=== PATIENT | female | born 1965 | race Hispanic/Latino ===

== ENCOUNTER 2018-06-30 11:10 | Emergency (ER) | payer MEDICAID ==
[2018-06-30] MEDS ORDERED: AZITHROMYCIN 0 MG/0 ML BAG ONE (12:10)
[2018-06-30] MEDS ORDERED: CEFTRIAXONE/SWI 1gm 0 GM/0 ML SYR ONE (12:10)
--- NOTE | 2018-06-30 12:44 | RAD REPORT ---
EXAM DESCRIPTION: RAD - Chest Pa And Lat (2 Views) - 06/30/2018 12:38 pm CLINICAL HISTORY: Cough;Congestion Chest pain. COMPARISON: Chest Pa And Lat (2 Views) dated 12/24/2017; Chest Single View dated 09/18/2016; Chest Singl e View dated 07/24/2016; Chest Single View dated 05/25/2016 FINDINGS: Poorly defined infiltrate is suspected in the lingula, likely representing developing pneu monia. Elsewhere, the lungs are clear. The heart is normal in size. No displaced fractures. IMPRESSION: Developing lingular infiltrate/ pneumonia.
--- NOTE | 2018-06-30 12:50 | EDPHYS ---
Physician Documentation [facility] Name: Kathy Whyte Age: 52 yrs Sex: Female : 1965 Arrival Date: 06/30/2018 Time: 11:14 Bed 17 Private MD: James Burton ED Physician Valeriano Vickers HPI: 06/30 12:47 This 52 yrs old Female presents to ER via Ambulatory with complaints of Cough, kb Congestion. 12:47 The patient or guardian reports cough, that is intermittent, described as mild, with no kb sputum. Onset: The symptoms/episode began/occurred Onset: The symptoms/episode began/occurred 5 day(s) ago. 12:48 Severity of symptoms: At their worst the symptoms were mild, moderate, in the emergency kb department the symptoms are unchanged. Modifying factors: The symptoms are alleviated by nothing, the symptoms are aggravated by nothing. Associated signs and symptoms: Pertinent positives: chest pain, with cough, rhinorrhea, Pertinent negatives: diarrhea, ear ache, fever, nausea, sore throat, vomiting. The patient has not experienced similar symptoms in the past. The patient has not recently seen a physician. Pt reports cough and congestion that started 5 days ago. Now having pain in her ribs when she coughs. 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 - Social history:: Smoking status: unknown. - Ebola Screening: : Patient denies exposure to infectious person Patient denies travel to an Ebola-affected area in the 21 days before illness onset. ROS: 12:47 Constitutional: Negative for fever, chills, and weight loss, ENT: Negative for injury, kb pain, and discharge, Neck: Negative for injury, pain, and swelling, Abdomen/GI: Negative for abdominal pain, nausea, vomiting, diarrhea, and constipation, Back: Negative for injury and pain, MS/Extremity: Negative for injury and deformity, Skin: Negative for injury, rash, and discoloration, Neuro: Negative for headache, weakness, numbness, tingling, and seizure. 12:47 Cardiovascular: Positive for chest pain, with cough, Negative for edema, orthopnea, palpitations, paroxysmal nocturnal dyspnea. 12:47 Respiratory: Positive for cough, with no reported sputum, Negative for dyspnea on exertion, hemoptysis, orthopnea, pleurisy, shortness of breath, sputum production, wheezing. Exam: 12:47 Constitutional: This is a well developed, well nourished patient who is awake, alert, kb and in no acute distress. Head/Face: Normocephalic, atraumatic. Chest/axilla: Normal chest wall appearance and motion. Nontender with no deformity. No lesions are appreciated. Cardiovascular: Regular rate and rhythm with a normal S1 and S2. No gallops, murmurs, or rubs. Normal PMI, no JVD. No pulse deficits. Respiratory: Lungs have equal breath sounds bilaterally, clear to auscultation and percussion. No rales, rhonchi or wheezes noted. No increased work of breathing, no retractions or nasal flaring. Abdomen/GI: Soft, non-tender, with normal bowel sounds. No distension or tympany. No guarding or rebound. No evidence of tenderness throughout. Back: No spinal tenderness. No costovertebral tenderness. Full range of motion. Skin: Warm, dry with normal turgor. Normal color with no rashes, no lesions, and no evidence of cellulitis. MS/ Extremity: Pulses equal, no cyanosis. Neurovascular intact. Full, normal range of motion. Neuro: Awake and alert, GCS 15, oriented to person, place, time, and situation. Cranial nerves II-XII grossly intact. Motor strength 5/5 in all extremities. Sensory grossly intact. Cerebellar exam normal. Normal gait. Vital Signs: 11:37 BP 110 / 55; Pulse 73; Resp 20; Temp 97.3; Pulse Ox 99% on R/A; Weight 104.33 kg; ph Height 5 ft. 2 in. (157.48 cm); Pain 7/10; 11:37 Body Mass Index 42.07 (104.33 kg, 157.48 cm) ph MDM: 11:39 Patient medically screened. kb 12:47 Data reviewed: vital signs, nurses notes. Data interpreted: Pulse oximetry: on room air kb is 99 %. Interpretation: normal. Counseling: I had a detailed discussion with the patient and/or guardian regarding: the historical points, exam findings, and any diagnostic results supporting the discharge/admit diagnosis, lab results, radiology results, the need for outpatient follow up, a family practitioner, to return to the emergency department if symptoms worsen or persist or if there are any questions or concerns that arise at home. 06/30 11:55 Order name: Flu; Complete Time: 12:41 kb 06/30 11:55 Order name: Chest Pa And Lat (2 Views) XRAY; Complete Time: 12:45 kb Administered Medications: 12:08 Drug: DuoNeb (3:1) (2.5 mg - 0.5 mg) 3 ml Route: Nebulizer; ss 12:56 Follow up: Response: No adverse reaction; Marked relief of symptoms; Wheezing diminishedss 12:52 Drug: Zithromax 500 mg Route: PO; ss 12:57 Follow up: Response: Medication administered at discharge. Disposition: 17:02 Co-signature as Attending Physician, Valeriano Vickers MD available for consultation at ps1 all times . Disposition: 06/30/18 12:49 Discharged to Home. Impression: Pneumonia, unspecified organism. - Condition is Stable. - Discharge Instructions: Community-Acquired Pneumonia, Adult, [id number]. - Prescriptions for Zithromax 500 mg Oral Tablet - take 1 tablet by ORAL route once daily for 5 days; 5 tablet. - Medication Reconciliation Form, Thank You Letter, Antibiotic Education, Prescription Opioid Use form. - Follow up: Emergency Department; When: As needed; Reason: Worsening of condition. Follow up: James Burton, DO; When: 2 - 3 days; Reason: Recheck today's complaints, Continuance of care, Re-evaluation by your physician. Signatures: Dispatcher [employer] Anna Marie Mcduffie, Faustina Milton RN RN ss Hall, Patricia, RN RN ph Singer, Phillip, MD MD ps1 Corrections: (The following items were deleted from the chart) 12:49 12:47 Onset: The symptoms/episode began/occurred kb kb 13:09 12:49 06/30/2018 12:49 Discharged to Home. Impression: Pneumonia, unspecified organism. ss Condition is Stable. Forms are Medication Reconciliation Form, Thank You Letter, Antibiotic Education, Prescription Opioid Use. Follow up: Emergency Department; When: As needed; Reason: Worsening of condition. Follow up: James Burton; When: 2 - 3 days; Reason: Recheck today's complaints, Continuance of care, Re-evaluation by your physician. kb
--- NOTE | 2018-06-30 12:50 | ER ---
Nurse's Notes [facility] Name: Kathy Whyte Age: 52 yrs Sex: Female : 1965 Arrival Date: 06/30/2018 Time: 11:14 Bed 17 Private MD: James Burton Diagnosis: Pneumonia, unspecified organism Presentation: 06/30 11:36 Presenting complaint: Patient states: Cough and congestion since Thurs, also c/ rib ph pain and SOB, denies fever, N/V/D. Transition of care: patient was not received from another setting of care. Onset of symptoms was June 30, 2018. Risk Assessment: Do you want to hurt yourself or someone else? Patient reports no desire to harm self or others. Initial Sepsis Screen: Does the patient meet any 2 criteria? No. Patient's initial sepsis screen is negative. Does the patient have a suspected source of infection? No. Patient's initial sepsis screen is negative. Care prior to arrival: None. 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 - Social history:: Smoking status: unknown. - Ebola Screening: : Patient denies exposure to infectious person Patient denies travel to an Ebola-affected area in the 21 days before illness onset. Screenin:25 Abuse screen: Denies threats or abuse. Denies injuries from another. Nutritional ss screening: No deficits noted. Tuberculosis screening: Never had TB. Fall Risk None identified. Assessment: 12:00 General: Appears comfortable, Behavior is calm, cooperative, quiet. General: Reports ss feeling ill for > 3 days, Denies fever. Pain: Complains of pain in chest wall Pain currently is 7 out of 10 on a pain scale. Quality of pain is described as tender, Is episodic. Neuro: Level of Consciousness is awake, alert, obeys commands, Oriented to person, place, time, situation. Cardiovascular: Heart tones S1 S2 present Capillary refill < 3 seconds is brisk in bilateral fingers Patient's skin is warm and dry. Respiratory: Airway is patent Respiratory effort is even, unlabored, Respiratory pattern is regular, symmetrical, Breath sounds with wheezes bilaterally. Respiratory: Reports shortness of breath on exertion cough that is hacking, persistent since x 5 days. GI: Patient currently denies abdominal pain, diarrhea, nausea, vomiting. : No signs and/or symptoms were reported regarding the genitourinary system. EENT: Oral mucosa is moist. Throat is clear Reports nasal congestion. Derm: Skin is pink, warm \T\ dry. normal. 12:25 Reassessment: Patient appears in no apparent distress at this time. Patient is alert, ss oriented x 3, equal unlabored respirations, skin warm/dry/pink. Vital Signs: 11:37 BP 110 / 55; Pulse 73; Resp 20; Temp 97.3; Pulse Ox 99% on R/A; Weight 104.33 kg; ph Height 5 ft. 2 in. (157.48 cm); Pain 7/10; 11:37 Body Mass Index 42.07 (104.33 kg, 157.48 cm) ph ED Course: 11:14 Patient arrived in ED. sb2 11:14 James Burton DO is Private Physician. sb2 11:37 Triage completed. ph 11:37 Arm band placed on. ph 11:39 Anna Marie Raya [facility]-C [facility]. kb 11:39 Valeriano Vickers MD is Attending Physician. kb 11:58 Faustina White, PRASHANT is Primary Nurse. ss 12:25 Patient has correct armband on for positive identification. Bed in low position. Call ss light in reach. Side rails up X 1. teletypesetter monitor on. Pulse ox on. NIBP on. 12:25 Flu Sent. ss 12:35 Chest Pa And Lat (2 Views) XRAY In Process Unspecified. EDMS 12:49 James Burton DO is Referral Physician. kb 12:57 No provider procedures requiring assistance completed. Patient did not have IV access ss during this emergency room visit. Administered Medications: 12:08 Drug: DuoNeb (3:1) (2.5 mg - 0.5 mg) 3 ml Route: Nebulizer; ss 12:56 Follow up: Response: No adverse reaction; Marked relief of symptoms; Wheezing diminishedss 12:52 Drug: Zithromax 500 mg Route: PO; 12:57 Follow up: Response: Medication administered at discharge. Outcome: 12:49 Discharge ordered by . kb 12:57 Condition: improved ss 12:57 Discharge instructions given to patient, Instructed on discharge instructions, follow up and referral plans. medication usage, Demonstrated understanding of instructions, follow-up care, medications, Prescriptions given X 1. 13:09 Patient left the ED. Signatures: Dispatcher [employer] EDMS Anna Marie Raya, PRINTED CIRCUIT BOARD ASSEMBLY REPAIRER-C GREGORIA-Faustina Suazo, PRASHANT RN Emily Allen RN RN [facility] [place] sb2
[2018-06-30] MEDS ORDERED: AZITHROMYCIN 250 MG TAB ONE (12:58)
[2018-06-30 13:21] VITALS: BP 110/55; TEMP 97.3; O2SAT 99
== END 2018-06-30 13:09 | disposition home or self-care (01) ==
LOC: ER 11:10
DX: J18.9 Pneumonia, unspecified organism (principal)
CPT/HCPCS: 71046; 87804; 94640; 99285; J0456; J0696

== ENCOUNTER 2018-11-30 15:30 | Emergency (ER) | payer MEDICAID ==
[2018-11-30] MEDS ORDERED: ONDANSETRON 4 MG/2 ML VIAL ONE (17:17)
[2018-11-30] MEDS ORDERED: FENTANYL CITR 100 MCG/2 ML ONE (17:17)
[2018-11-30] MEDS ORDERED: NA CHLORIDE 0.9% 1,000 ML ONE (17:17)
[2018-11-30 18:05] LABS: Absolute Lymphocytes (CBC) 1.3 K/uL (0.7-4.9); Absolute Monocytes 0.6 K/uL (0.1-1.3); Absolute Neutrophil 4.8 K/uL (1.8-8.0); Basophils % 0.3 % (0-1.3); Eosinophils % 0.8 % (0-4.4); Hematocrit 48.9 % (36.0-45.0); Lymphocytes % 18.8 % (15.3-44.8); MPV 8.1 fL (7.6-11.3); Monocytes % 8.9 % (3.3-12.3); RBC Red Blood Cell Count 5.71 M/uL (3.86-4.86)
[2018-11-30 18:56] LABS: ALT/SGPT 166 U/L (12-78); AST/SGOT 84 U/L (15-37); Albumin 3.3 g/dL (3.4-5.0); Alkaline Phosphatase 156 U/L (45-117); BUN Blood Urea Nitrogen 4 mg/dL (7-18); Bicarbonate 25 mmol/L (21-32); Bilirubin Direct < 0.1 mg/dL (0-0.2); Bilirubin Total 0.5 mg/dL (0.2-1.0); Glucose Level 108 mg/dL (74-106); Lipase 72 U/L (73-393); Potassium 3.4 mmol/L (3.5-5.1); Protein, Total 7.4 g/dL (6.4-8.2); Sodium Level 144 mmol/L (136-145)
[2018-11-30 19:32] LABS: Barbiturates NEGATIVE (NEGATIVE); Benzodiazepines NEGATIVE (NEGATIVE); Cocaine NEGATIVE (NEGATIVE); METHAMPHETAM NEGATIVE (NEGATIVE); Methadone NEGATIVE (NEGATIVE); Opiates NEGATIVE (NEGATIVE); Phencyclidine NEGATIVE (NEGATIVE); THC Cannibis NEGATIVE (NEGATIVE)
[2018-11-30 20:13] LABS: Urine Blood TRACE (NEG); Urine Glucose NEGATIVE (NEG); Urine Protein 2+ (NEG)
--- NOTE | 2018-11-30 20:19 | RAD REPORT ---
EXAM DESCRIPTION: [facility] Single View11/30/2018 8:12 pm CLINICAL HISTORY: cough COMPARISON: June 2018 FINDINGS: The lungs appear clear of acute infiltrate. The heart is normal size IMPRESSION: No acute abnormalities displayed
[2018-11-30 20:24] LABS: Urine Bacteria >50 /HPF (<20); Urine Culture Reflex Order REFLEXED; Urine RBC <5 /HPF (NONE SEEN)
--- NOTE | 2018-11-30 21:07 | EDPHYS ---
Physician Documentation [facility] Name: Kathy Whyte Age: 53 yrs Sex: Female : 1965 Arrival Date: 11/30/2018 Time: 15:31 Bed 5 Private MD: James Burton ED Physician Ike Liao HPI: 12/01 10:50 This 53 yrs old Female presents to ER via Ambulatory with complaints of gs Vomiting/Diarrhea. 10:50 Onset: The symptoms/episode began/occurred 3 day(s) ago, and became persistent. gs Possible causes: unknown. The symptoms are aggravated by nothing. The symptoms are alleviated by nothing. Associated signs and symptoms: Pertinent positives: fever. Severity of symptoms: At their worst the symptoms were severe in the emergency department the symptoms have improved markedly. The patient has experienced similar episodes in the past, a few times. The patient has not recently seen a physician. 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 - Social history:: Smoking status: Patient/guardian denies using tobacco. - Ebola Screening: : Patient denies exposure to infectious person Patient denies travel to an Ebola-affected area in the 21 days before illness onset. ROS: 12/01 10:50 All other systems are negative. gs Exam: 11/30 21:47 ECG was reviewed by the Attending Physician. gs 12/01 10:50 Head/Face: Normocephalic, atraumatic. Eyes: Pupils equal round and reactive to light, gs extra-ocular motions intact. Lids and lashes normal. Conjunctiva and sclera are non-icteric and not injected. Cornea within normal limits. Periorbital areas with no swelling, redness, or edema. ENT: Nares patent. No nasal discharge, no septal abnormalities noted. Tympanic membranes are normal and external auditory canals are clear. Oropharynx with no redness, swelling, or masses, exudates, or evidence of obstruction, uvula midline. Mucous membranes moist. Neck: Trachea midline, no thyromegaly or masses palpated, and no cervical lymphadenopathy. Supple, full range of motion without nuchal rigidity, or vertebral point tenderness. No Meningismus. Chest/axilla: Normal chest wall appearance and motion. Nontender with no deformity. No lesions are appreciated. Respiratory: Lungs have equal breath sounds bilaterally, clear to auscultation and percussion. No rales, rhonchi or wheezes noted. No increased work of breathing, no retractions or nasal flaring. Back: No spinal tenderness. No costovertebral tenderness. Full range of motion. Skin: Warm, dry with normal turgor. Normal color with no rashes, no lesions, and no evidence of cellulitis. MS/ Extremity: Pulses equal, no cyanosis. Neurovascular intact. Full, normal range of motion. Neuro: Awake and alert, GCS 15, oriented to person, place, time, and situation. Cranial nerves II-XII grossly intact. Motor strength 5/5 in all extremities. Sensory grossly intact. Cerebellar exam normal. Normal gait. Constitutional: The patient appears alert, awake, uncomfortable. Cardiovascular: Rate: tachycardic, Rhythm: regular, Pulses: no pulse deficits are appreciated, Heart sounds: normal. Abdomen/GI: Inspection: distension, is not seen, Palpation: abdomen is soft and non-tender, in all quadrants. Vital Signs: 11/30 16:00 BP 142 / 96; Pulse 129; Resp 21; Temp 99.1(TE); Pulse Ox 97% on R/A; Weight 104.33 kg; ss Height 5 ft. 3 in. (160.02 cm); Pain 8/10; 16:46 BP 121 / 65; Pulse 118; Resp 12; Pulse Ox 100% on R/A; tw2 17:47 BP 145 / 99; Pulse 112; Resp 21; Pulse Ox 98% on R/A; sv 18:24 BP 141 / 71; Pulse 106 MON; Resp 21; Pulse Ox 98% ; sv 19:26 BP 144 / 81; Pulse 104; Resp 19; Pulse Ox 99% on R/A; ea 20:00 BP 147 / 86; Pulse 101; Resp 19; Pulse Ox 99% on R/A; ea 21:23 BP 142 / 87; Pulse 100; Resp 18; Pulse Ox 99% ; ea 16:00 Body Mass Index 40.74 (104.33 kg, 160.02 cm) ss 18:24 Sinus tachycardia sv MDM: 16:59 Patient medically screened. 12/01 10:50 Differential diagnosis: Nonspecific abd pain, viral gastroenteritis, gastroenteritis, gs dehydration. Data reviewed: vital signs, nurses notes, lab test result(s), EKG, radiologic studies. Counseling: I had a detailed discussion with the patient and/or guardian regarding: the historical points, exam findings, and any diagnostic results supporting the discharge/admit diagnosis, lab results, the need for outpatient follow up. Response to treatment: the patient's symptoms have markedly improved after treatment, the patient's condition has returned to base line, patient is well hydrated. hr down. 11/30 17:01 Order name: Urine Drug Screen; Complete Time: 19:40 11/30 17:01 Order name: Urine Microscopic Only; Complete Time: 20:27 11/30 17:01 Order name: Basic Metabolic Panel; Complete Time: 19:40 11/30 17:01 Order name: CBC with Diff; Complete Time: 19:40 11/30 17:01 Order name: Hepatic Function; Complete Time: 19:40 11/30 17:01 Order name: Lipase; Complete Time: 19:40 11/30 17:01 Order name: Urine Test (obtain specimen); Complete Time: 21:14 11/30 18:07 Order name: EKG Electrocardiogram; Complete Time: 18:08 [facility] 11/30 19:11 Order name: Urine Dipstick--Ancillary (enter results); Complete Time: 20:27 ak 11/30 19:41 Order name: XRAY CXR (1 view); Complete Time: 20:27 11/30 20:25 Order name: Urine Culture [facility] 11/30 17:01 Order name: Urine Dipstick-Ancillary (obtain specimen); Complete Time: 21:14 11/30 17:01 Order name: IV Saline Lock; Complete Time: 17:48 11/30 17:01 Order name: Labs collected and sent; Complete Time: 17:48 EC/15 21:47 Rate is 119 beats/min. Rhythm is regular. [place] interval is normal. QRS interval is gs prolonged. T waves are Normal. No ST changes noted. Clinical impression: Abnormal EKG without significant change. Interpreted by me. Administered Medications: 17:44 Drug: NS 0.9% 1000 ml Route: IV; Rate: 1 bolus; Site: left forearm; sv 20:00 Follow up: Response: No adverse reaction; IV Status: Completed infusion; IV Intake: ea 1000ml 17:45 Drug: Zofran 4 mg Route: IVP; Site: left forearm; sv 18:00 Follow up: Response: No adverse reaction sv 17:45 Drug: fentaNYL (PF) 50 mcg Route: IVP; Site: left forearm; sv 18:00 Follow up: Response: No adverse reaction sv Disposition: 11/30/18 21:06 Discharged to Home. Impression: Vomiting, Dehydration. - Condition is Stable. - Discharge Instructions: Dehydration, Adult, Nausea and Vomiting, Adult. - Prescriptions for Zofran 4 mg Oral Tablet - take 1 tablet by ORAL route every 12 hours As needed; 6 tablet. - Medication Reconciliation Form, Thank You Letter, Antibiotic Education, Prescription Opioid Use form. - Follow up: Private Physician; When: 1 - 2 days; Reason: Re-evaluation by your physician. Signatures: Dispatcher [employer] EDMS Francisca Ruvalcaba RN RN sv Smirch, Shelby, RN RN ss Antunez, Elena, RN RN ea Starr, Gregory, MD MD gs Corrections: (The following items were deleted from the chart) 21:38 21:06 11/30/2018 21:06 Discharged to Home. Impression: Vomiting; Dehydration. Condition ea is Stable. Forms are Medication Reconciliation Form, Thank You Letter, Antibiotic Education, Prescription Opioid Use. Follow up: Private Physician; When: 1 - 2 days; Reason: Re-evaluation by your physician. gs
--- NOTE | 2018-11-30 21:07 | ER ---
Nurse's Notes [facility] Name: Kathy Whyte Age: 53 yrs Sex: Female : 1965 Arrival Date: 11/30/2018 Time: 15:31 Bed 5 Private MD: James Burton Diagnosis: Vomiting;Dehydration Presentation: 11/30 16:01 Presenting complaint: Patient states: abd pain, N/V/D x 4 days. Pt also reports racing ss pulse. Transition of care: patient was not received from another setting of care. Onset of symptoms was November 26, 2018. Risk Assessment: Do you want to hurt yourself or someone else? Patient reports no desire to harm self or others. Initial Sepsis Screen:. Care prior to arrival: None. 16:01 Acuity: ARI 2 ss 16:01 Method Of Arrival: Ambulatory ss 16:38 Initial Sepsis Screen: Does the patient meet any 2 criteria? RR > 20 per min. HR > 90 tw2 bpm. Yes Does the patient have a suspected source of infection? No. Patient's initial sepsis screen is negative. If YES to both, name of provider notified: Ike Liao MD. Triage Assessment: 16:44 General: Appears in no apparent distress. Respiratory: Onset: The symptoms/episode tw2 began/occurred 4 days ago, the patient has moderate shortness of breath. Respiratory: Reports shortness of breath. 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 - Social history:: Smoking status: Patient/guardian denies using tobacco. - Ebola Screening: : Patient denies exposure to infectious person Patient denies travel to an Ebola-affected area in the 21 days before illness onset. Screenin:37 Abuse screen: Denies threats or abuse. Nutritional screening: No deficits noted. tw2 Tuberculosis screening: No symptoms or risk factors identified. Fall Risk None identified. Assessment: 16:05 General: Appears in no apparent distress. obese, Behavior is calm, cooperative, tw2 appropriate for age. Pain: Complains of pain in abdomen. Neuro: Level of Consciousness is awake, alert, obeys commands, Oriented to person, place, time, situation. Cardiovascular: Heart tones S1 S2 Patient's skin is warm and dry. Rhythm is sinus tachycardia. Respiratory: Reports shortness of breath Airway is patent Respiratory effort is even, unlabored, Respiratory pattern is regular, symmetrical, Breath sounds are clear bilaterally. GI: Abdomen is round non-distended, obese, Bowel sounds present X 4 quads. Reports diarrhea, vomiting. : No signs and/or symptoms were reported regarding the genitourinary system. EENT: No signs and/or symptoms were reported regarding the EENT system. Derm: No signs and/or symptoms reported regarding the dermatologic system. Musculoskeletal: Range of motion: intact in all extremities. 16:46 Reassessment: Patient appears in no apparent distress at this time. No changes from tw2 previously documented assessment. Patient and/or family updated on plan of care and expected duration. Pain level reassessed. Patient is alert, oriented x 3, equal unlabored respirations, skin warm/dry/pink. 16:46 Reassessment: no orders at this time. tw2 17:35 Reassessment: Patient appears in no apparent distress at this time. No changes from sv previously documented assessment. Patient and/or family updated on plan of care and expected duration. Pain level reassessed. Patient is alert, oriented x 3, equal unlabored respirations, skin warm/dry/pink. 19:17 General: Appears in no apparent distress. Behavior is calm, cooperative, appropriate ea for age. Pain: Denies pain. Neuro: Level of Consciousness is awake, alert, obeys commands, Oriented to person, place, time, situation. Cardiovascular: Heart tones S1 S2 present Patient's skin is warm and dry. Respiratory: Airway is patent Respiratory effort is even, unlabored, Respiratory pattern is regular, symmetrical, Breath sounds are clear bilaterally. GI: Abdomen is round non-distended. : No signs and/or symptoms were reported regarding the genitourinary system. Derm: No signs and/or symptoms reported regarding the dermatologic system. 20:55 Reassessment: Patient and/or family updated on plan of care and expected duration. Pain ea level reassessed. Patient is alert, oriented x 3, equal unlabored respirations, skin warm/dry/pink. 21:29 Reassessment: Patient and/or family updated on plan of care and expected duration. Pain ea level reassessed. Patient is alert, oriented x 3, equal unlabored respirations, skin warm/dry/pink. Discharge instructions given to patient, verbalized the understanding of instruction. 21:36 Reassessment: Patient and/or family updated on plan of care and expected duration. Pain ea level reassessed. Patient is alert, oriented x 3, equal unlabored respirations, skin warm/dry/pink. Pt left ED ambulatory tolerating well, pt reports significant other awaiting for her in the lobby. Vital Signs: 16:00 BP 142 / 96; Pulse 129; Resp 21; Temp 99.1(TE); Pulse Ox 97% on R/A; Weight 104.33 kg; ss Height 5 ft. 3 in. (160.02 cm); Pain 8/10; 16:46 BP 121 / 65; Pulse 118; Resp 12; Pulse Ox 100% on R/A; tw2 17:47 BP 145 / 99; Pulse 112; Resp 21; Pulse Ox 98% on R/A; sv 18:24 BP 141 / 71; Pulse 106 MON; Resp 21; Pulse Ox 98% ; sv 19:26 BP 144 / 81; Pulse 104; Resp 19; Pulse Ox 99% on R/A; ea 20:00 BP 147 / 86; Pulse 101; Resp 19; Pulse Ox 99% on R/A; ea 21:23 BP 142 / 87; Pulse 100; Resp 18; Pulse Ox 99% ; ea 16:00 Body Mass Index 40.74 (104.33 kg, 160.02 cm) ss 18:24 Sinus tachycardia sv ED Course: 15:31 Patient arrived in ED. as 15:32 James Burton DO is Private Physician. as 16:02 Triage completed. ss 16:03 Arm band placed on right wrist. ss 16:05 Bed in low position. Adult w/ patient. front desk monitor on. Pulse ox on. NIBP on. tw2 16:21 Francisca Ruvalcaba, PRASHANT is Primary Nurse. sv 16:32 Ike Liao MD is Attending Physician. gs 16:37 Cristina Mixon, PRASHANT is Primary Nurse. tw2 16:39 EKG done, by power tool repair technician. reviewed by Lionel Rodrigez MD. sm3 17:35 Missed attempt(s): 22 gauge in right forearm. Bleeding controlled, band aid applied, sv catheter tip intact. 17:40 Initial lab(s) drawn, by me, sent to lab. Inserted saline lock: 24 gauge in left sv forearm, using aseptic technique. Blood collected. Flushed left forearm with 5 ml normal saline. 19:02 Report given to PRASHANT Mcclain and PRASHANT Rodriguez. tw2 19:09 Primary Nurse role handed off by Cristina Mixon RN tw2 19:17 Jennifer Johnson RN is Primary Nurse. ea 20:12 XRAY CXR (1 view) In Process Unspecified. EDMS 21:21 No provider procedures requiring assistance completed. ea 21:28 IV discontinued, intact, bleeding controlled, No redness/swelling at site. Pressure ea dressing applied. Administered Medications: 17:44 Drug: NS 0.9% 1000 ml Route: IV; Rate: 1 bolus; Site: left forearm; sv 20:00 Follow up: Response: No adverse reaction; IV Status: Completed infusion; IV Intake: ea 1000ml 17:45 Drug: Zofran 4 mg Route: IVP; Site: left forearm; sv 18:00 Follow up: Response: No adverse reaction sv 17:45 Drug: fentaNYL (PF) 50 mcg Route: IVP; Site: left forearm; sv 18:00 Follow up: Response: No adverse reaction sv Intake: 20:00 IV: 1000ml; Total: 1000ml. ea Outcome: 21:06 Discharge ordered by . 21:28 Discharge instructions given to patient, Instructed on discharge instructions, follow ea up and referral plans. medication usage, Demonstrated understanding of instructions, follow-up care, medications, Prescriptions given X 1. 21:36 Discharged to home ambulatory, with significant other. ea 21:36 Condition: improved 21:38 Patient left the ED. ea Signatures: Dispatcher [employer] EDMS Francisca Ruvalcaba RN RN sv Martinez, Amelia as Smirch, Shelby, RN RN Cristina Mixon RN RN tw2 Jennifer Johnson RN RN ea Starr, Gregory, MD MD Adela Felix 3
[2018-11-30 21:54] VITALS: TEMP 99.1
[2018-11-30 21:58] VITALS: O2SAT 99
[2018-11-30 22:01] VITALS: BP 142/87
--- NOTE | 2018-12-01 05:50 | EKG ---
Test Date: 2018-11-30 Test Time: 16:15:05 Industrial Safety Engineer: DIPTI MEASUREMENT RESULTS: Intervals: Rate: 119 FL: 158 QRSD: 110 QT: 320 QTc: 450 [place]: P: 59 FL: 158 QRS: 54 T: 19 INTERPRETIVE STATEMENTS: Sinus tachycardia Right bundle branch block Abnormal ECG Compared to ECG 09/18/2016 19:13:01 Sinus rhythm no longer present Electronically Signed On 12-01-18 05:50:30 CDT by Obi Bae
== END 2018-11-30 21:38 | disposition home or self-care (01) ==
LOC: ER 15:30
DX: E86.0 Dehydration (principal); R11.10 Vomiting, unspecified; R00.0 Tachycardia, unspecified; I45.10 Unspecified right bundle-branch block; R94.31 Abnormal electrocardiogram [ECG] [EKG]
CPT/HCPCS: 36415; 71045; 80048; 80076; 80307; 81003; 81015; 83690; 85025; 87086; 87088; 93005; 96361; 96374; 96375; 99285; J2405; J3010; J7030

== ENCOUNTER 2018-12-01 11:50 | Inpatient (IN) | payer MEDICAID ==
--- NOTE | 2018-12-01 12:53 | EDPHYS ---
Physician Documentation [facility] Name: Kathy Whyte Age: 53 yrs Sex: Female : 1965 Arrival Date: 12/01/2018 Time: 11:52 Bed 17 Private MD: Micheal [facility] ED Physician Lionel Rodrigez HPI: 12/01 12:47 This 53 yrs old Female presents to ER via Ambulatory with complaints of Blood myra Pressure Problem. 12:47 The patient presents with abdominal pain in the upper abdomen, in the lower abdomen. myra Onset: The symptoms/episode began/occurred 2 day(s) ago. The patient presents to the emergency department with nausea, vomiting, diarrhea, that is continuous. Onset: The symptoms/episode began/occurred 2 day(s) ago. Possible causes: unknown. The symptoms are aggravated by movement, The symptoms are alleviated by nothing. remaining still. Associated signs and symptoms: Pertinent positives: nausea, vomiting. Modifying factors: The symptoms are alleviated by nothing. 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 - Social history:: Smoking status: . - Family history:: not pertinent. - Ebola Screening: : Patient denies travel to an Ebola-affected area in the 21 days before illness onset. ROS: 12:47 Constitutional: Negative for fever, chills, and weight loss, Eyes: Negative for injury, myra pain, redness, and discharge, ENT: Negative for injury, pain, and discharge, Neck: Negative for injury, pain, and swelling, Cardiovascular: Negative for chest pain, palpitations, and edema, Respiratory: Negative for shortness of breath, cough, wheezing, and pleuritic chest pain, Back: Negative for injury and pain, : Negative for injury, bleeding, discharge, and swelling, MS/Extremity: Negative for injury and deformity, Skin: Negative for injury, rash, and discoloration, Neuro: Negative for headache, weakness, numbness, tingling, and seizure, Psych: Negative for depression, anxiety, suicide ideation, homicidal ideation, and hallucinations, Allergy/Immunology: Negative for hives, rash, and allergies, Endocrine: Negative for neck swelling, polydipsia, polyuria, polyphagia, and marked weight changes, Hematologic/Lymphatic: Negative for swollen nodes, abnormal bleeding, and unusual bruising. 12:47 Abdomen/GI: Positive for nausea and vomiting, diarrhea. Exam: 12:47 Constitutional: This is a well developed, well nourished patient who is awake, alert, myra and in no acute distress. Head/Face: Normocephalic, atraumatic. Eyes: Pupils equal round and reactive to light, extra-ocular motions intact. Lids and lashes normal. Conjunctiva and sclera are non-icteric and not injected. Cornea within normal limits. Periorbital areas with no swelling, redness, or edema. ENT: Nares patent. No nasal discharge, no septal abnormalities noted. Tympanic membranes are normal and external auditory canals are clear. Oropharynx with no redness, swelling, or masses, exudates, or evidence of obstruction, uvula midline. Mucous membranes moist. Neck: Trachea midline, no thyromegaly or masses palpated, and no cervical lymphadenopathy. Supple, full range of motion without nuchal rigidity, or vertebral point tenderness. No Meningismus. Chest/axilla: Normal chest wall appearance and motion. Nontender with no deformity. No lesions are appreciated. Cardiovascular: Regular rate and rhythm with a normal S1 and S2. No gallops, murmurs, or rubs. Normal PMI, no JVD. No pulse deficits. Respiratory: Lungs have equal breath sounds bilaterally, clear to auscultation and percussion. No rales, rhonchi or wheezes noted. No increased work of breathing, no retractions or nasal flaring. Abdomen/GI: Soft, non-tender, with normal bowel sounds. No distension or tympany. No guarding or rebound. No evidence of tenderness throughout. Back: No spinal tenderness. No costovertebral tenderness. Full range of motion. Skin: Warm, dry with normal turgor. Normal color with no rashes, no lesions, and no evidence of cellulitis. MS/ Extremity: Pulses equal, no cyanosis. Neurovascular intact. Full, normal range of motion. Neuro: Awake and alert, GCS 15, oriented to person, place, time, and situation. Cranial nerves II-XII grossly intact. Motor strength 5/5 in all extremities. Sensory grossly intact. Cerebellar exam normal. Normal gait. Psych: Awake, alert, with orientation to person, place and time. Behavior, mood, and affect are within normal limits. Vital Signs: 11:58 BP 79 / 41; Pulse 87; Resp 18; Temp 99.6(O); Pulse Ox 98% on R/A; Weight 104.33 kg; tw2 Height 5 ft. 3 in. (160.02 cm); Pain 0/10; 12:52 BP 89 / 71 Supine; Pulse 82; Resp 17; Pulse Ox 99% on R/A; tw2 14:00 BP 80 / 47 Supine; Pulse 76; Resp 17; Pulse Ox 100% on R/A; tw2 15:14 BP 86 / 60 Supine; Pulse 79; Resp 17; Pulse Ox 100% on R/A; tw2 16:28 BP 84 / 64 Supine (man/); Pulse 83; Resp 17; Pulse Ox 100% ; tw2 11:58 Body Mass Index 40.74 (104.33 kg, 160.02 cm) tw2 11:58 provider aware, pt is asymptomatic at this time,nad tw2 12:52 provider aware of bp, pt is asymptomatic at this time, nad tw2 14:00 provider aware, pt is asymptomatic at this time, nad tw2 15:14 provider aware, pt is asymptomatic at this time, nad tw2 Procedures: 15:40 Peripheral line: by aseptic technique a peripheral line was placed in the right myra external jugular vein, left external jugular vein, failed. MDM: 12:07 Patient medically screened. [facility] 12:50 Data reviewed: vital signs, nurses notes, lab test result(s), EKG, radiologic studies, [facility] plain films. 12/01 12:35 Order name: Basic Metabolic Panel; Complete Time: 15:04 [facility] 12/01 12:35 Order name: CBC with Diff [facility] 12/01 12:35 Order name: LFT's; Complete Time: 15:04 [facility] 12/01 12:35 Order name: Magnesium; Complete Time: 15:04 [facility] 12/01 12:35 Order name: NT PRO-BNP; Complete Time: 15:04 [facility] 12/01 12:35 Order name: PT-INR; Complete Time: 14:15 [facility] 12/01 12:35 Order name: Troponin (emerg Dept Use Only); Complete Time: 15:04 [facility] 12/01 12:35 Order name: XRAY Chest (1 view) [facility] 12/01 12:35 Order name: Lipase; Complete Time: 15:04 [facility] 12/01 12:35 Order name: UDS [facility] 12/01 12:35 Order name: Urine Culture [facility] 12/01 12:50 Order name: Stool Culture [facility] 12/01 12:50 Order name: Fecal Leukocyte Stain [facility] 12/01 14:27 Order name: RAD; Complete Time: 14:47 EDIL 12/01 12:35 Order name: EKG; Complete Time: 12:36 [facility] 12/01 12:35 Order name: Cardiac monitoring; Complete Time: 12:51 [facility] 12/01 12:35 Order name: EKG - Nurse/Tech; Complete Time: 12:51 [facility] 12/01 12:35 Order name: O2 Per Protocol; Complete Time: 12:52 [facility] 12/01 12:35 Order name: O2 Sat Monitoring; Complete Time: 13:03 [facility] 12/01 14:48 Order name: CT; Complete Time: 15:04 EDIL 12/01 14:29 Order name: Labs - recollect needed; Complete Time: 15:55 em1 Administered Medications: 14:00 Drug: Phenergan 12.5 mg Route: IVP; Site: left upper arm; tw2 15:07 Follow up: Response: No adverse reaction tw2 14:02 Drug: Pepcid 20 mg Route: IVP; Site: left upper arm; tw2 15:07 Follow up: Response: No adverse reaction tw2 14:04 Drug: NS 0.9% 1000 ml Route: IV; Rate: 1 bolus; Site: left upper arm; tw2 15:30 Follow up: Response: No adverse reaction; IV Status: Completed infusion; IV Intake: tw2 1000ml 16:20 Follow up: Response: No adverse reaction; IV Intake: 1000ml tw2 15:35 Drug: Potassium Chloride 20 mEq Route: IV; Rate: per protocol; Site: right upper arm; tw2 16:31 Follow up: IV Status: Infusion continued upon admission tw2 15:35 Drug: NS 0.9% with KCl 20 mEq/L 1000 ml Route: IV; Rate: 125 ml/hr; Site: right jugular;tw2 16:30 Follow up: IV Status: Infusion continued upon admission tw2 15:35 Drug: Magnesium Sulfate 2 grams Route: IVPB; Infused Over: 2 hrs; Site: right jugular; tw2 16:30 Follow up: IV Status: Infusion continued upon admission tw2 15:55 Drug: Potassium Chloride 20 mEq Route: IV; Rate: per protocol; Site: right jugular; tw2 16:29 Follow up: IV Status: Infusion continued upon admission tw2 15:56 Drug: NS 0.9% 1000 ml Route: IV; Rate: 1 bolus; Site: right upper arm; tw2 16:30 Follow up: IV Status: Infusion continued upon admission tw2 Disposition: 12/01/18 12:52 Hospitalization ordered by Jonny Garduno for Inpatient Admission. Preliminary diagnosis are Vomiting, Diarrhea, unspecified, Hypotension, Weakness, Hypomagnesemia, Hypokalemia. - Bed requested for Telemetry/MedSurg (Inpatient). - Status is Inpatient Admission. tw2 - Condition is Fair. - Problem is new. - Symptoms have improved. UTI on Admission? No Signatures: Dispatcher [employer] EDMS Lionel Rodrigez MD MD cha Martinez, Eric em1 Marlon Ennis RN RN Cristina Mixon RN RN tw2 Corrections: (The following items were deleted from the chart) 12:52 12:52 Hospitalization Ordered by Jonny Garduno MD for Observation. Preliminary diagnosis myra is Vomiting; Diarrhea, unspecified; Hypotension; Weakness. Bed requested for Telemetry/MedSurg (observation). Status is Observation. Condition is Fair. Problem is new. Symptoms have improved. UTI on Admission? No. myra 14:41 12:52 12/01/2018 12:52 Hospitalization Ordered by Jonny Garduno MD for Inpatient em1 Admission. Preliminary diagnosis is Vomiting; Diarrhea, unspecified; Hypotension; Weakness. Bed requested for Telemetry/MedSurg (Inpatient). Status is Inpatient Admission. Condition is Fair. Problem is new. Symptoms have improved. UTI on Admission? No. myra 15:06 14:41 12/01/2018 12:52 Hospitalization Ordered by Jonny Garduno MD for Inpatient myra Admission. Preliminary diagnosis is Vomiting; Diarrhea, unspecified; Hypotension; Weakness. Bed requested for Telemetry/MedSurg (Inpatient). Status is Inpatient Admission. Condition is Fair. Problem is new. Symptoms have improved. UTI on Admission? No. em1 16:33 15:06 12/01/2018 12:52 Hospitalization Ordered by Jonny Garduno MD for Inpatient tw2 Admission. Preliminary diagnosis is Vomiting; Diarrhea, unspecified; Hypotension; Weakness; Hypomagnesemia; Hypokalemia. Bed requested for Telemetry/MedSurg (Inpatient). Status is Inpatient Admission. Condition is Fair. Problem is new. Symptoms have improved. UTI on Admission? No. myra
--- NOTE | 2018-12-01 12:53 | ER ---
Nurse's Notes [facility] Name: Kathy Whyte Age: 53 yrs Sex: Female : 1965 Arrival Date: 12/01/2018 Time: 11:52 Bed 17 Private MD: James Burton Diagnosis: Vomiting;Diarrhea, unspecified;Hypotension;Weakness;Hypomagnesemia;Hypokalemia Presentation: 12/01 11:55 Presenting complaint: Patient states: i was here yesterday for dehydration, my BP was hj low, took my meds this AM and then took my BP- 88/54; now i feel dizzy and numbness on my R leg; denies chest pain;. Transition of care: patient was not received from another setting of care. Onset of symptoms was December 01, 2018. Risk Assessment: Do you want to hurt yourself or someone else? Patient reports no desire to harm self or others. Initial Sepsis Screen: Does the patient meet any 2 criteria? No. Patient's initial sepsis screen is negative. Does the patient have a suspected source of infection? No. Patient's initial sepsis screen is negative. Care prior to arrival: None. 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 - Social history:: Smoking status: . - Family history:: not pertinent. - Ebola Screening: : Patient denies travel to an Ebola-affected area in the 21 days before illness onset. Screenin:06 Abuse screen: Denies threats or abuse. Nutritional screening: No deficits noted. tw2 Tuberculosis screening: No symptoms or risk factors identified. Fall Risk Secondary diagnosis (15 points) dizziness today. Assessment: 12:10 General: Appears in no apparent distress. obese, Behavior is calm, cooperative, tw2 appropriate for age. Pain: Complains of pain in headache. Neuro: Level of Consciousness is awake, alert, obeys commands, Oriented to person, place, time, situation, Reports dizziness. Cardiovascular: Heart tones S1 S2 Patient's skin is warm and dry. Respiratory: Airway is patent Respiratory effort is even, unlabored, Respiratory pattern is regular, symmetrical, Breath sounds are clear bilaterally. GI: Abdomen is round non-distended, obese, Bowel sounds present X 4 quads. : No signs and/or symptoms were reported regarding the genitourinary system. EENT: No signs and/or symptoms were reported regarding the EENT system. Derm: No signs and/or symptoms reported regarding the dermatologic system. Musculoskeletal: Range of motion: intact in all extremities. 12:55 Reassessment: Patient appears in no apparent distress at this time. No changes from tw2 previously documented assessment. Patient and/or family updated on plan of care and expected duration. Pain level reassessed. 14:00 Reassessment: Patient appears in no apparent distress at this time. No changes from tw2 previously documented assessment. Patient and/or family updated on plan of care and expected duration. Pain level reassessed. 15:15 Reassessment: Patient appears in no apparent distress at this time. No changes from tw2 previously documented assessment. Patient and/or family updated on plan of care and expected duration. Pain level reassessed. pt alert and oriented x 3. Vital Signs: 11:58 BP 79 / 41; Pulse 87; Resp 18; Temp 99.6(O); Pulse Ox 98% on R/A; Weight 104.33 kg; tw2 Height 5 ft. 3 in. (160.02 cm); Pain 0/10; 12:52 BP 89 / 71 Supine; Pulse 82; Resp 17; Pulse Ox 99% on R/A; tw2 14:00 BP 80 / 47 Supine; Pulse 76; Resp 17; Pulse Ox 100% on R/A; tw2 15:14 BP 86 / 60 Supine; Pulse 79; Resp 17; Pulse Ox 100% on R/A; tw2 16:28 BP 84 / 64 Supine (man/); Pulse 83; Resp 17; Pulse Ox 100% ; tw2 11:58 Body Mass Index 40.74 (104.33 kg, 160.02 cm) tw2 11:58 provider aware, pt is asymptomatic at this time,nad tw2 12:52 provider aware of bp, pt is asymptomatic at this time, nad tw2 14:00 provider aware, pt is asymptomatic at this time, nad tw2 15:14 provider aware, pt is asymptomatic at this time, nad tw2 ED Course: 11:52 Patient arrived in ED. as 11:52 James Burton DO is Private Physician. as 11:57 Triage completed. hj 11:59 Arm band placed on left wrist. hj 12:02 Placed in gown. Bed in low position. Side rails up X2. monitoring coordinator on. Pulse ox on. tw2 NIBP on. 12:07 Lionel Rodrigez MD is Attending Physician. myra 12:50 Cristina Mixon RN is Primary Nurse. tw2 12:51 Jonny Garduno MD is Hospitalizing Provider. myra 13:03 Missed attempt(s): 24 gauge in right upper arm. jb1 13:05 EKG done, by automation technician. reviewed by Lionel Rodrigez MD. sm3 13:42 Missed attempt(s): 24 gauge in left forearm. blue top collected and sent, PRASHANT Glover at tw2 bedside attempted iv line at this time.. Bleeding controlled, band aid applied, catheter tip intact. 13:50 Inserted saline lock: 24 gauge in left upper arm, using aseptic technique. iw 14:07 Radiology exam delayed due to patient in with nurse and getting xray at this time. jg6 15:30 Inserted saline lock: 22 gauge in right upper arm, using aseptic technique. iw 15:30 Inserted saline lock: 18 gauge in right EJ, using aseptic technique. ,using aseptic tw2 technique. per Dr. Rodrigez Blood collected. Patient admitted, IV remains in place. 16:32 No provider procedures requiring assistance completed. tw2 Administered Medications: 14:00 Drug: Phenergan 12.5 mg Route: IVP; Site: left upper arm; tw2 15:07 Follow up: Response: No adverse reaction tw2 14:02 Drug: Pepcid 20 mg Route: IVP; Site: left upper arm; tw2 15:07 Follow up: Response: No adverse reaction tw2 14:04 Drug: NS 0.9% 1000 ml Route: IV; Rate: 1 bolus; Site: left upper arm; tw2 15:30 Follow up: Response: No adverse reaction; IV Status: Completed infusion; IV Intake: tw2 1000ml 16:20 Follow up: Response: No adverse reaction; IV Intake: 1000ml tw2 15:35 Drug: Potassium Chloride 20 mEq Route: IV; Rate: per protocol; Site: right upper arm; tw2 16:31 Follow up: IV Status: Infusion continued upon admission tw2 15:35 Drug: NS 0.9% with KCl 20 mEq/L 1000 ml Route: IV; Rate: 125 ml/hr; Site: right jugular;tw2 16:30 Follow up: IV Status: Infusion continued upon admission tw2 15:35 Drug: Magnesium Sulfate 2 grams Route: IVPB; Infused Over: 2 hrs; Site: right jugular; tw2 16:30 Follow up: IV Status: Infusion continued upon admission tw2 15:55 Drug: Potassium Chloride 20 mEq Route: IV; Rate: per protocol; Site: right jugular; tw2 16:29 Follow up: IV Status: Infusion continued upon admission tw2 15:56 Drug: NS 0.9% 1000 ml Route: IV; Rate: 1 bolus; Site: right upper arm; tw2 16:30 Follow up: IV Status: Infusion continued upon admission tw2 Intake: 15:30 IV: 1000ml; Total: 1000ml. tw2 16:20 IV: 1000ml; Total: 2000ml. tw2 Outcome: 12:52 Decision to Hospitalize by Provider. myra 16:31 Admitted to Med/surg accompanied by tech, via stretcher, room 208, with chart, Report tw2 called to PRASHANT ADKINS 16:31 Condition: stable 16:31 Instructed on the need for admit. 16:33 Patient left the ED. tw2 Signatures: Tim Villa jb1 Lionel Rodrigez MD MD cha Martinez, Amelia as Williams, Irene, Marlon Tineo RN, RN RN hj Wise, Tara, RN RN tw2 Adela Felix 3 Brittany Islas jg6 Corrections: (The following items were deleted from the chart) 12:00 11:58 Pulse 87bpm; Resp 18bpm; Pulse Ox 98% RA; Temp 99.6F Oral; 104.33 kg; Height 5 hj ft. 3 in.; BMI: 40.7; Pain 0/10; hj 15:15 15:14 BP 86 / 60; Pulse 79bpm; Resp 17bpm; Pulse Ox 100% RA; tw2 tw2 15:21 11:58 BP 79 / 41; Pulse 87bpm; Resp 18bpm; Pulse Ox 98% RA; Temp 99.6F Oral; 104.33 kg; tw2 Height 5 ft. 3 in.; BMI: 40.7; Pain 0/10; hj 15:21 12:52 BP 89 / 71; Pulse 82bpm; Resp 17bpm; Pulse Ox 99% RA; tw2 tw2 15:21 15:14 BP 86 / 60 Supine; Pulse 79bpm; Resp 17bpm; Pulse Ox 100% RA; tw2 tw2
[2018-12-01] MEDS ORDERED: PROMETHAZINE 25 MG/ML VIAL ONE (13:08)
[2018-12-01] MEDS ORDERED: NA CHLORIDE 0.9% 1,000 ML ONE ×2 (13:08→16:06)
[2018-12-01] MEDS ORDERED: FAMOTIDINE 20 MG/2 ML VIAL IV ONE (13:08)
[2018-12-01 13:58] LABS: Protime INR 1.07
--- NOTE | 2018-12-01 14:26 | RAD REPORT ---
EXAM DESCRIPTION: Avni Single View12/01/2018 2:08 pm CLINICAL HISTORY: Cough COMPARISON: November 30, 2018 FINDINGS: The lungs appear clear of acute infiltrate. The heart is normal size IMPRESSION: No acute abnormalities displayed
--- NOTE | 2018-12-01 14:47 | RAD REPORT ---
EXAM DESCRIPTION: CT - Head Brain Wo Cont - 12/01/2018 2:28 pm CLINICAL HISTORY: Numbness COMPARISON: 2015 TECHNIQUE: Computed axial tomography of the head was obtained. IV contrast was not requested. All CT scans are performed using dose optimization technique as appropriate and may include automated exposure control or mA/KV adjustment according to patient size. FINDINGS: An intracranial bleed is not seen . The ventricles are normal in caliber. No extra-axial fluid collection is noted. Low-density within the right cerebrum is unchanged compatible with an old infarction. Fluid within the sinuses/ mastoids is not seen. IMPRESSION: No acute intracranial abnormality is seen. If patient's symptoms persist MRI of the bra in would be recommended.
[2018-12-01 14:57] LABS: Albumin 3.1 g/dL (3.4-5.0); Bilirubin Direct 0.1 mg/dL (0-0.2); Bilirubin Total 0.3 mg/dL (0.2-1.0); Magnesium 1.3 mg/dL (1.8-2.4); Protein, Total 6.6 g/dL (6.4-8.2); Troponin (Emerg Dept Use Only) 0.02 ng/mL (0.0-0.045)
[2018-12-01 14:59] LABS: Potassium 2.8 mmol/L (3.5-5.1)
[2018-12-01] MEDS ORDERED: KCL 20 MEQ/100 mL IVPB 20 MEQ/100 ML BAG IV ONE ×2 (15:41→16:06)
[2018-12-01] MEDS ORDERED: NS KCL 20MEQ 1,000 ML IV ONE (15:41)
[2018-12-01] MEDS ORDERED: Magnesium Sulfate 2gm IVPB 2 G/50 ML BAG IV ONE (15:41)
[2018-12-01 16:06] LABS: Absolute Lymphocytes (CBC) 2.6 K/uL (0.7-4.9); Absolute Monocytes 1.3 K/uL (0.1-1.3); Absolute Neutrophil 4.4 K/uL (1.8-8.0); Basophils % 0.3 % (0-1.3); Eosinophils % 1.6 % (0-4.4); Hematocrit 32.5 % (36.0-45.0); Lymphocytes % 31.3 % (15.3-44.8); Monocytes % 14.9 % (3.3-12.3); RBC Red Blood Cell Count 3.76 M/uL (3.86-4.86)
--- NOTE | 2018-12-01 17:11 | EKG ---
Test Date: 2018-12-01 Test Time: 12:52:07 Outbound Sales Agent: MONICA MEASUREMENT RESULTS: Intervals: Rate: 80 NH: 166 QRSD: 114 QT: 412 QTc: 475 [place]: P: 53 NH: 166 QRS: 28 T: 23 INTERPRETIVE STATEMENTS: Normal sinus rhythm Right bundle branch block Abnormal ECG Compared to ECG 11/30/2018 16:15:05 Sinus tachycardia no longer present Electronically Signed On 12-01-18 17:10:24 CDT by Obi Bae
[2018-12-01] MEDS ORDERED: ALBUTEROL 2.5 MG/3 ML NEB SOL NEB PRN (17:19)
[2018-12-01 18:06] VITALS: BMI 40.7
[2018-12-01] MEDS: ONDANSETRON 4 MG/2 ML VIAL IV PRN (18:32)
[2018-12-01] MEDS: NA CHLORIDE 0.9% 1,000 ML IV SCH (18:32)
[2018-12-01] MEDS: ENOXAPARIN 40 MG/0.4 ML SQ SCH (18:32)
[2018-12-01 21:13] LABS: Magnesium 1.8 mg/dL (1.8-2.4)
[2018-12-01 21:18] LABS: Potassium 2.8 mmol/L (3.5-5.1)
[2018-12-01 21:26] LABS: Urine Appearance CLOUDY; Urine Bilirubin NEGATIVE (NEG); Urine Blood 2+ (NEG); Urine Color YELLOW; Urine Glucose NEGATIVE (NEG); Urine Protein NEGATIVE (NEG); Urine Specific Gravity <=1.005 (1.005-1.030); Urine Urobilinogen 0.2 mg/dL (0.2-1.0); Urine pH 6.5 (5.0-7.0)
[2018-12-01 21:32] LABS: Urine Microscopic Reflex ORDER UMIC
[2018-12-01] MEDS: ACETAMINOPHEN 500 MG TAB PO PRN (21:33)
[2018-12-01 21:38] LABS: Urine Bacteria 20-50 /HPF (<20); Urine Culture Reflex Order REFLEXED; Urine Mucus 1+ /HPF (NONE SEEN)
[2018-12-01 21:43] LABS: Barbiturates NEGATIVE (NEGATIVE); Benzodiazepines NEGATIVE (NEGATIVE); Cocaine NEGATIVE (NEGATIVE); METHAMPHETAM NEGATIVE (NEGATIVE); Methadone NEGATIVE (NEGATIVE); Opiates NEGATIVE (NEGATIVE); Phencyclidine NEGATIVE (NEGATIVE); THC Cannibis NEGATIVE (NEGATIVE)
[2018-12-01] MEDS ORDERED: MAGNESIUM SULFATE 1 gm IVPB 1 GM/100 ML BAG IV ONE (22:00)
[2018-12-01] MEDS: KCL 20 MEQ/100 mL IVPB 20 MEQ/100 ML BAG IV SCH (22:11)
[2018-12-02] MEDS: KCL 20 MEQ/100 mL IVPB 20 MEQ/100 ML BAG IV SCH ×2 (00:01→01:59)
--- NOTE | 2018-12-02 01:02 | HP ---
Date of Admission: 12/01/2018 Chief Complaint: Abdominal pain, nausea, vomiting, and diarrhea. Primary Care Physician: Dr. James Burton. Hpi: The patient is a 53-year-old female with past medical history of hypertension, hyperlipidemia, history of CVA, antiphospholipid syndrome, was previously on chronic anticoagulation. The patient co mes in with complaints of nausea, vomiting, diarrhea, generalized weakness. The patient states that this has been ongoing for the past 4 days. The patient does report some palpitations, dizziness and dehydration, unable to tolerate p.o. intake. The patient states her blood pressure was on the low si de and she was seen in the ER yesterday, was given IV fluids. Her blood pressure was in the 130s whi ch is low for her and her heart rate was elevated. She was told to continue her blood pressure medic ations and this morning took her medications, and had a blood pressure in the 80s systolic. The tunde ent called her PCP's office and was told to come into the ER for further evaluation. The patient's s ymptoms are constant, moderate, progressively worsening. She denies any outside travel. No unusual foods, well water. The patient does report and grandson as well as daughter have been sick w ith similar symptoms of GI upset. The patient was then referred for admission. In the ER, her vital signs showed a blood pressure of 70s systolic over 41. She was given IV fluids, improved to 89/71. The patient's workup still pending. Yesterday's labs were unremarkable. Did have some mild hypokal emia. Past Medical History: Hypertension, hyperlipidemia, history of CVA in 2011 with residual left-sided weakness, encephalitis in 2014, antiphospholipid syndrome, was on chronic anticoagulation, depression , nicotine dependence, chronic pain, obstructive sleep apnea, GERD, migraines, acute headache. Past Surgical History: Cholecystectomy; appendectomy; hysterectomy; right ankle, foot surgery; bilat eral foot surgery with plates and screws; tonsillectomy and in November 2013 had a Port-A-Cath placement . Allergies: STADOL, GABAPENTIN, PROCHLORPERAZINE, MORPHINE, TORADOL, COMPAZINE AND NSAIDS. Medications: List reviewed. Social History: The patient is . Has a daughter and grandchildren. Quit tobacco and alcohol use several years ago. Independent in her activities of daily living. Does not use any assistive a mbulatory devices despite her left-sided weakness. Family History: Father had hypertension and stroke. Diabetes also runs in the family. Review of Systems: An 11-point system reviewed, negative except as per HPI. Physical Examination: Vital Signs: Blood pressure 79/41, improved to 89/71 with bolus; pulse 87; respirations 18; temperat ure 99.6; O2 of 98% on room air; BMI of 40. General: Awake, alert, oriented x3, ill-appearing female in some mild distress. HEENT: Normocephalic, atraumatic. PERRLA. EOMI. Dry mucous membranes. Oropharynx is clear. Tete l dentition. Conjunctivae are anicteric. Neck: Supple. No JVD. Trachea midline. CV: S1, S2. Regular rate and rhythm. Peripheral pulses present. No murmurs. RESPIRATORY: Moving air well bilaterally. No wheezing or stridor. No use of accessory muscles. Gastrointestinal: Abdomen is soft. Mild tenderness to palpation. No rebound or guarding. Bowel so unds positive. Extremities: No clubbing, cyanosis, or edema. No calf tenderness. Neuro: Cranial nerves 2 through 12 intact grossly. The patient does have left-sided weakness 4/5 up per and lower extremities, 5/5 strength in right upper and lower extremity. The patient does have so me decreased sensation to light touch on the left side. Speech is dysarthric, however, comprehensibl e. Skin: No rashes. Normal skin turgor. Psych: Mood is okay. Affect is full. Insight and judgment are good. Labs: Currently pending. Labs from 11/30/2018 reviewed, unremarkable. UA was also negative. UDS w as also negative. Chest x-ray on 11/30/2018 showed no acute abnormalities. Assessment: A 53-year-old female with: 1.Intractable nausea, vomiting. Unclear etiology, may be gastrointestinal, bacterial enteritis or v iral enteritis. Continue with supportive care. Start on clear liquids and IV fluids for now. 2.Acute hypotension. Likely from volume depletion, dehydration. The patient has responded well to fluids. We will continue IV fluid hydration and monitor blood pressure. 3.Diarrhea. We will check stool studies to rule out Clostridium difficile. 4.Morbid obesity, BMI of 44. 5.History of cerebrovascular accident with left-sided weakness secondary to antiphospholipid syndrom e. The patient no longer on blood thinners due to adverse reaction. 6.Hyperlipidemia. Continue statin. 7.Major depressive disorder, in remission. Single episode. 8.Obstructive sleep apnea. 9.Gastroesophageal reflux disease without esophagitis. Continue PPI. 10.Numbness and tingling, unclear etiology. The patient has antiphospholipid syndrome. No longer o n blood thinners. We will obtain head CT scan to rule out acute cerebrovascular accident. Plan: Admit the patient to Med/Surg, place as inpatient. Length of stay greater than 2 midnights. /VENANCIO Voice ID: [id number]
[2018-12-02] MEDS: NA CHLORIDE 0.9% 1,000 ML IV SCH ×4 (02:01→21:05)
[2018-12-02] MEDS: ONDANSETRON 4 MG/2 ML VIAL IV PRN ×2 (06:16→21:04)
[2018-12-02 07:28] LABS: Absolute Lymphocytes (CBC) 3.1 K/uL (0.7-4.9); Absolute Monocytes 1.4 K/uL (0.1-1.3); Absolute Neutrophil 4.1 K/uL (1.8-8.0); Basophils % 0.9 % (0-1.3); Eosinophils % 2.6 % (0-4.4); Hematocrit 31.9 % (36.0-45.0); Lymphocytes % 34.4 % (15.3-44.8); MPV 8.3 fL (7.6-11.3); Monocytes % 16.2 % (3.3-12.3)
[2018-12-02 08:03] LABS: Albumin 2.7 g/dL (3.4-5.0); Bilirubin Total 0.3 mg/dL (0.2-1.0); Protein, Total 5.5 g/dL (6.4-8.2)
[2018-12-02] MEDS ORDERED: POTASSIUM CL SA 10 MEQ TAB PO ONE ×2 (08:10→17:00)
--- NOTE | 2018-12-02 08:29 | EKG ---
Test Date: 2018-12-01 Test Time: 18:05:32 Receiving Worker: DIPTI MEASUREMENT RESULTS: Intervals: Rate: 83 AL: 166 QRSD: 116 QT: 414 QTc: 486 [place]: P: 62 AL: 166 QRS: 50 T: 47 INTERPRETIVE STATEMENTS: Normal sinus rhythm Low voltage QRS Right bundle branch block Abnormal ECG Compared to ECG 12/01/2018 12:52:07 Low QRS voltage now present Electronically Signed On 12-02-18 08:29:07 CDT by bOi Bae
[2018-12-02] MEDS ORDERED: KCL 20 MEQ/100 mL IVPB 20 MEQ/100 ML BAG IV SCH (09:00)
[2018-12-02 09:03] LABS: Urine White Blood Cell Casts OK
[2018-12-02 09:04] LABS: Blood Morphology Comment NOT SEEN (NOT SEEN); Platelet Estimate ADEQ
[2018-12-02] MEDS: ENOXAPARIN 40 MG/0.4 ML SQ SCH (09:22)
--- NOTE | 2018-12-02 12:34 | RAD REPORT ---
EXAM DESCRIPTION: CT - Abdomen Pelvis Wo Contrast - 12/02/2018 12:11 pm CLINICAL HISTORY: Abdominal pain with diarrhea COMPARISON: 2013 TECHNIQUE: Computed axial tomography of the abdomen and pelvis was obtained. IV was not requested. O ral contrast was given. Coronal reconstructions performed. All CT scans are performed using dose optimization technique as appropriate and may include automated exposure control or mA/KV adjustment according to patient size. FINDINGS: The evaluation of solid organs and vessels is limited secondary to the lack of contrast a dministration. The liver, spleen, pancreas, adrenals and kidneys appear grossly normal. The gallbladder has been removed. There is no evidence of diverticulitis. No evidence of colitis. A hysterectomy has been performed. An adnexal mass is not seen. 2 centimeter right ovarian cyst may present. No significant free fluid IMPRESSION: 2 centimeter right ovarian cyst may be present. No significant free fluid.
[2018-12-02] MEDS: LOPERAMIDE HCL 2 MG CAPSULE PO PRN ×2 (14:15→21:05)
--- NOTE | 2018-12-02 19:48 | PN ---
Date of Progress Note: 12/02/2018 History: The patient is seen and examined. Chart reviewed and case discussed with RN. The patient was unable to tolerate a clear liquid diet, having multiple episodes of diarrhea. Medications: List reviewed. Physical Examination: Vital Signs: Temperature 97.6, heart rate 83, blood pressure 116/60, respirations 17, and O2 of 98% on room air. General: Awake, alert, oriented x3. Some mild distress due to pain. Morbidly obese female. BMI 40 .7. CV: S1, S2. Regular rate and rhythm. Peripheral pulses present. Respiratory: Moving air well bilaterally. No wheezing or stridor. Gastrointestinal: Abdomen is soft, nontender, nondistended. Positive bowel sounds. No guarding or rigidity. Extremities: No clubbing, cyanosis, or edema. Neuro: Abnormal speech, which is chronic. Left-sided weakness. Skin: No rashes. Normal skin turgor. Laboratory Data: Sodium 147, potassium 3, chloride 114, CO2 19, BUN 5, creatinine 0.97, glucose 99, calcium 7.1, AST 74, ALT 131, alkaline phosphatase 123, albumin 2.7. WBC 8.9, H and H 10.7 and 31.9, platelets 174. CT scan of the abdomen and pelvis shows a 2 cm right ovarian cyst. No significant f ree fluid. No evidence of diverticulitis or colitis. Stool culture is pending. [facility] Assessment And Plan: A 53-year-old female with: 1.Intractable nausea and vomiting, likely due to bacterial versus viral gastroenteritis. The patien t is still not able to tolerate clear liquids. We will continue with IV fluids. 2.Acute hypotension, likely from volume depletion and dehydration, improved. The patient's blood pr essure is now in the low to one-teens. We will continue to monitor. 3.Diarrhea. Clostridium difficile has been ruled out. Likely secondary to viral or bacterial gastr oenteritis. CT scan does not show any evidence of colitis or diverticulitis. We will provide Imodiu m. 4.Morbid obesity, BMI of 40.7. 5.History of cerebrovascular accident with left-sided weakness secondary to antiphospholipid syndrom e. No longer on blood thinners due to adverse reaction, stable. 6.Mixed hyperlipidemia. We will continue statin. 7.Major depressive disorder, currently in remission, single episode. 8.Obstructive sleep apnea. 9.Gastroesophageal reflux disease without esophagitis. We will continue PPI. 10.Numbness and tingling of the lower extremity. Head CT scan ruled out an acute cerebrovascular ac cident, may be related to neuropathy. 11.Hypokalemia. We will replace and monitor. 12.Hypomagnesemia. We will replace and monitor. 13.Elevated liver enzymes, unclear etiology. The liver appeared normal on CT scan. Plan: Continue symptomatic treatment for now. Likely discharge in the next 24-48 hours depending on clinical response. /VENANCIO Voice ID: [id number] Report ID: [id number]
[2018-12-02] MEDS ORDERED: BUPROPION HCL 200 MG PO SCH (21:00)
[2018-12-02] MEDS ORDERED: HOME MED 1 EA UNK (Budesonide/Formoterol Fumarate [Symbicort 160-4.5 Mcg Inhaler] 2 PUFF) IH SCH (21:00)
[2018-12-02] MEDS ORDERED: ATORVASTATIN 80 MG TAB PO SCH (21:00)
[2018-12-02] MEDS: SERTRALINE HCL 100 MG TAB PO SCH (21:05)
[2018-12-02] MEDS: TOPIRAMATE 25 MG TAB PO SCH (21:05)
[2018-12-02] MEDS: RISPERIDONE 1 MG TABLET PO SCH (21:05)
[2018-12-03] MEDS ORDERED: POTASSIUM CL SA 10 MEQ TAB PO ONE (01:30)
[2018-12-03] MEDS: ACETAMINOPHEN 500 MG TAB PO PRN (04:37)
[2018-12-03] MEDS: NA CHLORIDE 0.9% 1,000 ML IV SCH (06:01)
[2018-12-03 06:22] LABS: Absolute Lymphocytes (CBC) 2.9 K/uL (0.7-4.9); Absolute Monocytes 1.3 K/uL (0.1-1.3); Absolute Neutrophil 3.8 K/uL (1.8-8.0); Basophils % 1.2 % (0-1.3); Eosinophils % 3.1 % (0-4.4); Hematocrit 36.6 % (36.0-45.0); Lymphocytes % 34.2 % (15.3-44.8); MPV 8.6 fL (7.6-11.3); Monocytes % 15.8 % (3.3-12.3); RBC Red Blood Cell Count 4.22 M/uL (3.86-4.86)
[2018-12-03 06:40] LABS: Albumin 2.7 g/dL (3.4-5.0); Bilirubin Total 0.7 mg/dL (0.2-1.0); Potassium 3.4 mmol/L (3.5-5.1)
[2018-12-03 07:29] VITALS: O2SAT 98
[2018-12-03] MEDS: SERTRALINE HCL 100 MG TAB PO SCH (08:22)
[2018-12-03] MEDS: TOPIRAMATE 25 MG TAB PO SCH (08:23)
[2018-12-03] MEDS: RISPERIDONE 1 MG TABLET PO SCH (08:23)
[2018-12-03] MEDS: ENOXAPARIN 40 MG/0.4 ML SQ SCH (08:24)
[2018-12-03] MEDS: LOPERAMIDE HCL 2 MG CAPSULE PO PRN (08:41)
[2018-12-03] MEDS ORDERED: POTASSIUM 25 MEQ EFFERV TAB PO ONE (09:00)
[2018-12-03 12:20] VITALS: TEMP 97.1
[2018-12-03 16:28] VITALS: BP 114/60
--- NOTE | 2018-12-04 14:11 | DS ---
Date of Discharge: 12/03/2018 Admitting Diagnoses: 1.Intractable nausea and vomiting. 2.Acute hypotension. 3.Diarrhea. 4.Morbid obesity. 5.History of cerebrovascular accident with left-sided weakness secondary to antiphospholipid syndrom e. 6.Hyperlipidemia. 7.Major depressive disorder. 8.Obstructive sleep apnea. 9.Numbness and tingling. Discharge Diagnoses: 1.Intractable nausea and vomiting, likely due to viral versus bacterial gastroenteritis, resolved. 2.Acute hypotension, improved. 3.Diarrhea. Clostridium difficile ruled out. 4.Morbid obesity. Body mass index 40.7. 5.History of cerebrovascular accident with left-sided weakness and dysarthria secondary to antiphosp holipid syndrome. No longer on blood thinners due to adverse reaction. 6.Mixed hyperlipidemia, on statin. 7.Major depressive disorder, currently in remission, single episode. 8.Obstructive sleep apnea. 9.Gastroesophageal reflux disease without esophagitis. 10.Hypokalemia, corrected. 11.Hypomagnesemia, corrected. 12.Elevated liver enzymes, appears to be chronic, may be due to fatty liver disease. 13.Numbness and tingling of lower extremity, improved. Hospital Course: The patient is a 53-year-old female, morbidly obese with history of hypertension, h yperlipidemia, history of CVA and antiphospholipid syndrome who used to be on blood thinners, however , no longer on chronic anticoagulation due to adverse reaction. The patient comes in with abdominal pain, nausea, vomiting, and diarrhea. The patient was admitted to the hospital. Abdomen CT scan did not show any acute abnormalities, shows cyst on her right ovary. No colitis or diverticulitis was s een. The patient was started on IV fluids, antiemetics. She was initially placed on a clear liquid diet. She was able to advance her diet and tolerate bland diet. Her symptoms improved. Her nausea and vomiting resolved with symptomatic treatment. The patient's C diff was ruled out. She did have multiple electrolyte abnormalities, which were corrected including her potassium and her magnesium. White count remained stable. UA was equivocal. Urine culture grew out mixed monique. Stool culture i s currently pending at this time. She was noticed to have elevated liver enzymes. She denies any al cohol use. She does report exposure to hepatitis through her and she may be a chronic hira r. Hepatitis panel has been sent out. The patient will need to follow up with hepatitis panel with her PCP. Overall, the patient did well. Her symptoms improved. She was back to her baseline, able to tolerate her diet. She was then cleared for discharge. Medications: As per medication reconciliation list. Diet: Heart healthy diet. Activity: As tolerated, fall precautions. Followup: Follow up with PCP in 2-3 days. Establish care with GI in 2-4 weeks and have liver enzyme s repeated. Return to ER for worsening condition. Physical Examination: General: Awake, alert, oriented x3. Morbidly obese female, in no acute distress. CV: S1, S2. Regular rate and rhythm. Peripheral pulses present. No murmurs. Respiratory: Moving air well bilaterally. No wheezing or stridor. No use of accessory muscles. Gastrointestinal: Abdomen is soft, nontender, nondistended. Positive bowel sounds. No guarding or rigidity. Extremities: No clubbing, cyanosis, or edema. Total time spent discharging the patient was 32 minutes. The patient was counseled to check her bloo d pressure prior to taking blood pressure medications. Hold BP meds if the systolic blood pressure is less than or equal to 120. SA/MODL Voice ID: [id number] Report ID: [id number]
[2018-12-08 06:11] LABS: HBsAG Nonreactive (Nonreactive); Hepatitis A IgM Antibody Nonreactive
== END 2018-12-03 17:41 | disposition home or self-care (01) | DRG 392 ==
LOC: ER 11:50 → ERHOLD 13:38 → 2ND 16:23
PROVIDERS: ADMIT Family Medicine; ATTEND Family Medicine
DX: A08.4 Viral intestinal infection, unspecified (principal); Z68.41 Body mass index [BMI] 40.0-44.9, adult; D68.61 Antiphospholipid syndrome; I69.354 Hemiplegia and hemiparesis following cerebral infarction affecting left non-dominant side; A09 Infectious gastroenteritis and colitis, unspecified; I95.9 Hypotension, unspecified; E86.0 Dehydration; E86.9 Volume depletion, unspecified; E66.01 Morbid (severe) obesity due to excess calories; E78.2 Mixed hyperlipidemia; F32.5 Major depressive disorder, single episode, in full remission; G47.33 Obstructive sleep apnea (adult) (pediatric); K21.9 Gastro-esophageal reflux disease without esophagitis; E87.6 Hypokalemia; E83.42 Hypomagnesemia; R74.8 Abnormal levels of other serum enzymes; R20.0 Anesthesia of skin; R20.2 Paresthesia of skin; N83.201 Unspecified ovarian cyst, right side; Z87.891 Personal history of nicotine dependence
CPT/HCPCS: 36415; 70450; 71045; 74176; 80048; 80053; 80074; 80076; 80307; 81003; 81015; 83690; 83735; 83880; 84132; 84484; 85025; 85610; 87086; 87088; 87493; 93005; 94760; 96361; 96374; 96375; 99285; J1650; J2405; J2550; J3010; J3475; J7030

== ENCOUNTER 2018-12-04 10:35 | Observation (INO) | payer MEDICAID ==
[2018-12-04 12:50] LABS: Potassium 3.8 mmol/L (3.5-5.1)
[2018-12-04 13:14] LABS: Absolute Lymphocytes (CBC) 2.4 K/uL (0.7-4.9); Absolute Monocytes 1.1 K/uL (0.1-1.3); Absolute Neutrophil 5.9 K/uL (1.8-8.0); Basophils % 0.9 % (0-1.3); Eosinophils % 2.4 % (0-4.4); Hematocrit 31.9 % (36.0-45.0); Lymphocytes % 24.8 % (15.3-44.8); MPV 8.1 fL (7.6-11.3); Monocytes % 11.6 % (3.3-12.3); RBC Red Blood Cell Count 3.71 M/uL (3.86-4.86)
--- NOTE | 2018-12-04 13:18 | ER ---
Nurse's Notes [facility] Name: Kathy Whyte Age: 53 yrs Sex: Female : 1965 Arrival Date: 12/04/2018 Time: 10:39 Bed 5 Private MD: Diagnosis: Peripheral edema, mild heart failure Presentation: 12/04 10:39 Presenting complaint: Patient states: was just D/C'd yesterday from here for low BP, hj today when i woke up, my knees, ankle, hands and eyes are swollen; denies SOB;. Transition of care: patient was not received from another setting of care. Onset of symptoms was December 04, 2018. Risk Assessment: Do you want to hurt yourself or someone else? Patient reports no desire to harm self or others. Initial Sepsis Screen: Does the patient meet any 2 criteria? No. Patient's initial sepsis screen is negative. Does the patient have a suspected source of infection? No. Patient's initial sepsis screen is negative. Care prior to arrival: None. 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 LMP N/A - Hysterectomy hj Historical: - Allergies: 10:41 Compazine; hj 10:41 Morphine; hj 10:41 Neurontin; hj 10:41 NSAIDS; hj 10:41 Stadol; hj 10:41 Toradol; hj - Home Meds: 14:16 carvedilol 12.5 mg Oral tab 1 tab 2 times per day [Active]; lisinopril 20 mg Oral tab tw2 [Active]; triazolam 0.25 mg Oral tab 2 tabs once daily [Active]; sertraline 100 mg Oral tab 1 tab once daily [Active]; bupropion HCl 200 mg Oral TbER 1 tab 2 times per day [Active]; topiramate 25 mg oral CSpX 1 cap once daily [Active]; Risperdal 1 mg Oral tab 1 tab 2 times per day [Active]; methocarbamol 750 mg Oral tab 1 tab every 4 hours [Active]; - PMHx: 10:41 Anxiety; CVA; Depression; High Cholesterol; Hypertension; Seizures; hj - PSHx: 10:41 Hysterectomy; Appendectomy; Cholecystectomy; ankle; hj - Immunization history:: Adult Immunizations. - Social history:: Smoking status: . - Ebola Screening: : Patient denies travel to an Ebola-affected area in the 21 days before illness onset. Screenin:58 Abuse screen: Denies threats or abuse. Denies injuries from another. Nutritional sv screening: No deficits noted. Tuberculosis screening: No symptoms or risk factors identified. Fall Risk None identified. Assessment: 11:30 General: Appears in no apparent distress. uncomfortable, obese, well developed, sv Behavior is calm, cooperative, appropriate for age. Pain: Denies pain. Neuro: Level of Consciousness is awake, alert, obeys commands, Oriented to person, place, time, situation, Moves all extremities. Cardiovascular: Reports she feels her legs and hands swollen. Patient's skin is warm and dry. Edema is 1+ to left ankle, left foot, right ankle and right foot. Respiratory: Airway is patent Respiratory effort is even, unlabored, Respiratory pattern is regular, symmetrical, Breath sounds are clear bilaterally. Denies shortness of breath. Derm: Skin is pink, warm \T\ dry. 13:27 Reassessment: Patient appears in no apparent distress at this time. No changes from tw2 previously documented assessment. Patient and/or family updated on plan of care and expected duration. Pain level reassessed. Patient is alert, oriented x 3, equal unlabored respirations, skin warm/dry/pink. Dr. Smyth notified of need for IV via EJ at this time, unsuccessful iv access. 14:56 Reassessment: Patient appears in no apparent distress at this time. No changes from tw2 previously documented assessment. Patient and/or family updated on plan of care and expected duration. Pain level reassessed. Patient is alert, oriented x 3, equal unlabored respirations, skin warm/dry/pink. Vital Signs: 10:42 BP 95 / 44; Pulse 105; Resp 18; Temp 98.4(TE); Pulse Ox 97% on R/A; Weight 104.33 kg; hj Height 5 ft. 3 in. (160.02 cm); Pain 0/10; 11:40 BP 98 / 78; Pulse 91; Resp 17; Pulse Ox 100% on R/A; tw2 12:53 BP 93 / 50; Pulse 102; Resp 18; Pulse Ox 100% on R/A; tw2 13:28 BP 98 / 53; Pulse 99; Resp 17; Pulse Ox 100% on R/A; tw2 14:55 BP 103 / 75; Pulse 95; Resp 17; Pulse Ox 100% on R/A; tw2 10:42 Body Mass Index 40.74 (104.33 kg, 160.02 cm) ED Course: 10:39 Patient arrived in ED. hj 10:41 Triage completed. hj 10:41 Arm band placed on right wrist. hj 10:58 Francisca Ruvalcaba RN is Primary Nurse. sv 10:58 Patient has correct armband on for positive identification. Placed in gown. Bed in low sv position. Call light in reach. registered nurse obstetrics on. Pulse ox on. NIBP on. Door closed. Head of bed elevated. 11:25 David Smyth MD is Attending Physician. kdr 13:15 EKG done, by biodiesel processing technician. reviewed by David Smyth MD. sm3 13:17 Jonny Garduno MD is Hospitalizing Provider. kdr 13:54 Inserted saline lock: 20 gauge in left EJ, using aseptic technique. ,using aseptic tw2 technique. by GREGORIA Mauro Blood collected. 14:58 No provider procedures requiring assistance completed. Patient admitted, IV remains in tw2 place. Administered Medications: 14:00 Drug: Lasix 20 mg Route: IVP; Site: left jugular; tw2 15:00 Follow up: Response: No adverse reaction tw2 Outcome: 13:17 Decision to Hospitalize by Provider. kdr 14:57 Admitted to Med/surg accompanied by tech, via wheelchair, room 225, with chart, Report tw2 called to PRASHANT Barber 14:57 Condition: stable 14:57 Instructed on the need for admit. 15:10 Patient left the ED. tw2 Signatures: Francisca Ruvalcaba RN RN David Smyth MD MD kdr Marlon Ennis RN RN hj Wise, Tara, RN RN tw2 Adela Felix sm3 Corrections: (The following items were deleted from the chart) 10:44 10:42 Pulse 105bpm; Resp 18bpm; Pulse Ox 97% RA; Temp 98.4F Temporal; 104.33 kg; Height hj 5 ft. 3 in.; BMI: 40.7; Pain 0/10; hj 10:55 10:39 Presenting complaint: Patient states: was just D/C'd yesterday from here fo low hj BP, today when i woke up, my knees, ankle, hands and eyes are swollen; denies SOB; hj
--- NOTE | 2018-12-04 13:18 | EDPHYS ---
Physician Documentation [facility] Name: Kathy Whyte Age: 53 yrs Sex: Female : 1965 Arrival Date: 12/04/2018 Time: 10:39 Bed 5 Private MD: ED Physician David Smyth HPI: 12/04 14:07 This 53 yrs old Female presents to ER via Ambulatory with complaints of kdr swelling all over. 14:07 The patient was discharged from this hospital yesterday after a short stay. She noted kdr just prior to d/c that she began to have swelling in her lower extremities. She states that she discussed it with the nursing staff prior to discharge but not the doctor. She has no other associated s/s. Onset: The symptoms/episode began/occurred yesterday. Severity of symptoms: At their worst the symptoms were mild in the emergency department the symptoms are unchanged. The patient has not experienced similar symptoms in the past. The patient has not recently seen a physician. 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/A - Hysterectomy hj Historical: - Allergies: 10:41 Compazine; hj 10:41 Morphine; hj 10:41 Neurontin; hj 10:41 NSAIDS; hj 10:41 Stadol; hj 10:41 Toradol; hj - Home Meds: 14:16 carvedilol 12.5 mg Oral tab 1 tab 2 times per day [Active]; lisinopril 20 mg Oral tab tw2 [Active]; triazolam 0.25 mg Oral tab 2 tabs once daily [Active]; sertraline 100 mg Oral tab 1 tab once daily [Active]; bupropion HCl 200 mg Oral TbER 1 tab 2 times per day [Active]; topiramate 25 mg oral CSpX 1 cap once daily [Active]; Risperdal 1 mg Oral tab 1 tab 2 times per day [Active]; methocarbamol 750 mg Oral tab 1 tab every 4 hours [Active]; - PMHx: 10:41 Anxiety; CVA; Depression; High Cholesterol; Hypertension; Seizures; hj - PSHx: 10:41 Hysterectomy; Appendectomy; Cholecystectomy; ankle; hj - Immunization history:: Adult Immunizations. - Social history:: Smoking status: . - Ebola Screening: : Patient denies travel to an Ebola-affected area in the 21 days before illness onset. ROS: 14:07 Constitutional: Negative for fever, chills, and weight loss, Eyes: Negative for injury, kdr pain, redness, and discharge, ENT: Negative for injury, pain, and discharge, Neck: Negative for injury, pain, and swelling, Cardiovascular: Negative for chest pain, palpitations, and edema, Respiratory: Negative for shortness of breath, cough, wheezing, and pleuritic chest pain, Abdomen/GI: Negative for abdominal pain, nausea, vomiting, diarrhea, and constipation, Back: Negative for injury and pain, : Negative for injury, bleeding, discharge, and swelling, MS/Extremity: Negative for injury and deformity, Skin: Negative for injury, rash, and discoloration, Neuro: Negative for headache, weakness, numbness, tingling, and seizure activity. Psych: Negative for depression, anxiety, suicide ideation, homicidal ideation, and hallucinations, Allergy/Immunology: Negative for hives, rash, and allergies, Endocrine: Negative for neck swelling, polydipsia, polyuria, polyphagia, and marked weight changes, Hematologic/Lymphatic: Negative for swollen nodes, abnormal bleeding, and unusual bruising. Exam: 14:42 Constitutional: This is a well developed, well nourished patient who is awake, alert, kdr and in no acute distress. Head/Face: Normocephalic, atraumatic. Eyes: Pupils equal round and reactive to light, extra-ocular motions intact. Lids and lashes normal. Conjunctiva and sclera are non-icteric and not injected. Cornea within normal limits. Periorbital areas with no swelling, redness, or edema. Neck: Trachea midline, no thyromegaly or masses palpated, and no cervical lymphadenopathy. Supple, full range of motion without nuchal rigidity, or vertebral point tenderness. No Meningismus. Chest/axilla: Normal chest wall appearance and motion. Nontender with no deformity. No lesions are appreciated. Cardiovascular: Regular rate and rhythm with a normal S1 and S2. No gallops, murmurs, or rubs. Normal PMI, no JVD. No pulse deficits. Respiratory: Lungs have equal breath sounds bilaterally, clear to auscultation and percussion. No rales, rhonchi or wheezes noted. No increased work of breathing, no retractions or nasal flaring. Abdomen/GI: Soft, non-tender, with normal bowel sounds. No distension or tympany. No guarding or rebound. No evidence of tenderness throughout. Back: No spinal tenderness. No costovertebral tenderness. Full range of motion. Skin: Warm, dry with normal turgor. Normal color with no rashes, no lesions, and no evidence of cellulitis. MS/ Extremity: Pulses equal, no cyanosis. Neurovascular intact. Full, normal range of motion. There isw mild 2+ lower extremity edema Neuro: Awake and alert, GCS 15, oriented to person, place, time, and situation. Cranial nerves II-XII grossly intact. Motor strength 5/5 in all extremities. Sensory grossly intact. Cerebellar exam normal. Normal gait. Psych: Awake, alert, with orientation to person, place and time. Behavior, mood, and affect are within normal limits. Vital Signs: 10:42 BP 95 / 44; Pulse 105; Resp 18; Temp 98.4(TE); Pulse Ox 97% on R/A; Weight 104.33 kg; Height 5 ft. 3 in. (160.02 cm); Pain 0/10; 11:40 BP 98 / 78; Pulse 91; Resp 17; Pulse Ox 100% on R/A; tw2 12:53 BP 93 / 50; Pulse 102; Resp 18; Pulse Ox 100% on R/A; tw2 13:28 BP 98 / 53; Pulse 99; Resp 17; Pulse Ox 100% on R/A; tw2 14:55 BP 103 / 75; Pulse 95; Resp 17; Pulse Ox 100% on R/A; tw2 10:42 Body Mass Index 40.74 (104.33 kg, 160.02 cm) Procedures: 13:55 Peripheral line: by aseptic technique a peripheral line was placed in the left external snw jugular vein, twinsite per automobile glass technician. Pt tolerated well. . MDM: 13:17 Patient medically screened. kdr 14:42 Data reviewed: vital signs, nurses notes, lab test result(s), radiologic studies. kdr Counseling: I had a detailed discussion with the patient and/or guardian regarding: the historical points, exam findings, and any diagnostic results supporting the discharge/admit diagnosis, lab results, radiology results, the need for further work-up and treatment in the hospital. 12/04 11:35 Order name: BNP sv 12/04 11:35 Order name: Basic Metabolic Panel; Complete Time: 12:54 sv 12/04 11:35 Order name: CBC with Diff; Complete Time: 13:19 sv 12/04 11:35 Order name: NT PRO-BNP; Complete Time: 12:54 EDAZ 12/04 13:19 Order name: Troponin (emerg Dept Use Only) [facility] 12/04 13:19 Order name: CXR XRAY kdr 12/04 13:05 Order name: EKG Electrocardiogram; Complete Time: 14:13 EDAZ 12/04 13:52 Order name: RAD EDAZ Administered Medications: 14:00 Drug: Lasix 20 mg Route: IVP; Site: left jugular; tw2 15:00 Follow up: Response: No adverse reaction tw2 Disposition: 15:32 I supervised the procedure noted by the RONN. kdr Disposition: 12/04/18 13:17 Hospitalization ordered by Jonny Garduno for Observation. Preliminary diagnosis is Peripheral edema, mild heart failure. - Bed requested for Telemetry/MedSurg (observation). - Status is Observation. tw2 - Condition is Fair. - Problem is new. - Symptoms are unchanged. UTI on Admission? No Signatures: Dispatcher [employer] EDAZ David Smyth MD MD kdr Maday Puga, PETROLEUM SAMPLER-C PETROLEUM SAMPLER-Csnw Marlon Ennis, RN RN hj Cristina Mixon RN RN tw2 Cortney Tran, PRASHANT RN df Corrections: (The following items were deleted from the chart) 14:50 13:17 Hospitalization Ordered by Jonny Garduno MD for Observation. Preliminary diagnosis df is Peripheral edema, mild heart failure. Bed requested for Telemetry/MedSurg (observation). Status is Observation. Condition is Fair. Problem is new. Symptoms are unchanged. UTI on Admission? No. kdr 15:10 14:50 12/04/2018 13:17 Hospitalization Ordered by Jonny Garduno MD for Observation. tw2 Preliminary diagnosis is Peripheral edema, mild heart failure. Bed requested for Telemetry/MedSurg (observation). Status is Observation. Condition is Fair. Problem is new. Symptoms are unchanged. UTI on Admission? No. df
--- NOTE | 2018-12-04 13:51 | RAD REPORT ---
EXAM DESCRIPTION: Avni Single View12/04/2018 1:41 pm CLINICAL HISTORY: Hypertension COMPARISON: December 01, 2018 FINDINGS: The lungs appear clear of acute infiltrate. The heart is normal size IMPRESSION: No acute abnormalities displayed
[2018-12-04] MEDS ORDERED: FUROSEMIDE 20 MG/ 2ML VIAL ONE (14:07)
[2018-12-04] MEDS ORDERED: ONDANSETRON 4 MG/2 ML VIAL IV PRN (15:20)
[2018-12-04] MEDS ORDERED: ACETAMINOPHEN 500 MG TAB PO PRN (15:20)
[2018-12-04] MEDS: FUROSEMIDE 40 MG/4 ML VIAL IV SCH (17:32)
[2018-12-04] MEDS: ENOXAPARIN 40 MG/0.4 ML SQ SCH (17:32)
[2018-12-04] MEDS ORDERED: POTASSIUM 25 MEQ EFFERV TAB PO ONE (17:33)
[2018-12-04] MEDS ORDERED: ALBUTEROL (PROAIR) INHALER IH PRN (18:15)
[2018-12-04] MEDS: CARVEDILOL 12.5 MG TAB PO SCH (21:00)
[2018-12-04] MEDS ORDERED: ZOLPIDEM TARTRATE 10 MG TABLET PO SCH (21:00)
[2018-12-04] MEDS: BUPROPION HCL 200 MG PO SCH (21:00)
[2018-12-04] MEDS ORDERED: Magnesium Sulfate 2gm IVPB 2 G/50 ML BAG IV ONE (21:00)
[2018-12-04] MEDS ORDERED: PNEUMOCOCCAL VACCINE 0.5 ML IMVAC ONE (21:00)
[2018-12-04] MEDS ORDERED: ATORVASTATIN 80 MG TAB PO SCH (21:00)
[2018-12-04] MEDS ORDERED: HOME MED 1 EA UNK (Risperidone [Risperdal] 2 MG) PO SCH (21:00)
[2018-12-04] MEDS ORDERED: TRIAZOLAM PO SCH (21:00)
[2018-12-04] MEDS: METHOCARBAMOL 750 MG TAB PO SCH (23:07)
[2018-12-04] MEDS: RISPERIDONE 1 MG TABLET PO SCH (23:07)
[2018-12-04] MEDS: TOPIRAMATE 25 MG TAB PO SCH (23:08)
[2018-12-04] MEDS: FORMOTEROL IH SCH (23:09)
[2018-12-04] MEDS: SERTRALINE HCL 100 MG TAB PO SCH (23:09)
[2018-12-04] MEDS: BUDESONIDE IH SCH (23:09)
--- NOTE | 2018-12-05 01:51 | HP ---
Date of Admission: 12/04/2018 Chief Complaint: Lower extremity edema. History Of Present Illness: The patient is a 53-year-old female, who was recently discharged from the hospital on 12/03/2018, for intractable nausea, vomiting, and diarrhea. The patient was in her usual state of health after discharge. She ate some barbecue and other [id number] foods and comes in with lower extremity edema, swelling, and pain. The patient also reports minimal shortness of breath. The patient does not have any history of congestive heart failure. Does have history of hypertension, hyperlipidemia, CVA, antiphospholipid syndrome. No longer on anticoagulation due to adverse reaction. The patient symptoms were constant, moderate, progressively worsening. She denied any trauma. Her workup revealed BNP of 863. She is saturating, did not have any hypoxia. The patient was then referred for admission. When seen in the ER, she was awake, alert, oriented x3, not in any acute distress. Past Medical History: Hypertension, hyperlipidemia, history of CVA secondary to antiphospholipid syndrome, depression, chronic pain, obstructive sleep apnea , GERD, migraines. Past Surgical History: Cholecystectomy, appendectomy, hysterectomy, right ankle and foot surgery, bilateral foot surgery with plates and screws, tonsillectomy, and Port-A-Cath placement in 2013. Allergies: TO STADOL, GABAPENTIN, PROCHLORPERAZINE, MORPHINE, TORADOL, COMPAZINE, NSAIDS. Medications: List reviewed. Social History: The patient denies any tobacco use, alcohol use, or illicit drug use. Family History: Father has hypertension and stroke. Review of Systems: An 11-point system reviewed, negative except as per HPI. Physical Examination: Vital Signs: Blood pressure 95/44, pulse 105, respirations 18, temperature 98.4 , O2 97% on room air. General: Awake, alert, oriented x3. Some mild distress. Obese female. BMI of 40. HEENT: Normocephalic, atraumatic. PERRLA. EOMI. Moist mucous membranes. Oropharynx is clear. Conjunctivae are anicteric. Neck: Supple. No JVD. Trachea midline. CV: S1, S2. Regular rate and rhythm. Peripheral pulses present. Respiratory: Moving air well bilaterally except at the bases. No wheezing or stridor. Gastrointestinal: Abdomen is soft, nontender, nondistended. Positive bowel sounds. Extremities: No clubbing or cyanosis. The patient has 2+ edema, bilateral lower extremities. No calf tenderness. Neuro: Cranial nerves 2-12 intact grossly. The patient has left-sided weakness , upper and lower extremity. Speech is dysarthric, but comprehensible. Laboratory Data: Sodium 143, potassium 3.8, chloride 110, CO2 24, BUN 4, creatinine 1.11, glucose 116, calcium 7.3. Troponin less than 0.02, BNP 863. WBC 9.8, H and H 10.9 and 31.9, platelets 232. Chest x-ray shows no acute abnormalities. Assessment And Plan: A 53-year-old female with: 1. Acute on chronic CHF diastolic. Echo from 2014 shows EF 60-69% 2. Peripheral edema. We will start on Lasix. Chest x-ray is clear. We will start on CHF guidelines, monitor I's and O's, daily weights. 3. Essential hypertension. Resume home medications as appropriate. 4. Mixed hyperlipidemia. Continue statin. 5. History of CVA with left-sided weakness, stable. 6. Morbid obesity, BMI 40. 7. Antiphospholipid syndrome. 8. DVT prophylaxis with Lovenox. Admit the patient to med-surg, place as observation. /VENANCIO Voice ID: [id number] MTDD
[2018-12-05 02:48] VITALS: O2SAT 96
[2018-12-05 06:08] LABS: Albumin 2.4 g/dL (3.4-5.0); Bilirubin Total 0.4 mg/dL (0.2-1.0); Magnesium 1.9 mg/dL (1.8-2.4); Potassium 3.5 mmol/L (3.5-5.1); Protein, Total 5.4 g/dL (6.4-8.2)
[2018-12-05 06:12] LABS: Absolute Lymphocytes (CBC) 2.9 K/uL (0.7-4.9); Absolute Monocytes 0.9 K/uL (0.1-1.3); Absolute Neutrophil 5.1 K/uL (1.8-8.0); Basophils % 0.5 % (0-1.3); Eosinophils % 2.9 % (0-4.4); Hematocrit 31.9 % (36.0-45.0); Lymphocytes % 31.5 % (15.3-44.8); Monocytes % 9.9 % (3.3-12.3); RBC Red Blood Cell Count 3.66 M/uL (3.86-4.86)
[2018-12-05] MEDS: FUROSEMIDE 40 MG/4 ML VIAL IV SCH ×2 (09:00→09:22)
[2018-12-05] MEDS: FORMOTEROL IH SCH (09:00)
[2018-12-05] MEDS ORDERED: LISINOPRIL 20 MG TAB PO SCH (09:00)
[2018-12-05] MEDS: CARVEDILOL 12.5 MG TAB PO SCH (09:00)
[2018-12-05] MEDS: BUPROPION HCL 200 MG PO SCH (09:00)
[2018-12-05] MEDS: BUDESONIDE IH SCH (09:00)
[2018-12-05] MEDS ORDERED: POTASSIUM 25 MEQ EFFERV TAB PO ONE (09:00)
[2018-12-05] MEDS: ENOXAPARIN 40 MG/0.4 ML SQ SCH (09:11)
[2018-12-05] MEDS: METHOCARBAMOL 750 MG TAB PO SCH (09:13)
[2018-12-05] MEDS: RISPERIDONE 1 MG TABLET PO SCH (09:13)
[2018-12-05] MEDS: TOPIRAMATE 25 MG TAB PO SCH (09:15)
[2018-12-05] MEDS: SERTRALINE HCL 100 MG TAB PO SCH (09:15)
[2018-12-05 10:14] VITALS: BMI 45.5
--- NOTE | 2018-12-05 10:18 | EKG ---
Test Date: 2018-12-04 Test Time: 10:55:37 Marshmallow Machine Worker: DAYDAY MEASUREMENT RESULTS: Intervals: Rate: 93 RI: 142 QRSD: 102 QT: 376 QTc: 467 [place]: P: 58 RI: 142 QRS: 59 T: 43 INTERPRETIVE STATEMENTS: Normal sinus rhythm Low voltage QRS Incomplete right bundle branch block Prolonged QT Abnormal ECG Compared to ECG 12/01/2018 18:05:32 Incomplete right bundle-branch block now present Prolonged QT interval now present Right bundle-branch block no longer present Electronically Signed On 12-05-18 10:16:29 CDT by Bora Soto
[2018-12-05 13:59] VITALS: BP 109/53; TEMP 98.2
--- NOTE | 2018-12-05 23:06 | DS ---
Date of Discharge: 12/05/2018 Discharge Diagnoses: 1. Acute congestive heart failure. 2. Peripheral edema, improved. 3. Essential hypertension. 4. Mixed hyperlipidemia. 5. History of cerebrovascular accident with left-sided weakness and speech abnormality. 6. Morbid obesity. BMI of 40. 7. Antiphospholipid syndrome. 8. Hypomagnesemia. Hospital Course: Patient is a 53-year-old female who was recently discharged from the hospital for gastroenteritis, comes in with lower extremity edema. The patient does admit to eating high salt intake foods. Patient was admitted and was treated with IV Lasix for diuresis. She did diurese well. Her symptoms and clinical picture improved. She did not have any hypoxia. Chest x- ray was clear. The patient did develop hypotension and her blood pressure medications will be adjusted. Lisinopril dose will be reduced. She was instructed to hold her blood pressure medications for systolic blood pressure less than 110. Patient's magnesium level was also low and was corrected. Overall, patient did well. She was able to ambulate, did not have any difficulty of breathing. Echocardiogram was unable to be done due to the weekend. She will need to establish care with fire apparatus sprinkler inspector as an outpatient. Medications: As per medication reconciliation list. Followup: Follow up with primary care physician in 2-3 days. Return to ER for worsening condition. Diet: Low-sodium, fluid-restricted diet, 1500 mL. Activity: Fall precautions. Physical Examination: General: Awake, alert, oriented, no acute distress. Morbidly obese female. CV: S1, S2. No murmurs. Respiratory: Moving air well bilaterally. No wheezing. Gastrointestinal: Abdomen is soft, nontender, nondistended. Positive bowel sounds. Extremities: No clubbing, cyanosis, or edema. Neurologic: Nonfocal. Patient has speech disturbance. SA/MODL Voice ID: [id number] Report ID: [id number] [facility]
== END 2018-12-05 13:10 | disposition home or self-care (01) ==
LOC: ER 10:35 → ERHOLD 13:33 → 2ND 14:58
PROVIDERS: ADMIT Family Medicine; ATTEND Family Medicine
PROC: 05HQ33Z Insertion of Infusion Device into Left External Jugular Vein, Percutaneous Approach (ICD-10-PCS; principal; 2018-12-04)
DX: I50.33 Acute on chronic diastolic (congestive) heart failure (principal); R60.0 Localized edema; I10 Essential (primary) hypertension; E78.2 Mixed hyperlipidemia; I69.322 Dysarthria following cerebral infarction; I69.352 Hemiplegia and hemiparesis following cerebral infarction affecting left dominant side; E66.01 Morbid (severe) obesity due to excess calories; Z68.41 Body mass index [BMI] 40.0-44.9, adult; D68.61 Antiphospholipid syndrome; E83.42 Hypomagnesemia; I95.9 Hypotension, unspecified; R35.8 Other polyuria; Z29.8 Encounter for other specified prophylactic measures; F32.9 Major depressive disorder, single episode, unspecified; G89.29 Other chronic pain; K21.9 Gastro-esophageal reflux disease without esophagitis; G47.33 Obstructive sleep apnea (adult) (pediatric); F41.9 Anxiety disorder, unspecified; G40.909 Epilepsy, unspecified, not intractable, without status epilepticus; Z82.3 Family history of stroke; Z82.49 Family history of ischemic heart disease and other diseases of the circulatory system; Z88.5 Allergy status to narcotic agent; Z88.6 Allergy status to analgesic agent; Z88.8 Allergy status to other drugs, medicaments and biological substances; Z90.49 Acquired absence of other specified parts of digestive tract; Z90.710 Acquired absence of both cervix and uterus
CPT/HCPCS: 36415; 71045; 80048; 80053; 83735; 83880; 84484; 85025; 93005; 94760; 96374; 99285; G0378; J1650; J1940; J3475

== ENCOUNTER 2020-01-20 13:28 | Inpatient (IN) | payer MEDICAID ==
--- OUTSIDE RECORDS SUMMARY | 2020-01-20 13:46 | XMS REPORT | Continuity of Care Document ---
:1965 Author Organization [employer] Care Team Providers Name Role Phone [employer] Unavailable Un available Problems Problem Status Onset Classification Date Comments Sourc e Date Reported STROKE Active 03/09/[address] Center DYSPNEA Active 03/09/[address] ENCEPHALITIS/SEIZUR Active 03/16/20 [facility] NON-HEMORRAGHIC Active 10/26/19 [facility] [place] STROKE 15 Medical Center ISCHEMIC CVA Active 11/13/19 [facility] s 14 [facility] Center WEAKNESS Active 11/13/[address] Center AMS Active 05/08/[address] CEREBRAL VASCULAR Active 07/19/20 [facility] ACCIDENT Medical Center Anxiety (finding) Resolved Problem 03/14/2019 [facility] Chronic obstructive Active Problem 03/14/2019 [facility] lung disease Medical (disorder) Center Cerebrovascular Active Problem 03/14/2019 [facility] accident (disorder) [facility] Center Depression - motion Active Problem 03/25/2015 [facility] Asthenia (finding[facility] Active Problem 03/14/2019 [facility] Hypertensive Active Problem 03/14/2019 [place] disorder, systemic M edical arterial (disorder) Center Migraine (disorder) Active Problem 03/14/2019 [facility] Anxiety Active Problem 05/14/2013 [facility] COPD Active Problem 05/14/2013 [facility] Depression Active Problem 05/14/2013 [facility] General weakness Active Problem 05/14/2013 [facility] Hypertension Active Problem 05/14/2013 [place] [facility] Migraine Active Problem 05/14/2013 [facility] Stroke Active Problem 05/14/2013 [facility] Antiphospholipid Resolved Problem 03/14/2019 [facility] syndrome (disorder) Medical Center Transient ischemic Resolved Problem 03/14/2019 [facility] attack (disorder) [facility] Gastroesophageal Resolved Problem 03/14/2019 [facility] reflux disease Medic al (disorder) Center Hyperlipidemia Resolved Problem 03/14/2019 [facility] [place] (disorder) Medical Center Nausea (finding) Resolved Problem 03/14/2019 [facility] Morbid obesity Active Problem 03/14/2019 [place] (disorder[place] [facility] CVA Active [facility] ALTERED MENTAL [place] STATUS [facility] MALAISE AND FATIGUE Active [facility] NEC [facility] FEBRILE CONVULSIONS Active [facility] NOS [facility] DYSPNEA, Active [facility] UNSPECIFIED [facility] Medications Medication Details Route Status Patient Ordering Order Source Instructions Provider Date lisinopril 10 mg 10 mg = 1 tab, Active 03/12[facility] oral tablet PO, Daily, # 2019 Medical 30 tab, 2 Center Refill(s) aripiprazole 5 5 mg = 1 tab, Active 03/12[facility] MG Oral Tablet PO, Bedtime, # 2019 Me dical [Abilify] 30 tab, 0 Center Refill(s) buPROPion 200 200 mg = 1 Active [facility] [place] mg/12 hours (SR) tab, PO, BID, 2019 M edical oral tablet, # 60 tab, 0 Center extended release Refill(s) carvedilol 3.125 3.125 mg = 1 Active [facility] mg oral tablet tab, PO, BID, 2019 Med ical # 60 tab, 0 Center Refill(s) atorvastatin 80 80 mg = 1 tab, Active 03/12/ H [place] mg oral tablet PO, Bedtime, # 2019 Me dical 30 tab, 0 Center Refill(s) LORazepam 2 mg 2 mg = 1 tab, Inactive 03/12[facility] oral tablet PO, BID, # 60 2019 Medica l tab, 0 Center Refill(s) cyclobenzaprine 10 mg = 1 tab, Active [facility] [place] 10 mg oral PO, BID, # 30 2019 Medical tablet tab, 0 Center Refill(s) triazolam 0.25 0.5 mg = 2 Active [facility] [place] mg oral tablet tab, PO, 2019 Medical Bedtime, PRN Center Sleep, # 60 tab, 0 Refill(s) Potassium Notes: (Same Inactive [facility] Chloride as: K-Dur 20) 2019 Medical "Do Not Crush" Center Give with food and full glass of water For patients unable to swallow tablet, dissolve in one half glass of water. Allow about 2 minutes for the tablets to disintegrate. Stir before giving to prepare slurry and administer. Please exclude Patient’ s with feeding tube less than 14 Romanian (Dobhoff, J-tube etc) and pediatric and patients. Potassium Notes: (Same Inactive [facility] Chloride as: K-Dur 20) 2019 Medical "Do Not Crush" Center Give with food and full glass of water For patients unable to swallow tablet, dissolve in one half glass of water. Allow about 2 minutes for the tablets to disintegrate. Stir before giving to prepare slurry and administer. Please exclude Patient’ s with feeding tube less than 14 Romanian (Dobhoff, J-tube etc) and pediatric and patients. potassium Notes: (Same Inactive [facility] chloride as: Potassium 2019 [facility] Chloride) Center Sertraline Notes: (Same No Longer [place] as: Zoloft) Active 2019 Medical [place] Topamax Notes: (Same No Longer [facility] As: Topamax) Active 2019 Medical "Do Not Crush" Center Potassium 20 mEq, Route: Inactive [place] Chloride PO, ONCE, 2019 Medical Dosing Weight Center 99.318, kg, Start date: 03/11/19 8:46:00 CDT, Stop date: 03/11/19 8:46:00 CDT Calcium Notes: WASTE: Inactive [facility] Gluconate F/P - Sink; E [facility] Tr[facility] Potassium Notes: (Same Inactive [facility] Chloride 1.33 as: Potassium 2019 Medi see MEQ/ML Oral Chloride) Center Solution Melatonin 3 MG Notes: (Same No Longer [facility] Extended Release as: Melatonin) Active 2019 Medical Tablet Center atorvastatin Notes: Same as No Longer [facility] Lipitor Active 2019 [facility] [place] Lisinopril Notes: (Same No Longer [place] as: Prinivil, Active 2019 [facility] Zestril) Center heparin Notes: porcine [place] heparin Active 2019 [facility] [place] potassium Notes: (Same Inactive [facility] phosphate + as: K 2019 Medical Sodium Chloride Phosphate.) Cent er 0.9% IV 250 mL Do not infuse phosphorous concurrently in the same line as TPN or IVF that contains calcium. For double lumen central lines, phosphorous may be infused in a separate lumen from TPN. 1 mMol phoshate has 1.47 mEq potassium Infuse over 4 hours Potassium 10 mEq, Route: Inactive [place] Chloride IVPB, Q1H, 2019 Medical Dosing Weight Center 99.318, kg, Total Dose = 40 meq, Start date: 03/10/19 15:00:00 CDT, Duration: 4 doses or times, Stop date: 03/10/19 18:00:00 CDT, Peripheral Line Aspirin Notes: Do not No Longer [place] crush or chew. Active 2019 Medical (Same As: Center Ecotrin) Adenosine 83.4271 mg, Inactive [place] Route: IVP, 2019 Medical ONCE, Dosing Center Weight 99.318, kg, Priority: Routine, Start date: 03/10/19 14:09:00 CDT, Stop date: 03/10/19 14:09:00 CDT potassium Notes: (Same Inactive [place] chloride as: KCL) 2019 Medical Infuse no Center faster than 10 mEq/hr if given peripherally. Folic Acid Notes: (Same No Longer [place] as: Folvite) Active 2019 Medical Center Thiamine Notes: (Same No Longer [place] As: Vitamin Active 2019 [facility] B1) Center multivitamin Notes: (Same No Longer [place] as:Thera) Active 2019 Medical WASTE: F/P - Center Black; E - Municipal Trash Bin Take with food. POLYETHYLENE Notes: No Longer [place] GLYCOL 3350 Dissolve in 8 Active 2019 Medica l oz of water or Center juice. (Same as: Miralax) Spiriva Notes: (Same No Longer [place] As: Spiriva) Active 2019 Medical Center Triazolam 0.25 mg, PO, [place] Bedtime, 0 Active 2019 Medical Refill(s) Center aripiprazole 5 5 mg = 1 tab, No Longer 03/10/ H [place] MG Oral Tablet PO, Daily, # Active 2019 Medi see [Abilify] 30 tab, 0 Center Refill(s) Lorazepam Notes: (Same [place] as: Ativan) Active 2019 Medical Center Albuterol 0.833 Notes: (Same Inactive [facility] MG/ML / as: Duoneb) 2019 Medical Ipratropium Center [place] 0.167 MG/ML Inhalant Solution Potassium Notes: (Same Inactive [facility] Chloride as: KCL) 2019 Medical Infuse no Center faster than 10 mEq/hr if given peripherally. Acetaminophen 100.4 F, No Longer [place] Start date: Active 2019 Medical 03/09/19 [place] 22:02:00 CDT, Duration: 30 day, Stop date: 04/08/19 22:01:00 CDT, 0 Ondansetron Notes: [place] MEDICATION Active 2019 Medical WASTE Center Product Size: 4 mg Product Wasted: ___ mg Dextrose 50% 12.5 gm, 25 [place]er [place] Syringe mL, Route: Active 2019 [facility] IVP, Drug Center Form: INJ, Dosing Weight 97.5, kg, PRN, PRN Blood Glucose Results, Start date: 03/09/19 22:02:00 CDT, Duration: 30 day, Stop date: 04/08/19 22:01:00 CDT, 0 Glucagon 1 mg, Route: No Longer Oxana IM, Drug form: Active 2019 Medical PDR/INJ, PRN, Center Dosing Weight 97.5, kg, PRN Blood Glucose Results, Start date: 03/09/19 22:02:00 CDT, Duration: 30 day, Stop date: 04/08/19 22:01:00 CDT, 0 Iohexol 100 mL, Route: Inactive [facility] IVP, Drug 2019 Medical Form: [facility] Dosing Weight 97.5, kg, ONCALL, STAT, Start date: 03/09/19 19:24:00 CDT, Duration: 1 doses or times, Dose = 2.2ml/kg, Max dose = 100ml -- "To be infused by Radiology Staff ONLY" Iohexol 82 mL, Route: Inactive [facility] IVP, Drug 2019 Medical Form: [facility] [place] Dosing Weight 97.5, kg, ONCALL, STAT, Start date: 03/09/19 19:06:00 CDT, Duration: 1 doses or times, Dose = 2.2ml/kg, Max dose = 100ml -- "To be infused by Radiology Staff ONLY" heparin additive Notes: Total No Longer [facility] 25,000 unit [12 Concentration Active 2019 [place] unit/kg/hr] + = 50 unit/mL; Cent er Premix Diluent Total volume = Sodium Chloride 500 mL Send 0.45% 500 mL Med Request 2 hours prior to next bag Heparin 30 Route: IVP, [place] unit/kg Bol[place] PRN, 2,300 Active 2019 Medical (Heparin Dosing unit, 2.3 mL, Ce nter Weight) Drug form: INJ, PRN, Heparin Protocol, Start date: 03/09/19 18:37:00 CDT Stop date: 04/08/19 18:36:00 CDT, 30 day, 0 Heparin - one 4,000 unit, 4 Inactive [facility] time bolus for mL, Route: 2019 Medica l [facility] IVP, Drug Center form: INJ, ONCE, Dosing Weight 97.5, kg, Priority: STAT, Start date: 03/09/19 18:37:00 CDT, Stop date: 03/09/19 18:37:00 CDT, 0 Heparin 60 Route: IVP, No Longer [place] unit/kg Bolus PRN, 4,600 Active 2019 Medical (Heparin Dosing unit, 4.6 mL, Ce nter Weight) Drug form: INJ, PRN, Heparin Protocol, Start date: 03/09/19 18:37:00 CDT Stop date: 04/08/19 18:36:00 CDT, 30 day, 0 Plavix Notes: (Same Inactive [facility] as: Plavix) 2019 [facility] Magnesium Notes: WASTE: [facility] Sulf[facility] F/P - Sink; E 2019 [facility] Trash Bin potassium 40 mEq, 2 tab, Inactive [facility] as chloride 20 mEq Route: PO, 2019 Medic al oral tablet, Drug form: Center extended release ERTAB, ONCE, Dosing Weight 97.5, kg, Priority: STAT, Start date: 03/09/19 17:41:00 CDT, Stop date: 03/09/19 17:41:00 CDT, 0 [place] S PH-7.4 Notes: (Same Inactive [facility] (Bolus) IV as: Isolyte S 2019 Medical PH 7.4) Center Acetaminophen Notes: Do not Inactive [facility] exceed 4 2015 Medical gm/day. (Same Center as: Tylenol) rivaroxaban 20 20 mg = 1 tab, Active [place] MG Oral Tablet PO, QPM, # 30 2015 Med ical [Xarelto] tab, 0 Center Refill(s) lisinopril 20 mg 20 mg = 1 tab, Active [facility] oral tablet PO, BID, # 60 2015 Medica l tab, 1 Center Refill(s) valACYclovir 1 g 1 gm = 1 tab, Active [facility] oral tablet PO, Q8H, X 14 2015 Medica l day, # 42 tab, Center 0 Refill(s) atorvastatin 80 80 mg = 1 tab, Active [place] mg oral tablet PO, Bedtime, # 2015 Me dical 30 tab, 1 Center Refill(s) Levetiracetam 1,000 mg = 1 Active [place] 1000 MG Oral tab, PO, BID, 2015 Medic al Tablet # 60 tab, 2 Center Refill(s) Rocephin 1 gm, Route: Inactive [place] IVPB, Drug 2014 Medical form: PDR/INJ, Center [id number], Dosing Weight 110.3, kg, Start date: 03/22/15 8:00:00, Duration: 30 day, Stop date: 04/20/15 8:00:00 Valtrex Notes: (Same No Longer [facility] As: Valtrex) Active 2014 [facility] acyclovir + Notes: (Same [place] Sodium Chloride as: Zovirax) Active 2014 Med ical 0.9% IV 100 mL MEDICATION Ce nter WASTE Product Size: 500 mg Product Wasted: _0__ mg Magnesium Oxide Notes: (Same Inactive [facility] as: Mag-Ox 2014 Medical 400) Magnesium Center oxide [id number] elemental magnesium Dose=____mg magnesium oxide (___mg elemental magnesium) Potassium Notes: (Same Inactive [facility] Chloride 1.33 as: Potassium 2014 Medi see MEQ/ML Oral Chloride) Center Solution Lipitor Notes: Same as [place]er [place] Lipitor Active [facility] Medical Center Haloperidol Notes: (Same [place] as: Haldol) Active 2014 Medical [place] Sertraline Notes: (Same No Longer [place] as: Zoloft) Active 2014 [facility] pregabalin Notes: Same as [place] Longer [place] Lyrica Active 2014 [facility] Wellbutrin Notes: (Same No Longer [place] As: Active 2014 [facility] Wellbutrin) Center pantoprazole Notes: Tablet No Longer [place] should not be Active 2014 [facility] chewed or Center crushed. (Same as: Protonix) Keppra Notes: (Same No Longer [place] as:Keppra) Active 2014 [facility] Topamax Notes: (Same No Longer [place] As: Topamax) Active [address] [place] [address] potassium Notes: (Same Inactive [place] chloride as: Potassium 2014 [facility] Chloride) [place] heparin Notes: porcine No Longer a s heparin Active [address] [place] [address] Keppra + Sodium Notes: Same as No Longer [place] Chloride 0.9% IV Keppra Mix Active 2014 Med ical 100 mL with 100 mL Center NS, LR or D5W MEDICATION WASTE Product Size: 500 mg Product Wasted: ___ mg Lisinopril Notes: (Same No Longer [place] as: Prinivil, Active 2014 [facility] Zestril) [place] Hydralazine Notes: (Same [place] as: Active 2014 Medical Apresoline) [place] Push over 5 minutes Labetalol 10 mg, 2 mL, [place] Longer [place] Route: IVP, Active 2014 Medical Drug form: [place] INJ, Q15Min, Dosing Weight 110.3, kg, PRN Hypertension, Start date: 03/16/15 22:36:00, Duration: 30 day, Stop date: 04/15/15 22:35:00 Levetiracetam 1,000 mg, In[place] 100 MG/ML Oral Route: [place], 2015 Medica l Solution Drug form: [place] [Keppra] SOLN, Q12H, Dosing Weight 110.3, kg, Priority: NOW, Start date: 03/16/15 22:11:00, Duration: 30 day, Stop date: 04/15/15 21:00:00 Acyclovir Notes: (Same [place] Long[place] as: Zovirax) Active 2014 Medical MEDICATION Center WASTE Product Size: 500 mg Product Wasted: _0__ mg normal saline 1,000 mL, No Longer [place] 0.9% IV 1,000 mL Rate: 100 Active 2014 Medic al ml/hr, Infuse Center over: 10 hr, Route: IV, Dosing Weight 110.3 kg, Total Volume: 1,000, Start date: 03/16/15 21:31:00, Duration: 30 day, Stop date: 04/15/15 21:30:00 Valproate Sodium 500 mg, IV, No Longer [place] 100 mg/mL Q8H, 0 Active 2014 [facility] intravenous Refill(s) [place] solution haloperidol 2 mg 2 mg = 1 tab, No Longer [place] oral tablet PO, BID, 0 Active 2014 Medical Refill(s) [place] Folic Acid 1 MG 1 mg = 1 tab, No Longer [place] Oral Tablet PO, Daily, # Active 2015 Medical 30 tab, 0 Center Refill(s) pantoprazole 40 40 mg = 1 tab, Active H [place] mg oral enteric PO, Daily, # 2015 Med ical coated tablet 30 tab, 0 Center Refill(s) triazolam 0.25 0.25 mg = 1 No Longer [place] mg oral tablet tab, PO, Active 2015 Medical Daily, PRN Center Sleep, 0 Refill(s) NS w/K20 Special No Longer [place] Instructions: Active 2014 Medical 70 mls/hr Center atorvastatin 80 80 mg = 1 tab, No Longer [place] mg oral tablet PO, Bedtime, # Active 2015 Me dical 30 tab, 0 Center Refill(s) topiramate 50 MG 50 mg = 1 tab, Active [place] Oral Tablet PO, BID, # 60 2015 Medica l [Topamax] tab, 0 Center Refill(s) ondansetron 2 4 mg, IV, PRN, No Longer [place] mg/mL injectable # 1 ea, 0 Active 2014 Medic al solution Refill(s) Center sertraline 100 100 mg = 1 Active [place] mg oral tablet tab, PO, BID, 2015 Med ical 0 Refill(s) Center thiothixene 2 mg 2 mg = 1 cap, No Longer [place] oral capsule PO, BID, 0 Active 2014 Medical Refill(s) Center acyclovir 500 mg IV, Q8H, 0 No Longer [place] intravenous Refill(s) Active 2014 Medical injection Center Methocarbamol 250 mg, PO, No Longer [place] BID, 0 Active 2014 Medical Refill(s) Center Acetaminophen 650 mg, PO, No Longer [place] PRN, 0 Active 2014 Medical Refill(s) Center lisinopril 20 mg 20 mg = 1 tab, No Longer [place] oral tablet PO, BID, 0 Active 2014 Medical Refill(s) Center pregabalin 50 mg 50 mg = 1 cap, Active [facility] oral capsule PO, BID, # 60 2015 Medic al cap, 1 Center Refill(s) cefTRIAXone 1 g 1 gm, IV, No Longer [place] injection Q12H, # 10 ea, Active 2014 Medical 0 Refill(s) Center Levofloxacin 500 mg, Route: No Longer [place] PO, Drug form: Active 2014 Medical TAB, Daily, Center Dosing Weight 110.3, kg, Start date: 11/01/14 9:00:00, Duration: 30 day, Stop date: 11/30/14 9:00:00 Metronidazole 500 mg, 1 tab, No Longer H [place] 500 MG Oral Route: PO, Active 2014 Medical Tablet Drug form: Center TAB, Q8H, Dosing Weight 110.3, kg, Start date: 11/01/14 0:00:00, Duration: 30 day, Stop date: 11/30/14 16:00:00 Metronidazole 500 mg = 1 Active [place] 500 MG Oral tab, PO, Q8H, 2014 Medica l Tablet # 21 tab, 0 Center Refill(s) levofloxacin 500 500 mg = 1 Active [place] mg oral tablet tab, PO, 2015 Medical Daily, # 7 Center tab, 0 Refill(s) rivaroxaban 20 20 mg = 1 tab, Active [place] MG Oral Tablet PO, QPM, # 30 2015 Med ical [Xarelto] tab, 6 Center Refill(s) lisinopril 40 mg 40 mg = 1 tab, Active [place] oral tablet PO, Daily, # 2015 Medical 30 tab, 0 Center Refill(s) Bupropion 200 mg, PO, Active [place] Hydrochloride BID, # 60 tab, 2015 Med ical 100 MG Oral 0 Refill(s) Center Tablet [Wellbutrin] topiramate 50 MG 50 mg = 1 tab, Active [place] Oral Tablet PO, BID, # 120 2015 Medic al [Topamax] tab, 0 Center Refill(s) atorvastatin 80 80 mg = 1 tab, Active H [place] mg oral tablet PO, QPM, # 30 2015 Med ical tab, 0 Center Refill(s) Haldol 2 mg, Route: Inactive [place] PO, BID, 2015 Medical Dosing Weight Center 110.3, kg, Start date: 10/31/14 17:00:00, Duration: 30 day, Stop date: 11/30/14 9:00:00 Wellbutrin 200 mg, Route: [place] PO, Drug form: 2014 Medical TAB, BID, Center Dosing Weight 110.3, kg, Start date: 10/31/14 17:00:00, Duration: 30 day, Stop date: 11/30/14 9:00:00 Navane 2 mg, Route: Inactive [place] PO, BID, 2014 Medical Dosing Weight Center 110.3, kg, Start date: 10/31/14 17:00:00, Duration: 30 day, Stop date: 11/30/14 9:00:00 Zoloft 100 mg, Route: Inactive [place] PO, Drug form: 2014 Medical TAB, BID, Center Dosing Weight 110.3, kg, Start date: 10/31/14 17:00:00, Duration: 30 day, Stop date: 11/30/14 9:00:00 Xarelto 20 mg, Route: Inactive [place] PO, Drug form: 2014 Medical TAB, QPM, Center Dosing Weight 110.3, kg, Start date: 10/31/14 17:00:00, Duration: 30 day, Stop date: 11/29/14 17:00:00 tramadol 50 mg, 1 tab, Inactive [place] hydrochloride 50 Route: PO, 2014 Medi see MG Oral Tablet Drug form: [place] [Ultram] TAB, Q8H, Dosing Weight 110.3, kg, PRN Pain Score 4-6, Start date: 10/31/14 16:37:00, Duration: 30 day, Stop date: 11/30/14 16:36:00 Phenergan 25 mg, Route: [place] PO, Drug form: 2014 Medical TAB, Q6H, Center Dosing Weight 110.3, kg, PRN as needed for nausea/vomitin g, Start date: 10/31/14 16:36:00, Duration: 30 day, Stop date: 11/30/14 16:35:00 rivaroxaban 20 20 mg = 1 tab, Inactive H [place] MG Oral Tablet PO, QPM, # 30 2015 Med ical [Xarelto] tab, 6 Center Refill(s) Metronidazole 500 mg = 1 Inactive [place] 500 MG Oral tab, PO, Q8H, 2014 Medica l Tablet # 21 tab, 0 Center Refill(s) levofloxacin 500 500 mg = 1 Inactive [place] mg oral tablet tab, PO, 2014 Medical Daily, # 7 Center tab, 0 Refill(s) Wellbutrin Notes: (Same No Longer [place] As: Active 2014 Medical Wellbutrin) [place] Topamax Notes: (Same No Longer [place] As: Topamax) Active 2014 Medical "Do Not Crush" Center sennosides, HALF-WAY Notes: (Same No Longer H [place] as: Senokot) Active 2014 Medical Center metoprolol Notes: (Same No Longer [place] tartrate as: Lopressor) Active 2014 Medical 12.5mg=1/4 X Center 50 mg tab. Ondansetron Notes: (Same Inactive [place] as: Zofran) 2014 Medical Center Dexamethasone Notes: Inactive [place] Concentration: 2015 Medical 4mg/ml Center Naloxone Notes: Same as [place] Narcan 2014 [facility] Center Flumazenil Notes: ([facility] as: Romazicon) 2015 Medical Center Hydromorphone Notes: Same [place] as: Dilaudid 2014 [facility] Center Metoprolol Notes: (Same [place] as: Lopressor) 2014 Medical Push over 2 Center minutes Labetalol 10 mg, 2 mL, Inactive [place] Route: IVP, 2014 Medical Drug form: Center INJ, Q5Min, Dosing Weight 110.3, kg, PRN Elevated BP, Start date: 10/30/14 10:33:00, Duration: 5 doses or times, Stop date: Limited # of times Vancomycin 2001 mg: No Longer [place] infuse over Active 2014 Medical 2.5 hours Center Vancomycin FOR IV SET ONLY potassium Notes: (Same Inactive [facility] chloride as: Potassium 2014 Medical Chloride) Center magnesium 2 gm, 50 mL, Inactive [place] sulfate Route: IVPB2014 Medical Drug form: Center INJ, ONCE, Start date: 10/30/14 5:00:00, Stop date: 10/30/14 5:00:00 Lisinopril Notes: Shake No Longer [place] well before Active 2014 Medical use. Center Refrigerate For Oral Use Only. Compounded Product - formulation not commercially available Hydralazine Notes: (Same [place] Long[place] as: Active 2014 Medical Apresoline) Center Push over 5 minutes Bisacodyl Notes: (Same Inactive [place] As: Dulcolax, 2014 Medical Bisco-Lax) Center magnesium 2 gm, 50 mL, Inactive [place] sulfate Route: IVPB2014 Medical Drug form: Center INJ, ONCE, Start date: 10/29/14 4:00:00, Stop date: 10/29/14 4:00:00 Calcium Chloride 1,000 mg, Inactive [place] Route: IVPB, 2014 Medical ONCE, Dosing Center Weight 110.3, kg, Start date: 10/28/14 18:32:00, Stop date: 10/28/14 18:32:00 Vancomycin 2001 mg: Inactive [facility] infuse over 2015 Medical 2.5 hours Center Vancomycin FOR IV SET ONLY Vancomycin 2001 mg: No Longer Oxana infuse over Active 2014 Medical 2.5 hours Center Vancomycin FOR IV SET ONLY Ativan 2 mg, Route: Inactive Oxana IV, ONCE, 2015 Medical Dosing Weight Center 110.3, kg, Start date: 10/28/14 13:49:00, Stop date: 10/28/14 13:49:00 sodium phosphate Notes: (Same Inactive [facility] + Sodium as: Na 2014 Medical Chloride 0.9% IV Phosphate, Na C enter 250 mL PO4) potassium Notes: (Same Inactive [facility] chloride as: Potassium 2014 Medical Chloride) Center magnesium 2 gm, 50 mL, Inactive Oxana sulfate Route: IVPB2014 Medical Drug form: Center INJ, ONCE, Start date: 10/28/14 4:30:00, Stop date: 10/28/14 4:30:00 docusate sodium Notes: (Same No Longer [facility] 150 mg/15 mL as: Colace) Active 2014 Medical oral liquid Center chlorhexidine Notes: (Same No Longer [facility] gluconate 1.2 As: Peridex) Active 2014 Medic al MG/ML Mouthwash Center NS 1,000 mL 1,000 mL, No Longer Oxana Rate: 100 Active 2014 Medical ml/hr, Infuse Center over: 10 hr, Route: IV, Dosing Weight 110.3 kg, Total Volume: 1,000, Start date: 10/27/14 11:29:00, Duration: 30 day, Stop date: 11/26/14 11:28:00 pantoprazole Notes: Same [place] Long[place] as: Protonix Active 2014 Medical Center Protonix Notes: Tablet [place] Longer [place] should not be Active 2014 Medical chewed or Center crushed. (Same as: Protonix) Propofol 10 Notes: If No Longer [place] MG/ML Injectable Diprivan - Active 2014 [facility] see Suspension change bottle Center & tubing every 12 hr Per state nursing law propofol can only be given by a nurse if patient is intubated or being intubated (unless the nurse is a TRANSPORTATION DISPATCHER). Same as: Diprivan sodium Notes: (sodium Inactive [place] bicarbonate 75 bicarb 8.4% (1 2014 Me dical mEq + Sodium mEq/ml) 50 ml Cente r Chloride 0.45% VL) IV 925 mL ketAMINE 500 mg Notes: Per Inactive [place] + Sodium state nursing 2014 Medical Chloride 0.9% IV law ketamine Ce nter 245 mL can only be given by a nurse if patient is intubated or being intubated (unless the nurse is a TRANSPORTATION DISPATCHER). Michelle Notes: Same No Longer Oxana as: Keppra Active [address] [place] [address] Vancomycin 2001 mg: No Longer [place] infuse over Active 2014 [facility] 2.5 hours [place] Vancomycin FOR IV SET ONLY heparin additive 500 mL, Rate: No Longer Oxana 25,000 unit [14 21.16 ml/hr, Active 2014 Med ical unit/kg/hr] + Infuse over: Cente r Premix Diluent 23.6 hr, Dextrose 5% 500 Route: IV, mL Dosing Weight 75.56 kg, Total Volume: 500 mL, Start date: 10/26/14 20:00:00, Duration: 30 day, Stop date: 11/25/14 19:59:00 hydrocortisone Notes: (Same No Longer [place] 100 mg injection as: Active 2014 [facility] [place] [facility] Center physiological Notes: Total No Longer [place] irrigating ingredients in Active 2014 Medica l solution bag Na Center 140meq/L; K 4meq/L; HCO 35meq/L; Ca 3meq/L; Magnesium 1meq/L; CL 113meq/L; Glucose 100mg/dL; "Break seal Between compartments and mix before hanging" sennosides, HALF-WAY Notes: (Same No Longer [facility] as: Senokot) Active 2014 Medical [place] Lipitor Notes: Same as No Longer [place] Lipitor Active 2014 [facility] Center Xarelto Notes: (Same Inactive [place] as: Xarelto) 2015 Medical Administer Center with food chlorhexidine Notes: (Same No Longer [place] gluconate 1.2 As: Peridex) Active 2014 Medic al MG/ML [place] Center nxstage pureflow 1,000 mL, Inactive [place] [id number] 5000ml Route: 2014 Medical SOLN 1000 mL DIALYSIS, Center Irrigation Site: Vein, femoral, Rt, 3,000 ml/hr, 0.3 hr, Total Volume: 1,000, "For Irrigation Only", Start date: 10/26/14 16:50:00, Duration: 1 day, Stop date: 10/27/14 16:49:00 Ketamine Notes: Per No Longer [facility] Active 2014 [facility] ketamine Center can only be given by a nurse if patient is intubated or being intubated (unless the nurse is a TRANSPORTATION DISPATCHER). lidocaine 1% Notes: (Same No Longer [place] as: Xylocaine) Active 2014 [facility] Ketamine Notes: Per Inactive [address] law ketamine Center can only be given by a nurse if patient is intubated or being intubated (unless the nurse is a TRANSPORTATION DISPATCHER). Calcium Chloride 1,000 mg, 10 Inactive [place] mL, Route: 2014 Medical IVPB, ONCE, Center Dosing Weight 110.3, kg, Start date: 10/26/14 15:40:00, Stop date: 10/26/14 15:40:00 Iohexol Special Inactive [place] Instructions: 2015 Medical Dose = Center 2.2ml/kg, Max dose = 100ml -- "To be infused by Radiology Staff ONLY" Ketamine Notes: Total Inactive [place] Concentration 2015 Medical = 1mg/ml Total Center Volume = 100ml Infusion Rate= Begin Infusion at an initial rate of 0.1mg/kg/hr to a Maximum Rate of 0.25mg/kg/hr Please place a Med Request 2 hours before the next dose is needed. EPINEPHrine 4 mg 250 mL, Rate: No Longer [place] + Sodium Titrate, Active 2014 Medical Chloride 0.9% Dosing Weight Cent er (titrate) 250 mL 110.3, kg, Route: IV, Total Volume: 254, Start Date: 10/26/14 13:54:00, Duration: 30 day, Stop date: 11/25/14 13:53:00, Replace Every: 24 hr Etomidate Notes: (Same Inactive [facility] as: Amidate). 2015 Medical Per state Center nursing law etomidate can only be given by a nurse if patient is intubated or being intubated (unless the nurse is a TRANSPORTATION DISPATCHER). sodium Notes: (sodium Inactive [place] bicarbonate 8.4% bicarb 8.4% (1 2014 Medical mEq/ml) 50 ml Center syringe) Succinylcholine Notes: Same Inactive [facility] as: Anectine 2014 [facility] Fentanyl 1,000 No Longer [facility] microgram, 20 Active 2014 Medical mL, Rate: Center Titrate as directed, Dosing Weight 110.3, kg, Route: IV, Total Volume: 20 mL, Start Date: 10/26/14 13:52:00, Duration: 30 day, Stop date: 11/25/14 13:51:00, Replace Every: 24 hr Midazolam 1 Notes: (Same [place] Longer [place] MG/ML Injectable as: Versed) Active 2014 [facility] ical Solution Center Insulin regular Notes: (Same No Longer [facility] 100 unit + as: Humulin R Active 2014 [facility] Sodium Chloride and NovoLIN R) C enter 0.9% (titrate) (Do not 99 mL shake) Dextrose 50% 6.25 gm, 12.5 No Longer [place] Syringe mL, Route: Active 2014 [facility] IVP, Drug Center Form: INJ, Dosing Weight 110.3, kg, PRN, PRN Abnormal Lab Result, Start date: 10/26/14 13:38:00, Duration: 30 day, Stop date: 11/25/14 13:37:00 nxstage pureflow Notes: Total Inactive [facility] [id number] 5000ml ingredients in 2014 Me dical 4,600 mL + bag Na Center albumin human 140meq/L; K 25% intravenous 4meq/L; HCO solution 100 gm 35meq/L; Ca 3meq/L; Magnesium 1meq/L; CL 113meq/L; Glucose 100mg/dL; "Break seal Between compartments and mix before hanging" Calcium Chloride 2 gm, 20 mL, No Longer [place] Route: IVPB, Active 2014 Medical PRN, Dosing Center Weight 110.3, kg, PRN Abnormal Lab Result, Via central line, Start date: 10/26/14 13:20:00, Duration: 30 day, Stop date: 11/25/14 13:19:00 Magnesium 2 gm, 50 mL, [place] Longer [place] Sulfate Route: IVPB, Active 2014 Medical Drug form: Center INJ, PRN, Dosing Weight 110.3, kg, PRN Abnormal Lab Result, Via central line, Start date: 10/26/14 13:20:00, Duration: 30 day, Stop date: 11/25/14 13:19:00 sodium phosphate 15 mmol, 5 mL, No Longer [place] + Sodium Route: IVPB, Active 2014 Medical Chloride 0.9% IV PRN, Dosing Antionette ter 250 mL Weight 110.3, kg, PRN Abnormal Lab Result, Via central line, Start date: 10/26/14 13:20:00, Duration: 30 day, Stop date: 11/25/14 13:19:00 sodium Notes: (sodium No Longer [facility] s bicarbonate 75 bicarb 8.4% (1 Active 2014 Me dical mEq + Sodium mEq/ml) 50 ml Cente r Chloride 0.45% VL) IV 925 mL vasopressin 80 Notes: (Same No Longer [place] unit + Sodium As: Pitressin) Active 2014 [facility] ical Chloride 0.9% Center (titrate) 246 mL Flagyl Notes: (Same No Longer [facility] as: Flagyl) Active 2014 [facility] Avoid alcohol. Center cefepime Notes: (Same No Longer [facility] As: Maxipime) Active 2014 Medical Center Vancomycin 2001 mg: Inactive [place] infuse over 2015 [facility] 2.5 hours [place] Vancomycin FOR IV SET ONLY PlasmaLyte A 2,000 mL, [place] Longer [place] PH-7.4 2,000 mL Rate: 2,000 Active 2014 [facility] see ml/hr, Infuse Center over: 1 hr, Route: IV, Dosing Weight 110.3 kg, Total Volume: 2,000, Start date: 10/26/14 9:06:00, Duration: 30 day, Stop date: 11/25/14 9:05:00 Wellbutrin Notes: (Same No Longer [place] as As: Active 2014 Medical Wellbutrin) Center Haldol Notes: (Same Inactive [facility] as: Haldol) 2014 Medical Center Topamax Notes: (Same Inactive [facility] As: Topamax) 2015 Medical "Do Not Crush" Center Saline Flush Notes: (Same No Longer [place] 0.9% as: BD Active 2014 Medical Posiflush) Center docusate sodium Notes: (Same No Longer [place] 100 mg oral as: Colace) Active 2014 Medical capsule Center pneumococcal Notes: (Same [place] capsular as: Pneumovax 2014 Medical polysaccharide 23) Center type 1 vaccine / Refrigerate pneumococcal capsular polysaccharide type 10A vaccine / pneumococcal capsular polysaccharide type 11A vaccine / pneumococcal capsular polysaccharide type 12F vaccine / pneumococcal capsular polysacchar influenza virus Notes: (Same Inactive [facility] vaccine, as: Fluzone 2014 Medical inactivated Quadrivalent) Center Levophed Notes: Not for No Longer [place] as Bitartrate 32 mg direct Active 2014 Medical + Sodium administration Center Chloride 0.9% - DILUTE. (titrate) 218 mL Protect from light. (Same as:Levophed). Administer by either central venous catheter or peripherally-i nserted central catheter (PICC) line. Albumin Human, Notes: Lot #: Inactive [facility] HALF-WAY 250 MG/ML 2014 Medi see Injectable Mfg: Center Solution (Same as: Plasbumin-25) "blood product derivative" Protonix Notes: (Same Inactive [facility] as: Protonix) 2014 [facility] Albumin Human, Notes: LOT#: Inactive [facility] HALF-WAY 50 MG/ML 2014 Medic al Injectable Mfg: Center Solution (Same as: Albuminar) "blood product derivative&quo t; Versed Notes: (Same No Longer [facility] as: Versed) Active 2014 [facility] magnesium 2 gm, 50 mL, Inactive [place] sulfate Route: IVPB, 2014 Medical Drug form: Center INJ, Q2H, Start date: 10/26/14 2:00:00, Duration: 2 doses or times, Stop date: 10/26/14 4:00:00 Iohexol Special Inactive [place]ana Instructions: 2015 Medical Dose = Center 2.2ml/kg, Max dose = 100ml -- "To be infused by Radiology Staff ONLY" magnesium 4 gm, 100 mL, [place] sulfate Route: IVPB2014 Medical Drug form: Center INJ, ONCE, Start date: 10/26/14 0:44:00, Stop date: 10/26/14 0:44:00 Reglan Notes: (Same No Longer [facility] as: Reglan) Active 2014 [facility] Valproic Acid 1,000 mg, [place]active [place] 100 MG/ML Route: IV, 2014 Medical Injectable ONCE, Dosing Center Solution Weight 110.3, kg, Priority: NOW, Start date: 10/26/14 0:16:00, Stop date: 10/26/14 0:16:00 Dexamethasone 10 mg, 1 mL, Inactive [place] Route: IVP, 2014 Medical Drug form: Center INJ, ONCE, Dosing Weight 110.3, kg, Start date: 10/26/14 0:15:00, Stop date: 10/26/14 0:15:00 Reglan 10 mg, Route: Inactive [facility] IVP, Drug 2014 Medical form: INJ, Center Q6H, Dosing Weight 110.3, kg, Priority: NOW, Start date: 10/26/14 0:14:00, Duration: 30 day, Stop date: 11/25/14 0:00:00 NS 1,000 mL 1,000 mL, Inactive Oxana Rate: 150 2014 Medical ml/hr, Infuse Center over: 6.7 hr, Route: IV, Dosing Weight 110.3 kg, Total Volume: 1,000, Start date: 10/26/14 0:01:00, Duration: 30 day, Stop date: 11/25/14 0:00:00 Sodium Chloride 1,000 mL, No Longer [place] 0.154 MEQ/ML 1,000 ml/hr, Active 2014 Medica l Injectable Infuse Over: 1 Center Solution hr, Route: IV, 1,000, Drug form: INJ, ONCE, Priority: STAT, Dosing Weight 110.3 kg, Start date: 10/25/14 23:54:00, Duration: 1 doses or times, Stop date: 10/25/14 23:54:00 Navane 2 mg, PO, BID, On Hold [place] 0 Refill(s) 2014 [facility] Bupropion 200 mg = 2 On Hold [place] Hydrochloride tab, PO, BID, 2014 Medi see 100 MG Oral 0 Refill(s) [place] Tablet [Wellbutrin] tramadol 50 mg = 1 tab, On Hold [place] hydrochloride 50 PO, Q8H, Pain 2014 edical MG Oral Tablet Score 4-6, 0 Cent er [Ultram] Refill(s) topiramate 50 MG 50 mg = 1 tab, No Longer [place] Oral Tablet PO, BID, # 60 Active 2014 Medica l [Topamax] tab, 0 Center Refill(s) Promethazine 25 mg = 1 tab, On Hold [place] Hydrochloride 25 PO, Q6H, 2014 Medica l MG Oral Tablet Nausea, # 15 Cent er [Phenergan] tab, 0 Refill(s) rivaroxaban 20 20 mg = 1 tab, No Longer [place] MG Oral Tablet PO, QPM, 0 Active 2014 Medica l [Xarelto] Refill(s) [place] Esomeprazole 40 = 1 tab, PO, Inactive [place] MG Enteric Daily, 0 2014 Medical Coated Capsule Refill(s) [place] [Nexium] 120 ACTUAT 1 spray, Inactive [place] Triamcinolone NASAL, Daily, 2014 [facility] Acetonide 0.055 # 17 gm, 0 Cente r MG/ACTUAT Nasal Refill(s) Inhaler [Nasacort] atorvastatin 80 80 mg = 1 tab, Active H [place] MG Oral Tablet PO, Daily, 0 2014 [facility] see [Lipitor] Refill(s) [place] Haldol 2 mg, PO, BID, On Hold [place] 0 Refill(s) 2014 [facility] Acetaminophen Notes: Max No Longer [place] acetaminophen Active 2014 Medical = 4000mg/day [place] (4 gm/day). (Same as: Tylenol) Sodium Chloride 1,000 mL, Inactive [place] 0.154 MEQ/ML 1,000 ml/hr, 2014 Medica l Injectable Infuse Over: 1 Center Solution hr, Route: IV, 1,000, Drug form: INJ, ONCE, Priority: STAT, Dosing Weight 96.364 kg, Start date: 10/25/14 21:35:00, Duration: 1 doses or times, Stop date: 10/25/14 21:35:00 Saline Flush Notes: (Same No Longer [place] 0.9% as: BD Active 2014 [facility] Posiflush) [place] Ondansetron Notes: (Same [place] Longer [place] as: Zofran) Active [address] [place] [address] NS 1,000 mL 1,000 mL, No Longer [place] Rate: 100 Active 2014 Medical ml/hr, Infuse Center over: 10 hr, Route: IV, Dosing Weight 96.364 kg, Total Volume: 1,000, Start date: 10/25/14 21:30:00, Duration: 30 day, Stop date: 11/24/14 21:29:00 norepinephrine Notes: Not for No Longer [place] 16 mg + Sodium direct Active 2014 Medical Chloride 0.9% administration Antionette ter (titrate) 234 mL - DILUTE. Protect from light. (Same as:Levophed). Administer by either central venous catheter or peripherally-i nserted central catheter (PICC) line. Regular Insulin, 60 units) No Longer H [place] Human 100 UNT/ML Stable for 28 Active 2014 edical Injectable days at room Center Solution temperature Expires in days from Date Dextrose 50% 25 gm, 50 mL, No Longer [place] Syringe Route: IVP, Active 2014 Medical Drug Form: Center INJ, Dosing Weight 96.364, kg, PRN, PRN Abnormal Lab Result, Start date: 10/25/14 21:28:00, Duration: 30 day, Stop date: 11/24/14 21:27:00 Coumadin 2 mg, 1 tab, Inactive [facility] Route: PO, 2013 Medical Drug form: Center TAB, Q5PM, Start date: 11/14/13 17:00:00, Duration: 1 doses or times, Stop date: 11/14/13 17:00:00Nurse to ensure documentation of patient education per anticoagulatio n policy. Avoid large intake of vitamin-K containing foods diet. (Same As: Coumadin) Warfarin 5 mg, 1 tab, Inactive [facility] Route: PO, 2013 Medical Drug form: Center TAB, Q5PM, Dosing Weight 96.364, kg, Start date: 11/14/13 17:00:00, Duration: 1 doses or times, Stop date: 11/14/13 17:00:00Nurse to ensure documentation of patient education per anticoagulatio n policy. Avoid large intake of vitamin-K containing foods diet. (Same As: Coumadin) Levetiracetam 500 mg = 1 Active [place] 500 MG Oral tab, PO, Q12H, 2013 Medic al Tablet [Keppra] # 60 tab, 0 Cent er Refill(s) Levetiracetam 500 mg, 1 tab, No Longer 11/14[facility] [place] 500 MG Oral Route: PO, Active 2013 Medical Tablet [Keppra] Drug form: Cente r TAB, Q12H, Dosing Weight 96.364, kg, Start date: 11/14/13 13:00:00, Duration: 30 day, Stop date: 12/14/13 9:00:00(Same as:Keppra) pneumococcal 0.5 ml, Route: Inactive 11/14[facility] Oxana capsular IM, Drug Form: 2013 Medical polysaccharide INJ, Daily, Cente r type 1 vaccine / Start date: pneumococcal 11/14/13 capsular 9:00:00, polysaccharide Duration: 1 type 10A vaccine doses or / pneumococcal times, Stop capsular date: 11/14/13 polysaccharide 9:00:00(Same type 11A vaccine as: Pneumovax / pneumococcal 23) capsular Refrigerate polysaccharide type 12F vaccine / pneumococcal capsular polysacchar Benadryl 25 mg, 1 cap, [place] Longer [place] Route: PO, Active 2013 Medical Drug form: [place] CAP, Bedtime, Dosing Weight 96.364, kg, PRN Insomnia, Start date: 11/13/13 22:09:00, Duration: 1 day, Stop date: 11/14/13 22:08:00(Same as: Benadryl) atorvastatin 80 mg, 2 tab, No Longer [place] Route: PO, Active 2013 Medical Drug form: [place] TAB, Bedtime, Dosing Weight 96.364, kg, Start date: 11/13/13 21:00:00, Duration: 30 day, Stop date: 12/12/13 21:00:00(Same as: Lipitor) Coumadin 5 mg, 1 tab, Inactive [place] Route: PO2013 Medical Drug form: [place] TAB, Q5PM, Dosing Weight 96.364, kg, Start date: 11/13/13 17:00:00, Duration: 1 doses or times, Stop date: 11/13/13 17:00:00Nurse to ensure documentation of patient education per anticoagulatio n policy. Avoid large intake of vitamin-K containing foods diet. (Same As: Coumadin) Ativan 0.5 mg, 1 tab, Inactive [place] Route: PO2013 Medical Drug form: [place] TAB, ONCE, Dosing Weight 96.364, kg, Start date: 11/13/13 16:00:00, Stop date: 11/13/13 16:00:00(Same as: Ativan) Ativan 0.5 mg, 1 tab, Inactive [facility] Route: PO2013 Medical Drug form: [place] TAB, ONCE, Dosing Weight 96.364, kg, Start date: 11/13/13 15:08:00, Stop date: 11/13/13 15:08:00(Same as: Ativan) atorvastatin 80 80 mg = 1 tab, No Longer [place] MG Oral Tablet PO, Bedtime Active 2013 Medic al [Lipitor] [place] Thiothixene 5 MG 5 mg = 1 cap, Active H [place] Oral Capsule PO, BID, # 60 2013 Medic al [Navane] cap [place] haloperidol 5 mg 5 mg = 1 tab, Active H [place] oral tablet PO, BID, # 60 2013 Medica l tab Center Sertraline 100 100 mg = 1 Active [place] as MG Oral Tablet tab, PO, BID, 2013 Med ical [Zoloft] # 60 tab [place] 12 HR Bupropion 200 mg = 1 Active [place] Hydrochloride tab, PO, BID, 2013 Medi see 200 MG Extended # 60 tab Center Release Tablet [Wellbutrin] lisinopril 40 mg 40 mg = 1 tab, Active [facility] oral tablet PO, Daily 2013 [facility] verapamil 300 300 mg = 1 Active [place] mg/24 hours oral cap, PO, Daily 2013 [facility] extended release Saline Flush 5 ml, Route: No Longer [place] 0.9% IVP, Drug Active 2013 Medical Form: INJ, [place] Dosing Weight 96.364, kg, Q12H, Start date: 11/13/13 9:00:00, Duration: 30 day, Stop date: 12/12/13 21:00:00(Same as: BD Posiflush) Aspirin 325 MG 325 mg, 1 tab, Inactive [facility] Enteric Coated Route: PO, 2013 Medica l Tablet Drug form: [place] ECTAB, Daily, Dosing Weight 96.364, kg, Start date: 11/13/13 9:00:00, Duration: 30 day, Stop date: 12/12/13 9:00:00(Do Not Crush) Do not crush or chew. Versed 1 mg, 1 mL, No Longer [facility] Route: IV, Active 2013 Medical Drug form: [place] INJ, PRN, Dosing Weight 96.364, kg, PRN Other -See Comment, Start date: 11/13/13 7:06:00, Duration: 30 day, Stop date: 12/13/13 7:05:00(Same as: Versed) Iohexol 85 mL, Route: Inactive [facility] IVP, Drug 2013 Medical Form: [facility] Dosing Weight 96.364, kg, ONCALL, STAT, Start date: 11/13/13 6:04:00, Duration: 1 doses or times, Stop date: 11/14/13 0:00:00, Dose = 2.2ml/kg, Max dose = 100ml -- "To be infused by Radiology Staff ONLY"(Same as:Omnipaque 350). Enoxaparin 40 mg, 0.4 mL, Inactive [place] Route: SUB-Q, 2013 Medical Drug form: Center INJ, [id number], Dosing Weight 96.364, kg, Start date: 11/13/13 6:00:00, Duration: 30 day, Stop date: 12/12/13 6:00:00(Same as: Lovenox) Saline Flush 5 ml, Route: No Longer [place] 0.9% IVP, Drug Active 2013 Medical Form: INJ, Center Dosing Weight 96.364, kg, PRN, PRN Line Flush, Start date: 11/13/13 5:15:00, Duration: 30 day, Stop date: 12/13/13 5:14:00(Same as: BD Posiflush) Acetaminophen 650 mg, 2 tab, No Longer [facility] Route: PO, Active 2013 Medical Drug form: Center TAB, Q4H, Dosing Weight 96.364, kg, PRN Pain 1-3/Temp > 99.5 F, Start date: 11/13/13 5:15:00, Duration: 30 day, Stop date: 12/13/13 5:14:00Do not exceed 4 gm/day. (Same as: Tylenol) Sodium Chloride 1,000 mL, No Longer [place] 0.154 MEQ/ML Rate: 100 Active 2013 Medical Injectable ml/hr, Infuse Center Solution over: 10 hr, Route: IV, Dosing Weight 96.364 kg, Total Volume: 1,000, Start date: 11/13/13 5:15:00, Duration: 30 day, Stop date: 12/13/13 5:14:00 Coumadin 7 mg, PO, Active [place] Daily, 0 2013 Medical Refill(s) Center Saline Flush 5 mL, Route: No Longer [place] 0.9% IVP, Drug Active 2013 Medical Form: INJ, Center Dosing Weight 96.364, kg, PRN, PRN Line Flush, Start date: 11/13/13 3:58:00, Duration: 30 day, Stop date: 12/13/13 3:57:00preserv ative free. Navane 2 mg oral 2 mg, PO, BID, PO Active [facility] 05/12[facility] [place] capsule 60 tab, 2012 Medical Substitution Center Allowed, CAP Zoloft 100 mg 100 mg, 1 tab, PO Active [facility] 05/12[facility] [place] oral tablet PO, BID, 60 2012 Medical tab, Center Substitution Allowed, TAB haloperidol 2 mg 2 mg, 1 tab, PO Active [facility] 05/12[facility] [place] oral tablet PO, BID, 60 2012 Medical tab, Center Substitution Allowed Wellbutrin 100 100 mg, 1 tab, PO Active [facility] 05/12[facility] [place] mg oral tablet PO, BID, 60 2012 Medic al tab, Center Substitution Allowed, TAB Levaquin 750 mg 750 mg, 1 tab, PO Active [facility] 05/12[facility] H [place] oral tablet PO, Q24H, 7 2012 Medical tab, Center Substitution Allowed, TAB Flagyl ER 750 mg 750 mg, 1 tab, PO No Longer [facility] 05/12[facility] oral tablet, PO, Daily, 7 Active 2012 Medica l extended release tab, [place] Substitution Allowed, ERTAB metoprolol 50 mg, 1 tab, PO No Longer [facility] 05/12[facility] [place] tartrate Route: PO, Active 2012 Medical Drug form: [place] TAB, Q12H, Dosing Weight 98.182, kg, Start date: 05/11/13 21:00:00, Duration: 30 day, Stop date: 06/10/13 9:00:00 Multiple 1 cap, PO, PO Active [facility] 05/11[facility] [place] Vitamins oral Daily, 30 cap, 2012 Med ical capsule Substitution Center Allowed, Maintenance, CAP atorvastatin 80 80 mg, 1 tab, PO Active [facility] 05/11[facility] [place] mg oral tablet PO, Bedtime, 2012 Medi see 30 tab, Center Substitution Allowed, TAB aspirin 81 mg 81 mg, 1 tab, PO Active [facility] 05/11[facility] [place] tablet, enteric PO, Daily, 30 2012 Me dical coated tab, Center Substitution Allowed, ECTAB metoprolol 25 mg, 1 tab, PO No Longer [facility] [place] tartrate Route: PO, Active 2012 Medical Drug form: [place] TAB, ONCE, Dosing Weight 98.182, kg, Priority: STAT, Start date: 05/11/13 8:38:00, Stop date: 05/11/13 8:38:00 Flagyl 500 mg, 100 IVPB No Longer [facility] mL, Route: Active 2012 Medical IVPB, Drug Center form: INJ, [id number], Dosing Weight 98.182, kg, Start date: 05/10/13 18:00:00, Duration: 30 day, Stop date: 06/09/13 10:00:00 azithromycin + 500 mg, Route: IVPB No Longer [facility] [place] Sodium Chloride IVPB, [id number], Active 2012 M edical 0.9% IV 250 mL Dosing Weight Antionette ter 98.182, kg, Start date: 05/10/13 18:00:00, Duration: 30 day, Stop date: 06/08/13 18:00:00 Neutra-Phos 1 pkt, Route: PO No Longer [facility] [place] PO, Drug Form: Active 2012 Medical PDR/REC, Center Dosing Weight 98.182, kg, ONCE, Start date: 05/10/13 17:45:00, Stop date: 05/10/13 17:45:00 magnesium 1 gm, Route: IVPB No Longer [facility] [place] sulfate IVPB, Drug Active 2012 Medical form: INJ, Center ONCE, Dosing Weight 98.182, kg, Start date: 05/10/13 17:45:00, Stop date: 05/10/13 17:45:00 heparin 5,000 unit, 1 SUB-Q No Longer [facility] mL, Route: Active 2012 Medical SUB-Q, Drug Center form: INJ, Q8H, Dosing Weight 98.182, kg, Start date: 05/10/13 16:00:00, Duration: 30 day, Stop date: 06/09/13 8:00:00 aspirin 81 mg, 1 tab, PO No Longer [facility] Route: PO, Active 2012 Medical Drug form: Center ECTAB, Daily, Dosing Weight 98.182, kg, Start date: 05/10/13 13:00:00, Duration: 30 day, Stop date: 06/09/13 9:00:00 azithromycin 250 250 mg, 1 tab, PO No Longer [facility] mg oral tablet Route: PO, Active 2012 Medica l Drug form: Center TAB, [id number], Dosing Weight 98.182, kg, Start date: 05/10/13 8:00:00, Duration: 4 doses or times, Stop date: 05/13/13 8:00:00 Versed 1 mg, 1 mL, IV No Longer [place] Route: IV, Active 2012 Medical Drug form: [place] INJ, ONCE, Dosing Weight 98.182, kg, Start date: 05/10/13 7:41:00, Stop date: 05/10/13 7:41:00 magnesium 2 gm, 50 mL, IVPB No Longer [place] sulfate Route: IVPB, Active 2012 Medical Drug form: [place] INJ, Q2H, Dosing Weight 98.182, kg, Total Dose = 4 gm, Start date: 05/10/13 6:00:00, Duration: 2 doses or times, Stop date: 05/10/13 8:00:00, For Mg = 1.5 - 1.7 mg/dLFor Mg = 1.5 - 1.7 mg/dL Lipitor 80 mg, 1 tab, PO No Longer [place] Route: PO, Active 2012 Medical Drug form: [place] TAB, Bedtime, Dosing Weight 113.636, kg, Start date: 05/09/13 21:00:00, Duration: 30 day, Stop date: 06/07/13 21:00:00 Mag-Ox 400 400 mg, 1 tab, PO No Longer [place] Route: PO, Active 2012 Medical Drug form: [place] TAB, On Adm, Start date: 05/09/13 19:00:00, Duration: 1 doses or times, Stop date: 05/09/13 21:00:00 magnesium oxide 500 mg, Route: PO No Longer [place] [facility] 500 mg oral PO, Drug form: Active 2012 Medical tablet TAB, ONCE, [place] Dosing Weight 98.182, kg, Start date: 05/09/13 18:08:00, Stop date: 05/09/13 18:08:00 thiamine 100 mg, 1 tab, PO No Longer Zwiener Tommy as Route: PO, Active 2012 Medical Drug form: [place] TAB, Daily, Dosing Weight 98.182, kg, Start date: 05/09/13 9:00:00, Duration: 30 day, Stop date: 06/07/13 9:00:00 folic acid 1 mg, 1 tab, PO No Longer Gill 05/09[facility] Tommy as Route: PO, Active 2012 Medical Drug form: Center TAB, Daily, Dosing Weight 98.182, kg, Start date: 05/09/13 9:00:00, Duration: 30 day, Stop date: 06/07/13 9:00:00 multivitamin 1 tab, Route: PO No Longer Gill 05/09[facility] PO, Drug Form: Active 2012 Medical TAB, Dosing Center Weight 98.182, kg, Daily, Start date: 05/09/13 8:10:00, Duration: 30 day, Stop date: 06/07/13 9:00:00 heparin 5,000 unit, 1 SUB-Q No Longer [facility] mL, Route: Active 2012 Medical SUB-Q, Drug [place] form: INJ, Q8H, Dosing Weight 98.182, kg, Start date: 05/09/13 8:00:00, Duration: 30 day, Stop date: 06/08/13 0:00:00 Plavix 75 mg, 1 tab, PO No Longer [facility] Route: PO, Active 2012 Medical Drug form: Center TAB, Daily, Dosing Weight 98.182, kg, Start date: 05/09/13 8:00:00, Duration: 30 day, Stop date: 06/07/13 9:00:00 Rocephin 1 gm, Route: IVPB No Longer Tom 05/09[facility] IVPB, Drug Active 2012 Medical form: PDR/INJ, Center [id number], Dosing Weight 98.182, kg, Start date: 05/09/13 8:00:00, Duration: 4 doses or times, Stop date: 05/13/13 8:00:00 insulin regular 3 unit, 0.03 SUB-Q No Longer [facility] 05/09[facility] 100 units/mL mL, Route: Active 2012 Medical human SUB-Q, Drug Center recombinant form: SOLN, PRN, Dosing Weight 98.182, kg, PRN Abnormal Lab Result, Start date: 05/09/13 7:40:00, Duration: 30 day, Stop date: 06/08/13 7:39:00 Dextrose 50% 6.25 gm, 12.5 IVP No Longer Tom Oxana Syringe mL, Route: Active 2012 Medical IVP, Drug Center Form: INJ, Dosing Weight 98.182, kg, PRN, PRN Abnormal Lab Result, Start date: 05/09/13 7:40:00, Duration: 30 day, Stop date: 06/08/13 7:39:00 NS (Bolus) IV 1,000 mL, IV No Longer Gill Tommy as 1,000 mL Rate: 1,000 Active 2012 Medical ml/hr, Infuse Center over: 1 hr, Route: IV, Dosing Weight 98.182 kg, Total Volume: 1,000, Priority: STAT, Start date: 05/09/13 7:37:00, Duration: 1 doses or times, Stop date: 05/09/13 8:36:00, Bolus DoseBolus Dose azithromycin 500 mg, 2 tab, PO No Longer Gill Oxana Route: PO, Active 2012 Medical Drug form: Center TAB, ONCE, Dosing Weight 98.182, kg, Start date: 05/09/13 7:35:00, Stop date: 05/09/13 7:35:00 Omnipaque 85 mL, Route: IVP No Longer Tom [place] 350mg/ml IVP, Drug Active 2012 Medical Form: SOLN, Center Dosing Weight 98.182, kg, ONCALL, STAT, Start date: 05/09/13 6:49:00, Duration: 1 doses or times, Dose = 2.2ml/kg, Max dose = 100ml -- "To be infused by Radiology Staff ONLY"Dose = 2.2ml/kg, Max dose = 100ml -- "To be infused by Radiology Staff ONLY" NS 1000 mL 1,000 mL, IV No Longer Sona Oxana Rate: 150 Active 2012 Medical ml/hr, Infuse Center over: 6.7 hr, Route: IV, Dosing Weight 113.636 kg, Total Volume: 1,000, Start date: 05/08/13 22:31:00, Duration: 30 day, Stop date: 06/07/13 22:30:00 levalbuterol 0.63 mg, 3 mL, NEB No Longer Read [place] Route: NEB, Active Brice 2012 Medical Drug form: [place] SOLN, PRN, Dosing Weight 113.636, kg, PRN Respiratory Protocol, Start date: 05/08/13 21:59:00, Duration: 30 day, Stop date: 06/07/13 21:58:00 Tylenol 325 mg, 1 tab, PO No Longer [place] Route: PO, Active Br[place] 2012 Medical Drug form: [place] TAB, Q4H, Dosing Weight 113.636, kg, PRN Pain, Start date: 05/08/13 21:58:00, Duration: 30 day, Stop date: 06/07/13 21:57:00 Saline Flush 5 ml, Route: IVP No Longer [place] 0.9% IVP, Drug Active Brice 2012 Medical Form: INJ, [place] Dosing Weight 113.636, kg, Q12H, Start date: 05/08/13 21:00:00, Duration: 30 day, Stop date: 06/07/13 9:00:00 docusate 100 mg, 1 cap, PO No Longer Read [place] Route: PO, Active Brice 2012 Medical Drug form: [place] CAP, Q12H, Dosing Weight 113.636, kg, Start date: 05/08/13 21:00:00, Duration: 30 day, Stop date: 06/07/13 9:00:00 Saline Flush 5 ml, Route: IVP No Longer [place] 0.9% IVP, Drug Active Brice 2012 Medical Form: INJ, Center Dosing Weight 113.636, kg, PRN, PRN Line Flush, Start date: 05/08/13 17:58:00, Duration: 30 day, Stop date: 06/07/13 17:57:00 caffeine 100 mg 100 mg, 1 tab, PO Active Ava H [place] oral tablet PO, Q6H, 2011 Medical tab, Center Substitution Allowed, TAB aspirin 325 mg 325 mg, 1 tab, PO Active [place] tablet PO, Daily, 30 2011 Medical tab, Center Substitution Allowed, TAB verapamil 40 mg 40 mg, 1 tab, PO No Longer [place] oral tablet PO, TID, 90 Active 2011 Medical tab, Center Substitution Allowed, TAB caffeine 100 mg 100 mg, 1 tab, PO No Longer [place] oral tablet PO, Q3H, 12 Active 2011 Medical tab, Center Substitution Allowed, TAB caffeine 250 mg, Route: IVPB No Longer Quang [place] IVPB, ONCE, Active 2011 Medical Dosing Weight Center 113.636, kg, Start date: 07/21/12 12:15:00, Stop date: 07/21/12 12:15:00 influenza virus 0.5 ml, Route: IM No Longer [facility] vaccine, IM, Drug Form: Active 2011 Medical inactivated INJ, Start Center date: 07/21/12 12:08:00, Stop date: 07/21/12 12:08:00 verapamil 80 mg 80 mg, 1 tab, PO Active Quang [facility] oral tablet PO, TID, 90 2011 Medical tab, 3, 3, Center Substitution Allowed, TAB Haldol 2 mg, 2 tab, PO No Longer [facility] Route: PO, Active 2011 Medical Drug form: Center TAB, Daily, Dosing Weight 113.636, kg, Start date: 07/21/12 9:00:00, Duration: 30 day, Stop date: 08/19/12 9:00:00 aspirin 325 mg, 1 tab, PO No Longer [place] Route: PO, Active 2011 Medical Drug form: [place] TAB, Daily, Dosing Weight 113.636, kg, Start date: 07/21/12 9:00:00, Duration: 30 day, Stop date: 08/19/12 9:00:00 Zofran 2 mg/mL 4 mg, 2 mL, IV Active [place] injectable IV, Q6H, PRN, 2011 Medical solution 15 mL, 1, 1, Center Nausea, Substitution Allowed, INJ Cipro 250 mg 250 mg, 1 tab, PO Active [place] oral tablet PO, Q12H, 6 2011 Medical tab, Center Substitution Allowed, TAB Lipitor 40 mg 40 mg, 1 tab, PO Active [place] oral tablet PO, QPM, 2011 Medical tab, 3, 3, Center Substitution Allowed, TAB Cipro 250 mg, 1 tab, PO No Longer [place] Route: PO, Active 2011 Medical Drug form: [place] TAB, Q12H, Dosing Weight 113.636, kg, Start date: 07/20/12 23:00:00, Duration: 30 day, Stop date: 08/19/12 11:00:00 clonidine 0.1 mg, 1 tab, PO [place] Long[place] Route: PO, Active 2011 Medical Drug form: [place] TAB, Q8H-05, Dosing Weight 113.636, kg, Start date: 07/20/12 21:00:00, Duration: 30 day, Stop date: 08/19/12 13:00:00 Lipitor 40 mg, 1 tab, PO No Longer Chahil [place] Route: PO, Active 2011 Medical Drug form: [place] TAB, QPM, Dosing Weight 113.636, kg, Start date: 07/20/12 17:00:00, Duration: 30 day, Stop date: 08/18/12 17:00:00 NS (Bolus) IV 500 mL, Rate: IV No Longer [facility] 500 mL 500 ml/hr, Active 2011 Medical Infuse over: 1 Center hr, Route: IV, kg, Total Volume: 500, Priority: STAT, Start date: 07/20/12 16:31:00, Duration: 1 doses or times, Stop date: 07/20/12 17:30:00, Bolus DoseBolus Dose caffeine 300 mg, 1.5 PO No Longer e Oxana tab, Route: Active 2011 Medical PO, Drug form: [place] TAB, ONCE, Start date: 07/20/12 15:30:00, Stop date: 07/20/12 15:30:00 aspirin 81 mg, 1 tab, PO No Longer [place] Route: PO, Active 2011 Medical Drug form: [place] ECTAB, Daily, Dosing Weight 113.636, kg, Start date: 07/20/12 15:00:00, Duration: 30 day, Stop date: 08/19/12 9:00:00 Zofran 4 mg, 2 mL, IV No Longer [facility] Route: IV, Active 2011 Medical Drug form: [place] INJ, Q6H, Dosing Weight 113.636, kg, PRN Nausea, Start date: 07/20/12 13:23:00, Duration: 30 day, Stop date: 08/19/12 13:22:00 caffeine-sodium 250 mg, 1 mL, IVPB No Longer [facility] benzoate + Route: IVPB, Active 2011 Medical Sodium Chloride Drug form: Cente r 0.9% IV 1,000 mL INJ, ONCE, Dosing Weight 113.636, kg, Start date: 07/20/12 13:20:00, Stop date: 07/20/12 13:20:00 Navane 20 mg, 4 cap, PO No Longer [facility] Route: PO, Active 2011 Medical Drug form: [place] CAP, Daily, Dosing Weight 113.636, kg, Start date: 07/20/12 9:00:00, Duration: 30 day, Stop date: 08/18/12 9:00:00 clonidine 0.1 mg, Route: PO No Longer [facility] [place] PO, Drug form: Active 2011 Medical TAB, TID, [place] Dosing Weight 113.636, kg, Start date: 07/20/12 9:00:00, Duration: 30 day, Stop date: 08/18/12 17:00:00 Haldol 2 mg, 1 tab, PO No Longer [facility] Route: PO, Active 2011 Medical Drug form: [place] TAB, Daily, Dosing Weight 113.636, kg, Start date: 07/20/12 9:00:00, Duration: 30 day, Stop date: 08/18/12 9:00:00 Zoloft 100 mg, 1 tab, PO No Longer [facility] [place] [facility] Route: PO, Active 2011 Medical Drug form: [place] TAB, Daily, Dosing Weight 113.636, kg, Start date: 07/20/12 9:00:00, Duration: 30 day, Stop date: 08/18/12 9:00:00 Wellbutrin 300 mg, 2 tab, PO No Longer [facility] [place] Route: PO, Active 2011 Medical Drug form: [place] ERTAB, Daily, Dosing Weight 113.636, kg, Start date: 07/20/12 9:00:00, Duration: 30 day, Stop date: 08/18/12 9:00:00 influenza virus 0.5 ml, Route: IM No Longer SYSTEM Oxana vaccine, IM, Drug Form: Active 2011 Medical inactivated INJ, Start Center date: 07/20/12 9:00:00, Stop date: 07/20/12 9:00:00 Saline Flush 5 ml, Route: IVP No Longer [place] 0.9% IVP, Drug Active 2011 Medical Form: INJ, [place] Dosing Weight 113.636, kg, Q12H, Start date: 07/19/12 21:00:00, Duration: 30 day, Stop date: 08/18/12 9:00:00 famotidine 20 mg, 1 tab, PO No Longer [place] Route: PO, Active 2011 Medical Drug form: [place] TAB, Q12H, Dosing Weight 113.636, kg, Start date: 07/19/12 21:00:00, Duration: 30 day, Stop date: 08/18/12 9:00:00 Visipaque 100 mL, Route: IVP No Longer [place] 320mg/ml IVP, Drug Active 2011 [facility] 113.636, kg, ONCALL, STAT, Start date: 07/19/12 14:56:00, Duration: 1 doses or times, Dose = 2.2ml/kg, Max dose = 150mlDose = 2.2ml/kg, Max dose = 150ml enoxaparin 40 mg, 0.4 mL, [facility] [place] [facility]: [facility], Active 2011 Medical Drug form: [place] INJ, Q24H, Dosing Weight 113.636, kg, Start date: 07/19/12 11:00:00, Duration: 30 day, Stop date: 08/17/12 11:00:00 hydromorphone 1 mg, 0.5 mL, IVP No Longer [facility] Route: IVP, Active 2011 Medical Drug form: [place] INJ, ONCE, Dosing Weight 113.636, kg, Priority: STAT, Start date: 07/19/12 10:49:00, Stop date: 07/19/12 10:49:00 Plavix 75 mg, 1 tab, PO No Longer [place] Route: PO, Active 2011 Medical Drug form: [place] TAB, Daily, Dosing Weight 113.636, kg, Priority: STAT, Start date: 07/19/12 10:17:00, Duration: 30 day, Stop date: 08/18/12 9:00:00 Saline Flush 5 ml, Route: IVP No Longer [facility] [place] 0.9% IVP, Drug Active 2011 Medical Form: INJ, [place] Dosing Weight 113.636, kg, PRN, PRN Line Flush, Start date: 07/19/12 10:05:00, Duration: 30 day, Stop date: 08/18/12 10:04:00 acetaminophen 650 mg, 2 tab, PO No Longer Ch[facility]il [facility] Route: PO, Active 2011 Medical Drug form: [place] TAB, Q4H, Dosing Weight 113.636, kg, PRN Pain/Fever, Start date: 07/19/12 10:05:00, Duration: 30 day, Stop date: 08/18/12 10:04:00 Sodium Chloride 1,000 mL, IV [facility] [place] 0.[facility] 1,000 mL Rate: 75 Active 2011 Medica l ml/hr, Infuse Center over: 13.3 hr, Route: IV, kg, Total Volume: 1,000, Start date: 07/19/12 10:05:00, Duration: 30 day, Stop date: 08/18/12 10:04:00 Navane 20 mg, PO, PO Active [facility] , 2011 Medical Substitution Center Allowed Haldol 2 mg, PO, PO Active [facility] Daily, 2011 Medical Substitution Center Allowed Wellbutrin 300 mg, PO, PO Active [facility] Daily, 2011 Medical Substitution Center Allowed Zoloft 100 mg, PO, PO Active [facility] Daily, 2011 Medical Substitution Center Allowed clonidine 0.3 mg, PO, PO Active [facility] TID2011 Medical Substitution Center Allowed promethazine 25 mg, 1 mL, IVPB No Longer [place] 07/19[facility] Route: IVPB, Active 2011 Medical Drug form: Center INJ, ONCE, Dosing Weight 113.636, kg, Priority: STAT, Start date: 07/19/12 6:57:00, Stop date: 07/19/12 6:57:00 hydromorphone 1 mg, 0.5 mL, IVP No Longer [place] 07/19/ [facility] Route: IVP, Active 2011 Medical Drug form: Center INJ, ONCE, Dosing Weight 113.636, kg, Priority: STAT, Start date: 07/19/12 6:56:00, Stop date: 07/19/12 6:56:00 Allergies, Adverse Reactions, Alerts Substance Category Reaction Severity Reaction Status Date Comments S ource type Reported Compazine Assertion Drug Active [facility] Depakote Assertion Drug Active [place] [facility] labetalol Assertion Drug Active [facility] NSAIDs Assertion Drug Active Tommy as [facility] Stadol Assertion Drug Active Tommy as [facility] Toradol Assertion Drug Active Tommy as [facility] Vicoprofen Assertion Drug Active [facility] Immunizations Immunization Date Given Site Status Last Comments Source Updated influenza virus 10/28/2014 Left completed [facility] pneumococcal 11/14/2013 Right completed Keegan Tommy as 23-valent vaccine [facility] influenza virus 07/21/2012 Right completed [facility] vaccine, Del[facility] Medical inactivated Center influenza virus 07/21/2012 completed [facility] vaccine, Medical inactivated Center influenza virus 07/21/2012 Not Given [facility] vaccine, Medical inactivated [place] influenza virus 07/21/2012 Not Given [facility] vaccine, Medical inactivated [place] Results Order Name Results Value Reference Date Interpretation Comments Manda rce Range CHEM PANEL Phosphorus 2.6 2.5 - 4.5 03/12 [facility] CHEM PANEL eGFR 101 03/12 Result Comment: The Medical eGFR is Center calculated using the CKD-EPI formula. In most young, healthy individuals the eGFR will be >90 mL/min/1.73m2 . The eGFR declines with age. An eGFR of 60-89 may be normal in some populations, particularly the elderly, for whom the CKD-EPI formula has not been extensively validated. Use of the eGFR is not recommended in the following populations:< br/>
Madelin viduals with unstable creatinine concentration s, including patients and those with serious co-morbid conditions.<b r/>
Patie nts with extremes in muscle mass or diet.

The data above are obtained from the National Kidney Disease Education Program (NKDEP) which additionally recommends that when the eGFR is used in patients with extremes of body mass index for purposes of drug dosing, the eGFR should be multiplied by the estimated BMI. CHEM PANEL Calcium Lvl 8.2 8.5 - 10.5 03/12 [facility] CHEM PANEL Glucose Lvl 97 70 - 99 03/[address] CHEM PANEL Potassium Lvl 3.3 3.5 - 5.1 03/12 [facility]2018 [facility] CHEM PANEL Chloride Lvl 110 95 - 109 03/12 [facility] [place]2018 [facility] CHEM PANEL AGAP 15.3 10.0 - 03/12 [facility] 20.0 [facility] CHEM PANEL CO2 21 24 - 32 03/[address] CHEM PANEL BUN 5 7 - 22 03/[address] CHEM PANEL Creatinine 0.64 0.50 - 03/12 [place] Lvl 1.40 [facility] CHEM PANEL Sodium Lvl 143 135 - 145 03/[address] CHEM PANEL Magnesium Lvl 1.9 1.8 - 2.4 03/[address] HEMATOLOGY Basophils # 0.1 0.0 - 0.2 03/[address] HEMATOLOGY Eosinophils 3.0 0.0 - 4.0 03/[address] HEMATOLOGY Basophils 1.2 0.0 - 1.0 03/[address] HEMATOLOGY Segs 62.0 45.0 - 03/12 [facility] 75.0 [facility] HEMATOLOGY Lymphocytes # 2.6 1.0 - 5.5 03/[address] HEMATOLOGY Monocytes # 0.4 0.0 - 0.8 03/12 [place] [facility] HEMATOLOGY Lymphocytes 29.6 20.0 - 03/12 40.0 [facility] HEMATOLOGY Monocytes 4.2 2.0 - 12.0 03/12 [facility] HEMATOLOGY Eosinophils # 0.3 0.0 - 0.5 03/12 [facility] HEMATOLOGY Neutrophils # 5.5 1.5 - 8.1 03/12 [facility] HEMATOLOGY RBC 3.64 4.20 - 03/12 [place] 5.40 [facility] HEMATOLOGY Hgb 10.5 12.0 - 03/12 16.0 [facility] HEMATOLOGY Platelet 194 133 - 450 03/12 [facility] HEMATOLOGY MPV 8.0 7.4 - 10.4 03/12 [facility] HEMATOLOGY RDW 16.7 11.5 - 03/12 14.5 [facility] HEMATOLOGY WBC 8.9 3.7 - 10.4 03/12 [facility] HEMATOLOGY MCH 29.0 27.0 - 03/12 31.0 [facility] HEMATOLOGY MCHC 32.7 32.0 - 03/12 36.0 [facility] HEMATOLOGY MCV 88.4 80.0 - 03/12 98.0 [facility] HEMATOLOGY Hct 32.2 36.0 - 03/12 48.0 [facility] PARATHYROID Ca Ion WB 1.05 1. - 03/12 [facility] PROFILE 09.11 [facility] PARATHYROID Ca Norm WB 1.05 1.05 - 03/12 [facility] PROFILE 09.11 [facility] CHEM PANEL eGFR 83 03/11 Result Comment: The Medical eGFR is Center calculated using the CKD-EPI formula. In most young, healthy individuals the eGFR will be >90 mL/min/1.73m2 . The eGFR declines with age. An eGFR of 60-89 may be normal in some populations, particularly the elderly, for whom the CKD-EPI formula has not been extensively validated. Use of the eGFR is not recommended in the following populations:< br/>
Madelin viduals with unstable creatinine concentration s, including patients and those with serious co-morbid conditions.<b r/>
Patie nts with extremes in muscle mass or diet.

The data above are obtained from the National Kidney Disease Education Program (NKDEP) which additionally recommends that when the eGFR is used in patients with extremes of body mass index for purposes of drug dosing, the eGFR should be multiplied by the estimated BMI. CHEM PANEL AGAP 11.4 10.0 - 03/11 [facility] 20.0 [facility] CHEM PANEL Calcium Lvl 8.2 8.5 - 10.5 03/11 [place] as [facility] CHEM PANEL CO2 25 24 - 32 03/11 [facility]2018 [facility] CHEM PANEL Chloride Lvl 110 95 - 109 03/11 [facility] CHEM PANEL Potassium Lvl 3.4 3.5 - 5.1 03/11 [place] [facility] CHEM PANEL Creatinine 0.80 0.50 - 03/11 [facility] Lvl 1.40 [facility] CHEM PANEL Sodium Lvl 143 135 - 145 03/11 [facility]2018 [facility] CHEM PANEL Glucose Lvl 142 70 - 99 03/11 [facility] CHEM PANEL BUN 4 7 - 22 03/11 [facility] PARATHYROID Ca Norm WB 1.07 1.05 - 03/11 [facility] PROFILE 1. [facility] PARATHYROID Ca Ion WB 1.07 1.05 - 03/11 [facility] . [facility] URINE AND UA WBC 4 0 - 5 03/11 [facility] STOOL [facility] URINE AND UA Leuk Est Negative Negative 03/11 [facility] (03/11/19 4:57 PM) [facility] URINE AND UA Sq Epi Few /LPF Few /LPF 03/11 [facility] URINE AND UA <1.0 0.1 - 1.0 03/11 [facility] Urobilinogen /2018 [facility] URINE AND UA Nitrite Negative Negative 03/11 [facility] (03/11/19 4:57 PM) [facility] URINE AND UA Bili Negative Negative 03/11 [facility] STOOL *NA* /2018 [facility] (03/11/19 4:57 PM) [place] URINE AND UA Blood Negative Negative 03/11 [facility] (03/11/19 4:57 PM) [facility] URINE AND UA Ketones Trace Negative 03/11 [facility] mg/dL mg/dL [facility] URINE AND UA Mucus Few /LPF None Seen 03/11 [facility] STOOL /LPF [facility] URINE AND UA RBC 1 0 - 2 03/11 [facility] URINE AND UA Bacteria Few /HPF None Seen 03/11 [facility] /HPF [facility] URINE AND UA Color Yellow Yellow 03/11 [facility] *NA* [facility] (03/11/19 4:57 PM) [place] URINE AND UA Turbidity Slight Clear 03/11 [facility] *ABN* [facility] (03/11/19 4:57 PM) [place] URINE AND UA Spec Grav 1.016 <=1.030 03/11 [facility] URINE AND UA Protein 30 mg/dL Negative 03/11 [facility] mg/dL [facility] URINE AND UA pH 8.0 5.0 - 8.0 03/11 [facility] URINE AND UA Glucose Negative Negative 03/11 [facility] mg/dL mg/dL [facility] URINE CHEM U Potassium 7.4 03/11 [facility] URINE CHEM U Chloride 125 03/11 [facility] URINE CHEM U Sodium 192 03/11 [facility] URINE CHEM U Osmolality 528 300 - 800 03/11 [place] [facility] URINE CHEM U Preg Negative Negative 03/11 [facility] (03/11/19 4:57 PM) [facility] CHEM PANEL eGFR 109 03/11 Result Comment: The Medical eGFR is Center calculated using the CKD-EPI formula. In most young, healthy individuals the eGFR will be >90 mL/min/1.73m2 . The eGFR declines with age. An eGFR of 60-89 may be normal in some populations, particularly the elderly, for whom the CKD-EPI formula has not been extensively validated. Use of the eGFR is not recommended in the following populations:< br/>
Madelin viduals with unstable creatinine concentration s, including patients and those with serious co-morbid conditions.<b r/>
Patie nts with extremes in muscle mass or diet.

The data above are obtained from the National Kidney Disease Education Program (NKDEP) which additionally recommends that when the eGFR is used in patients with extremes of body mass index for purposes of drug dosing, the eGFR should be multiplied by the estimated BMI. CHEM PANEL Potassium Lvl 2.9 3.5 - 5.1 03/11 Result [facility] Comment: [facility] Result(s) called to Alaina Rosa at 03/11/2019 06:03 by . Read back OK. CHEM PANEL Sodium Lvl 140 135 - 145 03/11 [facility] CHEM PANEL Creatinine 0.51 0.50 - 03/11 [place] Lvl 1.40 [facility] CHEM PANEL BUN 4 7 - 22 03/11 [facility] CHEM PANEL Glucose Lvl 79 70 - 99 03/11 [facility] CHEM PANEL Calcium Lvl 7.6 8.5 - 10.5 03/11 [facility] CHEM PANEL AGAP 9.9 10.0 - 03/11 20. [facility] CHEM PANEL CO2 27 24 - 32 03/11 [facility] CHEM PANEL Chloride Lvl 106 95 - 109 03/11 [facility] CHEM PANEL Phosphorus 3.7 2.5 - 4.5 03/11 [facility] CHEM PANEL Magnesium Lvl 2.0 1.8 - 2.4 03/11 [facility] HEMATOLOGY MPV 8.1 7.4 - 10.4 03/11 [facility] HEMATOLOGY Platelet 163 133 - 450 03/11 [facility] HEMATOLOGY RDW 16.6 11.5 - 03/11 14.5 [facility] HEMATOLOGY MCH 29.0 27.0 - 03/11 31.0 [facility] HEMATOLOGY MCHC 33.0 32.0 - 03/11 36.0 [facility] [facility] RBC 3.64 4.20 - 03/11 5.40 [facility] HEMATOLOGY Hgb 10.6 12.0 - 03/11 16.0 [facility] HEMATOLOGY WBC 9.3 3.7 - 10.4 03/11 [facility] HEMATOLOGY MCV 87.8 80.0 - 03/11 [place] 98.0 2019 [facility] HEMATOLOGY Hct 32.0 36.0 - 03/11 [place] 48.0 [facility] HEMATOLOGY Eosinophils 4.0 0.0 - 4.0 03/11 [facility] s /2019 [facility] HEMATOLOGY Segs 62.5 45.0 - 03/11 [place] 75.0 2019 [facility] HEMATOLOGY Lymphocytes 27.8 20.0 - 03/11 [place] 40.0 [facility] HEMATOLOGY Monocytes 4.5 2.0 - 12.0 03/[address] HEMATOLOGY Neutrophils # 5.8 1.5 - 8.1 03/11 [facility]2018 [facility] HEMATOLOGY Lymphocytes # 2.6 1.0 - 5.5 03/[address] HEMATOLOGY Monocytes # 0.4 0.0 - 0.8 03/11 [facility] [place]2018 [facility] HEMATOLOGY Eosinophils # 0.4 0.0 - 0.5 03/11 [facility]2018 [facility] HEMATOLOGY Basophils 1.2 0.0 - 1.0 03/[address] HEMATOLOGY Basophils # 0.1 0.0 - 0.2 03/11 [facility] [place]2018 [facility] PARATHYROID Ca Ion WB 0.91 1.05 - 03/11 [facility] PROFILE 1. [facility] PARATHYROID Ca Norm WB 0.96 1.05 - 03/11 [facility] PROFILE 1. [facility] HEMATOLOGY Eosinophils # 0.3 0.0 - 0.5 03/[address] HEMATOLOGY Monocytes # 0.4 0.0 - 0.8 03/10 [facility] [place]2018 [facility] HEMATOLOGY Lymphocytes # 2.8 1.0 - 5.5 03/[address] HEMATOLOGY Basophils # 0.1 0.0 - 0.2 03/10 [facility] [place]2018 [facility] HEMATOLOGY Segs 61.6 45.0 - 03/10 [place] 75.0 2019 [facility] HEMATOLOGY Lymphocytes 29.1 20.0 - 03/10 [facility] 40.0 2019 [facility] HEMATOLOGY Basophils 1.2 0.0 - 1.0 03/[address] HEMATOLOGY Monocytes 4.5 2.0 - 12.0 03/[address] HEMATOLOGY Neutrophils # 5.8 1.5 - 8.1 03/[address] HEMATOLOGY Eosinophils 3.6 0.0 - 4.0 03/10 [facility] [place]2018 [facility] HEMATOLOGY MPV 7.9 7.4 - 10.4 03/10 [facility] HEMATOLOGY Hct 34.6 36.0 - 03/10 [place] 48.0 /2018 [facility] HEMATOLOGY MCH 28.6 27.0 - 03/10 [place] 31.0 [facility] HEMATOLOGY MCV 88.5 80.0 - 03/10 [place] 98.0 [facility] HEMATOLOGY Platelet 162 133 - 450 03/10 [facility] HEMATOLOGY RDW 16.7 11.5 - 03/10 [place] 14.5 [facility] HEMATOLOGY MCHC 32.3 32.0 - 03/10 [place] 36.0 [facility] HEMATOLOGY Hgb 11.2 12.0 - 03/10 [place] 16.0 [facility] HEMATOLOGY RBC 3.91 4.20 - 03/10 [facility] 5.40 [facility] HEMATOLOGY WBC 9.5 3.7 - 10.4 03/10 [facility] HEMATOLOGY INR 1.06 0.85 - 03/10 [place] 1.17 [facility] HEMATOLOGY PT 13.6 12.0 - 03/10 [place] 14.7 [facility] HEMATOLOGY PTT 36.3 22.9 - 03/10 [place] 35.8 [facility] CARDIAC Troponin-I 0.30 0.00 - 03/10 [facility] ENZYMES 0.40 [facility] CHEM PANEL Phosphorus 1.6 2.5 - 4.5 03/10 [facility] CHEM PANEL Magnesium Lvl 2.1 1.8 - 2.4 03/10 [place] [facility] LIPIDS VLDL 39 03/10 [facility] LIPIDS LDL 36 <=99 mg/dL 03/10 [facility] (Calculated) [facility] LIPIDS HDL 28 >=61 mg/dL 03/10 [facility] LIPIDS Trig 195 <=149 03/10 [facility] mg/dL [facility] LIPIDS Chol 103 <=199 03/10 [facility] mg/dL [facility] LIPIDS CHD Risk 3.68 3.90 - 03/10 [place] 5.80 [facility] SPECIAL Hgb A1C 4.8 <=5.6 % 03/10 [facility] CHEMISTRY [facility] ANEMIA Vitamin B12 267 254 - 1320 03/10 [facility] STUDY Lvl /2018 [facility] ANEMIA Folate Lvl 4.4 >=3.0 07/24 [place] STUDY ng/mL /2018 [facility] CARDIAC BNP 10 <=100 03/10 [facility] ENZYMES pg/mL [facility] CHEM PANEL Osmolality 294 280 - 300 03/10 [facility] HEMATOLOGY PTT 42.4 22.9 - 03/10 [place] 35.8 [facility] HEMATOLOGY PT 13.5 12.0 - 03/10 [place] 14.7 [facility] HEMATOLOGY INR 1.05 0.85 - 03/10 [place] . [facility] CARDIAC Troponin-I 0.48 0.00 - 03/10 [facility] ENZYMES 0.40 [facility] CARDIAC Troponin-I 0.50 0.00 - 03/09 Result [facility] ENZYMES 0.40 Comment: Medical Critical Center Result(s) called to Dr. Ezekiel Tran at 03/09/2019 18:01 by AC. Read back OK. CARDIAC Total CK 63 12 - 191 03/09 [facility] ENZYMES [facility] CHEM PANEL Lactic Acid 1.2 0.5 - 2.2 03/09 [place] [facility] HEMATOLOGY PTT 31.7 22.9 - 03/09 [place] 35.8 [facility] HEMATOLOGY INR 1.07 0.85 - 03/09 [place] 09.03 [facility] HEMATOLOGY PT 13.7 12.0 - 03/09 [facility] 14 [facility] CHEM PANEL Phosphorus 3.5 2.5 - 4.5 03/22 [facility] CHEM PANEL Magnesium Lvl 1.8 1.8 - 2.4 03/22 [place] [facility] ELECTROLYTE CO2 22 24 - 32 03/22 [place] [facility] ELECTROLYTE Calcium Lvl 8.9 8.5 - 10.5 03/22 [facility] [place] [facility] ELECTROLYTE AGAP 14.6 10.0 - 08 [facility] S 20.0 [facility] ELECTROLYTE Chloride Lvl 110 95 - 109 03/22 [place] [facility] ELECTROLYTE Potassium Lvl 3.6 3.5 - 5.1 03/22 [place] [facility] ELECTROLYTE Creatinine 0.9 0.5 - 1.4 03/22 [place] /2014 [facility] ELECTROLYTE Sodium Lvl 143 135 - 145 03/22 [facility] [place] [facility] ELECTROLYTE Glucose Lvl 81 70 - 99 03/22 [facility] ELECTROLYTE BUN 10 7 - 22 03/22 [facility] ELECTROLYTE eGFR 75 03/22 [facility] Comment: The Medical eGFR is Center calculated using the CKD-EPI formula. In most young, healthy individuals the eGFR will be >90 mL/min/1.73m2 . The eGFR declines with age. An eGFR of 60-89 may be normal in some populations, particularly the elderly, for whom the CKD-EPI formula has not been extensively validated. Use of the eGFR is not recommended in the following populations:< br/>
Madelin viduals with unstable creatinine concentration s, including patients and those with serious co-morbid conditions.<b r/>
Patie nts with extremes in muscle mass or diet.

The data above are obtained from the National Kidney Disease Education Program (NKDEP) which additionally recommends that when the eGFR is used in patients with extremes of body mass index for purposes of drug dosing, the eGFR should be multiplied by the estimated BMI. HEMATOLOGY MPV 7.5 7.4 - 10.4 08 [facility] HEMATOLOGY Platelet 224 133 - 450 03/22 [facility] HEMATOLOGY WBC 11.7 3.7 - 10.4 03/22 [facility] HEMATOLOGY Hct 32.6 36.0 - 03/22 [place] 48.0 [facility] HEMATOLOGY MCV 84.1 80.0 - 03/22 [place] 98.0 /2014 [facility] HEMATOLOGY RBC 3.87 4.20 - 03/22 [place] 5.40 /2014 [facility] HEMATOLOGY Hgb 10.4 12.0 - 08 [place] 16.0 /2014 [facility] HEMATOLOGY MCHC 31.9 32.0 - 08 [place] 36.0 [facility] HEMATOLOGY MCH 26.8 27.0 - 08 [place] 31.0 [facility] HEMATOLOGY RDW 17.6 11.5 - 08 14.5 [facility] HEMATOLOGY Eosinophils 1.0 0.0 - 4.0 08 a [facility] HEMATOLOGY Monocytes 7.4 2.0 - 12.0 03/22 [facility] HEMATOLOGY Lymphocytes 38.6 20.0 - 08 [place] 40.0 /2014 [facility] HEMATOLOGY Segs 52.0 45.0 - 08 [place] 75.0 /2014 [facility] HEMATOLOGY Basophils 1.0 0.0 - 1.0 03/22 [facility] HEMATOLOGY Segs-Bands # 6.1 1.5 - 8.1 08 [facility] HEMATOLOGY Basophils # 0.1 0.0 - 0.2 03/22 [facility] HEMATOLOGY Monocytes # 0.9 0.0 - 0.8 03/22 [facility] HEMATOLOGY Eosinophils # 0.1 0.0 - 0.5 03/22 [facility] HEMATOLOGY Lymphocytes # 4.5 1.0 - 5.5 03/22 [facility] IMMUNOLOGY Alpha 1 % 5.0 2.8 - 4.9 03/21 [facility] IMMUNOLOGY Gamma % 14.5 11.1 - 03/21 18.7 /2014 [facility] IMMUNOLOGY Alpha 2 % 16.2 7.0 - 11.9 03/21 [facility] IMMUNOLOGY Beta % 15.1 7.8 - 13.7 03/21 [facility] IMMUNOLOGY Albumin % 49.2 55.8 - 08 [place] 66.1 /2014 [facility] IMMUNOLOGY Alpha 1 Glob 0.34 0.18 - 03/21 [place] 0.41 /2014 [facility] IMMUNOLOGY Tot Prot 6.8 6.4 - 8.4 03/21 (SPE) [facility] IMMUNOLOGY SPE Interp Total 03/21 [facility] protein Medical within the Center reference range. Serum protein electropho resis shows mild reduction in the albumin level, relative increases in the alpha- and beta globulin fractions, and an absolute increase in the alpha-2 globulin fraction. The gamma globulin fraction is within reference range. Findings are consistent with an acute inflammati on. The electronic medical record has been reviewed for relevant medical informatio n. I have personally reviewed the test results and concur with the resident&a pos;s interpreta tion. CPT 83519-LI IMMUNOLOGY Albumin (SPE) 3.35 3.57 - 08 [place] 5.55 /2014 [facility] IMMUNOLOGY Gamma Glob 0.99 0.71 - 08 [facility] 1.57 [facility] IMMUNOLOGY Alpha 2 Glob 1.10 0.45 - 08 1.00 [facility] IMMUNOLOGY Beta Glob 1.03 0.50 - 03/21 1.15 [facility] CHEM PANEL eGFR 101 03/21 Result Comment: The Medical eGFR is Center calculated using the CKD-EPI formula. In most young, healthy individuals the eGFR will be >90 mL/min/1.73m2 . The eGFR declines with age. An eGFR of 60-89 may be normal in some populations, particularly the elderly, for whom the CKD-EPI formula has not been extensively validated. Use of the eGFR is not recommended in the following populations:< br/>
Madelin viduals with unstable creatinine concentration s, including patients and those with serious co-morbid conditions.<b r/>
Patie nts with extremes in muscle mass or diet.

The data above are obtained from the National Kidney Disease Education Program (NKDEP) which additionally recommends that when the eGFR is used in patients with extremes of body mass index for purposes of drug dosing, the eGFR should be multiplied by the estimated BMI. CHEM PANEL Calcium Lvl 9.1 8.5 - 10.5 03/21 [facility] CHEM PANEL Potassium Lvl 3.8 3.5 - 5.1 03/21 [facility] CHEM PANEL CO2 21 24 - 32 03/21 [facility] CHEM PANEL Chloride Lvl 110 95 - 109 03/21 [facility] CHEM PANEL BUN 11 7 - 22 03/21 [facility] CHEM PANEL Sodium Lvl 142 135 - 145 03/21 [facility] CHEM PANEL Glucose Lvl 83 70 - 99 03/21 [facility] CHEM PANEL Creatinine 0.7 0.5 - 1.4 03/[address] [facility] CHEM PANEL AGAP 14.8 10.0 - 08 20.0 [facility] CHEM PANEL Magnesium Lvl 1.8 1.8 - 2.4 03/21 [facility] CHEM PANEL Phosphorus 4.1 2.5 - 4.5 03/21 [facility] HEMATOLOGY Eosinophils # 0.1 0.0 - 0.5 08/ [facility] HEMATOLOGY Monocytes # 0.7 0.0 - 0.8 08/ [facility] HEMATOLOGY Basophils 1.0 0.0 - 1.0 08/ [facility] HEMATOLOGY Eosinophils 1.2 0.0 - 4.0 08/ [facility] HEMATOLOGY Lymphocytes # 3.7 1.0 - 5.5 08 [facility] HEMATOLOGY Segs-Bands # 5.4 1.5 - 8.1 08 [facility] HEMATOLOGY Monocytes 6.9 2.0 - 12.0 08/ [facility] HEMATOLOGY Basophils # 0.1 0.0 - 0.2 03/21 [facility] HEMATOLOGY Segs 54.0 45.0 - 08 75.0 [facility] HEMATOLOGY Lymphocytes 36.9 20.0 - 08 40.0 [facility] HEMATOLOGY Hct 32.9 36.0 - 08 48.0 [facility] HEMATOLOGY Hgb 10.8 12.0 - 08 16.0 [facility] HEMATOLOGY RBC 3.91 4.20 - 08 [place] 5.40 /2014 [facility] HEMATOLOGY WBC 10.0 3.7 - 10.4 08 [facility] HEMATOLOGY MCHC 32.9 32.0 - 08/ 36.0 [facility] HEMATOLOGY RDW 17.2 11.5 - 08 14.5 [facility] HEMATOLOGY MCH 27.7 27.0 - 08 31.0 [facility] HEMATOLOGY MCV 84.2 80.0 - 08 98.0 [facility] HEMATOLOGY MPV 7.5 7.4 - 10.4 03/21 [facility] HEMATOLOGY Platelet 251 133 - 450 03/21 [facility] IMMUNOLOGY IgG Lvl CSF 6.4 2.0 - 4.0 03/21 [facility] CHEM PANEL eGFR 101 08/ Result Comment: The Medical eGFR is Center calculated using the CKD-EPI formula. In most young, healthy individuals the eGFR will be >90 mL/min/1.73m2 . The eGFR declines with age. An eGFR of 60-89 may be normal in some populations, particularly the elderly, for whom the CKD-EPI formula has not been extensively validated. Use of the eGFR is not recommended in the following populations:< br/>
Madelin viduals with unstable creatinine concentration s, including patients and those with serious co-morbid conditions.<b r/>
Patie nts with extremes in muscle mass or diet.

The data above are obtained from the National Kidney Disease Education Program (NKDEP) which additionally recommends that when the eGFR is used in patients with extremes of body mass index for purposes of drug dosing, the eGFR should be multiplied by the estimated BMI. CHEM PANEL Sodium Lvl 141 135 - 145 03/20 [facility] CHEM PANEL Glucose Lvl 71 70 - 99 03/20 [facility] CHEM PANEL BUN 7 7 - 22 03/20 [facility] CHEM PANEL Creatinine 0.7 0.5 - 1.4 03/[address] [facility] CHEM PANEL Potassium Lvl 3.9 3.5 - 5.1 03/20 [facility] CHEM PANEL Calcium Lvl 9.2 8.5 - 10.5 03/20 [facility] CHEM PANEL Chloride Lvl 108 95 - 109 03/20 [facility] CHEM PANEL CO2 23 24 - 32 03/20 [facility] CHEM PANEL AGAP 13.9 10.0 - 03/20 [place] 20.0 [facility] CHEM PANEL Magnesium Lvl 1.9 1.8 - 2.4 03/20 [facility] CHEM PANEL Phosphorus 3.6 2.5 - 4.5 03/20 [facility] HEMATOLOGY MCHC 33.2 32.0 - 08 [place] 36.0 [facility] HEMATOLOGY Platelet 285 133 - 450 03/20 [facility] HEMATOLOGY RDW 17.2 11.5 - 03/20 14.5 [facility] HEMATOLOGY RBC 4.07 4.20 - 08 [place] 5.40 /2014 [facility] HEMATOLOGY WBC 9.6 3.7 - 10.4 03/20 [facility] HEMATOLOGY Hgb 11.2 12.0 - 03/20 [place] 16.0 /2014 [facility] HEMATOLOGY Hct 33.6 36.0 - 03/20 48.0 /2014 [facility] HEMATOLOGY MCV 82.6 80.0 - 03/20 98.0 /2014 [facility] HEMATOLOGY MCH 27.4 27.0 - 03/20 31.0 /2014 [facility] HEMATOLOGY MPV 7.7 7.4 - 10.4 03/20 [facility] HEMATOLOGY Segs 55.3 45.0 - 03/20 [place] 75.0 /2014 [facility] HEMATOLOGY Basophils 1.9 0.0 - 1.0 03/20 [facility] HEMATOLOGY Lymphocytes 35.6 20.0 - 03/20 40.0 /2014 [facility] HEMATOLOGY Monocytes 6.2 2.0 - 12.0 03/20 [facility] HEMATOLOGY Eosinophils 1.0 0.0 - 4.0 03/20 [facility] HEMATOLOGY Segs-Bands # 5.3 1.5 - 8.1 03/20 [facility] HEMATOLOGY Lymphocytes # 3.4 1.0 - 5.5 03/20 [place] [facility] HEMATOLOGY Monocytes # 0.6 0.0 - 0.8 03/20 [facility] HEMATOLOGY Eosinophils # 0.1 0.0 - 0.5 03/20 [facility] HEMATOLOGY Basophils # 0.2 0.0 - 0.2 03/20 s [facility] IMMUNOLOGY IgG Lvl 971 864 - 1618 03/20 [facility] HEMATOLOGY dRVV Ratio 0.91 <=1.20 03/19 [facility] HEMATOLOGY Hex Phos N Negative Negative 03/19 [facility] (03/19/15 11:56 AM) /[facility] [place] HEMATOLOGY Lup Interp Negative 03/19 [facility] for lupus [facility] Center ant with all tests performed (dRVVT, and hexagonal phospholip id neutraliza tion). CPT: 38562 IMMUNOLOGY Treponemal Non Reactive Non 03/19 [facility] xa Scr *NA* Reactive /2014 [facility] (03/19/15 11:56 AM) Center IMMUNOLOGY HIV 1/2 Ab Negative Negative 03/18 [facility] *NA* /2014 Medical (03/18/15 4:44 PM) Center VIRAL - W Nile Ab IgM <0.90 03/18 Result [facility] SEROLOGY Comment: Medical REFERENCE Center RANGE: <0.90

INTERPRE TIVE CRITERIA:<br/ > <0.90 Antibody not detected
0.90 - 1.10 Equivocal<br/ > >1.10 Antibody detected

West Nile virus (WNV) IgM is usually detectable&lt ;br/>in serum specimens from WNV-infected patients at
the time of clinical presentation. Because serum
IgM antibody may persist for more than a year in
some patients, its presence may indicate WNV
infec tion in the previous year and be unrelated<br/ >to the current clinical presentation.

Antibodi es induced by other flavivirus infections
(e.g. Dengue virus, [place] encephalitis virus)
ma y show cross-reactiv ity with WNV.
Test Performed at:
[employer]
[address]
[facility] [place] [address] Paige Gant MD CARDIAC Troponin-I <0.02 0.00 - 03/18 [facility] ENZYMES 0.40 /2014 [facility] HEMATOLOGY PT 14.5 12.0 - 03/17 [facility] 14.7 /2015 [facility] HEMATOLOGY INR 1.12 0.85 - 03/17 [place] 1.17 /2014 [facility] HEMATOLOGY PTT 31.2 22.9 - 03/17 [facility] 35.8 /2015 [facility] CARDIAC Troponin-I <0.02 0.00 - 03/17 [facility] ENZYMES 0.40 /2014 [facility] CHEM PANEL Ammonia 71.0 <=45.0 03/17 [facility] uMol/L /2014 [facility] BODY FLUIDS Glucose CSF 42 45 - 80 03/17 [facility] BODY FLUIDS Monocyte CSF 9 15 - 45 03/17 [place] /2014 [facility] BODY FLUIDS Eos CSF 1 03/17 [facility] BODY FLUIDS Lymph CSF 90 40 - 80 03/17 Result Comment: This Medical differential Center demonstrates an increase in lymphocytes with a low RBC counts. Called savannah [id number]_sam. Read back OK. BODY FLUIDS Clarity CSF Clear Clear 03/17 [place] (03/17/15 11:15 AM) /[facility] BODY FLUIDS Color CSF Colorless Colorless 03/17 [place] (03/17/15 11:15 AM) /[facility] BODY FLUIDS Tube Num CSF 3 03/17 [place] /2014 [facility] BODY FLUIDS Supernat CSF Colorless Colorless 03/17 (03/17/15 11:15 AM) [facility] BODY FLUIDS RBC CSF 3 0 - 03 03/17 [facility] Center BODY FLUIDS WBC CSF 140 0 - 53 03/17 [facility] Center BODY FLUIDS Protein CSF 71 15 - 45 03/17 Result Comment: Medical "Significant Center Findings called lj _Sonny Waters_at _03/17/2015 16:03_by _AAC_.Read Back OK." IMMUNOLOGY M-orybyq-U-As < 1:1 < 1:1 03/17 [place] partate Rcptr Comment: Medical Ab CSF INTERPRETIVE Center INFORMATION: M-adgcni-X-As partate
Receptor Ab, CSF
Anti- NMDA receptor IgG antibody is found in a subset of patients
with autoimmune limbic encephalitis and may occur with or without
associat ed tumor. Decreasing antibody levels may be associated
with therapeutic response; therefore, clinical correlation must be
strongly considered. A negative test result does not rule out a
diagn osis of autoimmune limbic encephalitis.
Test developed and characteristi cs determined by [facility]. See Compliance Statement B: [email or web address]
Perform ed by [employer],
[address], [facility] [place] [address]
[email or web address], Horacio Stinson MD - Lab. sas administrator VZV PCR NOT 03/17 Result [facility] Comment: Medical REFERENCE Center RANGE: NOT DETECTED

This test was developed and its performance<b r/>characteri stics have been determined by [facility]. Performance characteristi cs refer to
the analytical performance of the test.

This test is performed pursuant to a license
a greement with [employer]
Test Performed at:
[employer]
[address]
[place] [address] Paige Gant MD IMMUNOLOGY Source CSF 03/17 [place] /2014 [facility] IMMUNOLOGY VDRL Scr CSF Non Reactive Non 03/17 [place] (03/17/15 11:15 AM) Reactive /2014 [facility] MOLECULAR HSV 2 by PCR Negative 9 Negative 03/17 [place] [facility] (03/17/15 11:15 AM) /2014 Comment: T his Medical sample was Center NON DETECTED or BELOW THE LOWER LIMITS OF DETECTION<br/ >for HSV 1/2 DNA by real-time PCR using hybridization probe and
melti ng curve analysis. MOLECULAR HSV 1 by PCR Negative 8 Negative 03/17 [place] [facility] (03/17/15 11:15 AM) /2014 Comment: T his Medical sample was Center NON DETECTED or BELOW THE LOWER LIMITS OF DETECTION<br/ >for HSV 1/2 DNA by real-time PCR using hybridization probe and
melti ng curve analysis. MOLECULAR Source HSV Cerebral 03/17 [place] DIAGNOSTIC Spinal /2014 [facility] VIRAL - Enterovirus Negative Negative 03/17 [facility] SEROLOGY PCR CSF (03/17/15 11:15 AM) /2014 [facility] BACTERIAL - MRSA by PCR Negative 03/17 [place] SER[place] (03/17/15 7:34 AM) /2014 [facility] CHEM PANEL Procalcitonin <0.05 0.00 - 03/17 [place] L[place] ng/mL 0.10 /2014 [facility] TOXICOLOGY Valproic Acid 115 50 - 100 03/17 [place] Lvl /2014 [facility] BLOOD BANK Antibody Scrn Negative 03/17 [place] RESULTS (03/16/15 9:18 PM) /2014 [facility] BLOOD BANK ABO/Rh O POS 03/17 [place] RESULTS /2014 [facility] CHEM PANEL A/G Ratio 0.7 0.7 - 1.6 03/17 [facility] CHEM PANEL B/C Ratio 12 6 - 25 03/17 2014 [facility] CHEM PANEL Globulin 3.9 2.0 - 4.0 03/17 [facility] CHEM PANEL AST 5 0 - 37 03/17 2014 [facility] CHEM PANEL Alk Phos 110 39 - 136 03/17 2014 [facility] CHEM PANEL Bili Total 0.2 0.2 - 1.3 03/17 [facility] CHEM PANEL ALT 19 0 - 65 03/17 [facility] CHEM PANEL Total Protein 6.8 6.4 - 8.4 03/17 [facility] CHEM PANEL Albumin Lvl 2.9 3.5 - 5.0 03/17 [place] /2014 [facility] DRUG SCREEN UDS Note See Note 03/17 [place] *NA* Medical (03/16/15 9:18 PM) Center DRUG SCREEN U Propoxyph Negative Negative 03/17 [place] *NA* Medical (03/16/15 9:18 PM) Center DRUG SCREEN U Cannab [place] Negative Negative 03/17 [place] *NA* Medical (03/16/15 9:18 PM) Center DRUG SCREEN U Phencyc Scr Negative Negative 03/17 [place] *NA* Medical (03/16/15 9:18 PM) Center DRUG SCREEN U Methadone Negative Negative 03/17 [place] *NA* Medical (03/16/15 9:18 PM) Center DRUG SCREEN U Opiate Scr Negative Negative 03/17 [place] *NA* Medical (03/16/15 9:18 PM) Center DRUG SCREEN U Cocaine Scr Negative Negative 03/17 [place] *NA* Medical (03/16/15 9:18 PM) Center DRUG SCREEN U Benzodia Negative Negative 03/17 [place] *NA* Medical (03/16/15 9:18 PM) Center DRUG SCREEN U Starla Scr Negative Negative 03/17 [place] *NA* Medical (03/16/15 9:18 PM) Center DRUG SCREEN U Amph Scr Negative Negative 03/17 [place] *NA* Medical (03/16/15 9:18 PM) Center HEMATOLOGY PTT 29.7 22.9 - 07/31 [place] 35.8 /2014 [facility] PARATHYROID Ca Ion WB 1.15 1.05 - 03/17 [facility] PROFILE 1.25 [facility] PARATHYROID Ca Norm WB 1.12 1.05 - 03/17 [facility] PROFILE 1. [facility] URINE AND UA Bili Negative Negative 03/17 [facility] STOOL *NA* /2014 [facility] (03/16/15 9:18 PM) [place] URINE AND UA Ketones Negative Negative 03/17 [facility] mg/dL mg/dL /2014 [facility] URINE AND UA Nitrite Negative Negative 03/17 [facility] (03/16/15 9:18 PM) /2014 [facility] URINE AND UA Leuk Est Negative Negative 03/17 [facility] (03/16/15 9:18 PM) /[facility] URINE AND UA Blood Negative Negative 03/17 [facility] (03/16/15 9:18 PM) /2014 [facility] URINE AND UA Mucus Few /LPF None Seen 03/17 [facility] /LPF /2014 [facility] URINE AND UA Sq Epi Occasional Few /LPF 03/17 [facility] /LPF /2014 [facility] URINE AND UA RBC <1 0 - 2 03/17 [facility] /2014 [facility] URINE AND UA <=1.0 0.1 - 1.0 03/17 [facility] Urobilinogen mg/dL /2014 [facility] URINE AND UA Glucose Negative Negative 03/17 [facility] mg/dL mg/dL /2014 [facility] URINE AND UA pH 7.0 5.0 - 8.0 03/17 [facility] /2014 [facility] URINE AND UA Protein Negative Negative 03/17 [facility] mg/dL mg/dL /2014 [facility] URINE AND UA Turbidity Clear Clear 03/17 [facility] (03/16/15 9:18 PM) /2014 [facility] URINE AND UA Spec Grav 1.009 <=1.030 03/17 [facility] /2014 [facility] URINE AND UA Color Light Yellow Yellow 03/17 [facility] STOOL *NA* /2014 Medical (03/16/15 9:18 PM) [place] HEMATOLOGY PTT 36.1 22.9 - 03/16 <sup>20</sup> [facility] s 35.8 /2014 Interpretive Medical Data: [facility] Therapeutic Range: 57 - 92 Seconds HEMATOLOGY PT 14.6 12.0 - 10/31 [facility] 14.7 /2014 [facility] HEMATOLOGY INR 1.13 0.85 - 10/31 <sup>16</sup> [place] 1.17 Interpretive Medical Data: Center RECOMMENDED RANGES FOR PROTIME INR:
2.0-3.0 for most medical and surgical thromboemboli c states.
2.5-3.5 for artificial heart valves and recurrent embolism.<br/ >
INR SHOULD BE USED ONLY FOR PATIENTS ON STABLE ANTICOAGULANT THERAPY. TOXICOLOGY Vanco Tr TND 0830 10/31 [facility] TOXICOLOGY Vanco Tr 25.2 10/31 <sup>9</sup>I [facility] nterpretive Medical Data: [place] Therapeutic Range:
Trough: 10 - 20 ug/mL
Peak: 20 - 40 ug/mL
Potential Toxicity: >80 ug/mL CHEM PANEL Phosphorus 3.1 2.5 - 4.5 10/31 [facility]2014 [facility] CHEM PANEL Magnesium Lvl 1.8 1.8 - 2.4 10/31 [place] [facility] ELECTROLYTE AGAP 14.1 10.0 - 10/31 [facility] S 20.0 [facility] ELECTROLYTE eGFR 107 10/31 <sup>1</sup>R [facility] Medical Comment: The [facility] eGFR is calculated using the CKD-EPI formula. In most young, healthy individuals the eGFR will be >90 mL/min/1.73m2 . The eGFR declines with age. An eGFR of 60-89 may be normal in some populations, particularly the elderly, for whom the CKD-EPI formula has not been extensively validated. Use of the eGFR is not recommended in the following populations:& lt;br/>
I ndividuals with unstable creatinine concentration s, including patients and those with serious co-morbid conditions.<b r/>
Patie nts with extremes in muscle mass or diet.

The data above are obtained from the National Kidney Disease Education Program (NKDEP) which additionally recommends that when the eGFR is used in patients with extremes of body mass index for purposes of drug dosing, the eGFR should be multiplied by the estimated BMI. ELECTROLYTE Sodium Lvl 142 135 - 145 10/31 [place] [facility] ELECTROLYTE Chloride Lvl 107 95 - 109 10/31 [place] [facility] ELECTROLYTE Potassium Lvl 4.1 3.5 - 5.1 10/31 [place] [facility] ELECTROLYTE Calcium Lvl 8.5 8.5 - 10.5 10/31 [facility] [place] [facility] ELECTROLYTE CO2 25 24 - 32 10/31 [facility] ELECTROLYTE Creatinine 0.6 0.5 - 1.4 10/31 [place] [facility] ELECTROLYTE Glucose Lvl 62 70 - 99 10/31 <sup>4</sup>I nterpretive Medical Data: Adult Center reference range values reflect the clinical guidelines
of the [place] [employer]. ELECTROLYTE BUN 6 7 - 22 10/31 [facility] HEMATOLOGY Basophils # 0.1 0.0 - 0.2 10/31 [facility] HEMATOLOGY Segs-Bands # 5.7 1.5 - 8.1 10/31 [facility] HEMATOLOGY Eosinophils 5.0 0.0 - 4.0 10/31 [facility] HEMATOLOGY Lymphocytes 31.1 20.0 - 10/31 [place] 40.0 [facility] HEMATOLOGY Monocytes 5.7 2.0 - 12.0 10/31 [facility] HEMATOLOGY Segs 57.7 45.0 - 10/31 [place] 75.0 [facility] HEMATOLOGY Basophils 0.5 0.0 - 1.0 10/31 [facility] HEMATOLOGY Monocytes # 0.6 0.0 - 0.8 10/31 [facility] HEMATOLOGY Eosinophils # 0.5 0.0 - 0.5 10/31 [facility] HEMATOLOGY Lymphocytes # 3.1 1.0 - 5.5 10/31 [facility] HEMATOLOGY INR 1.08 0.85 - 10/31 <sup>17</sup> [facility] 1. Interpretive Medical Data: Center RECOMMENDED RANGES FOR PROTIME INR:
2.0-3.0 for most medical and surgical thromboemboli c states.
2.5-3.5 for artificial heart valves and recurrent embolism.<br/ >
INR SHOULD BE USED ONLY FOR PATIENTS ON STABLE ANTICOAGULANT THERAPY. HEMATOLOGY PTT 33.9 22.9 - 03 <sup>21</sup> [place] 35.8 /2014 Interpretive Medical Data: [facility] Therapeutic Range: 57 - 92 Seconds HEMATOLOGY PT 14.1 12.0 - 10/31 [place] 14.7 /2014 [facility] HEMATOLOGY WBC 10.0 3.7 - 10.4 10/31 /2014 [facility] HEMATOLOGY RBC 3.22 4.20 - 03 [place] 5.40 /2014 [facility] HEMATOLOGY Hct 28.9 36.0 - 10/31 [place] 48.0 /2014 [facility] HEMATOLOGY Hgb 9.7 12.0 - 03 [place] 16.0 /2014 [facility] HEMATOLOGY MCHC 33.4 32.0 - 10/31 [place] 36.0 /2014 [facility] HEMATOLOGY MCH 30.0 27.0 - 10/31 [place] 31.0 /2014 [facility] HEMATOLOGY MCV 89.8 80.0 - 10/31 [place] 98.0 /2014 [facility] HEMATOLOGY MPV 8.2 7.4 - 10.4 10/31 /2014 [facility] HEMATOLOGY Platelet 174 133 - 450 10/31 /2014 [facility] HEMATOLOGY RDW 16.4 11.5 - 03 [place] 14.5 [facility] PARATHYROID Ca Ion WB 1.08 1.05 - 10/31 [place] PROFILE 1.25 /2014 [facility] PARATHYROID Ca Norm WB 1.05 1.05 - 10/31 [place] PROFILE 1.25 [facility] CARDIAC Total CK 70 12 - 191 10/30 [place] ENZYMES [facility] CHEM PANEL Phosphorus 3.2 2.5 - 4.5 10/30 [place] /2014 [facility] CHEM PANEL Magnesium Lvl 1.8 1.8 - 2.4 10/30 [place] /2014 [facility] ELECTROLYTE AGAP 10.6 10.0 - 10/30 [place] S 20.0 [facility] ELECTROLYTE Glucose Lvl 79 70 - 99 10/30 <sup>5</sup>I [facility] S /2014 nterpretive Medical Data: Adult Center reference range values reflect the clinical guidelines
of the [place] [employer]. ELECTROLYTE BUN 8 7 - 22 10/30 [facility] ELECTROLYTE Creatinine 0.6 0.5 - 1.4 10/30 [place] [facility] ELECTROLYTE CO2 27 24 - 32 10/30 [facility] ELECTROLYTE Calcium Lvl 8.1 8.5 - 10.5 10/30 [place] [facility] ELECTROLYTE Potassium Lvl 3.6 3.5 - 5.1 10/30 [place] [facility] ELECTROLYTE Chloride Lvl 109 95 - 109 10/30 [place] [facility] ELECTROLYTE Sodium Lvl 143 135 - 145 10/30 [place] [facility] ELECTROLYTE eGFR 107 10/30 <sup>2</sup>R [facility] Comment: The Center eGFR is calculated using the CKD-EPI formula. In most young, healthy individuals the eGFR will be >90 mL/min/1.73m2 . The eGFR declines with age. An eGFR of 60-89 may be normal in some populations, particularly the elderly, for whom the CKD-EPI formula has not been extensively validated. Use of the eGFR is not recommended in the following populations:& lt;br/>
I ndividuals with unstable creatinine concentration s, including patients and those with serious co-morbid conditions.<b r/>
Patie nts with extremes in muscle mass or diet.

The data above are obtained from the National Kidney Disease Education Program (NKDEP) which additionally recommends that when the eGFR is used in patients with extremes of body mass index for purposes of drug dosing, the eGFR should be multiplied by the estimated BMI. HEMATOLOGY Eosinophils # 0.4 0.0 - 0.5 10/30 [place] [facility] HEMATOLOGY Lymphocytes # 4.9 1.0 - 5.5 10/30 [facility] HEMATOLOGY Monocytes # 0.6 0.0 - 0.8 10/30 [facility] HEMATOLOGY Segs 49.4 45.0 - 10/30 [place] 75.0 [facility] HEMATOLOGY Segs-Bands # 5.8 1.5 - 8.1 10/30 [facility] HEMATOLOGY Eosinophils 3.7 0.0 - 4.0 10/30 [facility] HEMATOLOGY Lymphocytes 41.4 20.0 - 10/30 [place] 40.0 /2014 [facility] HEMATOLOGY Basophils 0.4 0.0 - 1.0 10/30 [facility] HEMATOLOGY Monocytes 5.1 2.0 - 12.0 10/30 /2014 [facility] HEMATOLOGY MCH 29.4 27.0 - 10/30 [place] 31.0 /2014 [facility] HEMATOLOGY Hct 27.5 36.0 - 10/30 [place] 48.0 /2014 [facility] HEMATOLOGY RDW 16.3 11.5 - 10/30 [place] 14.5 /2014 [facility] HEMATOLOGY Platelet 137 133 - 450 10/30 [facility] HEMATOLOGY MPV 8.4 7.4 - 10.4 10/30 [facility] HEMATOLOGY Hgb 9.1 12.0 - 10/30 [place] 16.0 /2014 [facility] HEMATOLOGY MCHC 33.0 32.0 - 10/30 [place] 36.0 /2014 [facility] HEMATOLOGY RBC 3.09 4.20 - 10/30 [place] 5.40 /2014 [facility] HEMATOLOGY WBC 11.8 3.7 - 10.4 10/30 [facility] HEMATOLOGY MCV 89.0 80.0 - 10/30 [place] 98.0 /2014 [facility] HEMATOLOGY PT 13.5 12.0 - 10/30 [place] 14.7 /2014 [facility] HEMATOLOGY INR 1.03 0.85 - 10/30 <sup>18</sup> [place] 1.17 Interpretive Medical Data: Center RECOMMENDED RANGES FOR PROTIME INR:
2.0-3.0 for most medical and surgical thromboemboli c states.
2.5-3.5 for artificial heart valves and recurrent embolism.<br/ >
INR SHOULD BE USED ONLY FOR PATIENTS ON STABLE ANTICOAGULANT THERAPY. HEMATOLOGY PTT 31.6 22.9 - 10/30 <sup>22</sup> [place] 35.8 Interpretive Medical Data: [facility] Therapeutic Range: 57 - 92 Seconds PARATHYROID Ca Norm WB 1.10 1.05 - 10/30 [facility] PROFILE 1. [facility] PARATHYROID Ca Ion WB 1.11 1.05 - 10/30 [facility] PROFILE . [facility] CARDIAC Total CK 49 12 - 191 10/30 [facility] ENZYMES [facility] CARDIAC Troponin-T <0.010 0.000 - 10/30 [place] ENZYMES 0.100 /2014 [facility] CARDIAC Troponin-I 0.02 0.00 - 10/30 [place] ENZYMES 0.40 /2014 [facility] HEMATOLOGY Eosinophils # 0.2 0.0 - 0.5 10/30 [place] [facility] HEMATOLOGY Monocytes # 0.3 0.0 - 0.8 10/30 [place] [facility] HEMATOLOGY Basophils 0.4 0.0 - 1.0 10/30 [facility] HEMATOLOGY Segs-Bands # 3.2 1.5 - 8.1 10/30 [facility] HEMATOLOGY Lymphocytes # 2.3 1.0 - 5.5 10/30 [place] [facility] HEMATOLOGY Monocytes 4.8 2.0 - 12.0 10/30 [facility] HEMATOLOGY Eosinophils 3.1 0.0 - 4.0 10/30 [place] [facility] HEMATOLOGY Segs 53.2 45.0 - 10/30 [place] 75.0 [facility] HEMATOLOGY Lymphocytes 38.5 20.0 - 10/30 [place] 40.0 [facility] HEMATOLOGY Hct 14.9 36.0 - 10/30 <sup>15</sup> [place] 48.0 /2014 Result Medical Comment: Center Critical Result(s) called to Cadence Solano at 10/30/2014 01:18 byJw. Read back OK. HEMATOLOGY MCHC 32.8 32.0 - 10/30 [place] 36.0 /2014 [facility] HEMATOLOGY MCH 30.3 27.0 - 10/30 [place] 31.0 /2014 [facility] HEMATOLOGY MCV 92.2 80.0 - 10/30 [place] 98.0 /2015 [facility] HEMATOLOGY RDW 16.3 11.5 - 10/30 [place] 14.5 /2014 [facility] HEMATOLOGY Hgb 4.9 12.0 - 10/30 <sup>14</sup> [place] 16.0 /2014 Result Medical Comment: Center Critical Result(s) called to Cadence Solano at 10/30/2014 01:18 byJw. Read back OK. HEMATOLOGY RBC 1.61 4.20 - 10/30 [place] 5.40 /2014 [facility] HEMATOLOGY WBC 6.0 3.7 - 10.4 10/30 [facility] HEMATOLOGY MPV 8.1 7.4 - 10.4 10/30 [facility] HEMATOLOGY Platelet 73 133 - 450 10/30 [facility] PARATHYROID Ca Norm WB 0.63 1.05 - 10/30 [place] PROFILE 09.11 [facility] PARATHYROID Ca Ion WB 0.62 1.05 - 10/30 <sup>7</sup>R [place] PROFILE 09.11 esult Medical Comment: Center Critical Result(s) called to della pal at 10/30/2014 01:05 frida. Read back OK. CARDIAC Troponin-I <0.02 0.00 - 10/29 [facility] ENZYMES 0.40 /2014 [facility] CARDIAC Troponin-T <0.010 0.000 - 10/29 [facility] ENZYMES 0.100 /2014 [facility] CARDIAC Total CK 83 12 - 191 10/29 [facility] ENZYMES /2014 [facility] CARDIAC CK MB Index 0.7 0.0 - 2.5 10/29 [facility] ENZYMES /2014 [facility] CARDIAC CK MB 0.6 0.5 - 3.6 10/29 [facility] ENZYMES /2014 [facility] TOXICOLOGY Vanco Tr TND 0000 10/29 [facility] TOXICOLOGY Vanco Tr 23.9 10/29 <sup>10</sup> [facility] Interpretive Medical Data: Center Therapeutic Range:
Trough: 10 - 20 ug/mL
Peak: 20 - 40 ug/mL
Potential Toxicity: >80 ug/mL CHEM PANEL Lactic Acid 0.7 0.5 - 2.2 10/29 [place] L[place] [facility] CHEM PANEL Magnesium Lvl 1.8 1.8 - 2.4 10/29 [place] [facility] CHEM PANEL Phosphorus 2.8 2.5 - 4.5 10/29 [facility] ELECTROLYTE AGAP 11.0 10.0 - 10/29 [facility] S 20.0 [facility] ELECTROLYTE BUN 10 7 - 22 10/29 [facility] S [facility] ELECTROLYTE Glucose Lvl 83 70 - 99 10/29 <sup>6</sup>I nterpretive Medical Data: Adult Center reference range values reflect the clinical guidelines
of the [place] [employer]. ELECTROLYTE Sodium Lvl 145 135 - 145 10/29 [facility] ELECTROLYTE Creatinine 0.7 0.5 - 1.4 10/29 [facility] S l [facility] ELECTROLYTE eGFR 101 10/29 <sup>3</sup>R [facility] Medical Comment: The Center eGFR is calculated using the CKD-EPI formula. In most young, healthy individuals the eGFR will be >90 mL/min/1.73m2 . The eGFR declines with age. An eGFR of 60-89 may be normal in some populations, particularly the elderly, for whom the CKD-EPI formula has not been extensively validated. Use of the eGFR is not recommended in the following populations:& lt;br/>
I ndividuals with unstable creatinine concentration s, including patients and those with serious co-morbid conditions.<b r/>
Patie nts with extremes in muscle mass or diet.

The data above are obtained from the National Kidney Disease Education Program (NKDEP) which additionally recommends that when the eGFR is used in patients with extremes of body mass index for purposes of drug dosing, the eGFR should be multiplied by the estimated BMI. ELECTROLYTE CO2 24 24 - 32 10/29 [facility] ELECTROLYTE Calcium Lvl 7.9 8.5 - 10.5 10/29 [place] [facility] ELECTROLYTE Chloride Lvl 114 95 - 109 10/29 [facility] ELECTROLYTE Potassium Lvl 4.0 3.5 - 5.1 10/29 [place] [facility] HEMATOLOGY Basophils # 0.1 0.0 - 0.2 10/29 [facility] 2014 [facility] TOXICOLOGY Vanco Tr TND 10/30 830 10/28 [facility] TOXICOLOGY Vanco Tr 9.7 10/28 <sup>11</sup> [facility] Interpretive Medical Data: Center Therapeutic Range:
Trough: 10 - 20 ug/mL
Peak: 20 - 40 ug/mL
Potential Toxicity: >80 ug/mL HEMATOLOGY Pat Od Value 0.046 10/28 [facility]2014 [facility] HEMATOLOGY Pos CO Value 0.392 10/[address] HEMATOLOGY Heparin Negative Negative 10/28 [facility] Ab(REGI) (10/28/14 6:00 AM) /2014 [facility] CHEM PANEL Lactic Acid 1.0 0.5 - 2.2 10/27 [place] /2014 [facility] IMMUNOLOGY C-REACTIVE 24.4 <=2.9 mg/L 10/27 [place] PROTEIN /2014 [facility] THYROID TSH 0.120 0.360 - 10/27 [facility] PANEL 3.740 /2014 [facility] THYROID T4 Free 0.96 0.76 - 10/27 [facility] PANEL 1.46 /2014 [facility] CHEM PANEL Lactic Acid 1.6 0.5 - 2.2 10/27 [place] /2014 [facility] HEMATOLOGY RBC Morph Normal 10/27 [facility] (10/27/14 2:00 AM) /2014 [facility] HEMATOLOGY Plt Morph Normal 10/27 [facility] (10/27/14 2:00 AM) /2014 [facility] HEMATOLOGY Sed Rate 28 0 - 20 10/27 [facility] TOXICOLOGY Cyanide Lvl <0.1 <0.1 mg/L 10/26 <sup>12</sup> M H Result Medical Comment: Test Center Performed at:
[facility] [place]<br/ >Beatty [place], [facility] Scarlett Howe
[place], [place] [facility] TOXICOLOGY Cyanide Lvl <0.1 <0.1 mg/L 10/26 <sup>13</sup> M H Result Medical Comment: Test Center Performed at:
[facility] [place]<br/ >Rogerio Rojas [id number]
[place], [place] [facility] BLOOD BANK Antibody Scrn Negative 10/26 [facility] as RESULTS (10/26/14 4:24 PM) /2014 [facility] BLOOD BANK ABO/Rh O POS 10/26 [facility] RESULTS /2014 [facility] CHEM PANEL Lipase Lvl 70 73 - 393 10/26 [facility] CHEM PANEL Procalcitonin 0.15 0.00 - 10/26 [place] 0.10 /2014 [facility] HEMATOLOGY Fibrinogen 348 230 - 510 10/26 [facility] Lvl /2014 [facility] HEMATOLOGY D-Dimer 0.21 10/26 <sup>19</sup> Interpretive Medical Data: In DIC, Center quantitative D-Dimer is generally greater than
0 .66 ug/mL FEU. Values of quantitative D-Dimer less than
0.40 ug/mL FEU have been reported to be associated with a low
proba bility of deep vein thrombosis/pu lmonary embolism.<br/ >This test alone should not be used to rule out DVT/PE. IMMUNOLOGY C-REACTIVE 29.2 <=2.9 mg/L 10/26 [facility] PROTEIN [facility] CARDIAC Troponin-T <0.010 0.000 - 10/26 [facility] ENZYMES 0.100 /2014 [facility] CARDIAC Troponin-I 0.02 0.00 - 10/26 [facility] ENZYMES 0.40 [facility] CHEM PANEL Procalcitonin 0.14 0.00 - 10/26 [facility] Lvl 0.10 [facility] HEMATOLOGY RBC Morph Normal 10/26 [facility] (10/26/14 1:30 PM) [facility] HEMATOLOGY Plt Morph Normal 10/26 [facility] (10/26/14 1:30 PM) /2014 [facility] HEMATOLOGY Atypical 0.0 <=0.0 % 10/26 [facility] Lymph [facility] HEMATOLOGY Bands 1.0 0.0 - 11.0 10/[address] CHEM PANEL Bili Indirect 0.1 0.0 - 1.0 10/26 [facility] CHEM PANEL Bili Total 0.2 0.2 - 1.3 10/26 [facility] CHEM PANEL Bili Direct 0.1 0.0 - 0.3 10/26 [facility] CHEM PANEL AST 11 0 - 37 10/26 [facility]2014 [facility] CHEM PANEL Alk Phos 115 39 - 136 10/26 [facility]2014 [facility] CHEM PANEL Albumin Lvl 2.9 3.5 - 5.0 10/26 [facility] 2014 [facility] CHEM PANEL Globulin 3.2 2.0 - 4.0 10/[address] CHEM PANEL Total Protein 6.1 6.4 - 8.4 10/26 [facility] CHEM PANEL ALT 23 0 - 65 10/26 [facility] CHEM PANEL A/G Ratio 0.9 0.7 - 1.6 10/26 [facility] HEMATOLOGY Basophils # 0.1 0.0 - 0.2 10/26 a [place] [facility] CHEM PANEL Procalcitonin 0.05 0.00 - 10/26 [place] 0.10 [facility] DRUG SCREEN U O[place]ate [place]r Negative Negative 10[place] (10/26/14 1:40 AM) [facility] U Cannab [place]r Negative Negative [place] (10/26/14 1:40 AM) /[facility] DRUG SCREEN U Cocaine Scr Negative Negative 10/26 [place] (10/26/14 1:40 AM) /[facility] Center DRUG SCREEN U Benzodia Positive Negative 10/26 [facility] Scr *ABN* /2014 [facility] (10/26/14 1:40 AM) Center DRUG SCREEN U Phencyc Scr Negative Negative 10/26 [place] (10/26/14 1:40 AM) /2014 [facility] DRUG SCREEN UDS Note See Note 8 10/26 <sup>8</sup>I [facility] (10/26/14 1:40 AM) nterpretive Ga dical Data: Drugs Center reported as positive have not been confirmed by a second
fl thod and should be used for medical purposes only. To order
con firmation, contact laboratory.<b r/>
not e: Below are cut-off concentration s for all urine drugs of
abuse performed in the laboratory. Some drugs listed in the table
may not be included in this panel.
<b r/>Descriptio n Cut-off concentration
----- ------
Am phetamine 1000 ng/mL
Bar biturates 200 ng/mL
Aung zodiazepines 300 ng/mL
Noreen crystal metabolites 300 ng/mL
Opi ates 300 ng/mL
Phencyclidine 25 ng/mL
Pro poxyphene 300 ng/mL
Marijuana metabolites 50 ng/mL
Met hadone 300 ng/mL
Urine alcohol 20 mg/dL DRUG SCREEN U Amph Scr Negative Negative 10/26 [facility] (10/26/14 1:40 AM) /[facility] DRUG SCREEN U Starla Scr Negative Negative 10/26 [facility] (10/26/14 1:40 AM) /2014 [facility] URINE AND UA Glucose Negative Negative 10/26 [facility] STOOL (10/26/14 1:40 AM) /2014 [facility] URINE AND UA Protein Negative Negative 10/26 [facility] (10/26/14 1:40 AM) /2014 [facility] URINE AND UA Ketones Negative Negative 10/26 [facility] (10/26/14 1:40 AM) /2014 [facility] URINE AND UA Renal Epi 5 <=0 /LPF 10/26 [facility] /2014 [facility] URINE AND UA Mucus Few /LPF None Seen 10/26 [facility] STOOL /LPF /2014 [facility] URINE AND UA Sq Epi Moderate Few /LPF 10/26 [facility] /LPF /2014 [facility] URINE AND UA Hyal Cast 28 0 - 2 10/26 [facility] /2014 [facility] URINE AND UA Blood Negative Negative 10/26 [facility] (10/26/14 1:40 AM) [facility] URINE AND UA Bili Negative Negative 10/26 [facility] (10/26/14 1:40 AM) /[facility] URINE AND UA Nitrite Negative Negative 10/26 [facility] (10/26/14 1:40 AM) [facility] URINE AND UA <=1.0 0.1 - 1.0 10/26 [facility] Urobilinogen /2014 [facility] URINE AND UA Leuk Est Negative Negative 10/26 [facility] (10/26/14 1:40 AM) [facility] URINE AND UA Spec Grav 1.009 <=1.030 10/26 [facility] /[address] [place] [address] URINE AND UA Turbidity Slight Clear 10/26 [facility] *ABN* /2014 [facility] (10/26/14 1:40 AM) [place] URINE AND UA Color Yellow Yellow 10/26 [facility] (10/26/14 1:40 AM) Medica l [place] URINE AND UA pH 5.0 5.0 - 8.0 10/26 [facility] STOOL /2014 [facility] HEMATOLOGY Angle 76.5 53.0 - 10/26 [facility] 72.0 [facility] HEMATOLOGY Max Amp 74.1 50.0 - 10/26 [facility] 70.0 [facility] HEMATOLOGY G-value 14.3 4.5 - 11.0 10/26 [facility] /2014 [facility] HEMATOLOGY TEG Data See Note 23 10/26 <sup>23</sup> [facility] (10/25/14 9:45 PM) Interpretive M edical Data: Normal Center ranges are for citrated whole blood with kaolin activator.

R TIME: Reflects the degree of anti-coagulat ion due to LMWH, unfractionate d heparin, and coumadin as well as non-specific< br/>factor deficiencies.

K TIME, ALPHA ANGLE, AND MA(MAX AMPLITUDE): Have been
asso ciated with the platelet release reaction and fibrin
po lymer formation. These parameters assess the speed of clot
form ation and the tensil strength of the clot. Higher levels
ar e associated with hypercoagulab le states.
< br/>G VALUE: Another measure of clot strength.<br/ >
LY30: Percent lysis in 30 Minutes is associated with the degree
of fibrinolysis.

CI or COAG INDEX: A calculation from the above measured data
madelin cating an overall hyper or hypo coagulability with values
ab ove (plus) +3.0 being relatively hypercoagulab le and those
bel ow (minus) -3.0 being relatively hypocoagulabl e.
<br/&g t;These measurements are functional in nature with many variables<br/ >and require close clinical correlation.< br/>
Thro mboelasograph y (TEG) is mostly used to monitor significant coagulopathy in trauma patients or surgical patients. It assesses gloabal (primary and secondary) hemostasis using whole blood and therefore, not expected to correlate well with conventional coagulation tests. TEG results need to be correlated with clinical evaluation for patient management. HEMATOLOGY Coag Index 3.4 -3.0-3.0 - 10/26 [facility] s 3.0 [facility] HEMATOLOGY K-time 1.0 1.0 - 3.0 10/26 [facility] HEMATOLOGY R-time 5.1 5.0 - 10.0 10/26 [facility]2014 [facility] HEMATOLOGY Ly30 0.9 0.0 - 7.5 10/26 [facility]2014 [facility] HEMATOLOGY TEG Interp Thrombelas 10/26 [facility] tograph [facility] show increased values of both Angle Alpha and MA. These findings are suggestive of platelet hypercoagu lation. CPT:89255 LIPIDS VLDL 35 10/26 [facility] LIPIDS LDL 60 <=99 mg/dL 10/26 [facility] (Calculated) [facility] LIPIDS CHD Risk 2.76 3.90 - 10/26 [facility] 5.80 [facility] LIPIDS HDL 54 >=61 mg/dL 10/26 [facility] LIPIDS Trig 173 <=149 10/26 [facility] mg/dL [facility] LIPIDS Chol 149 <=199 10/26 [facility] mg/dL [facility] SPECIAL Hgb A1C 5.7 <=5.6 % 10/26 [facility] CHEMISTRY [facility] CHEM PANEL Phosphorus 3.7 2.5 - 4.5 11/14 [facility] CHEM PANEL Magnesium Lvl 1.7 1.8 - 2.4 11/14 [place] [facility] ELECTROLYTE AGAP 13.6 10.0 - 11/14 [facility] S 20.0 [facility] ELECTROLYTE eGFR 87 11/14 <sup>1</sup>R [facility] as S [facility] Medical Comment: The Center eGFR is calculated using the CKD-EPI formula. In most young, healthy individuals the eGFR will be >90 mL/min/1.73m2 . The eGFR declines with age. An eGFR of 60-89 may be normal in some populations, particularly the elderly, for whom the CKD-EPI formula has not been extensively validated. Use of the eGFR is not recommended in the following populations:& lt;br/>
I ndividuals with unstable creatinine concentration s, including patients and those with serious co-morbid conditions.<b r/>
Patie nts with extremes in muscle mass or diet.

The data above are obtained from the National Kidney Disease Education Program (NKDEP) which additionally recommends that when the eGFR is used in patients with extremes of body mass index for purposes of drug dosing, the eGFR should be multiplied by the estimated BMI. ELECTROLYTE BUN 23 7 - 22 11/14 [facility] ELECTROLYTE Glucose Lvl 70 70 - 99 11/14 <sup>3</sup>I [facility] nterpretive Medical Data: [facility] reference range values reflect the clinical guidelines
of the [place] [employer]. ELECTROLYTE Creatinine 0.8 0.5 - 1.4 11/14 [facility] s S Lvl [facility] ELECTROLYTE Sodium Lvl 140 135 - 145 11/14 [facility] S [facility] ELECTROLYTE Potassium Lvl 4.6 3.5 - 5.1 11/14 [place] [facility] ELECTROLYTE Chloride Lvl 107 95 - 109 11/14 [facility] as [facility] ELECTROLYTE CO2 24 24 - 32 11/14 [facility] ELECTROLYTE Calcium Lvl 8.8 8.5 - 10.5 11/14 [place] [facility] HEMATOLOGY INR 1.97 0.85 - 11/14 <sup>6</sup>I [facility] s 1.17 nterpretive Medical Data: Center RECOMMENDED RANGES FOR PROTIME INR:
2.0-3.0 for most medical and surgical thromboemboli c states.
2.5-3.5 for artificial heart valves and recurrent embolism.<br/ >
INR SHOULD BE USED ONLY FOR PATIENTS ON STABLE ANTICOAGULANT THERAPY. HEMATOLOGY PT 22.1 12.0 - 11/14 [facility] 14.7 [facility] LIPIDS LDL 93 <=99 mg/dL 11/14 [facility] (Calculated) [facility] LIPIDS VLDL 66 11/14 [facility] LIPIDS Trig 330 <=149 11/14 [facility] mg/dL [facility] LIPIDS Chol 197 <=199 11/14 [facility] mg/dL [facility] LIPIDS HDL 38 >=61 mg/dL 11/14 [facility] LIPIDS CHD Risk 5.18 3.90 - 11/14 [facility] 5.80 /2013 [facility] DRUG SCREEN U Phencyc Scr Positive Negative 11/14 [place] *ABN* [facility] (11/13/2013 20:09:21 [facility]) Center DRUG SCREEN UDS Note See Note 5 11/14 <sup>5</sup>I [facility] (11/13/2013 20:09:21 [facility]) nterpretive Medical Data: Drugs Center reported as positive have not been confirmed by a second
method and should be used for medical purposes only. To order
con firmation, contact laboratory.

n ote: Below are cut-off concentration s for all urine drugs of
abuse performed in the laboratory. Some drugs listed in the table
may not be included in this panel.
<b r/>Descriptio n Cut-off concentration
-------- ---
Amphe tamine 1000 ng/mL
Bar biturates 200 ng/mL
Aung zodiazepines 300 ng/mL
Noreen crystal metabolites 300 ng/mL
Opi ates 300 ng/mL
Phe ncyclidine 25 ng/mL
Pro poxyphene 300 ng/mL
Mar ijuana metabolites 50 ng/mL
Met hadone 300 ng/mL
Uri ne alcohol 20 mg/dL DRUG SCREEN U [place]r Negative Negative 11[place]14 [place] *NA* /2013 Medical (11/13/2013 20:09:21 [facility]) Center DRUG SCREEN U Benzodia Positive Negative [place] *ABN* Medical (11/13/2013 20:09:21 [facility]) Center DRUG SCREEN U O[place]ate [place]r Positive Negative 11[place]14 [place] *ABN* /2013 Medical (11/13/2013 20:09:21 [facility]) Center DRUG SCREEN U Cocaine Scr Negative Negative 11/14 [place] *NA* Medical (11/13/2013 20:09:21 [facility]) Center DRUG SCREEN U Cannab Scr Negative Negative 11/14 [place] *NA* Medical (11/13/2013 20:09:21 [facility]) Center DRUG SCREEN U Amph Scr Negative Negative 11/14 [place] *NA* Medical (11/13/2013 20:09:21 [facility] Center DRUG SCREEN U Methadone Negative Negative 11/14 [place] *NA* Medical (11/13/2013 20:09:21 [facility]) Center DRUG SCREEN U Propoxyph Negative Negative 11/14 [place] *NA* Medical (11/13/2013 20:09:21 [facility]) Center URINE AND UA Hyal Cast 2 0 - 2 11/14 [facility] /2013 [facility] URINE AND UA <=1.0 0.1 - 1.0 11/14 [facility] Urobilinogen mg/dL /2013 [facility] [place] URINE AND UA Turbidity Slight Clear 11/14 [facility] STOOL *ABN* Medical (11/13/2013 20:09:00 [facility] [place] URINE AND UA Color Yellow Yellow 11/14 [facility] *NA* Medical (11/13/2013 20:09:00 [facility] [place] URINE AND UA pH 6.5 5.0 - 8.0 11/14 [facility] STOOL /2013 [facility] URINE AND UA Spec Grav 1.024 <=1.030 11/14 [facility] STOOL [facility] [place] URINE AND UA Protein 20 mg/dL Negative 11/14 [facility] STOOL mg/dL Medical Center URINE AND UA Ketones Negative Negative 11/14 [facility] STOOL mg/dL mg/dL [facility] [place] URINE AND UA Glucose Negative Negative 11/14 [facility] STOOL mg/dL mg/dL [facility] [place] URINE AND UA Blood Negative Negative 11/14 [facility] (11/13/2013 20:09:00 [facility]) /2013 [facility] Center URINE AND UA Bili Negative Negative 11/14 [facility] STOOL *NA* /2013 Medical (11/13/2013 20:09:00 [facility]) Center URINE AND UA Leuk Est Small Negative 11/14 [facility] STOOL *ABN* Medical (11/13/2013 20:09:00 [facility]) Center URINE AND UA Nitrite Negative Negative 11/14 [facility] (11/13/2013 20:09:00 [facility] Medical Center URINE AND UA WBC 3 0 - 5 11/14 [facility] STOOL [facility] URINE AND UA Sq Epi Many /LPF Few /LPF 11/14 [facility] STOOL Medical Center URINE AND UA Bacteria Occasional None Seen 11/14 [place] /HPF /HPF /2013 [facility] [place] URINE AND UA RBC 1 0 - 2 11/14 [facility] STOOL [facility] URINE AND UA Amorph Occasional None Seen 11/[place] /HPF /HPF /2013 Medical Center URINE AND UA Mucus Few /LPF None Seen 11/14 [facility] STOOL /LPF /2013 [facility] Center URINE CHEM U Preg Negative Negative 11/14 [facility] (11/13/2013 20:09:00 [facility]) /2013 Medical Center CARDIAC Troponin-T <0.010 0.000 - 11/13 [facility] ENZYMES 0.100 [facility] CARDIAC Troponin-I <0.02 0.00 - 11/13 [place] ENZYMES 0.40 [facility] CARDIAC Total CK 107 12 - 191 11/13 [facility] CARDIAC CK MB Index 0.5 0.0 - 2.5 11/13 [place] [facility] CARDIAC CK MB 0.5 0.5 - 3.6 11/13 [place] [facility] CHEM PANEL Bili Indirect 0.1 0.0 - 1.0 11/13 [place] [facility] CHEM PANEL Bili Total 0.2 0.2 - 1.3 11/13 [facility] CHEM PANEL Bili Direct 0.1 0.0 - 0.3 11/13 [place] [facility] CHEM PANEL AST 24 0 - 37 11/13 [facility] CHEM PANEL A/G Ratio 0.9 0.7 - 1.6 11/13 [facility] CHEM PANEL ALT 40 0 - 65 11/13 [facility] CHEM PANEL Total Protein 6.4 6.4 - 8.4 11/13 [place] [facility] CHEM PANEL Albumin Lvl 3.0 3.5 - 5.0 11/13 [facility] CHEM PANEL Globulin 3.4 2.0 - 4.0 11/13 [facility] CHEM PANEL Alk Phos 118 39 - 136 11/13 [facility] SPECIAL Hgb A1C 5.0 <=5.6 % 11/13 [facility] CARDIAC CK MB Index 0.6 0.0 - 2.5 11/13 [facility] CARDIAC Troponin-I <0.02 0.00 - 11/13 [facility] ENZYMES 0.40 [facility] CARDIAC CK MB 0.6 0.5 - 3.6 11/13 [facility] CARDIAC Total CK 108 12 - 191 11/13 [facility] CHEM PANEL eGFR 75 11/13 <sup>2</sup>R esult Medical Comment: The Center eGFR is calculated using the CKD-EPI formula. In most young, healthy individuals the eGFR will be >90 mL/min/1.73m2 . The eGFR declines with age. An eGFR of 60-89 may be normal in some populations, particularly the elderly, for whom the CKD-EPI formula has not been extensively validated. Use of the eGFR is not recommended in the following populations:& lt;br/>
I ndividuals with unstable creatinine concentration s, including patients and those with serious co-morbid conditions.<b r/>
Patie nts with extremes in muscle mass or diet.

The data above are obtained from the National Kidney Disease Education Program (NKDEP) which additionally recommends that when the eGFR is used in patients with extremes of body mass index for purposes of drug dosing, the eGFR should be multiplied by the estimated BMI. CHEM PANEL AGAP 13.1 10.0 - 11/13 20. [facility] CHEM PANEL CO2 26 24 - 32 11/13 [facility] CHEM PANEL Chloride Lvl 106 95 - 109 11/13 [facility] CHEM PANEL Calcium Lvl 8.6 8.5 - 10.5 11/13 [facility] CHEM PANEL Creatinine 0.9 0.5 - 1.4 11/13 [facility] Lvl [facility] CHEM PANEL BUN 12 7 - 22 11/13 [facility] CHEM PANEL Potassium Lvl 4.1 3.5 - 5.1 11/13 [facility] CHEM PANEL Sodium Lvl 141 135 - 145 11/13 [facility] CHEM PANEL Glucose Lvl 81 70 - 99 11/13 <sup>4</sup>I nterpretive Medical Data: Adult Center reference range values reflect the clinical guidelines
of the [place] [employer]. HEMATOLOGY Monocytes 4.1 2.0 - 12.0 11/13 [facility] HEMATOLOGY Eosinophils 1.4 0.0 - 4.0 11/13 [facility] HEMATOLOGY Basophils 0.0 0.0 - 1.0 11/13 [facility] HEMATOLOGY Segs-Bands # 4.7 1.5 - 8.1 11/13 [facility] HEMATOLOGY Lymphocytes # 6.0 1.0 - 5.5 11/13 [facility] HEMATOLOGY Monocytes # 0.5 0.0 - 0.8 11/13 [facility] HEMATOLOGY Segs 41.0 45.0 - 11/13 75.0 [facility] HEMATOLOGY Lymphocytes 53.5 20.0 - 11/13 40.0 [facility] HEMATOLOGY Eosinophils # 0.2 0.0 - 0.5 11/13 [facility] HEMATOLOGY Basophils # 0.0 0.0 - 0.2 11/13 [facility] HEMATOLOGY PT 24.2 12.0 - 11/13 14.7 [facility] HEMATOLOGY INR 2.22 0.85 - 11/13 <sup>7</sup>I [facility] s 1.17 nterpretive Medical Data: Center RECOMMENDED RANGES FOR PROTIME INR:
2.0-3.0 for most medical and surgical thromboemboli c states.
2.5-3.5 for artificial heart valves and recurrent embolism.<br/ >
INR SHOULD BE USED ONLY FOR PATIENTS ON STABLE ANTICOAGULANT THERAPY. HEMATOLOGY PTT 39.1 22.9 - 11/13 <sup>8</sup>I [place] 35.8 nterpretive Medical Data: Heparin Center Therapeutic Range: 57 - 92 Seconds HEMATOLOGY Platelet 486 133 - 450 11/13 [facility] HEMATOLOGY RDW 17.1 11.5 - 11/13 [place] 14.5 /2013 [facility] HEMATOLOGY MPV 7.0 7.4 - 10.4 11/13 [facility] HEMATOLOGY MCHC 33.7 32.0 - 11/13 [place] 36.0 [facility] HEMATOLOGY MCH 28.2 27.0 - 11/13 [place] 31.0 [facility] HEMATOLOGY RBC 4.35 4.20 - 11/13 [facility] 5.40 /2013 [facility] HEMATOLOGY WBC 11.4 3.7 - 10.4 11/13 [facility] HEMATOLOGY MCV 83.7 81.0 - 11/13 [facility] 99.0 /2013 [facility] HEMATOLOGY Hgb 12.3 12.0 - 11/13 16.0 [facility] HEMATOLOGY Hct 36.4 36.0 - 11/13 [facility] 48.0 [facility] CHEMISTRY AGAP 15.8 10.0 - 05/12 Normal [facility] 20. [facility] CHEMISTRY eGFR 136 05/12 NA <sup>5</sup>R esult Medical Comment: The Center eGFR is calculated using the CKD-EPI formula. In most young, healthy individuals the eGFR will be >90 mL/min/1.73m2 . The eGFR declines with age. An eGFR of 60-89 may be normal in some populations, particularly the elderly, for whom the CKD-EPI formula has not been extensively validated. Use of the eGFR is not recommended in the following populations:& lt;br/>
I ndividuals with unstable creatinine concentration s, including patients and those with serious co-morbid conditions.<b r/>
Patie nts with extremes in muscle mass or diet.

The data above are obtained from the National Kidney Disease Education Program (NKDEP) which additionally recommends that when the eGFR is used in patients with extremes of body mass index for purposes of drug dosing, the eGFR should be multiplied by the estimated BMI. CHEMISTRY CO2 23 24 - 32 05/12 [facility]OW [facility] CHEMISTRY Sodium Lvl 142 135 - 145 05/12 Normal [facility] CHEMISTRY Creatinine 0.3 0.5 - 1.4 05/12 LOW [place] [facility] CHEMISTRY Calcium Lvl 7.7 8.5 - 10.5 05/12 LOW a [facility] CHEMISTRY BUN 5 7 - 22 05/12 LOW [facility] CHEMISTRY Glucose Lvl 72 70 - 99 05/12 Normal <sup>8</sup>I MH T ex nterpretive Medical Data: Adult Center reference range values reflect the clinical guidelines
of the [place] [employer]. CHEMISTRY Chloride Lvl 107 95 - 109 05/12 Normal [facility] CHEMISTRY Potassium Lvl 3.8 3.5 - 5.1 05/12 Normal [facility] HEMATOLOGY Segs-Bands # 7.8 1.5 - 8.1 05/12 Normal [facility] HEMATOLOGY Lymphocytes # 3.5 1.0 - 5.5 05/12 Normal Te [facility] HEMATOLOGY Monocytes # 0.9 0.0 - 0.8 05/12 [place] a [facility] HEMATOLOGY Eosinophils # 0.3 0.0 - 0.5 05/12 Normal Te [facility] HEMATOLOGY Basophils # 0.1 0.0 - 0.2 05/12 Normal [facility] HEMATOLOGY Monocytes 7.4 2.0 - 12.0 05/12 Normal [facility] HEMATOLOGY Basophils 0.7 0.0 - 1.0 05/12 Normal [facility] HEMATOLOGY Lymphocytes 27.8 20.0 - 05/12 Normal [place] 40.0 [facility] Center HEMATOLOGY Eosinophils 2.7 0.0 - 4.0 05/12 [facility] [place] [facility] HEMATOLOGY Segs 61.4 45.0 - 05/12 Normal [place] 75.0 Medical Center HEMATOLOGY MCV 88.5 81.0 - 05/12 Normal [place] 99.0 Medical Center HEMATOLOGY RDW 15.2 11.5 - 05/12 HI [place] 14.5 Medical Center HEMATOLOGY MCHC 32.5 32.0 - 05/12 Normal [place] 36.0 Medical Center HEMATOLOGY Platelet 252 133 - 450 09/25 Normal [facility] HEMATOLOGY MPV 7.7 7.4 - 10.4 05/12 Normal [facility] HEMATOLOGY WBC 12.8 3.7 - 10.4 05/12 [place] [facility] HEMATOLOGY RBC 3.82 4.20 - 05/12 LOW [facility] 5.40 /2012 [facility] HEMATOLOGY Hgb 11.0 12.0 - 05/12 LOW [facility] 16.0 /2012 [facility] HEMATOLOGY Hct 33.8 36.0 - 05/12 LOW [facility] 48.0 /2012 [facility] HEMATOLOGY MCH 28.8 27.0 - 05/12 Normal [facility] 31.0 /2012 [facility] BEDSIDE Gluc POC 89 70 - 99 05/11 Normal <sup>2</sup>I [facility] GLUCOSE nterpretive Medical TESTING Data: Center Upper Reportable Limit: 200 mg/dL. CHEMISTRY Opiate Scr Negative Negative 05/11 Normal [facility] (05/11/2013 02:00:00) Ga dical Center CHEMISTRY PCP Scr Negative Negative 05/11 Normal [facility] (05/11/2013 02:00:00) Ga dical Center CHEMISTRY Propoxyphn Negative Negative 05/11 Normal [facility] Scr (05/11/2013 02:00:00) Ga dical Center CHEMISTRY Cocaine Scr Negative Negative 05/11 Normal [facility] (05/11/2013 02:00:00) Ga dical Center CHEMISTRY Methadone Scr Positive Negative 05/11 ABN [place] *ABN* /2012 Medical (05/11/2013 02:00:00) Ce nter CHEMISTRY Cutoff Values See Note 12 05/11 Normal <sup>12</sup > [facility] (05/11/2013 02:00:00) Interpreti ve Medical Data: Cutoff Center (lowest detectable by EIA) values for Serum Drugscreen:<b r/> THC and PCP: 1 ng/mL
All others: 20 ng/mL

Cutoff (lowest detectable by GC/MS) value for confirmation:
THC and PCP: 1 ng/mL
Benzodiazepi rebecca: 5 ng/ml
All others: 10 ng/ml

Test performed by [facility]
[address] [facility]
[place] [address] CHEMISTRY Starla Scr Negative Negative 05/11 Normal [facility] (05/11/2013 02:00:00) Ga dicla Center CHEMISTRY Benzodiaz Scr Negative Negative 05/11 Normal [place] [facility]2013 [facility]00[facility]00[facility] Negative Negative 05/11 Normal [facility] (05/11/2013 02:00:00) Ga dicla Center CHEMISTRY Amph Scr Negative Negative 05/11 Normal [facility] (05/11/2013 02:00:00) [facility] CHEMISTRY Ca Ion WB 1.09 1.05 - 05/11 Normal [place] 1. [facility] CHEMISTRY Ca Norm WB 1.07 1.05 - 05/11 Normal [facility] . [facility] CHEMISTRY Magnesium Lvl 2.0 1.8 - 2.4 05/11 Normal [place] [facility] CHEMISTRY Phosphorus 2.6 2.5 - 4.5 05/11 Normal [facility] CHEMISTRY eGFR 108 05/11 NA <sup>6</sup>R esult Medical Comment: The Center eGFR is calculated using the CKD-EPI formula. In most young, healthy individuals the eGFR will be >90 mL/min/1.73m2 . The eGFR declines with age. An eGFR of 60-89 may be normal in some populations, particularly the elderly, for whom the CKD-EPI formula has not been extensively validated. Use of the eGFR is not recommended in the following populations:& lt;br/>
I ndividuals with unstable creatinine concentration s, including patients and those with serious co-morbid conditions.<b r/>
Patie nts with extremes in muscle mass or diet.

The data above are obtained from the National Kidney Disease Education Program (NKDEP) which additionally recommends that when the eGFR is used in patients with extremes of body mass index for purposes of drug dosing, the eGFR should be multiplied by the estimated BMI. CHEMISTRY Calcium Lvl 8.0 8.5 - 10.5 05/11 [place] /2012 [facility] CHEMISTRY AGAP 17.7 10.0 - 05/11 Normal [place] 20.0 [facility] CHEMISTRY BUN 7 7 - 22 05/11 Normal [facility] CHEMISTRY Glucose Lvl 59 70 - 99 05/11 LOW <sup>9</sup>I [place] nterpretive Medical Data: Adult Center reference range values reflect the clinical guidelines
of the [place] [employer]. CHEMISTRY Creatinine 0.6 0.5 - 1.4 05/11 Normal [facility] CHEMISTRY Sodium Lvl 141 135 - 145 05/11 Normal [facility] CHEMISTRY Potassium Lvl 3.7 3.5 - 5.1 05/11 Normal [facility] CHEMISTRY Chloride Lvl 106 95 - 109 05/11 Normal [facility] CHEMISTRY CO2 21 24 - 32 05/11 LOW [facility] CHEMISTRY Methadone Qnt See Note 13 05/11 Normal <sup>13</sup > [facility] (05/11/2013 02:00:00) Result Me dical Comment: Center Methadone: 158 ng/mL
LOS P: 41 ng/mL HEMATOLOGY WBC 17.2 3.7 - 10.4 05/11 [facility] HEMATOLOGY Platelet 203 133 - 450 05/11 Normal [facility] HEMATOLOGY MPV 8.7 7.4 - 10.4 05/11 Normal [facility] HEMATOLOGY MCV 88.4 81.0 - 05/11 Normal [facility] 99.0 [facility] HEMATOLOGY MCH 29.4 27.0 - 05/11 Normal [place] 31.0 [facility] Center HEMATOLOGY RDW 15.3 11.5 - 05/11 [facility] [place] 14.5 Medical Center HEMATOLOGY MCHC 33.2 32.0 - 05/11 Normal [place] 36.0 [facility] Center HEMATOLOGY RBC 3.75 4.20 - 05/11 LOW [place] 5.40 /2012 [facility] HEMATOLOGY Hgb 11.0 12.0 - 05/11 LOW [place] 16.0 /2012 [facility] HEMATOLOGY Hct 33.1 36.0 - 05/11 [facility] [place] 48.0 Medical Center HEMATOLOGY Monocytes 4.4 2.0 - 12.0 05/11 Normal [facility] HEMATOLOGY Segs 77.7 45.0 - 05/11 [facility] [place] 75.0 /2012 [facility] Center HEMATOLOGY Monocytes # 0.8 0.0 - 0.8 05/11 [place] [facility] HEMATOLOGY Segs-Bands # 13.4 1.5 - 8.1 05/11 [place] [facility] HEMATOLOGY Lymphocytes # 2.7 1.0 - 5.5 05/11 [place] [facility] HEMATOLOGY Basophils 0.8 0.0 - 1.0 05/11 Normal [facility] HEMATOLOGY Eosinophils 1.5 0.0 - 4.0 05/11 [place] [facility] HEMATOLOGY Lymphocytes 15.6 20.0 - 05/11 LOW [place] 40.0 Medical Center HEMATOLOGY Basophils # 0.1 0.0 - 0.2 05/11 [place] [facility] HEMATOLOGY Eosinophils # 0.3 0.0 - 0.5 05/11 Normal [place] [facility] BEDSIDE Gluc POC Notify 05/11 NA [facility] GLUCOSE Comment 1 RN/MD /2012 Medical TESTING Center BEDSIDE Gluc POC 79 70 - 99 05/11 Normal <sup>3</sup>I [facility] GLUCOSE nterpretive Medical TESTING Data: Center Upper Reportable Limit: 200 mg/dL. HEMATOLOGY Fibrinogen 814 230 - 510 05/10 [facility] Lvl Medical Center HEMATOLOGY Plt Neut Test negative 05/10 [facility] as Platelet /2012 Medical Neutraliza Center tion procedure HEMATOLOGY Lup Interp Negative 05/10 [facility] for lupus Medical anticoagul Center ant (normal dRVVT, positive hexagonal phospholip id neutraliza tion, and negative Platelet Neutraliza tion procedure) . Thrombin Time is normal (16.7 sec) which rules out heparin as interferen ce substance. CPT: 44920 HEMATOLOGY Hex Phos N Positive Negative 05/10 Normal [facility] (05/10/2013 18:12:00) /2012 Ga dical Center HEMATOLOGY dRVV 1.06 <=1.20 05/10 Normal [facility] HEMATOLOGY AT III Func 70 77 - 140 05/10 LOW [facility] HEMATOLOGY Sed Rate >100 mm/hr 0 - 20 05/10 ABN [facility] *ABN* /2012 Medical (05/10/2013 18:12:00) Ce nter HEMATOLOGY Protein S 35 54 - 137 05/10 LOW [facility] Func [facility] HEMATOLOGY Protein C 68 72 - 147 05/10 LOW [facility] Func [facility] IMMUNOLOGY Cardiolipin 1 05/10 NA <sup>16</sup> [facility] IgA Interpretive Medical Data: Center Reference Ranges for IgA:
0-11 APL Negative
12-20 APL Inconclusive< br/>21-80 APL Low-Med Positive
> 80 APL Strong Positive IMMUNOLOGY Cardiolipin 1 05/10 NA <sup>17</sup> [facility] IgG Interpretive Medical Data: Center Reference Ranges for IgG:
0-14 GPL Negative
15-20 GPL Inconclusive< br/>21-80 GPL Low-Med Positive
> 80 GPL Strong Positive IMMUNOLOGY Cardiolipin 5.2 05/10 NA <sup>18</sup> [facility] IgM Interpretive Medical Data: Center Reference Ranges for IgM:
0-12 .4 MPL Negative
12.5-20 MPL Inconclusive< br/>21-80 MPL Low-Med Positive
> 80 MPL Strong Positive IMMUNOLOGY C4 Complement 40 16 - 47 05/10 [place] [facility] IMMUNOLOGY C3 Complement 152 88 - 201 05/10 Normal [facility] IMMUNOLOGY HIV 1/2 Ab Negative Negative 05/10 NA *NA* Medical (05/10/2013 18:12:00) Ce nter IMMUNOLOGY CRP, High >190.0 05/10 [place] <sup>14</sup> [place] Interpretive Medical Data: Low Center Risk: <1.0 mg/L
Aver age Risk: 1.0 - 3.0 mg/L
High Risk: >3.0 mg/L
Infl ammation: >10.0 mg/L BACTERIAL - U S pneumo Ag Negative Negative 05/10 [place] SEROLOGY (05/10/2013 16:41:00) /2012 edical Center MICRO MISC U Legion Ag Negative 1 Negative 05/10 Normal <sup>1</sup>I [facility] - SEROLOGY (05/10/2013 16:41:00) /2012 nterpre tive Medical Data: This Center kit tests for Legionella pneumophila Serogroup 1 Antigen. BEDSIDE Gluc POC 96 70 - 99 05/10 Normal <sup>4</sup>I [facility] GLUCOSE nterpretive Medical TESTING Data: Center Upper Reportable Limit: 200 mg/dL. BEDSIDE Gluc POC Notify 05/10 [facility] GLUCOSE Comment 1 RN/MD /2012 Medical TESTING Center URINALYSIS UA Renal Epi 8 <=0 05/10 [facility] URINALYSIS UA Mucus Few /LPF None Seen 05/10 [facility] *NA* Medical (05/10/2013 09:50:39) Ce nter URINALYSIS UA RBC <1 0 - 2 05/10 Normal [facility] URINALYSIS UA Sq Epi Few /LPF Few 05/10 NA *NA* Medical (05/10/2013 09:50:39) Ce nter URINALYSIS UA WBC <1 0 - 5 05/10 Normal [facility] URINALYSIS UA Leuk Est Negative Negative 05/10 [place] (05/10/2013 09:50:39) /2012 [facility] URINALYSIS UA Nitrite Negative Negative 05/10 [facility] (05/10/2013 09:50:39) [facility] URINALYSIS UA Blood Negative Negative 05/10 [facility]10[facility] 09[facility]50:39[facility] Glucose Negative mg/dL Negative 05/10 NA [facility] *NA* [facility] (05/10/2013 09:50:39) Ce nter URINALYSIS UA Bili Negative Negative 05/10 NA [facility] *NA* Medical (05/10/2013 09:50:39) Ce nter URINALYSIS UA 0.1 - 1.0 05/10 NA [facility] Urobilinogen [facility] URINALYSIS UA Ketones TR 05/10 NA [facility] URINALYSIS UA Spec Grav 1.006 <=1.030 05/10 Normal [facility] URINALYSIS UA Turbidity Clear Clear 05/10 Normal [facility] (05/10/2013 09:50:39) [facility] URINALYSIS UA Color Light Yellow Yellow 05/10 [place] *NA* Medical (05/10/2013 09:50:39) Ce nter URINALYSIS UA Protein Negative mg/dL Negative 05/10 [facility]10[facility]2013 09:50:39[facility] UA pH 7.5 5.0 - 8.0 05/10 Normal [facility] CHEMISTRY eGFR 87 05/10 NA <sup>7</sup>R esult Medical Comment: The Center eGFR is calculated using the CKD-EPI formula. In most young, healthy individuals the eGFR will be >90 mL/min/1.73m2 . The eGFR declines with age. An eGFR of 60-89 may be normal in some populations, particularly the elderly, for whom the CKD-EPI formula has not been extensively validated. Use of the eGFR is not recommended in the following populations:& lt;br/>
I ndividuals with unstable creatinine concentration s, including patients and those with serious co-morbid conditions.<b r/>
Patie nts with extremes in muscle mass or diet.

The data above are obtained from the National Kidney Disease Education Program (NKDEP) which additionally recommends that when the eGFR is used in patients with extremes of body mass index for purposes of drug dosing, the eGFR should be multiplied by the estimated BMI. CHEMISTRY Sodium Lvl 140 135 - 145 05/10 Normal [facility] CHEMISTRY AGAP 14.6 10.0 - 05/10 Normal [place] 20.0 [facility] CHEMISTRY Calcium Lvl 7.8 8.5 - 10.5 05/10 [place] [facility] CHEMISTRY Chloride Lvl 105 95 - 109 05/10 Normal [facility] CHEMISTRY Potassium Lvl 3.6 3.5 - 5.1 05/10 Normal [place] [facility] CHEMISTRY CO2 24 24 - 32 05/10 Normal [facility] CHEMISTRY Creatinine 0.8 0.5 - 1.4 05/10 Normal [place] L[facility] CHEMISTRY BUN 7 7 - 22 05/10 Normal [facility] CHEMISTRY Glucose Lvl 51 70 - 99 05/10 LOW <sup>10</sup> [place] Interpretive Medical Data: Adult Center reference range values reflect the clinical guidelines
of the [place] [employer]. CHEMISTRY Magnesium Lvl 1.6 1.8 - 2.4 05/10 LOW [place] [facility] CHEMISTRY Phosphorus 2.2 2.5 - 4.5 05/10 LOW [facility] HEMATOLOGY MCH 29.1 27.0 - 05/10 Normal [place] 31.0 Medical Center HEMATOLOGY Hct 33.8 36.0 - 05/10 LOW [place] 48.0 [facility] HEMATOLOGY MCV 89.2 81.0 - 05/10 Normal [place] 99.0 Medical Center HEMATOLOGY Hgb 11.0 12.0 - 05/10 LOW [place] 16.0 [facility] HEMATOLOGY MPV 8.5 7.4 - 10.4 05/10 Normal [facility] HEMATOLOGY Platelet 202 133 - 450 05/10 Normal [facility] HEMATOLOGY RDW 15.1 11.5 - 05/10 HI [place] 14.5 Medical Center HEMATOLOGY MCHC 32.6 32.0 - 05/10 Normal [place] 36.0 [facility] Center HEMATOLOGY RBC 3.79 4.20 - 05/10 LOW [place] 5.40 /2012 Medical Center HEMATOLOGY WBC 22.1 3.7 - 10.4 05/10 HI [place] /2012 Medical Center HEMATOLOGY Basophils # 0.1 0.0 - 0.2 05/10 [place] /2012 [facility] HEMATOLOGY Monocytes # 0.6 0.0 - 0.8 05/10 [place] [facility] HEMATOLOGY Eosinophils # 0.2 0.0 - 0.5 05/10 Normal [place] /2012 [facility] HEMATOLOGY Segs 83.0 45.0 - 05/10 HI [place] 75.0 /2012 Medical Center HEMATOLOGY Lymphocytes # 2.9 1.0 - 5.5 05/10 [place] [facility] HEMATOLOGY Segs-Bands # 18.3 1.5 - 8.1 05/10 HI [place] /2012 [facility] HEMATOLOGY Basophils 0.4 0.0 - 1.0 05/10 Normal [facility] HEMATOLOGY Eosinophils 1.0 0.0 - 4.0 05/10 [place] [facility] HEMATOLOGY Lymphocytes 12.9 20.0 - 05/10 LOW [place] 40.0 /2012 Medical Center HEMATOLOGY Monocytes 2.7 2.0 - 12.0 05/10 Normal [facility] HEMATOLOGY Sed Rate 55 0 - 20 05/09 HI [place] [facility] [place] HEMATOLOGY Fibrinogen 634 230 - 510 05/09 HI [place] Lvl /2012 [facility] IMMUNOLOGY C3 Complement 124 88 - 201 05/09 Normal [place] /2012 [facility] IMMUNOLOGY DNA Ab (DS) Negative Negative 05/09 [place] (05/09/2013 14:56:00) /2012 [facility] IMMUNOLOGY SS-B (La) Ab Negative Negative 05/09 Normal [place] (05/09/2013 14:56:00) [facility] Center IMMUNOLOGY SS-A (Ro) Ab Negative Negative 05/09 Normal [place] (05/09/2013 14:56:00) Ga [facility] Center IMMUNOLOGY CRP, High >190.0 mg/L 15 05/09 Normal <sup>15</sup > [place] Sensitivity (05/09/2013 14:56:00) /2012 Interp retive Medical Data: Low Center Risk: <1.0 mg/L
Aver age Risk: 1.0 - 3.0 mg/L
High Risk: >3.0 mg/L
Infl ammation: >10.0 mg/L IMMUNOLOGY KYLE Negative Negative 05/09 Normal [facility] (05/09/2013 14:56:00) [place] [facility] IMMUNOLOGY C4 Complement 34 16 - 47 05/09 Normal [facility] [place] CHEMISTRY Phosphorus 2.3 2.5 - 4.5 05/09 LOW [facility] CHEMISTRY Magnesium Lvl 1.4 1.8 - 2.4 05/09 LOW [facility] as /2012 [facility] CHEMISTRY Lactic Acid 1.8 0.5 - 2.2 05/[address] [facility] /[facility] Microbiolog Culture: 05/09 [facility] Blood [facility] Microbiolog Culture: 05/09 [facility] Blood [facility] CHEMISTRY LDL 71 <=99 05/09 Normal [facility] CHEMISTRY HDL 36 >=61 05/09 LOW [facility] CHEMISTRY Trig 126 <=149 05/09 Normal [facility] CHEMISTRY Chol 132 <=199 05/09 Normal [facility] CHEMISTRY CHD Risk 3.67 3.90 - 05/09 LOW [facility] 5.80 [facility] CHEMISTRY Hgb A1C 4.9 <=5.6 05/09 Normal [facility] BEDSIDE Gluc POC Notify 05/09 [facility] GLUCOSE Comment 1 RN/ /2012 [facility] TESTING Center CHEMISTRY U Phencyc Scr Negative Negative 05/09 NA [facility] as *NA* /2012 Medical (05/08/2013 19:11:00) Ce nter CHEMISTRY UDS Note See Note 11 05/09 Normal <sup>11</sup> [facility] (05/08/2013 19:11:00) Interpreti ve Medical Data: Drugs Center reported as positive have not been confirmed by a second
method and should be used for medical purposes only. To order
con firmation, contact laboratory.

n ote: Below are cut-off concentration s for all urine drugs of
abuse performed in the laboratory. Some drugs listed in the table
may not be included in this panel.
<b r/>Descriptio n Cut-off concentration
-------- ---
Amphe tamine 1000 ng/mL
Bar biturates 200 ng/mL
Aung zodiazepines 300 ng/mL
Noreen crystal metabolites 300 ng/mL
Opi ates 300 ng/mL
Phe ncyclidine 25 ng/mL
Pro poxyphene 300 ng/mL
Mar ijuana metabolites 50 ng/mL
Met hadone 300 ng/mL
Uri ne alcohol 20 mg/dL CHEMISTRY U Benzodia Positive Negative 05/09 ABN [facility] Scr *ABN* Medical (05/08/2013 19:11:00) Ce nter CHEMISTRY U Cannab Scr Negative Negative 05/09 [facility] [place] *[place] Medical (05/08/2013 19:11:00) Ce nter CHEMISTRY U Cocaine Scr Negative Negative 05/09 [facility] [place] *NA* Medical (05/08/2013 19:11:00) Ce nter CHEMISTRY U Opiate Scr Negative Negative 05/09 [facility] [place] *NA* Medical (05/08/2013 19:11:00) Ce nter CHEMISTRY U Starla Scr Negative Negative 05/09 [facility] *NA* Medical (05/08/2013 19:11:00) Ce nter CHEMISTRY U Amph Scr Negative Negative 05/09 [facility] [place] *NA* Medical (05/08/2013 19:11:00) Ce nter CHEMISTRY AST 54 0 - 37 05/09 [facility] CHEMISTRY Total Protein 5.8 6.4 - 8.4 05/09 LOW [facility] Center CHEMISTRY Bili Total 0.2 0.2 - 1.3 05/09 Normal [facility] CHEMISTRY Albumin Lvl 2.8 3.5 - 5.0 05/09 LOW [facility] CHEMISTRY Alk Phos 95 39 - 136 05/09 Normal [facility] CHEMISTRY ALT 29 0 - 65 05/09 Normal [facility] CHEMISTRY A/G Ratio 0.9 0.7 - 1.6 05/09 Normal [facility] CHEMISTRY B/C Ratio 15 6 - 25 05/09 Normal [facility] CHEMISTRY Globulin 3.0 2.0 - 4.0 05/09 Normal [facility] URINALYSIS UA 0.1 - 1.0 05/09 NA [facility] Urobilinogen /2012 [facility] URINALYSIS UA Turbidity Slight Clear 05/09 ABN ABN* Medical (05/08/2013 19:11:00) Ce nter URINALYSIS UA Spec Grav 1.013 <=1.030 05/09 Normal [facility] URINALYSIS UA Blood Small Negative 05/09 [facility] Medical (05/08/2013 19:11:00) Ce nter URINALYSIS UA Leuk Est Negative Negative 05/09 Normal [facility] [place] [facility] (05/08/2013 19:11:00) Ga dical Center URINALYSIS UA Nitrite Negative Negative 05/09 Normal [facility] (05/08/2013 19:11:00) [place] URINALYSIS UA pH 5.0 5.0 - 8.0 05/09 Normal [facility] URINALYSIS UA Protein 30 mg/dL Negative 05/09 [facility] Medical (05/08/2013 19:11:00) Ce nter URINALYSIS UA Glucose Negative mg/dL [facility] Ce nter URINALYSIS UA Color Yellow Yellow 05/09 NA Medical (05/08/2013 19:11:00) Ce nter URINALYSIS UA Sq Epi Few /LPF Few 05/09 [facility] Medical (05/08/2013 19:11:00) Ce nter URINALYSIS UA RBC 1 0 - 2 05/09 Normal [facility] URINALYSIS UA Ketones Negative mg/dL Negative [facility]09 [facility] (05/08/2013 19:11:00) Ce nter URINALYSIS UA Bili Negative Negative 05/09 NA [facility] *NA Medical (05/08/2013 19:11:00) Ce nter URINALYSIS UA Mucus Few /LPF None [facility] 19:11:00[facility] Ce nter URINALYSIS UA Amorph Occasional /HPF None Seen 05/09 NA [facility] Jaimee *NA Medical (05/08/2013 19:11:00) Ce nter BEDSIDE Comment1 Notify 07/21 NA [facility] GLUCOSE RN/MD /2011 [facility] TESTING Center BEDSIDE Gluc POC 87 70 - 99 07/21 Normal <sup>1</sup>I [facility] GLUCOSE Lifscn nterpretive Medical TESTING Data: Center Upper Reportable Limit: 200 mg/dL. CHEMISTRY LDL 122 0 - 129 07/21 Normal [facility] CHEMISTRY HDL 24 >=35 07/21 LOW 2011 [facility] CHEMISTRY Trig 238 0 - 200 07/21 [facility] CHEMISTRY Chol 194 120 - 200 07/21 Normal 2011 [facility] CHEMISTRY CHD Risk 8.08 3.90 - 12 [facility] 5.80 [facility] CHEMISTRY Phosphorus 3.2 2.5 - 4.5 07/21 Normal [facility] CHEMISTRY Magnesium Lvl 1.9 1.8 - 2.4 07/21 Normal [facility] CHEMISTRY AGAP 14.1 10.0 - 07/21 Normal [facility] 20.0 [facility] CHEMISTRY BUN 9 7 - 22 07/21 Normal [facility] CHEMISTRY Glucose Lvl 77 70 - 99 07/21 Normal <sup>7</sup>I [place] nterpretive Medical Data: Adult Center reference range values reflect the clinical guidelines
of the [place] [employer]. CHEMISTRY eGFR 104 07/21 NA <sup>4</sup>R esult Medical Comment: The Center eGFR is calculated using the CKD-EPI formula. In most young, healthy individuals the eGFR will be >90 mL/min/1.73m2 . The eGFR declines with age. An eGFR of 60-89 may be normal in some populations, particularly the elderly, for whom the CKD-EPI formula has not been extensively validated. Use of the eGFR is not recommended in the following populations:& lt;br/>
I ndividuals with unstable creatinine concentration s, including patients and those with serious co-morbid conditions.<b r/>
Patie nts with extremes in muscle mass or diet.

The data above are obtained from the National Kidney Disease Education Program (NKDEP) which additionally recommends that when the eGFR is used in patients with extremes of body mass index for purposes of drug dosing, the eGFR should be multiplied by the estimated BMI. CHEMISTRY Chloride Lvl 101 95 - 109 07/21 Normal [facility] CHEMISTRY Sodium Lvl 138 135 - 145 07/21 [facility] CHEMISTRY Potassium Lvl 4.1 3.5 - 5.1 07/21 [facility] [place] [facility] CHEMISTRY Creatinine 0.7 0.5 - 1.4 07/[address] [facility] CHEMISTRY CO2 27 24 - 32 07/21 [facility] CHEMISTRY Calcium Lvl 8.0 8.5 - 10.5 07/21 LOW [facility] s [facility] CHEMISTRY Hgb A1C 5.8 07/21 NA <sup>10</sup> Interpretive Medical Data: HbA1C% Center eAG(mg/dL) Interpretatio n
6.0 126 Very good control
6.5 140 Very good control
7.0 154 Good Control
7.5 169 Good Control
8.0 183 Marginal Control, take action to lower
8.5 197 Marginal Control, take action to lower
9.0 212 Poor Control, take action to lower
9.5 226 Poor Control, take action to lower
10. 0 240 Poor Control, take action to lower HEMATOLOGY MPV 6.8 7.4 - 10.4 07/21 LOW [facility] HEMATOLOGY Platelet 539 133 - 450 07/21 HI [facility] HEMATOLOGY MCV 88.7 81.0 - 07/21 Normal [place] 99.0 [facility] HEMATOLOGY MCH 29.4 27.0 - 07/21 [facility] [place] 31.0 [facility] HEMATOLOGY MCHC 33.1 32.0 - 07/21 [facility] [place] 36.0 /2011 Medical Center HEMATOLOGY RDW 15.0 11.5 - 12/04 HI [place] 14.5 /2011 Medical Center HEMATOLOGY Hct 38.4 36.0 - 12 Normal [place] 48.0 /2011 Medical Center HEMATOLOGY RBC 4.34 4.20 - 12/ Normal [place] 5.40 /2011 Medical Center HEMATOLOGY Hgb 12.7 12.0 - 12 Normal [place] 16.0 /2011 Medical Center HEMATOLOGY WBC 11.7 3.7 - 10.4 12/ [facility] HEMATOLOGY Basophils 0.5 0.0 - 1.0 12/ Normal [facility] [place] HEMATOLOGY Segs-Bands # 5.9 1.5 - 8.1 12 Normal [place] [facility] HEMATOLOGY Monocytes 6.0 2.0 - 12.0 12 Normal [facility] HEMATOLOGY Lymphocytes 41.5 20.0 - 12 HI [place] 40.0 Medical Center HEMATOLOGY Eosinophils 1.9 0.0 - 4.0 12 [place] [facility] HEMATOLOGY Segs 50.1 45.0 - 12 Normal [place] 75.0 /2011 Medical Center HEMATOLOGY Monocytes # 0.7 0.0 - 0.8 12/ [place] [facility] HEMATOLOGY Lymphocytes # 4.8 1.0 - 5.5 12 [place] [facility] HEMATOLOGY Eosinophils # 0.2 0.0 - 0.5 07/21 [place] [facility] HEMATOLOGY Basophils # 0.1 0.0 - 0.2 07/21 [place] [facility] Center Microbiolog Culture: 07/21 [facility] y Urine [facility] BEDSIDE Gluc POC 112 70 - 99 07/21 [place] <sup>2</sup>I [facility] GLUCOSE Lifscn nterpretive Medical TESTING Data: Center Upper Reportable Limit: 200 mg/dL. BEDSIDE Comment1 Notify 07/21 [facility] GLUCOSE RN/MD /2011 Medical TESTING Center URINALYSIS UA Ketones TR 07/21 [facility] URINALYSIS UA 0.1 - 1.0 07/21 [facility] Urobilinogen /2011 [facility] URINALYSIS UA Color Yellow Yellow 12/04 NA [facility] Medical (07/20/2012 19:10:00) Ce nter URINALYSIS UA Protein 20 mg/dL Negative 07/21 ABN Medical (07/20/2012 19:10:00) Ce nter URINALYSIS UA pH 6.5 5.0 - 8.0 07/21 Normal [facility] URINALYSIS UA Glucose Negative mg/dL Negative 07/21 NA [facility] Medical (07/20/2012 19:10:00) Ce nter URINALYSIS UA Spec Grav 1.020 <=1.030 07/21 Normal [facility] URINALYSIS UA Turbidity Slight Clear 07/21 ABN Medical (07/20/2012 19:10:00) Ce nter URINALYSIS UA Nitrite Negative Negative 07/21 Normal [facility] (07/20/2012 19:10:00) [facility] URINALYSIS UA Leuk Est Trace Negative 07/21 ABN Medical (07/20/2012 19:10:00) Ce nter URINALYSIS UA Sq Epi Many /LPF Few 07/21 ABN Medical (07/20/2012 19:10:00) Ce nter URINALYSIS UA Blood Small Negative 07/21 [facility] Medical (07/20/2012 19:10:00) Ce nter URINALYSIS UA Bili Negative Negative 07/21 NA Medical (07/20/2012 19:10:00) Ce nter URINALYSIS UA Amorph Occasional /HPF None Seen 07/21 NA [facility] Jaimee * Medical (07/20/2012 19:10:00) Ce nter URINALYSIS UA Mucus Few /LPF None Seen 07/21 [facility] Medical (07/20/2012 19:10:00) Ce nter URINALYSIS UA Bacteria Few /HPF None Seen 07/21 NA [place] [facility] * Medical (07/20/2012 19:10:00) Ce nter URINALYSIS UA RBC 1 0 - 2 07/21 Normal [facility] URINALYSIS UA WBC 6 0 - 5 07/21 HI [facility] URINALYSIS UA Hyal Cast 1 0 - 2 07/21 Normal [facility] BEDSIDE Comment1 Notify 07/20 NA [facility] GLUCOSE RN/MD Medical TESTING Center BEDSIDE Gluc POC 86 70 - 99 07/20 Normal <sup>3</sup>I [facility] GLUCOSE Lifscn nterpretive Medical TESTING Data: Center Upper Reportable Limit: 200 mg/dL. CHEMISTRY AGAP 14.7 10.0 - 07/20 Normal [facility] 20.0 [facility] CHEMISTRY eGFR 88 07/20 NA <sup>5</sup>R esult Medical Comment: The Center eGFR is calculated using the CKD-EPI formula. In most young, healthy individuals the eGFR will be >90 mL/min/1.73m2 . The eGFR declines with age. An eGFR of 60-89 may be normal in some populations, particularly the elderly, for whom the CKD-EPI formula has not been extensively validated. Use of the eGFR is not recommended in the following populations:& lt;br/>
I ndividuals with unstable creatinine concentration s, including patients and those with serious co-morbid conditions.<b r/>
Patie nts with extremes in muscle mass or diet.

The data above are obtained from the National Kidney Disease Education Program (NKDEP) which additionally recommends that when the eGFR is used in patients with extremes of body mass index for purposes of drug dosing, the eGFR should be multiplied by the estimated BMI. CHEMISTRY Glucose Lvl 77 70 - 99 07/20 Normal <sup>8</sup>I [place] nterpretive Medical Data: Adult Center reference range values reflect the clinical guidelines
of the [place] [employer]. CHEMISTRY BUN 13 7 - 22 07/20 Normal [facility] CHEMISTRY Creatinine 0.8 0.5 - 1.4 07/20 Normal [facility] Lvl [facility] CHEMISTRY Sodium Lvl 137 135 - 145 07/20 Normal [facility] CHEMISTRY Potassium Lvl 3.7 3.5 - 5.1 07/20 Normal [place] [facility] CHEMISTRY Chloride Lvl 97 95 - 109 07/20 Normal [facility] CHEMISTRY CO2 29 24 - 32 07/20 Normal [facility] CHEMISTRY Calcium Lvl 8.3 8.5 - 10.5 12 [place] [facility] HEMATOLOGY Monocytes # 0.7 0.0 - 0.8 12 [place] [facility] HEMATOLOGY Lymphocytes # 4.3 1.0 - 5.5 12 [place] [facility] [place] HEMATOLOGY Segs-Bands # 6.9 1.5 - 8.1 12 Normal [place] [facility] HEMATOLOGY Basophils 0.8 0.0 - 1.0 12 Normal [facility] HEMATOLOGY Eosinophils 1.2 0.0 - 4.0 12 [place] [facility] HEMATOLOGY Basophils # 0.1 0.0 - 0.2 07/20 [place] [facility] HEMATOLOGY Eosinophils # 0.1 0.0 - 0.5 07/20 [place] [facility] HEMATOLOGY Monocytes 5.6 2.0 - 12.0 07/20 Normal [facility] HEMATOLOGY Lymphocytes 35.7 20.0 - 12 Normal [place] 40.0 /2011 Medical Center HEMATOLOGY Segs 56.7 45.0 - 12 Normal [place] 75.0 /2011 [facility] Center HEMATOLOGY MCV 88.3 81.0 - 12 Normal [place] 99.0 /2011 [facility] Center HEMATOLOGY Hct 41.1 36.0 - 12 Normal [place] 48.0 /2011 [facility] Center HEMATOLOGY Hgb 13.7 12.0 - 12 Normal [place] 16.0 /2011 Medical Center HEMATOLOGY RBC 4.66 4.20 - 12 Normal [place] 5.40 /2011 Medical Center HEMATOLOGY WBC 12.2 3.7 - 10.4 12 [facility] HEMATOLOGY MPV 6.8 7.4 - 10.4 12 LOW [facility] HEMATOLOGY Platelet 571 133 - 450 12 [facility] HEMATOLOGY RDW 15.6 11.5 - 12 HI [place] 14.5 [facility] [place] HEMATOLOGY MCHC 33.3 32.0 - 12 Normal [place] 36.0 [facility] [place] HEMATOLOGY MCH 29.4 27.0 - 12 Normal [place] 31.0 [facility] BLOOD BANK Antibody Scrn Negative 07/19 Normal [facility] [place] [facility] RESULTS (07/19/2012 07:30:00) [facility] BLOOD BANK ABO/Rh O POS 07/19 Unknown [facility] RESULTS [facility] CHEMISTRY Total CK 62 12 - 191 07/19 Normal [facility] CHEMISTRY eGFR 67 07/19 NA <sup>6</sup>R esult Medical Comment: The Center eGFR is calculated using the CKD-EPI formula. In most young, healthy individuals the eGFR will be >90 mL/min/1.73m2 . The eGFR declines with age. An eGFR of 60-89 may be normal in some populations, particularly the elderly, for whom the CKD-EPI formula has not been extensively validated. Use of the eGFR is not recommended in the following populations:& lt;br/>
I ndividuals with unstable creatinine concentration s, including patients and those with serious co-morbid conditions.<b r/>
Patie nts with extremes in muscle mass or diet.

The data above are obtained from the National Kidney Disease Education Program (NKDEP) which additionally recommends that when the eGFR is used in patients with extremes of body mass index for purposes of drug dosing, the eGFR should be multiplied by the estimated BMI. CHEMISTRY CO2 30 24 - 32 07/19 Normal [facility] CHEMISTRY Calcium Lvl 8.8 8.5 - 10.5 07/19 Normal [facility] CHEMISTRY BUN 12 7 - 22 07/19 Normal [facility] CHEMISTRY Creatinine 1.0 0.5 - 1.4 07/[address] [facility] [facility] CHEMISTRY Glucose Lvl 106 70 - 99 07/19 HI <sup>9</sup>I T ex nterpretive Medical Data: Adult Center reference range values reflect the clinical guidelines
of the [place] [employer]. CHEMISTRY Potassium Lvl 4.1 3.5 - 5.1 07/19 Normal [facility] CHEMISTRY Chloride Lvl 99 95 - 109 07/19 Normal [facility] CHEMISTRY Sodium Lvl 138 135 - 145 07/19 Normal [facility] CHEMISTRY AGAP 13.1 10.0 - 07/19 Normal [facility] 20.0 [facility] CHEMISTRY Troponin-I <0.02 0.00 - 07/19 Normal [facility] 0.40 /2011 [facility] HEMATOLOGY Anisocyte 1+ None Seen 07/19 ABN [facility] *ABN* Medical (07/19/2012 07:30:00) Ce nter HEMATOLOGY Atypical 0.0 <=0.0 07/19 Normal [facility] Lymphs [facility] HEMATOLOGY Large Plt Slight None Seen 07/19 ABN [facility] *ABN* Medical (07/19/2012 07:30:00) Ce nter HEMATOLOGY Polychrom Slight None Seen 07/19 Normal [facility] (07/19/2012 07:30:00) /[facility] HEMAT[facility]Y Bands 0.0 0.0 - 11.0 12 Normal [facility] HEMATOLOGY Monocytes 4.0 2.0 - 12.0 07/19 Normal [facility] HEMATOLOGY Lymphocytes 30.0 20.0 - 07/19 Normal [place] 40.0 [facility] HEMATOLOGY Eosinophils 1.0 0.0 - 4.0 07/19 [place] [facility] HEMATOLOGY Lymphocytes # 5.4 1.0 - 5.5 07/19 Normal [place] [facility] HEMATOLOGY Segs-Bands # 11.8 1.5 - 8.1 07/19 HI [place] as [facility] HEMATOLOGY Eosinophils # 0.2 0.0 - 0.5 07/19 [place] [facility] HEMATOLOGY Monocytes # 0.7 0.0 - 0.8 07/19 [place] [facility] HEMATOLOGY Segs 65.0 45.0 - 07/19 Normal [facility] 75.0 [facility] HEMATOLOGY INR 0.97 0.85 - 07/19 [place]sup[place] 1.17 Interpretive Medical Data: Center RECOMMENDED RANGES FOR PROTIME INR:
2.0-3.0 for most medical and surgical thromboemboli c states.
2.5-3.5 for artificial heart valves and recurrent embolism.<br/ >
INR SHOULD BE USED ONLY FOR PATIENTS ON STABLE ANTICOAGULANT THERAPY. HEMATOLOGY PT 13.1 12.0 - 12 Normal [place] 14.7 [facility] HEMATOLOGY Estimated % 4.1 0.0 - 7.5 07/19 [place] [facility] HEMATOLOGY Rapid TEG Citrated 07/19 NA [facility] Sample Type [facility] [place] HEMATOLOGY ACT (TEG) 113 86 - 118 07/19 Normal [facility] HEMATOLOGY [place] 0.6 07/19 NA [facility] HEMATOLOGY Angle 82 64 - 80 07/19 [facility] HEMATOLOGY Max Amp 81 52 - 71 12 [facility] HEMATOLOGY K-time 0.8 0.6 - 2.3 07/19 Normal [facility] HEMATOLOGY G-value 20.9 5.0 - 11.6 12 [facility] HEMATOLOGY R-time 0.7 0.4 - 0.7 07/19 Normal [facility] HEMATOLOGY PTT 32.1 22.9 - 12 [place]sup[place] 35.8 /2011 Interpretive Medical Data: [facility] Therapeutic Range: 57 - 92 [place] HEMATOLOGY Hgb 15.0 12.0 - 12 Normal [facility] 16.0 /2011 [facility] HEMATOLOGY RBC 5.06 4.20 - 12 Normal [facility] 5.40 /2011 [facility] HEMATOLOGY RDW 14.8 11.5 - 12 [facility] 14.5 /2011 [facility] HEMATOLOGY MCHC 33.3 32.0 - 12/ Normal [facility] 36.0 /2011 [facility] HEMATOLOGY WBC 18.1 3.7 - 10.4 12 [facility] HEMATOLOGY Hct 44.9 36.0 - 12/ Normal [facility] 48.0 /2011 [facility] HEMATOLOGY MPV 7.1 7.4 - 10.4 12 LOW [facility] HEMATOLOGY MCH 29.5 27.0 - 12/ Normal [facility] 31.0 /2011 [facility] HEMATOLOGY MCV 88.8 81.0 - 12/ Normal [facility] 99.0 /2011 [facility] HEMATOLOGY Platelet 634 133 - 450 12 [facility] Pathology Reports No Data Provided for This Section Diagnostic Reports Report Value Date Source Brain wo contrast MRI EXAM: MRI BRAIN WITHOUT CONTRAST 9 [facility] DATE: 03/10/2019 14:02 CDT Center INDICATION: - dysarthria and imbalance COMPARISON: MRI brain without contrast 9. TECHNIQUE: Brain stroke prot ocol including axial DWI, axial FLAIR, and axial gradient echo images. High-resolution images through the brainstem were also obtained. IV contrast: None. FINDINGS: There is no restricted diffu matthew to indicate acute infarct. No recent intracranial hemorrhage. Again noted chronic infarct in the right MCA distribution involving the lateral middle frontal gyrus and lateral perirolandic region extending inferiorly to the level of the insular cortex. Associated e ncephalomalacia, gliosis as well as susceptibility likely representing sequela of remote laminar necrosis or petechial hemorrhage. Mild expected dilatation of the right lateral ventricle. Generalized ce rebral volume loss with comp ensatory enlargement of ventricles and sulci. No hydrocephalus. A chronic lacunar infarct is seen in the right globus pallidus. Wallerian degeneration is seen in the right c erebral peduncle. The basal cisterns are patent. The major intracranial flow voids are preserved IMPRESSION: No acute infarction. No significant interval myra nge. Chronic right MCA territory infarct. Chronic right lentiform nucleus lacunar infarct Chest Pulmonary EXAM: CTA CHEST WITH CONTRAST 03/09/2019 [facility] DATE: 03/09/2019 18:09 CDT Center INDICATION: - SOB, chest pain COMPARISON: CT chest 10/26/2014 TECHNIQUE: Volumetric CT of the chest is acquired during pulmonary arterial phase following intravenous administration of contrast. Axial, sagittal, coronal, and oblique MIP reconstructions are created at the acquisition workstation. IV Contrast: 99.5 mL Omnipaque 350 DLP: 1615 mGy-cm FINDINGS: Lines and tubes: None. Lower neck: Unremarkable. Axilla: Clear. Airway: Clear. Lungs and pleura: No pleura l effusion or pneumothorax. Subsegmental atelectasis in the right middle lobe. Mild bilateral dependent atelectatic changes are noted. Two 5 mm nodules are seen in the right lung (ser ies 4, images 36 and 108). Mediastinum, james and intrathoracic lymph nodes: Normal. Heart, pericardium and great vessels: Pulmonary emboli: No central or saddle pulmonary embolus. Limited evaluation for peripheral pulmonary emboli. Pulmonary trunk: 2.7 cm Ascending aorta: 3.1 cm Heart: Normal. No right hear t strain. RV:LV ratio is less than 1 (Normal <1). No coronary calcifications identified. Pericardium: No pericardial fluid. Upper abdomen: Heterogenous texture of the liver is noted which may represent underlying hepatic steatosis. Status post cholecystectomy with postsurgical changes. Bones: No acute abnormality. Soft tissues: Normal. IMPRESSION: 1. No pulmonary embolism. No CT evidence of rig ht heart strain. 2. Two solid 5 mm nodules a re seen in the right lung, indeterminate by CT criteria. It is difficult to compare to a previous chest CT done in 2015 due to motion degradation in the previous study. Follow-up recommendation as below. 3. No interstitial or alveolar consolidation. 4. Subsegmental atelectasis in the right middle lobe. RECOMMENDATION: If there is history of primary neoplastic process, chest CT follow-up in 3 months is recommended. If there is no history of primary neoplastic process, follow-up per Fleischner criteria: The [employer] Society guide lines for nodules measuring up to 6 mm in size is as follows: If this patient is a low risk patient (nonsmoker and no known tumor or risk factors thereof), then no further fo llow-up is needed. However, in a high risk patient (history of smoking or other known risk factors), then a repeat chest CT is optional in 12 months and, if unchanged, then no further follow-up is needed Brain wo contrast MRI EXAM: MRI BRAIN WITHOUT CONTRAST 9 [facility] DATE: 03/09/2019 9:46 PM CDT [facility] INDICATION: - new slurred speech, L facial droo p COMPARISON: Head CT 03/09/2019 TECHNIQUE: Multiplanar, mult isequence MR images of the brain are performed prior to contrast administration. CONTRAST: None FINDINGS: Diffusion-weighted images de monstrate increased signal in the subcortical white matter corresponding with the region of the patient's prior right MCA infarct. This does not, however, demonstrat e a lower ADC value and, the refore, is indicative of T2 shine through effect. The infarct, involving the lateral middle frontal gyrus and lateral perirolandic region and extending inferiorly down to the level of the posterior insu lar cortex demonstrates significant T2 signal elevation resulting from gliosis within the subadjacent white matter and cystic encephalomalacia of the overlying cortex. A mode rate degree of T2*dephasing of the cortex is noted in the upper portion of the infarct indicative of prior petechial hemorrhage. Generalized volume loss of the brain is present, advanced for age. A remote lacunar infarct is identified in the ri ght globus pallidus. Incidental imaging of the or bits, paranasal sinuses, skull, and skull base demonstrates no interval change. Appropriate flow-voids are present in the vessels at the base of the brain. IMPRESSION: MRI examination of the brain is unch anged. 1. No acute infarction, intracranial hemorrhage or mass. 2. Encephalomalacia in the right MCA territory demonstrating evidence of remote petechial hemorrhage.. 3. Remote lacunar infarct in the right lentifor m nucleus. Spine lumbar puncture EXAM: LUMBAR PUNCTURE UNDER FLUOROSCOP IC GUIDANCE 03/17/2015 [facility] DX [place] DATE: Mar 17, 2015 03:30:39 PM INDICATION: Altered level of consciousness TECHNIQUE: The procedure was discussed in detail with the patient's for telephonic consent including the indication for a lumbar puncture, the benefits, risks, alternatives, and potential complica tions. The patient was made aware of the risks including but not limited to pain, bleeding, infection, a small risk of injury to the lower cord or nerve roots in the lumbar spine and adjacent/surroundin g structures, and specifical ly CSF leak and post dural puncture headaches. The patient wished to proceed and informed consent was obtained. Witnessed, written consent was provided by the the patient. Up on arrival at the fluoroscop y suite, a brief 'time-out' was performed under the universal protocol with 2 patient identifiers establishing the correct patient, verifying the correct procedure. The chart was reviewed and the appropriateness of the req uested procedure verified. The patient was placed in th e prone oblique position on the fluoroscopy table. The lower back was prepped and draped in the usual sterile fashion after fluoroscopic localization of an appropriate punctu re site. 1% local lidocaine with sodium bicarbonate subcutaneous anesthesia was then administered. With fluoroscopic guidance (employing low-dose radiation), under sterile conditions, lumbar puncture wa s undertaken at the level of L3-L4 using a 22 G Quincke spinal needle via an interlaminar approach. Satisfactory needle position within the subarachnoid space was confirmed by free-flowing CSF. Opening pressure measured was measur ed. Total of 9 cc clear, colorless CSF samples were obtained and subsequently sent for the examinations to be specified by the referring team. The patient tolerated the proce dure very well and left the radiology department without apparent complication. Postprocedure instructions, specifically on how to avoid post lumbar puncture headaches were provided. FINDINGS: ACCESS: L3, 22G, 5' long Quincke spinal needle OPENING PRESSURE: 14 cm H2O in prone position with corrected pressure of 9 cm H20 in . CSF OBTAINED: Approximately 9 ml clear CSF. BLOOD LOSS: None. COMPLICATIONS: None. FLUOROSCOPY TIME: 6 seconds with a DAP of 0.1904 Gycm2 IMPRESSION: 1. Successful fluoroscopic guided lumbar punctur e. 2. Normal opening pressure. 3. Total of 9 cc clear CSF was obtained. Procedure performed by Adiel Burton MD, Faculty Neuroradiologist, assisted by Carlin Garcia D.O. Chest 1view DX CHEST ONE VIEW, OCTOBER 30, 2014 AT 1:40 A.M. 10/16 [facility] HISTORY: 49-year-old female with tube placement/ removal/reposition. FINDINGS: Comparison is made to yesterday liset lofton. The cardiomediastinal silhou ette is stable. The lungs are clear. The costophrenic sulci are sharp, without effusions. The patient has been extubat ed. The nasogastric tube has been removed. Other life support lines and tubes remain in place. IMPRESSION: The lungs are clear. Chest 1view DX CHEST ONE VIEW, OCTOBER 29, 2014 AT 2:00 A.M. 10/16 [facility] HISTORY: 49-year-old female with abnormal chest sounds. FINDINGS: Comparison is made to October 28. The cardiomediastinal silhou ette is stable. Life support lines and tubes remain in place. Subsegmental atelectasis is seen in the left lower lobe. The costophrenic sulci are sharp, without effusions. IMPRESSION: Left lower lobe subsegmental atelect asis. Brain wo contrast MRI EXAM: MRI BRAIN WITHOUT CONTRAST 5 [facility] DATE: 10/28/2014 at 2153 hours INDICATION: Altered level of consciousness TECHNIQUE: Multiplanar, multisequence MRI of the brain without contrast. COMPARISON: CT brain 10/26/2014, MRI brain 014 FINDINGS: Evaluation limited by motion. No restricted diffusion to s uggest acute or subacute infarction. Chronic lacunar infarct in the right basal ganglia. Encephalomalacia and gliosis in the right MCA territory is redemonstrated. Associate d passive dilatation of the right lateral ventricle. There is no hydrocephalus. Mild diffuse parenchymal volume loss. Wallerian degeneration of the right cerebral peduncle. No intra-axial mass or mass effect or abnormal extra-axial collection. The larger intracranial vascular flow-voids are preserved. Incidental note of partially empty sella without herniation of the optic chiasm. Partial opacification of the mastoid air cells bilaterally. There is normal bone marrow signal intensity within the calvarium and skullbase. IMPRESSION: 1. No acute or subacute infarct. 2. Encephalomalacia and glio sis of right MCA territory with chronic right basal ganglia lacunar infarct. Chest 1view DX Chest one view, October 28, 2014 AT 1:19 a.m. 10/16 [facility] HISTORY: 49-year-old female with tube placement/ removal/reposition. FINDINGS: Comparison is made to yesterday. The cardiomediastinal silhou ette is stable. The left pleural effusion layers posteriorly. There is a left retrocardiac opacity which may be due to a layering left pleural effusion and/or a left lower lo be air space opacity such as pneumonia or atelectasis. Left upper lobe and right lung are clear. A Dobbhoff feeding tube has been inserted. Other life support lines and tubes remain in place. IMPRESSION: 1. A left pleural effusion layers posteriorly. 2. There is a left retrocard iac opacity which may be due to a layering left pleural effusion and/or a left lower lobe air space opacity such as pneumonia or atelectasis. Abdomen AP DX INDICATION: Dobhoff tube placement. 10/27/2014 [facility] EXAM: ABDOMEN XR, 1 view. TECHNIQUE: Limited single frontal view of the a bdomen. DISCUSSION: Tip of the Dobbhoff tube is in the pylorus region. The nasogastric tube is present with the side-port in the gastric fundus. The underlying bowel gas pattern is unremarkable. Visualized osseous structures are unremarkable. IMPRESSION: Tip of the Dobhoff tube is in the py lorus region. Chest 1view DX Chest one view, October 27, 2014 a 1:15 a.m. 10/27 [facility] HISTORY: 49-year-old female with abnormal chest sounds. FINDINGS: Comparison is made to October 26. The cardiomediastinal silhou ette is stable. Life support lines and tubes remain in place. Mixed interstitial and alveolar edema has improved. There is a left retrocardiac opacity which may be due to a l ayering left pleural effusio n and/or a left lower lobe air space opacity such as pneumonia or atelectasis. Platelike atelectasis is seen in the right lower lobe. No definite pleural effusions are identified. IMPRESSION: 1. Mixed interstitial and alveolar edema has imp roved since yesterday. 2. There is a left retrocard iac opacity which may be due to a layering left pleural effusion and/or a left lower lobe air space opacity such as pneumonia or atelectasis. 3. Right lower lobe platelike atelectasis. Chest w contrast CT EXAM: CT CHEST WITH IV CONTRAST 10/26/2014 [facility] DATE: Oct 26, 2014 03:26:53 PM INDICATION: Tachycardia. COMPARISON: Chest 1 view 10/26/2014. TECHNIQUE: Volumetric postco ntrast CT images of the chest with axial, coronal, and sagittal reconstructions. DISCUSSION: MEDIASTINUM: Thoracic aorta and great vessels are unremarkable. Main pulmonary arteries are within normal limits. Heart is unremarkable. No pericardial effusion. Bilateral IJ catheters the tips in the u pper SVC. No lymphadenopathy. NG tube courses be low the diaphragm. LUNGS/PLEURA: Heterogeneous and irregular dependent bilateral lower lobe consolidation. Small bilateral pleural effusions. Mild thickening of the interlobular septa in the upper lobes. No pneumothorax. Endotracheal tube 2.1 cm the radha. BONES/SOFT TISSUES: No acute bony abnormality. Visualized thyroid is normal. Subcutaneous soft tissues are unremarkable. UPPER ABDOMEN: Please see concurrently performed CT abdomen. IMPRESSION: 1. Bilateral lower lobe cons olidation, with heterogeneous areas consistent with infection or aspiration. 2. Small bilateral pleural effusions. 3. Thickening of the upper l obe interlobular septa could be from subsegmental atelectasis or interstitial edema component. Brain wo contrast CT EXAMINATION: CT head without contrast. 10/16 [facility] DATE: 10/26/2014. INDICATION: Altered level of consciousness. DISCUSSION: Noncontrast images of the head are compared to a study dated 10/25/2014. Over the interval, there has been no important change area no edema, hemorrhage, or other acute finding is noted. Chronic ischemic encephaloma lacia changes are again noted in the right frontoparietal junction volume loss in the entire right hemisphere. The paranasal sinuses and skull base are unremar kable IMPRESSION: No acute abnormality. Chronic right MCA encephalomalacia Abdomen/Pelvis CTA EXAM: CTA ABDOMEN/PELVIS WITH INTRAVENO US CONTRAST 10/26/2014 [facility] DATE: October 26, 2014 INDICATION: Abdominal pain, acute Additional information: 49-y ear-old female with history of antiphospholipid syndrome and sepsis. Concern for mesenteric ischemia. COMPARISON: No prior abdominal CT for comparison ; CT chest on October 26, 2014 TECHNIQUE: Helical acquisiti on of the abdomen and pelvis was obtained from the lung bases to the symphysis pubis without the administration of oral contrast, and after uneventful intravenous administrat ion of contrast in the arter ial phase of contrast enhancement. Axial, sagittal and coronal images were interpreted. FINDINGS: Please refer to dedicated CT of the chest from the same day for findings in the chest. The liver, bile ducts, pancr eas, and adrenals show no significant abnormalities. The gallbladder is surgically absent. The spleen is small and atrophic. The stomach is unremarkable. Visualized small bowel and colon have normal caliber. There is no thickening of the bowel wall to suggest ischemia. There is no occlusion of the celiac axis or superior and inferior mesenteric arteries . There is narrowing of the celiac artery near its origin with dilation immediately distal to the origin best appreciated on sagittal views. The appendix is not definite ly visualized and there are no secondary signs of inflammation in the right lower quadrant. No free fluid or free air is demonstrated. Mild atherosclerotic calcifi cations of the aorta are noted. There is no aortic dissection or aneurysm. The kidneys demonstrate norm al concentration of contrast without demonstration of a focal lesion. The urinary bladder is decompressed by a Castillo catheter. The uterus is not definitely visualized which can be correlated with history of hysterectomy. The aorta and IVC are normal in caliber. Abdominal and pelvic lymph nodes are unremarkable. No acute osseous or soft tissue abnormalities ar e demonstrated. IMPRESSION: 1. No evidence of aortic dis section/aneurysm or occlusion of the celiac axis or superior and inferior mesenteric arteries. 2. No evidence of bowel ischemia. 3. Small, atrophic spleen. 4. Mild narrowing of the shannan iac artery near its origin with dilation immediately distal to the origin. Recommend clinical correlation for median arcuate ligament syndrome. 5. Please refer to dedicated CT of the chest fro m the same day. Chest 1view DX PORTABLE CHEST 2014-10-26 11:56:00 10/26/2014 [facility] COMPARISON: Same day at 10:00 a.m. CLINICAL INDICATION: Tube placement/removal/repo sition IMPRESSION: Endotracheal tube is seen 4 cm above the radha. Other stable life support lines and tubes. Stable enlarged cardiac silhouette. Diffuse prominence of the in terstitial markings could be from interstitial edema. Right infra/perihilar opacit y could be from infection, aspiration or other airspace process. Retrocardiac subsegmental atelectasis. Chest 1view DX Portable ap semierect chest 10/26/2014 10/26/2014 [facility] HISTORY: Central line placement. Comparison is m vitaliy with November 13, 2013. FINDINGS: The patient has a new left jugular central line with its tip in the superior vena cava. She has a new right jugular central line with its tip also in the superior vena cava. Cardiomediastinal silhouette is prominent. Cos tophrenic sulci are sharp. There is platelike atelectasis at both lung bases. Otherwise, the lungs are clear. Conclusion: Bilateral jugular central lines as d escribed above. Brain wo contrast MRI EXAM: MRI OF THE BRAIN WITHOUT CONTRAST [facility] DATE:Nov 13, 2013 08:22:00 AM CLINICAL HISTORY: Weakness COMPARISON: Brain CT dated 11/13/2013 TECHNIQUE : Multiplanar imaging of the brain was obtained without contrast. FINDINGS: A few punctate foci of high T2 signal in in the DWI and T2 weighted images, not clearly identified in the FLAIR, are demonstrated in the superior margin of the pre-existing right MCA infarct, without si gnal dropout in the ADC map. These correspond to areas of T2 shine through at the edge of the infarct, without signs of acute ischemia. There is wallerian degeneration in the right cerebral peduncle. No hemosiderin deposits are id entified in the gradient echo images. The ventricles and sulci are minimally prominent. The vascular flow-voids are normal. IMPRESSION: Encephalomalacia in the righ t MCA territory in the area of known infarct in the prior MRI on May 09, 2013. No signs of acute infarct or hemorrhage. Chest 1view EXAM: CHEST 1 VIEW 11/13/2013 [facility] DATE: Nov 13, 2013 04:17:00 AM INDICATION: CVA/TIA COMPARISON: Prior study dated 05/08/2013 TECHNIQUE: Single portable radiograph of the [facility] st FINDINGS: The cardiac silho uette is unremarkable. The lungs are clear bilaterally. The costophrenic sulci are clear and well demarcated. The osseous structures and soft tissues are unremarkable. IMPRESSION: No radiographic evidence of an acut e cardiopulmonary process. Extremity lower VENOUS DOPPLER ULTRASOUND BILATERAL LOWER EXTREM ITY: 05/10/2013 [facility] venous doppler bilat Center US CLINICAL INDICATION: Pain and swelling. TECHNIQUE: The veins of the bilateral lower extremities were evaluated with grayscale, color-flow and spectral Doppler ultrasound. FINDINGS: The common femoral , superficial femoral, and popliteal veins demonstrate normal compressibility and color Doppler signal. IMPRESSION: Negative for DVT bilaterally. Pelvis w/wo contrast EXAM: MRV PELVIS WITHOUT AND WITH CONTRAST 05/10/2013 [facility] DATE: 05/10/2013. INDICATION: 47-year-old fema le with recent right MCA territory infarct. Echocardiogram demonstrated a patent foramen ovale. Evaluate for occult pelvic deep venous thrombosis. ADDITIONAL INFORMATION: None. COMPARISON: None. TECHNIQUE: Pelvic Venogram P rotocol: Multiplanar images of the pelvis were obtained in multiple sequences, with intravenous administration administration of 11 ml Ablavar intravenous contrast. Axial,sag ittal, coronal delayed imagi ng and maximum intensity projection (MIP) images were interpreted. FINDINGS: A central venous catheter is present in the right femoral vein extending into the right external iliac vein. Otherwise there is no intraluminal filling defect seen in the common femoral veins, external, internal and common iliac v eins and the visualized inferior vena cava. There are no venous occlusions or collaterals identified. On arterial phase imaging, t he bilateral renal arteries, infrarenal abdominal aorta, and iliac arteries are visualized and are patent without significant stenosis. There are postsurgical ordonez es of hysterectomy. Trace free intraperitoneal fluid is present. The visualized bowel is normal. The visualized m arrow signal is normal. IMPRESSION: 1. No evidence of pelvic deep venous thrombosis. 2. Right femoral central venous catheter in plac e. 3. Postoperative changes of hysterectomy. 4. Trace free intraperitoneal fluid is nonspecif ic. Brain wo contrast CT CT SCAN OF THE BRAIN 05/10/2013 [facility] DATE: 05/10/2013 at 1:56 a.m. Comparison studies: MRI 05/09/2013, CT brain 05/08. CLINICAL INFORMATION: Hemiparesis TECHNIQUE: Routine axial im ages of the brain were obtained in the unenhanced mode. FINDINGS: The brain is morphologically normal. There has been further evolutionary change of the infarct within the anterior division of the right middle cerebral artery territory. Hyperdensity is noted within th e right insula corresponding to the foci of magnetic susceptibility noted on MRI scanning consistent with mild hemorrhagic conversion. There no new infarcts or hemorrhages. There are no mass lesions or extra-axial collect ions. There are no acute bony abnormalities. The calv arium is intact. IMPRESSION: 1. Evolving right middle cer ebral artery anterior division territory infarct with petechial hemorrhage within the right insula, unchanged from MRI study of the prior day. Head/Neck CTA EXAM: HEAD AND NECK CTA 05/09/2013 [facility] DATE: May 09, 2013 12:30:00 PM CLINICAL HISTORY: Weakness TECHNIQUE: Thin collimation axial dynamic postcontrast images were obtained from the thoracic inlet to the cranial vertex for the purposes of evaluating the vascular structures. Reformatted three dimens ional maximum intensity pixe l (MIP) images in the coronal, sagittal and axial plane were included for interpretation. 85 C of Omnipaque were administered. FINDINGS: Evolving ischemic changes in the right MCA hosea tory are demonstrated. The origin of the brachiocep halic, left carotid and left subclavian arteries are normal. Noncalcified atherosclerotic plaques at the right carotid bifurcation are identified There is no flow limiting st enosis by NASCETcriteria. Th e branches of the anterior and middle cerebral arteries are normal bilaterally. Both vertebral arteries have normal origin and trajectory. The basilar artery, cerebellar branches and posterior cerebral arteries are normal. There is no aneurysm or high flow vascular malfo rmation. The deep cerebral veins and major venous sinuses are patent. IMPRESSION: 1. Atherosclerosis without f low limiting stenosis at the right carotid bifurcation. 2. The intracranial branches are patent. 3. Evolving areas of infarction in the right MCA territory. All quantitative and qualita tive assessments of carotid bifurcation and proximal internal carotid artery stenosis are made at referencing the distal internal carotid artery. Brain wo contrast MRI EXAM: MRI brain without contrast. 05/09/20 13 [facility] INDICATION: Facial numbness. COMPARISON: MRI July 19, 2012. CT April 192012 TECHNIQUE: Multiecho multipl ramesh MR sequences of the brain were obtained without gadolinium. DISCUSSION: Restricted diffu matthew throughout the right MCA territory involving the right temporal, occipital lobes, insula, frontal and parietal lobes extending to the pre- and postcentral gyri. Areas of hemorrhagic transformation in the right insula and within the right temporal lobe are present. Local mass effect without midline shift or transtentorial herniation. No hydrocephalus. IMPRESSION: Recent right MCA territory i nfarction with hemorrhagic changes without subfalcine or transtentorial herniation. Chest 2 views CHEST 2 VIEWS dated 2013-05-09 00:05:00 05/08/20 13 [facility] COMPARISON: Same day at 9:08 a.m. CLINICAL INDICATION: Shortness of Breath FINDINGS: Frontal and later al chest radiographs are submitted for interpretation. Lung volumes are low. New ill-defined opacities within left lung and right upper lobe could represent infection. Edema would be unlikely. No pleural effusions or pneum othorax. CONCLUSION: New ill-defined opacities w ithin lungs could represent infection. Consultation Notes No Data Provided for This Section Discharge Summaries No Data Provided for This Section History and Physicals No Data Provided for This Section Vital Signs Vital Sign Value Date Comments Source Systolic (mm Hg) 133 03/13/2019 [facility] Diastolic (mm Hg) 83 03/13/2019 [facility] Temperature Oral (F) 97.0 F 03/13/2019 [facility] Respitory Rate 14 03/13/2019 [facility] Heart Rate 98 03/12/2019 [facility] Respitory Rate 18 03/12/2019 [facility] Systolic (mm Hg) 134 03/12/2019 [facility] Diastolic (mm Hg) 83 03/12/2019 [facility] Heart Rate 95 03/12/2019 [facility] Systolic (mm Hg) 147 03/12/2019 [facility] Diastolic (mm Hg) 92 03/12/2019 [facility] Temperature Oral (F) 97.3 F 03/12/2019 [facility] Respitory Rate 18 03/12/2019 [facility] Heart Rate 98 03/12/2019 [facility] Temperature Oral (F) 97.3 F 03/12/2019 [facility] Weight 99.318 03/10/2019 [facility] Weight 97.727 03/10/2019 [facility] Height 160.02 cm 03/10/2019 [facility] BMI Calculated 38.17 03/10/2019 [facility] Weight 97.5 03/09/2019 [facility] BMI Calculated 32.68 03/09/2019 [facility] Height 172.72 cm 03/09/2019 [facility] Temperature Oral (F) 97.5 F 03/22/2015 [facility] Heart Rate 70 03/22/2015 [facility] Respitory Rate 17 03/22/2015 [facility] Systolic (mm Hg) 102 03/22/2015 [facility] Diastolic (mm Hg) 64 03/22/2015 [facility] Heart Rate 69 03/22/2015 [facility] Respitory Rate 17 03/22/2015 [facility] Temperature Oral (F) 97.4 F 03/22/2015 [facility] Systolic (mm Hg) 134 03/22/2015 [facility] Diastolic (mm Hg) 79 03/22/2015 [facility] Systolic (mm Hg) 133 03/22/2015 [facility] Diastolic (mm Hg) 84 03/22/2015 [facility] Heart Rate 69 03/22/2015 [facility] Temperature Oral (F) 97.8 F 03/22/2015 [facility] Respitory Rate 17 03/22/2015 [facility] Weight 110.3 03/17/2015 [facility] Height 160.02 cm 03/17/2015 [facility] BMI Calculated 43.08 03/17/2015 [facility] Temperature Oral (F) 98.1 F 11/01/2014 [facility] Heart Rate 86 11/01/2014 [facility] Respitory Rate 18 11/01/2014 [facility] Systolic (mm Hg) 126 11/01/2014 [facility] Diastolic (mm Hg) 77 11/01/[address] [facility] Temperature Oral (F) 98.6 F 10/31/2014 [facility] Heart Rate 83 10/31/2014 [facility] Respitory Rate 18 10/31/2014 [facility] Systolic (mm Hg) 121 10/31/2014 [facility] Diastolic (mm Hg) 85 10/31/2014 [facility] Temperature Oral (F) 98.2 F 10/31/2014 [facility] Respitory Rate 18 10/31/2014 [facility] Systolic (mm Hg) 140 10/31/2014 [facility] Diastolic (mm Hg) 86 10/31/2014 [facility] Heart Rate 68 10/31/2014 [facility] Weight 110.3 10/26/2014 [facility] BMI Calculated 43.08 10/26/2014 [facility] Height 160.02 cm 10/26/2014 [facility] Diastolic (mm Hg) 77 11/14/2013 [facility] Heart Rate 96 11/14/2013 [facility] Systolic (mm Hg) 129 11/14/2013 [facility] Respitory Rate 20 11/14/2013 [facility] Temperature Oral (F) 98.3 F 11/14/2013 [facility] Heart Rate 90 11/14/2013 [facility] Respitory Rate 20 11/14/2013 [facility] Temperature Oral (F) 98.0 F 11/14/2013 [facility] Systolic (mm Hg) 132 11/14/2013 [facility] Diastolic (mm Hg) 84 11/14/2013 [facility] Diastolic (mm Hg) 75 11/14/2013 [facility] Systolic (mm Hg) 155 11/14/2013 [facility] Temperature Oral (F) 97.4 F 11/14/2013 [facility] Respitory Rate 17 11/14/2013 [facility] Height 162.56 cm 11/13/2013 [facility] Weight 96.364 11/13/2013 [facility] BMI Calculated 36.47 11/13/2013 [facility] BMI Calculated 37.63 11/13/2013 [facility] Height 160.02 cm 11/13/2013 [facility] Weight 96.364 11/13/2013 [facility] Heart Rate 99 11/13/2013 [facility] Heart Rate 62 05/12/2013 [facility] Diastolic (mm Hg) 90 05/12/2013 [facility] Systolic (mm Hg) 158 05/12/2013 [facility] Respitory Rate 16 05/12/2013 [facility] Diastolic (mm Hg) 90 05/12/2013 [facility] Systolic (mm Hg) 168 05/12/2013 [facility] Respitory Rate 19 05/12/2013 [facility] Heart Rate 77 05/12/2013 [facility] Temperature Oral (F) 99.1 F 05/12/2013 [facility] Diastolic (mm Hg) 97 05/12/2013 [facility] Systolic (mm Hg) 156 05/12/2013 [facility] Respitory Rate 20 05/12/2013 [facility] Heart Rate 69 05/12/2013 [facility] Temperature Oral (F) 99.8 F 05/12/2013 [facility] Temperature Oral (F) 99.8 F 05/12/2013 [facility] Height 160.02 cm 05/09/2013 [facility] Weight 98.182 05/09/2013 [facility] Respitory Rate 18 07/22/2012 [facility] Systolic (mm Hg) 115 07/22/2012 [facility] Diastolic (mm Hg) 62 07/22/2012 [facility] Temperature Oral (F) 98.6 F 07/22/2012 [facility] Heart Rate 65 07/22/2012 [facility] Diastolic (mm Hg) 61 07/21/2012 [facility] Systolic (mm Hg) 96 07/21/2012 [facility] Temperature Oral (F) 97.2 F 07/21/2012 [facility] Heart Rate 64 07/21/2012 [facility] Respitory Rate 16 07/21/2012 [facility] Temperature Oral (F) 98.5 F 07/21/2012 [facility] Heart Rate 64 07/21/2012 [facility] Respitory Rate 18 07/21/2012 [facility] Diastolic (mm Hg) 85 07/21/2012 [facility] [place] Systolic (mm Hg) 134 07/21/2012 [facility] [place] Weight 113.636 07/19/2012 [facility] Height 160.02 cm 07/19/2012 [facility] Encounters Location Location Encounter Encounter Reason Attending ADM DC Stat us Source Details Type Number For Visit Provider Date Date [facility] [id number] CEREBRAL LISA 07/19 07/[address] [facility] VASCULAR ANAND /2011 [facility] ACCIDENT Center [facility] [id number] AMS JILLIAN 05/08 05/[address] [facility] CHERNYSHEV /2012 [facility] Inpatient [id number] _MAPID:[id number] Amrou 11/13 11/14 [facility] [id number] Yessenia /[address] Inpatient [id number] Amrou 10/26 11/01 [facility] /2014 [facility] Inpatient [id number] Atif Krell 03/16 03/23 [facility] /2014 [facility] Inpatient [id number] Cerena 03/09 03/13 [facility] Kaur /2018 [facility] Procedures Procedure Code Date Perfomer Comments Source Spinal puncture, [address]052 03/17/2015 [facility] therapeutic, for Medical drainage of [place] cerebrospinal fluid (by needle or catheter) Appendectomy [id number] [facility] Cholecystectomy [id number] [facility] Ankle [id number] WITH SCREWS [facility] fusion<sup>1</sup> [facility] Appendectomy [id number] [facility] Cholecystectomy [id number] [facility] Fixation of fracture [id number] [place] using plate [facility] Hysterectomy [id number] [facility] Assessment and Plan Assessment and Plan Date Source Extracted from:Title: Stroke Progress Note 03/13/2019 [facility] Author: Bibiana Cortes MD Date: 03/12/19 Patient: Isabell Delilah Overnight: No issues overnight. Patient feels her speech has returned to her baseline. History of Present Illness: 53 yr old female with PMH of CHF, recent CVA, APLS, on ASA and Statin transferred form [place] after presenting 36 hrs post worsening neurological deficits. Pt with worsening dysarthria, left sided hem isensory loss. CTH - no evidence of evol ving ischemia - however old encephalomalacia in R-MCA territory, CTA no LVO. She was given ASA 300mg SC prior to transfer. On evaluation her BP is 100 systolic. T rops in OSH mildly elevated w/o EKG mendez ges. Concern for NSTEMI. PT denies NV, visual changes. On chart review, she has had multiple pr ior admissions for focal neurologic symptoms. She was admitted in 2007 two weeks after her first stroke with new symptoms attributed to complex migraine. She pres ented again in 2011 with headache, nause a, R hemiparesis with negative MRI Brain which was also thought to be complex migraine. In 2011 she had a R MCA stroke and was found to have +ve lupus anticoag la bs. 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 Per patient, she followed with outpatient [employer] [facility] who switched her from Xarelto to aspirin. Review of Systems: GEN: no fever, chills, weight loss, + fatigue EYES: no blurred vision, double vision CARDIO: no chest pain, palpitations PULM: no shortness of breath, cough GI: no nausea, vomiting, diarrhea, + recent abd pain : no frequency, dysuria, hematuria NEURO: see HPI SKIN: no rash or lesion MSK: no pain, swelling, redness, heat in muscles, no limited ROM, weakness, or atrophy, no cramps LYMPH/IMMUNO: No lymph node enlargement/tenderness, no heat/ cold intolerance Medications: Resume aspirin 81mg Allergies: NSAIDs; Depakote; Compazine; Stadol; Toradol; Vicoprofen Physical Exam: Vitals Vitals Tmp(F) Pulse BP RR SpO2 FIO2 03/12 03:35 97 91 119/71 18 97 --- 03/12 03:10 ---- 92 113/48 -- 96 --- 03/12 02:30 ---- 90 115/64 16 96 --- 03/11 23:40 97.7 93 147/96 18 96 --- 03/11 20:10 97.1 96 112/72 18 98 --- 24 Hr Tmax: 97.7F (36.50c) at 03/11 23:4 0 Vital Signs are the last 5 in the past 48 hours. GENERAL: Awake, alert in NAD HEENT: - Normocephalic and atraumatic, LUNGS - Clear to auscultation bilaterally, mild wheezes CV - S1S2 RRR, no m/r/g, equal pulses bilaterally. ABDOMEN - Soft, nontender, nondistended NEURO: Mental Status: AA&Ox3 Language: speech is slurred. Naming, re petition, fluency, and comprehension intact. Cranial Nerves: PERRL 4_mm/brisk. EOMI, visual mullen full, left facial droop, decreased sensation in left face, hearing intact, tongue/uvula/soft palate midline, normal sternocleidomastoid and trapeziu s muscle strength. No evidence of tongue atrophy or fibrilla tions Motor: No drift in extremities, +satelliting around left arm Tone: is normal and bulk is normal Sensation- decreased in left arm and leg Coordination: FTN intact bilaterally, no ataxia in BLE. Gait- slow but normal Labs: Creatinine Lvl: 0.64 mg/dL (03/12/19 03:51:00) INR: 1.06 (03/10/19 14:00:00) Platelet: 194 K/CMM (03/12/19 03:51:00) Glucose Lvl: 97 mg/dL (03/12/19 03:51:00) LDL 36 HA1c 4.8 Imaging: MRI Brain w/o contrast: IMPRESSION: MRI examination of the brain is unchanged. 1. No acute infarction, intracranial hemorrhage or mass. 2. Encephalomalacia in the right MCA te rritory demonstrating evidence of remote petechial hemorrhage.. 3. Remote lacunar infarct in the right lentiform nucleus. TTE: Conclusions 1) Left ventricular size and systolic function is normal. Mi ld concentric left ventricular hypertrophy is observed. LV ejec tion fraction is estimated at 60%-65%. 2) The right ventricular global systolic function is normal. 3) Both atria are normal in size 4) No significant valvular abnormalities are present 5) The right ventricular systolic pressure was calculated at 16 mmHg assuming right atrial pressure is 3 mmHg. 6) There is no pericardial effusion. 7) Compared with previous study dated 10/26/2014, there is no signficant change Assessment: 53 yr old female with prior stroke with mild residual left hemiparesis, encephalitis, complex migraine and depression who was transferred for worsening dysarthria, facial droop and left hemisensory loss . Symptoms coincide with significant str essor of hearing news of son having aortic aneurysm and also in the setting of headache. She reports previous episodes of slurred speech that she was told were TIAs the last being over a year ago. MRI negative for acute stroke but sympto ms are persistent on exam today. Previously determined not to have APLS and taken off of anticoagulation in the past. MRI Brain with thin slices through the brain stem does not demonstrate any new acute stroke lesions to explain episode of worsened dysarthria. TIA is less likely since she has recurring episodes of the same symptoms over years without new stroke. Urinalysis negative and no sign of infe ction that would possibly cause recrudescence of prior stroke symptoms. Based on the history, I suspect functional disorder since the dysarthria worsened soon af ter hearing troubling news and has not r esolved since her headache improved days ago as I would expect with complex migraine. Recommendations: - Continue Aspirin 81mg/ Statin for secondary stroke prevent ion - Please refer for outpatient follow-up with General Neurology for migraine management - Continue Topiramate 50mg po BID - Outpatient follow-up with her Psychiat rist for discussion of social stressors and treatment of anxiety - No further stroke workup We will sign off. Please call Stroke Consult Team with [employer]. Rosey Doyle MD Vascular Neurology Fellow PGY-6 Pager# [phone] Extracted from:Title: Cardiology Consult Note Author: Barb Garaz MD Date: 03/10/19 53 yo F with PMHx of CVA, HTN, COPD pres ented to ED with dysarthria and facial droop. Of note, patient is a poor historian.She also complains of chest pain and SOB for which cardiology was consulted. #Elevated troponin #Chest pain - Peaked at .5, trended down to .3, normal CK - Patient with components of typical jacob st pain as it is substernal, worse with any exertion, better with stress. However, atypical features aspatient feels similar pain on palpation - Unlikely due to ACS, EKG reviewed with no acute abnormalit y besides new RBBB - Please discontinue heparin drip - Keep K>4, Mg>2 - TTE results as above, no acute abnormality - Will f/u results of stress test - Continue ASA and statin. Cautious with betablocker since patient has COPD. No wheezing on exam, if patient can tolerate low dose betablocker, please consider starting it--per primary team - Begin lisinopril 1-mg if bp tolerates - A1C 4.8, BNP WNL, Lipid panel only with elevated triglycer ides #Abnomal ECG -New RBBB when compared to previous ECG in 2015 - Pleaserepeat serialEKG -no evidence of significant ST-T changes to suggest ischemia # CVA -asa, statin -as per neurology team #HTN -Optimize BP control -acei as documented above -monitor BP and manage accordingly #COPD -no active wheezing on exam -per primary team #Hypokalemia -please give KCl 60mEq po x1 -monitor level and replete accordingly #Hypophosphatemia -please replete and monitor closely Thank you for allowing us to participate in the care of this patient. Addendum by Barb Garza MD on 03/10/2019 22:41 CDT Attending attestation: I have seen and evaluated patient on 02/16 12/04. I have independently reviewed the history, imaging/diagnostic testings, lab results and examined the patient. I also seen the patient in collaboration and d iscussed the management with the housest aff (Dr. Atkinson). I agree with findings and plan outlined in the note by the resident/fellow with any exceptions noted in my note. #Elevated troponin #Abnormal ECG #Chest pain #CVA #COPD #HTN #Hypokalemia #Hypophosphatemia I personally reviewed patient's ECG--new RBBB when compared to previous ECG in 2015. Patient's chest pain is reproducible on exam. Trop peaked at 0.5 while normal CK. TTE shows normal LVEF 60- 64%. Unlikely ACS at this time. Optimize medical management.Consider stress test Monitor hemodynamics,monitor strict I&O, electrolytes (keep K>4 and mag>2), telemetry. Barb Garza MD [employer] Department of Internal Medicine Division of Cardiovascular Medicine Extracted from:Title: Team A History and Physical Author: Sandrita Starks MD Date: 03/10/19 53 yo F, PMHx of CVA (R MCA w/ residual dysarthria, L sided weakness), HTN, and COPD, presents to ED as transfer from OSH ([place], [place]) with worsening slurred speech and L facial droop x2 days. Associa brissa CP, SOB, N/V/D, UPTON, and R sided weak ness. Describes CP as fluctuating,nonradiating "achy" that has been present for several months, though has recently worsened in past 2 weeks. Pt seen by o/p physician for CP, was given albuter ol with minimal relief.Pt reports brief episode ofnumbness/tingling and muscle cramps 2 days ago after learning news her son will need open heart surgery after wh ich pt took her potassium supplement med icine with minimal relief and upon waking the next morning had nausea and new R sided weakness. At OSH, trop elevated at 0.[address] head negative for acute strok e, pt given 300mg ASA prior to transfer to [facility]. In ED here, pt given 1L bolus for hypotension, stroke team evaluated pt, previous imaging negative, MRI brain done and repeat trop 0.5 and 0.48.EKG sh owed RBBB butotherwise neg.Pt given Plav ix loading dose andstarted on heparin gtt for concerns of NSTEMI. # Dysarthria # L facial droop #Acute R sided weakness - hx of R MCA w/ residual L sided weakness and dysarthria - CTPE (03/09) showed subsegmental atelectasis in the RML, no PE - MRI brain (03/09)showed no acute infarct, hemorrhage, or ma ss - troponins 0.48 -> 0.5 -> 0.48 - pending BNP, TTE, lipid panel, HbA1c, lupus anticoagulant panel - stroke evaluated pt, appreciate recs - start heparin drip # Elevated troponin # Nausea # CP - NSTEMI vs chronic elevation 2/2 CHF - trending troponins, 0.48 (at OSH)-> 0.5 -> 0.48 - EKG showed RBBB, stable from previous EKGs - pending repeat EKG, BNP, TTE, troponin - started heparin drip - will consult cardiology in AM # Hypokalemia - per pt, hx of hypokalemia, at home takes supplementation d aily - possibly due to chronic diarrhea - K 2.8 on admission - serum osm 294 - serum osm, urine osm, urine Na, K, and Cl - monitor # Depression # Anxiety # Benzodiazepine use - home meds include benzodiazepines for sleep - on CIWA for withdrawal - HOLD current home psychiatric medicati ons at this timeto prevent further sedative effects # COPD # Dyspnea - hx of COPD, at home takes Proair and Spiriva - CTPE (03/09) showed subsegmental atelectasis in the RML, no PE - MRI brain (03/09)showed no acute infarct, hemorrhage, or ma ss - started albuterol/ipratropium PRN Q6H - started Spiriva QD Diet NPO, failed dysphagia screen per [employer] Heparin Pending clinical improvement Teaching Physician Attestation: I saw an d evaluated the patient with the resident team. I reviewed the clinical data and confirmed the findings. We formulated the assessment and plans. I agree withthis note. Dario Downs MD Extracted from:Title: General Neurology Discharge Summary [facility] Author: Yue Anderson MD Date: 03/22/15 General Neurology Transfer Summary Date of Admission: 03/16/2015 Date of Discharge: 03/22/2015 Admit Diagnosis: Encephalopathy Discharge Diagnosis: HSV encephalitis, chronic R MCA ischemi c stroke Consults Obtained: Infectious Disease, Dr. Joshi; Stroke, Dr. Cortes Brief HPI: 49yo CF with history of R MCA CVA with n o residual deficits (per last stroke discharge note) on anticoagulation with xarelto for possible APLA, chronic migraines, anxiety and depression, and PTSD, who p resented as a transfer from [facility] for HLOC for encephalitis with background history of APLA and CVA. Patient presented initially to OSH 03/11/2015 with 5-day history of increased cognitive changes/decline, fatigue, malaise, and h eadache. Initial CT and MRI for CVA rule-out were negative, showed prior R MCA CVA. Multiple paroxysmal spells noted by family and physician 03/13/2015, consisting of R version R gaze preference, R facia l twitching, RLE twitching, and RUE movements. Paroxysmal spells lasted 5-7 minutes, followed by lethargy and somnolence. High clinical suspicion for complex part ial seizure, loaded with VPA x1, followe d by maintenance doses. Patient transferred to OSH ICU, repeat MRI brain, DWI and T2 flair hyperintensities along medial temportal lobe with no ADC correlate. Emp irically started on IV acyclovir. Xarelt o held, LP performed 03/16/2015. CSF: WBC 80 RBC 0 L 90 E 1 N 4 Glu 42 Protein 47. WBC 12.8 on admission, K 2.7, Hgb 12.5, Cr 0.8. Depakote toxicity, level 132 () -> 94.9 (03/16/2015). [facility] given CSF analysis, interim changes in MRI, and history of APLA and CVA. Hypercoaguable lab abnormalities: ESR 55 CRP 100m protein C activity low at 68% ATIII 79% IgM anticoagulant elevated 5.2 lupus anticoagulant detected. Repeat labs done by Dr Gardiner in 07/2013 showed normal anti-carrdiolipin panel, CRP wnl and ESR 40 Hospital Course: Admitted to ICU, transferred down to [facility] or soon after transfer to [facility], after patient remained stable with stable exam. LP with IR, opening pressure 14. CSF showed signs of continued infection versus inf lammation: WBC 40 RBC 3 L 90 E N Glu 42 Protein 71. ID consulted, recs to continue IV acyclovir. HSV negative x2, at OSH and [facility]. Patient symptomatically improving with acyclovir, increased suspicion fo r infectious process (HSV) although not detected. Cannot rule out inflammatory/autoimmune process at this time. Attempted to obtain CSF IgG index, but insufficient fluid in lab. Patient's insuranc e does not cover IV acyclovir, patient t ransitioned to valacyclovir 1g po q8 hours for planned discharge, confirmed with ID. Obtained paraneoplastic panel with strict instructions to follow up for resul ts. Consulted stroke regarding xarelto a nd APLA diagnosis, will discharge with xarelto. Physical Exam: hypophonic speech, mildly dysarthric, comprehension and naming intact Discharge Medications: Please see EMR for full record of discharge medications. Discharge Instructions: Follow up: Patient needs to follow up with PCP Dr. Elkins in 2-4 weeks. If patient changes insurance, would like to see in [facility] after repeat antiphospholipid antibody panel, . Pending labs on discharge: Paraneoplasti c panel, cerebrospinal fluid studies including VZV PCR, anti-NMDA receptor Ab, VDRL, West Nile Virus. Plans for future care: In 3 months, tunde ent should have repeat antiphospholipid antibody panel. Panel was sent on this admission. Patient should hold Xarelto for 24 hours prior to getting labs drawn for APLA panel. Ideally would stop Xarelto if patient has two negative APLA panels that are negative. Medications: Complete total of 21 days o f acyclovir with Valtrex 1000 mg every 8 hours, last day of medication will be 04/05/15. Continue Keppra 1000 mg twice daily until primary care follow up. Patient is at risk for seizure given prior stroke. Extracted from:Title: Stroke Team Consultation Author: Bibiana Cortes MD Date: 03/22/15 Stroke History and Physical Patient: Delilah Whyte Attending of Record: Sebastina Chief Complaint: Consulted for stroke Prophylaxis History of Present Illness: 49 y/o female hx of Rt MCA stroke in 04/18 3 with mild residual deficits (left face and dysarthria) on xarelto for question of APS, migraines, PTSD who presented initially as a transfer from outside facility for questionable seizures. Patient does not remember much of her pr esentation as she has no much recollection of recent events. Most hospitalization and presentation history collected from records and from speaking to others health staff. Patient presented on 03/11 with few days history of consititutional symptoms including headache and fever. After admission she started having PCS like events with rt gaze deviation and right sided twitc leonor. Patient was transferred to our [facility] for higher level of care. Repeat MRI revealed Temporal t2/flair hyperintensity. She was LPd and started on HSV tx. She tells me that she remebers having an oral ulcer prior to event. Currently she is almost back to baseline with mild headache. As for her stroke history, patient had m ultiple presentations with transient weakness in the past with no MRI findings, diagnosed as conversion vs complicated migraine. However in apr 2013 she presented with rt MCA (inf M2) ischemic infarct. A complete work up was unrevealing except for +ve lupus anticoagulant Abx. Patient was started on Xarelto and discharged, 3 mth later she followed up outpatient and a repeat Lupus anticoagulant was negative. Patient does give me a history of two pr evious misscarriage, one in first trimester and one in 2nd trimester. Review of Systems: GEN: no fever, chills, weight loss, fatigue, +ve headache EYES: no blurred vision, double vision CARDIO: no chest pain, palpatations PULM: no shortness of breath, cough GI: no nausea, vomiting, diarrhea, no abd pain : no frequency, dysuria, burning, hematuria, no urinary in continence NEURO: see HPI SKIN: no rash or lesion ENDOCRINE: No constipation, palpitation or diarrhoea or fati leonel MUSCULOSKELETAL: No joint pain Past Medical History: Migraine Depression Rt MCA stroke in 2012 Past Surgical History: Hysterectomy Family Medical History: Father with stroke in his 70s Social History: Smokes 1/2 PPD, social alcohol, denies any drugs Lives with daughter On disability Medications: Scheduled Meds (11): 03/18/15 atorvastatin (Lipitor) 80 mg PO Daily 03/17/15 buPROPion (Wellbutrin) 200 mg PO BID 03/17/15 haloperidol 2 mg PO BID 03/17/15 heparin 5,000 unit SUB-Q Q8H 03/17/15 levETIRAcetam (Keppra) 1,000 mg PO Q12H 03/16/15 lisinopril 20 mg PO BID 03/17/15 pantoprazole 40 mg PO Daily 03/17/15 pregabalin 50 mg PO BID 03/17/15 sertraline 100 mg PO BID 03/17/15 topiramate (Topamax) 50 mg PO Q12H 03/21/15 valACYclovir (Valtrex) 1,000 mg PO ABXQ8H One Time Meds: None Unscheduled Meds: None Continuous Infusions: None Allergies: Refer to EMR Physical Exam: Vitals Tmp(F) Pulse BP RR SpO2 FIO2 03/22 04:01 97.7 69 139/89 18 98 --- 03/22 00:58 97.4 76 139/87 16 97 --- 03/21 20:55 97.8 --- ----- 16 96 --- 03/21 19:56 ---- 89 118/73 -- --- --- 03/21 15:50 98.0 77 121/84 19 98 --- 24 Hr Tmax: 98.0F (36.67c) at 03/21 15:5 0 Vital Signs are the last 5 in the past 48 hours. GENERAL: Awake, alert in NAD HEENT: - Normocephalic and atraumatic, no thyromegally, no J VD LUNGS - Clear to auscultation bilaterally with no wheezes CV - S1S2 RRR, no m/r/g, equal pulses bilaterally. ABDOMEN - Soft, nontender, nondistended with normoactive BS NEURO: 1. Mental Status: Patient is awake alert , oriented to person, place and time. Attention and concentration intact as tested by counting backwards, memory intact 3/3 2. Speech/language: Naming, Repetition, comprehension and fl uency are intact. 3. Cranial Nerves: EOMI, fundi normal, v isual mullen full, PERRL 3mm/brisk bilaterally, facial sensation intact, left facial droop, hearing intact, tongue/uvula/soft palate midline, normal sternocleidom astoid and trapezius muscle strength. No evidence of tongue atrophy or fibrillations 4. Motor: Tone is normal and bulk is normal 5/5 all ms groups Deep Tendon Reflexes- R Triceps2+, Biceps 2+, Brachioradialis 2+, Patellar 2+, Ank le 2+ L Triceps2+, Biceps 2+, Brachioradialis 2+, Patellar 2+, Ank le 2+ Toes down going bilaterally 6. Sensation- Intact to pain bilaterally 7. Coordination: FTN wnl, heel to tse W NL with no signs of dysmetria , no ataxia noted 8. Gait- deferred Labs Labs (Last four charted values) WBC H 11.7 (Mar) 10.0 (MAR 21) 9.6 (MAR 20) 9.6 (MAR 19) Hgb L 10.4 (Mar) L 10.8 (MAR 21) L 11.2 (MAR 20) L 10.3 (MAR 19) Hct L 32.6 (Mar) L 32.9 (MAR 21) L 33.6 (MAR 20) L 32.2 (MAR 19) Plt 224 (MAR 22) 251 (MAR 21) 285 (MAR 20) 292 (MAR 19) Na 143 (MAR 22) 142 (MAR 21) 141 (MAR 20) 142 (MAR 19) K 3.6 (MAR 22) 3.8 (MAR 21) 3.9 (MAR 20) L 3.4 (MAR 19) CO2 L 22 (MAR 22) L 21 (MAR 21) L 23 (MAR 20) L 21 (MAR 19) Cl H 110 (MAR 22 ) H 110 (MAR 21) 108 (MAR 20) H 111 (MAR 19) Cr 0.9 (MAR 22) 0.7 (MAR 21) 0.7 (MAR 20) 0.6 (MAR 19) BUN 10 (MAR 22) 11 (MAR 21) 7 (MAR 20) 10 (MAR 19) Glucose Random 81 (MAR 22) 83 (MAR 21) 71 (MAR 20) L 69 (MAR 19) Mg 1.8 (MAR 22) 1.8 (MAR 21) 1.9 (MAR 20) L 1.7 (MAR 19) Phos 3.5 (MAR 22) 4.1 (MAR 21) 3.6 (MAR 20) 3.4 (MAR 19) Ca 8.9 (MAR 22) 9.1 (MAR 21) 9.2 (MAR 20) 8.5 (MAR 19) PT 14.5 (MAR 17) INR 1.12 (MAR 17) PTT 31.2 (MAR 17) 29.7 (MAR 16) Troponin <0.02 (MAR 17) <0.02 (FEB 17) Stroke Work-Up MRI:my read b/l mesial temporal t2/flair hyperintensity with DWI shine through but no ADC correlate ASSESSMENT: 49 y/o Female hx of Rt MCA i schemic stroke in 04/30 on xarelto presents with acute encephalopathy with temporal findings on MRI suggestive of HSV encephalitis. Stroke team asked to see patient regardi ng stroke prophylaxis and need for xarelto. I did review previous records, and her 2013 hospitalization. Apparently her TTE revealed a PFO and stroke was thought to be paradoxical, but CESAR was negative for PFO. Lupus anticoagulant returned +ve and patient was started on xarelto. However a repeat lab work 3 mth later was negative for APS. Patient does fit clinical criteria for A nti-phospholipid Syndrome given her MCA stroke with no other etiology and 2 miscarriages. Lab criteria not fulfilled with only one positive test, however, her 2nd testing of lupus anticoagulant was done on Xarelto (according to patient) which might give false results (though usually false +ve rather than -ve). RECOMMENDATION: - Obtain another set of anitphospholipid panel in house, since patient has been off xarelto for few days - Schedule her for another labwork in 3 mths, and instruct to be off xarelto for >24 horus prior to blood sample - For now, I would recommend to continue anticoagulation in this young lady with no other possible etiology for her strokes, other than APS for now. - If the two set of tests came back nega tive, then we might consider switching to Aspirin at that time - Patient will need to follow up in stroke clinic - Might consider involving hematology as outpatient - If not done in the past, then I would recommend a counselor marriage and family - Repeat MRI to follow up on temporal lesion - Further work up for HSV encephalitis v s other limbic encephalitis (paraneoplastic/NMDA) as per general neurology I had a prolonged discussion with jackson arvizu, she is more comfortable to continue on xarelto for now, and understands the risks. I find her decision reasonable. Please call with questions, Extracted from:Title: General Neurology Progress Note Author: Yue Anderson MD Date: 03/22/15 General Neurology Progress Note Subjective: Patient without acute overnight events. Continues to note some difficulty with memory, but improving. HPI: Ms Whyte is a 49 y/o woman wi th PMH of R MCA CVA with no residual deficits (per last discharge note from stroke) on anticoagulation with Xarelto for possible APLA (please see PMH below for de tails), chronic migraines, anxiety/depre ssion, PTSD presents as an transfer from [facility] for HLOC. The patient initially presented to OSH on 03/11 with a 5 day history of increased cognitive decline, fatigue and malaise and [place]. An initial CT-scan and MRI to rule out acute CVA was negative and showed prior R MCA CVA. On 03/13, she was noted to have multiple paroxysmal spells (7 to 8 by family and 3 by physician at OSH) characterize d by R version R gaze preference, along with R facial twitching and RLE twitching and RUE movements. The events lasted 5-7 mins each, and after each event she was noted to be lethargic and somnolent. Du e to high clinical suspicion of these events to be cmomplex partial seizures, she was loaded with VPA 1000 mg * 1 and started on maintainance doses. She was subse quently transferred to the ICU. 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 She was empirically start ed on acylovir, her Xarelto was held and she underwent a lumbar puncture on 03/16. Diagnostic review of labs from OSH (physical copy in patien t's chart): CSF results: WBC 80 RBC 0 L90 E 1 N 4 Glu 42 protein 47 WBC on admission was 12.8 K 2.7 Hb 12.5 Cr 0.8 UDS and bl. alcohol level negative Depakote level 132 (03/15) and 94.9 (03/16) KYLE screen pending RPR NR Based on the results of the CSF analysis , interim changes in MRI and background history of APLA and CVA, she was transferred to [facility] for HLOC. Hypercoaguable lab abnormalities: ESR 55 CRP 100m protein C activity low at 68% ATIII 79% IgM anticoagulant elevated 5.2 lupus anticoagulant detected. Repeat labs done by Dr Gardiner in 07/2013 showed normal anti-carrdiolipin panel, CRP wnl and ESR 40. Hospital Course: 03/17/2015: Admitted to ICU. Transferred down to floor after patient remained stable, exam stable. LP with IR, opening pressure 14. 03/18/2015: Patient stable, exam stable, c onfused but oriented x3. CSF showed signs of worsening infection: WBC 40 RBC 3 L 90 E N Glu 42 Protein 71. OSH HSV PCR confirmed negative. 03/19/2015: Patient symptomatically improv ed, more alert, oriented x4. Increased acyclovir to 750mg IV q8 hours per ID recs. 03/20/2015: Patient continues to improve s ymptomatically, speech still dysarthric but improving, more verbal, more alert, continues to be oriented x4. Spoke with ID, lowered acyclovir to 500mg IV q8 hours . HSV PCR here confirmed negative, but w ill continue acyclovir as patient symptomatically improving. 03/21/2015: Patient endorsed continued dif ficulty remembering phone numbers and birthdays, stable cognitive exam. Dysarthria continuing to improve. Insurance will not cover home health IV acyclovir. Per I D, okay to switch to valacyclovir 1g po q8 hours. Medications: Medications (14) Active Scheduled Meds (11): 03/18/15 atorvastatin (Lipitor) 80 mg PO Daily 03/17/15 buPROPion (Wellbutrin) 200 mg PO BID 03/17/15 haloperidol 2 mg PO BID 03/17/15 heparin 5,000 unit SUB-Q Q8H 03/17/15 levETIRAcetam (Keppra) 1,000 mg PO Q12H 03/16/15 lisinopril 20 mg PO BID 03/17/15 pantoprazole 40 mg PO Daily 03/17/15 pregabalin 50 mg PO BID 03/17/15 sertraline 100 mg PO BID 03/17/15 topiramate (Topamax) 50 mg PO Q12H 03/21/15 valACYclovir (Valtrex) 1,000 mg PO ABXQ8H Unscheduled Meds: None PRN Meds (2): 03/16/15 hydrALAZINE 10 mg IVP Q6H 03/16/15 labetalol 10 mg IVP Q15Min One Time Meds: None Continuous Infusions (1): 03/16/15 Sodium Chloride 0.9% IV 1,000 m L (normal saline 0.9% IV 1,000 mL) 1,000 mL 100 ml/hr Objective: Vitals: Vitals Tmp(F) Pulse BP RR SpO2 FIO2 03/22 04:01 97.7 69 139/89 18 98 --- 03/22 00:58 97.4 76 139/87 16 97 --- 03/21 20:55 97.8 --- ----- 16 96 --- 03/21 19:56 ---- 89 118/73 -- --- --- 03/21 15:50 98.0 77 121/84 19 98 --- 24 Hr Tmax: 98.7F (37.06c) at 03/21 08:4 5 Vital Signs are the last 5 in the past 48 hours. Physical Exam: GEN - Alert and in no apparent distress HEENT - Normocephalic and atraumatic, OP clear and moist, no nasal discharge CV - Rate rhythm regular, no murmur, equal pulses bilaterall y RESP - Clear to auscultation, no wheezes, rales or rhonchi ABD - Soft, non tender, with normal bowel sounds; No hepatos plenomegaly NEURO: AAOx3 Speech: hypophone, mild dysarthria, comprehension and naming intact system support developer: 2-12 intact. Right and left horizon ana gaze nystagmus, 1-2 beats each. Assymetry of face with deviation to right. Motor: Tone: Normal Power: 5/5 in all groups of muscles in all four limbs Reflexes: 2+ symmetrical bilaterally Plantar: Flexor Drift: absent Sensory: Intact grossly. Cerebellar signs: Intact FTN Gait: not assessed Labs: 36hr Labs 08/ 0412 Magnesium Lvl 1.8 Phosphorus 3.5 Glucose Lvl 81 BUN 10 Creatinine Lvl 0.9 Sodium Lvl 143 Potassium Lvl 3.6 Chloride Lvl 110 H CO2 22 L AGAP 14.6 Calcium Lvl 8.9 eGFR 75 WBC 11.7 H RBC 3.87 L Hgb 10.4 L Hct 32.6 L MCV 84.1 MCH 26.8 L MCHC 31.9 L RDW 17.6 H Platelet 224 MPV 7.5 Segs 52.0 Monocytes 7.4 Lymphocytes 38.6 Eosinophils 1.0 Basophils 1.0 Segs-Bands # 6.1 Lymphocytes # 4.5 Monocytes # 0.9 H Eosinophils # 0.1 Basophils # 0.1 08/ 1733 Glucose POC 90 08/ 1325 Glucose POC 93 08/ 0435 Glucose Lvl 83 BUN 11 Creatinine Lvl 0.7 Sodium Lvl 142 Potassium Lvl 3.8 Chloride Lvl 110 H CO2 21 L AGAP 14.8 Calcium Lvl 9.1 eGFR 101 Magnesium Lvl 1.8 Phosphorus 4.1 WBC 10.0 RBC 3.91 L Hgb 10.8 L Hct 32.9 L MCV 84.2 MCH 27.7 MCHC 32.9 RDW 17.2 H Platelet 251 MPV 7.5 Segs 54.0 Monocytes 6.9 Lymphocytes 36.9 Eosinophils 1.2 Basophils 1.0 Segs-Bands # 5.4 Lymphocytes # 3.7 Monocytes # 0.7 Eosinophils # 0.1 Basophils # 0.1 03/20 2339 IgG Lvl CSF 6.4 H 03/18 1644 W Nile Ab IgM <0.90 03/17 1115 VDRL Scr CSF Non Reactive Assessment: 49 y/o R handed female with pr ior history of R MCA CVA (with HT) and questionable APLA, on anticoagulation with Xarelto, chronic migraines and psychiatric co-morbidities presents from OSH with subacute cognitive decline along with m alaise and low grade temperatures. MRI imaging was stable from the stroke point of view, however repeat MRI done 3 days after admission in the setting of new onse t ccomplex partial seizures showed inter im DWI and T2 Flair changes along the medial aspect of the temporal lobes. EEG done at OSH showed moderate encepalopathy. CSF analysis showed lymphocytic predomin ant neutrophilia with midlly elecated pr otein (47). Repeat CSF shows elevated protein, low glucose. Her encephalopathy appears to be multifa ctorial with underlying infection (encephalitis), possible autoimmune component, secondary seizures and medication side effects playing a role. Insufficient CSF v olume from LP to complete IgG index at t his time. Cannot rule out inflammatory process, but patient responding well, symptomatically improving with acyclovir. Plan: # Encephalopathy - Repeat LP shows elevated protein, low glucose, concerning for infection. - Continue to monitor for seizure activity - Insufficient CSF volume from LP to complete IgG index - Will order serum paraneoplastic panel, follow up in clinic [address] John # Meningitis, possible herpes - CSF culture, NGTD - Valacyclovir, dosed for meningitis, 1g po q8 hours, today is day 1 of valacyclovir, day 06/07 of treatment. Recieved 500mg IV q8 hours, x9 days (started 03/13). Last dose 04/01/2015. - HSV negative x2 (at OSH and here). - Will not plan discharge with home heal for IV acyclovir, patient's insurance will not cover outpatient IV acyclovir. - ID following. Contacted ID regarding p o valacyclovir as option for discharge. ID recs, continue to treat her as HSV encephalitis, okay to discharge with Valtrex 1 mg PO every 8 hrs to complete total 2 1 days of treatment (last day will be ), follow results of CSF for VZV PCR, VDRL, West Nile IgM, and anti-NMDA receptor Ab. - Switched to po valtrex 1g po q8 hours. # Possible Seizures - Keppra 1000 mg q12h - VPA level elevated 115. Holding depakote for now - Routine EEG shows no seizure, only encephalopathy - May be provoked in setting of infection # Mood disorder - Resume meds: wellbutrin, sertraline, and haldol # Anemia - Appears to be chronic - Trend CBC # HTN - Goal: normal SBP 110-140 - Continue Lisinopril 20 mg BID - PRN labetalol, hydralazine # Prior R MCA CVA - Xarelto held for LP, continue to hold for possible repeat LP - Order repeat lupus anticoagulant panel - Will plan to resume xarelto after lupus anticoagulant pane l # HLD - Continue atorvastatin # Chronic migraine - Continue Topamax 50 mg BID # DVT PPx - Heparin subQ, will stop when resume Xarelto - Consult stroke re: xarelto # PT/OT: - Per PT okay to discharge home with family - Follow up OT Neurology staff Teaching physician statement I reviewed the residents note, personall y reviewed all the patients labs and imaging studies and personally performed a complete neurological exam. I discussed the assessment and plan of care an d agree with the plan as outlined in the resident's note. Impression: 49 y/o with h/o right MCA s troke and new limbic encephalitis with secondary seizures now significantly improved. Will change acyclovir to valacyclovir PO to complete course. Greatly appreciate ID input. Diagnosis: 1. 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 seizures (345.41) 3. ischemic stroke (434.91) 4. anemia (285.9) 5. coagulopathy (286.9) 6. hyperlipidemia (272.4) Level of service: 37545 Tim John MD, PhD #[id number] Lean Consultant of Neurology Extracted from:Title: Clinical Document Author: Ashley Rosas MD Date: 03/16/15 General Neurology Consult Note Requesting Physician/Service: Transfer from [facility] Reason for admission: New onset seizures, possible HSV menin gitis HISTORY OF PRESENT ILLNESS: Ms Whyte is a 49 y/o woman wi th PMH of R MCA CVA with no residual deficits (per last discharge note from stroke) on anticoagulation with Xarelto for possible APLA (please see PMH below for de tails), chronic migraines, anxiety/depre ssion, PTSD presents as an transfer from [facility] for HLOC. The patient initially presented to OSH on 03/11 with a 5 day history of increased cognitive decline, fatigue and malaise and UPTON. An initial CT-scan and MRI to rule out acute CVA was negative and showed prior R MCA CVA. On 03/13, she was noted to have multiple paroxysmal spells (7 to 8 by family and 3 by physician at OSH) characterize d by R version R gaze preference, along with R facial twitching and RLE twitching and RUE movements. The events lasted 5-7 mins each, and after each event she was noted to be lethargic and somnolent. Du e to high clinical suspicion of these events to be cmomplex partial seizures, she was loaded with VPA 1000 mg * 1 and started on maintainance doses. She was subse quently transferred to the ICU. 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 She was empirically start ed on acylovir, her Xarelto was held and she underwent a lumbar puncture on 03/16. Diagnostic review of labs from OSH (physical copy in [facility] luh's chart): CSF results: WBC 80 RBC 0 L90 E 1 N 4 Glu 42 protein 47 WBC on admission was 12.8 K 2.7 Hb 12.5 Cr 0.8 UDS and bl. alcohol level negative Depakote level 132 (03/15) and 94.9 (03/16) KYLE screen pending RPR NR Based on the results of the CSF analysis , interim changes in MRI and background history of APLA and CVA, she was transferred to [facility] for HLOC. Review of Systems: GEN: low grade fever (Tmax of 100.1 at OSH), fatigue+ EYES: No blurred vision, double vision, eye pain ENT: No decreased hearing, nose bleeding, nasal congestion, sore throat CARDIO: No chest pain, palpitation, orthopnea, dyspnea on ex ertion PULM: No shortness of breath, cough, wheezing, asthma, sputu m, hemoptysis GI: No nausea, vomiting, diarrhea, constipation, Abdominal P ain : No frequency, burning, hematuria, nocturia, hesitancy NEURO: As per HPI ENDO: No weight loss, weight gain, heat intolerance, cold in tolerance SKIN: No rash, lesion, itching MUSC: No joint pain, muscle pain, arthritis, back pain Past Medical History: HTN, recurrent TIA s with aphasia, R MCA CVA, 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 Repeat labs done by Dr Gardiner in 07/2013 showed normal anti-carrdiolipin panel, CRP wnl and ESR 40 Past Surgical History: hysterectomy, cho lecystectomy, appendectomy, R ankle fusion Family History: CVA in father, cardiomyo catie and CHF in sister, HTN in both parents Social History: Lives with daughter Brittni borrero. Per EMR review, her Swapnil ([id number]) is listed as her next of kin. Medications: Per list from OSH, Ultram, Halcion, Lyrica, Robaxin, folic acid, Topamax, thiothixene lipitor, Xarelto 20, Prinivil, Haldol, Nexium, Wellbutryin, Zoloft Allergies: depakote, stadol, toradol, vicoprofen, compazine, gabapentin Physical Exam: APPEARANCE - Obese, sleeping but awakens to voice HEAD - Normocephalic and atraumatic EYES - Pupil equal and reactive to light LUNGS - Clear to auscultation, no rales or rhonchi CV - Rate rhythm regular, no murmur, equal pulses bilaterall y. ABDOMEN - Soft, non tender, with normal bowel sounds. No hep atosplenomegaly NEUROLOGY: AA, oriented to name, place and year. Names year as August Speech: hypophonic, decreased speech out put, flat affect, comprehension intact, repetition and naming intact. Psychogenic stutter system support developer: EOMI, PERRLA, R gaze horizontal nys tagmus, face asymmetric (deviated towards R, no facial sensation abnormality, tongue protusion midline, symmetric shoulder shrug Motor: Tone: Normal Power: 5/5 in all groups of muscles in all four limbs Reflexes: 2+ symmetrical bilaterally in UE, 3+ in patellar with crossed adductor bilaterally, ankle refelexes 2+ Plantar: Flexor on L, withdrawal on R Drift: absent Sensory: Intact light touch and pin prick sensation Cerebellar signs: Intact FNT and knee heel test Gait: deferred Labs: 24hr Labs 03/16 2358 Glucose POC 89 03/16 2118 ABO/Rh O POS Antibody Scrn Negative U Amph Scr Negative U Starla Scr Negative U Benzodia Scr Negative U Cannab Scr Negative U Cocaine Scr Negative U Methadone Scr Negative U Opiate Scr Negative U Phencyc Scr Negative U Propoxyph Scr Negative UDS Note See Note Sodium Lvl 145 Potassium Lvl 3.9 Chloride Lvl 112 H CO2 21 L AGAP 15.9 Glucose Lvl 86 Creatinine Lvl 0.6 BUN 7 B/C Ratio 12 Total Protein 6.8 Albumin Lvl 2.9 L Globulin 3.9 A/G Ratio 0.7 Calcium Lvl 8.4 L ALT 19 AST 5 Alk Phos 110 Bili Total 0.2 eGFR 107 Magnesium Lvl 2.2 Phosphorus 3.0 Ca Ion WB 1.15 Ca Norm WB 1.12 WBC 10.0 RBC 4.23 Hgb 11.3 L Hct 35.4 L MCV 83.6 MCH 26.7 L MCHC 31.9 L RDW 17.3 H Platelet 330 MPV 7.8 Segs 74.9 Monocytes 4.1 Lymphocytes 19.4 L Eosinophils 1.1 Basophils 0.5 Segs-Bands # 7.5 Lymphocytes # 1.9 Monocytes # 0.4 Eosinophils # 0.1 Basophils # 0.1 PTT 29.7 UA Color Light Yellow UA Turbidity Clear UA Spec Grav 1.009 UA pH 7.0 UA Protein Negative UA Glucose Negative UA Ketones Negative UA Bili Negative UA Blood Negative UA Urobilinogen <=1.0 UA Nitrite Negative UA Leuk Est Negative UA RBC <1 UA Mucus Few UA Sq Epi Occasional 03/16 1949 Glucose POC 97 Diagnostic Tests: MRI brain from OSH uploaded for review Prior MRI brain from October 2014 reviwed Assessment: 49 y/o R handed female with pr ior history of R MCA CVA (with HT) and questionable APLA, on anticoagulation with Xarelto, chronic migraines and psychiatric co-morbidities presents from OSH with subacute cognitive decline along with m alaise and low grade temperatures. MRI imaging was stable from the stroke point of view, however repeat MRI done 3 days after admission in the setting of new onse t ccomplex partial seizures showed inter im DWI and T2 Flair changes along the medial aspect of the temporal lobes. EEG done at OSH showed moderate encepalopathy. CSF analysis showed lymphocytic predomin ant neutrophilia with midlly elecated protein (47) Her encephalopathy appears to be multifa ctorial with underlying infection (encephalitis), possible autoimmune component, secondary seizures and medication side effects playing a role Plan: # encephalopathy, multifactorial - repeat LP jacquelin am to reassess CSF - Monitor for possible seizures, has been seizure free sice 03/13 - Cognitive reorientation #posssible seizures - Keppra 1000 mg q12h - VPA level 94. Since depakote is listed as an allergy in our EMR, will hold for now - routine EEG - Likely provoked in the setting of underlying infection - R version, R facial twitching and RUE and RLE movements suggest a L sided focus. EEG and review of imaging will help identify a focus #possible meningitis - Continue meningeally dose Acyclovir, D1 on 03/13 - Would required atleast a 10 d course - Repeat LP and review CSF analysis #mood issues - Could contribute for flat affect - hold Wellbutryin as it could lower seizure threshold - Hold sertraline and seroquel for now - Repeat EEG, restart slowly # Anemia - Hb 11.3, likely acute on chronic - continue to trend #HTN - goal is normalization - Lisinopril 20 mg BID - prn labetelol and hydralazine #R MCA CVA, stable - Hold Xarelto for LP jacquelin am - heparin sq for DVT prophylaxis - Continue statin #HLD - Continue Atorvastatin # chronic migraines - Continue Topamax 50 mg BID Level of care: ICU Necessity: frequent neurologic checks. M ay be transferred to tele/floor if stable overnight DVT prophylaxis: Heparin sq Diet: AHA diet Disposition: Pending PT/OT evaluation Next of kin: Swapnil ([id number]) The case was discussed with the real estate transaction manager General Neurology attending Dr Dey. General Neurology is primary, please call [phone] with questions. Ashley Rosas PGY-3 [facility] Neurology NEUROLOGY ATTENDING I personally discussed this patients H& P with my Residents at the patients bedside. I personally performed the méndez portions of the examination independently. I agree with each comp onent written in the resident documentation related to the e xamination. ASSESSMENT AND PLAN (1) 49 yo RH HF admitted for confusion and seizures. 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 HSV PCR pending. On day 6 of acyclovir. Will get recommendations about duration. Agree w/repeat LP to verify improvement. A gree that she may not need MRI since the y did two at OSH and the second was better. Agree w/getting OSH HSV PCR. Has minimal verbal output on exam, but can answer [facility] (unsure which one), and her name. (3) HYPERCOAGULABLE STATE/ s/p STROKE: h ypercoagulable state: apparently (+) here and (-) at OSH. Need clarification before restarting Xarelto. (4) SEIZURES: agree w/Keppra 1000 bid. N ewly on AEDs? Agree w/dose and watching pt. DIAGNOSES ENCEPHALITIS SEIZURES APHASIA HYPERCOAGULABLE STATE CPT 94084 Extracted from:Title: Stroke Transfer Summary 11/01/2014 [facility] Author: Gael Peña MD Date: 10/31/14 Stroke Neurology Discharge/Transfer Summary Date of Admission: 10/25/14 Date of Discharge Transfer: 10/31/14 Admit Diagnosis: Left hemiparesis, dysarthria, septic shock Discharge Diagnosis: Consults Obtained: Cardiology for RBBB, surgery for portacat h removal Brief HPI: 49 yo W, h/o chronic right mca stroke (w ith baseline LUE weakness per prior records), HTN, HLD, complex migraines, depression, lupus anticoagulant, currently on xarelto, developed sudden onset of UPTON/lef t hemiparesis and dysarthria on 10/25/14 at 1300, evaluated at an osh within 3 hours of symptom onset, nihss 6, with ct brain showing prior chronic right mca stroke. No tPA given with plan for patient aleksandra garcia. Found to have septic shock at time of admission. Hospital Course: On imaging no new lesions were found con erning for new/acute stroke. Pt was admitted to the ICU for septic shock requiring pressors. Pt responded to antiobiotics. The etiology of infection was thought t o be a Right internal jugular Port-A-Cat h. This was removed by surgery without complications. Pt was treated with IV broad spectrum antibiotics. Pt improved throughout her course here. She will be discharged on PO antibiotics for another week. Discharge Physical Examination: Neurology Examination: Higher Function: AAO*3 Speech: fluent, comprehension intact, repetition and naming intact Cranial Nerves: 2-12 intact Motor: - Tone: Normal - Power: 5/5 in all groups of muscles in UE and LE bilate rally - Reflexes: 2+ symmetrical bilaterally - Plantar: Flexor - Drift: absent Sensory: - Intact light touch and pin prick sensation - Intact vibration and position sense Cerebellar signs: Intact Finger Nose Jeanna t, No dysmetria on heel knee tse test, Rombergs negative Gait: Not examined Final Diagnosis: Septic shock from portacath infection Discharge Medications: Please see medication reconciliation Record Disposition: Home Follow up: PCP follow up Discharge Instructions: - PO Levaquin / Flagyl x7d - PCP for hospital f/u and stitch removal The patient received stroke education re garding signs and symptoms of stroke. They were instructed to call [phone] if similar symptoms occurred again. The list of their medications on discharged was revie wed with the patient and all questions were answered. Pablo Peña MD [facility] Family Medicine PGY-2 Extracted from:Title: Cardiology Consult Note Author: Nacho Valencia MD Date: 10/30/14 Cardiology Consult Note Attending Physician: Dr. Hector Ladd Date of Examination: 10/30/14 Reason for Consultation: New RBB on EKG Chief Complaint: dysarthria, L sided numbness/weakness History of Present Illness: Mrs. Delilah Whyte is a 49 year old R troy ded female with past medical history of complex migraine UPTON, HTN, HLD, Depression, anxiety, PTSD, and prior CVA in 2012 (some residual L sided facial droop and GELA E weakness) who presents as a transfer f kaushik Cotto for further evaluation of Left FD, dysarthria, left upper and lower extremity weakness in addition to left sided numbness. In the ER, stroke work u p initiated and CT head negative for acu te process. Patient with SBPs in 80s- 90s. She was given NS bolus and transferred to NTICU for higher level of care. Patient dropped pressures as low as SBPs in t he 50s and was started on pressors. Whil e on pressors patient was found to have rising lactate and acidosis and was started on CRRT. Patient's WBC worsening and patient believed to be in Septic martina ck and she was started on abx. EGS was c onsulted for possible line infection as patient had R katharine-cath (placed November 2013) due to difficult access. Patient now off pressors, with improved lactate, and on abx with plan for removal of portoca th. Cardiology was consulted for new RBB on EKG. Past Medical History: HTN CVA (04/2013) Lupus Anticoagulant (previously on coumadin-> Xarelto) Migraine Depression Anxiety/PTSD ?Seizure Past Surgical History: Hysterectomy Chlecystectomy Appendectomy R Ankle Fusion Allergies: NSAIDs, Depakote, Stadol, Toradol,Vicoprofen, Compazine Medications: See Care4 for complete list of medications Family History: Father: CVA Sister: Cardiomyopathy Sister: CHF Social History: The patient is and lives with her daughter in a single story dwelling. She does not work. She reports smoking 1/2 pack/day since 1999. Denies alcohol or drugs. Review of Systems: Constitutional symptoms: Denies fever, w eight loss, night sweats, fatigue , weakness HEENT: difficulty speaking. Denies ear p ain, nasal drainage, sore throat, hoarseness, visual changes Cardiovascular: Denies murmurs, chest pain, palpitations Respiratory: Denies cough, wheezing, difficulty breathing Gastrointestinal: Denies diarrhea, blood in the stools , [place] sea/vomiting Genitourinary: Denies dysuria, hematuria, change in urine ou tput Musculoskeletal: Denies joint swelling, myalgias, arthalgias Skin: denies rashes Neurological: numbness, weakness Endocrine: Denies changes in body habitus, weight gain Hematologic / lymphatic: Denies bleeding, jaundice, swollen glands Physical Exam: Vitals Tmp(F) Tmp(C) Ttype B P MAP Pulse RR SpO2 FIO2 ETCO2 10/30 11:15 ---- ---- ---- 105 72 9 94 --- --- 10/30 11:00 ---- ---- ---- 105 72 10 95 --- --- 10/30 10:45 ---- ---- ---- 100 78 7 98 --- --- 10/30 10:30 ---- ---- ---- 95 86 12 100 --- --- 10/30 10:29 ---- ---- ---- 120 86 12 100 6.0L/m --- General appearance: Well-developed, well-nourished, no acute distress Skin: no rashes HEENT: normocephalic, neck without esteban s or lymphadenopathy, L facial droop, no JVD Heart: regular rate and rhythm, no M/R/G Vascular exam: 2+ pulses throughout Lungs: non-labored respiration Abdomen: soft, NT/ND Musculoskeletal: no limitation of passive/active motion Neurological: follows commands Labs: Glucose Lvl 79 BUN 8 Creatinine Lvl 0.6 Sodium Lvl 143 Potassium Lvl 3.6 Chloride Lvl 109 CO2 27 AGAP 10.6 Calcium Lvl 8.1 L eGFR 107 Total CK 70 Magnesium Lvl 1.8 Phosphorus 3.2 Ca Ion WB 1.11 Ca Norm WB 1.10 WBC 11.8 H RBC 3.09 L Hgb 9.1 L Hct 27.5 L MCV 89.0 MCH 29.4 MCHC 33.0 RDW 16.3 H Platelet 137 Diagnostic Imaging: TTE 10/26/14 Conclusions 1) The left ventricular chamber size and systolic function a re normal. Global left ventricular wall motion and contractility are wi thin normal limits. The LV ejection fraction is estimated at 65%-70%. Mi ld concentric left ventricular hypertrophy and an intracavitary resting gradient of 43 mmHg is observed. 2) Right ventricular cavity size and global systolic functio n are normal with a TAPSE of 2.2 cm. 3) Both atria are normal in size. 4) There is mild mitral and tricuspid regurgitation seen. 5) The right ventricular systolic pressure is elevated and c alculated at 50 mmHg, assuming a right atrial pressure of 10 mmHg. 6) Aortic root dimensions are normal. 7) There is no pericardial effusion seen. 8) When compared to a previous study dated , there is interval worsening of pulmonary hypertension and a left ventricular i ntracavitary gradient. 10/26 CT PE Protocol 1. Bilateral lower lobe consolidation, w ith heterogeneous areas consistent with infection or aspiration. 2. Small bilateral pleural effusions. 3. Thickening of the upper lobe interlob ular septa could be from subsegmental atelectasis or interstitial edema component. Assessment: Mrs. Delilah Whyte is a 49 year old R troy ded female with past medical history of complex migraine UPTON, HTN, HLD, Depression, anxiety, PTSD, and prior CVA in 2012 (some residual L sided facial droop and GELA E weakness) who presents for further ev aluation of facial droop, dysarthria, left upper and lower extremity weakness/numbness found to have negative CT and MRI for an acute abnormality. Subsquently bec pinky hypotensive with rising lactate and WBC and thought to be in septic shock 2/2 line infection. Cardiology was consulted for new RBB seen on EKG. Plan: Patient with new complete RBB on EKG not seen on admission EKG. Based on ECHO findings, this can be explained by the patient likely having some form of hypertensive heart disease. Patient has some LV hy pertrophy and an intercavitary gradient. This causes some interplay between the heart chambers increasing the right ventricular pressure which can lead to RBB. In the acute setting this could also be po tentially explained by a new possible pu lmonary embolus. Previous CT showed no PE on scan and patient has been on heparin drip. 1. Recommend low dose beta mamie (meto prolol 12.5) to aid in relaxing strain on the heart, releaving some pressure and effect of the gradient. 2. Consider monitoring for PE/DVT with a nother CT chest or doppler of extremities due to patient's history of hypercoaguability. Plan discussed with attending. Please call with any question s or concerns. Nacho Valencia MD Resident, PGY-1 Pager: [phone] CARDIOLOGY STAFF I saw and examined the patient with card iology resident Dr. Valencia, and I agree with findings, assessment and recommended plan of care. Patient has evidence of hypertensive heart diesease with a lft ventri cular intracavitary gradient. Acute isch emia of the left ventricle is less likely. Pulmonary hypertension/embolism are possible contributing factors in new onset right bundle branch block. Hector Ladd M.D. Extracted from:Title: Clinical Document 11/14/2013 [facility] Author: Tanmay Pedroza Date: 11/14/2013 Stroke Progress Note - Daily [facility] Co mpleted: Oct, 08:32 by Tanmay Pedroza MD RM: SHERIEK - 07, DELILAH KAUFMAN 48y (: 1965) F Attending: Wilberto Garcia MD Phone: Service: Neurology Service Reason for Admission: WEAKNESS Working DRG: None Documented Code status: None Specified=FULL CODE Current diet: Isolation: None Documented Allergies: Depakote, labetalol, NSAIDs, Vicoprofen, Stadol, Toradol, Compazine SUBJECTIVE patient awake alert, states UPTON improved from previous OBJECTIVE 24hr Labs 11/14 0444 Glucose Lvl 70 BUN 23 H Creatinine Lvl 0.8 Sodium Lvl 140 Potassium Lvl 4.6 Chloride Lvl 107 CO2 24 AGAP 13.6 Calcium Lvl 8.8 eGFR 87 Chol 197 Trig 330 H HDL 38 L LDL (Calculated) 93 VLDL 66 CHD Risk 5.18 Magnesium Lvl 1.7 L Phosphorus 3.7 PT 22.1 H INR 1.97 H 11/13 2008 U Amph Scr Negative U Starla Scr Negative U Benzodia Scr Positive U Cannab Scr Negative U Cocaine Scr Negative U Methadone Scr Negative U Opiate Scr Positive U Phencyc Scr Positive U Propoxyph Scr Negative UDS Note See Note 11/13 2008 U Preg Negative UA Color Yellow UA Turbidity Slight UA Spec Grav 1.024 UA pH 6.5 UA Protein 20 UA Glucose Negative UA Ketones Negative UA Bili Negative UA Blood Negative UA Urobilinogen <=1.0 UA Nitrite Negative UA Leuk Est Small UA RBC 1 UA WBC 3 UA Bacteria Occasional UA Mucus Few UA Sq Epi Many UA Amorph Jaimee Occasional UA Hyal Cast 2 11/13 1443 Troponin-T <0.010 Total Protein 6.4 Albumin Lvl 3.0 L Bili Total 0.2 Bili Direct 0.1 Bili Indirect 0.1 Alk Phos 118 AST 24 ALT 40 Globulin 3.4 A/G Ratio 0.9 Total CK 107 Troponin-I <0.02 CK MB 0.5 CK MB Index 0.5 Hgb A1C 5.0 Castillo still necessary (Yes/No): Line still necessary (Sj s/No): Vitals Tmp(F) Pulse BP RR SpO2 FIO2 11/14 07:19 ---- 82 ----- -- 99 --- 11/14 06:24 ---- 84 ----- -- --- --- 11/14 06:00 ---- 88 127/65 -- --- --- 11/14 05:06 ---- --- ----- -- 100 --- 11/14 05:00 ---- 86 118/75 -- 100 --- 24 Hr Tmax: 98.4F (36.89c) at 11/13 16:2 1 Vital Signs are the last 5 in the past 48 hours. Date Wt(kg) Wt(lb) Ht(cm) Ht(in) Method 11/13 (initial) 96.36 212.00 160.02 63.00 Stated I&O Record In Out Bal 11/13 24hr Tot 12 0 12 11/12 24hr Tot 0 0 0 Medications (11) Active Scheduled Meds (3): 11/13/13 atorvastatin 80 mg PO Bedtime 11/14/13 pneumococcal 23-valent vaccine 0.5 ml IM Daily 11/13/13 sodium chloride (Saline Flush 0.9%) 5 ml IVP Q12H Unscheduled Meds: None PRN Meds (5): 11/13/13 acetaminophen 650 mg PO Q4H 11/13/13 diphenhydrAMINE (Benadryl) 25 mg PO Bedtime 11/13/13 midazolam (Versed) 1 mg IV PRN 11/13/13 sodium chloride (Saline Flush 0.9%) 5 mL IVP PRN 11/13/13 sodium chloride (Saline Flush 0.9%) 5 ml IVP PRN One Time Meds (2): 11/13/13 (Deleted) LORazepam (Ativan) 0.5 mg PO ONCE 11/13/13 (Completed) LORazepam (Ativan) 0.5 mg PO ONCE Continuous Infusions (1): 11/13/13 Sodium Chloride 0.9% IV 1,000 mL 1,000 mL 100 ml/hr PHYSICAL EXAM GENERAL: Awake, alert, NAD. HEENT: - Normocephalic and atraumatic; MMM, PERRLA LUNGS - Clear to auscultation bilaterally with no wheezes CV - S1S2 RRR, no m/r/g, equal pulses bilaterally. ABDOMEN - Soft, nontender, nondistended with normoactive BS NEURO- A and O x 3, strength 5/5 diffusely, mild LUE numbnes s, Mrs. Whyte is a 48 y/o womanF with PmHx of HTN, HLD, complex migraine, depression, ischemic stroke (04/2013, residual left FD, LUE weakness) and questionable lupus anticoagulant (on Coumadin, per pt [facility] INR 2.7 on 11/02/13) who presents wit h worsened left FD and LUE weakness. w/o evidence of new CVA on images. now suspect partial seizure vs complex migraine Plan - EEG pending - tylenol benadryl prn - versed for anxiety prn - atorvastatin 20 mg for secondary propylaxis Dispo - plan to transfer to [facility] for further workup, no acute stroke STROKE NEUROLOGY STAFF I have seen and examined the patient. Fu rthermore, I have discussed the case with and reviewed 's note and agree with the history, exam, assessment and plan. See note below for additions and/or exceptions and my findings. I hav e personally viewed the patient's radiographic studies and laboratory tests. Assessment / Plan: 14722 Weakness-728.87 Hypercoagulable state-289.82 Numbness-782.0 48 years old with a previous right MCA ( superior division) ischemic infarct (04/2013) due to antiphospholipid antibody syndrome on coumadin with theraoeutic INR (2.22) with UPTON/N/V, worsening left hand weakness and numbness. MRI brain: encephalomalacia in the right frontal lobe from the previous ischemia, no acute DWI/ADC changes, Flair hyperintensities in the area of the previous stroke (? s/p seizures changes). INR today: 1.97. Current suspected etiology: most probably simple partial SZ. Continue evaluation: EEG as an outpatient, inpatient work up is completed. Treatment: continue coumadin and statin. Given the description of her presentation and the right MCA lesion thus we will start her on Keppra 500 mg po bid even with this being her first episode. *UDS showed: + PCP, we counseled the pat ient on the potential harms to her health specially with her stroke, the current presentation maybe in part due to that speically the HAs. Continue PT/OT/speech therapy evaluation and treatment: no i npatient needs. Hypertension - 401.9 - Continue BP meds. Goal BP:normal parameters. Diabetes / Hyperglycemia - - Continue glucose control with SSI. F/E/N - - Patient tolerating current diet. DVT prophylaxis - - SCDs and BRISSA hose - On coumadin with therapeutic INR. Wilberto Garcia M.D. [facility] Consult[employer] Dept of Neurology [phone] (pager) Extracted from:Title: Clinical Document Author: Damian Baileyrick Date: 11/13/2013 Neurology Stroke H&P Patient Name: Delilah Whyte Date of Admission: 11/13/13 CC: Transfer for possible ischemic stroke HISTORY OF PRESENT ILLNESS: The pt is a 48 yo F with reported PMH HT N, HLD, complex migraine, depression, ischemic stroke (04/2013, residual left FD, LUE weakness) and lupus anticoagulant (on Coumadin, per pt last INR 2.7 on 11/02) who was transferred to [facility] from [facility] for possible ischemic stroke. Per the pt, she was normal on 11/11/13 when she went to bed. She awoke on 11/12/13 around 0800 with a pounding right-sided headache associated with nausea and vom ited several times. She also noticed that her left hand was weak. As the day progressed, her weakness progressed to involving the entire left arm. Around 1999, her called her and noted that s he had slurred speech, so he told her to go to [facility] ER. There, the pt was noted to have left FD and LUE weakness. SBP . CT head showed an old right front al infarct, but no acute abnormalities. On labs, INR 2.19, K+ 2.9. CMP otherwise WNL, CBC WNL, trop I negative, BNP 9. The pt was not a candidate for IV tPA as she presented outside the time window. She was subsequently transferred to [facility] for stroke workup. On my assessment, the pt states that she continues to experience right-sided headache (but it is resolving) and left arm weakness which has n ot significantly changed since she arriv ed to [facility]. Initial NIHSS 7 (see details below). Of note, she was admitted to the [facility] service in 04/2013 for left FD and LUE weakness. She was found to have a right MCA territory infarct. Hypercoag panel was interpreted by the stroke team to b e positive for lupus anticoagulant and t he pt was subsequently aterted on Coumadin for anticoagulation. However, the official read states that lupus anticoagulant is negative. At discharge, the pt was noted to have left FD and 3/5 strength in the LUE. She has also had prior admissions for medication overdoses, notably of methadone, and is known to abuse substances. REVIEW OF SYSTEMS: GEN: no fever, chills, weight loss, fatigue EYES: no blurred vision, double vision CARDIO: no chest pain, palpitations PULM: no shortness of breath, cough GI: no nausea, vomiting, diarrhea, no abd pain : no frequency, dysuria, burning, hematuria NEURO: see HPI SKIN: no rash or lesion ENDOCRINE: No constipation, palpitation or diarrhea or fatig ue MUSCULOSKELETAL: No joint pain PAST MEDICAL HISTORY: HTN, HLD, complex migraine, depression, ischemic stroke (04/2013, residual left FD, LUE weakness), questionable lupus anticoagulant (on Coumadin, per pt last INR 2.7 on 11/02/13) PAST SURGICAL HISTORY: Cholecytectomy, appendectomy, hysterecto my, right ankle surgery, bilateral foot surgeries FAMILY MEDICAL HISTORY: DM (Mom), Stroke (Dad, unknown age) SOCIAL HISTORY: The pt lives with her daughter in [place], [place]. She is from her . She is on disability due to her prior stroke, but is independent at baseline. She smokes 0.5 ppd x17 yrs. She denies alcohol or drug use. MEDICATIONS: Coumadin 7 mg daily Verapamil 300 mg daily Lisinopril 40 mg daily Wellbutrin 200 mg bid Zoloft 100 mg bid Haldol 2 mg bid Nabane 2 mg bid ALLERGIES: Compazine, Depakote, labetalol, NSAIDs, Stadol, v icoprofen, Toradol PHYSICAL EXAM: Vitals Tmp(F) Tmp(C) Ttype B P MAP Pulse RR SpO2 FIO2 ETCO2 11/13 04:06 97.7 36.50 oral 119/85 --- 93 22 100 --- --- 11/13 03:43 97.7 36.50 oral 136/98 --- 99 18 99 --- --- 24 Hr Tmax: 97.7F (36.50c) at 11/13 04:0 6 24 Hr Tmin: 97.7F (36.50c) at 11/13 04:06 36 Hr Tmax: 97.7F (36.50c) at 11/13 04:0 6 36 Hr Tmin: 97.7F (36.50c) at 11/13 04:06 Vital Signs are the last 5 in the past 4 8 hours. Weights are the last 5 in 60 days, plus initial. Date Wt(kg) Wt(lb) Ht(cm) Ht(in) Method BM I BSA 11/13 (initial) 96.36 212.00 160.02 63.00 Stated 37.6 2.07 GENERAL: Awake, alert, NAD. HEENT: - Normocephalic and atraumatic; MMM LUNGS - Clear to auscultation bilaterally with no wheezes CV - S1S2 RRR, no m/r/g, equal pulses bilaterally. ABDOMEN - Soft, nontender, nondistended with normoactive BS NEURO: AAO x _3_, speech dysarthric, but naming /repetition/comprehension intact, PERRL _4_mm brisk EOMI, visual mullen full, mild left FD, left tongue deviation Motor - RUE 5/5 RLE 5/5 LUE 2/5 proximally and distally, LLE 5/5 Tone is decreased in LUE Sensation- decreased to light touch in l eft face and throughout LUE compared to right Coordination: no ataxia noted on right FTN or HTS bilaterall y Gait- defer to PT Reflexes- R Biceps 2+, Brachioradialis 2+, Patellar 2+ L Biceps 2+, Brachioradialis 2+, Patellar 2 + Toes downgoing bilaterally NIHSS TOTAL: ____7____ 1a. Level of Consciousness ____ 0-alert 1-drowsy 2-stupor 1b. LOC Questions month and age ____ 0-both 1-one 2-neither 1c. LOC Commands open/ close the eyes and then to recreation coordinator and release the non- paretic hand ____ 0-both 1-one 2-neither 2. Best Gaze ____ 0-nl 1-partial 2-forced gaze 3. Visual Mullen ____ 0 = No visual loss. 1 = Part ial hemianopia. 2 = Complete hemianopia. 3 = Bilateral hemianopia 4. Facial Palsy __1__ 0-none 1-minor 2-partial 3-complete 0 = No drift; leg holds 30-degree positi on for full 5 seconds. 1 = Drift; leg falls by the end of the 5-second period but does not hit bed. 2 = Some effort vs gravity; leg falls by 5 seconds, some eff ort vs gravity. 3 = No effort vs gravit y; leg falls to bed immediately. 4 = No movement. 5-8. Motor ____R. arm __3__L. arm ____R. leg __1__L. leg 9. Limb Ataxia ____ 0 absent 1 - 1limb 2 - 2 limbs 10. Sensory __1__ 0-nl 1-partial loss 2-dense loss 11. Best Language ____ 0-nl 1-mild/mod 2-severe 3-mute 12. Dysarthria __1__ 0-nl 1-mild/mod 2-severe x-untestabl e 13. Extinction and Inattention (formerly Neglect): ____ 0-none 1-partial 2-complete EKG (OSH): Sinus tachycardia Imaging: CT Head (11/13/13): Old right frontal infarct, no acute abno rmalities Labs: OSH labs reviewed, notable findings per HPI 11/13 0429 Glucose Lvl 81 BUN 12 Creatinine Lvl 0.9 Sodium Lvl 141 Potassium Lvl 4.1 Chloride Lvl 106 CO2 26 AGAP 13.1 Calcium Lvl 8.6 eGFR 75 Total CK 108 Troponin-I <0.02 CK MB 0.6 CK MB Index 0.6 WBC 11.4 H RBC 4.35 Hgb 12.3 Hct 36.4 MCV 83.7 MCH 28.2 MCHC 33.7 RDW 17.1 H Platelet 486 H MPV 7.0 L Segs 41.0 L Monocytes 4.1 Lymphocytes 53.5 H Eosinophils 1.4 Basophils 0.0 Segs-Bands # 4.7 Lymphocytes # 6.0 H Monocytes # 0.5 Eosinophils # 0.2 Basophils # 0.0 PT 24.2 H INR 2.22 H PTT 39.1 H 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 Exam is consistent with left hemiparesis. CT head shows an old right frontal infarct, but no acute abnormalities. Ddx includes new isc hemic stroke, complex migraine, less lik arthur venous sinus thrombosis or seizure. Other stroke mimics should be considered, including nonorganic etiologies. The pt was not a candidate for IV tPA as she presented to OSH outside the time window. PLAN: - Admit to stroke unit under Dr. Garcia - SBP goal <220/110, hold home BP meds for now - Start ASA 325 mg daily for secondary s troke prevention, will restart anticoagulation if MRI shows no infarct or small infarct - Start Lipitor 80 mg PO daily, adjust for goal LDL <70 and LFTs - Check HbA1C, start SSI - MRI brain without contrast - CTA head/neck - Transthoracic echo - Start SQ heparin for DVT ppx - Restart psych meds - PT/OT/ST evaluations Damian Bailey MD Neuro PGY-3 STROKE NEUROLOGY STAFF I have seen and examined the patient. Fu rthermore, I have discussed the case with and reviewed 's note and agree with the history, exam, assessment and plan. See note below for additions a nd/or exceptions and my findings. I have personally viewed the patient's radiographic studies and laboratory tests. Assessment / Plan: 64818 Weakness-728.87 Hypercoagulable state-289.82 Numbness-782.0 48 years old with a previous right MCA ( superior division) ischemic infarct (04/2013) due to antiphospholipid antibody syndrome on coumadin with theraoeutic INR (2.22) with [place]PTON/N/V, worsening left hand weakness and numbness. MRI brain: encephalomalacia in the right frontal lobe from the previous ischemia, no acute DWI/ADC changes, Flair hyperintensities in the area of the previous stroke (? s/p seizures changes). Current suspected etiology: simple partial SZ vs complicated migraine. Continue evaluation: EEG, cardiac teleme try, laboratory tests, follow-up reports from neuroimaging. Treatment: continue coumadin and statin. Continue PT/OT/speech therapy evaluation and treatment. Hypertension - 401.9 - Continue BP meds. Goal BP:normal parameters. Diabetes / Hyperglycemia - - Continue glucose control with SSI. F/E/N - - Patient tolerating current diet. DVT prophylaxis - - SCDs and BRISSA hose - On coumadin with therapeutic INR. I have talked the patient and available family in detail about the warning signs of stroke; the importance of their early recognition and activation of EMS. The stroke risk factors have also been clearl y identified and communicated to the pat ient. The importance of taking prescribed medication for secondary stroke prevention and being regular in follow up appointments has also been emphasized. Wilberto Garcia M.D. Lean Consultant Dept of Neurology [phone] (pager) Plan of Care No Data Provided for This Section Social History Social History Date Source Social History TypeResponse 03/17/2015 [facility] Substance Abuse Use: None. Alcohol Past, Type Beer. Alcohol use interferes with work or home: No. Drinks more than intended: No. Others hurt by drinking: No. Ready to change: No. Household alcohol concerns: No. Smoking Status Former smoker; Type: Cigarettes; Previou s treatment: None; Ready to change: Yes; Concerns about tobacco use in household: Yes; Exposure to Tobacco Smoke self; Cigarette Smoking Last 365 Days No; Reg Smo arvin Cessation Counseling Yes; Tobacco u se per day: 12; Started [age] age: 39.0; 1, 2 entered on: 03/10/19 1Stopped smoking in [id number] 6-12 cigarettes per day Family History No Data Provided for This Section Advance Directives No Data Provided for This Section Functional Status No Data Provided for This Section
--- OUTSIDE RECORDS SUMMARY | 2020-01-20 13:58 | XMS REPORT | Summary of Care ---
:1965 Author Organization [facility] Address [address] [place] [address] Care Team Providers Name Role Phone James Burton Pato Primary Care Provider Reason for Visit Reason Comments Follow-up (Routine) Status Reason Specialty Diagnoses / Referred By Referred To Procedures Contact Contact Closed IM-CARDIOVASCULAR Diagnoses NSTEMI (non-ST elevated myocardial infarction) Bacteremia due to Enterobacter species Lexi Ovalle MD DISEASE / Procedures Discharge Follow-Up: Specialty Service IM-CARDIOVASCULAR DISEASE; 4-[address] Weeks [address] [place] [address] Encounter Details Date Type Department Care Team Description 11/04/2019 Telemedicine Visit [facility] Ludwig Escobar Coronar y artery disease involving southern ute coronary artery of southern ute heart with angina pectoris (Primary Dx); Cardiology- [facility] [place] NSTEMI (non-ST elevated myocardial infar ction); [place] [address] [facility] Bacteremia due to Enterobacter species; [address], [address] [place] [id number] Allergies Active Allergy Reactions Severity Noted Date Comments Prochlorperazine Edisylate Nausea and/or 08/21/2005 Vomiting Divalproex Sodium Anxiety 08/21/2005 Gabapentin Unknown - See 01/02/2008 Blurred vision comments Nsaids (Non-Steroidal Nausea and/or 06/15/2015 Anti-Inflammatory Drug) Vomiting Butorphanol Tartrate Rash 08/21/2005 Ketorolac Tromethamine Rash 08/21/2005 documented as of this encounter (statuses as of 11/08/2019) Medications Medication Sig Dispensed Refills Start End Date Status Date atorvastatin 80 mg Take 1 tablet 30 tablet 3 Active tabletIndications: by mouth at 0 S/P CABG (coronary bedtime. 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 SERTraline 100 mg Take 1 tablet 0 Active tablet by mouth daily. 0 buPROPion SR 100 Take 1 tablet 60 tablet 0 Active mg SR by mouth 2 0 tabletIndications: (two) times NSTEMI (non-ST daily. elevated myocardial infarction), Bacteremia due to Enterobacter species apixaban 5 mg Take 1 tablet 60 tablet 1 Ac tive tabletIndications: by mouth 2 0 deep vein (two) times thrombosis daily. prevention Indications: deep vein thrombosis prevention nitroglycerin 0.[address] Place 1 tablet 1 Bottle 0 0 Active mg sublingual under the 0 20 tabletIndications: tongue every 5 NSTEMI (non-ST (five) minutes elevated as needed for myocardial Chest pain for infarction) up to 30 days. zolpidem (AMBIEN) Take 10 mg by 0 Active 10 mg tablet mouth at bedtime as needed for Insomnia. promethazine HCl Take 25 mg by 0 Active (PHENERGAN ORAL) mouth as needed for Nausea and Vomiting (N/V). topiramate 50 mg Take 50 mg by 0 Active tablet mouth 2 (two) 0 times daily. metoprolol Take 1 tablet 60 tablet 0 Activ e tartrate 50 mg by mouth 2 0 tabletIndications: (two) times NSTEMI (non-ST daily. elevated myocardial infarction), Bacteremia due to Enterobacter species colchicine 0.6 mg Take 1 capsule 60 capsule 0 Active CapIndications: by mouth 2 0 Pericardial (two) times effusion daily. furosemide 40 mg Take 1 tablet 30 tablet 2 Active tabletIndications: by mouth as 0 Coronary artery needed (Daily disease involving PRN based on southern ute coronary leg swelling artery of southern ute and body heart with angina weight) for up pectoris, NSTEMI to 30 doses. (non-ST elevated myocardial infarction) KCL 20 mEq Take 1 tablet 30 tablet 2 Activ e tabletIndications: by mouth as 0 Coronary artery needed disease involving (Recommend to southern ute coronary take KCL if artery of southern ute taking lasix.) heart with angina for up to 30 pectoris, NSTEMI doses. (non-ST elevated myocardial infarction) metoprolol Take 1 tablet 60 tablet 0 11/07/19 Disco ntinued tartrate 50 mg by mouth 2 0 20 (Reo rder) tabletIndications: (two) times NSTEMI (non-ST daily. elevated myocardial infarction), Bacteremia due to Enterobacter species colchicine 0.6 mg Take 1 capsule 60 capsule 2 Discontinued CapIndications: by mouth 2 0 20 (Re order) Pericardial (two) times effusion daily for 30 days. furosemide 40 mg Take 40 mg by 0 11/05/19 Discontinued tablet mouth as 0 20 (Reorder) needed. documented as of this encounter (statuses as of 11/08/2019) Active Problems Problem Noted Date Pericardial effusion 10/25/2019 Arm DVT (deep venous thromboembolism), acute, left 04/2020 Chest pain 10/24/2019 NSTEMI (non-ST elevated myocardial infarction) 020 Left sided numbness 09/03/2019 S/P CABG (coronary artery bypass graft) 06/30/2019 Leukocytosis 06/16/2019 Tachycardia 06/15/2019 Coronary artery disease involving southern ute coronary herson ry of southern ute heart 06/08/2019 with angina pectoris Overview: Added automatically from request for ilan dorothy [id number] Sepsis 05/03/2019 Obesity (BMI 30-39.9) 05/03/2019 Other chest pain 05/03/2019 Septic shock 05/03/2019 Troponin I above reference range 05/03/2019 ISADORA (acute kidney injury) 12/23/2018 Antiphospholipid syndrome 12/22/2018 History of CVA (cerebrovascular accident) 12/22/2018 Overview: 2011 Right ovarian cyst 12/22/2018 Overview: 12/02/18 - CT scan revealed a 2 cm right ovarian cyst Hypotension 12/22/2018 Essential hypertension 12/08/2018 History of arterial ischemic stroke 12/08/2018 Hypokalemia 12/08/2018 Abnormal albumin 12/08/2018 Abnormal liver function 12/08/2018 Other hyperlipidemia 12/08/2018 Anasarca 12/07/2018 Morbid obesity with body mass index of 40.0-49.9 12/07 Chronic diastolic HF (heart failure) 12/07/2018 documented as of this encounter (statuses as of 11/08/2019) Immunizations Name Administration Dates Next Due Influenza Virus Vaccine Quad .5 mL IM 6+ MO 10/18/2019, 11/17 Pneumococcal Polysaccharide, PPSV23 (PNEUMOVAX) 12/10/2018 documented as of this encounter Social History Tobacco Use Types Packs/Day Years Used Date Former Smoker Cigarettes 1 10 Quit: 2014 Smokeless Tobacco: Never Used Alcohol Use Drinks/Week oz/Week Comments No 0 Standard drinks or equivalent 0.0 Education Answer Date Recorded What is the highest level of school you have GED or equivale nt 10/10/2019 completed or the highest degree you have received? Financial Resource Strain Answer Date Recorded How hard is it for you to pay for the very basics like food, Hard 10/24/2019 housing, medical care, and heating? Food Insecurity Answer Date Recorded Within the past 12 months, you worried that your food Someti mes true 10/10/2019 would run out before you got money to buy more. Within the past 12 months, the food you bought just Sometime s true 10/10/2019 didn't last and you didn't have money to get more. Transportation Needs Answer Date Recorded In the past 12 months, has lack of transportation kept you f rom No 10/10/2019 medical appointments or from getting medications? In the past 12 months, has lack of transportation kept you f rom No 10/10/2019 meetings, work, or getting things needed for daily living? Sex Assigned at Date Recorded Not on file Job Start Date Occupation Industry Not on file Not on file Not on file Travel History Travel Start Travel End No recent travel history available. documented as of this encounter Last Filed Vital Signs Not on filedocumented in this encounter Progress Notes Ludwig Escobar MD - 11/04/2019 2:30 PM CDT [facility] Cardiology Consult Note Patient: Delilah Whyte Date of : 1965 Primary Care Physician: James Burton CHIEF COMPLAINT: Chief Complaint Patient presents with Follow-up History of Present Illness: Delilah Whyte is a 54 year old female presents to tele visit clinic for follow up for CAD/CABG. History from patient herself. Verbal consent obtained from Delilah Whyte for telehealth services provided below. Communication with patient was conducted via Telephone. Location of Patient: Home Location of Provider: Clinic Since the last OV, she was admitted 09/2019 for chest pain. Noted to have NSTEMI. But had low platelets, unsure the reason. Follows Dr Gardiner hematology. Noted to have fever which was Rx medically. Noted to have DVT LUE: which was started on Heparin and changed to Eliquis with plan for 3 months and may need longer based on hematology assessment. 10/2019: admitted for pleuritic chest pain, CTA showed small pericardial effusion, Echo also shows small pericardial effusion. Eliquis was reduced to 5 BiD, ASA stopped in view of ? hemorraghic and started on colchicine. Reports she haven't started colchicine yet. BRO NYHA Class II still. No history of exertional chest pain. No chest pain at rest. No PND or orthopnea. No pedal edema. No exertional palpitations or palpitations at rest. No syncopal attacks. 06/2019: had CABG On 2019: noted to have CVA/slurred speech and left facial drop. Was sent to [facility] morbid obesity, HTN, HLD, stroke, CAD and KRISTOPHER not on C-PAP. On 11/2018: Admitted for new onset leg edema, dyspnea on exertion and orthopnea. She was in [facility] a few times for various issues but mainly GI virus and dehydration. Stated that she received a lot of fluids in the hospital. Before hospital discharge she developed some signs of overload. This has progressed since discharge. BNP is elevated. Rx for acute on chronic diastolic HF. On 12/2018: was admitted for hypotension/ISADORA and hyperkalemia: Resolved with med adjustments Previous Cardiac Studies: IMAGING - I personally reviewed, pertinent results as below: Cath 05/2019 DIAGNOSTIC IMPRESSION: 1. Severe LMdisease 2. Mild to moderate PLB 3. Normal CO/CI 4. Normal right sided filling pressures 06/30/2020 GRAFTS: MENENDEZ to LAD, off-pump FINDINGS: Good conduit and target ECG Normal sinus rhythm Right bundle branch block Abnormal ECG When compared with ECG of 22-DEC-2018 17:08, No significant change has occurred Echo 05/2019 Interpretation Summary The study was diagnostic quality. A complete two-dimensional transthoracic echocardiogram was performed (2D, M-mode, Doppler and color flow Doppler). Compared to prior study, there is no significant change. There is mild concentric left ventricular hypertrophy. Ejection Fraction = >65%. Diastolic function is normal . The left ventricle is hyperdynamic. The right ventricle is normal in size and function. Right ventricular systolic pressure is 20-25 mmHg. CTA Neck CONCLUSIONS: 1. Minimal atherosclerosis in the proximal right internal carotid and a small calcified plaque in the tortuous proximal left internal carotid arteries. No hemodynamically significant disease. 2. Mild atherosclerosis in left subclavian artery. Echo 08/2019 Interpretation Summary The study was diagnostic quality. A two-dimensional transthoracic echocardiogram with M-mode and Doppler was performed. Contrast injection was performed. Compared to prior study, changes are noted. Left ventricular systolic function is normal. Ejection Fraction = 60-65%. Diastolic function is normal. Injection of agitated saline contrast documented a significant right to left interatrial shunt. There is mild to moderate tricuspid regurgitation. Right ventricular systolic pressure is elevated at 50-55 mmHg. Would consider a transesophageal echocardiogram if clinically indicated to better aassess intracardiac shunting. CT Chest 10/2019 IMPRESSION Impression: 1. No evidence of pulmonary embolus. 2. No pulmonary mass or consolidation. No pleural effusion. 3. Small, likely hemorrhagic pericardial effusion. 4. Changes of prior median sternotomy and CABG Echo 10/2019 Interpretation Summary A two-dimensional transthoracic echocardiogram with M-mode and Doppler was performed. The study was technically adequate. Compared to prior study, changes are noted. Left ventricular systolic function is normal. Ejection Fraction = 60-65%. The left ventricular wall motion is normal. Right ventricular systolic pressure is elevated at 30-35 mmHg. Small pericardial effusion. There are no echocardiographic indications of cardiac tamponade. 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 06/08/2019 Depression Encephalitis 2015 Essential hypertension, benign Former smoker History of CVA (cerebrovascular accident) left side numbness, L sided facial droop Hyperlipidemia Morbid obesity Posttraumatic stress disorder Right ovarian cyst Seizures 2015 encephalitis Unspecified migraine Past Surgical History: Procedure Laterality Date ANKLE ARTHRODESIS Right 1997 APPENDECTOMY CHOLECYSTECTOMY CORONARY ARTERY BYPASS GRAFT N/A 06/30/2019 Surgeon: Noah Bolton Jr., MD; Location: [facility] FOOT ORIF (SHX) Bilateral HYSTERECTOMY Family History Problem Relation Age of Onset Diabetes Mother Hypertension Mother Diabetes Father Hypertension Father Stroke Father Hypertension Brother SOCIAL HISTORY Social History Socioeconomic History Marital status: Spouse name: Not on file Number of children: Not on file Years of education: Not on file Highest education level: GED or equivalent Occupational History Not on file Social Needs Financial resource strain: Hard Food insecurity: Worry: Sometimes true Inability: Sometimes true Transportation needs: Medical: No Non-medical: No Tobacco Use Smoking status: Former Smoker Packs/day: 1.00 Years: 10.00 Pack years: 10.00 Types: Cigarettes Last attempt to quit: 2014 Years since quittin.2 Smokeless tobacco: Never Used Substance and Sexual Activity Alcohol use: No Alcohol/week: 0.0 standard drinks Drug use: No Sexual activity: Never Lifestyle Physical activity: Days per week: Not on file Minutes per session: Not on file Stress: Not on file Relationships Social connections: Talks on phone: Not on file Gets together: Not on file Attends adventist service: Not on file Active member of club or organization: Not on file Attends meetings of clubs or organizations: Not on file Relationship status: Not on file Intimate partner violence: Fear of current or ex partner: Not on file Emotionally abused: Not on file Physically abused: Not on file Forced sexual activity: Not on file Other Topics Concern Not on file Social History Narrative Lives in [place] with and Kids ALLERGIES Allergies Allergen Reactions Compazine [Prochlorperazine Edisylate] Nausea and/or Vomiting Depakote [Divalproex Sodium] Anxiety Neurontin [Gabapentin] Unknown - See comments Blurred vision Nsaids (Non-Steroidal Anti-Inflammatory Drug) Nausea and/or Vomiting Stadol [Butorphanol Tartrate] Rash Toradol [Ketorolac Tromethamine] Rash MEDICATIONS Patient's Medications START taking these medications CEPHALEXIN (KEFLEX) 500 MG CAPSULE Take 1 capsule by mouth 3 (three) times daily for 7 days. CONTINUE taking these medications which have NOT CHANGED ASPIRIN 81 MG CHEWABLE TABLET Take 81 mg by mouth daily. ATORVASTATIN 80 MG TABLET Take 1 tablet by mouth at bedtime. BUPROPION (WELLBUTRIN SR) 200 MG 12 HR TABLET Take 200 mg by mouth 2 (two) times daily. DOCUSATE 100 MG CAPSULE Take 1 capsule by mouth daily. FERROUS SULFATE 325 MG (65 MG IRON) TABLET Take 1 tablet by mouth 2 (two) times daily. FUROSEMIDE 40 MG TABLET TAKE ONE TABLET BY MOUTH DAILY NEEDED TAKE IF SBP>125 AND DBP>80) LORAZEPAM 2 MG TABLET Take 1 tablet by mouth 2 (two) times daily. PROMETHAZINE 25 MG TABLET Take 25 mg by mouth 2 (two) times daily as needed for Nausea and Vomiting (N/V). SERTRALINE (ZOLOFT) 100 MG TABLET SPIRONOLACTONE 25 MG TABLET Take 1 tablet by mouth daily. TOPIRAMATE (TOPAMAX) 50 MG TABLET ZOLPIDEM (AMBIEN) 10 MG TABLET Take 10 mg by mouth at bedtime as needed for Insomnia. START taking Modified Medications as Prescribed Modified Medication Previous Medication METOPROLOL TARTRATE 25 MG TABLET metoprolol tartrate 25 mg tablet Take 1 tablet by mouth 2 (two) times daily. Take 0.5 tablets by mouth every 12 (twelve) hours. STOP taking these medications ACETAMINOPHEN-CODEINE (TYLENOL-CODEINE #3) 300-30 MG TABLET Take 1 tablet by mouth 2 (two) timesdaily as needed (pain). BUSPIRONE 10 MG TABLET FUROSEMIDE 20 MG TABLET Take 1 tablet by mouth every morning and evening. REVIEW OF SYSTEMS: Comprehensive 10-system review was conducted and were negative except for what's noted in the HPI. The following systems were reviewed: Constitutional, cardiovascular, respiratory, gastrointestinal, genitourinary, musculoskeletal, neurologic, psychiatric, endocrinological, and hematological. PHYSICAL EXAMINATION: There were no vitals filed for this visit. TELEHEALTH EXAM Full exam couldn't be done since it TELE VISIT. Constitutional: Alert and in no distress Resp: Breathing comfortably Neuro: answers questions appropriately LABS - Reviewed pertinent labs as below: CBC BMP PT/INR WBC x10^3 (/CMM) Date Value 01/02/2008 10.5 (H) WBC (10*3/L) Date Value 10/25/2019 13.14 (H) NA Date Value 10/25/2019 134 mmol/L (L) 01/05/2008 138 MMOL/L No results found for: PT PLT x10^3 (/CMM) Date Value 01/02/2008 413 (H) PLT (10*3/L) Date Value 10/25/2019 665 (H) K Date Value 10/25/2019 3.3 mmol/L (L) 01/05/2008 3.6 MMOL/L INR (no units) Date Value 10/11/2019 1.2 HGB Date Value 10/25/2019 10.1 g/dL (L) 01/02/2008 14.2 G/DL BUN Date Value 10/25/2019 13 mg/dL 01/05/2008 9 MG/DL HCT (%) Date Value 10/25/2019 32.5 (L) 01/02/2008 42.0 CREATININE Date Value 10/25/2019 0.70 mg/dL 01/05/2008 0.58 MG/DL (L) LIPID PROFILE GLUCOSE Date Value 10/25/2019 123 mg/dL (H) 01/05/2008 90 MG/DL CHOL Date Value 09/03/2019 179 mg/dL 01/05/2008 266 MG/DL (H) TSH LDL CHOL Date Value 09/03/2019 119 mg/dL 01/05/2008 190 MG/DL (H) TSH (mIU/L) Date Value 10/09/2019 3.69 CARDIAC ENZYMES HDL CHOL (MG/DL) Date Value 01/05/2008 49 HDL (mg/dL) Date Value 09/03/2019 24 (L) CK (U/L) Date Value 06/15/2019 29 (L) 08/21/2005 40 TRIG Date Value 09/03/2019 182 mg/dL (H) 01/05/2008 133 MG/DL LFTs CK-MB (ng/mL) Date Value 08/21/2005 .8 AST(SGOT) (U/L) Date Value 10/24/2019 33 TROPONIN I (ng/mL) Date Value 10/25/2019 0.005 08/21/2005 0.03 ALT(SGPT) (U/L) Date Value 05/04/2019 29 ALTv (U/L) Date Value 10/24/2019 30 No results found for: BNP LDL CHOL Date Value 09/03/2019 119 mg/dL 01/05/2008 190 MG/DL (H) Recent Labs 10/25/19 0452 TROPNI 0.005 NT-proBNP (pg/mL) Date Value 10/25/2019 177 (H) LDL CHOL Date Value 09/03/2019 119 mg/dL 01/05/2008 190 MG/DL (H) ASSESSMENT/PLAN 1. 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 NSTEMI (non-ST elevated myocardial infarction) metoprolol tartrate 50 mg tablet furosemide 40 mg tablet KCL 20 mEq tablet 3. Bacteremia due to Enterobacter species metoprolol tartrate 50 mg tablet 4. Pericardial effusion colchicine 0.6 mg Cap Two prior admission/DC since last OV was reviewed in detail. CAD s/p CABG 06/2019: On Lopresor 50 mg BiD/lipitor 80 mg daily/SL nitro PRN Off ASA 81 mg temp for now. Pericardial effusion: Small Possible hemorraghic by CT Off ASA 81 mg. Only on Eliquis 5 mg BiD. Rpt echo after next OV. Recommend to restart Colchicine 0.6 mg BiD. DVT LUE 10/15/2019: On Eliquis 5 BiD Continue for at least 3 months. Plan for rpt venous USG after next OV. Recommend to follow up with Dr Gardiner (kidney puller). Chronic HFpEF--Likely due to morbid obesity, underlying KRISTOPHER and maybe hypoventilation syndrome. Lasix 40/KCL 20 PRN based on weight. Fluid restriction/salt restriction recommended. Daily weights. HTN: Stable on lopressor 50 mg BiD. Home BP log recommended. Cross check his BP machine. Appropriate ways to check home BP discussed. Goals BP < 130/80 stressed. Explained if BP > 130/80, adviced to send us the log. Lifestyle modifications stressed. Dyslipidemia: on lipitor 80 mg daily. H/o stroke: Recommend to follow up with neurology. Continue ASA/lipitor. Follow up in 6-8 weeks. Refills done. I spent at least 10 mintues total time with the patient over the phone for history taking, counseling and reviewing the results of the testing and risks and benefits of the treatment, treatment optionsand prevention with the patient. Remaining 15 minutes was spent on chart review, order entries. Patient's diease process and its evaluation and treatment were discussed. We discussed each of for cardio vascular-related problems and discussed long-term goals and expectations for the each problem.I reviewed each of the cardiac medications in detail. Reviewed the medication with patient in detail recommended to continue taking the current medications without further changes Recommended goal BP < 130/80 consistently, LDL << 70, HbA1c < 6.5. Recommended, explained and stressed the importance of healthy eating habits and exercises and lifestyle modifications Follow up as planned is predicated on symptoms stability and/or acceptable test results. Patient is urged to call in sooner should problems arise or if there is no improvement in cardiac symptoms. ER warning signs and symptoms explained and patient verbalized understanding. My diagnostic impression and treatment plans were discussed at length with the patient and family member present. All side effects as well as drug-drug interactions and risks discussed at length. Ample opportunity was offered and encouraged to ask questions during this visit and patient appreciated the answers given by me and verbzalised statisfcation in the answers given. We reviewed the [place] [employer] recommendations for reduction of overall cardio vascular risk. The importance of monitoring the blood pressure carefully both at home on regular basis along with other physicians appointment was stressed in detail. In addition we discussed target LDL levels for optimal risk reduction. It was advised that to daily physical activity be performed with 30 minutes of sustained exercise for both cardio vascular fitness and improvement for generalized medical health and well-being. Thank you for allowing us to participate in the care of Delilah Whyte. If you have any questions or concerns please feel free to call our office at [phone]. I would be happy to be of further assistance for Delilah Whyte wellbeing. Rafy Escobar MD [facility], Division of Cardiology [facility] documented in this encounter Plan of Treatment Health Maintenance Due Date Last Done Comments DTaP,Tdap,and Td Vaccines (1 - Tdap) 1975 PAP SMEAR 1985 Breast Cancer Screening (MAMMOGRAM) 2004 COLONOSCOPY 2014 Zoster Recombinant Vaccine (SHINGRIX) (1 2014 of 2) LUNG CANCER SCREEN: Recommended for age 1208/01/2019 55-80 with 30 + pack year history PNEUMOCOCCAL 0-64 YEARS COMBINED SERIES Completed 12/11/19 19 HEPATITIS C (HCV) SCREEN Completed 10/11/2019 INFLUENZA VACCINE Completed 10/18/2019, 12/10/2018 documented as of this encounter Implants Implanted Type Area Enterprise Analyst Device Shelf Expiration Model / Identifier Date Serial / Lot Screw SCREW Right: Ankle Screw SCREW Left: Foot documented as of this encounter Results Not on filedocumented in this encounter Visit Diagnoses Diagnosis 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 [place] [id number] MANAGED MEDICAID [place], [place] documented as of this encounter
--- OUTSIDE RECORDS SUMMARY | 2020-01-20 13:58 | XMS REPORT | Summary of Care ---
:1965 Author Organization [facility] Address [address] [place] [address] Care Team Providers Name Role Phone James Burton Primary Care Provider Reason for Visit Reason Comments Refill Request Encounter Details Date Type Department Care Team Description 11/05/2019 Refill [facility] [place] [facility]- Ludwig Escobar MD Refill Request [address] [facility], [address] [facility] [address] [place] [address] [place] [address] [phone] Allergies Active Allergy Reactions Severity Noted Date Comments Prochlorperazine Edisylate Nausea and/or 08/21/2005 Vomiting Divalproex Sodium Anxiety 08/21/2005 Gabapentin Unknown - See 01/02/2008 Blurred vision comments Nsaids (Non-Steroidal Nausea and/or 06/15/2015 Anti-Inflammatory Drug) Vomiting Butorphanol Tartrate Rash 08/21/2005 Ketorolac Tromethamine Rash 08/21/2005 documented as of this encounter (statuses as of 11/10/2019) Medications Medication Sig Dispensed Refills Start End Date Status Date atorvastatin 80 mg Take 1 tablet 30 tablet 3 Active tabletIndications: by mouth at 0 S/P CABG (coronary bedtime. artery bypass graft), Coronary artery disease involving [place] coronary artery of [place] heart with angina pectoris LORazepam 2 mg [...] myocardial infarction), Bacteremia due to Enterobacter species nitroglycerin 0.4 Place 1 tablet 1 Bottle [...] tablet mouth 2 (two) 0 times daily. apixaban 5 mg Take 1 tablet 60 tablet 0 Ac tive tabletIndications: by mouth 2 0 deep vein (two) times thrombosis daily. prevention Indications: deep vein thrombosis prevention metoprolol Take 1 tablet 60 tablet 0 Activ e tartrate 50 mg by mouth 2 0 tabletIndications: (two) times NSTEMI (non-ST daily. elevated myocardial infarction), Bacteremia due to Enterobacter species metoprolol Take 1 tablet 60 tablet 0 11/07/19 Disco ntinued tartrate 50 mg by mouth 2 0 20 (Reo rder) tabletIndications: (two) times NSTEMI (non-ST daily. elevated myocardial infarction), Bacteremia due to Enterobacter species apixaban 5 mg Take 1 tablet 60 tablet 1 11/10/19 Di scontinued tabletIndications: by mouth 2 0 20 (Reorder) deep vein (two) times thrombosis daily. prevention Indications: deep vein thrombosis prevention colchicine 0.6 mg Take 1 capsule 60 capsule 2 Discontinued CapIndications: by mouth 2 0 20 (Re order) Pericardial (two) times effusion daily for 30 days. furosemide 40 mg Take 40 mg by 0 11/05/19 Discontinued tablet mouth as 0 20 (Reorder) needed. furosemide 40 mg Take 1 tablet 30 tablet 1 11/07/19 Discontinued tablet by mouth as 0 20 needed (based on weight). documented as of this encounter (statuses as of 11/10/2019) Active Problems Problem Noted Date Pericardial effusion 10/25/2019 Arm DVT (deep venous thromboembolism), acute, left 04/2020 Chest pain 10/24/2019 NSTEMI (non-ST elevated myocardial infarction) 020 Left sided numbness 09/03/2019 S/P CABG (coronary artery bypass graft) 06/30/2019 Leukocytosis 06/16/2019 Tachycardia 06/15/2019 Coronary artery disease involving [place] coronary herson ry of [place] heart 06/08/2019 with angina pectoris Overview: Added automatically from request for ilan de la cruz [id number] Sepsis 05/03/2019 Obesity (BMI 30-39.9) 05/03/2019 Other [...] as of this encounter (statuses as of 11/10/2019) Immunizations Name Administration Dates Next Due Influenza [...] Signs Not on filedocumented in this encounter Plan of Treatment Health [...] of this encounter Implants Implanted Type Area Information Clerk Cashier Device Shelf Expiration Model / Identifier Date Serial / Lot Screw SCREW Right: Ankle Screw SCREW Left: Foot documented as of this encounter Results Not on filedocumented in this encounter Visit Diagnoses Diagnosis NSTEMI (non-ST elevated myocardial infar ction) Acute myocardial infarction, subendocard ial infarction, episode of care unspecified Bacteremia due to Enterobacter species documented in this encounter Insurance Payer Benefit Plan / Subscriber ID Effective Phone Address T ype Group Dates KARMA PARADA xxxxxxxxx 2015-Benjy [address]ke[address] [facility] [place] [id number] MANAGED MEDICAID [place], [place]ICA[place] documented as of this encounter
--- OUTSIDE RECORDS SUMMARY | 2020-01-20 13:58 | XMS REPORT | Continuity of Care Document ---
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 Dosing Weight 110.3, kg, Start date: 10/31/14 17:00:00, Duration: 30 day, Stop date: 11/30/14 9:00:00 Xarelto 2014-0 No 20 mg, MH 3-16 Route: PO, [place] 22:00: Drug form: Medical 00 TAB, QPM, Center Dosing Weight 110.3, kg, Start date: 10/31/14 17:00:00, Duration: 30 day, Stop date: 11/29/14 17:00:00 tramadol 2014- No 50 mg, 1 hydrochlori 3-16 tab, [place] de 50 MG 21:37: Route: PO, Med ical Oral Tablet 00 Drug form: Ce nter [Ultram] TAB, Q8H, Dosing Weight 110.3, kg, PRN Pain Score 4-6, Start date: 10/31/14 16:37:00, Duration: 30 day, Stop date: 11/30/14 16:36:00 Phenergan No 25 mg, 3-16 Route: PO, [place] 21:36: Drug form: Medical 00 TAB, Q6H, Center Dosing Weight 110.3, kg, PRN as needed for nausea/vom iting, Start date: 10/31/14 16:36:00, Duration: 30 day, Stop date: 11/30/14 16:35:00 rivaroxaban No 20 mg = 1 M H 20 MG Oral 3-16 tab, PO, [place] Tablet 21:32: QPM, # 30 Medica l [Xarelto] 00 tab, 6 Center Refill(s) Metronidazo No 500 mg = 1 le 500 MG 3-16 tab, PO, [place] Oral Tablet 21:32: Q8H, # 21 M edical 00 tab, 0 Center Refill(s) levofloxaci No 500 mg = 1 n 500 mg 3-16 tab, PO, [place] oral tablet 21:32: Daily, # 7 Medical 00 tab, 0 Center Refill(s) Wellbutrin No Notes: 3-16 (Same As: [place] 02:00: Wellbutrin Medical 00 ) Center Topamax No Notes: 3-16 (Same As: [place] 02:00: Topamax) Medical 00 "Do Not Center Crush" sennosides, No Notes: LONG-TERM 3-16 (Same as: [place] 02:00: Senokot) Medical 00 Center metoprolol No Notes: tartrate 3-15 (Same as: [place] 16:00: Lopressor) Medical 00 12.5mg=1/ Center 4 X 50 mg tab. Ondansetron No Notes: 3-15 (Same as: [place] 15:33: Zofran) Medical 00 Center Dexamethaso No Notes: ne 3-15 Concentrat [place] 15:33: ion: Medical 00 4mg/ml Center Naloxone No Notes: 3-15 Same as [place] 15:33: Narcan Medical 00 Center Flumazenil No Notes: 3-15 (Same as: [place] 15:33: Romazicon) Medical 00 Center Hydromorpho No Notes: ne 3-15 Same as: [place] 15:33: Dilaudid Medical 00 Center Metoprolol No Notes: 3-15 (Same as: [place] 15:33: Lopressor) Medical Push over Center 2 minutes Labetalol No 10 mg, 2 MH 3-15 mL, Route: [place] 15:33: IVP, Drug Medical form: INJ, Center Q5Min, Dosing Weight 110.3, kg, PRN Elevated BP, Start date: 10/30/14 10:33:00, Duration: 5 doses or times, Stop date: Limited # of times Vancomycin No 2000 mg: 3-15 infuse [place] 14:00: over 2.5 Medical 00 hours Center Vancomycin FOR IV SET ONLY potassium No Notes: chloride 3-15 (Same as: [place] 10:00: Potassium Medical 00 Chloride) [place] magnesium No 2 gm, 50 sulfate 3-15 mL, Route: [place] 10:00: IVPB, Drug Medical form: INJ, Center ONCE, Start date: 10/30/14 5:00:00, Stop date: 10/30/14 5:00:00 Lisinopril No Notes: 3-14 Shake well [place] 23:00: before Medical 00 use. Center Refrigerat e For Oral Use Only. Compound ed Product - formulatio n not commercial ly available* * Hydralazine No Notes: 3-14 (Same as: [place] 22:19: Apresoline Medical 00 ) Push Center over 5 minutes Bisacodyl No Notes: MH 3-14 (Same As: [place] 14:37: Dulcolax, Medical 00 Bisco-Lax) Center magnesium No 2 gm, 50 MH sulfate 3-14 mL, Route: [place] 09:00: IVPB, Drug Medical 00 form: INJ, Center ONCE, Start date: 10/29/14 4:00:00, Stop date: 10/29/14 4:00:00 Calcium 2014-0 No 1,000 mg, Chloride 3-13 Route: [place] 23:32: IVPB, Medical 00 ONCE, Center Dosing Weight 110.3, kg, Start date: 10/28/14 18:32:00, Stop date: 10/28/14 18:32:00 Vancomycin No 2000 mg: 3-13 infuse [place] 23:00: over 2.5 Medical 00 hours Center Vancomycin FOR IV SET ONLY Vancomycin 2014- No 2000 mg: 3-13 infuse [place] 22:00: over 2.5 Medical 00 hours Center Vancomycin FOR IV SET ONLY Ativan No 2 mg, 3-13 Route: IV, [place] 18:49: ONCE, Medical 00 Dosing Center Weight 110.3, kg, Start date: 10/28/14 13:49:00, Stop date: 10/28/14 13:49:00 sodium No Notes: phosphate + 3-13 (Same as: [place] as Sodium 10:00: Na Medical Chloride 00 Phosphate, Cente r 0.9% IV 250 Na PO4) mL potassium No Notes: chloride 3-13 (Same as: [place] 09:30: Potassium Medical 00 Chloride) [place] magnesium 2014- No 2 gm, 50 MH sulfate 3-13 mL, Route: [place] 09:30: IVPB, Drug Medical 00 form: INJ, Center ONCE, Start date: 10/28/14 4:30:00, Stop date: 10/28/14 4:30:00 docusate 0 No Notes: sodium 150 3-13 (Same as: [place] mg/15 mL 02:00: Colace) Medica l oral liquid 00 Center chlorhexidi 0 No Notes: ne 3-12 (Same As: [place] gluconate 17:00: Peridex) Medi see 1.2 MG/ML 00 Center Mouthwash NS 1,000 mL No 1,000 mL, M H 12 Rate: 100 [place] 16:29: ml/hr, Medical 00 Infuse [place] over: 10 hr, Route: IV, Dosing Weight 110.3 kg, Total Volume: 1,000, Start date: 10/27/14 11:29:00, Duration: 30 day, Stop date: 11/26/14 11:28:00 pantoprazol No Notes: e 10-27 Same as: [place] 14:00: Protonix Medical 00 Center Protonix No Notes: 10-27 Tablet [place] 14:00: should not Medical 00 be chewed Center or crushed. (Same as: Protonix) Propofol 10 No Notes: If M H MG/ML 10-27 Diprivan - [place] Injectable 12:02: change Medic al Suspension 00 bottle & Cente r tubing every 12 hr Per state nursing law propofol can only be given by a nurse if patient is intubated or being intubated (unless the nurse is a LANDFILL ATTENDANT). Same as: Diprivan sodium No Notes: bicarbonate 10-27 (sodium [place] 75 mEq + 07:02: bicarb Medical Sodium 00 8.4% (1 Center Chloride mEq/ml) 50 0.45% IV ml ) 925 mL ketAMINE No Notes: Per 500 mg + 10-27 [facility] Center Sodium 06:53: nursing Medical Chloride 00 law Center 0.9% IV 245 ketamine mL can only be given by a nurse if patient is intubated or being intubated (unless the nurse is a LANDFILL ATTENDANT). Keppra No Notes: 10-27 Same as: [place] 02:00: Keppra Medical 00 Center Vancomycin No 2000 mg: 10-27 infuse [place] 02:00: over 2.5 Medical 00 hours Center Vancomycin FOR IV SET ONLY heparin No 500 mL, additive 10-27 Rate: [place] 25,000 unit 01:00: 21.16 Medic al [14 00 ml/hr, [place] unit/kg/hr] Infuse + Premix over: 23.6 Diluent hr, Route: Dextrose 5% IV, Dosing 500 mL Weight 75.56 kg, Total Volume: 500 mL, Start date: 10/26/14 20:00:00, Duration: 30 day, Stop date: 11/25/14 19:59:00 hydrocortis No Notes: one 100 mg 10-26 (Same as: [place] injection 23:00: Solu-DAWNA Me dical 00 F) Center physiologic No Notes: al 10-26 [facility] irrigating 22:25: ingredient M edical solution 00 s in bag Center Na 140meq/L; K 4meq/L; HCO 35meq/L; Ca 3meq/L; Magnesium 1meq/L; CL 113meq/L; Glucose 100mg/dL; "Break seal Between compartmen ts and mix before hanging" sennosides, No Notes: LONG-TERM 10-26 (Same as: [place] 22:00: Senokot) [address] Lipitor No Notes: -11 Same as [place] 22:00: Lipitor [place] [address] Center Xarelto No Notes: - (Same as: [place] 22:00: Xarelto) Medical Administer Center with food chlorhexidi No Notes: ne 10-26 (Same As: [place] gluconate 22:00: Peridex) Medi see 1.2 MG/ML 00 Center Mouthwash nxstage No 1,000 mL, pureflow 10-26 Route: [facility]401 21:50: DIALYSIS, Medic al 5000ml SOLN 00 Irrigation Ce nter 1000 mL Site: Vein, femoral, Rt, 3,000 ml/hr, 0.3 hr, Total Volume: 1,000, "For Irrigation Only", Start date: 10/26/14 16:50:00, Duration: 1 day, Stop date: 10/27/14 16:49:00 Ketamine No Notes: Per - [facility] 21:49: nursing Medical law Center ketamine can only be given by a nurse if patient is intubated or being intubated (unless the nurse is a LANDFILL ATTENDANT). lidocaine No Notes: 1% 10-26 (Same as: [place] 21:26: Xylocaine) [place] [address] Center Ketamine No Notes: Per 3-11 [facility] 21:00: nursing Medical law Center ketamine can only be given by a nurse if patient is intubated or being intubated (unless the nurse is a LANDFILL ATTENDANT). Calcium No 1,000 mg, Chloride 3-11 10 mL, [place] 20:40: Route: Medical 00 IVPB, Center ONCE, Dosing Weight 110.3, kg, Start date: 10/26/14 15:40:00, Stop date: 10/26/14 15:40:00 Iohexol No Special 3-11 Instructio [place] 20:24: ns: Dose = Medical 00 2.2ml/kg, Center Max dose = 100ml -- "To be infused by Radiology Staff ONLY" Ketamine No Notes: 3-11 Total [place] 19:23: Concentrat Medical 00 ion = Center 1mg/ml Total Volume = 100ml Infusion Rate= Begin Infusion at an initial rate of 0.1mg/kg/h r to a Maximum Rate of 0.25mg/kg/ hr Please place a Med Request 2 hours before the next dose is needed. EPINEPHrine No 250 mL, 4 mg + 311 Rate: [place] Sodium 18:54: Titrate, Medical Chloride 00 Dosing Center 0.9% Weight (titrate) 110.3, kg, 250 mL Route: IV, Total Volume: 254, Start Date: 10/26/14 13:54:00, Duration: 30 day, Stop date: 11/25/14 13:53:00, Replace Every: 24 hr Etomidate No Notes: 3-11 (Same as: [place] 18:54: Amidate). Medical 00 Per state Center nursing law etomidate can only be given by a nurse if patient is intubated or being intubated (unless the nurse is a LANDFILL ATTENDANT). sodium No Notes: bicarbonate 3-11 (sodium [place] 8.4% 18:53: bicarb Medical 00 8.4% (1 Center mEq/ml) 50 ml syringe) Succinylcho No Notes: line 3-11 Same as: [place] 18:53: Anectine Medical 00 Center Fentanyl No 1,000 3-11 microgram, [place] 18:52: 20 mL, Medical 00 Rate: Center Titrate as directed, Dosing Weight 110.3, kg, Route: IV, Total Volume: 20 mL, Start Date: 10/26/14 13:52:00, Duration: 30 day, Stop date: 11/25/14 13:51:00, Replace Every: 24 hr Midazolam 1 No Notes: MH MG/ML -11 (Same as: [place] Injectable 18:52: Versed) Medi see Solution 00 Center Insulin No Notes: regular 100 3-11 (Same as: [place] as unit + 18:38: Humulin R Medica l Sodium 00 and Center Chloride NovoLIN R) 0.9% (Do not (titrate) shake) 99 mL Dextrose No 6.25 gm, MH 50% Syringe -11 12.5 mL, [place] 18:38: Route: Medical 00 IVP, Drug Center Form: INJ, Dosing Weight 110.3, kg, PRN, PRN Abnormal Lab Result, Start date: 10/26/14 13:38:00, Duration: 30 day, Stop date: 11/25/14 13:37:00 nxstage No Notes: pureflow 3-11 Total [place] [id number] 18:21: ingredient Medi see 5000ml 00 s in bag Center 4,600 mL + Na albumin 140meq/L; human 25% K 4meq/L; intravenous HCO solution 35meq/L; 100 gm Ca 3meq/L; Magnesium 1meq/L; CL 113meq/L; Glucose 100mg/dL; "Break seal Between compartmen ts and mix before hanging" Calcium No 2 gm, 20 MH Chloride 3-11 mL, Route: [place] 18:20: IVPB, PRN, Medical 00 Dosing Center Weight 110.3, kg, PRN Abnormal Lab Result, Via central line, Start date: 10/26/14 13:20:00, Duration: 30 day, Stop date: 11/25/14 13:19:00 Magnesium No 2 gm, 50 MH Sulfate 3-11 mL, Route: [place] 18:20: IVPB, Drug Medical 00 form: INJ, Center PRN, Dosing Weight 110.3, kg, PRN Abnormal Lab Result, Via central line, Start date: 10/26/14 13:20:00, Duration: 30 day, Stop date: 11/25/14 13:19:00 sodium 2014- No 15 mmol, 5 MH phosphate + 3-11 mL, Route: [place] Sodium 18:20: IVPB, PRN, Medic al Chloride 00 Dosing Center 0.9% IV 250 Weight mL 110.3, kg, PRN Abnormal Lab Result, Via central line, Start date: 10/26/14 13:20:00, Duration: 30 day, Stop date: 11/25/14 13:19:00 sodium No Notes: bicarbonate -11 (sodium [place] 75 mEq + 17:06: bicarb Medical Sodium 00 8.4% (1 Center Chloride mEq/ml) 50 0.45% IV ml VL) 925 mL vasopressin No Notes: 80 unit + 311 (Same As: [place] Sodium 15:34: Pitressin) Medic al Chloride 00 Center 0.9% (titrate) 246 mL Flagyl No Notes: 3-11 (Same as: [place] 15:00: Flagyl) Medical 00 Avoid Center alcohol. cefepime No Notes: 3-11 (Same As: [place] 15:00: Maxipime) Medical 00 Center Vancomycin No 2000 mg: 3-11 infuse [place] 14:08: over 2.5 Medical 00 hours Center Vancomycin FOR IV SET ONLY PlasmaLyte No 2,000 mL, A PH-7.4 10-26 Rate: [place] 2,000 mL 14:06: 2,000 Medical 00 ml/hr, Center Infuse over: 1 hr, Route: IV, Dosing Weight 110.3 kg, Total Volume: 2,000, Start date: 10/26/14 9:06:00, Duration: 30 day, Stop date: 11/25/14 9:05:00 Wellbutrin No Notes: 3-11 (Same As: [place] 14:00: Wellbutrin Medical 00 ) Center Haldol No Notes: 3-11 (Same as: [place] 14:00: Haldol) Medical 00 Center Topamax No Notes: 3-11 (Same As: [place] 14:00: Topamax) Medical 00 "Do Not Center Crush" Saline No Notes: Flush 0.9% -11 (Same as: Huma bocanegra 14:00: BD Medical 00 Posiflush) Center docusate No Notes: sodium 100 3-11 (Same as: [place] mg oral 14:00: Colace) Medical capsule 00 Center pneumococca No Notes: l capsular 3-11 (Same as: [place] polysacchar 14:00: Pneumovax M edical jarad type 1 00 23) Center vaccine / Refrigerat pneumococca e l capsular polysacchar jarad type 10A vaccine / pneumococca l capsular polysacchar jarad type 11A vaccine / pneumococca l capsular polysacchar jarad type 12F vaccine / pneumococca l capsular polysacchar influenza No Notes: virus 3-11 (Same as: [place] vaccine, 14:00: Fluzone Medica l inactivated 00 Quadrivale Ce nter nt) Levophed No Notes: Not Bitartrate 10-26 for direct [place] as 32 mg + 13:42: administra Medi see Sodium 00 tion - Center Chloride DILUTE. 0.9% Protect (titrate) from 218 mL light. (Same as:Levophe d). Administer by either central venous catheter or peripheral ly-inserte d central catheter (PICC) line. Albumin No Notes: Lot Human, LONG-TERM 311 #: [place] 250 MG/ML 12:52: Me dical Injectable 00 ___ Center Solution Mfg: (Same as: Plasbumin- 25) "blood product derivative " Protonix No Notes: 3-11 (Same as: [place] 12:19: Protonix) Medical 00 Center Albumin No Notes: Human, LONG-TERM 3-11 LOT#: [place] 50 MG/ML 10:34: Med ical Injectable 00 ___ Center Solution Mfg: (Same as: Albuminar) "blood product derivative " Versed No Notes: 3-11 (Same as: [place] 09:00: Versed) Medical 00 Center magnesium No 2 gm, 50 MH sulfate 3-11 mL, Route: [place] 07:00: IVPB, Drug Medical 00 form: INJ, Center Q2H, Start date: 10/26/14 2:00:00, Duration: 2 doses or times, Stop date: 10/26/14 4:00:00 Iohexol 2014-0 No Special MH 3-11 Instructio [place] 05:56: ns: Dose = Medical 00 2.2ml/kg, Center Max dose = 100ml -- "To be infused by Radiology Staff ONLY" magnesium 2014-0 No 4 gm, 100 MH sulfate 3-11 mL, Route: [place] 05:44: IVPB, Drug Medical form: INJ, Center ONCE, Start date: 10/26/14 0:44:00, Stop date: 10/26/14 0:44:00 Reglan 2014-0 No Notes: MH 3-11 (Same as: [place] 05:21: Reglan) Medical 00 Center Valproic 2014-0 No 1,000 mg, MH Acid 100 11 Route: IV, [place] MG/ML 05:16: ONCE, Medical Injectable 00 Dosing Center Solution Weight 110.3, kg, Priority: NOW, Start date: 10/26/14 0:16:00, Stop date: 10/26/14 0:16:00 Dexamethaso 2014-0 No 10 mg, 1 MH ne 3-11 mL, Route: [place] 05:15: IVP, Drug Medical form: INJ, Center ONCE, Dosing Weight 110.3, kg, Start date: 10/26/14 0:15:00, Stop date: 10/26/14 0:15:00 Reglan 2014-0 No 10 mg, MH 3-11 Route: [place] 05:14: IVP, Drug Medical form: INJ, Center Q6H, Dosing Weight 110.3, kg, Priority: NOW, Start date: 10/26/14 0:14:00, Duration: 30 day, Stop date: 11/25/14 0:00:00 NS 1,000 mL 2014-0 No 1,000 mL, M H 3 Rate: 150 [place] 05:01: ml/hr, Medical 00 Infuse Center over: 6.7 hr, Route: IV, Dosing Weight 110.3 kg, Total Volume: 1,000, Start date: 10/26/14 0:01:00, Duration: 30 day, Stop date: 11/25/14 0:00:00 Sodium 2014-0 No 1,000 mL, MH Chloride 3-11 1,000 [place] 0.154 04:54: ml/hr, Medical MEQ/ML 00 Infuse Center Injectable Over: 1 Solution hr, Route: IV, 1,000, Drug form: INJ, ONCE, Priority: STAT, Dosing Weight 110.3 kg, Start date: 10/25/14 23:54:00, Duration: 1 doses or times, Stop date: 10/25/14 23:54:00 Navane Yes 2 mg, PO, MH 3-11 BID, 0 [place] 03:29: Refill(s) Medical 00 Center Bupropion Yes 200 mg = 2 MH Hydrochlori 3-11 tab, PO, [place] de 100 MG 03:29: BID, 0 Medica l Oral Tablet 00 Refill(s) Antionette ter [Wellbutrin ] tramadol Yes 50 mg = 1 MH hydrochlori 3-11 tab, PO, [place] de 50 MG 03:29: Q8H, Pain Medi see Oral Tablet 00 Score 4-6, Ce nter [Ultram] 0 Refill(s) topiramate No 50 mg = 1 MH 50 MG Oral 3-11 tab, PO, [place] Tablet 03:29: BID, # 60 Medica l [Topamax] 00 tab, 0 Center Refill(s) Promethazin Yes 25 mg = 1 M H e 3-11 tab, PO, [place] Hydrochlori 03:29: Q6H, Medica l de 25 MG 00 Nausea, # [place] Oral Tablet 15 tab, 0 [Phenergan] Refill(s) rivaroxaban No 20 mg = 1 M H 20 MG Oral 3-11 tab, PO, [place] Tablet 03:29: QPM, 0 Medical [Xarelto] 00 Refill(s) Cente r Esomeprazol No = 1 tab, e 40 MG 3-11 PO, Daily, [place] Enteric 03:29: 0 Medical Coated 00 Refill(s) [place] Capsule [Nexium] 120 ACTUAT No 1 spray, Triamcinolo 3-11 NASAL, [place] ne 03:29: Daily, # Medical Acetonide 00 17 gm, 0 [place] 0.055 Refill(s) MG/ACTUAT Nasal Inhaler [Nasacort] atorvastati Yes 80 mg = 1 M H n 80 MG -11 tab, PO, [place] Oral Tablet 03:29: Daily, 0 Me dical [Lipitor] 00 Refill(s) [place] r Haldol Yes 2 mg, PO, 3-11 BID, 0 [place] 03:28: Refill(s) Medical [address] [place] [address] Acetaminoph No Notes: Max en 3-11 acetaminop [place] 03:01: hen = Medical 00 4000mg/day [place] (4 gm/day). (Same as: Tylenol) Sodium No 1,000 mL, Chloride 11 1,000 [place] 0.154 02:35: ml/hr, Medical MEQ/ML 00 Infuse Center Injectable Over: 1 Solution hr, Route: IV, 1,000, Drug form: INJ, ONCE, Priority: STAT, Dosing Weight 96.364 kg, Start date: 10/25/14 21:35:00, Duration: 1 doses or times, Stop date: 10/25/14 21:35:00 Saline No Notes: Flush 0.9% -11 (Same as: [place] b[place] 02:33: BD Medical 00 Posiflush) [place] Ondansetron No Notes: 3-11 (Same as: [place] 02:33: Zofran) Medical [address] [place] [address] NS 1,000 mL No 1,000 mL, M H 10-26 Rate: 100 [place] 02:30: ml/hr, [facility] 00 Infuse Center over: 10 hr, Route: IV, Dosing Weight 96.364 kg, Total Volume: 1,000, Start date: 10/25/14 21:30:00, Duration: 30 day, Stop date: 11/24/14 21:29:00 norepinephr No Notes: Not ine 16 mg + 3-11 for direct [place] Sodium 02:29: administra Medic al Chloride 00 tion - Center 0.9% DILUTE. (titrate) Protect 234 mL from light. (Same as:Levophe d). Administer by either central venous catheter or peripheral ly-inserte d central catheter (PICC) line. Regular No 60 Insulin, 3-11 units) [place] Human 100 02:28: Stable for Me dical UNT/ML 00 28 days at [place] Injectable room Solution temperatur e Expires in days from ____Date Dextrose 2014-0 No 25 gm, 50 MH 50% Syringe 3-11 mL, Route: [place] 02:28: IVP, Drug Medical 00 Form: INJ, Center Dosing Weight 96.364, kg, PRN, PRN Abnormal Lab Result, Start date: 10/25/14 21:28:00, Duration: 30 day, Stop date: 11/24/14 21:27:00 Coumadin 2013-0 No 2 mg, 1 MH 3-30 tab, [place] 22:00: Route: PO, Medical 00 Drug form: Center TAB, Q5PM, Start date: 11/14/13 17:00:00, Duration: 1 doses or times, Stop date: 11/14/13 17:00:00Nu rse to ensure documentat ion of patient education per anticoagul ation policy. Avoid large intake of vitamin-K containing foods diet. (Same As: Coumadin) Warfarin 2013- No 5 mg, 1 MH 3-30 tab, [place] 22:00: Route: PO, Medical 00 Drug form: Center TAB, Q5PM, Dosing Weight 96.364, kg, Start date: 11/14/13 17:00:00, Duration: 1 doses or times, Stop date: 11/14/13 17:00:00Nu rse to ensure documentat ion of patient education per anticoagul ation policy. Avoid large intake of vitamin-K containing foods diet. (Same As: Coumadin) Levetiracet Yes 500 mg = 1 MH am 500 MG 3-30 tab, PO, [place] Oral Tablet 19:41: Q12H, # 60 Medical [Keppra] 00 tab, 0 Center Refill(s) Levetiracet 2013-0 No 500 mg, 1 M H am 500 MG 3-30 tab, [place] Oral Tablet 18:00: Route: PO, Medical [Keppra] 00 Drug form: Cente r TAB, Q12H, Dosing Weight 96.364, kg, Start date: 11/14/13 13:00:00, Duration: 30 day, Stop date: 12/14/13 9:00:00(Sa me as:Keppra) pneumococca No 0.5 ml, MH l capsular 3-30 Route: IM, Tommy as polysacchar 14:00: Drug Form: Medical jarad type 1 00 INJ, Center vaccine / Daily, pneumococca Start l capsular date: polysacchar 11/14/13 jarad type 9:00:00, 10A vaccine Duration: / 1 doses or pneumococca times, l capsular Stop date: polysacchar 11/14/13 jarad type 9:00:00(Sa 11A vaccine me as: / Pneumovax pneumococca 23) l capsular Refrigerat polysacchar e jarad type 12F vaccine / pneumococca l capsular polysacchar Benadryl No 25 mg, 1 MH 3-30 cap, [place] 03:09: Route: PO, Medical 00 Drug form: Center CAP, Bedtime, Dosing Weight 96.364, kg, PRN Insomnia, Start date: 11/13/13 22:09:00, Duration: 1 day, Stop date: 11/14/13 22:08:00(S pinky as: Benadryl) atorvastati No 80 mg, 2 MH n 3-30 tab, [place] 02:00: Route: PO, Medical 00 Drug form: Center TAB, Bedtime, Dosing Weight 96.364, kg, Start date: 11/13/13 21:00:00, Duration: 30 day, Stop date: 12/12/13 21:00:00(S pinky as: Lipitor) Coumadin No 5 mg, 1 MH 3-29 tab, [place] 22:00: Route: PO, Medical 00 Drug form: Center TAB, Q5PM, Dosing Weight 96.364, kg, Start date: 11/13/13 17:00:00, Duration: 1 doses or times, Stop date: 11/13/13 17:00:00Nu rse to ensure documentat ion of patient education per [facility] policy. Avoid large intake of vitamin-K containing foods diet. (Same As: Coumadin) Ativan No 0.5 mg, 1 MH 3-29 tab, [place] 21:00: Route: PO, Medical 00 Drug form: Center TAB, ONCE, Dosing Weight 96.364, kg, Start date: 11/13/13 16:00:00, Stop date: 11/13/13 16:00:00(S pinky as: Ativan) Ativan No 0.5 mg, 1 MH 3-29 tab, [place] 20:08: Route: PO, Medical 00 Drug form: Center TAB, ONCE, Dosing Weight 96.364, kg, Start date: 11/13/13 15:08:00, Stop date: 11/13/13 15:08:00(S pinky as: Ativan) atorvastati No 80 mg = 1 M H n 80 MG 3-29 tab, PO, [place] Oral Tablet 17:12: Bedtime Med ical [Lipitor] 00 [place] Thiothixene Yes 5 mg = 1 MH 5 MG Oral 3-29 cap, PO, [place] Capsule 17:12: BID, # 60 Medic al [Navane] 00 cap [place] haloperidol Yes 5 mg = 1 MH 5 mg oral 3-29 tab, PO, [place] tablet 17:12: BID, # 60 Medica l 00 tab [place] Sertraline Yes 100 mg = 1 M H 100 MG Oral 3-29 tab, PO, [place] Tablet 17:12: BID, # 60 Medica l [Zoloft] 00 tab [place] 12 HR Yes 200 mg = 1 MH Bupropion 3-29 tab, PO, [place] Hydrochlori 17:12: BID, # 60 M edical de 200 MG 00 tab [place] Extended Release Tablet [Wellbutrin ] lisinopril Yes 40 mg = 1 MH 40 mg oral 3-29 tab, PO, [place] tablet 17:03: Daily Medical 00 [place] verapamil Yes 300 mg = 1 MH 300 mg/24 3-29 cap, PO, [place] hours oral 17:03: Daily Medica l capsule, 00 [place] extended release Saline No 5 ml, MH Flush 0.9% 11-13 Route: [place] 14:00: IVP, Drug Medical 00 Form: INJ, [place] Dosing Weight 96.364, kg, Q12H, Start date: 11/13/13 9:00:00, Duration: 30 day, Stop date: 12/12/13 21:00:00(S pinky as: BD Posiflush) Aspirin 325 No 325 mg, 1 M H MG Enteric 3-29 tab, [place] Coated 14:00: Route: PO, Medic al Tablet 00 Drug form: [place] ECTAB, Daily, Dosing Weight 96.364, kg, Start date: 11/13/13 9:00:00, Duration: 30 day, Stop date: 12/12/13 9:00:00(Do Not Crush) Do not crush or chew. Versed No 1 mg, 1 MH 3-29 mL, Route: [place] 12:06: IV, Drug Medical form: INJ, [place] PRN, Dosing Weight 96.364, kg, PRN Other -See Comment, Start date: 11/13/13 7:06:00, Duration: 30 day, Stop date: 12/13/13 7:05:00(Sa me as: Versed) Iohexol 2013- No 85 mL, MH 11-13 Route: [place] 11:04: IVP, Drug Medical Form: [place] SOLN, Dosing Weight 96.364, kg, ONCALL, STAT, Start date: 11/13/13 6:04:00, Duration: 1 doses or times, Stop date: 11/14/13 0:00:00, Dose = 2.2ml/kg, Max dose = 100ml -- "To be infused by Radiology Staff ONLY"(Same as:Omnipaq ue 350). Enoxaparin No 40 mg, 0.4 M H 3-29 mL, Route: [place] 11:00: SUB-Q, Medical Drug form: [place] INJ, [id number], Dosing Weight 96.364, kg, Start date: 11/13/13 6:00:00, Duration: 30 day, Stop date: 12/12/13 6:00:00(Sa me as: Lovenox) Saline 2013- No 5 ml, Flush 0.9% 11-13 Route: [place] 10:15: IVP, Drug Medical 00 Form: INJ, [place] Dosing Weight 96.364, kg, PRN, PRN Line Flush, Start date: 11/13/13 5:15:00, Duration: 30 day, Stop date: 12/13/13 5:14:00(Sa me as: BD Posiflush) Acetaminoph No 650 mg, 2 M H en 11-13 tab, [place] 10:15: Route: PO, Medical 00 Drug form: Center TAB, Q4H, Dosing Weight 96.364, kg, PRN Pain 1-3/Temp > 99.5 F, Start date: 11/13/13 5:15:00, Duration: 30 day, Stop date: 12/13/13 5:14:00Do not exceed 4 gm/day. (Same as: Tylenol) Sodium 2013-0 No 1,000 mL, MH Chloride 11-13 Rate: 100 [place] 0.154 10:15: ml/hr, Medical MEQ/ML 00 Infuse Center Injectable over: 10 Solution hr, Route: IV, Dosing Weight 96.364 kg, Total Volume: 1,000, Start date: 11/13/13 5:15:00, Duration: 30 day, Stop date: 12/13/13 5:14:00 Coumadin 2013- Yes 7 mg, PO, MH 11-13 Daily, 0 [place] 09:06: Refill(s) Medical 00 [place] Saline 2013-0 No 5 mL, Flush 0.9% 11-13 Route: [place] 08:58: IVP, Drug Medical 00 Form: INJ, [place] Dosing Weight 96.364, kg, PRN, PRN Line Flush, Start date: 11/13/13 3:58:00, Duration: 30 day, Stop date: 12/13/13 3:57:00pre servative free. Navane 2 mg 2012- Yes Anna Marie 2 mg, PO, MH oral 9-25 Janey BID, 60 [place] capsule 18:40: Brown tab, Medical 33 Substituti Center on Allowed, CAP Zoloft 100 2012-0 Yes Anna Marie 100 mg, 1 MH mg oral 9-25 [place] tab, PO, [place] tablet 18:40: [place] BID, 60 Medical 28 tab, Center Substituti on Allowed, TAB haloperidol 2012- Yes Anna Marie 2 mg, 1 MH 2 mg oral 9-25 [place] tab, PO, [place] tablet 18:40: [place] BID, 60 Medical 12 tab, Center Substituti on Allowed Wellbutrin 2012- Yes Anna Marie 100 mg, 1 MH 100 mg oral 9-25 Janey tab, PO, [place] tablet 18:39: [place] BID, 60 Medical 54 tab, Center Substituti on Allowed, TAB Levaquin 2012- Yes Anna Marie 750 mg, 1 M H 750 mg oral 9-25 Janey tab, PO, [place] tablet 12:12: [place] Q24H, 7 Medical 09 tab, Center Substituti on Allowed, TAB Flagyl ER No Anna Marie 750 mg, 1 MH 750 mg oral 9-25 Janey tab, PO, [place] tablet, 11:29: [place] Daily, 7 Medic al extended 24 tab, Center release Substituti on Allowed, ERTAB metoprolol No Hannah 50 mg, 1 MH tartrate 9-25 Dom tab, [place] 02:00: Tom Route: PO, Medica l 00 Drug form: Center TAB, Q12H, Dosing Weight 98.182, kg, Start date: 05/11/13 21:00:00, Duration: 30 day, Stop date: 06/10/13 9:00:00 Multiple Yes Anna Marie 1 cap, PO, MH Vitamins 9-24 [place] Daily, 30 [place] oral 22:16: [place] cap, Medical capsule 28 Substituti Center on Allowed, Maintenanc e, CAP atorvastati Yes Anna Marie 80 mg, 1 MH n 80 mg 9-24 [place] tab, PO, [place] tablet 22:14: [place] Bedtime, M edical 33 30 tab, Center Substituti on Allowed, TAB aspirin 81 Yes Anna Marie 81 mg, 1 MH mg tablet, 9-24 Janey tab, PO, [place] enteric 22:14: [place] Daily, 30 Medi see coated 18 tab, Center Substituti on Allowed, ECTAB metoprolol No Hannah 25 mg, 1 MH tartrate 9-24 Dom tab, [place] 13:38: Tom Route: PO, Medica l 00 Drug form: Center TAB, ONCE, Dosing Weight 98.182, kg, Priority: STAT, Start date: 05/11/13 8:38:00, Stop date: 05/11/13 8:38:00 Flagyl No Lyndon 500 mg, MH 9- Amado 100 mL, [place] 23:00: Scaris Route: Medical 00 IVPB, Drug Center form: INJ, [id number], Dosing Weight 98.182, kg, Start date: 05/10/13 18:00:00, Duration: 30 day, Stop date: 06/09/13 10:00:00 azithromyci No Lyndon 500 mg, MH n + Sodium 05-10 Amado Route: [place] Chloride 23:00: Bubis IVPB, Medical 0.9% IV 250 00 [id number], Cent er mL Dosing Weight 98.182, kg, Start date: 05/10/13 18:00:00, Duration: 30 day, Stop date: 06/08/13 18:00:00 Neutra-Phos No Anna Marie 1 pkt, M H 05-10 Janey Route: PO, [place] 22:45: [facility] Drug Form: Medica l 00 PDR/REC, Center Dosing Weight 98.182, kg, ONCE, Start date: 05/10/13 17:45:00, Stop date: 05/10/13 17:45:00 magnesium No Anna Marie 1 gm, MH sulfate 05-10 Janey Route: [place] 22:45: [facility] IVPB, Drug Medica l 00 form: INJ, Center ONCE, Dosing Weight 98.182, kg, Start date: 05/10/13 17:45:00, Stop date: 05/10/13 17:45:00 heparin No Anna Marie 5,000 MH 05-10 Janey unit, 1 [place] 21:00: Brown mL, Route: Medica l 00 SUB-Q, [place] Drug form: INJ, Q8H, Dosing Weight 98.182, kg, Start date: 05/10/13 16:00:00, Duration: 30 day, Stop date: 06/09/13 8:00:00 aspirin No Anna Marie 81 mg, 1 MH 05-10 Janey tab, [place] 18:00: Rodrigo Route: PO, Medica l 00 Drug form: [place] ECTAB, Daily, Dosing Weight 98.182, kg, Start date: 05/10/13 13:00:00, Duration: 30 day, Stop date: 06/09/13 9:00:00 azithromyci No Lyndon 250 mg, 1 MH n 250 mg 05-10 Amado tab, [place] oral tablet 13:00: Bubis Route: PO, Medical 00 Drug form: [place] TAB, [id number], Dosing Weight 98.182, kg, Start date: 05/10/13 8:00:00, Duration: 4 doses or times, Stop date: 05/13/13 8:00:00 Versed 2012- No Hannah 1 mg, 1 MH 05-10 Dom mL, Route: [place] 12:41: Tom IV, Drug Medical 00 form: INJ, Center ONCE, Dosing Weight 98.182, kg, Start date: 05/10/13 7:41:00, Stop date: 05/10/13 7:41:00 magnesium 2012- No Hannah 2 gm, 50 MH sulfate 05-10 Dom mL, Route: [facility] [place] [facility]: Tom IVPB, Drug Medica l 00 form: INJ, Center Q2H, Dosing Weight 98.182, kg, Total Dose = 4 gm, Start date: 05/10/13 6:00:00, Duration: 2 doses or times, Stop date: 05/10/13 8:00:00, For Mg = 1.5 - 1.7 mg/dLFor Mg = 1.5 - 1.7 mg/dL Lipitor No Yoli Rakel 80 mg, 1 MH 05-10 [place] tab, [place] 02:00: ve Route: PO, Medical 00 Drug form: Center TAB, Bedtime, Dosing Weight 113.636, kg, Start date: 05/09/13 21:00:00, Duration: 30 day, Stop date: 06/07/13 21:00:00 Mag-Ox 400 No Kamal 400 mg, 1 M H 05-10 Zi tab, [place] 00:00: Angeline Route: PO, Medical 00 Drug form: Center TAB, On Adm, Start date: 05/09/13 19:00:00, Duration: 1 doses or times, Stop date: 05/09/13 21:00:00 magnesium 2012-0 No Kamal 500 mg, MH oxide base 05-09 Zi Route: PO, [place] 500 mg oral 23:08: Angeline Drug form: Medical tablet 00 TAB, ONCE, Center Dosing Weight 98.182, kg, Start date: 05/09/13 18:08:00, Stop date: 05/09/13 18:08:00 thiamine 2012-0 No Brittany 100 mg, 1 M H 05-09 Carmen tab, [place] 14:00: Gill Route: PO, Medi see 00 Drug form: Center TAB, Daily, Dosing Weight 98.182, kg, Start date: 05/09/13 9:00:00, Duration: 30 day, Stop date: 06/07/13 9:00:00 folic acid 2012-0 No Brittany 1 mg, 1 M H 05-09 Carmen tab, [place] 14:00: Zwiener Route: PO, Medi see 00 Drug form: Center TAB, Daily, Dosing Weight 98.182, kg, Start date: 05/09/13 9:00:00, Duration: 30 day, Stop date: 06/07/13 9:00:00 multivitami 2012-0 No Brittany 1 tab, M H n 05-09 Carmen Route: PO, [place] 13:10: Kayla Drug Form: [facility] see 00 TAB, Center Dosing Weight 98.182, kg, Daily, Start date: 05/09/13 8:10:00, Duration: 30 day, Stop date: 06/07/13 9:00:00 heparin 2012-0 No Hannah 5,000 MH 05-09 Dom unit, 1 [place] 13:00: Tom mL, Route: Medica l 00 SUB-Q, [place] Drug form: INJ, Q8H, Dosing Weight 98.182, kg, Start date: 05/09/13 8:00:00, Duration: 30 day, Stop date: 06/08/13 0:00:00 Plavix 2012-0 No Hannah 75 mg, 1 05-09 Dom tab, [place] 13:00: Tom Route: PO, Medica l 00 Drug form: [place] TAB, Daily, Dosing Weight 98.182, kg, Start date: 05/09/13 8:00:00, Duration: 30 day, Stop date: 06/07/13 9:00:00 Rocephin 2012-0 No Hannah 1 gm, 05-09 Dom Route: [place] 13:00: Tom IVPB, Drug Medica l 00 form: [place] PDR/INJ, [id number], Dosing Weight 98.182, kg, Start date: 05/09/13 8:00:00, Duration: 4 doses or times, Stop date: 05/13/13 8:00:00 insulin 2012-0 No Hannah 3 unit, MH regular 100 05-09 [place] 0.03 mL, [place] units/mL 12:40: Tom Route: Medica l human 00 SUB-Q, Center recombinant Drug form: SOLN, PRN, Dosing Weight 98.182, kg, PRN Abnormal Lab Result, Start date: 05/09/13 7:40:00, Duration: 30 day, Stop date: 06/08/13 7:39:00 Dextrose No Hannah 6.25 gm, MH 50% Syringe 05-09 [place] 12.5 mL, [place] 12:40: Tom Route: Medical 00 IVP, Drug Center Form: INJ, Dosing Weight 98.182, kg, PRN, PRN Abnormal Lab Result, Start date: 05/09/13 7:40:00, Duration: 30 day, Stop date: 06/08/13 7:39:00 NS (Bolus) No Brittany 1,000 mL, MH IV 1,000 mL 05-09 Carmen Rate: [place] 12:37: Gill 1,000 Medical 00 ml/hr, [place] Infuse over: 1 hr, Route: IV, Dosing Weight 98.182 kg, Total Volume: 1,000, Priority: STAT, Start date: 05/09/13 7:37:00, Duration: 1 doses or times, Stop date: 05/09/13 8:36:00, Bolus DoseBolus Dose azithromyci No Brittany 500 mg, 2 MH n 05-09 Carmen tab, [place] 12:35: Zwiener Route: PO, Medi see 00 Drug form: [place] TAB, ONCE, Dosing Weight 98.182, kg, Start date: 05/09/13 7:35:00, Stop date: 05/09/13 7:35:00 Omnipaque No Hannah 85 mL, MH 350mg/ml 05-09 Dom Route: [place] 11:49: Tom IVP, Drug Medical 00 Form: [place] SOLN, Dosing Weight 98.182, kg, ONCALL, STAT, Start date: 05/09/13 6:49:00, Duration: 1 doses or times, Dose = 2.2ml/kg, Max dose = 100ml -- "To be infused by Radiology Staff ONLY"Dose = 2.2ml/kg, Max dose = 100ml -- "To be infused by Radiology Staff ONLY" NS 1000 mL 2013-0 No Lyndon 1,000 mL, MH 05-09 Amado Rate: 150 [place] 03:31: Bubis ml/hr, [place] [id number] Infuse Center over: 6.7 hr, Route: IV, Dosing Weight 113.636 kg, Total Volume: 1,000, Start date: 05/08/13 22:31:00, Duration: 30 day, Stop date: 06/07/13 22:30:00 levalbutero No Linsey 0.63 mg, 3 MH l 05-09 Vanessa mL, Route: [place] 02:59: Read NEB, Drug Medic al Brice form: Center SOLN, PRN, Dosing Weight 113.636, kg, PRN Respirator y Protocol, Start date: 05/08/13 21:59:00, Duration: 30 day, Stop date: 06/07/13 21:58:00 Tylenol No Linsey 325 mg, 1 M H 05-09 Vanessa tab, [place] 02:58: Read Route: PO, Medi see Brice Drug form: Cente r TAB, Q4H, Dosing Weight 113.636, kg, PRN Pain, Start date: 05/08/13 21:58:00, Duration: 30 day, Stop date: 06/07/13 21:57:00 Saline No Linsey 5 ml, MH Flush 0.9% 05-09 Vanessa Route: [place] 02:00: Read IVP, Drug Medic al Brice Form: INJ, Cente r Dosing Weight 113.636, kg, Q12H, Start date: 05/08/13 21:00:00, Duration: 30 day, Stop date: 06/07/13 9:00:00 docusate 0 No Linsey 100 mg, 1 MH 05-09 Vanessa cap, [place] 02:00: Read Route: PO, Medi see Brice Drug form: Cente r CAP, Q12H, Dosing Weight 113.636, kg, Start date: 05/08/13 21:00:00, Duration: 30 day, Stop date: 06/07/13 9:00:00 Saline 0 No Linsey 5 ml, MH Flush 0.9% 05-08 Vanessa Route: [place] 22:58: Read IVP, Drug Medic al 00 Brice Form: INJ, Cente r Dosing Weight 113.636, kg, PRN, PRN Line Flush, Start date: 05/08/13 17:58:00, Duration: 30 day, Stop date: 06/07/13 17:57:00 caffeine 2011-08 Yes Anita Marcelino 100 mg, 1 MH 100 mg oral 2-04 [place] tab, PO, [place] tablet 19:05: Q6H, 24 Medical 27 tab, Center Substituti on Allowed, TAB aspirin 325 2011-08 Yes Anita Marcelino 325 mg, 1 MH mg tablet 2-04 [place] tab, PO, [place] 19:05: Daily, 30 Medical 08 tab, Center Substituti on Allowed, TAB verapamil 2011-08 No Anita Marcelino 40 mg, 1 MH 40 mg oral 2-04 [place] tab, PO, Tommy as tablet 19:03: TID, 90 Medical 44 tab, Center Substituti on Allowed, TAB caffeine 2011-08 No Anita Marcelino 100 mg, 1 MH 100 mg oral 2-04 [place] tab, PO, [place] tablet 19:03: Q3H, 12 Medical 29 tab, Center Substituti on Allowed, TAB caffeine 2011-08 No Naomi Viki 250 mg, MH 2-04 Quang Route: [place] 18:15: IVPB, Medical 00 ONCE, Center Dosing Weight 113.636, kg, Start date: 07/21/12 12:15:00, Stop date: 07/21/12 12:15:00 influenza 2011-08 No SYSTEM 0.5 ml, virus 2-04 SYSTEM Route: IM, [place] vaccine, 18:08: Drug Form: Med ical inactivated 00 INJ, Start Ce nter date: 07/21/12 12:08:00, Stop date: 07/21/12 12:08:00 verapamil 2011-08 Yes Naomi Viki 80 mg, 1 MH 80 mg oral 2-04 Quang tab, PO, [place] tablet 17:59: TID, 90 Medical 46 tab, 3, 3, Center Substituti on Allowed, TAB Haldol 2011-08 No Baudilio 2 mg, 2 MH 2-04 Castellanos tab, [place] 15:00: Chahil Route: PO, Medic al 00 Drug form: Center TAB, Daily, Dosing Weight 113.636, kg, Start date: 07/21/12 9:00:00, Duration: 30 day, Stop date: 08/19/12 9:00:00 aspirin 2011- No Anita Marcelino 325 mg, 1 M H 2-04 [place] tab, [place] 15:00: Route: PO, Medical 00 Drug form: [place] TAB, Daily, Dosing Weight 113.636, kg, Start date: 07/21/12 9:00:00, Duration: 30 day, Stop date: 08/19/12 9:00:00 Zofran 2 2011-08 Yes Naomi Viki 4 mg, 2 MH mg/mL 2-04 Quang mL, IV, [place] injectable 14:30: Q6H, PRN, Nm dical solution 16 15 mL, 1, Center 1, Nausea, Substituti on Allowed, INJ Cipro 250 2011-08 Yes Anita Marcelino 250 mg, 1 MH mg oral 2-04 [place] tab, PO, [place] tablet 14:30: Q12H, 6 Medical 09 tab, Center Substituti on Allowed, TAB Lipitor 40 2011-08 Yes Naomi Viki 40 mg, 1 MH mg oral 2-04 Quang tab, PO, [place] tablet 14:30: QPM, 30 Medical 06 tab, 3, 3, Center Substituti on Allowed, TAB Cipro 2011-08 No Anita Marcelino 250 mg, 1 MH 2-04 [place] tab, [place] 05:00: Route: PO, Medical 00 Drug form: [place] TAB, Q12H, Dosing Weight 113.636, kg, Start date: 07/20/12 23:00:00, Duration: 30 day, Stop date: 08/19/12 11:00:00 clonidine 2011-08 No Reynaldo 0.1 mg, 1 MH 2-04 Govind tab, [place] 03:00: Koranne Route: PO, Medi see 00 Drug form: [place] TAB, Q8H-05, Dosing Weight 113.636, kg, Start date: 07/20/12 21:00:00, Duration: 30 day, Stop date: 08/19/12 13:00:00 Lipitor 2011-08 No Baudilio 40 mg, 1 MH 2-03 Castellanos tab, [place] 23:00: Chahil Route: PO, Medic al 00 Drug form: [place] TAB, QPM, Dosing Weight 113.636, kg, Start date: 07/20/12 17:00:00, Duration: 30 day, Stop date: 08/18/12 17:00:00 NS (Bolus) 2011-08 No Reynaldo 500 mL, IV 500 mL 2-03 Govind Rate: 500 [place] 22:31: Koranne ml/hr, Medical 00 Infuse Center over: 1 hr, Route: IV, kg, Total Volume: 500, Priority: STAT, Start date: 07/20/12 16:31:00, Duration: 1 doses or times, Stop date: 07/20/12 17:30:00, Bolus DoseBolus Dose caffeine 2011-08 No Reynaldo 300 mg, 2-03 Govind 1.5 tab, [place] 21:30: Koranne Route: PO, Medi see 00 Drug form: [place] TAB, ONCE, Start date: 07/20/12 15:30:00, Stop date: 07/20/12 15:30:00 aspirin 2011-08 No Reynaldo 81 mg, 1 2-03 Govind tab, [place] 21:00: Koranne Route: PO, Medi see 00 Drug form: [place] ECTAB, Daily, Dosing Weight 113.636, kg, Start date: 07/20/12 15:00:00, Duration: 30 day, Stop date: 08/19/12 9:00:00 Zofran 2011-08 No Reynaldo 4 mg, 2 2-03 Govind mL, Route: [place] 19:23: Koranne IV, Drug Medica l 00 form: INJ, [place] Q6H, Dosing Weight 113.636, kg, PRN Nausea, Start date: 07/20/12 13:23:00, Duration: 30 day, Stop date: 08/19/12 13:22:00 caffeine-so 2011-08 No Reynaldo 250 mg, 1 dium 2-03 Govind mL, Route: [place] benzoate + 19:20: Koranne IVPB, Drug Medical Sodium 00 form: INJ, [place] Chloride ONCE, 0.9% IV Dosing 1,000 mL Weight 113.636, kg, Start date: 07/20/12 13:20:00, Stop date: 07/20/12 13:20:00 Navane 2011-08 No Baudilio 20 mg, 4 2-03 Castellanos cap, [place] 15:00: Chahil Route: PO, Medic al 00 Drug form: [place] CAP, Daily, Dosing Weight 113.636, kg, Start date: 07/20/12 9:00:00, Duration: 30 day, Stop date: 08/18/12 9:00:00 clonidine 2011-08 No Reynaldo 0.1 mg, 2-03 Govind Route: PO, [place] 15:00: Koranne Drug form: Medi see 00 TAB, TID, [place] Dosing Weight 113.636, kg, Start date: 07/20/12 9:00:00, Duration: 30 day, Stop date: 08/18/12 17:00:00 Haldol 2011-08 No Baudilio 2 mg, 1 2-03 Castellanos tab, [place] 15:00: Chahil Route: PO, Medic al 00 Drug form: [place] TAB, Daily, Dosing Weight 113.636, kg, Start date: 07/20/12 9:00:00, Duration: 30 day, Stop date: 08/18/12 9:00:00 Zoloft 2011-08 No Baudilio 100 mg, 1 2-03 Castellanos tab, [place] 15:00: Chahil Route: PO, Medic al 00 Drug form: [place] TAB, Daily, Dosing Weight 113.636, kg, Start date: 07/20/12 9:00:00, Duration: 30 day, Stop date: 08/18/12 9:00:00 Wellbutrin 2011-08 No Baudilio 300 mg, 2 2-03 Castellanos tab, [place] 15:00: Chahil Route: PO, Medic al 00 Drug form: [place] ERTAB, Daily, Dosing Weight 113.636, kg, Start date: 07/20/12 9:00:00, Duration: 30 day, Stop date: 08/18/12 9:00:00 influenza 2011-08 No SYSTEM 0.5 ml, virus 2-03 SYSTEM Route: IM, [place] vaccine, 15:00: Drug Form: Med ical inactivated 00 INJ, Start Ce nter date: 07/20/12 9:00:00, Stop date: 07/20/12 9:00:00 Saline 2011-08 No Baudilio 5 ml, MH Flush 0.9% 09-20 Emanuel Route: [place] 03:00: Chahil IVP, Drug Medica l 00 Form: INJ, Center Dosing Weight 113.636, kg, Q12H, Start date: 07/19/12 21:00:00, Duration: 30 day, Stop date: 08/18/12 9:00:00 famotidine 2011-08 No Baudilio 20 mg, 1 MH 09-20 Castellanos tab, [place] 03:00: Chahil Route: PO, Medic al 00 Drug form: Center TAB, Q12H, Dosing Weight 113.636, kg, Start date: 07/19/12 21:00:00, Duration: 30 day, Stop date: 08/18/12 9:00:00 Visipaque 2011-08 No Prashanth 100 mL, MH 320mg/ml 09-19 Pelon Route: [place] 20:56: Dent IVP, Drug Medica l 00 Form: Center SOLN, Dosing Weight 113.636, kg, ONCALL, STAT, Start date: 07/19/12 14:56:00, Duration: 1 doses or times, Dose = 2.2ml/kg, Max dose = 150mlDose = 2.2ml/kg, Max dose = 150ml enoxaparin 2011-08 No Baudilio 40 mg, 0.4 MH 09-19 Emanuel mL, Route: [place] 17:00: Chahil SUB-Q, Medical 00 Drug form: [place] INJ, Q24H, Dosing Weight 113.636, kg, Start date: 07/19/12 11:00:00, Duration: 30 day, Stop date: 08/17/12 11:00:00 hydromorpho 2011-08 No David Agustin 1 mg, 0.5 MH ne 09-19 Spicer mL, Route: [place] 16:49: IVP, Drug Medical 00 form: INJ, [place] ONCE, Dosing Weight 113.636, kg, Priority: STAT, Start date: 07/19/12 10:49:00, Stop date: 07/19/12 10:49:00 Plavix 2011-08 No Anita Marcelino 75 mg, 1 MH 09-19 [place] tab, [place] 16:17: Route: PO, Medical 00 Drug form: Center TAB, Daily, Dosing Weight 113.636, kg, Priority: STAT, Start date: 07/19/12 10:17:00, Duration: 30 day, Stop date: 08/18/12 9:00:00 Saline 2011-08 No Baudilio 5 ml, MH Flush 0.9% 09-19 Emanuel Route: [place] 16:05: Chahil IVP, Drug Medica l 00 Form: INJ, Center Dosing Weight 113.636, kg, PRN, PRN Line Flush, Start date: 07/19/12 10:05:00, Duration: 30 day, Stop date: 08/18/12 10:04:00 acetaminoph 2011-08 No Baudilio 650 mg, 2 MH en 09-19 Castellanos tab, [place] 16:05: Chahil Route: PO, Medic al 00 Drug form: Center TAB, Q4H, Dosing Weight 113.636, kg, PRN Pain/Fever , Start date: 07/19/12 10:05:00, Duration: 30 day, Stop date: 08/18/12 10:04:00 Sodium 2011-08 No Baudilio 1,000 mL, MH Chloride 09-19 Emanuel Rate: 75 [place] 0.9% IV 16:05: Chahil ml/hr, Medica l 1,000 mL 00 Infuse Center over: 13.3 hr, Route: IV, kg, Total Volume: 1,000, Start date: 07/19/12 10:05:00, Duration: 30 day, Stop date: 08/18/12 10:04:00 Navane 2011-08 Yes 20 mg, PO, 2-02 Daily, [place] 13:02: Substituti Medical 47 on Allowed Center Haldol 2011-08 Yes Baudilio 2 mg, PO, 2- Castellanos Daily, [place] 13:02: Chahil Substituti Medic al 42 on Allowed Center Wellbutrin 2011-08 Yes Baudilio 300 mg, M H 2- Castellanos PO, Daily, [place] 13:02: Chahil Substituti Medic al 38 on Allowed Center Zoloft 2011-08 Yes Baudilio 100 mg, 2-02 Castellanos PO, Daily, [place] 13:02: Chahil Substituti Medic al 34 on Allowed Center clonidine 2011-08 Yes Baudilio 0.3 mg, 2-02 Castellanos PO, TID, [place] 13:01: Chahil Substituti Medic al 59 on Allowed Center promethazin 2011-08 No David Velez 25 mg, 1 MH e 2- Spicer mL, Route: [place] 12:57: IVPB, Drug Medical 00 form: INJ, Center ONCE, Dosing Weight 113.636, kg, Priority: STAT, Start date: 07/19/12 6:57:00, Stop date: 07/19/12 6:57:00 hydromorpho 2011-08 No David Velez 1 mg, 0.5 MH ne 2- Spicer mL, Route: [place] 12:56: IVP, Drug Medical 00 form: INJ, Center ONCE, Dosing Weight 113.636, kg, Priority: STAT, Start date: 07/19/12 6:56:00, Stop date: 07/19/12 6:56:00 Lisinopril Lisinopril Yes James [address] [facility] Wellbutrin Wellbutrin Yes James [address] [facility] Aspir-81 Aspir-81 Yes James [address] [facility] Potassium Potassium Yes James [address] [facility] Chloride Ch[facility]ide [facility] Lipitor Lipitor Yes James [address] [facility] Ambien [facility]ien Yes James [facility] Symbicort Symbicort Yes James [address] [facility] Lasix Lasix Yes James 0.5 tablet [facility] Promethazin Promethazin Yes James TAKE ONE [facility] HCl e HCl [facility] TABLET BY [facility] EVERY 12 l HOURS Outpati NEEDED FOR ent NAUSEA AND Clinics VOMITING Zoloft Zoloft Yes James [facility] Abilify Abilify Yes James [address] [facility] Metoprolol Metoprolol Yes James [address] Tartrate Tartrate [facility] with food [facility] Eliquis Eliquis Yes James as [facility] Vital Signs Vital Name Observation Time Observation Value Comments Source Systolic (mm Hg) 2019-03-13 01:15:00 [facility] Diastolic (mm Hg) 2019-03-13 01:15:00 [facility] Temperature Oral (F) 2019-03-13 01:15:00 97.0 F [facility] Respitory Rate 2019-03-13 01:15:00 [facility] Heart Rate 2019-03-12 22:53:00 [facility] Respitory Rate 2019-03-12 22:07:00 [facility] Center Systolic (mm Hg) 2019-03-12 22:07:00 [facility] Diastolic (mm Hg) 2019-03-12 22:07:00 [facility] Heart Rate 2019-03-12 22:07:00 [facility] Systolic (mm Hg) 2019-03-12 20:52:00 [facility] Diastolic (mm Hg) 2019-03-12 20:52:00 [facility] Temperature Oral (F) 2019-03-12 20:52:00 97.3 F [facility] Respitory Rate 2019-03-12 20:52:00 [facility] Heart Rate 2019-03-12 20:52:00 [facility] Temperature Oral (F) 2019-03-12 16:26:00 97.3 F [facility] Weight 2019-03-10 08:42:00 [facility] Weight 2019-03-10 08:31:00 [facility] Height 2019-03-10 08:31:00 160.02 cm [facility] BMI Calculated 2019-03-10 08:31:00 [facility] Weight 2019-03-09 20:31:00 [facility] BMI Calculated 2019-03-09 20:31:00 [facility] Height 2019-03-09 20:31:00 172.72 cm [facility] Temperature Oral (F) 2015-03-22 21:22:00 97.5 F [facility] Heart Rate 2015-03-22 21:22:00 [facility] Respitory Rate 2015-03-22 21:22:00 [facility] Systolic (mm Hg) 2015-03-22 21:22:00 [facility] Diastolic (mm Hg) 2015-03-22 21:22:00 [facility] Heart Rate 2015-03-22 17:00:00 [facility] Respitory Rate 2015-03-22 17:00:00 [facility] Temperature Oral (F) 2015-03-22 17:00:00 97.4 F [facility] Systolic (mm Hg) 2015-03-22 17:00:00 [facility] Diastolic (mm Hg) 2015-03-22 17:00:00 [facility] Systolic (mm Hg) 2015-03-22 14:14:00 [facility] Diastolic (mm Hg) 2015-03-22 14:14:00 [facility] Heart Rate 2015-03-22 14:14:00 [facility] Temperature Oral (F) 2015-03-22 14:14:00 97.8 F [facility] Respitory Rate 2015-03-22 14:14:00 [facility] Weight 2015-03-17 00:52:00 [facility] Height 2015-03-17 00:52:00 160.02 cm [facility] BMI Calculated 2015-03-17 00:52:00 [facility] Temperature Oral (F) 2014-11-01 00:46:00 98.1 F [facility] Heart Rate 2014-11-01 00:46:00 [facility] Respitory Rate 2014-11-01 00:46:00 [facility] Systolic (mm Hg) 2014-11-01 00:46:00 [facility] Diastolic (mm Hg) 2014-11-01 00:46:00 [facility] Temperature Oral (F) 2014-10-31 21:18:00 98.6 F [facility] Heart Rate 2014-10-31 21:18:00 [facility] Respitory Rate 2014-10-31 21:18:00 [facility] Systolic (mm Hg) 2014-10-31 21:18:00 [facility] Diastolic (mm Hg) 2014-10-31 21:18:00 [facility] Temperature Oral (F) 2014-10-31 15:55:00 98.2 F [facility] Respitory Rate 2014-10-31 15:55:00 [facility] Systolic (mm Hg) 2014-10-31 15:55:00 [facility] Diastolic (mm Hg) 2014-10-31 15:55:00 [facility] Heart Rate 2014-10-31 15:55:00 [facility] Weight 2014-10-26 02:54:00 [facility] BMI Calculated 2014-10-26 02:54:00 [facility] Height 2014-10-26 02:54:00 160.02 cm [facility] Diastolic (mm Hg) 2013-11-14 19:30:00 [facility] Heart Rate 2013-11-14 19:30:00 [facility] Systolic (mm Hg) 2013-11-14 19:30:00 [facility] Respitory Rate 2013-11-14 19:30:00 [facility] Temperature Oral (F) 2013-11-14 19:30:00 98.3 F [facility] Heart Rate 2013-11-14 17:18:00 [facility] Respitory Rate 2013-11-14 17:18:00 [facility] Temperature Oral (F) 2013-11-14 17:18:00 98.0 F [facility] Systolic (mm Hg) 2013-11-14 17:18:00 [facility] Diastolic (mm Hg) 2013-11-14 17:18:00 [facility] Diastolic (mm Hg) 2013-11-14 16:00:00 [facility] Systolic (mm Hg) 2013-11-14 16:00:00 [facility] Temperature Oral (F) 2013-11-14 15:04:00 97.4 F [facility] Respitory Rate 2013-11-14 07:00:00 [facility] Height 2013-11-13 11:04:00 162.56 cm [facility] Weight 2013-11-13 11:04:00 [facility] BMI Calculated 2013-11-13 11:04:00 [facility] BMI Calculated 2013-11-13 08:43:00 [facility] Height 2013-11-13 08:43:00 160.02 cm [facility] Weight 2013-11-13 08:43:00 [facility] Heart Rate 2013-11-13 08:43:00 [facility] Heart Rate 2013-05-12 16:17:00 [facility] Diastolic (mm Hg) 2013-05-12 16:17:00 [facility] Systolic (mm Hg) 2013-05-12 16:17:00 [facility] Respitory Rate 2013-05-12 15:30:00 [facility] Diastolic (mm Hg) 2013-05-12 12:53:00 [facility] Systolic (mm Hg) 2013-05-12 12:53:00 [facility] Respitory Rate 2013-05-12 12:53:00 [facility] Heart Rate 2013-05-12 12:53:00 [facility] Temperature Oral (F) 2013-05-12 12:53:00 99.1 F [facility] Diastolic (mm Hg) 2013-05-12 08:31:00 [facility] Systolic (mm Hg) 2013-05-12 08:31:00 [facility] Respitory Rate 2013-05-12 08:31:00 [facility] Heart Rate 2013-05-12 08:31:00 [facility] Temperature Oral (F) 2013-05-12 08:31:00 99.8 F [facility] Temperature Oral (F) 2013-05-12 04:50:00 99.8 F [facility] Height 2013-05-09 03:31:00 160.02 cm [facility] Weight 2013-05-09 03:31:00 [facility] Respitory Rate 2012-07-22 01:09:00 [facility] Systolic (mm Hg) 2012-07-22 01:09:00 [facility] Diastolic (mm Hg) 2012-07-22 01:09:00 [facility] Temperature Oral (F) 2012-07-22 01:09:00 98.6 F [facility] Heart Rate 2012-07-22 01:09:00 [facility] Diastolic (mm Hg) 2012-07-21 21:10:00 [facility] Systolic (mm Hg) 2012-07-21 21:10:00 [facility] Temperature Oral (F) 2012-07-21 21:10:00 97.2 F [facility] Heart Rate 2012-07-21 21:10:00 [facility] Respitory Rate 2012-07-21 21:10:00 [facility] Temperature Oral (F) 2012-07-21 18:26:00 98.5 F [facility] Heart Rate 2012-07-21 18:26:00 [facility] Respitory Rate 2012-07-21 18:26:00 [facility] Diastolic (mm Hg) 2012-07-21 18:26:00 [facility] Systolic (mm Hg) 2012-07-21 18:26:00 [facility] Weight 2012-07-19 12:37:00 [facility] Height 2012-07-19 12:37:00 160.02 cm [facility] Procedures Procedure Date / Time Performing Clinician Source Performed Spinal puncture, 2015-03-17 20:30:[address] [facility] dical therapeutic, for drainage Center of cerebrospinal fluid (by needle or catheter) Appendectomy [facility] Cholecystectomy [facility] Ankle fusion<sup>1</sup> [facility] Appendectomy [facility] Cholecystectomy [facility] Fixation of fracture using [facility] Hysterectomy [facility] Encounters Start End Encounter Admission Attending Care Care Encounter Source Date/Time Date/Time Type Type Clinicians Facility Department ID 2020-01-12 2020-01-12 [facility] [id number] 16:30:00 16:30:00 [facility] s - [facility] Medicine Medicine Outpati ent Clinics 2020-01-06 2020-01-06 [facility] [id number] 08:06:15 14:20:51 ne Visit Ludwig Gill [id number] Luke 4.2.7.2.686 Rad[id number] [facility] 2019-12-28 2019-12-28 Transition Elenita Douglas [id number] 00:00:00 00:00:00 of Care Jay Gomez [id number] Breanna 4.2.7.2.686 [id number] [facility] 2019-12-27 2019-12-27 [facility] [id number] 14:45:00 14:45:00 [facility] ent [facility] 2019-12-24 2019-12-25 [facility] Cameron Barahona 1.2.840. [id number] 21:02:10 19:40:00 Encounter Oscar Burton 350.1.13.10 [facility] 4.2.7.2.686 [id number] 2019-11-04 2019-11-16 [facility] [id number] 11:37:36 14:07:57 ne Visit Ludwig Gill 350.1.13.10 [place] 4.2.7.2.686 Radha [id number] [address] 2019-09-27 2019-09-27 [facility] [id number] 15:00:00 15:00:00 [place] ent [facility] 2019-03-09 2019-03-13 Inpatient MHIEALT [facility] [id number] MH 20:30:52 02:00:00 [place] 00 [facility] 2019-03-09 2019-03-12 Outpatient Natasha [facility] [id number] 15:30:52 21:00:00 Vonda Meade 00 2019-03-09 2019-03-09 Inpatient E [facility] MED [id number] [facility] 18:36:00 15:30:00 2015-03-16 2015-03-23 Inpatient MHIEALT [facility] [id number] MH 23:33:00 01:09:00 [place] 11 [facility] 2015-03-16 2015-03-22 Outpatient Yissel [facility] [id number] 18:33:00 20:09:00 Gael Stephenson 11 2014-10-26 2014-11-01 Inpatient MHIEALT [facility] [id number] MH 01:37:00 01:05:00 [place] 69 [facility] 2014-10-25 2014-10-31 Outpatient Radha MHIEALT [facility] [id number] 20:37:00 20:05:00 Wilberto Olivier 2013-11-13 2013-11-14 Inpatient MHIEALT [facility] [id number] MH 08:43:00 23:45:00 [place] [id number] 2013-11-13 2013-11-14 Outpatient DEREJE GarciaALT MHRADHAALT [id number] 03:43:00 18:45:00 Wilberto 2013-05-08 2013-05-12 Inpatient MHIEALT [facility] [id number] MH 16:15:00 14:00:00 Medical 64 [facility] 2012-07-19 2012-07-21 Inpatient MHIEALT [facility] [place] [id number] MH 10:05:00 21:30:00 Medical 37 [facility] Results Test Description Test Time Test Comments Results Result Comments Source CHEM PANEL 2019-03-12 2.6 [facility] 08:51:00 Center CHEM PANEL 2019-03-12 101 [facility] 08:51:00 Center CHEM PANEL 2019-03-12 8.2 [facility] 08:51:00 Center CHEM PANEL 2019-03-12 97 [facility] 08:51:00 Center CHEM PANEL 2019-03-12 3.3 [facility] 08:51:00 Center CHEM PANEL 2019-03-12 110 [facility] 08:51:00 Center CHEM PANEL 2019-03-12 15.3 [facility] 08:51:00 Center CHEM PANEL 2019-03-12 21 [facility] 08:51:00 Center CHEM PANEL 2019-03-12 5 [facility] 08:51:00 Center CHEM PANEL 2019-03-12 0.64 [facility] 08:51:00 Center CHEM PANEL 2019-03-12 143 [facility] 08:51:00 Center CHEM PANEL 2019-03-12 1.9 [facility] 08:51:00 Center HEMATOLOGY 2019-03-12 0.1 [facility] 08:51:00 Center HEMATOLOGY 2019-03-12 3.0 [facility] 08:51:00 Center HEMATOLOGY 2019-03-12 1.2 [facility] 08:51:00 Center HEMATOLOGY 2019-03-12 62.0 [facility] 08:51:00 [place] HEMATOLOGY 2019-03-12 2.6 [facility] 08:51:00 [place] HEMATOLOGY 2019-03-12 0.4 [facility] 08:51:00 [place] HEMATOLOGY 2019-03-12 29.6 [facility] 08:51:00 [place] HEMATOLOGY 2019-03-12 4.2 [facility] 08:51:00 [place] HEMATOLOGY 2019-03-12 0.3 [facility] 08:51:00 [place] HEMATOLOGY 2019-03-12 5.5 [facility] 08:51:00 [place] HEMATOLOGY 2019-03-12 3.64 [facility] 08:51:00 [place] HEMATOLOGY 2019-03-12 10.5 [facility] 08:51:00 [place] HEMATOLOGY 2019-03-12 194 [facility] 08:51:00 [place] HEMATOLOGY 2019-03-12 8.0 [facility] 08:51:00 [place] HEMATOLOGY 2019-03-12 16.7 [facility] 08:51:00 [place] HEMATOLOGY 2019-03-12 8.9 [facility] 08:51:00 [facility] 2019-03-12 08:51:00 Test Item Value Reference Range Interpretation Comme nts MCH (test code = MCH) 29.0 pg 27.0-31.0 [facility]villeMkihjpDPNWFKIRCS8389-43-28 08:51:[address] [place] [address] YLCCAWPGHM1199-85-02 08:51:[address] [place], [place] [address]HtmxuqRWMYYVJCFC2111-10-21 08:51:[address] [place], [place] [address]PARATHYROID EPEGYVB5008-81-90 08:51:001.05[facility]villePARATHYROID OORLNIF0190-43-93 08:51:001.05[facility]villeCHEM GPMKE3214-56-84 21:57:0083[facility]villeCHEM OIOAX8193-23-29 21:57:[address] [place], [place] [address]CHEM SEYKX9518-53-65 21:57:[address] [place], [place] [address]CHEM GPWMB9256-03-11 21:57:0025[facility] PANEL 2019-03-11 21:57:59720JHValley [facility] Center – BrownsvilleCHEM MGTZU8546-84-49 21:57:003.[address] [place], [place] [address]CHEM KZAGA9744-82-57 21:57:000.80[facility]villeCHEM PSCKV9832-33-03 21:57:11725WUVal[facility] – BrownsvilleCHEM AVXFO8392-63-69 21:57:00 142[facility]villeCHEM PFVQE4554-92-14 21:57:004[facility] PARATHYROID EMQFVZB3113-87-18 21:57:001.07[facility]villePARATHYROID VSJMKCV7420-28-74 21:57:001.[address] [place], [place] [address]URINE AND CPZQQ7166-88-12 21:57:004[facility] APHAT7380-73-27 21:57:00Negative (03/11/19 4:57 PM)[facility] MDNED0750-86-25 21:57:00 <1.0[facility] FMENM4679-24-20 21:57:00Negative (03/11/19 4:57 PM)[facility] QVCTI9618-58-02 21:57:00 Negative *NA*(03/11/19 4:57 PM)[facility] PHSKF1726-22-14 21:57:00Negative (03/11/19 4:57 PM)[facility] STOOL 2019-03-11 21:57:001[facility] LSYNS8116-69-37 21:57:00 Yellow *NA*(03/11/19 4:57 PM)[facility] KIZWQ9420-97-23 21:57:00Slight *ABN*(03/11/19 4:57 PM)[facility] ST[facility]OL 2019-03-11 21:57:00 Test Item Value Reference Range Interpretation Comments UA Spec Grav (test code = UA Spec 1.016 1 Grav) [facility] TLDWP2333-57-13 21:57:00 Test Item Value Reference Range Interpretation Comments UA pH (test code = UA pH) 8.0 1 5.0-8.0 [facility] MKEG1318-10-16 21:57:007.4[facility] URINE MWLY1826-64-41 21:57:40919KIVal[facility]villeURINE DBCA2792-87-17 21:57:66276SVVal[facility]villeURINE VQVG3405-93-40 21:57:97611EGVal[facility]villeURINE RHOE3229-29-48 21:57:00Negative (03/11/19 4:57 PM)[facility]villeCHEM RPBGA3857-83-69 09:03:63175PXVal[facility]villeCHEM PANEL 2019-03-11 09:03:002.9[facility]villeCHEM MNZAL4170-14-55 09:03:59202NQVal[facility]villeCHEM KSUHB8431-42-37 09:03:000.51[facility]villeCHEM HZENJ6722-71-32 09:03:004[facility]villeCHEM SRSSO0025-17-68 09:03:0079 [facility]villeCHEM TLYLY5528-47-05 09:03:007.6[facility] CHEM RNFVZ0726-04-40 09:03:009.9[facility]villeCHEM ALERP7853-54-25 09:03:0027[facility]villeCHEM YAONI1786-23-69 09:03:84297BHVal[facility] – BrownsvilleCHEM TUQBN1141-84-97 09:03:003.7[facility]villeCHEM PANEL 2019-03-11 09:03:002.0[facility] BrownsvilleRaxdbqIKPMFQRMNM9712-87-10 09:03:[address] [place], [place] [address]DlxpekGQSNGGBGVA8245-82-02 09:03:91703ANVal[facility] NAQPWAIGJO2175-09-01 09:03:[address] [place], [place] [address]PpznutYWVXOUTNST6267-96-60 09:03:00 Test Item Value Reference Range Interpretation Comments MCH (test code = MCH) 29.0 pg 27.0-31.0 [facility]villeJexansQAIPZHVYAI6812-88-05 09:03:0033.0[facility] PMVKBOQLWR7306-04-65 09:03:003.64[facility] BrownsvilleJtktlzQDPQDUPZMZ1097-43-34 09:03:0010.[address] [place], [place] [address]AzkvboLIZOHOMCNS2276-30-43 09:03:009.3MAdventhealthXtcqbgULSZJWMVIK7866-92-22 09:03:0087.8[facility]villeHEMATOLOGY 2019-03-11 09:03:0032.0[facility]villeCkwgpaLYZXAMXQNT8071-04-36 09:03:004.0[facility] BrownsvillePlhnehSOWMTHKNUA2075-87-85 09:03:0062.5[facility] VCZCHMYVTN8961-22-67 09:03:0027.8[facility] BrownsvilleKpagbaBUGCBYVCHE2699-72-54 09:03:004.5[facility] BrownsvilleHkgstdRDFKCYJBDO3314-72-55 09:03:005.8[facility]villeNodndcUNEEJUTEPX7192-22-69 09:03:002.6MAdventhealthHEMATOLOGY 2019-03-11 09:03:000.4[facility] BrownsvilleLtdeqhELTZWGDNUF3024-30-74 09:03:000.4[facility]villeKuqmwvKQVCJHDVSO1542-65-64 09:03:001.2[facility] WJFCOOFOBJ7076-70-04 09:03:000.[address] [place], [place] [address]PARATHYROID PROFILE 2019-03-11 09:03:000.91[facility] BrownsvillePARATHYROID NINYOSV8050-73-37 09:03:[address] [place], [place] [address]TgzqxhZDUAPVKYTP1672-79-60 19:00:000.3MAdventhealthLukngwOIVJCWJTSW1092-09-60 19:00:000.4[facility]villeHEMATOLOGY 2019-03-10 19:00:002.8[facility] BrownsvilleFcpzmqGKIQBEHGKD2918-43-83 19:00:[address] [place], [place] [address]MljbfyBZSPLVSBWA5641-84-93 19:00:[address] [place] [address] RNVHWGNRMY6780-98-66 19:00:[address] [place], [place] [address]JklrlqMMILBVOYET8938-04-40 19:00:[address] [place], [place] [address]OwkpyvSITJVXPKNT6436-30-70 19:00:004.5[facility] BrownsvilleBjjjglJPBEADKISU9225-23-27 19:00:005.8[facility]villeHEMATOLOGY 2019-03-10 19:00:003.[address] [place], [place] [address]ItoprkOQKZYBUZAY0864-91-08 19:00:007.9[facility] BrownsvilleByzwsyIPOVDBKZGF9346-94-32 19:00:0034.[address] [place] [address] COJEUDLJXR0337-27-79 19:00:00 Test Item Value Reference Range Interpretation Comments MCH (test code = MCH) 28.6 pg 27.0-31.0 [facility] BrownsvilleDnolscGDFREOIZIC0391-83-91 19:00:0088.5[facility] ISGQLBYBXY2985-76-81 19:00:88634HCVal[facility] – BrownsvilleQknvdcKZWQFGUKUQ6415-44-62 19:00:0016.7[facility] BrownsvilleClfnbfMBGKVUGIJG7545-75-74 19:00:0032.3MAdventhealthAbpzajSIMJMQODEX1948-80-23 19:00:0011.2MAdventhealthHEMATOLOGY 2019-03-10 19:00:003.91[facility] BrownsvilleHojbruEGWDRRJNQM5918-08-14 19:00:009.5[facility] BrownsvilleZxpddtGJLJAWFFBC2260-84-82 19:00:00 Test Item Value Reference Range Interpretation Comments INR (test code = INR) 1.06 1 0.85-1.17 [facility] BrownsvilleGfywxwNLHKDUFRWV9692-33-48 19:00:00 Test Item Value Reference Range Interpretation Comments PT (test code = PT) 13.6 s 12.0-14.7 [facility]villeSyoregUWLIQCRKYT4750-49-55 19:00:00 Test Item Value Reference Range Interpretation Comments PTT (test code = PTT) 36.3 s 22.9-35.8 [facility]villeCARDIAC MWHHTUD9762-12-41 11:47:000.30[facility]villeCHEM ZLQZV0843-81-67 11:47:001.[address] [place], [place] [address]CHEM PANEL 2019-03-10 11:47:002.[address] [place], [place] [address]LIPIDS2019-07-24 11:47:00 Test Item Value Reference Range Interpretation Comments VLDL (test code = VLDL) 39 1 [facility]villeLIPIDS2019-07-24 11:47:0036[facility]villeLIPIDS 2019-03-10 11:47:0028[facility]villeLIPIDS2019-07-24 11:47:24152KIVal[facility] Center – BrownsvilleLIPIDS2019-07-24 11:47:94100WGValley [facility] Medical Center – BrownsvilleLIPIDS 2019-03-10 11:47:00 Test Item Value Reference Range Interpretation Comments CHD Risk (test code = CHD Risk) 3.68 1 3.90-5.80 [facility] ZJAJUUDSI7590-24-15 11:47:004.8[facility] BrownsvilleANEMIA LMGBV5964-14-17 09:18:20905XTVal[facility] – BrownsvilleANEMIA STUDY 2019-03-10 09:18:004.4[facility] BrownsvilleCARDIAC HMEMNAI8223-70-99 09:18:00 10[facility]villeCHEM NHEUX3566-78-30 09:18:57143IQVal[facility] QUMCIRNIQD0834-92-27 07:49:00 Test Item Value Reference Range Interpretation Comments PTT (test code = PTT) 42.4 s 22.9-35.8 [facility] BrownsvillePetokfOQTDBXNMTN3335-36-71 07:49:00 Test Item Value Reference Range Interpretation Comments PT (test code = PT) 13.5 s 12.0-14.7 [facility]villePeljxgHZGCYALRQR7322-92-87 07:49:00 Test Item Value Reference Range Interpretation Comments INR (test code = INR) 1.05 1 0.85-1.17 [facility]villeCARDIAC CJZIBHS4900-00-44 07:00:000.48[facility]villeCARDIAC KAYZJNS7474-24-98 22:16:000.50[facility] BrownsvilleCARAC PZXOEGI7630-97-73 22:16:0063[facility] BrownsvilleCHEM HWXWE5592-80-78 22:16:00 1.2MAdventhealthZuhdxpUFZLLQRUAY9916-56-41 22:16:00 Test Item Value Reference Range Interpretation Comments PTT (test code = PTT) 31.7 s 22.9-35.8 [facility] BrownsvilleIshmloGBBTCIKRIJ1430-05-59 22:16:00 Test Item Value Reference Range Interpretation Comments INR (test code = INR) 1.07 1 0.85-1.17 [facility] BrownsvilleWjxkflSSGZTJHUTV8977-55-53 22:16:00 Test Item Value Reference Range Interpretation Comments PT (test code = PT) 13.7 s 12.0-14.7 [facility]villeCHEM WBZAM4395-88-22 09:12:003.5[facility] CHEM JNRUE7699-47-15 09:12:001.8[facility] BrownsvilleJjbazdYUWPLBMQBGPH2389-08-77 09:12:0022[facility] BrownsvilleNossbfIHPDGXLEBAPM3134-55-48 09:12:008.9[facility] BrownsvilleOyhnhyWFOXIEQSGUVW7892-07-32 09:12:[address] [place] [address] DFWCONGTQUSY4786-45-86 09:12:68489IQVal[facility] – BrownsvilleBurluvXEUSXOMHKPUQ3025-60-31 09:12:003.[address] [place], [place] [address]VucntbTQJVNGLSQBSN4994-83-06 09:12:000.9[facility] TnfirkFPAOMBPNIMLA2722-66-38 09:12:23501EWVal[facility] FGHWBRTMNHEH2000-29-31 09:12:0081[facility] BrownsvillePghzisIZWLYUHYIOMI4907-39-02 09:12:0010[facility] BrownsvilleNvtxamGFXFFRVOFCAD3183-48-06 09:12:0075[facility] BrownsvilleVuihmtCVEJQHCIXM8972-62-54 09:12:007.5[facility]villeHEMATOLOGY 2015-03-22 09:12:35410AVVal[facility] BrownsvilleJljrrdZZBBQAYVUW9061-05-28 09:12:0011.7[facility] BrownsvilleNgqnaxDARPXWNENH7469-93-12 09:12:[address] [place] [address] OULNJRPFUB3032-33-76 09:12:[address] [place], [place] [address]HxlasmQGRFUICGHW5396-03-40 09:12:003.87[facility] AaosrxQMLZEEXRMY0977-81-60 09:12:0010.4[facility] BrownsvilleLxacwuTGYFQAANJG7786-37-63 09:12:0031.9[facility]villeHEMATOLOGY 2015-03-22 09:12:00 Test Item Value Reference Range Interpretation Comments MCH (test code = MCH) 26.8 pg 27.0-31.0 [facility] BrownsvilleNlpwcyQZUENUQBZL2207-74-85 09:12:0017.[address] [place] [address] MNTWTOYPQM7145-47-33 09:12:001.0[facility] PjxonfZKECGCSMGY6731-00-41 09:12:007.4[facility] AzxtcgSHXJIERLEJ9072-19-08 09:12:0038.6[facility] RdwffcWBDNUOMAKS6116-25-23 09:12:0052.0[facility]villeHEMATOLOGY 2015-03-22 09:12:001.0[facility] BrownsvilleHfvrgpRBKCXYFQYZ6023-23-15 09:12:006.[address] [place] [address] XdseezQMFIICYUTK3085-60-22 09:12:000.[address] [place] [address] WQVGZYJLHB1970-48-00 09:12:000.9[facility] BrownsvilleSozhcxRXEBQJWFRV3142-41-45 09:12:000.[address] [place], [place] [address]DbupgdQVOVYTDFSH2391-78-44 09:12:004.5[facility] BrownsvilleZeymlzUVDFZLSOTG2509-51-06 16:38:005.0[facility]villeIMMUNOLOGY 2015-03-21 16:38:0014.5[facility] BrownsvilleZhvdogSWCYBXAFGR8470-42-92 16:38:0016.2 [facility]villeAftomwMYMJFBTRMI1461-54-22 16:38:0015.1[facility] MMERNLJJWO8111-48-47 16:38:0049.2MAdventhealthBfrpquOWQYBRQWMO8011-40-38 16:38:000.34[facility] BrownsvilleCudjtkDWNCMXZSIA6573-32-77 16:38:006.8[facility]villeDrjlvlLKVNDQQXLH9867-63-49 16:38:003.35[facility] BrownsvilleIMMUNOLOGY 2015-03-21 16:38:000.99MAdventhealthUruldtEPWZHZYAOB6407-09-10 16:38:001.10 [facility]villeYteysoPHYNHODHUP2902-56-25 16:38:001.03[facility] CHEM LACMM4513-30-30 09:35:63615EAVal[facility] BrownsvilleCHEM MLNGW0511-40-86 09:35:[address] [place], [place] [address]CHEM MWEUN1927-51-58 09:35:003.8[facility]villeCHEM VLZMA7395-57-33 09:35:0021[facility]villeCHEM PANEL 2015-03-21 09:35:68369SOVal[facility] BrownsvilleCHEM OTYHD5676-20-57 09:35:0011[facility] BrownsvilleCHEM NCMJG9417-82-68 09:35:37292BVVal[facility] BrownsvilleCHEM BDRVE1091-48-43 09:35:0083[facility] BrownsvilleCHEM AKUSB8848-10-87 09:35:00 0.7[facility]villeCHEM YXZYP1755-74-18 09:35:0014.8[facility]villeCHEM GSBVH0042-61-69 09:35:001.8[facility]villeCHEM PANEL 2015-03-21 09:35:004.[address] [place], [place] [address]YnpkjnKQHWXNKAUV8309-36-06 09:35:000.1MAdventhealthCsgmpjJNZEIMNBHJ7020-92-26 09:35:000.7[facility] ARTEMOKUKX9693-13-51 09:35:001.0[facility] BrownsvilleVvrzukLBHQXYRMON9275-29-26 09:35:001.2MAdventhealthLayaqsSTDWSALPGV7798-57-10 09:35:003.7[facility]villeSyvzsqLDZMJZAXIW5230-48-68 09:35:005.4[facility]villeHEMATOLOGY 2015-03-21 09:35:006.9[facility] BrownsvillePjrlavNIWFBUKZND2349-89-60 09:35:000.1MAdventhealthKshfnfBELLKNPUPJ0811-61-35 09:35:0054.0[facility] JOIPNISFDP9403-69-02 09:35:0036.9[facility] BrownsvilleWdwajoDMJQYIPNPN7599-28-44 09:35:0032.9[facility]villeMhixpwKZOPZAEWLW4370-91-13 09:35:0010.8[facility] BrownsvilleEglgftFALURBYXZB9130-56-83 09:35:003.91[facility]villeHEMATOLOGY 2015-03-21 09:35:0010.0[facility]villeThtvguDDXVQBZRVK3849-78-84 09:35:0032.9 [facility]villeNxyvdkITPIRBDFDL7528-18-63 09:35:0017.2[facility] PNVFXPKUCY4281-68-39 09:35:00 Test Item Value Reference Range Interpretation Comments MCH (test code = MCH) 27.7 pg 27.0-31.0 [facility]villeSafltaFGDEUNOYVU9340-08-74 09:35:[address]84.[address] [place] [address] FXCOIEQUGF6316-82-10 09:35:007.5[facility] BrownsvilleMopjecPVDKLNOFGB8479-43-59 09:35:03231ZMVal[facility] BrownsvilleEaagugXVILEOOMDA1720-24-88 04:39:036.4[facility] BrownsvilleCHEM SQCHQ6909-61-86 08:41:38624UIVal[facility] BrownsvilleCHEM PANEL 2015-03-20 08:41:42811OZVal[facility] BrownsvilleCHEM PDQEN5966-45-47 08:41:0071[facility]villeCHEM UCZWX0003-70-38 08:41:007[facility]villeCHEM LVVSF8314-34-93 08:41:000.7[facility]villeCHEM SJBBL0277-30-83 08:41:00 3.9[facility]villeCHEM BVJTX7038-64-66 08:41:009.2MAdventhealthCHEM NOYQP4427-58-37 08:41:78420SWVal[facility] BrownsvilleCHEM PANEL 2015-03-20 08:41:0023[facility]villeCHEM WHRYY2816-99-94 08:41:0013.9[facility] BrownsvilleCHEM ALNUJ1932-71-16 08:41:[address] [place], [place] [address]CHEM TIYMG8432-83-46 08:41:003.[address] [place], [place] [address]HootexTEUNNDGJGO4271-93-13 08:41:[address] [place], [place] [address]KhoddsARHRFNXPTC5994-44-43 08:41:55995SXVal[facility] – BrownsvilleYratsyVJTAPSFAJG4801-96-75 08:41:[address] [place], [place] [address]HEMATOLOGY 2015-03-20 08:41:004.[address] [place], [place] [address]ItxkesMGXVUIHCJM5305-19-11 08:41:009.[address] [place], [place] [address]XqatbrTYHSHGLXWU8164-63-56 08:41:0011.[address] [place] [address] WTBXHBFCQJ0300-54-79 08:41:0033.[address] [place], [place] [address]XwqkesBQCTQBPHYD9356-57-04 08:41:0082.[address] [place], [place] [address]BgakrtBCUZCKIKDA7243-51-63 08:41:00 Test Item Value Reference Range Interpretation Comments MCH (test code = MCH) 27.4 pg 27.0-31.0 [facility]villeBscgzcDOBFYSRXUY1184-27-38 08:41:007.7[facility] HUVPYXHAOB8965-03-70 08:41:0055.[address] [place], [place] [address]WcpofxEQCQOUMWMN2215-83-05 08:41:001.9[facility] BrownsvilleTfigjvDQTTLTTLOF6554-29-97 08:41:0035.[address] [place], [place] [address]ExyyyrEPMHQXFJIL8473-25-94 08:41:[address] [place], [place] [address]HEMATOLOGY 2015-03-20 08:41:001.0[facility] BrownsvilleNzlhfcIOTHOWUZPT9433-01-53 08:41:[address] [place], [place] [address]WbuglnDKCRNUECKN4573-28-18 08:41:003.4[facility] SJHGIPKEEM9976-70-55 08:41:000.[address] [place], [place] [address]SakvrtEFGRORNTNC1972-38-83 08:41:[address] [place], [place] [address]HxqdyfBWYVUTQMWL6947-05-99 08:41:[address] [place], [place] [address]FjwltlWHARYRSKLR7670-24-95 08:41:92505HZ[facility]villeHEMATOLOGY 2015-03-19 16:56:000.91[facility] BrownsvilleQtwtysWDFUIIPHVR7168-82-85 16:56:00 Negative (03/19/15 11:56 AM)[facility]villeLowihyRHLLDCYUTW0122-50-53 16:56:00 Non Reactive *NA*(03/19/15 11:56 AM)[facility]villeRcfpijOCRICUKZIP6942-24-61 21:44:00Negative *NA*(03/18/15 4:44 PM)[facility]villeVIRAL - SEROLOGY 2015-03-18 21:44:00<0.90[facility] BrownsvilleCARDIAC ROFZPHI5517-47-24 00:57:00<0.02[facility]villeSugfbkRVPSHJNLTT4332-90-68 18:50:00 Test Item Value Reference Range Interpretation Comments PT (test code = PT) 14.5 s 12.0-14.7 [facility] BrownsvilleFdlxlsSDTKBCRXKQ3676-16-50 18:50:001.12[facility] LDHRJXBKJG3080-54-56 18:50:00 Test Item Value Reference Range Interpretation Comments PTT (test code = PTT) 31.2 s 22.9-35.8 [facility] BrownsvilleCARDIAC VTCPAIU7268-37-78 17:15:00<0.02[facility]villeCHEM YQTSK7874-66-03 17:15:0071.0[facility] BrownsvilleBODY AFBCLU7918-95-75 16:15:0042[facility] BrownsvilleBODY QZDLGI1690-11-02 16:15:00 9[facility] BrownsvilleBODY CKUEQN4117-32-14 16:15:001[facility] BODY RCPDXA5151-83-62 16:15:0090[facility] BrownsvilleBODY PEQVSJ5324-27-85 16:15:00Clear (03/17/15 11:15 AM)[facility] BrownsvilleBODY ETNYJZ4086-81-98 16:15:00Colorless (03/17/15 11:15 AM)[facility] BrownsvilleBODY IKTDQJ8656-83-12 16:15:00 Test Item Value Reference Range Interpretation Comments Tube Num CSF (test code = Tube Num CSF) 3 1 [facility] BrownsvilleBODY XJYMQT2667-76-08 16:15:00Colorless (03/17/15 11:15 AM)[facility] BrownsvilleBODY NJKHLD4055-89-73 16:15:003[facility] BODY QWDPDG0812-57-06 16:15:64747RTVal[facility] – BrownsvilleBODY JMWIOX2285-93-82 16:15:0071[facility] BrownsvilleSyngwtNEUOPGOHMP8431-60-01 16:15:00Non Reactive (03/17/15 11:15 AM)[facility]villeMOLECULAR SZIZCGPCBM0885-42-01 16:15:00 Negative 9(03/17/15 11:15 AM)[facility]villeMOLECULAR DIAGNOSTIC 2015-03-17 16:15:00Negative 8(03/17/15 11:15 AM)[facility]villeVIRAL - AVZBDYKC9060-01-74 16:15:00Negative (03/17/15 11:15 AM)[facility] BACTERIAL - WQVISRPK8011-76-63 12:34:00Negative (03/17/15 7:34 AM)[facility]villeNsanrtHQXZQCBFFZ1962-97-38 04:26:82571YDVal[facility] Medical Center – BrownsvilleBLOOD BANK UXWLJCW5778-99-48 02:18:00Negative (03/16/15 9:18 PM)[facility]villeCHEM CUXJI4307-50-47 02:18:000.7[facility] BrownsvilleCHEM XLACA7946-27-91 02:18:00 12[facility]villeCHEM ZFPDU6156-57-62 02:18:003.9[facility] CHEM VZRZS1342-34-13 02:18:005[facility] BrownsvilleCHEM JDMIQ3406-28-71 02:18:80683KEVal[facility] – BrownsvilleCHEM KOSLW0367-24-07 02:18:000.2MAdventhealthCHEM MUJIO0955-12-38 02:18:0019[facility] BrownsvilleCHEM PANEL 2015-03-17 02:18:006.8[facility]villeCHEM GYJFR1044-33-46 02:18:002.9[facility] BrownsvilleDRUG REWVYS0353-22-07 02:18:00See Note *NA*(03/16/15 9:18 PM) [facility]villeDRUG NGYARZ8210-34-72 02:18:00Negative *NA*(03/16/15 9:18 PM)[facility]villeDRUG GZQTOB8766-97-39 02:18:00Negative *NA*(03/16/15 9:18 PM)[facility]villeDRUG PJBGFZ5310-32-22 02:18:00Negative *NA*(03/16/15 9:18 PM)[facility]villeDRUG GNJUFI5693-77-75 02:18:00 Negative *NA*(03/16/15 9:18 PM)[facility]villeDRUG SHZMHC5243-47-46 02:18:00Negative *NA*(03/16/15 9:18 PM)[facility]villeDRUG SCREEN 2015-03-17 02:18:00Negative *NA*(03/16/15 9:18 PM)[facility]villeDRUG ZBLPMU8939-40-64 02:18:00Negative *NA*(03/16/15 9:18 PM)[facility] DRUG XATYQU2576-29-94 02:18:00Negative *NA*(03/16/15 9:18 PM)[facility]villeDRUG GACEEE3485-11-70 02:18:00Negative *NA*(03/16/15 9:18 PM)[facility] BrownsvilleRvitjuMTMPFCSOKW2513-55-90 02:18:00 Test Item Value Reference Range Interpretation Comments PTT (test code = PTT) 29.7 s 22.9-35.8 [facility] BrownsvillePARATHYROID CFTWOUL4864-52-92 02:18:[address] [place], [place] [address]PARATHYROID JAJIANG9692-14-45 02:18:001.[address] [place] [address] URINE AND KPQRU0675-86-96 02:18:00Negative *NA*(03/16/15 9:18 PM)[facility]villeURINE AND OBZZD9501-66-64 02:18:00Negative (03/16/15 9:18 PM)[facility]villeUR[facility] AND QRCLD7523-03-56 02:18:00Negative (03/16/15 9:18 PM)[facility]villeURINE AND IUIIJ9097-41-11 02:18:00Negative (03/16/15 9:18 PM) [facility]villeUR[facility] AND DTWWA4356-76-15 02:18:00<1[facility] QUVTO1119-61-91 02:18:007.0[facility]villeURINE AND MBRTK9405-27-61 02:18:00Clear (03/16/15 9:18 PM)[facility]villeURINE AND FHVIB4862-39-55 02:18:001.009[facility]villeURINE AND COBWD1456-45-02 02:18:00Light Yellow *NA*(03/16/15 9:18 PM)[facility]villeHEMATOLOGY 2014-10-31 13:30:00 Test Item Value Reference Range Interpretation Comments PTT (test code = PTT) 36.1 s 22.9-35.8 [facility] BrownsvilleRpmophGPFVPDGKCB6488-96-20 13:30:00 Test Item Value Reference Range Interpretation Comments PT (test code = PT) 14.6 s 12.0-14.7 [facility] BrownsvilleSuyroqBOQZNWNQGI0976-15-63 13:30:001.13[facility] UOGOYMLTCT7248-68-50 13:30:777147LHVal[facility] – BrownsvilleAkwutgKOKFTHOXCM5460-41-40 13:30:0025.2MAdventhealthCHEM RYTIC1171-39-56 06:18:003.[address] [place], [place] [address]CHEM JVPSR3076-02-32 06:18:001.8[facility] UIEMKXSWQZHU3880-83-47 06:18:[address] [place], [place] [address]SoojibOBKVMDYLEONW3427-08-67 06:18:34877KLVal[facility] BrownsvilleGfwcdgRDILJOKOPAMU2874-92-88 06:18:39237IFVal[facility] BrownsvilleHdyrkcGCBOIQXBMWFD7670-24-30 06:18:87215LAVal[facility] CDTWMYTTYVNZ5550-19-69 06:18:[address] [place], [place] [address]RkqewqWGXOUQJPDJRB8547-84-18 06:18:008.5[facility] BrownsvilleCldbflWIHSAFAHCZTL0377-64-93 06:18:0025[facility] BrownsvilleInppitZQSUUVRUIBKL3487-05-55 06:18:000.6[facility] OXOZRFVRLPOB6018-55-39 06:18:0062[facility] BrownsvilleUldnjnMEAQHZFWLDZW6641-82-16 06:18:006[facility] BrownsvilleKarfnsRZIAJHCTZQ8977-52-74 06:18:[address] [place], [place] [address]VtdsdbHQYLEXPTPF8603-56-52 06:18:005.7[facility]villeHEMATOLOGY 2014-10-31 06:18:005.0[facility] BrownsvilleShinzgJQHWCQBRIN1937-39-64 06:18:0031.1MAdventhealthWrlljoVCENMEQXSY7424-68-72 06:18:005.7[facility] MGUBHJNJSP2247-63-54 06:18:0057.7[facility] BrownsvilleNhtrkkLRPDWNIDGP7837-46-29 06:18:000.5[facility] BrownsvilleQdcezfZSPGRDSRLU9381-27-89 06:18:000.6MAdventhealthMvurqkUIZGKFAWRK7769-17-62 06:18:000.5[facility]villeHEMATOLOGY 2014-10-31 06:18:003.[address] [place], [place] [address]IhudneEBLRNIOWAS9645-24-53 06:18:001.08[facility] BrownsvilleWdhhsoOOYMZAXGWH1835-92-86 06:18:00 Test Item Value Reference Range Interpretation Comments PTT (test code = PTT) 33.9 s 22.9-35.8 [facility] BrownsvilleBfffcmKEZGYUIBNM6216-36-87 06:18:00 Test Item Value Reference Range Interpretation Comments PT (test code = PT) 14.1 s 12.0-14.7 [facility] BrownsvilleMwxmraMHSZONHFPR5172-65-91 06:18:0010.0[facility] RRPFBNCOZU7250-50-35 06:18:003.22[facility] BrownsvilleDijordDRDTWYZYPR5061-13-81 06:18:0028.9[facility] BrownsvilleGnwphdLOYWNBWEZP1493-00-31 06:18:009.7[facility] BrownsvilleTkkgwxUNBNXUGJHR9955-38-80 06:18:0033.4[facility]villeHEMATOLOGY 2014-10-31 06:18:00 Test Item Value Reference Range Interpretation Comments MCH (test code = MCH) 30.0 pg 27.0-31.0 [facility] BrownsvilleYtwxmoSGEXDFBGKP0374-36-96 06:18:0089.8[facility] YBKIITIXAB7036-07-73 06:18:008[address] [place], [place] [address]DugbznYNDXPZAHKF7594-84-44 06:18:72267CHVal[facility] Center – BrownsvilleNjjhuaIUPVNTZWVN7263-66-41 06:18:0016.4[facility] BrownsvillePARATHYROID XINKDHP9272-76-19 06:18:001.08[facility] PARATHYROID URAKPVK8238-52-21 06:18:001.05[facility] BrownsvilleCARDIAC ENZYMES 2014-10-30 07:00:0070[facility] BrownsvilleCHEM SCLZD0029-55-86 07:00:003.2MAdventhealthCHEM XTMXI2959-08-47 07:00:001.8[facility] EGTVNJUKCFEG6921-79-30 07:00:0010.6MAdventhealthEduqwxTHJINKTDRYMZ2020-61-69 07:00:0079[facility]villeKjgyoqLYIRPZWPCTNP8086-28-08 07:00:008[facility] BrownsvilleHcybymIANXIBLSASSG3117-04-29 07:00:000.6[facility] IICHFYQCZJEG2100-44-33 07:00:0027[facility] BrownsvilleAclmucDXVBAQEQBWCJ9726-06-65 07:00:[address] [place], [place] [address]CrehtdDOFYBCEBIODS0501-93-27 07:00:003.6MAdventhealthUxdlmaFLZNCYJILGFC6279-36-28 07:00:04445JK[facility] SHMMAAWNIPDV0590-88-93 07:00:54497DYVal[facility] BrownsvilleRaldrzILPIBBGMXSRP4944-84-25 07:00:94860HGVal[facility] BrownsvillePtcshdVGKLRMEXFW6092-52-67 07:00:000.4[facility] BrownsvilleAbtakkEMTRDDHZKO0851-71-11 07:00:004.9[facility]villeHEMATOLOGY 2014-10-30 07:00:000.[address] [place], [place] [address]KryuupLXPQXWKUCN4484-43-73 07:00:0049.4[facility] BrownsvilleXtneqbUZTJAATIEN0252-86-00 07:00:005.8[facility] FBWQWBBIUG9358-47-49 07:00:003.7[facility] BrownsvilleFndbeiUWHAXMYROY4164-44-79 07:00:0041.4[facility] BrownsvilleSzqeazZWFHAQKGVV9131-39-32 07:00:000.4[facility] BrownsvilleYeujmfUGEWBJFTTM5121-56-37 07:00:005.[address] [place], [place] [address]HEMATOLOGY 2014-10-30 07:00:00 Test Item Value Reference Range Interpretation Comments MCH (test code = MCH) 29.4 pg 27.0-31.0 [facility] BrownsvilleRhjmqnQQCQCFEEEI6295-73-37 07:00:0027.5[facility] LGJUJBWZQW0638-32-79 07:00:0016.3MAdventhealthOluupoXEDHVYDAWK3166-35-90 07:00:59253EEVal[facility] BrownsvilleEofigbYGCHDYAURC6268-21-49 07:00:008.4[facility] BrownsvilleCmsqxxCTWEQYAMQA1284-21-82 07:00:009.1MAdventhealthHEMATOLOGY 2014-10-30 07:00:0033.0[facility] BrownsvilleClklcgNYVNYVLKFT1280-20-58 07:00:003.09 [facility] BrownsvilleBfywmyUXLIPOQLBT0890-04-21 07:00:0011.8[facility] JVTNKPOLUP7771-65-45 07:00:0089.0[facility] BrownsvilleJvsovdRMEXTBSKAE5631-88-46 07:00:00 Test Item Value Reference Range Interpretation Comments PT (test code = PT) 13.5 s 12.0-14.7 [facility] BrownsvilleOgzrpxFNIHCBVLXN0864-53-46 07:00:001.03[facility] MTFZFVNVER2449-87-30 07:00:00 Test Item Value Reference Range Interpretation Comments PTT (test code = PTT) 31.6 s 22.9-35.8 [facility] BrownsvillePARATHYROID AZGBONM4868-96-56 07:00:001.10[facility] BrownsvillePARATHYROID SHSPTJC2151-93-82 07:00:001.11[facility] CARDIAC RARSVRY9757-03-24 05:00:0049[facility] BrownsvilleCARDIAC ENZYMES 2014-10-30 05:00:00<0.010[facility] BrownsvilleCARDIAC FACVDTK5104-20-14 05:00:000.02[facility] BrownsvilleYrwfnqNJEGCKPKNK2820-61-94 05:00:000.2MAdventhealthAyvjbeCPLBLAPYEL7181-61-59 05:00:000.[address] [place], [place] [address]HEMATOLOGY 2014-10-30 05:00:000.4[facility] BrownsvilleBlacmhSWJNLGPFOV9951-64-49 05:00:[address] [place], [place] [address]AcqoryNAFMUXWTEN9211-67-24 05:00:[address] [place] [address] SIMNQUJDSG4613-71-38 05:00:004.8[facility] BrownsvilleYtmwcqFXCZLWXVLQ6545-42-13 05:00:[address] [place], [place] [address]UraderTBPTCLRLIB4237-88-38 05:00:[address]53.[address] [place], [place] [address]TpqvxbEOIJOXVCGZ2364-77-86 05:00:0038.5[facility]villeHEMATOLOGY 2014-10-30 05:00:0014.9[facility] BrownsvilleLnigqfNORRJHAKZG9725-14-35 05:00:0032.8 [facility] BrownsvilleKejgutENNLQINLYV8638-35-34 05:00:00 Test Item Value Reference Range Interpretation Comments MCH (test code = MCH) 30.3 pg 27.0-31.0 [facility] BrownsvilleAdhifxXDUGTVJSYA8714-81-81 05:00:0092.2[facility] IHOLJYQTKE7589-33-83 05:00:0016.3MAdventhealthGquqyaXBBMSYUOFP4240-42-10 05:00:004.9[facility] BrownsvilleResqrfBSLKHHIBSC6650-20-31 05:00:001.61[facility] BrownsvilleRwuetfTYIXPRKLVG5522-31-07 05:00:006.0[facility]villeHEMATOLOGY 2014-10-30 05:00:008.1MAdventhealthMindnwGXYBYTFWTR0783-86-00 05:00:0073[facility] BrownsvillePARATHYROID BFKGZIB1819-95-68 05:00:000.63[facility] BrownsvillePARATHYROID BFHIBMR0082-71-36 05:00:000.62[facility] BrownsvilleCARDIAC LSMECHX3355-30-91 23:18:00<0.02[facility] BrownsvilleCARDIAC ENZYMES 2014-10-29 23:18:00<0.010[facility] BrownsvilleCARDIAC WHNBUNI1145-73-40 23:18:0083[facility] BrownsvilleCARDIAC ITXLWHF9909-26-40 23:18:000.7[facility] BrownsvilleCARDIAC NHBGLUE3586-19-55 23:18:000.6[facility] XDOXASDTIN1041-76-11 21:45:888951NQVal[facility] – BrownsvilleDvrdhwCCRDQEZOET6191-59-58 21:45:0023.9[facility] BrownsvilleCHEM CKCSO3169-88-56 10:42:000.7[facility] BrownsvilleCHEM VRIFX5888-73-82 07:00:001.8[facility] [place]CHEM PANEL 2014-10-29 07:00:002.8[facility] [place]villeTtrrfwYQMAFXJIFKBD7613-38-80 07:00:0011.0 [facility] [place]villeFdxpvmARBRSURDOYVQ0302-01-42 07:00:0010[facility] [place] WBXCBRNUVFJF0379-64-05 07:00:0083[facility] [place]villeRjudnbQKIZRNYRYVCY2568-48-56 07:00:02143EBVal[facility] – [place]villeEruflgSQPGSSKDLQOV2149-63-69 07:00:000.7[facility] [place]villeCkhjafPDRGNVAOYNDS6825-50-73 07:00:89175QY[facility] [place] HRLEDHCBXDYN8437-79-71 07:00:0024[facility] [place]villeQyzhruRGRDJTAFUXHC0369-26-97 07:00:007.9[facility] [place]villeBtipjqNFLTHOSDTYOR3434-82-40 07:00:67178IGVal[facility] – [place]villeGtwtkbWDFQFVWQFBHW7953-51-44 07:00:004.0[facility] [place] PEJVVEGONA5057-20-28 07:00:000.1MAdventhealthMbyimkANQGXCSNYY4228-54-49 13:36:009.7[facility] [place]villeCnrcfqVZLNTCYBEH0395-44-76 11:00:00 Test Item Value Reference Range Interpretation Comments Pat Od Value (test code = Pat Od 0.046 1 Value) [facility] [place]villeVktnrlCZYMREXGNK6811-72-10 11:00:00 Test Item Value Reference Range Interpretation Comments Pos CO Value (test code = Pos CO 0.392 1 Value) [facility] [place]villeBtuvaqOOTXEGLRAA4680-35-26 11:00:00Negative (10/28/14 6:00 AM)[facility] [place]villeCHEM PKAXB1032-92-17 15:45:001.0[facility] [place] IHTIWFFGJA1139-20-92 11:00:0024.4[facility] [place]villeTHYROID ZCEHP3274-27-04 11:00:000.120[facility] [place]villeTHYROID PISYY9970-74-02 11:00:000.96[facility] [place]villeCHEM XDLET7770-71-76 07:00:001.6MAdventhealthHEMATOLOGY 2014-10-27 07:00:00Normal (10/27/14 2:00 AM)[facility] [place]HE[facility] 2014-10-27 07:00:00Normal (10/27/14 2:00 AM)[facility] [place]HEMATOLOGY 2014-10-27 01:49:0028[facility] [place]villeHddzbbWPOVHUPFBZ4198-10-78 23:06:00<0.1 [facility] UazxalYOJPOVAAHB5001-32-48 23:00:00<0.1MAdventhealthBLOOD BANK AVJQDLV8490-77-70 21:24:00Negative (10/26/14 4:24 PM)[facility]villeCHEM KMTKH6861-72-67 21:14:0070[facility]villeCHEM PANEL 2014-10-26 21:14:000.15[facility] BrownsvilleNxhutdOFVRXZBOFJ9097-12-95 21:14:09204XIVal[facility] BrownsvilleLotxkjBRQTNMJYBD5692-09-75 21:14:000.21[facility] VNBLNUAYGF0648-51-59 21:14:0029.2MAdventhealthCARDIAC ENZYMES 2014-10-26 18:30:00<0.010[facility]villeCARDIAC AGGSWWC4148-88-21 18:30:000.02[facility]villeCHEM ORDVZ3709-08-02 18:30:000.14[facility] BrownsvilleGugsrmDDRXCTBBLS0479-21-91 18:30:00Normal (10/26/14 1:30 PM)[facility] BrownsvilleZjbxtgPQYDXOLCKF1834-81-96 18:30:00Normal (10/26/14 1:30 PM)[facility] EqsafsDMKHDZYWSG2744-53-73 18:30:000.0[facility]villeHEMATOLOGY 2014-10-26 18:30:001.0[facility]villeCHEM VLRWO8320-46-85 11:15:000.1MAdventhealthCHEM WVZZV9999-41-78 11:15:000.2MAdventhealthCHEM JOOZK6556-79-23 11:15:000.[address] [place], [place] [address]CHEM YGRNX6268-74-61 11:15:00 11[facility]villeCHEM NZORI6773-26-57 11:15:03232KC[facility] CHEM LFAYQ5478-40-95 11:15:002.9[facility]villeCHEM KXWJB1741-34-54 11:15:003.2MAdventhealthCHEM EEQJC1350-17-27 11:15:006.[address] [place], [place] [address]CHEM SUZUO5258-57-77 11:15:0023[facility]villeCHEM PANEL 2014-10-26 11:15:000.9[facility] BrownsvilleSyvlsjXLXVFMMGFB9108-04-13 11:15:000.1MAdventhealthCHEM SJNRJ6339-71-41 09:01:000.05[facility]villeDRUG CFSBDS3200-60-78 06:40:00Negative (10/26/14 1:40 AM)[facility]villeDRUG DIEDFJ9194-51-24 06:40:00Negative (10/26/14 1:40 AM)[facility]villeDRUG PMQHWH3732-77-21 06:40:00Negative (10/26/14 1:40 AM)[facility]villeDR[facility] LLRVAA8925-09-91 06:40:00Positive *ABN*(10/26/14 1:40 AM)[facility] DRUG AFASJJ1156-61-16 06:40:00Negative (10/26/14 1:40 AM)[facility] DRUG TGHKCQ1865-37-94 06:40:00See Note 8(10/26/14 1:40 AM)[facility] DRUG QBZRKQ8073-23-54 06:40:00Negative (10/26/14 1:40 AM)[facility] DRUG QSGFFA1602-83-89 06:40:00Negative (10/26/14 1:40 AM)[facility] URINE AND YGGDN6664-69-01 06:40:00Negative (10/26/14 1:40 AM)[facility]villeUR[facility] AND DKDND2904-21-71 06:40:00Negative (10/26/14 1:40 AM)[facility]villeUR[facility] AND WAHJB6173-95-51 06:40:00Negative (10/26/14 1:40 AM)[facility]villeUR[facility] AND UVIJF2750-60-39 06:40:005[facility] URINE AND GNZNS7173-89-70 06:40:0028[facility]villeUR[facility] AND STOOL 2014-10-26 06:40:00Negative (10/26/14 1:40 AM)[facility]UR[facility] AND UUZTM8743-15-65 06:40:00Negative (10/26/14 1:40 AM)[facility]UR[facility] AND JULFJ5148-27-14 06:40:00Negative (10/26/14 1:40 AM)[facility] URINE AND EYYYU0171-65-76 06:40:00<=1.0[facility]villeUR[facility] AND STOOL 2014-10-26 06:40:00Negative (10/26/14 1:40 AM)[facility]UR[facility] AND RTNHO8462-34-20 06:40:001.009[facility]villeURINE AND XADCX8244-36-07 06:40:00Slight *ABN*(10/26/14 1:40 AM)[facility]villeUR[facility] STOOL 2014-10-26 06:40:00Yellow (10/26/14 1:40 AM)[facility]UR[facility] AND ZITAZ4047-58-47 06:40:005.0[facility]2015-[facility]-11 02:45:00 Test Item Value Reference Range Interpretation Comments Angle (test code = Angle) 76.5 degrees 53.0-72.0 [facility] CenterAT[facility]2015-03-11 02:45:00 Test Item Value Reference Range Interpretation Comments Max Amp (test code = Max Amp) 74.1 mm 50.0-70.0 [facility] BrownsvilleNudrioGRJSZEZUTG1486-74-70 02:45:0014.3MAdventhealth YDWZXNLTQB4171-91-73 02:45:00See Note 23(10/25/14 9:45 PM)[facility] CGUBFUXILQ4028-45-74 02:45:003.4[facility] CenterAT[facility]Y2015-03-11 02:45:00 Test Item Value Reference Range Interpretation Comments K-time (test code = K-time) 1.0 min 1.0-3.0 [facility] BrownsvilleLxeccrIDVKASGUDA4672-87-19 02:45:00 Test Item Value Reference Range Interpretation Comments R-time (test code = R-time) 5.1 min 5.0-10.0 [facility] BrownsvilleAuupupQVKCAKXDSW4897-64-82 02:45:000.9[facility] RMUVWA8830-41-60 02:45:0035[facility] BrownsvilleLIPIDS2015-03-11 02:45:0060[facility] BrownsvilleLIPIDS2015-03-11 02:45:002.76[facility] 2014-10-26 02:45:0054[facility]villeLIPIDS2015-03-11 02:45:92035NQVal[facility] – BrownsvilleLIPIDS2015-03-11 02:45:66759APC[facility]cent [facility] LancasterPECIAL RUVRPWVWP1282-41-80 02:45:005.7[facility]villeCHEM CQTZY0024-19-30 09:44:003.7[facility]villeCHEM EHIQG1319-09-12 09:44:001.7[facility] BrownsvilleLqbbbvRFKHEZNRWDQY0300-92-71 09:44:[address] [place] [address] OBZXDWYKSPJS7910-15-51 09:44:0087[facility] BrownsvilleKabzotSDVAUQETPMAY3993-25-82 09:44:0023[facility] BrownsvilleVrihygQGOONYPGUSKU5275-34-36 09:44:0070[facility] BrownsvilleAwjzawNERIHFPJVRWC3362-60-48 09:44:000.8[facility] ABQINEEGQCAR1635-02-05 09:44:12749UFVal[facility] – BrownsvilleFbdgmsVSSNWWOUYIIZ2980-06-13 09:44:004.[address] [place], [place] [address]YyptxcAECZDRKZCBRH2525-18-51 09:44:88376RCVal[facility] BrownsvilleEuboufIGDGWDAONHRS1980-83-45 09:44:0024[facility] YTQQWJHVZDFC7046-99-11 09:44:008.8[facility] BrownsvilleMvwqxfHWFFRQIMCN8689-62-65 09:44:001.97[facility] BrownsvilleOjllhrOZTDJCGEYV5922-12-38 09:44:00 Test Item Value Reference Range Interpretation Comments PT (test code = PT) 22.1 s 12.0-14.7 [facility] BrownsvilleLIPIDS2014-03-30 09:44:0093[facility]villeLIPIDS 2013-11-14 09:44:0066[facility]villeLIPIDS2014-03-30 09:44:85647AY[facility] BrownsvilleLIPIDS2014-03-30 09:44:46725BW[facility] BrownsvilleLIPIDS 2013-11-14 09:44:0038[facility] BrownsvilleLIPIDS2014-03-30 09:44:005.18[facility]villeDRUG MXYPGX2720-68-08 01:09:21Positive *ABN*(11/13/2013 20:09:21 [place])[facility]villeDRUG LGUWYW8144-44-39 01:09:21 See Note 5(11/13/2013 20:09:21 [place])[facility]villeDRUG ZVQROE0225-17-74 01:09:21Negative *NA*(11/13/2013 20:09:21 [place])[facility]villeDRUG UDDIYB2659-66-66 01:09:21Positive *ABN*(11/13/2013 20:09:21 [place])[facility]villeDRUG DVTRDW8223-11-61 01:09:21 Positive *ABN*(11/13/2013 20:09:21 [place])[facility]villeDR[facility] ZTINDW4847-25-95 01:09:21Negative *NA*(11/13/2013 20:09:21 [place])[facility]villeDRUG KITQXZ7255-17-39 01:09:21Negative *NA*(11/13/2013 20:09:21 [place])[facility]villeDR[facility] TTEENJ4922-01-06 01:09:21 Negative *NA*(11/13/2013 20:09:21 [place])[facility]villeDR[facility] QVPZIF4390-89-45 01:09:21Negative *NA*(11/13/2013 20:09:21 [place])[facility]villeDR[facility] UOMVUM6040-25-90 01:09:21Negative *NA*(11/13/2013 20:09:21 [place])[facility]UR[facility] AND TYBHN7350-05-42 01:09:002[facility]villeURINE AND PGHCU0184-44-71 01:09:00Slight *ABN*(11/13/2013 20:09:00 [place])[facility]UR[facility] STOOL 2013-11-14 01:09:00Yellow *NA*(11/13/2013 20:09:00 [place])[facility]UR[facility] AND SJVZO7282-78-00 01:09:006.5[facility]villeUR[facility] AND VWJJU7476-99-57 01:09:001.024[facility]villeUR[facility] AND STOOL 2013-11-14 01:09:00Negative (11/13/2013 20:09:00 [place])[facility]UR[facility] AND TYTEJ0397-98-91 01:09:00Negative *NA*(11/13/2013 20:09:00 [place])[facility]UR[facility] AND PMBSZ7807-91-20 01:09:00Small *ABN*(11/13/2013 20:09:00 [place])[facility] URINE AND TLZVF8966-08-87 01:09:00Negative (11/13/2013 20:09:00 [place]) [facility]UR[facility] MSTZG3967-36-42 01:09:003[facility]villeUR[facility] AND XHCIT2202-14-70 01:09:001[facility]villeUR[facility] CHEM 2013-11-14 01:09:00Negative (11/13/2013 20:09:00 [place])[facility]villeCARDIAC TZLLZNI2629-05-26 19:43:00<0.010[facility] CARDIAC SCMSYWA8901-19-91 19:43:00<0.02[facility]villeCARDIAC ENZYMES 2013-11-13 19:43:45221EOVal[facility] Center – BrownsvilleCARDIAC USUMTVO0650-60-24 19:43:00 0.5[facility]villeCARDIAC NGHDSGX1780-17-13 19:43:000.5[facility]villeCHEM GWAGQ1605-39-06 19:43:000.[address] [place], [place] [address]CHEM PANEL 2013-11-13 19:43:000.2MAdventhealthCHEM MVMTC2466-48-70 19:43:000.1MAdventhealthCHEM VYUOO7699-93-62 19:43:0024[facility]villeCHEM KDNOG7121-34-35 19:43:000.9[facility]villeCHEM YXDIF5941-62-56 19:43:00 40[facility]villeCHEM WFVSY8572-56-60 19:43:006.4[facility] CHEM RIRYR9293-71-25 19:43:003.0[facility]villeCHEM CAOXD1622-44-37 19:43:003.4[facility]villeCHEM YPYPE4634-66-77 19:43:17963GCCrescent Medical Center LancasterPECIAL WFFBUQIEJ6430-11-36 19:43:005.0[facility] CARDIAC QHDUSLB1400-38-77 09:29:000.[address] [place], [place] [address]CARDIAC ENZYMES 2013-11-13 09:29:00<0.02[facility]villeCARDIAC IWPKQYA9326-98-58 09:29:000.[address] [place], [place] [address]CARDIAC LCYZSLL8300-30-76 09:29:21702ZHVal[facility] BrownsvilleCHEM LAQPA5182-25-50 09:29:0075[facility] BrownsvilleCHEM PANEL 2013-11-13 09:29:0013.[address] [place], [place] [address]CHEM WYPJM1916-33-66 09:29:0026[facility]villeCHEM PPJES1678-47-83 09:29:57444ZMVal[facility] Medical Center – BrownsvilleCHEM DZNDZ8627-21-32 09:29:008.[address] [place], [place] [address]CHEM DUPKD8538-24-68 09:29:00 0.9[facility]villeCHEM SMPII3566-83-72 09:29:0012[facility] CHEM MFYVY3213-73-10 09:29:[address] [place], [place] [address]CHEM PTBZB0521-26-22 09:29:42754WLVal[facility] – BrownsvilleCHEM KMEHS9539-45-43 09:29:0081[facility] BrownsvilleLtiorkDTEQZQKDFN5826-23-93 09:29:[address] [place], [place] [address]HEMATOLOGY 2013-11-13 09:29:001.4[facility] BrownsvilleDpwilfNTXBETOSKC9046-96-66 09:29:000.0[facility] BrownsvilleMosmkaFLWVXZLYCZ6835-16-14 09:29:004.7[facility] NDMEDLXDJR5577-99-62 09:29:006.0[facility] BrownsvilleSfguedMIXUMJBDUK6899-86-56 09:29:000.5[facility] BrownsvilleVztueeCRPQGEDAVD6545-10-74 09:29:0041.0[facility] BrownsvilleUtrpdgOCHQASBQJJ5933-16-62 09:29:0053.5[facility]villeHEMATOLOGY 2013-11-13 09:29:000.[address] [place], [place] [address]RwqfjkSXCGZPJXBG4139-80-36 09:29:000.[address] [place], [place] [address]VpgqhyMLQLMDJDNV4851-98-39 09:29:00 Test Item Value Reference Range Interpretation Comments PT (test code = PT) 24.2 s 12.0-14.7 [facility]villeJdffrbXNKBZGKIAW0715-54-10 09:29:002.22[facility] LAEKICGQTX5225-29-99 09:29:00 Test Item Value Reference Range Interpretation Comments PTT (test code = PTT) 39.1 s 22.9-35.8 [facility] BrownsvilleWbezqoKYHWVFVWTM4427-22-99 09:29:77462HKVal[facility]ville QQEHWOUKDK6479-71-24 09:29:[address] [place], [place] [address]NnotnlCCUUYRKKQN1586-67-00 09:29:007.0[facility] BrownsvilleIfvideHIDBYLMHXR6388-04-89 09:29:0033.7[facility] BrownsvilleOcsuhdQHGBQWQBUB3825-96-91 09:29:00 Test Item Value Reference Range Interpretation Comments MCH (test code = MCH) 28.2 pg 27.0-31.0 [facility] BrownsvilleJeqninQKZTCFZINZ4135-68-61 09:29:004.35[facility] MAIAADFTDR0266-60-63 09:29:0011.4[facility] BrownsvilleQrodoyPAHLAYWLNG3169-57-72 09:29:0083.7[facility] BrownsvilleVgaxbmEYNLTIFLLZ8336-99-24 09:29:[address] [place], [place] [address]UpjorvAAWHNHXRDT7148-30-26 09:29:0036.4[facility] BrownsvilleCHEMISTRY 2013-05-12 07:35:0015.8[facility] BrownsvilleLksmrdINJUQZTTK6425-78-02 07:35:91465YNVal[facility] BrownsvilleDvnkyoFRBCEJAVE0199-10-42 07:35:0023[facility] RUTYCWYLT8021-57-55 07:35:09942VLVal[facility] – BrownsvilleWvqabyPEWLRWHCD1724-31-28 07:35:000.[address] [place], [place] [address]KjbntyVNELEYZOU1189-64-82 07:35:007.7[facility] BrownsvilleVgqzepKCYVDCKNL7217-07-47 07:35:005[facility]villeCHEMISTRY 2013-05-12 07:35:0072[facility] BrownsvilleIzedjeDDPMMKXHW9288-82-63 07:35:85578QQ[facility] BrownsvilleQxckftQDSKJSUEJ4312-71-47 07:35:003.8[facility] UGPWRLWQXU9345-92-51 07:35:007.8[facility] BrownsvilleTgomhdIJPAIHXSPP4519-01-22 07:35:003.5[facility] BrownsvilleXwbswsHCZTPRLFRK7387-75-85 07:35:000.9[facility] BrownsvilleNqljurCBOFLFFEPT5493-72-90 07:35:000.3MAdventhealthHEMATOLOGY 2013-05-12 07:35:000.1MAdventhealthDdbmjoIIQLWQOHKF2514-65-16 07:35:007.4[facility] BrownsvilleQdlnbsGZAVNNNGOZ2251-87-53 07:35:000.7[facility] UOZPYPOQII3062-08-50 07:35:0027.8[facility] BrownsvilleYjogfvRDSPXMMPLD4355-02-90 07:35:002.7[facility] BrownsvilleOpxqugYCIXKNFNZJ0313-09-72 07:35:0061.4[facility] BrownsvilleSnkiqkSQVKGWODUP1061-14-53 07:35:0088.5[facility]villeHEMATOLOGY 2013-05-12 07:35:0015.2MAdventhealthSzaugxPUPLWIHISM8476-97-75 07:35:0032.5 [facility] BrownsvilleLfuxyrGXKMJHAMVT4114-31-41 07:35:05421DGVal[facility]ville QWZBUVVHQJ8097-44-20 07:35:007.7[facility] BrownsvilleQwdeljTKRVHQFVYV6845-29-55 07:35:0012.8[facility] BrownsvilleAywkwdIGRXUSAXIE0143-81-48 07:35:003.82[facility] BrownsvilleLgiabjBNHSHRZMMQ1799-59-87 07:35:0011.0[facility]villeHEMATOLOGY 2013-05-12 07:35:0033.8[facility] BrownsvilleBstxjhKHHAKMKXQX6792-01-88 07:35:00 Test Item Value Reference Range Interpretation Comments MCH (test code = MCH) 28.8 pg 27.0-31.0 N [facility] BrownsvilleBEDSIDE GLUCOSE SAEAUYT0133-42-42 11:52:0089[facility] BrownsvilleNtqlpgYOEKJPDEF7190-72-10 07:00:00Negative (05/11/2013 02:00:00)[facility] BrownsvilleRjoqxaFLTGDGRPX7297-98-69 07:00:00Negative (05/11/2013 02:00:00)[facility]villeAnwctlGPKHAUUUS3673-51-43 07:00:00Negative (05/11/2013 02:00:00)[facility] BrownsvillePlawfnXICSEGALC2036-22-51 07:00:00Negative (05/11/2013 02:00:00)[facility]2013-09-24 07:00:00Positive *ABN*(05/11/2013 02:00:00)[facility]2013-09-24 07:00:00See Note 12(05/11/2013 02:00:00) [place] 903163-09-24 07:00:00Negative (05/11/2013 02:00:00)[facility]2013-09-24 07:00:00Negative (05/11/2013 02:00:00)[place] 903163-09-24 07:00:00Negative (05/11/2013 02:00:00)[place] 903163-09-24 07:00:00Negative (05/11/2013 02:00:00)[facility]2013-09-24 07:00:001.09[facility]2013-09-24 07:00:001.07[facility]2013-09-24 07:00:002.0[facility]2013-09-24 07:00:002.6MAdventhealthSahvpqAAAMRDFAN0000-34-92 07:00:01245MTChildren[facility] of [facility] 2013-05-11 07:00:008.0[facility]2013-09-24 07:00:0017.7[facility]2013-09-24 07:00:007[facility] KELESJPZI6559-39-07 07:00:0059[facility] TylerISTRY2013-09-24 07:00:000.6MAdventhealthKrfvifMQJDFAUKI0047-27-55 07:00:16930GAVal[facility] – BrownsvilleEwsrfiEWRLHMMPE6987-60-64 07:00:003.7[facility] 2013-05-11 07:00:53736OHUT Health TylerISTRY2013-09-24 07:00:0021[facility]2013-09-24 07:00:00See Note 13(05/11/2013 02:00:00) [facility] BrownsvillePlkoexKRABYWBBZK4137-30-46 07:00:[address] [place] [address] JNBDQEIJKV7761-21-41 07:00:81995RXVal[facility] – BrownsvilleAkmvmxPTUKPRCGPR8552-70-77 07:00:008.7[facility] BrownsvilleJmwnjgEXGYMYCQXO3494-98-80 07:00:0088.4[facility] BrownsvilleUbdhnfKHNXXBGLKN7399-16-85 07:00:00 Test Item Value Reference Range Interpretation Comments MCH (test code = MCH) 29.4 pg 27.0-31.0 N [facility] BrownsvilleKavwqsPIAGHQOZDL3498-23-08 07:00:[address] [place] [address] LSOPIRQAHS6071-77-05 07:00:[address] [place], [place] [address]UaijvuMWFRJWRQUW7589-46-50 07:00:003.75[facility] BrownsvilleVmyyfdYUQEMWRBFU5624-50-19 07:00:0011.0[facility] BrownsvilleRsagbpSXXKCRMZHV0701-56-02 07:00:[address] [place], [place] [address]HEMATOLOGY 2013-05-11 07:00:004.4[facility] BrownsvilleQownoaRYRXTZYQKD5248-42-84 07:00:0077.7[facility] BrownsvilleKcijoxLFEDFASETN7502-61-97 07:00:000.8[facility] PSWSBHZJVY7258-50-29 07:00:0013.4[facility] BrownsvilleRypfoiEBNKYIFHTD8326-62-91 07:00:002.7[facility] BrownsvilleLmycekNIGFEGCWUU1973-75-71 07:00:000.8[facility] BrownsvilleFjztgbBSFWDOFOVQ9624-10-54 07:00:001.5[facility] BrownsvilleHEMATOLOGY 2013-05-11 07:00:0015.[address] [place], [place] [address]WkckskZPGRLVHBXE4925-07-06 07:00:000[address] [place], [place] [address]YqoyljYWDWPYCLPE9498-41-50 07:00:[address] [place] [address] BEDSIDE GLUCOSE WFLNLLM9320-60-62 04:53:0079[facility]villeHEMATOLOGY 2013-05-10 23:12:94276FXVal[facility] – BrownsvilleWeewylFEWQMTKZDJ3424-32-34 23:12:00 Positive (05/10/2013 18:12:00)[facility] BrownsvillePvhyaeKYQSQMXFNA2310-89-34 23:12:001.06[facility] BrownsvilleLoipctMEVXWTTMJQ3703-97-83 23:12:0070[facility] BrownsvilleVpzpjoVKWSTMHPXW0857-92-47 23:12:00>100 mm/hr *ABN*(05/10/2013 18:12:00)[facility] BrownsvilleDdoyazMCWKJFDPML2183-58-34 23:12:0035[facility] BrownsvilleRoajrcHINPSFGUPN1262-37-07 23:12:0068[facility] BrownsvilleGhwwewPWUEYNIKOF8437-00-73 23:12:001[facility] BrownsvilleFegyfkQXXFNUFJVP0125-37-80 23:12:001[facility] BrownsvilleDbkbipLFDSYQINPQ9536-86-53 23:12:005.2MAdventhealthIMMUNOLOGY 2013-05-10 23:12:0040[facility] BrownsvilleLgnogvCLPANWGIAV7711-64-14 23:12:51814EPVal[facility] – BrownsvilleUtaiaiQVQWXRJFBZ1438-12-11 23:12:00Negative *NA*(05/10/2013 18:12:00)[facility]villeLmsnktCPEMAFDEWX4586-55-41 23:12:00>190.0[facility] BrownsvilleBACTERIAL - YVLRZLDH3785-35-51 21:41:00Negative (05/10/2013 16:41:00)[facility]villeMICRO MISC - LQPAPVYL3837-22-76 21:41:00Negative 1(05/10/2013 16:41:00)[facility] BrownsvilleBEDSIDE GLUCOSE PPBZNKO4372-15-11 16:57:0096[facility] BrownsvilleYcficuXKLTYTBNKZ5874-45-15 14:50:398[facility] BrownsvilleTzzeqnGLBBVBDHNM5808-60-93 14:50:39Few /LPF *NA*(05/10/2013 09:50:39)[facility] BrownsvilleBrlaakKAKFLTEJGZ6293-03-37 14:50:39<1[facility] PWXRNFGTHT7091-60-23 14:50:39Few /LPF *NA*(05/10/2013 09:50:39)[facility]villeTovbnfKMYRYPYKGV3518-27-06 14:50:39<1[facility] HospitalURINALYSIS 2013-05-10 14:50:39Negative (05/10/2013 09:50:39)[facility] IBITFZEXUX1430-65-58 14:50:39Negative (05/10/2013 09:50:39)[facility]villeBueaukXDBFSUHBZR0172-04-59 14:50:39Negative (05/10/2013 09:50:39)[facility]villeEwaictVHPTUNYUCU7433-75-60 14:50:39Negative mg/dL *NA*(05/10/2013 09:50:39)[facility] 14:50:39Negative *NA*(05/10/2013 09:50:39)[facility]villeQzbdgjEARDQJWFXJ1846-58-31 14:50:39 1.006[facility]2013-09-23 14:50:39Clear (05/10/2013 09:50:39)[facility]-09-23 14:50:39Light Yellow *NA*(05/10/2013 09:50:39)[facility]2013-09-23 14:50:39 Negative mg/dL (05/10/2013 09:50:39)[facility]villeCdiokuQPRBCAWSWQ0923-98-19 14:50:[address] [place], [place] [address]BrjwobLULLRSTTL5144-13-16 07:52:0087[facility] BrownsvilleWunnbfMHOUWHEQM1511-69-11 07:52:95416UN[facility] BrownsvilleFreymfAYJZIARZV3703-21-45 07:52:[address] [place], [place] [address]EqyiztEBONLENYF9756-21-33 07:52:007.[address] [place], [place] [address]CmlrevGOYBYPUVF6748-47-69 07:52:32237KS[facility] 2013-05-10 07:52:003.[address] [place], [place] [address]KizomxWVHFTQRJN4978-96-85 07:52:0024[facility] BrownsvilleLjprkfHGXORYPYW0562-02-59 07:52:000.[address] [address] IKNQFBBAP3917-52-67 07:52:007[facility] BrownsvilleNnvnbbRTYHLXBDZ1097-22-23 07:52:00 51[facility] BrownsvilleYxvfkrEJWODDKHW9596-08-43 07:52:001.[address] [place] [address] QGNGKGICV7155-28-51 07:52:[address] [place], [place] [address]KmkvbiNDSSRQEIAR4137-42-89 07:52:00 Test Item Value Reference Range Interpretation Comments MCH (test code = MCH) 29.1 pg 27.0-31.0 N [facility]villeEzlwkdTXOIUQZFII4302-23-55 07:52:0033.8[facility] CBMKWXUJWK4454-30-01 07:52:0089.2MAdventhealthVcfagcTMJUDZCQGC9363-17-02 07:52:0011.0[facility]villeKmywprYSYPOCUDKE7639-21-12 07:52:008.5[facility]villeIxlbrqMILCFHJXTL5147-34-62 07:52:11206BM[facility]villeHEMATOLOGY 2013-05-10 07:52:0015.1MAdventhealthQqckwiJDGOCQHZYP8992-36-80 07:52:0032.6 [facility]villeNohfhzPIXBGWMFGR2289-43-25 07:52:003.79[facility] XSQRKPXRNH2057-76-33 07:52:[address] [place], [place] [address]NoznmuMAHUDXCTWV3275-22-16 07:52:000.1MAdventhealthCbpjfnCCAIUFXUUQ3965-95-95 07:52:000.6MAdventhealthIsiysqGATBGYJOZJ3290-28-53 07:52:000.2MAdventhealthHEMATOLOGY 2013-05-10 07:52:0083.0[facility]villeHqawjyXAMCPDAHZS1386-89-24 07:52:002.9[facility]villeYaqlfzVDKFDQRFSM1669-27-53 07:52:0018.3[facility] GARVRQHTOO5915-41-53 07:52:000.4[facility]villeWoyriuMUEPTBVVUL2245-48-34 07:52:001.0[facility]villeZpbflpXPVGDXXIRR6778-81-70 07:52:0012.9[facility]villeFckkmlNKVNXDCWYZ9514-37-21 07:52:002.7[facility]HE[facility] 2013-05-09 19:56:0055[facility]villeLyfnzoZDPWRAYTQO4245-99-07 19:56:76952CR[facility]villeEoraijEISLNNSMUP7032-13-47 19:56:72587QQ[facility] XXWFKNKFKR0894-44-30 19:56:00Negative (05/09/2013 14:56:00)[facility]villeMzldytWPTXISIHLL8614-17-41 19:56:00Negative (05/09/2013 14:56:00)[facility]villeAbvcyhTKYGJWRDBI6200-98-64 19:56:00Negative (05/09/2013 14:56:00)[facility]villeVugukkWGFJITJGPE5665-05-15 19:56:00>190.0 mg/L 15(05/09/2013 14:56:00)[facility]2013-09-22 19:56:00Negative (05/09/2013 14:56:00)[facility]villeSrqylcMLLFYNKJYM6049-45-06 19:56:0034[facility]villeXgevjiJPQPXZXQU0350-92-20 16:10:242.3[facility] MWIDSKJNZ4322-23-37 16:10:241.4[facility]villeHdarthVHOUQHJIO6496-46-94 16:10:191.8[facility]ISTRY2013-09-22 10:34:0071[facility]2013-09-22 10:34:0036[facility]2013-09-22 10:34:99622LK[facility]2013-09-22 10:34:82533VB[facility]2013-09-22 10:34:003.67[facility] 2013-05-09 10:34:004.9[facility]2013-09-22 00:11:00 Negative *NA*(05/08/2013 19:11:00)[facility]2013-09-22 00:11:00See Note 11(05/08/2013 19:11:00)[facility] 2013-05-09 00:11:00Positive *ABN*(05/08/2013 19:11:00)[facility] ENWHESCZJ2555-66-14 00:11:00Negative *NA*(05/08/2013 19:11:00)[facility]2013-09-22 00:11:00Negative *NA*(05/08/2013 19:11:00)[facility]2013-09-22 00:11:00Negative *NA*(05/08/2013 19:11:00)[facility]2013-09-22 00:11:00Negative *NA*(05/08/2013 19:11:00)[facility]villeDgukbpHPQEUICGZ5855-84-52 00:11:00Negative *NA*(05/08/2013 19:11:00)[facility]villeMyexhaJFUHEUDDJ8250-69-48 00:11:0054[facility]villeGfaapmOADGDUKYZ9677-96-29 00:11:005.8[facility] HKUZQCVWN7837-94-10 00:11:000.2MAdventhealthBksidxYXYUYZDEX6897-61-82 00:11:002.8[facility]villeCfzdezRUZXMUDDA9992-14-53 00:11:0095[facility]villeAjavppKLYBPERTK6446-19-15 00:11:0029[facility]villeTefmrnMVXJOZZKU8795-22-03 00:11:000.9[facility]villeScdhycBXMBIKPYB5053-05-27 00:11:0015[facility]villeLzopseFUBUWYFWZ8148-83-82 00:11:003.0[facility]villeGqaperJAYLSRMHCJ0190-52-52 00:11:00Slight *ABN*(05/08/2013 19:11:00)[facility]villeURINALYS 2013-05-09 00:11:001.013[facility]villeXfdohiJPYZMMXBQH1325-55-00 00:11:00 Small *ABN*(05/08/2013 19:11:00)[facility]villeHdrbjqATJNUYXEHP0334-48-57 00:11:00Negative (05/08/2013 19:11:00)[facility]URINALYSIS 2013-05-09 00:11:00Negative (05/08/2013 19:11:00)[facility] CWRDJCDYEP8094-09-00 00:11:005.0[facility]villeLoaiwjKCYDADCLSO2853-28-75 00:11:0030 mg/dL *ABN*(05/08/2013 19:11:00)[facility]URINAL[facility] 2013-05-09 00:11:00Negative mg/dL *NA*(05/08/2013 19:11:00)[facility]villeDndqaaJSKGKZBHMN9236-70-78 00:11:00Yellow *NA*(05/08/2013 19:11:00)[facility]villeMueqsxHREQYFGGVX5692-97-16 00:11:00Few /LPF *NA*(05/08/2013 19:11:00)[facility]villeXsdyfyMDAJRQCHWK7842-93-07 00:11:001[facility] KXLHQBFSYC2282-27-89 00:11:00Negative mg/dL *NA*(05/08/2013 19:11:00)[facility]villeWgykeyRCYBFUDQFP3178-57-00 00:11:00Negative *NA*(05/08/2013 19:11:00)[facility]villeOdyfqfDYGYMOKVVP3709-99-98 00:11:00Few /LPF *NA*(05/08/2013 19:11:00)[facility]2013-09-22 00:11:00Occasional /HPF *NA*(05/08/2013 19:11:00)[facility]villeBEDSIDE GLUCOSE TESTING 2012-07-21 12:28:0087[facility]villeOzdaalSOKYXKAUW0807-02-64 08:53:43583UV[facility]villeKimefrXQCNYJIMI7078-09-61 08:53:0024[facility] IHOLYDRRS4281-59-73 08:53:75940SKVal[facility]villeGaoaqgSWNQUISDH4560-57-90 08:53:23986XO[facility]villeNrnsxtREMICATKO9671-10-65 08:53:008.08[facility]villeJpivkgSQMWZHDPY7204-75-22 08:53:[address] [place], [place] [address]CHEMISTRY 2012-07-21 08:53:001.9[facility]villeVtebjyKXAIAZDOC5464-36-02 08:53:[address] [place], [place] [address]JtgfauAWHFAPEGS0549-86-08 08:53:009[facility] DQYFGVEMT3902-15-73 08:53:0077[facility]villeApftywOWLPVLWOF7771-89-01 08:53:34133CNVal[facility]villeYaeswhOZNSQALFD2072-90-35 08:53:73658RV[facility]villeLcmofaUCFXALVMU2837-07-18 08:53:75012MQVal[facility] – BrownsvilleCHEMISTRY 2012-07-21 08:53:004.[address] [place], [place] [address]UjcnzuLRYCZTEGB3373-62-87 08:53:000.7[facility]villeDzeyxxPRIVBVNNT9722-73-90 08:53:0027[facility] JLSWWWZYS8328-92-41 08:53:008.0[facility]villeEosmzrUQTFCATEL3683-60-90 08:53:005.8[facility]villeDsoejaXDHDAEYFCU5561-74-73 08:53:006.8[facility]villeQccflbWTNRNUAJKQ3242-24-84 08:53:63494EBVal[facility]villeHEMATOLOGY 2012-07-21 08:53:0088.7[facility]villeCqzavsWJENBMJOKK2448-24-57 08:53:00 Test Item Value Reference Range Interpretation Comments MCH (test code = MCH) 29.4 pg 27.0-31.0 N [facility]villeQwiyluVLXXONWBVM0332-02-05 08:53:[address] [place] [address] ZKAZNDIYVY9812-93-66 08:53:0015.0[facility]villeGygtgmZRCJCKQGDM8522-65-98 08:53:0038.4[facility]villeWhcvymWIRSJVUOVF1384-84-86 08:53:004.34[facility]villeZllsxgNLZYFSUIYL3134-06-90 08:53:0012.7[facility]villeHEMATOLOGY 2012-07-21 08:53:0011.7[facility]villeSohzkgLPTCAPAWNA7933-73-16 08:53:000.5[facility]villeVtvpfiXZMSAILLWG9854-68-07 08:53:005.9[facility] RISGQAHXUK5428-44-60 08:53:006.0[facility]villeZxegjfKBZLZFLWEU3174-96-36 08:53:0041.5[facility]villeWodaukVEFLTGERFQ9561-32-63 08:53:001.9[facility]villeKvrumqFFWYNAZYUD6080-32-05 08:53:[address] [place], [place] [address]HEMATOLOGY 2012-07-21 08:53:000.7[facility]villeOkwpppZFOPWYRPOJ5590-29-20 08:53:004.8[facility]villePgizqgRKSEYJMHVB8259-42-19 08:53:000.2[facility] VTEMUPAZKX3863-26-99 08:53:[address] [place], [place] [address]BEDSIDE GLUCOSE TESTING 2012-07-21 02:50:16834AWVal[facility]villeOikuvjFCCOZQVRSB0951-67-83 01:10:00Yellow *NA*(07/20/2012 19:10:00)[facility]villeLnfeuvZORKONGTRV2132-29-38 01:10:0020 mg/dL *ABN*(07/20/2012 19:10:00)[facility]villeMszoffUFIXFJKVJJ0929-92-57 01:10:006.5[facility]villeSzbrttUNKNMNFZCK9837-68-90 01:10:00Negative mg/dL *NA*(07/20/2012 19:10:00)[facility]villeLhwjumNFFFNODDJQ2884-69-41 01:10:00 [facility].020[facility]AL[facility] 01:10:00Slight *ABN*(07/20/2012 19:10:00)[facility]villeFxxjyjUGMEIJMCCT7041-85-61 01:10:00Negative (07/20/2012 19:10:00)[facility]2012-12-04 01:10:00Trace *ABN*(07/20/2012 19:10:00)[facility]2012-12-04 01:10:00 Many /LPF *ABN*(07/20/2012 19:10:00)[facility]villeKeqthmBDEVMWXRXO2560-78-09 01:10:00Small *ABN*(07/20/2012 19:10:00)[facility]villeURINBANNER 2012-07-21 01:10:00Negative *NA*(07/20/2012 19:10:00)[facility] UFCAZMBZGF1677-25-06 01:10:00Occasional /HPF *NA*(07/20/2012 19:10:00)[facility]villeQtpdohWIPWCTIQIG8169-29-70 01:10:00Few /LPF *NA*(07/20/2012 19:10:00)[facility]villeAyorjtRRYSXURFHS5525-17-76 01:10:00Few /HPF *NA*(07/20/2012 19:10:00)[facility]villeNkxoqgKZESYPXUYX2933-68-56 01:10:001[facility]villeGxtwoxQJSAUWTDXN8998-54-80 01:10:006[facility]villeEvkvpaBXHGCXDEHF7998-36-72 01:10:001[facility]villeBEDSIDE GLUCOSE BJHVCVC6497-41-03 12:05:0086[facility]villePlsqwvWYBMVFQYG8664-07-66 08:50:0014.7[facility] IDLLAWAON9178-27-45 08:50:0088[facility]villeTurapzADBTJLOSS2875-47-00 08:50:0077[facility]villeEnxznmPFUGFEDLJ9984-45-41 08:50:0013[facility]villeQmeydtDWDNSIWCP7934-17-93 08:50:000.8[facility]villeFpetucEBVJQNZQC6889-82-30 08:50:72102QVVal[facility] – BrownsvilleIwuaktTXDAPSHSU4715-87-19 08:50:003.7[facility] AknepqHRTRXVRZM9920-55-02 08:50:0097[facility]villeCHEMISTRY 2012-07-20 08:50:0029[facility]villeWtvqaaTRQGIOTRE4003-44-08 08:50:[address] [place], [place] [address]DbzsvkLBTWEZDQEL1509-91-87 08:50:000.7[facility] GPLSXZRKYZ7055-80-98 08:50:[address] [place], [place] [address]XngxynZVXXKOLPTM3154-22-39 08:50:006.9[facility]villeYdjxucMZFMEWUGJQ5526-19-05 08:50:000.8[facility]villeDpicpvSEZGKLRXHC5743-17-64 08:50:[address] [place], [place] [address]HEMATOLOGY 2012-07-20 08:50:[address] [place], [place] [address]JxkcnjQPDFITEVWT1011-50-79 08:50:[address] [place], [place] [address]MjaunuGWUWDNUAMF0010-63-31 08:50:005.[address] [place] [address] EHQXFVSLCN2702-32-93 08:50:0035.7[facility]villeIwrqmhHTIODDPVQP7366-63-81 08:50:0056.7[facility] CgbfscVXDGXGOBRG1017-40-01 08:50:[address] [place], [place] [address]CrwgqkGPDDSZBVCS3736-20-25 08:50:[address]41.[address] [place], [place] [address]HEMATOLOGY 2012-07-20 08:50:0013.7[facility]villeRhbygiAZWYKLFAEO7832-69-37 08:50:004.66 [facility]villeNroizgTVWERAATIS2247-04-94 08:50:[address] [place] [address] GQGMLIMHEF0839-71-00 08:50:006.8[facility]villePfbplyYWXCFTYPNB5943-93-18 08:50:87532ACVal[facility]villeWtdzeyJZSPKUKQEB4850-28-68 08:50:0015.6MAdventhealthSfqwalXPJBEKKJLG1439-80-38 08:50:[address] [place], [place] [address]HEMATOLOGY 2012-07-20 08:50:00 Test Item Value Reference Range Interpretation Comments MCH (test code = MCH) 29.4 pg 27.0-31.0 N [facility]villeBLOOD BANK MOKAWLK3296-00-05 13:30:00Negative (07/19/2012 07:30:00)[facility]villeQpzjzzYSYSIFXGQ3561-98-41 13:30:0062[facility]villeBhkqibSANSBIGVB3390-60-08 13:30:0067[facility]villeMdspuyPSPWVLAFJ8446-51-37 13:30:0030[facility]villeVphitaQCJFJMMDZ6521-82-00 13:30:008.8[facility]villeEpmnwsHYEQUPURW6842-23-20 13:30:0012[facility]villeSyvdewALBRRPBGA6008-33-21 13:30:001.0[facility]villeOkuoxwNGFEZJQLZ8299-41-50 13:30:44785SE[facility] BrownsvilleDixfanYLVCKXANI9533-17-74 13:30:[address] [place], [place] [address]CHEMISTRY 2012-07-19 13:30:0099[facility]villeHssvnqSZBTTKXUM9420-35-54 13:30:83598YEVal[facility] BrownsvilleEbtrjmPQJFPBHGS7591-39-77 13:30:[address] [place] [address] NZPHOOQPK9665-81-29 13:30:00<0.02[facility]villeTgjdmvBVZCPMHOQM2723-79-69 13:30:001+ *ABN*(07/19/2012 07:30:00)[facility]villeAeieidAEVNEYMYGO8772-04-39 13:30:000.0[facility]villeXqxsssQSVPZGPYFD6345-58-39 13:30:00Slight *ABN*(07/19/2012 07:30:00)[facility]villeHrltrxJILKSGKCKA2458-00-83 13:30:00 Slight (07/19/2012 07:30:00)[facility]villeRmjgqhPMTVKUVITD3526-68-93 13:30:00 0.0[facility]villeIzplqrQJZCWHBYGC9474-67-40 13:30:004.0[facility]AT[facility]2012-12-02 13:30:0030.0[facility] CenterAT[facility] 2012-07-19 13:30:001.0[facility] CenterAT[facility]Y2012-12-02 13:30:005.4[facility] CenterATOLOGY2012-12-02 13:30:0011.8[facility] DMNSIQLZDG1895-56-40 13:30:000.2MN[facility] HospitalFsrgobNHCFRRBRST2057-97-98 13:30:000.7[facility] CenterATOLOGY2012-12-02 13:30:0065.0[facility] CenterAT[facility]Y2012-12-02 13:30:000.97[facility] 2012-07-19 13:30:00 Test Item Value Reference Range Interpretation Comments PT (test code = PT) 13.1 s 12.0-14.7 N [facility]2012-12-02 13:30:004.[address] [place] [address] AOHWNWCGAJ6046-67-44 13:30:00 Test Item Value Reference Range Interpretation Comments ACT (TEG) (test code = ACT (TEG)) 113 s 86-118 N [facility]2012-12-02 13:30:00 Test Item Value Reference Range Interpretation Comments Split Point (test code = Split Point) 0.6 min [facility]2012-12-02 13:30:00 Test Item Value Reference Range Interpretation Comments Angle (test code = Angle) 82 degrees 64-80 H [facility]2012-12-02 13:30:00 Test Item Value Reference Range Interpretation Comments Max Amp (test code = Max Amp) 81 mm 52-71 H [facility]2012-12-02 13:30:00 Test Item Value Reference Range Interpretation Comments K-time (test code = K-time) 0.8 min 0.6-2.3 N [facility]2012-12-02 13:30:0020.9[facility] MTOOKKWZEX0464-26-67 13:30:00 Test Item Value Reference Range Interpretation Comments R-time (test code = R-time) 0.7 min 0.4-0.7 N [facility]2012-12-02 13:30:00 Test Item Value Reference Range Interpretation Comments PTT (test code = PTT) 32.1 s 22.9-35.8 N [facility]villeQpjhvfIKWGHANTVG0349-06-42 13:30:0015.0[facility] JEAQPGEQDU2346-14-66 13:30:005.06[facility] BrownsvilleQmicigGHIXGZTEZA5462-45-73 13:30:0014.8[facility]villeTqxbqhKLTEFBNVKC4196-63-88 13:30:[address] [place], [place] [address]RroynxIBCNVNJZVB3242-42-43 13:30:[address] [place], [place] [address]HEMATOLOGY 2012-07-19 13:30:0044.9[facility]villeOjhjyrJZICGNNSRW6053-66-10 13:30:[address] [place], [place] [address]BsqvrcMTEAQJXAUR1374-79-41 13:30:00 Test Item Value Reference Range Interpretation Comments MCH (test code = MCH) 29.5 pg 27.0-31.0 N [facility]villeWtiljkKUEHSMMMGG0517-89-38 13:30:0088.8[facility] MONDIQNJIU9886-52-94 13:30:75154JDVal[facility] – [facility]ville
--- OUTSIDE RECORDS SUMMARY | 2020-01-20 13:58 | XMS REPORT | Summary of Care ---
:[address] [facility] Address [address] [place] [address] Care Team Providers Name Role Phone Sonja Burton Primary Care Provider Reason for Referral (Routine) Status Reason Specialty Diagnoses / Referred By Referred To Procedures Contact Contact New Request Diagnoses Chest pain, unspecified type Isael Harley MD Patel, Mitesh M Procedures Discharge Follow-up: PCP SONJA BURTON; 2 Weeks [address] [address] [address] Phone: [place], [place] [phone] Fax: Other (Routine) Status Reason Specialty Diagnoses / Referred By Referred To Procedures Contact Contact New Request Diagnoses Chest pain, unspecified type Isael Harley MD Prasad, Sendil Procedures Discharge Follow-up: Specialty Provider CHELSEA BARRIENTOS K.H.; 3-5 Days 301 [facility] MD [place], [place] [address] [place] [address] [address] Phone: [place], [place] [phone] [address] Fax: (SILVIO) Status Reason Specialty Diagnoses / Referred By Referred To Procedures Contact Contact New Request Procedures Isael Harley MD UNILATERAL VENOUS [address] DUP[address] UPPER BY [place], [place] VASCULAR LAB [id number] MRI/CAT Scan (STAT) Status Reason Specialty Diagnoses / Referred By Referred To Procedures Contact Contact New Request Diagnostic Diagnoses Chest pain, unspecified type Tia Doherty Radiology Procedures CT CHEST PULMONARY ANGIOGRAM J, DO [address] [place] [address] Reason for Visit Reason Comments Shortness of Breath Shoulder Pain left Auth/Cert Status Reason Specialty Diagnoses / Referred By Referred To Procedures Contact Contact Emergency Medicine Ad[facility] Em ergency Dept [address] [facility] [place] [address] Fax: Encounter Details Date Type Department Care Team Description 10/24/2019 - Emergency ADC Intensive Care U nit Tia Doherty J, DO [address] [place], [place] [id number] Chest pain 10/25/[address] [place] [address] Aidee Fairbanks MD [address] [place] [address]. [address] [place], [place] [id number] [place] [address] Allergies Active Allergy Reactions Severity Noted Date Comments Prochlorperazine Edisylate Nausea and/or 08/21/2005 Vomiting Divalproex Sodium Anxiety 08/21/2005 Gabapentin Unknown - See 01/02/2008 Blurred vision comments Nsaids (Non-Steroidal Nausea and/or 06/15/2015 Anti-Inflammatory Drug) Vomiting Butorphanol Tartrate Rash 08/21/2005 Ketorolac Tromethamine Rash 08/21/2005 documented as of this encounter (statuses as of 10/25/2019) Medications Medication Sig Dispensed Refills Start Date End Date Status atorvastatin 80 mg Take 1 tablet by 30 tablet 3 09/03/2019 Active tabletIndications: mouth at bedtime. S/P CABG (coronary artery bypass graft), Coronary artery disease involving [place] coronary artery of [place] heart with angina pectoris LORazepam 2 mg Take 1 tablet by 0 10/14/2019 Active tablet mouth 2 (two) times daily. SERTraline 100 mg Take 1 tablet by 0 10/14/2019 Active tablet mouth daily. buPROPion SR 100 Take 1 tablet by 60 tablet 0 10/18/2019 Active mg SR mouth 2 (two) tabletIndications: times daily. NSTEMI (non-ST elevated myocardial infarction), Bacteremia due to Enterobacter species metoprolol Take 1 tablet by 60 tablet 0 10/18/2019 A ctive tartrate 50 mg mouth 2 (two) tabletIndications: times daily. NSTEMI (non-ST elevated myocardial infarction), Bacteremia due to Enterobacter species apixaban 5 mg Take 1 tablet by 60 tablet 1 10/18/2019 Active tabletIndications: mouth 2 (two) deep vein times daily. thrombosis Indications: deep prevention vein thrombosis prevention nitroglycerin 0.[address] Place 1 tablet 1 Bottle 0 10/18/2019 Active mg sublingual under the tongue 20 tabletIndications: every 5 (five) NSTEMI (non-ST minutes as needed elevated for Chest pain myocardial for up to 30 infarction) days. ciprofloxacin HCl Take 1 tablet by 20 tablet 0 10/18/201910/16 Active 500 mg mouth every 12 20 tabletIndications: (twelve) hours NSTEMI (non-ST for 10 days. elevated myocardial infarction), Bacteremia due to Enterobacter species zolpidem (AMBIEN) Take 10 mg by 0 Active 10 mg tablet mouth at bedtime as needed for Insomnia. promethazine HCl Take 25 mg by 0 Active (PHENERGAN ORAL) mouth as needed for Nausea and Vomiting (N/V). colchicine 0.6 mg Take 1 capsule by 60 capsule 2 10/25/2019 Active CapIndications: mouth 2 (two) 20 Pericardial times daily for effusion 30 days. aspirin 81 mg Take 81 mg by 0 10/25/19 Di scontinued chewable tablet mouth daily. 20 apixaban 5 mg (74 Take 1 tablet by 74 tablet 0 10/18/201905/07 Discontinued tabs) 5 mg VTE mouth 20 starter SEE-INSTRUCTIONS. packIndications: Follow dosing deep vein instructions thrombosis included in prevention package. Indications: deep vein thrombosis prevention documented as of this encounter (statuses as of 10/25/2019) Active Problems Problem Noted Date Pericardial effusion 10/25/2019 Arm DVT (deep venous thromboembolism), acute, left 04/2020 Chest pain 10/24/2019 NSTEMI (non-ST elevated myocardial infarction) 020 Left sided numbness 09/03/2019 S/P CABG (coronary artery bypass graft) 06/30/2019 Leukocytosis 06/16/2019 Tachycardia 06/15/2019 Coronary artery disease involving [place] coronary [facility] of [place] heart 06/08/2019 with angina pectoris Overview: Added automatically from request for ilan de la cruz [id number] Sepsis 05/03/2019 Obesity (BMI 30-39.9) 05/03/2019 Other [...] as of this encounter (statuses as of 10/25/2019) Immunizations Name Administration Dates Next Due Influenza [...] of this encounter Last Filed Vital Signs Vital Sign Reading Time Taken Comments Blood Pressure 107/72 10/25/2019 9:21 PM CDT Pulse 87 10/25/2019 8:00 PM CDT Temperature 37 C (98.6 F) 10/25/2019 9:21 PM CDT Respiratory Rate 20 10/25/2019 9:21 PM CDT Oxygen Saturation 100% 10/25/2019 8:00 PM CDT Inhaled Oxygen Concentration - - Weight 79 kg (174 lb 3.2 oz) 10/25/2019 12:45 AM CDT Height 160 cm (5' 3") 10/25/2019 12:45 AM CDT Body Mass Index 30.86 10/25/2019 12:45 AM CDT documented in this encounter Discharge Summaries Isael Harley MD - 10/25/2019 7:16 PM CDT Hospital Medicine Discharge Summary PATIENT NAME: Delilah Whyte : 1965 AGE: [age] year old PRIMARY CARE PHYSICIAN: Sonja Burton ADMITTING PHYSICIAN: Aidee Diego MD DISCHARGE PHYSICIAN: Isael Harley MD ADMISSION DATE: 10/24/2019 DISCHARGE DATE: 10/25/2019 DISCHARGE DIAGNOSES: Principal Problem: Chest pain Active Problems: Chronic diastolic HF (heart failure) Essential hypertension History of arterial ischemic stroke Hypokalemia Abnormal liver function Obesity (BMI 30-39.9) Coronary artery disease involving [place] coronary artery of [place] heart with angina pectoris Pericardial effusion Arm DVT (deep venous thromboembolism), acute, left HPI Chief Complaint:chest pain Onset/Duration:Friday - today is jenna Timing:still present, painlasting Context:no injury or trauma Severity of Pain:mild Quality:dull Location:left chest Associated Symptoms:radiates to left shoulder and worse with breathing. Pt presents for eval for pleuritic chest pain since Friday - today is Friday. No cough or URI sx. Nofevers. No real change in pain with walking. No meds for sx Had CABG in June of 2019 and had infection as a complication. Also with DVT to left arm. Is on eliquis for this. Has htn and lipids but no dm. Does not smoke anymore. Is on asa 81mg daily and took it today. Here for eval. HOSPITAL COURSE: Pt was admitted for atypical chest pain. Trop and EKG were unremarkable. CTA chest showed no PE, small likely hemorrhagic pericardial effusion. Echo confirmed a small amount of pericardial effusion. Patient recently had LUE DVT on eliquis. Repeat venous doppler during this stay showed the DVT was still present. Patient was seen by Dr. Longo/cardiology, who recommended to decrease Eliquis dose to 5mg bid, hold aspirin, and start colchicine for possible pericarditis. Side effects of colchicine were explained to the patient, who verbalized understanding, and agreed with the plan. [facility] She was instructed to follow with Dr. Barrientos/cardiology in 3-5 days. CBC in 1 week, and follow with Dr. Barrientos for results. REVIEW OF SYSTEMS: General: (-) fever, (-) chills, (-) weight loss, (-) weight gain, (-) fatigue, (-) malaise Skin: (-) rash, (-) lesion HEENT: (-) headache, (-) change in hearing, (-) change in vision, (-) nasal discharge, (-) sore throat Neck: (-) pain, (-) difficulty swallowing, (-) mass Heme: (-) bleeding disorder Resp: (-) cough, (-) shortness of breath, (-) dyspnea on exertion Cardio: (+) chest pain, (-) palpitations, (-) syncope GI: (-) abdominal pain, (-) nausea, (-) vomiting, (-) diarrhea, (-) constipation, (-) melena, (-) hematochezia, (-) hematemesis : (-) dysuria, (-) hematuria, (-) increased frequency, (-) difficulty urinating, (-) difficulty initiating Endo: (-) heat intolerance, (-) cold intolerance, (-) polyuria, (-) polydipsia Neuro: (-) numbness, (-) tingling, (-) weakness Back: (-) pain, (-)spasms LEN: (-) muscle pain, (-) joint pain, (-) claudication Psych: (-) anxiety, (-) depression, (-) psychiatric disorder DISCHARGE PHYSICAL EXAM: Most recent vital signs: Temp: 36.9 C (98.4 F) - BP: 131/89 - Pulse: 77 - Resp: 19 - SpO2: 98 % General: alert and oriented x 4 (person, place, date/time and situation); no apparent distress HEENT: pupils equal, round, reactive to light; extraocular movements intact; oropharynx clear; moistmucous membranes Neck: supple, no lymphadenopathy, no bruits, no JVD Lungs: clear to auscultation bilaterally Cardio: S1, S2 normal; no murmurs, rubs or gallops Abdomen: soft; non-tender; non-distended; normoactive bowel sounds Extremities: no clubbing, cyanosis, or edema Skin: echymoses in arms Neuro: cranial nerves II through XII grossly intact; sensation grossly intact; muscle strength 5 outof 5 in all four extremities, no focal deficits, alert and oriented x 3 CONSULTS: Cardiology PROCEDURES: None LABS PENDING: CBC in 1 week. Follow with Cardiology for results. DIET: cardiac ACTIVITY: as tolerated MEDS: Current Discharge Medication List START taking these medications Details colchicine (MITIGARE) 1 capsule Take 1 capsule by mouth 2 (two) times daily. Qty: 60 capsule, Refills: 2 Start date: 10/25/2019, End date: 11/24/2019 Associated Diagnoses: Pericardial effusion CONTINUE these medications which have NOT CHANGED Details promethazine HCl (PHENERGAN ORAL) 25 mg Take 25 mg by mouth as needed for Nausea and Vomiting (N/V). zolpidem (AMBIEN) 10 mg Take 10 mg by mouth at bedtime as needed for Insomnia. apixaban (ELIQUIS) 5 mg Take 5 mg by mouth 2 (two) times daily. Qty: 60 tablet, Refills: 1 Associated Diagnoses: NSTEMI (non-ST elevated myocardial infarction); Bacteremia due to Enterobacter species buPROPion SR (WELLBUTRIN SR) 100 mg Take 100 mg by mouth 2 (two) times daily. Qty: 60 tablet, Refills: 0 Associated Diagnoses: NSTEMI (non-ST elevated myocardial infarction); Bacteremia due to Enterobacter species ciprofloxacin HCl (CIPRO) 500 mg Take 500 mg by mouth every 12 (twelve) hours. Qty: 20 tablet, Refills: 0 Associated Diagnoses: NSTEMI (non-ST elevated myocardial infarction); Bacteremia due to Enterobacter species metoprolol tartrate (LOPRESSOR) 50 mg Take 50 mg by mouth 2 (two) times daily. Qty: 60 tablet, Refills: 0 Associated Diagnoses: NSTEMI (non-ST elevated myocardial infarction); Bacteremia due to Enterobacter species nitroglycerin (NITROSTAT) 0.[address] 0.4 mg under the tongue every 5 (five) minutes as needed forChest pain. Qty: 1 Bottle, Refills: 0 Associated Diagnoses: NSTEMI (non-ST elevated myocardial infarction) LORazepam (ATIVAN) 2 mg Take 2 mg by mouth 2 (two) times daily. Refills: 0 SERTraline (ZOLOFT) 100 mg Take 100 mg by mouth daily. Refills: 0 atorvastatin (LIPITOR) 80 mg Take 80 mg by mouth at bedtime. Qty: 30 tablet, Refills: 3 Associated Diagnoses: S/P CABG (coronary artery bypass graft); Coronary artery disease involving [place] coronary artery of [place] heart with angina pectoris STOP taking these medications apixaban (ELIQUIS DVT-PE TREAT 30D START) 5 mg Comments: Reason for Stopping: aspirin 81 mg Comments: Reason for Stopping: SIGNIFICANT LAB/X-RAYS: Lab results: CBC BMP PT/INR WBC x10^3 (/CMM) Date Value 01/02/2008 10.5 (H) WBC (10*3/L) Date Value 10/25/2019 13.14 (H) NA Date Value 10/25/2019 134 mmol/L (L) 01/05/2008 138 MMOL/L No results found for: PT RBC x10^6 (/CMM) Date Value 01/02/2008 4.41 RBC (10*6/L) Date Value 10/25/2019 4.09 K Date Value 10/25/2019 3.3 mmol/L (L) 01/05/2008 3.6 MMOL/L INR (no units) Date Value 10/11/2019 1.2 PLT x10^3 (/CMM) Date Value 01/02/2008 413 (H) PLT (10*3/L) Date Value 10/25/2019 665 (H) CALCIUM Date Value 10/25/2019 9.6 mg/dL 01/05/2008 9.3 MG/DL HGB Date Value 10/25/2019 10.1 g/dL (L) 01/02/2008 14.2 G/DL CL Date Value 10/25/2019 97 mmol/L (L) 01/05/2008 103 MMOL/L aPTT HCT (%) Date Value 10/25/2019 32.5 (L) 01/02/2008 42.0 BUN Date Value 10/25/2019 13 mg/dL 01/05/2008 9 MG/DL APTT Patient (Seconds) Date Value 10/18/2019 55 (H) CREATININE Date Value 10/25/2019 0.70 mg/dL 01/05/2008 0.58 MG/DL (L) GLUCOSE Date Value 10/25/2019 123 mg/dL (H) 01/05/2008 90 MG/DL CO2 TOTAL Date Value 10/25/2019 25 mmol/L 01/05/2008 25 MMOL/L Imaging results: Xr Chest 1 Vw Result Date: 10/14/2019 No acute cardiopulmonary process. Xr Chest 1 Vw Result Date: 10/09/2019 No acute cardiopulmonary process. Preliminary Report Dictated by Resident: Natividad Chi MD., have reviewed this study and agree with the above report. Ct Head Wo Contrast Result Date: 10/10/2019 No acute intracranial abnormality. Chronic right MCA infarct. Chronic microvascular ischemic disease. Preliminary Report Dictated by Resident: Thong Yoder MD., have reviewed this study and agree with the above report. Us Abdomen Limited Result Date: 10/10/2019 Hepatomegaly with diffuse fatty infiltration. Preliminary Report Dictated by Resident: Celso Agarwal I, Teodora Anderson MD., have reviewed this study and agree with the above report. Ct Chest Pulmonary Angiogram Result Date: 10/24/2019 Impression: 1. No evidence of pulmonary embolus. 2. No pulmonary mass or consolidation. No pleural effusion. 3. Small, likely hemorrhagic pericardial effusion. 4. Changes of prior median sternotomy and CABG RL: [id number] AFC: [id number] End of Report Nm Myocardium Perfusion Stress Only Result Date: 10/15/2019 No significant perfusion defect. Unremarkable left ventricular wall motion Preliminary Report Dictated by Resident: Yfn Lam I, Channing Cunningham MD., have reviewed this study and agree with the above report. DISPOSITION: home CONDITION: Good FOLLOW-UP: Cardiology PCP I spent 60 minutes including a [id number] visit, discussing the plan of care with the patient, patient education regarding medication compliance, exam, and coordination of discharge Electronically Signed by: Isael Harley MD 10/25/2019 7:16 PM documented in this encounter Discharge Instructions AttachmentsThe following attachments cannot be sent through Care Everywhere. Chest Pain, Noncardiac (American)Apixaban oral tablets (American)Colchicine tablets or capsules (American)documented in this encounter Progress Notes Carlin Wallace PTA - 10/25/2019 2:48 PM CD10/25/2019 2:48 PM Physical Therapy Note: Assisted supervising Physical Therapist with initial Evaluation. Supervising Therapist was present for entire Evaluation. Carlin Wallace PTA [facility] Lic [id number] [facility] Rehab Services [facility] [phone] Ashley Alvarado PT supjorge a documented in this encounter Plan of Treatment Date Type Specialty Care Team Description 11/04/2019 Office Visit Cardiology Chelsea Barrientos MD [address] [place] [phone] Name Type Priority Associated Diagnoses Date/Ti me BLOOD CULTURE SCREEN LAB SILVIO 020 3:07 AM CDT BLOOD CULTURE SCREEN LAB SILVIO 020 2:27 AM CDT URINE CULTURE LAB Routine 10/25/2019 7: 05 PM CDT Name Type Priority Associated Diagnoses Order S chedule BASIC METABOLIC PANEL LAB Routine EVERY MORNING AT 0500 for (NA, K, CL, CO2, 3 Days star ting 10/25/2019 GLUCOSE, BUN, until 10/27/19 20, 1 CREATININE, CA) completed TROPONIN I LAB Routine EVERY MORNING A T 0500 for 2 Days starting 10/25/2019 until 0, 1 completed CBC WITH DIFF LAB Routine EVERY MORNING AT 0500 for 3 Days starting 10/25/2019 until 0, 1 completed URINE CULTURE LAB Routine ONCE for 1 Occ urrences starting 2019 until 10/25/2019 TROPONIN I LAB SILVIO SILVIO for 1 Occu rrences starting 2019 until 10/26/2019 Health Maintenance Due Date Last Done Comments [...] of this encounter Implants Implanted Type Area Hand Tacker Device Shelf Expiration Model / Identifier Date Serial / Lot Screw SCREW Right: Ankle Screw SCREW Left: Foot documented as of this encounter Procedures Procedure Name Priority Date/Time Associated Comments Diagnosis URINALYSIS Routine 10/25/2019 7:05 Results for this PM CDT procedure are i n the results section. UNILATERAL VENOUS SILVIO 10/25/2019 4:14 DUPLEX UPPER BY PM CDT VASCULAR LAB ECHO ROUTINE W/DOPPLER Routine 10/25/2019 2:13 Chest pain, COLOR PM CDT unspecified type CBC WITH DIFFERENTIAL Routine 10/25/2019 4:52 Re sults for this AM CDT procedure are i n the results section. N-TERMINAL PRO-BNP Routine 10/25/2019 4:52 Resul ts for this AM CDT procedure are i n the results section. CBC WITH DIFFERENTIAL Routine 10/25/2019 4:52 Re sults for this AM CDT procedure are i n the results section. BASIC METABOLIC PANEL Routine 10/25/2019 4:52 Re sults for this (NA, K, CL, CO2, AM CDT procedure a re in GLUCOSE, BUN, the results CREATININE, CA) section. TROPONIN I Routine 10/25/2019 4:52 Results for this AM CDT procedure are i n the results section. MAGNESIUM Routine 10/25/2019 4:52 Results for this AM CDT procedure are i n the results section. PHOSPHORUS Routine 10/25/2019 4:52 Results for this AM CDT procedure are i n the results section. PROCALCITONIN SILVIO 10/25/2019 2:23 Results fo r this AM CDT procedure are i n the results section. TROPONIN I SILVIO 10/25/2019 2:23 Results for this AM CDT procedure are i n the results section. CT CHEST PULMONARY STAT 10/24/2019 8:59 Chest pain, Resul ts for this ANGIOGRAM PM CDT unspecified type procedure a re in the results section. CBC WITH DIFFERENTIAL STAT 10/24/2019 5:18 Chest pain, Re sults for this PM CDT unspecified type procedure a re in the results section. N-TERMINAL PRO-BNP STAT 10/24/2019 5:18 Chest pain, Resul ts for this PM CDT unspecified type procedure a re in the results section. CBC WITH DIFFERENTIAL Routine 10/24/2019 5:18 Chest pain, Re sults for this PM CDT unspecified type procedure a re in the results section. BASIC METABOLIC PANEL STAT 10/24/2019 5:18 Chest pain, Re sults for this (NA, K, CL, CO2, PM CDT unspecified type procedu re are in GLUCOSE, BUN, the results CREATININE, CA) section. HEPATIC FUNCTION PANEL STAT 10/24/2019 5:18 Chest pain, R esults for this (10470) PM CDT unspecified type procedure a re in (ALB,T.PRO,BILI the results T,BU/BC,ALT,AST,ALK section. PHOS) TROPONIN I STAT 10/24/2019 5:18 Chest pain, Results for this PM CDT unspecified type procedure a re in the results section. EKG-12 LEAD STAT 10/24/2019 4:15 PM CDT EKG-12 LEAD Routine 10/24/2019 4:08 PM CDT documented in this encounter Results URINALYSIS (10/25/2019 7:05 PM CDT) Pathologist Sig nature APPEARANCE Clear Clear [facility] COLOR Yellow Yellow [facility] PH 6.0 4.8 - 8.0 [facility] SP GRAVITY 1.027 1.003 - 1.030 [facility] GLU U QUAL Normal Normal [facility] BLOOD 1+ (A) Negative [facility] KETONES Negative Negative [facility] PROTEIN Negative Negative [facility] UROBILIN Normal Normal [facility] BILIRUBIN Negative Negative [facility] NITRITE Negative Negative [facility] LEUK HAI Negative Negative [facility] RBC/HPF 4 (H) 0 - [address] [facility] WBC/HPF <1 0 - 5 HPF [facility] [place] [place] BACTERIA Negative Negative [facility] Specimen Urine - URINE, CLEAN CATCH Performing Organization Address City/State/Zipcode Phone Number [facility] CLIA: [id number], [address] [place], [place] [address] CBC WITH DIFFERENTIAL (10/25/2019 4:52 AM CDT) Pathologist Sig [facility] WBC 13.14 (H) 4.30 - 11.10 [facility] 10*3/L [facility] RBC 4.09 3.93 - 5.25 [facility] 10*6/L [facility] HGB 10.1 (L) 11.6 - 15.0 [facility] g/dL [facility] HCT 32.5 (L) 35.7 - 45.2 % [facility] MCV 79.5 (L) 80.6 - 95.[address] [facility] MCH 24.7 (L) 25.9 - 32.[address] [facility] MCHC 31.1 (L) 31.6 - 35.1 [facility] g/dL [facility] RDW-SD 65.2 (H) 39.0 - 49.[address] [facility] RDW-CV 22.6 (H) 12.0 - 15.5 % [facility] PLT 665 (H) 166 - 358 [facility] 10*3/L [facility] MPV 9.3 (L) 9.5 - 12.[address] [facility] NRBC/100 WBC 0.0 0.0 - 10.0 /100 [facility] WBCs [facility] NRBC x10^3 <0.01 10*3/L [facility] GRAN MAT (NEUT) % 66.6 % [facility] IMM GRAN % 0.30 % [facility] LYMPH % 27.5 % [facility] MONO % 4.4 % [facility] EOS % 0.8 % [facility] BASO % 0.4 % [facility] GRAN MAT x10^3(ANC) 8.74 (H) 1.88 - 7.09 [facility] 10*3/uL [facility] IMM GRAN x10^3 0.04 0.00 - 0.06 [facility] 10*3/uL [facility] LYMPH x10^3 3.62 (H) 1.32 - 3.29 [facility] 10*3/uL [facility] MONO x10^3 0.58 0.33 - 0.92 [facility] 10*3/uL [facility] EOS x10^3 0.11 0.03 - 0.39 [facility] 10*3/uL [facility] BASO x10^3 0.05 0.01 - 0.07 [facility] 10*3/uL [facility] Specimen Blood - VENOUS Performing Organization Address City/State/Zipcode Phone Number [facility] CLIA: [id number], [address] [place], [place] [address] TROPONIN I (10/25/2019 4:52 AM CDT) Pathologist Sig nature TROPONIN I 0.005 <=0.034 ng/mL [facility] Specimen Blood - VENOUS Narrative Performed At Equal or Less than 0.034 ng/ml---Normal [facility] Note: Cardiac troponin begins to rise 3-4 hours after the onset of ischemia. Repeat in 4-6 hours if the sample was drawn within 3-4 hours of the onset of the symptom and found normal. Between 0.035 and 0.120 ng/mL--- Borderline. Questionable myocardial injury or necros is Note: Serial measurement may be necessary to confirm or exclude the diagnosis of myocardial injury or necrosis; Clinical correlation (symptoms, EKGs, imaging studies, and others) required; Repeat in 4-6 hours if clinically indicated. Equal or Higher than 0.121 ng/mL---Abnormal. Myocardial Injury or Necrosis Likely Biotin has been reported to cause a negative bias, interpret results relative to patient's use of biotin. Performing Organization Address City/State/Zipcode Phone Number [facility] CLIA: [id number], [address] [place], [place] [address] BASIC METABOLIC PANEL (NA, K, CL, CO2, GLUCOSE, BUN, CREATININE, CA) (10/25/2019 4:52 AM CDT) [facility] NA 134 (L) 135 - 145 [facility] mmol/L [facility] K 3.3 (L) 3.5 - 5.0 [facility] mmol/L [facility] CL 97 (L) 98 - 108 mmol/L [facility] CO2 TOTAL 25 23 - 31 mmol/L [facility] AGAP 12 2 - 16 [facility] [facility] BUN 13 7 - 23 mg/dL [facility] GLUCOSE 123 (H) 70 - 110 mg/dL [facility] CREATININE 0.70 0.50 - 1.04 [facility] mg/dL [facility] CALCIUM 9.6 8.6 - 10.6 [facility] mg/dL [facility] eGFR Calculation 86.9 mL/min/1.73m2 [facility] (Non-[facility]ATORY [place]) eGFR Calculation 105.3 mL/min/1.73m2 [facility] () [facility] Specimen Blood - VENOUS Narrative Performed At Association of Glomerular Filtration Rate (GFR) [facility] and Staging of Kidney Disease* + + +- + | GFR (mL/min/1.73 m2) | With Kidney Damage | Without Kidney Damage + + +- + | >90 | Stage one | Normal + + +- + | 60-89 | Stage two | Decreased GFR + + +- + | 30-59 | Stage three | Stage three + + +- + | 15-29 | Stage four | Stage four + + +- + | <15 (or dialysis) | Stage five | Stage five + + +- + *Each stage assumes the associated GFR level has been in effect for at least three months. Stages 1 to 5, with or without kidney disease, indicate chronic kidney disease. Notes: Determination of stages one and two (with eGFR >59mL/min/1.73 m2) requires estimation of kidney damage for at least three months as defined by structural or functional abnormalities of the kidney, manifested by either: Pathological abnormalities or Markers of kidney damage (including abnormalities in the composition of the blood or urine or abnormalities in imaging tests). Performing Organization Address [facility] Phone Number [facility] CLIA: [id number], [address] N-TERMINAL PRO-BNP (10/25/2019 4:52 AM CDT) Pathologist Sig nature NT-proBNP 177 (H) <=125 pg/mL [facility] Specimen Blood - VENOUS Narrative Performed At Biotin has been reported to cause a negative [facility] bias, interpret results relative to patient's use of biotin. Performing Organization Address [facility] Centercode Phone Number [facility] CLIA: [id number], [address] PHOSPHORUS (10/25/2019 4:52 AM CDT) Pathologist Sig nature PHOSPHORUS 4.4 2.5 - 5.0 mg/dL [facility] Specimen Blood - VENOUS Performing Organization Address [facility] Centercoar Phone Number [facility] CLIA: [id number], [address] MAGNESIUM (10/25/2019 4:52 AM CDT) Pathologist Sig nature MAGNESIUM 2.0 1.7 - 2.4 mg/dL [facility] Specimen Blood - VENOUS Performing Organization Address [facility] Center[facility] Phone Number [facility] CLIA: [id number], [address] TROPONIN I (10/25/2019 2:23 AM CDT) Pathologist Sig nature TROPONIN I 0.004 <=0.034 ng/mL [facility] Specimen Blood - VENOUS Narrative Performed At Equal or Less than 0.034 ng/ml---Normal [facility] Note: Cardiac troponin begins to rise 3-4 hours after the onset of ischemia. Repeat in 4-6 hours if the sample was drawn within 3-4 hours of the onset of the symptom and found normal. Between 0.035 and 0.120 ng/mL--- Borderline. Questionable myocardial injury or necros is Note: Serial measurement may be necessary to confirm or exclude the diagnosis of myocardial injury or necrosis; Clinical correlation (symptoms, EKGs, imaging studies, and others) required; Repeat in 4-6 hours if clinically indicated. Equal or Higher than 0.121 ng/mL---Abnormal. Myocardial Injury or Necrosis Likely Biotin has been reported to cause a negative bias, interpret results relative to patient's use of biotin. Performing Organization Address City/State/Zipcode Phone Number [facility] CLIA: [id number], [address] [place], [place] [address] PROCALCITONIN (10/25/2019 2:23 AM CDT) Pathologist Sig nature Procalcitonin 0.05 <0.07 ng/mL [facility] Specimen Blood - VENOUS Narrative Performed At INTERPRETATION OF PROCALCITONIN RESULTS IN ADULTS >= 1 8 [facility] YEARS OF AGE Initiation and discontinuation of antibiotics on patie nts with suspected or confirmed Lower Respiratory Tract Infection in Adults >= 18 years of age. + + + +----- ------ + |Procalcitonin |Interpretation |Antibiotic |Considerations |ng/mL | |recommend ation | + + + +----- ------ + | <0.1 | Bacterial | Strongly | | | infection very | discouraged | Overruling: | | unlikely | | Clinically unstable + + + + H igh risk for adverse | <0.25 | Bacterial | Discouraged | outcome | | infection | | SEE IMPORTANT NOTE | | unlikely | | + + + +----- ------ + | >=0.25 | Bacterial | Encouraged | | | infection | | | | likely | | Consider treatment failure + + + + if l evels does not decrease | >0.5 | Bacterial | Strongly | appropriately | | infection very | encouraged | | | likely | | + + + +----- ------ + Discontinuation of antibiotics in high-acuity patients with suspected or confirmed sepsis in Adults >= 18 years of age. + + + +----- ------ + |Procalcitonin |Interpretation |Antibiotic |Considerations |ng/mL | |recommend ation | + + + +----- ------ + | <0.25 | Bacterial | Strongly | | | infection very | discouraged | Overruling: | | unlikely | | Clinically unstable + + + + H igh risk for adverse | <0.5 or drop | Bacterial | Discouraged | outcome | >80% from | infection | | SEE IMPORTANT NOTE | highest PCT | unlikely | | | level | | | + + + +----- ------ + | >=0.5 | Bacterial | Encouraged | | | infection | | | | likely | | Consider treatment failure + + + + if l evels does not decrease | >1.0 | Bacterial | Strongly | appropriately | | infection very | encouraged | | | likely | | + + + +----- ------ + Percentage of drop of Procalcitonin calculation for Discontinuation of antibiotics in high-acuity patients with suspected or confirmed sepsis in Adults >= 18 years of age. Procalcitonin highest{}-Procalcitonin current{} Delta Procalcitonin = x100% Procalcitonin current {} IMPORTANT NOTE: Procalcitonin may be elevated without bacterial infection by physiologic stress related to t rauma, montoya, chronic dialysis, metastatic cancer, surgery in the past seven days, malaria, some fungal infections, and some forms of vasculitis. The interpretation algorithm may not apply to patients with immunosuppression (equivalent o f >10 mg of prednisone daily), HIV with CD4 cell count < 350 cells/mm3, active malignancy on systemic chemotherapy, solid organ transplant or hematopoietic stem cell transplant ation, or hospital acquired pneumonia. Additionally, some cli nical trials of procalcitonin have excluded patients with sh ock requiring vasopressor use, acute respiratory failure requiring mechanical ventilation, or those with known lung abscess/empyema. For further information please refer to: [email or web address] Performing Organization Address City/State/Zipcode Phone Number [facility] CLIA: [id number], [address] [place], [place] [address] [facility] [address] CHEST PULMONARY ANGIOGRAM (10/24/2019 8:59 PM CDT) Specimen Impressions Performed At Impression: PACS/VR/DOSE 1. No evidence of pulmonary embolus. 2. No pulmonary mass or consolidation. No pleural effusion. 3. Small, likely hemorrhagic pericardial effusion. 4. Changes of prior median sternotomy an d CABG RL: 2824 AFC: [id number] End of Report 9: 36 PM Narrative Performed At Exam: CT Angiography Chest With Contrast , 10/24/2019 4:30 PM. PACS/VR/DOSE Ordering Physician: TIA DOHERTY. History: Short of breath. Technique: CT angiography chest was performed with int ravenous contrast. 3D MIP images were rendered. CT was performed accordin g to ALARA (As Low As Reasonably Achievable). Comparison: None. Findings: There is no evidence of pulmonary embolus. Central pul monary arteries are normal in caliber. There is no pleural effusion. There is n o parenchymal consolidation or pulmonary mass. Central airways are diehl nt. Heart size is normal. Median sternotomy and CABG ordonez es are seen. There is mild, high attenuation pericardial effus ion. Thoracic aorta is normal. Great vessels are within normal limits. There is no me diastinal, hilar, or axillary adenopathy. Small mediastinal l ymph nodes are present, not enlarged by CT criteria. Gallbladder is surgically absent. There are degenerative changes of the sp ine. Procedure Note [facility], Radiant Results Inft User - 2019 9:37 PM CDT Exam: CT Angiography Chest With Contrast, 10/24/2019 4:30 PM. Ordering Physician: TIA DOHERTY. History: Short of breath. Technique: CT angiography chest was perf ormed with intravenous contrast. 3D MIP images were rendered. CT was perf ormed according to ALARA (As Low As Reasonably Achievable). Comparison: None. Findings: There is no evidence of pulmonary embolu s. Central pulmonary arteries are normal in caliber. There is no pleural effusion. There is n o parenchymal consolidation or pulmonary mass. Central airways are diehl nt. Heart size is normal. Median sternotomy and CABG changes are seen. There is mild, high attenuation pericardial effus ion. Thoracic aorta is normal. Great vessels are within normal limits. There is no mediastinal, hilar, or axillary adenopathy. Small mediastinal l ymph nodes are present, not enlarged by CT criteria. Gallbladder is surgically absent. There are degenerative changes of the sp ine. IMPRESSION Impression: 1. No evidence of pulmonary embolus. 2. No pulmonary mass or consolidation. No pleural effusion. 3. Small, likely hemorrhagic pericardial effusion. 4. Changes of prior median sternotomy an d CABG RL: 2824 AFC: [id number] End of Report Performing Organization Address City/State/Zipcode Phone Number PACS/VR/DOSE CBC WITH DIFFERENTIAL (10/24/2019 5:18 PM CDT) Pathologist Sig nature WBC 14.10 (H) 4.30 - 11.10 [facility] 10*3/L [facility] RBC 4.33 3.93 - 5.25 [facility] 10*6/L [facility] HGB 10.5 (L) 11.6 - 15.0 [facility] g/dL [facility] HCT 34.5 (L) 35.7 - 45.2 % [facility] MCV 79.7 (L) 80.6 - 95.[address] [facility] MCH 24.2 (L) 25.9 - 32.[address] [facility] MCHC 30.4 (L) 31.6 - 35.1 [facility] g/dL [facility] RDW-SD 64.9 (H) 39.0 - 49.[address] [facility] RDW-CV 22.5 (H) 12.0 - 15.5 % [facility] PLT 652 (H) 166 - 358 [facility] 10*3/L [facility] MPV 8.8 (L) 9.5 - 12.[address] [facility] NRBC/100 WBC 0.0 0.0 - 10.0 /100 [facility] WBCs [facility] NRBC x10^3 <0.01 10*3/L [facility] GRAN MAT (NEUT) % 73.0 % [facility] IMM GRAN % 0.40 % [facility] LYMPH % 21.4 % [facility] MONO % 3.8 % [facility] EOS % 1.0 % [facility] BASO % 0.4 % [facility] GRAN MAT x10^3(ANC) 10.29 (H) 1.88 - 7.09 [facility] 10*3/uL [facility] IMM GRAN x10^3 0.06 0.00 - 0.06 [facility] 10*3/uL [facility] LYMPH x10^3 3.02 1.32 - 3.29 [facility] 10*3/uL [facility] MONO x10^3 0.54 0.33 - 0.92 [facility] 10*3/uL [facility] EOS x10^3 0.14 0.03 - 0.39 [facility] 10*3/uL [facility] BASO x10^3 0.05 0.01 - 0.07 [facility] 10*3/uL [facility] Specimen Blood - VENOUS Performing Organization Address City/State/Zipcode Phone Number [facility] CLIA: [id number], [address] [place], [place] [address] N-TERMINAL PRO-BNP (10/24/2019 5:18 PM CDT) Pathologist [facility] NT-proBNP 154 (H) <=125 pg/mL [facility] Specimen Blood - VENOUS Narrative Performed At Biotin has been reported to cause a negative [facility] bias, interpret results relative to patient's use of biotin. Performing Organization Address City/[facility] Cent[facility] Phone Number [facility] CLIA: [id number], [address] Troponin I (10/24/2019 5:18 PM CDT) [facility] TROPONIN I 0.004 <=0.034 ng/mL [facility] Specimen Blood - VENOUS Narrative Performed At Equal or Less than 0.034 ng/ml---Normal [facility] Note: Cardiac troponin begins to rise 3-4 hours after the onset of ischemia. Repeat in 4-6 hours if the sample was drawn within 3-4 hours of the onset of the symptom and found normal. Between 0.035 and 0.120 ng/mL--- Borderline. Questionable myocardial injury or necros is Note: Serial measurement may be necessary to confirm or exclude the diagnosis of myocardial injury or necrosis; Clinical correlation (symptoms, EKGs, imaging studies, and others) required; Repeat in 4-6 hours if clinically indicated. Equal or Higher than 0.121 ng/mL---Abnormal. Myocardial Injury or Necrosis Likely Biotin has been reported to cause a negative bias, interpret results relative to patient's use of biotin. Performing Organization Address City/[facility] Cent[facility] Phone Number [facility] CLIA: [id number], [address] Hepatic Function Panel (ALB, T.PRO, BILI T, BU/BC, ALT, AST, ALK PHOS) (10/24/2019 5:18 PM CDT) Pathologist Sig [facility] TOTAL BILI 0.5 0.1 - 1.1 mg/dL [facility] BILI UNCON 0.3 0.1 - 1.1 mg/dL [facility] BILI CONJ 0.0 0.0 - 0.3 mg/dL [facility] T PROTEIN 8.5 (H) 6.3 - 8.2 g/dL [facility] ALBUMIN 4.6 3.5 - 5.0 g/dL [facility] ALK PHOS 194 (H) 34 - 122 U/L [facility] ALTv 30 5 - 35 U/L [facility] AST(SGOT) 33 13 - 40 U/L [facility] Specimen Blood - VENOUS Performing Organization Address City/State/Zipcode Phone Number [facility] CLIA: [id number], [address] [place], [place] [address] Basic Metabolic Panel (NA, K, CL, CO2, GLUCOSE, BUN, CREATININE, CA) (10/24/2019 5:18 PM CDT) [facility] NA 135 135 - 145 [facility] mmol/L [facility] K 3.8 3.5 - 5.0 [facility] mmol/L [facility] CL 97 (L) 98 - 108 mmol/L [facility] CO2 TOTAL 27 23 - 31 mmol/L [facility] AGAP 11 2 - 16 [facility] BUN 12 7 - 23 mg/dL [facility] GLUCOSE 107 70 - 110 mg/dL [facility] CREATININE 0.80 0.50 - 1.04 [facility] mg/dL [facility] CALCIUM 9.6 8.6 - 10.6 [facility] mg/dL [facility] eGFR Calculation 74.5 mL/min/1.73m2 [facility] (Non-) [facility] eGFR Calculation 90.3 mL/min/1.73m2 [facility] () [facility] Specimen Blood - VENOUS Narrative Performed At Association of Glomerular Filtration Rate (GFR) [facility] and Staging of Kidney Disease* + + +- + | GFR (mL/min/1.73 m2) | With Kidney Damage | Without Kidney Damage + + +- + | >90 | Stage one | Normal + + +- + | 60-89 | Stage two | Decreased GFR + + +- + | 30-59 | Stage three | Stage three + + +- + | 15-29 | Stage four | Stage four + + +- + | <15 (or dialysis) | Stage five | Stage five + + +- + *Each stage assumes the associated GFR level has been in effect for at least three months. Stages 1 to 5, with or without kidney disease, indicate chronic kidney disease. Notes: Determination of stages one and two (with eGFR >59mL/min/1.73 m2) requires estimation of kidney damage for at least three months as defined by structural or functional abnormalities of the kidney, manifested by either: Pathological abnormalities or Markers of kidney damage (including abnormalities in the composition of the blood or urine or abnormalities in imaging tests). Performing Organization Address City/State/Zipcode Phone Number [facility] CLIA: [id number], [address] [place], [place] [address] documented in this encounter Visit Diagnoses Diagnosis Chest pain, unspecified type - Primary Deep vein thrombosis (DVT) of ulnar vein of left upper extremity, unspecified chronicity Pericardial effusion Unspecified disease of pericardium Abnormal liver function Unspecified disorder of liver Chronic diastolic HF (heart failure) Chronic diastolic heart failure Coronary artery disease involving [place] coronary artery of [place] heart with angina pectoris Essential hypertension Unspecified essential hypertension History of arterial ischemic stroke Transient ischemic attack (TIA), and cer ebral infarction without residual deficits Hypokalemia Hypopotassemia Obesity (BMI 30-39.9) Obesity, unspecified Arm DVT (deep venous thromboembolism), a cute, left documented in this encounter Administered Medications Medication Order MAR Action Action Date Dose Rate Site apixaban (ELIQUIS) tablet 10 mg Given 10/25/2019 7:52 PM CDT 5 mg 10 mg, Oral, BID, First dose on Fri10/25/19 at 0045, Until Discontinued, Routine Given 10/25/2019 8:49 AM CDT 10 mg Given 10/25/2019 2:17 AM CDT 10 mg aspirin chewable tablet 81 mg Given 10/25/2019 8:49 AM CDT 81 mg 81 mg, Oral, QAM WITH BREAKFAST, First dose on Fri10/25/19 at 0045, Until Discontinued, Routine atorvastatin (LIPITOR) tablet 80 mg Given 10/25/2019 7:51 PM CDT 80 mg 80 mg, Oral, QHS, First dose on Fri10/25/19 at 0045, Until Discontinued, Routine Given 10/25/2019 2:17 AM CDT 80 mg ciprofloxacin HCl (CIPRO) tablet 500 mg Given 10/25/2019 7:51 PM CDT 500 mg 500 mg, Oral, Q12H, First dose on Fri10/25/19 at 0045, Until Discontinued, SILVIO, Reason for Anti-Infective: Documented Infection, Documented Infection Site: Blood, Duration of Therapy: 14 days Given 10/25/2019 8:49 AM CDT 500 mg Given 10/25/2019 2:17 AM CDT 500 mg docusate (COLACE) capsule 100 mg Given 10/25/2019 8:49 AM CDT 100 mg 100 mg, Oral, BID, First dose on Fri10/25/19 at 0800, Until Discontinued, Routine LORazepam (ATIVAN) tablet 2 mg Given 10/25/2019 7:51 PM CDT 2 mg 2 mg, Oral, BID, First dose on Fri10/25/19 at 0045, Until Discontinued, Routine Given 10/25/2019 8:49 AM CDT 2 mg Given 10/25/2019 2:17 AM CDT 2 mg metoprolol tartrate (LOPRESSOR) tablet 5 0 mg Given 10/25/2019 7:51 PM CDT 50 mg 50 mg, Oral, BID, First dose on Fri10/25/19 at 0045, Until Discontinued, Routine Given 10/25/2019 8:49 AM CDT 50 mg Given 10/25/2019 2:17 AM CDT 50 mg ondansetron (ZOFRAN (PF)) injection 4 mg 4 mg, Slow IV Push, Q6HPRN, Starting Fri10/25/19 at 003 0, Until Discontinued, Routine, Nausea and Vomiting (N/V) SERTraline (ZOLOFT) tablet 100 mg Given 10/25/2019 7:50 PM CDT 100 mg 100 mg, Oral, BID, First dose on Fri10/25/19 at 0045, Until Discontinued, Routine Given 10/25/2019 8:49 AM CDT 100 mg Given 10/25/2019 2:17 AM CDT 100 mg Medication Order MAR Action Action Date Dose Rate Site iohexol (OMNIPAQUE 350 BULK-75 mL) Given 10/24/2019 8:51 PM CDT 75 mL injection 75 mL 75 mL, Intravenous, ONCE, 1 dose, 10/24/19 at 2115, Routine KCL (KLOR-CON M20) tablet 40 mEq Given 10/25/2019 10:09 AM CDT 40 mEq 40 mEq, Oral, ONCE, 1 dose, 10/25/19 at 1015, Routine documented in this encounter Insurance Payer Benefit Plan / Subscriber ID Effective Phone Address T ype Group Dates KARMA PARADA xxxxxxxxx [id number]-Benjy GAUTAM Medic aid [facility] [place] [id number] [place]NA[place] MED[place] (Work) [id number] documented as of this encounter
--- OUTSIDE RECORDS SUMMARY | 2020-01-20 13:59 | XMS REPORT | Summary of Care ---
:1965 Author Organization [facility] [place] Address [address] [place] [address] Care Team Providers Name Role Phone James Burton Pato Primary Care Provider Reason for Visit Reason Comments Follow-up CAD/hospital DC (Routine) Status Reason Specialty Diagnoses / Referred By Referred To Procedures Contact Contact Closed IM-CARDIOVASCULAR Diagnoses NSTEMI (non-ST elevated myocardial infarction) Bacteremia due to Enterobacter species Lexi Ovalle MD DISEASE / Procedures Discharge Follow-Up: Specialty Service IM-CARDIOVASCULAR DISEASE; 4-6 Weeks [address] [place] [address] Encounter Details Date Type Department Care Team Description 11/04/2019 Telemedicine Visit [facility] Ludwig Escobar Coronar y artery disease involving [place] coronary artery of [place] heart with angina pectoris (Primary Dx); Cardiology- MD Davis NSTEMI (non-ST elevated myocardial infar ction); [place] [address] Bacteremia due to Enterobacter species; [address] [place] [address], [address] [place] [phone] Allergies Active Allergy Reactions Severity Noted Date Comments Prochlorperazine Edisylate Nausea and/or 08/21/2005 Vomiting Divalproex Sodium Anxiety 08/21/2005 Gabapentin Unknown - See 01/02/2008 Blurred vision comments Nsaids (Non-Steroidal Nausea and/or 06/15/2015 Anti-Inflammatory Drug) Vomiting Butorphanol Tartrate Rash 08/21/2005 Ketorolac Tromethamine Rash 08/21/2005 documented as of this encounter (statuses as of 11/16/2019) Medications Medication Sig Dispensed Refills Start End Date Status Date atorvastatin 80 mg Take 1 tablet 30 tablet 3 Active tabletIndications: by mouth at 0 S/P CABG (coronary bedtime. artery bypass graft), Coronary artery disease involving [place] coronary artery of [place] heart with angina pectoris LORazepam 2 mg [...] needed (Daily disease involving PRN based on [place] coronary leg swelling artery of [place] and body heart with angina weight) for up pectoris, NSTEMI to 30 doses. (non-ST elevated myocardial infarction) KCL 20 mEq Take 1 tablet 30 tablet 2 Activ e tabletIndications: by mouth as 0 Coronary artery needed disease involving (Recommend to [place] coronary take KCL if artery of [place] taking lasix.) heart with angina for up [...] as of this encounter (statuses as of 11/16/2019) Active Problems Problem Noted Date Pericardial effusion 10/25/2019 Arm DVT (deep venous thromboembolism), acute, left 04/2020 Chest pain 10/24/2019 NSTEMI (non-ST elevated myocardial infarction) 020 Left sided numbness 09/03/2019 S/P CABG (coronary artery bypass graft) 06/30/2019 Leukocytosis 06/16/2019 Tachycardia 06/15/2019 Coronary artery disease involving [place] coronary herson ry of [place] heart 06/08/2019 with angina pectoris Overview: Added automatically from request for ilan dorothy [id number] Sepsis 05/03/2019 Obesity (BMI 30-39.9) 05/03/2019 Other [...] as of this encounter (statuses as of 11/16/2019) Immunizations Name Administration Dates Next Due Influenza [...] Escobar MD - 11/04/2019 2:30 PM CDT [facility] Cardiology Consult Note Patient: Delilah Whyte Date of : 1965 Primary Care Physician: James Burton CHIEF COMPLAINT: Chief Complaint Patient presents with Follow-up CAD/hospital DC History of Present Illness: Delilah Whyte is [...] No syncopal attacks. 06/2019: had CABG On 03.09.2019: noted to have CVA/slurred speech and left facial drop. Was sent to [facility]. [facility] morbid obesity, HTN, HLD, stroke, CAD and KRISTOPHER not on C-PAP. On 11/2018: Admitted for new onset leg edema, dyspnea on exertion and orthopnea. She was in [facility] a few times for various issues [...] obstructive pulmonary disease) Coronary artery disease involving [place] coronary artery of [place] heart with angina pectoris 06/08/2019 Depression Encephalitis 2015 Essential hypertension, benign Former smoker History of CVA (cerebrovascular accident) left side numbness, L sided facial droop Hyperlipidemia Morbid obesity Posttraumatic stress disorder Right ovarian cyst Seizures 2014 encephalitis Unspecified migraine Past Surgical History: Procedure Laterality Date ANKLE ARTHRODESIS Right 1997 APPENDECTOMY CHOLECYSTECTOMY CORONARY ARTERY BYPASS GRAFT N/A 06/30/2019 Surgeon: Noah Bolton Jr., MD; Location: [facility] FOOT ORIF (SHX) Bilateral HYSTERECTOMY [...] file Gets together: Not on file Attends gnosticism service: Not on file Active member of [...] on file Social History Narrative Lives in [place] with and Kids ALLERGIES Allergies Allergen Reactions [...] (H) ASSESSMENT/PLAN 1. Coronary artery disease involving [place] coronary artery of [place] heart with angina pectoris furosemide 40 mg [...] Recommend to follow up with Dr Gardiner (ophthalmic pathologist). Chronic HFpEF--Likely due to morbid obesity, underlying [...] in the answers given. We reviewed the [place] [employer] recommendations for reduction of overall [...] feel free to call our office at [phone]. I would be happy to be of further assistance for Delilah Whyte wellbeing. Rafy Escobar MD Steel Pickler, Division of Cardiology [facility] documented in this encounter Plan of Treatment Date Type Specialty Care Team Description 01/06/2020 Office Visit Cardiology Ludwig Escobar MD [address] [place] [phone] Health Maintenance Due Date Last Done Comments DTaP,Tdap,and Td Vaccines (1 - Tdap) 1975 PAP SMEAR 1985 Breast Cancer Screening (MAMMOGRAM) 2004 COLONOSCOPY 2014 Zoster Recombinant Vaccine (SHINGRIX) (1 2014 of 2) LUNG CANCER SCREEN: Recommended for age 1208/01/2019 55-80 with 30 + pack year history PNEUMOCOCCAL 0-64 YEARS COMBINED SERIES Completed 12/11/19 HEPATITIS C (HCV) SCREEN Completed 10/11/2019 INFLUENZA VACCINE Completed 10/18/2019, 12/10/2018 documented as of this encounter Implants Implanted Type Area Sales Porter Device Shelf Expiration Model / Identifier Date Serial / Lot Screw SCREW Right: Ankle Screw SCREW Left: Foot documented as of this encounter Results Not on filedocumented in this encounter Visit Diagnoses Diagnosis Coronary artery disease involving [place] coronary artery of [place] heart with angina pectoris - Primary NSTEMI (non-ST elevated myocardial infar ction) Acute myocardial infarction, subendocard ial infarction, episode of care unspecified Bacteremia due to Enterobacter species Pericardial effusion Unspecified disease of pericardium documented in this encounter Insurance Payer Benefit Plan / Subscriber ID Effective Phone Address T e Group Dates KARMA PARADA xxxxxxxxx 2015-Be[place] [address] Medic [place] [id number] [place]GED [place], [place] (Work) [id number] documented as of this encounter
--- OUTSIDE RECORDS SUMMARY | 2020-01-20 13:59 | XMS REPORT | Summary of Care ---
:1965 Author Organization [facility] Address [address] [place] [address] Care Team Providers Name Role Phone James Burton Primary Care Provider Reason for Visit Reason Comments Refill Request Encounter Details Date Type Department Care Team Description 11/05/2019 Refill [facility] Cardiology- Ludwig Escobar MD Refill Request [place] [address] [facility], [address] [facility] [address] [place] [address] [place] [address] [phone] Allergies Active Allergy Reactions Severity Noted Date Comments Prochlorperazine Edisylate Nausea and/or 08/21/2005 Vomiting Divalproex Sodium Anxiety 08/21/2005 Gabapentin Unknown - See 01/02/2008 Blurred vision comments Nsaids (Non-Steroidal Nausea and/or 06/15/2015 Anti-Inflammatory Drug) Vomiting Butorphanol Tartrate Rash 08/21/2005 Ketorolac Tromethamine Rash 08/21/2005 documented as of this encounter (statuses as of 11/12/2019) Medications Medication Sig Dispensed Refills Start End Date Status Date atorvastatin 80 mg Take 1 tablet 30 tablet 3 Active tabletIndications: by mouth at 0 S/P CABG (coronary bedtime. artery bypass graft), Coronary artery disease involving [place] coronary artery of [place] heart with angina pectoris LORazepam 2 mg [...] tablet mouth as 0 20 (Reorder) needed. apixaban 5 mg Take 1 tablet 60 tablet 0 11/12/19 Di scontinued tabletIndications: by mouth 2 0 20 (Reorder) deep vein (two) times thrombosis daily. prevention Indications: deep vein thrombosis prevention furosemide 40 mg Take 1 tablet 30 tablet 1 11/07/19 Discontinued tablet by mouth as 0 20 needed (based on weight). documented as of this encounter (statuses as of 11/12/2019) Active Problems Problem Noted Date Pericardial effusion 10/25/2019 Arm DVT (deep venous thromboembolism), acute, left 04/2020 Chest pain 10/24/2019 NSTEMI (non-ST elevated myocardial infarction) 020 Left sided numbness 09/03/2019 S/P CABG (coronary artery bypass graft) 06/30/2019 Leukocytosis 06/16/2019 Tachycardia 06/15/2019 Coronary artery disease involving [place] coronary herson ry of [place] heart 06/08/2019 with angina pectoris Overview: Added automatically from request for ilan de la cruz [id number] Sepsis 05/03/2019 Obesity (BMI 30-39.9) 05/03/2019 Other [...] as of this encounter (statuses as of 11/12/2019) Immunizations Name Administration Dates Next Due Influenza [...] filedocumented in this encounter Plan of Treatment Date Type Specialty Care Team Description 01/06/2020 Office Visit Cardiology Ludwig Escobar MD [address] [place] [address] [place] [address] [phone] Health Maintenance Due Date Last Done [...] of this encounter Implants Implanted Type Area Sign Out Clerk Device Shelf Expiration Model / Identifier Date [...] / Subscriber ID Effective Phone Address T legacy health Group Dates KARMA PARADA xxxxxxxxx 2015-Benjy [place] O BOX Medic [facility] [place] [facility] [place] [id number] MANAGED MEDICA[place] documented as of this encounter
--- OUTSIDE RECORDS SUMMARY | 2020-01-20 14:01 | XMS REPORT | Summary of Care ---
:1965 Author Organization [facility] Address [address] [place] [id number] Care Team Providers Name Role Phone Sonja Burton Primary Care Provider Reason for Referral (Routine) Status Reason Specialty Diagnoses / Referred By Referred To Procedures Contact Contact New Request Diagnoses Weakness History of CVA (cerebrovascular accident) Jonathon Burton Patel, Mites h M Procedures Discharge Follow-up: PCP SONJA BURTON; [address] [place] [address] [address] [id number] [place], [place] Phone: [phone] Phone: Fax: MRI/CAT Scan (Routine) Status Reason Specialty Diagnoses / Referred By Referred To Procedures Contact Contact New Request Diagnostic Diagnoses Weakness Jonathon Burton Radiology Procedures MR STROKE BRAIN WO CONTRAST MD Sunny [address] [place] [phone] MRI/CAT Scan (STAT) Status Reason Specialty Diagnoses / Referred By Referred To Procedures Contact Contact New Request Diagnostic Diagnoses Jonathon Frankel Radiology Procedures CT STROKE ANGIOGRAM HEAD MD Sunny [address] [place] [address] MRI/CAT Scan (STAT) Status Reason Specialty Diagnoses / Referred By Referred To Procedures Contact Contact New Request Diagnostic Diagnoses Weakness Jonathon Burton Radiology Procedures CT STROKE ANGIOGRAM NECK MD Sunny [address] [place] [address] MRI/CAT Scan (STAT) Status Reason Specialty Diagnoses / Referred By Referred To Procedures Contact Contact New Request Diagnostic Diagnoses Weakness Cameron Barahona Radiology Procedures CT HEAD WO CONTRAST MD Kalli [address] [address] Reason for Visit Reason Comments Weakness Other memory problems, numbness on left hand. Auth/Cert Status Reason Specialty Diagnoses / Referred By Referred To Procedures Contact Contact Emergency Medicine [facility] [address] [facility] [place] [phone] Fax: Encounter Details Date Type Department Care Team Description 12/24/2019 - Hospital Encounter Neurology/Neurologica Cameron Barahona MD [address] [address] Weakness 12/25/2019 l Surgery (BARBARA 11B) Jonathon Burton MD [address] [place] [address] [address] [place] [address] Allergies Active Allergy Reactions Severity Noted Date Comments Prochlorperazine Edisylate Nausea and/or 08/21/2005 Vomiting Divalproex Sodium Anxiety 08/21/2005 Gabapentin Unknown - See 01/02/2008 Blurred vision comments Nsaids (Non-Steroidal Nausea and/or 06/15/2015 Anti-Inflammatory Drug) Vomiting Butorphanol Tartrate Rash 08/21/2005 Ketorolac Tromethamine Rash 08/21/2005 documented as of this encounter (statuses as of 12/25/2019) Medications Medication Sig Dispensed Refills Start Date End Date Status atorvastatin 80 mg Take 1 tablet by 30 tablet 3 09/03/2019 Active tabletIndications: mouth at bedtime. S/P CABG (coronary artery bypass graft), Coronary artery disease involving [place] coronary artery of [place] heart with angina pectoris LORazepam 2 mg tablet Take 1 tablet by 0 10/14/2019 Active mouth 2 (two) times daily. SERTraline 100 mg Take 1 tablet by 0 10/14/2019 Active tablet mouth daily. buPROPion SR 100 mg Take 1 tablet by 60 tablet 0 10/18/2019 Active SR tabletIndications: mouth 2 (two) NSTEMI (non-ST times daily. elevated myocardial infarction), Bacteremia due to Enterobacter species zolpidem (AMBIEN) 10 Take 10 mg by 0 Active mg tablet mouth at bedtime as needed for Insomnia. promethazine HCl Take 25 mg by 0 Active (PHENERGAN ORAL) mouth as needed for Nausea and Vomiting (N/V). topiramate 50 mg Take 50 mg by 0 09/01/2019 Active tablet mouth 2 (two) times daily. metoprolol tartrate Take 1 tablet by 60 tablet 0 11/07/2019 Active 50 mg mouth 2 (two) tabletIndications: times daily. NSTEMI (non-ST elevated myocardial infarction), Bacteremia due to Enterobacter species colchicine 0.6 mg Take 1 capsule by 60 capsule 0 11/07/2019 Active CapIndications: mouth 2 (two) Pericardial effusion times daily. furosemide 40 mg Take 1 tablet by 30 tablet 2 11/07/2019 Active tabletIndications: mouth as needed Coronary artery (Daily PRN based disease involving on leg swelling [place] coronary and body weight) artery of [place] for up to 30 heart with angina doses. pectoris, NSTEMI (non-ST elevated myocardial infarction) KCL 20 mEq Take 1 tablet by 30 tablet 2 11/07/2019 A ctive tabletIndications: mouth as needed Coronary artery (Recommend to take disease involving KCL if taking [place] coronary lasix.) for up to artery of [place] 30 doses. heart with angina pectoris, NSTEMI (non-ST elevated myocardial infarction) metoprolol tartrate Take 1 tablet by 60 tablet 0 11/10/2019 Active 50 mg mouth 2 (two) tabletIndications: times daily. NSTEMI (non-ST elevated myocardial infarction), Bacteremia due to Enterobacter species apixaban 5 mg Take 1 tablet by 60 tablet 1 11/12/2019 Active tabletIndications: mouth 2 (two) deep vein thrombosis times daily. prevention Indications: deep vein thrombosis prevention documented as of this encounter (statuses as of 12/25/2019) Active Problems Problem Noted Date Weakness 12/25/2019 Pericardial effusion 10/25/2019 Arm DVT (deep venous thromboembolism), acute, left 04/2020 Chest pain 10/24/2019 NSTEMI (non-ST elevated myocardial infarction) 020 Left sided numbness 09/03/2019 S/P CABG (coronary artery bypass graft) 06/30/2019 Leukocytosis 06/16/2019 Tachycardia 06/15/2019 Coronary artery disease involving skull valley coronary herson ry of skull valley heart 06/08/2019 with angina pectoris Overview: Added automatically from request for ilan de la cruz [id number] Sepsis 05/03/2019 Obesity (BMI 30-39.9) 05/03/2019 Other [...] as of this encounter (statuses as of 12/25/2019) Immunizations Name Administration Dates Next Due Influenza [...] Travel End No recent travel history available. COVID-19 Exposure Response Date Recorded In the last month, have you been in contact with No / Unsure 12/24/2019 8:59 PM CDT someone who was confirmed or suspected to have Coronavirus / COVID-19? documented as of this encounter Last Filed Vital Signs Vital Sign Reading Time Taken Comments Blood Pressure 134/80 12/25/2019 11:46 AM CDT Pulse 77 12/25/2019 11:46 AM CDT Temperature 36.4 C (97.5 F) 12/25/2019 11:46 AM CDT Respiratory Rate 18 12/25/2019 11:46 AM CDT Oxygen Saturation 99% 12/25/2019 11:46 AM CDT Inhaled Oxygen Concentration - - Weight 74.8 kg (165 lb) 12/25/2019 2:35 AM CDT Height 160 cm (5' 3") 12/25/2019 2:35 AM CDT Body Mass Index 29.23 12/25/2019 2:35 AM CDT documented in this encounter Discharge Summaries Jovan Landaverde MD - 12/25/2019 1:47 PM CDT NEUROLOGY DISCHARGE SUMMARY STROKE SERVICE Date of Service: 12/25/2019 13:48 ADMIT DATE: 12/24/2019 DISCHARGE DATE: 12/25/2019 13:48 ATTENDING MD: Dr. Malcolm Burton RESIDENT MD: Dr. Landaverde PCP: Sonja Burton CHIEF COMPLAINT: Left sided numbness and weakness, R hand clumsiness FINAL DIAGNOSIS Recrudescence of old R MCA stroke IV Alteplase: Not Given Reason IV Alteplase was not given: >4.5 hr out of window Endovascular Intervention: Not done SECONDARY DIAGNOSIS: Hx of provoked DVT in left upper extremity (currently on Eliquis) HTN HLD Hx of HFrEF Tobacco use Depression HOSPITAL COURSE Delilah Whyte is a 54 year old female right handed female with stroke risk factors such as age, hypertension, history of prior strokes in the right MCA territory, former smoker, and CAD s/p CABG, transferred with a chief complaint of acute on chronic worsening of left sided numbness and weakness, and a new onset right hand clumsiness. She said that a few years ago she had a stroke with residual weakness and numbness on the left side of her body. At baseline she is independent for ADLs and IADLs and can walk without a walker. Over past 4-5 days she started noticing worsening of her left-sided symptoms. NIHSS at presentation was 4 which is comparable to her baseline. She does have some effort dependent embellishment which makes judgin true versus exaggerated weakness difficult. MRI showed no acute infarction. CTA unremarkable. PLAN / ITEMS FOR FOLLOW UP PROVIDER: - c/w home meds as prior - follow up with PCP in 1 week PHYSICAL EXAM ON DISCHARGE: General: Alert and oriented x 4 (time, person, place and situation); no apparent distress. Mental Status: Consciousness, attention, concentration: normal, Stays focused and on task while being questioned. Speech/ Language: intact to comprehension, fluency, repetition and naming. Fund of knowledge: is congruent with level of education. Remote and recent memory: normal, can recall recent and distant memories Cranial Nerves: I. Not tested. II. PERRL. FOV full to confrontation. Discs visualized, no papilledema. III. IV., . Extraocular movements intact without nystagmus. V. Normal sensation in V1-3 distributions. VII. No facial droop noted. VIII. Hearing intact. IX., X. Palatal elevation and gag response present symmetrically. XI. Normal Strength of sternocleidomastoid and trapezius muscles bilaterally. XII. Tongue in midline. Motor: Tone: normal Bulk: normal STRENGTH Right Left Deltoid 5 5 Biceps 5 5 Triceps 5 5 Wrist extensors 5 5 Interossei 5 5 Hip flexors 5 5 Knee flexors (hamstring) 5 5 Knee extensors(quadriceps) 5 5 Ankle dorsiflexors 5 5 Ankle plantarflexors 5 5 DTR's: Right Left Biceps 2+ 2+ Triceps 2+ 2+ Brachioradialis 2+ 2+ Patella 2+ 2+ Achilles 2+ 2+ Pathologic reflexes and signs: Spicer: absent Babinski: absent Jaw Jerk: absent Cerebellar: Nystagmus: neg, FTN: nl, HTS:nl, Tremors: neg, Dysdiadochokinesia: neg Sensory: LT: intact, temperature: intact, PP: intact, proprioception: intact, Vibration: intact Gait: normal HEENT: pupils equal, round, reactive to light; extraocular movements intact; oropharynx clear; moistmucous membranes Lungs: clear to auscultation bilaterally Cardio: S1, S2 normal Extremities:no cyanosis,clubbing or edema Neck:supple,no carotid bruit,no JVD Abdomen: soft; non-tender; non-distended NIH STROKE SCALE: ADMISSION AND DISCHARGE STROKE SCALE INTERVAL: Baseline STROKE SCALE TOTAL SCORE: 4 STROKE SCALE INTERVAL: Baseline STROKE SCALE TOTAL SCORE: 4 MODIFIED ESTEFANI SCORE ON DISCHARGE 0 - No symptoms at all MODIFIABLE RISK FACTORS: ANTIHYPERTENSIVE TREATMENT: maximino inhibitors. Taking any antihypertensive medications prior to admission? No CHOLESTEROL REDUCING TREATMENT: statin. Taking any cholesterol reducers prior to admission? Yes ATRIAL FIBRILLATION TREATMENT: If atrial fibrillation documented, was patient discharged on anticoagulants? Apixaban for DVT If no, give reason for no treatment: no afib. DIABETIC TREATMENT: none prescribed Taking any diabetic medication prior to admission? No ANTI-SMOKING TREATMENT: counseling OTHER LIFESTYLE INTERVENTIONS: Reducing weight and/or increasing activity recommendations? Yes ANTITHROMBOTIC INTERVENTION: no Taking any antithrombotic prior to admission? No Any antithrombotics initiated within Not done? PERTINENT LABORATORY/IMAGING FINDINGS: STROKE LABS HGB A1C (% NGSP) Date Value 09/03/2019 6.3 (H) LDL CHOL Date Value 12/24/2019 73 mg/dL 01/05/2008 190 MG/DL (H) CHOL Date Value 12/24/2019 139 mg/dL 01/05/2008 266 MG/DL (H) TSH (mIU/L) Date Value 12/24/[address] Head Wo Contrast Result Date: 12/24/2019 No acute findings. Chronic changes as discussed in the body the report. Mr Stroke Brain Wo Contrast Result Date: 12/25/2019 No acute intracranial findings such as acute ischemia, intracranial hemorrhage or mass effect. Moderate size chronic infarction in the right frontoparietal lobes and the right MCA distribution. Ct Stroke Angiogram Head Result Date: 12/25/2019 No flow-limiting stenosis or aneurysm of the intracranial or cervical arteries. Specifically no large vessel occlusion is seen. Mild atherosclerotic disease is seen in the carotid bifurcations bilaterally, right greater than left. Preliminary Report Dictated by Resident: Harley Melendez MD., have reviewed this study and agree with the above report. Ct Stroke Angiogram Neck Result Date: 12/25/2019 No flow-limiting stenosis or aneurysm of the intracranial or cervical arteries. Specifically no large vessel occlusion is seen. Mild atherosclerotic disease is seen in the carotid bifurcations bilaterally, right greater than left. Preliminary Report Dictated by Resident: Harley Melendez MD., have reviewed this study and agree with the above report. DISCHARGE MEDICATIONS: Current Discharge Medication List CONTINUE these medications which have NOT CHANGED Details apixaban (ELIQUIS) 5 mg Take 5 mg by mouth 2 (two) times daily. Qty: 60 tablet, Refills: 1 Associated Diagnoses: NSTEMI (non-ST elevated myocardial infarction); Bacteremia due to Enterobacter species !! metoprolol tartrate (LOPRESSOR) 50 mg Take 50 mg by mouth 2 (two) times daily. Qty: 60 tablet, Refills: 0 Associated Diagnoses: NSTEMI (non-ST elevated myocardial infarction); Bacteremia due to Enterobacter species colchicine (MITIGARE) 1 capsule Take 1 capsule by mouth 2 (two) times daily. Qty: 60 capsule, Refills: 0 Associated Diagnoses: Pericardial effusion furosemide (LASIX) 40 mg Take 40 mg by mouth as needed (Daily PRN based on leg swelling and body weight). Qty: 30 tablet, Refills: 2 Associated Diagnoses: Coronary artery disease involving [place] coronary artery of [place] heart withangina pectoris; NSTEMI (non-ST elevated myocardial infarction) KCL (KLOR-CON M20) 20 mEq Take 20 mEq by mouth as needed (Recommend to take KCL if taking lasix.). Qty: 30 tablet, Refills: 2 Comments: Recommend to take KCL if taking lasix. Associated Diagnoses: Coronary artery disease involving [place] coronary artery of [place] heart with angina pectoris; NSTEMI (non-ST elevated myocardial infarction) !! metoprolol tartrate (LOPRESSOR) 50 mg Take 50 mg by mouth 2 (two) times daily. Qty: 60 tablet, Refills: 0 Associated Diagnoses: NSTEMI (non-ST elevated myocardial infarction); Bacteremia due to Enterobacter species topiramate (TOPAMAX) 50 mg Take 50 mg by mouth 2 (two) times daily. promethazine HCl (PHENERGAN ORAL) 25 mg Take 25 mg by mouth as needed for Nausea and Vomiting (N/V). zolpidem (AMBIEN) 10 mg Take 10 mg by mouth at bedtime as needed for Insomnia. buPROPion SR (WELLBUTRIN SR) 100 mg Take 100 mg by mouth 2 (two) times daily. Qty: 60 tablet, Refills: 0 Associated Diagnoses: NSTEMI (non-ST elevated myocardial infarction); Bacteremia due to Enterobacter species LORazepam (ATIVAN) 2 mg Take 2 mg by mouth 2 (two) times daily. Refills: 0 SERTraline (ZOLOFT) 100 mg Take 100 mg by mouth daily. Refills: 0 atorvastatin (LIPITOR) 80 mg Take 80 mg by mouth at bedtime. Qty: 30 tablet, Refills: 3 Associated Diagnoses: S/P CABG (coronary artery bypass graft); Coronary artery disease involving [place] coronary artery of [place] heart with angina pectoris !! - Potential duplicate medications found. Please discuss with provider. DISCHARGE DISPOSITION: Activity: as tolerated Discharged :Discharged: Home Condition at discharge: Good PT/OT Follow-Up: n/a FOLLOW-UP APPOINTMENTS: Future Appointments Date Time Provider Department Center 01/06/2020 10:00 AM Ludwig Escobar MD [facility] [place] Discharge Orders Patient/Family Education on Stroke Risk Factor Modification Patient's Risk Factors: HLD Patient's Risk Factors: HTN Patient/Family Education on Stroke Signs and Symptoms Patient/Family Education on Discharge Medications Patient/Family Education on Follow Up Appointment Information Patient/Family Education on Activation of an Emergency System and/or 911 Other (see Comments) Order Comments: done Antithrombotic already ordered ANTICOAGULATION THERAPY AT DISCHARGE CONTRAINDICATED OR NOT INDICATED Reason: Other (comments) (no afib) Reason Other (comments) no afib Discharge Statin already ordered Discharge Follow-up: PCP SONJA BURTON; 1 Week To PCP: SONJA BURTON [[id number]] Patient's Preferred Location: Unknown Discharge Disposition: HOME, (AHR) When (Patients with risk for unplanned readmission score over 16 or those noted as Hospital Dependent should follow up within 7 days with PCP or primary DX specialist): 1 Week Risk of Unplanned Readmission:( Score greater than 16 indicates high risk) 22 Smoking Cessation / Tobacco Avoidance Education Order Comments: Nursing Assessment Info: Physician Assessment Info: Smoker: No Social History Tobacco Use Smoking status: Former Smoker Packs/day: 1.00 Years: 10.00 Pack years: 10 Types: Cigarettes Quit date: 2014 Years since quittin.3 Smokeless tobacco: Never Used General Info: Cardiac (2 gm Sodium, Low Fat, Low Cholesterol) Diet; Texture: Regular. Texture Regular. Diabetic: No Discharge Condition - Discharge Condition: GOOD Discharge Activity Discharge Activity: As Tolerated Associated attestation - Jonathon Burton MD - 12/25/2019 6:54 PM CDTMRI brain- no acute infarct CTA - no large vessel occlusion I personally examined the patient on 12/25/[address] Landaverde`s note. I actively participated in the decision-making process. Please see the resident's note for additional details. Jonathon Burton MD documented in this encounter Discharge Instructions AttachmentsThe following attachments cannot be sent through Care Everywhere. Stroke, Preventing Another: For Caregivers (Maldivian)Weakness (Uncertain Cause) (Maldivian)documented in this encounter Progress Notes Deneen Saleem RN - 12/25/2019 3:11 PM CDT Care Management Discharge Disposition Note (DCDN) 5-2-1 Interventions: Disease specific education;Intensive medication reconciliation/management;Teachback;Clear discharge plan;Follow-up appointments;Follow-up phone calls 5-2-1 Providers: Physician;Kickboxing Instructor/Erco Machine Operator;Nurse 5-2-1 Patient Capacity Improvements: Avoidance of adverse events/readmission Discharge Plan for ongoing care and services: Is this a new referral: Patient Choice completed for referred services: DME location: Other DME location: Durable Medical Equipment: Home Health location: Discharge location(s): Patient choice completed for referred services: Discussed with patient/patients family involved in decision making: Patient or family caregiver understands, and agrees with discharge plan. Community resources/referrals made or provided to patient: Resources/Referrals: Transportation: Private Vehicle Mental Status: Alert & Oriented to Person,Place & Time Living Arrangement: Home Other living arrangement: Address of living arrangement: [address] [place] [address] Funding Resources: Medicaid HMO([facility] MEDICAID/[facility] MEDICAID) Nursing informed of discharge plan: Yes Name of RN informed: Obi CERDA Estimated discharge date: 12/25/19 Time: 1600 Additional Information: Spouse: Swapnil Whyte P: [phone], Child: Shellie Whyte will pick ptup when medically ready for dc. CM/VERENA Name & Contact number: Deneen Saleem RN . [phone] The following information has been provided to the facility noted above: reason for the patient discharge or transfer; patients physical and psychosocial status; summary of care, treatment, servicesprovided to patient; and the patient progress toward goals. Deneen Peguero RN - 12/25/2019 3:05 PM CDTCARE MANAGEMENT NOTE CC met with patient and she does not want HH services at this time. She stated that she doesn't wantHH or OP services. CC instructed the patient that if she changes her mind she can get it from her PCP. CC to continue to follow and assist in discharge planning. Deneen Saleem "BREN", RN-BSN Leasing Associate [facility] [phone] [email or web address] Deneen Peguero RN - 12/25/2019 10:10 AM CDTCare Management Social Functional Assessment Patient Name: Delilah Whyte Age: [age] year old Sex: female Patient's Previous Admission Date at [facility]: 10/10/2019 Current diagnosis and co-morbidities: Weakness Readmission Questions: Was patient discharged from any acute care hospital within the last 30 days: No Social Functional Assessment: Primary language spoken/preferred: Maldivian Mental Status: Alert & Oriented to Person,Place & Time Information given by: Self Patient's support system: Spouse;Child Name and number of support system: Spouse: Swapnil Whyte P: [phone], Child: Shellie Whyte Primary Cellar Hand: Stanton MPOA: No Living Arrangement: Home Address of living arrangement : [address] [place] [address] Persons living in home: Same as support system Barriers to returning home: Declining function Baseline functional status- ambulation: Requires minimal to moderate assistance Functional status-baseline personal care: Requires minimal to moderate assistance Baseline functional status- driving: Dependent Baseline functional status- grocery shopping: Requires minimal to moderate assistance Functional status-baseline housekeeping: Requires minimal to moderate assistance Functional status-baseline meal prep: Requires minimal to moderate assistance Current functional status same as prior: Yes Do you have a PCP?: Yes Name of PCP: Sonja Burton Home Health Care Agency: No Provider Services: No DME Company: No Equipment: Walker;Wheelchair: Manual Hemodialysis: No Community resources utilized: None Funding Resources: Medicaid HMO([employer] MANAGED MEDICAID/[facility] MEDICAID) Prescription coverage plan: Medicaid unlimited slots Pharmacy where meds are filled: Other Other pharmacy: [facility] Anticipated services prior to disharge: Continue Medical Eval;PT/OT/ST;CSEAR/TTE;MRI/CT/US;Lab Values;Consult Expected mode of discharge transportation: Same as support system Additional Recommendations for DC: pt states either Spouse: Swapnil Whyte P: [phone], Child: Shellie Whyte will pick her up when medically ready for dc. Additional info required for discharge planning: Pending medical evaluation;Pending P/T O/T recommendation Recommended discharge plan: Home;Home with new Home Health Any issues or concerns with obtaining/affording your medications at home: no. Are you or your support system able to pick and shovel worker medications at discharge: yes. SFA Complete: Social Functional Assessment complete: Yes Alcohol Use Screening (AUDIT-C) How often do you have a drink containing alcohol?: Never SCORE: 0 Role of Care Management explained. Deneen HOLLAND", RN-BSN [facility]asing Associate [facility] [phone] [email or web address] Zack Manzo OT - 12/25/2019 8:35 AM CDT12/25/2019 0835 OCCUPATIONAL THERAPY NOTE: Consult received and chart reviewed. Attempted to see patient for initial OT eval, however patient currently with transfer services leaving unit for procedure. Will attempt again later, as timer permits. Jenna Manzo OTR Pager [phone] documented in this encounter Plan of Treatment Date Type Specialty Care Team Description 01/06/2020 Telemedicine Visit Cardiology Yancy Escobar MD [address] [place] [phone] Name Type Priority Associated Diagnoses Order S chedule Troponin I LAB Add-on EVERY 8 HOURS ( START TIME ADJUSTABLE) for 3 Occurrenc es starting 12/25/2019 until 0, 1 completed Health Maintenance Due Date Last Done Comments [...] of this encounter Implants Implanted Type Area Local Area Network Administrator Device Shelf Expiration Model / Identifier Date Serial / Lot Screw SCREW Right: Ankle Screw SCREW Left: Foot documented as of this encounter Procedures Procedure Name Priority Date/Time Associated Comments Diagnosis MR STROKE BRAIN WO Routine 12/25/2019 9:14 Weakness Resul ts for this CONTRAST AM CDT procedure are i n the results section. CT STROKE ANGIOGRAM STAT 12/25/2019 6:12 Weakness Resu lts for this NECK AM CDT procedure are i n the results section. CT STROKE ANGIOGRAM STAT 12/25/2019 6:12 Weakness Resu lts for this HEAD AM CDT procedure are i n the results section. CORONAVIRUS COVID-19 STAT 12/24/2019 10:38 Weakness Res ults for this TESTING PM CDT procedure are i n the results section. CBC WITH DIFFERENTIAL STAT 12/24/2019 10:38 Weakness Re sults for this PM CDT procedure are i n the results section. N-TERMINAL PRO-BNP STAT 12/24/2019 10:38 Weakness Resul ts for this PM CDT procedure are i n the results section. URINALYSIS STAT 12/24/2019 10:38 Weakness Results for this PM CDT procedure are i n the results section. PROTHROMBIN TIME / STAT 12/24/2019 10:38 Weakness Resul ts for this INR PM CDT procedure are i n the results section. GLYCOSYLATED Add-on 12/24/2019 10:38 Results for this HEMOGLOBIN (A1C) PM CDT procedure a re in the results section. CBC WITH DIFFERENTIAL STAT 12/24/2019 10:38 Weakness Re sults for this PM CDT procedure are i n the results section. LIPID PANEL Add-on 12/24/2019 10:38 Results for this (26541)(TOTAL PM CDT procedure are in CHOLESTEROL, the results TRIGLYCERIDES, HDL) section. COMP. METABOLIC PANEL STAT 12/24/2019 10:38 Weakness Re sults for this (48489) PM CDT procedure are i n the results section. THYROID STIMULATING Add-on 12/24/2019 10:38 Resu lts for this HORMONE PM CDT procedure are i n the results section. TROPONIN I Add-on 12/24/2019 10:38 Results for this PM CDT procedure are i n the results section. TROPONIN I STAT 12/24/2019 10:38 Weakness Results for this PM CDT procedure are i n the results section. MAGNESIUM STAT 12/24/2019 10:38 Weakness Results for this PM CDT procedure are i n the results section. CT HEAD WO CONTRAST STAT 12/24/2019 9:46 Weakness Resu lts for this PM CDT procedure are i n the results section. EKG-12 LEAD Routine 12/24/2019 9:34 PM CDT EKG-12 LEAD Routine 12/24/2019 9:33 PM CDT CONSENT/REFUSAL FOR Routine 12/24/2019 9:02 DIAGNOSIS AND PM CDT TREATMENT documented in this encounter Results MR STROKE BRAIN WO CONTRAST (12/25/2019 9:14 AM CDT) Specimen Impressions Performed At PACS/VR/DOSE No acute intracranial findings such as a cute ischemia, intracranial hemorrhage or mass effect. Moderate size chronic infarction in the right frontopa rietal lobes and the right MCA distribution. Narrative Performed At HISTORY:Stroke suspected, focal neuro de ficit, > 6 hrs Hx of stroke with PACS/VR/DOSE new onset symptoms S/SX, new onset sympt oms of bilateral weakness. TECHNIQUE: MRI of the brain was performe d without IV contrast. COMPARISON: CT 12/24/2019 FINDINGS: Moderate-sized chronic infarction is identified involv ing the right frontal and parietal lobes in the MCA distribution. Small amou nt of right insular involvement is also seen. The ventricles and sulci are within norm al limits for patient's age. No significant cardiovascular ischemic c hanges are otherwise identified. There is no midline shift. The basal cis terns are preserved. There is no diffusion restriction to sug gest an acute infarct. No pathological extra-axial fluid collection is seen. No abnormal foci of gradient blooming is identified. Procedure Note [facility], Radiant Results Inft User - 2019 9:25 AM CDT HISTORY:Stroke suspected, focal neuro deficit, > 6 hrs Hx of stroke with new onset symptoms S/SX, new onset sympt oms of bilateral weakness. TECHNIQUE: MRI of the brain was performe d without IV contrast. COMPARISON: CT 12/24/2019 FINDINGS: Moderate-sized chronic infarction is jarad ntified involving the right frontal and parietal lobes in the MCA distributi on. Small amount of right insular involvement is also seen. The ventricles and sulci are within norm al limits for patient's age. No significant cardiovascular ischemic c hanges are otherwise identified. There is no midline shift. The basal cis terns are preserved. There is no diffusion restriction to sug gest an acute infarct. No pathological extra-axial fluid collec tion is seen. No abnormal foci of gradient blooming is identified. IMPRESSION No acute intracranial findings such as a cute ischemia, intracranial hemorrhage or mass effect. Moderate size chronic infarction in the right frontoparietal lobes and the right MCA distribution. Performing Organization Address City/State/Zipcode Phone Number PACS/VR/DOSE CT STROKE ANGIOGRAM HEAD (12/25/2019 6:12 AM CDT) Specimen Impressions Performed At PACS/VR/DOSE No flow-limiting stenosis or aneurysm of the intracranial or cervical arteries. Specifically no large vessel o cclusion is seen. Mild atherosclerotic disease is seen in the carotid bifurcations bilaterally, right greater than left. Preliminary Report Dictated by Resident: Harley Melendez MD., have reviewed this study and agree with the above report. Narrative Performed At EXAM: CT STROKE ANGIOGRAM NECK, PACS/VR/DOSE EXAM: CT STROKE ANGIOGRAM HEAD COMPARISON: CT head 12/24/2019 HISTORY: New onset weakness TECHNIQUE: Axial CT imaging of the [place] an d from the skull base to the superior mediastinum was obtained during arterial phase after the intravenous administration of IV contrast. Coronal, sa gittal, and MIPS were constructed. FINDINGS: HEAD: The bilateral intracranial vertebral art eries are patent. The basilar artery is normal in caliber with short segment fenestr ation just above the junction of the vertebral arteries. The ACAs and waste recycler are unremarkable. Mild calcified and noncalcified atherosc lerotic plaque affects the cavernous and supraclinoid ICAs, bilater ally without resulting in significant stenosis. A small dilated infundibulum pro jects from the right supraclinoid ICA on 3:173. The ACAs and MCAs are unrem arkable. An anterior communicating artery is visualized. Right frontal lobe encephalomalacia is r eidentified. NECK: Conventional 3 vessel branching anatomy of the aortic arch is noted. Mild noncalcified atherosclerotic disease is seen in the aortic arch without significant stenosis. The great vessel ostia are paten t. The innominate and bilateral subclavian arteries are unrema rkable. There is mild stenosis of the right comm on carotid artery origin due to noncalcified atherosclerotic plaque. Add itional mild stenosis is seen at the proximal right ICA also due to noncalcified plaque . A small amount of calcified atherosclerotic plaque is seen at the proxim al left ICA without resulting in significant stenosis. The left common car otid artery, carotid bulb, and cervical ICA are otherwise unr emarkable. The cervical vertebral arteries are unremarkable. Thes e originate from the subclavian arteries bilaterally and are essentially codominant. Procedure Note [facility], [facility]iant Results Inft User - 2019 9:01 AM CDT EXAM: CT STROKE ANGIOGRAM NECK, EXAM: CT STROKE ANGIOGRAM HEAD COMPARISON: CT head 12/24/2019 HISTORY: New onset weakness TECHNIQUE: Axial CT imaging of the [place] and from the skull base to the superior mediastinum was obtained during arterial phase after the intravenous administration of IV contras t. Coronal, sagittal, and MIPS were constructed. FINDINGS: HEAD: The bilateral intracranial vertebral art eries are patent. The basilar artery is normal in caliber with short s egment fenestration just above the junction of the vertebral arteries. The ACAs and waste recycler are unremarkable. Mild calcified and noncalcified atherosc lerotic plaque affects the cavernous and supraclinoid ICAs, bilater ally without resulting in significant stenosis. A small dilated in fundibulum projects from the right supraclinoid ICA on 3:173. The ACAs and MCAs are unremarkable. An anterior communicating artery is visualized. Right frontal lobe encephalomalacia is r eidentified. NECK: Conventional 3 vessel branching anatomy of the aortic arch is noted. Mild noncalcified atherosclerotic disease is seen in the aortic arch without significant stenosis. The great vessel o stia are patent. The innominate and bilateral subclavian arteries are unrema rkable. There is mild stenosis of the right comm on carotid artery origin due to noncalcified atherosclerotic plaque. Add itional mild stenosis is seen at the proximal right ICA also due to nonca lcified plaque. A small amount of calcified atherosclerotic plaque is seen at the proximal left ICA without resulting in significant stenosis. The l eft common carotid artery, carotid bulb, and cervical ICA are otherwise unr emarkable. The cervical vertebral arteries are unre markable. These originate from the subclavian arteries bilaterally and are essentially codominant. IMPRESSION No flow-limiting stenosis or aneurysm of the intracranial or cervical arteries. Specifically no large vessel o cclusion is seen. Mild atherosclerotic disease is seen in the carotid bifurcations bilaterally, right greater than left. Preliminary Report Dictated by Resident: Bob Andrade I, Harley Crandall MD., have reviewed t his study and agree with the above report. Performing Organization Address City/State/Zipcode Phone Number PACS/VR/DOSE CT STROKE ANGIOGRAM NECK (12/25/2019 6:12 AM CDT) Specimen Impressions Performed At PACS/VR/DOSE No flow-limiting stenosis or aneurysm of the intracranial or cervical arteries. Specifically no large vessel o cclusion is seen. Mild atherosclerotic disease is seen in the carotid bifurcations bilaterally, right greater than left. Preliminary Report Dictated by Resident: Bob Andrade I, Harley Crandall MD., have reviewed this study and agree with the above report. Narrative Performed At EXAM: CT STROKE ANGIOGRAM NECK, PACS/VR/DOSE EXAM: CT STROKE ANGIOGRAM HEAD COMPARISON: CT head 12/24/2019 HISTORY: New onset weakness TECHNIQUE: Axial CT imaging of the [place] an d from the skull base to the superior mediastinum was obtained during arterial phase after the intravenous administration of IV contrast. Coronal, sa gittal, and MIPS were constructed. FINDINGS: HEAD: The bilateral intracranial vertebral art eries are patent. The basilar artery is normal in caliber with short segment fenestr ation just above the junction of the vertebral arteries. The ACAs and waste recycler are unremarkable. Mild calcified and noncalcified atherosc lerotic plaque affects the cavernous and supraclinoid ICAs, bilater ally without resulting in significant stenosis. A small dilated infundibulum pro jects from the right supraclinoid ICA on 3:173. The ACAs and MCAs are unrem arkable. An anterior communicating artery is visualized. Right frontal lobe encephalomalacia is r eidentified. NECK: Conventional 3 vessel branching anatomy of the aortic arch is noted. Mild noncalcified atherosclerotic disease is seen in the aortic arch without significant stenosis. The great vessel ostia are paten t. The innominate and bilateral subclavian arteries are unrema rkable. There is mild stenosis of the right comm on carotid artery origin due to noncalcified atherosclerotic plaque. Add itional mild stenosis is seen at the proximal right ICA also due to noncalcified plaque . A small amount of calcified atherosclerotic plaque is seen at the proxim al left ICA without resulting in significant stenosis. The left common car otid artery, carotid bulb, and cervical ICA are otherwise unr emarkable. The cervical vertebral arteries are unremarkable. Thes e originate from the subclavian arteries bilaterally and are essentially codominant. Procedure Note [facility], [facility]iant Results Inft User - 2019 9:01 AM CDT EXAM: CT STROKE ANGIOGRAM NECK, EXAM: CT STROKE ANGIOGRAM HEAD COMPARISON: CT head 12/24/2019 HISTORY: New onset weakness TECHNIQUE: Axial CT imaging of the [place] and from the skull base to the superior mediastinum was obtained during arterial phase after the intravenous administration of IV contras t. Coronal, sagittal, and MIPS were constructed. FINDINGS: HEAD: The bilateral intracranial vertebral art eries are patent. The basilar artery is normal in caliber with short s egment fenestration just above the junction of the vertebral arteries. The ACAs and waste recycler are unremarkable. Mild calcified and noncalcified atherosc lerotic plaque affects the cavernous and supraclinoid ICAs, bilater ally without resulting in significant stenosis. A small dilated in fundibulum projects from the right supraclinoid ICA on 3:173. The ACAs and MCAs are unremarkable. An anterior communicating artery is visualized. Right frontal lobe encephalomalacia is r eidentified. NECK: Conventional 3 vessel branching anatomy of the aortic arch is noted. Mild noncalcified atherosclerotic disease is seen in the aortic arch without significant stenosis. The great vessel o stia are patent. The innominate and bilateral subclavian arteries are unrema rkable. There is mild stenosis of the right comm on carotid artery origin due to noncalcified atherosclerotic plaque. Add itional mild stenosis is seen at the proximal right ICA also due to nonca lcified plaque. A small amount of calcified atherosclerotic plaque is seen at the proximal left ICA without resulting in significant stenosis. The l eft common carotid artery, carotid bulb, and cervical ICA are otherwise unr emarkable. The cervical vertebral arteries are unre markable. These originate from the subclavian arteries bilaterally and are essentially codominant. IMPRESSION No flow-limiting stenosis or aneurysm of the intracranial or cervical arteries. Specifically no large vessel o cclusion is seen. Mild atherosclerotic disease is seen in the carotid bifurcations bilaterally, right greater than left. Preliminary Report Dictated by Resident: Harley Melendez MD., have reviewed t his study and agree with the above report. Performing Organization Address City/State/Zipcode Phone Number PACS/VR/DOSE Troponin I (12/24/2019 10:38 PM CDT) Pathologist Sig nature TROPONIN I <0.012 <=0.034 ng/mL [facility] Specimen Blood - VENOUS Narrative Performed At Equal or Less than 0.034 ng/ml---Normal [facility] Note: Cardiac troponin begins to rise [...] patient's use of biotin. Performing Organization Address [facility] Phone Number [facility] CLIA: [id number], [address] [place] THYROID STIMULATING HORMONE (12/24/2019 10:38 PM CDT) Pathologist Sig [employer] TSH 2.56 0.45 - 4.70 mIU/L [facility] Specimen Blood - VENOUS Performing Organization Address [facility] Phone Number [facility] CLIA: [id number], [address] GLYCOSYLATED HEMOGLOBIN (A1C) (12/24/2019 10:38 PM CDT) Pathologist [facility] HGB A1C 5.4 4.0 - 6.0 % NGSP [facility] Specimen Blood - VENOUS Narrative Performed At %A1C (NGSP) Interpretation (ADA) [facility] 4.8-5.6 Normal or (Non-Diabetic Ra nge) 5.7-6.4 Increased Risk (Pre-Diabet ic) >6.5 Diabetes Indicated Performing Organization Address [facility] Phone Number [facility] CLIA: [id number], [address] FASTING LIPID PANEL ([id number])(TOTAL CHOLESTEROL, TRIGLYCERIDES, HDL) (12/24/2019 10:38 PM CDT) Pathologist Sig [employer] CHOL 139 120 - 200 mg/dL [facility] HDL 33 (L) >50 mg/dL [facility] HDLC RATIO 4.2 <=4.5 [facility] TRIG 167 30 - 170 mg/dL [facility] LDL CHOL 73 <=160 mg/dL [facility] VLDL 33 5 - 60 mg/dL [facility] Specimen Blood - VENOUS Performing Organization Address [facility] Phone Number [facility] CLIA: [id number], [address] N-TERMINAL PRO-BNP (12/24/2019 10:38 PM CDT) Pathologist Sig nature NT-proBNP 198 (H) <=125 pg/mL [facility] Specimen Blood - VENOUS Narrative Performed At [facility] has been reported to cause a negative [facility] bias, interpret results relative to patient's use of biotin. Performing Organization Address [facility] Phone Number [facility] CLIA: [id number], [address] CBC WITH DIFFERENTIAL (12/24/2019 10:38 PM CDT) [facility] Sig nature WBC 11.03 4.30 - 11.10 [facility] 10*3/L HOSPITAL LAB[facility]ORY RBC 4.26 3.93 - 5.25 [facility] 10*6/L [facility] HGB 10.4 (L) 11.6 - 15.0 [facility] g/dL [facility] HCT 32.8 (L) 35.7 - 45.2 % [facility] MCV 77.0 (L) 80.6 - 95.5 fL [facility] MCH 24.4 (L) 25.9 - 32.8 pg [facility] MCHC 31.7 31.6 - 35.1 [facility] g/dL [facility] RDW-SD 52.4 (H) 39.0 - 49.9 fL [facility] RDW-CV 19.5 (H) 12.0 - 15.5 % [facility] PLT 113 (L) 166 - 358 [facility] 10*3/L [facility]ITAL [facility] MPV 9.4 (L) 9.5 - 12.9 fL [facility] NRBC/100 WBC 0.0 0.0 - 10.0 /100 [facility] WBCs [facility] NRBC x10^3 <0.01 10*3/L [facility] GRAN MAT (NEUT) % 58.2 % [facility] IMM GRAN % 0.20 % [facility] LYMPH % 32.6 % [facility] MONO % 6.9 % [facility] EOS % 1.5 % [facility] BASO % 0.6 % [facility] GRAN MAT x10^3(ANC) 6.42 1.88 - 7.09 [facility] 10*3/uL [facility]ITAL [facility] IMM GRAN x10^3 <0.03 0.00 - 0.06 [facility] 10*3/uL [facility] LYMPH x10^3 3.60 (H) 1.32 - 3.29 [facility] 10*3/uL [facility] MONO x10^3 0.76 0.33 - 0.92 [facility] 10*3/uL [facility] EOS x10^3 0.16 0.03 - 0.39 [facility] 10*3/uL [facility] BASO x10^3 0.07 0.01 - 0.07 [facility] 10*3/uL [facility] Specimen Blood - VENOUS Performing Organization Address City/State/Zipcode Phone Number [facility] CLIA: [id number], [address] [place], [place] [address] CORONAVIRUS COVID-19 TESTING (12/24/2019 10:38 PM CDT) Pathologist Sig nature SARS-CoV-2 Not Detected Not Detected [facility] Specimen Swab - NASOPHARYNGEAL SWAB Narrative Performed At [facility] COVID-19 Assay is an isothermal nucleic [facility] acid amplification test intended for the qualitative detection of nucleic acid from SARS-CoV-2 viral RNA in nasopharyngeal (SOURCING ANALYST) specimens. It is used under Emergency Use Authorization (EUA) by FDA. The limit of detection (LOD) of the assay is 125 Genome Equivalents/mL. A positive result is indicative of the presence of SARS-CoV-2 RNA. Clinical correlation with patient history and other diagnostic information is necessary to determine patient infection status. A negative (Not Detected) result does not preclude SARS-CoV-2 infection. Clinical correlation with patient history and other diagnostic information should be used in patient management decisions. Invalid: Please collect a new specimen for repeat patient testing if clinically indicated. Performing Organization Address City/[facility] Phone Number [facility] CLIA: [id number], [address] MAGNESIUM (12/24/2019 10:38 PM CDT) [facility] MAGNESIUM 1.8 1.7 - 2.4 mg/dL [facility] Specimen Blood - VENOUS Performing Organization Address [facility] Phone Number [facility] CLIA: [id number], [address] TROPONIN I (12/24/2019 10:38 PM CDT) [facility] TROPONIN I <0.012 <=0.034 ng/mL [facility] Specimen Blood - VENOUS Narrative Performed At Equal or Less than 0.034 ng/ml---Normal [facility] Note: Cardiac troponin begins to rise [...] patient's use of biotin. Performing Organization Address [facility] Phone Number [facility] CLIA: [id number], [address] COMP. METABOLIC PANEL ([id number]) (12/24/2019 10:38 PM CDT) [facility] NA 138 135 - 145 [facility] mmol/L [facility] K 3.8 3.5 - 5.0 [facility] mmol/L [facility] CL 100 98 - 108 mmol/L [facility] CO2 TOTAL 33 (H) 23 - 31 mmol/L [facility] AGAP 5 2 - 16 [facility] BUN 10 7 - 23 mg/dL [facility] GLUCOSE 101 70 - 110 mg/dL [facility] CREATININE 0.57 0.50 - 1.04 [facility] mg/dL [facility] TOTAL BILI 0.4 0.1 - 1.1 mg/dL [facility] CALCIUM 9.3 8.6 - 10.6 [facility] mg/dL [facility] T PROTEIN 7.3 6.3 - 8.2 g/dL [facility] ALBUMIN 3.9 3.5 - 5.0 g/dL [facility] ALK PHOS 238 (H) 34 - 122 U/L [facility] ALTv 109 (H) 5 - 35 U/L [facility] AST(SGOT) 47 (H) 13 - 40 U/L [facility] eGFR Calculation 110.1 mL/min/1.73m2 [facility] [place]) eGFR Calculation 133.5 mL/min/1.73m2 [facility] () [facility] Specimen Blood - VENOUS Narrative Performed At Association of Glomerular Filtration Rate (GFR) [facility] and Staging of Kidney Disease* [...] abnormalities in imaging tests). Performing Organization Address City/[facility] Phone Number [facility] CLIA: [id number], [address] [place] [address] URINALYSIS (12/24/2019 10:38 PM CDT) Pathologist Sig nature APPEARANCE Hazy (A) Clear [facility] COLOR Sarahi (A) Yellow [facility] PH 6.0 4.8 - 8.0 [facility] SP GRAVITY 1.028 1.003 - 1.030 [facility] GLU U QUAL Normal Normal [facility] BLOOD 2+ (A) Negative [facility] KETONES Negative Negative [facility] PROTEIN Negative Negative [facility] UROBILIN Normal Normal [facility] BILIRUBIN 4 mg/dL (A) Negative [facility] NITRITE Negative Negative [facility] LEUK HAI Negative Negative [facility] RBC/HPF 85 (H) 0 - 3 HPF [facility] WBC/HPF 7 (H) 0 - 5 HPF [facility] BACTERIA Many (A) Negative [facility] MUCOUS Moderate (A) Negative LPF [facility] SQ EPITH 12 HPF [facility] HYAL CAST 3 (H) <=2 LPF [facility] Specimen Urine - URINE, CLEAN CATCH Performing Organization Address [facility] Phone Number [facility] CLIA: [id number], [address] [place] [address] PROTHROMBIN TIME / INR (12/24/2019 10:38 PM CDT) PROTIME PATIENT 13.6 12.0 - 14.7 [facility] LABORATORY INR 1.1Comment: Normal [facility] INR <1.1; [facility] Therapeutic range LABORATORY 2.0 to 3.0 or 2.5 to 3.5, depending upon the indications. Specimen Blood - VENOUS Performing Organization Address City/[facility] Phone Number [facility] CLIA: [id number], [address] [place] [address] [address] [facility] [address] HEAD WO CONTRAST (12/24/2019 9:46 PM CDT) Specimen Impressions Performed At No acute findings. Chronic changes as di scussed in the body the PACS/VR/DOSE report. Narrative Performed At HISTORY:Neuro deficit(s), subacute PACS/VR/DOSE TECHNIQUE: Noncontrast head CT was perfo rmed. COMPARISON:10/09/2019. FINDINGS: Mild parenchymal volume loss is seen, mo re conspicuous in the frontal lobes. There is no hydrocephalus. Unchanged chronic moderate size infarct in the right frontal lobe and adjacent insula. There is no midline shift. The basal cis terns are preserved. No acute intracranial hemorrhage or mass effect i s seen. The extracranial tissues demonstrate no acute findings. Procedure Note [facility], Radiant Results Inft User - 2019 9:51 PM CDT HISTORY:Neuro deficit(s), subacute TECHNIQUE: Noncontrast head CT was perfo rmed. COMPARISON:10/09/2019. FINDINGS: Mild parenchymal volume loss is seen, mo re conspicuous in the frontal lobes. There is no hydrocephalus. Unchanged chronic moderate size infarct in the right frontal lobe and adjacent insula. There is no midline shift. The basal cis terns are preserved. No acute intracranial hemorrhage or mass effect i s seen. The extracranial tissues demonstrate no acute findings. IMPRESSION No acute findings. Chronic changes as di scussed in the body the report. Performing Organization Address City/State/Zipcode Phone Number PACS/VR/DOSE documented in this encounter Visit Diagnoses Diagnosis Weakness - Primary Other malaise and fatigue History of CVA (cerebrovascular accident ) Transient ischemic attack (TIA), and cer ebral infarction without residual deficits documented in this encounter Administered Medications Medication Order MAR Action Action Date Dose Rate Site apixaban (ELIQUIS) tablet 5 mg Given 12/25/2019 8:23 AM CDT 5 mg 5 mg, Oral, BID, First dose on 12/25/19 at 0800, Until Discontinued, Routine buPROPion XL (WELLBUTRIN XL) tablet 150 mg 150 mg, Oral, DAILY, First dose on Sat at 1245, Until Discontinued, Routine SERTraline (ZOLOFT) tablet 100 mg Given 12/25/2019 8:23 AM CDT 100 mg 100 mg, Oral, DAILY, First dose on 12/25/19 at 0900, Until Discontinued, Routine topiramate (TOPAMAX) tablet 50 mg Given 12/25/2019 8:23 AM CDT 50 mg 50 mg, Oral, BID, First dose on 12/25/19 at 0800, Until Discontinued, Routine, membership solicitor approving Restricted medication: JONATHON BURTON V Medication Order MAR Action Action Date Dose Rate Site iohexol (OMNIPAQUE 350 BULK-100 Given 12/25/2019 6:10 AM CDT 10 0 mL mL) injection 100 mL 100 mL, Intravenous, ONCE, 1 dose, 12/25/19 at 0615, Routine NaCl 0.9% (NS) bolus infusion 500 New Bag 12/25/2019 1:22 AM CDT 500 mL 999 mL/hr mL at 999 mL/hr, 500 mL, IV Infusion, ONCE, 1 dose, 12/25/19 at 0115, STAT documented in this encounter Insurance Payer Benefit Plan / Subscriber ID Effective Phone Address T e Group Dates KARMA PARADA xxxxxxxxx 2015-Benjy P [address] DA[address] [facility] [place] [phone] MANAGED MEDICAID [place], [place]ID [place] (Work) documented as of this encounter Advance Directives Name Relationship Healthcare Agent Communication Relationship Swapnil Whyte Spouse Primary healthcare agent
--- OUTSIDE RECORDS SUMMARY | 2020-01-20 14:01 | XMS REPORT ---
:1965 Author Organization eClinicalWorks Care Team Providers Name Role Phone [facility] Provider Role Unavailable Allergies, Adverse Reactions, Alerts Substance Reaction Event Type Toradol Info Not Available Drug Allergy Stadol Info Not Available Drug Allergy Lyrica Info Not Available Drug Allergy Ibuprofen Info Not Available Drug Allergy Divalproex Sodium Info Not Available Drug Allergy Problems Problem Type Condition Code Onset Dates Condition Statu s Assessment Leukocytosis, unspecified type D72.829 Active Assessment Adult BMI 40.0-44.9 kg/sq m Z68.41 Active Assessment Depression with anxiety F41.8 Acti ve Assessment Left hemiparesis G81.90 Active Assessment Obstructive sleep apnea G47.33 Acti ve Assessment Post traumatic stress disorder F43.10 Active Problem Antiphospholipid syndrome D68.61 Ac tive Assessment History of cerebrovascular accident I69.90 Active with current residual effects Problem Left hemiparesis G81.90 Active Assessment Hyperlipemia, mixed E78.2 Active Problem Migraine G43.909 Active Problem Peripheral vascular disease I73.9 Active Problem Gastro-esophageal reflux K21.9 Act jhony Problem S/P CABG x 1 Z95.1 Active Problem Chronic systolic heart failure I50.22 Active Assessment Chronic systolic heart failure I50.22 Active Assessment S/P CABG x 1 Z95.1 Active Problem Leukocytosis, unspecified type D72.829 Active Assessment Benign essential HTN I10 Active Problem Obesity E66.9 Active Problem Benign essential HTN I10 Active Problem Adult BMI 40.0-44.9 kg/sq m Z68.41 Active Problem Cough R05 Active Problem Post traumatic stress disorder F43.10 Active Problem Hyperlipemia, mixed E78.2 Active Problem History of cerebrovascular accident I69.90 Active with current residual effects Problem Depression with anxiety F41.8 Acti ve Problem Anticoagulated Z79.01 Active Problem Chronic back pain M54.9 Active Problem Obstructive sleep apnea G47.33 Acti ve Medications Medication Code Code Instructions Start End Status Dosage System Date Date Lasix NDC 34160970499 40 MG Orally Active 0.5 tab let Once a day Zoloft [facility] 84833650381 100 MG Orally Active 1 tabl et Once a day Promethazine [facility] 77649303920 25 MG Orally Active TA KE ONE HCl every 12 hrs TABLET BY PRN MOUTH EVERY 12 HOURS NEEDED FOR NAUSEA AND VOMITING Symbicort [facility] 77684443363 160-4.5 MCG/ACT Active 2 puffs Inhalation Twice a day Ambien [facility] 63560923380 10 MG Orally Active 1 table t Once a day at bedtime as needed Metoprolol [facility] 58471610636 50 MG Orally Active 1 ta blet Tartrate Twice a day with food Lipitor [facility] 89908886644 80 MG Orally Active 1 table t Once a day Abilify [facility] 56579665387 10 MG Orally Inactive 1 tabl et Once a day Wellbutrin [facility] 0 100 MG Orally Active 1 table t Twice a day Potassium [facility] 93742938627 20 MEQ Orally Active 1 ca psule Chloride Twice a day Aspir-81 [facility] 64654403284 81 MG Orally Active 1 tabl et Once a day Lisinopril [facility] 51977880974 10 MG Orally Inactive 1 t ablet Once a day Eliquis [facility] 84543287536 5 MG Orally Active as directed Results No Known Results Summary Purpose eClinicalWorks Submission
--- OUTSIDE RECORDS SUMMARY | 2020-01-20 14:01 | XMS REPORT | Summary of Care ---
:1965 Author Organization [facility] - [facility] Address [address] [place] [id number] Care Team Providers Name Role Phone James Burton Primary Care Provider Reason for Visit Reason Comments Transition Of Care Encounter Details Date Type Department Care Team Description 12/28/2019 Transition of Care [facility] [address] [address] Allergies Active Allergy Reactions Severity Noted Date Comments Prochlorperazine Edisylate Nausea and/or 08/21/2005 Vomiting Divalproex Sodium Anxiety 08/21/2005 Gabapentin Unknown - See 01/02/2008 Blurred vision comments Nsaids (Non-Steroidal Nausea and/or 06/15/2015 Anti-Inflammatory Drug) Vomiting Butorphanol Tartrate Rash 08/21/2005 Ketorolac Tromethamine Rash 08/21/2005 documented as of this encounter (statuses as of 12/28/2019) Medications Medication Sig Dispensed Refills Start Date End Date Status atorvastatin 80 mg Take 1 tablet by 30 tablet 3 09/03/2019 Active tabletIndications: mouth at bedtime. 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 pectoris, NSTEMI (non-ST elevated myocardial infarction) KCL 20 mEq Take 1 tablet by 30 tablet 2 11/07/2019 A ctive tabletIndications: mouth as needed Coronary artery (Recommend to take disease involving KCL if taking wales coronary lasix.) for up to artery of wales 30 doses. heart with angina pectoris, NSTEMI [...] as of this encounter (statuses as of 12/28/2019) Active Problems Problem Noted Date Weakness 12/25/2019 Pericardial effusion 10/25/2019 Arm DVT (deep venous thromboembolism), acute, left 04/2020 Chest pain 10/24/2019 NSTEMI (non-ST elevated myocardial infarction) 020 Left sided numbness 09/03/2019 S/P CABG (coronary artery bypass graft) 06/30/2019 Leukocytosis 06/16/2019 Tachycardia 06/15/2019 Coronary artery disease involving wales coronary herson ry of wales heart 06/08/2019 with angina pectoris Overview: Added automatically from request for ilan de la cruz [id number] Sepsis 05/03/2019 Obesity (BMI 30-39.9) 05/03/2019 Other [...] as of this encounter (statuses as of 12/28/2019) Immunizations Name Administration Dates Next Due Influenza [...] Cardiology Yancy Escobar MD [address] [place] [phone] Health Maintenance Due Date Last Done [...] of this encounter Implants Implanted Type Area Facility Manager Device Shelf Expiration Model / Identifier Date Serial / Lot Screw SCREW Right: Ankle Screw SCREW Left: Foot documented as of this encounter Results Not on filedocumented in this encounter Insurance Payer Benefit Plan / Subscriber ID Effective Phone Address T e Group Dates KARMA PARADA xxxxxxxxx 2015-Benjy [address] [facility] [place] [id number] [place]GED MEDICA[place] documented as of this encounter Advance Directives Name Relationship Healthcare Agent Communication Relationship Swapnil Whyte Spouse Primary healthcare agent
--- OUTSIDE RECORDS SUMMARY | 2020-01-20 14:02 | XMS REPORT | Summary of Care ---
:1965 Author Organization [facility] Address [address] [place] [id number] Care Team Providers Name Role Phone James Burton Pato Primary Care Provider Reason for Referral (Routine) Status Reason Specialty Diagnoses / Referred By Referred To Procedures Contact Contact New Request Diagnoses Coronary artery disease involving [place] coronary artery of [place] heart with angina pectoris Pericardial effusion Atypical chest pain S/P CABG (coronary artery bypass graft) Essential hypertension Chronic diastolic heart failure Escobar, Sendil Dyslipidemia History of CVA (cerebrovascular accident) BRO (dyspnea on exertion) MD Davis Procedures UNILATERAL VENOUS DUPLEX LOWER EXTREMITY BY VASCULAR LAB [address] [place] [phone] (Routine) Status Reason Specialty Diagnoses / Referred By Referred To Procedures Contact Contact New Request Cardiology Diagnoses Coronary artery disease involving [place] coronary artery of [place] heart with angina pectoris Pericardial effusion Atypical chest pain S/P CABG (coronary artery bypass graft) Essential hypertension Chronic diastolic heart failure Escobar, Sendil Dyslipidemia History of CVA (cerebrovascular accident) BRO (dyspnea on exertion) MD Davis Procedures ECHO ROUTINE W/DOPPLER COLOR Preferred Location: [facility] [address] [facility] [address] [place] [phone] Reason for Visit Reason Comments Follow-up Coronary Disease (Routine) Status Reason Specialty Diagnoses / Referred By Referred To Procedures Contact Contact New Request IM-CARDIOVASCULAR Diagnoses NSTEMI (non-ST elevated [facility] infarction) [facility] / Procedures Discharge Follow-Up: Specialty Service IM-CARDIOVASCULAR DISEASE; 4-6 Weeks [facility] [address] [place] [id number] Encounter Details Date Type Department Care Team Description 01/06/2020 Telemedicine Visit [facility] Ludwig Escobar Coronar y artery disease involving [place] coronary artery of [place] heart with angina pectoris (Primary Dx); Cardiology- MD Davis Pericardial effusion; [facility] Atypical chest pain; [address] [facility] 106 S/P CABG (coronary artery bypass graft); Drive, [address] [place], [place] Essential hypertension; [place] [address] Chronic diastolic heart failure; [id number] Dyslipidemia; [phone] History of CVA (cerebrovascular accident); (Fax) BRO (dyspnea on exertion) Allergies Active Allergy Reactions Severity Noted Date Comments Prochlorperazine Edisylate Nausea and/or 08/21/2005 Vomiting Divalproex Sodium Anxiety 08/21/2005 Gabapentin Unknown - See 01/02/2008 Blurred vision comments Nsaids (Non-Steroidal Nausea and/or 06/15/2015 Anti-Inflammatory Drug) Vomiting Butorphanol Tartrate Rash 08/21/2005 Ketorolac Tromethamine Rash 08/21/2005 documented as of this encounter (statuses as of 01/07/2020) Medications Medication Sig Dispensed Refills Start Date End Date Status atorvastatin 80 mg Take 1 tablet by 30 tablet 3 09/03/2019 Active tabletIndications: mouth at S/P CABG (coronary bedtime. artery bypass graft), Coronary artery disease involving [place] coronary artery of [place] heart with angina pectoris LORazepam 2 mg [...] Active tablet mouth 2 (two) times daily. colchicine 0.6 mg Take 1 capsule 60 capsule 0 11/07/2019 Active CapIndications: by mouth 2 (two) Pericardial times daily. effusion furosemide 40 mg Take 1 tablet by 30 tablet 2 11/07/2019 Active tabletIndications: mouth as needed Coronary artery (Daily PRN based disease involving on leg swelling [place] coronary and body weight) artery of [place] for up to 30 heart with angina doses. pectoris, NSTEMI (non-ST elevated myocardial infarction) KCL 20 mEq Take 1 tablet by 30 tablet 2 11/07/2019 A ctive tabletIndications: mouth as needed Coronary artery (Recommend to disease involving take KCL if [place] coronary taking lasix.) artery of [place] for up to 30 heart with angina doses. pectoris, NSTEMI (non-ST elevated myocardial infarction) metoprolol Take 1 tablet by 60 tablet 0 11/10/2019 A ctive tartrate 50 mg mouth 2 (two) tabletIndications: times daily. NSTEMI (non-ST elevated myocardial infarction), Bacteremia due to Enterobacter species apixaban 5 mg Take 1 tablet by 60 tablet 1 11/12/2019 Active tabletIndications: mouth 2 (two) deep vein times daily. thrombosis Indications: prevention deep vein thrombosis prevention metoprolol Take 1 tablet by 60 tablet 0 11/07/2019 D iscontinued tartrate 50 mg mouth 2 (two) 0 tabletIndications: times daily. NSTEMI (non-ST elevated myocardial infarction), Bacteremia due to Enterobacter species documented as of this encounter (statuses as of 01/07/2020) Active Problems Problem Noted Date Weakness 12/25/2019 Pericardial effusion 10/25/2019 Arm DVT (deep venous thromboembolism), acute, left 04/2020 Chest pain 10/24/2019 NSTEMI (non-ST elevated myocardial infarction) 020 Left sided numbness 09/03/2019 S/P CABG (coronary artery bypass graft) 06/30/2019 Leukocytosis 06/16/2019 Tachycardia 06/15/2019 Coronary artery disease involving [place] coronary herson ry of [place] heart 06/08/2019 with angina pectoris Overview: Added automatically from request for ilan de la cruz [id number] Sepsis 05/03/2019 Obesity (BMI 30-39.9) 05/03/2019 Other [...] as of this encounter (statuses as of 01/07/2020) Immunizations Name Administration Dates Next Due Influenza [...] encounter Progress Notes Ludwig Escobar MD - 01/06/2020 10:00 AM CDT [facility] Cardiology Consult Note Patient: Delilah Whyte Date of : 1965 Primary Care Physician: James Burton CHIEF COMPLAINT: Chief Complaint Patient presents with Follow-up Coronary Disease History of Present Illness: Delilah Whyte is a 54 year old female presents to tele visit clinic for follow up for CAD/CABG. History from patient herself. Verbal consent obtained from Delilah Whyte for telehealth services provided below. Communication with patient was conducted via Telephone. Attempted video call but unable to reach. Location of Patient: Home Location of Provider: Clinic Since the last OV, she reports having atypical chest pain, not exertional. No specific aggravating factors noted. BRO NYHA Class II stable with no worsening. Reports she haven't started colchicine yet. No history of exertional chest pain. No chest pain at rest. No PND or orthopnea. No pedal edema. No exertional palpitations or palpitations at rest. No syncopal attacks. Admitted 09/2019 for chest pain. Noted to have [...] of ? hemorraghic and started on colchicine. 06/2019: had CABG On 03.09.2019: noted to have CVA/slurred speech and left facial drop. Was sent to [facility]. On 11/2018: Admitted for new onset leg edema, dyspnea on exertion and orthopnea. She was in [facility] a few times for various issues but mainly GI virus and dehydration. Stated that she received a lot of fluids in the hospital. Before hospital discharge she developed some signs of overload. This has progressed since discharge. BNP is elevated. Rx for acute on chronic diastolic HF. On 12/2018: was admitted for hypotension/ISADORA and hyperkalemia: Resolved with med adjustments PMH morbid obesity, HTN, HLD, stroke, CAD and KRISTOPHER not on C-PAP. Previous Cardiac Studies: IMAGING - I personally [...] obstructive pulmonary disease) Coronary artery disease involving [place] coronary artery of [place] heart with angina pectoris 06/08/2019 Depression Encephalitis 2015 Essential hypertension, benign Former smoker History of CVA (cerebrovascular accident) left side numbness, L sided facial droop Hyperlipidemia Morbid obesity Posttraumatic stress disorder Right ovarian cyst Seizures 2014 encephalitis Unspecified migraine Past Surgical History: Procedure Laterality Date ANKLE ARTHRODESIS Right 1996 APPENDECTOMY CHOLECYSTECTOMY CORONARY ARTERY BYPASS GRAFT N/A 06/30/2019 Surgeon: Noah Bolton Jr., MD; Location: [facility] FOOT ORIF (SHX) Bilateral HYSTERECTOMY [...] Last attempt to quit: 2014 Years since quittin.3 Smokeless tobacco: Never Used Substance and Sexual Activity Alcohol use: No Alcohol/week: 0.0 standard drinks Drug use: No Sexual activity: Never Lifestyle Physical activity: Days per week: Not on file Minutes per session: Not on file Stress: Not on file Relationships Social connections: Talks on phone: Not on file Gets together: Not on file Attends denominational service: Not on file Active member of [...] on file Social History Narrative Lives in [place] with and Kids ALLERGIES Allergies Allergen Reactions [...] 01/02/2008 10.5 (H) WBC (10*3/L) Date Value 12/24/2019 11.03 NA Date Value 12/24/2019 138 mmol/L 01/05/2008 138 MMOL/L No results found for: PT PLT x10^3 (/CMM) Date Value 01/02/2008 413 (H) PLT (10*3/L) Date Value 12/24/2019 113 (L) K Date Value 12/24/2019 3.8 mmol/L 01/05/2008 3.6 MMOL/L INR (no units) Date Value 12/24/2019 1.1 HGB Date Value 12/24/2019 10.4 g/dL (L) 01/02/2008 14.2 G/DL BUN Date Value 12/24/2019 10 mg/dL 01/05/2008 9 MG/DL HCT (%) Date Value 12/24/2019 32.8 (L) 01/02/2008 42.0 CREATININE Date Value 12/24/2019 0.57 mg/dL 01/05/2008 0.58 MG/DL (L) LIPID PROFILE GLUCOSE Date Value 12/24/2019 101 mg/dL 01/05/2008 90 MG/DL CHOL Date Value 12/24/2019 139 mg/dL 01/05/2008 266 MG/DL (H) TSH LDL CHOL Date Value 12/24/2019 73 mg/dL 01/05/2008 190 MG/DL (H) TSH (mIU/L) Date Value 12/24/2019 2.56 CARDIAC ENZYMES HDL CHOL (MG/DL) Date Value 01/05/2008 49 HDL (mg/dL) Date Value 12/24/2019 33 (L) CK (U/L) Date Value 06/15/2019 29 (L) 08/21/2005 40 TRIG Date Value 12/24/2019 167 mg/dL 01/05/2008 133 MG/DL LFTs CK-MB (ng/mL) Date Value 08/21/2005 .8 AST(SGOT) (U/L) Date Value 12/24/2019 47 (H) TROPONIN I (ng/mL) Date Value 12/24/2019 <0.012 12/24/2019 <0.012 08/21/2005 0.03 ALT(SGPT) (U/L) Date Value 05/04/2019 29 ALTv (U/L) Date Value 12/24/2019 109 (H) No results found for: BNP LDL CHOL Date Value 12/24/2019 73 mg/dL 01/05/2008 190 MG/DL (H) Recent Labs 12/24/19 2238 TROPNI <0.012 | <0.012 NT-proBNP (pg/mL) Date Value 12/24/2019 198 (H) LDL CHOL Date Value 12/24/2019 73 mg/dL 01/05/2008 190 MG/DL (H) ASSESSMENT/PLAN 1. Coronary artery disease involving [place] coronary artery of [place] heart with angina pectoris CBC WITH DIFF COMP. METABOLIC PANEL (53364) CREATINE KINASE LIPID PANEL (74257)(TOTAL CHOLESTEROL, TRIGLYCERIDES, HDL) N-TERMINAL PRO-BNP ECHO ROUTINE W/DOPPLER COLOR Preferred Location: [facility] UNILATERAL VENOUS DUPLEX LOWER EXTREMITY BY VASCULAR LAB 2. Pericardial effusion CBC WITH DIFF COMP. METABOLIC PANEL (61508) CREATINE KINASE LIPID PANEL (33669)(TOTAL CHOLESTEROL, TRIGLYCERIDES, HDL) N-TERMINAL PRO-BNP ECHO ROUTINE W/DOPPLER COLOR Preferred Location: [facility] UNILATERAL VENOUS DUPLEX LOWER EXTREMITY BY VASCULAR LAB 3. Atypical chest pain CBC WITH DIFF COMP. METABOLIC PANEL (92957) CREATINE KINASE LIPID PANEL (95928)(TOTAL CHOLESTEROL, TRIGLYCERIDES, HDL) N-TERMINAL PRO-BNP ECHO ROUTINE W/DOPPLER COLOR Preferred Location: [facility] UNILATERAL VENOUS DUPLEX LOWER EXTREMITY BY VASCULAR LAB 4. S/P CABG (coronary artery bypass graft) CBC WITH DIFF COMP. METABOLIC PANEL (85132) CREATINE KINASE LIPID PANEL (62382)(TOTAL CHOLESTEROL, TRIGLYCERIDES, HDL) N-TERMINAL PRO-BNP ECHO ROUTINE W/DOPPLER COLOR Preferred Location: [facility] UNILATERAL VENOUS DUPLEX LOWER EXTREMITY BY VASCULAR LAB 5. Essential hypertension CBC WITH DIFF COMP. METABOLIC PANEL (87287) CREATINE KINASE LIPID PANEL (31395)(TOTAL CHOLESTEROL, TRIGLYCERIDES, HDL) N-TERMINAL PRO-BNP ECHO ROUTINE W/DOPPLER COLOR Preferred Location: [facility] UNILATERAL VENOUS DUPLEX LOWER EXTREMITY BY VASCULAR LAB 6. Chronic diastolic heart failure CBC WITH DIFF COMP. METABOLIC PANEL (11743) CREATINE KINASE LIPID PANEL (90256)(TOTAL CHOLESTEROL, TRIGLYCERIDES, HDL) N-TERMINAL PRO-BNP ECHO ROUTINE W/DOPPLER COLOR Preferred Location: [facility] UNILATERAL VENOUS DUPLEX LOWER EXTREMITY BY VASCULAR LAB 7. Dyslipidemia CBC WITH DIFF COMP. METABOLIC PANEL (17383) CREATINE KINASE LIPID PANEL (66473)(TOTAL CHOLESTEROL, TRIGLYCERIDES, HDL) N-TERMINAL PRO-BNP ECHO ROUTINE W/DOPPLER COLOR Preferred Location: [facility] UNILATERAL VENOUS DUPLEX LOWER EXTREMITY BY VASCULAR LAB 8. History of CVA (cerebrovascular accident) CBC WITH DIFF COMP. METABOLIC PANEL (88934) CREATINE KINASE LIPID PANEL (56511)(TOTAL CHOLESTEROL, TRIGLYCERIDES, HDL) N-TERMINAL PRO-BNP ECHO ROUTINE W/DOPPLER COLOR Preferred Location: [facility] UNILATERAL VENOUS DUPLEX LOWER EXTREMITY BY VASCULAR LAB 9. BRO (dyspnea on exertion) CBC WITH DIFF COMP. METABOLIC PANEL (24514) CREATINE KINASE LIPID PANEL (80754)(TOTAL CHOLESTEROL, TRIGLYCERIDES, HDL) N-TERMINAL PRO-BNP ECHO ROUTINE W/DOPPLER COLOR Preferred Location: [facility] UNILATERAL VENOUS DUPLEX LOWER EXTREMITY BY VASCULAR LAB Atypical chest pain/BRO NYHA Class II: In the setting of pericardial effusion: Recommend Rpt Echo Pericardial effusion: Small Possible hemorraghic by CT Off ASA 81 mg for now. Only on Eliquis 5 mg BiD. Based on the echo, will need to reassess regarding effusion. CAD s/p CABG 06/2019: On Lopresor 50 mg BiD/lipitor 80 mg daily/SL nitro PRN Off ASA 81 mg temp for now secondary to Small Possible hemorraghic by CT in pericardial effusion SL nitro PRN DVT LUE 10/15/2019: On Eliquis 5 BiD Plan for rpt venous USG. She hasn't followed up with Dr Gardiner (coil former) yet. She has Thrombocytopenia: Rpt CBC. Chronic HFpEF: Likely due to morbid obesity, underlying KRISTOPHER and maybe hypoventilation syndrome. Lasix 40/KCL 20 PRN Q2days PRN based on weight. Fluid restriction/salt restriction [...] Continue ASA/lipitor. Follow up in 6-8 weeks. Labs ordered. Orders Placed This Encounter Procedures CBC WITH DIFF COMP. METABOLIC PANEL (41740) CREATINE KINASE LIPID PANEL (97395)(TOTAL CHOLESTEROL, TRIGLYCERIDES, HDL) N-TERMINAL PRO-BNP ECHO ROUTINE W/DOPPLER COLOR Preferred Location: [facility] Requested Prescriptions No prescriptions requested or ordered in this encounter I spent at least 15 mintues total time with the patient over [...] in the answers given. We reviewed the [place] [employer] recommendations for reduction of overall [...] feel free to call our office at [phone]. I would be happy to be of further assistance for Delilah Whyte wellbeing. Rafy Escobar MD [employer] Paste Mixer Operator, Division of Cardiology [facility] documented in this encounter Plan of Treatment Name Type Priority Associated Diagnoses Order S chedule CBC WITH DIFF LAB Routine Coronary artery disease 1 O ccurrences starting involving [place] 01/07/2020 until coronary artery of 1 [place] heart with angina pectoris Pericardial effu matthew Atypical chest p ain S/P CABG (coronary artery bypass gr aft) Essential hypert ension Chronic diastolic heart failure Dyslipidemia History of CVA (cerebrovascular accident) BRO (dyspnea on exertion) COMP. METABOLIC PANEL LAB Routine Coronary artery dis ease 1 Occurrences starting (85443) involving [place] 01/07/2020 until coronary artery of 1 [place] heart with angina pectoris Pericardial effu matthew Atypical chest p ain S/P CABG (coronary artery bypass gr aft) Essential hypert ension Chronic diastolic heart failure Dyslipidemia History of CVA (cerebrovascular accident) BRO (dyspnea on exertion) CREATINE KINASE LAB Routine Coronary artery disease E xpected: 01/07/2020, involving [place] Expires: coronary artery of [place] heart with angina pectoris Pericardial effu matthew Atypical chest p ain S/P CABG (coronary artery bypass gr aft) Essential hypert ension Chronic diastolic heart failure Dyslipidemia History of CVA (cerebrovascular accident) BRO (dyspnea on exertion) LIPID PANEL LAB Routine Coronary artery disease 1 Oc currences starting (82692)(TOTAL involving [place] 01/07/2020 until CHOLESTEROL, coronary artery of 1 TRIGLYCERIDES, HDL) [place] heart with ang aissatou pectoris Pericardial effu matthew Atypical chest p ain S/P CABG (coronary artery bypass gr aft) Essential hypert ension Chronic diastolic heart failure Dyslipidemia History of CVA (cerebrovascular accident) BRO (dyspnea on exertion) N-TERMINAL PRO-BNP LAB Routine Coronary artery diseas e 1 Occurrences starting involving [place] 01/07/2020 until coronary artery of 1 [place] heart with angina pectoris Pericardial effu matthew Atypical chest p ain S/P CABG (coronary artery bypass gr aft) Essential hypert ension Chronic diastolic heart failure Dyslipidemia History of CVA (cerebrovascular accident) BRO (dyspnea on exertion) Health Maintenance Due Date Last Done Comments [...] of this encounter Implants Implanted Type Area Tank Tender Device Shelf Expiration Model / Identifier Date Serial / Lot Screw SCREW Right: Ankle Screw SCREW Left: Foot documented as of this encounter Results Not on filedocumented in this encounter Visit Diagnoses Diagnosis Coronary artery disease involving [place] coronary artery of [place] heart with angina pectoris - Primary Pericardial effusion Unspecified disease of pericardium Atypical chest pain Other chest pain S/P CABG (coronary artery bypass graft) Postsurgical aortocoronary bypass status Essential hypertension Unspecified essential hypertension Chronic diastolic heart failure Dyslipidemia Other and unspecified hyperlipidemia History of CVA (cerebrovascular accident ) Transient ischemic attack (TIA), and cer ebral infarction without residual deficits BRO (dyspnea on exertion) Other dyspnea and respiratory abnormalit y documented in this encounter Insurance Payer Benefit Plan / Subscriber ID Effective Phone Address T [facility] Group Dates KARMA PARADA xxxxxxxxx 2015-[address]se [address] [place] [id number] [place]NAGED MEDICAID [place], [place] (Work) documented as of this encounter Advance Directives Name Relationship Healthcare Agent Communication Relationship Swapnil Whyte Spouse Primary healthcare agent "
--- OUTSIDE RECORDS SUMMARY | 2020-01-20 14:02 | XMS REPORT ---
:1965 Author Organization [employer] Care Team Providers Name Role Phone James Burton Provider Role Unavailable Allergies No Known Allergies Problems Problem Type Condition Code Onset Dates Condition Statu s Problem Migraine G43.909 Active Problem Peripheral vascular disease I73.9 Active Problem Gastro-esophageal reflux K21.9 Act jhony Problem S/P CABG x 1 Z95.1 Active Assessment Left hemiparesis G81.90 Active Problem Chronic systolic heart failure I50.22 Active Assessment History of cerebrovascular accident I69.90 Active with current residual effects Problem Leukocytosis, unspecified type D72.829 Active Problem Obesity E66.9 Active Problem Benign [...] Problem Chronic back pain M54.9 Active Problem Antiphospholipid syndrome D68.61 Ac tive Problem Obstructive sleep apnea G47.33 Acti ve Problem Left hemiparesis G81.90 Active Medications No Known Medications Results No Known Results Summary Purpose [employer] Submission
[2020-01-20] MEDS ORDERED: NA CHLORIDE 0.9% 500 ML ONE (15:03)
[2020-01-20] MEDS ORDERED: FENTANYL CITR 100 MCG/2 ML ONE (15:03)
[2020-01-20 15:09] LABS: Protime INR 1.13
[2020-01-20 15:26] LABS: Absolute Lymphocytes (CBC) 1.7 K/uL (0.7-4.9); Basophils % 0.7 % (0-1.3); Hematocrit 35.5 % (36.0-45.0); Lymphocytes % 13.8 % (15.3-44.8); MPV 7.1 fL (7.6-11.3); RBC Red Blood Cell Count 4.57 M/uL (3.86-4.86)
[2020-01-20 15:42] LABS: Albumin 3.3 g/dL (3.4-5.0); Bilirubin Direct 0.4 mg/dL (0-0.2); Protein, Total 7.4 g/dL (6.4-8.2); Troponin (Emerg Dept Use Only) 0.11 ng/mL (0.0-0.045)
[2020-01-20 15:44] LABS: Potassium 2.7 mmol/L (3.5-5.1)
--- NOTE | 2020-01-20 15:51 | RAD REPORT ---
EXAM DESCRIPTION: RAD - Chest Single View - 01/20/2020 3:05 pm CLINICAL HISTORY: Chest pain;Dyspnea COMPARISON: Portable November 2018 TECHNIQUE: AP portable chest image was obtained 01/20/2020 3:05 pm . FINDINGS: Lungs are clear. Heart and vasculature are normal. No measurable pleural effusion and no p neumothorax. No acute bony abnormality seen. Sternotomy wires have been placed since the prior study. No acute aortic findings suspected. IMPRESSION: No acute cardiopulmonary process. No suspicious interval change.
[2020-01-20] MEDS ORDERED: POTASSIUM CL SA 10 MEQ TAB PO ONE ×2 (16:29→22:02)
--- NOTE | 2020-01-20 16:37 | ER ---
Nurse's Notes [facility] Name: Kathy Whyte Age: 54 yrs Sex: Female : 1965 Arrival Date: 01/20/2020 Time: 13:36 Bed 2 Private MD: Diagnosis: Chest pain, unspecified;NSTEMI Presentation: 01/19 13:30 Chief complaint: EMS states: 54 yr. old c/o chest pain and SOB that started 0800 this rb1 morning. Had Bypass surgery in the June. History of stroke in 2011, has slurred speech and facial droop due to that CVA and CHF. BGL 120, BP 139/89, P 70, 98% 3 L NC, R 18. Sinus Rhythm with Right BBB on 12-Lead. Administered Aspirin 324 mg x 1. Coronavirus screen: Patient denies a cough. Patient reports shortness of breath or difficulty breathing. Patient denies measured and/or subjective temperature greater than 100.4F prior to today's visit. Patient denies travel on a cruise ship or to a country the [facility] currently lists as an affected area. Patient denies contact with known and/or suspected case of COVID-19. Ebola Screen: Patient denies travel to an Ebola-affected area in the 21 days before illness onset. Initial Sepsis Screen: Does the patient meet any 2 criteria? No. Patient's initial sepsis screen is negative. Does the patient have a suspected source of infection? No. Patient's initial sepsis screen is negative. Risk Assessment: Do you want to hurt yourself or someone else? Patient reports no desire to harm self or others. Onset of symptoms was January 20, 2020 at 08:00. 13:30 Method Of Arrival: EMS: [facility] rb1 13:30 Acuity: ARI 3 rb1 Triage Assessment: 13:30 General: Appears in no apparent distress. comfortable, Behavior is calm, cooperative, rb1 Denies fever. Pain: Complains of pain in chest Pain radiates to left arm Pain currently is 7 out of 10 on a pain scale. Pain began 0800 today. Neuro: Level of Consciousness is awake, alert, obeys commands, Oriented to person, place, time, situation. Neuro: Reports Slurred speech and facial droop are from a previous stroke that occurred in 2011. Cardiovascular: Reports shortness of breath, Capillary refill < 3 seconds. Respiratory: Reports shortness of breath at rest Airway is patent Respiratory effort is even, unlabored, Respiratory pattern is regular, symmetrical, 100 % on 3 L NC Onset: The symptoms/episode began/occurred this morning, the patient has mild shortness of breath. GI: No signs and/or symptoms were reported involving the gastrointestinal system. : No signs and/or symptoms were reported regarding the genitourinary system. Derm: Skin is pink, warm \T\ dry. Musculoskeletal: Reports weakness in left hand Pt. has weakness in the left hand due to previous stroke in 2012. 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 - Social history:: Smoking status: Patient/guardian denies using. Screenin:30 Abuse screen: Denies threats or abuse. Nutritional screening: No deficits noted. rb1 Tuberculosis screening: No symptoms or risk factors identified. Fall Risk None identified. Assessment: 13:30 General: See triage assessment. rb1 14:49 Cardiovascular: Rhythm is sinus bradycardia. Respiratory: Airway is patent Respiratory bp effort is even, unlabored, Breath sounds are coarse bilaterally. 15:48 Reassessment: Patient appears in no apparent distress at this time. Patient and/or rb1 family updated on plan of care and expected duration. Pain level reassessed. Patient is alert, oriented x 3, equal unlabored respirations, skin warm/dry/pink. 16:22 Reassessment: Patient appears in no apparent distress at this time. No changes from rb1 previously documented assessment. 17:20 Reassessment: Patient appears in no apparent distress at this time. Patient and/or rb1 family updated on plan of care and expected duration. Pain level reassessed. Patient is alert, oriented x 3, equal unlabored respirations, skin warm/dry/pink. 18:20 Reassessment: Patient appears in no apparent distress at this time. No changes from rb1 previously documented assessment. Vital Signs: 13:30 BP 122 / 74; Pulse 69; Resp 20; Temp 97.6; Pulse Ox 100% on R/A; Weight 116.57 kg (R); rb1 Height 5 ft. 3 in. (160.02 cm) (R); Pain 7/10; 14:30 BP 118 / 66; Pulse 58; Resp 14; Pulse Ox 100% ; bp 15:27 BP 128 / 84; Pulse 57; Resp 16; Pulse Ox 100% ; rb1 16:26 BP 112 / 59; Pulse 54; Resp 16; Pulse Ox 100% ; rb1 17:26 BP 133 / 66; Pulse 52; Resp 15; Pulse Ox 100% ; rb1 18:25 BP 132 / 73; Pulse 51; Resp 12; Pulse Ox 100% ; rb1 19:37 BP 107 / 75; Pulse 55; Resp 16 S; Pulse Ox 100% on R/A; jd3 13:30 Body Mass Index 45.53 (116.57 kg, 160.02 cm) rb1 ED Course: 13:30 Arm band placed on right wrist. rb1 13:30 Patient has correct armband on for positive identification. Bed in low position. Call rb1 light in reach. Side rails up X2. auto porter on. Pulse ox on. NIBP on. Warm blanket given. 13:36 Patient arrived in ED. rb1 13:41 David Smyth MD is Attending Physician. kdr 13:50 Triage completed. rb1 13:59 Chelle Read, RN is Primary Nurse. rb1 14:45 Inserted LEFT 20 GAUGE 8CM MIDLINE. bp 15:05 XRAY Chest (1 view) In Process Unspecified. EDMS 15:25 Initial lab(s) drawn, by ED staff, sent to lab. EKG done, by ED staff, reviewed by mh5 David Smyth MD. 16:35 Dion Michel DO is Hospitalizing Provider. kdr 19:45 No provider procedures requiring assistance completed. Patient admitted, IV remains in jd3 place. Administered Medications: 15:08 Drug: NS 0.9% 500 ml Route: IV; Rate: bolus; Site: left upper arm; bp 15:48 Follow up: IV Status: Completed infusion rb1 15:09 Drug: fentaNYL (PF) 25 mcg Route: IVP; Site: left upper arm; bp 15:27 Follow up: Response: No adverse reaction; Pain is decreased rb1 16:24 Drug: Potassium Chloride 40 mEq Route: PO; rb1 17:00 Follow up: Response: No adverse reaction rb1 17:08 Drug: Zofran (Ondansetron) 4 mg Route: IVP; Site: left upper arm; rb1 17:23 Follow up: Response: No adverse reaction; Nausea is decreased rb1 18:50 Drug: morphine 4 mg Route: IVP; Site: left upper arm; rb1 19:50 Follow up: Response: No adverse reaction; RASS: Alert and Calm (0) isis Outcome: 16:36 Decision to Hospitalize by Provider. kdr 19:45 Admitted to Med/surg accompanied by tech, via stretcher, room 404, with chart, Report jd3 called to Goldy CERDA 19:45 Condition: stable 19:45 Instructed on the need for admit, Demonstrated understanding of instructions. 20:27 Patient left the ED. rr5 Signatures: Dispatcher [employer] EDMS David Smyth MD MD kdr Barber, Rebecca, RN RN rb1 No Narvaez [facility] Michael Trujillo RN RN jBob Juan RN RN bp Roque, Raymond, RN RN rr5
--- NOTE | 2020-01-20 16:38 | EDPHYS ---
Physician Documentation [facility] Name: Kathy Whyte Age: 54 yrs Sex: Female : 1965 Arrival Date: 01/20/2020 Time: 13:36 Bed 2 Private MD: ED Physician David Smyth HPI: 01/19 19:23 This 54 yrs old Female presents to ER via EMS with complaints of Shortness Of kdr Breath, Chest Pain. 19:24 The patient or guardian reports chest pain that is located primarily in the substernal kdr area, anterior chest wall. Onset: suddenly, this morning. 19:24 Onset: at 08:00. The pain does not radiate. Associated signs and symptoms: Pertinent kdr positives: diaphoresis, nausea, shortness of breath. The chest pain is described as aching, dull, a pressure. Duration: The patient or guardian reports multiple episodes, that are intermittent, that wax and wane, with no pattern. Modifying factors: The symptoms are alleviated by nothing. the symptoms are aggravated by activity. Severity of pain: At its worst the pain was mild in the emergency department the pain is unchanged. The patient has experienced similar episodes in the past, a few times. The patient has not recently seen a physician. 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 - Social history:: Smoking status: Patient/guardian denies using. ROS: 19:24 Constitutional: Negative for fever, chills, and weight loss, Eyes: Negative for injury, kdr pain, redness, and discharge, ENT: Negative for injury, pain, and discharge, Neck: Negative for injury, pain, and swelling, Abdomen/GI: Negative for abdominal pain, nausea, vomiting, diarrhea, and constipation, Back: Negative for injury and pain, : Negative for injury, bleeding, discharge, and swelling, MS/Extremity: Negative for injury and deformity, Skin: Negative for injury, rash, and discoloration, Neuro: Negative for headache, weakness, numbness, tingling, and seizure activity. Psych: Negative for depression, anxiety, suicide ideation, homicidal ideation, and hallucinations, Allergy/Immunology: Negative for hives, rash, and allergies, Endocrine: Negative for neck swelling, polydipsia, polyuria, polyphagia, and marked weight changes, Hematologic/Lymphatic: Negative for swollen nodes, abnormal bleeding, and unusual bruising. 19:24 Cardiovascular: Positive for chest pain, Negative for edema, orthopnea. Exam: 19:24 Constitutional: This is a well developed, well nourished patient who is awake, alert, kdr and in no acute distress. Head/Face: Normocephalic, atraumatic. Neck: Trachea midline, no thyromegaly or masses palpated, and no cervical lymphadenopathy. Supple, full range of motion without nuchal rigidity, or vertebral point tenderness. No Meningismus. Chest/axilla: Normal chest wall appearance and motion. Nontender with no deformity. No lesions are appreciated. Cardiovascular: Regular rate and rhythm with a normal S1 and S2. No gallops, murmurs, or rubs. Normal PMI, no JVD. No pulse deficits. Respiratory: Lungs have equal breath sounds bilaterally, clear to auscultation and percussion. No rales, rhonchi or wheezes noted. No increased work of breathing, no retractions or nasal flaring. Abdomen/GI: Soft, non-tender, with normal bowel sounds. No distension or tympany. No guarding or rebound. No evidence of tenderness throughout. Back: No spinal tenderness. No costovertebral tenderness. Full range of motion. Skin: Warm, dry with normal turgor. Normal color with no rashes, no lesions, and no evidence of cellulitis. MS/ Extremity: Pulses equal, no cyanosis. Neurovascular intact. Full, normal range of motion. Neuro: Awake and alert, GCS 15, oriented to person, place, time, and situation. Cranial nerves II-XII grossly intact. Motor strength 5/5 in all extremities. Sensory grossly intact. Cerebellar exam normal. Normal gait. Psych: Awake, alert, with orientation to person, place and time. Behavior, mood, and affect are within normal limits. Vital Signs: 13:30 BP 122 / 74; Pulse 69; Resp 20; Temp 97.6; Pulse Ox 100% on R/A; Weight 116.57 kg (R); rb1 Height 5 ft. 3 in. (160.02 cm) (R); Pain 7/10; 14:30 BP 118 / 66; Pulse 58; Resp 14; Pulse Ox 100% ; bp 15:27 BP 128 / 84; Pulse 57; Resp 16; Pulse Ox 100% ; rb1 16:26 BP 112 / 59; Pulse 54; Resp 16; Pulse Ox 100% ; rb1 17:26 BP 133 / 66; Pulse 52; Resp 15; Pulse Ox 100% ; rb1 18:25 BP 132 / 73; Pulse 51; Resp 12; Pulse Ox 100% ; rb1 19:37 BP 107 / 75; Pulse 55; Resp 16 S; Pulse Ox 100% on R/A; jd3 13:30 Body Mass Index 45.53 (116.57 kg, 160.02 cm) rb1 MDM: 16:36 Patient medically screened. kdr 19:24 Data reviewed: vital signs, nurses notes, lab test result(s), EKG, radiologic studies. kdr 01/19 13:50 Order name: Basic Metabolic Panel; Complete Time: 16:32 kdr 01/19 13:50 Order name: CBC with Diff kdr 01/19 13:50 Order name: LFT's; Complete Time: 16:32 kdr 01/19 13:50 Order name: Magnesium; Complete Time: 16:32 kdr 01/19 13:50 Order name: NT PRO-BNP; Complete Time: 16:32 kdr 01/19 13:50 Order name: PT-INR; Complete Time: 16:32 kdr 01/19 13:50 Order name: Troponin (emerg Dept Use Only); Complete Time: 16:32 kdr /04 13:50 Order name: XRAY Chest (1 view); Complete Time: 16:32 kdr /04 20:26 Order name: CBC Smear Scan EDMS 01/19 13:50 Order name: EKG; Complete Time: 13:51 kdr 04 13:50 Order name: Cardiac monitoring; Complete Time: 14:26 kdr /04 13:50 Order name: EKG - Nurse/Tech; Complete Time: 14:47 kdr 06/ 13:50 Order name: IV Saline Lock; Complete Time: 14:47 kdr 06/04 13:50 Order name: Labs collected and sent; Complete Time: 14:47 [facility] 01/19 13:50 Order name: O2 Per Protocol; Complete Time: 14:26 [facility] 01/19 13:50 Order name: O2 Sat Monitoring; Complete Time: 14:26 [facility] Administered Medications: 15:08 Drug: NS 0.9% 500 ml Route: IV; Rate: bolus; Site: left upper arm; bp 15:48 Follow up: IV Status: Completed infusion rb1 15:09 Drug: fentaNYL (PF) 25 mcg Route: IVP; Site: left upper arm; bp 15:27 Follow up: Response: No adverse reaction; Pain is decreased rb1 16:24 Drug: Potassium Chloride 40 mEq Route: PO; rb1 17:00 Follow up: Response: No adverse reaction rb1 17:08 Drug: Zofran (Ondansetron) 4 mg Route: IVP; Site: left upper arm; rb1 17:23 Follow up: Response: No adverse reaction; Nausea is decreased rb1 18:50 Drug: morphine 4 mg Route: IVP; Site: left upper arm; rb1 19:50 Follow up: Response: No adverse reaction; RASS: Alert and Calm (0) jd3 Disposition: 01/20/20 16:36 Hospitalization ordered by Dion Michel for Observation. Preliminary diagnosis are Chest pain, unspecified, NSTEMI. - Bed requested for Telemetry/MedSurg (observation). - Status is Observation. rr5 - Condition is Fair. - Problem is new. - Symptoms have improved. Signatures: Dispatcher [employer] EDSD January Vivas RN RN dw David Smyth MD MD [facility] Chelle Read, RN RN rb1 Bob Sow RN RN bp Berhane Carpenter, RN RN rr5 Michael Trujillo RN jd3 Corrections: (The following items were deleted from the chart) 18:35 16:36 Hospitalization Ordered by Dion Michel DO for Observation. Preliminary diagnosis is Chest pain, unspecified; NSTEMI. Bed requested for Telemetry/MedSurg (observation). Status is Observation. Condition is Fair. Problem is new. Symptoms have improved. [facility] 20:27 18:35 01/20/2020 16:36 Hospitalization Ordered by Dion Michel DO for Observation. rr5 Preliminary diagnosis is Chest pain, unspecified; NSTEMI. Bed requested for Telemetry/MedSurg (observation). Status is Observation. Condition is Fair. Problem is new. Symptoms have improved. dw
[2020-01-20] MEDS ORDERED: ONDANSETRON 4 MG/2 ML VIAL ONE ×2 (17:13→18:47)
--- NOTE | 2020-01-20 17:14 | P.HP ---
Certification for Inpatient Patient admitted to: Observation With expected LOS: <2 Midnights Patient will require the following post-hospital care: None Practitioner: I am a practitioner with admitting privileges, knowledge of patient current condition, hospital course, and medical plan of care. Services: Services provided to patient in accordance with Admission requirements found in Title 42 Section 412.3 of the Code of Federal Regulations Patient History Date of Service: 01/20/20 Primary Care Provider: Micheal Reason for admission: Chest pain with elevated troponin History of Present Illness: 54-year-old female with history of hypertension, migraines, hyperlipidemia, CVA/TIA, depression, CAD, anti phospholipid syndrome on chronic anticoagulation therapy, chronic pain presented to the emergency department with the complaint of chest pain and shortness of breath which has been going on for over week but much worse since last night. Patient reports that she took 1 of her nitroglycerin at home but it did not relieve her pain. Patient reports that she had bypass surgery and June of last year and also was admitted and September of this year for chest pain. Patient reports that she received an echocardiogram at another facility and September of this year. During her evaluation in the emergency department patient was found to have elevated troponin at 0.11. At this time. ED provider requested patient admitted to hospital service. When I saw the patient in the emergency department she appeared stable, reports that she is not currently having chest pain. Vital signs within normal limits. Patient will be admitted for further evaluation management in concordance with cardiology. Allergies butorphanol tartrate [From Stadol] Allergy (Intermediate, Verified 12/06/15 00:35) angry gabapentin [From Neurontin] Allergy (Intermediate, Verified 12/06/15 00:35) Blurred vision prochlorperazine [Prochlorperazine] Allergy (Mild, Verified 12/06/15 00:35) Rash morphine Allergy (Verified 12/06/15 00:35) Unknown prochlorperazine edisylate [From Compazine] Allergy (Verified 12/06/15 00:35) Unknown ketorolac tromethamine [From Toradol] Adverse Reaction (Intermediate, Verified 12/06/15 00:35) anxiety prochlorperazine maleate [From Compazine] Adverse Reaction (Intermediate, Verified 12/06/15 00:35) Hives NSAIDS (Non-Steroidal Anti-Inflamma Adverse Reaction (Mild, Verified 12/06/15 00:35) Nausea/Vomiting NSAIDS Allergy (Uncoded 12/06/15 00:35) Unknown Home medications list reviewed: Yes Home Medications: Sertraline [Zoloft*] 100 mg PO BID 05/25/16 Atorvastatin Calcium [Lipitor] 80 mg PO BEDTIME 12/01/18 Risperidone [Risperdal] 2 mg PO BID 12/01/18 Topiramate [Topamax*] 50 mg PO BID 12/01/18 buPROPion HCl [Wellbutrin Sr] 200 mg PO BID 12/01/18 Budesonide/Formoterol Fumarate [Symbicort 160-4.5 Mcg Inhaler] 2 puff IH BID 12/02/18 Loperamide [Imodium*] 2 mg PO Q4H PRN #30 cap 12/03/18 Albuterol Sulfate [Proair Hfa] 2 puff IH PRN PRN 12/04/18 Methocarbamol 750 mg PO BID 12/04/18 Triazolam 2 tab PO BEDTIME 12/04/18 carvediloL [Carvedilol] 12.5 mg PO BID 12/04/18 Furosemide [Lasix] 20 mg PO DAILY #30 tablet 12/05/18 Potassium Chloride 8 meq PO DAILY #30 tablet.er 12/05/18 lisinopriL [Prinivil*] 10 mg PO DAILY #30 tab 12/05/18 - Past Medical/Surgical History Has patient received pneumonia vaccine in the past: No Diabetic: No -: HTN -: Hyperlipidemia -: History of CVA/TIA -: Antiphospholipid syndrome -: Chronic anticoagulation -: Depression -: Tobacco abuse -: Chronic pain seen by Pain management -: Migraines, complex/complicated/mixed, acute headache -: GERD -: Migraines, complex/complicated/mixed -: acute headache -: Choleycystectomy -: Appendectomy -: Hysterectomy -: (R) ankle/foot sx -: bilateral ft surgery-with plates and screws -: tonsilectomy -: November 2013 destinee cath placement, removed Psychosocial/ Personal History: . Lives at home. - Family History Mother -: Hypertension, Diabetes Father -: Hypertension, Stroke - Social History Smoking Status: Former smoker Alcohol use: No CD- Drugs: No Caffeine use: No Review of Systems General: Unremarkable Eyes: Unremarkable ENT: Unremarkable Respiratory: Shortness of Breath, SOB with Excertion Cardiovascular: Chest Pain Gastrointestinal: Unremarkable Genitourinary: Unremarkable Integumentary: Unremarkable Neurological: Unremarkable Lymphatics: Unremarkable Physical Examination - Physical Exam General: Alert, In no apparent distress, Oriented x3 HEENT: Atraumatic Neck: Supple Respiratory: Clear to auscultation bilaterally Cardiovascular: No edema, Normal S1 S2 Capillary refill: <2 Seconds Gastrointestinal: Normal bowel sounds Musculoskeletal: No clubbing, No swelling, No contractures Integumentary: No rashes, No breakdown Neurological: Normal speech, Other (Patient with abnormal sensation on the left side of body from previous CVA. Patient with mild dysphasia) - Studies Laboratory Data (last 24 hrs) 01/20/20 14:45: PT 13.3 H, INR 1.13 01/20/20 14:45: WBC 12.0 H, Hgb 11.4 L, Hct 35.5 L, Plt Count 211 01/20/20 14:45: Sodium 138, Potassium 2.7 L*, BUN 9, Creatinine 0.88, Glucose 116 H, Magnesium 2.0, Total Bilirubin 1.0, AST 63 H, ALT 50, Alkaline Phosphatase 290 H Assessment and Plan - Plan Assessment Chest pain with elevated troponin Hypokalemia 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 Cardiology has been consulted on this case. Patient will continue taking her Eliquis. Patient will remain on telemetry throughout the duration of this hospitalization. Will trend troponins and obtain echocardiogram. Will also have records from previous hospitalizations acquired. Anticipate discharge in the next 24-48 hr. Hypokalemia: Electrolyte protocol in place. Will recheck chemistry. Anti phospholipid syndrome on chronic anticoagulation therapy: Will continue patient's home medications Eliquis 5 mg twice daily. History of CVA on chronic anticoagulation therapy:Will continue patient's home medications Eliquis 5 mg twice daily. Hypertension: Will obtain and continue patient's home medication. Hyperlipidemia: Will obtain and continue patient's home medication, will obtain lipid panel. Chronic pain: Will provide pain medication as needed during this hospitalization. Depression: Will obtain and continue patient's home medications. PTSD:Will obtain and continue patient's home medications. Discharge Plan: Home Plan to discharge in: 24 Hours - Advance Directives Does patient have a Living Will: No Does patient have a Durable POA for Healthcare: No - Code Status/Comfort Care Code Status Assessed: Yes (Patient is full code) Time Spent Managing Pts Care (In Minutes): 55
[2020-01-20] MEDS ORDERED: MORPHINE 4 MG/ML SYR ONE (18:58)
[2020-01-20 20:25] LABS: Anisocytosis 1+; Blood Morphology Comment NOTED (NOT SEEN); Platelet Estimate ADEQ; Urine White Blood Cell Casts OK
[2020-01-20] MEDS ORDERED: NA CHLORIDE 0.9% 1,000 ML IV SCH (20:36)
[2020-01-20] MEDS ORDERED: ACETAMINOPHEN 500 MG TAB PO PRN (20:36)
[2020-01-20] MEDS ORDERED: HYDROCODONE/APAP 5/325 MG TAB PO PRN (20:36)
[2020-01-20 20:44] VITALS: BMI 28.2
[2020-01-20] MEDS ORDERED: APIXABAN 5 MG TABLET PO SCH (21:00)
[2020-01-20 22:01] LABS: CKMB Creatine Kinase MB 7.3 ng/mL (0.3-3.6)
[2020-01-20 22:03] LABS: Troponin I 1.53 ng/mL (0.0-0.045)
[2020-01-20] MEDS: ZOLPIDEM TARTRATE 10 MG TABLET PO PRN (22:42)
[2020-01-21] MEDS ORDERED: NA CHLORIDE 0.9% 250 ML IV ONE ×2 (00:03→03:55)
[2020-01-21] MEDS ORDERED: FENTANYL CITR 100 MCG/2 ML IV ONE ×2 (00:03→03:59)
[2020-01-21] MEDS: ONDANSETRON 4 MG/2 ML VIAL IV PRN (00:17)
[2020-01-21] MEDS: NA CHLORIDE 0.9% 1,000 ML IV SCH ×4 (03:57→20:10)
[2020-01-21] MEDS ORDERED: NITROGLYCERIN 1 GM PKT TD ONE (03:57)
[2020-01-21] MEDS: METOPROLOL TAR 25 MG TAB PO SCH (05:23)
[2020-01-21 06:06] LABS: Basophils % 1.2 % (0-1.3); Hematocrit 28.8 % (36.0-45.0); Lymphocytes % 33.5 % (15.3-44.8); MPV 6.8 fL (7.6-11.3); RBC Red Blood Cell Count 3.77 M/uL (3.86-4.86)
[2020-01-21 07:46] LABS: BUN Blood Urea Nitrogen 7 mg/dL (7-18); Bicarbonate 29 mmol/L (21-32); Creatine Phosphokinase 140 U/L (26-192); Glucose Level 81 mg/dL (74-106); HDL Cholesterol 36 mg/dL (40-60); LDL Cholesterol, Calculated 36 (<130); Magnesium 2.2 mg/dL (1.8-2.4); Potassium 3.3 mmol/L (3.5-5.1); Sodium Level 144 mmol/L (136-145)
[2020-01-21 07:56] LABS: CKMB Creatine Kinase MB 10.7 ng/mL (0.3-3.6); Troponin I 3.89 ng/mL (0.0-0.045)
[2020-01-21] MEDS ORDERED: POTASSIUM 25 MEQ EFFERV TAB PO ONE (08:12)
--- NOTE | 2020-01-21 11:51 | EKG ---
Test Date: 2020-01-21 Test Time: 04:10:58 Panel Laminator: AUREA MEASUREMENT RESULTS: Intervals: Rate: 56 WI: 166 QRSD: 126 QT: 478 QTc: 461 [place]: P: 61 WI: 166 QRS: 42 T: 39 INTERPRETIVE STATEMENTS: Sinus bradycardia Right bundle branch block Abnormal ECG Compared to ECG 12/04/2018 10:55:37 Right bundle-branch block now present Sinus rhythm no longer present Incomplete right bundle-branch block no longer present Prolonged QT interval no longer present Electronically Signed On 01-21-20 11:50:08 CDT by Bora Soto
--- NOTE | 2020-01-21 11:53 | EKG ---
Test Date: 2020-01-20 Test Time: 15:22:01 [employer] Applications Developer: EMANI MEASUREMENT RESULTS: Intervals: Rate: 58 VA: 166 QRSD: 126 QT: 476 QTc: 467 [place]: P: 63 VA: 166 QRS: 52 T: 68 INTERPRETIVE STATEMENTS: Sinus bradycardia with premature atrial complexes Right bundle branch block Abnormal ECG Compared to ECG 12/04/2018 10:55:37 Atrial premature complex(es) now present Right bundle-branch block now present Sinus rhythm no longer present Incomplete right bundle-branch block no longer present Prolonged QT interval no longer present Electronically Signed On 01-21-20 11:50:22 CDT by Bora Soto
[2020-01-21] MEDS: TRAMADOL HCL 50 MG TAB PO PRN (12:14)
--- NOTE | 2020-01-21 12:48 | ECHO ---
HEIGHT: 5 ft 3 in WEIGHT: 159 lb 6.4 oz DATE OF STUDY: 01/21/[address]: Agustin Huynh NP 2-DIMENSIONAL: YES M.MODE: YES DOPPLER: YES COLOR FLOW: YES TDS: NO PORTABLE: NO DEFINITY: NO BUBBLE STUDY: NO DIAGNOSIS: CHEST PAIN WITH ELEVATED TROPONIN CARDIAC HISTORY: CATHERIZATION: NO SURGERY: YES PROSTHETIC VALVE: NO PACEMAKER: NO MEASUREMENTS (cm) DIASTOLIC (NORMALS) SYSTOLIC (NORMALS) IVSd 0.9 (0.6-1.2) LA Diam 2.8 (1.9-4.0) LVEF 68% LVIDd 3.6 (3.5-5.7) LVIDs 2.3 (2.0-3.5) %FS 38% LVPWd 1.0 (0.6-1.2) Ao Diam 2.9 (2.0-3.7) 2 DIMENSIONAL ASSESSMENT: RIGHT ATRIUM: NORMAL LEFT ATRIUM: NORMAL RIGHT VENTRICLE: NORMAL LEFT VENTRICLE: NORMAL TRICUSPID VALVE: NORMAL MITRAL VALVE: NORMAL PULMONIC VALVE: NORMAL AORTIC VALVE: NORMLA PERICARDIAL EFFUSION: NONE AORTIC ROOT: NORMAL LEFT VENTRICULAR WALL MOTION: NORMAL DOPPLER/COLOR FLOW: NORMAL COMMENTS: NORMAL 2D ECHOCARDIOGRAM. NORMAL DOPPLER. NO WALL MOTION ABNORMALITY. NO EFFUSION. TECHNOLOGIST: Milagro DIEHL
[2020-01-21] MEDS ORDERED: HEPARIN/D5W 25,000 UNIT/500 ML BAG IV SCH (13:00)
--- NOTE | 2020-01-21 13:42 | P.PN ---
Subjective Date of Service: 01/21/20 Primary Care Provider: Micheal Chief Complaint: Chest pain with elevated troponin Subjective: Other (Patient continues to have intermittent chest pain, especially during exertion.) Review of Systems General: Unremarkable Eyes: Unremarkable ENT: Unremarkable Respiratory: As per HPI Cardiovascular: As per HPI Gastrointestinal: Unremarkable Genitourinary: Unremarkable Musculoskeletal: Unremarkable Integumentary: Unremarkable Neurological: Unremarkable Lymphatics: Unremarkable Physical Examination - Vital Signs Temperature: 98.4 F Blood Pressure: 96/47 Pulse: 56 Respirations: 20 Pulse Ox (%): 100 - Physical Exam General: Alert, In no apparent distress, Oriented x3 HEENT: Atraumatic, Normocephalic Neck: Supple Respiratory: Clear to auscultation bilaterally, Normal air movement Cardiovascular: No edema, Regular rate/rhythm, Normal S1 S2 Capillary refill: <2 Seconds Gastrointestinal: Normal bowel sounds, Soft and benign Musculoskeletal: No erythema, No warmth Integumentary: No erythema, No warmth Neurological: Normal speech - Studies Laboratory Data (last 24 hrs) 01/21/20 05:20: WBC 9.0 D, Hgb 9.5 L, Hct 28.8 L D, Plt Count 135 L D 01/21/20 05:20: Sodium 144, Potassium 3.3 L, BUN 7, Creatinine 0.66, Glucose 81, Magnesium 2.2, Troponin I 3.89 H* D, Triglycerides 163 H, Cholesterol 105, HDL Cholesterol 36 L, Cholesterol/HDL Ratio 2.92 01/20/20 21:22: Potassium 3.1 L 01/20/20 21:22: Troponin I 1.53 H* 01/20/20 14:45: PT 13.3 H, INR 1.13 01/20/20 14:45: WBC 12.0 H, Hgb 11.4 L, Hct 35.5 L, Plt Count 211 01/20/20 14:45: Sodium 138, Potassium 2.7 L*, BUN 9, Creatinine 0.88, Glucose 116 H, Magnesium 2.0, Total Bilirubin 1.0, AST 63 H, ALT 50, Alkaline Phosphatase 290 H Microbiology Data (last 24 hrs): 01/20/20 21:40 Nasopharnyx Coronavirus COVID-19 PCR - Final Assessment & Plan Discharge Plan: Home Plan to discharge in: Greater than 2 days - Code Status/Comfort Care Code Status Assessed: Yes (Patient is full code) Physician Review Additional Text: Assessment Chest pain with elevated troponin Hypokalemia 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 Cardiology has been consulted on this case. Patient continues to have chest pain at this time. I liquids is male being held and patient is placed on a heparin drip as her troponin has trended up. Cardiology wishes to hold off on the cath due to her use of Eliquis in the last 24 hr. Plan is to have patient catheterized Friday. Patient will be admitted to the ICU for closer monitoring. Hypokalemia: Electrolyte protocol in place. Potassium has improved. Will continue to monitor. 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 Will continue with heparin. History of CVA on chronic anticoagulation therapy:Will continue patient's home medications Eliquis 5 mg twice daily. Hypertension: Will obtain and continue patient's home medication. Hyperlipidemia: Will obtain and continue patient's home medication, will obtain lipid panel. Chronic pain: Will provide pain medication as needed during this hospitalization. Depression: Will obtain and continue patient's home medications. PTSD:Will obtain and continue patient's home medications. Discharge Plan: Home Plan to discharge in: 24 Hours Critical Care: No Time Spent Managing Pts Care (In Minutes): 55
--- NOTE | 2020-01-21 14:33 | EKG ---
Test Date: 2020-01-21 Test Time: 12:10:27 Dough Brake Machine Operator: SEBASTIAN MEASUREMENT RESULTS: Intervals: Rate: 60 DE: 154 QRSD: 112 QT: 442 QTc: 442 Crawford: P: 58 DE: 154 QRS: 41 T: 50 INTERPRETIVE STATEMENTS: Normal sinus rhythm Low voltage QRS Right bundle branch block Abnormal ECG Compared to ECG 01/21/2020 04:10:58 Low QRS voltage now present Sinus bradycardia no longer present Electronically Signed On 01-21-20 14:33:00 CDT by Bora Soto
[2020-01-21] MEDS: ENOXAPARIN 80 MG/0.8 ML SQ SCH (20:09)
[2020-01-21] MEDS: ZOLPIDEM TARTRATE 10 MG TABLET PO PRN (20:11)
--- NOTE | 2020-01-21 22:45 | CON ---
Date of Consultation: 01/21/2020 Reason For Consultation: Non-ST elevation myocardial infarction. History Of Present Illness: Ms. Whyte is a 54-year-old woman who rather has a very complicated past history. She has a history of hypertension, cholesterol, seizure disorders, CVA, anxiety, congestiv e heart failure, had bypass surgery in June of 2019 in [place], however, in 2019 in September on ly 3 months later, apparently underwent a heart catheterization and I think she had a stent, but she is not sure. She comes back with chest pain radiating to both arms, had just taken her Eliquis the e vening before she came to the hospital. She takes Eliquis for history of atrial fibrillation in the past. Her pain has been going on for about a week. No nausea, vomiting, diaphoresis. Denied PND, o rthopnea, pedal edema, palpitations, or syncope. Denied any fevers or chills or cough. Past Medical History: As stated above. Allergies: NEURONTIN. Review of Systems: Negative. Social History: Negative. Family History: Negative. Medications: At home include inhalers, Lipitor, Eliquis, Lasix, metoprolol, potassium, and Atarax. Physical Examination: General: She continued to have chest pain. She was in normal rhythm. Vital Signs: Stable. HEENT: Negative. Neck: Supple with no bruit. Chest: Clear. Cardiac: Revealed a regular rhythm and rate. No murmurs, gallops, or rubs. Abdomen: Benign. Extremities: Revealed no clubbing, cyanosis, or edema. Diagnostic Data: Hemoglobin 9.5. EKG nonspecific. Troponin is 1.53. Potassium was 2.7. Impression And Plan: Non-ST elevation myocardial infarction in a patient with congestive heart failu re, recent bypass surgery, and recent stent. It is rather very unusual for people to have blockages of that graft that soon after the bypass. I am not so sure about the details of her surgery or her r ecent catheterization after the surgery in September. Nevertheless, she just had the Eliquis less theresa n 24 hours ago and she is not safe to do a catheterization on her at this point. I think we need to hold her Eliquis, put her on heparin or Lovenox, stabilize her, continue her present regimen which do include Lipitor, metoprolol, Lasix, and inhaler, supplement her potassium, and plan to do a heart ca theterization on her on Friday01/24/2020. If she becomes unstable over the weekend, I will plan to get her transferred to [place] where she had her surgery in the past. Her blood pressure is well c ontrolled. Her dyslipidemia is well controlled. She has seizure disorder, history of CVA, and anxie ty, all of those are stable. The case was discussed with Dr. Michel. I think keeping her in the ICU for now is recommended. ANDRES/VENANCIO Voice ID: [id number] Report ID: [id number]
[2020-01-22] MEDS: METOPROLOL TAR 25 MG TAB PO SCH (05:37)
[2020-01-22 05:46] LABS: BUN Blood Urea Nitrogen 2 mg/dL (7-18); Bicarbonate 26 mmol/L (21-32); Glucose Level 77 mg/dL (74-106); Potassium 3.4 mmol/L (3.5-5.1); Sodium Level 143 mmol/L (136-145)
[2020-01-22] MEDS: NA CHLORIDE 0.9% 1,000 ML IV SCH (06:02)
[2020-01-22 06:09] LABS: Absolute Lymphocytes (CBC) 3.2 K/uL (0.7-4.9); Hematocrit 27.8 % (36.0-45.0); Lymphocytes % 41.6 % (15.3-44.8); MPV 7.5 fL (7.6-11.3); RBC Red Blood Cell Count 3.59 M/uL (3.86-4.86)
[2020-01-22] MEDS ORDERED: POTASSIUM 25 MEQ EFFERV TAB PO ONE (08:00)
[2020-01-22] MEDS: ENOXAPARIN 80 MG/0.8 ML SQ SCH ×2 (08:11→20:20)
[2020-01-22] MEDS ORDERED: ALBUTEROL INHALER 60 PUFF/8 GM IH PRN ×2 (11:16→11:21)
--- NOTE | 2020-01-22 11:22 | PN ---
Subjective: The patient has been followed for non-ST elevation myocardial infarction. She does take Eliquis that is being on hold for now. She is on Lovenox now. She was moved to the ICU because of continued chest pain. This morning, she is pain-free. Objective: Vital signs: Stable and she is afebrile. She is in sinus rhythm. Lungs: Showed no rales. Extremities: No edema. Heart: No S3 or S4. Laboratory Data: Her potassium is 3.4. Hemoglobin 8.8. Echocardiogram which was done yesterday was perfectly normal without any wall motion abnormalities or effusion. Her last troponin was 3.89. Impression And Plan: [id number] myocardial infarction, status post coronary artery bypass parviz t in June 2019. In September 2019, she had a myocardial infarction, but no catheterization becaus e of anemia. She had at [facility] in [place]. She also has a history of dyslipidemia, seizu re disorder, cerebrovascular accident, anxiety, and chronic pain. I agree with her present regimen i ncluding her Lovenox and metoprolol for now. Continue to hold the Eliquis and she can move to [facility] try today. Continue to watch potassium and hemoglobin. Plan for a heart catheterization on 01/24/2020. We will continue to follow her. ANDRES/VENANCIO Voice ID: [id number] Report ID: [id number]
--- NOTE | 2020-01-22 11:27 | P.PN ---
Subjective Date of Service: 01/22/20 Primary Care Provider: Micheal Chief Complaint: Chest pain with elevated troponin Subjective: Improving, Doing well (No chest pain noted) Physical Examination - Vital Signs Temperature: 97 F Blood Pressure: 108/62 Pulse: 69 Respirations: 19 Pulse Ox (%): 100 - Physical Exam General: Alert, In no apparent distress, Oriented x3, Cooperative HEENT: Atraumatic Neck: Supple Respiratory: Clear to auscultation bilaterally, Normal air movement Cardiovascular: Normal pulses, Regular rate/rhythm Gastrointestinal: Normal bowel sounds Neurological: Normal speech, Normal strength at 5/5 x4 extr, Normal tone, Normal affect - Studies Microbiology Data (last 24 hrs): 01/20/20 21:40 Nasopharnyx Coronavirus COVID-19 PCR - Final Medications List Reviewed: Yes Assessment & Plan Discharge Plan: Home Plan to discharge in: 48 Hours Physician Review Additional Text: Assessment Chest pain with elevated troponin secondary to NSTEMI complicated with history of CABG/CAD Hypokalemia Anemia suspect iron deficiency Hypoglycemia likely poor oral intake 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 Case discussed with cardiology. Continue Lovenox at this time. Patient will be transferred to the floor. Will monitor blood pressure chest pain closely. Patient will be kept NPO after midnight on Friday in preparation for her catheterization Friday. Blood sugar low. Will change IV fluid to D5 half-normal. Encourage oral intake. Will monitor this closely. Hypokalemia: Electrolyte protocol in place. Potassium has improved. Will continue to monitor. Anemia suspect iron deficiency: Will monitor hemoglobin closely. Will recheck CBC iron and B12 studies later today. May need to start IV iron for transfusion. Hypoglycemia likely poor intake: Will adjust IV fluids. Encourage oral intake. 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 Will monitor closely. Hypertension: Continue with metoprolol. Hyperlipidemia: Continue medication. Chronic pain: Continue home medication Depression: Continue home medication PTSD: Continue home medication Time Spent Managing Pts Care (In Minutes): 55
[2020-01-22] MEDS: D5 0.45 NS 1,000 ML IV SCH (11:52)
[2020-01-22 15:03] LABS: Potassium 4.3 mmol/L (3.5-5.1)
[2020-01-22 19:06] LABS: Absolute Lymphocytes (CBC) 3.3 K/uL (0.7-4.9); Basophils % 0.8 % (0-1.3); Hematocrit 31.6 % (36.0-45.0); Lymphocytes % 45.9 % (15.3-44.8); MPV 8.5 fL (7.6-11.3); RBC Red Blood Cell Count 4.06 M/uL (3.86-4.86)
[2020-01-22 19:19] LABS: Ferritin 50.7 ng/mL (8-388)
[2020-01-22] MEDS: TOPIRAMATE 25 MG TAB PO SCH (20:21)
[2020-01-22] MEDS: ATORVASTATIN 80 MG TAB PO SCH (20:21)
[2020-01-22] MEDS: ZOLPIDEM TARTRATE 5 MG TABLET PO SCH (20:21)
[2020-01-22] MEDS: buPROPion HCL 100 MG TAB PO SCH (20:21)
[2020-01-22] MEDS: SERTRALINE HCL 100 MG TAB PO SCH (20:21)
[2020-01-22] MEDS ORDERED: DULERA 100/5 (MOMETASONE/FORMOTEROL) INHALER IH SCH (21:00)
[2020-01-22] MEDS: CODEINE 30MG/APAP 300MG TAB PO PRN (21:29)
[2020-01-22] MEDS: ONDANSETRON 4 MG/2 ML VIAL IV PRN (21:30)
[2020-01-23] MEDS: D5 0.45 NS 1,000 ML IV SCH ×2 (04:53→08:00)
[2020-01-23] MEDS: METOPROLOL TAR 25 MG TAB PO SCH (05:04)
[2020-01-23 06:43] LABS: Basophils % 1.1 % (0-1.3); Hematocrit 28.5 % (36.0-45.0); Lymphocytes % 41.4 % (15.3-44.8); MPV 7.9 fL (7.6-11.3); RBC Red Blood Cell Count 3.68 M/uL (3.86-4.86)
[2020-01-23 06:49] LABS: BUN Blood Urea Nitrogen 2 mg/dL (7-18); Bicarbonate 28 mmol/L (21-32); Glucose Level 101 mg/dL (74-106); Magnesium 1.8 mg/dL (1.8-2.4); Potassium 3.4 mmol/L (3.5-5.1); Sodium Level 143 mmol/L (136-145)
[2020-01-23] MEDS: ENOXAPARIN 80 MG/0.8 ML SQ SCH ×2 (08:28→20:28)
[2020-01-23] MEDS: TOPIRAMATE 25 MG TAB PO SCH ×2 (08:29→20:27)
[2020-01-23] MEDS: SERTRALINE HCL 100 MG TAB PO SCH ×2 (08:29→20:27)
[2020-01-23] MEDS: buPROPion HCL 100 MG TAB PO SCH ×2 (08:29→20:27)
[2020-01-23] MEDS: CODEINE 30MG/APAP 300MG TAB PO PRN (08:34)
[2020-01-23] MEDS: ONDANSETRON 4 MG/2 ML VIAL IV PRN (08:35)
--- NOTE | 2020-01-23 08:48 | PN ---
Date of Progress Note: 01/23/2020 Subjective: The patient was admitted with a non-ST elevation myocardial infarction. Could not take her to the tin can laborer that day because she has taken Eliquis less than 24 hours ago. She has had her E liquis held since she has been here. She continues to have intermittent chest pain. Her troponin pe aked at 3.89. EKG is not showing any significant changes. Her echocardiogram was perfectly normal. No arrhythmias have been noted. Objective: Vital Signs: Stable. Chest: Clear. Cardiac: Normal. Extremities: No peripheral edema. Laboratory Data: Laboratory evaluations are stable. Her creatinine is 0.66. Present Medications: Include Lipitor, Lovenox and metoprolol. Impression And Plan: Non-ST elevation myocardial infarction, coronary artery disease status post cor onary artery bypass graft in June 2019, anemia, history of dyslipidemia, seizure disorder, cerebr ovascular accident, anxiety and chronic pain. Continue to hold Eliquis. Catheterization is planned for 01/24/2020. ANDRES/VENANCIO Voice ID: [id number] Report ID: [id number]
--- NOTE | 2020-01-23 10:50 | P.PN ---
Subjective Date of Service: 01/23/20 Primary Care Provider: Micheal Chief Complaint: Chest pain with elevated troponin Subjective: Improving, Doing well, Other (No chest pain noted. Patient to have heart catheterization tomorrow.) Physical Examination - Vital Signs Temperature: 96.9 F Blood Pressure: 150/72 Pulse: 66 Respirations: 19 Pulse Ox (%): 94 - Physical Exam General: Alert, In no apparent distress, Oriented x3, Cooperative HEENT: Atraumatic Neck: Supple Respiratory: Clear to auscultation bilaterally, Normal air movement Cardiovascular: Normal pulses, Regular rate/rhythm Gastrointestinal: Normal bowel sounds, Soft and benign, Non-distended, No tenderness, No masses, No rebound, No guarding Musculoskeletal: No erythema, No tenderness, No warmth Integumentary: No tenderness/swelling, No erythema, No warmth, No cyanosis Neurological: Normal speech, Normal strength at 5/5 x4 extr, Normal tone, Normal affect - Studies Medications List Reviewed: Yes Assessment & Plan Discharge Plan: Home Plan to discharge in: 48 Hours Physician Review Additional Text: Assessment Chest pain with elevated troponin secondary to NSTEMI complicated with history of CABG/CAD Hypokalemia Anemia suspect iron deficiency Hypoglycemia likely poor oral intake 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 Case discussed with cardiology. Continue Lovenox at this time. Patient stable at this time. Continue Lovenox. Will keep NPO after midnight. Patient to have heart catheterization tomorrow. Await findings. Anticipate home tomorrow if heart catheterization negative. May need one more day if stent required. I will turn over the service to the hospitalist team tomorrow. I will go the plan of care with him. Hypokalemia: Electrolyte protocol in place. Potassium has improved. Will continue to monitor. Anemia with iron deficiency/B12 deficiency: Hemoglobin stable. Will start IV iron with B12. Will monitor closely. Hypoglycemia likely poor intake: Discontinue IV fluids. Encourage oral intake. Will provide supplementation. 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 Will go home with Eliquis. History of CVA on chronic anticoagulation therapy: Patient on Lovenox at this time. Eliquis on hold. Will monitor closely. Hypertension: Continue with blood pressure medication. Hyperlipidemia: Continue cholesterol medication. Chronic pain: Continue home medication Depression: Continue home medication PTSD: Continue home medication COPD: Continue with current medication. Maintain sats above 93%. Time Spent Managing Pts Care (In Minutes): 55
--- NOTE | 2020-01-23 11:36 | RAD REPORT ---
EXAM DESCRIPTION: RAD - Chest Pa And Lat (2 Views) - 01/23/2020 9:10 am CLINICAL HISTORY: sob Chest pain. COMPARISON: Chest Single View dated 01/20/2020; Chest Single View dated 12/04/2018; Chest Single View d ated 12/01/2018; Chest Single View dated 11/30/2018 FINDINGS: The lungs are clear. The heart is normal in size. No displaced fractures. Sternotomy wires are present. IMPRESSION: No acute or concerning finding suspected.
[2020-01-23] MEDS: CYANOCOBALAMIN 1,000 MCG TAB PO SCH (11:43)
[2020-01-23] MEDS: SOD FERRIC GLUC COMPLX/SUCROSE 125 MG in NA CHLORIDE 0.9% 100 ML IV SCH (13:20)
[2020-01-23 18:37] LABS: Magnesium 1.6 mg/dL (1.8-2.4); Potassium 3.8 mmol/L (3.5-5.1)
[2020-01-23] MEDS ORDERED: POTASSIUM 25 MEQ EFFERV TAB PO ONE ×2 (18:43→19:00)
[2020-01-23] MEDS ORDERED: MAGNESIUM SULFATE 1 gm IVPB 1 GM/100 ML BAG IV ONE (19:00)
[2020-01-23] MEDS: ZOLPIDEM TARTRATE 5 MG TABLET PO SCH (20:27)
[2020-01-23] MEDS: ATORVASTATIN 80 MG TAB PO SCH (20:27)
[2020-01-24 04:54] LABS: Absolute Lymphocytes (CBC) 2.9 K/uL (0.7-4.9); Basophils % 0.1 % (0-1.3); Hematocrit 29.6 % (36.0-45.0); Lymphocytes % 37.6 % (15.3-44.8); MPV 7.8 fL (7.6-11.3); RBC Red Blood Cell Count 3.84 M/uL (3.86-4.86)
[2020-01-24 05:03] LABS: Magnesium 1.9 mg/dL (1.8-2.4); Potassium 3.8 mmol/L (3.5-5.1)
[2020-01-24] MEDS: METOPROLOL TAR 25 MG TAB PO SCH (06:01)
[2020-01-24] MEDS ORDERED: KCL 20 MEQ/100 mL IVPB 20 MEQ/100 ML BAG IV SCH (08:00)
[2020-01-24] MEDS: TOPIRAMATE 25 MG TAB PO SCH ×2 (08:28→21:00)
[2020-01-24] MEDS: CYANOCOBALAMIN 1,000 MCG TAB PO SCH (08:28)
[2020-01-24] MEDS: SERTRALINE HCL 100 MG TAB PO SCH ×2 (08:28→21:00)
[2020-01-24] MEDS: buPROPion HCL 100 MG TAB PO SCH ×2 (08:28→20:59)
[2020-01-24] MEDS ORDERED: NA CHLORIDE 0.9% 250 ML ONE (08:42)
[2020-01-24] MEDS ORDERED: HEPA 1000U/500MLS 2,000 UNIT/1,000 ML BAG IV ONE (09:04)
[2020-01-24] MEDS: SOD FERRIC GLUC COMPLX/SUCROSE 125 MG in NA CHLORIDE 0.9% 100 ML IV SCH (10:29)
[2020-01-24] MEDS ORDERED: NA CHLORIDE 0.9% 500 ML ONE (14:09)
[2020-01-24] MEDS ORDERED: HEPARIN 5000 UNIT/ML 1 ML VIAL ONE (14:32)
[2020-01-24] MEDS ORDERED: MIDAZOLAM HCL 2 MG/2 ML INJ ONE ×3 (14:32→15:25)
[2020-01-24] MEDS ORDERED: FENTANYL CITR 100 MCG/2 ML ONE (14:33)
[2020-01-24] MEDS ORDERED: ATROPINE SULF 1 MG/10 ML SYR IV ONE (14:33)
[2020-01-24] MEDS ORDERED: LIDOCAINE 1% MPF 30 ML VIAL ONE (14:40)
[2020-01-24] MEDS ORDERED: HEPA 1000U/500MLS 1,000 UNIT/500 ML BAG IV ONE (15:22)
[2020-01-24] MEDS ORDERED: TICAGRELOR 90 MG TABLET PO ONE (15:35)
[2020-01-24] MEDS ORDERED: NA CHLORIDE 0.9% 1,000 ML IV SCH (17:00)
[2020-01-24] MEDS: CODEINE 30MG/APAP 300MG TAB PO PRN (17:55)
[2020-01-24] MEDS: ONDANSETRON 4 MG/2 ML VIAL IV PRN ×2 (17:55→23:52)
[2020-01-24] MEDS: ZOLPIDEM TARTRATE 5 MG TABLET PO SCH (20:59)
[2020-01-24] MEDS: ATORVASTATIN 80 MG TAB PO SCH (20:59)
[2020-01-24] MEDS: TICAGRELOR 90 MG TABLET PO SCH (21:00)
[2020-01-24] MEDS: TRAMADOL HCL 50 MG TAB PO PRN (23:55)
--- NOTE | 2020-01-25 00:51 | OP ---
Date of Procedure: 01/24/2020 Surgeon: SAMY GABRIEL Haulage Engine Operator: Samy Gabriel. Indication: Non-ST elevation myocardial infarction. Noc Engineer: Bora Soto M.D. Procedure Performed: 1.Selective coronary angiogram. 2.PCI of severe ostial RCA stenosis using a 3.0 x 16 mm Synergy drug-eluting stent overlapped distal ly using 3.0 x 8 mm Synergy drug-eluting stent for edge dissection. 3.RAJINDER-3 flow before and after PCI, 0% residual stenosis and length of the lesion was 10 mm. Access: Right femoral artery 6-Bruneian closed with 6-Bruneian Angio-Seal. Complications: None. Bleeding: Less than 10 mL. Description Of Procedure: The patient was brought into the cardiac catheterization laboratory, prepp ed and draped in usual sterile fashion. Then, we accessed the right femoral artery using an ultrasou nd guidance and fluoroscopy. A 6-Bruneian pinnacle sheath was placed and we took a 6-Bruneian JL4 cathet er, engaged the left main and took standard views and then took a JR4 catheter and try to engage the RCA and . We used the same catheter to engage the MENENDEZ successfully and then we exchanged this for a 3DRC catheter and engaged the right coronary artery. At the moment of engagement, there w as a significant drop and dampening of the pressure suggesting severe ostial disease and multiple vie ws showed that clearly. Then we decided to intervene on the osseous RCA, we took the diagnostic cath eter out and exchanged it for a 6-Bruneian 3DRC guide with side holes in case to engage the ostium of t he RCA and then took a run-through wire across the lesion, then used a 2.5 x 8 mm balloon to pre-dila te the lesion. During the procedure we used IV heparin for ST level to be above 250 and then we took a 3.0 x 60 mm Synergy drug-eluting stent and we stented across the lesion in the ostium with 0% resi dual stenosis and RAJINDER-3 flow, however there was a small area of edge dissection distally, so we plac ed another stent 3.0 x 8 mm to overlap the first one and with excellent results and no complications. I believe this is the culprit of the non-STEMI as the ostium appears to be very tight in certain vi ews. Findings: 1.Severe ostial RCA stenosis, status post PCI as above. 2.[id number]-kb-xlqgmwob PLB disease. 3.Likely occluded ostial LAD with patent MENENDEZ to mid LAD that fills back retrograde fashion all the way to the stenosis and no significant disease involving the left circumflex. Total time of sedation was 75 minutes. Complications were none. We took everything out of the body and closed with Angio-Seal with good results. The patient was given 180 mg of Brilinta in the proced ure. Impression: 1.Coronary artery disease as above. 2.Successful percutaneous coronary intervention of ostial right coronary artery as above. 3.Continue Brilinta, aspirin, and high-dose statin. SR/MODL Voice ID: [id number] Report ID: [id number]
[2020-01-25] MEDS: CODEINE 30MG/APAP 300MG TAB PO PRN ×2 (02:02→08:36)
[2020-01-25] MEDS: METOPROLOL TAR 25 MG TAB PO SCH (05:42)
[2020-01-25 06:54] LABS: Absolute Lymphocytes (CBC) 2.5 K/uL (0.7-4.9); Basophils % 0.7 % (0-1.3); Hematocrit 31.3 % (36.0-45.0); Lymphocytes % 26.2 % (15.3-44.8); MPV 8.1 fL (7.6-11.3); RBC Red Blood Cell Count 4.03 M/uL (3.86-4.86)
[2020-01-25 07:13] LABS: Potassium 3.7 mmol/L (3.5-5.1)
[2020-01-25 07:39] LABS: Blood Morphology Comment NOTED (NOT SEEN); Platelet Estimate ADEQ; Urine White Blood Cell Casts OK
[2020-01-25 07:40] LABS: Anisocytosis 1+
[2020-01-25] MEDS ORDERED: POTASSIUM CL SA 10 MEQ TAB PO ONE (07:56)
[2020-01-25] MEDS: CYANOCOBALAMIN 1,000 MCG TAB PO SCH (07:57)
[2020-01-25] MEDS: SERTRALINE HCL 100 MG TAB PO SCH (07:57)
[2020-01-25] MEDS: buPROPion HCL 100 MG TAB PO SCH (07:57)
[2020-01-25] MEDS: TOPIRAMATE 25 MG TAB PO SCH (07:57)
[2020-01-25 08:02] VITALS: O2SAT 99
[2020-01-25] MEDS: ONDANSETRON 4 MG/2 ML VIAL IV PRN (08:36)
[2020-01-25 08:45] VITALS: BP 131/67; TEMP 97.4
[2020-01-25] MEDS: SOD FERRIC GLUC COMPLX/SUCROSE 125 MG in NA CHLORIDE 0.9% 100 ML IV SCH (08:46)
[2020-01-25] MEDS ORDERED: ASPIRIN 81 MG CHEWABLE TABLET PO SCH (09:00)
[2020-01-25] MEDS: TICAGRELOR 90 MG TABLET PO SCH (10:00)
--- NOTE | 2020-01-26 01:53 | DS ---
Date of Discharge: 01/25/2020 Consultants: Dr. Soto and Dr. Fatima with Cardiology. Admitting Diagnoses: 1.Chest pain. 2.Elevated troponin level. 3.Hypokalemia. 4.Antiphospholipid syndrome on anticoagulation therapy. 5.History of cerebrovascular accident on Eliquis. 6.Essential hypertension. 7.Mixed hyperlipidemia. 8.Chronic pain syndrome. 9.Depression. 10.Post-traumatic stress disorder. Discharge Diagnoses: 1.Chest pain secondary to [id number] myocardial infarction. 2.Coronary artery disease, [place] artery, [place] heart, status post coronary artery bypass graft wit h angina. 3.Hypokalemia, corrected. 4.Anemia with iron deficiency and B12 deficiency. 5.Hypoglycemia. 6.Antiphospholipid syndrome, on Eliquis. 7.History of cerebrovascular accident, on Eliquis. 8.Essential hypertension, stable. 9.Mixed hyperlipidemia, on statin. 10.Chronic pain syndrome. 11.Major depressive disorder, stable. 12.Posttraumatic stress disorder, stable. 13.Chronic obstructive pulmonary disease, chronic bronchitis, stable. Hospital Course: Patient is a 54-year-old female with past medical history of hypertension, migraine headaches, hyperlipidemia, history of CVA, TIA, depression, heart disease, antiphospholipid syndrome , patient has also had coronary artery bypass graft and chronic pain syndrome, comes in with chest pa in elevated troponin at 0.11. Patient was admitted to the hospital for further evaluation and treatm ent. Her cardiac enzymes elevated at 3.89. Patient had cardiac catheterization done and PCI of RCA was done with stent. Patient's pain improved. Her chest x-ray was clear. Patient also had echocard iogram, which showed EF of 68%. No wall motion abnormality. Her pain improved. She was asymptomati c. Patient will be continued on Eliquis for her antiphospholipid syndrome and CVA and the patient wi ll also be on Plavix for her stent on this admission. Patient also had some electrolyte abnormalitie s, which were corrected. She will continue to take potassium supplements. She also has low iron and she will need to continue iron supplements. She will need to follow up with primary care physician in 2-3 days. Follow up with public address systems mechanic, Dr. Soto in 2 weeks. Retur n to ER for worsening condition. Diet: Heart healthy. Activity: As tolerated. Medications: As per medication reconciliation list. Physical Examination: General: Awake, alert, oriented x3. No acute distress. CV: S1, S2. Respiratory: Moving air well bilaterally. Abdomen: Soft, nontender, nondistended. Positive bowel sounds. Extremities: No clubbing, cyanosis, edema. Neuro: Abnormal speech, chronic. Total time spent discharging patient was 35 minutes. /VENANCIO Voice ID: [id number] Report ID: [id number]
--- NOTE | 2020-01-26 02:09 | PN ---
Subjective: Ms. Whyte was admitted with non-ST elevation myocardial infarction. Yesterday, she had a heart catheterization showing a patent MENENDEZ to the LAD and normal circumflex. She had an ostial 8 0%-90% RCA stenosis. Stent was deployed by Dr. Fatima yesterday with 0% residual. Overnight, the pa tient is pain free. Has no complaint. Physical Examination: Vital signs: Stable. She is afebrile. Chest: Clear. GI/: Her right groin site is intact without any hematoma. History Of Present Illness: Ms. Whyte is a patient who has coronary artery disease status post CABG with a MENENDEZ to the LAD that is patent, now she is status post RCA stent. She has been on Eliquis in the past. We will resume her Eliquis, also add Plavix 75 mg daily. No aspirin and she can go home today. We will see her in the office in the next 2 weeks. ANDRES/VENANCIO Voice ID: [id number] Report ID: [id number]
== END 2020-01-25 11:09 | disposition home or self-care (01) | DRG 247 ==
LOC: ER 13:28 → ERHOLD 16:59 → 4TH 20:09 → OBSVTOIN 01-21 09:01 → 3RD-ICU 01-21 13:57 → 2ND 01-22 12:35
PROVIDERS: ADMIT Family Medicine; ATTEND Family Medicine
PROC: 027035Z Dilation of Coronary Artery, One Artery with Two Drug-eluting Intraluminal Devices, Percutaneous Approach (ICD-10-PCS; principal; 2020-01-24)
PROC: 4A023N7 Measurement of Cardiac Sampling and Pressure, Left Heart, Percutaneous Approach (ICD-10-PCS; 2020-01-24)
PROC: B2111ZZ Fluoroscopy of Multiple Coronary Arteries using Low Osmolar Contrast (ICD-10-PCS; 2020-01-24)
PROC: B2181ZZ Fluoroscopy of Left Internal Mammary Bypass Graft using Low Osmolar Contrast (ICD-10-PCS; 2020-01-24)
DX: I21.4 Non-ST elevation (NSTEMI) myocardial infarction (principal); I25.10 Atherosclerotic heart disease of native coronary artery without angina pectoris; K21.9 Gastro-esophageal reflux disease without esophagitis; E87.6 Hypokalemia; F32.9 Major depressive disorder, single episode, unspecified; F43.10 Post-traumatic stress disorder, unspecified; I50.9 Heart failure, unspecified; I11.0 Hypertensive heart disease with heart failure; E16.2 Hypoglycemia, unspecified; J44.9 Chronic obstructive pulmonary disease, unspecified; E78.2 Mixed hyperlipidemia; G89.4 Chronic pain syndrome; D50.9 Iron deficiency anemia, unspecified; D51.3 Other dietary vitamin B12 deficiency anemia; Z20.828 Contact with and (suspected) exposure to other viral communicable diseases; Z87.891 Personal history of nicotine dependence; Z88.5 Allergy status to narcotic agent; Z79.899 Other long term (current) drug therapy; Z90.710 Acquired absence of both cervix and uterus; Z95.1 Presence of aortocoronary bypass graft; Z90.49 Acquired absence of other specified parts of digestive tract; Z86.73 Personal history of transient ischemic attack (TIA), and cerebral infarction without residual deficits
CPT/HCPCS: 36415; 71045; 71046; 80048; 80061; 80076; 82550; 82553; 82607; 82728; 83540; 83735; 83880; 84132; 84466; 84484; 85025; 85347; 85610; 93005; 93306; 93459; 96361; 96374; 96375; 99285; C1725; C1760; C1893; C9600; G0378; J1644; J1650; J2250; J2405; J2916; J3010; J3475; J7030; J7040; J7799; U0002

== ENCOUNTER 2020-04-17 23:28 | Observation (INO) | payer MEDICAID ==
--- OUTSIDE RECORDS SUMMARY | 2020-04-17 23:37 | XMS REPORT | Continuity of Care Document ---
:1965 Author Organization [facility] [employer] [facility] [employer] Care Team Providers Name Role Phone [facility] [employer] Unavailable Un available Problems Problem Status Onset Classification Date Comments Sourc e Date Reported STROKE Active 03/09/[address] Center DYSPNEA Active 03/09/[address] ENCEPHALITIS/SEIZUR Active 03/16/20 [facility] ES 15 Medical Center NON-HEMORRAGHIC Active 10/26/19 [facility] [place] STROKE 15 Medical Center ISCHEMIC CVA Active 11/13/19 [facility] s 14 [facility] WEAKNESS Active 11/13/[address] Center AMS Active 05/08/[address] CEREBRAL VASCULAR Active 07/19/20 [facility] ACCIDENT Medical Center Anxiety (finding) Resolved Problem 03/14/2019 [facility] Chronic obstructive Active Problem 03/14/2019 [facility] lung disease Medical (disorder) Center Cerebrovascular Active Problem 03/14/2019 [facility] accident (disorder) [facility] Depression - motion Active Problem 03/25/2015 [facility]qualifier value[facility] Asthenia (finding) Active Problem 03/14/2019 [facility] Hypertensive Active Problem 03/14/2019 [place] disorder, systemic M edical arterial (disorder) Center Migraine (disorder) Active Problem 03/14/2019 [facility] Anxiety Active Problem 05/14/2013 [facility] COPD Active Problem 05/14/2013 [facility] Depression Active Problem 05/14/2013 [facility] General weakness Active Problem 05/14/2013 [facility] Hypertension Active Problem 05/14/2013 [place] [facility] Center Migraine Active Problem 05/14/2013 [facility] Stroke Active Problem 05/14/2013 [facility] Antiphospholipid Resolved Problem 03/14/2019 [facility] syndrome (disorder) Medical Center Transient ischemic Resolved Problem 03/14/2019 [facility] attack (disorder) Ms dical Center Gastroesophageal Resolved Problem 03/14/2019 [facility] reflux disease Medic al (disorder) Center Hyperlipidemia Resolved Problem 03/14/2019 [facility] [place] (disorder) Medical Center Nausea (finding) Resolved Problem 03/14/2019 [facility] Morbid obesity Active Problem 03/14/[place] (disorder) [facility] CVA Active [facility] ALTERED [place]ENTAL [place]US [facility] MALAISE AND FATIGUE Active [facility] NEC [facility] FEBRILE CONVULSIONS Active [facility] NOS [facility] DYSPNEA, Active [facility] UNSPECIFIED [facility] Medications Medication Details Route Status Patient Ordering Order Source Instructions Provider Date lisinopril 10 mg 10 mg = 1 tab, Active 03/12[facility] oral tablet PO, Daily, # 2019 Medical 30 tab, 2 Center Refill(s) aripiprazole 5 5 mg = 1 tab, Active 03/12[facility] MG Oral Tablet PO, Bedtime, # 2019 Me dical [Abilify] 30 tab, 0 Center Refill(s) buPROPion 200 200 mg = 1 Active [facility] [place] mg/12 hours (SR) tab, PO, BID, 2019 M edical oral tablet, # 60 tab, 0 Center extended release Refill(s) carvedilol 3.125 3.125 mg = 1 Active [facility] mg oral tablet tab, PO, BID, 2019 Med ical # 60 tab, 0 Center Refill(s) atorvastatin 80 80 mg = 1 tab, Active 03/12/ H [place] mg oral tablet PO, Bedtime, # 2019 Me dical 30 tab, 0 Center Refill(s) LORazepam 2 mg 2 mg = 1 tab, Inactive 03/12[facility] oral tablet PO, BID, # 60 2019 Medica l tab, 0 Center Refill(s) cyclobenzaprine 10 mg = 1 tab, Active H [place] 10 mg oral PO, BID, # 30 2019 Medical tablet tab, 0 Center Refill(s) triazolam 0.25 0.5 mg = 2 Active [facility] [place] mg oral tablet tab, PO, 2019 Medical Bedtime, PRN Center Sleep, # 60 tab, 0 Refill(s) Potassium Notes: (Same Inactive [facility] Chloride as: K-Dur 20) 2019 Medical "Do Not Crush" Center Give with food and full glass of water For patients unable to swallow tablet, dissolve in one half glass of water. Allow about 2 minutes for the tablets to disintegrate. Stir before giving to prepare slurry and administer. Please exclude Patient’ s with feeding tube less than 14 [place] (Dobhoff, J-tube etc) and pediatric and patients. Potassium Notes: (Same Inactive [facility] Chloride as: K-Dur 20) 2019 Medical "Do Not Crush" Center Give with food and full glass of water For patients unable to swallow tablet, dissolve in one half glass of water. Allow about 2 minutes for the tablets to disintegrate. Stir before giving to prepare slurry and administer. Please exclude Patient’ s with feeding tube less than 14 [place] (Dobhoff, J-tube etc) and pediatric and patients. potassium Notes: (Same Inactive [facility] chloride as: Potassium 2019 [facility] Chloride) Center Sertraline Notes: (Same No Longer [place] as: Zoloft) Active 2019 Medical [place] Topamax Notes: (Same No Longer [facility] As: Topamax) Active 2019 Medical "Do Not Crush" Center Potassium 20 mEq, Route: Inactive [place] Chloride PO, ONCE, 2019 Medical Dosing Weight Center 99.318, kg, Start date: 03/11/19 8:46:00 CDT, Stop date: 03/11/19 8:46:00 CDT Calcium Notes: WASTE: Inactive [facility] Gluconate F/P - Sink; E [facility] Potassium Notes: (Same Inactive [facility] Chloride 1.33 as: Potassium 2019 Medi see MEQ/ML Oral Chloride) Center Solution Melatonin 3 MG Notes: (Same No Longer [facility] Extended Release as: Melatonin) Active 2019 Medical Tablet Center atorvastatin Notes: Same as No Longer [facility] Lipitor Active 2019 Medical [place] Lisinopril Notes: (Same No Longer [place] as: Prinivil, Active 2019 [facility] Zestril) Center heparin Notes: porcine [place]er [place] heparin Active 2019 Medical [place] potassium Notes: (Same Inactive [facility] phosphate + as: K 2019 Medical Sodium [...] 03/10/19 14:09:00 CDT potassium Notes: (Same Inactive [place] chloride as: KCL) 2019 Medical Infuse no Center faster than 10 mEq/hr if given peripherally. Folic Acid Notes: (Same No Longer [place] as: Folvite) Active 2019 Medical Center Thiamine Notes: (Same No Longer [place] As: Vitamin Active 2019 [facility] B1) Center multivitamin Notes: (Same No [...] Medical Center Albuterol 0.833 Notes: (Same Inactive [facility] MG/ML / as: Duoneb) 2019 Medical Ipratropium Center [place] 0.167 MG/ML Inhalant Solution Potassium Notes: (Same Inactive [facility] Chloride as: KCL) 2019 Medical Infuse no Center faster than 10 mEq/hr if given peripherally. Acetaminophen 100.4 F, No Longer [place] as Start date: Active 2019 Medical 03/09/19 [place] 22:02:00 CDT, Duration: 30 day, Stop date: 04/08/19 22:01:00 CDT, 0 Ondansetron Notes: [place] MEDICATION Active 2019 Medical WASTE Center Product Size: 4 mg Product Wasted: ___ mg Dextrose 50% 12.5 gm, 25 [place]er [place] Syringe mL, Route: Active 2019 [facility] IVP, Drug Center Form: INJ, Dosing [...] CDT, 0 Iohexol 100 mL, Route: Inactive [facility] IVP, Drug 2019 Medical Form: [facility] Dosing Weight 97.5, kg, ONCALL, STAT, Start date: 03/09/19 19:24:00 CDT, Duration: 1 doses or times, Dose = 2.2ml/kg, Max dose = 100ml -- "To be infused by Radiology Staff ONLY" Iohexol 82 mL, Route: Inactive [facility] IVP, Drug 2019 Medical Form: [facility] [place] Dosing Weight 97.5, kg, ONCALL, STAT, Start date: 03/09/19 19:06:00 CDT, Duration: 1 doses or times, Dose = 2.2ml/kg, Max dose = 100ml -- "To be infused by Radiology Staff ONLY" heparin additive Notes: Total No Longer [facility] 25,000 unit [12 Concentration Active 2019 Ms dical unit/kg/hr] + = 50 unit/mL; Cent [...] Heparin - one 4,000 unit, 4 Inactive [facility] time bolus for mL, Route: 2019 Medica [...] 30 day, 0 Plavix Notes: (Same Inactive [facility] as: Plavix) 2019 [facility] Magnesium Notes: WASTE: [facility] Sulfate F/P - Sink; E 2019 [facility] Trash Bin potassium 40 mEq, 2 tab, Inactive [facility] as chloride 20 mEq Route: PO, 2019 Medic al oral tablet, Drug form: Center extended release ERTAB, ONCE, Dosing Weight 97.5, kg, Priority: STAT, Start date: 03/09/19 17:41:00 CDT, Stop date: 03/09/19 17:41:00 CDT, 0 Isolyte S PH-7.4 Notes: (Same Inactive [facility] ([facility] IV as: Isolyte S 2019 Medical PH 7.4) Center Acetaminophen Notes: Do not Inactive [facility] exceed 4 2015 Medical gm/day. (Same Center as: Tylenol) rivaroxaban 20 20 mg = 1 tab, Active [place] MG Oral Tablet PO, QPM, # 30 2015 Med ical [Xarelto] tab, 0 Center Refill(s) lisinopril 20 mg 20 mg = 1 tab, Active [facility] oral tablet PO, BID, # 60 2015 Medica l tab, 1 Center Refill(s) valACYclovir 1 g 1 gm = 1 tab, Active [facility] oral tablet PO, Q8H, X 14 2015 Medica l day, # 42 tab, Center 0 Refill(s) atorvastatin 80 80 mg = 1 tab, Active [place] mg oral tablet PO, Bedtime, # 2015 Me dical 30 tab, 1 Center Refill(s) Levetiracetam 1,000 mg = 1 Active [place] 1000 MG Oral tab, PO, BID, 2015 Medic al Tablet # 60 tab, 2 Center Refill(s) Rocephin 1 gm, Route: Inactive [place] IVPB, Drug 2014 Medical form: PDR/INJ, Center [id number], Dosing Weight 110.3, kg, Start date: 03/22/15 8:00:00, Duration: 30 day, Stop date: 04/20/15 8:00:00 Valtrex Notes: (Same No Longer [facility] As: Valtrex) Active 2014 [facility] acyclovir + Notes: (Same [place] Sodium Chloride as: Zovirax) Active 2014 Med ical 0.9% IV 100 mL MEDICATION Ce nter WASTE Product Size: 500 mg Product Wasted: _0__ mg Magnesium Oxide Notes: (Same Inactive [facility] as: Mag-Ox 2014 Medical 400) Magnesium Center oxide [id number] elemental magnesium Dose=____mg magnesium oxide (___mg elemental magnesium) Potassium Notes: (Same Inactive [facility] Chloride 1.33 as: Potassium 2014 Medi see MEQ/ML Oral Chloride) Center Solution Lipitor Notes: Same as [place] Longer [place] Lipitor Active [facility] Haloperidol Notes: (Same [place] as: Haldol) Active 2014 Medical [place] Sertraline Notes: (Same No Longer [place] as: Zoloft) Active 2014 [facility] pregabalin Notes: Same as [place] Longer [place] Lyrica Active 2014 [facility] Wellbutrin Notes: (Same No Longer [place] As: Active 2014 [facility] Wellbutrin) Center pantoprazole Notes: Tablet No Longer [place] should not be Active 2014 [facility] chewed or Center crushed. (Same as: Protonix) Keppra Notes: (Same No Longer [place] as:Keppra) Active 2014 [facility] Topamax Notes: (Same No Longer [place] As: Topamax) Active [address] [place] [address] potassium Notes: (Same Inactive [place] chloride as: Potassium 2014 [facility] Chloride) [place] heparin Notes: porcine No Longer a s heparin Active [address] [place] [address] Keppra + Sodium Notes: Same as No Longer [place] Chloride 0.9% IV Keppra Mix Active 2014 Med ical 100 mL with 100 mL Center NS, LR or D5W MEDICATION WASTE Product Size: 500 mg Product Wasted: ___ mg Lisinopril Notes: (Same No Longer [place] as: Prinivil, Active 2014 [facility] Zestril) [place] Hydralazine Notes: (Same [place] as: Active 2014 Medical Apresoline) [place] Push over 5 minutes Labetalol 10 mg, 2 mL, [place]er [place] Route: IVP, Active 2014 Medical Drug form: [place] INJ, Q15Min, Dosing Weight 110.3, kg, PRN Hypertension, Start date: 03/16/15 22:36:00, Duration: 30 day, Stop date: 04/15/15 22:35:00 Levetiracetam 1,000 mg, Inactive [place] 100 MG/ML Oral Route: [place], 2015 Medica l Solution Drug form: [place] [Keppra] SOLN, Q12H, Dosing Weight 110.3, kg, [...] Sodium 500 mg, IV, No Longer H [place] 100 mg/mL Q8H, 0 Active 2014 [facility] intravenous Refill(s) [place] solution haloperidol 2 mg 2 mg = 1 tab, No Longer [place] oral tablet PO, BID, 0 Active 2014 Medical Refill(s) [place] Folic Acid 1 MG 1 mg = 1 tab, No Longer [place] Oral Tablet PO, Daily, # Active 2015 [...] 0 Refill(s) NS w/K20 Special No Longer [place] Instructions: Active 2014 Medical 70 mls/hr Center atorvastatin 80 80 mg = 1 tab, No Longer [place] mg oral tablet PO, Bedtime, # Active 2015 Me dical 30 tab, 0 Center Refill(s) topiramate 50 MG 50 mg = 1 tab, Active [place] Oral Tablet PO, BID, # 60 2015 [...] 2 mg = 1 cap, No Longer [place] oral capsule PO, BID, 0 Active 2014 Medical Refill(s) Center acyclovir 500 mg IV, Q8H, 0 No Longer [place] intravenous Refill(s) Active 2014 Medical injection Center Methocarbamol 250 mg, PO, [place] Longer [place] BID, 0 Active 2014 Medical Refill(s) Center Acetaminophen 650 mg, PO, No Longer [place] PRN, 0 Active 2014 Medical Refill(s) Center lisinopril 20 mg 20 mg = 1 tab, No Longer [place] oral tablet PO, BID, 0 Active 2014 Medical Refill(s) Center pregabalin 50 mg 50 mg = 1 cap, Active [facility] oral capsule PO, BID, # 60 2015 Medic al cap, 1 Center Refill(s) cefTRIAXone 1 g 1 gm, IV, No Longer [place] injection Q12H, # 10 ea, Active 2014 Medical 0 Refill(s) Center Levofloxacin 500 mg, Route: No Longer [place] PO, Drug form: Active 2014 Medical TAB, [...] Medi see MG Oral Tablet Drug form: [place] [Ultram] TAB, Q8H, Dosing Weight 110.3, kg, [...] [place] As: Active 2014 Medical Wellbutrin) [place] Topamax Notes: (Same No Longer [place] As: Topamax) Active 2014 Medical "Do Not Crush" Center sennosides, DETENTION Notes: (Same No Longer H [place] as: [...] 2014 Medical Center Flumazenil Notes: (Same Inactive [facility] as: Romazicon) 2015 Medical Center Hydromorphone Notes: Same [place] as: Dilaudid 2014 [facility] Metoprolol Notes: (Same Inactive [place] [...] IV SET ONLY potassium Notes: (Same Inactive [facility] chloride as: Potassium 2014 Medical Chloride) Center [...] date: 10/28/14 18:32:00 Vancomycin 2001 mg: Inactive [facility] infuse over 2015 Medical 2.5 hours Center Vancomycin FOR IV SET ONLY Vancomycin 2001 mg: No Longer [place] infuse over Active 2014 Medical 2.5 hours Center Vancomycin FOR IV SET ONLY Ativan 2 mg, Route: Inactive [place] IV, ONCE, 2015 Medical Dosing Weight Center 110.3, kg, Start date: 10/28/14 13:49:00, Stop date: 10/28/14 13:49:00 sodium phosphate Notes: (Same Inactive [facility] + Sodium as: Na 2014 Medical Chloride 0.9% IV Phosphate, Na C enter 250 mL PO4) potassium Notes: (Same Inactive [facility] chloride as: Potassium 2014 Medical Chloride) Center magnesium 2 gm, 50 mL, Inactive [place] sulfate Route: IVPB2014 Medical Drug form: Center INJ, ONCE, Start date: 10/28/14 4:30:00, Stop date: 10/28/14 4:30:00 docusate sodium Notes: (Same No Longer [facility] 150 mg/15 mL as: Colace) Active 2014 Medical oral liquid Center chlorhexidine Notes: (Same No Longer [facility] gluconate 1.2 As: Peridex) Active 2014 Medic [...] [place] MG/ML Injectable Diprivan - Active 2014 [facility] see Suspension change bottle Center & tubing every 12 hr Per state nursing law propofol can only be given by a nurse if patient is intubated or being intubated (unless the nurse is a POULTRY EVISCERATOR). Same as: Diprivan sodium Notes: (sodium Inactive [place] bicarbonate 75 bicarb 8.4% (1 2014 Me [...] being intubated (unless the nurse is a POULTRY EVISCERATOR). Michelle Notes: Same No Longer [place] as: Keppra Active [address] [place] [address] Vancomycin 2001 mg: No Longer [place] infuse over Active 2014 [facility] 2.5 hours [place] Vancomycin FOR IV SET ONLY heparin additive 500 mL, Rate: No Longer [place] 25,000 unit [14 21.16 ml/hr, Active 2014 Med ical unit/kg/hr] + Infuse over: Cente r Premix Diluent 23.6 hr, Dextrose 5% 500 Route: IV, mL Dosing Weight 75.56 kg, Total Volume: 500 mL, Start date: 10/26/14 20:00:00, Duration: 30 day, Stop date: 11/25/14 19:59:00 hydrocortisone Notes: (Same No Longer [place] 100 mg injection as: Active 2014 [facility]) Center physiological Notes: Total No Longer [place] irrigating ingredients in Active 2014 Medica l solution bag Na Center 140meq/L; K 4meq/L; HCO 35meq/L; Ca 3meq/L; Magnesium 1meq/L; CL 113meq/L; Glucose 100mg/dL; "Break seal Between compartments and mix before hanging" sennosides, DETENTION Notes: (Same No Longer [facility] as: Senokot) Active 2014 Medical [place] Lipitor Notes: Same as No Longer [place] Lipitor Active 2014 Medical Center Xarelto Notes: (Same Inactive [place] as: Xarelto) 2015 Medical Administer Center with food chlorhexidine Notes: (Same No Longer [place] gluconate 1.2 As: Peridex) Active 2014 Medic al MG/ML [place] Center nxstage pureflow 1,000 mL, Inactive [place] [id number] 5000ml Route: 2014 Medical SOLN 1000 mL DIALYSIS, Center Irrigation Site: Vein, femoral, Rt, 3,000 ml/hr, 0.3 hr, Total Volume: 1,000, "For Irrigation Only", Start date: 10/26/14 16:50:00, Duration: 1 day, Stop date: 10/27/14 16:49:00 Ketamine Notes: Per No Longer [facility] Active 2014 [facility] ketamine Center can only be given by a nurse if patient is intubated or being intubated (unless the nurse is a POULTRY EVISCERATOR). lidocaine 1% Notes: (Same No Longer [place] as: Xylocaine) Active 2014 [facility] Ketamine Notes: Per Inactive [address] law ketamine Center can only be given by a nurse if patient is intubated or being intubated (unless the nurse is a POULTRY EVISCERATOR). Calcium Chloride 1,000 mg, 10 Inactive [place] mL, Route: 2014 Medical IVPB, ONCE, Center Dosing Weight 110.3, kg, Start date: 10/26/14 15:40:00, Stop date: 10/26/14 15:40:00 Iohexol Special Inactive [place] Instructions: 2015 Medical Dose = Center 2.2ml/kg, Max dose = 100ml -- "To be infused by Radiology Staff ONLY" Ketamine Notes: Total Inactive [place] Concentration 2015 Medical = 1mg/ml Total Center Volume = 100ml Infusion Rate= Begin Infusion at an initial rate of 0.1mg/kg/hr to a Maximum Rate of 0.25mg/kg/hr Please place a Med Request 2 hours before the next dose is needed. EPINEPHrine 4 mg 250 mL, Rate: No Longer [place] + Sodium Titrate, Active 2014 Medical Chloride 0.9% Dosing Weight Cent er (titrate) 250 mL 110.3, kg, Route: IV, Total Volume: 254, Start Date: 10/26/14 13:54:00, Duration: 30 day, Stop date: 11/25/14 13:53:00, Replace Every: 24 hr Etomidate Notes: (Same Inactive [facility] as: Amidate). 2015 Medical Per state Center nursing law etomidate can only be given by a nurse if patient is intubated or being intubated (unless the nurse is a POULTRY EVISCERATOR). sodium Notes: (sodium Inactive [place] bicarbonate 8.4% bicarb 8.4% (1 2014 Medical mEq/ml) 50 ml Center syringe) Succinylcholine Notes: Same Inactive [facility] as: Anectine 2014 [facility] Fentanyl 1,000 No Longer [facility] microgram, 20 Active 2014 Medical mL, Rate: Center Titrate as directed, Dosing Weight 110.3, kg, Route: IV, Total Volume: 20 mL, Start Date: 10/26/14 13:52:00, Duration: 30 day, Stop date: 11/25/14 13:51:00, Replace Every: 24 hr Midazolam 1 Notes: (Same [place] MG/ML Injectable as: Versed) Active 2014 [facility] ical Solution Center Insulin regular Notes: (Same No Longer [facility] 100 unit + as: Humulin R Active 2014 [facility] Sodium Chloride and NovoLIN R) C enter 0.9% (titrate) (Do not 99 mL shake) Dextrose 50% 6.25 gm, 12.5 No Longer [place] Syringe mL, Route: Active 2014 [facility] IVP, Drug Center Form: INJ, Dosing Weight 110.3, kg, PRN, PRN Abnormal Lab Result, Start date: 10/26/14 13:38:00, Duration: 30 day, Stop date: 11/25/14 13:37:00 nxstage pureflow Notes: Total Inactive [facility] [id number] 5000ml ingredients in 2014 Me dical [...] phosphate 15 mmol, 5 mL, No Longer [place] + Sodium Route: IVPB, Active 2014 Medical Chloride 0.9% IV PRN, Dosing Antionette ter 250 mL Weight 110.3, kg, PRN Abnormal Lab Result, Via central line, Start date: 10/26/14 13:20:00, Duration: 30 day, Stop date: 11/25/14 13:19:00 sodium Notes: (sodium No Longer [facility] s bicarbonate 75 bicarb 8.4% (1 Active 2014 Me dical mEq + Sodium mEq/ml) 50 ml Cente r Chloride 0.45% VL) IV 925 mL vasopressin 80 Notes: (Same No Longer [place] unit + Sodium As: Pitressin) Active 2014 [facility] ical Chloride 0.9% Center (titrate) 246 mL Flagyl Notes: (Same No Longer [facility] as: Flagyl) Active 2014 [facility] Avoid alcohol. Center cefepime Notes: (Same No Longer [facility] As: Maxipime) Active 2014 Medical Center Vancomycin 2001 mg: Inactive [place] infuse over 2015 [facility] 2.5 hours [place] Vancomycin FOR IV SET ONLY PlasmaLyte A 2,000 mL, [place]er [place] PH-7.4 2,000 mL Rate: 2,000 Active 2014 [facility] see ml/hr, Infuse Center over: 1 hr, Route: IV, Dosing Weight 110.3 kg, Total Volume: 2,000, Start date: 10/26/14 9:06:00, Duration: 30 day, Stop date: 11/25/14 9:05:00 Wellbutrin Notes: (Same No Longer [place] as As: Active 2014 Medical Wellbutrin) Center Haldol Notes: (Same Inactive [facility] as: Haldol) 2014 Medical Center Topamax Notes: (Same Inactive [facility] As: Topamax) 2015 Medical "Do Not Crush" [...] capsular polysacchar influenza virus Notes: (Same Inactive [facility] vaccine, as: Fluzone 2014 Medical inactivated Quadrivalent) Center Levophed Notes: Not for No Longer [place] as Bitartrate 32 mg direct Active 2014 Medical + Sodium administration Center Chloride 0.9% - DILUTE. (titrate) 218 mL Protect from light. (Same as:Levophed). Administer by either central venous catheter or peripherally-i nserted central catheter (PICC) line. Albumin Human, Notes: Lot #: Inactive [facility] DETENTION 250 MG/ML 2014 Medi see Injectable Mfg: Center Solution (Same as: Plasbumin-25) "blood product derivative" Protonix Notes: (Same Inactive [facility] as: Protonix) 2014 [facility] Albumin Human, Notes: LOT#: Inactive [facility] DETENTION 50 MG/ML 2014 Medic al Injectable Mfg: Center Solution (Same as: Albuminar) "blood product derivative&quo t; Versed Notes: (Same No Longer [facility] as: Versed) Active 2014 [facility] magnesium 2 gm, 50 mL, Inactive [place] sulfate Route: IVPB, 2014 Medical Drug form: Center INJ, Q2H, Start date: 10/26/14 2:00:00, Duration: 2 doses or times, Stop date: 10/26/14 4:00:00 Iohexol Special Inactive [place] Instructions: 2015 Medical Dose = Center 2.2ml/kg, Max dose = 100ml -- "To be infused by Radiology Staff ONLY" magnesium 4 gm, 100 mL, [place] sulfate Route: IVPB2014 Medical Drug form: Center INJ, ONCE, Start date: 10/26/14 0:44:00, Stop date: 10/26/14 0:44:00 Reglan Notes: (Same No Longer [facility] as: Reglan) Active 2014 [facility] Valproic Acid 1,000 mg, Inactive [place] [...] 10/26/14 0:15:00 Reglan 10 mg, Route: Inactive [facility] IVP, Drug 2014 Medical form: INJ, Center [...] BID, On Hold [place] 0 Refill(s) 2014 [facility] Bupropion 200 mg = 2 On Hold [place] Hydrochloride tab, PO, BID, 2014 Medi see 100 MG Oral 0 Refill(s) [place] Tablet [Wellbutrin] tramadol 50 mg = 1 [...] 0 Active 2014 Medica l [Xarelto] Refill(s) [place] Esomeprazole 40 = 1 tab, PO, Inactive [place] MG Enteric Daily, 0 2014 Medical Coated Capsule Refill(s) [place] [Nexium] 120 ACTUAT 1 spray, Inactive [place] Triamcinolone NASAL, Daily, 2014 [facility] Acetonide 0.055 # 17 gm, 0 Cente r MG/ACTUAT Nasal Refill(s) Inhaler [Nasacort] atorvastatin 80 80 mg = 1 tab, Active H [place] MG Oral Tablet PO, Daily, 0 2014 [facility] see [Lipitor] Refill(s) [place] Haldol 2 mg, PO, BID, On Hold [place] 0 Refill(s) 2014 [facility] Acetaminophen Notes: Max [place]er [place] acetaminophen Active 2014 Medical = 4000mg/day [place] (4 gm/day). (Same as: Tylenol) Sodium Chloride [...] [place] 0.9% as: BD Active 2014 [facility] Posiflush) [place] Ondansetron Notes: (Same [place] Longer [place] as: Zofran) Active [address] [place] [address] NS 1,000 mL 1,000 mL, No Longer [place] Rate: 100 Active 2014 Medical ml/hr, Infuse Center over: 10 hr, Route: IV, Dosing Weight 96.364 kg, Total Volume: 1,000, Start date: 10/25/14 21:30:00, Duration: 30 day, Stop date: 11/24/14 21:29:00 norepinephrine Notes: Not for No Longer [place] 16 mg + Sodium direct Active 2014 Medical Chloride 0.9% administration Antionette ter (titrate) 234 mL - DILUTE. Protect from light. (Same as:Levophed). Administer by either central venous catheter or peripherally-i nserted central catheter (PICC) line. Regular Insulin, 60 units) No Longer H [place] Human 100 UNT/ML Stable for 28 Active 2014 edical Injectable days at room Center Solution temperature Expires in days from Date Dextrose 50% 25 gm, 50 mL, No Longer [place] Syringe Route: IVP, Active 2014 Medical Drug Form: Center INJ, Dosing Weight 96.364, kg, PRN, PRN Abnormal Lab Result, Start date: 10/25/14 21:28:00, Duration: 30 day, Stop date: 11/24/14 21:27:00 Coumadin 2 mg, 1 tab, Inactive [facility] Route: PO, 2013 Medical Drug form: Center TAB, Q5PM, Start date: 11/14/13 17:00:00, Duration: 1 doses or times, Stop date: 11/14/13 17:00:00Nurse to ensure documentation of patient education per anticoagulatio n policy. Avoid large intake of vitamin-K containing foods diet. (Same As: Coumadin) Warfarin 5 mg, 1 tab, Inactive [facility] Route: PO, 2013 Medical Drug form: Center [...] Levetiracetam 500 mg, 1 tab, No Longer 11/14[facility] [place] 500 MG Oral Route: PO, Active 2013 Medical Tablet [Keppra] Drug form: Cente r TAB, Q12H, Dosing Weight 96.364, kg, Start date: 11/14/13 13:00:00, Duration: 30 day, Stop date: 12/14/13 9:00:00(Same as:Keppra) pneumococcal 0.5 ml, Route: Inactive 11/14[facility] Oxana capsular IM, Drug Form: 2013 Medical [...] Route: PO, Active 2013 Medical Drug form: [place] CAP, Bedtime, Dosing Weight 96.364, kg, PRN Insomnia, Start date: 11/13/13 22:09:00, Duration: 1 day, Stop date: 11/14/13 22:08:00(Same as: Benadryl) atorvastatin 80 mg, 2 tab, No Longer [place] Route: PO, Active 2013 Medical Drug form: [place] TAB, Bedtime, Dosing Weight 96.364, kg, Start date: 11/13/13 21:00:00, Duration: 30 day, Stop date: 12/12/13 21:00:00(Same as: Lipitor) Coumadin 5 mg, 1 tab, Inactive [place] Route: PO2013 Medical Drug form: [place] TAB, Q5PM, Dosing Weight 96.364, kg, Start date: 11/13/13 17:00:00, Duration: 1 doses or times, Stop date: 11/13/13 17:00:00Nurse to ensure documentation of patient education per anticoagulatio n policy. Avoid large intake of vitamin-K containing foods diet. (Same As: Coumadin) Ativan 0.5 mg, 1 tab, Inactive [place] Route: PO2013 Medical Drug form: [place] TAB, ONCE, Dosing Weight 96.364, kg, Start date: 11/13/13 16:00:00, Stop date: 11/13/13 16:00:00(Same as: Ativan) Ativan 0.5 mg, 1 tab, Inactive [facility] Route: PO2013 Medical Drug form: [place] TAB, ONCE, Dosing Weight 96.364, kg, Start date: 11/13/13 15:08:00, Stop date: 11/13/13 15:08:00(Same as: Ativan) atorvastatin 80 80 mg = 1 tab, No Longer [place] MG Oral Tablet PO, Bedtime Active 2013 Medic al [Lipitor] [place] Thiothixene 5 MG 5 mg = 1 cap, Active H [place] Oral Capsule PO, BID, # 60 2013 Medic al [Navane] cap [place] haloperidol 5 mg 5 mg = 1 tab, Active H [place] oral tablet PO, BID, # 60 2013 Medica l tab Center Sertraline 100 100 mg = 1 Active [place] MG Oral Tablet tab, PO, BID, 2013 Med ical [Zoloft] # 60 tab [place] 12 HR Bupropion 200 mg = 1 [place] Hydrochlor[place] tab, PO, BID, 2013 Medi see 200 MG Extended # 60 tab Center Release Tablet [Wellbutrin] lisinopril 40 mg 40 mg = 1 tab, Active [facility] oral tablet PO, Daily 2013 [facility] verapamil 300 300 mg = 1 Active [place] mg/24 hours oral cap, PO, Daily 2013 [facility]ly [facility] extended release Saline Flush 5 ml, Route: No Longer [place] 0.9% IVP, Drug Active 2013 Medical Form: INJ, [place] Dosing Weight 96.364, kg, Q12H, Start date: 11/13/13 9:00:00, Duration: 30 day, Stop date: 12/12/13 21:00:00(Same as: BD Posiflush) Aspirin 325 MG 325 mg, 1 tab, Inactive [facility] Enteric Coated Route: PO, 2013 Medica l Tablet Drug form: [place] ECTAB, Daily, Dosing Weight 96.364, kg, Start date: 11/13/13 9:00:00, Duration: 30 day, Stop date: 12/12/13 9:00:00(Do Not Crush) Do not crush or chew. Versed 1 mg, 1 mL, No Longer [facility] Route: IV, Active 2013 Medical Drug form: [place] INJ, PRN, Dosing Weight 96.364, kg, PRN Other -See Comment, Start date: 11/13/13 7:06:00, Duration: 30 day, Stop date: 12/13/13 7:05:00(Same as: Versed) Iohexol 85 mL, Route: Inactive [facility] IVP, Drug 2013 Medical Form: [facility] Dosing Weight 96.364, kg, ONCALL, STAT, Start date: 11/13/13 6:04:00, Duration: 1 doses or times, Stop date: 11/14/13 0:00:00, Dose = 2.2ml/kg, Max dose = 100ml -- "To be infused by Radiology Staff ONLY"(Same as:Omnipaque 350). Enoxaparin 40 mg, 0.4 mL, [place] Route: SUB-Q, 2013 Medical Drug form: Center INJ, [id number], Dosing Weight 96.364, kg, Start date: 11/13/13 [...] Acetaminophen 650 mg, 2 tab, No Longer [facility] Route: PO, Active 2013 Medical Drug form: [...] 12/13/13 5:14:00 Coumadin 7 mg, PO, Active [place] Daily, 0 2013 Medical Refill(s) Center Saline Flush 5 mL, Route: No Longer [place] 0.9% IVP, Drug Active 2013 Medical Form: INJ, Center Dosing Weight 96.364, kg, PRN, PRN Line Flush, Start date: 11/13/13 3:58:00, Duration: 30 day, Stop date: 12/13/13 3:57:00preserv ative free. Navane 2 mg oral 2 mg, PO, BID, PO Active [facility] 05/12[facility] [place] capsule 60 tab, 2012 Medical Substitution Center Allowed, CAP Zoloft 100 mg 100 mg, 1 tab, PO Active [facility] 05/12[facility] [place] oral tablet PO, BID, 60 2012 Medical tab, Center Substitution Allowed, TAB haloperidol 2 mg 2 mg, 1 tab, PO Active [facility] 05/12[facility] [place] oral tablet PO, BID, 60 2012 Medical tab, Center Substitution Allowed Wellbutrin 100 100 mg, 1 tab, PO Active [facility] 05/12[facility] [place] mg oral tablet PO, BID, 60 2012 Medic al tab, Center Substitution Allowed, TAB Levaquin 750 mg 750 mg, 1 tab, PO Active [facility] 05/12[facility] H [place] oral tablet PO, Q24H, 7 2012 Medical tab, Center Substitution Allowed, TAB Flagyl ER 750 mg 750 mg, 1 tab, PO No Longer [facility] 05/12[facility] oral tablet, PO, Daily, 7 Active 2012 Medica l extended release tab, [place] Substitution Allowed, ERTAB metoprolol 50 mg, 1 tab, PO No Longer [facility] 05/12[facility] [place] tartrate Route: PO, Active 2012 Medical Drug form: [place] TAB, Q12H, Dosing Weight 98.182, kg, Start date: 05/11/13 21:00:00, Duration: 30 day, Stop date: 06/10/13 9:00:00 Multiple 1 cap, PO, PO Active [facility] 05/11[facility] [place] Vitamins oral Daily, 30 cap, 2012 Med ical capsule Substitution Center Allowed, Maintenance, CAP atorvastatin 80 80 mg, 1 tab, PO Active [facility] 05/11[facility] [place] mg oral tablet PO, Bedtime, 2012 Medi see 30 tab, Center Substitution Allowed, TAB aspirin 81 mg 81 mg, 1 tab, PO Active [facility] 05/11[facility] [place] tablet, enteric PO, Daily, 30 2012 Me dical coated tab, Center Substitution Allowed, ECTAB metoprolol 25 mg, 1 tab, PO No Longer [facility] [place] tartrate Route: PO, Active 2012 Medical Drug form: [place] TAB, ONCE, Dosing Weight 98.182, kg, Priority: STAT, Start date: 05/11/13 8:38:00, Stop date: 05/11/13 8:38:00 Flagyl 500 mg, 100 IVPB No Longer [facility] mL, Route: Active 2012 Medical IVPB, Drug Center form: INJ, [id number], Dosing Weight 98.182, kg, Start date: 05/10/13 18:00:00, Duration: 30 day, Stop date: 06/09/13 10:00:00 azithromycin + 500 mg, Route: IVPB No Longer [facility] [place] Sodium Chloride IVPB, [id number], Active 2012 M edical 0.9% IV 250 mL Dosing Weight Antionette ter 98.182, kg, Start date: 05/10/13 18:00:00, Duration: 30 day, Stop date: 06/08/13 18:00:00 Neutra-Phos 1 pkt, Route: PO No Longer [facility] [place] PO, Drug Form: Active 2012 Medical PDR/REC, Center Dosing Weight 98.182, kg, ONCE, Start date: 05/10/13 17:45:00, Stop date: 05/10/13 17:45:00 magnesium 1 gm, Route: IVPB No Longer [facility] [place] sulfate IVPB, Drug Active 2012 Medical form: INJ, Center ONCE, Dosing Weight 98.182, kg, Start date: 05/10/13 17:45:00, Stop date: 05/10/13 17:45:00 heparin 5,000 unit, 1 SUB-Q No Longer [facility] mL, Route: Active 2012 Medical SUB-Q, Drug Center form: INJ, Q8H, Dosing Weight 98.182, kg, Start date: 05/10/13 16:00:00, Duration: 30 day, Stop date: 06/09/13 8:00:00 aspirin 81 mg, 1 tab, PO No Longer [facility] Route: PO, Active 2012 Medical Drug form: Center ECTAB, Daily, Dosing Weight 98.182, kg, Start date: 05/10/13 13:00:00, Duration: 30 day, Stop date: 06/09/13 9:00:00 azithromycin 250 250 mg, 1 tab, PO No Longer [facility] mg oral tablet Route: PO, Active 2012 Medica l Drug form: Center TAB, [id number], Dosing Weight 98.182, kg, Start date: 05/10/13 8:00:00, Duration: 4 doses or times, Stop date: 05/13/13 8:00:00 Versed 1 mg, 1 mL, IV No Longer [place] Route: IV, Active 2012 Medical Drug form: [place] INJ, ONCE, Dosing Weight 98.182, kg, Start date: 05/10/13 7:41:00, Stop date: 05/10/13 7:41:00 magnesium 2 gm, 50 mL, IVPB [place] Longer [place] sulfate Route: IVPB, Active 2012 Medical Drug form: [place] INJ, Q2H, Dosing Weight 98.182, kg, Total Dose = 4 gm, Start date: 05/10/13 6:00:00, Duration: 2 doses or times, Stop date: 05/10/13 8:00:00, For Mg = 1.5 - 1.7 mg/dLFor Mg = 1.5 - 1.7 mg/dL Lipitor 80 mg, 1 tab, PO No Longer [place] Route: PO, Active 2012 Medical Drug form: [place] TAB, Bedtime, Dosing Weight 113.636, kg, Start date: 05/09/13 21:00:00, Duration: 30 day, Stop date: 06/07/13 21:00:00 Mag-Ox 400 400 mg, 1 tab, PO No Longer [place] Route: PO, Active 2012 Medical Drug form: [place] TAB, On Adm, Start date: 05/09/13 19:00:00, Duration: 1 doses or times, Stop date: 05/09/13 21:00:00 magnesium oxide 500 mg, Route: PO No Longer [place] base 500 mg oral PO, Drug form: Active 2012 Medical tablet TAB, ONCE, [place] Dosing Weight 98.182, kg, Start date: 05/09/13 18:08:00, Stop date: 05/09/13 18:08:00 thiamine 100 mg, 1 tab, PO No Longer [place] Route: PO, Active 2012 Medical Drug form: [place] TAB, Daily, Dosing Weight 98.182, kg, Start date: 05/09/13 9:00:00, Duration: 30 day, Stop date: 06/07/13 9:00:00 folic acid 1 mg, 1 tab, PO No Longer [place] 05/09[facility] [place] Route: PO, Active 2012 Medical Drug form: Center TAB, Daily, Dosing Weight 98.182, kg, Start date: 05/09/13 9:00:00, Duration: 30 day, Stop date: 06/07/13 9:00:00 multivitamin 1 tab, Route: PO No Longer [place] 05/09[facility] PO, Drug Form: Active 2012 Medical TAB, Dosing Center Weight 98.182, kg, Daily, Start date: 05/09/13 8:10:00, Duration: 30 day, Stop date: 06/07/13 9:00:00 heparin 5,000 unit, 1 SUB-Q No Longer [facility] mL, Route: Active 2012 Medical SUB-Q, Drug [place] form: INJ, Q8H, Dosing Weight 98.182, kg, Start date: 05/09/13 8:00:00, Duration: 30 day, Stop date: 06/08/13 0:00:00 Plavix 75 mg, 1 tab, PO No Longer [place] [facility] Route: PO, Active 2012 Medical Drug form: Center TAB, Daily, Dosing Weight 98.182, kg, Start date: 05/09/13 8:00:00, Duration: 30 day, Stop date: 06/07/13 9:00:00 Rocephin 1 gm, Route: IVPB No Longer [place] 05/09[facility] IVPB, Drug Active 2012 Medical form: PDR/INJ, Center [id number], Dosing Weight 98.182, kg, Start date: 05/09/13 8:00:00, Duration: 4 doses or times, Stop date: 05/13/13 8:00:00 insulin regular 3 unit, 0.03 SUB-Q No Longer [facility] 05/09[facility] 100 units/mL mL, Route: Active 2012 Medical [...] NEB, Active [place] 2012 Medical Drug form: [place] SOLN, PRN, Dosing Weight 113.636, kg, PRN Respiratory Protocol, Start date: 05/08/13 21:59:00, Duration: 30 day, Stop date: 06/07/13 21:58:00 Tylenol 325 mg, 1 tab, PO No Longer [place] Route: PO, Active [place] 2012 Medical Drug form: [place] TAB, Q4H, Dosing Weight 113.636, kg, PRN Pain, Start date: 05/08/13 21:58:00, Duration: 30 day, Stop date: 06/07/13 21:57:00 Saline Flush 5 ml, Route: IVP No Longer [place] 0.9% IVP, Drug Active [place] 2012 Medical Form: INJ, [place] Dosing Weight 113.636, kg, Q12H, Start date: 05/08/13 21:00:00, Duration: 30 day, Stop date: 06/07/13 9:00:00 docusate 100 mg, 1 cap, PO No Longer [place] Route: PO, Active [place] 2012 Medical Drug form: [place] CAP, Q12H, Dosing Weight 113.636, kg, Start [...] 0.5 ml, Route: IM No Longer [facility] vaccine, IM, Drug Form: Active 2011 Medical inactivated INJ, Start Center date: 07/21/12 12:08:00, Stop date: 07/21/12 12:08:00 verapamil 80 mg 80 mg, 1 tab, PO Active [facility] oral tablet PO, TID, 90 2011 Medical tab, 3, 3, Center Substitution Allowed, TAB Haldol 2 mg, 2 tab, PO No Longer [facility] Route: PO, Active 2011 Medical Drug form: Center TAB, Daily, Dosing Weight 113.636, kg, Start date: 07/21/12 9:00:00, Duration: 30 day, Stop date: 08/19/12 9:00:00 aspirin 325 mg, 1 tab, PO No Longer [place] Route: PO, Active 2011 Medical Drug form: [place] TAB, Daily, Dosing Weight 113.636, kg, Start [...] Route: PO, Active 2011 Medical Drug form: [place] TAB, Q12H, Dosing Weight 113.636, kg, Start date: 07/20/12 23:00:00, Duration: 30 day, Stop date: 08/19/12 11:00:00 clonidine 0.1 mg, 1 tab, PO [place] Long[place] Route: PO, Active 2011 Medical Drug form: [place] TAB, Q8H-05, Dosing Weight 113.636, kg, Start date: 07/20/12 21:00:00, Duration: 30 day, Stop date: 08/19/12 13:00:00 Lipitor 40 mg, 1 tab, PO No Longer [place] Route: PO, Active 2011 Medical Drug form: [place] TAB, QPM, Dosing Weight 113.636, kg, Start date: 07/20/12 17:00:00, Duration: 30 day, Stop date: 08/18/12 17:00:00 NS (Bolus) IV 500 mL, Rate: IV No Longer [facility] 500 mL 500 ml/hr, Active 2011 Medical Infuse over: 1 Center hr, Route: IV, kg, Total Volume: 500, Priority: STAT, Start date: 07/20/12 16:31:00, Duration: 1 doses or times, Stop date: 07/20/12 17:30:00, Bolus DoseBolus Dose caffeine 300 mg, 1.5 PO No Longer e [place] tab, Route: Active 2011 Medical PO, Drug form: [place] TAB, ONCE, Start date: 07/20/12 15:30:00, Stop date: 07/20/12 15:30:00 aspirin 81 mg, 1 tab, PO No Longer [place] Route: PO, Active 2011 Medical Drug form: [place] ECTAB, Daily, Dosing Weight 113.636, kg, Start date: 07/20/12 15:00:00, Duration: 30 day, Stop date: 08/19/12 9:00:00 Zofran 4 mg, 2 mL, IV No Longer [facility] Route: IV, Active 2011 Medical Drug form: [place] INJ, Q6H, Dosing Weight 113.636, kg, PRN Nausea, Start date: 07/20/12 13:23:00, Duration: 30 day, Stop date: 08/19/12 13:22:00 caffeine-sodium 250 mg, 1 mL, IVPB No Longer [facility] benzoate + Route: IVPB, Active 2011 Medical Sodium Chloride Drug form: Cente r 0.9% IV 1,000 mL INJ, ONCE, Dosing Weight 113.636, kg, Start date: 07/20/12 13:20:00, Stop date: 07/20/12 13:20:00 Navane 20 mg, 4 cap, PO No Longer [facility] Route: PO, Active 2011 Medical Drug form: [place] CAP, Daily, Dosing Weight 113.636, kg, Start date: 07/20/12 9:00:00, Duration: 30 day, Stop date: 08/18/12 9:00:00 clonidine 0.1 mg, Route: PO No Longer [facility] [place] PO, Drug form: Active 2011 Medical TAB, TID, [place] Dosing Weight 113.636, kg, Start date: 07/20/12 9:00:00, Duration: 30 day, Stop date: 08/18/12 17:00:00 Haldol 2 mg, 1 tab, PO No Longer [facility] Route: PO, Active 2011 Medical Drug form: [place] TAB, Daily, Dosing Weight 113.636, kg, Start date: 07/20/12 9:00:00, Duration: 30 day, Stop date: 08/18/12 9:00:00 Zoloft 100 mg, 1 tab, PO No Longer [facility] [place] Route: PO, Active 2011 Medical Drug form: [place] TAB, Daily, Dosing Weight 113.636, kg, Start date: 07/20/12 9:00:00, Duration: 30 day, Stop date: 08/18/12 9:00:00 Wellbutrin 300 mg, 2 tab, PO No Longer [facility] [place] Route: PO, Active 2011 Medical Drug form: [place] ERTAB, Daily, Dosing Weight 113.636, kg, Start [...] IVP, Drug Active 2011 Medical Form: INJ, [place] Dosing Weight 113.636, kg, Q12H, Start date: 07/19/12 21:00:00, Duration: 30 day, Stop date: 08/18/12 9:00:00 famotidine 20 mg, 1 tab, PO No Longer [place] Route: PO, Active 2011 Medical Drug form: [place] TAB, Q12H, Dosing Weight 113.636, kg, Start date: 07/19/12 21:00:00, Duration: 30 day, Stop date: 08/18/12 9:00:00 Visipaque 100 mL, Route: IVP No Longer [place] 320mg/ml IVP, Drug Active 2011 Medical Form: [facility] Dosing Weight 113.636, kg, ONCALL, STAT, Start date: 07/19/12 14:56:00, Duration: 1 doses or times, Dose = 2.2ml/kg, Max dose = 150mlDose = 2.2ml/kg, Max dose = 150ml enoxaparin 40 mg, 0.4 mL, SUB-Q [facility] [place] [facility]: SUB-Q, Active 2011 Medical Drug form: [place] INJ, Q24H, Dosing Weight 113.636, kg, Start date: 07/19/12 11:00:00, Duration: 30 day, Stop date: 08/17/12 11:00:00 hydromorphone 1 mg, 0.5 mL, IVP No Longer [facility] Route: IVP, Active 2011 Medical Drug form: [place] INJ, ONCE, Dosing Weight 113.636, kg, Priority: STAT, Start date: 07/19/12 10:49:00, Stop date: 07/19/12 10:49:00 Plavix 75 mg, 1 tab, PO No Longer [place] Route: PO, Active 2011 Medical Drug form: [place] TAB, Daily, Dosing Weight 113.636, kg, Priority: STAT, Start date: 07/19/12 10:17:00, Duration: 30 day, Stop date: 08/18/12 9:00:00 Saline Flush 5 ml, Route: IVP [facility] Longer [facility] [place] 0.9% IVP, Drug Active 2011 Medical Form: INJ, [place] Dosing Weight 113.636, kg, PRN, PRN Line Flush, Start date: 07/19/12 10:05:00, Duration: 30 day, Stop date: 08/18/12 10:04:00 acetaminophen 650 mg, 2 tab, PO No Longer [facility] Route: PO, Active 2011 Medical Drug form: [place] TAB, Q4H, Dosing Weight 113.636, kg, PRN Pain/Fever, Start date: 07/19/12 10:05:00, Duration: 30 day, Stop date: 08/18/12 10:04:00 Sodium Chloride 1,000 mL, IV [facility] [place] 0.9% IV 1,000 mL Rate: 75 Active 2011 Medica l ml/hr, Infuse Center over: 13.3 hr, Route: IV, kg, Total Volume: 1,000, Start date: 07/19/12 10:05:00, Duration: 30 day, Stop date: 08/18/12 10:04:00 Navane 20 mg, PO, PO Active [facility] , 2011 Medical Substitution Center Allowed Haldol 2 mg, PO, PO Active [facility] Daily, 2011 Medical Substitution Center Allowed Wellbutrin 300 mg, PO, PO Active [facility] Daily, 2011 Medical Substitution Center Allowed Zoloft 100 mg, PO, PO Active [facility] Daily, 2011 Medical Substitution Center Allowed clonidine 0.3 mg, PO, PO Active [facility] TID2011 Medical Substitution Center Allowed promethazine 25 mg, 1 mL, IVPB No Longer [place] 07/19[facility] Route: IVPB, Active 2011 Medical Drug form: Center INJ, ONCE, Dosing Weight 113.636, kg, Priority: STAT, Start date: 07/19/12 6:57:00, Stop date: 07/19/12 6:57:00 hydromorphone 1 mg, 0.5 mL, IVP No Longer [place] 07/19/ [facility] Route: IVP, Active 2011 Medical Drug form: Center INJ, ONCE, Dosing Weight 113.636, kg, Priority: STAT, Start date: 07/19/12 6:56:00, Stop date: 07/19/12 6:56:00 Allergies, Adverse Reactions, Alerts Substance Category Reaction Severity Reaction Status Date Comments S ource type Reported Compazine Assertion Drug Active [facility] Depakote Assertion Drug Active [place] [facility] labetalol Assertion Drug Active [facility] NSAIDs Assertion Drug Active Tommy as [facility] Stadol Assertion Drug Active [place] as [facility] Toradol Assertion Drug Active [place] as [facility] Vicoprofen Assertion Drug Active [facility] Immunizations Immunization Date Given Site Status Last Comments Source Updated influenza virus 10/28/2014 Left completed [facility] pneumococcal 11/14/2013 Right completed Keegan [place] as 23-valent vaccine [facility] dical Center influenza virus 07/21/2012 Right completed [facility] vaccine, Deltoid Medical inactivated Center influenza virus 07/21/2012 completed [place] vaccine, Medical inactivated Center influenza virus 07/21/2012 Not Given [facility] vaccine, Medical inactivated [place] influenza virus 07/21/2012 Not Given [place] [facility] vaccine, Medical inactivated [place] Results Order Name Results Value Reference Date Interpretation Comments Manda rce Range CHEM PANEL Phosphorus 2.6 2.5 - 4.5 03/12 [facility] CHEM PANEL eGFR 101 03/12 Result Comment: [...] Calcium Lvl 8.2 8.5 - 10.5 03/12 [facility] CHEM PANEL Glucose Lvl 97 70 - 99 03/[address] CHEM PANEL Potassium Lvl 3.3 3.5 - 5.1 03/12 [facility]2018 [facility] CHEM PANEL Chloride Lvl 110 95 - 109 03/12 [facility]2018 [facility] CHEM PANEL AGAP 15.3 10.0 - 03/12 [facility] 20.0 [facility] CHEM PANEL CO2 21 24 - 32 03/[address] CHEM PANEL BUN 5 7 - 22 03/[address] CHEM PANEL Creatinine 0.64 0.50 - 03/12 [place] Lvl 1.40 [facility] CHEM PANEL Sodium Lvl 143 135 - 145 03/[address] CHEM PANEL Magnesium Lvl 1.9 1.8 - 2.4 03/[address] HEMATOLOGY Basophils # 0.1 0.0 - 0.2 03/[address] HEMATOLOGY Eosinophils 3.0 0.0 - 4.0 03/[address] HEMATOLOGY Basophils 1.2 0.0 - 1.0 03/[address] HEMATOLOGY Segs 62.0 45.0 - 03/12 [facility] 75.0 [facility] HEMATOLOGY Lymphocytes # 2.6 1.0 - 5.5 03/[address] HEMATOLOGY Monocytes # 0.4 0.0 - 0.8 03/[place] [facility] HEMATOLOGY Lymphocytes 29.6 20.0 - 03/12 40.0 [facility] HEMATOLOGY Monocytes 4.2 2.0 - 12.0 03/12 [facility] HEMATOLOGY Eosinophils # 0.3 0.0 - 0.5 03/12 [facility] HEMATOLOGY Neutrophils # 5.5 1.5 - 8.1 03/12 [facility] HEMATOLOGY RBC 3.64 4.20 - 03/12 [place] 5.40 [facility] HEMATOLOGY Hgb 10.5 12.0 - 03/12 16.0 [facility] HEMATOLOGY Platelet 194 133 - 450 03/12 [facility] HEMATOLOGY MPV 8.0 7.4 - 10.4 03/12 [facility] HEMATOLOGY RDW 16.7 11.5 - 03/12 14.5 [facility] HEMATOLOGY WBC 8.9 3.7 - 10.4 03/12 [facility] HEMATOLOGY MCH 29.0 27.0 - 03/12 31.0 [facility] HEMATOLOGY MCHC 32.7 32.0 - 03/12 36.0 [facility] HEMATOLOGY MCV 88.4 80.0 - 03/12 98.0 [facility] HEMATOLOGY Hct 32.2 36.0 - 03/12 48.0 [facility] PARATHYROID Ca Ion WB 1.05 1. - 03/12 [facility] PROFILE 09.11 [facility] PARATHYROID Ca Norm WB 1.05 1.05 - 03/12 [facility] PROFILE 09.11 [facility] CHEM PANEL eGFR 83 03/11 Result Comment: [...] CHEM PANEL AGAP 11.4 10.0 - 03/11 [facility] 20.0 [facility] CHEM PANEL Calcium Lvl 8.2 8.5 - 10.5 03/11 [place] [facility] CHEM PANEL CO2 25 24 - 32 03/11 [facility]2018 [facility] CHEM PANEL Chloride Lvl 110 95 - 109 03/11 [facility] CHEM PANEL Potassium Lvl 3.4 3.5 - 5.1 03[place]11 [place] [facility] CHEM PANEL Creatinine 0.80 0.50 - 03/11 [facility] Lvl 1.40 [facility] CHEM PANEL Sodium Lvl 143 135 - 145 03/11 [facility]2018 [facility] CHEM PANEL Glucose Lvl 142 70 - 99 03/11 [facility] CHEM PANEL BUN 4 7 - 22 03/11 [facility] PARATHYROID Ca Norm WB 1.07 1.05 - 03/11 [facility] PROFILE 1. [facility] PARATHYROID Ca Ion WB 1.07 1.05 - 03/11 [facility] . [facility] URINE AND UA WBC 4 0 - 5 03/11 [facility] STOOL [facility] URINE AND UA Leuk Est Negative Negative 03/11 [facility] (03/11/19 4:57 PM) [facility] URINE AND UA Sq Epi Few /LPF Few /LPF 03/11 [facility] URINE AND UA <1.0 0.1 - 1.0 03/11 [facility] Urobilinogen /2018 [facility] URINE AND UA Nitrite Negative Negative 03/11 [facility] (03/11/19 4:57 PM) [facility] URINE AND UA Bili Negative Negative 03/11 [facility] STOOL *NA* /2018 [facility] (03/11/19 4:57 PM) [place] URINE AND UA Blood Negative Negative 03/11 [facility] (03/11/19 4:57 PM) [facility] URINE AND UA Ketones Trace Negative 03/11 [facility] mg/dL mg/dL [facility] URINE AND UA Mucus Few /LPF None Seen 03/11 [facility] STOOL /LPF [facility] URINE AND UA RBC 1 0 - 2 03/11 [facility] URINE AND UA Bacteria Few /HPF None Seen 03/11 [facility] ST[facility] /HPF [facility] URINE AND UA Color Yellow Yellow 03/11 [facility] *NA* [facility] (03/11/19 4:57 PM) [place] URINE AND UA Turbidity Slight Clear 03/11 [facility] *ABN* [facility] (03/11/19 4:57 PM) [place] URINE AND UA Spec Grav 1.016 <=1.030 03/11 [facility] URINE AND UA Protein 30 mg/dL Negative 03/11 [facility] mg/dL [facility] URINE AND UA pH 8.0 5.0 - 8.0 03/11 [facility] URINE AND UA Glucose Negative Negative 03/11 [facility] mg/dL mg/dL [facility] URINE CHEM U Potassium 7.4 03/11 [facility] URINE CHEM U Chloride 125 03/11 [facility] URINE CHEM U Sodium 192 03/11 [facility] URINE CHEM U Osmolality 528 300 - 800 03/11 [place] [facility] URINE CHEM U Preg Negative Negative 03/11 [facility] (03/11/19 4:57 PM) [facility] CHEM PANEL eGFR 109 03/11 Result Comment: [...] Lvl 2.9 3.5 - 5.1 03/11 Result [facility] Comment: [facility] Result(s) called to Alaina Rosa at 03/11/2019 06:03 by . Read back OK. CHEM PANEL Sodium Lvl 140 135 - 145 03/11 [facility] CHEM PANEL Creatinine 0.51 0.50 - 03/11 [place] Lvl 1.40 [facility] CHEM PANEL BUN 4 7 - 22 03/11 [facility] CHEM PANEL Glucose Lvl 79 70 - 99 03/11 [facility] CHEM PANEL Calcium Lvl 7.6 8.5 - 10.5 03/11 [facility] CHEM PANEL AGAP 9.9 10.0 - 03/11 20. [facility] CHEM PANEL CO2 27 24 - 32 03/11 [facility] CHEM PANEL Chloride Lvl 106 95 - 109 03/11 [facility] CHEM PANEL Phosphorus 3.7 2.5 - 4.5 03/11 [facility] CHEM PANEL Magnesium Lvl 2.0 1.8 - 2.4 03/11 [facility] HEMATOLOGY MPV 8.1 7.4 - 10.4 03/11 [facility] HEMATOLOGY Platelet 163 133 - 450 03/11 [facility] HEMATOLOGY RDW 16.6 11.5 - 03/11 14.5 [facility] HEMATOLOGY MCH 29.0 27.0 - 03/11 31.0 [facility] HEMATOLOGY MCHC 33.0 32.0 - 03/11 36.0 [facility] HEMATOLOGY RBC 3.64 4.20 - 03/11 5.40 [facility] HEMATOLOGY Hgb 10.6 12.0 - 03/11 16.0 [facility] HEMATOLOGY WBC 9.3 3.7 - 10.4 03/11 [facility] HEMATOLOGY MCV 87.8 80.0 - 03/11 [place] 98.0 2019 [facility] HEMATOLOGY Hct 32.0 36.0 - 03/11 [place] 48.0 [facility] HEMATOLOGY Eosinophils 4.0 0.0 - 4.0 03/11 [facility] /2019 [facility] HEMATOLOGY Segs 62.5 45.0 - 03/11 [place] 75.0 2019 [facility] HEMATOLOGY Lymphocytes 27.8 20.0 - 03/11 [place] 40.0 [facility] HEMATOLOGY Monocytes 4.5 2.0 - 12.0 03/[address] HEMATOLOGY Neutrophils # 5.8 1.5 - 8.1 03/11 [facility]2018 [facility] HEMATOLOGY Lymphocytes # 2.6 1.0 - 5.5 03/[address] HEMATOLOGY Monocytes # 0.4 0.0 - 0.8 03/11 [facility]2018 [facility] HEMATOLOGY Eosinophils # 0.4 0.0 - 0.5 03/11 [facility]2018 [facility] HEMATOLOGY Basophils 1.2 0.0 - 1.0 03/[address] HEMATOLOGY Basophils # 0.1 0.0 - 0.2 03/11 [facility]2018 [facility] PARATHYROID Ca Ion WB 0.91 1.05 - 03/11 [facility] PROFILE 1. [facility] PARATHYROID Ca Norm WB 0.96 1.05 - 03/11 [facility] PROFILE 1. [facility] HEMATOLOGY Eosinophils # 0.3 0.0 - 0.5 03/[address] HEMATOLOGY Monocytes # 0.4 0.0 - 0.8 03/10 [facility]2018 [facility] HEMATOLOGY Lymphocytes # 2.8 1.0 - 5.5 03/[address] HEMATOLOGY Basophils # 0.1 0.0 - 0.2 03/10 [facility]2018 [facility] HEMATOLOGY Segs 61.6 45.0 - 03/10 [place] 75.0 2019 [facility] HEMATOLOGY Lymphocytes 29.1 20.0 - 03/10 [facility] 40.0 2019 [facility] HEMATOLOGY Basophils 1.2 0.0 - 1.0 03/[address] HEMATOLOGY Monocytes 4.5 2.0 - 12.0 03/[address] HEMATOLOGY Neutrophils # 5.8 1.5 - 8.1 03/[address] HEMATOLOGY Eosinophils 3.6 0.0 - 4.0 03/10 [facility]2018 [facility] HEMATOLOGY MPV 7.9 7.4 - 10.4 03/10 [facility] HEMATOLOGY Hct 34.6 36.0 - 03/10 [place] 48.0 /2018 [facility] HEMATOLOGY MCH 28.6 27.0 - 03/10 [place] 31.0 [facility] HEMATOLOGY MCV 88.5 80.0 - 03/10 [place] 98.0 [facility] HEMATOLOGY Platelet 162 133 - 450 03/10 [facility] HEMATOLOGY RDW 16.7 11.5 - 03/10 [place] 14.5 [facility] HEMATOLOGY MCHC 32.3 32.0 - 03/10 [place] 36.0 [facility] HEMATOLOGY Hgb 11.2 12.0 - 03/10 [place] 16.0 [facility] HEMATOLOGY RBC 3.91 4.20 - 03/10 [facility] 5.40 [facility] HEMATOLOGY WBC 9.5 3.7 - 10.4 03/10 [facility] HEMATOLOGY INR 1.06 0.85 - 03/10 [place] 1.17 [facility] HEMATOLOGY PT 13.6 12.0 - 03/10 [place] 14.7 [facility] HEMATOLOGY PTT 36.3 22.9 - 03/10 [place] 35.8 [facility] CARDIAC Troponin-I 0.30 0.00 - 03/10 [facility] ENZYMES 0.40 [facility] CHEM PANEL Phosphorus 1.6 2.5 - 4.5 03/10 [facility] CHEM PANEL Magnesium Lvl 2.1 1.8 - 2.4 03/10 [place] [facility] LIPIDS VLDL 39 03/10 [facility] LIPIDS LDL 36 <=99 mg/dL 03/10 [facility] (Calculated) [facility] LIPIDS HDL 28 >=61 mg/dL 03/10 [facility] LIPIDS Trig 195 <=149 03/10 [facility] mg/dL [facility] LIPIDS Chol 103 <=199 03/10 [facility] mg/dL [facility] LIPIDS CHD Risk 3.68 3.90 - 03/10 [place] 5.80 [facility] SPECIAL Hgb A1C 4.8 <=5.6 % 03/10 [facility] CHEMISTRY [facility] ANEMIA Vitamin B12 267 254 - 1320 03/10 [facility] STUDY Lvl /2018 [facility] ANEMIA Folate Lvl 4.4 >=3.0 07/24 [place] STUDY ng/mL /2018 [facility] CARDIAC BNP 10 <=100 03/10 [facility] ENZYMES pg/mL [facility] CHEM PANEL Osmolality 294 280 - 300 03/10 [facility] HEMATOLOGY PTT 42.4 22.9 - 03/10 [place] 35.8 [facility] HEMATOLOGY PT 13.5 12.0 - 03/10 [place] 14.7 [facility] HEMATOLOGY INR 1.05 0.85 - 03/10 [place] [facility] CARDIAC Troponin-I 0.48 0.00 - 03/10 [facility] ENZYMES 0.40 [facility] CARDIAC Troponin-I 0.50 0.00 - 03/09 Result [facility] ENZYMES 0.40 Comment: [facility] Result(s) called to Dr. Ezekiel Tran at 03/09/2019 18:01 by AC. Read back OK. CARDIAC Total CK 63 12 - 191 03/09 [facility] ENZYMES [facility] CHEM PANEL Lactic Acid 1.2 0.5 - 2.2 03/09 [place] [facility] HEMATOLOGY PTT 31.7 22.9 - 03/09 [place] 35.8 [facility] HEMATOLOGY INR 1.07 0.85 - 03/09 [place] 09.03 [facility] HEMATOLOGY PT 13.7 12.0 - 03/09 [facility] 14 [facility] CHEM PANEL Phosphorus 3.5 2.5 - 4.5 03/22 [facility] CHEM PANEL Magnesium Lvl 1.8 1.8 - 2.4 03/22 [place] [facility] ELECTROLYTE CO2 22 24 - 32 03/22 [place] [facility] ELECTROLYTE Calcium Lvl 8.9 8.5 - 10.5 03/22 [facility] [place] [facility] ELECTROLYTE AGAP 14.6 10.0 - 08 [facility] S 20.0 [facility] ELECTROLYTE Chloride Lvl 110 95 - 109 03/22 [place] [facility] ELECTROLYTE Potassium Lvl 3.6 3.5 - 5.1 03/22 [place] [facility] ELECTROLYTE Creatinine 0.9 0.5 - 1.4 03/22 [place] L[place] /2014 [facility] ELECTROLYTE Sodium Lvl 143 135 - 145 03/22 [place] [facility] ELECTROLYTE Glucose Lvl 81 70 - 99 03/22 [facility] ELECTROLYTE BUN 10 7 - 22 03/22 [facility] ELECTROLYTE eGFR 75 03/22 [facility] Comment: The Medical eGFR is Center [...] HEMATOLOGY MPV 7.5 7.4 - 10.4 08 [facility] HEMATOLOGY Platelet 224 133 - 450 03/22 [facility] HEMATOLOGY WBC 11.7 3.7 - 10.4 03/22 [facility] HEMATOLOGY Hct 32.6 36.0 - 03/22 [place] 48.0 [facility] HEMATOLOGY MCV 84.1 80.0 - 03/22 [place] 98.0 /2014 [facility] HEMATOLOGY RBC 3.87 4.20 - 03/22 [place] 5.40 /2014 [facility] HEMATOLOGY Hgb 10.4 12.0 - 08 [place] 16.0 /2014 [facility] HEMATOLOGY MCHC 31.9 32.0 - 08 [place] 36.0 [facility] HEMATOLOGY MCH 26.8 27.0 - 08 [place] 31.0 [facility] HEMATOLOGY RDW 17.6 11.5 - 08 14.5 [facility] HEMATOLOGY Eosinophils 1.0 0.0 - 4.0 08 a [facility] HEMATOLOGY Monocytes 7.4 2.0 - 12.0 03/22 [facility] HEMATOLOGY Lymphocytes 38.6 20.0 - 08 [place] 40.0 /2014 [facility] HEMATOLOGY Segs 52.0 45.0 - 08 [place] 75.0 /2014 [facility] HEMATOLOGY Basophils 1.0 0.0 - 1.0 03/22 [facility] HEMATOLOGY Segs-Bands # 6.1 1.5 - 8.1 08 [facility] HEMATOLOGY Basophils # 0.1 0.0 - 0.2 03/22 [facility] HEMATOLOGY Monocytes # 0.9 0.0 - 0.8 03/22 [facility] HEMATOLOGY Eosinophils # 0.1 0.0 - 0.5 03/22 [facility] HEMATOLOGY Lymphocytes # 4.5 1.0 - 5.5 03/22 [facility] IMMUNOLOGY Alpha 1 % 5.0 2.8 - 4.9 03/21 [facility] IMMUNOLOGY Gamma % 14.5 11.1 - 03/21 18.7 /2014 [facility] IMMUNOLOGY Alpha 2 % 16.2 7.0 - 11.9 03/21 [facility] IMMUNOLOGY Beta % 15.1 7.8 - 13.7 03/21 [facility] IMMUNOLOGY Albumin % 49.2 55.8 - 08 [place] 66.1 /2014 [facility] IMMUNOLOGY Alpha 1 Glob 0.34 0.18 - 03/21 [place] 0.41 /2014 [facility] IMMUNOLOGY Tot Prot 6.8 6.4 - 8.4 03/21 (SPE) [facility] IMMUNOLOGY SPE Interp Total 03/21 [facility] protein Medical within the Center reference range. [...] with the resident&a pos;s interpreta tion. CPT 05215-QU IMMUNOLOGY Albumin (SPE) 3.35 3.57 - 08 [place] 5.55 /2014 [facility] IMMUNOLOGY Gamma Glob 0.99 0.71 - 08 [facility] 1.57 [facility] IMMUNOLOGY Alpha 2 Glob 1.10 0.45 - 08 1.00 [facility] IMMUNOLOGY Beta Glob 1.03 0.50 - 03/21 1.15 [facility] CHEM PANEL eGFR 101 03/21 Result Comment: [...] Calcium Lvl 9.1 8.5 - 10.5 03/21 [facility] CHEM PANEL Potassium Lvl 3.8 3.5 - 5.1 03/21 [facility] CHEM PANEL CO2 21 24 - 32 03/21 [facility] CHEM PANEL Chloride Lvl 110 95 - 109 03/21 [facility] CHEM PANEL BUN 11 7 - 22 03/21 [facility] CHEM PANEL Sodium Lvl 142 135 - 145 03/21 [facility] CHEM PANEL Glucose Lvl 83 70 - 99 03/21 [facility] CHEM PANEL Creatinine 0.7 0.5 - 1.4 03/21 [facility] CHEM PANEL AGAP 14.8 10.0 - 08 20.0 [facility] CHEM PANEL Magnesium Lvl 1.8 1.8 - 2.4 03/21 [facility] CHEM PANEL Phosphorus 4.1 2.5 - 4.5 03/21 [facility] HEMATOLOGY Eosinophils # 0.1 0.0 - 0.5 08/ [facility] HEMATOLOGY Monocytes # 0.7 0.0 - 0.8 08/ [facility] HEMATOLOGY Basophils 1.0 0.0 - 1.0 08/ [facility] HEMATOLOGY Eosinophils 1.2 0.0 - 4.0 08/ [facility] HEMATOLOGY Lymphocytes # 3.7 1.0 - 5.5 08 [facility] HEMATOLOGY Segs-Bands # 5.4 1.5 - 8.1 08 [facility] HEMATOLOGY Monocytes 6.9 2.0 - 12.0 08/ [facility] HEMATOLOGY Basophils # 0.1 0.0 - 0.2 03/21 [facility] HEMATOLOGY Segs 54.0 45.0 - 08 75.0 [facility] HEMATOLOGY Lymphocytes 36.9 20.0 - 08 40.0 [facility] HEMATOLOGY Hct 32.9 36.0 - 08 48.0 [facility] HEMATOLOGY Hgb 10.8 12.0 - 08 16.0 [facility] HEMATOLOGY RBC 3.91 4.20 - 08 [place] 5.40 /2014 [facility] HEMATOLOGY WBC 10.0 3.7 - 10.4 08 [facility] HEMATOLOGY MCHC 32.9 32.0 - 08/ 36.0 [facility] HEMATOLOGY RDW 17.2 11.5 - 08 14.5 [facility] HEMATOLOGY MCH 27.7 27.0 - 08 31.0 [facility] HEMATOLOGY MCV 84.2 80.0 - 08 98.0 [facility] HEMATOLOGY MPV 7.5 7.4 - 10.4 03/21 [facility] HEMATOLOGY Platelet 251 133 - 450 03/21 [facility] IMMUNOLOGY IgG Lvl CSF 6.4 2.0 - 4.0 03/21 [facility] CHEM PANEL eGFR 101 08/ Result Comment: [...] Sodium Lvl 141 135 - 145 03/20 [facility] CHEM PANEL Glucose Lvl 71 70 - 99 03/20 [facility] CHEM PANEL BUN 7 7 - 22 03/20 [facility] CHEM PANEL Creatinine 0.7 0.5 - 1.4 03/20 [facility] CHEM PANEL Potassium Lvl 3.9 3.5 - 5.1 03/20 [facility] CHEM PANEL Calcium Lvl 9.2 8.5 - 10.5 03/20 [facility] CHEM PANEL Chloride Lvl 108 95 - 109 03/20 [facility] CHEM PANEL CO2 23 24 - 32 03/20 [facility] CHEM PANEL AGAP 13.9 10.0 - 03/20 [place] 20.0 [facility] CHEM PANEL Magnesium Lvl 1.9 1.8 - 2.4 03/20 [facility] CHEM PANEL Phosphorus 3.6 2.5 - 4.5 03/20 [facility] HEMATOLOGY MCHC 33.2 32.0 - 08 [place] 36.0 [facility] HEMATOLOGY Platelet 285 133 - 450 03/20 [facility] HEMATOLOGY RDW 17.2 11.5 - 03/20 14.5 [facility] HEMATOLOGY RBC 4.07 4.20 - 08 [place] 5.40 /2014 [facility] HEMATOLOGY WBC 9.6 3.7 - 10.4 03/20 [facility] HEMATOLOGY Hgb 11.2 12.0 - 03/20 [place] 16.0 /2014 [facility] HEMATOLOGY Hct 33.6 36.0 - 03/20 48.0 /2014 [facility] HEMATOLOGY MCV 82.6 80.0 - 03/20 98.0 /2014 [facility] HEMATOLOGY MCH 27.4 27.0 - 03/20 31.0 /2014 [facility] HEMATOLOGY MPV 7.7 7.4 - 10.4 03/20 [facility] HEMATOLOGY Segs 55.3 45.0 - 03/20 [place] 75.0 /2014 [facility] HEMATOLOGY Basophils 1.9 0.0 - 1.0 03/20 [facility] HEMATOLOGY Lymphocytes 35.6 20.0 - 03/20 40.0 /2014 [facility] HEMATOLOGY Monocytes 6.2 2.0 - 12.0 03/20 [facility] HEMATOLOGY Eosinophils 1.0 0.0 - 4.0 03/20 [facility] HEMATOLOGY Segs-Bands # 5.3 1.5 - 8.1 03/20 [facility] HEMATOLOGY Lymphocytes # 3.4 1.0 - 5.5 03/20 [place] [facility] HEMATOLOGY Monocytes # 0.6 0.0 - 0.8 03/20 [facility] HEMATOLOGY Eosinophils # 0.1 0.0 - 0.5 03/20 [facility] HEMATOLOGY Basophils # 0.2 0.0 - 0.2 03/20 s [facility] IMMUNOLOGY IgG Lvl 971 774 - 1618 03/20 [facility] HEMATOLOGY dRVV Ratio 0.91 <=1.20 03/19 [facility] HEMATOLOGY Hex Phos N Negative Negative 03/19 [facility] (03/19/15 11:56 AM) /2014 [facility] [place] HEMATOLOGY Lup Interp Negative 03/19 [facility] for lupus [facility] ant with all tests performed (dRVVT, and hexagonal phospholip id neutraliza tion). CPT: 87181 IMMUNOLOGY Treponemal Non Reactive Non 03/19 [facility] xa Scr *NA* Reactive /2014 [facility] (03/19/15 11:56 AM) Center IMMUNOLOGY HIV 1/2 Ab Negative Negative 03/18 [facility] *NA* /2014 Medical (03/18/15 4:44 PM) Center VIRAL - W [place] Ab IgM <0.90 03/18 Result [facility] SEROLOGY Comment: Medical REFERENCE Center RANGE: <0.90

[...] by other flavivirus infections
(e.g. Dengue virus, Lyman encephalitis virus)
ma y show cross-reactiv ity with WNV.
Test Performed at:
[facility]
[id number] [facility] [place] [address] Paige Gant MD CARDIAC Troponin-I <0.02 0.00 - 03/18 [facility] ENZYMES 0.40 /2014 [facility] HEMATOLOGY PT 14.5 12.0 - 03/17 [facility] 14.7 /2015 [facility] HEMATOLOGY INR 1.12 0.85 - 03/17 [place] 1.17 /2014 [facility] HEMATOLOGY PTT 31.2 22.9 - 03/17 [facility] 35.8 /2015 [facility] CARDIAC Troponin-I <0.02 0.00 - 03/17 [facility] ENZYMES 0.40 /2014 [facility] CHEM PANEL Ammonia 71.0 <=45.0 03/17 [facility] uMol/L /2014 [facility] BODY FLUIDS Glucose CSF 42 45 - 80 03/17 [facility] BODY FLUIDS Monocyte CSF 9 15 - 45 03/[place] [facility] BODY FLUIDS Eos CSF 1 03/17 [facility] BODY FLUIDS Lymph CSF 90 40 - 80 03/17 Result Comment: This Medical differential Center demonstrates an increase in lymphocytes with a low RBC counts. Called savannah holcomb_by_sam. Read back OK. BODY FLUIDS Clarity CSF Clear Clear 03/17 [place] (03/17/15 11:15 AM) /2014 [facility] BODY FLUIDS Color CSF Colorless Colorless 03/17 [place] (03/17/15 11:15 AM) /2014 [facility] BODY FLUIDS Tube Num CSF 3 03/[place]2014 [facility] BODY FLUIDS Supernat CSF Colorless Colorless 03/17 (03/17/15 11:15 AM) [facility] BODY FLUIDS RBC CSF 3 0 - 03 03/17 [facility] BODY FLUIDS WBC CSF 140 0 - 53 03/17 [facility] BODY FLUIDS Protein CSF 71 15 - 45 03/17 Result Comment: Medical "Significant Center Findings called lj _Sonny Waters_at _03/17/2015 16:03_by _AAC_.Read Back OK." IMMUNOLOGY L-sgssle-C-As < 1:1 < 1:1 03/17 [place] partate Rcptr Comment: Medical Ab CSF INTERPRETIVE Center INFORMATION: G-stexpy-Q-As partate
Receptor Ab, CSF
Anti- NMDA receptor [...]
Test developed and characteristi cs determined by [facility]
Laborato janene. See Compliance Statement B: [email or web address] S
Perform ed by [facility],
[address], [facility] [address]
[email or web address], Horacio Stinson MD - Lab. anesthetic assistant VZV PCR NOT 03/17 Result [facility] Comment: Medical REFERENCE Center RANGE: NOT DETECTED

This test was developed and its performance<b r/>characteri stics have been determined by [facility]. Performance characteristi cs refer to
the analytical performance of the test.

This test is performed pursuant to a license
a greement with [employer]
Test Performed at:
[facility]
[address] [facility]
[place] [address] Paige Gant MD IMMUNOLOGY Source CSF 03/17 [place] /2014 [facility] IMMUNOLOGY VDRL Scr CSF Non Reactive Non 03/17 [place] (03/17/15 11:15 AM) Reactive /2014 [facility] MOLECULAR HSV 2 by PCR [...] HSV Cerebral 03/17 [place] DIAGNOSTIC Spinal /2014 [facility] VIRAL - Enterovirus Negative Negative 03/17 [facility] SEROLOGY PCR CSF (03/17/15 11:15 AM) /2014 [facility] BACTERIAL - MRSA by PCR Negative 03/17 [place] SEROLOGY (03/17/15 7:34 AM) /2014 [facility] CHEM PANEL Procalcitonin <0.05 0.00 - 03/17 [place] L[place] ng/mL 0.10 /2014 [facility] TOXICOLOGY Valproic Acid 115 50 - 100 03/17 [place] Lvl /2014 [facility] BLOOD BANK Antibody Scrn Negative 03/17 [place] RESULTS (03/16/15 9:18 PM) /2014 [facility] BLOOD BANK ABO/Rh O POS 03/17 [place] RESULTS /2014 [facility] CHEM PANEL A/G Ratio 0.7 0.7 - 1.6 03/17 [facility] CHEM PANEL B/C Ratio 12 6 - 25 03/17 2014 [facility] CHEM PANEL Globulin 3.9 2.0 - 4.0 03/17 [facility] CHEM PANEL AST 5 0 - 37 03/17 2014 [facility] CHEM PANEL Alk Phos 110 39 - 136 03/17 2014 [facility] CHEM PANEL Bili Total 0.2 0.2 - 1.3 03/17 [facility] CHEM PANEL ALT 19 0 - 65 03/17 [facility] CHEM PANEL Total Protein 6.8 6.4 - 8.4 03/17 [facility] CHEM PANEL Albumin Lvl 2.9 3.5 - 5.0 03/17 [place] [facility] DRUG SCREEN UDS Note See Note 03/17 [...] 29.7 22.9 - 07/31 [place] 35.8 /2014 [facility] PARATHYROID Ca Ion WB 1.15 1.05 - 03/17 [facility] PROFILE 1.25 [facility] PARATHYROID Ca Norm WB 1.12 1.05 - 03/17 [facility] PROFILE 1. [facility] URINE AND UA Bili Negative Negative 03/17 [facility] STOOL *NA* /2014 [facility] (03/16/15 9:18 PM) [place] URINE AND UA Ketones Negative Negative 03/17 [facility] mg/dL mg/dL /2014 [facility] URINE AND UA Nitrite Negative Negative 03/17 [facility] (03/16/15 9:18 PM) /2014 [facility] URINE AND UA Leuk Est Negative Negative 03/17 [facility] (03/16/15 9:18 PM) /2014 [facility] URINE AND UA Blood Negative Negative 03/17 [facility] (03/16/15 9:18 PM) /2014 [facility] URINE AND UA Mucus Few /LPF None Seen 03/17 [facility] /LPF /2014 [facility] URINE AND UA Sq Epi Occasional Few /LPF 03/17 [facility] /LPF /2014 [facility] URINE AND UA RBC <1 0 - 2 03/17 [facility] /2014 [facility] URINE AND UA <=1.0 0.1 - 1.0 03/17 [facility] Urobilinogen mg/dL /2014 [facility] URINE AND UA Glucose Negative Negative 03/17 [facility] mg/dL mg/dL /2014 [facility] URINE AND UA pH 7.0 5.0 - 8.0 03/17 [facility] /2014 [facility] URINE AND UA Protein Negative Negative 03/17 [facility] mg/dL mg/dL /2014 [facility] URINE AND UA Turbidity Clear Clear 03/17 [facility] (03/16/15 9:18 PM) /2014 [facility] URINE AND UA Spec Grav 1.009 <=1.030 03/17 [facility] /2014 [facility] URINE AND UA Color Light Yellow Yellow 03/17 [facility] STOOL *NA* /2014 Medical (03/16/15 9:18 PM) [place] HEMATOLOGY PTT 36.1 22.9 - 03/16 <sup>20</sup> [facility] s 35.8 /2014 Interpretive Medical Data: Heparin Center Therapeutic Range: 57 - 92 Seconds HEMATOLOGY PT 14.6 12.0 - 10/31 [facility] 14.7 /2014 [facility] HEMATOLOGY INR 1.13 0.85 - 10/31 <sup>16</sup> [place] 1.17 Interpretive Medical Data: Center RECOMMENDED RANGES FOR PROTIME INR:
2.0-3.0 for most medical and surgical thromboemboli c states.
2.5-3.5 for artificial heart valves and recurrent embolism.<br/ >
INR SHOULD BE USED ONLY FOR PATIENTS ON STABLE ANTICOAGULANT THERAPY. TOXICOLOGY Vanco Tr TND 0830 10/31 [facility] TOXICOLOGY Vanco Tr 25.2 10/31 <sup>9</sup>I [facility] nterpretive Medical Data: [place] Therapeutic Range:
Trough: 10 - 20 ug/mL
Peak: 20 - 40 ug/mL
Potential Toxicity: >80 ug/mL CHEM PANEL Phosphorus 3.1 2.5 - 4.5 10/31 [facility] CHEM PANEL Magnesium Lvl 1.8 1.8 - 2.4 10/31 [place] [facility] ELECTROLYTE AGAP 14.1 10.0 - 10/31 [facility] S 20.0 [facility] ELECTROLYTE eGFR 107 10/31 <sup>1</sup>R [facility] Medical Comment: The [place] eGFR is calculated using the CKD-EPI formula. [...] 142 135 - 145 10/31 [place] [facility] ELECTROLYTE Chloride Lvl 107 95 - 109 10/31 [place] [facility] ELECTROLYTE Potassium Lvl 4.1 3.5 - 5.1 10/31 [place] [facility] ELECTROLYTE Calcium Lvl 8.5 8.5 - 10.5 10/31 [facility] [place] [facility] ELECTROLYTE CO2 25 24 - 32 10/31 [facility] ELECTROLYTE Creatinine 0.6 0.5 - 1.4 10/31 [place] S L[place] [facility] ELECTROLYTE Glucose Lvl 62 70 - 99 10/31 <sup>4</sup>I nterpretive Medical Data: Adult Center reference range values reflect the clinical guidelines
of the [place] [employer]. ELECTROLYTE BUN 6 7 - 22 10/31 [facility] HEMATOLOGY Basophils # 0.1 0.0 - 0.2 10/31 [facility] HEMATOLOGY Segs-Bands # 5.7 1.5 - 8.1 10/31 [facility] HEMATOLOGY Eosinophils 5.0 0.0 - 4.0 10/31 [facility] HEMATOLOGY Lymphocytes 31.1 20.0 - 10/31 [place] 40.0 [facility] HEMATOLOGY Monocytes 5.7 2.0 - 12.0 10/31 [facility] HEMATOLOGY Segs 57.7 45.0 - 10/31 [place] 75.0 [facility] HEMATOLOGY Basophils 0.5 0.0 - 1.0 10/31 [facility] HEMATOLOGY Monocytes # 0.6 0.0 - 0.8 10/31 [facility] HEMATOLOGY Eosinophils # 0.5 0.0 - 0.5 10/31 [facility] HEMATOLOGY Lymphocytes # 3.1 1.0 - 5.5 10/31 [facility] HEMATOLOGY INR 1.08 0.85 - 10/31 <sup>17</sup> [facility] 1. Interpretive Medical Data: Center RECOMMENDED RANGES FOR PROTIME INR:
2.0-3.0 for most medical and surgical thromboemboli c states.
2.5-3.5 for artificial heart valves and recurrent embolism.<br/ >
INR SHOULD BE USED ONLY FOR PATIENTS ON STABLE ANTICOAGULANT THERAPY. HEMATOLOGY PTT 33.9 22.9 - 03 <sup>21</sup> [place] 35.8 /2014 Interpretive Medical Data: [facility] Center Therapeutic Range: 57 - 92 Seconds HEMATOLOGY PT 14.1 12.0 - 10/31 [place] 14.7 /2014 [facility] HEMATOLOGY WBC 10.0 3.7 - 10.4 10/31 /2014 [facility] HEMATOLOGY RBC 3.22 4.20 - 03 [place] 5.40 /2014 [facility] HEMATOLOGY Hct 28.9 36.0 - 10/31 [place] 48.0 /2014 [facility] HEMATOLOGY Hgb 9.7 12.0 - 03 [place] 16.0 /2014 [facility] HEMATOLOGY MCHC 33.4 32.0 - 10/31 [place] 36.0 /2014 [facility] HEMATOLOGY MCH 30.0 27.0 - 10/31 [place] 31.0 /2014 [facility] HEMATOLOGY MCV 89.8 80.0 - 10/31 [place] 98.0 /2014 [facility] HEMATOLOGY MPV 8.2 7.4 - 10.4 10/31 /2014 [facility] HEMATOLOGY Platelet 174 133 - 450 10/31 /2014 [facility] HEMATOLOGY RDW 16.4 11.5 - 03 [place] 14.5 [facility] PARATHYROID Ca Ion WB 1.08 1.05 - 10/31 [place] PROFILE 1.25 /2014 [facility] PARATHYROID Ca Norm WB 1.05 1.05 - 10/31 [place] PROFILE 1.25 [facility] CARDIAC Total CK 70 12 - 191 10/30 [place] ENZYMES [facility] CHEM PANEL Phosphorus 3.2 2.5 - 4.5 10/30 [place] /2014 [facility] CHEM PANEL Magnesium Lvl 1.8 1.8 - 2.4 10/30 [place]2014 [facility] ELECTROLYTE AGAP 10.6 10.0 - 10/30 [place] S 20.0 [facility] ELECTROLYTE Glucose Lvl 79 70 - 99 10/30 <sup>5</sup>I [facility] S /2014 nterpretive Medical Data: Adult Center reference range values reflect the clinical guidelines
of the [place] [employer]. ELECTROLYTE BUN 8 7 - 22 10/30 [facility] ELECTROLYTE Creatinine 0.6 0.5 - 1.4 10/30 [place] S L[place] [facility] ELECTROLYTE CO2 27 24 - 32 10/30 [facility] ELECTROLYTE Calcium Lvl 8.1 8.5 - 10.5 10/30 [place] [facility] ELECTROLYTE Potassium Lvl 3.6 3.5 - 5.1 10/30 [place] [facility] ELECTROLYTE Chloride Lvl 109 95 - 109 10/30 [place] S [facility] ELECTROLYTE Sodium Lvl 143 135 - 145 10/30 [place] [facility] ELECTROLYTE eGFR 107 10/30 <sup>2</sup>R [facility] Comment: The Center eGFR is calculated using [...] # 0.4 0.0 - 0.5 10/30 [place] [facility] HEMATOLOGY Lymphocytes # 4.9 1.0 - 5.5 10/30 [facility] HEMATOLOGY Monocytes # 0.6 0.0 - 0.8 10/30 [facility] HEMATOLOGY Segs 49.4 45.0 - 10/30 [place] 75.0 [facility] HEMATOLOGY Segs-Bands # 5.8 1.5 - 8.1 10/30 [facility] HEMATOLOGY Eosinophils 3.7 0.0 - 4.0 10/30 [facility] HEMATOLOGY Lymphocytes 41.4 20.0 - 10/30 [place] 40.0 /2014 [facility] HEMATOLOGY Basophils 0.4 0.0 - 1.0 10/30 [facility] HEMATOLOGY Monocytes 5.1 2.0 - 12.0 10/30 /2014 [facility] HEMATOLOGY MCH 29.4 27.0 - 10/30 [place] 31.0 /2014 [facility] HEMATOLOGY Hct 27.5 36.0 - 10/30 [place] 48.0 /2014 [facility] HEMATOLOGY RDW 16.3 11.5 - 10/30 [place] 14.5 /2014 [facility] HEMATOLOGY Platelet 137 133 - 450 10/30 [facility] HEMATOLOGY MPV 8.4 7.4 - 10.4 10/30 [facility] HEMATOLOGY Hgb 9.1 12.0 - 10/30 [place] 16.0 /2014 [facility] HEMATOLOGY MCHC 33.0 32.0 - 10/30 [place] 36.0 /2014 [facility] HEMATOLOGY RBC 3.09 4.20 - 10/30 [place] 5.40 /2014 [facility] HEMATOLOGY WBC 11.8 3.7 - 10.4 10/30 [facility] HEMATOLOGY MCV 89.0 80.0 - 10/30 [place] 98.0 /2014 [facility] HEMATOLOGY PT 13.5 12.0 - 10/30 [place] 14.7 /2014 [facility] HEMATOLOGY INR 1.03 0.85 - 10/30 <sup>18</sup> [...] Ca Norm WB 1.10 1.05 - 10/30 [facility] PROFILE 1. [facility] PARATHYROID Ca Ion WB 1.11 1.05 - 10/30 [facility] PROFILE . [facility] CARDIAC Total CK 49 12 - 191 10/30 [facility] ENZYMES [facility] CARDIAC Troponin-T <0.010 0.000 - 10/30 [place] ENZYMES 0.100 /2014 [facility] CARDIAC Troponin-I 0.02 0.00 - 10/30 [place] ENZYMES 0.40 /2014 [facility] HEMATOLOGY Eosinophils # 0.2 0.0 - 0.5 10/30 [place] [facility] HEMATOLOGY Monocytes # 0.3 0.0 - 0.8 10/30 [place] [facility] HEMATOLOGY Basophils 0.4 0.0 - 1.0 10/30 [facility] HEMATOLOGY Segs-Bands # 3.2 1.5 - 8.1 10/30 [facility] HEMATOLOGY Lymphocytes # 2.3 1.0 - 5.5 10/30 [place] [facility] HEMATOLOGY Monocytes 4.8 2.0 - 12.0 10/30 [facility] HEMATOLOGY Eosinophils 3.1 0.0 - 4.0 10/30 [place] [facility] HEMATOLOGY Segs 53.2 45.0 - 10/30 [place] 75.0 [facility] HEMATOLOGY Lymphocytes 38.5 20.0 - 10/30 [place] 40.0 [facility] HEMATOLOGY Hct 14.9 36.0 - 10/30 <sup>15</sup> [place] 48.0 /2014 Result Medical Comment: Center Critical Result(s) called to Cadence Solano at 10/30/2014 01:18 byJw. Read back OK. HEMATOLOGY MCHC 32.8 32.0 - 10/30 [place] 36.0 /2014 [facility] HEMATOLOGY MCH 30.3 27.0 - 10/30 [place] 31.0 /2014 [facility] HEMATOLOGY MCV 92.2 80.0 - 10/30 [place] 98.0 /2015 [facility] HEMATOLOGY RDW 16.3 11.5 - 10/30 [place] 14.5 /2014 [facility] HEMATOLOGY Hgb 4.9 12.0 - 10/30 <sup>14</sup> [place] 16.0 /2014 Result Medical Comment: Center Critical Result(s) called to Cadence Solano at 10/30/2014 01:18 byJw. Read back OK. HEMATOLOGY RBC 1.61 4.20 - 10/30 [place] 5.40 /2014 [facility] HEMATOLOGY WBC 6.0 3.7 - 10.4 10/30 [facility] HEMATOLOGY MPV 8.1 7.4 - 10.4 10/30 [facility] HEMATOLOGY Platelet 73 133 - 450 10/30 [facility] PARATHYROID Ca Norm WB 0.63 1.05 - 10/30 [place] PROFILE 09.11 [facility] PARATHYROID Ca Ion WB 0.62 1.05 - 10/30 <sup>7</sup>R [place] PROFILE 09.11 esult Medical Comment: Center Critical Result(s) called to della pal at 10/30/2014 01:05 frida. Read back OK. CARDIAC Troponin-I <0.02 0.00 - 10/29 [facility] ENZYMES 0.40 /2014 [facility] CARDIAC Troponin-T <0.010 0.000 - 10/29 [facility] ENZYMES 0.100 /2014 [facility] CARDIAC Total CK 83 12 - 191 10/29 [facility] ENZYMES /2014 [facility] CARDIAC CK MB Index 0.7 0.0 - 2.5 10/29 [facility] ENZYMES /2014 [facility] CARDIAC CK MB 0.6 0.5 - 3.6 10/29 [facility] ENZYMES /2014 [facility] TOXICOLOGY Vanco Tr TND 0000 10/29 [facility] TOXICOLOGY Vanco Tr 23.9 10/29 <sup>10</sup> [facility] Interpretive Medical Data: Center Therapeutic Range:
Trough: 10 - 20 ug/mL
Peak: 20 - 40 ug/mL
Potential Toxicity: >80 ug/mL CHEM PANEL Lactic Acid 0.7 0.5 - 2.2 10/29 [place] L[place] [facility] CHEM PANEL Magnesium Lvl 1.8 1.8 - 2.4 10/29 [place] [facility] CHEM PANEL Phosphorus 2.8 2.5 - 4.5 10/29 [facility] ELECTROLYTE AGAP 11.0 10.0 - 10/29 [facility] S 20.0 [facility] ELECTROLYTE BUN 10 7 - 22 10/29 [facility] S [facility] ELECTROLYTE Glucose Lvl 83 70 - 99 10/29 <sup>6</sup>I nterpretive Medical Data: Adult Center reference range values reflect the clinical guidelines
of the [place] [employer]. ELECTROLYTE Sodium Lvl 145 135 - 145 10/29 [facility] ELECTROLYTE Creatinine 0.7 0.5 - 1.4 10/29 [facility] S l [facility] ELECTROLYTE eGFR 101 10/29 <sup>3</sup>R [facility] Medical Comment: The Center eGFR is calculated [...] ELECTROLYTE CO2 24 24 - 32 10/29 [facility] ELECTROLYTE Calcium Lvl 7.9 8.5 - 10.5 10/29 [place] [facility] ELECTROLYTE Chloride Lvl 114 95 - 109 10/29 [facility] ELECTROLYTE Potassium Lvl 4.0 3.5 - 5.1 10/29 [place] [facility] HEMATOLOGY Basophils # 0.1 0.0 - 0.2 10/29 [facility] 2014 [facility] TOXICOLOGY Vanco Tr TND 10/30 830 10/28 [facility] TOXICOLOGY Vanco Tr 9.7 10/28 <sup>11</sup> [facility] Interpretive Medical Data: Center Therapeutic Range:
Trough: 10 - 20 ug/mL
Peak: 20 - 40 ug/mL
Potential Toxicity: >80 ug/mL HEMATOLOGY Pat Od Value 0.046 10/28 [facility] HEMATOLOGY Pos CO Value 0.392 10/[address] HEMATOLOGY Heparin Negative Negative 10/28 [facility] Ab(REGI) (10/28/14 6:00 AM) /2014 [facility] CHEM PANEL Lactic Acid 1.0 0.5 - 2.2 10/27 [place] L[place] /2014 [facility] IMMUNOLOGY C-REACTIVE 24.4 <=2.9 mg/L 10/27 [place] PROTEIN /2014 [facility] THYROID TSH 0.120 0.360 - 10/27 [facility] PANEL 3.740 /2014 [facility] THYROID T4 Free 0.96 0.76 - 10/27 [facility] PANEL 1.46 /2014 [facility] CHEM PANEL Lactic Acid 1.6 0.5 - 2.2 10/27 [place] L[place] /2014 [facility] HEMATOLOGY RBC Morph Normal 10/27 [facility] (10/27/14 2:00 AM) /2014 [facility] HEMATOLOGY Plt Morph Normal 10/27 [facility] (10/27/14 2:00 AM) /2014 [facility] HEMATOLOGY Sed Rate 28 0 - 20 10/27 [facility] TOXICOLOGY Cyanide Lvl <0.1 <0.1 mg/L 10/26 <sup>12</sup> M H Result Medical Comment: Test Center Performed at:
[facility]<br/ >Beatty [place], [facility] Scarlett Howe
[place], [facility] TOXICOLOGY Cyanide Lvl <0.1 <0.1 mg/L 10/26 <sup>13</sup> M H Result Medical Comment: Test Center Performed at:
[facility]<br/ >Rogerio Rojas [id number]
[place], [facility] BLOOD BANK Antibody Scrn Negative 10/26 [facility] as RESULTS (10/26/14 4:24 PM) /2014 [facility] BLOOD BANK ABO/Rh O POS 10/26 [facility] RESULTS /2014 [facility] CHEM PANEL Lipase Lvl 70 73 - 393 10/26 [facility] CHEM PANEL Procalcitonin 0.15 0.00 - 10/26 [place] L[place] 0.10 /2014 [facility] HEMATOLOGY Fibrinogen 348 230 - 510 10/26 [facility] Lvl /2014 [facility] HEMATOLOGY D-Dimer 0.21 10/26 <sup>19</sup> Interpretive Medical [...] DVT/PE. IMMUNOLOGY C-REACTIVE 29.2 <=2.9 mg/L 10/26 [facility] s PROTEIN [facility] CARDIAC Troponin-T <0.010 0.000 - 10/26 [facility] ENZYMES 0.100 /2014 [facility] CARDIAC Troponin-I 0.02 0.00 - 10/26 [facility] ENZYMES 0.40 [facility] CHEM PANEL Procalcitonin 0.14 0.00 - 10/26 [facility] Lvl 0.10 [facility] HEMATOLOGY RBC Morph Normal 10/26 [facility] (10/26/14 1:30 PM) [facility] HEMATOLOGY Plt Morph Normal 10/26 [facility] (10/26/14 1:30 PM) /2014 [facility] HEMATOLOGY Atypical 0.0 <=0.0 % 10/26 [facility] Lymph [facility] HEMATOLOGY Bands 1.0 0.0 - 11.0 10/[address] CHEM PANEL Bili Indirect 0.1 0.0 - 1.0 10/26 [facility] CHEM PANEL Bili Total 0.2 0.2 - 1.3 10/26 [facility] CHEM PANEL Bili Direct 0.1 0.0 - 0.3 10/26 [facility] CHEM PANEL AST 11 0 - 37 10/26 [facility] CHEM PANEL Alk Phos 115 39 - 136 10/26 [facility] CHEM PANEL Albumin Lvl 2.9 3.5 - 5.0 10/26 [facility] 2014 [facility] CHEM PANEL Globulin 3.2 2.0 - 4.0 10/[address] CHEM PANEL Total Protein 6.1 6.4 - 8.4 10/26 [facility] CHEM PANEL ALT 23 0 - 65 10/26 [facility] CHEM PANEL A/G Ratio 0.9 0.7 - 1.6 10/26 [facility] HEMATOLOGY Basophils # 0.1 0.0 - 0.2 10/26 a s [facility] CHEM PANEL Procalcitonin 0.05 0.00 - 10/26 [place] L[place] 0.10 [facility] DRUG SCREEN U Opiate Scr Negative Negative [place]/26 [place] (10/[place]/14 1:40 AM) [facility] Cannab Scr Negative Negative 10[place]26 [place] (10/26/14 1:40 AM) /[facility] Cocaine Scr Negative Negative 10/26 [place] (10/26/14 1:40 AM) /2014 [facility] U Benzodia Positive Negative 10/26 [facility] s Scr *ABN* /2014 [facility] (10/26/14 1:40 AM) Center DRUG SCREEN U Phencyc Scr Negative Negative 10/26 [place] (10/26/14 1:40 AM) /2014 [facility] DRUG SCREEN UDS Note See Note 8 10/26 <sup>8</sup>I [facility] (10/26/14 1:40 AM) nterpretive Ms dical Data: Drugs Center reported as positive have not been confirmed by a second
ny thod and should be used for medical [...] SCREEN U Amph Scr Negative Negative 10/26 [facility]14 1[facility]40 AM[facility] DRUG SCREEN U Starla Scr Negative Negative 10/26 [facility] (10/26/14 1:40 AM) /2014 [facility] URINE AND UA Glucose Negative Negative 10/26 [facility] STOOL (10/26/14 1:40 AM) /2014 [facility] URINE AND UA Protein Negative Negative 10/26 [facility] (10/26/14 1:40 AM) /2014 [facility] URINE AND UA Ketones Negative Negative 10/26 [facility] (10/26/14 1:40 AM) /2014 [facility] URINE AND UA Renal Epi 5 <=0 /LPF 10/26 [facility] /2014 [facility] URINE AND UA Mucus Few /LPF None Seen 10/26 [facility] STOOL /LPF /2014 [facility] URINE AND UA Sq Epi Moderate Few /LPF 10/26 [facility] /LPF /2014 [facility] URINE AND UA Hyal Cast 28 0 - 2 10/26 [facility] /2014 [facility] URINE AND UA Blood Negative Negative 10/26 [facility] (10/26/14 1:40 AM) [facility] URINE AND UA Bili Negative Negative 10/26 [facility] (10/26/14 1:40 AM) /2014 [facility] URINE AND UA Nitrite Negative Negative 10/26 [facility] (10/26/14 1:40 AM) [facility] URINE AND UA <=1.0 0.1 - 1.0 10/26 [facility] Urobilinogen /2014 [facility] URINE AND UA Leuk Est Negative Negative 10/26 [facility] (10/26/14 1:40 AM) [facility] URINE AND UA Spec Grav 1.009 <=1.030 10/26 [facility] /[address] [place] [address] URINE AND UA Turbidity Slight Clear 10/26 [facility] *ABN* /2014 [facility] (10/26/14 1:40 AM) [place] URINE AND UA Color Yellow Yellow 10/26 [facility] (10/26/14 1:40 AM) Medica l [place] URINE AND UA pH 5.0 5.0 - 8.0 10/26 [facility] STOOL /2014 [facility] HEMATOLOGY Angle 76.5 53.0 - 10/26 [facility] 72.0 [facility] HEMATOLOGY Max Amp 74.1 50.0 - 10/26 [facility] 70.0 [facility] HEMATOLOGY G-value 14.3 4.5 - 11.0 10/26 [facility] /2014 [facility] HEMATOLOGY TEG Data See Note 23 10/26 <sup>23</sup> [facility] (10/25/14 9:45 PM) Interpretive M edical Data: [...] HEMATOLOGY Coag Index 3.4 -3.0-3.0 - 10/26 [facility] s 3.0 [facility] HEMATOLOGY K-time 1.0 1.0 - 3.0 10/26 [facility] HEMATOLOGY R-time 5.1 5.0 - 10.0 10/26 [facility]2014 [facility] HEMATOLOGY Ly30 0.9 0.0 - 7.5 10/26 [facility]2014 [facility] HEMATOLOGY TEG Interp Thrombelas 10/26 [facility] tograph [facility] show increased values of both Angle Alpha and MA. These findings are suggestive of platelet hypercoagu lation. CPT:71881 LIPIDS VLDL 35 10/26 [facility] LIPIDS LDL 60 <=99 mg/dL 10/26 [facility] (Calculated) [facility] LIPIDS CHD Risk 2.76 3.90 - 10/26 [facility] 5.80 [facility] LIPIDS HDL 54 >=61 mg/dL 10/26 [facility] LIPIDS Trig 173 <=149 10/26 [facility] mg/dL [facility] LIPIDS Chol 149 <=199 10/26 [facility] mg/dL [facility] SPECIAL Hgb A1C 5.7 <=5.6 % 10/26 [facility] CHEMISTRY [facility] CHEM PANEL Phosphorus 3.7 2.5 - 4.5 11/14 [facility] CHEM PANEL Magnesium Lvl 1.7 1.8 - 2.4 11/14 [place] [facility] ELECTROLYTE AGAP 13.6 10.0 - 11/14 [facility] S 20.0 [facility] ELECTROLYTE eGFR 87 11/14 <sup>1</sup>R [facility] as S [facility] Medical Comment: The Center eGFR is calculated [...] ELECTROLYTE BUN 23 7 - 22 11/14 [facility] ELECTROLYTE Glucose Lvl 70 70 - 99 11/14 <sup>3</sup>I [facility] nterpretive Medical Data: [facility] Center reference range values reflect the clinical guidelines
of the [place] [employer]. ELECTROLYTE Creatinine 0.8 0.5 - 1.4 11/14 [facility] s S Lvl [facility] ELECTROLYTE Sodium Lvl 140 135 - 145 11/14 [facility] S [facility] ELECTROLYTE Potassium Lvl 4.6 3.5 - 5.1 11/14 [place] [facility] ELECTROLYTE Chloride Lvl 107 95 - 109 11/14 [facility] as [facility] ELECTROLYTE CO2 24 24 - 32 11/14 [facility] ELECTROLYTE Calcium Lvl 8.8 8.5 - 10.5 11/14 [place] [facility] HEMATOLOGY INR 1.97 0.85 - 11/14 <sup>6</sup>I [facility] s 1.17 nterpretive Medical Data: Center RECOMMENDED RANGES FOR PROTIME INR:
2.0-3.0 for most medical and surgical thromboemboli c states.
2.5-3.5 for artificial heart valves and recurrent embolism.<br/ >
INR SHOULD BE USED ONLY FOR PATIENTS ON STABLE ANTICOAGULANT THERAPY. HEMATOLOGY PT 22.1 12.0 - 11/14 [facility] 14.7 [facility] LIPIDS LDL 93 <=99 mg/dL 11/14 [facility] (Calculated) [facility] LIPIDS VLDL 66 11/14 [facility] LIPIDS Trig 330 <=149 11/14 [facility] mg/dL [facility] LIPIDS Chol 197 <=199 11/14 [facility] mg/dL [facility] LIPIDS HDL 38 >=61 mg/dL 11/14 [facility] LIPIDS CHD Risk 5.18 3.90 - 11/14 [facility] 5.80 /2013 [facility] DRUG SCREEN U Phencyc Scr Positive Negative 11/14 [place] *ABN* [facility] (11/13/2013 20:09:21 [facility]) Center DRUG SCREEN UDS Note See Note 5 11/14 <sup>5</sup>I [facility] (11/13/2013 20:09:21 [facility]) nterpretive Medical Data: Drugs Center reported as [...] [place] *NA* /2013 [facility] (11/13/2013 20:09:21 [facility]) Center DRUG SCREEN U Benzodia Positive Negative [place]/14 [place] *ABN* Medical (11/13/2013 20:09:21 [place]) Center DRUG SCREEN U Opiate Scr Positive Negative 11/14 [place] *ABN* /2013 Medical (11/13/2013 20:09:21 [place]) Center DRUG SCREEN U Cocaine Scr Negative Negative 11/14 [place] *NA* Medical (11/13/2013 20:09:21 [place]) Center DRUG SCREEN U Cannab Scr Negative Negative 11/14 [place] *NA* Medical (11/13/2013 20:09:21 [facility]) Center DRUG SCREEN U Amph Scr Negative Negative 11/14 [place] *NA* Medical (11/13/2013 20:09:21 [place]) Center DRUG SCREEN U Methadone Negative Negative 11/14 [place] Scr *NA* Medical (11/13/2013 20:09:21 [place]) Center DRUG SCREEN U Propoxyph Negative Negative 11/14 [place] Scr *NA* Medical (11/13/2013 20:09:21 [facility]) Center URINE AND UA Hyal Cast 2 0 - 2 11/14 [facility] /2013 [facility] URINE AND UA <=1.0 0.1 - 1.0 11/14 [facility] Urobilinogen mg/dL /2013 Medical [place] URINE AND UA Turbidity Slight Clear 11/14 [facility] STOOL *ABN* Medical (11/13/2013 20:09:00 [place]) [place] URINE AND UA Color Yellow Yellow 11/14 [facility] *NA* Medical (11/13/2013 20:09:00 [place]) [place] URINE AND UA pH 6.5 5.0 - 8.0 11/14 [facility] STOOL /2013 [facility] URINE AND UA Spec Grav 1.024 <=1.030 11/14 [facility] STOOL Medical [place] URINE AND UA Protein 20 mg/dL Negative 11/14 [facility] STOOL mg/dL Medical Center URINE AND UA Ketones Negative Negative 11/14 [facility] STOOL mg/dL mg/dL Medical [place] URINE AND UA Glucose Negative Negative 11/14 [facility] STOOL mg/dL mg/dL Medical [place] URINE AND UA Blood Negative Negative 11/14 [facility] (11/13/2013 20:09:00 [place]) /2013 Medical Center URINE AND UA Bili Negative Negative 11/14 [facility] STOOL *NA* /2013 Medical (11/13/2013 20:09:00 [place]) Center URINE AND UA Leuk Est Small Negative 11/14 [facility] STOOL *ABN* Medical (11/13/2013 20:09:00 [facility]) Center URINE AND UA Nitrite Negative Negative 11/14 [facility] (11/13/2013 20:09:00 [facility]) Medical Center URINE AND UA WBC 3 0 - 5 11/14 [facility] STOOL [facility] URINE AND UA Sq Epi Many /LPF Few /LPF 11/14 [facility] STOOL Medical Center URINE AND UA Bacteria Occasional None Seen 11/14 [place] STOOL /HPF /HPF /2013 Medical [place] URINE AND UA RBC 1 0 - 2 11/14 [facility] STOOL [facility] URINE AND UA Amorph Occasional None Seen 11/14 [place] /HPF /HPF /2013 Medical Center URINE AND UA Mucus Few /LPF None Seen 11/14 [facility] STOOL /LPF /2013 Medical Center URINE CHEM U Preg Negative Negative 11/14 [facility] (11/13/2013 20:09:00 [place]) /2013 Medical Center CARDIAC Troponin-T <0.010 0.000 - 11/13 [facility] ENZYMES 0.100 [facility] CARDIAC Troponin-I <0.02 0.00 - 11/13 [place] ENZYMES 0.40 [facility] CARDIAC Total CK 107 12 - 191 11/13 [facility] CARDIAC CK MB Index 0.5 0.0 - 2.5 11/13 [place] [facility] CARDIAC CK MB 0.5 0.5 - 3.6 11/13 [place] [facility] CHEM PANEL Bili Indirect 0.1 0.0 - 1.0 11/13 [place] [facility] CHEM PANEL Bili Total 0.2 0.2 - 1.3 11/13 [facility] CHEM PANEL Bili Direct 0.1 0.0 - 0.3 11/13 [place] [facility] CHEM PANEL AST 24 0 - 37 11/13 [facility] CHEM PANEL A/G Ratio 0.9 0.7 - 1.6 11/13 [facility] CHEM PANEL ALT 40 0 - 65 11/13 [facility] CHEM PANEL Total Protein 6.4 6.4 - 8.4 11/13 [place] [facility] CHEM PANEL Albumin Lvl 3.0 3.5 - 5.0 11/13 [facility] CHEM PANEL Globulin 3.4 2.0 - 4.0 11/13 [facility] CHEM PANEL Alk Phos 118 39 - 136 11/13 [facility] SPECIAL Hgb A1C 5.0 <=5.6 % 11/13 [facility] CARDIAC CK MB Index 0.6 0.0 - 2.5 11/13 [facility] CARDIAC Troponin-I <0.02 0.00 - 11/13 [facility] ENZYMES 0.40 [facility] CARDIAC CK MB 0.6 0.5 - 3.6 11/13 [facility] CARDIAC Total CK 108 12 - 191 11/13 [facility] CHEM PANEL eGFR 75 11/13 <sup>2</sup>R esult [...] PANEL AGAP 13.1 10.0 - 11/13 20. [facility] CHEM PANEL CO2 26 24 - 32 11/13 [facility] CHEM PANEL Chloride Lvl 106 95 - 109 11/13 [facility] CHEM PANEL Calcium Lvl 8.6 8.5 - 10.5 11/13 [facility] CHEM PANEL Creatinine 0.9 0.5 - 1.4 11/13 [facility] Lvl [facility] CHEM PANEL BUN 12 7 - 22 11/13 [facility] CHEM PANEL Potassium Lvl 4.1 3.5 - 5.1 11/13 [facility] CHEM PANEL Sodium Lvl 141 135 - 145 11/13 [facility] CHEM PANEL Glucose Lvl 81 70 - 99 11/13 <sup>4</sup>I nterpretive Medical Data: Adult Center reference range values reflect the clinical guidelines
of the [place] [employer]. HEMATOLOGY Monocytes 4.1 2.0 - 12.0 11/13 [facility] HEMATOLOGY Eosinophils 1.4 0.0 - 4.0 11/13 [facility] HEMATOLOGY Basophils 0.0 0.0 - 1.0 11/13 [facility] HEMATOLOGY Segs-Bands # 4.7 1.5 - 8.1 11/13 [facility] HEMATOLOGY Lymphocytes # 6.0 1.0 - 5.5 11/13 [facility] HEMATOLOGY Monocytes # 0.5 0.0 - 0.8 11/13 [facility] HEMATOLOGY Segs 41.0 45.0 - 11/13 75.0 [facility] HEMATOLOGY Lymphocytes 53.5 20.0 - 11/13 40.0 [facility] HEMATOLOGY Eosinophils # 0.2 0.0 - 0.5 11/13 [facility] HEMATOLOGY Basophils # 0.0 0.0 - 0.2 11/13 [facility] HEMATOLOGY PT 24.2 12.0 - 11/13 14.7 [facility] HEMATOLOGY INR 2.22 0.85 - 11/13 <sup>7</sup>I [facility] s 1.17 nterpretive Medical Data: Center RECOMMENDED [...] HEMATOLOGY Platelet 486 133 - 450 11/13 [facility] HEMATOLOGY RDW 17.1 11.5 - 11/13 [place] 14.5 /2013 [facility] HEMATOLOGY MPV 7.0 7.4 - 10.4 11/13 [facility] HEMATOLOGY MCHC 33.7 32.0 - 11/13 [place] 36.0 [facility] HEMATOLOGY MCH 28.2 27.0 - 11/13 [place] 31.0 [facility] HEMATOLOGY RBC 4.35 4.20 - 11/13 [facility] 5.40 /2013 [facility] HEMATOLOGY WBC 11.4 3.7 - 10.4 11/13 [facility] HEMATOLOGY MCV 83.7 81.0 - 11/13 [facility] 99.0 /2013 [facility] HEMATOLOGY Hgb 12.3 12.0 - 11/13 16.0 [facility] HEMATOLOGY Hct 36.4 36.0 - 11/13 [facility] 48.0 [facility] CHEMISTRY AGAP 15.8 10.0 - 05/12 Normal [facility] 20. [facility] CHEMISTRY eGFR 136 05/12 NA <sup>5</sup>R esult [...] 7.7 8.5 - 10.5 05/12 LOW a [facility] CHEMISTRY BUN 5 7 - 22 05/12 LOW [facility] CHEMISTRY Glucose Lvl 72 70 - 99 05/12 Normal <sup>8</sup>I [facility] T ex nterpretive Medical Data: Adult Center reference range values reflect the clinical guidelines
of the [place] [employer]. CHEMISTRY Chloride Lvl 107 95 - 109 05/12 Normal [facility] CHEMISTRY Potassium Lvl 3.8 3.5 - 5.1 05/12 Normal [facility] HEMATOLOGY Segs-Bands # 7.8 1.5 - 8.1 05/12 Normal [facility] HEMATOLOGY Lymphocytes # 3.5 1.0 - 5.5 05/12 Normal [place] [facility] HEMATOLOGY Monocytes # 0.9 0.0 - 0.8 05/12 [place] [facility] HEMATOLOGY Eosinophils # 0.3 0.0 - 0.5 05/12 Normal Te [facility] HEMATOLOGY Basophils # 0.1 0.0 - 0.2 05/12 Normal [facility] HEMATOLOGY Monocytes 7.4 2.0 - 12.0 05/12 Normal [facility] HEMATOLOGY Basophils 0.7 0.0 - 1.0 05/12 Normal [facility] HEMATOLOGY Lymphocytes 27.8 20.0 - 05/12 Normal [...] MPV 7.7 7.4 - 10.4 05/12 Normal [facility] HEMATOLOGY WBC 12.8 3.7 - 10.4 05/12 [place] [facility] HEMATOLOGY RBC 3.82 4.20 - 05/12 LOW [facility] 5.40 /2012 [facility] HEMATOLOGY Hgb 11.0 12.0 - 05/12 LOW [facility] 16.0 /2012 [facility] HEMATOLOGY Hct 33.8 36.0 - 05/12 LOW [facility] 48.0 /2012 [facility] HEMATOLOGY MCH 28.8 27.0 - 05/12 Normal [facility] 31.0 /2012 [facility] BEDSIDE Gluc POC 89 70 - 99 05/11 Normal <sup>2</sup>I [facility] GLUCOSE nterpretive Medical TESTING Data: Center Upper Reportable Limit: 200 mg/dL. CHEMISTRY Opiate Scr Negative Negative 05/11 Normal [facility] (05/11/2013 02:00:00) Ms dical Center CHEMISTRY PCP Scr Negative Negative 05/11 Normal [facility] (05/11/2013 02:00:00) Ms dical Center CHEMISTRY Propoxyphn Negative Negative 05/11 Normal [facility] Scr (05/11/2013 02:00:00) Ms dical Center CHEMISTRY Cocaine Scr Negative Negative 05/11 Normal [facility] (05/11/2013 02:00:00) Ms dical Center CHEMISTRY Methadone Scr Positive Negative 05/11 ABN [place] *ABN* /2012 Medical (05/11/2013 02:00:00) Ce nter CHEMISTRY Cutoff Values See Note 12 05/11 Normal <sup>12</sup > [facility] (05/11/2013 02:00:00) Interpreti ve Medical Data: Cutoff Center (lowest detectable by EIA) values for Serum Drugscreen:<b r/> THC and PCP: 1 ng/mL
All others: 20 ng/mL

Cutoff (lowest detectable by GC/MS) value for confirmation:
THC and PCP: 1 ng/mL
Benzodiazepi rebecca: 5 ng/ml
All others: 10 ng/ml

Test performed by [facility]
[address] [facility]
[place] [address] CHEMISTRY Starla Scr Negative Negative 05/11 Normal [facility] (05/11/2013 02:00:00) Ms dicwi Center CHEMISTRY Benzodiaz Scr Negative Negative 05/11 Normal [place] as (05/11/2013 02:00:00) [facility] Cannab Scr Negative Negative 05/11 Normal [facility] (05/11/2013 02:00:00) Ms dicwi Center CHEMISTRY Amph Scr Negative Negative 05/11 Normal [facility] (05/11/2013 02:00:00) [facility] CHEMISTRY Ca Ion WB 1.09 1.05 - 05/11 Normal [place] 1. [facility] CHEMISTRY Ca Norm WB 1.07 1.05 - 05/11 Normal [facility] . [facility] CHEMISTRY Magnesium Lvl 2.0 1.8 - 2.4 05/11 Normal [place] [facility] CHEMISTRY Phosphorus 2.6 2.5 - 4.5 05/11 Normal [facility] CHEMISTRY eGFR 108 05/11 NA <sup>6</sup>R esult [...] - 10.5 05/11 [place] /2012 [facility] CHEMISTRY AGAP 17.7 10.0 - 05/11 Normal [place] 20.0 [facility] CHEMISTRY BUN 7 7 - 22 05/11 Normal Medical Center CHEMISTRY Glucose Lvl 59 70 - 99 05/11 [place] <sup>9</sup>I [place] nterpretive Medical Data: Adult Center reference range values reflect the clinical guidelines
of the [place] [employer]. CHEMISTRY Creatinine 0.6 0.5 - 1.4 05/11 Normal [facility] Medical Center CHEMISTRY Sodium Lvl 141 135 - 145 05/11 Normal Medical Center CHEMISTRY Potassium Lvl 3.7 3.5 - 5.1 05/11 Normal Medical Center CHEMISTRY Chloride Lvl 106 95 - 109 05/11 Normal Medical Center CHEMISTRY CO2 21 24 - 32 05/11 LOW [facility] CHEMISTRY Methadone Qnt See Note 13 05/11 Normal <sup>13</sup > [facility] (05/11/2013 02:00:00) Result Me dical Comment: Center Methadone: 158 ng/mL
LOS P: 41 ng/mL HEMATOLOGY WBC 17.2 3.7 - 10.4 05/11 [place] [facility] HEMATOLOGY Platelet 203 133 - 450 05/11 Normal Medical Center HEMATOLOGY MPV 8.7 7.4 - 10.4 05/11 Normal Medical Center HEMATOLOGY MCV 88.4 81.0 - 05/11 Normal [facility] 99.0 Medical Center HEMATOLOGY MCH 29.4 27.0 - 05/11 Normal [place] 31.0 Medical Center HEMATOLOGY RDW 15.3 11.5 - 05/11 [facility] [place] 14.5 Medical Center HEMATOLOGY MCHC 33.2 32.0 - 05/11 Normal [place] 36.0 Medical Center HEMATOLOGY RBC 3.75 4.20 - 05/11 LOW [place] 5.40 /2012 Medical Center HEMATOLOGY Hgb 11.0 12.0 - 05/11 LOW [place] 16.0 /2012 Medical Center HEMATOLOGY Hct 33.1 36.0 - 05/11 [facility] [place] 48.0 Medical Center HEMATOLOGY Monocytes 4.4 2.0 - 12.0 05/11 Normal Medical Center HEMATOLOGY Segs 77.7 45.0 - 05/11 [facility] [place] 75.0 /2012 Medical Center HEMATOLOGY Monocytes # 0.8 0.0 - 0.8 05/11 [place] [facility] [place] HEMATOLOGY Segs-Bands # 13.4 1.5 - 8.1 05/11 [place] Medical Center HEMATOLOGY Lymphocytes # 2.7 1.0 - 5.5 05/11 [place] [facility] HEMATOLOGY Basophils 0.8 0.0 - 1.0 05/11 Normal [facility] HEMATOLOGY Eosinophils 1.5 0.0 - 4.0 05/11 [place] [facility] HEMATOLOGY Lymphocytes 15.6 20.0 - 05/11 LOW [place] 40.0 Medical Center HEMATOLOGY Basophils # 0.1 0.0 - 0.2 05/11 [place] [facility] HEMATOLOGY Eosinophils # 0.3 0.0 - 0.5 05/11 [place] [facility] BEDSIDE Gluc POC Notify 05/11 NA [facility] GLUCOSE Comment 1 RN/MD /2012 Medical TESTING Center BEDSIDE Gluc POC 79 70 - 99 05/11 Normal <sup>3</sup>I [facility] GLUCOSE nterpretive Medical TESTING Data: Center Upper Reportable Limit: 200 mg/dL. HEMATOLOGY Fibrinogen 814 230 - 510 05/10 [facility] Lvl Medical Center HEMATOLOGY Plt Neut Test negative 05/10 [facility] as Platelet /2012 Medical Neutraliza Center tion procedure HEMATOLOGY Lup Interp Negative 05/10 [facility] for lupus Medical anticoagul Center ant (normal dRVVT, positive hexagonal phospholip id neutraliza tion, and negative Platelet Neutraliza tion procedure) . Thrombin Time is normal (16.7 sec) which rules out heparin as interferen ce substance. CPT: 92731 HEMATOLOGY Hex Phos N Positive Negative 05/10 Normal [facility] (05/10/2013 18:12:00) /2012 Ms dical Center HEMATOLOGY dRVV 1.06 <=1.20 05/10 Normal [facility] HEMATOLOGY AT III Func 70 77 - 140 05/10 LOW [facility] HEMATOLOGY Sed Rate >100 mm/hr 0 - 20 05/10 ABN [facility] *ABN* /2012 Medical (05/10/2013 18:12:00) Ce nter HEMATOLOGY Protein S 35 54 - 137 05/10 LOW [facility] Func [facility] HEMATOLOGY Protein C 68 72 - 147 05/10 LOW [facility] Func [facility] Center IMMUNOLOGY Cardiolipin 1 05/10 NA <sup>16</sup> [facility] IgA Interpretive Medical Data: Center Reference Ranges for IgA:
0-11 APL Negative
12-20 APL Inconclusive< br/>21-80 APL Low-Med Positive
> 80 APL Strong Positive IMMUNOLOGY Cardiolipin 1 05/10 NA <sup>17</sup> [facility] [facility] Interpretive Medical Data: Center Reference Ranges for IgG:
0-14 GPL Negative
15-20 GPL Inconclusive< br/>21-80 GPL Low-Med Positive
> 80 GPL Strong Positive IMMUNOLOGY Cardiolipin 5.2 05/10 NA <sup>18</sup> [facility] IgM Interpretive Medical Data: Center Reference Ranges [...] Ag Negative 1 Negative 05/10 Normal <sup>1</sup>I [facility] - SEROLOGY (05/10/2013 16:41:00) /2012 nterpre tive Medical Data: This Center kit tests for Legionella pneumophila Serogroup 1 Antigen. BEDSIDE Gluc POC 96 70 - 99 05/10 Normal <sup>4</sup>I [facility] GLUCOSE nterpretive Medical TESTING Data: Center Upper Reportable Limit: 200 mg/dL. BEDSIDE Gluc POC Notify 05/10 [facility] GLUCOSE Comment 1 RN/MD /2012 Medical TESTING Center URINALYSIS UA Renal Epi 8 <=0 05/10 [facility] URINALYSIS UA Mucus Few /LPF None Seen 05/10 [facility] *NA* Medical (05/10/2013 09:50:39) Ce nter URINALYSIS UA RBC <1 0 - 2 05/10 Normal [facility] URINALYSIS UA Sq Epi Few /LPF Few 05/10 NA *NA* Medical (05/10/2013 09:50:39) Ce nter URINALYSIS UA WBC <1 0 - 5 05/10 Normal [facility] URINALYSIS UA Leuk Est Negative Negative [place] (05/10/2013 09:50:39) /2012 [facility] URINALYSIS UA Nitrite Negative Negative 05/10 Normal [facility] (05/10/2013 09:50:39) [facility] URINALYSIS UA Blood Negative Negative 05/10 Normal [facility] (05/10/2013 09:50:39) [facility] UA Glucose Negative mg/dL Negative 05/10 NA [facility] *NA* [facility] (05/10/2013 09:50:39) Ce nter URINALYSIS UA Bili Negative Negative 05/10 NA [facility] *NA* Medical (05/10/2013 09:50:39) Ce nter URINALYSIS UA 0.1 - 1.0 05/10 NA [facility] Urobilinogen [facility] URINALYSIS UA Ketones TR 05/10 NA [facility] URINALYSIS UA Spec Grav 1.006 <=1.030 05/10 Normal [facility] URINALYSIS UA Turbidity Clear Clear 05/10 Normal [facility] (05/10/2013 09:50:39) Ms dical Center URINALYSIS UA Color Light Yellow [place]/10 [place] Medical (05/10/2013 09:50:39) Ce nter URINALYSIS UA Protein Negative mg/dL Negative 05/10 Normal [facility] (05/10/2013 09:50:39) [facility]INALYSIS UA pH 7.5 5.0 - 8.0 05/10 Normal [facility] CHEMISTRY eGFR 87 05/10 NA <sup>7</sup>R esult [...] Lvl 140 135 - 145 05/10 Normal [facility] CHEMISTRY AGAP 14.6 10.0 - 05/10 Normal [place] 20.0 Medical Center CHEMISTRY Calcium Lvl 7.8 8.5 - 10.5 05/10 [place] [facility] CHEMISTRY Chloride Lvl 105 95 - 109 05/10 Normal Medical Center CHEMISTRY Potassium Lvl 3.6 3.5 - 5.1 05/10 Normal [place] as [facility] CHEMISTRY CO2 24 24 - 32 05/10 Normal Medical Center CHEMISTRY Creatinine 0.8 0.5 - 1.4 05/10 Normal [place] L[facility] Medical [facility] CHEMISTRY BUN 7 7 - 22 05/10 Normal Medical Center CHEMISTRY Glucose Lvl 51 70 - 99 05/10 LOW <sup>10</sup> T ex Interpretive Medical Data: Adult Center reference range values reflect the clinical guidelines
of the [place] [employer]. CHEMISTRY Magnesium Lvl 1.6 1.8 - 2.4 05/10 LOW [place] [facility] CHEMISTRY Phosphorus 2.2 2.5 - 4.5 05/10 LOW Medical Center HEMATOLOGY MCH 29.1 27.0 - 05/10 Normal [place] 31.0 Medical Center HEMATOLOGY Hct 33.8 36.0 - 05/10 LOW [place] 48.0 [facility] HEMATOLOGY MCV 89.2 81.0 - 05/10 Normal [place] 99.0 Medical Center HEMATOLOGY Hgb 11.0 12.0 - 05/10 LOW [place] 16.0 [facility] HEMATOLOGY MPV 8.5 7.4 - 10.4 05/10 Normal [facility] HEMATOLOGY Platelet 202 133 - 450 05/10 Normal [facility] HEMATOLOGY RDW 15.1 11.5 - 05/10 HI [place] 14.5 Medical Center HEMATOLOGY MCHC 32.6 32.0 - 05/10 Normal [place] 36.0 Medical Center HEMATOLOGY RBC 3.79 4.20 - 05/10 LOW [place] 5.40 /2012 Medical Center HEMATOLOGY WBC 22.1 3.7 - 10.4 05/10 HI [place] /2012 Medical Center HEMATOLOGY Basophils # 0.1 0.0 - 0.2 05/10 [place] /2012 [facility] HEMATOLOGY Monocytes # 0.6 0.0 - 0.8 05/10 [place] [facility] HEMATOLOGY Eosinophils # 0.2 0.0 - 0.5 05/10 [place]2012 [facility] HEMATOLOGY Segs 83.0 45.0 - 05/10 HI [place] 75.0 /2012 Medical Center HEMATOLOGY Lymphocytes # 2.9 1.0 - 5.5 05/10 [place] [facility] HEMATOLOGY Segs-Bands # 18.3 1.5 - 8.1 05/10 [place] /2012 [facility] HEMATOLOGY Basophils 0.4 0.0 - 1.0 05/10 Normal [facility] HEMATOLOGY Eosinophils 1.0 0.0 - 4.0 05/10 [place] [facility] HEMATOLOGY Lymphocytes 12.9 20.0 - 05/10 LOW [place] 40.0 /2012 Medical Center HEMATOLOGY Monocytes 2.7 2.0 - 12.0 05/10 Normal [facility] HEMATOLOGY Sed Rate 55 0 - 20 05/09 HI [place] [facility] [place] HEMATOLOGY Fibrinogen 634 230 - 510 05/09 HI [place] Lvl /2012 [facility] IMMUNOLOGY C3 Complement 124 88 - 201 05/09 Normal [place] /2012 [facility] IMMUNOLOGY DNA Ab (DS) Negative Negative 05/09 [place] (05/09/2013 14:56:00) /2012 Ms dical Center IMMUNOLOGY SS-B (La) Ab Negative Negative 05/09 Normal [place] (05/09/2013 14:56:00) Ms dical Center IMMUNOLOGY SS-A (Ro) Ab Negative Negative 05/09 Normal [place] (05/09/2013 14:56:00) Ms dical Center IMMUNOLOGY CRP, High >190.0 mg/L 15 05/09 Normal <sup>15</sup > [place] Sensitivity (05/09/2013 14:56:00) /2012 Interp retive Medical Data: Low Center Risk: <1.0 mg/L
Aver age Risk: 1.0 - 3.0 mg/L
High Risk: >3.0 mg/L
Infl ammation: >10.0 mg/L IMMUNOLOGY KYLE Negative Negative 05/09 Normal [facility] (05/09/2013 14:56:00) Ms dicwi Center IMMUNOLOGY C4 Complement 34 16 - 47 05/09 Normal [facility] [place] CHEMISTRY Phosphorus 2.3 2.5 - 4.5 05/09 LOW [facility] CHEMISTRY Magnesium Lvl 1.4 1.8 - 2.4 05/09 LOW [facility] as /2012 [facility] CHEMISTRY Lactic Acid 1.8 0.5 - 2.2 05/09 Normal [facility] /2012 [facility] Microbiolog Culture: 05/09 [facility] Blood [facility] Microbiolog Culture: 05/09 [facility] Blood [facility] CHEMISTRY LDL 71 <=99 05/09 Normal [facility] CHEMISTRY HDL 36 >=61 05/09 LOW [facility] CHEMISTRY Trig 126 <=149 05/09 Normal [facility] CHEMISTRY Chol 132 <=199 05/09 Normal [facility] CHEMISTRY CHD Risk 3.67 3.90 - 05/09 LOW [facility] 5.80 [facility] CHEMISTRY Hgb A1C 4.9 <=5.6 05/09 Normal [facility] BEDSIDE Gluc POC Notify 05/09 [facility] GLUCOSE Comment 1 RN/ /2012 [facility] TESTING Center CHEMISTRY U Phencyc Scr Negative Negative 05/09 NA [facility] as *NA* /2012 Medical (05/08/2013 19:11:00) Ce nter CHEMISTRY UDS Note See Note 11 05/09 Normal <sup>11</sup> [facility] (05/08/2013 19:11:00) Interpreti ve Medical Data: Drugs [...] CHEMISTRY U Benzodia Positive Negative 05/09 ABN [facility] Scr *ABN* Medical (05/08/2013 19:11:00) Ce nter CHEMISTRY U Cannab Scr Negative Negative 05/09 [facility] [place] *[place] Medical (05/08/2013 19:11:00) Ce nter CHEMISTRY U Cocaine Scr Negative Negative 05/09 [facility] [place] as *NA* Medical (05/08/2013 19:11:00) Ce nter CHEMISTRY U Opiate Scr Negative Negative 05/09 [facility] [place] *NA* Medical (05/08/2013 19:11:00) Ce nter CHEMISTRY U Starla Scr Negative Negative 05/09 [facility] *NA* Medical (05/08/2013 19:11:00) Ce nter CHEMISTRY U Amph Scr Negative Negative 05/09 [facility] [place] *NA* Medical (05/08/2013 19:11:00) Ce nter CHEMISTRY AST 54 0 - 37 05/09 [facility] CHEMISTRY Total Protein 5.8 6.4 - 8.4 05/09 LOW [facility] Medical Center CHEMISTRY Bili Total 0.2 0.2 - 1.3 05/09 Normal Medical Center CHEMISTRY Albumin Lvl 2.8 3.5 - 5.0 05/09 LOW [facility] CHEMISTRY Alk Phos 95 39 - 136 05/09 Normal Medical Center CHEMISTRY ALT 29 0 - 65 05/09 Normal [facility] CHEMISTRY A/G Ratio 0.9 0.7 - 1.6 05/09 Normal [facility] CHEMISTRY B/C Ratio 15 6 - 25 05/09 Normal [facility] CHEMISTRY Globulin 3.0 2.0 - 4.0 05/09 Normal [facility] URINALYSIS UA 0.1 - 1.0 05/09 NA [facility] Urobilinogen /2012 [facility] URINALYSIS UA Turbidity Slight Clear 05/09 ABN ABN* Medical (05/08/2013 19:11:00) Ce nter URINALYSIS UA Spec Grav 1.013 <=1.030 05/09 Normal [facility] URINALYSIS UA Blood Small Negative 05/09 [facility] Medical (05/08/2013 19:11:00) Ce nter URINALYSIS UA Leuk Est Negative Negative 05/09 Normal [facility] (05/08/2013 19:11:00) Ms dical Center URINALYSIS UA Nitrite Negative Negative 05/09 Normal [facility] (05/08/2013 19:11:00) Ms dicwi Center URINALYSIS UA pH 5.0 5.0 - 8.0 05/09 Normal [facility] URINALYSIS UA Protein 30 mg/dL Negative 05/09 [facility] Medical (05/08/2013 19:11:00) Ce nter URINALYSIS UA Glucose Negative mg/dL Negative [facility] (05/08/2013 19:11:00) Ce nter URINALYSIS UA Color Yellow Yellow 05/09 NA Medical (05/08/2013 19:11:00) Ce nter URINALYSIS UA Sq Epi Few /LPF Few 05/09 [facility] Medical (05/08/2013 19:11:00) Ce nter URINALYSIS UA RBC 1 0 - 2 05/09 Normal [facility] URINALYSIS UA Ketones Negative mg/dL Negative 05/09 [facility] (05/08/2013 19:11:00) Ce nter URINALYSIS UA Bili Negative Negative 05/09 NA [facility] *NA Medical (05/08/2013 19:11:00) Ce nter URINALYSIS UA Mucus Few /LPF None Seen 05/09 [facility] (05/08/2013 19:11:00) Ce nter URINALYSIS UA Amorph Occasional /HPF None Seen 05/09 NA [facility] Jaimee *NA Medical (05/08/2013 19:11:00) Ce nter BEDSIDE Comment1 Notify 07/21 NA [facility] GLUCOSE RN/MD /2011 [facility] TESTING Center BEDSIDE Gluc POC 87 70 - 99 07/21 Normal <sup>1</sup>I [facility] GLUCOSE Lifscn nterpretive Medical TESTING Data: Center Upper Reportable Limit: 200 mg/dL. CHEMISTRY LDL 122 0 - 129 07/21 Normal [facility] CHEMISTRY HDL 24 >=35 07/21 LOW 2011 [facility] CHEMISTRY Trig 238 0 - 200 07/21 [facility] CHEMISTRY Chol 194 120 - 200 07/21 Normal 2011 [facility] CHEMISTRY CHD Risk 8.08 3.90 - 12 [facility] 5.80 [facility] CHEMISTRY Phosphorus 3.2 2.5 - 4.5 07/21 Normal [facility] CHEMISTRY Magnesium Lvl 1.9 1.8 - 2.4 07/21 Normal [facility] CHEMISTRY AGAP 14.1 10.0 - 07/21 Normal [facility] 20.0 [facility] CHEMISTRY BUN 9 7 - 22 07/21 Normal [facility] CHEMISTRY Glucose Lvl 77 70 - 99 07/21 Normal <sup>7</sup>I T ex nterpretive Medical Data: Adult Center reference range values reflect the clinical guidelines
of the [place] [employer]. CHEMISTRY eGFR 104 07/21 NA [...] Lvl 101 95 - 109 07/21 Normal [facility] CHEMISTRY Sodium Lvl 138 135 - 145 07/21 [facility] CHEMISTRY Potassium Lvl 4.1 3.5 - 5.1 07/21 [facility] Tommy [facility] CHEMISTRY Creatinine 0.7 0.5 - 1.4 07/21 Normal [facility] CHEMISTRY CO2 27 24 - 32 07/21 [facility] CHEMISTRY Calcium Lvl 8.0 8.5 - 10.5 07/21 LOW [facility] CHEMISTRY Hgb A1C 5.8 07/21 NA <sup>10</sup> [...] MPV 6.8 7.4 - 10.4 07/21 LOW [facility] HEMATOLOGY Platelet 539 133 - 450 07/21 HI [facility] HEMATOLOGY MCV 88.7 81.0 - 07/21 Normal [place] 99.0 [facility] HEMATOLOGY MCH 29.4 27.0 - 07/21 [facility] [place] 31.0 [facility] HEMATOLOGY MCHC 33.1 32.0 - 07/21 [facility] [place] 36.0 /2011 Medical Center HEMATOLOGY [...] 0.5 0.0 - 1.0 12/ Normal Medical [place] HEMATOLOGY Segs-Bands # 5.9 1.5 - 8.1 12 Normal [place] as [facility] HEMATOLOGY Monocytes 6.0 2.0 - 12.0 12 Normal Medical Center HEMATOLOGY Lymphocytes 41.5 20.0 - 12 HI [place] 40.0 Medical Center HEMATOLOGY Eosinophils 1.9 0.0 - 4.0 12 [place] [facility] HEMATOLOGY Segs 50.1 45.0 - 12 Normal [place] 75.0 /2011 Medical Center HEMATOLOGY Monocytes # 0.7 0.0 - 0.8 12/ [place] [facility] HEMATOLOGY Lymphocytes # 4.8 1.0 - 5.5 12 [place] [facility] HEMATOLOGY Eosinophils # 0.2 0.0 - 0.5 07/21 [place] [facility] HEMATOLOGY Basophils # 0.1 0.0 - 0.2 07/21 [place] [facility] Microbiolog Culture: 07/21 [facility] y Urine [facility] BEDSIDE Gluc POC 112 70 - 99 07/21 [place] <sup>2</sup>I [facility] GLUCOSE Lifscn nterpretive Medical TESTING Data: Center Upper Reportable Limit: 200 mg/dL. BEDSIDE Comment1 Notify 07/21 [facility] GLUCOSE RN/MD /2011 Medical TESTING Center URINALYSIS UA Ketones TR 07/21 [facility] URINALYSIS UA 0.1 - 1.0 07/21 [facility] Urobilinogen /2011 [facility] URINALYSIS UA Color Yellow Yellow 12/04 NA [facility] Medical (07/20/2012 19:10:00) Ce nter URINALYSIS UA Protein 20 mg/dL Negative 07/21 ABN Medical (07/20/2012 19:10:00) Ce nter URINALYSIS UA pH 6.5 5.0 - 8.0 07/21 Normal [facility] URINALYSIS UA Glucose Negative mg/dL Negative 07/21 NA [facility] Medical (07/20/2012 19:10:00) Ce nter URINALYSIS UA Spec Grav 1.020 <=1.030 07/21 Normal [facility] URINALYSIS UA Turbidity Slight Clear 07/21 ABN Medical (07/20/2012 19:10:00) Ce nter URINALYSIS UA Nitrite Negative Negative 07/21 Normal [facility] (07/20/2012 19:10:00) [facility] URINALYSIS UA Leuk Est Trace Negative 07/21 ABN Medical (07/20/2012 19:10:00) Ce nter URINALYSIS UA Sq Epi Many /LPF Few 07/21 ABN Medical (07/20/2012 19:10:00) Ce nter URINALYSIS UA Blood Small Negative 07/21 [facility] Medical (07/20/2012 19:10:00) Ce nter URINALYSIS UA Bili Negative Negative 07/21 NA Medical (07/20/2012 19:10:00) Ce nter URINALYSIS UA Amorph Occasional /HPF None Seen 07/21 NA [facility] Jaimee * Medical (07/20/2012 19:10:00) Ce nter URINALYSIS UA Mucus Few /LPF None Seen 07/21 [facility] Medical (07/20/2012 19:10:00) Ce nter URINALYSIS UA Bacteria Few /HPF None Seen 07/21 NA Tommy as * Medical (07/20/2012 19:10:00) Ce nter URINALYSIS UA RBC 1 0 - 2 07/21 Normal [facility] URINALYSIS UA WBC 6 0 - 5 07/21 HI [facility] URINALYSIS UA Hyal Cast 1 0 - 2 07/21 Normal [facility] BEDSIDE Comment1 Notify 07/20 NA [facility] GLUCOSE RN/MD Medical TESTING Center BEDSIDE Gluc POC 86 70 - 99 07/20 Normal <sup>3</sup>I [facility] GLUCOSE Lifscn nterpretive Medical TESTING Data: Center Upper Reportable Limit: 200 mg/dL. CHEMISTRY AGAP 14.7 10.0 - 07/20 Normal [facility] 20.0 [facility] CHEMISTRY eGFR 88 07/20 NA <sup>5</sup>R esult [...] values reflect the clinical guidelines
of the [place] [employer]. CHEMISTRY BUN 13 7 - 22 07/20 Normal [facility] CHEMISTRY Creatinine 0.8 0.5 - 1.4 07/20 Normal [facility] Lvl [facility] CHEMISTRY Sodium Lvl 137 135 - 145 07/20 Normal [facility] CHEMISTRY Potassium Lvl 3.7 3.5 - 5.1 07/20 Normal [place] as [facility] CHEMISTRY Chloride Lvl 97 95 - 109 07/20 Normal [facility] CHEMISTRY CO2 29 24 - 32 07/20 Normal Medical Center CHEMISTRY Calcium Lvl 8.3 8.5 - 10.5 12 [place] [facility] HEMATOLOGY Monocytes # 0.7 0.0 - 0.8 12 [place] [facility] HEMATOLOGY Lymphocytes # 4.3 1.0 - 5.5 12 [place] [facility] [place] HEMATOLOGY Segs-Bands # 6.9 1.5 - 8.1 [...] Monocytes 5.6 2.0 - 12.0 07/20 Normal [facility] HEMATOLOGY Lymphocytes 35.7 20.0 - [...] MPV 6.8 7.4 - 10.4 12 LOW [facility] HEMATOLOGY Platelet 571 133 - 450 12 [facility] HEMATOLOGY RDW 15.6 11.5 - 12 HI [place] 14.5 Medical [place] HEMATOLOGY MCHC 33.3 32.0 - 12 Normal [place] 36.0 Medical [place] HEMATOLOGY MCH 29.4 27.0 - 12 Normal [place] 31.0 [facility] BLOOD BANK Antibody Scrn Negative 07/19 Normal [facility] Tommy as RESULTS (07/19/2012 07:30:00) [facility] BLOOD BANK ABO/Rh O POS 07/19 Unknown [facility] RESULTS [facility] CHEMISTRY Total CK 62 12 - 191 07/19 Normal [facility] CHEMISTRY eGFR 67 07/19 NA <sup>6</sup>R esult [...] CO2 30 24 - 32 07/19 Normal [facility] CHEMISTRY Calcium Lvl 8.8 8.5 - 10.5 07/19 Normal [facility] CHEMISTRY BUN 12 7 - 22 07/19 Normal [facility] CHEMISTRY Creatinine 1.0 0.5 - 1.4 07/19 Normal [facility] CHEMISTRY Glucose Lvl 106 70 - 99 07/19 [place] <sup>9</sup>I T ex nterpretive Medical Data: Adult Center reference range values reflect the clinical guidelines
of the [place] [employer]. CHEMISTRY Potassium Lvl 4.1 3.5 - 5.1 07/19 Normal [facility] CHEMISTRY Chloride Lvl 99 95 - 109 07/19 Normal [facility] CHEMISTRY Sodium Lvl 138 135 - 145 07/19 Normal [facility] CHEMISTRY AGAP 13.1 10.0 - 07/19 Normal [facility] 20.0 [facility] CHEMISTRY Troponin-I <0.02 0.00 - 07/19 Normal [facility] 0.40 /2011 [facility] HEMATOLOGY Anisocyte 1+ None Seen 07/19 ABN [facility] *ABN* Medical (07/19/2012 07:30:00) Ce nter HEMATOLOGY Atypical 0.0 <=0.0 07/19 Normal [facility] Lymphs [facility] HEMATOLOGY Large Plt Slight None Seen 07/19 ABN [facility] *ABN* Medical (07/19/2012 07:30:00) Ce nter HEMATOLOGY Polychrom Slight None Seen 07/19 Normal [facility] (07/19/2012 07:30:00) /2011 Ms dical Center HEMATOLOGY Bands 0.0 0.0 - 11.0 12 Normal [facility] HEMATOLOGY Monocytes 4.0 2.0 - 12.0 07/19 Normal [facility] HEMATOLOGY Lymphocytes 30.0 20.0 - 07/19 Normal [place] 40.0 [facility] HEMATOLOGY Eosinophils 1.0 0.0 - 4.0 07/19 [place] [facility] HEMATOLOGY Lymphocytes # 5.4 1.0 - 5.5 07/19 [place] [facility] HEMATOLOGY Segs-Bands # 11.8 1.5 - 8.1 07/19 [place] as [facility] HEMATOLOGY Eosinophils # 0.2 0.0 - 0.5 07/19 [place] [facility] HEMATOLOGY Monocytes # 0.7 0.0 - 0.8 07/19 [place] [facility] HEMATOLOGY Segs 65.0 45.0 - 07/19 Normal [facility] 75.0 [facility] HEMATOLOGY INR 0.97 0.85 - 07/19 Normal <sup>11</sup> [place] 1.17 Interpretive Medical Data: Center RECOMMENDED RANGES FOR PROTIME INR:
2.0-3.0 for most medical and surgical thromboemboli c states.
2.5-3.5 for artificial heart valves and recurrent embolism.<br/ >
INR SHOULD BE USED ONLY FOR PATIENTS ON STABLE ANTICOAGULANT THERAPY. HEMATOLOGY PT 13.1 12.0 - 12 Normal [place] 14.7 [facility] HEMATOLOGY Estimated % 4.1 0.0 - 7.5 07/19 [place] [facility] HEMATOLOGY Rapid TEG Citrated 07/19 NA [facility] Sample Type [facility] Blood [place] HEMATOLOGY ACT (TEG) 113 86 - 118 07/19 Normal [facility] HEMATOLOGY [place] 0.6 07/19 NA [facility] HEMATOLOGY Angle 82 64 - 80 07/19 [facility] HEMATOLOGY Max Amp 81 52 - 71 12 [facility] HEMATOLOGY K-time 0.8 0.6 - 2.3 07/19 Normal [facility] HEMATOLOGY G-value 20.9 5.0 - 11.6 12 [facility] HEMATOLOGY R-time 0.7 0.4 - 0.7 07/19 Normal [facility] HEMATOLOGY PTT 32.1 22.9 - 12 Normal <sup>[place]sup[place] 35.8 /2011 Interpretive Medical Data: Heparin Center Therapeutic Range: 57 - 92 [place] HEMATOLOGY Hgb 15.0 12.0 - 12 Normal [facility] 16.0 /2011 [facility] HEMATOLOGY RBC 5.06 4.20 - 12 Normal [facility] 5.40 /2011 [facility] HEMATOLOGY RDW 14.8 11.5 - 12 [facility] 14.5 /2011 [facility] HEMATOLOGY MCHC 33.3 32.0 - 12/ Normal [facility] 36.0 /2011 [facility] HEMATOLOGY WBC 18.1 3.7 - 10.4 12 [facility] HEMATOLOGY Hct 44.9 36.0 - 12/ Normal [facility] 48.0 /2011 [facility] HEMATOLOGY MPV 7.1 7.4 - 10.4 12 LOW [facility] HEMATOLOGY MCH 29.5 27.0 - 12/ Normal [facility] 31.0 /2011 [facility] HEMATOLOGY MCV 88.8 81.0 - 12/ Normal [facility] 99.0 /2011 [facility] HEMATOLOGY Platelet 634 133 - 450 12 [facility] Pathology Reports No Data Provided for This Section Diagnostic Reports Report Value Date Source Brain wo contrast MRI EXAM: MRI BRAIN WITHOUT CONTRAST 9 [facility] Medical DATE: 03/10/2019 14:02 CDT Center INDICATION: [...] EXAM: CTA CHEST WITH CONTRAST 03/09/2019 [facility] [place] [facility] Embolism CTA DATE: 03/09/2019 18:09 CDT [...] MRI EXAM: MRI BRAIN WITHOUT CONTRAST 9 [facility] DATE: 03/09/2019 9:46 PM CDT [facility] INDICATION: - new slurred speech, L facial [...] LUMBAR PUNCTURE UNDER FLUOROSCOP IC GUIDANCE 03/17/2015 [facility] DX [place] DATE: Mar 17, 2015 03:30:39 PM INDICATION: [...] OCTOBER 30, 2014 AT 1:40 A.M. 10/16 [facility] HISTORY: 49-year-old female with tube placement/ removal/reposition. [...] OCTOBER 29, 2014 AT 2:00 A.M. 10/16 [facility] HISTORY: 49-year-old female with abnormal chest sounds. FINDINGS: Comparison is made to October 28. The cardiomediastinal silhou ette is stable. Life support lines and tubes remain in place. Subsegmental atelectasis is seen in the left lower lobe. The costophrenic sulci are sharp, without effusions. IMPRESSION: Left lower lobe subsegmental atelect asis. Brain wo contrast MRI EXAM: MRI BRAIN WITHOUT CONTRAST 5 [facility] DATE: 10/28/2014 at 2153 hours INDICATION: Altered [...] October 28, 2014 AT 1:19 a.m. 10/16 [facility] HISTORY: 49-year-old female with tube placement/ removal/reposition. [...] AP DX INDICATION: Dobhoff tube placement. 10/27/2014 [facility] EXAM: ABDOMEN XR, 1 view. TECHNIQUE: Limited [...] October 27, 2014 a 1:15 a.m. 10/27 [facility] HISTORY: 49-year-old female with abnormal chest sounds. [...] EXAM: CT CHEST WITH IV CONTRAST 10/26/2014 [facility] DATE: Oct 26, 2014 03:26:53 PM INDICATION: [...] CT EXAMINATION: CT head without contrast. 10/16 [facility] DATE: 10/26/2014. INDICATION: Altered level of consciousness. [...] CTA ABDOMEN/PELVIS WITH INTRAVENO US CONTRAST 10/26/2014 [facility] DATE: October 26, 2014 INDICATION: Abdominal pain, [...] 1view DX PORTABLE CHEST 2014-10-26 11:56:00 10/26/2014 [facility] COMPARISON: Same day at 10:00 a.m. CLINICAL [...] DX Portable ap semierect chest 10/26/2014 10/26/2014 [facility] HISTORY: Central line placement. Comparison is m [...] EXAM: MRI OF THE BRAIN WITHOUT CONTRAST [facility] DATE:Nov 13, 2013 08:22:00 AM CLINICAL HISTORY: [...] Chest 1view EXAM: CHEST 1 VIEW 11/13/2013 [facility] DATE: Nov 13, 2013 04:17:00 AM INDICATION: CVA/TIA COMPARISON: Prior study dated 05/08/2013 TECHNIQUE: Single portable radiograph of the [facility] st FINDINGS: The cardiac silho uette is unremarkable. The lungs are clear bilaterally. The costophrenic sulci are clear and well demarcated. The osseous structures and soft tissues are unremarkable. IMPRESSION: No radiographic evidence of an acut e cardiopulmonary process. Extremity lower VENOUS DOPPLER ULTRASOUND BILATERAL LOWER EXTREM ITY: 05/10/2013 [facility] venous doppler bilat Center US CLINICAL INDICATION: Pain and swelling. TECHNIQUE: The veins of the bilateral lower extremities were evaluated with grayscale, color-flow and spectral Doppler ultrasound. FINDINGS: The common femoral , superficial femoral, and popliteal veins demonstrate normal compressibility and color Doppler signal. IMPRESSION: Negative for DVT bilaterally. Pelvis w/wo contrast EXAM: MRV PELVIS WITHOUT AND WITH CONTRAST 05/10/2013 [facility] DATE: 05/10/2013. INDICATION: 47-year-old fema le with [...] CT CT SCAN OF THE BRAIN 05/10/2013 [facility] DATE: 05/10/2013 at 1:56 a.m. [...] CTA EXAM: HEAD AND NECK CTA 05/09/2013 [facility] DATE: May 09, 2013 12:30:00 PM CLINICAL [...] EXAM: MRI brain without contrast. 05/09/20 13 [facility] INDICATION: Facial numbness. COMPARISON: MRI July 19, [...] 2 VIEWS dated 2013-05-09 00:05:00 05/08/20 13 [facility] COMPARISON: Same day at 9:08 a.m. CLINICAL [...] Comments Source Systolic (mm Hg) 133 03/13/[address] [facility] [place] [place] Diastolic (mm Hg) 83 03/13/2019 [facility] Temperature Oral (F) 97.0 F 03/13/2019 [facility] Respitory Rate 14 03/13/2019 [facility] Heart Rate 98 03/12/2019 [facility] Respitory Rate 18 03/12/2019 [facility] Systolic (mm Hg) 134 03/12/[address] [facility] [place] [place] Diastolic (mm Hg) 83 03/12/2019 [facility] Heart Rate 95 03/12/2019 [facility] Systolic (mm Hg) 147 03/12/2019 [facility] [place] Diastolic (mm Hg) 92 03/12/2019 [facility] Temperature Oral (F) 97.3 F 03/12/2019 [facility] Respitory Rate 18 03/12/2019 [facility] Heart Rate 98 03/12/2019 [facility] Temperature Oral (F) 97.3 F 03/12/2019 [facility] Weight 99.318 03/10/2019 [facility] Weight 97.727 03/10/[facility] Height 160.02 cm 03/10/2019 [facility] BMI Calculated 38.17 03/10/2019 [facility] Center Weight 97.5 03/09/2019 [facility] BMI Calculated 32.68 03/09/2019 [facility] Center Height 172.72 cm 03/09/2019 [facility] Temperature Oral (F) 97.5 F 03/22/2015 [facility] Heart Rate 70 03/22/2015 [facility] Respitory Rate 17 03/22/2015 [facility] Center Systolic (mm Hg) 102 03/22/2015 [facility] Diastolic (mm Hg) 64 03/22/2015 [facility] Heart Rate 69 03/22/2015 [facility] Respitory Rate 17 03/22/2015 [facility] Center Temperature Oral (F) 97.4 F 03/22/2015 [facility] Center Systolic (mm Hg) 134 03/22/2015 [facility] Diastolic (mm Hg) 79 03/22/2015 [facility] Center Systolic (mm Hg) 133 03/22/2015 [facility] Diastolic (mm Hg) 84 03/22/2015 [facility] Heart Rate 69 03/22/2015 [facility] Temperature Oral (F) 97.8 F 03/22/2015 [facility] Respitory Rate 17 03/22/2015 [facility] Center Weight 110.3 03/17/2015 [facility] Height 160.02 cm 03/17/2015 [facility] BMI Calculated 43.08 03/17/2015 [facility] Center Temperature Oral (F) 98.1 F 11/01/2014 [facility] Center Heart Rate 86 11/01/2014 [facility] Respitory Rate 18 11/01/2014 [facility] Center Systolic (mm Hg) 126 11/01/2014 [facility] Diastolic (mm Hg) 77 11/01/2014 [facility] Temperature Oral (F) 98.6 F 10/31/2014 [facility] Heart Rate 83 10/31/2014 [facility] Respitory Rate 18 10/31/2014 [facility] Systolic (mm Hg) 121 10/31/2014 [facility] Diastolic (mm Hg) 85 10/31/2014 [facility] Center Temperature Oral (F) 98.2 F 10/31/2014 [facility] Center Respitory Rate 18 10/31/2014 [facility] Systolic (mm Hg) 140 10/31/2014 [facility] Diastolic (mm Hg) 86 10/31/2014 [facility] Center Heart Rate 68 10/31/2014 [facility] Weight 110.3 10/26/2014 [facility] BMI Calculated 43.08 10/26/2014 [facility] Height 160.02 cm 10/26/2014 [facility] Diastolic (mm Hg) 77 11/14/2013 [facility] Center Heart Rate 96 11/14/2013 [facility] Systolic (mm Hg) 129 11/14/2013 [facility] Respitory Rate 20 11/14/2013 [facility] Center Temperature Oral (F) 98.3 F 11/14/2013 [facility] Center Heart Rate 90 11/14/2013 [facility] Respitory Rate 20 11/14/2013 [facility] Temperature Oral (F) 98.0 F 11/14/2013 [facility] Center Systolic (mm Hg) 132 11/14/2013 [facility] Diastolic (mm Hg) 84 11/14/2013 [facility] Center Diastolic (mm Hg) 75 11/14/2013 [facility] Center Systolic (mm Hg) 155 11/14/2013 [facility] Temperature Oral (F) 97.4 F 11/14/2013 [facility] Center Respitory Rate 17 11/14/2013 [facility] Height 162.56 cm 11/13/2013 [facility] Weight 96.364 11/13/2013 [facility] BMI Calculated 36.47 11/13/2013 [facility] BMI Calculated 37.63 11/13/2013 [facility] Height 160.02 cm 11/13/2013 [facility] Weight 96.364 11/13/2013 [facility] Heart Rate 99 11/13/2013 [facility] Heart Rate 62 05/12/2013 [facility] Diastolic (mm Hg) 90 05/12/2013 [facility] Center Systolic (mm Hg) 158 05/12/2013 [facility] Respitory Rate 16 05/12/2013 [facility] Diastolic (mm Hg) 90 05/12/2013 [facility] Center Systolic (mm Hg) 168 05/12/2013 [facility] Respitory Rate 19 05/12/2013 [facility] Heart Rate 77 05/12/2013 [facility] Temperature Oral (F) 99.1 F 05/12/2013 [facility] Center Diastolic (mm Hg) 97 05/12/2013 [facility] Center Systolic (mm Hg) 156 05/12/2013 [facility] Respitory Rate 20 05/12/2013 [facility] Center Heart Rate 69 05/12/2013 [facility] Temperature Oral (F) 99.8 F 05/12/2013 [facility] Temperature Oral (F) 99.8 F 05/12/2013 [facility] Height 160.02 cm 05/09/2013 [facility] Weight 98.182 05/09/2013 [facility] Respitory Rate 18 07/22/2012 [facility] Systolic (mm Hg) 115 07/22/2012 [facility] Diastolic (mm Hg) 62 07/22/2012 [facility] Center Temperature Oral (F) 98.6 F 07/22/2012 [facility] Center Heart Rate 65 07/22/2012 [facility] Diastolic (mm Hg) 61 07/21/2012 [facility] Center Systolic (mm Hg) 96 07/21/2012 [facility] Temperature Oral (F) 97.2 F 07/21/2012 [facility] Heart Rate 64 07/21/2012 [facility] Respitory Rate 16 07/21/2012 [facility] Center Temperature Oral (F) 98.5 F 07/21/2012 [facility] Heart Rate 64 07/21/2012 [facility] Respitory Rate 18 07/21/2012 [facility] Diastolic (mm Hg) 85 07/21/2012 [facility] [place] Systolic (mm Hg) 134 07/21/2012 [facility] [place] Weight 113.636 07/19/2012 [facility] Height 160.02 cm 07/19/2012 [facility] Encounters Location Location Encounter Encounter Reason Attending ADM DC Stat us Source Details Type Number For Visit Provider Date Date [facility] Inpatient [id number] CEREBRAL LISA 07/19 07/21 Acti [facility] VASCULAR ANAND /2011 [facility] ACCIDENT Center [facility] Inpatient [id number] AMS JILLIAN 05/08 05/12 Active [facility] CHERNYSHEV /2012 [facility] Inpatient [id number] _MAPID:[id number] Amrou 11/13 11/14 [facility] [id number] Yessenia /[address] Inpatient [id number] Amrou 10/26 11/01 [facility] /2014 [facility] Inpatient [id number] Atif Krell 03/16 03/23 [facility] /2014 [facility] Inpatient [id number] Cerena 03/09 03/13 [facility] Kaur /2018 [facility] Procedures Procedure Code Date Perfomer Comments Source Spinal puncture, 19855 03/17/2015 [facility] therapeutic, for Medical drainage of [place] cerebrospinal fluid (by needle or catheter) Appendectomy [id number] [facility] Cholecystectomy [id number] [facility] Ankle [id number] WITH SCREWS [facility] fusion<sup>1</sup> [facility] Appendectomy [id number] [facility] Cholecystectomy [id number] [facility] Fixation of fracture [id number] [place] using plate [facility] Hysterectomy [id number] [facility] Assessment and Plan Assessment and Plan Date Source Extracted from:Title: Stroke Progress Note 03/13/2019 [facility] Author: Bibiana Cortes MD Date: 03/12/19 Patient: Isabell Delilah Overnight: No issues overnight. Patient feels her speech has returned to her baseline. History of Present Illness: 53 yr old female with PMH of CHF, recent CVA, APLS, on ASA and Statin transferred form [place] after presenting 36 hrs post worsening neurological deficits. Pt with worsening dysarthria, left sided hem isensory loss. CTH - no evidence of evol ving ischemia - however old encephalomalacia in R-MCA territory, CTA no LVO. She was given ASA 300mg IN prior to transfer. On evaluation her BP [...] 2014. Per patient, she followed with outpatient Motion Picture Film Examiner who switched her from Xarelto to aspirin. [...] off. Please call Stroke Consult Team with [facility]. Rosey Doyle MD Vascular Neurology Fellow PGY-6 Pager# [phone] Extracted from:Title: Cardiology Consult Note Author: Barb Garza MD Date: 03/10/19 53 yo F with [...] K>4 and mag>2), telemetry. Barb Garza MD Nurse Care Manager Department of Internal Medicine Division of Cardiovascular Medicine Extracted from:Title: Team A History and Physical Author: Sandrita Starks MD Date: 03/10/19 53 yo F, PMHx of CVA (R MCA w/ residual dysarthria, L sided weakness), HTN, and COPD, presents to ED as transfer from OSH ([place], [place]) with worsening slurred speech and L facial [...] given 300mg ASA prior to transfer to [facility]. In ED here, pt given 1L bolus [...] QD Diet NPO, failed dysphagia screen per DEICER FINISHER Heparin Pending clinical improvement Teaching Physician Attestation: I saw an d evaluated the patient with the resident team. I reviewed the clinical data and confirmed the findings. We formulated the assessment and plans. I agree withthis note. Dario Downs MD Extracted from:Title: General Neurology Discharge Summary [facility] Author: Yue Anderson MD Date: 03/22/15 General [...] who p resented as a transfer from [facility] for HLOC for encephalitis with background history [...] -> 94.9 (03/16/2015). [facility] given CSF analysis, interim changes in MRI, and history of APLA and CVA. Hypercoaguable lab abnormalities: ESR 55 CRP 100m protein C activity low at 68% ATIII 79% IgM anticoagulant elevated 5.2 lupus anticoagulant detected. Repeat labs done by Dr Gardiner in 07/2013 showed normal anti-carrdiolipin panel, CRP wnl and ESR 40 Hospital Course: Admitted to ICU, transferred down to [facility] or soon after transfer to [facility], after patient remained stable with stable exam. LP with IR, opening pressure 14. CSF showed signs of continued infection versus inf lammation: WBC 40 RBC 3 L 90 E N Glu 42 Protein 71. ID consulted, recs to continue IV acyclovir. HSV negative x2, at OSH and [facility]. Patient symptomatically improving with acyclovir, increased [...] changes insurance, would like to see in [place] [facility] after repeat antiphospholipid antibody [...] Physical Patient: Delilah Whyte Attending of Record: Sebastian Chief Complaint: Consulted for stroke Prophylaxis History [...] twitc leonor. Patient was transferred to our [facility] for higher level of care. Repeat MRI [...] Cranial Nerves: EOMI, fundi normal, v isual mullne full, PERRL 3mm/brisk bilaterally, facial sensation intact, [...] the past, then I would recommend a cardiac exercise specialist - Repeat MRI to follow up on [...] ssion, PTSD presents as an transfer from [facility] for HLOC. The patient initially presented to [...] APLA and CVA, she was transferred to [facility] for HLOC. 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 Right and left horizon ana [...] (286.9) 6. hyperlipidemia (272.4) Level of service: 40882 Tim John MD, PhD #[id number] Nurse Care Manager of Neurology Extracted from:Title: Clinical Document Author: [...] ssion, PTSD presents as an transfer from [facility] for HLOC. The patient initially presented to [...] APLA and CVA, she was transferred to [facility] for HLOC. Review of Systems: GEN: low [...] Brittni borrero. Per EMR review, her Swapnil ([id number]) is listed as her next of kin. [...] intact, repetition and naming intact. 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 General Neurology is primary, please call [phone] with questions. Ashley Rosas PGY-3 [facility] Neurology NEUROLOGY ATTENDING I personally discussed this [...] verbal output on exam, but can answer [facility] (unsure which one), and her name. (3) HYPERCOAGULABLE STATE/ s/p STROKE: h ypercoagulable state: apparently (+) here and (-) at OSH. Need clarification before restarting Xarelto. (4) SEIZURES: agree w/Keppra 1000 bid. N ewly on AEDs? Agree w/dose and watching pt. DIAGNOSES ENCEPHALITIS SEIZURES APHASIA HYPERCOAGULABLE STATE CPT 14901 Extracted from:Title: Stroke Transfer Summary 11/01/2014 [facility] Author: Gael Peña MD Date: 10/31/14 Stroke [...] all questions were answered. Pablo Peña MD [facility] PGY-2 Extracted from:Title: Cardiology Consult [...] concerns. Nacho Valencia MD Resident, PGY-1 Pager: [phone] CARDIOLOGY STAFF I saw and examined the [...] Ladd M.D. Extracted from:Title: Clinical Document 11/14/2013 [facility] Author: Tanmay Pedroza Date: 11/14/2013 Stroke Progress Note - Daily [facility] mpleted: Oct, 08:32 by [...] propylaxis Dispo - plan to transfer to [facility] for further workup, no acute stroke STROKE NEUROLOGY STAFF I have seen and examined the patient. Fu rthermore, I have discussed the case with and reviewed 's note and agree with the history, exam, assessment and plan. See note below for additions and/or exceptions and my findings. I hav e personally viewed the patient's radiographic studies and laboratory tests. Assessment / Plan: 29206 Weakness-728.87 Hypercoagulable state-289.82 Numbness-782.0 48 years old [...] coumadin with therapeutic INR. Wilberto Garcia M.D. Nurse Care Manager Dept of Neurology [phone] (pager) Extracted from:Title: Clinical Document Author: Damian [...] 2.7 on 11/02) who was transferred to [facility] from [facility] for possible ischemic stroke. Per the [...] time window. She was subsequently transferred to [facility] for stroke workup. On my assessment, the pt states that she continues to experience right-sided headache (but it is resolving) and left arm weakness which has n ot significantly changed since she arriv ed to [facility] [place]. Initial NIHSS 7 (see details below). Of note, she was admitted to the [facility] service in 04/2013 for left FD and [...] The pt lives with her daughter in [place], [place]. She is from her . 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 Assessment / Plan: 52815 Weakness-728.87 Hypercoagulable state-289.82 Numbness-782.0 48 years old [...] has also been emphasized. Wilberto Garcia M.D. Nurse Care Manager Dept of Neurology [phone] (pager) Plan of Care No Data Provided for This Section Social History Social History Date Source Social History TypeResponse 03/17/2015 [facility] Substance Abuse Use: None. Alcohol Past, Type [...] 2 entered on: 03/10/19 1Stopped smoking in [id number] 6-12 cigarettes per day Family History No Data Provided for This Section Advance Directives No Data Provided for This Section Functional Status No Data Provided for This Section
--- OUTSIDE RECORDS SUMMARY | 2020-04-17 23:43 | XMS REPORT | Summary of Care ---
:1965 Author Organization [facility] Address [address] [place] [id number] Care Team Providers Name Role Phone James Burton Primary Care Provider Reason for Visit Reason Comments Refill Request Encounter Details Date Type Department Care Team Description 03/27/2020 Refill [facility] Cardiology- Ludwig Escobar MD Refill Request [place] [address] [place] [address], [address] [facility] [address] [place] [address] [place] [address] [phone] Allergies Active Allergy Reactions Severity Noted Date Comments Prochlorperazine Edisylate Nausea and/or 08/21/2005 Vomiting Divalproex Sodium Anxiety 08/21/2005 Gabapentin Unknown - See 01/02/2008 Blurred vision comments Nsaids (Non-Steroidal Nausea and/or 06/15/2015 Anti-Inflammatory Drug) Vomiting Butorphanol Tartrate Rash 08/21/2005 Ketorolac Tromethamine Rash 08/21/2005 documented as of this encounter (statuses as of 03/28/2020) Medications Medication Sig Dispensed Refills Start Date End Date Status atorvastatin 80 mg Take 1 tablet by 30 tablet 3 09/03/2019 Active tabletIndications: mouth at S/P CABG (coronary bedtime. artery bypass graft), Coronary artery disease involving [place] coronary artery of [place] heart with angina pectoris LORazepam 2 mg [...] PRN based disease involving on leg swelling [place] coronary and body weight) artery of [place] for up to 30 heart with angina doses. pectoris, NSTEMI (non-ST elevated myocardial infarction) KCL 20 mEq Take 1 tablet by 30 tablet 2 11/07/2019 A ctive tabletIndications: mouth as needed Coronary artery (Recommend to disease involving take KCL if [place] coronary taking lasix.) artery of [place] for up to 30 heart with angina doses. pectoris, NSTEMI (non-ST elevated myocardial infarction) apixaban 5 mg Take 1 tablet by 60 tablet 1 11/12/2019 Active tabletIndications: mouth 2 (two) deep vein times daily. thrombosis Indications: prevention deep vein thrombosis prevention METOPROLOL TAKE ONE TABLET 60 tablet 0 03/28/2020 Ac tive TARTRATE 50 mg BY MOUTH TWICE A tabletIndications: DAY NSTEMI (non-ST elevated myocardial infarction), Bacteremia due to Enterobacter species metoprolol Take 1 tablet by 60 tablet 0 11/10/2019 D iscontinued tartrate 50 mg mouth 2 (two) 0 tabletIndications: times daily. NSTEMI (non-ST elevated myocardial infarction), Bacteremia due to Enterobacter species documented as of this encounter (statuses as of 03/28/2020) Active Problems Problem Noted Date Weakness 12/25/2019 Pericardial effusion 10/25/2019 Arm DVT (deep venous thromboembolism), acute, left 04/2020 Chest pain 10/24/2019 NSTEMI (non-ST elevated myocardial infarction) 020 Left sided numbness 09/03/2019 S/P CABG (coronary artery bypass graft) 06/30/2019 Leukocytosis 06/16/2019 Tachycardia 06/15/2019 Coronary artery disease involving [place] coronary [place] of [place] heart 06/08/2019 with angina pectoris Overview: Added automatically from request for ilan de la cruz [id number] Sepsis 05/03/2019 Obesity (BMI 30-39.9) 05/03/2019 Other [...] as of this encounter (statuses as of 03/28/2020) Immunizations Name Administration Dates Next Due Influenza [...] Assigned at Date Recorded Not on file documented as of this encounter Last Filed Vital Signs Not on filedocumented in this encounter Plan of Treatment Health Maintenance Due Date Last Done Comments DTaP,Tdap,and Td Vaccines (1 - Tdap) 1983 PAP SMEAR 1985 Breast Cancer Screening (MAMMOGRAM) 2004 COLON CANCER SCREENING ANNUAL FIT/FOBT 2014 COLON CANCER SCREENING FIT DNA EVERY 3 2014 YEARS COLON CANCER SCREENING SIGMOIDOSCOPY EVERY 2014 5 YEARS COLONOSCOPY 2014 Colorectal Cancer Screening 2014 Zoster Recombinant Vaccine (SHINGRIX) (1 2014 of 2) LUNG CANCER SCREEN: Recommended for age 1208/01/2019 55-80 with 30 + pack year history INFLUENZA VACCINE (#1) 2020 10/18/2019, 12/10/2018 Depression Screening 06/30/2020 06/30/2019 PNEUMOCOCCAL 0-64 YEARS COMBINED SERIES Completed 12/11/19 19 HEPATITIS C (HCV) SCREEN Completed 10/11/2019 documented as of this encounter Implants Implanted Type Area Comber Setter Device Shelf Expiration Model / Identifier Date [...] / Subscriber ID Effective Phone Address [facility] Group Dates KARMA PARADA [id number] 2015-[address] [place] [facility] [place] [id number] MANAGED MEDICAID [place], [place] documented as of this encounter Advance Directives Name Relationship Healthcare Agent Communication Relationship Swapnil Whyte Spouse Health Care Agent
--- OUTSIDE RECORDS SUMMARY | 2020-04-17 23:43 | XMS REPORT ---
[...] Problem Chronic systolic heart failure I50.22 Active Problem Leukocytosis, unspecified type D72.829 Active Problem [...]
--- OUTSIDE RECORDS SUMMARY | 2020-04-17 23:43 | XMS REPORT | Continuity of Care Document ---
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 Dosing Weight 110.3, kg, PRN Pain Score 4-6, Start date: 10/31/14 16:37:00, Duration: 30 day, Stop date: 11/30/14 16:36:00 Phenergan 2015-0 No 25 mg, Memori a 3-16 Route: PO, l 21:36: Drug form: Sharon 00 TAB, Q6H, Dosing Weight 110.3, kg, PRN as needed for nausea/vom iting, Start date: 10/31/14 16:36:00, Duration: 30 day, Stop date: 11/30/14 16:35:00 rivaroxaban No 20 mg = 1 M emoria 20 MG Oral 3-16 tab, PO, l Tablet 21:32: QPM, # 30 Enrique n [Xarelto] 00 tab, 6 Refill(s) Metronidazo No 500 mg = 1 Memoria le 500 MG 3-16 tab, PO, l Oral Tablet 21:32: Q8H, # 21 H ermann 00 tab, 0 Refill(s) levofloxaci No 500 mg = 1 Memoria n 500 mg 3-16 tab, PO, l oral tablet 21:32: Daily, # 7 Sharon 00 tab, 0 Refill(s) Wellbutrin No Notes: Memor ia 3-16 (Same As: l 02:00: Wellbutrin ) Topamax No Notes: Memoria 3-16 (Same As: l 02:00: Topamax) "Do Not Crush" sennosides, No Notes: Mike sujey [facility]URSING HOME 3-16 (Same as: l 02:00: Senokot) metoprolol No Notes: Memor ia tartrate 3-15 (Same as: l 16:00: Lopressor) 12.5mg=1/ 4 X 50 mg tab. Ondansetron No Notes: Mike sujey 3-15 (Same as: l 15:33: Zofran) Dexamethaso No Notes: Mike suejy ne 3-15 Concentrat l 15:33: ion: 4mg/ml Naloxone No Notes: Memoria 3-15 Same as l 15:33: Narcan Flumazenil No Notes: Memor ia 3-15 (Same as: l 15:33: Romazicon) Hydromorpho No Notes: Mike sujey ne 3-15 Same as: l 15:33: Dilaudid Metoprolol No Notes: Memor ia 3-15 (Same as: l 15:33: Lopressor) Push over 2 minutes Labetalol No 10 mg, 2 Mike sujey 3-15 mL, Route: l 15:33: IVP, Drug form: INJ, Q5Min, Dosing Weight 110.3, kg, PRN Elevated BP, Start date: 10/30/14 10:33:00, Duration: 5 doses or times, Stop date: Limited # of times Vancomycin No 2000 mg: Me moria 3-15 infuse l 14:00: over 2.5 Sharon 00 hours Vancomycin FOR IV SET ONLY potassium No Notes: Memori a chloride 3-15 (Same as: l 10:00: Potassium Chloride) magnesium No 2 gm, 50 Mike sujey sulfate 3-15 mL, Route: l 10:00: IVPB, Drug form: INJ, ONCE, Start date: 10/30/14 5:00:00, Stop date: 10/30/14 5:00:00 Lisinopril No Notes: Memor ia 3-14 Shake well l 23:00: before use. Refrigerat e For Oral Use Only. Compound ed Product - formulatio n not commercial ly available* * Hydralazine No Notes: Mike sujey 3-14 (Same as: l 22:19: Apresoline ) Push over 5 minutes Bisacodyl No Notes: Memori a 3-14 (Same As: l 14:37: Dulcolax, Bisco-Lax) magnesium No 2 gm, 50 Mike sujey sulfate 3-14 mL, Route: l 09:00: IVPB, Drug form: INJ, ONCE, Start date: 10/29/14 4:00:00, Stop date: 10/29/14 4:00:00 Calcium No 1,000 mg, Memor ia Chloride 3-13 Route: l 23:32: IVPB, [place] 00 ONCE, Dosing Weight 110.3, kg, Start date: 10/28/14 18:32:00, Stop date: 10/28/14 18:32:00 Vancomycin No 2000 mg: Me moria 3-13 infuse l 23:00: over 2.5 [place] 00 hours Vancomycin FOR IV SET ONLY Vancomycin No 2000 mg: Me moria 3-13 infuse l 22:00: over 2.5 [place] 00 hours Vancomycin FOR IV SET ONLY Ativan No 2 mg, Memoria 3-13 Route: IV, l 18:49: ONCE, Sharon 00 Dosing Weight 110.3, kg, Start date: 10/28/14 13:49:00, Stop date: 10/28/14 13:49:00 sodium No Notes: Memoria phosphate + 3-13 (Same as: l Sodium 10:00: Na [place] Chloride 00 Phosphate, 0.9% IV 250 Na PO4) mL potassium No Notes: Memori a chloride 3-13 (Same as: l 09:30: Potassium [place] Chloride) magnesium No 2 gm, 50 Mike sujey sulfate 3-13 mL, Route: l 09:30: IVPB, Drug form: INJ, ONCE, Start date: 10/28/14 4:30:00, Stop date: 10/28/14 4:30:00 docusate No Notes: Memoria sodium 150 3-13 (Same as: l mg/15 mL 02:00: Colace) Enrique n oral liquid 00 chlorhexidi No Notes: Mike sujey ne 3-12 (Same As: l gluconate 17:00: Peridex) Herm tin 1.2 MG/ML 00 Mouthwash NS 1,000 mL No 1,000 mL, M emoria 3-12 Rate: 100 l 16:29: ml/hr, [place] 00 Infuse over: 10 hr, Route: IV, Dosing Weight 110.3 kg, Total Volume: 1,000, Start date: 10/27/14 11:29:00, Duration: 30 day, Stop date: 11/26/14 11:28:00 pantoprazol No Notes: Mike sujey e 3-12 Same as: l 14:00: Protonix Sharon 00 Protonix No Notes: Memoria 3-12 Tablet l 14:00: should not Sharon 00 be chewed or crushed. (Same as: Protonix) Propofol 10 No Notes: If M emoria MG/ML 3-12 Diprivan - l Injectable 12:02: change Aliza nn Suspension 00 bottle & tubing every 12 hr Per state nursing law propofol can only be given by a nurse if patient is intubated or being intubated (unless the nurse is a DRY [employer]IMER POWDER BLENDER). Same as: Diprivan sodium No Notes: Memoria bicarbonate 12 (sodium l 75 mEq + 07:02: bicarb Sharon Sodium 00 8.4% (1 Chloride mEq/ml) 50 0.45% IV ml VL) 925 mL ketAMINE No Notes: Per Mem oria 500 mg + 10-27 state l Sodium 06:53: nursing [place] Chloride 00 law 0.9% IV 245 ketamine mL can only be given by a nurse if patient is intubated or being intubated (unless the nurse is a DRY PRIMER POWDER BLENDER). Keppra No Notes: Memoria 3-12 Same as: l 02:00: Keppra Sharon 00 Vancomycin No 2000 mg: Me moria 10-27 infuse l 02:00: over 2.5 Sharon 00 hours Vancomycin FOR IV SET ONLY heparin No 500 mL, Memoria additive 10-27 Rate: l 25,000 unit 01:00: 21.16 Aliza nn [14 00 ml/hr, unit/kg/hr] Infuse + Premix over: 23.6 Diluent hr, Route: Dextrose 5% IV, Dosing 500 mL Weight 75.56 kg, Total Volume: 500 mL, Start date: 10/26/14 20:00:00, Duration: 30 day, Stop date: 11/25/14 19:59:00 hydrocortis No Notes: Mike sujey one 100 mg 3-11 (Same as: l injection 23:00: Megan Pierson rmann 00 F) physiologic No Notes: Mike sujey al 3-11 Total l irrigating 22:25: ingredient H ermann solution 00 s in bag Na 140meq/L; K 4meq/L; HCO 35meq/L; Ca 3meq/L; Magnesium 1meq/L; CL 113meq/L; Glucose 100mg/dL; "Break seal Between compartmen ts and mix before hanging" sennosides, No Notes: Mike sujey [facility] HOME 3-11 (Same as: l 22:00: Senokot) [place] 00 Lipitor No Notes: Memoria 311 Same as l 22:00: Lipitor Sharon 00 Xarelto No Notes: Memoria - (Same as: l 22:00: Xarelto) Sharon Administer with food chlorhexidi No Notes: Mike sujey ne 10-26 (Same As: l gluconate 22:00: Peridex) Herm tin 1.2 MG/ML 00 Mouthwash nxstage No 1,000 mL, Memor ia pureflow 10-26 Route: l [id number]-401 21:50: DIALYSIS, Aliza nn 5000ml SOLN 00 Irrigation 1000 mL Site: Vein, femoral, Rt, 3,000 ml/hr, 0.3 hr, Total Volume: 1,000, "For Irrigation Only", Start date: 10/26/14 16:50:00, Duration: 1 day, Stop date: 10/27/14 16:49:00 Ketamine No Notes: Per Mem oria 10-26 state l 21:49: nursing [place] 00 law ketamine can only be given by a nurse if patient is intubated or being intubated (unless the nurse is a DRY PRIMER POWDER BLENDER). lidocaine No Notes: Memori a 1% 10-26 (Same as: l 21:26: Xylocaine) Sharon 00 Ketamine No Notes: Per Mem oria 10-26 state l 21:00: nursing Sharon 00 law ketamine can only be given by a nurse if patient is intubated or being intubated (unless the nurse is a DRY PRIMER POWDER BLENDER). Calcium No 1,000 mg, Memor ia Chloride 11 10 mL, l 20:40: Route: [place] IVPB, ONCE, Dosing Weight 110.3, kg, Start date: 10/26/14 15:40:00, Stop date: 10/26/14 15:40:00 Iohexol No Special Memoria 10-26 Instructio l 20:24: ns: Dose = Sharon 00 2.2ml/kg, Max dose = 100ml -- "To be infused by Radiology Staff ONLY" Ketamine No Notes: Memoria 3 Total l 19:23: Concentrat [place]rera 00 ion = 1mg/ml Total Volume = 100ml Infusion Rate= Begin Infusion at an initial rate of 0.1mg/kg/h r to a Maximum Rate of 0.25mg/kg/ hr Please place a Med Request 2 hours before the next dose is needed. EPINEPHrine No 250 mL, Mem oria 4 mg + 3-11 Rate: l Sodium 18:54: Titrate, [place] Chloride 00 Dosing 0.9% Weight (titrate) 110.3, kg, 250 mL Route: IV, Total Volume: 254, Start Date: 10/26/14 13:54:00, Duration: 30 day, Stop date: 11/25/14 13:53:00, Replace Every: 24 hr Etomidate No Notes: Memori a 3-11 (Same as: l 18:54: Amidate). [place] Per state nursing law etomidate can only be given by a nurse if patient is intubated or being intubated (unless the nurse is a DRY PRIMER POWDER BLENDER). sodium No Notes: Memoria bicarbonate -11 (sodium l 8.4% 18:53: bicarb [place] 00 8.4% (1 mEq/ml) 50 ml syringe) Succinylcho No Notes: Mike sujey line 3-11 Same as: l 18:53: Anectine [place] Fentanyl No 1,000 Memoria 3-11 microgram, l 18:52: 20 mL, [place] 00 Rate: Titrate as directed, Dosing Weight 110.3, kg, Route: IV, Total Volume: 20 mL, Start Date: 10/26/14 13:52:00, Duration: 30 day, Stop date: 11/25/14 13:51:00, Replace Every: 24 hr Midazolam 1 No Notes: Mike sujey MG/ML -11 (Same as: l Injectable 18:52: Versed) Herm tin Solution 00 Insulin No Notes: Memoria regular 100 3-11 (Same as: l unit + 18:38: Humulin R Enrique n Sodium 00 and Chloride NovoLIN R) 0.9% (Do not (titrate) shake) 99 mL Dextrose No 6.25 gm, Memor ia 50% Syringe 11 12.5 mL, l 18:38: Route: Cabrera 00 IVP, Drug Form: INJ, Dosing Weight 110.3, kg, PRN, PRN Abnormal Lab Result, Start date: 10/26/14 13:38:00, Duration: 30 day, Stop date: 11/25/14 13:37:00 nxstage No Notes: Memoria pureflow 3-11 Total l rfp-401 18:21: ingredient Herm tin 5000ml 00 s in bag 4,600 mL + Na albumin 140meq/L; human 25% K 4meq/L; intravenous HCO solution 35meq/L; 100 gm Ca 3meq/L; Magnesium 1meq/L; CL 113meq/L; Glucose 100mg/dL; "Break seal Between compartmen ts and mix before hanging" Calcium 2014- No 2 gm, 20 Memori a Chloride 3-11 mL, Route: l 18:20: IVPB, PRN, Sharon 00 Dosing Weight 110.3, kg, PRN Abnormal Lab Result, Via central line, Start date: 10/26/14 13:20:00, Duration: 30 day, Stop date: 11/25/14 13:19:00 Magnesium 2014- No 2 gm, 50 Mike sujey Sulfate 3-11 mL, Route: l 18:20: IVPB, Drug Cabrera 00 form: INJ, PRN, Dosing Weight 110.3, kg, PRN Abnormal Lab Result, Via central line, Start date: 10/26/14 13:20:00, Duration: 30 day, Stop date: 11/25/14 13:19:00 sodium No 15 mmol, 5 Memor ia phosphate + 3-11 mL, Route: l Sodium 18:20: IVPB, PRN, Aliza nn Chloride 00 Dosing 0.9% IV 250 Weight mL 110.3, kg, PRN Abnormal Lab Result, Via central line, Start date: 10/26/14 13:20:00, Duration: 30 day, Stop date: 11/25/14 13:19:00 sodium No Notes: Memoria bicarbonate 3-11 (sodium l 75 mEq + 17:06: bicarb Sharon Sodium 00 8.4% (1 Chloride mEq/ml) 50 0.45% IV ml VL) 925 mL vasopressin No Notes: Mike sujey 80 unit + 3-11 (Same As: l Sodium 15:34: Pitressin) Aliza nn Chloride 00 0.9% (titrate) 246 mL Flagyl No Notes: Memoria 3-11 (Same as: l 15:00: Flagyl) Sharon 00 Avoid alcohol. cefepime No Notes: Memoria 3-11 (Same As: l 15:00: Maxipime) Sharon 00 Vancomycin No 2001 mg: Me moria 3-11 infuse l 14:08: over 2.5 Sharon 00 hours Vancomycin FOR IV SET ONLY PlasmaLyte No 2,000 mL, Me moria A PH-7.4 311 Rate: l 2,000 mL 14:06: 2,000 Sharon 00 ml/hr, Infuse over: 1 hr, Route: IV, Dosing Weight 110.3 kg, Total Volume: 2,000, Start date: 10/26/14 9:06:00, Duration: 30 day, Stop date: 11/25/14 9:05:00 Wellbutrin No Notes: Memor ia 3-11 (Same As: l 14:00: Wellbutrin [place] 00 ) Haldol No Notes: Memoria 3-11 (Same as: l 14:00: Haldol) Sharon 00 Topamax No Notes: Memoria 3-11 (Same As: l 14:00: Topamax) [place] 00 "Do Not Crush" Saline No Notes: Memoria Flush 0.9% 3-11 (Same as: l 14:00: BD Sharon 00 Posiflush) docusate No Notes: Memoria sodium 100 3-11 (Same as: l mg oral 14:00: Colace) Sharon capsule 00 pneumococca No Notes: Mike sujey l capsular 3-11 (Same as: l polysacchar 14:00: Pneumovax H ermann jarad type 1 00 23) vaccine / Refrigerat pneumococca e l capsular polysacchar jarad type 10A vaccine / pneumococca l capsular polysacchar jarad type 11A vaccine / pneumococca l capsular polysacchar jarad type 12F vaccine / pneumococca l capsular polysacchar influenza No Notes: Memori a virus 3-11 (Same as: l vaccine, 14:00: Fluzone Enrique n inactivated 00 Quadrivale nt) Levophed No Notes: Not Mem oria Bitartrate 10-26 for direct l 32 mg + 13:42: administra Herm tin Sodium 00 tion - Chloride DILUTE. 0.9% Protect (titrate) from 218 mL light. (Same as:Levophe d). Administer by either central venous catheter or peripheral ly-inserte d central catheter (PICC) line. Albumin No Notes: Lot Mike sujey Human, NURSING HOME 10-26 #: l 250 MG/ML 12:52: He rmann Injectable 00 ___ Solution Mfg: (Same as: Plasbumin- 25) "blood product derivative " Protonix No Notes: Memoria 10-26 (Same as: l 12:19: Protonix) Sharon 00 Albumin No Notes: Memoria Human, NURSING HOME 10-26 LOT#: l 50 MG/ML 10:34: Her york Injectable 00 ___ Solution Mfg: (Same as: Albuminar) "blood product derivative " Versed No Notes: Memoria 10-26 (Same as: l 09:00: Versed) [place] magnesium No 2 gm, 50 Mike sujey sulfate 3-11 mL, Route: l 07:00: IVPB, Drug form: INJ, Q2H, Start date: 10/26/14 2:00:00, Duration: 2 doses or times, Stop date: 10/26/14 4:00:00 Iohexol No Special Memoria 10-26 Instructio l 05:56: ns: Dose = Cabrera 00 2.2ml/kg, Max dose = 100ml -- "To be infused by Radiology Staff ONLY" magnesium No 4 gm, 100 Mem oria sulfate 3-11 mL, Route: l 05:44: IVPB, Drug Sharon 00 form: INJ, ONCE, Start date: 10/26/14 0:44:00, Stop date: 10/26/14 0:44:00 Reglan 2014-0 No Notes: Memoria 3-11 (Same as: l 05:21: Reglan) Sharon 00 Valproic 2014-0 No 1,000 mg, Mike sujey Acid 100 10-26 Route: IV, l MG/ML 05:16: ONCE, Sharon Injectable 00 Dosing Solution Weight 110.3, kg, Priority: NOW, Start date: 10/26/14 0:16:00, Stop date: 10/26/14 0:16:00 Dexamethaso No 10 mg, 1 Me moria ne 11 mL, Route: l 05:15: IVP, Drug Sharon 00 form: INJ, ONCE, Dosing Weight 110.3, kg, Start date: 10/26/14 0:15:00, Stop date: 10/26/14 0:15:00 Reglan 2014-0 No 10 mg, Memoria 10-26 Route: l 05:14: IVP, Drug Sharon form: INJ, Q6H, Dosing Weight 110.3, kg, Priority: NOW, Start date: 10/26/14 0:14:00, Duration: 30 day, Stop date: 11/25/14 0:00:00 NS 1,000 mL 2014-0 No 1,000 mL, M emoria 10-26 Rate: 150 l 05:01: ml/hr, Sharon 00 Infuse over: 6.7 hr, Route: IV, Dosing Weight 110.3 kg, Total Volume: 1,000, Start date: 10/26/14 0:01:00, Duration: 30 day, Stop date: 11/25/14 0:00:00 Sodium 2014-0 No 1,000 mL, Memori a Chloride 10-26 1,000 l 0.154 04:54: ml/hr, Sharon MEQ/ML 00 Infuse Injectable Over: 1 Solution hr, Route: IV, 1,000, Drug form: INJ, ONCE, Priority: STAT, Dosing Weight 110.3 kg, Start date: 10/25/14 23:54:00, Duration: 1 doses or times, Stop date: 10/25/14 23:54:00 Navane 2014- Yes 2 mg, PO, Memori a 3-11 BID, 0 l 03:29: Refill(s) [place] 00 Bupropion Yes 200 mg = 2 Me moria Hydrochlori 3-11 tab, PO, l de 100 MG 03:29: BID, 0 Enrique n Oral Tablet 00 Refill(s) [Wellbutrin ] tramadol Yes 50 mg = 1 Mike sujey hydrochlori 3-11 tab, PO, l de 50 MG 03:29: Q8H, Pain Herm tin Oral Tablet 00 Score 4-6, [Ultram] 0 Refill(s) topiramate No 50 mg = 1 Me moria 50 MG Oral 3-11 tab, PO, l Tablet 03:29: BID, # 60 Enrique n [Topamax] 00 tab, 0 Refill(s) Promethazin Yes 25 mg = 1 M emoria e 3-11 tab, PO, l Hydrochlori 03:29: Q6H, Enrique n de 25 MG 00 Nausea, # Oral Tablet 15 tab, 0 [Phenergan] Refill(s) rivaroxaban No 20 mg = 1 M emoria 20 MG Oral 3-11 tab, PO, l Tablet 03:29: QPM, 0 [place] [Xarelto] 00 Refill(s) Esomeprazol No = 1 tab, Me moria e 40 MG 3-11 PO, Daily, l Enteric 03:29: 0 [place] Coated 00 Refill(s) Capsule [Nexium] 120 ACTUAT No 1 spray, Mem oria Triamcinolo -11 NASAL, l ne 03:29: Daily, # Sharon Acetonide 00 17 gm, 0 0.055 Refill(s) MG/ACTUAT Nasal Inhaler [Nasacort] atorvastati Yes 80 mg = 1 M emoria n 80 MG 3-11 tab, PO, l Oral Tablet 03:29: Daily, 0 He rmann [Lipitor] 00 Refill(s) Haldol Yes 2 mg, PO, Memori a 3-11 BID, 0 l 03:28: Refill(s) Sharon 00 Acetaminoph No Notes: Max Memoria en - acetaminop l 03:01: hen = [place] 00 4000mg/day (4 gm/day). (Same as: Tylenol) Sodium No 1,000 mL, Memori a Chloride 3-11 1,000 l 0.154 02:35: ml/hr, Sharon MEQ/ML 00 Infuse Injectable Over: 1 Solution hr, Route: IV, 1,000, Drug form: INJ, ONCE, Priority: STAT, Dosing Weight 96.364 kg, Start date: 10/25/14 21:35:00, Duration: 1 doses or times, Stop date: 10/25/14 21:35:00 Saline No Notes: Memoria Flush 0.9% 3-11 (Same as: l 02:33: BD Sharon 00 Posiflush) Ondansetron No Notes: Mike sujey 3-11 (Same as: l 02:33: Zofran) Sharon 00 NS 1,000 mL No 1,000 mL, M emoria 3-11 Rate: 100 l 02:30: ml/hr, [place] 00 Infuse over: 10 hr, Route: IV, Dosing Weight 96.364 kg, Total Volume: 1,000, Start date: 10/25/14 21:30:00, Duration: 30 day, Stop date: 11/24/14 21:29:00 norepinephr No Notes: Not Memoria ine 16 mg + 3-11 for direct l Sodium 02:29: administra Aliza nn Chloride 00 tion - 0.9% DILUTE. (titrate) Protect 234 mL from light. (Same as:Levophe d). Administer by either central venous catheter or peripheral ly-inserte d central catheter (PICC) line. Regular No 60 Memoria Insulin, 3-11 units) l Human 100 02:28: Stable for He rmann UNT/ML 00 28 days at Injectable room Solution temperatur e Expires in days from ____Date Dextrose No 25 gm, 50 Mike sujey 50% Syringe 3-11 mL, Route: l 02:28: IVP, Drug [place] 00 Form: INJ, Dosing Weight 96.364, kg, PRN, PRN Abnormal Lab Result, Start date: 10/25/14 21:28:00, Duration: 30 day, Stop date: 11/24/14 21:27:00 Coumadin 2013- No 2 mg, 1 Memori a 3-30 tab, l 22:00: Route: PO, Sharon 00 Drug form: TAB, Q5PM, Start date: 11/14/13 17:00:00, Duration: 1 doses or times, Stop date: 11/14/13 17:00:00Nu rse to ensure documentat ion of patient education per anticoagul ation policy. Avoid large intake of vitamin-K containing foods diet. (Same As: Coumadin) Warfarin 2013- No 5 mg, 1 Memori a 3-30 tab, l 22:00: Route: PO, [place] 00 Drug form: TAB, Q5PM, Dosing Weight 96.364, kg, Start date: 11/14/13 17:00:00, Duration: 1 doses or times, Stop date: 11/14/13 17:00:00Nu rse to ensure documentat ion of patient education per anticoagul ation policy. Avoid large intake of vitamin-K containing foods diet. (Same As: Coumadin) Levetiracet Yes 500 mg = 1 Memoria am 500 MG 3-30 tab, PO, l Oral Tablet 19:41: Q12H, # 60 [place] [Keppra] 00 tab, 0 Refill(s) Levetiracet 0 No 500 mg, 1 M emoria am 500 MG 3-30 tab, l Oral Tablet 18:00: Route: PO, Sharon [Keppra] 00 Drug form: TAB, Q12H, Dosing Weight 96.364, kg, Start date: 11/14/13 13:00:00, Duration: 30 day, Stop date: 12/14/13 9:00:00( me as:Keppra) pneumococca No 0.5 ml, Mem oria l capsular 3-30 Route: IM, l polysacchar 14:00: Drug Form: [place] jarad type 1 00 INJ, vaccine / Daily, pneumococca Start l capsular date: polysacchar 11/14/13 jarad type 9:00:00, 10A vaccine Duration: / 1 doses or pneumococca times, l capsular Stop date: polysacchar 11/14/13 jarad type 9:00:00(Sa 11A vaccine me as: / Pneumovax pneumococca 23) l capsular Refrigerat polysacchar e jarad type 12F vaccine / pneumococca l capsular polysacchar Benadryl No 25 mg, 1 Memor ia 3-30 cap, l 03:09: Route: PO, [place] 00 Drug form: CAP, Bedtime, Dosing Weight 96.364, kg, PRN Insomnia, Start date: 11/13/13 22:09:00, Duration: 1 day, Stop date: 11/14/13 22:08:00(S pinky as: Benadryl) atorvastati No 80 mg, 2 Me moria n 3-30 tab, l 02:00: Route: PO, Sharon 00 Drug form: TAB, Bedtime, Dosing Weight 96.364, kg, Start date: 11/13/13 21:00:00, Duration: 30 day, Stop date: 12/12/13 21:00:00(S pinky as: Lipitor) Coumadin No 5 mg, 1 Memori a 3-29 tab, l 22:00: Route: PO, Drug form: TAB, Q5PM, Dosing Weight 96.364, kg, Start date: 11/13/13 17:00:00, Duration: 1 doses or times, Stop date: 11/13/13 17:00:00Nu rse to ensure documentat ion of patient education per [facility] policy. Avoid large intake of vitamin-K containing foods diet. (Same As: Coumadin) Ativan No 0.5 mg, 1 Memori a 3-29 tab, l 21:00: Route: PO, Sharon 00 Drug form: TAB, ONCE, Dosing Weight 96.364, kg, Start date: 11/13/13 16:00:00, Stop date: 11/13/13 16:00:00(S pinky as: Ativan) Ativan 0 No 0.5 mg, 1 Memori a 3-29 tab, l 20:08: Route: PO, Sharon 00 Drug form: TAB, ONCE, Dosing Weight 96.364, kg, Start date: 11/13/13 15:08:00, Stop date: 11/13/13 15:08:00(S pinky as: Ativan) atorvastati No 80 mg = 1 M emoria n 80 MG 3-29 tab, PO, l Oral Tablet 17:12: Bedtime Her york [Lipitor] 00 Thiothixene Yes 5 mg = 1 Me moria 5 MG Oral 3-29 cap, PO, l Capsule 17:12: BID, # 60 Aliza nn [Navane] 00 cap haloperidol Yes 5 mg = 1 Me moria 5 mg oral 3-29 tab, PO, l tablet 17:12: BID, # 60 Enrique n 00 tab Sertraline Yes 100 mg = 1 M emoria 100 MG Oral 3-29 tab, PO, l Tablet 17:12: BID, # 60 Enrique n [Zoloft] 00 tab 12 HR Yes 200 mg = 1 Memori a Bupropion 3-29 tab, PO, l Hydrochlori 17:12: BID, # 60 H ermann de 200 MG 00 tab Extended Release Tablet [Wellbutrin ] lisinopril Yes 40 mg = 1 Me moria 40 mg oral 3-29 tab, PO, l tablet 17:03: Daily [place] 00 verapamil Yes 300 mg = 1 Me moria 300 mg/24 3-29 cap, PO, l hours oral 17:03: Daily Enrique n capsule, 00 extended release Saline No 5 ml, Memoria Flush 0.9% 11-13 Route: l 14:00: IVP, Drug Sharon Form: INJ, Dosing Weight 96.364, kg, Q12H, Start date: 11/13/13 9:00:00, Duration: 30 day, Stop date: 12/12/13 21:00:00(S pinky as: BD Posiflush) Aspirin 325 No 325 mg, 1 M emoria MG Enteric 3-29 tab, l Coated 14:00: Route: PO, Aliza nn Tablet 00 Drug form: ECTAB, Daily, Dosing Weight 96.364, kg, Start date: 11/13/13 9:00:00, Duration: 30 day, Stop date: 12/12/13 9:00:00(Do Not Crush) Do not crush or chew. Versed No 1 mg, 1 Memoria 3-29 mL, Route: l 12:06: IV, Drug form: INJ, PRN, Dosing Weight 96.364, kg, PRN Other -See Comment, Start date: 11/13/13 7:06:00, Duration: 30 day, Stop date: 12/13/13 7:05:00([facility] as: Versed) Iohexol 2013- No 85 mL, Memoria 11-13 Route: l 11:04: IVP, Drug Form: SOLN, Dosing Weight 96.364, kg, ONCALL, STAT, Start date: 11/13/13 6:04:00, Duration: 1 doses or times, Stop date: 11/14/13 0:00:00, Dose = 2.2ml/kg, Max dose = 100ml -- "To be infused by Radiology Staff ONLY"(Same as:Omnipaq ue 350). Enoxaparin No 40 mg, 0.4 M emoria 3-29 mL, Route: l 11:00: SUB-Q, Drug form: INJ, [id number], Dosing Weight 96.364, kg, Start date: 11/13/13 6:00:00, Duration: 30 day, Stop date: 12/12/13 6:00:00(Sa me as: Lovenox) Saline 2013- No 5 ml, Memoria Flush 0.9% 11-13 Route: l 10:15: IVP, Drug Form: INJ, Dosing Weight 96.364, kg, PRN, PRN Line Flush, Start date: 11/13/13 5:15:00, Duration: 30 day, Stop date: 12/13/13 5:14:00(Sa me as: BD Posiflush) Acetaminoph No 650 mg, 2 M emoria en 11-13 tab, l 10:15: Route: PO, Drug form: TAB, Q4H, Dosing Weight 96.364, kg, PRN Pain 1-3/Temp > 99.5 F, Start date: 11/13/13 5:15:00, Duration: 30 day, Stop date: 12/13/13 5:14:00Do not exceed 4 gm/day. (Same as: Tylenol) Sodium No 1,000 mL, Memori a Chloride 11-13 Rate: 100 l 0.154 10:15: ml/hr, Sharon MEQ/ML 00 Infuse Injectable over: 10 Solution hr, Route: IV, Dosing Weight 96.364 kg, Total Volume: 1,000, Start date: 11/13/13 5:15:00, Duration: 30 day, Stop date: 12/13/13 5:14:00 Coumadin Yes 7 mg, PO, Mike sujey 11-13 Daily, 0 l 09:06: Refill(s) Saline No 5 mL, Memoria Flush 0.9% 11-13 Route: l 08:58: IVP, Drug Form: INJ, Dosing Weight 96.364, kg, PRN, PRN Line Flush, Start date: 11/13/13 3:58:00, Duration: 30 day, Stop date: 12/13/13 3:57:00pre servative free. Navane 2 mg Yes Anna Marie 2 mg, PO, Memoria oral 9-25 Janey BID, 60 l capsule 18:40: Brown tab, Sharon 33 Substituti on Allowed, CAP Zoloft 100 Yes Anna Marie 100 mg, 1 Memoria mg oral 9-25 Janey tab, PO, l tablet 18:40: Brown BID, 60 Cabrera 28 tab, Substituti on Allowed, TAB haloperidol Yes Anna Marie 2 mg, 1 Memoria 2 mg oral 9-25 Janey tab, PO, l tablet 18:40: Brown BID, 60 Cabrera 12 tab, Substituti on Allowed Wellbutrin Yes Anna Marie 100 mg, 1 Memoria 100 mg oral 9-25 Janey tab, PO, l tablet 18:39: Brown BID, 60 Cabrera 54 tab, Substituti on Allowed, TAB Levaquin Yes Anna Marie 750 mg, 1 M emoria 750 mg oral 9-25 Janey tab, PO, l tablet 12:12: Brown Q24H, 7 Sharon 09 tab, Substituti on Allowed, TAB Flagyl ER No Anna Marie 750 mg, 1 Memoria 750 mg oral 9-25 Janey tab, PO, l tablet, 11:29: Brown Daily, 7 Aliza nn extended 24 tab, release Substituti on Allowed, ERTAB metoprolol No Hannah 50 mg, 1 Me moria tartrate 9-25 Dom tab, l 02:00: Tom Route: PO, Enrique n 00 Drug form: TAB, Q12H, Dosing Weight 98.182, kg, Start date: 05/11/13 21:00:00, Duration: 30 day, Stop date: 06/10/13 9:00:00 Multiple Yes Anna Marie 1 cap, PO, Memoria Vitamins 9-24 Janey Daily, 30 l oral 22:16: Brown cap, Sharon capsule 28 Substituti on Allowed, Maintenanc e, CAP atorvastati Yes Anna Marie 80 mg, 1 Memoria n 80 mg 9-24 Janey tab, PO, l oral tablet 22:14: Brown Bedtime, H ermann 33 30 tab, Substituti on Allowed, TAB aspirin 81 Yes Anna Marie 81 mg, 1 Memoria mg tablet, 9-24 Janey tab, PO, l enteric 22:14: Brown Daily, 30 Herm tin coated 18 tab, Substituti on Allowed, ECTAB metoprolol No Hannah 25 mg, 1 Me moria tartrate 9-24 Dom tab, l 13:38: Tom Route: PO, Enrique n 00 Drug form: TAB, ONCE, Dosing Weight 98.182, kg, Priority: STAT, Start date: 05/11/13 8:38:00, Stop date: 05/11/13 8:38:00 Flagyl No Lyndon 500 mg, Memor ia 05-10 Amado 100 mL, l 23:00: Bubis Route: Cabrera 00 IVPB, Drug form: INJ, ABXQ8H, Dosing Weight 98.182, kg, Start date: 05/10/13 18:00:00, Duration: 30 day, Stop date: 06/09/13 10:00:00 azithromyci No Lyndon 500 mg, Memoria n + Sodium 05-10 Amado Route: l Chloride 23:00: Bubis IVPB, Sharon 0.9% IV 250 00 [id number], mL Dosing Weight 98.182, kg, Start date: 05/10/13 18:00:00, Duration: 30 day, Stop date: 06/08/13 18:00:00 Neutra-Phos 2012- No Anna Marie 1 pkt, M emoria 05-10 Janey Route: PO, l 22:45: Brown Drug Form: Enrique n 00 PDR/REC, Dosing Weight 98.182, kg, ONCE, Start date: 05/10/13 17:45:00, Stop date: 05/10/13 17:45:00 magnesium 2012- No Anna Marie 1 gm, Mike sujey sulfate 05-10 Janey Route: l 22:45: Brown IVPB, Drug Enrique n form: INJ, ONCE, Dosing Weight 98.182, kg, Start date: 05/10/13 17:45:00, Stop date: 05/10/13 17:45:00 heparin No Anna Marie 5,000 Memori a 05-10 Janey unit, 1 l 21:00: Brown mL, Route: Enrique n 00 SUB-Q, Drug form: INJ, Q8H, Dosing Weight 98.182, kg, Start date: 05/10/13 16:00:00, Duration: 30 day, Stop date: 06/09/13 8:00:00 aspirin No Anna Marie 81 mg, 1 Mem oria 05-10 Janey tab, l 18:00: Brown Route: PO, Enrique n 00 Drug form: ECTAB, Daily, Dosing Weight 98.182, kg, Start date: 05/10/13 13:00:00, Duration: 30 day, Stop date: 06/09/13 9:00:00 azithromyci No Lyndon 250 mg, 1 Memoria n 250 mg 05-10 Amado tab, l oral tablet 13:00: Bubis Route: PO, Cabrera 00 Drug form: TAB, [id number], Dosing Weight 98.182, kg, Start date: 05/10/13 8:00:00, Duration: 4 doses or times, Stop date: 05/13/13 8:00:00 Versed No Hannah 1 mg, 1 Memoria 05-10 Dom mL, Route: l 12:41: Tom IV, Drug form: INJ, ONCE, Dosing Weight 98.182, kg, Start date: 05/10/13 7:41:00, Stop date: 05/10/13 7:41:00 magnesium 2012- No Hannah 2 gm, 50 Mem oria sulfate 05-10 Dom mL, Route: l 11:00: Tom TAYLOR, Drug Enrique n 00 form: INJ, Q2H, Dosing Weight 98.182, kg, Total Dose = 4 gm, Start date: 05/10/13 6:00:00, Duration: 2 doses or times, Stop date: 05/10/13 8:00:00, For Mg = 1.5 - 1.7 mg/dLFor Mg = 1.5 - 1.7 mg/dL Lipitor No Yoli Rakel 80 mg, 1 Memoria 05-10 [place] tab, l 02:00: lyndsey Route: PO, Sharon 00 Drug form: TAB, Bedtime, Dosing Weight 113.636, kg, Start date: 05/09/13 21:00:00, Duration: 30 day, Stop date: 06/07/13 21:00:00 Mag-Ox 400 No Kamal 400 mg, 1 M emoria 05-10 Zi tab, l 00:00: Angeline Route: PO, Sharon 00 Drug form: TAB, On Adm, Start date: 05/09/13 19:00:00, Duration: 1 doses or times, Stop date: 05/09/13 21:00:00 magnesium 2012- No Kamal 500 mg, Mike sujey oxide base 05-09 Zi Route: PO, l 500 mg oral 23:08: Angeline Drug form: Cabrera tablet 00 TAB, ONCE, Dosing Weight 98.182, kg, Start date: 05/09/13 18:08:00, Stop date: 05/09/13 18:08:00 thiamine 2012-0 No Brittany 100 mg, 1 M emoria 05-09 Carmen tab, l 14:00: Gill Route: PO, Herm tin 00 Drug form: TAB, Daily, Dosing Weight 98.182, kg, Start date: 05/09/13 9:00:00, Duration: 30 day, Stop date: 06/07/13 9:00:00 folic acid No Brittany 1 mg, 1 M emoria 05-09 Carmen tab, l 14:00: Zwiener Route: PO, Herm tin 00 Drug form: TAB, Daily, Dosing Weight 98.182, kg, Start date: 05/09/13 9:00:00, Duration: 30 day, Stop date: 06/07/13 9:00:00 multivitami 2012-0 No Brittany 1 tab, M seanria n 05-09 Carmen Route: PO, l 13:10: Zwedwarder Drug Form: Herm tin 00 TAB, Dosing Weight 98.182, kg, Daily, Start date: 05/09/13 8:10:00, Duration: 30 day, Stop date: 06/07/13 9:00:00 heparin 2012-0 No Hannah 5,000 Memoria 05-09 Dom unit, 1 l 13:00: Tom mL, Route: Enrique n 00 SUB-Q, Drug form: INJ, Q8H, Dosing Weight 98.182, kg, Start date: 05/09/13 8:00:00, Duration: 30 day, Stop date: 06/08/13 0:00:00 Plavix 2012-0 No Hannah 75 mg, 1 Memori a 05-09 Dom tab, l 13:00: Tom Route: PO, Enrique n 00 Drug form: TAB, Daily, Dosing Weight 98.182, kg, Start date: 05/09/13 8:00:00, Duration: 30 day, Stop date: 06/07/13 9:00:00 Rocephin 2012-0 No Hannah 1 gm, Memoria 05-09 Dom Route: l 13:00: Tom IVPB, Drug Enrique n 00 form: PDR/INJ, [id number], Dosing Weight 98.182, kg, Start date: 05/09/13 8:00:00, Duration: 4 doses or times, Stop date: 05/13/13 8:00:00 insulin 2012-0 No Hannah 3 unit, Memori a regular 100 05-09 Dom 0.03 mL, l units/mL 12:40: Tom Route: Enrique n human 00 SUB-Q, recombinant Drug form: SOLN, PRN, Dosing Weight 98.182, kg, PRN Abnormal Lab Result, Start date: 05/09/13 7:40:00, Duration: 30 day, Stop date: 06/08/13 7:39:00 Dextrose No Hannah 6.25 gm, Mike sujey 50% Syringe 05-09 Dom 12.5 mL, l 12:40: Tom Route: Cabrera 00 IVP, Drug Form: INJ, Dosing Weight 98.182, kg, PRN, PRN Abnormal Lab Result, Start date: 05/09/13 7:40:00, Duration: 30 day, Stop date: 06/08/13 7:39:00 NS (Bolus) No Brittany 1,000 mL, Memoria IV 1,000 mL 05-09 Carmen Rate: l 12:37: Zwiener 1,000 Sharon 00 ml/hr, Infuse over: 1 hr, Route: IV, Dosing Weight 98.182 kg, Total Volume: 1,000, Priority: STAT, Start date: 05/09/13 7:37:00, Duration: 1 doses or times, Stop date: 05/09/13 8:36:00, Bolus DoseBolus Dose azithromyci No Brittany 500 mg, 2 Memoria n 05-09 Carmen tab, l 12:35: Zwiener Route: PO, Herm Drug form: TAB, ONCE, Dosing Weight 98.182, kg, Start date: 05/09/13 7:35:00, Stop date: 05/09/13 7:35:00 Omnipaque No Hannah 85 mL, Memor ia 350mg/ml 05-09 Dom Route: l 11:49: Tom IVP, Drug Sharon 00 Form: SOLN, Dosing Weight 98.182, kg, ONCALL, STAT, Start date: 05/09/13 6:49:00, Duration: 1 doses or times, Dose = 2.2ml/kg, Max dose = 100ml -- "To be infused by Radiology Staff ONLY"Dose = 2.2ml/kg, Max dose = 100ml -- "To be infused by Radiology Staff ONLY" NS 1000 mL No Lyndon 1,000 mL, Memoria 05-09 Amado Rate: 150 l 03:31: Bubis ml/hr, Sharon 00 Infuse over: 6.7 hr, Route: IV, Dosing Weight 113.636 kg, Total Volume: 1,000, Start date: 05/08/13 22:31:00, Duration: 30 day, Stop date: 06/07/13 22:30:00 levalbutero 2012-0 No Linsey 0.63 mg, 3 Memoria l 05-09 Vanessa mL, Route: l 02:59: Read NEB, Drug Aliza nn 00 Brice form: SOLN, PRN, Dosing Weight 113.636, kg, PRN Respirator y Protocol, Start date: 05/08/13 21:59:00, Duration: 30 day, Stop date: 06/07/13 21:58:00 Tylenol No Linsey 325 mg, 1 M emoria 05-09 Vanessa tab, l 02:58: Read Route: PO, Herm tin Brice Drug form: TAB, Q4H, Dosing Weight 113.636, kg, PRN Pain, Start date: 05/08/13 21:58:00, Duration: 30 day, Stop date: 06/07/13 21:57:00 Saline No Linsey 5 ml, Memori a Flush 0.9% 05-09 Vanessa Route: l 02:00: Read IVP, Drug Aliza nn Brice Form: INJ, Dosing Weight 113.636, kg, Q12H, Start date: 05/08/13 21:00:00, Duration: 30 day, Stop date: 06/07/13 9:00:00 docusate 2012-0 No Linsey 100 mg, 1 Memoria 05-09 Vanessa cap, l 02:00: Read Route: PO, Herm tin Brice Drug form: CAP, Q12H, Dosing Weight 113.636, kg, Start date: 05/08/13 21:00:00, Duration: 30 day, Stop date: 06/07/13 9:00:00 Saline 2012-0 No Linsey 5 ml, Memori a Flush 0.9% 05-08 Vanessa Route: l 22:58: Read IVP, Drug Aliza nn 00 Brice Form: INJ, Dosing Weight 113.636, kg, PRN, PRN Line Flush, Start date: 05/08/13 17:58:00, Duration: 30 day, Stop date: 06/07/13 17:57:00 caffeine 2012-1 Yes Anita Marcelino 100 mg, 1 Memoria 100 mg oral 2-04 Escalante tab, PO, l tablet 19:05: Q6H, 24 Cabrera 27 tab, Substituti on Allowed, TAB aspirin 325 2011-08 Yes Anita Marcelino 325 mg, 1 Memoria mg tablet 2-04 Escalante tab, PO, l 19:05: Daily, 30 Sharon 08 tab, Substituti on Allowed, TAB verapamil 2011-08 No Anita Marcelino 40 mg, 1 Memoria 40 mg oral 2-04 Escalante tab, PO, l tablet 19:03: TID, 90 Sharon 44 tab, Substituti on Allowed, TAB caffeine 2011-08 No Anita Marcelino 100 mg, 1 Memoria 100 mg oral 2-04 Escalante tab, PO, l tablet 19:03: Q3H, 12 Cabrera 29 tab, Substituti on Allowed, TAB caffeine 2011-08 No Naomi Viki 250 mg, Memoria 2-04 Quang Route: l 18:15: IVPB, Sharon 00 ONCE, Dosing Weight 113.636, kg, Start date: 07/21/12 12:15:00, Stop date: 07/21/12 12:15:00 influenza 2011-08 No SYSTEM 0.5 ml, Mem oria virus 2-04 SYSTEM Route: IM, l vaccine, 18:08: Drug Form: Her york inactivated 00 INJ, Start date: 07/21/12 12:08:00, Stop date: 07/21/12 12:08:00 verapamil 2011-08 Yes Naomi Viki 80 mg, 1 Memoria 80 mg oral 2-04 Quang tab, PO, l tablet 17:59: TID, 90 Cabrera 46 tab, 3, 3, Substituti on Allowed, TAB Haldol 2011-08 No Baudilio 2 mg, 2 Memor ia 2-04 Castellanos tab, l 15:00: Chahil Route: PO, Aliza nn 00 Drug form: TAB, Daily, Dosing Weight 113.636, kg, Start date: 07/21/12 9:00:00, Duration: 30 day, Stop date: 08/19/12 9:00:00 aspirin 2011-08 No Anita Marcelino 325 mg, 1 M emoria 2-04 Escalante tab, l 15:00: Route: PO, Cabrera 00 Drug form: TAB, Daily, Dosing Weight 113.636, kg, Start date: 07/21/12 9:00:00, Duration: 30 day, Stop date: 08/19/12 9:00:00 Zofran 2 2011-08 Yes Naomi Viki 4 mg, 2 Memoria mg/mL 2-04 Qunag mL, IV, l injectable 14:30: Q6H, PRN, He rmann solution 16 15 mL, 1, 1, Nausea, Substituti on Allowed, INJ Cipro 250 2011-08 Yes Anita Marcelino 250 mg, 1 Memoria mg oral 2-04 Escalante tab, PO, l tablet 14:30: Q12H, 6 Cabrera 09 tab, Substituti on Allowed, TAB Lipitor 40 2011-08 Yes Naomi Viki 40 mg, 1 Memoria mg oral 2-04 Quang tab, PO, l tablet 14:30: QPM, 30 Sharon 06 tab, 3, 3, Substituti on Allowed, TAB Cipro 2011-08 No Anita Marcelino 250 mg, 1 Mem oria 2-04 Escalante tab, l 05:00: Route: PO, Sharon 00 Drug form: TAB, Q12H, Dosing Weight 113.636, kg, Start date: 07/20/12 23:00:00, Duration: 30 day, Stop date: 08/19/12 11:00:00 clonidine 2011-08 No Reynaldo 0.1 mg, 1 Me moria 2-04 Govind tab, l 03:00: Koranne Route: PO, Herm tin 00 Drug form: TAB, Q8H-05, Dosing Weight 113.636, kg, Start date: 07/20/12 21:00:00, Duration: 30 day, Stop date: 08/19/12 13:00:00 Lipitor 2011-08 No Baudilio 40 mg, 1 Mem oria 2-03 Castellanos tab, l 23:00: Chahil Route: PO, Aliza nn 00 Drug form: TAB, QPM, Dosing Weight 113.636, kg, Start date: 07/20/12 17:00:00, Duration: 30 day, Stop date: 08/18/12 17:00:00 NS (Bolus) 2012-1 No Reynaldo 500 mL, Mem oria IV 500 mL 2-03 Govind Rate: 500 l 22:31: Koranne ml/hr, Sharon 00 Infuse over: 1 hr, Route: IV, kg, Total Volume: 500, Priority: STAT, Start date: 07/20/12 16:31:00, Duration: 1 doses or times, Stop date: 07/20/12 17:30:00, Bolus DoseBolus Dose caffeine 2011-08 No Reynaldo 300 mg, Memor ia 2-03 Govind 1.5 tab, l 21:30: Koranne Route: PO, Herm tin 00 Drug form: TAB, ONCE, Start date: 07/20/12 15:30:00, Stop date: 07/20/12 15:30:00 aspirin 2011-08 No Reynaldo 81 mg, 1 Memor ia 2-03 Govind tab, l 21:00: Koranne Route: PO, Herm tin 00 Drug form: ECTAB, Daily, Dosing Weight 113.636, kg, Start date: 07/20/12 15:00:00, Duration: 30 day, Stop date: 08/19/12 9:00:00 Zofran 2011-08 No Reynaldo 4 mg, 2 Memoria 2-03 Govind mL, Route: l 19:23: Koranne IV, Drug Enrique n 00 form: INJ, Q6H, Dosing Weight 113.636, kg, PRN Nausea, Start date: 07/20/12 13:23:00, Duration: 30 day, Stop date: 08/19/12 13:22:00 caffeine-so 2011-08 No Reynaldo 250 mg, 1 Memoria dium 2-03 Govind mL, Route: l benzoate + 19:20: Koranne IVPB, Drug Cabrera Sodium 00 form: INJ, Chloride ONCE, 0.9% IV Dosing 1,000 mL Weight 113.636, kg, Start date: 07/20/12 13:20:00, Stop date: 07/20/12 13:20:00 Navane 2011-08 No Baudilio 20 mg, 4 Mike sujey 2-03 Castellanos cap, l 15:00: Chahil Route: PO, Aliza nn 00 Drug form: CAP, Daily, Dosing Weight 113.636, kg, Start date: 07/20/12 9:00:00, Duration: 30 day, Stop date: 08/18/12 9:00:00 clonidine 2011-08 No Reynaldo 0.1 mg, Mike sujey 2-03 Govind Route: PO, l 15:00: Koranne Drug form: Herm tin 00 TAB, TID, Dosing Weight 113.636, kg, Start date: 07/20/12 9:00:00, Duration: 30 day, Stop date: 08/18/12 17:00:00 Haldol 2011-08 No Baudilio 2 mg, 1 Memor ia 2-03 Castellanos tab, l 15:00: Chahil Route: PO, Aliza nn 00 Drug form: TAB, Daily, Dosing Weight 113.636, kg, Start date: 07/20/12 9:00:00, Duration: 30 day, Stop date: 08/18/12 9:00:00 Zoloft 2011-08 No Baudilio 100 mg, 1 Mem oria 2-03 Castellanos tab, l 15:00: Chahil Route: PO, Aliza nn 00 Drug form: TAB, Daily, Dosing Weight 113.636, kg, Start date: 07/20/12 9:00:00, Duration: 30 day, Stop date: 08/18/12 9:00:00 Wellbutrin 2011-08 No Baudilio 300 mg, 2 Memoria 2-03 Castellanos tab, l 15:00: Chahil Route: PO, Aliza nn 00 Drug form: ERTAB, Daily, Dosing Weight 113.636, kg, Start date: 07/20/12 9:00:00, Duration: 30 day, Stop date: 08/18/12 9:00:00 influenza 2011-08 No SYSTEM 0.5 ml, Mem oria virus 2-03 SYSTEM Route: IM, l vaccine, 15:00: Drug Form: Her york inactivated 00 INJ, Start date: 07/20/12 9:00:00, Stop date: 07/20/12 9:00:00 Saline 2011-08 No Baudilio 5 ml, Memoria Flush 0.9% 2-03 Castellanos Route: l 03:00: Chahil IVP, Drug Enrique n 00 Form: INJ, Dosing Weight 113.636, kg, Q12H, Start date: 07/19/12 21:00:00, Duration: 30 day, Stop date: 08/18/12 9:00:00 famotidine 2011-08 No Baudilio 20 mg, 1 Memoria 2-03 Castellanos tab, l 03:00: Chahil Route: PO, Aliza nn Drug form: TAB, Q12H, Dosing Weight 113.636, kg, Start date: 07/19/12 21:00:00, Duration: 30 day, Stop date: 08/18/12 9:00:00 Visipaque 2011-08 No Prashanth 100 mL, Mem oria 320mg/ml 09-19 Pelon Route: l 20:56: Dent IVP, Drug Enrique n Form: SOLN, Dosing Weight 113.636, kg, ONCALL, STAT, Start date: 07/19/12 14:56:00, Duration: 1 doses or times, Dose = 2.2ml/kg, Max dose = 150mlDose = 2.2ml/kg, Max dose = 150ml enoxaparin 2011-08 No Baudilio 40 mg, 0.4 Memoria 2-02 Emanuel mL, Route: l 17:00: Chahil SUB-Q, Cabrera 00 Drug form: INJ, Q24H, Dosing Weight 113.636, kg, Start date: 07/19/12 11:00:00, Duration: 30 day, Stop date: 08/17/12 11:00:00 hydromorpho 2011-08 No David Agustin 1 mg, 0.5 Memoria ne -02 Spicer mL, Route: l 16:49: IVP, Drug Cabrera form: INJ, ONCE, Dosing Weight 113.636, kg, Priority: STAT, Start date: 07/19/12 10:49:00, Stop date: 07/19/12 10:49:00 Plavix 2011-08 No Anita Marcelino 75 mg, 1 Mem oria 2-02 Escalante tab, l 16:17: Route: PO, Sharon 00 Drug form: TAB, Daily, Dosing Weight 113.636, kg, Priority: STAT, Start date: 07/19/12 10:17:00, Duration: 30 day, Stop date: 08/18/12 9:00:00 Saline 2011-08 No Baudilio 5 ml, Memoria Flush 0.9% 09-19 Castellanos Route: l 16:05: Chahil IVP, Drug Enrique n 00 Form: INJ, Dosing Weight 113.636, kg, PRN, PRN Line Flush, Start date: 07/19/12 10:05:00, Duration: 30 day, Stop date: 08/18/12 10:04:00 acetaminoph 2011-08 No Baudilio 650 mg, 2 Memoria en 02 Castellanos tab, l 16:05: Chahil Route: PO, Aliza nn 00 Drug form: TAB, Q4H, Dosing Weight 113.636, kg, PRN Pain/Fever , Start date: 07/19/12 10:05:00, Duration: 30 day, Stop date: 08/18/12 10:04:00 Sodium 2011-08 No Baudilio 1,000 mL, Mem oria Chloride 09-19 Castellanos Rate: 75 l 0.9% IV 16:05: Chahil ml/hr, Enrique n 1,000 mL 00 Infuse over: 13.3 hr, Route: IV, kg, Total Volume: 1,000, Start date: 07/19/12 10:05:00, Duration: 30 day, Stop date: 08/18/12 10:04:00 Navane 2011-08 Yes 20 mg, PO, Memor ia 2-02 Daily, l 13:02: Substituti Sharon 47 on Allowed Haldol 2011-08 Yes Baudilio 2 mg, PO, Mem oria 2-02 Castellanos Daily, l 13:02: Chahil Substituti Aliza nn 42 on Allowed Wellbutrin 2011-08 Yes Baudilio 300 mg, M emoria 2-02 Castelalnos PO, Daily, l 13:02: Chahil Substituti Aliza nn 38 on Allowed Zoloft 2011-08 Yes Baudilio 100 mg, Memor ia 2-02 Castellanos PO, Daily, l 13:02: Chahil Substituti Laiza nn 34 on Allowed clonidine 2011-08 Yes Baudilio 0.3 mg, Me moria 2-02 Castellanos PO, TID, l 13:01: Chahil Substituti Aliza nn 59 on Allowed promethazin 2011-08 No David Agustin 25 mg, 1 Memoria e 2- Spicer mL, Route: l 12:57: IVPB, Drug form: INJ, ONCE, Dosing Weight 113.636, kg, Priority: STAT, Start date: 07/19/12 6:57:00, Stop date: 07/19/12 6:57:00 hydromorpho 2012- No David Velez 1 mg, 0.5 Memoria ne 2- Spicer mL, Route: l 12:56: IVP, Drug form: INJ, ONCE, Dosing Weight 113.636, kg, Priority: STAT, Start date: 07/19/12 6:56:00, Stop date: 07/19/12 6:56:00 Wellbutrin Wellbutrin Yes James [address] [facility] Aspir-81 Aspir-81 Yes James [address] [facility] Potassium Potassium Yes James [address] [facility] Chloride Chloride [facility] Lipitor Lipitor Yes James [address] [facility] Ambien Ambien Yes James [facility] Symbicort Symbicort Yes James [address] [facility] Lasix Lasix Yes James 0.5 tablet [facility] Promethazin Promethazin Yes James TAKE ONE [facility] HCl e HCl [facility] TABLET BY [facility] M[facility]TH [facility] EVERY 12 l HOURS Outpati NEEDED FOR ent NAUSEA AND Clinics VOMITING Zoloft Zoloft Yes James [facility] Abilify Abilify Yes James [address] [facility] Metoprolol Metoprolol Yes James [address] [facility] [address] Tartrate Tartrate [facility] with food [facility] Eliquis Eliquis Yes James as [facility] Clopidogrel Clopidogrel Yes James [address] [facility] Bisulfate Bisulfate [facility] Promethazin Promethazin Yes James TAKE ONE [facility] HCl e HCl [facility] TABLET BY [facility] EVERY 12 l HOURS Outpati NEEDED FOR ent NAUSEA AND Clinics VOMITING Vital Signs Vital Name Observation Time Observation Value Comments Source Systolic (mm Hg) 2019-03-13 01:15:00 Mike rial Cabrera Diastolic (mm Hg) 2019-03-13 01:15:00 Mem orial Sharon Temperature Oral (F) 2019-03-13 01:15:00 97.0 F [facility] Sharon Respitory Rate 2019-03-13 01:15:00 Memori al Sharon Heart Rate 2019-03-12 22:53:00 [facility] [place] Respitory Rate 2019-03-12 22:07:00 Memori al [place] Systolic (mm Hg) 2019-03-12 22:07:00 Mike rial Cabrera Diastolic (mm Hg) 2019-03-12 22:07:00 Mem orial Cabrera Heart Rate 2019-03-12 22:07:00 [facility] Sharon Systolic (mm Hg) 2019-03-12 20:52:00 Mike rial Sharon Diastolic (mm Hg) 2019-03-12 20:52:00 Mem orial Sharon Temperature Oral (F) 2019-03-12 20:52:00 97.3 F [facility] Sharon Respitory Rate 2019-03-12 20:52:00 Memori al Sharon Heart Rate 2019-03-12 20:52:00 [facility] [place] Temperature Oral (F) 2019-03-12 16:26:00 97.3 F [facility] Sharon Weight 2019-03-10 08:42:00 [facility] Sharon Weight 2019-03-10 08:31:00 [facility] Sharon Height 2019-03-10 08:31:00 160.02 cm [facility] [place] BMI Calculated 2019-03-10 08:31:00 Memori al Sharon Weight 2019-03-09 20:31:00 [facility] [place] BMI Calculated 2019-03-09 20:31:00 Memori al [place] Height 2019-03-09 20:31:00 172.72 cm [facility] [place] Temperature Oral (F) 2015-03-22 21:22:00 97.5 F [facility] [place] Heart Rate 2015-03-22 21:22:00 [facility] Sharon Respitory Rate 2015-03-22 21:22:00 Memori al Sharon Systolic (mm Hg) 2015-03-22 21:22:00 Mike rial Sharon Diastolic (mm Hg) 2015-03-22 21:22:00 Mem orial Cabrera Heart Rate 2015-03-22 17:00:00 [facility] Sharon Respitory Rate 2015-03-22 17:00:00 Memori al Sharon Temperature Oral (F) 2015-03-22 17:00:00 97.4 F [facility] [place] Systolic (mm Hg) 2015-03-22 17:00:00 Mike rial Cabrera Diastolic (mm Hg) 2015-03-22 17:00:00 Mem orial Cabrera Systolic (mm Hg) 2015-03-22 14:14:00 Mike rial Cabrera Diastolic (mm Hg) 2015-03-22 14:14:00 Mem orial [place] Heart Rate 2015-03-22 14:14:00 [facility] Sharon Temperature Oral (F) 2015-03-22 14:14:00 97.8 F [facility] [place] Respitory Rate 2015-03-22 14:14:00 Memori al Sharon Weight 2015-03-17 00:52:00 [facility] Sharon Height 2015-03-17 00:52:00 160.02 cm [facility] [place] BMI Calculated 2015-03-17 00:52:00 Memori al Sharon Temperature Oral (F) 2014-11-01 00:46:00 98.1 F [facility] [place] Heart Rate 2014-11-01 00:46:00 [facility] [place] Respitory Rate 2014-11-01 00:46:00 Memori al Sharon Systolic (mm Hg) 2014-11-01 00:46:00 Mike rial Sharon Diastolic (mm Hg) 2014-11-01 00:46:00 Mem orial Sharon Temperature Oral (F) 2014-10-31 21:18:00 98.6 F [facility] [place] Heart Rate 2014-10-31 21:18:00 [facility] Sharon Respitory Rate 2014-10-31 21:18:00 Memori al Sharon Systolic (mm Hg) 2014-10-31 21:18:00 Mike rial Cabrera Diastolic (mm Hg) 2014-10-31 21:18:00 Mem orial Sharon Temperature Oral (F) 2014-10-31 15:55:00 98.2 F [facility] Sharon Respitory Rate 2014-10-31 15:55:00 Memori al Sharon Systolic (mm Hg) 2014-10-31 15:55:00 [facility] Diastolic (mm Hg) 2014-10-31 15:55:00 [facility] Heart Rate 2014-10-31 15:55:00 [facility] Weight 2014-10-26 02:54:00 [facility] BMI Calculated 2014-10-26 02:54:00 [facility] Height 2014-10-26 02:54:00 160.02 cm [facility] Diastolic (mm Hg) 2013-11-14 19:30:00 [facility] Heart Rate 2013-11-14 19:30:00 [facility] Systolic (mm Hg) 2013-11-14 19:30:00 [facility] Respitory Rate 2013-11-14 19:30:00 [facility] Temperature Oral (F) 2013-11-14 19:30:00 98.3 F [facility] Heart Rate 2013-11-14 17:18:00 [facility] Respitory Rate 2013-11-14 17:18:00 [facility] Temperature Oral (F) 2013-11-14 17:18:00 98.0 F [facility] Systolic (mm Hg) 2013-11-14 17:18:00 [facility] Diastolic (mm Hg) 2013-11-14 17:18:00 [facility] Diastolic (mm Hg) 2013-11-14 16:00:00 [facility] Systolic (mm Hg) 2013-11-14 16:00:00 [facility] Temperature Oral (F) 2013-11-14 15:04:00 97.4 F [facility] Respitory Rate 2013-11-14 07:00:00 [facility] Height 2013-11-13 11:04:00 162.56 cm [facility] Weight 2013-11-13 11:04:00 [facility] BMI Calculated 2013-11-13 11:04:00 [facility] BMI Calculated 2013-11-13 08:43:00 [facility] Height 2013-11-13 08:43:00 160.02 cm [facility] Weight 2013-11-13 08:43:00 [facility] Heart Rate 2013-11-13 08:43:00 [facility] Heart Rate 2013-05-12 16:17:00 [facility] Diastolic (mm Hg) 2013-05-12 16:17:00 [facility] Systolic (mm Hg) 2013-05-12 16:17:00 [facility] Respitory Rate 2013-05-12 15:30:00 [facility] Diastolic (mm Hg) 2013-05-12 12:53:00 [facility] Systolic (mm Hg) 2013-05-12 12:53:00 [facility] Respitory Rate 2013-05-12 12:53:00 [facility] Heart Rate 2013-05-12 12:53:00 [facility] [facility] Temperature Oral (F) 2013-05-12 12:53:00 99.1 F [facility] Diastolic (mm Hg) 2013-05-12 08:31:00 [facility] Systolic (mm Hg) 2013-05-12 08:31:00 Mike rial [facility] Respitory Rate 2013-05-12 08:31:00 [facility] Heart Rate 2013-05-12 08:31:00 [facility] Temperature Oral (F) 2013-05-12 08:31:00 99.8 F [facility] Temperature Oral (F) 2013-05-12 04:50:00 99.8 F [facility] Height 2013-05-09 03:31:00 160.02 cm [facility] Weight 2013-05-09 03:31:00 [facility] Respitory Rate 2012-07-22 01:09:00 [facility] Systolic (mm Hg) 2012-07-22 01:09:00 Mike rial [facility] Diastolic (mm Hg) 2012-07-22 01:09:00 [facility] Temperature Oral (F) 2012-07-22 01:09:00 98.6 F [facility] Heart Rate 2012-07-22 01:09:00 [facility] Diastolic (mm Hg) 2012-07-21 21:10:00 [facility] Systolic (mm Hg) 2012-07-21 21:10:00 Mike rial [facility] Temperature Oral (F) 2012-07-21 21:10:00 97.2 F [facility] Heart Rate 2012-07-21 21:10:00 [facility] Respitory Rate 2012-07-21 21:10:00 [facility] Temperature Oral (F) 2012-07-21 18:26:00 98.5 F [facility] Heart Rate 2012-07-21 18:26:00 [facility] Respitory Rate 2012-07-21 18:26:00 [facility] Diastolic (mm Hg) 2012-07-21 18:26:00 Mem [facility] Systolic (mm Hg) 2012-07-21 18:26:00 Mike rial [facility] Weight 2012-07-19 12:37:00 [facility] Height 2012-07-19 12:37:[address] [facility] Procedures Procedure Date / Time Performing Clinician Source Performed Spinal puncture, 2015-03-17 20:30:27 [facility] rmann therapeutic, for drainage of cerebrospinal fluid (by needle or catheter) Appendectomy [facility] Cholecystectomy [facility] Ankle fusion<sup>1</sup> Memoria l [facility] Appendectomy [facility] Cholecystectomy [facility] Fixation of fracture using Mem[facility] plate Hysterectomy [facility] Encounters Start End Encounter Admission Attending Care Care Encounter Source Date/Time Date/Time Type Type Clinicians Facility Department ID 2020-03-28 2020-03-28 [facility] [id number] [facility] [address] 16:00:00 16:00:00 [employer] [facility] Medicine [facility] ent [facility] 2020-03-27 2020-03-27 Leonor Escobar [facility] [id number] 00:00:00 00:00:00 Ludwig Gill [id number] [place] [id number] [facility] [id number] [address] 2020-02-21 2020-02-21 Outpatient [facility] [id number] 15:00:00 15:00:00 [employer] [facility] Medicine Outpati ent [facility] 2020-02-16 2020-02-16 [facility] [id number] 07:13:00 07:13:[address] [facility] Medicine Outpati ent Clinics 2020-02-15 2020-02-15 [facility] [id number] 14:22:00 14:22:00 [facility] 2020-01-06 2020-01-21 Telemedici Shawn [facility] [id number] 08:06:15 01:22:36 ne Visit Ludwig Gill [id number] [place] [id number] [facility] [id number] nal 9 [facility] 2020-01-17 2020-01-17 Orders Doctor RILEY [id number] 00:00:00 00:00:00 Only Unassigned, OSITO [id number] [place] [facility] [id number] 2020-01-12 2020-01-12 [facility] [id number] 16:30:00 16:30:[address] [facility] Medicine Outpati ent Clinics 2019-12-27 2019-12-27 [facility] [id number] 14:45:00 14:45:00 [facility] Medicine Outpati ent Clinics 2019-09-27 2019-09-27 [facility] [id number] 15:00:00 15:00:00 [facility] Medicine Outpati ent Clinics 2019-03-09 2019-03-12 Outpatient Natasha [facility] [id number] 15:30:52 21:00:00 Vonda K 00 2019-03-09 2019-03-09 Inpatient [facility] [address] [place] [address] 18:36:00 15:30:00 2015-03-16 2015-03-22 Outpatient Yissel [facility] [id number] 18:33:00 20:09:00 Gael Stephenson 11 2014-10-25 2014-10-31 Outpatient DEREJE Garcia [facility] [id number] 20:37:00 20:05:00 Wilberto 69 2013-11-13 2013-11-14 [facility] DEREJE Garcia [facility] [id number] 03:43:00 18:45:00 Wilberto Results Test Description Test Time Test Comments Results Result Comments Source CHEM PANEL 2019-03-12 2.6 [facility] 08:51:00 CHEM PANEL 2019-03-12 101 [facility] 08:51:00 CHEM PANEL 2019-03-12 8.2 [facility] 08:51:00 CHEM PANEL 2019-03-12 97 [facility] 08:51:00 CHEM PANEL 2019-03-12 3.3 [facility] 08:51:00 CHEM PANEL 2019-03-12 110 [facility] 08:51:00 CHEM PANEL 2019-03-12 15.3 [facility] 08:51:00 CHEM PANEL 2019-03-12 21 [facility] 08:51:00 CHEM PANEL 2019-03-12 5 [facility] 08:51:00 CHEM PANEL 2019-03-12 0.64 [facility] 08:51:00 CHEM PANEL 2019-03-12 143 [facility] 08:51:00 CHEM PANEL 2019-03-12 1.9 [facility] 08:51:00 HEMATOLOGY 2019-03-12 0.1 [facility] 08:51:00 HEMATOLOGY 2019-03-12 3.0 [facility] 08:51:00 HEMATOLOGY 2019-03-12 1.2 [facility] 08:51:00 HEMATOLOGY 2019-03-12 62.0 [facility] 08:51:00 HEMATOLOGY 2019-03-12 2.6 [facility] 08:51:00 HEMATOLOGY 2019-03-12 0.4 [facility] 08:51:00 HEMATOLOGY 2019-03-12 29.6 [facility] 08:51:00 HEMATOLOGY 2019-03-12 4.2 [facility] 08:51:00 HEMATOLOGY 2019-03-12 0.3 [facility] 08:51:00 HEMATOLOGY 2019-03-12 5.5 [facility] 08:51:00 HEMATOLOGY 2019-03-12 3.64 [facility] 08:51:00 HEMATOLOGY 2019-03-12 10.5 [facility] nn 08:51:00 HEMATOLOGY 2019-03-12 194 [facility] 08:51:00 HEMATOLOGY 2019-03-12 8.0 [facility] nn 08:51:00 HEMATOLOGY 2019-03-12 16.7 [facility] nn 08:51:00 HEMATOLOGY 2019-03-12 8.9 [facility] nn 08:51:00 HEMATOLOGY 2019-03-12 08:51:00 Test Item Value Reference Range Interpretation Comme nts MCH (test code = MCH) 29.0 pg 27.0-31.0 [facility] QaskocuXQAXWAEDWP6149-76-12 08:51:0032.7[facility] HermannHEMATOLOGY 2019-03-12 08:51:0088.4[facility] UvetbnkCCYQJGMFYA3960-14-24 08:51:0032.2[facility] HermannPARATHYROID CSZXVLU2295-41-51 08:51:001.05[facility] HermannPARATHYROID GHOOXXQ5376-97-44 08:51:001.05[facility] HermannCHEM TTUGG9888-88-47 21:57:0083 [facility] HermannCHEM PQZZM4478-58-37 21:57:0011.4[facility] HermannCHEM PANEL 2019-03-11 21:57:008.2[facility] HermannCHEM XPMBG1862-66-37 21:57:0025[facility] HermannCHEM OPUYK6355-93-15 21:57:40416Kassvnvp HermannCHEM MFBQR1690-03-35 21:57:003.4[facility] HermannCHEM PSXCI1180-44-56 21:57:000.80[facility] HermannCHEM YYFTJ5668-84-65 21:57:71480Spihghco HermannCHEM GLQOS2339-34-25 21:57:03687 [facility] HermannCHEM BQWUP9515-23-87 21:57:004[facility] HermannPARATHYROID VQZUEAQ2535-91-47 21:57:001.07[facility] HermannPARATHYROID TXCLLBS0380-67-30 21:57:001.07[facility] HermannURINE AND ODOWT8562-01-51 21:57:004[facility] URINE AND XJUZC9621-68-94 21:57:00Negative (03/11/19 4:57 PM)[facility] URINE AND TVKIU9173-71-05 21:57:00<1.0[facility] HermannURINE AND STOOL 2019-03-11 21:57:00Negative (03/11/19 4:57 PM)[facility] STOOL 2019-03-11 21:57:00Negative *NA*(03/11/19 4:57 PM)[facility] STOOL 2019-03-11 21:57:00Negative (03/11/19 4:57 PM)[facility]ann[facility] STOOL 2019-03-11 21:57:001[facility]annURINE AND DOPWD4084-68-39 21:57:00Yellow *NA*(03/11/19 4:57 PM)[facility]ann[facility] AND LWKLD0996-26-99 21:57:00Slight *ABN*(03/11/19 4:57 PM)[facility] AND BECZB7603-46-44 21:57:00 Test Item Value Reference Range Interpretation Comments UA Spec Grav (test code = UA Spec 1.016 1 Grav) [facility]annURINE AND QVRWA8838-01-46 21:57:00 Test Item Value Reference Range Interpretation Comments UA pH (test code = UA pH) 8.0 1 5.0-8.0 [facility]annURINE VYEP6568-76-26 21:57:007.4[facility]annURINE CHEM 2019-03-11 21:57:01084Dwvcmisy HermannURINE FKXO4113-18-11 21:57:49008Mdyozmjj HermannURINE HBKR7052-66-24 21:57:12014Dfmzrvfn HermannURINE VZLD6392-23-93 21:57:00Negative (03/11/19 4:57 PM)[facility] HermannCHEM TDTKZ5690-52-90 09:03:00 109[facility] HermannCHEM PCOBB6121-66-80 09:03:002.9[facility] HermannCHEM PANEL 2019-03-11 09:03:18134Wmvwxgtb HermannCHEM HNKFO6690-01-50 09:03:000.51[facility] HermannCHEM LMGHY1042-53-73 09:03:004[facility] HermannCHEM MITZO6522-88-36 09:03:0079[facility] HermannCHEM MLMZF4861-88-30 09:03:007.6[facility] HermannCHEM UKLUA6625-90-71 09:03:009.9[facility] HermannCHEM DWIAA3917-06-65 09:03:0027 [facility] HermannCHEM ZLBKL9958-52-02 09:03:67735Qdtsqjby HermannCHEM PANEL 2019-03-11 09:03:003.7[facility] HermannCHEM OWNEH4708-62-18 09:03:002.0[facility] GzmwnbnSEJWBSLXCI7460-32-12 09:03:008.1[facility] BaxyyczMRDOVZEROW8830-81-68 09:03:37299Rckuzegq EcshdhiPVYBKFCZMF2431-47-48 09:03:0016.6[facility] VZKVWUZWBB0949-54-79 09:03:00 Test Item Value Reference Range Interpretation Comments MCH (test code = MCH) 29.0 pg 27.0-31.0 [facility] KnvwkgrQGIELQZNNQ2670-07-75 09:03:0033.0[facility] HermannHEMATOLOGY 2019-03-11 09:03:003.64[facility] AtnfnpvPJYWGGKOXO9014-40-78 09:03:0010.6[facility] PuwpzpgKFRDEILAAK6500-48-94 09:03:009.3[facility] KdjkrsgUJINLDPNDI6167-67-97 09:03:0087.8[facility] WfkzpciZLRPQZKNFW2924-02-10 09:03:0032.0[facility] RJQZNITDOM5359-32-54 09:03:004.0[facility] QpzuajrQAYQGWAJRR5313-89-47 09:03:00 62.5[facility] HhdexrpBGVFHSBHAL1801-19-71 09:03:0027.8[facility] HermannHEMATOLOGY 2019-03-11 09:03:004.5[facility] OxpxznxIZUEONNFHN0226-49-01 09:03:005.8[facility] NrjjthmBJKKIJHDBV0286-83-47 09:03:002.6[facility] WbedtffGXPHERTDZJ8107-60-88 09:03:000.4[facility] GkbplptRRSUZXSIGO8491-01-70 09:03:000.4[facility] BIHHQMNBSU9919-73-75 09:03:001.2[facility] WkvtnjbHHEERQRNOW0978-69-71 09:03:000.1 [facility] HermannPARATHYROID RYGAOAT5727-61-65 09:03:000.91[facility] PARATHYROID WGXOLSF5601-99-84 09:03:000.96[facility] DpjoxukKVBONDICOV2699-68-61 19:00:000.3[facility] ObesmirSEFIJHUNJL1560-34-75 19:00:000.4[facility] GSCPQMXFZU7851-31-75 19:00:002.8[facility] XfatbbmBTLIYLJACD8544-65-67 19:00:000.1 [facility] JyveybmHYZDGXVXGU6161-59-13 19:00:0061.6[facility] HermannHEMATOLOGY 2019-03-10 19:00:0029.1[facility] BlzkrymGUMQVOBPPC5963-39-44 19:00:001.2[facility] SrqdbecADXGGWPNQD5983-52-33 19:00:004.5[facility] VimvzldBYSSGDESND1581-51-92 19:00:005.8[facility] TysgrokNUQCBOSIIE6595-94-32 19:00:003.6[facility] AKASFFFNRN2599-52-38 19:00:007.9[facility] MjvnsbtNAXMOCLBSJ7098-35-51 19:00:00 34.6[facility] NhoelfwLYLRZJFEBT4087-53-95 19:00:00 Test Item Value Reference Range Interpretation Comments MCH (test code = MCH) 28.6 pg 27.0-31.0 [facility] SxxiullQFDFCHTUUK5490-47-06 19:00:0088.5[facility] HermannHEMATOLOGY 2019-03-10 19:00:81537Hqnnhidw OzhzgkmCPHWDWRREY5259-69-80 19:00:0016.7[facility] NnbaazqUJDPYOIIAT8518-98-94 19:00:0032.3[facility] CllvpkvAEBENVJPDA4440-92-07 19:00:0011.2[facility] BecbcmtJYLTGRGIGM1997-61-41 19:00:003.91[facility] LGKVRRUCCO8381-45-26 19:00:009.5[facility] XvmvvbjUALIPAUXOY1516-00-86 19:00:00 Test Item Value Reference Range Interpretation Comments INR (test code = INR) 1.06 1 0.85-1.17 [facility] HybvoxpTALNOWQGKQ2344-81-33 19:00:00 Test Item Value Reference Range Interpretation Comments PT (test code = PT) 13.6 s 12.0-14.7 [facility] WoepndbMKAVNTPWCL8906-18-67 19:00:00 Test Item Value Reference Range Interpretation Comments PTT (test code = PTT) 36.3 s 22.9-35.8 [facility] HermannCARDIAC MMFTCSP9162-90-39 11:47:000.30[facility] HermannCHEM PANEL 2019-03-10 11:47:001.6[facility] HermannCHEM KMPJB7783-58-63 11:47:002.1[facility] BjpulyzAQZTLV5177-70-69 11:47:00 Test Item Value Reference Range Interpretation Comments VLDL (test code = VLDL) 39 1 [facility] DqqxjrtCIMZFX2575-26-98 11:47:0036[facility] LvftmwoAZOKLW1579-94-34 11:47:0028[facility] JfhwwayWHSNBE1415-19-66 11:47:38440Ffdudkue HermannLIPIDS 2019-03-10 11:47:46838Zzueazcq HvkifkoFIEJRN6047-56-88 11:47:00 Test Item Value Reference Range Interpretation Comments CHD Risk (test code = CHD Risk) 3.68 1 3.90-5.80 [facility] HermannSPECIAL MQNARZQMT4038-33-84 11:47:004.8[facility] HermannANEMIA TYCCR1158-39-94 09:18:14673Jnxpfbpm HermannANEMIA LWQEB4504-77-95 09:18:004.4 [facility] HermannCARDIAC CTPFCPQ7424-91-00 09:18:0010[facility] HermannCHEM PANEL 2019-03-10 09:18:25480Tbrqqeqx OoxggmwMAKEKIVTNO5683-58-11 07:49:00 Test Item Value Reference Range Interpretation Comments PTT (test code = PTT) 42.4 s 22.9-35.8 [facility] RfwuzwsVWTUUSDYLC4317-56-35 07:49:00 Test Item Value Reference Range Interpretation Comments PT (test code = PT) 13.5 s 12.0-14.7 [facility] MmpovaqEHVCPFVISI9204-98-04 07:49:00 Test Item Value Reference Range Interpretation Comments INR (test code = INR) 1.05 1 0.85-1.17 [facility] HermannCARDIAC TTHNSGF2739-48-97 07:00:000.48[facility] HermannCARDIAC PBGYMUG8804-48-42 22:16:000.50[facility] HermannCARDIAC OEGYKMH6302-49-45 22:16:00 63[facility] HermannCHEM LFPXS7692-67-37 22:16:001.2[facility] HermannHEMATOLOGY 2019-03-09 22:16:00 Test Item Value Reference Range Interpretation Comments PTT (test code = PTT) 31.7 s 22.9-35.8 [facility] WvysbbgWUAYOQNINA4254-83-53 22:16:00 Test Item Value Reference Range Interpretation Comments INR (test code = INR) 1.07 1 0.85-1.17 [facility] LylvtvhWPWVEOQILW7859-39-70 22:16:00 Test Item Value Reference Range Interpretation Comments PT (test code = PT) 13.7 s 12.0-14.7 [facility] HermannCHEM XVCFK7238-28-08 09:12:003.5[facility] HermannCHEM PANEL 2015-03-22 09:12:001.8[facility] DypwgylMJRKYPDSOHYB3997-00-79 09:12:0022[facility] PoggsyrEXGZTGQUFQVO8370-70-73 09:12:008.9[facility] FnuovqwVFBLHKPFGXYY4797-52-93 09:12:0014.6[facility] MpqvdvhHPFAMIOVITIX8589-84-93 09:12:40790Tjslxzqr [facility] XBRPZKNEQJMH7475-98-34 09:12:003.6[facility] MotjkneDBFUJEQTPPXL5386-90-24 09:12:000.9[facility] DlzxpbiEIUXRYSNGQZB9243-56-45 09:12:24035Maprkynq [facility] WUZXYUNKSTON8787-48-15 09:12:0081[facility] BvvlsehXBJERQUCYUNW3560-75-57 09:12:00 10[facility] IokwbloYYBLBRELRZUV9232-60-34 09:12:0075[facility] HermannHEMATOLOGY 2015-03-22 09:12:007.5[facility] WztkqzeWUXDCMZWGG9559-80-40 09:12:78681Yyyficaa NspockfLPPOFXWIAJ1214-00-24 09:12:0011.7[facility] JveoapbQQTALMBMGF6895-43-72 09:12:0032.6[facility] SdamozzUTTCZIRBIO8208-15-03 09:12:0084.1[facility] GTZNFYLTSX3869-27-37 09:12:003.87[facility] ItffaqqXSQDKMSLQG2678-56-01 09:12:00 10.4[facility] RtmyuqzNNVPRBUZBE0886-86-60 09:12:0031.9[facility] HermannHEMATOLOGY 2015-03-22 09:12:00 Test Item Value Reference Range Interpretation Comments MCH (test code = MCH) 26.8 pg 27.0-31.0 [facility] RwfyzprTMNGTTXPEH1154-28-92 09:12:0017.6[facility] HermannHEMATOLOGY 2015-03-22 09:12:001.0[facility] MucabqhTFFKAMSXVF8937-19-56 09:12:007.4[facility] CxefrypPQPLQAXXPA8205-02-20 09:12:0038.6[facility] CoehvgqLWNHYVFNRF4501-69-16 09:12:0052.0[facility] BdvctieFKVUZVUUAH2166-64-24 09:12:001.0[facility] GHVULJEJEC1201-08-62 09:12:006.1[facility] SvalazjSVYWRGEBFT3040-94-23 09:12:000.1 [facility] RnoitpqBHYSNEQIDD4925-56-43 09:12:000.9[facility] HermannHEMATOLOGY 2015-03-22 09:12:000.1[facility] ZwgaasuJPAIPOKYDH4700-95-43 09:12:004.5[facility] NplvszxCIRDEIXHFZ7030-59-24 16:38:005.0[facility] YxyzlxwKTUPMRWUNO8759-43-73 16:38:0014.5[facility] WfxugtcNSGMHCVMPF0423-06-38 16:38:0016.2[facility] SDAWFJWZAR6021-45-90 16:38:0015.1[facility] OfanzpbWACKEFMZND1822-60-48 16:38:00 49.2[facility] MfcvvviBUTLXTLJFE7600-42-34 16:38:000.34[facility] HermannIMMUNOLOGY 2015-03-21 16:38:006.8[facility] GbdevnaGPJRWHLXDQ8522-57-58 16:38:003.35[facility] NudbogsEGHSXFGCAI4485-09-67 16:38:000.99[facility] GgpvptkOALQIBZZKO3658-29-21 16:38:001.10[facility] RmfbhgtRUUZNSAWOV2663-29-94 16:38:001.03[facility] CHEM UNSTR4045-00-77 09:35:23125Lsvrhhec HermannCHEM LOVSN2925-29-65 09:35:009.1 [facility] HermannCHEM QZFBE0438-59-05 09:35:003.8[facility] HermannCHEM PANEL 2015-03-21 09:35:0021[facility] HermannCHEM ETVUF5774-03-78 09:35:84472Gxhngxpl HermannCHEM NPGMK3290-63-50 09:35:0011[facility] HermannCHEM HJPZZ6950-96-80 09:35:22760Pncedscx HermannCHEM XOSQN1875-08-24 09:35:0083[facility] HermannCHEM FKWIH1696-87-97 09:35:000.7[facility] HermannCHEM OBNDB0390-10-37 09:35:0014.8 [facility] HermannCHEM DOBDO7976-57-93 09:35:001.8[facility] HermannCHEM PANEL 2015-03-21 09:35:004.1[facility] LretmjeZROSCCCOKP0311-63-35 09:35:000.1[facility] LnttdlwQFTZFSXLFC0824-62-55 09:35:000.7[facility] VdpqncqMCGAKSKSJU8940-50-89 09:35:001.0[facility] GrhjyucEPWEWNAKMF2616-50-43 09:35:001.2[facility] LVVLRYVHEP8470-75-31 09:35:003.7[facility] StnlamxALJVLREYUC2533-68-85 09:35:005.4 [facility] TquqagjMVQDDFDOZG7609-55-30 09:35:006.9[facility] HermannHEMATOLOGY 2015-03-21 09:35:000.1[facility] QorxvwmZOWCBPCYKV9098-55-50 09:35:0054.0[facility] GjbraxfRQKMPMYOWE8344-31-60 09:35:0036.9[facility] JqswfwpAHWTCPWAXG7643-79-68 09:35:0032.9[facility] HfwqneaGTEDGUWNCF1284-59-38 09:35:0010.8[facility] CCDKNXRSKA7958-89-98 09:35:003.91[facility] LibobwiURQGECSTWN8595-41-50 09:35:00 10.0[facility] CepbxajYWUAOYKHIL0581-83-61 09:35:0032.9[facility] HermannHEMATOLOGY 2015-03-21 09:35:0017.2[facility] ChswhvzQRFJHOSSBH9601-59-07 09:35:00 Test Item Value Reference Range Interpretation Comments MCH (test code = MCH) 27.7 pg 27.0-31.0 [facility] OcjofemQKAGKNCQWI2705-48-07 09:35:0084.2[facility] HermannHEMATOLOGY 2015-03-21 09:35:007.5[facility] LcxirgvCZUWFMAAUY0613-49-62 09:35:87850Sqxqbdxa MdjsopzYNCYIRFSEY0889-44-16 04:39:036.4[facility] HermannCHEM CMXHK2956-62-27 08:41:90340Csoxsggy HermannCHEM SJMYD3009-12-05 08:41:31729Qrseajha HermannCHEM OIYBL8534-77-27 08:41:0071[facility] HermannCHEM RUJTN4713-03-71 08:41:007[facility] HermannCHEM QOCZP6009-70-47 08:41:000.7[facility] HermannCHEM XFOOM7903-79-96 08:41:003.9[facility] HermannCHEM FZCGX2474-82-59 08:41:009.2[facility] HermannCHEM RRJZU3413-94-21 08:41:90334Kmpwwhkt HermannCHEM WONDE2111-37-08 08:41:0023 [facility] HermannCHEM DOBGR0877-90-00 08:41:0013.9[facility] HermannCHEM PANEL 2015-03-20 08:41:001.9[facility] HermannCHEM JAVYW8011-42-04 08:41:003.6[facility] ZifssyaAESNWOUGBH2475-13-42 08:41:0033.2[facility] SaumwiaKPWGJOGNUA5762-31-71 08:41:02255Emdzlftj YouwijiAUDYJUTLYE3852-37-99 08:41:0017.2[facility] XWLXMVCRXE4245-33-87 08:41:004.07[facility] HjguaidIYQIOKUVWE2886-87-04 08:41:00 9.6[facility] MvuefjaEODQLHTHHA9272-96-32 08:41:0011.2[facility] HermannHEMATOLOGY 2015-03-20 08:41:0033.6[facility] YnzazdyHJNPDNPMHM8845-04-89 08:41:0082.6[facility] QnlfvaxLENHLTZFJN9281-22-32 08:41:00 Test Item Value Reference Range Interpretation Comments MCH (test code = MCH) 27.4 pg 27.0-31.0 [facility] QthcmpsNFKWSBKISP3711-17-04 08:41:007.7[facility] HermannHEMATOLOGY 2015-03-20 08:41:0055.3[facility] DicplrjXTCPVHTTQT2600-98-11 08:41:001.9[facility] QqmvsihPOSXZMIQRR3115-62-95 08:41:0035.6[facility] YcsxtoxMKFDDTMUTN6562-60-64 08:41:006.2[facility] HcobqykOQTSGUCFQU6268-72-43 08:41:001.0[facility] YJZOCFIBMJ3492-94-82 08:41:005.3[facility] LfihwieQEGNSQBUVP0324-94-68 08:41:003.4 [facility] OspiwmvAPTARWRTJJ0888-12-04 08:41:000.6[facility] HermannHEMATOLOGY 2015-03-20 08:41:000.1[facility] FaetwluLMQLLSIXWI3481-12-28 08:41:000.2[facility] WqzcdrvOAFLLBRFSH7750-12-87 08:41:00050Jkxzrdja UtzmjqsRTGHZUCJFU1750-71-54 16:56:000.91[facility] NalzfyrGIQKLPILZY2873-40-69 16:56:00Negative (03/19/15 11:56 AM)[facility] DognstiYESFSKYHCF5538-15-08 16:56:00Non Reactive *NA*(03/19/15 11:56 AM)[facility] BdnhneaADQBDFZVBR4700-32-65 21:44:00Negative *NA*(03/18/15 4:44 PM) [facility]VIRAL - UGIPYNPN5605-37-40 21:44:00<0.90[facility] CARDIAC UOLIAYG8178-45-28 00:57:00<0.02[facility] WhoysffHFWWFPNNBD5682-61-99 18:50:00 Test Item Value Reference Range Interpretation Comments PT (test code = PT) 14.5 s 12.0-14.7 [facility] XvvjgaiUAUPAENPNL0842-00-17 18:50:001.12[facility]annHEMATOLOGY 2015-03-17 18:50:00 Test Item Value Reference Range Interpretation Comments PTT (test code = PTT) 31.2 s 22.9-35.8 [facility]annCARDIAC TTJMZZY5270-50-07 17:15:00<0.02[facility]annCHEM QEAFU5801-21-18 17:15:0071.0[facility]annBODY CQKEHE1743-66-17 16:15:0042 [facility]annBODY SJCBJK6757-21-76 16:15:009[facility]annB[facility] FLUIDS 2015-03-17 16:15:001[facility]annBODY ASAFXD5148-45-62 16:15:0090[facility]annBODY TGLIZE6341-77-05 16:15:00Clear (03/17/15 11:15 AM)[facility] BODY FHDNFR2077-31-03 16:15:00Colorless (03/17/15 11:15 AM)[facility]annB[facility] XDBKQI9197-98-93 16:15:00 Test Item Value Reference Range Interpretation Comments Tube Num CSF (test code = Tube Num CSF) 3 1 [facility]annB[facility] JIGFQH1657-81-28 16:15:00Colorless (03/17/15 11:15 AM) [facility]annB[facility] DFHOJC2104-71-24 16:15:003[facility]annBODY FLUIDS 2015-03-17 16:15:25726Nnqplyru HermannBODY YZXUEB2802-84-74 16:15:0071[facility] ZuhehzwPTUUFMXHJA2149-34-22 16:15:00Non Reactive (03/17/15 11:15 AM)[facility]annMOLECULAR EOGRKQTXLR3394-56-68 16:15:00Negative 9(03/17/15 11:15 AM) [facility]annMOLECULAR NSQLXYHWEG8463-72-72 16:15:00Negative 8(03/17/15 11:15 AM)[facility]annVIRAL - TCYVQLCS5022-08-29 16:15:00Negative (03/17/15 11:15 AM)[facility]annBACTERIAL - PVIJHRVG4534-00-56 12:34:00Negative (03/17/15 7:34 AM)[facility] IpwmukaRRHCQNGFQO4563-30-03 04:26:64153Zucwsick HermannBLOOD BANK HYGBRTD0446-00-97 02:18:00Negative (03/16/15 9:18 PM)[facility]annCHEM PANEL 2015-03-17 02:18:000.7[facility]annCHEM UYOMY5544-84-96 02:18:0012[facility]annCHEM IIMTT6896-47-66 02:18:003.9[facility]annCHEM UWIMY5822-81-13 02:18:005[facility] HermannCHEM NHJJC7943-27-59 02:18:03035Qrnvoppc HermannCHEM XNPWW4113-01-23 02:18:000.2[facility]annCHEM YRFIY5779-72-28 02:18:0019 [facility]annCHEM RAGBN8791-19-93 02:18:006.8[facility]annCHEM PANEL 2015-03-17 02:18:002.9[facility]annDRUG IXREVY4215-90-06 02:18:00See Note *NA*(03/16/15 9:18 PM)[facility]annDRUG MCEUHV6524-50-95 02:18:00Negative *NA*(03/16/15 9:18 PM)[facility]annDRUG KCUTVJ0170-68-87 02:18:00Negative *NA*(03/16/15 9:18 PM)[facility]annDRUG VSEBUW2006-13-55 02:18:00Negative *NA*(03/16/15 9:18 PM)[facility]annDRUG PGMJTM1871-32-13 02:18:00Negative *NA*(03/16/15 9:18 PM)[facility]annDRUG YDAYOD8328-96-90 02:18:00Negative *NA*(03/16/15 9:18 PM)[facility]annDRUG GMFESN3370-90-38 02:18:00Negative *NA*(03/16/15 9:18 PM)[facility]annDRUG SVZCAQ5137-43-31 02:18:00Negative *NA*(03/16/15 9:18 PM)[facility]annDRUG ZHPVTW9682-08-67 02:18:00Negative *NA*(03/16/15 9:18 PM)[facility]annDRUG FLGNLJ2789-42-22 02:18:00Negative *NA*(03/16/15 9:18 PM)[facility] CzmlgcyJUMTKCQAEL1931-63-50 02:18:00 Test Item Value Reference Range Interpretation Comments PTT (test code = PTT) 29.7 s 22.9-35.8 [facility]annPARATHYROID JHZHYQP9039-91-51 02:18:001.15[facility] PARATHYROID FMQVLGS2414-73-49 02:18:001.12[facility]annURINE AND STOOL 2015-03-17 02:18:00Negative *NA*(03/16/15 9:18 PM)[facility]annURINE AND STOOL 2015-03-17 02:18:00Negative (03/16/15 9:18 PM)[facility]annURINE AND STOOL 2015-03-17 02:18:00Negative (03/16/15 9:18 PM)[facility]annURINE AND STOOL 2015-03-17 02:18:00Negative (03/16/15 9:18 PM)[facility]annURINE AND STOOL 2015-03-17 02:18:00<1[facility]annURINE AND GRDKZ4350-42-20 02:18:007.0 [facility]annUR[facility] AND HGMAS6821-98-06 02:18:00Clear (03/16/15 9:18 PM) [facility]annUR[facility] AND GUROW8765-57-00 02:18:001.009[facility]annURINE AND JMZGU6072-26-88 02:18:00Light Yellow *NA*(03/16/15 9:18 PM)[facility] QHOOMTCHUU4501-62-87 13:30:00 Test Item Value Reference Range Interpretation Comments PTT (test code = PTT) 36.1 s 22.9-35.8 [facility] XcojypzCKVFYENSOG0078-70-06 13:30:00 Test Item Value Reference Range Interpretation Comments PT (test code = PT) 14.6 s 12.0-14.7 [facility] JbwwuxlTYAGJBDIZI8592-48-13 13:30:001.13[facility] HermannTOXICOLOGY 2014-10-31 13:30:723117Stnwemcx MqjcyzeZJSHXQZNPO4604-82-64 13:30:0025.2[facility] HermannCHEM UXXPS7899-65-51 06:18:003.1[facility] HermannCHEM VAZHT9682-27-73 06:18:001.8[facility] DpovshbPZCCZGHBYOMG3139-74-13 06:18:0014.1[facility] PGETJRGMKTCU6457-73-00 06:18:36366Nqlvlwnk SynfuyxIMPSHLFXFOEG7200-92-14 06:18:77267Dxcflhsp XwjyysoLZJDMVDKHARW6641-33-33 06:18:08502Tynafsqj Cabrera QWAGNTORWLOY4903-96-05 06:18:004.1[facility] CkhlfrvAUMSCMGLMFEW5622-81-25 06:18:008.5[facility] YuorcxcCGNLMSLAISIM1103-69-56 06:18:0025[facility] EIUCXZDEQYVX0547-79-28 06:18:000.6[facility] HtspklbVPMSYZOTYTFM7150-15-29 06:18:0062[facility] TycxjzsXZESRIHPMESN2215-48-86 06:18:006[facility] TPHXOXMTRC7796-51-68 06:18:000.1[facility] MrtzcsbERGNBNZXGT3425-37-17 06:18:005.7 [facility] RhzhdmiXDXYBTGPGI3908-81-59 06:18:005.0[facility]annHEMATOLOGY 2014-10-31 06:18:0031.1[facility] JxexnvlCCHZUUNBCW9846-08-27 06:18:005.7[facility] CdsmlqdONAEDMQZYZ2196-16-03 06:18:0057.7[facility] AtjgzbxOMVVBQVSGJ0363-44-59 06:18:000.5[facility] NafvexaWHJPBPNSLO9248-36-44 06:18:000.6[facility] YFJDBKWLTM4504-43-73 06:18:000.5[facility] SqiexryNVXYRDIIPX0191-22-37 06:18:003.1 [facility] SzconorQCTKOUXPGU6526-71-15 06:18:001.08[facility]annHEMATOLOGY 2014-10-31 06:18:00 Test Item Value Reference Range Interpretation Comments PTT (test code = PTT) 33.9 s 22.9-35.8 [facility] YpgukrgUIGGCHDAAD9773-72-98 06:18:00 Test Item Value Reference Range Interpretation Comments PT (test code = PT) 14.1 s 12.0-14.7 [facility] MenlxasUKBNNJWVMO6996-98-01 06:18:0010.0[facility] HermannHEMATOLOGY 2014-10-31 06:18:003.22[facility] AzsoitwYLYVMGNEWD2764-04-09 06:18:0028.9[facility] AqlxulvTLJXVVDDGQ3506-18-24 06:18:009.7[facility] OacyoceXNKGXWVARP7305-71-36 06:18:0033.4[facility] DuclscpFVVAWFDPPC8475-49-93 06:18:00 Test Item Value Reference Range Interpretation Comments MCH (test code = MCH) 30.0 pg 27.0-31.0 [facility] OorcfetKJGOFJLINP0170-59-08 06:18:0089.8[facility]annHEMATOLOGY 2014-10-31 06:18:008.2[facility] AgxgnoqGSLCKTZEDP4498-67-18 06:18:68032Bbzvcbti AhmtyucLHIPOUATFX8916-08-49 06:18:0016.4[facility] HermannPARATHYROID PROFILE 2014-10-31 06:18:001.08[facility] HermannPARATHYROID AQYEMXQ7006-25-78 06:18:00 1.05[facility] HermannCARDIAC HSCYYNZ8894-80-94 07:00:0070[facility] HermannCHEM ZTPLQ4778-83-74 07:00:003.2[facility] HermannCHEM USXST3812-49-21 07:00:001.8 [facility] NvadqwbRDSHXNSTRTFD0780-62-52 07:00:0010.6[facility] HermannELECTROLYTES 2014-10-30 07:00:0079[facility] CkwenvhSTCBSLOKPJQZ0650-06-95 07:00:008[facility] BehohfcLLJISTMWMPRP0648-42-03 07:00:000.6[facility] BmozqoeEYQRVFPEYJBO5989-47-87 07:00:0027[facility] KjctyqjTWCYEPOHJPSA1591-30-40 07:00:008.1[facility] HCKXCLUJOMFT6975-12-25 07:00:003.6[facility] WyfjkgnTKBAOAKVIOFP7797-92-31 07:00:11926Nzvqlfdl BdewlxaSIGBVZRBJDHS5491-35-55 07:00:27493Voqlewmm [facility] IARAAIIYHBPF1973-12-42 07:00:08502Iohluchu CiyuxydNZJGRPVXZM5551-96-31 07:00:00 0.4[facility] TjdqmqpTLGJUNBVHS8602-62-30 07:00:004.9[facility]annHEMATOLOGY 2014-10-30 07:00:000.6[facility] WcdigpeRBWALLGXTK9720-37-73 07:00:0049.4[facility] EynlbqwCGFGCKNTKH2890-70-23 07:00:005.8[facility] HzqbeomHVFRJDCRYY3541-43-99 07:00:003.7[facility] KmqxqubRMMJSQCRTL0287-64-33 07:00:0041.4[facility] ACSFYZNMKU3571-88-26 07:00:000.4[facility] ImuykqbRGNFOSNJAD8534-46-00 07:00:005.1 [facility] IcmlxjfUAVDYXGXKX7321-72-38 07:00:00 Test Item Value Reference Range Interpretation Comments MCH (test code = MCH) 29.4 pg 27.0-31.0 [facility] TrjcopbJPZVIKZRIU5744-56-41 07:00:0027.5[facility] HermannHEMATOLOGY 2014-10-30 07:00:0016.3[facility] NzsdspeFPMERAPPGT6409-79-13 07:00:66178Wfktcqzn MvgsratDUIWYSMDPK4622-61-08 07:00:008.4[facility] VkqfdgtNCRDRSVRSH3380-91-90 07:00:009.1[facility] NvsrlqyOLCAXBIMAO5516-35-22 07:00:0033.0[facility] YLXFPOQWRL6072-29-08 07:00:003.09[facility] CxzcsqwHTZRKCDWDG9715-46-85 07:00:00 11.8[facility] WdxivqxZBESAQUNFC5147-85-17 07:00:0089.0[facility] HermannHEMATOLOGY 2014-10-30 07:00:00 Test Item Value Reference Range Interpretation Comments PT (test code = PT) 13.5 s 12.0-14.7 [facility] JumwwhvYPUUFJDSGK2676-00-06 07:00:001.03[facility]annHEMATOLOGY 2014-10-30 07:00:00 Test Item Value Reference Range Interpretation Comments PTT (test code = PTT) 31.6 s 22.9-35.8 [facility] HermannPARATHYROID ULAMKUB8906-80-18 07:00:001.10[facility] PARATHYROID FANPDJB2675-77-59 07:00:001.11[facility] HermannCARDIAC ENZYMES 2014-10-30 05:00:0049[facility]annCARDIAC ZMTMXRH6467-02-61 05:00:00<0.010 [facility]annCARDIAC QRMMRPG7718-56-69 05:00:000.02[facility]annHEMATOLOGY 2014-10-30 05:00:000.2[facility] UkdxwvhSQGJMOCAZN5355-79-24 05:00:000.3[facility] UjfuieoWXAPZBJJRS8195-12-62 05:00:000.4[facility] OxoxsssLDVVRRVTUV3826-03-66 05:00:003.2[facility] OafkorcENVASQTPMC9648-47-23 05:00:002.3[facility] DMBDGACDGP2178-44-86 05:00:004.8[facility] AuyxnnnSHZNWVFTKT6727-03-28 05:00:003.1 [facility] GckgbxhGSJUCPWVAE6216-44-47 05:00:0053.2[facility] HermannHEMATOLOGY 2014-10-30 05:00:0038.5[facility] EenqovzJZZLLEIXNL8771-78-52 05:00:0014.9[facility] YyyajhpLKXXAWDKYM1448-09-02 05:00:0032.8[facility] UfdciebMCMEMOLVSL6583-81-07 05:00:00 Test Item Value Reference Range Interpretation Comments MCH (test code = MCH) 30.3 pg 27.0-31.0 [facility] OryualkFEYROUYNTZ0677-89-22 05:00:0092.2[facility] HermannHEMATOLOGY 2014-10-30 05:00:0016.3[facility] BpoouvzYUUTOOHNIJ0726-64-88 05:00:004.9[facility] LzwnsyfLHGNZFIWNK0085-16-09 05:00:001.61[facility] VkmohezAHSSFUNDAC0809-54-61 05:00:006.0[facility] ZtbcldoBWSTOYTDOB7938-74-88 05:00:008.1[facility] BQSZRCYGWX2236-43-38 05:00:0073[facility] HermannPARATHYROID ELBKAYU8597-26-98 05:00:000.63[facility] HermannPARATHYROID QUCYHQA0347-29-07 05:00:000.62[facility] HermannCARDIAC CFGUYAP6430-97-79 23:18:00<0.02[facility] HermannCARDIAC ENZYMES 2014-10-29 23:18:00<0.010[facility]annCARDIAC XJUBJMJ8510-00-60 23:18:0083 [facility]annCARDIAC VUTKMIF9615-64-31 23:18:000.7[facility]annCARDIAC MWUAQDS9558-41-83 23:18:000.6[facility] PnafkycWRFKQUBROD5382-11-07 21:45:504284 [facility] GopxsntWTSNEUSRNG9540-94-91 21:45:0023.9[facility] HermannCHEM PANEL 2014-10-29 10:42:000.7[facility] HermannCHEM XJGVT5620-20-02 07:00:001.8[facility] HermannCHEM MZIXE2497-75-39 07:00:002.8[facility] BfjteykFJSWSMRELLHA2399-58-83 07:00:0011.0[facility] JcaleqnBZGVYVHXIBNS3610-26-67 07:00:0010[facility] BXFMBTYXGQEL4590-64-93 07:00:0083[facility] NnraaxsKAYRRWBRNBVW9519-17-58 07:00:00 145[facility] TafglpaBFGEGVJXGVPF7151-43-95 07:00:000.7[facility] NMXOTWQXCIQR3887-90-21 07:00:76278Dxytyorf KajlipqNYKZDCWCNJKE1590-93-56 07:00:0024[facility] KfgaknjFOZZHQPGKBNJ5814-23-85 07:00:007.9[facility] PQDMOPPPVJNK4080-96-46 07:00:79511Tafloimj CsztexnVMMJQXBYOXRH2236-51-11 07:00:004.0[facility] YxrejtbSVIPEOBYDT8904-78-18 07:00:000.1[facility] EMTGAWNBBS0997-09-25 13:36:009.7[facility] VprgoojYLDUDQBEQT2892-34-20 11:00:00 Test Item Value Reference Range Interpretation Comments Pat Od Value (test code = Pat Od 0.046 1 Value) [facility] SkuwpotPLISHWWDDO6545-39-24 11:00:00 Test Item Value Reference Range Interpretation Comments Pos CO Value (test code = Pos CO 0.392 1 Value) [facility] IgqdpaeTNNSVEBAAL1355-49-04 11:00:00Negative (10/28/14 6:00 AM)[facility] HermannCHEM LYMFM8638-01-96 15:45:001.0[facility] WdliftvLFJQATMZZX1337-02-86 11:00:0024.4[facility] HermannTHYROID TYWAM1732-93-73 11:00:000.120[facility] HermannTHYROID OADJN5160-03-78 11:00:000.96[facility] HermannCHEM WDDEI2175-32-44 07:00:001.6[facility] MmhufwzIODIWWVHFQ1701-29-55 07:00:00Normal (10/27/14 2:00 AM) [facility] BpuifqwRFCGHLJXVX5221-45-91 07:00:00Normal (10/27/14 2:00 AM)[facility] WmcggbkSPEUARMVHC4494-32-63 01:49:0028[facility] RsqwowiBHGZRMXVOX6613-88-17 23:06:00<0.1[facility] IvsewtxRDVDYYUQJP0512-76-13 23:00:00<0.1[facility] HermannBLOOD BANK HGABTOL7072-00-78 21:24:00Negative (10/26/14 4:24 PM)[facility] HermannCHEM MNLGK1100-31-70 21:14:0070[facility] HermannCHEM MOWZU1508-38-98 21:14:000.15[facility] LiniozeUJPXJCMKOH4234-04-65 21:14:34592Cwcdhzso Sharon DKAZMURFPH2233-07-33 21:14:000.21[facility] VjarteeAXIMAGDWSY3537-74-60 21:14:00 29.2[facility] HermannCARDIAC YOPLUFJ7939-75-94 18:30:00<0.010[facility] CARDIAC XYESGDI7605-57-27 18:30:000.02[facility] HermannCHEM MQPCT7784-51-96 18:30:000.14[facility] HmkneinHWVSDAZLBK8967-81-29 18:30:00Normal (10/26/14 1:30 PM)[facility] KaxsiwoENPKUYYNAO5963-43-84 18:30:00Normal (10/26/14 1:30 PM)[facility] DeghwgtRJGAZKRBTE5654-49-31 18:30:000.0[facility] PimflfjOIGJKCTMPA5948-01-17 18:30:001.0[facility] HermannCHEM TPMPI9206-11-82 11:15:000.1[facility] HermannCHEM UKFUY5973-19-91 11:15:000.2[facility] HermannCHEM XJJTC7971-57-77 11:15:000.1 [facility] HermannCHEM QDBMQ7821-88-28 11:15:0011[facility] HermannCHEM PANEL 2014-10-26 11:15:98694Rykcsrma HermannCHEM LVWAO0078-66-58 11:15:002.9[facility] HermannCHEM HGCAN9629-32-94 11:15:003.2[facility] HermannCHEM NYLEK2426-58-34 11:15:006.1[facility] HermannCHEM FAXGG4141-27-19 11:15:0023[facility] HermannCHEM UDMCA6527-08-24 11:15:000.9[facility] QokcnrjZSFPIQSKOE4269-60-97 11:15:000.1 [facility] HermannCHEM HSHMU6667-51-96 09:01:000.05[facility] HermannDRUG SCREEN 2014-10-26 06:40:00Negative (10/26/14 1:40 AM)[facility]annDRUG SCREEN 2014-10-26 06:40:00Negative (10/26/14 1:40 AM)[facility]annDRUG SCREEN 2014-10-26 06:40:00Negative (10/26/14 1:40 AM)[facility]annDRUG SCREEN 2014-10-26 06:40:00Positive *ABN*(10/26/14 1:40 AM)[facility]annDRUG SCREEN 2014-10-26 06:40:00Negative (10/26/14 1:40 AM)[facility]annDRUG SCREEN 2014-10-26 06:40:00See Note 8(10/26/14 1:40 AM)[facility]annDRUG SCREEN 2014-10-26 06:40:00Negative (10/26/14 1:40 AM)[facility] HermannDRUG SCREEN 2014-10-26 06:40:00Negative (10/26/14 1:40 AM)[facility]annURINE AND STOOL 2014-10-26 06:40:00Negative (10/26/14 1:40 AM)[facility]annUR[facility] AND STOOL 2014-10-26 06:40:00Negative (10/26/14 1:40 AM)[facility]UR[facility] AND STOOL 2014-10-26 06:40:00Negative (10/26/14 1:40 AM)[facility]UR[facility] AND STOOL 2014-10-26 06:40:005[facility]annURINE AND KRQXJ7376-99-91 06:40:0028[facility]annUR[facility] AND WXSEN7561-78-73 06:40:00Negative (10/26/14 1:40 AM)[facility]UR[facility] UMSVN3299-54-97 06:40:00Negative (10/26/14 1:40 AM)[facility] ZRAJM5196-51-19 06:40:00Negative (10/26/14 1:40 AM)[facility] ZYMFR8644-15-87 06:40:00<=1.0[facility]annURINE AND STOOL 2014-10-26 06:40:00Negative (10/26/14 1:40 AM)[facility]UR[facility] STOOL 2014-10-26 06:40:001.009[facility]annUR[facility] AND RCDKN2062-02-58 06:40:00Slight *ABN*(10/26/14 1:40 AM)[facility]UR[facility] AND CUSUC5285-66-62 06:40:00Yellow (10/26/14 1:40 AM)[facility]annUR[facility] AND YJDKW3100-24-00 06:40:005.0[facility] YklpfocTYWNIMMADO3685-76-49 02:45:00 Test Item Value Reference Range Interpretation Comments Angle (test code = Angle) 76.5 degrees 53.0-72.0 [facility] JpuuxksKLSXSPRLGZ8478-84-61 02:45:00 Test Item Value Reference Range Interpretation Comments Max Amp (test code = Max Amp) 74.1 mm 50.0-70.0 [facility] UydrgkcBCNVPLMRWY9420-58-75 02:45:0014.3[facility] HermannHEMATOLOGY 2014-10-26 02:45:00See Note 23(10/25/14 9:45 PM)[facility]annHEMATOLOGY 2014-10-26 02:45:003.4[facility] CkyedbtFOTINWKSOX9286-22-75 02:45:00 Test Item Value Reference Range Interpretation Comments K-time (test code = K-time) 1.0 min 1.0-3.0 [facility] NwubvwuDBZLMSVTWP0947-74-46 02:45:00 Test Item Value Reference Range Interpretation Comments R-time (test code = R-time) 5.1 min 5.0-10.0 [facility] ZcmagrtPXADKBSXCM9689-24-04 02:45:000.9[facility] ClcuaeeYPOFPY6191-17-17 02:45:0035[facility] NrkrztdLQOMNK8899-50-72 02:45:0060[facility] HermannLIPIDS 2014-10-26 02:45:002.76[facility] UxdcqjpLPRJCG4382-75-10 02:45:0054[facility] SalgoymIZUTQS1477-69-27 02:45:06854Apfflmen MxqpumzDJPLAX6030-39-69 02:45:36903 [facility]annSPECIAL EIHJAZREN6146-59-61 02:45:005.7[facility] HermannCHEM OKSBH4111-68-68 09:44:003.7[facility] HermannCHEM JPJPO2588-41-69 09:44:001.7 [facility] ObbvazvEBFFEPYNIDKP1724-24-73 09:44:0013.6[facility] HermannELECTROLYTES 2013-11-14 09:44:0087[facility] XvbjvznTGMRAEWPILZU9814-90-77 09:44:0023[facility] MjzlkdoQTXNNAPEMTYL6136-38-12 09:44:0070[facility] KzzqpwoZVVNHITABORB3663-79-85 09:44:000.8[facility] BnamwmrGWSBMQFNKRTD4143-69-28 09:44:01104Kkypvsmp Cabrera HTZCUCWGZPJB0371-26-48 09:44:004.6[facility] PyqrvqvPCIEFTYURBTM6099-62-48 09:44:34752Zsdqojgp TyngstlFUPJEUQRZSGY8806-92-17 09:44:0024[facility] JUDHHFRAFWBT7119-89-99 09:44:008.8[facility] BbibqjfGRMVTTXQDV7140-34-66 09:44:00 1.97[facility] GxwozlvPEQFFYCIZF6016-66-89 09:44:00 Test Item Value Reference Range Interpretation Comments PT (test code = PT) 22.1 s 12.0-14.7 [facility] PokjyiwDBWYMX3653-96-42 09:44:0093[facility] VwsgmltXFAZHR8543-79-13 09:44:0066[facility] CckjgytXDORWS3486-78-08 09:44:12125Dplgixuk HermannLIPIDS 2013-11-14 09:44:28062Dglbgsje QjaqyqxNKAXZT3177-12-18 09:44:0038[facility] UrekeirABWMOG1056-78-23 09:44:005.18[facility] HermannDRUG IOBAHI5779-40-47 01:09:21Positive *ABN*(11/13/2013 20:09:21 Chika/Basile)[facility]annDRUG ONIPXE0180-30-45 01:09:21See Note 5(11/13/2013 20:09:21 Chika/Basile)[facility]annDRUG ZIQACX4633-70-24 01:09:21Negative *NA*(11/13/2013 20:09:21 Chika/Basile)[facility]annDRUG CKFQDK1734-94-22 01:09:21Positive *ABN*(11/13/2013 20:09:21 Chika/Basile)[facility]annDRUG MRRFMO7534-17-94 01:09:21Positive *ABN*(11/13/2013 20:09:21 Chika/Basile)[facility]annDRUG WPPCST9795-22-31 01:09:21Negative *NA*(11/13/2013 20:09:21 Chika/Basile) [facility]annDRUG JHPZYB7865-13-38 01:09:21Negative *NA*(11/13/2013 20:09:21 Chika/Basile)[facility]annDRUG QDDFLP2444-22-98 01:09:21Negative *NA*(11/13/2013 20:09:21 Chika/Basile)[facility]annDRUG XWWONZ3945-28-98 01:09:21Negative *NA*(11/13/2013 20:09:21 Chika/Basile)[facility]annDRUG OEJTFC5714-97-32 01:09:21Negative *NA*(11/13/2013 20:09:21 Chika/Basile) [facility]annUR[facility] AND TXDWU3381-78-00 01:09:002[facility]annURINE AND PWNUZ3612-31-55 01:09:00Slight *ABN*(11/13/2013 20:09:00 Chika/Basile) [facility]UR[facility] AND TZEZU5011-77-09 01:09:00Yellow *NA*(11/13/2013 20:09:00 Chika/Basile)[facility]UR[facility] AND YAYYC6186-12-13 01:09:006.5 [facility]UR[facility] AND SDNDJ7211-85-10 01:09:001.024[facility]annUR[facility] AND ARWDB8009-00-66 01:09:00Negative (11/13/2013 20:09:00 Chika/Basile)[facility]UR[facility] AND IQGZM1534-06-47 01:09:00Negative *NA*(11/13/2013 20:09:00 Chika/Basile)[facility]UR[facility] AND QKGIK7467-92-10 01:09:00Small *ABN*(11/13/2013 20:09:00 Chika/Basile)[facility]UR[facility] STOOL 2013-11-14 01:09:00Negative (11/13/2013 20:09:00 Chika/Basile)[facility]annUR[facility] AND NWXPA2422-05-56 01:09:003[facility]annURINE AND STOOL 2013-11-14 01:09:001[facility]annURINE RCCM5642-06-20 01:09:00Negative (11/13/2013 20:09:00 Chika/Basile)[facility]annCARDIAC CHVFCGU3003-18-74 19:43:00<0.010[facility] HermannCARDIAC SPYZPUF1758-76-91 19:43:00<0.02 [facility] HermannCARDIAC ARSGHAJ4862-98-70 19:43:94351Jexgwtdl HermannCARDIAC XYWMNTJ9993-93-73 19:43:000.5[facility] HermannCARDIAC UXJGMEY5814-19-70 19:43:00 0.5[facility] HermannCHEM WJIDS5509-39-57 19:43:000.1[facility] HermannCHEM PANEL 2013-11-13 19:43:000.2[facility] HermannCHEM MDROE4491-84-15 19:43:000.1[facility] HermannCHEM MVBKZ7883-07-76 19:43:0024[facility] HermannCHEM WYQNT3711-11-50 19:43:000.9[facility] HermannCHEM ZTRPR5094-80-10 19:43:0040[facility] HermannCHEM UEQMA1391-39-07 19:43:006.4[facility] HermannCHEM MSYNW4255-63-42 19:43:003.0 [facility] HermannCHEM KGGWJ3227-51-40 19:43:003.4[facility] HermannCHEM PANEL 2013-11-13 19:43:57223Clmjagkb HermannSPECIAL SGTUTCFGT6332-95-97 19:43:005.0 [facility]annCARDIAC WAYOGUM5213-24-30 09:29:000.6[facility] HermannCARDIAC FBPXYHT3184-45-87 09:29:00<0.02[facility] HermannCARDIAC LYCHPIK6119-00-19 09:29:000.6[facility] HermannCARDIAC XHVANWS4786-31-42 09:29:42268Pdsyhyzu [facility] CHEM ROGQU2924-03-96 09:29:0075[facility] HermannCHEM HLMGJ0524-69-54 09:29:0013.1 [facility] HermannCHEM TTWGY3645-62-06 09:29:0026[facility] HermannCHEM PANEL 2013-11-13 09:29:38580Yezriwrv HermannCHEM NELVA5303-93-77 09:29:008.6[facility] HermannCHEM FAWQF4163-57-84 09:29:000.9[facility] HermannCHEM HJECY8166-29-84 09:29:0012[facility] HermannCHEM KXTOJ7658-40-52 09:29:004.1[facility] HermannCHEM ONGDD8057-64-76 09:29:57482Ygyzuhhu HermannCHEM CAKKR2858-45-57 09:29:0081 [facility] EibnhjmYVLLUKSOIO0401-10-87 09:29:004.1[facility] HermannHEMATOLOGY 2013-11-13 09:29:001.4[facility] UapamfxZTTTORPOQP8108-92-22 09:29:000.0[facility] HtnkvokJRJCJIGJTQ1411-33-40 09:29:004.7[facility] NgfuqseLFGMUIRVFG5772-08-81 09:29:006.0[facility] FjdopuwIUFUNBKRSG1976-91-31 09:29:000.5[facility] EUJJNWVTQX5740-96-83 09:29:0041.0[facility] AsrtgatFPNSODHCPZ5656-39-32 09:29:00 53.5[facility] GxlljcoQUQDPPKPGO1174-75-37 09:29:000.2[facility] HermannHEMATOLOGY 2013-11-13 09:29:000.0[facility] XdwwtjeGBOCGCUIWZ8816-25-64 09:29:00 Test Item Value Reference Range Interpretation Comments PT (test code = PT) 24.2 s 12.0-14.7 [facility] MhidqacDAWKEOVVXJ3910-40-40 09:29:002.22[facility] HermannHEMATOLOGY 2013-11-13 09:29:00 Test Item Value Reference Range Interpretation Comments PTT (test code = PTT) 39.1 s 22.9-35.8 [facility] XxourduREFLUQDOQK4259-05-18 09:29:37615Wmpjsodr HermannHEMATOLOGY 2013-11-13 09:29:0017.1[facility] HfbdscoPARPBFCVKM5235-42-97 09:29:007.0[facility] HdovgptFJUWKCVEEW0528-42-90 09:29:0033.7[facility] RtwzmurVRDONQUMCD6453-38-53 09:29:00 Test Item Value Reference Range Interpretation Comments MCH (test code = MCH) 28.2 pg 27.0-31.0 [facility] LgojpfmTWXWTYMNGB6178-17-58 09:29:004.35[facility] HermannHEMATOLOGY 2013-11-13 09:29:0011.4[facility] ImfztacLWBNTVMYPE5236-86-61 09:29:0083.7[facility] XozissxTMWKNIFKYI3704-51-70 09:29:0012.3[facility] RawxnkaKIUOPOCAMQ4702-51-40 09:29:0036.4[facility] CylmfbrSAVTOWNCA6968-87-41 07:35:0015.8[facility] JNBNRWREM6285-66-85 07:35:94145Nghpnumf CptlxueGEMVPCHLI9573-53-55 07:35:0023 [facility] AuqgxkhZNKOXXOSW8963-66-59 07:35:39527Ztngduuu HermannCHEMISTRY 2013-05-12 07:35:000.3[facility] PaxkbmqTYELIOYDO7850-20-26 07:35:007.7[facility] XlawrhuXGHECLKAN2157-13-98 07:35:005[facility] ZhuyoxjQNMSCPUAM1478-07-52 07:35:00 72[facility] RrwpsqzOCJCITVVF6322-58-35 07:35:63187Fbmrcnyo HermannCHEMISTRY 2013-05-12 07:35:003.8[facility] RqaomlaMRJPYIIPAN4292-88-20 07:35:007.8[facility] SbhmortZFHOJWQEVX5726-51-87 07:35:003.5[facility] CzktuhfYODXFISRZO5956-88-26 07:35:000.9[facility] FpmfpzkDJZTXGLEQE3789-94-13 07:35:000.3[facility] XMMXUBMEKN1491-06-32 07:35:000.1[facility] UpnjzfjDTIAJPVIHS5138-39-56 07:35:007.4 [facility] CvcnltlCCORNRYRIA1281-97-91 07:35:000.7[facility] HermannHEMATOLOGY 2013-05-12 07:35:0027.8[facility] BwxipgqCBXUGFZWHM5733-07-83 07:35:002.7[facility] DplmahbKLXKVZCXTK8145-12-90 07:35:0061.4[facility] FnpztmhOLQWUUVMND1397-80-46 07:35:0088.5[facility] UzoxbzgORRKIRCJAE8515-87-10 07:35:0015.2[facility] KKELTJWIRL0521-92-92 07:35:0032.5[facility] OaspnjoWIUXKDJUDE1959-21-88 07:35:00 252[facility] FmjbkxmTPNVRIYBXB2033-51-23 07:35:007.7[facility] HermannHEMATOLOGY 2013-05-12 07:35:0012.8[facility] YorchxtFYZOQOFISN4422-42-39 07:35:003.82[facility] YhwwbtaKJXAEMADLF3348-29-42 07:35:0011.0[facility] MyssghqXDQUAEKBEZ9854-18-27 07:35:0033.8[facility] FhxswyhZOOIWMKFPE3617-26-75 07:35:00 Test Item Value Reference Range Interpretation Comments MCH (test code = MCH) 28.8 pg 27.0-31.[address] [facility]SE LWGFMWD1492-15-77 11:52:0089[facility] MQHTOLTCX3974-75-31 07:00:00Negative (05/11/2013 02:00:00)[facility] PNBFGJIMK0182-45-52 07:00:00Negative (05/11/2013 02:00:00)[facility] UCEAEMORE8308-39-22 07:00:00Negative (05/11/2013 02:00:00)[facility] AZXTALUUY3190-45-80 07:00:00Negative (05/11/2013 02:00:00)[facility] KNWLEKNTV4736-31-59 07:00:00Positive *ABN*(05/11/2013 02:00:00)[facility] NMVXAZBQO7034-89-27 07:00:00See Note 12(05/11/2013 02:00:00)[facility] EHQSYJUTU5488-66-70 07:00:00Negative (05/11/2013 02:00:00)[facility] QVEKXNDOU5823-14-51 07:00:00Negative (05/11/2013 02:00:00)[facility] KUWUKIDOL3287-45-20 07:00:00Negative (05/11/2013 02:00:00)[facility] UPBKUFLQU9961-13-84 07:00:00Negative (05/11/2013 02:00:00)[facility] LDKOJGQPA6477-21-38 07:00:001.09[facility] VliwocfSDIEFVFDO8282-24-16 07:00:001.07 [facility] NooymvwCOGKREMJM4451-35-72 07:00:002.0[facility] HermannCHEMISTRY 2013-05-11 07:00:002.6[facility] QgqblqcSBHRIHAHA1313-20-06 07:00:91868Vnwdcaop QdpfjuyZZJPPZHQF3776-81-88 07:00:008.0[facility] SyqohixDNJZZRMRZ7433-68-47 07:00:0017.7[facility] KyiqkiiMISZBYBBW0923-98-84 07:00:007[facility] MQHHLYZIE3619-65-60 07:00:0059[facility] RbhgvljGRMMXFGSM4605-05-60 07:00:000.6 [facility] YfrkunvQULZZKHUJ7660-88-74 07:00:21300Ybihvfjk HermannCHEMISTRY 2013-05-11 07:00:003.7[facility] YvibpzyEBCPFZEFW3399-26-60 07:00:32981Gaikzdrs YyesbmcFFOXFGRXQ6208-12-01 07:00:0021[facility] OpbzewtKPNBQPQQM9604-59-57 07:00:00See Note 13(05/11/2013 02:00:00)[facility] KapxlrpGGMAPCNEZY7026-85-17 07:00:0017.2[facility] HqraxajPKGIOCISWL6091-25-50 07:00:23726Aujqmzbl [facility] YVHXBEZUTY8265-86-49 07:00:008.7[facility] XecexmiVJHIVKZODZ7638-57-14 07:00:00 88.4[facility] YujxqdfZMJWCRTAZY3703-13-52 07:00:00 Test Item Value Reference Range Interpretation Comments MCH (test code = MCH) 29.4 pg 27.0-31.0 N [facility] SdoxhdtLAWPODPRNY2216-77-48 07:00:0015.3[facility] HermannHEMATOLOGY 2013-05-11 07:00:0033.2[facility] UkpuevsCXHBZCNVPR5984-97-91 07:00:003.75[facility] GlxrthgZGARIYPVJE0477-90-17 07:00:0011.0[facility] WwayunmWUHGGYUEVX4305-90-46 07:00:0033.1[facility] QwucobyKDJJFUTSHQ0524-30-78 07:00:004.4[facility] QLFMWSAHIF9858-42-10 07:00:0077.7[facility] TzvypuqIJLFGQZAYM7317-56-74 07:00:00 0.8[facility] LlzkfhoIDXYGEMWNZ9891-72-80 07:00:0013.4[facility] HermannHEMATOLOGY 2013-05-11 07:00:002.7[facility] AsnjupxHVBUQPSDOM4462-56-76 07:00:000.8[facility] TkfhneqYOOXKPPYHB4340-28-49 07:00:001.5[facility] WuxmpcoMHOWSULCMO4694-11-43 07:00:0015.6[facility] DrrueynTZMDTUTXXG9223-08-28 07:00:000.1[facility] IZTVJZYPJF3844-85-69 07:00:000.3[facility] HermannBEDSIDE GLUCOSE TESTING 2013-05-11 04:53:0079[facility] FbvtjdbHBJAUJUSVW4182-87-24 23:12:20231Mkyhxcrh YclznwtYNGEGEEZKA1572-96-33 23:12:00Positive (05/10/2013 18:12:00)[facility] DvpewrzHWQHDYNVDZ8584-07-83 23:12:001.06[facility] ExfdwjvYNBKZOKDRY0971-70-62 23:12:0070[facility] HtgfcotZZDWOVHNQX0870-69-69 23:12:00>100 mm/hr *ABN*(05/10/2013 18:12:00)[facility] EovifzhOIZURWLMZD3648-47-31 23:12:0035 [facility] WnjqslaWBPSRECMZI0532-11-93 23:12:0068[facility] HermannIMMUNOLOGY 2013-05-10 23:12:001[facility] MkarwbhYBUTKCSFOD2093-66-36 23:12:001[facility] PhwlcmjRTGCRFOMQK0471-41-62 23:12:005.2[facility] XjtbrirGZODAARTKJ4722-76-14 23:12:0040[facility] SvzzmfaPZOXMOPPQO8152-73-61 23:12:75074Kbwfvrsc [facility] PIPVOPLIJG4017-12-72 23:12:00Negative *NA*(05/10/2013 18:12:00)[facility] CPNWSIRNLU6853-21-30 23:12:00>190.0[facility] HermannBACTERIAL - SEROLOGY 2013-05-10 21:41:00Negative (05/10/2013 16:41:00)[facility] HermannMICRO MISC - AKISRSTL6075-05-25 21:41:00Negative 1(05/10/2013 16:41:00)[facility] BEDSIDE GLUCOSE UWYQBDF5968-66-27 16:57:0096[facility] BltykmhUKNRCXPBPP8771-44-49 14:50:398[facility] VyaxnesJZQBBZDLRU5881-05-08 14:50:39Few /LPF *NA*(05/10/2013 09:50:39)[facility] AcptkqcSRYBQUHJLR3258-11-15 14:50:39<1[facility] IHMVMQNBVD2783-11-65 14:50:39Few /LPF *NA*(05/10/2013 09:50:39)[facility] JQVDJXFKAR4438-23-66 14:50:39<1[facility] IpkbwrvRDXTOELCST9444-33-58 14:50:39 Negative (05/10/2013 09:50:39)[facility] NsiqggkNLDWWEHDAW4345-65-12 14:50:39 Negative (05/10/2013 09:50:39)[facility] KvvvuujJZXVCQVYIC8686-51-19 14:50:39 Negative (05/10/2013 09:50:39)[facility] EgednogJDWJPXHICT4831-58-65 14:50:39 Negative mg/dL *NA*(05/10/2013 09:50:39)[facility] AmlecafHFKBKPVZDM5713-00-13 14:50:39Negative *NA*(05/10/2013 09:50:39)[facility] LzmwfbpPMSLWOUSAS0428-29-93 14:50:391.006[facility] HpauwbvKVJXTELHUM4058-14-28 14:50:39Clear (05/10/2013 09:50:39)[facility] UjlxwsvFHRXKWPMKS0339-31-31 14:50:39Light Yellow *NA*(05/10/2013 09:50:39)[facility] XfrvtqvQJGJXAXXIL4015-45-41 14:50:39Negative mg/dL (05/10/2013 09:50:39)[facility] CktrcbjKYJBVKCBSY4361-60-33 14:50:397.5 [facility] XsxzikuVIKMNWWNE3235-64-54 07:52:0087[facility] HermannCHEMISTRY 2013-05-10 07:52:71322Hdzeynet OqdvmtkQNARJTOYB3372-99-46 07:52:0014.6[facility] XgvdxglNIEBNOJSF5354-49-98 07:52:007.8[facility] JddnrcjXQCUBSYSN7137-50-11 07:52:31996Wplsdjsq OfjjlivLDNZILDSF4648-21-24 07:52:003.6[facility] JLQUVPXIM6901-57-34 07:52:0024[facility] BtucvhtFYRTNODLS9210-84-94 07:52:000.8 [facility] UvnwbiiPXVXHKXND8819-06-01 07:52:007[facility] EpjsojvKRHEBECJV4750-17-94 07:52:0051[facility] WlkmasiCPREHBODS3121-06-59 07:52:001.6[facility] TWUZIAHDW3476-07-72 07:52:002.2[facility] XrggkrdTPAVSBXRCD2993-05-53 07:52:00 Test Item Value Reference Range Interpretation Comments MCH (test code = MCH) 29.1 pg 27.0-31.0 N [facility] ZnxyoolFINKWSOVEK7406-21-36 07:52:0033.8[facility]ann[facility]OLOGY 2013-05-10 07:52:0089.2[facility] YqkcbfpEXCDZCKGSF9046-57-14 07:52:0011.0[facility] PffomntODSWLDOMSN8261-55-64 07:52:008.5[facility] YyjrlcmQLQORSYGGY8422-78-83 07:52:86609Kxepjaqc FfgaxgcDJVGULHOFZ2728-69-36 07:52:0015.1[facility] HDNOJLEGHR9025-96-72 07:52:0032.6[facility] CamfxjhUOERVJFPVJ1023-99-78 07:52:00 3.79[facility] ByfvpueZJLBYCTZPT3434-16-51 07:52:0022.1[facility]ann[facility]MATOLOGY 2013-05-10 07:52:000.1[facility] KhldkvmCELISOUZVN7449-18-86 07:52:000.6[facility] ThmzsiiDMPAOWBFWH3059-49-52 07:52:000.2[facility] KavyupfIHQLEASGIH0316-87-80 07:52:0083.0[facility] PjjpysuBXAVBGBXXJ1951-47-75 07:52:002.9[facility] FKJAKDRJYQ3301-71-66 07:52:0018.3[facility] FrisvasXUNXWZDFQG7309-87-40 07:52:00 0.4[facility] BnuqdlxNITVPTNHBO2853-93-18 07:52:001.0[facility]annHEMATOLOGY 2013-05-10 07:52:0012.9[facility] UlmxndaPYYQQOXCOC8262-49-77 07:52:002.7[facility] QuasuzvUPJFSGGEKR3572-62-38 19:56:0055[facility] ZpngadpLOGEHFHQNQ6867-69-51 19:56:02860Tmicdglz AaqwpoyJAGFENDRYY0336-63-06 19:56:72577Fmgerdtr [facility] MJGDWAOCHF6702-69-16 19:56:00Negative (05/09/2013 14:56:00)[facility] BYMOZHDGST3886-53-50 19:56:00Negative (05/09/2013 14:56:00)[facility] LMAABFZNAO4855-64-34 19:56:00Negative (05/09/2013 14:56:00)[facility] KKBMBVOEYF0776-43-18 19:56:00>190.0 mg/L 15(05/09/2013 14:56:00)[facility] LxtxlvoNBBFFXZHMG6942-32-92 19:56:00Negative (05/09/2013 14:56:00)[facility] KkrctoeTHPZBMAJLA0515-21-50 19:56:0034[facility] IivecykOLXJRSVFI3138-38-98 16:10:242.3[facility] PotxczcIWAABGFYJ2935-18-44 16:10:241.4[facility] FFZRWIOLC0628-18-25 16:10:191.8[facility] BrqbsrgVIPVWPKBD9313-59-79 10:34:0071 [facility] EtmtdtlRVSPIFBDI4008-23-89 10:34:0036[facility]annCHEMISTRY 2013-05-09 10:34:21299Wkrnlauu SjwcjavXQMCYWJKR7538-70-65 10:34:65141Bigesktj JchfoeyUURCOYWQP4769-49-08 10:34:003.67[facility] MfjdqpqSZZKPYZJU0134-13-19 10:34:004.9[facility] XbahczdNHWXOEQPX2577-50-56 00:11:00Negative *NA*(05/08/2013 19:11:00)[facility] GgqeecuPYQUQTQLN0156-13-20 00:11:00See Note 11(05/08/2013 19:11:00)[facility] CmxeupvRYVQFCZUE8081-75-14 00:11:00Positive *ABN*(05/08/2013 19:11:00)[facility] HzxwhbjEUUWROBRK0484-49-24 00:11:00Negative *NA*(05/08/2013 19:11:00)[facility] RpbgtyzNTFYZVOIC8180-39-70 00:11:00Negative *NA*(05/08/2013 19:11:00)[facility] LydbdjyYJACRACRS3434-62-45 00:11:00Negative *NA*(05/08/2013 19:11:00)[facility] CvmexmgYXGIFGCQJ0765-16-13 00:11:00Negative *NA*(05/08/2013 19:11:00)[facility] ZowespzSWMMWPIMU4841-75-75 00:11:00Negative *NA*(05/08/2013 19:11:00)[facility] DtcjhbyIQMPGVJAF5445-42-39 00:11:0054[facility]annCHEMISTRY 2013-05-09 00:11:005.8[facility] GojphrvSNPBSRFNH1471-41-01 00:11:000.2[facility] OgpbjgaBVBEBJMMS6722-80-98 00:11:002.8[facility] DvqdrbxKIASIPHOL6395-12-76 00:11:0095[facility] MykmcbwSPOKWKFRA1138-23-81 00:11:0029[facility] IWUZSOFHR6124-64-99 00:11:000.9[facility] OnormgyPFIDKGHUF1918-22-49 00:11:0015 [facility] TukhbjvNNWREIAOJ5301-23-80 00:11:003.0[facility]annURINALYSIS 2013-05-09 00:11:00Slight *ABN*(05/08/2013 19:11:00)[facility]ann[facility]INALYSIS 2013-05-09 00:11:001.013[facility] PipxmtwVRDWFXKTHF0935-34-13 00:11:00Small *ABN*(05/08/2013 19:11:00)[facility] CitlnchSCORXRJLOT5788-02-48 00:11:00Negative (05/08/2013 19:11:00)[facility] VuvizryMKUGTWLDOU3488-08-52 00:11:00Negative (05/08/2013 19:11:00)[facility] GvqbswkUWKPWKCACM0660-06-28 00:11:005.0[facility] WkunsltGBRAFQOKQC0401-35-90 00:11:0030 mg/dL *ABN*(05/08/2013 19:11:00)[facility] OshnsbqPWJGZRIKIX0735-97-10 00:11:00Negative mg/dL *NA*(05/08/2013 19:11:00) [facility] UyqdvsqFCOFHVNCOX1293-26-04 00:11:00Yellow *NA*(05/08/2013 19:11:00) [facility] XcrwgaiUXNXTXDLZO3908-80-69 00:11:00Few /LPF *NA*(05/08/2013 19:11:00) [facility] MscmdbjILUZDMPKDN7551-29-19 00:11:001[facility]annURINALYSIS 2013-05-09 00:11:00Negative mg/dL *NA*(05/08/2013 19:11:00)[facility] RJLHQQRVID5864-21-63 00:11:00Negative *NA*(05/08/2013 19:11:00)[facility] LLIRDNVTBO9160-33-20 00:11:00Few /LPF *NA*(05/08/2013 19:11:00)[facility] UENDXWTTVI0566-82-07 00:11:00Occasional /HPF *NA*(05/08/2013 19:11:00)[facility]annBEDSIDE GLUCOSE CPAKQPO6411-16-83 12:28:0087[facility]annCHEMISTRY 2012-07-21 08:53:10887Wkujshxk QkcjebtFTQDUGPEJ0382-15-73 08:53:0024[facility] FlgeyqjRHQUPTAXV9011-79-32 08:53:30194Xouxksys CgxgznbAKAHGRVCA8248-68-31 08:53:11665Kfijazzn FmgptxrMPCDUWOAO9175-78-70 08:53:008.08[facility] EXBXUDCOZ0651-83-35 08:53:003.2[facility] GnlwrcxAMQGCHNZO2647-38-51 08:53:001.9 [facility] UiwqsviAEIPXGHUD8180-85-00 08:53:0014.1[facility]annCHEMISTRY 2012-07-21 08:53:009[facility] HlrtxhnJFLUVOGCQ2459-52-93 08:53:0077[facility] LndbkwvVWVJGPDZO7267-12-64 08:53:30115Mwcgiubw GfffiqoEKJPGQUIV2776-77-93 08:53:70920Uxydqwzh EyfxaygCERAOHQTI1675-67-41 08:53:60013Laexwuyh [facility] BKWNLSETG9877-91-28 08:53:004.1[facility] AmbzllbEIZBODVVW8111-48-25 08:53:000.7 [facility] XclsvbkPMZMHIDBU8873-57-32 08:53:0027[facility]annCHEMISTRY 2012-07-21 08:53:008.0[facility] IdnyroxMPQBMYXOS3946-32-01 08:53:005.8[facility] CizxrqpACLQTXKFRP0701-60-14 08:53:006.8[facility] YsynttbUQOHCGMXVI8759-87-47 08:53:29761Nnoaudyn JgnlknhBRFKPLYHUL0370-95-97 08:53:0088.7[facility] OEQWRSXNKX1683-20-16 08:53:00 Test Item Value Reference Range Interpretation Comments MCH (test code = MCH) 29.4 pg 27.0-31.0 N [facility] IcyfjppKMXHWFTHRI4056-79-28 08:53:0033.1[facility] HermannHEMATOLOGY 2012-07-21 08:53:0015.0[facility] CddjrpyPARYBGZVJT9483-23-32 08:53:0038.4[facility] NdkfmzzBSHEJNPQFA2299-12-44 08:53:004.34[facility] YejflgqDVYFDCVJOQ4875-42-04 08:53:0012.7[facility] NhlovnhBRPNJYNFOI8612-40-89 08:53:0011.7[facility] VMXMTFUZWS0528-70-80 08:53:000.5[facility] DnblqrwUMWBXETWJK4980-60-49 08:53:005.9 [facility] JgppiqcUSARZLIQJM6595-82-69 08:53:006.0[facility]annHEMATOLOGY 2012-07-21 08:53:0041.5[facility] IaffxqbLGRECKEZUY1138-31-19 08:53:001.9[facility] FpjnfohHBWIPSLAHL2974-91-23 08:53:0050.1[facility] WpyvvcjJVVRSFWFHT9820-86-75 08:53:000.7[facility] KjvfppaONKXNMHPBR1480-09-02 08:53:004.8[facility] IZCXDWODGT9308-95-69 08:53:000.2[facility] QcfscmgVLSWOAFGOL5200-89-52 08:53:000.1 [facility] HermannBEDSIDE GLUCOSE SAUSJRE2641-21-88 02:50:39351Fmnrwned [facility] MXWJXYKXLE5973-29-09 01:10:00Yellow *NA*(07/20/2012 19:10:00)[facility] DGRBUFMXJG7944-20-34 01:10:0020 mg/dL *ABN*(07/20/2012 19:10:00)[facility] TMPGFUSEXJ7149-00-08 01:10:006.5[facility] PppdldkXSROYSMGQE2469-56-31 01:10:00 Negative mg/dL *NA*(07/20/2012 19:10:00)[facility] EwdvqtzIGVRHEJLSN7221-84-36 01:10:001.020[facility] NskugiwJQKGEJQVPG4622-58-05 01:10:00Slight *ABN*(07/20/2012 19:10:00)[facility] InkhsohXOOKAJLZTY6883-43-95 01:10:00Negative (07/20/2012 19:10:00)[facility] NorzhkhBESBWZASHL0623-81-13 01:10:00Trace *ABN*(07/20/2012 19:10:00)[facility] ApmdcswKQWJXVEEOA2182-05-65 01:10:00Many /LPF *ABN*(07/20/2012 19:10:00)[facility] OepolvwGPNWTWMMQQ6019-53-45 01:10:00Small *ABN*(07/20/2012 19:10:00)[facility] QowoibpZEIGAUSJDN5016-40-85 01:10:00Negative *NA*(07/20/2012 19:10:00)[facility] AwqlhhmLJFPXFMMCR7473-17-18 01:10:00Occasional /HPF *NA*(07/20/2012 19:10:00)[facility] DglvvpeSMOGHUPVNX8148-42-03 01:10:00Few /LPF *NA*(07/20/2012 19:10:00)[facility] VsbbgflBIPMDIEIXG6875-59-26 01:10:00Few /HPF *NA*(07/20/2012 19:10:00)[facility] YafhzrvOXTUPCQRNN5191-87-05 01:10:001 [facility] AnsvzwyHWAMEAETBT3001-38-59 01:10:006[facility]annURINALYSIS 2012-07-21 01:10:001[facility] HermannBEDSIDE GLUCOSE HWCPNAA8417-31-84 12:05:0086 [facility] HncdjgaPVCZMLVCC8232-22-68 08:50:0014.7[facility] HermannCHEMISTRY 2012-07-20 08:50:0088[facility] AicyeirJZDCDZDRL5642-17-36 08:50:0077[facility] AtxzvlpBMZTAHOAQ8571-42-20 08:50:0013[facility] XndkwrzDEUPFULFH0452-90-73 08:50:000.8[facility] BcgofzbWXVIOWPRO3418-38-06 08:50:35125Mvoppqdo [facility] PNKJEEWGD3726-80-88 08:50:003.7[facility] IvsxxfhIPDVLAIBL2238-12-97 08:50:0097 [facility] HlkvqqxYOYUOVVQO6055-42-17 08:50:0029[facility] HermannCHEMISTRY 2012-07-20 08:50:008.3[facility] FfqhshhXXPUZUQRNH9665-18-63 08:50:000.7[facility] SmqhthlIYDJZVNSJR5978-51-56 08:50:004.3[facility] WhgklpmPZEOCGYHHE5552-18-80 08:50:006.9[facility] CbukqktHWHWMKXCHI4351-66-53 08:50:000.8[facility] CQIDIRQXVO6530-40-90 08:50:001.2[facility] VimwqveIPRBZMYSVE2983-27-43 08:50:000.1 [facility] LeoqfnyPBFLAWYISF8493-12-20 08:50:000.1[facility] HermannHEMATOLOGY 2012-07-20 08:50:005.6[facility] TgqmkbuOPVZIISCNN2482-55-76 08:50:0035.7[facility] FjmhumqFZORMQVCWG2164-39-07 08:50:0056.7[facility] DpvvhksJSIDSPUAKG8951-52-81 08:50:0088.3[facility] AtkmivbVQCJLRMFNF2538-86-92 08:50:0041.1[facility] LMPPCCDTNS0178-92-23 08:50:0013.7[facility] KvksguuYPNWAEIDTG1923-85-87 08:50:00 4.66[facility] TyycdswSOXRTXNVDR3469-10-74 08:50:0012.2[facility]annHEMATOLOGY 2012-07-20 08:50:006.8[facility] YgjhnpuMNMVBLGJSF1775-50-26 08:50:52899Fjdgnqws PhefubkDGVXDGWNTW0868-80-50 08:50:0015.6[facility] OfftphaXHIXTVGRSJ8713-18-93 08:50:0033.3[facility] AwbvzvnGDHOYMBELL5003-89-07 08:50:00 Test Item Value Reference Range Interpretation Comments MCH (test code = MCH) 29.4 pg 27.0-31.[address] [facility] HermannBLOOD BANK LBATCRL1397-04-51 13:30:00Negative (07/19/2012 07:30:00)[facility] FguosefUYQVTJMCO1471-81-28 13:30:0062[facility] HermannCHEMISTRY 2012-07-19 13:30:0067[facility] WbleesrZGLCUJRHT0225-25-34 13:30:0030[facility] LsovwkrMHRTWVQLP0100-19-54 13:30:008.8[facility] VkhghmcCOEAXXQOL6172-17-37 13:30:0012[facility] PblzrhaJAJSPHVRG8813-31-65 13:30:001.0[facility] DEFYXIRWJ7963-99-81 13:30:35001Xfycykzl CrgfqfnOHUOKITYT0565-19-99 13:30:004.1 [facility] KxvvgloDSHFRQNWL4454-05-06 13:30:0099[facility] HermannCHEMISTRY 2012-07-19 13:30:23450Yjzuzzxh IeehwleILMZSEEXA2766-43-86 13:30:0013.1[facility] JbfsajlGUOQWPCRP8370-53-36 13:30:00<0.02[facility] IpuvzpjCNJJWFTFHH6498-72-58 13:30:001+ *ABN*(07/19/2012 07:30:00)[facility] BkzcsamZEBHWGODCT3858-68-82 13:30:000.0[facility] NardiqxHOMWMTFEUY3050-62-92 13:30:00Slight *ABN*(07/19/2012 07:30:00)[facility] OmwthoyQEGKUUYGHA6032-96-76 13:30:00Slight (07/19/2012 07:30:00)[facility] XdhlzirZQHOUNCDUC4485-39-00 13:30:000.0[facility] GHVTLWQKBI1886-63-34 13:30:004.0[facility] UqbydcmTXTJUKRESB9777-05-83 13:30:00 30.0[facility] KlpvppiAESORWJCSF9993-72-54 13:30:001.0[facility] HermannHEMATOLOGY 2012-07-19 13:30:005.4[facility] CrwxchlJPKIPRQBVS4383-54-99 13:30:0011.8[facility] AlzkkchUDDDWMSTYT0551-88-35 13:30:000.2[facility] SymxialQALOPQLCKC8906-20-00 13:30:000.7[facility] VrfwxlvMJCXRWSEVC1904-10-64 13:30:0065.0[facility] VZERWBIOER3295-61-33 13:30:000.97[facility] TzmrxguQMIKWYQCUX7693-54-01 13:30:00 Test Item Value Reference Range Interpretation Comments PT (test code = PT) 13.1 s 12.0-14.7 N [facility] CenterNpilhevPSUYCEWHHZ5165-40-91 13:30:004.1[facility]annHEMATOLOGY 2012-07-19 13:30:00 Test Item Value Reference Range Interpretation Comments ACT (TEG) (test code = ACT (TEG)) 113 s 86-118 N [facility] CenterQwcdwcfQEVYFZGJKZ9235-09-09 13:30:00 Test Item Value Reference Range Interpretation Comments Split Point (test code = Split Point) 0.6 min [facility] CenterAlrozbuEGEYJGOUUK9445-47-62 13:30:00 Test Item Value Reference Range Interpretation Comments Angle (test code = Angle) 82 degrees 64-80 H [facility] CenterWqgzrnhJQWHSRKJGU2967-12-38 13:30:00 Test Item Value Reference Range Interpretation Comments Max Amp (test code = Max Amp) 81 mm 52-71 H [facility] CenterNunbpedFZMRSHHSDK6156-50-48 13:30:00 Test Item Value Reference Range Interpretation Comments K-time (test code = K-time) 0.8 min 0.6-2.3 N [facility] UryfsvfLLVFSILTBX6699-52-38 13:30:0020.9[facility]annHEMATOLOGY 2012-07-19 13:30:00 Test Item Value Reference Range Interpretation Comments R-time (test code = R-time) 0.7 min 0.4-0.7 N [facility] CenterWsyatsyFAFBKSQYUL3675-66-70 13:30:00 Test Item Value Reference Range Interpretation Comments PTT (test code = PTT) 32.1 s 22.9-35.8 N [facility] CenterFhuugyuMNIEWLPCIH4904-16-83 13:30:0015.0Memsrial HermannHEMATOLOGY 2012-07-19 13:30:005.06[facility] GjsmwksEAXOIXVJZL9703-81-85 13:30:0014.8[facility] VrecsokFUNRDREDFC9600-25-00 13:30:0033.3[facility] CrzhystEOVAASZTKG4722-45-42 13:30:0018.1[facility] XyvonvrXKPBREEDAI4855-16-73 13:30:0044.9[facility] ZZDJSVNMYZ3678-84-93 13:30:007.1[facility] BdvdeozUCBOJZRYSB2285-74-58 13:30:00 Test Item Value Reference Range Interpretation Comments MCH (test code = MCH) 29.5 pg 27.0-31.0 N [facility] CenterUckbunrFTMMRABGTY3055-11-60 13:30:0088.8Memsrial HermannHEMATOLOGY 2012-07-19 13:30:54022Fhdtjjpl [facility]
--- OUTSIDE RECORDS SUMMARY | 2020-04-17 23:43 | XMS REPORT | Summary of Care ---
:1965 Author Organization [facility] Address [address] [place] [address] Care Team Providers Name Role Phone James Burton Primary Care Provider Encounter Details Date Type Department Care Team Description 01/17/2020 Orders Only [facility] Unass[facility], No [address] [facility] [place] [address] [address] [place] [address] Allergies Active Allergy Reactions Severity Noted Date Comments Prochlorperazine Edisylate Nausea and/or 08/21/2005 Vomiting Divalproex Sodium Anxiety 08/21/2005 Gabapentin Unknown - See 01/02/2008 Blurred vision comments Nsaids (Non-Steroidal Nausea and/or 06/15/2015 Anti-Inflammatory Drug) Vomiting Butorphanol Tartrate Rash 08/21/2005 Ketorolac Tromethamine Rash 08/21/2005 documented as of this encounter (statuses as of 02/07/2020) Medications Medication Sig Dispensed Refills Start Date End Date Status atorvastatin 80 mg Take 1 tablet by 30 tablet 3 09/03/2019 Active tabletIndications: mouth at bedtime. S/P CABG (coronary artery bypass graft), Coronary artery disease involving [place] coronary artery of [place] heart with angina pectoris LORazepam 2 mg [...] daily. colchicine 0.6 mg Take 1 capsule by 60 capsule 0 11/07/2019 Active CapIndications: mouth 2 (two) Pericardial effusion times daily. furosemide 40 mg Take 1 tablet by 30 tablet 2 11/07/2019 Active tabletIndications: mouth as needed Coronary artery (Daily PRN based disease involving on leg swelling [place] coronary and body weight) artery of [place] for up to 30 heart with angina doses. pectoris, NSTEMI (non-ST elevated myocardial infarction) KCL 20 mEq Take 1 tablet by 30 tablet 2 11/07/2019 A ctive tabletIndications: mouth as needed Coronary artery (Recommend to take disease involving KCL if taking [place] coronary lasix.) for up to artery of [place] 30 doses. heart with angina pectoris, NSTEMI [...] as of this encounter (statuses as of 02/07/2020) Active Problems Problem Noted Date Weakness 12/25/2019 Pericardial effusion 10/25/2019 Arm DVT (deep venous thromboembolism), acute, left 04/2020 Chest pain 10/24/2019 NSTEMI (non-ST elevated myocardial infarction) 020 Left sided numbness 09/03/2019 S/P CABG (coronary artery bypass graft) 06/30/2019 Leukocytosis 06/16/2019 Tachycardia 06/15/2019 Coronary artery disease involving [place] coronary herson ry of [place] heart 06/08/2019 with angina pectoris Overview: Added automatically from request for ilan de la cruz [id number] Sepsis 05/03/2019 Obesity (BMI 30-39.9) 05/03/2019 Other [...] as of this encounter (statuses as of 02/07/2020) Immunizations Name Administration Dates Next Due Influenza [...] 55-80 with 30 + pack year history Depression Screening 06/30/2020 06/30/2019 PNEUMOCOCCAL 0-64 YEARS COMBINED SERIES Completed 12/11/19 19 HEPATITIS C (HCV) SCREEN Completed 10/11/2019 INFLUENZA VACCINE Completed 10/18/2019, 12/10/2018 documented as of this encounter Implants Implanted Type Area Ict Managers Device Shelf Expiration Model / Identifier Date Serial / Lot Screw SCREW Right: Ankle Screw SCREW Left: Foot documented as of this encounter Procedures Procedure Name Priority Date/Time Associated Diagnosis Comme nts REFERRAL- Routine 01/17/2020 12:01 AM CDT REQUEST/RESPONSE documented in this encounter Results Not on filedocumented in this encounter Insurance Payer Benefit Plan / Subscriber ID Effective Phone Address T ype Group Dates PARADA PARADA xxxxxxxxx 2015-Benjy [address] [place] [id number] MANAGED MEDICAID [place], [place]ICA[place] documented as of this encounter Advance Directives Name Relationship Healthcare Agent Communication Relationship Swapnil Whyte Spouse Primary healthcare agent
--- OUTSIDE RECORDS SUMMARY | 2020-04-17 23:43 | XMS REPORT ---
:1965 Author Organization [employer] Care Team Providers Name Role Phone Micheal James Provider Role Unavailable Allergies, Adverse Reactions, Alerts Substance Reaction Event Type Toradol Info Not Available Drug Allergy Stadol Info Not Available Drug Allergy Lyrica Info Not Available Drug Allergy Ibuprofen Info Not Available Drug Allergy Divalproex Sodium Info Not Available Drug Allergy Problems Problem Type Condition Code Onset Dates Condition Statu s Assessment Post traumatic stress disorder F43.10 Active Assessment Obstructive sleep apnea G47.33 Acti ve Assessment Hyperlipemia, mixed E78.2 Active Assessment History of cerebrovascular accident I69.90 Active with current residual effects Assessment Benign essential HTN I10 Active Assessment Stented coronary artery Z95.5 Acti ve Assessment S/P CABG x 1 Z95.1 Active Assessment Chronic systolic heart failure I50.22 Active Assessment History of non-ST elevation I25.2 Active myocardial infarction (NSTEMI) Problem Peripheral vascular disease I73.9 Active Assessment 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[place] heart with stable angina pectoris Problem Benign essential HTN I10 Active Problem Obesity E66.9 Active Problem Adult BMI 40.0-44.9 kg/sq m Z68.41 Active Problem Cough R05 Active Problem Coronary artery disease involving I25.119 Active [place] coronary artery of [place] heart with angina pectoris Problem 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[place] heart with stable angina pectoris Problem History of cerebrovascular accident I69.90 Active with current residual effects Problem Chronic back pain M54.9 Active Problem Stented coronary artery Z95.5 Acti ve Problem Hyperlipemia, mixed E78.2 Active Problem S/P CABG x 1 Z95.1 Active Problem Chronic systolic heart failure I50.22 Active Problem History of non-ST elevation I25.2 Active myocardial infarction (NSTEMI) Problem Leukocytosis, unspecified type D72.829 Active Assessment Depression with anxiety F41.8 Acti ve Problem Depression with anxiety F41.8 Acti ve Assessment Left hemiparesis G81.90 Active Problem Anticoagulated Z79.01 Active Assessment Leukocytosis, unspecified type D72.829 Active Problem Post traumatic stress disorder F43.10 Active Assessment Adult BMI 40.0-44.9 kg/sq m Z68.41 Active Problem Obstructive sleep apnea G47.33 Acti ve Problem Migraine G43.909 Active Problem Gastro-esophageal reflux K21.9 Act jhony Problem Antiphospholipid syndrome D68.61 Ac tive Problem Left hemiparesis G81.90 Active Medications Medication Code Code Instructions Start End Status Dosage System Date Date Wellbutrin ND 0 100 MG Orally Active 1 table t Twice a day Abilify [facility] 97603855562 10 MG Orally Inactive 1 tabl et Once a day Aspir-[address] [facility] 32142557605 81 MG Orally Active 1 tabl et Once a day Metoprolol [facility] 11050822708 50 MG Orally Active 1 ta blet Tartrate Twice a day with food Lipitor [facility] 66669478590 80 MG Orally Active 1 table t Once a day Ambien [facility] 09860384453 10 MG Orally Active 1 table t Once a day at bedtime as needed Lasix [facility] 42668495930 40 MG Orally Active 0.5 tab let Once a day Clopidogrel [facility] [id number] 75 MG Orally Active 1 t ablet Bisulfate Once a day Promethazine [facility] 79582341359 25 MG Orally Active TA KE ONE HCl every 12 hrs TABLET BY PRN MOUTH EVERY 12 HOURS NEEDED FOR NAUSEA AND VOMITING Eliquis [facility] [id number] 5 MG Orally Active as directed Zoloft [facility] 55995922364 100 MG Orally Active 1 tabl et Once a day Symbicort [facility] 12852462433 160-4.5 MCG/ACT Active 2 puffs Inhalation Twice a day Potassium [facility] [id number] 20 MEQ Orally Active 1 ca psule Chloride Twice a day Results No Known Results Summary Purpose eClinicalWorks Submission
--- OUTSIDE RECORDS SUMMARY | 2020-04-17 23:43 | XMS REPORT ---
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[place] heart with stable angina pectoris Problem History of cerebrovascular accident I69.90 Active with current residual effects Problem Chronic back pain M54.9 Active Problem Stented coronary artery Z95.5 Acti ve Problem Hyperlipemia, mixed E78.2 Active Problem Leukocytosis, unspecified type D72.829 Active Problem S/P CABG x 1 Z95.1 Active Problem History of non-ST elevation I25.2 Active myocardial infarction (NSTEMI) Problem GERD without esophagitis K21.9 Act jhony Assessment Depression with anxiety F41.8 Acti ve Problem Depression with anxiety F41.8 Acti ve Assessment Left hemiparesis G81.90 Active Problem Anticoagulated Z79.01 Active Assessment Leukocytosis, unspecified type D72.829 Active Problem Post traumatic stress disorder F43.10 Active Assessment Adult BMI 40.0-44.9 kg/sq m Z68.41 Active Problem Obstructive sleep apnea G47.33 Acti ve Problem Migraine G43.909 Active Assessment GERD without esophagitis K21.9 Act jhony Problem Peripheral vascular disease I73.9 Active Problem Antiphospholipid syndrome D68.61 Ac tive Problem Left hemiparesis G81.90 Active Medications Medication Code Code Instructions Start End Status Dosage System Date Date Symbicort [facility] 74890082464 160-4.5 MCG/ACT Active 2 puffs Inhalation Twice a day Potassium [facility] 17254461928 20 MEQ Orally Active 1 ca psule Chloride Twice a day - [facility] 31868218133 81 MG Orally Active 1 tabl et Once a day Lipitor [facility] 40026774340 80 MG Orally Active 1 table t Once a day Promethazine [facility] 25052590754 25 MG Orally Active TA KE ONE HCl every 12 hrs TABLET BY PRN MOUTH EVERY 12 HOURS NEEDED FOR NAUSEA AND VOMITING Zoloft [facility] 39545458897 100 MG Orally Active 1 tabl et Once a day Metoprolol [facility] 56195435095 50 MG Orally Active 1 ta blet Tartrate Twice a day with food Clopidogrel [facility] 20210400516 75 MG Orally Active 1 t ablet Bisulfate Once a day Omeprazole [facility] 16913342804 40 MG Orally Mar 28, Active 1 ca psule Once a day 2020 30 minutes before morning meal Ambien [facility] 87718991869 10 MG Orally Active 1 table t Once a day at bedtime as needed Promethazine [facility] 52394437448 25 MG Active TAKE ON E HCl TABLET BY MOUTH EVERY 12 HOURS NEEDED FOR NAUSEA AND VOMITING Abilify [facility] 97974424461 10 MG Orally Inactive 1 tabl et Once a day Wellbutrin ND 0 100 MG Orally Active 1 table t Twice a day Lasix [facility] 62760913088 40 MG Orally Active 0.5 tab let Once a day Eliquis [facility] 23144027537 5 MG Orally Active as directed Results No Known Results Summary Purpose eClinicalWorks Submission
--- OUTSIDE RECORDS SUMMARY | 2020-04-17 23:43 | XMS REPORT | Summary of Care ---
:1965 Author Organization [facility] Address [address] [place] [address] Care Team Providers Name Role Phone James Burton Primary Care Provider Reason for Visit Reason Comments Assessment Rx Concern/Question Encounter Details Date Type Department Care Team Description 01/17/2020 Telephone [facility] Ludwig Escobar Assessment; R x Cardiology- Jairo Cannon MD Concern/Question [address], [address] [place] [phone] Allergies Active Allergy Reactions Severity Noted Date Comments Prochlorperazine Edisylate Nausea and/or 08/21/2005 Vomiting Divalproex Sodium Anxiety 08/21/2005 Gabapentin Unknown - See 01/02/2008 Blurred vision comments Nsaids (Non-Steroidal Nausea and/or 06/15/2015 Anti-Inflammatory Drug) Vomiting Butorphanol Tartrate Rash 08/21/2005 Ketorolac Tromethamine Rash 08/21/2005 documented as of this encounter (statuses as of 01/20/2020) Medications Medication Sig Dispensed Refills Start Date End Date Status atorvastatin 80 mg Take 1 tablet by 30 tablet 3 09/03/2019 Active tabletIndications: mouth at bedtime. S/P CABG (coronary artery bypass graft), Coronary artery disease involving [place] coronary artery of [place] heart with angina pectoris LORazepam 2 mg [...] PRN based disease involving on leg swelling [place] coronary and body weight) artery of [place] for up to 30 heart with angina doses. pectoris, NSTEMI (non-ST elevated myocardial infarction) KCL 20 mEq Take 1 tablet by 30 tablet 2 11/07/2019 A ctive tabletIndications: mouth as needed Coronary artery (Recommend to take disease involving KCL if taking [place] coronary lasix.) for up to artery of [place] 30 doses. heart with angina pectoris, NSTEMI [...] as of this encounter (statuses as of 01/20/2020) Active Problems Problem Noted Date Weakness 12/25/2019 Pericardial effusion 10/25/2019 Arm DVT (deep venous thromboembolism), acute, left 04/2020 Chest pain 10/24/2019 NSTEMI (non-ST elevated myocardial infarction) 020 Left sided numbness 09/03/2019 S/P CABG (coronary artery bypass graft) 06/30/2019 Leukocytosis 06/16/2019 Tachycardia 06/15/2019 Coronary artery disease involving [place] coronary herson ry of [place] heart 06/08/2019 with angina pectoris Overview: Added automatically from request for ilan de la cruz [id number] Sepsis 05/03/2019 Obesity (BMI 30-39.9) 05/03/2019 Other [...] as of this encounter (statuses as of 01/20/2020) Immunizations Name Administration Dates Next Due Influenza [...] of this encounter Implants Implanted Type Area Hose Cementer Device Shelf Expiration Model / Identifier Date Serial / Lot Screw SCREW Right: Ankle Screw SCREW Left: Foot documented as of this encounter Results Not on filedocumented in this encounter Insurance Payer Benefit Plan / Subscriber ID Effective Phone Address T ype Group Dates KARMA PARADA xxxxxxxxx 2015-Benjy [place] [id number] MA[place]GED MEDICAID [place], [place] documented as of this encounter Advance Directives Name Relationship Healthcare Agent Communication Relationship Swapnil Whyte Spouse Primary healthcare agent
--- OUTSIDE RECORDS SUMMARY | 2020-04-17 23:43 | XMS REPORT | Summary of Care ---
:1965 Author Organization [facility] Address [address] [place] [address] Care Team Providers Name Role Phone James Burton Pato Primary Care Provider Reason for Referral (Routine) Status Reason Specialty Diagnoses / Referred By Referred To Procedures Contact Contact New Request Diagnoses Coronary artery disease involving [place] coronary artery of [place] heart with angina pectoris Pericardial effusion Atypical chest pain S/P CABG (coronary artery bypass graft) Essential hypertension Chronic diastolic heart failure Escobar, Sendil Dyslipidemia History of CVA (cerebrovascular accident) BRO (dyspnea on exertion) MD Davis Procedures UNILATERAL VENOUS DUPLEX LOWER EXTREMITY BY VASCULAR LAB [address] [place] [phone] (Routine) Status Reason Specialty Diagnoses / Procedures Referred By C ontact Referred To Contact Closed Cardiology Diagnoses Coronary artery disease involving [place] coronary artery of [place] heart with angina pectoris Pericardial effusion Atypical chest pain S/P CABG (coronary artery bypass graft) Essential hypertension Chronic diastolic heart failure Escobar, Sendil Dyslipidemia History of CVA (cerebrovascular accident) BRO (dyspnea on exertion) MD Davis Procedures ECHO ROUTINE W/DOPPLER COLOR Preferred Location: [facility] [address] [facility] [address] [place] [phone] Phone: Reason for Visit Reason Comments Follow-up Coronary Disease (Routine) Status Reason Specialty Diagnoses / Referred By Referred To Procedures Contact Contact New Request IM-CARDIOVASCULAR Diagnoses NSTEMI (non-ST elevated myocardial infarction) [facility], DISEASE / Procedures Discharge Follow-Up: Specialty Service IM-CARDIOVASCULAR DISEASE; 4-6 Weeks MD [facility] [address] [place] [address] Encounter Details Date Type Department Care Team Description 01/06/2020 Telemedicine Visit [facility] Ludwig Escobar Coronar y artery disease involving [place] coronary artery of [place] heart with angina pectoris (Primary Dx); Cardiology- MD Davis Pericardial effusion; [facility] [address] [facility] Atypical chest pain; [address] S/P CABG (coronary artery bypass graft); Drive, [address] [place], [place] Essential hypertension; [place] [address] Chronic diastolic heart failure; [phone] Dyslipidemia; [phone] History of CVA (cerebrovascular accident); (Fax) BRO (dyspnea on exertion) Allergies Active Allergy Reactions Severity Noted Date Comments Prochlorperazine Edisylate Nausea and/or 08/21/2005 Vomiting Divalproex Sodium Anxiety 08/21/2005 Gabapentin Unknown - See 01/02/2008 Blurred vision comments Nsaids (Non-Steroidal Nausea and/or 06/15/2015 Anti-Inflammatory Drug) Vomiting Butorphanol Tartrate Rash 08/21/2005 Ketorolac Tromethamine Rash 08/21/2005 documented as of this encounter (statuses as of 01/21/2020) Medications Medication Sig Dispensed Refills Start Date End Date Status atorvastatin 80 mg Take 1 tablet by 30 tablet 3 09/03/2019 Active tabletIndications: mouth at S/P CABG (coronary bedtime. artery bypass graft), Coronary artery disease involving [place] coronary artery of [place] heart with angina pectoris LORazepam 2 mg [...] PRN based disease involving on leg swelling [place] coronary and body weight) artery of [place] for up to 30 heart with angina doses. pectoris, NSTEMI (non-ST elevated myocardial infarction) KCL 20 mEq Take 1 tablet by 30 tablet 2 11/07/2019 A ctive tabletIndications: mouth as needed Coronary artery (Recommend to disease involving take KCL if [place] coronary taking lasix.) artery of [place] for up to 30 heart with angina [...] as of this encounter (statuses as of 01/21/2020) Active Problems Problem Noted Date Weakness 12/25/2019 Pericardial effusion 10/25/2019 Arm DVT (deep venous thromboembolism), acute, left 04/2020 Chest pain 10/24/2019 NSTEMI (non-ST elevated myocardial infarction) 020 Left sided numbness 09/03/2019 S/P CABG (coronary artery bypass graft) 06/30/2019 Leukocytosis 06/16/2019 Tachycardia 06/15/2019 Coronary artery disease involving [place] coronary herson ry of [place] heart 06/08/2019 with angina pectoris Overview: Added automatically from request for ilan de la cruz [id number] Sepsis 05/03/2019 Obesity (BMI 30-39.9) 05/03/2019 Other [...] as of this encounter (statuses as of 01/21/2020) Immunizations Name Administration Dates Next Due Influenza [...] Escobar MD - 01/06/2020 10:00 AM CDT [facility] Cardiology Consult Note Patient: Delilah Whyte [...] and left facial drop. Was sent to [facility]. On 11/2018: Admitted for new onset leg edema, dyspnea on exertion and orthopnea. She was in [facility] a few times for various [...] obstructive pulmonary disease) Coronary artery disease involving [place] coronary artery of [place] heart with angina pectoris 06/08/2019 Depression Encephalitis 2014 Essential hypertension, benign Former smoker History of CVA (cerebrovascular accident) left side numbness, L sided facial droop Hyperlipidemia Morbid obesity Posttraumatic stress disorder Right ovarian cyst Seizures 2014 encephalitis Unspecified migraine Past Surgical History: Procedure Laterality Date ANKLE ARTHRODESIS Right 1996 APPENDECTOMY CHOLECYSTECTOMY CORONARY ARTERY BYPASS GRAFT N/A 06/30/2019 Surgeon: Noah Bolton Jr., MD; Location: [facility] FOOT ORIF (SHX) Bilateral HYSTERECTOMY Family [...] file Gets together: Not on file Attends mandaeism service: Not on file Active member of [...] on file Social History Narrative Lives in [place] with and Kids ALLERGIES Allergies Allergen Reactions [...] (H) ASSESSMENT/PLAN 1. Coronary artery disease involving [place] coronary artery of [place] heart with angina pectoris CBC WITH DIFF COMP. METABOLIC PANEL (67997) CREATINE KINASE LIPID PANEL (25053)(TOTAL CHOLESTEROL, TRIGLYCERIDES, HDL) N-TERMINAL PRO-BNP ECHO ROUTINE W/DOPPLER COLOR Preferred Location: [facility] UNILATERAL VENOUS DUPLEX LOWER EXTREMITY BY VASCULAR LAB 2. Pericardial effusion CBC WITH DIFF COMP. METABOLIC PANEL (79424) CREATINE KINASE LIPID PANEL (90768)(TOTAL CHOLESTEROL, TRIGLYCERIDES, HDL) N-TERMINAL PRO-BNP ECHO ROUTINE W/DOPPLER COLOR Preferred Location: [facility] UNILATERAL VENOUS DUPLEX LOWER EXTREMITY BY VASCULAR LAB 3. Atypical chest pain CBC WITH DIFF COMP. METABOLIC PANEL (88735) CREATINE KINASE LIPID PANEL (82986)(TOTAL CHOLESTEROL, TRIGLYCERIDES, HDL) N-TERMINAL PRO-BNP ECHO ROUTINE W/DOPPLER COLOR Preferred Location: [facility] UNILATERAL VENOUS DUPLEX LOWER EXTREMITY BY VASCULAR LAB 4. S/P CABG (coronary artery bypass graft) CBC WITH DIFF COMP. METABOLIC PANEL (37460) CREATINE KINASE LIPID PANEL (58291)(TOTAL CHOLESTEROL, TRIGLYCERIDES, HDL) N-TERMINAL PRO-BNP ECHO ROUTINE W/DOPPLER COLOR Preferred Location: [facility] UNILATERAL VENOUS DUPLEX LOWER EXTREMITY BY VASCULAR LAB 5. Essential hypertension CBC WITH DIFF COMP. METABOLIC PANEL (68277) CREATINE KINASE LIPID PANEL (62189)(TOTAL CHOLESTEROL, TRIGLYCERIDES, HDL) N-TERMINAL PRO-BNP ECHO ROUTINE W/DOPPLER COLOR Preferred Location: [facility] UNILATERAL VENOUS DUPLEX LOWER EXTREMITY BY VASCULAR LAB 6. Chronic diastolic heart failure CBC WITH DIFF COMP. METABOLIC PANEL (44294) CREATINE KINASE LIPID PANEL (38742)(TOTAL CHOLESTEROL, TRIGLYCERIDES, HDL) N-TERMINAL PRO-BNP ECHO ROUTINE W/DOPPLER COLOR Preferred Location: [facility] UNILATERAL VENOUS DUPLEX LOWER EXTREMITY BY VASCULAR LAB 7. Dyslipidemia CBC WITH DIFF COMP. METABOLIC PANEL (26427) CREATINE KINASE LIPID PANEL (93045)(TOTAL CHOLESTEROL, TRIGLYCERIDES, HDL) N-TERMINAL PRO-BNP ECHO ROUTINE W/DOPPLER COLOR Preferred Location: [facility] UNILATERAL VENOUS DUPLEX LOWER EXTREMITY BY VASCULAR LAB 8. History of CVA (cerebrovascular accident) CBC WITH DIFF COMP. METABOLIC PANEL (41581) CREATINE KINASE LIPID PANEL (02783)(TOTAL CHOLESTEROL, TRIGLYCERIDES, HDL) N-TERMINAL PRO-BNP ECHO ROUTINE W/DOPPLER COLOR Preferred Location: [facility] UNILATERAL VENOUS DUPLEX LOWER EXTREMITY BY VASCULAR LAB 9. BRO (dyspnea on exertion) CBC WITH DIFF COMP. METABOLIC PANEL (40324) CREATINE KINASE LIPID PANEL (00973)(TOTAL CHOLESTEROL, TRIGLYCERIDES, HDL) N-TERMINAL PRO-BNP ECHO ROUTINE W/DOPPLER COLOR Preferred Location: [facility] UNILATERAL VENOUS DUPLEX LOWER EXTREMITY BY [...] She hasn't followed up with Dr Gardiner (optical fabricator) yet. She has Thrombocytopenia: Rpt CBC. Chronic [...] Procedures CBC WITH DIFF COMP. METABOLIC PANEL (99227) CREATINE KINASE LIPID PANEL (66173)(TOTAL CHOLESTEROL, TRIGLYCERIDES, HDL) N-TERMINAL PRO-BNP ECHO ROUTINE W/DOPPLER COLOR Preferred Location: [facility] Requested Prescriptions No prescriptions requested or [...] in the answers given. We reviewed the [employer] recommendations for reduction of overall [...] feel free to call our office at [phone]. I would be happy to be of further assistance for Delilah Whyte wellbeing. Rafy Escobar MD Loop Cutter, Division of Cardiology [facility] Addendum 01/21/[address] Gardiner hematology office was reviewed Seen by her 05/2013 and 07/2013 Referred for hypercoagulable work up. 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 Hence no evidence of hypercoagulable work noted Noted to ASCVD as cause of TA/CVA Rafy Escobar MD Loop Cutter, Division of Cardiology [facility] documented in this encounter Plan of Treatment Name Type Priority Associated Diagnoses Order S chedule CBC WITH DIFF LAB Routine Coronary artery disease 1 O ccurrences starting involving [place] 01/07/2020 until coronary artery of 1 [place] heart with angina pectoris Pericardial effu matthew Atypical chest p ain S/P CABG (coronary artery bypass gr aft) Essential hypert ension Chronic diastolic heart failure Dyslipidemia History of CVA (cerebrovascular accident) BRO (dyspnea on exertion) COMP. METABOLIC PANEL LAB Routine Coronary artery dis ease 1 Occurrences starting (96508) involving [place] 01/07/2020 until coronary artery of 1 [place] heart with angina pectoris Pericardial effu matthew Atypical chest p ain S/P CABG (coronary artery bypass gr aft) Essential hypert ension Chronic diastolic heart failure Dyslipidemia History of CVA (cerebrovascular accident) BRO (dyspnea on exertion) CREATINE KINASE LAB Routine Coronary artery disease E xpected: 01/07/2020, involving [place] Expires: coronary artery of [place] heart with angina pectoris Pericardial effu matthew Atypical chest p ain S/P CABG (coronary artery bypass gr aft) Essential hypert ension Chronic diastolic heart failure Dyslipidemia History of CVA (cerebrovascular accident) BRO (dyspnea on exertion) LIPID PANEL LAB Routine Coronary artery disease 1 Oc currences starting (96433)(TOTAL involving [place] 01/07/2020 until CHOLESTEROL, coronary artery of 1 TRIGLYCERIDES, HDL) [place] heart with ang aissatou pectoris Pericardial effu matthew Atypical chest p ain S/P CABG (coronary artery bypass gr aft) Essential hypert ension Chronic diastolic heart failure Dyslipidemia History of CVA (cerebrovascular accident) BRO (dyspnea on exertion) N-TERMINAL PRO-BNP LAB Routine Coronary artery diseas e 1 Occurrences starting involving [place] 01/07/2020 until coronary artery of 1 [place] heart with angina pectoris Pericardial effu matthew [...] of this encounter Implants Implanted Type Area Chocolate Temperer Device Shelf Expiration Model / Identifier Date Serial / Lot Screw SCREW Right: Ankle Screw SCREW Left: Foot documented as of this encounter Results Not on filedocumented in this encounter Visit Diagnoses Diagnosis Coronary artery disease involving [place] coronary artery of [place] heart with angina pectoris - Primary Pericardial [...] T ype Group Dates KARMA PARADA xxxxxxxxx 2015-[employer] [place] [facility] [address] MANAGED MEDICAID [place] (Work) documented as of this encounter Advance Directives Name Relationship Healthcare Agent Communication Relationship Swapnil Whyte Spouse Primary healthcare agent "
--- OUTSIDE RECORDS SUMMARY | 2020-04-17 23:43 | XMS REPORT ---
:1965 Author Organization eClinicalWorks Care Team Providers Name Role Phone James Burton Provider Role Unavailable Allergies No Known Allergies Problems Problem Type Condition Code Onset Dates Condition Statu s Problem Migraine G43.909 Active Problem Peripheral vascular disease I73.9 Active Problem Gastro-esophageal reflux K21.9 Act jhony Problem S/P CABG x 1 Z95.1 Active Assessment History of cerebrovascular accident I69.90 Active with current residual effects Problem Chronic systolic heart failure I50.22 Active [...]
[2020-04-18] MEDS ORDERED: NA CHLORIDE 0.9% 250 ML ONE
[2020-04-18] MEDS ORDERED: NA CHLORIDE 0.9% 1,000 ML ONE (00:44)
[2020-04-18] MEDS ORDERED: ONDANSETRON 4 MG/2 ML VIAL ONE (00:47)
[2020-04-18 00:48] LABS: Protime INR 1.16
[2020-04-18 00:49] LABS: Absolute Lymphocytes (CBC) 3.6 K/uL (0.7-4.9); Basophils % 0.8 % (0-1.3); Hematocrit 38.4 % (36.0-45.0); Lymphocytes % 20.2 % (15.3-44.8); MPV 6.5 fL (7.6-11.3); RBC Red Blood Cell Count 4.87 M/uL (3.86-4.86)
[2020-04-18 01:00] LABS: ALT/SGPT 82 U/L (12-78); AST/SGOT 49 U/L (15-37); Albumin 3.3 g/dL (3.4-5.0); Alkaline Phosphatase 238 U/L (45-117); BUN Blood Urea Nitrogen 24 mg/dL (7-18); Bicarbonate 31 mmol/L (21-32); Bilirubin Direct 0.1 mg/dL (0-0.2); Bilirubin Total 0.5 mg/dL (0.2-1.0); Glucose Level 106 mg/dL (74-106); NT PRO-BNP 638 pg/mL (<125); Potassium 5.5 mmol/L (3.5-5.1); Protein, Total 7.4 g/dL (6.4-8.2); Sodium Level 136 mmol/L (136-145); Troponin (Emerg Dept Use Only) < 0.02 ng/mL (0.0-0.045)
[2020-04-18 01:43] LABS: Blood Morphology Comment NOT SEEN (NOT SEEN); Platelet Estimate DECR; White Blood Cell Scan OK
--- NOTE | 2020-04-18 02:25 | ER ---
Nurse's Notes [facility] Name: Kathy Whyte Age: 54 yrs Sex: Female : 1965 Arrival Date: 04/17/2020 Time: 23:33 Bed 7 Private MD: Diagnosis: Chest pain. Hypotension. Leukocytosis Presentation: 04/17 23:37 Chief complaint: EMS states: she started to have radiating chest pain since 9 pm. she mg2 took tylenol # 3 and metorpolol 50 mg \T\ 9 pm. her blood pressure was running low 81/51 mmHg. she had previous history of heart attack last January 2020. Coronavirus screen: Client denies travel out of the [place] in the last 14 days. At this time, the client does not indicate any symptoms associated with coronavirus-19. Ebola Screen: No symptoms or risks identified at this time. Initial Sepsis Screen: Does the patient meet any 2 criteria? No. Patient's initial sepsis screen is negative. Does the patient have a suspected source of infection? No. Patient's initial sepsis screen is negative. Risk Assessment: Do you want to hurt yourself or someone else?. Onset of symptoms was April 17, 2020 at 21:00. 23:37 Method Of Arrival: EMS: [facility] mg2 23:37 Acuity: ARI 2 mg2 INTEL RECRUITER: 04/18 00:05 LMP N/A - Hysterectomy rr5 Historical: - Allergies: 04/17 23:41 Compazine; mg2 23:41 Morphine; mg2 23:41 Neurontin; mg2 23:41 NSAIDS; mg2 23:41 Stadol; mg2 23:41 Toradol; mg2 - Home Meds: 23:41 carvedilol 12.5 mg Oral tab 1 tab 2 times per day [Active]; bupropion HCl 200 mg Oral mg2 TbER 1 tab 2 times per day [Active]; lisinopril 20 mg Oral tab [Active]; methocarbamol 750 mg Oral tab 1 tab every 4 hours [Active]; Risperdal 1 mg Oral tab 1 tab 2 times per day [Active]; sertraline 100 mg Oral tab 1 tab once daily [Active]; topiramate 25 mg Oral CSpX 1 cap once daily [Active]; triazolam 0.25 mg Oral tab 2 tabs once daily [Active]; 04/18 01:46 Eliquis oral oral [Active]; mg2 - PMHx: 04/17 23:41 Anxiety; CVA; Depression; High Cholesterol; Hypertension; Seizures; mg2 - PSHx: 23:41 CABG; Heart stents; mg2 23:48 Cholecystectomy; Appendectomy; Hysterectomy; mg2 - Immunization history:: Flu vaccine status is unknown. - Social history:: Smoking status: Patient denies any tobacco usage or history of. Patient/guardian denies using alcohol, street drugs, IV drugs. Screenin/01 00:02 Abuse screen: Denies threats or abuse. Denies injuries from another. Nutritional mg2 screening: No deficits noted. Tuberculosis screening: No symptoms or risk factors identified. Fall Risk IV access (20 points). Assessment: 00:03 General: Appears in no apparent distress. comfortable, Behavior is calm, cooperative. mg2 Pain: Complains of pain in chest Pain radiates to left arm Pain currently is 4 out of 10 on a pain scale. Quality of pain is described as aching, Pain began gradually. Neuro: Level of Consciousness is awake, alert, obeys commands, Oriented to person, place, time, situation. Cardiovascular: Capillary refill Patient's skin is warm and dry. Cardiovascular: Reports chest pain. Respiratory: Airway is patent Respiratory effort is even, unlabored, Respiratory pattern is regular, symmetrical. GI: No signs and/or symptoms were reported involving the gastrointestinal system. : No signs and/or symptoms were reported regarding the genitourinary system. EENT: No signs and/or symptoms were reported regarding the EENT system. Derm: Skin is intact, is healthy with good turgor, Skin is pink, warm \T\ dry. normal. Musculoskeletal: Circulation, motion, and sensation intact. Capillary refill < 3 seconds. 01:39 Reassessment: patient sent to CT via stretcher. mg2 Vital Signs: 04/17 23:37 BP 94 / 30; Pulse 51; Resp 18; Pulse Ox 99% on R/A; Weight 69.4 kg; Height 5 ft. 3 in. mg2 (160.02 cm); Pain 11/25; 04/18 00:03 Temp 98(O); mg2 00:28 BP 106 / 65; Pulse 61; Resp 18; Pulse Ox 100% on R/A; mg2 01:00 BP 95 / 59; Pulse 58; Resp 18; Pulse Ox 100% on R/A; mg2 02:08 BP 93 / 69; Pulse 56; Resp 18; Pulse Ox 99% on R/A; mg2 03:37 BP 114 / 49; Pulse 56; Resp 18; Pulse Ox 100% on R/A; rr5 04/17 23:37 Body Mass Index 27.10 (69.40 kg, 160.02 cm) mg2 ED Course: 04/17 23:33 Patient arrived in ED. mg2 23:34 Nikunj Sam MD is Attending Physician. pkl 23:40 Triage completed. mg2 23:40 Arm band placed on. mg2 23:49 No provider procedures requiring assistance completed. mg2 23:55 Inserted saline lock: 22 gauge in right hand, using aseptic technique. rr5 04/18 00:02 Berhane Carpenter, RN is Primary Nurse. rr5 00:03 Patient has correct armband on for positive identification. director of solutions architecture on. Pulse mg2 ox on. NIBP on. 00:05 Door closed. Warm blanket given. mg2 00:08 XRAY Chest (1 view) In Process Unspecified. EDMS 00:39 Accessed peripheral vein via ultrasound, utilizing dynamic ultrasound technique Blood sg collected. using ,sterile technique, per hospital protocol. Clean \T\ dry. Dressing intact. Good blood return. Flushes easily. a POWERGLIDE PRO MIDLINE CATH, 20 G 10 CM, was inserted to the LUE, labs recollected and sent at this time. 01:04 Patient admitted, IV remains in place. mg2 01:05 covid swab sent to lab. mg2 01:55 CT Chest Wo Con In Process Unspecified. EDMS 02:23 Dion Michel DO is Hospitalizing Provider. pkl 02:26 Berhane Mccormick MD is Hospitalizing Provider. la1 Administered Medications: 04/17 23:48 Drug: NS 0.9% 250 ml Route: IV; Rate: 250 bolus; Site: right hand; mg2 04/18 01:04 Follow up: Response: No adverse reaction; IV Status: Completed infusion; IV Intake: mg2 250ml 00:39 Drug: Zofran (Ondansetron) 4 mg Route: IVP; Site: left upper arm; mg2 01:04 Follow up: Response: No adverse reaction mg2 00:40 Drug: NS 0.9% 1000 ml Route: IV; Rate: 100 ml/hr; Site: left upper arm; rr5 Intake: 01:04 IV: 250ml; Total: 250ml. mg2 Outcome: 02:25 Decision to Hospitalize by Provider. pkl 04:10 Patient left the ED. mg2 Signatures: Dispatcher [employer] EDRadames Saini, RN Nikunj Matthews MD MD pkl Agustin Huynh, HOME THEATRE TECHNICIAN-C HOME THEATRE TECHNICIAN-Cla1 Jay Palacios RN RN mg2 Berhane Carpenter RN RN rr5
--- NOTE | 2020-04-18 02:25 | EDPHYS ---
Physician Documentation [facility] Name: Kathy Whyte Age: 54 yrs Sex: Female : 1965 Arrival Date: 04/17/2020 Time: 23:33 Bed 7 Private MD: ED Physician Nikunj Sam HPI: 04/17 23:51 This 54 yrs old Female presents to ER via EMS with unknown complaint. pkl 23:51 The patient or guardian reports chest pain that is located primarily in the substernal pkl area. Onset: just prior to arrival, 2 hour(s) ago. The pain radiates to the left arm. Associated signs and symptoms: Pertinent positives: low blood pressure. The chest pain is described as a heaviness. H/O CAD. Had CABG in 2018 and LA in February 04. 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 N/A - Hysterectomy rr5 Historical: - Allergies: 04/17 23:41 Compazine; mg2 23:41 Morphine; mg2 23:41 Neurontin; mg2 23:41 NSAIDS; mg2 23:41 Stadol; mg2 23:41 Toradol; mg2 - Home Meds: 23:41 carvedilol 12.5 mg Oral tab 1 tab 2 times per day [Active]; bupropion HCl 200 mg Oral mg2 TbER 1 tab 2 times per day [Active]; lisinopril 20 mg Oral tab [Active]; methocarbamol 750 mg Oral tab 1 tab every 4 hours [Active]; Risperdal 1 mg Oral tab 1 tab 2 times per day [Active]; sertraline 100 mg Oral tab 1 tab once daily [Active]; topiramate 25 mg Oral CSpX 1 cap once daily [Active]; triazolam 0.25 mg Oral tab 2 tabs once daily [Active]; 04/18 01:46 Eliquis oral oral [Active]; mg2 - PMHx: 04/17 23:41 Anxiety; CVA; Depression; High Cholesterol; Hypertension; Seizures; mg2 - PSHx: 23:41 CABG; Heart stents; mg2 23:48 Cholecystectomy; Appendectomy; Hysterectomy; mg2 - Immunization history:: Flu vaccine status is unknown. - Social history:: Smoking status: Patient denies any tobacco usage or history of. Patient/guardian denies using alcohol, street drugs, IV drugs. ROS: 23:51 Eyes: Negative for injury, pain, redness, and discharge, ENT: Negative for injury, pkl pain, and discharge, Neck: Negative for injury, pain, and swelling. 23:51 Cardiovascular: Positive for chest pain. 23:51 Respiratory: Negative for cough, shortness of breath. 23:51 Abdomen/GI: Negative for abdominal pain, nausea, vomiting, and diarrhea. 23:51 Back: Negative for acute changes. 23:51 : Negative for urinary symptoms. 23:51 MS/extremity: Negative for acute changes. 23:51 Skin: Negative for rash. 23:51 Neuro: Negative for altered mental status. Exam: 23:51 Head/Face: Normocephalic, atraumatic. Eyes: Pupils equal round and reactive to light, pkl extra-ocular motions intact. Lids and lashes normal. Conjunctiva and sclera are non-icteric and not injected. Cornea within normal limits. Periorbital areas with no swelling, redness, or edema. ENT: Nares patent. No nasal discharge, no septal abnormalities noted. Tympanic membranes are normal and external auditory canals are clear. Oropharynx with no redness, swelling, or masses, exudates, or evidence of obstruction, uvula midline. Mucous membranes moist. Neck: Trachea midline, no thyromegaly or masses palpated, and no cervical lymphadenopathy. Supple, full range of motion without nuchal rigidity, or vertebral point tenderness. No Meningismus. Chest/axilla: Normal chest wall appearance and motion. Nontender with no deformity. No lesions are appreciated. Cardiovascular: Regular rate and rhythm with a normal S1 and S2. No gallops, murmurs, or rubs. Normal PMI, no JVD. No pulse deficits. Respiratory: Lungs have equal breath sounds bilaterally, clear to auscultation and percussion. No rales, rhonchi or wheezes noted. No increased work of breathing, no retractions or nasal flaring. Abdomen/GI: Soft, non-tender, with normal bowel sounds. No distension or tympany. No guarding or rebound. No evidence of tenderness throughout. Back: No spinal tenderness. No costovertebral tenderness. Full range of motion. Skin: Warm, dry with normal turgor. Normal color with no rashes, no lesions, and no evidence of cellulitis. MS/ Extremity: Pulses equal, no cyanosis. Neurovascular intact. Full, normal range of motion. Neuro: Awake and alert, GCS 15, oriented to person, place, time, and situation. Cranial nerves II-XII grossly intact. Motor strength 5/5 in all extremities. Sensory grossly intact. Cerebellar exam normal. Normal gait. Vital Signs: 23:37 BP 94 / 30; Pulse 51; Resp 18; Pulse Ox 99% on R/A; Weight 69.4 kg; Height 5 ft. 3 in. mg2 (160.02 cm); Pain 10; 04/18 00:03 Temp 98(O); mg2 00:28 BP 106 / 65; Pulse 61; Resp 18; Pulse Ox 100% on R/A; mg2 01:00 BP 95 / 59; Pulse 58; Resp 18; Pulse Ox 100% on R/A; mg2 02:08 BP 93 / 69; Pulse 56; Resp 18; Pulse Ox 99% on R/A; mg2 03:37 BP 114 / 49; Pulse 56; Resp 18; Pulse Ox 100% on R/A; rr5 04/17 23:37 Body Mass Index 27.10 (69.40 kg, 160.02 cm) mg2 MDM: 04/17 23:34 Patient medically screened. pkl 04/18 00:47 Data reviewed: vital signs, nurses notes, lab test result(s), EKG, radiologic studies. pkl 02:21 ED course: Talked to Agustin Huynh for observation ( Dr. Michel ). pkl 04/17 23:37 Order name: Basic Metabolic Panel; Complete Time: 01:46 mg2 04/17 23:37 Order name: CBC with Diff; Complete Time: 01:46 mg2 04/17 23:37 Order name: LFT's; Complete Time: 01:46 mg2 04/17 23:37 Order name: Magnesium; Complete Time: 01:46 mg2 04/17 23:37 Order name: NT PRO-BNP; Complete Time: 01:46 mg2 04/17 23:37 Order name: PT-INR; Complete Time: 00:58 mg2 04/17 23:37 Order name: Troponin (emerg Dept Use Only); Complete Time: 01:46 mg2 04/18 00:51 Order name: CBC Smear Scan; Complete Time: 01:46 EDMS 04/18 01:18 Order name: Lactate pkl 04/18 01:18 Order name: Procalcitonin pkl 04/18 01:19 Order name: Lactate; Complete Time: 04:16 EDMS 04/18 01:19 Order name: Procalcitonin; Complete Time: 02:15 EDMS 04/18 01:20 Order name: Blood Culture Adult (2) pkl 04/17 23:37 Order name: XRAY Chest (1 view) mg2 04/17 23:37 Order name: EKG; Complete Time: 23:37 mg2 04/17 23:37 Order name: Cardiac monitoring; Complete Time: 23:47 mg2 04/17 23:37 Order name: EKG - Nurse/Tech; Complete Time: 23:47 mg2 04/17 23:37 Order name: IV Saline Lock; Complete Time: 23:47 mg2 04/17 23:37 Order name: Labs collected and sent; Complete Time: 23:47 mg2 04/17 23:37 Order name: O2 Per Protocol; Complete Time: 23:47 mg2 04/17 23:37 Order name: O2 Sat Monitoring; Complete Time: 23:47 mg2 04/18 01:15 Order name: CT Chest Wo Con pkl 04/18 02:27 Order name: Urine Culture la1 04/18 02:36 Order name: SARS-COV-2 RT PCR; Complete Time: 04:16 EDMS 04/18 02:47 Order name: Urine Microscopic Only; Complete Time: 04:16 tt3 04/18 02:47 Order name: Urine Dipstick--Ancillary (enter results); Complete Time: 04:16 tt3 04/18 02:27 Order name: Urine Dipstick-Ancillary (obtain specimen); Complete Time: 03:08 la1 Administered Medications: 04/17 23:48 Drug: NS 0.9% 250 ml Route: IV; Rate: 250 bolus; Site: right hand; mg2 04/18 01:04 Follow up: Response: No adverse reaction; IV Status: Completed infusion; IV Intake: mg2 250ml 00:39 Drug: Zofran (Ondansetron) 4 mg Route: IVP; Site: left upper arm; mg2 01:04 Follow up: Response: No adverse reaction mg2 00:40 Drug: NS 0.9% 1000 ml Route: IV; Rate: 100 ml/hr; Site: left upper arm; rr5 Disposition: 04/18/20 02:25 Hospitalization ordered by Berhane Mccormikc for Observation. Preliminary diagnosis is Chest pain. Hypotension. Leukocytosis. - Bed requested for Telemetry/MedSurg (observation). - Status is Observation. mg2 - Condition is Stable. - Problem is new. - Symptoms have improved. Signatures: Dispatcher [employer] EDSC Nikunj Sam MD MD pkl Lino, Agustin, WET ROOM WORKER-C WET ROOM WORKER-Cla1 Jay Palacios RN RN mg2 Berhane Carpenter RN RN rr5 Corrections: (The following items were deleted from the chart) 01:11 01:01 CORONAVIRUS+MR.LAB.BRZ ordered. [facility] EDMS 02:26 02:25 Hospitalization Ordered by Dion Michel DO for Observation. Preliminary la1 diagnosis is Chest pain. Hypotension. Leukocytosis. Bed requested for Telemetry/MedSurg (observation). Status is Observation. Condition is Stable. Problem is new. Symptoms have improved. pkl 03:36 02:26 04/18/2020 02:25 Hospitalization Ordered by Berhane Mccormick MD for Observation. mg2 Preliminary diagnosis is Chest pain. Hypotension. Leukocytosis. Bed requested for Telemetry/MedSurg (observation). Status is Observation. Condition is Stable. Problem is new. Symptoms have improved. la1 04:10 03:36 04/18/2020 02:25 Hospitalization Ordered by Berhane Mccormick MD for Observation. mg2 Preliminary diagnosis is Chest pain. Hypotension. Leukocytosis. Bed requested for Telemetry/MedSurg (observation). Status is Observation. Condition is Stable. Problem is new. Symptoms have improved. mg2
--- NOTE | 2020-04-18 03:02 | P.HP ---
Certification for Inpatient Patient admitted to: Observation With expected LOS: <2 Midnights Patient will require the following post-hospital care: None Practitioner: I am a practitioner with admitting privileges, knowledge of patient current condition, hospital course, and medical plan of care. Services: Services provided to patient in accordance with Admission requirements found in Title 42 Section 412.3 of the Code of Federal Regulations <Agustin Huynh - Last Filed: 04/18/20 02:56> Patient History Date of Service: 04/18/20 Reason for admission: Chest pain History of Present Illness: 54-year-old female with history of anti phospholipid syndrome, CVA, CAD status post CABG, depression, PTSD, hyperlipidemia, presented to the emergency department with chief complaint of chest pain. Patient reported that she was resting in bed with the chest pain began. Patient reports that the pain was pressure-like and substernal radiating to left arm. Patient denies any associated signs or symptoms. Patient reports that pain is similar to last time when she was admitted for NSTEMI. Patient had CABG in June 2019, echocardiogram showing ejection fraction of 68% in January of 2020 and heart catheterization with stenting of the RCA in January 2020. During her evaluation in the emergency department patient was also found to have leukocytosis with a white blood cell count of 17. Patient denies any abdominal pain, no palpitation did tenderness. Patient has had a cholecystectomy and appendectomy. Patient without any shortness of breath or cough. Patient did have CT scan of the chest which did not reveal any other source of infection. Urine obtained in the emergency department shows 1+ leukocytes, has been sent for microscopic evaluation. Blood cultures and urine cultures obtained. Patient appears nontoxic at this time. Patient be admitted for further evaluation and management. - Past Medical/Surgical History Diabetic: No -: HTN -: Hyperlipidemia -: History of CVA/TIA 2011 -: Antiphospholipid syndrome -: BLood clot (left forearm 09/2019) -: Depression -: Former Tobacco abuse -: Chronic pain -: Migraines, complex/complicated/mixed, acute headache -: GERD -: Migraines, complex/complicated/mixed -: acute headache -: Choleycystectomy -: Appendectomy -: Hysterectomy/left ovary removed -: (R) ankle/foot sx -: bilateral feet surgery-with plates and screws -: tonsilectomy -: November 2013 destinee cath placement, removed -: Bypass (06/2019) Psychosocial/ Personal History: . Lives at home. - Family History Mother -: Hypertension, Diabetes Father -: Hypertension, Stroke - Social History Alcohol use: No CD- Drugs: Yes Caffeine use: No Place of Residence: Home <VivianeAgustin rockwell - Last Filed: 04/18/20 02:56> Date of Service: 04/18/20 <Berhane Mccormick - Last Filed: 04/18/20 14:33> Allergies butorphanol tartrate [From Stadol] Allergy (Intermediate, Verified 12/06/15 00:35) angry gabapentin [From Neurontin] Allergy (Intermediate, Verified 12/06/15 00:35) Blurred vision prochlorperazine [Prochlorperazine] Allergy (Mild, Verified 12/06/15 00:35) Rash prochlorperazine edisylate [From Compazine] Allergy (Verified 12/06/15 00:35) Unknown ketorolac tromethamine [From Toradol] Adverse Reaction (Intermediate, Verified 12/06/15 00:35) anxiety prochlorperazine maleate [From Compazine] Adverse Reaction (Intermediate, Verified 12/06/15 00:35) Hives NSAIDS (Non-Steroidal Anti-Inflamma Adverse Reaction (Mild, Verified 12/06/15 00:35) Nausea/Vomiting Home Medications: Albuterol Sulfate [Proair Hfa] 2 puff IH DAILYPRN PRN 01/20/20 Apixaban [Eliquis *] 5 mg PO BID 01/20/20 Budesonide/Formoterol Fumarate [Symbicort 160-4.5 Mcg Inhaler] 2 puff IH BIDP PRN 01/20/20 Codeine/APAP [Tylenol #3*] 1 tab PO TIDP PRN 01/20/20 Furosemide [Lasix*] 1 tab PO DAILYPRN PRN 01/20/20 LORazepam [Lorazepam] 1 tab PO BID 01/20/20 Metoprolol Tartrate [Lopressor*] 1 tab PO BID 01/20/20 Potassium Chloride [K-Dur] 1 tab PO DAILY 01/20/20 Promethazine Tab [Phenergan*] 1 tab PO BIDP PRN 01/20/20 Sertraline [Zoloft*] 1 tab PO BID 01/20/20 Topiramate [Topamax*] 50 mg PO BID 01/20/20 Zolpidem Tartrate [Ambien*] 10 mg PO BEDTIME 01/20/20 buPROPion HCL [Wellbutrin*] 200 mg PO BID 01/20/20 hydrOXYzine HCL [Atarax] 1 tab PO BID 01/20/20 hydrOXYzine HCL [Atarax] 100 mg PO BEDTIME 01/20/20 methocarbamoL [Methocarbamol] 1 tab PO BID 01/20/20 Atorvastatin Calcium [Lipitor] 1 tab PO BEDTIME #30 tab 01/25/20 Clopidogrel Bisulfate [Plavix] 75 mg PO DAILY #30 tablet 01/25/20 Omeprazole 40 mg PO DAILY 04/18/20 Quetiapine [Seroquel] 50 mg PO QID 04/18/20 Review of Systems 10-point ROS is otherwise unremarkable Cardiovascular: Chest Pain <Agustin Huynh - Last Filed: 04/18/20 02:56> Physical Examination - Physical Exam General: Alert, In no apparent distress, Oriented x3 HEENT: Atraumatic, Normocephalic, PERRLA, Mucous membr. moist/pink Neck: Supple Respiratory: Clear to auscultation bilaterally, Normal air movement Cardiovascular: No edema, Normal pulses, Regular rate/rhythm, Normal S1 S2 Capillary refill: <2 Seconds Gastrointestinal: Normal bowel sounds, Soft and benign, No tenderness, No masses, No rebound, No guarding Musculoskeletal: No contractures, No erythema, No tenderness Integumentary: No significant lesion Neurological: Other (slurred speech, left-sided weakness) - Studies Laboratory Data (last 24 hrs) 04/18/20 00:30: PT 13.7 H, INR 1.16 04/18/20 00:30: WBC 17.7 H, Hgb 12.5, Hct 38.4, Plt Count 75 L 04/18/20 00:30: Sodium 136, Potassium 5.5 H, BUN 24 H, Creatinine 1.21, Glucose 106, Magnesium 2.0, Total Bilirubin 0.5, AST 49 H, ALT 82 H, Alkaline Phosphatase 238 H <Agustin Huynh - Last Filed: 04/18/20 02:56> - Studies Laboratory Data (last 24 hrs) 04/18/20 00:30: PT 13.7 H, INR 1.16 04/18/20 00:30: WBC 17.7 H, Hgb 12.5, Hct 38.4, Plt Count 75 L 04/18/20 00:30: Sodium 136, Potassium 5.5 H, BUN 24 H, Creatinine 1.21, Glucose 106, Magnesium 2.0, Total Bilirubin 0.5, AST 49 H, ALT 82 H, Alkaline Phosphatase 238 H <Berhane Mccormick - Last Filed: 04/18/20 14:33> Assessment and Plan - Plan Assessment Chest pain rule out ACS status post CABG Leukocytosis Hyperkalemia Elevated aminotransferase levels 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 Will obtain serial troponins. Cardiology has been consulted. Patient has had a recent echocardiogram. Will continue patient's home medications including Eliquis and statin. Blood pressure low at this time, will hold off on any beta-mamie therapy. Continue with daily aspirin. Appreciate further input from cardiology. Leukocytosis: No source of infection identified in the emergency department. Patient denies any fever, chills, pain, urinary symptoms, GI symptoms, cough. Blood and urine cultures obtained in the emergency department. Chest CT negative for any acute findings. Will hydrate patient and recheck labs. Hyperkalemia: Potassium level 5.5 on chemistry obtained in the emergency department. This could be caused hemolysis obtaining specimen. No EKG changes noted at this time. Will recheck potassium. Elevated aminotransferase levels: Patient's AST/ALT/ALK slightly elevated. Patient has had these lab findings during previous admissions with no acute findings. Will continue to monitor and recommend outpatient follow up. 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 Hypertension: Hold all blood pressure medications at this time as patient is slightly hypotensive. Hyperlipidemia: Obtain and continue patient's home medications. Depression with anxiety: Obtain and continue patient's home medications. PTSD:Obtain and continue patient's home medications. Discharge Plan: Home Plan to discharge in: 24 Hours - Advance Directives Does patient have a Living Will: No Does patient have a Durable POA for Healthcare: No - Code Status/Comfort Care Code Status Assessed: Yes (Patient is full code) Critical Care: No Time Spent Managing Pts Care (In Minutes): 55 <Agustin Huynh - Last Filed: 04/18/20 02:56> Physician Review Additional Text: Patient seen and examined, agree with plan as outlined above. Updates: Patient reporting feeling much better this afternoon, chest pain resolved. She was seen by cardiology, no intervention at this time. She reports completely asymptomatic from bacteruria, but stats she has had "bad UTIs" like this in the past - where she had elevated WBCs and asymptomatic bacteuria "was the only thing they found" Hypotension -pt remains hypotensive, reports it gets "this low" at home, even down to 70s/40s at home. She is asymptomatic here. -received a small 250ml NS bolus this morning with minimal to no response. -IVF @100 increased to 150 this afternoon, will monitor fluid balance carefully troponin increased this afternoon 0.03 -> 0.18, continue to trend -possibly increasing due to ?demand ischemia in setting of low BP -she will need to remain in hospital overnight to further evaluate and treat possible dc home tomorrow if improves <Berhane Mccormick - Last Filed: 04/18/20 14:33>
[2020-04-18 03:38] LABS: Urine Culture Reflex Order NOT NEEDED
[2020-04-18 03:41] LABS: Urine Bacteria 20-50 /HPF (<20); Urine RBC NONE SEEN /HPF (NONE SEEN); Urine Urothelial Cells <5 /HPF (NONE SEEN)
[2020-04-18 03:42] LABS: Urine Blood NEGATIVE (NEG); Urine Glucose NEGATIVE (NEG); Urine Protein NEGATIVE (NEG); Urine pH 5.5 (5.0-7.0)
[2020-04-18] MEDS ORDERED: ONDANSETRON 4 MG/2 ML VIAL IV PRN (03:58)
[2020-04-18] MEDS ORDERED: ACETAMINOPHEN 500 MG TAB PO PRN (03:58)
[2020-04-18] MEDS: NA CHLORIDE 0.9% 1,000 ML IV SCH ×5 (04:30→23:07)
[2020-04-18 05:35] VITALS: BMI 27.1
[2020-04-18] MEDS: CEFTRIAXONE/SWI 1gm 1 GM/10 ML SYR IV SCH (06:01)
--- NOTE | 2020-04-18 06:55 | RAD REPORT ---
EXAM DESCRIPTION: RAD - Chest Single View - 04/18/2020 12:10 am CLINICAL HISTORY: CHEST PAIN COMPARISON: January 23, 2020 TECHNIQUE: AP portable chest image was obtained 04/18/2020 12:10 am . FINDINGS: Lungs are clear. Heart and vasculature are normal. No measurable pleural effusion and no p neumothorax. No acute bony abnormality seen. No acute aortic findings suspected. IMPRESSION: No acute cardiopulmonary process.
--- NOTE | 2020-04-18 07:01 | EKG ---
Test Date: 2020-04-17 Test Time: 23:36:01 Brake Operator Sheet Metal: SNEHA MEASUREMENT RESULTS: Intervals: Rate: 52 DC: 162 QRSD: 110 QT: 418 QTc: 388 [place]: P: 52 DC: 162 QRS: 55 T: 74 INTERPRETIVE STATEMENTS: Sinus bradycardia Low voltage QRS Incomplete right bundle branch block Borderline ECG Compared to ECG 01/21/2020 12:10:27 Incomplete right bundle-branch block now present Sinus rhythm no longer present Right bundle-branch block no longer present Electronically Signed On 04-18-20 07:00:05 CDT by Bora Soto
[2020-04-18] MEDS ORDERED: NA CHLORIDE 0.9% 250 ML IV ONE (07:54)
[2020-04-18 07:59] LABS: CKMB Creatine Kinase MB < 1.0 ng/mL (0.3-3.6); Troponin I 0.03 ng/mL (0.0-0.045)
[2020-04-18 08:19] LABS: Absolute Lymphocytes (CBC) 4.1 K/uL (0.7-4.9); Basophils % 0.6 % (0-1.3); Hematocrit 34.1 % (36.0-45.0); Lymphocytes % 26.4 % (15.3-44.8); MPV 7.2 fL (7.6-11.3); RBC Red Blood Cell Count 4.34 M/uL (3.86-4.86)
[2020-04-18] MEDS: APIXABAN 5 MG TABLET PO SCH ×2 (08:26→20:31)
[2020-04-18] MEDS: CLOPIDOGREL 75 MG TABLET PO SCH (08:26)
[2020-04-18 08:53] LABS: Blood Morphology Comment NOT SEEN (NOT SEEN); Platelet Estimate DECR
[2020-04-18] MEDS ORDERED: ASPIRIN EC 81 MG TAB PO SCH (09:00)
[2020-04-18 11:58] LABS: CKMB Creatine Kinase MB < 1.0 ng/mL (0.3-3.6); Troponin I 0.18 ng/mL (0.0-0.045)
[2020-04-18 13:00] LABS: BUN Blood Urea Nitrogen 16 mg/dL (7-18); Bicarbonate 24 mmol/L (21-32); Glucose Level 81 mg/dL (74-106); Sodium Level 142 mmol/L (136-145)
[2020-04-18 13:01] LABS: Potassium 4.4 mmol/L (3.5-5.1)
--- NOTE | 2020-04-18 14:15 | CON ---
Date of Consultation: 04/18/2020 Reason For Consultation: Chest pain. History Of Present Illness: Ms. Whyte is a 54-year-old woman with history of coronary artery diseas e, status post recent angioplasty and stent of the ostium of the RCA by Dr. Fatima. She has a histor y of hypertension, dyslipidemia, CVA, and seizures. She basically came in with nonspecific left late ral wall chest pain, not feeling well, hypotensive with blood pressure of 90/54. She was slightly br adycardic. Has had some nausea, chills, no fever. Feeling weak all over. She was found to have a w gisele count of 17,000. Her BNP was 638. Her EKG and troponin were unremarkable. Denied PND, orthopn ea, pedal edema, palpitations, or syncope. Allergies: SHE IS ALLERGIC TO NEURONTIN. Review of Systems: Negative. Social History: Negative. Family History: Noncontributory. Medications: At home include inhalers, Eliquis, Lipitor, metoprolol, Plavix, and Lasix. Physical Examination: Vital Signs: Blood pressure was 90/54. She was not having any chest pain when I saw her, she was in sinus rhythm, afebrile. HEENT: Negative. Neck: Supple. No bruit. Chest: Clear. Cardiac: Revealed a regular rhythm and rate. No murmurs, gallops, or rubs. Abdomen: Benign. Extremities: Revealed no clubbing, cyanosis, or edema. Diagnostic Data: As stated earlier. Impression And Plan: 1.Atypical chest pain. 2.Hypotension with an elevated white count, possible sepsis. 3.Coronary artery disease, status post right coronary artery stent in January of 2020 with a normal EKG and troponin. 4.History of hypertension. 5.Dyslipidemia. 6.History of cerebrovascular accident. The patient takes Eliquis. 7.History of seizure disorders. My suggestion is to hold her metoprolol, hold her Lasix, hydrate her aggressively. Continue Plavix a nd Eliquis. No need for aspirin. Continue inhaler. Continue Lipitor. Start antibiotic. Get an ec hocardiogram later. She hopefully will improve with hydration and antibiotics. No need for further cardiac workup at this point from an invasive standpoint. Definitely, no need to do any heart cathet erization today. NB/MODL Voice ID: [id number] Report ID: [id number]
[2020-04-18] MEDS ORDERED: ALBUTEROL INHALER 60 PUFF/8 GM IH PRN (14:26)
[2020-04-18] MEDS ORDERED: PROMETHAZINE 25 MG TABLET PO PRN (14:26)
[2020-04-18 15:40] LABS: CKMB Creatine Kinase MB 1.4 ng/mL (0.3-3.6); Troponin I 0.25 ng/mL (0.0-0.045)
[2020-04-18] MEDS: hydrOXYzine HCL 25 MG TAB PO SCH (17:08)
[2020-04-18] MEDS: QUETIAPINE 25 MG TAB PO SCH ×2 (17:08→20:30)
--- NOTE | 2020-04-18 19:06 | RAD REPORT ---
EXAM DESCRIPTION: CT - Thorax Wo Dennis - 04/18/2020 6:39 am CLINICAL HISTORY: Chest pain COMPARISON: None. TECHNIQUE: CT CHEST WITHOUT IV CONTRAST on 04/18/2020 1:15 AM CDT This exam was performed according to our departmental dose-optimization program, which includes autom ated exposure control, adjustment of the mA and/or kV according to patient size and/or use of iterati ve reconstruction technique. FINDINGS: The heart is normal in size. Sternotomy was performed. There is no pericardial effusion. I ntrathoracic lymph nodes are not enlarged. There is no pleural effusion, pleural thickening or pneumothorax. Central airways are patent. There i s a 3 mm lateral segment right lower lobe pulmonary nodule. There are no acute abnormalities within the limited images of the upper abdomen. There are no acute osseous findings. No suspicious bony lesions. IMPRESSION: No pneumonia. Electronically signed by: Omar Ordonez MD 04/18/2020 2:09 AM CDT Due to temporary technical issues with the PACS/Fluency reporting system, reports are being signed by the in house radiologist without review as a courtesy to ensure prompt reporting. The interpreting r adiologist is fully responsible for the content of the report.
[2020-04-18] MEDS: LORAZEPAM 1 MG TABLET PO SCH (20:30)
[2020-04-18] MEDS: buPROPion HCL 100 MG TAB PO SCH (20:30)
[2020-04-18] MEDS: TOPIRAMATE 25 MG TAB PO SCH (20:30)
[2020-04-18] MEDS: SERTRALINE HCL 100 MG TAB PO SCH (20:31)
[2020-04-18] MEDS: methocarbamoL 500 MG TAB PO SCH (20:31)
[2020-04-18] MEDS: DULERA 200/5 (MOMETASONE/FORMOTEROL) INHALER IH SCH (20:33)
[2020-04-18] MEDS ORDERED: HYDROXYZINE HCL 100 MG PO SCH (21:00)
[2020-04-18] MEDS ORDERED: LORAZEPAM PO SCH (21:00)
[2020-04-18] MEDS ORDERED: hydrOXYzine HCL 25 MG TAB PO SCH (21:00)
[2020-04-18] MEDS ORDERED: HOME MED 1 EA UNK (Hydroxyzine Hcl [Atarax] 1 TAB) PO SCH (21:00)
[2020-04-18] MEDS ORDERED: ZOLPIDEM TARTRATE 10 MG TABLET PO SCH (21:00)
[2020-04-18] MEDS ORDERED: ATORVASTATIN 80 MG TAB PO SCH (21:00)
[2020-04-19 04:05] LABS: Absolute Lymphocytes (CBC) 4.3 K/uL (0.7-4.9); Basophils % 0.9 % (0-1.3); Hematocrit 32.6 % (36.0-45.0); Lymphocytes % 34.3 % (15.3-44.8); MPV 8.5 fL (7.6-11.3); RBC Red Blood Cell Count 4.11 M/uL (3.86-4.86)
[2020-04-19 04:47] LABS: BUN Blood Urea Nitrogen 10 mg/dL (7-18); Bicarbonate 24 mmol/L (21-32); Glucose Level 79 mg/dL (74-106); Potassium 4.6 mmol/L (3.5-5.1); Sodium Level 144 mmol/L (136-145)
[2020-04-19 04:50] LABS: Blood Morphology Comment NOT SEEN (NOT SEEN); Platelet Estimate DECR; White Blood Cell Scan OK
[2020-04-19] MEDS: NA CHLORIDE 0.9% 1,000 ML IV SCH (06:02)
[2020-04-19] MEDS: CEFTRIAXONE/SWI 1gm 1 GM/10 ML SYR IV SCH (06:02)
[2020-04-19] MEDS ORDERED: PANTOPRAZOLE 40MG TABLET PO SCH (07:30)
[2020-04-19] MEDS ORDERED: HOME MED 1 EA UNK (Omeprazole [Omeprazole] 40 MG) PO SCH (09:00)
[2020-04-19] MEDS: CLOPIDOGREL 75 MG TABLET PO SCH (09:29)
[2020-04-19] MEDS: TOPIRAMATE 25 MG TAB PO SCH (09:29)
[2020-04-19] MEDS: hydrOXYzine HCL 25 MG TAB PO SCH (09:29)
[2020-04-19] MEDS: LORAZEPAM 1 MG TABLET PO SCH (09:29)
[2020-04-19] MEDS: SERTRALINE HCL 100 MG TAB PO SCH (09:29)
[2020-04-19] MEDS: APIXABAN 5 MG TABLET PO SCH (09:30)
[2020-04-19] MEDS: QUETIAPINE 25 MG TAB PO SCH ×2 (09:30→14:09)
[2020-04-19] MEDS: methocarbamoL 500 MG TAB PO SCH (09:31)
[2020-04-19] MEDS: buPROPion HCL 100 MG TAB PO SCH (09:32)
[2020-04-19] MEDS: DULERA 200/5 (MOMETASONE/FORMOTEROL) INHALER IH SCH (10:28)
[2020-04-19 11:57] VITALS: BP 117/58; TEMP 97.9
--- NOTE | 2020-04-19 12:27 | EKG ---
Test Date: 2020-04-18 Test Time: 05:12:07 Sales Program Manager: RT MEASUREMENT RESULTS: Intervals: Rate: 56 GA: 164 QRSD: 108 QT: 454 QTc: 438 [place]: P: 80 GA: 164 QRS: 55 T: 59 INTERPRETIVE STATEMENTS: Sinus bradycardia Right bundle branch block Abnormal ECG Compared to ECG 04/17/2020 23:36:01 Right bundle-branch block now present Incomplete right bundle-branch block no longer present Electronically Signed On 04-19-20 12:23:08 CDT by Bora Soto
[2020-04-19 12:41] VITALS: O2SAT 98
--- NOTE | 2020-04-19 17:11 | P.DS ---
Admission Date: 04/18/20 Discharge Date: 04/19/20 Disposition: ROUTINE DISCHARGE Discharge Condition: GOOD Reason for Admission: Chest pain Consultations: Cardiology Procedures: CXR 04/17/2020: No acute cardiopulmonary process CT chest 04/18/2020: No acute pathology/abnormalities UA with positive leukocyte esterase, positive bacteria. Problem list Chest pain, rule out ACS status post CABG Leukocytosis Hyperkalemia Elevated aminotransferase levels Antiphospholipid syndrome with history of CVA on chronic anticoagulation therapy Hypertension HLD. Depression PTSD Brief History of Present Illness: 54-year-old female with history of anti phospholipid syndrome, CVA, CAD status post CABG, depression, PTSD, hyperlipidemia, presented to the emergency department with chief complaint of chest pain. Patient reported that she was resting in bed with the chest pain began. Patient reports that the pain was pressure-like and substernal radiating to left arm. Patient denies any associated signs or symptoms. Patient reports that pain is similar to last time when she was admitted for NSTEMI. Patient had CABG in June 2019, echocardiogram showing ejection fraction of 68% in January of 2020 and heart catheterization with stenting of the RCA in January 2020. During her evaluation in the emergency department patient was also found to have leukocytosis with a white blood cell count of 17. Patient denies any abdominal pain, no palpitation did tenderness. Patient has had a cholecystectomy and appendectomy. Patient without any shortness of breath or cough. Patient did have CT scan of the chest which did not reveal any other source of infection. Urine obtained in the emergency department shows 1+ leukocytes, has been sent for microscopic evaluation. Blood cultures and urine cultures obtained. Hospital Course: Patient was admitted for rule out ACS, and treatment of a UTI. Her chest pain resolved this prior to arrival to the medical floor. Her troponins were trended (0.03-0.18-0.25-0.15) she was noted to be hypotensive and received/responded to IV fluid hydration. On day of discharge, patient's was feeling back to her baseline, cardiology and recommended no further intervention at this time. Vital Signs/Physical Exam: Temp Pulse Resp BP Pulse Ox 97.9 F 79 16 117/58 L 98 04/19/20 11:56 04/19/20 11:56 04/19/20 11:56 04/19/20 11:56 04/19/20 11:56 General: Alert, In no apparent distress HEENT: Atraumatic, PERRLA, EOMI Neck: Supple, JVD not distended Respiratory: Clear to auscultation bilaterally, Normal air movement Cardiovascular: Regular rate/rhythm, Normal S1 S2 Gastrointestinal: Normal bowel sounds, No tenderness Musculoskeletal: No tenderness Integumentary: No rashes Neurological: Normal speech, Normal tone, Normal affect Laboratory Data at Discharge: WBC 12.6 K/uL (4.3-10.9) H D 04/19/20 03:29 Hgb 10.7 g/dL (12.0-15.0) L 04/19/20 03:29 Hct 32.6 % (36.0-45.0) L 04/19/20 03:29 Plt Count 59 K/uL (152-406) L 04/19/20 03:29 PT 13.7 SECONDS (9.5-12.5) H 04/18/20 00:30 INR 1.16 04/18/20 00:30 Sodium 144 mmol/L (136-145) 04/19/20 03:29 Potassium 4.6 mmol/L (3.5-5.1) 04/19/20 03:29 BUN 10 mg/dL (7-18) 04/19/20 03:29 Creatinine 0.58 mg/dL (0.55-1.3) 04/19/20 03:29 Glucose 79 mg/dL (74-106) 04/19/20 03:29 Magnesium 2.0 mg/dL (1.8-2.4) 04/18/20 00:30 Total Bilirubin 0.5 mg/dL (0.2-1.0) 04/18/20 00:30 AST 49 U/L (15-37) H 04/18/20 00:30 ALT 82 U/L (12-78) H 04/18/20 00:30 Alkaline Phosphatase 238 U/L (45-117) H 04/18/20 00:30 Troponin I 0.15 ng/mL (0.0-0.045) H 04/19/20 07:08 Home Medications: Albuterol Sulfate [Proair Hfa] 2 puff IH DAILYPRN PRN 01/20/20 Apixaban [Eliquis *] 5 mg PO BID 01/20/20 Budesonide/Formoterol Fumarate [Symbicort 160-4.5 Mcg Inhaler] 2 puff IH BIDP PRN 01/20/20 Codeine/APAP [Tylenol #3*] 1 tab PO TIDP PRN 01/20/20 Furosemide [Lasix*] 1 tab PO DAILYPRN PRN 01/20/20 LORazepam [Lorazepam] 1 tab PO BID 01/20/20 Metoprolol Tartrate [Lopressor*] 1 tab PO BID 01/20/20 Potassium Chloride [K-Dur] 1 tab PO DAILY 01/20/20 Promethazine Tab [Phenergan*] 1 tab PO BIDP PRN 01/20/20 Sertraline [Zoloft*] 1 tab PO BID 01/20/20 Topiramate [Topamax*] 50 mg PO BID 01/20/20 Zolpidem Tartrate [Ambien*] 10 mg PO BEDTIME 01/20/20 buPROPion HCL [Wellbutrin*] 200 mg PO BID 01/20/20 hydrOXYzine HCL [Atarax] 1 tab PO BID 01/20/20 hydrOXYzine HCL [Atarax] 100 mg PO BEDTIME 01/20/20 methocarbamoL [Methocarbamol] 1 tab PO BID 01/20/20 Atorvastatin Calcium [Lipitor] 1 tab PO BEDTIME #30 tab 01/25/20 Clopidogrel Bisulfate [Plavix*] 75 mg PO DAILY #30 tablet 01/25/20 Omeprazole 40 mg PO DAILY 04/18/20 Quetiapine [Seroquel*] 50 mg PO QID 04/18/20 Cefdinir [Cefdinir*] 300 mg PO BID 5 Days #10 cap 04/19/20 New Medications: Cefdinir [Cefdinir*] 300 mg PO BID 5 Days #10 cap Patient Discharge Instructions: follow up with PCP within 1 week. Follow up with Cardiology. Diet: AHA Activity: Ad tiarra Time spent managing pt's care (in minutes): 35
== END 2020-04-19 15:12 | disposition home or self-care (01) ==
LOC: ER 23:28 → ERHOLD 04-18 02:59 → 4TH 04-18 04:06
PROVIDERS: ADMIT Hospitalist; ATTEND Hospitalist
DX: R07.89 Other chest pain (principal); I95.9 Hypotension, unspecified; D72.829 Elevated white blood cell count, unspecified; E87.5 Hyperkalemia; R74.0 Nonspecific elevation of levels of transaminase and lactic acid dehydrogenase [LDH]; D68.61 Antiphospholipid syndrome; I10 Essential (primary) hypertension; I25.10 Atherosclerotic heart disease of native coronary artery without angina pectoris; E78.5 Hyperlipidemia, unspecified; F41.8 Other specified anxiety disorders; F43.10 Post-traumatic stress disorder, unspecified; Z20.828 Contact with and (suspected) exposure to other viral communicable diseases; I45.10 Unspecified right bundle-branch block; R00.1 Bradycardia, unspecified; R94.31 Abnormal electrocardiogram [ECG] [EKG]; I25.2 Old myocardial infarction; K21.9 Gastro-esophageal reflux disease without esophagitis; Z79.01 Long term (current) use of anticoagulants; Z79.51 Long term (current) use of inhaled steroids; Z79.02 Long term (current) use of antithrombotics/antiplatelets; Z79.899 Other long term (current) drug therapy; Z95.1 Presence of aortocoronary bypass graft; Z95.5 Presence of coronary angioplasty implant and graft; Z86.73 Personal history of transient ischemic attack (TIA), and cerebral infarction without residual deficits; Z87.891 Personal history of nicotine dependence; Z86.69 Personal history of other diseases of the nervous system and sense organs
CPT/HCPCS: 96365; 93005 ×2; 87040 ×2; 87088; 85025 ×3; 87086; 80048 ×3; 36415 ×2; 83735; 85610; 80076; 83605; 84484 ×5; 82553 ×3; 84145; 83880; 71250; 71045; 96375; 99285; U0003; J7606; J0696 ×2; G0378 ×4; J7030 ×5; J2405; 81003; 81015; J7050

== ENCOUNTER 2020-04-29 22:14 | Emergency (ER) | payer MEDICAID ==
--- OUTSIDE RECORDS SUMMARY | 2020-04-29 22:24 | XMS REPORT | Continuity of Care Document ---
:1965 Author Organization [employer] Critical [employer] Care Team Providers Name Role Phone [employer] Unavailable Un available Problems Problem Status Onset Classification Date Comments Sourc e Date Reported STROKE Active 03/09/[address] Center DYSPNEA Active 03/09/[address] ENCEPHALITIS/SEIZUR Active 03/16/20 [facility] ES 15 [facility] NON-HEMORRAGHIC Active 10/26/19 [facility] [place] STROKE 15 Medical Center ISCHEMIC CVA Active 11/13/19 [facility] s 14 [facility] Center WEAKNESS Active 11/13/[address] Center AMS Active 05/08/[address] Center CEREBRAL VASCULAR Active 07/19/20 [facility] ACCIDENT Medical Center Anxiety (finding) Resolved Problem 03/14/[address] [facility] Chronic obstructive Active Problem 03/14/2019 [facility] lung disease Medical (disorder) Center Cerebrovascular Active Problem 03/14/2019 [facility] accident (disorder) [facility] Center Depression - motion Active Problem 03/25/2015 [facility] (qualifier value) [facility] Asthenia (finding) Active Problem 03/14/2019 [facility] Hypertensive Active Problem 03/14/2019 [place] disorder, systemic M edical arterial (disorder) Center Migraine (disorder) Active Problem 03/14/2019 [facility] Anxiety Active Problem 05/14/2013 [facility] COPD Active Problem 05/14/2013 [facility] Depression Active Problem 05/14/2013 [facility] General weakness Active Problem 05/14/2013 [facility] Hypertension Active Problem 05/14/2013 [place] [facility] Center Migraine Active Problem 05/14/2013 [facility] Stroke Active Problem 05/14/2013 [facility] Antiphospholipid Resolved Problem 03/14/2019 [facility] syndrome (disorder) Medical Center Transient ischemic Resolved Problem 03/14/2019 [facility] attack (disorder) Wy dical Center Gastroesophageal Resolved Problem 03/14/2019 [facility] reflux disease Medic al (disorder) Center Hyperlipidemia Resolved Problem 03/14/2019 [facility] [place] (disorder) Medical Center Nausea (finding) Resolved Problem 03/14/2019 [facility] Morbid obesity Active Problem 03/14/2019 [place] ([place]order[place] [facility] CVA Active [facility] ALTERED [place]ENTAL [place] STATUS [facility] MALAISE AND FATIGUE Active [facility] NEC [facility] FEBRILE CONVULSIONS Active [facility] NOS [facility] DYSPNEA, Active [facility] UNSPECIFIED [facility] Medications Medication Details Route Status Patient Ordering Order Source Instructions Provider Date lisinopril 10 mg 10 mg = 1 tab, Active 03/12[facility] oral tablet PO, Daily, # 2019 Medical 30 tab, 2 Center Refill(s) aripiprazole 5 5 mg = 1 tab, Active 03/12[facility] MG Oral Tablet PO, Bedtime, # 2019 Me dical [Abilify] 30 tab, 0 Center Refill(s) buPROPion 200 200 mg = 1 Active [facility] [place] mg/12 hours (SR) tab, PO, BID, 2019 M edical oral tablet, # 60 tab, 0 Center extended release Refill(s) carvedilol 3.125 3.125 mg = 1 Active [facility] mg oral tablet tab, PO, BID, 2019 Med ical # 60 tab, 0 Center Refill(s) atorvastatin 80 80 mg = 1 tab, Active 03/12/ H [place] mg oral tablet PO, Bedtime, # 2019 Me dical 30 tab, 0 Center Refill(s) LORazepam 2 mg 2 mg = 1 tab, Inactive 03/12[facility] oral tablet PO, BID, # 60 2019 Medica l tab, 0 Center Refill(s) cyclobenzaprine 10 mg = 1 tab, Active H [place] 10 mg oral PO, BID, # 30 2019 Medical tablet tab, 0 Center Refill(s) triazolam 0.25 0.5 mg = 2 Active [facility] [place] mg oral tablet tab, PO, 2019 Medical Bedtime, PRN Center Sleep, # 60 tab, 0 Refill(s) Potassium Notes: (Same Inactive [facility] Chloride as: K-Dur 20) 2019 Medical "Do Not Crush" Center Give with food and full glass of water For patients unable to swallow tablet, dissolve in one half glass of water. Allow about 2 minutes for the tablets to disintegrate. Stir before giving to prepare slurry and administer. Please exclude Patient’ s with feeding tube less than 14 Egyptian (Dobhoff, J-tube etc) and pediatric and patients. Potassium Notes: (Same Inactive [facility] Chloride as: K-Dur 20) 2019 Medical "Do Not Crush" Center Give with food and full glass of water For patients unable to swallow tablet, dissolve in one half glass of water. Allow about 2 minutes for the tablets to disintegrate. Stir before giving to prepare slurry and administer. Please exclude Patient’ s with feeding tube less than 14 [place] (Dobhoff, J-tube etc) and pediatric and patients. potassium Notes: (Same Inactive [facility] chloride as: Potassium 2019 [facility] Chloride) Center Sertraline Notes: (Same No Longer [place] as: Zoloft) Active 2019 Medical [place] Topamax Notes: (Same No Longer [facility] As: Topamax) Active 2019 Medical "Do Not Crush" Center Potassium 20 mEq, Route: Inactive [place] Chloride PO, ONCE, 2019 Medical Dosing Weight Center 99.318, kg, Start date: 03/11/19 8:46:00 CDT, Stop date: 03/11/19 8:46:00 CDT Calcium Notes: WASTE: Inactive [facility] Gluconate F/P - Sink; E [facility] Tr[facility] Potassium Notes: (Same Inactive [facility] Chloride 1.33 as: Potassium 2019 Medi see MEQ/ML Oral Chloride) Center Solution Melatonin 3 MG Notes: (Same No Longer [facility] Extended Release as: Melatonin) Active 2019 Medical Tablet Center atorvastatin Notes: Same as No Longer [facility] Lipitor Active 2019 Medical [place] Lisinopril Notes: (Same No Longer [place] as: Prinivil, Active 2019 [facility] Zestril) Center heparin Notes: porcine [place] heparin Active 2019 [facility] [place] potassium Notes: (Same Inactive [facility] phosphate + as: K 2019 Medical [...] 03/10/19 14:09:00 CDT potassium Notes: (Same Inactive [place] chloride as: KCL) 2019 Medical Infuse no Center faster than 10 mEq/hr if given peripherally. Folic Acid Notes: (Same No Longer [place] as: Folvite) Active 2019 Medical Center Thiamine Notes: (Same No Longer [place] As: Vitamin Active 2019 [facility] B1) Center multivitamin Notes: (Same No [...] Medical Center Albuterol 0.833 Notes: (Same Inactive [facility] MG/ML / as: Duoneb) 2019 Medical Ipratropium Center [place] 0.167 MG/ML Inhalant Solution Potassium Notes: (Same Inactive [facility] Chloride as: KCL) 2019 Medical Infuse no Center faster than 10 mEq/hr if given peripherally. Acetaminophen 100.4 F, No Longer [place] as Start date: Active 2019 Medical 03/09/19 [place] 22:02:00 CDT, Duration: 30 day, Stop date: 04/08/19 22:01:00 CDT, 0 Ondansetron Notes: [place] MEDICATION Active 2019 Medical WASTE Center Product Size: 4 mg Product Wasted: ___ mg Dextrose 50% 12.5 gm, 25 [place] Syringe mL, Route: Active 2019 [facility] IVP, Drug Center Form: INJ, Dosing [...] CDT, 0 Iohexol 100 mL, Route: Inactive [facility] IVP, Drug 2019 Medical Form: [facility] [place] Dosing Weight 97.5, kg, ONCALL, STAT, Start date: 03/09/19 19:24:00 CDT, Duration: 1 doses or times, Dose = 2.2ml/kg, Max dose = 100ml -- "To be infused by Radiology Staff ONLY" Iohexol 82 mL, Route: Inactive [facility] IVP, Drug 2019 Medical Form: [facility] [place] Dosing Weight 97.5, kg, ONCALL, STAT, Start date: 03/09/19 19:06:00 CDT, Duration: 1 doses or times, Dose = 2.2ml/kg, Max dose = 100ml -- "To be infused by Radiology Staff ONLY" heparin additive Notes: Total No Longer [facility] 25,000 unit [12 Concentration Active 2019 Wy dical unit/kg/hr] + = 50 unit/mL; Cent [...] Heparin - one 4,000 unit, 4 Inactive [facility] time bolus for mL, Route: 2019 [...] 30 day, 0 Plavix Notes: (Same Inactive [facility] as: Plavix) 2019 [facility] Magnesium Notes: WASTE: [facility] Sulf[facility]/P - Sink; E 2019 [facility] Trash Bin potassium 40 mEq, 2 tab, Inactive [facility] as chloride 20 mEq Route: PO, 2019 Medic al oral tablet, Drug form: Center extended release ERTAB, ONCE, Dosing Weight 97.5, kg, Priority: STAT, Start date: 03/09/19 17:41:00 CDT, Stop date: 03/09/19 17:41:00 CDT, 0 Isolyte S PH-7.4 Notes: (Same Inactive [facility] IV as: Isolyte S 2019 Medical PH 7.4) Center Acetaminophen Notes: Do not Inactive [facility] exceed 4 2015 Medical gm/day. (Same Center as: Tylenol) rivaroxaban 20 20 mg = 1 tab, Active [place] MG Oral Tablet PO, QPM, # 30 2015 Med ical [Xarelto] tab, 0 Center Refill(s) lisinopril 20 mg 20 mg = 1 tab, Active [facility] oral tablet PO, BID, # 60 2015 Medica l tab, 1 Center Refill(s) valACYclovir 1 g 1 gm = 1 tab, Active [facility] oral tablet PO, Q8H, X 14 2015 Medica l day, # 42 tab, Center 0 Refill(s) atorvastatin 80 80 mg = 1 tab, Active [place] mg oral tablet PO, Bedtime, # 2015 Me dical 30 tab, 1 Center Refill(s) Levetiracetam 1,000 mg = 1 Active [place] 1000 MG Oral tab, PO, BID, 2015 Medic al Tablet # 60 tab, 2 Center Refill(s) Rocephin 1 gm, Route: Inactive [place] IVPB, Drug 2014 Medical form: PDR/INJ, Center [id number], Dosing Weight 110.3, kg, Start date: 03/22/15 8:00:00, Duration: 30 day, Stop date: 04/20/15 8:00:00 Valtrex Notes: (Same No Longer [facility] As: Valtrex) Active 2014 [facility] acyclovir + Notes: (Same [place] Longer [place] Sodium Chloride as: Zovirax) Active 2014 Med ical 0.9% IV 100 mL MEDICATION Ce nter WASTE Product Size: 500 mg Product Wasted: _0__ mg Magnesium Oxide Notes: (Same Inactive [facility] as: Mag-Ox 2014 Medical 400) Magnesium Center oxide [id number] elemental magnesium Dose=____mg magnesium oxide (___mg elemental magnesium) Potassium Notes: (Same Inactive [facility] Chloride 1.33 as: Potassium 2014 Medi see MEQ/ML Oral Chloride) Center Solution Lipitor Notes: Same [place]er [place] Lipitor Active [facility] Haloperidol Notes: (Same [place] as: Haldol) Active 2014 Medical [place] Sertraline Notes: (Same No Longer [place] as: Zoloft) Active 2014 [facility] pregabalin Notes: Same as [place] Longer [place] Lyrica Active 2014 [facility] Wellbutrin Notes: (Same No Longer [place] As: Active 2014 [facility] Wellbutrin) Center pantoprazole Notes: Tablet No Longer [place] should not be Active 2014 [facility] chewed or Center crushed. (Same as: Protonix) Keppra Notes: (Same No Longer [place] as:Keppra) Active 2014 [facility] Topamax Notes: (Same No Longer [place] As: Topamax) Active [address] [place] [address] potassium Notes: (Same Inactive [place] chloride as: Potassium 2014 [facility] Chloride) [place] heparin Notes: porcine No Longer a s heparin Active [address] [place] [address] Keppra + Sodium Notes: Same as No Longer [place] Chloride 0.9% IV Keppra Mix Active 2014 Med ical 100 mL with 100 mL Center NS, LR or D5W MEDICATION WASTE Product Size: 500 mg Product Wasted: ___ mg Lisinopril Notes: (Same No Longer [place] as: Prinivil, Active 2014 [facility] Zestril) [place] Hydralazine Notes: (Same [place] as: Active 2014 Medical Apresoline) [place] Push over 5 minutes Labetalol 10 mg, 2 mL, [place]er [place] Route: IVP, Active 2014 Medical Drug form: [place] INJ, Q15Min, Dosing Weight 110.3, kg, PRN Hypertension, Start date: 03/16/15 22:36:00, Duration: 30 day, Stop date: 04/15/15 22:35:00 Levetiracetam 1,000 mg, Inactive [place] 100 MG/ML Oral Route: [place], 2015 Medica l Solution Drug form: [place] [Keppra] SOLN, Q12H, Dosing Weight 110.3, kg, [...] Sodium 500 mg, IV, No Longer H [place] 100 mg/mL Q8H, 0 Active 2014 [facility] intravenous Refill(s) [place] solution haloperidol 2 mg 2 mg = 1 tab, No Longer [place] oral tablet PO, BID, 0 Active 2014 Medical Refill(s) [place] Folic Acid 1 MG 1 mg = 1 tab, No Longer [place] Oral Tablet PO, Daily, # Active 2015 [...] 0 Refill(s) NS w/K20 Special No Longer [place] Instructions: Active 2014 Medical 70 mls/hr Center atorvastatin 80 80 mg = 1 tab, No Longer [place] mg oral tablet PO, Bedtime, # Active 2015 Me dical 30 tab, 0 Center Refill(s) topiramate 50 MG 50 mg = 1 tab, Active [place] Oral Tablet PO, BID, # 60 2015 [...] 2 mg = 1 cap, No Longer [place] oral capsule PO, BID, 0 Active 2014 Medical Refill(s) Center acyclovir 500 mg IV, Q8H, 0 No Longer [place] intravenous Refill(s) Active 2014 Medical injection Center Methocarbamol 250 mg, PO, [place] Longer [place] BID, 0 Active 2014 Medical Refill(s) Center Acetaminophen 650 mg, PO, [place] Longer [place] PRN, 0 Active 2014 Medical Refill(s) Center lisinopril 20 mg 20 mg = 1 tab, No Longer [place] oral tablet PO, BID, 0 Active 2014 Medical Refill(s) Center pregabalin 50 mg 50 mg = 1 cap, Active [facility] oral capsule PO, BID, # 60 2015 Medic al cap, 1 Center Refill(s) cefTRIAXone 1 g 1 gm, IV, No Longer [place] injection Q12H, # 10 ea, Active 2014 Medical 0 Refill(s) Center Levofloxacin 500 mg, Route: No Longer [place] PO, Drug form: Active 2014 Medical TAB, [...] Medi see MG Oral Tablet Drug form: [place] [Ultram] TAB, Q8H, Dosing Weight 110.3, kg, [...] [place] As: Active 2014 Medical Wellbutrin) [place] Topamax Notes: (Same No Longer [place] As: Topamax) Active 2014 Medical "Do Not Crush" Center sennosides, SHELTER Notes: (Same No Longer H [place] as: [...] 2014 Medical Center Flumazenil Notes: (Same [facility] as: Romazicon) 2015 Medical Center Hydromorphone Notes: Same [place] as: Dilaudid 2014 [facility] Center Metoprolol Notes: (Same Inactive [place] [...] IV SET ONLY potassium Notes: (Same Inactive [facility] chloride as: Potassium 2014 Medical Chloride) [...] date: 10/28/14 18:32:00 Vancomycin 2001 mg: Inactive [facility] infuse over 2015 Medical 2.5 hours Center Vancomycin FOR IV SET ONLY Vancomycin 2001 mg: No Longer Oxana infuse over Active 2014 Medical 2.5 hours Center Vancomycin FOR IV SET ONLY Ativan 2 mg, Route: Inactive Oxana IV, ONCE, 2015 Medical Dosing Weight Center 110.3, kg, Start date: 10/28/14 13:49:00, Stop date: 10/28/14 13:49:00 sodium phosphate Notes: (Same Inactive [facility] + Sodium as: Na 2014 Medical Chloride 0.9% IV Phosphate, Na C enter 250 mL PO4) potassium Notes: (Same Inactive [facility] chloride as: Potassium 2014 Medical Chloride) Center magnesium 2 gm, 50 mL, Inactive Oxana sulfate Route: IVPB2014 Medical Drug form: Center INJ, ONCE, Start date: 10/28/14 4:30:00, Stop date: 10/28/14 4:30:00 docusate sodium Notes: (Same No Longer [facility] 150 mg/15 mL as: Colace) Active 2014 Medical oral liquid Center chlorhexidine Notes: (Same No Longer [facility] gluconate 1.2 As: Peridex) Active 2014 Medic al MG/ML Mouthwash Center NS 1,000 mL 1,000 mL, No Longer xOana Rate: 100 Active 2014 Medical ml/hr, Infuse [...] [place] MG/ML Injectable Diprivan - Active 2014 [facility] see Suspension change bottle Center & tubing every 12 hr Per state nursing law propofol can only be given by a nurse if patient is intubated or being intubated (unless the nurse is a MEAT STRINGER). Same as: Diprivan sodium Notes: (sodium Inactive [place] bicarbonate 75 bicarb 8.4% (1 2014 Me [...] being intubated (unless the nurse is a MEAT STRINGER). Michelle Notes: Same No Longer Oxana as: Keppra Active [address] [place] [address] Vancomycin 2001 mg: No Longer [place] infuse over Active 2014 [facility] 2.5 hours [place] Vancomycin FOR IV SET ONLY heparin additive 500 mL, Rate: No Longer Oxana 25,000 unit [14 21.16 ml/hr, Active 2014 Med ical unit/kg/hr] + Infuse over: Cente r Premix Diluent 23.6 hr, Dextrose 5% 500 Route: IV, mL Dosing Weight 75.56 kg, Total Volume: 500 mL, Start date: 10/26/14 20:00:00, Duration: 30 day, Stop date: 11/25/14 19:59:00 hydrocortisone Notes: (Same No Longer [place] 100 mg injection as: Active [facility] Center physiological Notes: Total No Longer [place] irrigating ingredients in Active 2014 Medica l solution bag Na Center 140meq/L; K 4meq/L; HCO 35meq/L; Ca 3meq/L; Magnesium 1meq/L; CL 113meq/L; Glucose 100mg/dL; "Break seal Between compartments and mix before hanging" sennosides, SHELTER Notes: (Same No Longer [facility] as: Senokot) Active 2014 Medical [place] Lipitor Notes: Same as No Longer [place] Lipitor Active 2014 Medical Center Xarelto Notes: (Same Inactive [place] as: Xarelto) 2015 Medical Administer Center with food chlorhexidine Notes: (Same No Longer [place] gluconate 1.2 As: Peridex) Active 2014 Medic al MG/ML Mouthwash Center nxstage pureflow 1,000 mL, Inactive [place] [id number] 5000ml Route: 2014 Medical SOLN 1000 mL DIALYSIS, Center Irrigation Site: Vein, femoral, Rt, 3,000 ml/hr, 0.3 hr, Total Volume: 1,000, "For Irrigation Only", Start date: 10/26/14 16:50:00, Duration: 1 day, Stop date: 10/27/14 16:49:00 Ketamine Notes: Per No Longer [facility] Active 2014 [facility] ketamine Center can only be given by a nurse if patient is intubated or being intubated (unless the nurse is a MEAT STRINGER). lidocaine 1% Notes: (Same No Longer [place] as: Xylocaine) Active 2014 [facility] Ketamine Notes: Per Inactive [address] law ketamine Center can only be given by a nurse if patient is intubated or being intubated (unless the nurse is a MEAT STRINGER). Calcium Chloride 1,000 mg, 10 Inactive [place] mL, Route: 2014 Medical IVPB, ONCE, Center Dosing Weight 110.3, kg, Start date: 10/26/14 15:40:00, Stop date: 10/26/14 15:40:00 Iohexol Special Inactive [place] Instructions: 2015 Medical Dose = Center 2.2ml/kg, Max dose = 100ml -- "To be infused by Radiology Staff ONLY" Ketamine Notes: Total Inactive [place] Concentration 2015 Medical = 1mg/ml Total Center Volume = 100ml Infusion Rate= Begin Infusion at an initial rate of 0.1mg/kg/hr to a Maximum Rate of 0.25mg/kg/hr Please place a Med Request 2 hours before the next dose is needed. EPINEPHrine 4 mg 250 mL, Rate: No Longer [place] + Sodium Titrate, Active 2014 Medical Chloride 0.9% Dosing Weight Cent er (titrate) 250 mL 110.3, kg, Route: IV, Total Volume: 254, Start Date: 10/26/14 13:54:00, Duration: 30 day, Stop date: 11/25/14 13:53:00, Replace Every: 24 hr Etomidate Notes: (Same Inactive [facility] as: Amidate). 2015 Medical Per state Center nursing law etomidate can only be given by a nurse if patient is intubated or being intubated (unless the nurse is a MEAT STRINGER). sodium Notes: (sodium Inactive [place] bicarbonate 8.4% bicarb 8.4% (1 2014 Medical mEq/ml) 50 ml Center syringe) Succinylcholine Notes: Same Inactive [facility] as: Anectine 2014 [facility] Fentanyl 1,000 No Longer [facility] microgram, 20 Active 2014 Medical mL, Rate: Center Titrate as directed, Dosing Weight 110.3, kg, Route: IV, Total Volume: 20 mL, Start Date: 10/26/14 13:52:00, Duration: 30 day, Stop date: 11/25/14 13:51:00, Replace Every: 24 hr Midazolam 1 Notes: (Same [place] MG/ML Injectable as: Versed) Active 2014 [facility] ical Solution Center Insulin regular Notes: (Same No Longer [facility] 100 unit + as: Humulin R Active 2014 [facility] Sodium Chloride and NovoLIN R) C enter 0.9% (titrate) (Do not 99 mL shake) Dextrose 50% 6.25 gm, 12.5 No Longer [place] Syringe mL, Route: Active 2014 [facility] IVP, Drug Center Form: INJ, Dosing Weight 110.3, kg, PRN, PRN Abnormal Lab Result, Start date: 10/26/14 13:38:00, Duration: 30 day, Stop date: 11/25/14 13:37:00 nxstage pureflow Notes: Total Inactive [facility] [id number] 5000ml ingredients in 2014 Me dical [...] phosphate 15 mmol, 5 mL, No Longer [place] + Sodium Route: IVPB, Active 2014 Medical Chloride 0.9% IV PRN, Dosing Antionette ter 250 mL Weight 110.3, kg, PRN Abnormal Lab Result, Via central line, Start date: 10/26/14 13:20:00, Duration: 30 day, Stop date: 11/25/14 13:19:00 sodium Notes: (sodium No Longer [facility] s bicarbonate 75 bicarb 8.4% (1 Active 2014 Me dical mEq + Sodium mEq/ml) 50 ml Cente r Chloride 0.45% VL) IV 925 mL vasopressin 80 Notes: (Same No Longer [place] unit + Sodium As: Pitressin) Active 2014 [facility] ical Chloride 0.9% Center (titrate) 246 mL Flagyl Notes: (Same No Longer [facility] as: Flagyl) Active 2014 [facility] Avoid alcohol. Center cefepime Notes: (Same No Longer [facility] As: Maxipime) Active 2014 Medical Center Vancomycin 2001 mg: Inactive [place] infuse over 2015 [facility] 2.5 hours [place] Vancomycin FOR IV SET ONLY PlasmaLyte A 2,000 mL, [place]er [place] PH-7.4 2,000 mL Rate: 2,000 Active 2014 [facility] see ml/hr, Infuse Center over: 1 hr, Route: IV, Dosing Weight 110.3 kg, Total Volume: 2,000, Start date: 10/26/14 9:06:00, Duration: 30 day, Stop date: 11/25/14 9:05:00 Wellbutrin Notes: (Same No Longer [place] as As: Active 2014 Medical Wellbutrin) Center Haldol Notes: (Same Inactive [facility] as: Haldol) 2014 Medical Center Topamax Notes: (Same Inactive [facility] As: Topamax) 2015 Medical "Do Not [...] capsular polysacchar influenza virus Notes: (Same Inactive [facility] vaccine, as: Fluzone 2014 Medical inactivated Quadrivalent) Center Levophed Notes: Not for No Longer [place] as Bitartrate 32 mg direct Active 2014 Medical + Sodium administration Center Chloride 0.9% - DILUTE. (titrate) 218 mL Protect from light. (Same as:Levophed). Administer by either central venous catheter or peripherally-i nserted central catheter (PICC) line. Albumin Human, Notes: Lot #: Inactive [facility] SHELTER 250 MG/ML 2014 Medi see Injectable Mfg: Center Solution (Same as: Plasbumin-25) "blood product derivative" Protonix Notes: (Same Inactive [facility] as: Protonix) 2014 [facility] Albumin Human, Notes: LOT#: Inactive [facility] SHELTER 50 MG/ML 2014 Medic al Injectable Mfg: Center Solution (Same as: Albuminar) "blood product derivative&quo t; Versed Notes: (Same No Longer [facility] as: Versed) Active 2014 [facility] magnesium 2 gm, 50 mL, Inactive Oxana [...] 10/26/14 0:44:00 Reglan Notes: (Same No Longer [facility] as: Reglan) Active 2014 [facility] Valproic Acid 1,000 mg, In[place] [...] 10/26/14 0:15:00 Reglan 10 mg, Route: Inactive [facility] IVP, Drug 2014 Medical form: INJ, [...] BID, On Hold [place] 0 Refill(s) 2014 [facility] Bupropion 200 mg = 2 On Hold [place] Hydrochloride tab, PO, BID, 2014 Medi see 100 MG Oral 0 Refill(s) [place] Tablet [Wellbutrin] tramadol 50 mg = 1 [...] 0 Active 2014 Medica l [Xarelto] Refill(s) [place] Esomeprazole 40 = 1 tab, PO, Inactive [place] MG Enteric Daily, 0 2014 Medical Coated Capsule Refill(s) [place] [Nexium] 120 ACTUAT 1 spray, Inactive [place] Triamcinolone NASAL, Daily, 2014 [facility] Acetonide 0.055 # 17 gm, 0 Cente r MG/ACTUAT Nasal Refill(s) Inhaler [Nasacort] atorvastatin 80 80 mg = 1 tab, Active H [place] MG Oral Tablet PO, Daily, 0 2014 [facility] see [Lipitor] Refill(s) [place] Haldol 2 mg, PO, BID, On Hold [place] 0 Refill(s) 2014 [facility] Acetaminophen Notes: [place] acetaminophen Active 2014 Medical = 4000mg/day [place] (4 gm/day). (Same as: Tylenol) Sodium Chloride [...] [place] 0.9% as: BD Active 2014 [facility] Posiflush) [place] Ondansetron Notes: (Same No Longer [place] as: Zofran) Active [address] [place] [address] NS 1,000 mL 1,000 mL, No Longer [place] Rate: 100 Active 2014 Medical ml/hr, Infuse Center over: 10 hr, Route: IV, Dosing Weight 96.364 kg, Total Volume: 1,000, Start date: 10/25/14 21:30:00, Duration: 30 day, Stop date: 11/24/14 21:29:00 norepinephrine Notes: Not for No Longer [place] 16 mg + Sodium direct Active 2014 Medical Chloride 0.9% administration Antionette ter (titrate) 234 mL - DILUTE. Protect from light. (Same as:Levophed). Administer by either central venous catheter or peripherally-i nserted central catheter (PICC) line. Regular Insulin, 60 units) No Longer H [place] Human 100 UNT/ML Stable for 28 Active 2014 edical Injectable days at room Center Solution temperature Expires in days from Date Dextrose 50% 25 gm, 50 mL, No Longer [place] Syringe Route: IVP, Active 2014 Medical Drug Form: Center INJ, Dosing Weight 96.364, kg, PRN, PRN Abnormal Lab Result, Start date: 10/25/14 21:28:00, Duration: 30 day, Stop date: 11/24/14 21:27:00 Coumadin 2 mg, 1 tab, Inactive [facility] Route: PO, 2013 Medical Drug form: Center TAB, Q5PM, Start date: 11/14/13 17:00:00, Duration: 1 doses or times, Stop date: 11/14/13 17:00:00Nurse to ensure documentation of patient education per anticoagulatio n policy. Avoid large intake of vitamin-K containing foods diet. (Same As: Coumadin) Warfarin 5 mg, 1 tab, Inactive [facility] Route: PO, 2013 Medical Drug form: [...] Levetiracetam 500 mg, 1 tab, No Longer 11/14[facility] [place] 500 MG Oral Route: PO, Active 2013 Medical Tablet [Keppra] Drug form: Cente r TAB, Q12H, Dosing Weight 96.364, kg, Start date: 11/14/13 13:00:00, Duration: 30 day, Stop date: 12/14/13 9:00:00(Same as:Keppra) pneumococcal 0.5 ml, Route: Inactive 11/14[facility] Oxana capsular IM, Drug Form: 2013 [...] Route: PO, Active 2013 Medical Drug form: [place] CAP, Bedtime, Dosing Weight 96.364, kg, PRN Insomnia, Start date: 11/13/13 22:09:00, Duration: 1 day, Stop date: 11/14/13 22:08:00(Same as: Benadryl) atorvastatin 80 mg, 2 tab, No Longer [place] Route: PO, Active 2013 Medical Drug form: [place] TAB, Bedtime, Dosing Weight 96.364, kg, Start date: 11/13/13 21:00:00, Duration: 30 day, Stop date: 12/12/13 21:00:00(Same as: Lipitor) Coumadin 5 mg, 1 tab, Inactive [place] Route: PO2013 Medical Drug form: [place] TAB, Q5PM, Dosing Weight 96.364, kg, Start date: 11/13/13 17:00:00, Duration: 1 doses or times, Stop date: 11/13/13 17:00:00Nurse to ensure documentation of patient education per anticoagulatio n policy. Avoid large intake of vitamin-K containing foods diet. (Same As: Coumadin) Ativan 0.5 mg, 1 tab, Inactive [place] Route: PO2013 Medical Drug form: [place] TAB, ONCE, Dosing Weight 96.364, kg, Start date: 11/13/13 16:00:00, Stop date: 11/13/13 16:00:00(Same as: Ativan) Ativan 0.5 mg, 1 tab, Inactive [facility] Route: PO2013 Medical Drug form: [place] TAB, ONCE, Dosing Weight 96.364, kg, Start date: 11/13/13 15:08:00, Stop date: 11/13/13 15:08:00(Same as: Ativan) atorvastatin 80 80 mg = 1 tab, No Longer [place] MG Oral Tablet PO, Bedtime Active 2013 Medic al [Lipitor] [place] Thiothixene 5 MG 5 mg = 1 cap, Active H [place] Oral Capsule PO, BID, # 60 2013 Medic al [Navane] cap [place] haloperidol 5 mg 5 mg = 1 tab, Active H [place] oral tablet PO, BID, # 60 2013 Medica l tab Center Sertraline 100 100 mg = 1 Active [place] MG Oral Tablet tab, PO, BID, 2013 Med ical [Zoloft] # 60 tab [place] 12 HR Bupropion 200 mg = 1 Active [place] Hydrochloride tab, PO, BID, 2013 Medi see 200 MG Extended # 60 tab Center Release Tablet [Wellbutrin] lisinopril 40 mg 40 mg = 1 tab, Active [facility] oral tablet PO, Daily 2013 [facility] verapamil 300 300 mg = 1 Active [place] mg/24 hours oral cap, PO, Daily 2013 [facility] Saline Flush 5 ml, Route: No Longer [place] 0.9% IVP, Drug Active 2013 Medical Form: INJ, [place] Dosing Weight 96.364, kg, Q12H, Start date: 11/13/13 9:00:00, Duration: 30 day, Stop date: 12/12/13 21:00:00(Same as: BD Posiflush) Aspirin 325 MG 325 mg, 1 tab, Inactive [facility] Enteric Coated Route: PO, 2013 Medica l Tablet Drug form: [place] ECTAB, Daily, Dosing Weight 96.364, kg, Start date: 11/13/13 9:00:00, Duration: 30 day, Stop date: 12/12/13 9:00:00(Do Not Crush) Do not crush or chew. Versed 1 mg, 1 mL, No Longer [facility] Route: IV, Active 2013 Medical Drug form: [place] INJ, PRN, Dosing Weight 96.364, kg, PRN Other -See Comment, Start date: 11/13/13 7:06:00, Duration: 30 day, Stop date: 12/13/13 7:05:00(Same as: Versed) Iohexol 85 mL, Route: Inactive [facility] IVP, Drug 2013 Medical [facility] Dosing Weight 96.364, kg, ONCALL, STAT, Start date: 11/13/13 6:04:00, Duration: 1 doses or times, Stop date: 11/14/13 0:00:00, Dose = 2.2ml/kg, Max dose = 100ml -- "To be infused by Radiology Staff ONLY"(Same as:Omnipaque 350). Enoxaparin 40 mg, 0.4 mL, Inactive [place] Route: SUB-Q, 2013 Medical Drug form: Center INJ, [id number], Dosing Weight 96.364, kg, Start date: 11/13/13 [...] Acetaminophen 650 mg, 2 tab, No Longer [facility] Route: PO, Active 2013 Medical Drug form: [...] 12/13/13 5:14:00 Coumadin 7 mg, PO, Active [place] Daily, 0 2013 Medical Refill(s) Center Saline Flush 5 mL, Route: No Longer [place] 0.9% IVP, Drug Active 2013 Medical Form: INJ, Center Dosing Weight 96.364, kg, PRN, PRN Line Flush, Start date: 11/13/13 3:58:00, Duration: 30 day, Stop date: 12/13/13 3:57:00preserv ative free. Navane 2 mg oral 2 mg, PO, BID, PO Active [facility] 05/12[facility] [place] capsule 60 tab, 2012 Medical Substitution Center Allowed, CAP Zoloft 100 mg 100 mg, 1 tab, PO Active [facility] 05/12[facility] [place] oral tablet PO, BID, 60 2012 Medical tab, Center Substitution Allowed, TAB haloperidol 2 mg 2 mg, 1 tab, PO Active [facility] 05/12[facility] [place] oral tablet PO, BID, 60 2012 Medical tab, Center Substitution Allowed Wellbutrin 100 100 mg, 1 tab, PO Active [facility] 05/12[facility] [place] mg oral tablet PO, BID, 60 2012 Medic al tab, Center Substitution Allowed, TAB Levaquin 750 mg 750 mg, 1 tab, PO Active [facility] 05/12[facility] [place] oral tablet PO, Q24H, 7 2012 Medical tab, Center Substitution Allowed, TAB Flagyl ER 750 mg 750 mg, 1 tab, PO No Longer [facility] 05/12[facility] oral tablet, PO, Daily, 7 Active 2012 Medica l extended release tab, [place] Substitution Allowed, ERTAB metoprolol 50 mg, 1 tab, PO No Longer [facility] 05/12[facility] [place] tartrate Route: PO, Active 2012 Medical Drug form: [place] TAB, Q12H, Dosing Weight 98.182, kg, Start date: 05/11/13 21:00:00, Duration: 30 day, Stop date: 06/10/13 9:00:00 Multiple 1 cap, PO, PO Active [facility] 05/11[facility] [place] Vitamins oral Daily, 30 cap, 2012 Med ical capsule Substitution Center Allowed, Maintenance, CAP atorvastatin 80 80 mg, 1 tab, PO Active [facility] 05/11[facility] [place] mg oral tablet PO, Bedtime, 2012 Medi see 30 tab, Center Substitution Allowed, TAB aspirin 81 mg 81 mg, 1 tab, PO Active [facility] 05/11[facility] [place] tablet, enteric PO, Daily, 30 2012 Me dical coated tab, Center Substitution Allowed, ECTAB metoprolol 25 mg, 1 tab, PO No Longer [facility] [place] tartrate Route: PO, Active 2012 Medical Drug form: [place] TAB, ONCE, Dosing Weight 98.182, kg, Priority: STAT, Start date: 05/11/13 8:38:00, Stop date: 05/11/13 8:38:00 Flagyl 500 mg, 100 IVPB No Longer [facility] mL, Route: Active 2012 Medical IVPB, Drug Center form: INJ, [id number], Dosing Weight 98.182, kg, Start date: 05/10/13 18:00:00, Duration: 30 day, Stop date: 06/09/13 10:00:00 azithromycin + 500 mg, Route: IVPB No Longer [facility] [place] Sodium Chloride IVPB, [id number], Active 2012 M edical 0.9% IV 250 mL Dosing Weight Antionette ter 98.182, kg, Start date: 05/10/13 18:00:00, Duration: 30 day, Stop date: 06/08/13 18:00:00 Neutra-Phos 1 pkt, Route: PO No Longer [facility] [place] PO, Drug Form: Active 2012 Medical PDR/REC, Center Dosing Weight 98.182, kg, ONCE, Start date: 05/10/13 17:45:00, Stop date: 05/10/13 17:45:00 magnesium 1 gm, Route: IVPB No Longer [facility] [place] sulfate IVPB, Drug Active 2012 Medical form: INJ, Center ONCE, Dosing Weight 98.182, kg, Start date: 05/10/13 17:45:00, Stop date: 05/10/13 17:45:00 heparin 5,000 unit, 1 SUB-Q No Longer [facility] mL, Route: Active 2012 Medical SUB-Q, Drug Center form: INJ, Q8H, Dosing Weight 98.182, kg, Start date: 05/10/13 16:00:00, Duration: 30 day, Stop date: 06/09/13 8:00:00 aspirin 81 mg, 1 tab, PO No Longer [facility] Route: PO, Active 2012 Medical Drug form: Center ECTAB, Daily, Dosing Weight 98.182, kg, Start date: 05/10/13 13:00:00, Duration: 30 day, Stop date: 06/09/13 9:00:00 azithromycin 250 250 mg, 1 tab, PO No Longer [facility] mg oral tablet Route: PO, Active 2012 Medica l Drug form: Center TAB, [id number], Dosing Weight 98.182, kg, Start date: 05/10/13 8:00:00, Duration: 4 doses or times, Stop date: 05/13/13 8:00:00 Versed 1 mg, 1 mL, IV No Longer [place] Route: IV, Active 2012 Medical Drug form: [place] INJ, ONCE, Dosing Weight 98.182, kg, Start date: 05/10/13 7:41:00, Stop date: 05/10/13 7:41:00 magnesium 2 gm, 50 mL, IVPB [place] Longer [place] sulfate Route: IVPB, Active 2012 Medical Drug form: [place] INJ, Q2H, Dosing Weight 98.182, kg, Total Dose = 4 gm, Start date: 05/10/13 6:00:00, Duration: 2 doses or times, Stop date: 05/10/13 8:00:00, For Mg = 1.5 - 1.7 mg/dLFor Mg = 1.5 - 1.7 mg/dL Lipitor 80 mg, 1 tab, PO No Longer [place] Route: PO, Active 2012 Medical Drug form: [place] TAB, Bedtime, Dosing Weight 113.636, kg, Start date: 05/09/13 21:00:00, Duration: 30 day, Stop date: 06/07/13 21:00:00 Mag-Ox 400 400 mg, 1 tab, PO No Longer [place] Route: PO, Active 2012 Medical Drug form: [place] TAB, On Adm, Start date: 05/09/13 19:00:00, Duration: 1 doses or times, Stop date: 05/09/13 21:00:00 magnesium oxide 500 mg, Route: PO No Longer Ang[place] base 500 mg oral PO, Drug form: Active 2012 Medical tablet TAB, ONCE, [place] Dosing Weight 98.182, kg, Start date: 05/09/13 18:08:00, Stop date: 05/09/13 18:08:00 thiamine 100 mg, 1 tab, PO No Longer [place] Route: PO, Active 2012 Medical Drug form: [place] TAB, Daily, Dosing Weight 98.182, kg, Start date: 05/09/13 9:00:00, Duration: 30 day, Stop date: 06/07/13 9:00:00 folic acid 1 mg, 1 tab, PO No Longer [place] 05/09[facility] [place] Route: PO, Active 2012 Medical Drug form: Center TAB, Daily, Dosing Weight 98.182, kg, Start date: 05/09/13 9:00:00, Duration: 30 day, Stop date: 06/07/13 9:00:00 multivitamin 1 tab, Route: PO No Longer [place] 05/09[facility] PO, Drug Form: Active 2012 Medical TAB, Dosing Center Weight 98.182, kg, Daily, Start date: 05/09/13 8:10:00, Duration: 30 day, Stop date: 06/07/13 9:00:00 heparin 5,000 unit, 1 SUB-Q No Longer Tom [facility] mL, Route: Active 2012 Medical SUB-Q, Drug [place] form: INJ, Q8H, Dosing Weight 98.182, kg, Start date: 05/09/13 8:00:00, Duration: 30 day, Stop date: 06/08/13 0:00:00 Plavix 75 mg, 1 tab, PO No Longer [place] [facility] Route: PO, Active 2012 Medical Drug form: Center TAB, Daily, Dosing Weight 98.182, kg, Start date: 05/09/13 8:00:00, Duration: 30 day, Stop date: 06/07/13 9:00:00 Rocephin 1 gm, Route: IVPB No Longer Tom 05/09[facility] IVPB, Drug Active 2012 Medical form: PDR/INJ, Center [id number], Dosing Weight 98.182, kg, Start date: 05/09/13 8:00:00, Duration: 4 doses or times, Stop date: 05/13/13 8:00:00 insulin regular 3 unit, 0.03 SUB-Q No Longer [facility] 05/09[facility] 100 units/mL mL, Route: Active [...] NEB, Active Brice 2012 Medical Drug form: [place] SOLN, PRN, Dosing Weight 113.636, kg, PRN Respiratory Protocol, Start date: 05/08/13 21:59:00, Duration: 30 day, Stop date: 06/07/13 21:58:00 Tylenol 325 mg, 1 tab, PO No Longer [place] Route: PO, Active [place] 2012 Medical Drug form: [place] TAB, Q4H, Dosing Weight 113.636, kg, PRN Pain, Start date: 05/08/13 21:58:00, Duration: 30 day, Stop date: 06/07/13 21:57:00 Saline Flush 5 ml, Route: IVP No Longer [place] 0.9% IVP, Drug Active [place] 2012 Medical Form: INJ, [place] Dosing Weight 113.636, kg, Q12H, Start date: 05/08/13 21:00:00, Duration: 30 day, Stop date: 06/07/13 9:00:00 docusate 100 mg, 1 cap, PO No Longer [place] Route: PO, Active [place] 2012 Medical Drug form: [place] CAP, Q12H, Dosing Weight 113.636, kg, Start [...] 0.5 ml, Route: IM No Longer SYSTEM [facility] vaccine, IM, Drug Form: Active 2011 Medical inactivated INJ, Start Center date: 07/21/12 12:08:00, Stop date: 07/21/12 12:08:00 verapamil 80 mg 80 mg, 1 tab, PO Active Quang [facility] oral tablet PO, TID, 90 2011 Medical tab, 3, 3, Center Substitution Allowed, TAB Haldol 2 mg, 2 tab, PO No Longer [place] [facility] Route: PO, Active 2011 Medical Drug form: Center TAB, Daily, Dosing Weight 113.636, kg, Start date: 07/21/12 9:00:00, Duration: 30 day, Stop date: 08/19/12 9:00:00 aspirin 325 mg, 1 tab, PO No Longer [place] Route: PO, Active 2011 Medical Drug form: [place] TAB, Daily, Dosing Weight 113.636, kg, Start [...] Route: PO, Active 2011 Medical Drug form: [place] TAB, Q12H, Dosing Weight 113.636, kg, Start date: 07/20/12 23:00:00, Duration: 30 day, Stop date: 08/19/12 11:00:00 clonidine 0.1 mg, 1 tab, PO [place] Long[place] Route: PO, Active 2011 Medical Drug form: [place] TAB, Q8H-05, Dosing Weight 113.636, kg, Start date: 07/20/12 21:00:00, Duration: 30 day, Stop date: 08/19/12 13:00:00 Lipitor 40 mg, 1 tab, PO No Longer [place] Route: PO, Active 2011 Medical Drug form: [place] TAB, QPM, Dosing Weight 113.636, kg, Start date: 07/20/12 17:00:00, Duration: 30 day, Stop date: 08/18/12 17:00:00 NS (Bolus) IV 500 mL, Rate: IV No Longer [facility] 500 mL 500 ml/hr, Active 2011 Medical Infuse over: 1 Center hr, Route: IV, kg, Total Volume: 500, Priority: STAT, Start date: 07/20/12 16:31:00, Duration: 1 doses or times, Stop date: 07/20/12 17:30:00, Bolus DoseBolus Dose caffeine 300 mg, 1.5 PO No Longer e Oxana tab, Route: Active 2011 Medical PO, Drug form: [place] TAB, ONCE, Start date: 07/20/12 15:30:00, Stop date: 07/20/12 15:30:00 aspirin 81 mg, 1 tab, PO No Longer [place] Route: PO, Active 2011 Medical Drug form: [place] ECTAB, Daily, Dosing Weight 113.636, kg, Start date: 07/20/12 15:00:00, Duration: 30 day, Stop date: 08/19/12 9:00:00 Zofran 4 mg, 2 mL, IV No Longer [facility] Route: IV, Active 2011 Medical Drug form: [place] INJ, Q6H, Dosing Weight 113.636, kg, PRN Nausea, Start date: 07/20/12 13:23:00, Duration: 30 day, Stop date: 08/19/12 13:22:00 caffeine-sodium 250 mg, 1 mL, IVPB No Longer [facility] benzoate + Route: IVPB, Active 2011 Medical Sodium Chloride Drug form: Cente r 0.9% IV 1,000 mL INJ, ONCE, Dosing Weight 113.636, kg, Start date: 07/20/12 13:20:00, Stop date: 07/20/12 13:20:00 Navane 20 mg, 4 cap, PO [facility] Route: PO, Active 2011 Medical Drug form: [place] CAP, Daily, Dosing Weight 113.636, kg, Start date: 07/20/12 9:00:00, Duration: 30 day, Stop date: 08/18/12 9:00:00 clonidine 0.1 mg, Route: PO No Longer [facility] [place] PO, Drug form: Active 2011 Medical TAB, TID, [place] Dosing Weight 113.636, kg, Start date: 07/20/12 9:00:00, Duration: 30 day, Stop date: 08/18/12 17:00:00 Haldol 2 mg, 1 tab, PO [facility] Route: PO, Active 2011 Medical Drug form: [place] TAB, Daily, Dosing Weight 113.636, kg, Start date: 07/20/12 9:00:00, Duration: 30 day, Stop date: 08/18/12 9:00:00 Zoloft 100 mg, 1 tab, PO [facility] [place] Route: PO, Active 2011 Medical Drug form: [place] TAB, Daily, Dosing Weight 113.636, kg, Start date: 07/20/12 9:00:00, Duration: 30 day, Stop date: 08/18/12 9:00:00 Wellbutrin 300 mg, 2 tab, PO [facility] [place] Route: PO, Active 2011 Medical Drug form: [place] ERTAB, Daily, Dosing Weight 113.636, kg, Start [...] IVP, Drug Active 2011 Medical Form: INJ, [place] Dosing Weight 113.636, kg, Q12H, Start date: 07/19/12 21:00:00, Duration: 30 day, Stop date: 08/18/12 9:00:00 famotidine 20 mg, 1 tab, PO No Longer [place] Route: PO, Active 2011 Medical Drug form: [place] TAB, Q12H, Dosing Weight 113.636, kg, Start date: 07/19/12 21:00:00, Duration: 30 day, Stop date: 08/18/12 9:00:00 Visipaque 100 mL, Route: IVP No Longer [place] 320mg/ml IVP, Drug Active 2011 [facility] Dosing Weight 113.636, kg, ONCALL, STAT, Start date: 07/19/12 14:56:00, Duration: 1 doses or times, Dose = 2.2ml/kg, Max dose = 150mlDose = 2.2ml/kg, Max dose = 150ml enoxaparin 40 mg, 0.4 mL, SUB-Q [facility] [place] [facility]: SUB-Q, Active 2011 Medical Drug form: [place] INJ, Q24H, Dosing Weight 113.636, kg, Start date: 07/19/12 11:00:00, Duration: 30 day, Stop date: 08/17/12 11:00:00 hydromorphone 1 mg, 0.5 mL, IVP No Longer [place] [facility] Route: IVP, Active 2011 Medical Drug form: [place] INJ, ONCE, Dosing Weight 113.636, kg, Priority: STAT, Start date: 07/19/12 10:49:00, Stop date: 07/19/12 10:49:00 Plavix 75 mg, 1 tab, PO No Longer [place] Route: PO, Active 2011 Medical Drug form: [place] TAB, Daily, Dosing Weight 113.636, kg, Priority: STAT, Start date: 07/19/12 10:17:00, Duration: 30 day, Stop date: 08/18/12 9:00:00 Saline Flush 5 ml, Route: IVP [facility] [place] 0.9% IVP, Drug Active 2011 Medical Form: INJ, [place] Dosing Weight 113.636, kg, PRN, PRN Line Flush, Start date: 07/19/12 10:05:00, Duration: 30 day, Stop date: 08/18/12 10:04:00 acetaminophen 650 mg, 2 tab, PO No Longer [place] [facility] Route: PO, Active 2011 Medical Drug form: [place] TAB, Q4H, Dosing Weight 113.636, kg, PRN Pain/Fever, Start date: 07/19/12 10:05:00, Duration: 30 day, Stop date: 08/18/12 10:04:00 Sodium Chloride 1,000 mL, IV [facility] [place] 0.9% IV 1,000 mL Rate: 75 Active 2011 Medica l ml/hr, Infuse Center over: 13.3 hr, Route: IV, kg, Total Volume: 1,000, Start date: 07/19/12 10:05:00, Duration: 30 day, Stop date: 08/18/12 10:04:00 Navane 20 mg, PO, PO Active [facility] , 2011 Medical Substitution Center Allowed Haldol 2 mg, PO, PO Active [facility] Daily, 2011 Medical Substitution Center Allowed Wellbutrin 300 mg, PO, PO Active [facility] Daily, 2011 Medical Substitution Center Allowed Zoloft 100 mg, PO, PO Active [facility] Daily, 2011 Medical Substitution Center Allowed clonidine 0.3 mg, PO, PO Active [place] [facility] TID2011 Medical Substitution Center Allowed promethazine 25 mg, 1 mL, IVPB No Longer [place] 07/19[facility] Route: IVPB, Active 2011 Medical Drug form: Center INJ, ONCE, Dosing Weight 113.636, kg, Priority: STAT, Start date: 07/19/12 6:57:00, Stop date: 07/19/12 6:57:00 hydromorphone 1 mg, 0.5 mL, IVP No Longer [place] 07/19/ [facility] Route: IVP, Active 2011 Medical Drug form: Center INJ, ONCE, Dosing Weight 113.636, kg, Priority: STAT, Start date: 07/19/12 6:56:00, Stop date: 07/19/12 6:56:00 Allergies, Adverse Reactions, Alerts Substance Category Reaction Severity Reaction Status Date Comments S ource type Reported Compazine [facility] [place] Assertion Drug Active [place] [facility] labetalol Assertion Drug Active [facility] NSAIDs Assertion Drug Active [place] [facility] Stadol Assertion Drug Active [place] [facility] Toradol Assertion Drug Active [place] [facility] Vicoprofen Assertion Drug Active [facility] Immunizations Immunization Date Given Site Status Last Comments Source Updated influenza virus 10/28/2014 Left completed Aliza [facility] pneumococcal 11/14/2013 Right completed Keegan [place] 23-valent vaccine [facility] influenza virus 07/21/2012 Right completed Yovany [facility] vaccine, Deltoid Medical inactivated Center influenza virus 07/21/2012 completed Yovany [facility] vaccine, Medical inactivated Center influenza virus 07/21/2012 Not Given Yovany [facility] vaccine, Medical inactivated [place] influenza virus 07/21/2012 Not Given Yovany [facility] vaccine, Medical inactivated [place] Results Order Name Results Value Reference Date Interpretation Comments Manda rce Range CHEM PANEL Phosphorus 2.6 2.5 - 4.5 03/12 [facility] CHEM PANEL eGFR 101 03/12 Result Comment: [...] Calcium Lvl 8.2 8.5 - 10.5 03/12 [facility] CHEM PANEL Glucose Lvl 97 70 - 99 03/[address] CHEM PANEL Potassium Lvl 3.3 3.5 - 5.1 03/12 [facility]2018 [facility] CHEM PANEL Chloride Lvl 110 95 - 109 03/12 [facility]2018 [facility] CHEM PANEL AGAP 15.3 10.0 - 03/12 [facility] 20.0 [facility] CHEM PANEL CO2 21 24 - 32 03/[address] CHEM PANEL BUN 5 7 - 22 03/[address] CHEM PANEL Creatinine 0.64 0.50 - 03/12 [place] Lvl 1.40 [facility] CHEM PANEL Sodium Lvl 143 135 - 145 03/[address] CHEM PANEL Magnesium Lvl 1.9 1.8 - 2.4 03/[address] HEMATOLOGY Basophils # 0.1 0.0 - 0.2 03/[address] HEMATOLOGY Eosinophils 3.0 0.0 - 4.0 03/[address] HEMATOLOGY Basophils 1.2 0.0 - 1.0 03/[address] HEMATOLOGY Segs 62.0 45.0 - 03/12 [facility] 75.0 [facility] HEMATOLOGY Lymphocytes # 2.6 1.0 - 5.5 03/[address] HEMATOLOGY Monocytes # 0.4 0.0 - 0.8 03/12 [place] [facility] HEMATOLOGY Lymphocytes 29.6 20.0 - 03/12 40.0 [facility] HEMATOLOGY Monocytes 4.2 2.0 - 12.0 03/12 [facility] HEMATOLOGY Eosinophils # 0.3 0.0 - 0.5 03/12 [facility] HEMATOLOGY Neutrophils # 5.5 1.5 - 8.1 03/12 [facility] HEMATOLOGY RBC 3.64 4.20 - 03/12 [place] 5.40 [facility] HEMATOLOGY Hgb 10.5 12.0 - 03/12 16.0 [facility] HEMATOLOGY Platelet 194 133 - 450 03/12 [facility] HEMATOLOGY MPV 8.0 7.4 - 10.4 03/12 [facility] HEMATOLOGY RDW 16.7 11.5 - 03/12 14.5 [facility] HEMATOLOGY WBC 8.9 3.7 - 10.4 03/12 [facility] HEMATOLOGY MCH 29.0 27.0 - 03/12 31.0 [facility] HEMATOLOGY MCHC 32.7 32.0 - 03/12 36.0 [facility] HEMATOLOGY MCV 88.4 80.0 - 03/12 98.0 [facility] HEMATOLOGY Hct 32.2 36.0 - 03/12 48.0 [facility] PARATHYROID Ca Ion WB 1.05 1. - 03/12 [facility] PROFILE 09.11 [facility] PARATHYROID Ca Norm WB 1.05 1.05 - 03/12 [facility] PROFILE 09.11 [facility] CHEM PANEL eGFR 83 03/11 Result Comment: [...] CHEM PANEL AGAP 11.4 10.0 - 03/11 [facility] 20.0 [facility] CHEM PANEL Calcium Lvl 8.2 8.5 - 10.5 03/11 [place] as [facility] CHEM PANEL CO2 25 24 - 32 03/11 [facility]2018 [facility] CHEM PANEL Chloride Lvl 110 95 - 109 03/11 [facility] CHEM PANEL Potassium Lvl 3.4 3.5 - 5.1 03/11 [place] [facility] CHEM PANEL Creatinine 0.80 0.50 - 03/11 [facility] Lvl 1.40 [facility] CHEM PANEL Sodium Lvl 143 135 - 145 03/11 [facility]2018 [facility] CHEM PANEL Glucose Lvl 142 70 - 99 03/11 [facility] CHEM PANEL BUN 4 7 - 22 03/11 [facility] PARATHYROID Ca Norm WB 1.07 1.05 - 03/11 [facility] PROFILE 1. [facility] PARATHYROID Ca Ion WB 1.07 1.05 - 03/11 [facility] . [facility] URINE AND UA WBC 4 0 - 5 03/11 [facility] STOOL [facility] URINE AND UA Leuk Est Negative Negative 03/11 [facility] (03/11/19 4:57 PM) [facility] URINE AND UA Sq Epi Few /LPF Few /LPF 03/11 [facility] URINE AND UA <1.0 0.1 - 1.0 03/11 [facility] Urobilinogen /2018 [facility] URINE AND UA Nitrite Negative Negative 03/11 [facility] (03/11/19 4:57 PM) [facility] URINE AND UA Bili Negative Negative 03/11 [facility] STOOL *NA* /2018 [facility] (03/11/19 4:57 PM) [place] URINE AND UA Blood Negative Negative 03/11 [facility] (03/11/19 4:57 PM) [facility] URINE AND UA Ketones Trace Negative 03/11 [facility] mg/dL mg/dL [facility] URINE AND UA Mucus Few /LPF None Seen 03/11 [facility] STOOL /LPF [facility] URINE AND UA RBC 1 0 - 2 03/11 [facility] URINE AND UA Bacteria Few /HPF None Seen 03/11 [facility] ST[facility] /HPF [facility] URINE AND UA Color Yellow Yellow 03/11 [facility] *NA* [facility] (03/11/19 4:57 PM) [place] URINE AND UA Turbidity Slight Clear 03/11 [facility] *ABN* [facility] (03/11/19 4:57 PM) [place] URINE AND UA Spec Grav 1.016 <=1.030 03/11 [facility] URINE AND UA Protein 30 mg/dL Negative 03/11 [facility] mg/dL [facility] URINE AND UA pH 8.0 5.0 - 8.0 03/11 [facility] URINE AND UA Glucose Negative Negative 03/11 [facility] mg/dL mg/dL [facility] URINE CHEM U Potassium 7.4 03/11 [facility] URINE CHEM U Chloride 125 03/11 [facility] URINE CHEM U Sodium 192 03/11 [facility] URINE CHEM U Osmolality 528 300 - 800 03/11 [place] as [facility] URINE CHEM U Preg Negative Negative 03/11 [facility] (03/11/19 4:57 PM) [facility] CHEM PANEL eGFR 109 03/11 [...] Lvl 2.9 3.5 - 5.1 03/11 Result [facility] Comment: [facility] Critical Center Result(s) called to Alaina Rosa at 03/11/2019 06:03 by . Read back [place]. CHEM PANEL Sodium Lvl 140 135 - 145 03/11 [facility] CHEM PANEL Creatinine 0.51 0.50 - 03/11 [place] Lvl 1.40 [facility] CHEM PANEL BUN 4 7 - 22 03/11 [facility] CHEM PANEL Glucose Lvl 79 70 - 99 03/11 [facility] CHEM PANEL Calcium Lvl 7.6 8.5 - 10.5 03/11 [facility] CHEM PANEL AGAP 9.9 10.0 - 03/11 20. [facility] CHEM PANEL CO2 27 24 - 32 03/11 [facility] CHEM PANEL Chloride Lvl 106 95 - 109 03/11 [facility] CHEM PANEL Phosphorus 3.7 2.5 - 4.5 03/11 [facility] CHEM PANEL Magnesium Lvl 2.0 1.8 - 2.4 03/11 [facility] HEMATOLOGY MPV 8.1 7.4 - 10.4 03/11 [facility] HEMATOLOGY Platelet 163 133 - 450 03/11 [facility] HEMATOLOGY RDW 16.6 11.5 - 03/11 14.5 [facility] HEMATOLOGY MCH 29.0 27.0 - 03/11 31.0 [facility] HEMATOLOGY MCHC 33.0 32.0 - 03/11 36.0 [facility] HEMATOLOGY RBC 3.64 4.20 - 03/11 5.40 [facility] HEMATOLOGY Hgb 10.6 12.0 - 03/11 16.0 [facility] HEMATOLOGY WBC 9.3 3.7 - 10.4 03/11 [facility] HEMATOLOGY MCV 87.8 80.0 - 03/11 [place] 98.0 2019 [facility] HEMATOLOGY Hct 32.0 36.0 - 03/11 [place] 48.0 [facility] HEMATOLOGY Eosinophils 4.0 0.0 - 4.0 03/11 [facility] s /2019 [facility] HEMATOLOGY Segs 62.5 45.0 - 03/11 [place] 75.0 2019 [facility] HEMATOLOGY Lymphocytes 27.8 20.0 - 03/11 [place] 40.0 [facility] HEMATOLOGY Monocytes 4.5 2.0 - 12.0 03/[address] HEMATOLOGY Neutrophils # 5.8 1.5 - 8.1 03/11 [facility]2018 [facility] HEMATOLOGY Lymphocytes # 2.6 1.0 - 5.5 03/[address] HEMATOLOGY Monocytes # 0.4 0.0 - 0.8 03/11 [facility]2018 [facility] HEMATOLOGY Eosinophils # 0.4 0.0 - 0.5 03/11 [facility]2018 [facility] HEMATOLOGY Basophils 1.2 0.0 - 1.0 03/[address] HEMATOLOGY Basophils # 0.1 0.0 - 0.2 03/11 [facility]2018 [facility] PARATHYROID Ca Ion WB 0.91 1.05 - 03/11 [facility] PROFILE 1. [facility] PARATHYROID Ca Norm WB 0.96 1.05 - 03/11 [facility] PROFILE 1. [facility] HEMATOLOGY Eosinophils # 0.3 0.0 - 0.5 03/[address] HEMATOLOGY Monocytes # 0.4 0.0 - 0.8 03/10 [facility]2018 [facility] HEMATOLOGY Lymphocytes # 2.8 1.0 - 5.5 03/[address] HEMATOLOGY Basophils # 0.1 0.0 - 0.2 03/10 [facility]2018 [facility] HEMATOLOGY Segs 61.6 45.0 - 03/10 [place] 75.0 2019 [facility] HEMATOLOGY Lymphocytes 29.1 20.0 - 03/10 [facility] 40.0 2019 [facility] HEMATOLOGY Basophils 1.2 0.0 - 1.0 03/[address] HEMATOLOGY Monocytes 4.5 2.0 - 12.0 03/[address] HEMATOLOGY Neutrophils # 5.8 1.5 - 8.1 03/[address] HEMATOLOGY Eosinophils 3.6 0.0 - 4.0 03/10 [facility]2018 [facility] HEMATOLOGY MPV 7.9 7.4 - 10.4 03/10 [facility] HEMATOLOGY Hct 34.6 36.0 - 03/10 [place] 48.0 /2018 [facility] HEMATOLOGY MCH 28.6 27.0 - 03/10 [place] 31.0 [facility] HEMATOLOGY MCV 88.5 80.0 - 03/10 [place] 98.0 [facility] HEMATOLOGY Platelet 162 133 - 450 03/10 [facility] HEMATOLOGY RDW 16.7 11.5 - 03/10 [place] 14.5 [facility] HEMATOLOGY MCHC 32.3 32.0 - 03/10 [place] 36.0 [facility] HEMATOLOGY Hgb 11.2 12.0 - 03/10 [place] 16.0 [facility] HEMATOLOGY RBC 3.91 4.20 - 03/10 [facility] 5.40 [facility] HEMATOLOGY WBC 9.5 3.7 - 10.4 03/10 [facility] HEMATOLOGY INR 1.06 0.85 - 03/10 [place] 1.17 [facility] HEMATOLOGY PT 13.6 12.0 - 03/10 [place] 14.7 [facility] HEMATOLOGY PTT 36.3 22.9 - 03/10 [place] 35.8 [facility] CARDIAC Troponin-I 0.30 0.00 - 03/10 [facility] ENZYMES 0.40 [facility] CHEM PANEL Phosphorus 1.6 2.5 - 4.5 03/10 [facility] CHEM PANEL Magnesium Lvl 2.1 1.8 - 2.4 03/10 [place] [facility] LIPIDS VLDL 39 03/10 [facility] LIPIDS LDL 36 <=99 mg/dL 03/10 [facility] (Calculated) [facility] LIPIDS HDL 28 >=61 mg/dL 03/10 [facility] LIPIDS Trig 195 <=149 03/10 [facility] mg/dL [facility] LIPIDS Chol 103 <=199 03/10 [facility] mg/dL [facility] LIPIDS CHD Risk 3.68 3.90 - 03/10 [place] 5.80 [facility] SPECIAL Hgb A1C 4.8 <=5.6 % 03/10 [facility] CHEMISTRY [facility] ANEMIA Vitamin B12 267 254 - 1320 03/10 [facility] STUDY Lvl /2018 [facility] ANEMIA Folate Lvl 4.4 >=3.0 07/24 [place] STUDY ng/mL /2018 [facility] CARDIAC BNP 10 <=100 03/10 [facility] ENZYMES pg/mL [facility] CHEM PANEL Osmolality 294 280 - 300 03/10 [facility] HEMATOLOGY PTT 42.4 22.9 - 03/10 [place] 35.8 [facility] HEMATOLOGY PT 13.5 12.0 - 03/10 [place] 14.7 [facility] HEMATOLOGY INR 1.05 0.85 - 03/10 [place] . [facility] CARDIAC Troponin-I 0.48 0.00 - 03/10 [facility] ENZYMES 0.40 [facility] CARDIAC Troponin-I 0.50 0.00 - 03/09 Result [facility] ENZYMES 0.40 Comment: [facility] Critical [facility] Result(s) called to Dr. Ezekiel Tran at 03/09/2019 18:01 by AC. Read back [place]. CARDIAC Total CK 63 12 - 191 03/09 [facility] ENZYMES [facility] CHEM PANEL Lactic Acid 1.2 0.5 - 2.2 03/09 [place] [facility] HEMATOLOGY PTT 31.7 22.9 - 03/09 [place] 35.8 [facility] HEMATOLOGY INR 1.07 0.85 - 03/09 [place] 09.03 [facility] HEMATOLOGY PT 13.7 12.0 - 03/09 [facility] 14 [facility] CHEM PANEL Phosphorus 3.5 2.5 - 4.5 03/22 [facility] CHEM PANEL Magnesium Lvl 1.8 1.8 - 2.4 03/22 [place] [facility] ELECTROLYTE CO2 22 24 - 32 03/22 [place] S [facility] ELECTROLYTE Calcium Lvl 8.9 8.5 - 10.5 03/22 [facility] [place] [facility] ELECTROLYTE AGAP 14.6 10.0 - 08 [facility] S 20.0 [facility] ELECTROLYTE Chloride Lvl 110 95 - 109 03/22 [place] S [facility] ELECTROLYTE Potassium Lvl 3.6 3.5 - 5.1 03/22 [place] [facility] ELECTROLYTE Creatinine 0.9 0.5 - 1.4 03/22 [place] L[place] /2014 [facility] ELECTROLYTE Sodium Lvl 143 135 - 145 03/22 [facility] [place] [facility] ELECTROLYTE Glucose Lvl 81 70 - 99 03/22 [facility] ELECTROLYTE BUN 10 7 - 22 03/22 [facility] ELECTROLYTE eGFR 75 03/22 [facility] Comment: The Medical eGFR is Center calculated [...] HEMATOLOGY MPV 7.5 7.4 - 10.4 08 [facility] HEMATOLOGY Platelet 224 133 - 450 03/22 [facility] HEMATOLOGY WBC 11.7 3.7 - 10.4 03/22 [facility] HEMATOLOGY Hct 32.6 36.0 - 03/22 [place] 48.0 [facility] HEMATOLOGY MCV 84.1 80.0 - 03/22 [place] 98.0 /2014 [facility] HEMATOLOGY RBC 3.87 4.20 - 03/22 [place] 5.40 /2014 [facility] HEMATOLOGY Hgb 10.4 12.0 - 08 [place] 16.0 /2014 [facility] HEMATOLOGY MCHC 31.9 32.0 - 08 [place] 36.0 [facility] HEMATOLOGY MCH 26.8 27.0 - 08 [place] 31.0 [facility] HEMATOLOGY RDW 17.6 11.5 - 08 14.5 [facility] HEMATOLOGY Eosinophils 1.0 0.0 - 4.0 08 a [facility] HEMATOLOGY Monocytes 7.4 2.0 - 12.0 03/22 [facility] HEMATOLOGY Lymphocytes 38.6 20.0 - 08 [place] 40.0 /2014 [facility] HEMATOLOGY Segs 52.0 45.0 - 08 [place] 75.0 /2014 [facility] HEMATOLOGY Basophils 1.0 0.0 - 1.0 03/22 [facility] HEMATOLOGY Segs-Bands # 6.1 1.5 - 8.1 08 [facility] HEMATOLOGY Basophils # 0.1 0.0 - 0.2 03/22 [facility] HEMATOLOGY Monocytes # 0.9 0.0 - 0.8 03/22 [facility] HEMATOLOGY Eosinophils # 0.1 0.0 - 0.5 03/22 [facility] HEMATOLOGY Lymphocytes # 4.5 1.0 - 5.5 03/22 [facility] IMMUNOLOGY Alpha 1 % 5.0 2.8 - 4.9 03/21 [facility] IMMUNOLOGY Gamma % 14.5 11.1 - 03/21 18.7 /2014 [facility] IMMUNOLOGY Alpha 2 % 16.2 7.0 - 11.9 03/21 [facility] IMMUNOLOGY Beta % 15.1 7.8 - 13.7 03/21 [facility] IMMUNOLOGY Albumin % 49.2 55.8 - 08 [place] 66.1 /2014 [facility] IMMUNOLOGY Alpha 1 Glob 0.34 0.18 - 03/21 [place] 0.41 /2014 [facility] IMMUNOLOGY Tot Prot 6.8 6.4 - 8.4 03/21 (SPE) [facility] IMMUNOLOGY SPE Interp Total 03/21 [facility] protein Medical within the Center reference [...] with the resident&a pos;s interpreta tion. CPT 38185-VF IMMUNOLOGY Albumin (SPE) 3.35 3.57 - 08 [place] 5.55 /2014 [facility] IMMUNOLOGY Gamma Glob 0.99 0.71 - 08 [facility] 1.57 [facility] IMMUNOLOGY Alpha 2 Glob 1.10 0.45 - 08 1.00 [facility] IMMUNOLOGY Beta Glob 1.03 0.50 - 03/21 1.15 [facility] CHEM PANEL eGFR 101 03/21 Result Comment: [...] Calcium Lvl 9.1 8.5 - 10.5 03/21 [facility] CHEM PANEL Potassium Lvl 3.8 3.5 - 5.1 03/21 [facility] CHEM PANEL CO2 21 24 - 32 03/21 [facility] CHEM PANEL Chloride Lvl 110 95 - 109 03/21 [facility] CHEM PANEL BUN 11 7 - 22 03/21 [facility] CHEM PANEL Sodium Lvl 142 135 - 145 03/21 [facility] CHEM PANEL Glucose Lvl 83 70 - 99 03/21 [facility] CHEM PANEL Creatinine 0.7 0.5 - 1.4 03/21 [facility] CHEM PANEL AGAP 14.8 10.0 - 08 20.0 [facility] CHEM PANEL Magnesium Lvl 1.8 1.8 - 2.4 03/21 [facility] CHEM PANEL Phosphorus 4.1 2.5 - 4.5 03/21 [facility] HEMATOLOGY Eosinophils # 0.1 0.0 - 0.5 08/ [facility] HEMATOLOGY Monocytes # 0.7 0.0 - 0.8 08/ [facility] HEMATOLOGY Basophils 1.0 0.0 - 1.0 08/ [facility] HEMATOLOGY Eosinophils 1.2 0.0 - 4.0 08/ [facility] HEMATOLOGY Lymphocytes # 3.7 1.0 - 5.5 08 [facility] HEMATOLOGY Segs-Bands # 5.4 1.5 - 8.1 08 [facility] HEMATOLOGY Monocytes 6.9 2.0 - 12.0 08/ [facility] HEMATOLOGY Basophils # 0.1 0.0 - 0.2 03/21 [facility] HEMATOLOGY Segs 54.0 45.0 - 08 75.0 [facility] HEMATOLOGY Lymphocytes 36.9 20.0 - 08 40.0 [facility] HEMATOLOGY Hct 32.9 36.0 - 08 48.0 [facility] HEMATOLOGY Hgb 10.8 12.0 - 08 16.0 [facility] HEMATOLOGY RBC 3.91 4.20 - 08 [place] 5.40 /2014 [facility] HEMATOLOGY WBC 10.0 3.7 - 10.4 08 [facility] HEMATOLOGY MCHC 32.9 32.0 - 08/ 36.0 [facility] HEMATOLOGY RDW 17.2 11.5 - 08 14.5 [facility] HEMATOLOGY MCH 27.7 27.0 - 08 31.0 [facility] HEMATOLOGY MCV 84.2 80.0 - 08 98.0 [facility] HEMATOLOGY MPV 7.5 7.4 - 10.4 03/21 [facility] HEMATOLOGY Platelet 251 133 - 450 03/21 [facility] IMMUNOLOGY IgG Lvl CSF 6.4 2.0 - 4.0 03/21 [facility] CHEM PANEL eGFR 101 08/ Result Comment: [...] Sodium Lvl 141 135 - 145 03/20 [facility] CHEM PANEL Glucose Lvl 71 70 - 99 03/20 [facility] CHEM PANEL BUN 7 7 - 22 03/20 [facility] CHEM PANEL Creatinine 0.7 0.5 - 1.4 03/20 [facility] CHEM PANEL Potassium Lvl 3.9 3.5 - 5.1 03/20 [facility] CHEM PANEL Calcium Lvl 9.2 8.5 - 10.5 03/20 [facility] CHEM PANEL Chloride Lvl 108 95 - 109 03/20 [facility] CHEM PANEL CO2 23 24 - 32 03/20 [facility] CHEM PANEL AGAP 13.9 10.0 - 03/20 [place] 20.0 [facility] CHEM PANEL Magnesium Lvl 1.9 1.8 - 2.4 03/20 [facility] CHEM PANEL Phosphorus 3.6 2.5 - 4.5 03/20 [facility] HEMATOLOGY MCHC 33.2 32.0 - 08 [place] 36.0 [facility] HEMATOLOGY Platelet 285 133 - 450 03/20 [facility] HEMATOLOGY RDW 17.2 11.5 - 03/20 14.5 [facility] HEMATOLOGY RBC 4.07 4.20 - 08 [place] 5.40 /2014 [facility] HEMATOLOGY WBC 9.6 3.7 - 10.4 03/20 [facility] HEMATOLOGY Hgb 11.2 12.0 - 03/20 [place] 16.0 /2014 [facility] HEMATOLOGY Hct 33.6 36.0 - 03/20 48.0 /2014 [facility] HEMATOLOGY MCV 82.6 80.0 - 03/20 98.0 /2014 [facility] HEMATOLOGY MCH 27.4 27.0 - 03/20 31.0 /2014 [facility] HEMATOLOGY MPV 7.7 7.4 - 10.4 03/20 [facility] HEMATOLOGY Segs 55.3 45.0 - 03/20 [place] 75.0 /2014 [facility] HEMATOLOGY Basophils 1.9 0.0 - 1.0 03/20 [facility] HEMATOLOGY Lymphocytes 35.6 20.0 - 03/20 40.0 /2014 [facility] HEMATOLOGY Monocytes 6.2 2.0 - 12.0 03/20 [facility] HEMATOLOGY Eosinophils 1.0 0.0 - 4.0 03/20 [facility] HEMATOLOGY Segs-Bands # 5.3 1.5 - 8.1 03/20 [facility] HEMATOLOGY Lymphocytes # 3.4 1.0 - 5.5 03/20 [place] [facility] HEMATOLOGY Monocytes # 0.6 0.0 - 0.8 03/20 [facility] HEMATOLOGY Eosinophils # 0.1 0.0 - 0.5 03/20 [facility] HEMATOLOGY Basophils # 0.2 0.0 - 0.2 03/20 s [facility] IMMUNOLOGY IgG Lvl 971 284 - 1618 03/20 [facility] HEMATOLOGY dRVV Ratio 0.91 <=1.20 03/19 [facility] HEMATOLOGY Hex Phos N Negative Negative 03/19 [facility] (03/19/15 11:56 AM) /[facility] [place] HEM[facility]OLOG[facility] Lup Interp Negative 03/19 [facility] for lupus [facility] ant with all tests performed (dRVVT, and hexagonal phospholip id neutraliza tion). CPT: 22420 IMMUNOLOGY Treponemal Non Reactive Non 03/19 [facility] xa Scr *NA* Reactive /2014 [facility] (03/19/15 11:56 AM) Center IMMUNOLOGY HIV 1/2 Ab Negative Negative 03/18 [facility] *NA* /2014 Medical (03/18/15 4:44 PM) Center VIRAL - W Nile Ab IgM <0.90 03/18 Result [facility] SEROLOGY Comment: Medical REFERENCE Center RANGE: [...] by other flavivirus infections
(e.g. Dengue virus, Latimer encephalitis virus)
ma y show cross-reactiv ity with WNV.
Test Performed at:
[facility]
[address] [facility] [address] Paige Gant MD CARDIAC Troponin-I <0.02 0.00 - 03/18 [facility] ENZYMES 0.40 /2014 [facility] HEMATOLOGY PT 14.5 12.0 - 03/17 [facility] 14.7 /2015 [facility] HEMATOLOGY INR 1.12 0.85 - 03/17 [place] 1.17 /2014 [facility] HEMATOLOGY PTT 31.2 22.9 - 03/17 [facility] 35.8 /2015 [facility] CARDIAC Troponin-I <0.02 0.00 - 03/17 [facility] ENZYMES 0.40 /2014 [facility] CHEM PANEL Ammonia 71.0 <=45.0 03/17 [facility] uMol/L /2014 [facility] BODY FLUIDS Glucose CSF 42 45 - 80 03/17 [facility] BODY FLUIDS Monocyte CSF 9 15 - 45 03/17 [place] /2014 [facility] BODY FLUIDS Eos CSF 1 03/17 [facility] BODY FLUIDS Lymph CSF 90 40 - 80 03/17 Result Comment: This Medical differential Center demonstrates an increase in lymphocytes with a low RBC counts. Called savannah [email or web address]. Read back [place]. BODY FLUIDS Clarity CSF Clear Clear 03/17 [place] (03/17/15 11:15 AM) /2014 [facility] BODY FLUIDS Color CSF Colorless Colorless 03/17 [place] as (03/17/15 11:15 AM) /2014 [facility] BODY FLUIDS Tube Num CSF 3 03/17 [place] /2014 [facility] BODY FLUIDS Supernat CSF Colorless Colorless 03/17 (03/17/15 11:15 AM) [facility] BODY FLUIDS RBC CSF 3 0 - 03 03/17 [facility] BODY FLUIDS WBC CSF 140 0 - 53 03/17 [facility] BODY FLUIDS Protein CSF 71 15 - 45 03/17 Result Comment: Medical "Significant Center Findings called lj _Sonny Waters_at _03/17/2015 16:03_by _AAC_.Read Back [place]." IMMUNOLOGY V-erpkip-I-As < 1:1 < 1:1 03/17 [place] Rc[facility] Comment: Medical Ab CSF INTERPRETIVE Center INFORMATION: Q-sneetu-K-As partate
Receptor Ab, CSF
Anti- NMDA receptor [...]
Test developed and characteristi cs determined by [facility]. See Compliance Statement B: [email or web address] S
Perform ed by [facility],
[address], [facility] [place] [address]
[email or web address], Horacio Stinson MD - Lab. counter cutter VZV PCR NOT 03/17 Result [facility] Comment: Medical REFERENCE Center RANGE: NOT DETECTED

This test was developed and its performance<b r/>characteri stics have been determined by [facility]. Performance characteristi cs refer to
the analytical performance of the test.

This test is performed pursuant to a license
a greement with [employer]
Test Performed at:
[facility]
[address] [facility]
[place] [address] Paige Gant MD IMMUNOLOGY Source CSF 03/17 [place] /2014 [facility] IMMUNOLOGY VDRL Scr CSF Non Reactive Non 03/17 [place] (03/17/15 11:15 AM) Reactive /2014 [facility] MOLECULAR HSV 2 by PCR Negative 9 [...] HSV Cerebral 03/17 [place] DIAGNOSTIC Spinal /2014 [facility] VIRAL - Enterovirus Negative Negative 03/17 [facility] SEROLOGY PCR CSF (03/17/15 11:15 AM) /2014 [facility] BACTERIAL - MRSA by PCR Negative 03/17 [place] SER[place] (03/17/15 7:34 AM) /2014 [facility] CHEM PANEL Procalcitonin <0.05 0.00 - 03/17 [place] L[place] ng/mL 0.10 /2014 [facility] TOXICOLOGY Valproic Acid 115 50 - 100 03/17 [place] Lvl /2014 [facility] BLOOD BANK Antibody Scrn Negative 03/17 [place] RESULTS (03/16/15 9:18 PM) /2014 [facility] BLOOD BANK ABO/Rh O POS 03/17 [place] RESULTS /2014 [facility] CHEM PANEL A/G Ratio 0.7 0.7 - 1.6 03/17 [facility] CHEM PANEL B/C Ratio 12 6 - 25 03/17 2014 [facility] CHEM PANEL Globulin 3.9 2.0 - 4.0 03/17 [facility] CHEM PANEL AST 5 0 - 37 03/17 2014 [facility] CHEM PANEL Alk Phos 110 39 - 136 03/17 2014 [facility] CHEM PANEL Bili Total 0.2 0.2 - 1.3 03/17 [facility] CHEM PANEL ALT 19 0 - 65 03/17 [facility] CHEM PANEL Total Protein 6.8 6.4 - 8.4 03/17 [facility] CHEM PANEL Albumin Lvl 2.9 3.5 - 5.0 03/17 [place] /2014 [facility] DRUG SCREEN UDS Note See Note 03/17 [...] 29.7 22.9 - 07/31 [place] 35.8 /2014 [facility] PARATHYROID Ca Ion WB 1.15 1.05 - 03/17 [facility] PROFILE 1.25 [facility] PARATHYROID Ca Norm WB 1.12 1.05 - 03/17 [facility] PROFILE 1. [facility] URINE AND UA Bili Negative Negative 03/17 [facility] STOOL *NA* /2014 [facility] (03/16/15 9:18 PM) [place] URINE AND UA Ketones Negative Negative 03/17 [facility] mg/dL mg/dL /2014 [facility] URINE AND UA Nitrite Negative Negative 03/17 [facility] (03/16/15 9:18 PM) /2014 [facility] URINE AND UA Leuk Est Negative Negative 03/17 [facility] (03/16/15 9:18 PM) /2014 [facility] URINE AND UA Blood Negative Negative 03/17 [facility] (03/16/15 9:18 PM) /2014 [facility] URINE AND UA Mucus Few /LPF None Seen 03/17 [facility] [facility] /LPF /2014 [facility] URINE AND UA Sq Epi Occasional Few /LPF 03/17 [facility] /LPF /2014 [facility] URINE AND UA RBC <1 0 - 2 03/17 [facility] /2014 [facility] URINE AND UA <=1.0 0.1 - 1.0 03/17 [facility] Urobilinogen mg/dL /2014 [facility] URINE AND UA Glucose Negative Negative 03/17 [facility] mg/dL mg/dL /2014 [facility] URINE AND UA pH 7.0 5.0 - 8.0 03/17 [facility] /2014 [facility] URINE AND UA Protein Negative Negative 03/17 [facility] mg/dL mg/dL /2014 [facility] URINE AND UA Turbidity Clear Clear 03/17 [facility] (03/16/15 9:18 PM) /2014 [facility] URINE AND UA Spec Grav 1.009 <=1.030 03/17 [facility] /2014 [facility] URINE AND UA Color Light Yellow Yellow 03/17 [facility] STOOL *NA* /2014 Medical (03/16/15 9:18 PM) [place] HEMATOLOGY PTT 36.1 22.9 - 03/16 <sup>20</sup> [facility] s 35.8 /2014 Interpretive Medical Data: Heparin Center Therapeutic Range: 57 - 92 [place] HEMATOLOGY PT 14.6 12.0 - 10/31 [facility] 14.7 /2014 [facility] HEMATOLOGY INR 1.13 0.85 - 10/31 <sup>16</sup> [place] 1.17 Interpretive Medical Data: Center RECOMMENDED RANGES FOR PROTIME INR:
2.0-3.0 for most medical and surgical thromboemboli c states.
2.5-3.5 for artificial heart valves and recurrent embolism.<br/ >
INR SHOULD BE USED ONLY FOR PATIENTS ON STABLE ANTICOAGULANT THERAPY. TOXICOLOGY Vanco Tr TND 0830 10/31 [facility] TOXICOLOGY Vanco Tr 25.2 10/31 <sup>9</sup>I [facility] nterpretive Medical Data: [place] Therapeutic Range:
Trough: 10 - 20 ug/mL
Peak: 20 - 40 ug/mL
Potential Toxicity: >80 ug/mL CHEM PANEL Phosphorus 3.1 2.5 - 4.5 10/31 [facility]2014 [facility] CHEM PANEL Magnesium Lvl 1.8 1.8 - 2.4 10/[place] [facility] ELECTROLYTE AGAP 14.1 10.0 - 10/31 [facility] S 20.0 [facility] ELECTROLYTE eGFR 107 10/31 <sup>1</sup>R [facility] Medical Comment: The [place] eGFR is calculated using the CKD-EPI formula. [...] 142 135 - 145 10/31 [place] [facility] ELECTROLYTE Chloride Lvl 107 95 - 109 10/31 [place] as [facility] ELECTROLYTE Potassium Lvl 4.1 3.5 - 5.1 10/31 [place] [facility] ELECTROLYTE Calcium Lvl 8.5 8.5 - 10.5 10/31 [facility] xa [facility] ELECTROLYTE CO2 25 24 - 32 10/31 [facility] ELECTROLYTE Creatinine 0.6 0.5 - 1.4 10/31 [place] [facility] ELECTROLYTE Glucose Lvl 62 70 - 99 10/31 <sup>4</sup>I nterpretive Medical Data: Adult Center reference range values reflect the clinical guidelines
of the [employer]. ELECTROLYTE BUN 6 7 - 22 10/31 [facility] HEMATOLOGY Basophils # 0.1 0.0 - 0.2 10/31 [facility] HEMATOLOGY Segs-Bands # 5.7 1.5 - 8.1 10/31 [facility] HEMATOLOGY Eosinophils 5.0 0.0 - 4.0 10/31 [facility] HEMATOLOGY Lymphocytes 31.1 20.0 - 10/31 [place] 40.0 [facility] HEMATOLOGY Monocytes 5.7 2.0 - 12.0 10/31 [facility] HEMATOLOGY Segs 57.7 45.0 - 10/31 [place] 75.0 [facility] HEMATOLOGY Basophils 0.5 0.0 - 1.0 10/31 [facility] HEMATOLOGY Monocytes # 0.6 0.0 - 0.8 10/31 [facility] HEMATOLOGY Eosinophils # 0.5 0.0 - 0.5 10/31 [facility] HEMATOLOGY Lymphocytes # 3.1 1.0 - 5.5 10/31 [facility] HEMATOLOGY INR 1.08 0.85 - 10/31 <sup>17</sup> [facility] 1. Interpretive Medical Data: Center RECOMMENDED RANGES FOR PROTIME INR:
2.0-3.0 for most medical and surgical thromboemboli c states.
2.5-3.5 for artificial heart valves and recurrent embolism.<br/ >
INR SHOULD BE USED ONLY FOR PATIENTS ON STABLE ANTICOAGULANT THERAPY. HEMATOLOGY PTT 33.9 22.9 - 03 <sup>21</sup> [place] 35.8 /2014 Interpretive Medical Data: [facility] Center Therapeutic Range: 57 - 92 Second[place] HEMATOLOGY PT 14.1 12.0 - 10/31 [place] 14.7 /2014 [facility] HEMATOLOGY WBC 10.0 3.7 - 10.4 10/31 /2014 [facility] HEMATOLOGY RBC 3.22 4.20 - 03 [place] 5.40 /2014 [facility] HEMATOLOGY Hct 28.9 36.0 - 10/31 [place] 48.0 /2014 [facility] HEMATOLOGY Hgb 9.7 12.0 - 03 [place] 16.0 /2014 [facility] HEMATOLOGY MCHC 33.4 32.0 - 10/31 [place] 36.0 /2014 [facility] HEMATOLOGY MCH 30.0 27.0 - 10/31 [place] 31.0 /2014 [facility] HEMATOLOGY MCV 89.8 80.0 - 10/31 [place] 98.0 /2014 [facility] HEMATOLOGY MPV 8.2 7.4 - 10.4 10/31 /2014 [facility] HEMATOLOGY Platelet 174 133 - 450 10/31 /2014 [facility] HEMATOLOGY RDW 16.4 11.5 - 03 [place] 14.5 [facility] PARATHYROID Ca Ion WB 1.08 1.05 - 10/31 [place] PROFILE 1.25 /2014 [facility] PARATHYROID Ca Norm WB 1.05 1.05 - 10/31 [place] PROFILE 1.25 [facility] CARDIAC Total CK 70 12 - 191 10/30 [place] ENZYMES [facility] CHEM PANEL Phosphorus 3.2 2.5 - 4.5 10/30 [place] /2014 [facility] CHEM PANEL Magnesium Lvl 1.8 1.8 - 2.4 10/30 [place] /2014 [facility] ELECTROLYTE AGAP 10.6 10.0 - 10/30 [place] S 20.0 [facility] ELECTROLYTE Glucose Lvl 79 70 - 99 10/30 <sup>5</sup>I [facility] S /2014 nterpretive Medical Data: Adult Center reference range values reflect the clinical guidelines
of the [employer]. ELECTROLYTE BUN 8 7 - 22 10/30 [facility] ELECTROLYTE Creatinine 0.6 0.5 - 1.4 10/30 [place] [facility] ELECTROLYTE CO2 27 24 - 32 10/30 [facility] ELECTROLYTE Calcium Lvl 8.1 8.5 - 10.5 10/30 [place] [facility] ELECTROLYTE Potassium Lvl 3.6 3.5 - 5.1 10/30 [place] [facility] ELECTROLYTE Chloride Lvl 109 95 - 109 10/30 [place] S [facility] ELECTROLYTE Sodium Lvl 143 135 - 145 10/30 [place] [facility] ELECTROLYTE eGFR 107 10/30 <sup>2</sup>R [facility] Comment: The Center eGFR is calculated using [...] # 0.4 0.0 - 0.5 10/30 [place] [facility] HEMATOLOGY Lymphocytes # 4.9 1.0 - 5.5 10/30 [facility] HEMATOLOGY Monocytes # 0.6 0.0 - 0.8 10/30 [facility] HEMATOLOGY Segs 49.4 45.0 - 10/30 [place] 75.0 [facility] HEMATOLOGY Segs-Bands # 5.8 1.5 - 8.1 10/30 [facility] HEMATOLOGY Eosinophils 3.7 0.0 - 4.0 10/30 [facility] HEMATOLOGY Lymphocytes 41.4 20.0 - 10/30 [place] 40.0 /2014 [facility] HEMATOLOGY Basophils 0.4 0.0 - 1.0 10/30 [facility] HEMATOLOGY Monocytes 5.1 2.0 - 12.0 10/30 /2014 [facility] HEMATOLOGY MCH 29.4 27.0 - 10/30 [place] 31.0 /2014 [facility] HEMATOLOGY Hct 27.5 36.0 - 10/30 [place] 48.0 /2014 [facility] HEMATOLOGY RDW 16.3 11.5 - 10/30 [place] 14.5 /2014 [facility] HEMATOLOGY Platelet 137 133 - 450 10/30 [facility] HEMATOLOGY MPV 8.4 7.4 - 10.4 10/30 [facility] HEMATOLOGY Hgb 9.1 12.0 - 10/30 [place] 16.0 /2014 [facility] HEMATOLOGY MCHC 33.0 32.0 - 10/30 [place] 36.0 /2014 [facility] HEMATOLOGY RBC 3.09 4.20 - 10/30 [place] 5.40 /2014 [facility] HEMATOLOGY WBC 11.8 3.7 - 10.4 10/30 [facility] HEMATOLOGY MCV 89.0 80.0 - 10/30 [place] 98.0 /2014 [facility] HEMATOLOGY PT 13.5 12.0 - 10/30 [place] 14.7 /2014 [facility] HEMATOLOGY INR 1.03 0.85 - 10/30 <sup>18</sup> [...] Ca Norm WB 1.10 1.05 - 10/30 [facility] PROFILE 1. [facility] PARATHYROID Ca Ion WB 1.11 1.05 - 10/30 [facility] PROFILE . [facility] CARDIAC Total CK 49 12 - 191 10/30 [facility] ENZYMES [facility] CARDIAC Troponin-T <0.010 0.000 - 10/30 [place] ENZYMES 0.100 /2014 [facility] CARDIAC Troponin-I 0.02 0.00 - 10/30 [place] ENZYMES 0.40 /2014 [facility] HEMATOLOGY Eosinophils # 0.2 0.0 - 0.5 10/30 [place] [facility] HEMATOLOGY Monocytes # 0.3 0.0 - 0.8 10/30 [place] [facility] HEMATOLOGY Basophils 0.4 0.0 - 1.0 10/30 [facility] HEMATOLOGY Segs-Bands # 3.2 1.5 - 8.1 10/30 [facility] HEMATOLOGY Lymphocytes # 2.3 1.0 - 5.5 10/30 [place] [facility] HEMATOLOGY Monocytes 4.8 2.0 - 12.0 10/30 [facility] HEMATOLOGY Eosinophils 3.1 0.0 - 4.0 10/30 a s [facility] HEMATOLOGY Segs 53.2 45.0 - 10/30 [place] 75.0 [facility] HEMATOLOGY Lymphocytes 38.5 20.0 - 10/30 [place] 40.0 [facility] HEMATOLOGY Hct 14.9 36.0 - 10/30 <sup>15</sup> [place] 48.0 /2014 Result Medical Comment: Center Critical Result(s) called to Cadence Solano at 10/30/2014 01:18 byJw. Read back OK. HEMATOLOGY MCHC 32.8 32.0 - 10/30 [place] 36.0 /2014 [facility] HEMATOLOGY MCH 30.3 27.0 - 10/30 [place] 31.0 /2014 [facility] HEMATOLOGY MCV 92.2 80.0 - 10/30 [place] 98.0 /2015 [facility] HEMATOLOGY RDW 16.3 11.5 - 10/30 [place] 14.5 /2014 [facility] HEMATOLOGY Hgb 4.9 12.0 - 10/30 <sup>14</sup> [place] 16.0 /2014 Result Medical Comment: Center Critical Result(s) called to Cadence Solano at 10/30/2014 01:18 byJw. Read back OK. HEMATOLOGY RBC 1.61 4.20 - 10/30 [place] 5.40 /2014 [facility] HEMATOLOGY WBC 6.0 3.7 - 10.4 10/30 [facility] HEMATOLOGY MPV 8.1 7.4 - 10.4 10/30 [facility] HEMATOLOGY Platelet 73 133 - 450 10/30 [facility] PARATHYROID Ca Norm WB 0.63 1.05 - 10/30 [place] PROFILE 09.11 [facility] PARATHYROID Ca Ion WB 0.62 1.05 - 10/30 <sup>7</sup>R [place] PROFILE 09.11 esult Medical Comment: Center Critical Result(s) called to della pal at 10/30/2014 01:05 frida. Read back OK. CARDIAC Troponin-I <0.02 0.00 - 10/29 [facility] ENZYMES 0.40 /2014 [facility] CARDIAC Troponin-T <0.010 0.000 - 10/29 [facility] ENZYMES 0.100 /2014 [facility] CARDIAC Total CK 83 12 - 191 10/29 [facility] ENZYMES /2014 [facility] CARDIAC CK MB Index 0.7 0.0 - 2.5 10/29 [facility] ENZYMES /2014 [facility] CARDIAC CK MB 0.6 0.5 - 3.6 10/29 [facility] ENZYMES /2014 [facility] TOXICOLOGY Vanco Tr TND 0000 10/29 [facility] TOXICOLOGY Vanco Tr 23.9 10/29 <sup>10</sup> [facility] Interpretive Medical Data: Center Therapeutic Range:
Trough: 10 - 20 ug/mL
Peak: 20 - 40 ug/mL
Potential Toxicity: >80 ug/mL CHEM PANEL Lactic Acid 0.7 0.5 - 2.2 10/29 [place] [facility] CHEM PANEL Magnesium Lvl 1.8 1.8 - 2.4 10/29 [place] [facility] CHEM PANEL Phosphorus 2.8 2.5 - 4.5 10/29 [facility] ELECTROLYTE AGAP 11.0 10.0 - 10/29 [facility] S 20.0 [facility] ELECTROLYTE BUN 10 7 - 22 10/29 [facility] S [facility] ELECTROLYTE Glucose Lvl 83 70 - 99 10/29 <sup>6</sup>I nterpretive Medical Data: Adult Center reference range values reflect the clinical guidelines
of the [employer]. ELECTROLYTE Sodium Lvl 145 135 - 145 10/29 [facility] ELECTROLYTE Creatinine 0.7 0.5 - 1.4 10/29 [facility] s S l [facility] ELECTROLYTE eGFR 101 10/29 <sup>3</sup>R [facility] Medical Comment: The Center eGFR is [...] ELECTROLYTE CO2 24 24 - 32 10/29 [facility] ELECTROLYTE Calcium Lvl 7.9 8.5 - 10.5 10/29 [place] [facility] ELECTROLYTE Chloride Lvl 114 95 - 109 10/29 [facility] ELECTROLYTE Potassium Lvl 4.0 3.5 - 5.1 10/29 [place] [facility] HEMATOLOGY Basophils # 0.1 0.0 - 0.2 10/29 [facility] 2014 [facility] TOXICOLOGY Vanco Tr TND 10/30 830 10/28 [facility] TOXICOLOGY Vanco Tr 9.7 10/28 <sup>11</sup> [facility] Interpretive Medical Data: Center Therapeutic Range:
Trough: 10 - 20 ug/mL
Peak: 20 - 40 ug/mL
Potential Toxicity: >80 ug/mL HEMATOLOGY Pat Od Value 0.046 10/28 [facility]2014 [facility] HEMATOLOGY Pos CO Value 0.392 10/[address] HEMATOLOGY Heparin Negative Negative 10/28 [facility] Ab(REGI) (10/28/14 6:00 AM) /2014 [facility] CHEM PANEL Lactic Acid 1.0 0.5 - 2.2 10/27 [place] /2014 [facility] IMMUNOLOGY C-REACTIVE 24.4 <=2.9 mg/L 10/[place] PROTEIN /2014 [facility] THYROID TSH 0.120 0.360 - 10/27 [facility] PANEL 3.740 /2014 [facility] THYROID T4 Free 0.96 0.76 - 10/27 [facility] PANEL 1.46 /2014 [facility] CHEM PANEL Lactic Acid 1.6 0.5 - 2.2 10/27 [place] /2014 [facility] HEMATOLOGY RBC Morph Normal 10/27 [facility] (10/27/14 2:00 AM) /2014 [facility] HEMATOLOGY Plt Morph Normal 10/27 [facility] (10/27/14 2:00 AM) /2014 [facility] HEMATOLOGY Sed Rate 28 0 - 20 10/27 [facility] TOXICOLOGY Cyanide Lvl <0.1 <0.1 mg/L 10/26 <sup>12</sup> M H Result Medical Comment: Test Center Performed at:
[facility] [place]<br/ >Beatty Piercy, [facility] Scarlett Howe
[place], [place] K Vijay [facility]ERSON TOXICOLOGY Cyanide Lvl <0.1 <0.1 mg/L 10/26 <sup>13</sup> M H Result Medical Comment: Test Center Performed at:
[facility] [place]<br/ >Rogerio Rojas [id number]
[place], [place] Vijay [facility] BLOOD BANK Antibody Scrn Negative 10/26 [facility] as RESULTS (10/26/14 4:24 PM) /2014 [facility] BLOOD BANK ABO/Rh O POS 10/26 [facility] RESULTS /2014 [facility] CHEM PANEL Lipase Lvl 70 73 - 393 10/26 [facility] CHEM PANEL Procalcitonin 0.15 0.00 - 10/26 [place] 0.10 /2014 [facility] HEMATOLOGY Fibrinogen 348 230 - 510 10/26 [facility] Lvl /2014 [facility] HEMATOLOGY D-Dimer 0.21 10/26 <sup>19</sup> Interpretive Medical [...] DVT/PE. IMMUNOLOGY C-REACTIVE 29.2 <=2.9 mg/L 10/26 [facility] s PROTEIN [facility] CARDIAC Troponin-T <0.010 0.000 - 10/26 [facility] ENZYMES 0.100 /2014 [facility] CARDIAC Troponin-I 0.02 0.00 - 10/26 [facility] ENZYMES 0.40 [facility] CHEM PANEL Procalcitonin 0.14 0.00 - 10/26 [facility] s Lvl 0.10 [facility] HEMATOLOGY RBC Morph Normal 10/26 [facility] (10/26/14 1:30 PM) [facility] HEMATOLOGY Plt Morph Normal 10/26 [facility] (10/26/14 1:30 PM) /2014 [facility] HEMATOLOGY Atypical 0.0 <=0.0 % 10/26 [facility] Lymph [facility] HEMATOLOGY Bands 1.0 0.0 - 11.0 10/[address] CHEM PANEL Bili Indirect 0.1 0.0 - 1.0 10/26 [facility] CHEM PANEL Bili Total 0.2 0.2 - 1.3 10/26 [facility] CHEM PANEL Bili Direct 0.1 0.0 - 0.3 10/26 [facility] CHEM PANEL AST 11 0 - 37 10/26 [facility]2014 [facility] CHEM PANEL Alk Phos 115 39 - 136 10/26 [facility]2014 [facility] CHEM PANEL Albumin Lvl 2.9 3.5 - 5.0 10/26 [facility] 2014 [facility] CHEM PANEL Globulin 3.2 2.0 - 4.0 10/[address] CHEM PANEL Total Protein 6.1 6.4 - 8.4 10/26 [facility] CHEM PANEL ALT 23 0 - 65 10/26 [facility] CHEM PANEL A/G Ratio 0.9 0.7 - 1.6 10/26 [facility] HEMATOLOGY Basophils # 0.1 0.0 - 0.2 10/26 a s [facility] CHEM PANEL Procalcitonin 0.05 0.00 - 10/26 [place] L[place] 0.10 [facility] DRUG SCREEN U Opiate Scr Negative Negative 10/26 [place] (10/[place]/14 1:40 AM) /[facility] Cannab Scr Negative Negative 10/26 [place] (10/26/14 1:40 AM) /2014 [facility] DRUG [facility]EN U Cocaine Scr Negative Negative 10/26 [place] (10/26/14 1:40 AM) /2014 [facility] DR[facility] S[facility]EN U Benzodia Positive Negative 10/26 [facility] s Scr *ABN* /2014 [facility] (10/26/14 1:40 AM) Center DRUG SCREEN U Phencyc Scr Negative Negative 10/26 [place] (10/26/14 1:40 AM) /2014 [facility] DRUG SCREEN UDS Note See Note 8 10/26 <sup>8</sup>I [facility] (10/26/14 1:40 AM) nterpretive Wy dical Data: Drugs Center reported as positive have not been confirmed by a second
ma thod and should be used for medical [...] SCREEN U Amph Scr Negative Negative 10/26 [facility] (10/26/14 1:40 AM) /[facility] DRUG SCREEN U Starla Scr Negative Negative 10/26 [facility] (10/26/14 1:40 AM) /2014 [facility] URINE AND UA Glucose Negative Negative 10/26 [facility] STOOL (10/26/14 1:40 AM) /2014 [facility] URINE AND UA Protein Negative Negative 10/26 [facility] (10/26/14 1:40 AM) /2014 [facility] URINE AND UA Ketones Negative Negative 10/26 [facility] (10/26/14 1:40 AM) /2014 [facility] URINE AND UA Renal Epi 5 <=0 /LPF 10/26 [facility] /2014 [facility] URINE AND UA Mucus Few /LPF None Seen 10/26 [facility] STOOL /LPF /2014 [facility] URINE AND UA Sq Epi Moderate Few /LPF 10/26 [facility] /LPF /2014 [facility] URINE AND UA Hyal Cast 28 0 - 2 10/26 [facility] /2014 [facility] URINE AND UA Blood Negative Negative 10/26 [facility] (10/26/14 1:40 AM) [facility] URINE AND UA Bili Negative Negative 10/26 [facility] (10/26/14 1:40 AM) /2014 [facility] URINE AND UA Nitrite Negative Negative 10/26 [facility] (10/26/14 1:40 AM) [facility] URINE AND UA <=1.0 0.1 - 1.0 10/26 [facility] Urobilinogen /2014 [facility] URINE AND UA Leuk Est Negative Negative 10/26 [facility] (10/26/14 1:40 AM) [facility] URINE AND UA Spec Grav 1.009 <=1.030 10/26 [facility] /[address] [place] [address] URINE AND UA Turbidity Slight Clear 10/26 [facility] *ABN* /2014 [facility] (10/26/14 1:40 AM) [place] URINE AND UA Color Yellow Yellow 10/26 [facility] (10/26/14 1:40 AM) Medica l [place] URINE AND UA pH 5.0 5.0 - 8.0 10/26 [facility] STOOL /2014 [facility] HEMATOLOGY Angle 76.5 53.0 - 10/26 [facility] 72.0 [facility] HEMATOLOGY Max Amp 74.1 50.0 - 10/26 [facility] 70.0 [facility] HEMATOLOGY G-value 14.3 4.5 - 11.0 10/26 [facility] /2014 [facility] HEMATOLOGY TEG Data See Note 23 10/26 <sup>23</sup> [facility] (10/25/14 9:45 PM) Interpretive M edical [...] HEMATOLOGY Coag Index 3.4 -3.0-3.0 - 10/26 [facility] s 3.0 [facility] HEMATOLOGY K-time 1.0 1.0 - 3.0 10/26 [facility] HEMATOLOGY R-time 5.1 5.0 - 10.0 10/26 [facility]2014 [facility] HEMATOLOGY Ly30 0.9 0.0 - 7.5 10/26 [facility]2014 [facility] HEMATOLOGY TEG Interp Thrombelas 10/26 [facility] tograph [facility] show increased values of both Angle Alpha and MA. These findings are suggestive of platelet hypercoagu lation. CPT:63542 LIPIDS VLDL 35 10/26 [facility] LIPIDS LDL 60 <=99 mg/dL 10/26 [facility] (Calculated) [facility] LIPIDS CHD Risk 2.76 3.90 - 10/26 [facility] 5.80 [facility] LIPIDS HDL 54 >=61 mg/dL 10/26 [facility] LIPIDS Trig 173 <=149 10/26 [facility] mg/dL [facility] LIPIDS Chol 149 <=199 10/26 [facility] mg/dL [facility] SPECIAL Hgb A1C 5.7 <=5.6 % 10/26 [facility] CHEMISTRY [facility] CHEM PANEL Phosphorus 3.7 2.5 - 4.5 11/14 [facility] CHEM PANEL Magnesium Lvl 1.7 1.8 - 2.4 11/14 [place] [facility] ELECTROLYTE AGAP 13.6 10.0 - 11/14 [facility] S 20.0 [facility] ELECTROLYTE eGFR 87 11/14 <sup>1</sup>R [facility] as S [facility] Medical Comment: The Center eGFR is [...] ELECTROLYTE BUN 23 7 - 22 11/14 [facility] ELECTROLYTE Glucose Lvl 70 70 - 99 11/14 <sup>3</sup>I [facility] nterpretive Medical Data: [facility] reference range values reflect the clinical guidelines
of the [employer]. ELECTROLYTE Creatinine 0.8 0.5 - 1.4 11/14 [facility] s S Lvl [facility] ELECTROLYTE Sodium Lvl 140 135 - 145 11/14 [facility] S [facility] ELECTROLYTE Potassium Lvl 4.6 3.5 - 5.1 11/14 [place] [facility] ELECTROLYTE Chloride Lvl 107 95 - 109 11/14 [facility] as [facility] ELECTROLYTE CO2 24 24 - 32 11/14 [facility] ELECTROLYTE Calcium Lvl 8.8 8.5 - 10.5 11/14 [place] [facility] HEMATOLOGY INR 1.97 0.85 - 11/14 <sup>6</sup>I [facility] s 1.17 nterpretive Medical Data: Center RECOMMENDED RANGES FOR PROTIME INR:
2.0-3.0 for most medical and surgical thromboemboli c states.
2.5-3.5 for artificial heart valves and recurrent embolism.<br/ >
INR SHOULD BE USED ONLY FOR PATIENTS ON STABLE ANTICOAGULANT THERAPY. HEMATOLOGY PT 22.1 12.0 - 11/14 [facility] 14.7 [facility] LIPIDS LDL 93 <=99 mg/dL 11/14 [facility] (Calculated) [facility] LIPIDS VLDL 66 11/14 [facility] LIPIDS Trig 330 <=149 11/14 [facility] mg/dL [facility] LIPIDS Chol 197 <=199 11/14 [facility] mg/dL [facility] LIPIDS HDL 38 >=61 mg/dL 11/14 [facility] LIPIDS CHD Risk 5.18 3.90 - 11/14 [facility] 5.80 /2013 [facility] DRUG SCREEN U Phencyc Scr Positive Negative 11/14 [place] *ABN* [facility] (11/13/2013 20:09:21 [facility]) Center DRUG SCREEN UDS Note See Note 5 11/14 <sup>5</sup>I [facility] (11/13/2013 20:09:21 [facility]) nterpretive Medical Data: Drugs Center reported as [...] [place] *NA* /2013 Medical (11/13/2013 20:09:21 [facility] [facility]) Center DRUG SCREEN U [place] Positive Negative 11[place]14 [place] *ABN* Medical (11/13/2013 20:09:21 [place] Center DRUG SCREEN U O[place]ate [place] Positive Negative 11[place]14 [place] *[place]N* /2013 Medical (11/13/2013 20:09:21 [place] Center DRUG SCREEN U Cocaine [place] Negative Negative 11/14 [place] *NA* Medical (11/13/2013 20:09:21 [place] Center DRUG SCREEN U Cannab [place] 11[place]14 [place] *[place]* Medical (11/13/2013 20:09:21 [facility]) Center DRUG SCREEN U Amph [place] Negative Negative 11/14 [place] *NA* Medical (11/13/2013 20:09:21 [place] Center DRUG SCREEN U Methadone Negative Negative 11/14 [place] *NA* Medical (11/13/2013 20:09:21 [place] Center DRUG SCREEN U Propoxyph Negative Negative 11/14 [place] *NA* Medical (11/13/2013 20:09:21 [facility]) Center URINE AND UA Hyal Cast 2 0 - 2 11/14 [facility] /2013 [facility] URINE AND UA <=1.0 0.1 - 1.0 11/14 [facility] Urobilinogen mg/dL /2013 [facility] [place] URINE AND UA Turbidity Slight Clear 11/14 [facility] STOOL *ABN* Medical (11/13/2013 20:09:00 [place] [place] URINE AND UA Color Yellow Yellow 11/14 [facility] *NA* Medical (11/13/2013 20:09:00 [place] [place] URINE AND UA pH 6.5 5.0 - 8.0 11/14 [facility] STOOL /2013 [facility] URINE AND UA Spec Grav 1.024 <=1.030 11/14 [facility] STOOL Medical [place] URINE AND UA Protein 20 mg/dL Negative 11/14 [facility] STOOL mg/dL Medical Center URINE AND UA Ketones Negative Negative 11/14 [facility] STOOL mg/dL mg/dL [facility] [place] URINE AND UA Glucose Negative Negative 11/14 [facility] STOOL mg/dL mg/dL [facility] [place] URINE AND UA Blood Negative Negative 11/14 [facility] (11/13/2013 20:09:00 [place] /2013 Medical Center URINE AND UA Bili Negative Negative 11/14 [facility] STOOL *NA* /2013 Medical (11/13/2013 20:09:00 [place] Center URINE AND UA Leuk Est Small Negative 11/14 [facility] STOOL *ABN* Medical (11/13/2013 20:09:00 [place] Center URINE AND UA Nitrite Negative Negative 11/14 [facility] (11/13/2013 20:09:00 [place] Center URINE AND UA WBC 3 0 - 5 11/14 [facility] STOOL [facility] URINE AND UA Sq Epi Many /LPF Few /LPF 11/14 [facility] STOOL Medical Center URINE AND UA Bacteria Occasional None Seen 11[place]14 [place] /HPF /HPF /2013 [facility] [place] URINE AND UA RBC 1 0 - 2 11/14 [facility] STOOL [facility] URINE AND UA Amorph Occasional None Seen 11/14 [place] /HPF /HPF /2013 Medical Center URINE AND UA Mucus Few /LPF None Seen 11/14 [facility] STOOL /LPF /2013 Medical Center URINE CHEM U Preg Negative Negative 11/14 [facility] (11/13/2013 20:09:00 [place] /2013 Medical Center CARDIAC Troponin-T <0.010 0.000 - 11/13 [facility] ENZYMES 0.100 [facility] CARDIAC Troponin-I <0.02 0.00 - 11/13 [place] ENZYMES 0.40 [facility] CARDIAC Total CK 107 12 - 191 11/13 [facility] CARDIAC CK MB Index 0.5 0.0 - 2.5 11/13 [place] [facility] CARDIAC CK MB 0.5 0.5 - 3.6 11/13 [place] [facility] CHEM PANEL Bili Indirect 0.1 0.0 - 1.0 11/13 [place] [facility] CHEM PANEL Bili Total 0.2 0.2 - 1.3 11/13 [facility] CHEM PANEL Bili Direct 0.1 0.0 - 0.3 11/13 [place] [facility] CHEM PANEL AST 24 0 - 37 11/13 [facility] CHEM PANEL A/G Ratio 0.9 0.7 - 1.6 11/13 [facility] CHEM PANEL ALT 40 0 - 65 11/13 [facility] CHEM PANEL Total Protein 6.4 6.4 - 8.4 11/13 [place] [facility] CHEM PANEL Albumin Lvl 3.0 3.5 - 5.0 11/13 [facility] CHEM PANEL Globulin 3.4 2.0 - 4.0 11/13 [facility] CHEM PANEL Alk Phos 118 39 - 136 11/13 [facility] SPECIAL Hgb A1C 5.0 <=5.6 % 11/13 [facility] CARDIAC CK MB Index 0.6 0.0 - 2.5 11/13 [facility] CARDIAC Troponin-I <0.02 0.00 - 11/13 [facility] ENZYMES 0.40 [facility] CARDIAC CK MB 0.6 0.5 - 3.6 11/13 [facility] CARDIAC Total CK 108 12 - 191 11/13 [facility] CHEM PANEL eGFR 75 11/13 <sup>2</sup>R esult [...] PANEL AGAP 13.1 10.0 - 11/13 20. [facility] CHEM PANEL CO2 26 24 - 32 11/13 [facility] CHEM PANEL Chloride Lvl 106 95 - 109 11/13 [facility] CHEM PANEL Calcium Lvl 8.6 8.5 - 10.5 11/13 [facility] CHEM PANEL Creatinine 0.9 0.5 - 1.4 11/13 [facility] Lvl [facility] CHEM PANEL BUN 12 7 - 22 11/13 [facility] CHEM PANEL Potassium Lvl 4.1 3.5 - 5.1 11/13 [facility] CHEM PANEL Sodium Lvl 141 135 - 145 11/13 [facility] CHEM PANEL Glucose Lvl 81 70 - 99 11/13 <sup>4</sup>I nterpretive Medical Data: Adult Center reference range values reflect the clinical guidelines
of the [employer]. HEMATOLOGY Monocytes 4.1 2.0 - 12.0 11/13 [facility] HEMATOLOGY Eosinophils 1.4 0.0 - 4.0 11/13 [facility] HEMATOLOGY Basophils 0.0 0.0 - 1.0 11/13 [facility] HEMATOLOGY Segs-Bands # 4.7 1.5 - 8.1 11/13 [facility] HEMATOLOGY Lymphocytes # 6.0 1.0 - 5.5 11/13 [facility] HEMATOLOGY Monocytes # 0.5 0.0 - 0.8 11/13 [facility] HEMATOLOGY Segs 41.0 45.0 - 11/13 75.0 [facility] HEMATOLOGY Lymphocytes 53.5 20.0 - 11/13 40.0 [facility] HEMATOLOGY Eosinophils # 0.2 0.0 - 0.5 11/13 [facility] HEMATOLOGY Basophils # 0.0 0.0 - 0.2 11/13 [facility] HEMATOLOGY PT 24.2 12.0 - 11/13 14.7 [facility] HEMATOLOGY INR 2.22 0.85 - 11/13 <sup>7</sup>I [facility] s 1.17 nterpretive Medical Data: Center [...] HEMATOLOGY Platelet 486 133 - 450 11/13 [facility] HEMATOLOGY RDW 17.1 11.5 - 11/13 [place] 14.5 /2013 [facility] HEMATOLOGY MPV 7.0 7.4 - 10.4 11/13 [facility] HEMATOLOGY MCHC 33.7 32.0 - 11/13 [place] 36.0 [facility] HEMATOLOGY MCH 28.2 27.0 - 11/13 [place] 31.0 [facility] HEMATOLOGY RBC 4.35 4.20 - 11/13 [facility] 5.40 /2013 [facility] HEMATOLOGY WBC 11.4 3.7 - 10.4 11/13 [facility] HEMATOLOGY MCV 83.7 81.0 - 11/13 [facility] 99.0 /2013 [facility] HEMATOLOGY Hgb 12.3 12.0 - 11/13 16.0 [facility] HEMATOLOGY Hct 36.4 36.0 - 11/13 [facility] 48.0 [facility] CHEMISTRY AGAP 15.8 10.0 - 05/12 Normal [facility] 20. [facility] CHEMISTRY eGFR 136 05/12 NA <sup>5</sup>R esult [...] 7.7 8.5 - 10.5 05/12 LOW a [facility] CHEMISTRY BUN 5 7 - 22 05/12 LOW [facility] CHEMISTRY Glucose Lvl 72 70 - 99 05/12 Normal <sup>8</sup>I MH T ex nterpretive Medical Data: Adult Center reference range values reflect the clinical guidelines
of the [employer]. CHEMISTRY Chloride Lvl 107 95 - 109 05/12 Normal [facility] CHEMISTRY Potassium Lvl 3.8 3.5 - 5.1 05/12 Normal [facility] HEMATOLOGY Segs-Bands # 7.8 1.5 - 8.1 05/12 Normal [facility] HEMATOLOGY Lymphocytes # 3.5 1.0 - 5.5 05/12 Normal [place] [facility] HEMATOLOGY Monocytes # 0.9 0.0 - 0.8 05/12 [place] [facility] HEMATOLOGY Eosinophils # 0.3 0.0 - 0.5 05/12 Normal [place] [facility] HEMATOLOGY Basophils # 0.1 0.0 - 0.2 05/12 Normal [facility] HEMATOLOGY Monocytes 7.4 2.0 - 12.0 05/12 Normal [facility] HEMATOLOGY Basophils 0.7 0.0 - 1.0 05/12 Normal [facility] HEMATOLOGY Lymphocytes 27.8 20.0 - 05/12 Normal [...] MPV 7.7 7.4 - 10.4 05/12 Normal [facility] HEMATOLOGY WBC 12.8 3.7 - 10.4 05/12 [place] [facility] HEMATOLOGY RBC 3.82 4.20 - 05/12 LOW [facility] 5.40 /2012 [facility] HEMATOLOGY Hgb 11.0 12.0 - 05/12 LOW [facility] 16.0 /2012 [facility] HEMATOLOGY Hct 33.8 36.0 - 05/12 LOW [facility] 48.0 /2012 [facility] HEMATOLOGY MCH 28.8 27.0 - 05/12 Normal [facility] 31.0 /2012 [facility] BEDSIDE Gluc POC 89 70 - 99 05/11 Normal <sup>2</sup>I [facility] GLUCOSE nterpretive Medical TESTING Data: Center Upper Reportable Limit: 200 mg/dL. CHEMISTRY Opiate Scr Negative Negative 05/11 Normal [facility] (05/11/2013 02:00:00) Wy dical Center CHEMISTRY PCP Scr Negative Negative 05/11 Normal [facility] (05/11/2013 02:00:00) Wy dical Center CHEMISTRY Propoxyphn Negative Negative 05/11 Normal [facility] Scr (05/11/2013 02:00:00) Wy dical Center CHEMISTRY Cocaine Scr Negative Negative 05/11 Normal [facility] (05/11/2013 02:00:00) Wy dical Center CHEMISTRY Methadone Scr Positive Negative 05/11 ABN [place] *ABN* /2012 Medical (05/11/2013 02:00:00) Ce nter CHEMISTRY Cutoff Values See Note 12 05/11 Normal <sup>12</sup > [facility] (05/11/2013 02:00:00) Interpreti ve Medical Data: Cutoff Center (lowest detectable by EIA) values for Serum Drugscreen:<b r/> THC and PCP: 1 ng/mL
All others: 20 ng/mL

Cutoff (lowest detectable by GC/MS) value for confirmation:
THC and PCP: 1 ng/mL
Benzodiazepi rebecca: 5 ng/ml
All others: 10 ng/ml

Test performed by [facility]
[address]
[place] [address] CHEMISTRY Starla Scr Negative Negative 05/11 Normal [facility] (05/11/2013 02:00:00) Wy dicnc Center CHEMISTRY Benzodiaz Scr Negative Negative 05/11 Normal [place] as (05/11/2013 02:00:00) [facility] Cannab Scr Negative Negative 05/11 Normal [facility] (05/11/2013 02:00:00) Wy dicnc Center CHEMISTRY Amph Scr Negative Negative 05/11 Normal [facility] (05/11/2013 02:00:00) [facility] CHEMISTRY Ca Ion WB 1.09 1.05 - 05/11 Normal [place] 1. [facility] CHEMISTRY Ca Norm WB 1.07 1.05 - 05/11 Normal [facility] . [facility] CHEMISTRY Magnesium Lvl 2.0 1.8 - 2.4 05/11 Normal [place] [facility] CHEMISTRY Phosphorus 2.6 2.5 - 4.5 05/11 Normal [facility] CHEMISTRY eGFR 108 05/11 NA <sup>6</sup>R esult [...] - 10.5 05/11 [place] /2012 [facility] CHEMISTRY AGAP 17.7 10.0 - 05/11 Normal [place] 20.0 [facility] CHEMISTRY BUN 7 7 - 22 05/11 Normal Medical Center CHEMISTRY Glucose Lvl 59 70 - 99 05/11 LOW <sup>9</sup>I [place] nterpretive Medical Data: Adult Center reference range values reflect the clinical guidelines
of the [employer]. CHEMISTRY Creatinine 0.6 0.5 - 1.4 05/11 Normal [facility] Medical Center CHEMISTRY Sodium Lvl 141 135 - 145 05/11 Normal Medical Center CHEMISTRY Potassium Lvl 3.7 3.5 - 5.1 05/11 Normal Medical [facility] CHEMISTRY Chloride Lvl 106 95 - 109 05/11 Normal Medical Center CHEMISTRY CO2 21 24 - 32 05/11 LOW [facility] CHEMISTRY Methadone Qnt See Note 13 05/11 Normal <sup>13</sup > [facility] (05/11/2013 02:00:00) Result Me dical Comment: Center Methadone: 158 ng/mL
LOS P: 41 ng/mL HEMATOLOGY WBC 17.2 3.7 - 10.4 05/11 [place] [facility] HEMATOLOGY Platelet 203 133 - 450 05/11 Normal Medical Center HEMATOLOGY MPV 8.7 7.4 - 10.4 05/11 Normal Medical Center HEMATOLOGY MCV 88.4 81.0 - 05/11 Normal [facility] 99.0 Medical Center HEMATOLOGY MCH 29.4 27.0 - 05/11 Normal [place] 31.0 Medical Center HEMATOLOGY RDW 15.3 11.5 - 05/11 [facility] [place] 14.5 Medical Center HEMATOLOGY MCHC 33.2 32.0 - 05/11 Normal [place] 36.0 Medical Center HEMATOLOGY RBC 3.75 4.20 - 05/11 LOW [place] 5.40 /2012 Medical Center HEMATOLOGY Hgb 11.0 12.0 - 05/11 LOW [place] 16.0 /2012 Medical Center HEMATOLOGY Hct 33.1 36.0 - 05/11 [facility] [place] 48.0 Medical Center HEMATOLOGY Monocytes 4.4 2.0 - 12.0 05/11 Normal Medical Center HEMATOLOGY Segs 77.7 45.0 - 05/11 [facility] [place] 75.0 /2012 Medical Center HEMATOLOGY Monocytes # 0.8 0.0 - 0.8 05/11 [place] [facility] HEMATOLOGY Segs-Bands # 13.4 1.5 - 8.1 05/11 [place] Medical Center HEMATOLOGY Lymphocytes # 2.7 1.0 - 5.5 05/11 Normal [place] [facility] HEMATOLOGY Basophils 0.8 0.0 - 1.0 05/11 Normal [facility] HEMATOLOGY Eosinophils 1.5 0.0 - 4.0 05/11 [place] [facility] HEMATOLOGY Lymphocytes 15.6 20.0 - 05/11 LOW [place] 40.0 Medical Center HEMATOLOGY Basophils # 0.1 0.0 - 0.2 05/11 Normal [place] [facility] HEMATOLOGY Eosinophils # 0.3 0.0 - 0.5 05/11 Normal [place] [facility] BEDSIDE Gluc POC Notify 05/11 NA [facility] GLUCOSE Comment 1 RN/MD /2012 Medical TESTING Center BEDSIDE Gluc POC 79 70 - 99 05/11 Normal <sup>3</sup>I [facility] GLUCOSE nterpretive Medical TESTING Data: Center Upper Reportable Limit: 200 mg/dL. HEMATOLOGY Fibrinogen 814 230 - 510 05/[address] [facility] Lvl Medical Center HEMATOLOGY Plt Neut Test negative 05/10 [facility] as Platelet /2012 Medical Neutraliza Center tion procedure HEMATOLOGY Lup Interp Negative 05/10 [facility] for lupus Medical anticoagul Center ant (normal dRVVT, positive hexagonal phospholip id neutraliza tion, and negative Platelet Neutraliza tion procedure) . Thrombin Time is normal (16.7 sec) which rules out heparin as interferen ce substance. CPT: 03528 HEMATOLOGY Hex Phos N Positive Negative 05/10 Normal [facility] (05/10/2013 18:12:00) /2012 Wy dical Center HEMATOLOGY dRVV 1.06 <=1.20 05/10 Normal [facility] HEMATOLOGY AT III Func 70 77 - 140 05/10 LOW [facility] HEMATOLOGY Sed Rate >100 mm/hr 0 - 20 05/10 ABN [facility] *ABN* /2012 Medical (05/10/2013 18:12:00) Ce nter HEMATOLOGY Protein S 35 54 - 137 05/10 LOW [facility] Func [facility] HEMATOLOGY Protein C 68 72 - 147 05/10 LOW [facility] Func Medical Center IMMUNOLOGY Cardiolipin 1 05/10 NA <sup>16</sup> [facility] IgA Interpretive Medical Data: Center Reference Ranges for IgA:
0-11 APL Negative
12-20 APL Inconclusive< br/>21-80 APL Low-Med Positive
> 80 APL Strong Positive IMMUNOLOGY Cardiolipin 1 05/10 NA <sup>17</sup> [facility] IgG Interpretive Medical Data: Center Reference Ranges for IgG:
0-14 GPL Negative
15-20 GPL Inconclusive< br/>21-80 GPL Low-Med Positive
> 80 GPL Strong Positive IMMUNOLOGY Cardiolipin 5.2 05/10 NA <sup>18</sup> [facility] IgM Interpretive Medical Data: Center Reference [...] Ag Negative 1 Negative 05/10 Normal <sup>1</sup>I [facility] - SEROLOGY (05/10/2013 16:41:00) /2012 nterpre tive Medical Data: This Center kit tests for Legionella pneumophila Serogroup 1 Antigen. BEDSIDE Gluc POC 96 70 - 99 05/10 Normal <sup>4</sup>I [facility] GLUCOSE nterpretive Medical TESTING Data: Center Upper Reportable Limit: 200 mg/dL. BEDSIDE Gluc POC Notify 05/10 [facility] GLUCOSE Comment 1 RN/MD /2012 Medical TESTING Center URINALYSIS UA Renal Epi 8 <=0 05/10 [facility] URINALYSIS UA Mucus Few /LPF None Seen 05/10 [facility] *NA* Medical (05/10/2013 09:50:39) Ce nter URINALYSIS UA RBC <1 0 - 2 05/10 Normal [facility] URINALYSIS UA Sq Epi Few /LPF Few 05/10 NA *NA* Medical (05/10/2013 09:50:39) Ce nter URINALYSIS UA WBC <1 0 - 5 05/10 Normal [facility] URINALYSIS UA Leuk Est Negative Negative 05/10 [place] (05/10/2013 09:50:39) /2012 Wy dicnc Center URINALYSIS UA Nitrite Negative Negative 05/10 Normal [facility] (05/10/2013 09:50:39) Wy dicnc Center URINALYSIS UA Blood Negative Negative 05/10 Normal [facility] (05/10/2013 09:50:39) [facility]A Glucose Negative mg/dL Negative 05/10 NA [facility] *NA* [facility] (05/10/2013 09:50:39) Ce nter URINALYSIS UA Bili Negative Negative 05/10 NA [facility] *NA* Medical (05/10/2013 09:50:39) Ce nter URINALYSIS UA 0.1 - 1.0 05/10 NA [facility] Urobilinogen [facility] URINALYSIS UA Ketones TR 05/10 NA [facility] URINALYSIS UA Spec Grav 1.006 <=1.030 05/10 Normal [facility] URINALYSIS UA Turbidity Clear Clear 05/10 Normal [facility] (05/10/2013 09:50:39) Wy dical Center URINALYSIS UA Color Light Yellow Yellow 05/10 [place] *NA* Medical (05/10/2013 09:50:39) Ce nter URINALYSIS UA Protein Negative mg/dL Negative 05/10 Normal [facility] (05/10/2013 09:50:39) [facility]INALYS[facility] UA pH 7.5 5.0 - 8.0 05/10 Normal [facility] CHEMISTRY eGFR 87 05/10 NA <sup>7</sup>R esult [...] Lvl 140 135 - 145 05/10 Normal [facility] CHEMISTRY AGAP 14.6 10.0 - 05/10 Normal [place] 20.0 Medical Center CHEMISTRY Calcium Lvl 7.8 8.5 - 10.5 05/10 [place] [facility] CHEMISTRY Chloride Lvl 105 95 - 109 05/10 Normal Medical Center CHEMISTRY Potassium Lvl 3.6 3.5 - 5.1 05/10 Normal [place] [facility] CHEMISTRY CO2 24 24 - 32 05/10 Normal Medical Center CHEMISTRY Creatinine 0.8 0.5 - 1.4 05/10 Normal [place] Lvl Medical Center CHEMISTRY BUN 7 7 - 22 05/10 Normal Medical Center CHEMISTRY Glucose Lvl 51 70 - 99 05/10 LOW <sup>10</sup> T ex Interpretive Medical Data: Adult Center reference range values reflect the clinical guidelines
of the [employer]. CHEMISTRY Magnesium Lvl 1.6 1.8 - 2.4 05/10 LOW [place] [facility] CHEMISTRY Phosphorus 2.2 2.5 - 4.5 05/10 LOW Medical Center HEMATOLOGY MCH 29.1 27.0 - 05/10 Normal [place] 31.0 Medical Center HEMATOLOGY Hct 33.8 36.0 - 05/10 LOW [place] 48.0 [facility] HEMATOLOGY MCV 89.2 81.0 - 05/10 Normal [place] 99.0 Medical Center HEMATOLOGY Hgb 11.0 12.0 - 05/10 LOW [place] 16.0 [facility] HEMATOLOGY MPV 8.5 7.4 - 10.4 05/10 Normal [facility] HEMATOLOGY Platelet 202 133 - 450 05/10 Normal [facility] HEMATOLOGY RDW 15.1 11.5 - 05/10 HI [place] 14.5 Medical Center HEMATOLOGY MCHC 32.6 32.0 - 05/10 Normal [place] 36.0 Medical Center HEMATOLOGY RBC 3.79 4.20 - 05/10 LOW [place] 5.40 /2012 Medical Center HEMATOLOGY WBC 22.1 3.7 - 10.4 05/10 HI [place] /2012 Medical Center HEMATOLOGY Basophils # 0.1 0.0 - 0.2 05/10 [place] /2012 [facility] HEMATOLOGY Monocytes # 0.6 0.0 - 0.8 05/10 [place] [facility] HEMATOLOGY Eosinophils # 0.2 0.0 - 0.5 05/10 [place] /2012 [facility] HEMATOLOGY Segs 83.0 45.0 - 05/10 HI [place] 75.0 /2012 Medical Center HEMATOLOGY Lymphocytes # 2.9 1.0 - 5.5 05/10 [place] [facility] HEMATOLOGY Segs-Bands # 18.3 1.5 - 8.1 05/10 [place] /2012 [facility] HEMATOLOGY Basophils 0.4 0.0 - 1.0 05/10 Normal [facility] HEMATOLOGY Eosinophils 1.0 0.0 - 4.0 05/10 [place] [facility] HEMATOLOGY Lymphocytes 12.9 20.0 - 05/10 LOW [place] 40.0 /2012 Medical Center HEMATOLOGY Monocytes 2.7 2.0 - 12.0 05/10 Normal [facility] HEMATOLOGY Sed Rate 55 0 - 20 05/09 [place] [facility] [place] HEMATOLOGY Fibrinogen 634 230 - 510 05/09 [place] Lvl /2012 [facility] IMMUNOLOGY C3 Complement 124 88 - 201 05/09 Normal [place] /2012 [facility] IMMUNOLOGY DNA Ab (DS) Negative Negative 05/09 [place] (05/09/2013 14:56:00) /2012 Wy dical Center IMMUNOLOGY SS-B ([place]) Ab Negative Negative 05/09 Normal [place] (05/09/2013 14:56:00) Wy dical Center IMMUNOLOGY SS-A ([place]) Ab Negative Negative 05/09 Normal [place] (05/09/2013 14:56:00) Wy dical Center IMMUNOLOGY CRP, High >190.0 mg/L 15 05/09 Normal <sup>15</sup > [place] Sensitivity (05/09/2013 14:56:00) /2012 Interp retive Medical Data: Low Center Risk: <1.0 mg/L
Aver age Risk: 1.0 - 3.0 mg/L
High Risk: >3.0 mg/L
Infl ammation: >10.0 mg/L IMMUNOLOGY KYLE Negative Negative 05/09 Normal [facility] (05/09/2013 14:56:00) Wy dicnc Center IMMUNOLOGY C4 Complement 34 16 - 47 05/09 [facility] [place] CHEMISTRY Phosphorus 2.3 2.5 - 4.5 05/09 LOW [facility] CHEMISTRY Magnesium Lvl 1.4 1.8 - 2.4 05/09 LOW [facility] as /2012 [facility] CHEMISTRY Lactic Acid 1.8 0.5 - 2.2 05/09 Normal [facility] /2012 [facility] Microbiolog Culture: 05/09 [facility] Blood [facility] Microbiolog Culture: 05/09 [facility] Blood [facility] CHEMISTRY LDL 71 <=99 05/09 Normal [facility] CHEMISTRY HDL 36 >=61 05/09 LOW [facility] CHEMISTRY Trig 126 <=149 05/09 Normal [facility] CHEMISTRY Chol 132 <=199 05/09 Normal [facility] CHEMISTRY CHD Risk 3.67 3.90 - 05/09 LOW [facility] 5.80 [facility] CHEMISTRY Hgb A1C 4.9 <=5.6 05/09 Normal [facility] BEDSIDE Gluc POC Notify 05/09 [facility] GLUCOSE Comment 1 RN/ /2012 [facility] TESTING Center CHEMISTRY U Phencyc Scr Negative Negative 05/09 NA [facility] as *NA* /2012 Medical (05/08/2013 19:11:00) Ce nter CHEMISTRY UDS Note See Note 11 05/09 Normal <sup>11</sup> [facility] (05/08/2013 19:11:00) Interpreti ve Medical Data: [...] CHEMISTRY U Benzodia Positive Negative 05/09 ABN [facility] Scr *ABN* Medical (05/08/2013 19:11:00) Ce nter CHEMISTRY U Cannab Scr Negative Negative 05/09 [facility] [place] *NA Medical (05/08/2013 19:11:00) Ce nter CHEMISTRY U Cocaine Scr Negative Negative 05/09 [facility] [place] *NA* Medical (05/08/2013 19:11:00) Ce nter CHEMISTRY U Opiate Scr Negative Negative 05/09 [facility] [place] *NA* Medical (05/08/2013 19:11:00) Ce nter CHEMISTRY U Starla Scr Negative Negative 05/09 [facility] *NA* Medical (05/08/2013 19:11:00) Ce nter CHEMISTRY U Amph Scr Negative Negative 05/09 [facility] [place] *NA* Medical (05/08/2013 19:11:00) Ce nter CHEMISTRY AST 54 0 - 37 05/09 [facility] CHEMISTRY Total Protein 5.8 6.4 - 8.4 05/09 LOW [facility] Medical Center CHEMISTRY Bili Total 0.2 0.2 - 1.3 05/09 Normal Medical Center CHEMISTRY Albumin Lvl 2.8 3.5 - 5.0 05/09 LOW Medical [facility] CHEMISTRY Alk Phos 95 39 - 136 05/09 Normal Medical Center CHEMISTRY ALT 29 0 - 65 05/09 Normal [facility] CHEMISTRY A/G Ratio 0.9 0.7 - 1.6 05/09 Normal [facility] CHEMISTRY B/C Ratio 15 6 - 25 05/09 Normal [facility] CHEMISTRY Globulin 3.0 2.0 - 4.0 05/09 Normal [facility] URINALYSIS UA 0.1 - 1.0 05/09 NA [facility] Urobilinogen /2012 [facility] URINALYSIS UA Turbidity Slight Clear 05/09 ABN ABN* Medical (05/08/2013 19:11:00) Ce nter URINALYSIS UA Spec Grav 1.013 <=1.030 05/09 Normal [facility] URINALYSIS UA Blood Small Negative 05/09 [facility] Medical (05/08/2013 19:11:00) Ce nter URINALYSIS UA Leuk Est Negative Negative 05/09 Normal [facility] (05/08/2013 19:11:00) Wy dical Center URINALYSIS UA Nitrite Negative Negative 05/09 Normal [facility] (05/08/2013 19:11:00) Wy dicnc Center URINALYSIS UA pH 5.0 5.0 - 8.0 05/09 Normal [facility] URINALYSIS UA Protein 30 mg/dL Negative 05/09 [facility] Medical (05/08/2013 19:11:00) Ce nter URINALYSIS UA Glucose Negative mg/dL [facility]2013 19:11:00[facility] Ce nter URINALYSIS UA Color Yellow Yellow 05/09 NA Medical (05/08/2013 19:11:00) Ce nter URINALYSIS UA Sq Epi Few /LPF Few 05/09 [facility] Medical (05/08/2013 19:11:00) Ce nter URINALYSIS UA RBC 1 0 - 2 05/09 Normal [facility] URINALYSIS UA Ketones Negative mg/dL Negative 05/09 [facility] (05/08/2013 19:11:00) Ce nter URINALYSIS UA Bili Negative Negative 05/09 NA [facility] *NA Medical (05/08/2013 19:11:00) Ce nter URINALYSIS UA Mucus Few /LPF None [facility]en 05[facility]09 [facility] (05/08/2013 19:11:00) Ce nter URINALYSIS UA Amorph Occasional /HPF None Seen 05/09 NA [facility] Jaimee *NA Medical (05/08/2013 19:11:00) Ce nter BEDSIDE Comment1 Notify 07/21 NA [facility] GLUCOSE RN/MD /2011 [facility] TESTING Center BEDSIDE Gluc POC 87 70 - 99 07/21 Normal <sup>1</sup>I [facility] GLUCOSE Lifscn nterpretive Medical TESTING Data: Center Upper Reportable Limit: 200 mg/dL. CHEMISTRY LDL 122 0 - 129 07/21 Normal [facility] CHEMISTRY HDL 24 >=35 07/21 LOW 2011 [facility] CHEMISTRY Trig 238 0 - 200 07/21 [facility] CHEMISTRY Chol 194 120 - 200 07/21 Normal 2011 [facility] CHEMISTRY CHD Risk 8.08 3.90 - [address] [facility] 5.80 [facility] CHEMISTRY Phosphorus 3.2 2.5 - 4.5 07/21 Normal [facility] CHEMISTRY Magnesium Lvl 1.9 1.8 - 2.4 07/21 Normal [facility] CHEMISTRY AGAP 14.1 10.0 - 07/21 Normal [facility] 20.0 [facility] CHEMISTRY BUN 9 7 - 22 07/21 Normal [facility] CHEMISTRY Glucose Lvl 77 70 - 99 07/21 Normal <sup>7</sup>I T ex nterpretive Medical Data: Adult Center reference range values reflect the clinical guidelines
of the [place] [employer]. CHEMISTRY eGFR 104 07/21 NA [...] Lvl 101 95 - 109 07/21 Normal [facility] CHEMISTRY Sodium Lvl 138 135 - 145 07/21 [facility] CHEMISTRY Potassium Lvl 4.1 3.5 - 5.1 07/21 [facility] Tommy [facility] CHEMISTRY Creatinine 0.7 0.5 - 1.4 07/21 Normal [facility] CHEMISTRY CO2 27 24 - 32 07/21 [facility] CHEMISTRY Calcium Lvl 8.0 8.5 - 10.5 07/21 LOW [facility] s [facility] CHEMISTRY Hgb A1C 5.8 07/21 NA <sup>10</sup> [...] MPV 6.8 7.4 - 10.4 07/21 LOW [facility] HEMATOLOGY Platelet 539 133 - 450 07/21 HI [facility] HEMATOLOGY MCV 88.7 81.0 - 07/21 Normal [place] 99.0 [facility] HEMATOLOGY MCH 29.4 27.0 - 07/21 [facility] [place] 31.0 [facility] HEMATOLOGY MCHC 33.1 32.0 - 07/21 [facility] [place] 36.0 /2011 [facility] Center HEMATOLOGY [...] 0.5 0.0 - 1.0 12/ Normal Medical [place] HEMATOLOGY Segs-Bands # 5.9 1.5 - 8.1 12 Normal [place] as [facility] HEMATOLOGY Monocytes 6.0 2.0 - 12.0 12 Normal Medical Center HEMATOLOGY Lymphocytes 41.5 20.0 - 12 HI [place] 40.0 Medical Center HEMATOLOGY Eosinophils 1.9 0.0 - 4.0 12 [place] [facility] HEMATOLOGY Segs 50.1 45.0 - 12 Normal [place] 75.0 /2011 Medical Center HEMATOLOGY Monocytes # 0.7 0.0 - 0.8 12/ [place] [facility] HEMATOLOGY Lymphocytes # 4.8 1.0 - 5.5 12 [place] [facility] HEMATOLOGY Eosinophils # 0.2 0.0 - 0.5 07/21 [place] [facility] HEMATOLOGY Basophils # 0.1 0.0 - 0.2 07/21 [place] [facility] Microbiolog Culture: 07/21 [facility] y Urine [facility] BEDSIDE Gluc POC 112 70 - 99 07/21 HI <sup>2</sup>I [facility] GLUCOSE Lifscn nterpretive Medical TESTING Data: Center Upper Reportable Limit: 200 mg/dL. BEDSIDE Comment1 Notify 07/21 [facility] GLUCOSE RN/MD /2011 Medical TESTING Center URINALYSIS UA Ketones TR 07/21 [facility] URINALYSIS UA 0.1 - 1.0 07/21 [facility] Urobilinogen /2011 [facility] URINALYSIS UA Color Yellow Yellow 12/04 NA [facility] Medical (07/20/2012 19:10:00) Ce nter URINALYSIS UA Protein 20 mg/dL Negative 07/21 ABN Medical (07/20/2012 19:10:00) Ce nter URINALYSIS UA pH 6.5 5.0 - 8.0 07/21 Normal [facility] URINALYSIS UA Glucose Negative mg/dL Negative 07/21 NA [facility] Medical (07/20/2012 19:10:00) Ce nter URINALYSIS UA Spec Grav 1.020 <=1.030 07/21 Normal [facility] URINALYSIS UA Turbidity Slight Clear 07/21 [facility]N Medical (07/20/2012 19:10:00) Ce nter URINALYSIS UA Nitrite Negative Negative 07/21 Normal [facility] (07/20/2012 19:10:00) [facility] URINALYSIS UA Leuk Est Trace Negative 07/21 [facility]N Medical (07/20/2012 19:10:00) Ce nter URINALYSIS UA Sq Epi Many /LPF Few 07/21 [facility]N Medical (07/20/2012 19:10:00) Ce nter URINALYSIS UA Blood Small Negative 07/21 [facility] Medical (07/20/2012 19:10:00) Ce nter URINALYSIS UA Bili Negative Negative 07/21 NA Medical (07/20/2012 19:10:00) Ce nter URINALYSIS UA Amorph Occasional /HPF None Seen 07/21 NA [facility] Jaimee * Medical (07/20/2012 19:10:00) Ce nter URINALYSIS UA Mucus Few /LPF None Seen 07/21 [facility] Medical (07/20/2012 19:10:00) Ce nter URINALYSIS UA Bacteria Few /HPF None Seen 07/21 NA Tommy as * Medical (07/20/2012 19:10:00) Ce nter URINALYSIS UA RBC 1 0 - 2 07/21 Normal [facility] URINALYSIS UA WBC 6 0 - 5 07/21 HI [facility] URINALYSIS UA Hyal Cast 1 0 - 2 07/21 Normal [facility] BEDSIDE Comment1 Notify 07/20 NA [facility] GLUCOSE RN/MD Medical TESTING Center BEDSIDE Gluc POC 86 70 - 99 07/20 Normal <sup>3</sup>I [facility] GLUCOSE Lifscn nterpretive Medical TESTING Data: Center Upper Reportable Limit: 200 mg/dL. CHEMISTRY AGAP 14.7 10.0 - 07/20 Normal [facility] 20.0 [facility] CHEMISTRY eGFR 88 07/20 NA <sup>5</sup>R esult [...] values reflect the clinical guidelines
of the [place] [employer]. CHEMISTRY BUN 13 7 - 22 07/20 Normal [facility] CHEMISTRY Creatinine 0.8 0.5 - 1.4 07/20 Normal [facility] Lvl [facility] CHEMISTRY Sodium Lvl 137 135 - 145 07/20 Normal [facility] CHEMISTRY Potassium Lvl 3.7 3.5 - 5.1 07/20 Normal [place] as [facility] CHEMISTRY Chloride Lvl 97 95 - 109 07/20 Normal [facility] CHEMISTRY CO2 29 24 - 32 07/20 Normal [facility] CHEMISTRY Calcium Lvl 8.3 8.5 - 10.5 12 [place] [facility] HEMATOLOGY Monocytes # 0.7 0.0 - 0.8 12 [place] [facility] HEMATOLOGY Lymphocytes # 4.3 1.0 - 5.5 12 [place] [facility] [place] HEMATOLOGY Segs-Bands # 6.9 1.5 - 8.1 [...] Monocytes 5.6 2.0 - 12.0 07/20 Normal [facility] HEMATOLOGY Lymphocytes 35.7 20.0 - [...] MPV 6.8 7.4 - 10.4 12 LOW [facility] HEMATOLOGY Platelet 571 133 - 450 12 [facility] HEMATOLOGY RDW 15.6 11.5 - 12 HI [place] 14.5 Medical [place] HEMATOLOGY MCHC 33.3 32.0 - 12 Normal [place] 36.0 Medical [place] HEMATOLOGY MCH 29.4 27.0 - 12 Normal [place] 31.0 [facility] BLOOD BANK Antibody Scrn Negative 07/19 Normal [facility] Tommy as RESULTS (07/19/2012 07:30:00) [facility] BLOOD BANK ABO/Rh O POS 07/19 Unknown [facility] RESULTS [facility] CHEMISTRY Total CK 62 12 - 191 07/19 Normal [facility] CHEMISTRY eGFR 67 07/19 NA <sup>6</sup>R esult [...] CO2 30 24 - 32 07/19 Normal [facility] CHEMISTRY Calcium Lvl 8.8 8.5 - 10.5 07/19 Normal [facility] s [facility] CHEMISTRY BUN 12 7 - 22 07/19 Normal [facility] CHEMISTRY Creatinine 1.0 0.5 - 1.4 07/19 Normal [facility] CHEMISTRY Glucose Lvl 106 70 - 99 07/19 HI <sup>9</sup>I T ex nterpretive Medical Data: Adult Center reference range values reflect the clinical guidelines
of the [place] [employer]. CHEMISTRY Potassium Lvl 4.1 3.5 - 5.1 07/19 Normal [facility] CHEMISTRY Chloride Lvl 99 95 - 109 07/19 Normal [facility] CHEMISTRY Sodium Lvl 138 135 - 145 07/19 Normal [facility] CHEMISTRY AGAP 13.1 10.0 - 07/19 Normal [facility] 20.0 [facility] CHEMISTRY Troponin-I <0.02 0.00 - 07/19 Normal [facility] 0.40 /2011 [facility] HEMATOLOGY Anisocyte 1+ None Seen 07/19 ABN [facility] *ABN* Medical (07/19/2012 07:30:00) Ce nter HEMATOLOGY Atypical 0.0 <=0.0 07/19 Normal [facility] Lymphs [facility] HEMATOLOGY Large Plt Slight None Seen 07/19 ABN [facility] *ABN* Medical (07/19/2012 07:30:00) Ce nter HEMATOLOGY Polychrom Slight None Seen 07/19 Normal [facility] (07/19/2012 07:30:00) /[facility] HEMATOLOGY Bands 0.0 0.0 - 11.0 12 Normal [facility] HEMATOLOGY Monocytes 4.0 2.0 - 12.0 07/19 Normal [facility] HEMATOLOGY Lymphocytes 30.0 20.0 - 07/19 Normal [place] 40.0 [facility] HEMATOLOGY Eosinophils 1.0 0.0 - 4.0 07/19 [place] [facility] HEMATOLOGY Lymphocytes # 5.4 1.0 - 5.5 07/19 [place] [facility] HEMATOLOGY Segs-Bands # 11.8 1.5 - 8.1 07/19 [place] as [facility] HEMATOLOGY Eosinophils # 0.2 0.0 - 0.5 07/19 [place] [facility] HEMATOLOGY Monocytes # 0.7 0.0 - 0.8 07/19 [place] [facility] HEMATOLOGY Segs 65.0 45.0 - 07/19 Normal [facility] 75.0 [facility] HEMATOLOGY INR 0.97 0.85 - 07/19 Normal <sup>[place] 1.17 Interpretive Medical Data: Center RECOMMENDED RANGES FOR PROTIME INR:
2.0-3.0 for most medical and surgical thromboemboli c states.
2.5-3.5 for artificial heart valves and recurrent embolism.<br/ >
INR SHOULD BE USED ONLY FOR PATIENTS ON STABLE ANTICOAGULANT THERAPY. HEMATOLOGY PT 13.1 12.0 - 12 Normal [place] 14.7 [facility] HEMATOLOGY Estimated % 4.1 0.0 - 7.5 07/19 [place] [facility] HEMATOLOGY Rapid TEG Citrated 07/19 NA [facility] Sample Type [facility] Blood [place] HEMATOLOGY ACT (TEG) 113 86 - 118 07/19 Normal [facility] HEMATOLOGY [place] 0.6 07/19 NA [facility] HEMATOLOGY Angle 82 64 - 80 07/19 [facility] HEMATOLOGY Max Amp 81 52 - 71 12 [facility] HEMATOLOGY K-time 0.8 0.6 - 2.3 07/19 Normal [facility] HEMATOLOGY G-value 20.9 5.0 - 11.6 12 [facility] HEMATOLOGY R-time 0.7 0.4 - 0.7 07/19 Normal [facility] HEMATOLOGY PTT 32.1 22.9 - 12 Normal [place]sup[place] 35.8 /2011 Interpretive Medical Data: Heparin Center Therapeutic Range: 57 - 92 [facility] HEMATOLOGY Hgb 15.0 12.0 - 12 Normal [facility] 16.0 /2011 [facility] HEMATOLOGY RBC 5.06 4.20 - 12 Normal [facility] 5.40 /2011 [facility] HEMATOLOGY RDW 14.8 11.5 - [address] [facility] 14.5 /2011 [facility] HEMATOLOGY MCHC 33.3 32.0 - 12/ Normal [facility] 36.0 /2011 [facility] HEMATOLOGY WBC 18.1 3.7 - 10.4 12 [facility] HEMATOLOGY Hct 44.9 36.0 - 12/ Normal [facility] 48.0 /2011 [facility] HEMATOLOGY MPV 7.1 7.4 - 10.4 12 LOW [facility] HEMATOLOGY MCH 29.5 27.0 - 12/ Normal [facility] 31.0 /2011 [facility] HEMATOLOGY MCV 88.8 81.0 - 12/ Normal [facility] 99.0 /2011 [facility] HEMATOLOGY Platelet 634 133 - 450 12 [facility] Pathology Reports No Data Provided for This Section Diagnostic Reports Report Value Date Source Brain wo contrast MRI EXAM: MRI BRAIN WITHOUT CONTRAST 9 [facility] Medical DATE: 03/10/2019 14:02 CDT Center [...] EXAM: CTA CHEST WITH CONTRAST 03/09/2019 [facility] [place] [facility] CTA DATE: 03/09/2019 18:09 CDT [...] MRI EXAM: MRI BRAIN WITHOUT CONTRAST 9 [facility] DATE: 03/09/2019 9:46 PM CDT [facility] INDICATION: - new slurred speech, L facial [...] LUMBAR PUNCTURE UNDER FLUOROSCOP IC GUIDANCE 03/17/2015 [facility] DX [place] DATE: Mar 17, 2015 03:30:39 PM INDICATION: [...] OCTOBER 30, 2014 AT 1:40 A.M. 10/16 [facility] HISTORY: 49-year-old female with tube placement/ [...] OCTOBER 29, 2014 AT 2:00 A.M. 10/16 [facility] HISTORY: 49-year-old female with abnormal chest sounds. FINDINGS: Comparison is made to October 28. The cardiomediastinal silhou ette is stable. Life support lines and tubes remain in place. Subsegmental atelectasis is seen in the left lower lobe. The costophrenic sulci are sharp, without effusions. IMPRESSION: Left lower lobe subsegmental atelect asis. Brain wo contrast MRI EXAM: MRI BRAIN WITHOUT CONTRAST 5 [facility] DATE: 10/28/2014 at 2153 hours INDICATION: [...] October 28, 2014 AT 1:19 a.m. 10/16 [facility] HISTORY: 49-year-old female with tube placement/ [...] AP DX INDICATION: Dobhoff tube placement. 10/27/2014 [facility] EXAM: ABDOMEN XR, 1 view. TECHNIQUE: [...] October 27, 2014 a 1:15 a.m. 10/27 [facility] HISTORY: 49-year-old female with abnormal chest [...] EXAM: CT CHEST WITH IV CONTRAST 10/26/2014 [facility] DATE: Oct 26, 2014 03:26:53 PM [...] CT EXAMINATION: CT head without contrast. 10/16 [facility] DATE: 10/26/2014. INDICATION: Altered level of [...] CTA ABDOMEN/PELVIS WITH INTRAVENO US CONTRAST 10/26/2014 [facility] DATE: October 26, 2014 INDICATION: Abdominal [...] 1view DX PORTABLE CHEST 2014-10-26 11:56:00 10/26/2014 [facility] COMPARISON: Same day at 10:00 a.m. [...] DX Portable ap semierect chest 10/26/2014 10/26/2014 [facility] HISTORY: Central line placement. Comparison is [...] EXAM: MRI OF THE BRAIN WITHOUT CONTRAST [facility] DATE:Nov 13, 2013 08:22:00 AM CLINICAL [...] Chest 1view EXAM: CHEST 1 VIEW 11/13/2013 [facility] DATE: Nov 13, 2013 04:17:00 AM INDICATION: CVA/TIA COMPARISON: Prior study dated 05/08/2013 TECHNIQUE: Single portable radiograph of the [facility] st FINDINGS: The cardiac silho uette is unremarkable. The lungs are clear bilaterally. The costophrenic sulci are clear and well demarcated. The osseous structures and soft tissues are unremarkable. IMPRESSION: No radiographic evidence of an acut e cardiopulmonary process. Extremity lower VENOUS DOPPLER ULTRASOUND BILATERAL LOWER EXTREM ITY: 05/10/2013 [facility] venous doppler bilat Center US CLINICAL INDICATION: Pain and swelling. TECHNIQUE: The veins of the bilateral lower extremities were evaluated with grayscale, color-flow and spectral Doppler ultrasound. FINDINGS: The common femoral , superficial femoral, and popliteal veins demonstrate normal compressibility and color Doppler signal. IMPRESSION: Negative for DVT bilaterally. Pelvis w/wo contrast EXAM: MRV PELVIS WITHOUT AND WITH CONTRAST 05/10/2013 [facility] DATE: 05/10/2013. INDICATION: 47-year-old fema le with [...] CT CT SCAN OF THE BRAIN 05/10/2013 [facility] DATE: 05/10/2013 at 1:56 a.m. [...] CTA EXAM: HEAD AND NECK CTA 05/09/2013 [facility] DATE: May 09, 2013 12:30:00 PM [...] EXAM: MRI brain without contrast. 05/09/20 13 [facility] INDICATION: Facial numbness. COMPARISON: MRI July [...] 2 VIEWS dated 2013-05-09 00:05:00 05/08/20 13 [facility] COMPARISON: Same day at 9:08 a.m. [...] Comments Source Systolic (mm Hg) 133 03/13/2019 [facility] Diastolic (mm Hg) 83 03/13/2019 [facility] Temperature Oral (F) 97.0 F 03/13/2019 [facility] Respitory Rate 14 03/13/2019 [facility] Heart Rate 98 03/12/2019 [facility] Respitory Rate 18 03/12/2019 [facility] Systolic (mm Hg) 134 03/12/2019 [facility] Diastolic (mm Hg) 83 03/12/2019 [facility] Heart Rate 95 03/12/2019 [facility] Systolic (mm Hg) 147 03/12/2019 [facility] [place] Diastolic (mm Hg) 92 03/12/2019 [facility] Temperature Oral (F) 97.3 F 03/12/2019 [facility] Respitory Rate 18 03/12/2019 [facility] Heart Rate 98 03/12/2019 [facility] Temperature Oral (F) 97.3 F 03/12/2019 [facility] Weight 99.318 03/10/2019 [facility] Weight 97.727 03/10/2019 [facility] Height 160.02 cm 03/10/2019 [facility] BMI Calculated 38.17 03/10/2019 [facility] Center Weight 97.5 03/09/2019 [facility] BMI Calculated 32.68 03/09/2019 [facility] Center Height 172.72 cm 03/09/2019 [facility] Temperature Oral (F) 97.5 F 03/22/2015 [facility] Heart Rate 70 03/22/2015 [facility] Respitory Rate 17 03/22/2015 [facility] Systolic (mm Hg) 102 03/22/2015 [facility] dical Center Diastolic (mm Hg) 64 03/22/2015 [facility] Heart Rate 69 03/22/2015 [facility] Respitory Rate 17 03/22/2015 [facility] Center Temperature Oral (F) 97.4 F 03/22/2015 [facility] Center Systolic (mm Hg) 134 03/22/2015 [facility] dical Center Diastolic (mm Hg) 79 03/22/2015 [facility] Center Systolic (mm Hg) 133 03/22/2015 [facility] dical Center Diastolic (mm Hg) 84 03/22/2015 [facility] Heart Rate 69 03/22/2015 [facility] Temperature Oral (F) 97.8 F 03/22/2015 [facility] Respitory Rate 17 03/22/2015 [facility] Center Weight 110.3 03/17/2015 [facility] Height 160.02 cm 03/17/2015 [facility] BMI Calculated 43.08 03/17/2015 [facility] Center Temperature Oral (F) 98.1 F 11/01/2014 [facility] Center Heart Rate 86 11/01/2014 [facility] Respitory Rate 18 11/01/2014 [facility] Center Systolic (mm Hg) 126 11/01/2014 [facility] dical Center Diastolic (mm Hg) 77 11/01/2014 [facility] Temperature Oral (F) 98.6 F 10/31/2014 [facility] Center Heart Rate 83 10/31/2014 [facility] Respitory Rate 18 10/31/2014 [facility] Systolic (mm Hg) 121 10/31/2014 [facility] dical Center Diastolic (mm Hg) 85 10/31/2014 [facility] edical Center Temperature Oral (F) 98.2 F 10/31/2014 [facility] Center Respitory Rate 18 10/31/2014 [facility] Systolic (mm Hg) 140 10/31/2014 [facility] dical Center Diastolic (mm Hg) 86 10/31/2014 [facility] edical Center Heart Rate 68 10/31/2014 [facility] Weight 110.3 10/26/2014 [facility] BMI Calculated 43.08 10/26/2014 [facility] Height 160.02 cm 10/26/2014 [facility] Diastolic (mm Hg) 77 11/14/2013 [facility] Center Heart Rate 96 11/14/2013 [facility] Systolic (mm Hg) 129 11/14/2013 [facility] dical Center Respitory Rate 20 11/14/2013 [facility] Center Temperature Oral (F) 98.3 F 11/14/2013 [facility] Center Heart Rate 90 11/14/2013 [facility] Respitory Rate 20 11/14/2013 [facility] Temperature Oral (F) 98.0 F 11/14/2013 [facility] Center Systolic (mm Hg) 132 11/14/2013 [facility] dical Center Diastolic (mm Hg) 84 11/14/2013 [facility] edical Center Diastolic (mm Hg) 75 11/14/2013 [facility] edical Center Systolic (mm Hg) 155 11/14/2013 [facility] dical Center Temperature Oral (F) 97.4 F 11/14/2013 [facility] Center Respitory Rate 17 11/14/2013 [facility] Height 162.56 cm 11/13/2013 [facility] l Center Weight 96.364 11/13/2013 [facility] BMI Calculated 36.47 11/13/2013 [facility] BMI Calculated 37.63 11/13/2013 [facility] Height 160.02 cm 11/13/2013 [facility] Weight 96.364 11/13/2013 [facility] Heart Rate 99 11/13/2013 [facility] Heart Rate 62 05/12/2013 [facility] Medica l Center Diastolic (mm Hg) 90 05/12/2013 [facility] edical Center Systolic (mm Hg) 158 05/12/2013 [facility] dical Center Respitory Rate 16 05/12/2013 [facility] Diastolic (mm Hg) 90 05/12/2013 [facility] edical Center Systolic (mm Hg) 168 05/12/2013 [facility] dical Center Respitory Rate 19 05/12/2013 [facility] Heart Rate 77 05/12/2013 [facility] Temperature Oral (F) 99.1 F 05/12/2013 [facility] Center Diastolic (mm Hg) 97 05/12/2013 [facility] edical Center Systolic (mm Hg) 156 05/12/2013 [facility] dical Center Respitory Rate 20 05/12/2013 [facility] Center Heart Rate 69 05/12/2013 [facility] Temperature Oral (F) 99.8 F 05/12/2013 [facility] Temperature Oral (F) 99.8 F 05/12/2013 [facility] Height 160.02 cm 05/09/2013 [facility] Weight 98.182 05/09/2013 [facility] Respitory Rate 18 07/22/2012 [facility] Systolic (mm Hg) 115 07/22/2012 [facility] dical Center Diastolic (mm Hg) 62 07/22/2012 [facility] edical Center Temperature Oral (F) 98.6 F 07/22/2012 [facility] Heart Rate 65 07/22/2012 [facility] Diastolic (mm Hg) 61 07/21/2012 [facility] edical Center Systolic (mm Hg) 96 07/21/2012 [facility] dical Center Temperature Oral (F) 97.2 F 07/21/2012 [facility] Heart Rate 64 07/21/2012 [facility] Respitory Rate 16 07/21/2012 [facility] Temperature Oral (F) 98.5 F 07/21/2012 [facility] Heart Rate 64 07/21/2012 [facility] Respitory Rate 18 07/21/2012 [facility] Diastolic (mm Hg) 85 07/21/2012 [facility] edical [place] Systolic (mm Hg) 134 07/21/2012 [facility] dical [place] Weight 113.636 07/19/2012 [facility] Height 160.02 cm 07/19/2012 [facility] Encounters Location Location Encounter Encounter Reason Attending ADM DC Stat us Source Details Type Number For Visit Provider Date Date [facility] Inpatient [id number] CEREBRAL LISA 07/19 07/21 Acti ve [facility] VASCULAR ANAND /2011 [facility] ACCIDENT Center [facility] Inpatient [id number] AMS JILLIAN 05/08 05/12 Active [facility] CHERNYSHEV /2012 [facility] Inpatient [id number] _MAPID:[id number] Amrou 11/13 11/14 [facility] [id number] Yessenia /[address] Inpatient [id number] Amrou 10/26 11/01 [facility] /2014 [facility] Inpatient [id number] Atif Krell 03/16 03/23 [facility] /2014 [facility] Inpatient [id number] Cerena 03/09 03/13 [facility] Kaur /2018 [facility] Procedures Procedure Code Date Perfomer Comments Source Spinal puncture, [address] 03/17/2015 [facility] therapeutic, for Medical drainage of [place] cerebrospinal fluid (by needle or catheter) Appendectomy [id number] [facility] Cholecystectomy [id number] [facility] Ankle [id number] WITH SCREWS [facility] fusion<sup>1</sup> [facility] Appendectomy [id number] [facility] Cholecystectomy [id number] [facility] Fixation of fracture [id number] [place] using plate [facility] Hysterectomy [id number] [facility] Assessment and Plan Assessment and Plan Date Source Extracted from:Title: Stroke Progress Note 03/13/2019 [facility] Author: Bibiana Cortes MD Date: 03/12/19 Patient: Isabell Delilah Overnight: No issues overnight. Patient feels her speech has returned to her baseline. History of Present Illness: 53 yr old female with PMH of CHF, recent CVA, APLS, on ASA and Statin transferred form [place] after presenting 36 hrs post worsening neurological deficits. Pt with worsening dysarthria, left sided hem isensory loss. CTH - no evidence of evol ving ischemia - however old encephalomalacia in R-MCA territory, CTA no LVO. She was given ASA 300mg IA prior to transfer. On evaluation her BP [...] 2014. Per patient, she followed with outpatient [facility] [employer] [facility] who switched her from Xarelto to aspirin. [...] off. Please call Stroke Consult Team with [employer]. Rosey Doyle MD Vascular Neurology Fellow PGY-6 Pager# [phone] Extracted from:Title: Cardiology Consult Note Author: Barb [...] K>4 and mag>2), telemetry. Barb Garza MD [facility] Department of Internal Medicine Division of Cardiovascular Medicine Extracted from:Title: Team A History and Physical Author: Sandrita Starks MD Date: 03/10/19 53 yo F, PMHx of CVA (R MCA w/ residual dysarthria, L sided weakness), HTN, and COPD, presents to ED as transfer from OSH ([place], [place]) with worsening slurred speech and L facial [...] given 300mg ASA prior to transfer to [facility]. In ED here, pt given 1L bolus [...] QD Diet NPO, failed dysphagia screen per REVIEW APPRAISER Heparin Pending clinical improvement Teaching Physician Attestation: I saw an d evaluated the patient with the resident team. I reviewed the clinical data and confirmed the findings. We formulated the assessment and plans. I agree withthis note. Dario Downs MD Extracted from:Title: General Neurology Discharge Summary [facility] Author: Yue Anderson MD Date: 03/22/15 [...] who p resented as a transfer from [facility] for HLOC for encephalitis with background [...] -> 94.9 (03/16/2015). [facility] given CSF analysis, interim changes in MRI, and history of APLA and CVA. Hypercoaguable lab abnormalities: ESR 55 CRP 100m protein C activity low at 68% ATIII 79% IgM anticoagulant elevated 5.2 lupus anticoagulant detected. Repeat labs done by Dr Gardiner in 07/2013 showed normal anti-carrdiolipin panel, CRP wnl and ESR 40 Hospital Course: Admitted to ICU, transferred down to [facility] [place] or soon after transfer to [facility], after patient remained stable with stable exam. LP with IR, opening pressure 14. CSF showed signs of continued infection versus inf lammation: WBC 40 RBC 3 L 90 E N Glu 42 Protein 71. ID consulted, recs to continue IV acyclovir. HSV negative x2, at OSH and [facility]. Patient symptomatically improving with acyclovir, increased [...] changes insurance, would like to see in [facility] after repeat antiphospholipid antibody [...] twitc leonor. Patient was transferred to our [facility] for higher level of care. Repeat MRI [...] the past, then I would recommend a crossing flagman - Repeat MRI to follow up on [...] ssion, PTSD presents as an transfer from [facility] for HLOC. The patient initially presented to [...] APLA and CVA, she was transferred to [facility] for HLOC. Hypercoaguable lab abnormalities: ESR [...] hypophone, mild dysarthria, comprehension and naming intact institutional nutrition consultant: 2-12 intact. Right and left horizon ana [...] (286.9) 6. hyperlipidemia (272.4) Level of service: [id number] Tim John MD, PhD #[id number] [facility] Extracted from:Title: Clinical Document Author: Ashley Rosas MD Date: 03/16/15 General Neurology Consult Note Requesting Physician/Service: Transfer from [facility] Reason for admission: New onset seizures, possible HSV menin gitis HISTORY OF PRESENT ILLNESS: Ms Whyte is a 49 y/o woman wi th PMH of R MCA CVA with no residual deficits (per last discharge note from stroke) on anticoagulation with Xarelto for possible APLA (please see PMH below for de tails), chronic migraines, anxiety/depre ssion, PTSD presents as an transfer from [facility] for HLOC. The patient initially presented to [...] APLA and CVA, she was transferred to [facility] for HLOC. Review of Systems: GEN: [...] Brittni borrero. Per EMR review, her Swapnil ([id number]) is listed as her next of kin. [...] intact, repetition and naming intact. Psychogenic stutter institutional nutrition consultant: EOMI, PERRLA, R gaze horizontal nys tagmus, [...] Pending PT/OT evaluation Next of kin: Swapnil ([id number]) The case was discussed with the personal counselor General Neurology attending Dr Dey. General Neurology is primary, please call [phone] with questions. Ashley Rosas PGY-3 [facility] Neurology NEUROLOGY ATTENDING I personally [...] verbal output on exam, but can answer [facility] (unsure which one), and her name. (3) HYPERCOAGULABLE STATE/ s/p STROKE: h ypercoagulable state: apparently (+) here and (-) at OSH. Need clarification before restarting Xarelto. (4) SEIZURES: agree w/Keppra 1000 bid. N ewly on AEDs? Agree w/dose and watching pt. DIAGNOSES ENCEPHALITIS SEIZURES APHASIA HYPERCOAGULABLE STATE CPT 07256 Extracted from:Title: Stroke Transfer Summary 11/01/2014 [facility] Author: Gael Peña MD Date: 10/31/14 [...] all questions were answered. Pablo Peña MD [facility] Family Medicine PGY-2 Extracted from:Title: Cardiology [...] concerns. Nacho Valencia MD Resident, PGY-1 Pager: [phone] CARDIOLOGY STAFF I saw and examined the [...] Ladd M.D. Extracted from:Title: Clinical Document 11/14/2013 [facility] Author: Tanmay Pedroza Date: 11/14/2013 Stroke Progress Note - Daily [facility] mpleted: Oct, 08:32 by Tanmay Pedroza [...] propylaxis Dispo - plan to transfer [facility] for further workup, no acute stroke STROKE NEUROLOGY STAFF I have seen and examined the patient. Fu rthermore, I have discussed the case with and reviewed 's note and agree with the history, exam, assessment and plan. See note below for additions and/or exceptions and my findings. I hav e personally viewed the patient's radiographic studies and laboratory tests. Assessment / Plan: 48383 Weakness-728.87 Hypercoagulable state-289.82 Numbness-782.0 48 years old [...] coumadin with therapeutic INR. Wilberto Garcia M.D. [facility] Dept of Neurology [phone] (pager) Extracted from:Title: Clinical Document Author: Damian [...] 2.7 on 11/02) who was transferred to [facility] from [facility] for possible ischemic stroke. Per the pt, [...] so he told her to go to [facility] ER. There, the pt was noted to [...] time window. She was subsequently transferred to [facility] for stroke workup. On my assessment, the pt states that she continues to experience right-sided headache (but it is resolving) and left arm weakness which has n ot significantly changed since she arriv ed to [facility]. Initial NIHSS 7 (see details below). Of note, she was admitted to the [facility] service in 04/2013 for left [...] The pt lives with her daughter in [place], [place]. She is from her . She [...] open/ close the eyes and then to special education classroom aide and release the non- paretic hand ____ [...] THE FOLLOWING WERE PRESENT ON ADMISSION (POA) DATA ENTRY OPERATOR Old right frontal infarct Left facial [...] studies and laboratory tests. Assessment / Plan: 84273 Weakness-728.87 Hypercoagulable state-289.82 Numbness-782.0 48 years old [...] has also been emphasized. Wilberto Garcia M.D. [facility] Dept of Neurology [phone] (pager) Plan of Care No Data Provided for This Section Social History Social History Date Source Social History TypeResponse 03/17/2015 [facility] Substance Abuse Use: None. Alcohol Past, Type [...] 2 entered on: 03/10/19 1Stopped smoking in 380[address]bgmhnd 6-12 cigarettes per day Family History No Data Provided for This Section Advance Directives No Data Provided for This Section Functional Status No Data Provided for This Section
--- OUTSIDE RECORDS SUMMARY | 2020-04-29 22:31 | XMS REPORT | Continuity of Care Document ---
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 Route: l Chloride 23:00: Bubis IVPB, [place] 0.9% IV 250 00 [id number], mL Dosing Weight 98.182, kg, Start date: [...] Route: PO, [place] 00 Drug form: TAB, [id number], Dosing Weight 98.182, kg, Start date: 05/10/13 [...] Gilderslee tab, l 02:00: lyndsey Route: PO, [place] 00 Drug form: TAB, Bedtime, Dosing Weight 113.636, kg, Start date: 05/09/13 21:00:00, Duration: 30 day, Stop date: 06/07/13 21:00:00 Mag-Ox 400 No Kamal 400 mg, 1 M emoria 05-10 Zi tab, l 00:00: Angeline Route: PO, [place] 00 Drug form: TAB, On Adm, Start [...] IVPB, Drug Enrique n 00 form: PDR/INJ, [id number], Dosing Weight 98.182, kg, Start date: 05/09/13 [...] 05-09 Carmen Rate: l 12:37: Zwiener 1,000 [place] 00 ml/hr, Infuse over: 1 hr, Route: [...] Dom Route: l 11:49: Tom IVP, Drug [place] 00 Form: SOLN, Dosing Weight 98.182, kg, ONCALL, STAT, Start date: 05/09/13 6:49:00, Duration: 1 doses or times, Dose = 2.2ml/kg, Max dose = 100ml -- "To be infused by Radiology Staff ONLY"Dose = 2.2ml/kg, Max dose = 100ml -- "To be infused by Radiology Staff ONLY" NS 1000 mL No Lyndon 1,000 mL, Memoria 05-09 Amado Rate: 150 l 03:31: Bubis ml/hr, [place] 00 Infuse over: 6.7 hr, Route: IV, [...] tab, PO, l tablet 19:05: Q6H, 24 [place] 27 tab, Substituti on Allowed, TAB aspirin 325 2011-08 Yes Anita Marcelino 325 mg, 1 Memoria mg tablet 2-04 [place] tab, PO, l 19:05: Daily, 30 [place] 08 tab, Substituti on Allowed, TAB verapamil 2011-08 No Anita Marcelino 40 mg, 1 Memoria 40 mg oral 2-04 [place] tab, PO, l tablet 19:03: TID, 90 [place] 44 tab, Substituti on Allowed, TAB caffeine 2011-08 No Anita Marcelino 100 mg, 1 Memoria 100 mg oral 2-04 [place] tab, PO, l tablet 19:03: Q3H, 12 [place] 29 tab, Substituti on Allowed, TAB caffeine 2011-08 No Naomi Viki 250 mg, Memoria 2-04 Quang Route: l 18:15: IVPB, [place] 00 ONCE, Dosing Weight 113.636, kg, Start [...] tab, PO, l tablet 17:59: TID, 90 [place] 46 tab, 3, 3, Substituti on Allowed, [...] Viki 4 mg, 2 Memoria mg/mL 2-04 Quang mL, IV, l injectable 14:30: Q6H, PRN, He rmann solution 16 15 mL, 1, 1, Nausea, Substituti on Allowed, INJ Cipro 250 2011-08 Yes Anita Marcelino 250 mg, 1 Memoria mg oral 2-04 [place] tab, PO, l tablet 14:30: Q12H, 6 [place] 09 tab, Substituti on Allowed, TAB Lipitor 40 2011-08 Yes Naomi Viki 40 mg, 1 Memoria mg oral 2-04 Quang tab, PO, l tablet 14:30: QPM, 30 [place] 06 tab, 3, 3, Substituti on Allowed, TAB Cipro 2011-08 No Anita Marcelino 250 mg, 1 Mem oria 2-04 [place] tab, l 05:00: Route: PO, [place] 00 Drug form: TAB, Q12H, Dosing Weight [...] Govind Rate: 500 l 22:31: Koranne ml/hr, [place] 00 Infuse over: 1 hr, Route: IV, [...] l benzoate + 19:20: Koranne IVPB, Drug [place] Sodium 00 form: INJ, Chloride ONCE, 0.9% [...] Emanuel mL, Route: l 17:00: Chahil SUB-Q, [place] 00 Drug form: INJ, Q24H, Dosing Weight 113.636, kg, Start date: 07/19/12 11:00:00, Duration: 30 day, Stop date: 08/17/12 11:00:00 hydromorpho 2011-08 No David Agustin 1 mg, 0.5 Memoria ne -02 Psicer mL, Route: l 16:49: IVP, Drug [place] form: INJ, ONCE, Dosing Weight 113.636, kg, Priority: STAT, Start date: 07/19/12 10:49:00, Stop date: 07/19/12 10:49:00 Plavix 2011-08 No Anita Marcelino 75 mg, 1 Mem oria 2-02 [place] tab, l 16:17: Route: PO, [place] 00 Drug form: TAB, Daily, Dosing Weight [...] Memor ia 2-02 Daily, l 13:02: Substituti [place] 47 on Allowed Haldol 2011-08 Yes Baudilio 2 mg, PO, Mem oria 2-02 Castellanos Daily, l 13:02: Chahil Substituti Aliza nn 42 on Allowed Wellbutrin 2011-08 Yes Baudilio 300 mg, M emoria 2-02 Castellanos PO, Daily, l 13:02: Chahil Substituti Aliza nn 38 on Allowed Zoloft 2011-08 Yes Baudilio 100 mg, Memor ia 2-02 Castellanos PO, Daily, l 13:02: Chahil Substituti Aliza nn 34 on Allowed clonidine 2011-08 Yes [...] [facility] Aspir-81 Aspir-81 Yes James [address] [facility] Potassium Potassium Yes James [address] [facility] Chloride Ch[facility]ide [facility] Lipitor Lipitor Yes James [address] [facility] Ambien Ambien Yes James 1 tablet [facility] Symbicort Symbicort Yes James [address] [facility] Lasix Lasix Yes James 0.5 tablet [facility] Promethazin Promethazin Yes James [...] [facility] Metoprolol Metoprolol Yes James [address] [facility] Tartrate Tartrate [facility] with food [facility] Eliquis Eliquis Yes James as [facility] Clopidogrel Clopidogrel Yes James [...] Diastolic (mm Hg) 2019-03-13 01:15:00 Mem orial [place] Temperature Oral (F) 2019-03-13 01:15:00 97.0 F [facility] [place] Respitory Rate 2019-03-13 01:15:00 Memori al [place] Heart Rate 2019-03-12 22:53:00 [facility] [place] Respitory Rate 2019-03-12 22:07:00 Memori al [place] Systolic (mm Hg) 2019-03-12 22:07:00 Mike rial [place] Diastolic (mm Hg) 2019-03-12 22:07:00 Mem orial [place] Heart Rate 2019-03-12 22:07:00 [facility] [place] Systolic (mm Hg) 2019-03-12 20:52:00 Mike rial [place] Diastolic (mm Hg) 2019-03-12 20:52:00 Mem orial [place] Temperature Oral (F) 2019-03-12 20:52:00 97.3 F [facility] [place] Respitory Rate 2019-03-12 20:52:00 Memori al [place] Heart Rate 2019-03-12 20:52:00 [facility] [place] Temperature Oral (F) 2019-03-12 16:26:00 97.3 F [facility] [place] Weight 2019-03-10 08:42:00 [facility] [place] Weight 2019-03-10 08:31:00 [facility] [place] Height 2019-03-10 08:31:00 160.02 cm [facility] [place] BMI Calculated 2019-03-10 08:31:00 Mem[facility] al [place] Weight 2019-03-09 20:31:00 [facility] [place] BMI Calculated 2019-03-09 20:31:00 [facility] al [place] Height 2019-03-09 20:31:00 172.72 cm [facility] [place] Temperature Oral (F) 2015-03-22 21:22:00 97.5 F [facility] [place] Heart Rate 2015-03-22 21:22:00 [facility] [place] Respitory Rate 2015-03-22 21:22:00 Memori al [place] Systolic (mm Hg) 2015-03-22 21:22:00 Mike rial [place] Diastolic (mm Hg) 2015-03-22 21:22:00 Mem orial [place] Heart Rate 2015-03-22 17:00:00 [facility] [place] Respitory Rate 2015-03-22 17:00:00 Memori al [place] Temperature Oral (F) 2015-03-22 17:00:00 97.4 F [facility] [place] Systolic (mm Hg) 2015-03-22 17:00:00 Mike rial [place] Diastolic (mm Hg) 2015-03-22 17:00:00 Mem orial [place] Systolic (mm Hg) 2015-03-22 14:14:00 Mike rial [place] Diastolic (mm Hg) 2015-03-22 14:14:00 Mem orial [place] Heart Rate 2015-03-22 14:14:00 [facility] [place] Temperature Oral (F) 2015-03-22 14:14:00 97.8 F [facility] [place] Respitory Rate 2015-03-22 14:14:00 [facility] al [place] Weight 2015-03-17 00:52:00 [facility] [place] Height 2015-03-17 00:52:00 160.02 cm [facility] [place] BMI Calculated 2015-03-17 00:52:00 Memori al [place] Temperature Oral (F) 2014-11-01 00:46:00 98.1 F [facility] [place] Heart Rate 2014-11-01 00:46:00 [facility] [place] Respitory Rate 2014-11-01 00:46:00 Memori al [place] Systolic (mm Hg) 2014-11-01 00:46:00 Mike rial [place] Diastolic (mm Hg) 2014-11-01 00:46:00 Mem orial [place] Temperature Oral (F) 2014-10-31 21:18:00 98.6 F [facility] [place] Heart Rate 2014-10-31 21:18:00 [facility] [place] Respitory Rate 2014-10-31 21:18:00 Memori al [place] Systolic (mm Hg) 2014-10-31 21:18:00 Mike rial [place] Diastolic (mm Hg) 2014-10-31 21:18:00 Mem orial [place] Temperature Oral (F) 2014-10-31 15:55:00 98.2 F [facility] [place] Respitory Rate 2014-10-31 15:55:00 Memori al [place] Systolic (mm Hg) 2014-10-31 15:55:00 Mike rial [place] Diastolic (mm Hg) 2014-10-31 15:55:00 Mem orial [place] Heart Rate 2014-10-31 15:55:00 [facility] [place] Weight 2014-10-26 02:54:00 [facility] [place] BMI Calculated 2014-10-26 02:54:00 Memori al [place] Height 2014-10-26 02:54:00 160.02 cm [facility] [place] Diastolic (mm Hg) 2013-11-14 19:30:00 Mem orial [place] Heart Rate 2013-11-14 19:30:00 [facility] [place] Systolic (mm Hg) 2013-11-14 19:30:00 Mike rial [place] Respitory Rate 2013-11-14 19:30:00 Memori al [place] Temperature Oral (F) 2013-11-14 19:30:00 98.3 F [facility] [place] Heart Rate 2013-11-14 17:18:00 [facility] [place] Respitory Rate 2013-11-14 17:18:00 Memori al [place] Temperature Oral (F) 2013-11-14 17:18:00 98.0 F [facility] [place] Systolic (mm Hg) 2013-11-14 17:18:00 Mike rial [place] Diastolic (mm Hg) 2013-11-14 17:18:00 Mem orial [place] Diastolic (mm Hg) 2013-11-14 16:00:00 Mem orial [place] Systolic (mm Hg) 2013-11-14 16:00:00 Mike rial [place] Temperature Oral (F) 2013-11-14 15:04:00 97.4 F [facility] [place] Respitory Rate 2013-11-14 07:00:00 Memori al [place] Height 2013-11-13 11:04:00 162.56 cm [facility] [place] Weight 2013-11-13 11:04:00 [facility] [place] BMI Calculated 2013-11-13 11:04:00 Memori al [place] BMI Calculated 2013-11-13 08:43:00 Memori al [place] Height 2013-11-13 08:43:00 160.02 cm [facility] [place] Weight 2013-11-13 08:43:00 [facility] [place] Heart Rate 2013-11-13 08:43:00 [facility] [place] Heart Rate 2013-05-12 16:17:00 [facility] [place] Diastolic (mm Hg) 2013-05-12 16:17:00 Mem orial [place] Systolic (mm Hg) 2013-05-12 16:17:00 Mike rial [place] Respitory Rate 2013-05-12 15:30:00 Memori al [place] Diastolic (mm Hg) 2013-05-12 12:53:00 Mem orial [place] Systolic (mm Hg) 2013-05-12 12:53:00 Mike rial [place] Respitory Rate 2013-05-12 12:53:00 Memori al [place] Heart Rate 2013-05-12 12:53:00 [facility] [place] Temperature Oral (F) 2013-05-12 12:53:00 99.1 F [facility] [place] Diastolic (mm Hg) 2013-05-12 08:31:00 Mem orial [place] Systolic (mm Hg) 2013-05-12 08:31:00 Mike rial [place] Respitory Rate 2013-05-12 08:31:00 Memori al [place] Heart Rate 2013-05-12 08:31:00 [facility] [place] Temperature Oral (F) 2013-05-12 08:31:00 99.8 F [facility] [place] Temperature Oral (F) 2013-05-12 04:50:00 99.8 F [facility] [place] Height 2013-05-09 03:31:00 160.02 cm [facility] [place] Weight 2013-05-09 03:31:00 [facility] [place] Respitory Rate 2012-07-22 01:09:00 Memori al [place] Systolic (mm Hg) 2012-07-22 01:09:00 Mike rial [place] Diastolic (mm Hg) 2012-07-22 01:09:00 Mem orial [place] Temperature Oral (F) 2012-07-22 01:09:00 98.6 F [facility] [place] Heart Rate 2012-07-22 01:09:00 [facility] [place] Diastolic (mm Hg) 2012-07-21 21:10:00 Mem orial [place] Systolic (mm Hg) 2012-07-21 21:10:00 Mike rial [place] Temperature Oral (F) 2012-07-21 21:10:00 97.2 F [facility] [place] Heart Rate 2012-07-21 21:10:00 [facility] [place] Respitory Rate 2012-07-21 21:10:00 Memori al [place] Temperature Oral (F) 2012-07-21 18:26:00 98.5 F [facility] [place] Heart Rate 2012-07-21 18:26:00 [facility] [place] Respitory Rate 2012-07-21 18:26:00 Memori al [place] Diastolic (mm Hg) 2012-07-21 18:26:00 Mem orial [place] Systolic (mm Hg) 2012-07-21 18:26:00 Mike rial [place] Weight 2012-07-19 12:37:00 [facility] [place] Height 2012-07-19 12:37:00 160.02 cm [facility] [place] Procedures Procedure Date / Time Performing Clinician Source Performed Spinal puncture, 2015-03-17 20:30:27 [facility] rmann therapeutic, for drainage of cerebrospinal fluid (by needle or catheter) Appendectomy [facility] [place] Cholecystectomy [facility] [place] Ankle fusion<sup>1</sup> Memoria l Cabrera Appendectomy [facility] [place] Cholecystectomy [facility] [place] Fixation of fracture using Memor ial Cabrera plate Hysterectomy [facility] Cabrera Encounters Start End Encounter Admission Attending Care Care Encounter Source Date/Time Date/Time Type Type Clinicians Facility Department ID 2020-04-27 2020-04-27 Refagustina Escobar NHDELISA [id number] 00:00:00 00:00:00 Ludwig Gill [id number] [place] [id number] [id number] [address] 2020-03-28 2020-03-28 [facility] [id number] [address] 16:00:00 16:00:00 [facility] Family Medicine Medicine Outpati ent Clinics 2020-03-27 2020-03-27 Refill Shawn NHDELISA [id number] 00:00:00 00:00:00 Sendden Gill [id number] [place] [id number] Professtanisha [id number] [address] 2020-02-21 2020-02-21 [facility] [id number] 15:00:00 15:00:[address] Luke s - Drive [facility] Medicine l Medicine Outpati ent Clinics 2020-02-16 2020-02-16 [facility] [id number] 07:13:00 07:13:[address] ke s - Drive [facility] l Medicine Outpati ent Clinics 2020-02-15 2020-02-15 [facility] [id number] 14:22:00 14:22:00 [facility] [place] s - Drive [facility] l Medicine Outpati ent Clinics 2020-01-06 2020-01-21 Telemedici Escobar, [facility] [id number] 08:06:15 01:22:36 ne Visit Ludwig Gill [id number] [place] [id number] [facility] [id number] [address] 2020-01-17 2020-01-17 Orders Doctor ROSEMARY [id number] 00:00:00 00:00:00 Only Unassigned, OSITO [id number] [facility] [id number] 2020-01-12 2020-01-12 [facility] [id number] 16:30:00 16:30:00 [facility] l Medicine Outpati ent Clinics 2019-12-27 2019-12-27 [facility] [id number] 14:45:00 14:45:00 [place] s - Drive [facility] Medicine l Medicine Outpati ent Clinics 2019-09-27 2019-09-27 [facility] [id number] 15:00:00 15:00:00 [facility] [address] [facility] Medicine l Medicine Outpati ent Clinics 2019-03-09 2019-03-12 Outpatient Natasha [facility] [id number] 15:30:52 21:00:00 Vonda Siegel 2019-03-09 2019-03-09 Inpatient E [facility] [address] [place] [address] 18:36:00 15:30:00 2015-03-16 2015-03-22 Outpatient Yissel [facility] [id number] 18:33:00 20:09:00 Gael Stephenson 11 2014-10-25 2014-10-31 Outpatient DEREJE Garcia RADHA [id number] 20:37:00 20:05:00 Amrou 69 2013-11-13 2013-11-14 Outpatient DEREEJ Garcia RADHA [id number] 03:43:00 18:45:00 Amrou Results Test Description Test Time Test Comments [...] nn 08:51:00 CHEM PANEL 2019-03-12 143 [facility] Alzia nn 08:51:00 CHEM PANEL 2019-03-12 1.9 [facility] [...] code = MCH) 29.0 pg 27.0-31.0 [facility] YcixggiLEVRSZHWVX2277-23-73 08:51:0032.7[facility] HermannHEMATOLOGY 2019-03-12 08:51:0088.4[facility] GafqrwbYXQOJZVJUZ4675-92-91 08:51:0032.2[facility] HermannPARATHYROID MTMWZDZ1437-94-39 08:51:001.05[facility] HermannPARATHYROID KYFIBJR0015-35-53 08:51:001.05[facility] HermannCHEM WCVUQ1741-18-53 21:57:0083 [facility] HermannCHEM [id number] 21:57:0011.4[facility] HermannCHEM PANEL 2019-03-11 21:57:008.2[facility] HermannCHEM ACSHE5358-93-51 21:57:0025[facility] HermannCHEM JHZVM2003-00-45 21:57:19136Ulbjgwvo HermannCHEM MKVIC7260-03-38 21:57:003.4[facility] HermannCHEM YVFYB6982-05-51 21:57:000.80[facility] HermannCHEM MIASJ5677-63-24 21:57:76792Kssdsobg HermannCHEM XNMDV3957-13-05 21:57:95443 [facility]annCHEM ATWDD4525-46-62 21:57:004[facility] HermannPARATHYROID RBHPIQO0183-61-63 21:57:001.07[facility] HermannPARATHYROID OBBZFGM1294-94-82 21:57:001.07[facility]annURINE AND QCKQL8904-10-86 21:57:004[facility] [place] URINE AND FIUKH3833-32-28 21:57:00Negative (03/11/19 4:57 PM)[facility] URINE AND [id number] 21:57:00<1.0[facility]annURINE AND STOOL 2019-03-11 21:57:00Negative (03/11/19 4:57 PM)[facility] STOOL 2019-03-11 21:57:00Negative *NA*(03/11/19 4:57 PM)[facility] STOOL 2019-03-11 21:57:00Negative (03/11/19 4:57 PM)[facility] STOOL 2019-03-11 21:57:001[facility]ann[facility] AND [id number] 21:57:00Yellow *NA*(03/11/19 4:57 PM)[facility] AND [id number] 21:57:00Slight *ABN*(03/11/19 4:57 PM)[facility] AND [id number] 21:57:00 Test Item Value Reference Range Interpretation Comments UA Spec Grav (test code = UA Spec 1.016 1 Grav) [facility] AND [id number] 21:57:00 Test Item Value Reference Range Interpretation Comments UA pH (test code = UA pH) 8.0 1 5.0-8.0 [facility] [id number] 21:57:007.4[facility] CHEM 2019-03-11 21:57:14006Koxnbsnu HermannURINE [id number] 21:57:45980Rarhorzo HermannURINE JMOH6229-53-68 21:57:89309Ooldlfgc HermannURINE BTWK7363-59-97 21:57:00Negative (03/11/19 4:57 PM)[facility] HermannCHEM [id number] 09:03:00 109[facility] HermannCHEM YCHIW2842-13-85 09:03:002.9[facility] HermannCHEM PANEL 2019-03-11 09:03:71910Zsirjezd HermannCHEM LFVBE0726-10-19 09:03:000.51[facility] HermannCHEM LQWJR0981-21-05 09:03:004[facility] HermannCHEM RIDMW9397-82-87 09:03:0079[facility] HermannCHEM VMDXP3989-52-48 09:03:007.6[facility] HermannCHEM ODUJR0483-81-20 09:03:009.9[facility] HermannCHEM LUSLH3315-10-30 09:03:0027 [facility] HermannCHEM MQDDB2333-56-49 09:03:79566Wfwmcnfd HermannCHEM PANEL 2019-03-11 09:03:003.7[facility] HermannCHEM IXVZQ2647-38-95 09:03:002.0[facility] JwqjapdLRYHMAIFUG5382-80-43 09:03:008.1[facility] VbaupsmSQBVZBCYKG4686-67-56 09:03:92603Nggjjkwa HspqldoIPAWVGWEQT4286-26-94 09:03:0016.6[facility] [place] ZHECWZOLZD7807-86-41 09:03:00 Test Item Value Reference Range Interpretation Comments MCH (test code = MCH) 29.0 pg 27.0-31.0 [facility] KdbspkhUGQLMBTPSX8234-90-30 09:03:0033.0[facility] HermannHEMATOLOGY 2019-03-11 09:03:003.64[facility] RoaseiiFCQOJGSOID2652-50-65 09:03:0010.6[facility] TdjebkzXOBPPWAZMP2038-41-64 09:03:009.3[facility] LunsyipVQBNXSHNPJ8500-37-42 09:03:0087.8[facility] KatytjjUBZYHEQNRZ4543-99-80 09:03:0032.0[facility] [place] KSPTNACJSC5599-82-09 09:03:004.0[facility] VvlogxjQGMABDBRCA9128-74-54 09:03:00 62.5[facility] CzvldvzKEGSHKHSBC5435-67-36 09:03:0027.8[facility] HermannHEMATOLOGY 2019-03-11 09:03:004.5[facility] YmzcvaqSOYOKIXSIJ4541-94-47 09:03:005.8[facility] HduglntYXIZOCFQXE0527-79-63 09:03:002.6[facility] LikqfudWHVODIMHEL2667-45-85 09:03:000.4[facility] MvezqlsRYQWTJREMF7839-24-71 09:03:000.4[facility] [place] UKDNYXMJWE5789-10-25 09:03:001.2[facility] GtzzkapNBOGLORVSA8934-45-71 09:03:000.1 [facility] HermannPARATHYROID RTOKVTK9879-35-56 09:03:000.91[facility] [place] PARATHYROID VKFKGHG7866-29-61 09:03:000.96[facility] AneodskQHQCFFBQEP4012-43-59 19:00:000.3[facility] IssvweoUVRYYLKLLO1475-38-80 19:00:000.4[facility] [place] HIVFZEAFWB1511-07-12 19:00:002.8[facility] FcefwpuVIXVIOQRRE5233-43-30 19:00:000.1 [facility] BtuatfsAFNAZPDVWH2381-05-03 19:00:0061.6[facility] HermannHEMATOLOGY 2019-03-10 19:00:0029.1[facility] FffzmwuVJVVXTHVRD1410-69-94 19:00:001.2[facility] JxplgxgPBCVZHQGBL6384-65-74 19:00:004.5[facility] OwuizrpBNSWXJKSIC0760-83-09 19:00:005.8[facility] QtzgeboASVIYUYHWH6396-03-08 19:00:003.6[facility] RYWSNAFLBX9279-83-72 19:00:007.9[facility] YopwdacHTXZECYLLT6113-95-97 19:00:00 34.6[facility] ZgzokklKQVJGAGZKD7228-60-01 19:00:00 Test Item Value Reference Range Interpretation Comments MCH (test code = MCH) 28.6 pg 27.0-31.0 [facility] NaqizjcWUQNQXSDDH1249-31-74 19:00:0088.5[facility] HermannHEMATOLOGY 2019-03-10 19:00:19687Ilbnwqof GunkrhoJEOHBYGIUQ1937-63-49 19:00:0016.7[facility] PyjzsgdZFTEPDBBGO1469-73-80 19:00:0032.3[facility] LrswsfjDKWHOXSRXB5384-70-01 19:00:0011.2[facility] SphqmdiWYAYUUGMFF4237-68-08 19:00:003.91[facility] CRGLBNFELJ2852-19-10 19:00:009.5[facility] EdmtozrRYQGMXLWJM9907-16-75 19:00:00 Test Item Value Reference Range Interpretation Comments INR (test code = INR) 1.06 1 0.85-1.17 [facility] DvjftazFSCJHZTOFQ2950-69-23 19:00:00 Test Item Value Reference Range Interpretation Comments PT (test code = PT) 13.6 s 12.0-14.7 [facility] TozaqmwFYOAKGQLHK2189-89-43 19:00:00 Test Item Value Reference Range Interpretation Comments PTT (test code = PTT) 36.3 s 22.9-35.8 [facility] KAAQWIT1354-03-44 11:47:000.30[facility]annCHEM PANEL 2019-03-10 11:47:001.6[facility]annCHEM UBEPY2398-92-70 11:47:002.1[facility] UrkxjjlICCQOE8469-86-25 11:47:00 Test Item Value Reference Range Interpretation Comments VLDL (test code = VLDL) 39 1 [facility] QypfixiPZBIJT1120-18-85 11:47:0036[facility] XfxdarkHVICYK8331-30-51 11:47:0028[facility] JlwopcyQNMYHQ5974-94-89 11:47:00722Glkohyfq HermannLIPIDS 2019-03-10 11:47:57750Josctjde YsndwnvZXHQCY1563-61-66 11:47:00 Test Item Value Reference Range Interpretation Comments CHD Risk (test code = CHD Risk) 3.68 1 3.90-5.80 [facility] FSLCMSNZP0529-87-79 11:47:004.8[facility]annANEMIA GEPLG5946-84-95 09:18:74415Kmjfeumt HermannANEMIA PVGYM7691-77-24 09:18:004.4 [facility]annCARDIAC VGIGCWR3541-14-11 09:18:0010[facility]annCHEM PANEL 2019-03-10 09:18:93434Bytshoje LgwqqgtDNXXEXHJFC1877-68-76 07:49:00 Test Item Value Reference Range Interpretation Comments PTT (test code = PTT) 42.4 s 22.9-35.8 [facility] EevpfzvWGCILSGIRU9495-13-95 07:49:00 Test Item Value Reference Range Interpretation Comments PT (test code = PT) 13.5 s 12.0-14.7 [facility] OiaxtwxLDSIRAAEAY0353-90-79 07:49:00 Test Item Value Reference Range Interpretation Comments INR (test code = INR) 1.05 1 0.85-1.17 [facility]CARD[facility]AC NIYCDCQ0835-60-69 07:00:000.48[facility]annC[facility]AC MQOFKDN5322-49-03 22:16:000.50[facility]annC[facility]AC DSHCCDU3080-76-12 22:16:00 63[facility]annCHEM BYNZN3342-03-97 22:16:001.2[facility]annHEMATOLOGY 2019-03-09 22:16:00 Test Item Value Reference Range Interpretation Comments PTT (test code = PTT) 31.7 s 22.9-35.8 [facility] HlnsmytCXRLRTTBBU5321-78-77 22:16:00 Test Item Value Reference Range Interpretation Comments INR (test code = INR) 1.07 1 0.85-1.17 [facility] ZlzmnwcETHHTCVOBR4191-66-36 22:16:00 Test Item Value Reference Range Interpretation Comments PT (test code = PT) 13.7 s 12.0-14.7 [facility] JUAWH3924-30-51 09:12:003.5[facility]annCHEM PANEL 2015-03-22 09:12:001.8[facility] LoqykerLQMFEATSBZVJ2278-89-47 09:12:0022[facility] BsnktojUBSQGTGGTBLF7566-99-80 09:12:008.9[facility] QlufpgcJWJALMMGQQYS0240-79-21 09:12:0014.6[facility] YydcgtkUEEZEFQRDHLS6591-43-12 09:12:37269Bebpwdod [place]rera CRMVJRWIZCDF1241-49-43 09:12:003.6[facility] QvjzvnmAJYHMICXWJDL6621-88-40 09:12:000.9[facility] PyzjwzsXNOTZFGNSNWL9602-43-32 09:12:20854Eyxcwxmb [place] ANWTLUMRVDDN4337-34-52 09:12:0081[facility] NilbfdpUNHEQNUOEBDC2319-05-10 09:12:00 10[facility] CcefpnqACLSCVFFIMUH5010-89-73 09:12:0075[facility]annHEMATOLOGY 2015-03-22 09:12:007.5[facility] RagjcuhVEGWQCZUOC8651-83-87 09:12:87680Ufdfbgnk KecrfauRWDHIUHMFY8724-58-43 09:12:0011.7[facility] XixfvsuYCVYCUEXNZ8888-00-20 09:12:0032.6[facility] CxgvgeaZCFMRORUJV2231-84-69 09:12:0084.1[facility] [place] OCILOQFYBM1720-46-01 09:12:003.87[facility] BjajdynFZGMLLABCC7470-18-50 09:12:00 10.4[facility] OugwbpoAKYHMGYMLQ5288-86-74 09:12:0031.9[facility]annHEMATOLOGY 2015-03-22 09:12:00 Test Item Value Reference Range Interpretation Comments MCH (test code = MCH) 26.8 pg 27.0-31.0 [facility] XzoiizxPXMNIWHTOH5147-82-33 09:12:0017.6[facility]annHEMATOLOGY 2015-03-22 09:12:001.0[facility] IzwrmkbQFVIHIMMBS0582-31-22 09:12:007.4[facility] FmtoviwEUJVMNVLXC6678-84-57 09:12:0038.6[facility] PsnbnlbZYNFIFJLBU0161-66-83 09:12:0052.0[facility] IfbstasWNLDCQRNTQ9908-11-85 09:12:001.0[facility] [place] NTUBVSTRBT9649-55-82 09:12:006.1[facility] SejndzlXAGAVDYXRS9932-05-88 09:12:000.1 [facility] PprweqiYVGJHKABMK4884-21-23 09:12:000.9[facility]annHEMATOLOGY 2015-03-22 09:12:000.1[facility] LnahkgvKKELHQXYVI5308-74-64 09:12:004.5[facility] QoimodcVWYVTYDYLL6374-53-82 16:38:005.0[facility] ChdrxbhETSTAXOQLB2695-52-38 16:38:0014.5[facility] EaaequdAYYPZSDQXX1345-58-86 16:38:0016.2[facility] [place] KODSVNPRCR7465-15-22 16:38:0015.1[facility] AyzgultWZMMYSTOES0171-39-69 16:38:00 49.2[facility] WiylrtwRDKAZEZTZK4245-70-70 16:38:000.34[facility] HermannIMMUNOLOGY 2015-03-21 16:38:006.8[facility] HlgtvvwGOGRGSXBEM1095-93-25 16:38:003.35[facility] VkosepxHKSANBYHEV2044-95-12 16:38:000.99[facility] WgzpznkGVDXJAGIIB6333-30-04 16:38:001.10[facility] QmxpxlkTKLOLMLQXR7341-60-48 16:38:001.03[facility] [place] CHEM MHFCO2960-25-21 09:35:18673Tefcsytl HermannCHEM DSEQN2065-00-85 09:35:009.1 [facility]annCHE[facility] BKPKQ1564-70-62 09:35:003.8[facility]annCHEM PANEL 2015-03-21 09:35:0021[facility]annCHEM NQPIA7588-05-62 09:35:01862Kfyhslxr HermannCHEM WLVAL6651-19-71 09:35:0011[facility]annCHEM ULYBJ9776-85-46 09:35:79053Gisvrdzd HermannCHEM JCFJP5079-00-65 09:35:0083[facility]annCHEM YKJIJ6838-02-62 09:35:000.7[facility]annCHEM ZTRCO3770-22-41 09:35:0014.8 [facility]annCHE[facility] YMLKY4360-29-02 09:35:001.8[facility]annCHEM PANEL 2015-03-21 09:35:004.1[facility] TmbwygoVKIRSQVCPB6858-37-98 09:35:000.1[facility] AegmjczZSCMJAOJQP2728-38-32 09:35:000.7[facility] EpebpegBRVQDDTUAR7492-98-80 09:35:001.0[facility] SnihneoHIEABJVFCV6568-75-75 09:35:001.2[facility] [place] VCGHVNDIBC0424-36-71 09:35:003.7[facility] XlklrpkEAWPMQWSYH5480-10-98 09:35:005.4 [facility] BhmrqacIMTLEQLZLJ5352-63-49 09:35:006.9[facility]annHEMATOLOGY 2015-03-21 09:35:000.1[facility] ItplpnsURAQYERQFO5172-94-34 09:35:0054.0[facility] KbfarbbMLJIQRUIOP2982-44-76 09:35:0036.9[facility] CbphbkfOXBFMUEBCZ7274-56-06 09:35:0032.9[facility] NzqppdxYRFCCWKUYH5522-37-41 09:35:0010.8[facility] HOCRYEKLOG4681-65-71 09:35:003.91[facility] FnnqbhdAFQACJRINW3346-26-18 09:35:00 10.0[facility] UvpdlhgETHFQRQZYZ6716-68-66 09:35:0032.9[facility]annHEMATOLOGY 2015-03-21 09:35:0017.2[facility] IonkdydZUNXJNDAEH2752-12-41 09:35:00 Test Item Value Reference Range Interpretation Comments MCH (test code = MCH) 27.7 pg 27.0-31.0 [facility] EbbknciYRDJNDTOSM7672-14-14 09:35:0084.2[facility]annHEMATOLOGY 2015-03-21 09:35:007.5[facility] PavhymaXREEFRMAPP8331-39-57 09:35:23004Bahvaans YzbzswaVMKFATXKJZ4249-30-45 04:39:036.4[facility]annCHEM EFORK5921-54-94 08:41:01435Irtkhbtb HermannCHEM DLAWI2913-59-87 08:41:67424Ssvlpclx HermannCHEM UIKIH5041-81-06 08:41:0071[facility]annCHEM ZYVZH0242-08-91 08:41:007[facility]annCHEM AVSEG3129-44-96 08:41:000.7[facility]annCHEM MACRU7298-74-93 08:41:003.9[facility]annCHEM IERUH9928-88-24 08:41:009.2[facility]annCHEM CPWJM4087-53-11 08:41:03696Rwtqajpl HermannCHEM LRLZZ8953-83-14 08:41:0023 [facility]annCHE[facility] AGYJW8167-85-27 08:41:0013.9[facility]annCHEM PANEL 2015-03-20 08:41:001.9[facility]annCHEM XZBHN7407-25-05 08:41:003.6[facility] ZhvtpcfQFMLGUXZKQ2231-15-97 08:41:0033.2[facility] ViunucsLXGHLDTWBM3967-51-65 08:41:55919Xqvmaiqi OwdmwycECVTIFVJGE2637-64-57 08:41:0017.2[facility] ZMMUPPVDZK5305-49-02 08:41:004.07[facility] NqkoeaqUQTXYQCKSU2452-89-13 08:41:00 9.6[facility] WfiyhgcBTGUELAZNC2736-27-38 08:41:0011.2[facility]annHEMATOLOGY 2015-03-20 08:41:0033.6[facility] VhwzmfuFSZRTKWELP4798-19-67 08:41:0082.6[facility] UxehwgzSZBQCOKCYI3974-34-16 08:41:00 Test Item Value Reference Range Interpretation Comments MCH (test code = MCH) 27.4 pg 27.0-31.0 [facility] HjulhqmUZZAFJUAOQ9879-15-79 08:41:007.7[facility]annHEMATOLOGY 2015-03-20 08:41:0055.3[facility] LjfseahIHYEWMAVTE1125-76-13 08:41:001.9[facility] MvzmbxyDXZZHPJZEK9851-31-99 08:41:0035.6[facility] QrwrdfsFGUOWEPRLQ8117-65-25 08:41:006.2[facility] WlzyyjoIPACVBXLSV5126-99-62 08:41:001.0[facility] JVNUSBJPTP4538-93-08 08:41:005.3[facility] QezvyueOCQAIMPVHM0284-09-56 08:41:003.4 [facility] KduddioIOYCGMEJHG0500-22-05 08:41:000.6[facility] HermannHEMATOLOGY 2015-03-20 08:41:000.1[facility] NtbsenoCLECZAEPUM5711-65-11 08:41:000.2[facility] DarrencFIWNDJZTCY1586-07-43 08:41:26293Xlixoqad JoslgkhZKXIRYKTUR9933-04-19 16:56:000.91[facility] KiiqbhkQFFPYQGVEZ7041-78-25 16:56:00Negative (03/19/15 11:56 AM)[facility] SxrrzfnOSZGVDJYNL5135-61-13 16:56:00Non Reactive *NA*(03/19/15 11:56 AM)[facility] EjirqfeTQNUOSQUTC7593-43-45 21:44:00Negative *NA*(03/18/15 4:44 PM) [facility]annVIRAL - JTHUWWHN5030-92-89 21:44:00<0.90[facility] [place] CARDIAC TLUQYFH8908-67-47 00:57:00<0.02[facility] KcgmqkkEELMNLRDRD0688-16-98 18:50:00 Test Item Value Reference Range Interpretation Comments PT (test code = PT) 14.5 s 12.0-14.7 [facility] XwiodmsLTQRLQCSCI4274-37-59 18:50:001.12[facility]annHEMATOLOGY 2015-03-17 18:50:00 Test Item Value Reference Range Interpretation Comments PTT (test code = PTT) 31.2 s 22.9-35.8 [facility]annCARDIAC NJGQCAG2667-55-74 17:15:00<0.02[facility]annCHEM ZJZKW1619-86-92 17:15:0071.0[facility] HermannBODY ZRFIJB6250-92-57 16:15:0042 [facility]annBODY AMHEMQ9636-06-04 16:15:009[facility]annBODY FLUIDS 2015-03-17 16:15:001[facility]annBODY LYTFUN8964-46-75 16:15:0090[facility]annBODY RRXWEW0354-84-89 16:15:00Clear (03/17/15 11:15 AM)[facility] [place] BODY JJIRPV5557-34-42 16:15:00Colorless (03/17/15 11:15 AM)[facility]annBODY UTHPEB8066-57-26 16:15:00 Test Item Value Reference Range Interpretation Comments Tube Num CSF (test code = Tube Num CSF) 3 1 [facility]annBODY PDEMTH1272-20-57 16:15:00Colorless (03/17/15 11:15 AM) [facility]annB[facility] LWMXSN5161-87-87 16:15:003[facility]annBODY FLUIDS 2015-03-17 16:15:50441Zswmqyfg HermannBODY LLQMNY8385-81-03 16:15:0071[facility] IoitwutHRKEKKDZOP1192-01-75 16:15:00Non Reactive (03/17/15 11:15 AM)[facility] HermannMOLECULAR KYUOSYNFOE3040-34-81 16:15:00Negative 9(03/17/15 11:15 AM) [facility]annMOLECULAR LAKYGYDBZG8471-84-87 16:15:00Negative 8(03/17/15 11:15 AM)[facility] HermannVIRAL - CGAYIDGV0468-60-54 16:15:00Negative (03/17/15 11:15 AM)[facility] HermannBACTERIAL - FLTUCQMC2380-14-92 12:34:00Negative (03/17/15 7:34 AM)[facility] PnnxtmxYOXRGMEBBO1589-07-83 04:26:44787Bwzokljf HermannBLOOD BANK RQHELZQ8803-39-42 02:18:00Negative (03/16/15 9:18 PM)[facility]annCHEM PANEL 2015-03-17 02:18:000.7[facility] HermannCHEM GJUHA8577-50-07 02:18:0012[facility]annCHEM FPFZK3773-10-10 02:18:003.9[facility]annCHEM RQSUK4110-92-20 02:18:005[facility]annCHEM MIXUJ9667-78-53 02:18:19432Orvrkkdb HermannCHEM LZBID2723-93-03 02:18:000.2[facility]annCHEM NGTJV1244-03-83 02:18:0019 [facility]annCHEM GRGRR7929-95-09 02:18:006.8[facility]annCHEM PANEL 2015-03-17 02:18:002.9[facility] HermannDRUG GQIECN2959-15-08 02:18:00See Note *NA*(03/16/15 9:18 PM)[facility] HermannDRUG ZMSGHV3755-26-63 02:18:00Negative *NA*(03/16/15 9:18 PM)[facility]annDRUG QVNIOW6333-38-61 02:18:00Negative *NA*(03/16/15 9:18 PM)[facility] HermannDRUG HEUNPV1458-58-76 02:18:00Negative *NA*(03/16/15 9:18 PM)[facility]annDRUG JVKKCG2059-14-72 02:18:00Negative *NA*(03/16/15 9:18 PM)[facility]annDRUG PUJGOB6072-35-95 02:18:00Negative *NA*(03/16/15 9:18 PM)[facility]annDRUG VSUQSA5070-17-39 02:18:00Negative *NA*(03/16/15 9:18 PM)[facility]annDRUG MGBPAA2921-54-09 02:18:00Negative *NA*(03/16/15 9:18 PM)[facility]annDRUG NLCDMY3131-44-02 02:18:00Negative *NA*(03/16/15 9:18 PM)[facility] HermannDRUG ESEFDW4740-31-80 02:18:00Negative *NA*(03/16/15 9:18 PM)[facility] PqgoplnJYAZOEEIHD2009-45-72 02:18:00 Test Item Value Reference Range Interpretation Comments PTT (test code = PTT) 29.7 s 22.9-35.8 [facility]annPARATHYROID MYKYBAG0326-45-36 02:18:001.15[facility] [place] PARATHYROID JHXHPJK4876-02-77 02:18:001.12[facility]annURINE AND STOOL 2015-03-17 02:18:00Negative *NA*(03/16/15 9:18 PM)[facility]annURINE AND STOOL 2015-03-17 02:18:00Negative (03/16/15 9:18 PM)[facility]annURINE AND STOOL 2015-03-17 02:18:00Negative (03/16/15 9:18 PM)[facility]annURINE AND STOOL 2015-03-17 02:18:00Negative (03/16/15 9:18 PM)[facility]annURINE AND STOOL 2015-03-17 02:18:00<1[facility]annURINE AND FMCYG7366-51-31 02:18:007.0 [facility]annURINE AND RMMNK7286-58-71 02:18:00Clear (03/16/15 9:18 PM) [facility]UR[facility] AND XJGQR3237-34-25 02:18:001.009[facility]annURINE AND AHUHR8220-58-27 02:18:00Light Yellow *NA*(03/16/15 9:18 PM)[facility] [place] GIBLUHIENK8020-89-90 13:30:00 Test Item Value Reference Range Interpretation Comments PTT (test code = PTT) 36.1 s 22.9-35.8 [facility] TzbbxfhFHMNPJHRXZ1781-35-09 13:30:00 Test Item Value Reference Range Interpretation Comments PT (test code = PT) 14.6 s 12.0-14.7 [facility] QohqlosOXPODLVLRQ8226-34-55 13:30:001.13[facility] HermannTOXICOLOGY 2014-10-31 13:30:292609Mbmflpbo KustcbdPWLJZZLCBD0361-86-95 13:30:0025.2[facility] HermannCHEM IQWOH7359-74-02 06:18:003.1[facility]annCHEM CBHGY3226-32-66 06:18:001.8[facility] EsfheeqBBDPMMBYYSLD9967-35-08 06:18:0014.1[facility] CXFJEEGTGQHX8602-24-69 06:18:38560Yerwzohu LvkwgjzMQLLSXHGDSYZ3736-49-48 06:18:23741Xlpdgusw FtdxuzzAVODEFAALZBR5002-04-36 06:18:86407Qoapftsq [place] VGAFGEUQHVWP8187-41-09 06:18:004.1[facility] AbtiuicUXAOMSZTWTOY4314-59-37 06:18:008.5[facility] VapxsstATEGUTLRHMFL1612-09-42 06:18:0025[facility] CERLMHHTSPFG6848-55-28 06:18:000.6[facility] CwqswcoPIYDNNBSMRUL3441-94-08 06:18:0062[facility] MsbgpluMAUNNRSCTJGS6211-22-92 06:18:006[facility] YEJUHRTEZC6511-36-19 06:18:000.1[facility] HenidtbFNKQPUQMZR6970-30-44 06:18:005.7 [facility] MpojwruKIXFCVNZJW6769-18-00 06:18:005.0[facility]annHEMATOLOGY 2014-10-31 06:18:0031.1[facility] NlyfsgeGZRKKQRJVV5895-18-81 06:18:005.7[facility] MnbkoqkVATDWTOUKY5962-23-75 06:18:0057.7[facility] KiifnjbWLODVBPNMA6327-00-69 06:18:000.5[facility] DybvxomRZJUVHMIZR3949-25-19 06:18:000.6[facility] KKHNJIJWUB6032-72-31 06:18:000.5[facility] BmkvjloHPVVXMNSNO0056-81-28 06:18:003.1 [facility] PrepvswCFCHUBDRTA4652-79-78 06:18:001.08[facility]annHEMATOLOGY 2014-10-31 06:18:00 Test Item Value Reference Range Interpretation Comments PTT (test code = PTT) 33.9 s 22.9-35.8 [facility] TjwydhnARJMBUCPZC2969-35-66 06:18:00 Test Item Value Reference Range Interpretation Comments PT (test code = PT) 14.1 s 12.0-14.7 [facility] IbjwunhDCUFYCNVWQ5929-83-26 06:18:0010.0[facility]annHEMATOLOGY 2014-10-31 06:18:003.22[facility] GjnpdkbFPYDQSXRKO1252-54-19 06:18:0028.9[facility] GgpxfdjXLEBLBGBWY9782-39-11 06:18:009.7[facility] JqbvbokLXZXWZROCQ8615-94-00 06:18:0033.4[facility] CjbjgbmUXIFNWQXBI6834-06-65 06:18:00 Test Item Value Reference Range Interpretation Comments MCH (test code = MCH) 30.0 pg 27.0-31.0 [facility] YsmkmrvBEWJSPNDLA2839-53-30 06:18:0089.8[facility]annHEMATOLOGY 2014-10-31 06:18:008.2[facility] ItdaohaKZRVIYTXSO0655-39-14 06:18:16963Skppwvsq XuwhednITURNMJGLV3406-69-25 06:18:0016.4[facility]annPARATHYROID PROFILE 2014-10-31 06:18:001.08[facility]annPARATHYROID AUZHPBD0009-39-92 06:18:00 1.05[facility]annCARDIAC ENYQJRJ4294-92-20 07:00:0070[facility]annCHEM XTDCI9437-90-77 07:00:003.2[facility]annCHEM ZZRSF1003-07-85 07:00:001.8 [facility] EoinitgGAJBXVYHLEJC3292-30-17 07:00:0010.6[facility] HermannELECTROLYTES 2014-10-30 07:00:0079[facility] HmqfbneCPIHGPADOXID9413-05-66 07:00:008[facility] JeboaoqKXJSJIYYYTDA5426-85-20 07:00:000.6[facility] BiyfqonOUHXIOUEIDFJ7298-50-53 07:00:0027[facility] XyndcesQJEYKQMDQJJJ6550-13-77 07:00:008.1[facility] [place] LBEFKIKZPTSE4429-62-28 07:00:003.6[facility] VkvaecgPXJDCOZOHIFH3544-11-19 07:00:32499Mwxwfbwf KwaidzgTWSFVFEOCZXL6710-09-42 07:00:73930Zaocrtbr [place] OLTKBPQBFIUJ2786-27-16 07:00:81454Jexitwyp XwanlxrXNFBJWRXWF3761-68-34 07:00:00 0.4[facility] CbnkglwJCEDRNJROJ8581-36-14 07:00:004.9[facility]annHEMATOLOGY 2014-10-30 07:00:000.6[facility] RjengduYOKVQEOKPJ0534-79-44 07:00:0049.4[facility] DvjlfrqSBYLIUDCLG1250-08-94 07:00:005.8[facility] SxqxefsBKOKFXKZTC0177-52-08 07:00:003.7[facility] BazecoaTKSIQNHKCB4551-74-18 07:00:0041.4[facility] AINZJFJKTH3962-96-35 07:00:000.4[facility] VkkqiyoEPNUNTHFBY8446-94-14 07:00:005.1 [facility] DevhtbdLMHLNRUVFC9011-92-12 07:00:00 Test Item Value Reference Range Interpretation Comments MCH (test code = MCH) 29.4 pg 27.0-31.0 [facility] ThfkuugFXOVPTDIRM7639-64-37 07:00:0027.5[facility] HermannHEMATOLOGY 2014-10-30 07:00:0016.3[facility] FfsxfefWMOUMMOJXD1458-98-29 07:00:10155Dmevnwdj RizxdbxFKNAVNGXCH3661-67-20 07:00:008.4[facility] XuskmuxNCSJKSTQLS8927-72-03 07:00:009.1[facility] DycgkjyIEEBWIZQHA7701-65-55 07:00:0033.0[facility] [place] RTDGLNFPRE8841-53-41 07:00:003.09[facility] YvikldpYLEJCUWDBF4756-06-43 07:00:00 11.8[facility] NyytbpmPKOZSVYKCC7147-18-91 07:00:0089.0[facility]annHEMATOLOGY 2014-10-30 07:00:00 Test Item Value Reference Range Interpretation Comments PT (test code = PT) 13.5 s 12.0-14.7 [facility] JhhfwuuJXNVDQZSXD6743-26-46 07:00:001.03[facility]annHEMATOLOGY 2014-10-30 07:00:00 Test Item Value Reference Range Interpretation Comments PTT (test code = PTT) 31.6 s 22.9-35.8 [facility] HermannPARATHYROID MAZHVNE6849-84-38 07:00:001.10[facility] [place] PARATHYROID WFSFPGW0228-67-56 07:00:001.11[facility] HermannCARDIAC ENZYMES 2014-10-30 05:00:0049[facility]annCARDIAC FXUJVAP6794-47-37 05:00:00<0.010 [facility]annCARDIAC SMBVNDJ4493-47-74 05:00:000.02[facility]annHEMATOLOGY 2014-10-30 05:00:000.2[facility] JhdagbmXCYNJBLQHU7479-06-86 05:00:000.3[facility] UjempufHOIYIKLCHW6789-49-72 05:00:000.4[facility] DrifhdxRNYTERJAVW7977-29-75 05:00:003.2[facility] ZfjadngQRVUCULFTZ7600-13-82 05:00:002.3[facility] BCQSIWDTHD2553-79-30 05:00:004.8[facility] DfqwabdVFUEASAHEX1416-14-76 05:00:003.1 [facility] CowobprQATHYHMLQW5002-56-17 05:00:0053.2[facility] HermannHEMATOLOGY 2014-10-30 05:00:0038.5[facility] QuzdzweQZVLMJJKWH2543-60-14 05:00:0014.9[facility] VcwbdxzNUEMRDBBZD9877-52-36 05:00:0032.8[facility] YwnxcyaHBOJACUKUA6130-62-26 05:00:00 Test Item Value Reference Range Interpretation Comments MCH (test code = MCH) 30.3 pg 27.0-31.0 [facility] LxpgxerJNUCOKRZKG2224-95-75 05:00:0092.2[facility] HermannHEMATOLOGY 2014-10-30 05:00:0016.3[facility] AfunmocJVFWMPNPZM6109-43-73 05:00:004.9[facility] FworelmJHJNYLDLZI6467-74-62 05:00:001.61[facility] UjabynrDLKVAWVANP5800-95-75 05:00:006.0[facility] YtcnvvnHUSISSJKOR1008-91-44 05:00:008.1[facility] [place] YVYNQWWEFE6886-37-82 05:00:0073[facility] HermannPARATHYROID MCZWCTJ4581-83-87 05:00:000.63[facility] HermannPARATHYROID XWHGVNU3211-64-61 05:00:000.62[facility]annCARDIAC NJTFROP9442-48-78 23:18:00<0.02[facility]annCARDIAC ENZYMES 2014-10-29 23:18:00<0.010[facility]annCARDIAC LVSDAPX9413-43-35 23:18:0083 [facility]annCARDIAC CJFDSXT0089-11-51 23:18:000.7[facility]annCARDIAC JLMQTSW9845-57-52 23:18:000.6[facility] QgkzvnoJQVWIPEARR5195-18-18 21:45:400053 [facility] PxjzgnhMDGCVSDSVY6951-00-65 21:45:0023.9[facility] HermannCHEM PANEL 2014-10-29 10:42:000.7[facility] HermannCHEM IJSEL8637-08-87 07:00:001.8[facility] HermannCHEM AORIH3661-09-90 07:00:002.8[facility] RbdodqkXYPGKBMZCQSC8914-78-93 07:00:0011.0[facility] ImsnlzgAIABMOETWORN2437-05-66 07:00:0010[facility] NVEYNZFVSDQA8895-99-24 07:00:0083[facility] DmhhkkmDVCBFUTDZLIH8696-89-80 07:00:00 145[facility] LpswlpjIRAYIPTJQKBP5505-40-20 07:00:000.7[facility] XOEREMRRHAIS1834-02-22 07:00:43286Jgosmbip MmujbqaYOABPIBFSNAG7319-43-11 07:00:0024[facility] ZftiubpKBUBKGELZVEO8096-19-79 07:00:007.9[facility] [place] XBNSILGFTZJC3302-49-72 07:00:63164Liasdzjx PtraruaAFLYFESDBBHP5142-29-97 07:00:004.0[facility] QcziocdRYRWQWSISG7529-34-88 07:00:000.1[facility] [place] LSDWSLOKHL1798-36-17 13:36:009.7[facility] FrkljboMIUEUQOUTO1428-90-09 11:00:00 Test Item Value Reference Range Interpretation Comments Pat Od Value (test code = Pat Od 0.046 1 Value) [facility] XoljbhmAKEYNLHOSN4308-15-17 11:00:00 Test Item Value Reference Range Interpretation Comments Pos CO Value (test code = Pos CO 0.392 1 Value) [facility] YobbqdpLAJBQLKIPI7742-64-11 11:00:00Negative (10/28/14 6:00 AM)[facility]annCHEM DJKNV6186-53-37 15:45:001.0[facility] WrbzetzPTVLBXOMPX6081-16-85 11:00:0024.4[facility] HermannTHYROID DXEWX7703-96-07 11:00:000.120[facility] HermannTHYROID ZSJYF9550-01-15 11:00:000.96[facility]annCHEM XQQOK1309-39-71 07:00:001.6[facility] ZvwscfjZRONXYFLTG7416-68-60 07:00:00Normal (10/27/14 2:00 AM) [facility] IsnkuguSRDGDXIEGE9256-03-81 07:00:00Normal (10/27/14 2:00 AM)[facility] VbzmhawCLBVCEBWCX3862-77-57 01:49:0028[facility] FvvudzgFEJFJNYMNW8186-37-24 23:06:00<0.1[facility] JipsqfeXQYIYXFVKE0500-16-92 23:00:00<0.1[facility] HermannBLOOD BANK STBNUYC5111-94-80 21:24:00Negative (10/26/14 4:24 PM)[facility]annCHEM ATRXW4470-13-11 21:14:0070[facility]annCHEM XTBUZ6118-96-56 21:14:000.15[facility] JfbfglkJIJOMIHVKC0431-13-50 21:14:72230Fnhfjbvb [place] ETFMSRLDGW7115-69-37 21:14:000.21[facility] NtyrscbBCHWKKFROJ6478-32-52 21:14:00 29.2[facility] HermannCARDIAC UAOZFQP4853-62-29 18:30:00<0.010[facility] CARDIAC KOVEEVU2058-91-38 18:30:000.02[facility]annCHEM WWTIM7512-81-06 18:30:000.14[facility] NaxvcskCPQTBREDPT1977-00-92 18:30:00Normal (10/26/14 1:30 PM)[facility] HgheunzCCBMZSNERA0228-14-63 18:30:00Normal (10/26/14 1:30 PM)[facility] UsviuovRTIOXDXBPK8672-69-67 18:30:000.0[facility] QcxmjjmWWYIOPWSEV0248-24-43 18:30:001.0[facility]annCHEM CGQNL0795-46-39 11:15:000.1[facility]annCHEM ZXUAA2996-54-39 11:15:000.2[facility]annCHEM TZRKE5760-60-32 11:15:000.1 [facility]annCHEM GFBKM3432-03-33 11:15:0011[facility]annCHEM PANEL 2014-10-26 11:15:49459Rvjazjcl HermannCHEM NJVHU6751-37-65 11:15:002.9[facility]annCHEM VFQHL2502-68-22 11:15:003.2[facility]annCHEM XHGGA8518-38-73 11:15:006.1[facility] HermannCHEM ASOTA7564-83-49 11:15:0023[facility]annCHEM FEICJ4623-39-29 11:15:000.9[facility] FfpoycyQBWXTDDHXJ4473-98-40 11:15:000.1 [facility]annCHEM ZWQRE8143-01-11 09:01:000.05[facility] HermannDRUG SCREEN 2014-10-26 06:40:00Negative (10/26/14 1:40 [...] HermannURINE AND STOOL 2014-10-26 06:40:005[facility] AND EKBGK2950-82-65 06:40:0028[facility] JRHTE0978-85-13 06:40:00Negative (10/26/14 1:40 AM)[facility] MEEFH6510-06-46 06:40:00Negative (10/26/14 1:40 AM)[facility] DDEYA0254-79-46 06:40:00Negative (10/26/14 1:40 AM)[facility] OPQJX6076-18-24 06:40:00<=1.0[facility] STOOL 2014-10-26 06:40:00Negative (10/26/14 1:40 AM)[facility] STOOL 2014-10-26 06:40:001.009[facility] AND SHUPG1376-58-16 06:40:00Slight *ABN*(10/26/14 1:40 AM)[facility] UVULT0366-53-16 06:40:00Yellow (10/26/14 1:40 AM)[facility] APARR6313-53-44 06:40:005.0[facility] BzdwzicKZKGZYNCQM9997-74-04 02:45:00 Test Item Value Reference Range Interpretation Comments Angle (test code = Angle) 76.5 degrees 53.0-72.0 [facility] AsysfgeDHRYZGZYAX0012-07-03 02:45:00 Test Item Value Reference Range Interpretation Comments Max Amp (test code = Max Amp) 74.1 mm 50.0-70.0 [facility] RxxjzytDHUAGSLKBE4905-43-32 02:45:0014.3[facility]annHEMATOLOGY 2014-10-26 02:45:00See Note 23(10/25/14 9:45 PM)[facility] HermannHEMATOLOGY 2014-10-26 02:45:003.4[facility] YjyxwnaBTROMQCKBC0878-54-65 02:45:00 Test Item Value Reference Range Interpretation Comments K-time (test code = K-time) 1.0 min 1.0-3.0 [facility] NuscnuaGPPABQDSBA1090-47-39 02:45:00 Test Item Value Reference Range Interpretation Comments R-time (test code = R-time) 5.1 min 5.0-10.0 [facility] DfnmlfoNESKZIFVME7838-63-15 02:45:000.9[facility] NfablyfSSWROM4129-08-47 02:45:0035[facility] EurvjunYUUYHX5282-11-52 02:45:0060[facility] HermannLIPIDS 2014-10-26 02:45:002.76[facility] NjmjmydRAEIOZ6583-44-17 02:45:0054[facility] SgfuqceNSIPRJ3449-12-22 02:45:13128Mqxyuzao KechwwoPAWITK7836-02-02 02:45:35306 [facility] HermannSPECIAL CAIWYMXNN9024-91-79 02:45:005.7[facility] HermannCHEM DDUMR9233-18-40 09:44:003.7[facility] HermannCHEM MPCLU4435-53-59 09:44:001.7 [facility] QcgxbbxKQAZLQKMSQXL0129-44-11 09:44:0013.6[facility] HermannELECTROLYTES 2013-11-14 09:44:0087[facility] XmcngrtNWSYDJTOBKRP7405-74-83 09:44:0023[facility] MtddkruJIUIBHFSAIVG1700-21-01 09:44:0070[facility] EpekdjvTKNRJXVZTSEN5196-41-13 09:44:000.8[facility] LrdbordPGPRJOMJFDHO8351-79-23 09:44:53493Qekouhkm [place] LJZUJEJEAPYJ8314-30-87 09:44:004.6[facility] ZpwhrwbJJEWUVUZQUGT9699-08-75 09:44:17556Rocmejff IjxcywaAYMIREPUKRUK9838-57-53 09:44:0024[facility] QPNEBGVNRRFV5958-91-64 09:44:008.8[facility] MvhbclwONRUZAZKOF1500-21-13 09:44:00 1.97[facility] TibttjiZPLNQNGUWA0225-78-36 09:44:00 Test Item Value Reference Range Interpretation Comments PT (test code = PT) 22.1 s 12.0-14.7 [facility] CxjknjtUTFKSO5871-27-47 09:44:0093[facility] KzajaqkLUNJXP0695-12-56 09:44:0066[facility] YgviofdJLTCFZ9113-47-93 09:44:00882Frsqqkaw HermannLIPIDS 2013-11-14 09:44:89426Ordfvzsa AhzarwnCFCXCE1485-05-75 09:44:0038[facility] NnuesejVVNDEX2778-39-79 09:44:005.18[facility] HermannDRUG CEONLI9776-43-31 01:09:21Positive *ABN*(11/13/2013 20:09:21 [place])[facility]annDRUG TZGAWZ3327-09-62 01:09:21See Note 5(11/13/2013 20:09:21 [place])[facility]annDR[facility] PRRSAS7998-10-69 01:09:21Negative *NA*(11/13/2013 20:09:21 [place])[facility]annDRUG WYVPSC7586-99-51 01:09:21Positive *ABN*(11/13/2013 20:09:21 [place])[facility]annDR[facility] XDACTF8818-47-40 01:09:21Positive *ABN*(11/13/2013 20:09:21 [place])[facility]annDR[facility] UXEVGC3117-10-49 01:09:21Negative *NA*(11/13/2013 20:09:21 [place]) [facility]annDR[facility] DUYVEV9005-43-80 01:09:21Negative *NA*(11/13/2013 20:09:21 [place])[facility]annDRUG RHCLRK7624-25-94 01:09:21Negative *NA*(11/13/2013 20:09:21 [place])[facility]annDR[facility] RHJMQP8938-66-85 01:09:21Negative *NA*(11/13/2013 20:09:21 [place])[facility]annDR[facility] KZVSXY1150-74-85 01:09:21Negative *NA*(11/13/2013 20:09:21 [place]) [facility] GDLRT5252-42-54 01:09:002[facility]annUR[facility] AND JNIUK7383-58-09 01:09:00Slight *ABN*(11/13/2013 20:09:00 [place]) [facility] SUMBW9193-34-60 01:09:00Yellow *NA*(11/13/2013 20:09:00 [place])[facility] MXPNS8869-16-30 01:09:006.5 [facility] EJZSP7142-99-82 01:09:001.024[facility]UR[facility] AND SIKJZ5035-47-10 01:09:00Negative (11/13/2013 20:09:00 [place])[facility] MEWUV4703-30-25 01:09:00Negative *NA*(11/13/2013 20:09:00 [place] TJIYB5404-30-50 01:09:00Small *ABN*(11/13/2013 20:09:00 [facility] STOOL 2013-11-14 01:09:00Negative (11/13/2013 20:09:00 [facility] XYDKE3928-89-78 01:09:003[facility] ST[facility]OL 2013-11-14 01:09:001[facility] LBMP1131-69-46 01:09:00Negative (11/13/2013 20:09:00 [facility])[facility]ann[facility]ARDIAC GVBZFCT8912-12-12 19:43:00<0.010[facility]annCARDIAC KMHUYNI8322-11-06 19:43:00<0.02 [facility]ARD[facility]AC KVWIYWN4910-68-20 19:43:23481Efbyipgx HermannCARDIAC SVAWDQT2646-82-87 19:43:000.5[facility]annCARDIAC NFWQOAP2788-09-76 19:43:00 0.5[facility]annCHEM BLYIB5416-39-04 19:43:000.1[facility]annCHEM PANEL 2013-11-13 19:43:000.2[facility]annCHEM XQOWL7021-14-41 19:43:000.1[facility]annCHEM XCBGE2808-72-60 19:43:0024[facility]annCHEM HDLST6572-59-04 19:43:000.9[facility]annCHEM AFOSQ7964-51-42 19:43:0040[facility]annCHEM LTJFI0896-45-77 19:43:006.4[facility]annCHEM NWNOI6086-31-35 19:43:003.0 [facility]annCHEM EWMHU9076-91-44 19:43:003.4[facility]annCHEM PANEL 2013-11-13 19:43:14047Ggusjywt HermannSPECIAL TYSQSGUHO2908-93-58 19:43:005.0 [facility]annCARDIAC IRVAGPH8811-61-22 09:29:000.6[facility]annCARDIAC VWSXJZY6953-98-82 09:29:00<0.02[facility]annCARDIAC UDZMQFR7002-24-26 09:29:000.6[facility]annCARDIAC CVNQYPT9127-81-02 09:29:16127Mdmsriwc [place] CHEM AHGAE2580-67-78 09:29:0075[facility]annCHEM TKZTJ7860-27-99 09:29:0013.1 [facility]annCHEM EWHCI0003-67-81 09:29:0026[facility]annCHEM PANEL 2013-11-13 09:29:57267Vkbqipmx HermannCHEM FXDEC0299-47-72 09:29:008.6[facility]annCHEM BZQUM8695-72-77 09:29:000.9[facility]annCHEM VNCSP1881-60-03 09:29:0012[facility]annCHEM VAAWX8118-89-38 09:29:004.1[facility]annCHEM RMKJT0799-25-94 09:29:45566Qdubfguu HermannCHEM BRNRQ2927-26-43 09:29:0081 [facility] OeyotilIATEZSGLHG9972-47-25 09:29:004.1[facility]annHEMATOLOGY 2013-11-13 09:29:001.4[facility] UxfzwnfYQGAFKGJFC6022-65-40 09:29:000.0[facility] YabohwgADLFWYAVWU2149-00-78 09:29:004.7[facility] CxnaeeaKJTOUBCHNK5759-88-64 09:29:006.0[facility] PrzpiaxSJIILNGSQP8035-69-82 09:29:000.5[facility] [place] WDFVBNVQXD0839-50-82 09:29:0041.0[facility] HrjfslqMFMDHYDVID3055-06-49 09:29:00 53.5[facility] BqlblueAVOOTAZPUD0930-89-35 09:29:000.2[facility]annHEMATOLOGY 2013-11-13 09:29:000.0[facility] GuppmkkMXULJWRZYV5808-46-52 09:29:00 Test Item Value Reference Range Interpretation Comments PT (test code = PT) 24.2 s 12.0-14.7 [facility] ItthlivEOOYTACGXU6953-64-66 09:29:002.22[facility]annHEMATOLOGY 2013-11-13 09:29:00 Test Item Value Reference Range Interpretation Comments PTT (test code = PTT) 39.1 s 22.9-35.8 [facility] JveawcqBZABMBNFZB0464-71-76 09:29:54397Nllmvtki HermannHEMATOLOGY 2013-11-13 09:29:0017.1[facility] KwaaoydJZCIHWKKCP8645-34-32 09:29:007.0[facility] YgoybmtCYZHLMOTSS1014-61-77 09:29:0033.7[facility] IfqnnrdRSIIAKXJIK2827-27-42 09:29:00 Test Item Value Reference Range Interpretation Comments MCH (test code = MCH) 28.2 pg 27.0-31.0 [facility] WfeyhgzFMDLJAOZIW4514-61-07 09:29:004.35[facility]annHEMATOLOGY 2013-11-13 09:29:0011.4[facility] BqzrylcVFTWJJIEAW5356-92-81 09:29:0083.7[facility] UktzddbOAVMNKLZON6927-41-37 09:29:0012.3[facility] OnsikjjMUPLBRVIUE2631-44-15 09:29:0036.4[facility] XfnywrzXHYAGJJOJ1448-80-41 07:35:0015.8[facility] [place] JZUFSRBXZ1331-87-88 07:35:33321Fvlweuwa HbpzzraAZWGWKPNA9450-37-92 07:35:0023 [facility] PwpkfitGMAWVOWHF4794-01-89 07:35:65228Yhefdabq HermannCHEMISTRY 2013-05-12 07:35:000.3[facility] QdzdekwVTMMZPNNZ6286-05-01 07:35:007.7[facility] KirxztvEAQQIBXWC5777-44-91 07:35:005[facility] VpuinzeWTBDLQKCX7414-24-93 07:35:00 72[facility] YsnvvzuYANPZGZVG2509-79-45 07:35:67306Xmctzuez HermannCHEMISTRY 2013-05-12 07:35:003.8[facility] VaszqosZDULRAIQVC0279-58-80 07:35:007.8[facility] YrzrlllFVPMPQVVYV6563-61-48 07:35:003.5[facility] KayqzmsTHPIERBQVF8444-30-36 07:35:000.9[facility] BajsnfvPTJBYFBBDH9417-62-02 07:35:000.3[facility] [place] JNHTKOCVLR2314-02-82 07:35:000.1[facility] VppwxkhSDHFIKOGJZ6916-26-61 07:35:007.4 [facility] TbkdqnsLQPYHXCTBK7796-94-86 07:35:000.7[facility] HermannHEMATOLOGY 2013-05-12 07:35:0027.8[facility] DlupxvqPWTOZHHZEQ8998-38-77 07:35:002.7[facility] OjhhyjqIENLILKJTG1823-86-53 07:35:0061.4[facility] NxrbbjkOZZIKEJGLT4847-29-99 07:35:0088.5[facility] ChzylaaUBQMCVFEDX3155-68-01 07:35:0015.2[facility] [place] ZOWINDHKKZ2669-28-69 07:35:0032.5[facility] GdhrsqyPAWMJFZPCX9152-78-92 07:35:00 252[facility] LewtlieKASIEPAWJX2344-56-48 07:35:007.7[facility] HermannHEMATOLOGY 2013-05-12 07:35:0012.8[facility] LflalysEWFNEHFXPO3818-59-43 07:35:003.82[facility] ZngpswsKFIXIAFQAJ1496-91-94 07:35:0011.0[facility] YqraaubHPGXIFDCII2612-01-95 07:35:0033.8[facility] RbuboynRRJRFLEVKX7518-82-10 07:35:00 Test Item Value Reference Range Interpretation Comments MCH (test code = MCH) 28.8 pg 27.0-31.0 [facility] BGNXCFU3536-46-46 11:52:0089[facility] RZVOKHNJC3359-08-15 07:00:00Negative (05/11/2013 02:00:00)[facility] ZAMBCVSLJ5514-23-31 07:00:00Negative (05/11/2013 02:00:00)[facility] IQKFROQXS8610-65-77 07:00:00Negative (05/11/2013 02:00:00)[facility] IKXCCNWNN5090-33-92 07:00:00Negative (05/11/2013 02:00:00)[facility] UTXWOPBTB6421-55-10 07:00:00Positive *ABN*(05/11/2013 02:00:00)[facility] BKDLWQKCH6988-48-59 07:00:00See Note 12(05/11/2013 02:00:00)[facility] OIORMVGTX3037-93-38 07:00:00Negative (05/11/2013 02:00:00)[facility] CEGJAHMYQ1302-92-27 07:00:00Negative (05/11/2013 02:00:00)[facility] HPQMGJRVG2285-99-29 07:00:00Negative (05/11/2013 02:00:00)[facility] QOMGITGBL8536-61-18 07:00:00Negative (05/11/2013 02:00:00)[facility] FXHXOTEPH0491-44-22 07:00:001.09[facility] RivbqqhFHNSGCTQT0033-59-68 07:00:001.07 [facility] FujktwbMMGTODQBG3439-90-50 07:00:002.0[facility] HermannCHEMISTRY 2013-05-11 07:00:002.6[facility] HwrtnvvFEVWMKPTC0336-66-68 07:00:97810Adbhrtgx LgyqrlgPPMVIAKLV8959-77-85 07:00:008.0[facility] DtvxttlEELYREMIT0062-52-43 07:00:0017.7[facility] HzpyoofEHUILZWBU1438-58-44 07:00:007[facility] DLFGJINWM1673-14-84 07:00:0059[facility] QagnjquVFSDLGGHR4751-46-42 07:00:000.6 [facility] CflnobaLXZUXQDYG2108-53-58 07:00:45084Rgygdnfd HermannCHEMISTRY 2013-05-11 07:00:003.7[facility] UamxfuoMTLVQZGRJ1644-83-45 07:00:47819Jzlrkfaw QfkjlvtTADVDTDRH9957-38-44 07:00:0021[facility] ZuxvrawNXVYYBAZO9744-48-90 07:00:00See Note 13(05/11/2013 02:00:00)[facility] ImuqawgUKDZWKAQYO3777-79-37 07:00:0017.2[facility] VqwxkwlAZWYFBWJID5679-93-02 07:00:39751Keqqguli [place] MONORZIJLN7584-97-37 07:00:008.7[facility] JzwcgmoLSGEVUEPIC9553-27-67 07:00:00 88.4[facility] XxbvtsqZKKCGECMPS6107-77-04 07:00:00 Test Item Value Reference Range Interpretation Comments MCH (test code = MCH) 29.4 pg 27.0-31.0 N [facility] GzhcdooBGICMAOPGI5334-49-20 07:00:0015.3[facility]annHEMATOLOGY 2013-05-11 07:00:0033.2[facility] EvzbrxvVVXRTBHWKI1753-50-94 07:00:003.75[facility] VndhttkJZRRQJIQVY2020-03-20 07:00:0011.0[facility] GwfcuhdHFKVSEWLIM8857-49-89 07:00:0033.1[facility] QttmywaVQALEZZIEU3008-09-25 07:00:004.4[facility] [place] PBUSNUZWEJ7883-49-21 07:00:0077.7[facility] YmbiqqcBSEFFELKBM1261-71-69 07:00:00 0.8[facility] ZgxzskwTMZZBCNDXW4582-62-27 07:00:0013.4[facility] HermannHEMATOLOGY 2013-05-11 07:00:002.7[facility] XpdjphpBWDKOMPHKV1123-32-79 07:00:000.8[facility] EgnligiWNTUMRQBCT6349-32-43 07:00:001.5[facility] TaatkwyFBISZYQUIO4727-49-11 07:00:0015.6[facility] HuovtlpTRXQNCHGIQ0530-79-48 07:00:000.1[facility] [place] NLJCIDLMFB5701-79-55 07:00:000.3[facility] HermannBEDSIDE GLUCOSE TESTING 2013-05-11 04:53:0079[facility] EpxngptUOMEDSXSEI3838-28-27 23:12:71114Riyotlas IqysngtITGVOZSAVB5123-81-55 23:12:00Positive (05/10/2013 18:12:00)[facility] YteitlnXGUHHSFJQN7095-42-85 23:12:001.06[facility] NoyyxchQDHQWONPUR1277-26-01 23:12:0070[facility] BkbojccJUOBPASKBT8781-85-45 23:12:00>100 mm/hr *ABN*(05/10/2013 18:12:00)[facility] UuoclbpQMLVCGWDBM8354-13-57 23:12:0035 [facility] MtooshnIVHEAXCQRB8423-10-88 23:12:0068[facility] HermannIMMUNOLOGY 2013-05-10 23:12:001[facility] UacoecoHKKNQTUGPQ0871-69-58 23:12:001[facility] KaenrcoZKCLRORAPS4745-11-55 23:12:005.2[facility] QzjohvhOQIPKRMFBN5212-50-72 23:12:0040[facility] CsrtgfoFHSSWUPDJK9899-94-13 23:12:82895Orbrmdmp [place] HMQKIUKYBQ8521-08-64 23:12:00Negative *NA*(05/10/2013 18:12:00)[facility] VYNZDXKWBV3929-59-75 23:12:00>190.0[facility] HermannBACTERIAL - SEROLOGY 2013-05-10 21:41:00Negative (05/10/2013 16:41:00)[facility]annMICRO MISC - TBEUECXN7513-55-67 21:41:00Negative 1(05/10/2013 16:41:00)[facility] BEDSIDE GLUCOSE IEOWDDB4485-96-37 16:57:0096[facility] EhkbzgoWVIIJWUZCA0073-16-22 14:50:398[facility] OdhikvsUSCXNXUBHS0416-23-86 14:50:39Few /LPF *NA*(05/10/2013 09:50:39)[facility] NknymrzMAXSCAIVDD0125-54-15 14:50:39<1[facility] YAONYKUZPS5667-21-89 14:50:39Few /LPF *NA*(05/10/2013 09:50:39)[facility] [place] MMXONVFTYK6994-62-09 14:50:39<1[facility] PfsgtzhTDRKRCNDEL5826-89-49 14:50:39 Negative (05/10/2013 09:50:39)[facility] AdapaqnRUXBONVLXQ7244-24-16 14:50:39 Negative (05/10/2013 09:50:39)[facility] XxzjknkNQDUJICOGI8086-49-00 14:50:39 Negative (05/10/2013 09:50:39)[facility] IffsdasWKYNWCANSA8712-77-78 14:50:39 Negative mg/dL *NA*(05/10/2013 09:50:39)[facility] AlrkoqbXHKQVMAOTZ5237-77-53 14:50:39Negative *NA*(05/10/2013 09:50:39)[facility] ZbhnvgbGCZVQKIAGN2582-58-68 14:50:391.006[facility] IbmazklEHUWGSJLMF4117-62-14 14:50:39Clear (05/10/2013 09:50:39)[facility] DgnizrqAACCLPPAQO8022-83-75 14:50:39Light Yellow *NA*(05/10/2013 09:50:39)[facility] VrfvdsmRLULRDCNFU3230-18-01 14:50:39Negative mg/dL (05/10/2013 09:50:39)[facility] KxvwpcoLEASYTZDZE2072-08-63 14:50:397.5 [facility] WtdwylfWUGQYSGFJ2070-66-45 07:52:0087[facility] HermannCHEMISTRY 2013-05-10 07:52:97330Gqhskkhm DiqjmczNSIXNMNSO9531-91-15 07:52:0014.emorial DmldrfpKQFATJBEW1804-21-60 07:52:007.8[facility] DrpynpyKEKNEBOJN0177-53-48 07:52:12015Yoicdqof HjmgdyeJIYQSTDUC5119-13-55 07:52:003.[facility] VDHZDDLUH8736-18-12 07:52:0024[facility] AvcnfhfRDWZUGRMS9128-89-25 07:52:000.8 [facility] EopxaolIRWWLJLMS1865-99-01 07:52:007[facility] WoxlgjnVVXFDWRHY9668-07-03 07:52:0051[facility] ByoitozAJEOQPVXK2434-87-50 07:52:001.[facility] [place] ZMMQDXKWX4869-61-67 07:52:002.2[facility] FwtsinlQDBDXSPXVP0245-48-43 07:52:00 Test Item Value Reference Range Interpretation Comments MCH (test code = MCH) 29.1 pg 27.0-31.0 N [facility] TklrnkrTFXMVVAOJE3720-53-26 07:52:0033.8[facility] HermannHEMATOLOGY 2013-05-10 07:52:0089.2[facility] JktlhcuLHENPDWYJP8286-63-37 07:52:0011.0[facility] CbozuybPNUMPTYFYP4619-04-68 07:52:008.5[facility] XgjfmqaICAYVPDSIN2019-18-62 07:52:76042Fslwikig LyaaarnXPKVXYDCXR3133-91-01 07:52:0015.1[facility] [place] URBDJYRPQL2491-01-27 07:52:0032.6[facility] BnfhbluDMHAKSRELD9684-88-03 07:52:00 3.79[facility] ZagmcbzEMNOPNXBKQ1134-31-19 07:52:0022.1[facility] HermannHEMATOLOGY 2013-05-10 07:52:000.1[facility] SixxxyuRXZHQFMFGM0935-08-17 07:52:000.6[facility] XljlgimUZPTOUEFEU4401-83-16 07:52:000.2[facility] SidglawMPUFIABELJ8013-40-97 07:52:0083.0[facility] ChcevbgXYHNVZZPCD0794-21-57 07:52:002.9[facility] VMPZMSFKEW0431-76-14 07:52:0018.3[facility] GmdtjhkAHUCPRYYYS9225-83-13 07:52:00 0.4[facility] TkwbonqAPZDLBRNZR6440-12-58 07:52:001.0[facility] HermannHEMATOLOGY 2013-05-10 07:52:0012.9[facility] SpdvqwpWEIMZBSYBS3750-32-32 07:52:002.7[facility] MgsgbcvHQWSKWNWCK0143-61-15 19:56:0055[facility] RfjnpxfZVEXWILQRB3734-82-48 19:56:89091Kunsgdpr GfwemdyGHAWKAYSNA9637-10-47 19:56:64104Mbqktfwn [place] RYWGYSOFCV2662-03-79 19:56:00Negative (05/09/2013 14:56:00)[facility] HIEYRSLMXU9242-19-06 19:56:00Negative (05/09/2013 14:56:00)[facility] MRNNAFCEAQ2256-46-95 19:56:00Negative (05/09/2013 14:56:00)[facility] QGOHXNXPVK4247-74-36 19:56:00>190.0 mg/L 15(05/09/2013 14:56:00)[facility] NistbewTYWNZVJIFN2371-58-69 19:56:00Negative (05/09/2013 14:56:00)[facility] WzlpllmMLIITUXDQD5449-67-29 19:56:0034[facility] DqqzxkuVMWYSUSHG3277-55-50 16:10:242.3[facility] NfmjekyDFRZVJWLF5214-53-37 16:10:241.4[facility] [place] MYSEATNBJ6633-02-00 16:10:191.8[facility] EoywbmlNCDFQATPJ7701-81-95 10:34:0071 [facility] LrdckmeSQTVHGVHM0170-51-53 10:34:0036[facility] HermannCHEMISTRY 2013-05-09 10:34:38114Odsbppmr AyhweodEMSZVPBQQ0862-44-66 10:34:21633Gxrqtiec AbvevsoKFITEFHHO0349-21-08 10:34:003.67[facility] QzckqscIIBPVBACL7239-00-35 10:34:004.9[facility] PkqbuyyUDXTXTULI9734-49-81 00:11:00Negative *NA*(05/08/2013 19:11:00)[facility] UrqlungPCFTAGQAA5227-96-41 00:11:00See Note 11(05/08/2013 19:11:00)[facility] QvdaulrSSXUEVEQU3855-67-52 00:11:00Positive *ABN*(05/08/2013 19:11:00)[facility] IoqcsxzLGREOTEFH3799-43-26 00:11:00Negative *NA*(05/08/2013 19:11:00)[facility] WsuhurdQFNAIEZJX5377-17-93 00:11:00Negative *NA*(05/08/2013 19:11:00)[facility] RjetuqhWYSWAGHPW7038-12-73 00:11:00Negative *NA*(05/08/2013 19:11:00)[facility] RhlpcksXGLBZYYWG3037-06-43 00:11:00Negative *NA*(05/08/2013 19:11:00)[facility] HvbaqxiTPBPIDYAQ7711-66-85 00:11:00Negative *NA*(05/08/2013 19:11:00)[facility] UvecmljCGZCJGMHN6773-44-39 00:11:0054[facility] HermannCHEMISTRY 2013-05-09 00:11:005.8[facility] GsyxvdxDPYEPOELP1725-21-79 00:11:000.2[facility] UwejvqnYBIEJMORG6143-70-16 00:11:002.8[facility] JlokubkMOAXXCSJV5461-98-16 00:11:0095[facility] HpjgztqWHTPVOJQH4312-15-69 00:11:0029[facility] YVEJKZACZ0764-58-61 00:11:000.9[facility] UwrquajWSVWTGIVZ3214-48-28 00:11:0015 [facility] CgbuwoiGHKDXMAOV0921-90-70 00:11:003.0[facility] HermannURINALYSIS 2013-05-09 00:11:00Slight *ABN*(05/08/2013 19:11:00)[facility]annURINALYSIS 2013-05-09 00:11:001.013[facility] ZaqmdtmBOONMEEPOS3745-27-10 00:11:00Small *ABN*(05/08/2013 19:11:00)[facility] GdcqexnDEDVVHCSRE2634-18-47 00:11:00Negative (05/08/2013 19:11:00)[facility] CrvwmqtMHFBBZKOST3900-29-65 00:11:00Negative (05/08/2013 19:11:00)[facility] BnxwelsTIAVTAZWTB7012-06-82 00:11:005.0[facility] UiwizuqGISKCUZLYL7634-41-02 00:11:0030 mg/dL *ABN*(05/08/2013 19:11:00)[facility] LyqpaltYHLYTRLNQE5496-14-17 00:11:00Negative mg/dL *NA*(05/08/2013 19:11:00) [facility] MmqlutpZCPVAPQRPZ2546-54-04 00:11:00Yellow *NA*(05/08/2013 19:11:00) [facility] AbrivfyBTFCYKBZPS1234-71-39 00:11:00Few /LPF *NA*(05/08/2013 19:11:00) [facility] NpgktmsXITTYCZZTQ6700-29-96 00:11:001[facility]annURINALYSIS 2013-05-09 00:11:00Negative mg/dL *NA*(05/08/2013 19:11:00)[facility] [place] GKTEOKVJOB6653-14-97 00:11:00Negative *NA*(05/08/2013 19:11:00)[facility] YWNXUBKCKC8939-63-34 00:11:00Few /LPF *NA*(05/08/2013 19:11:00)[facility] [place] KRUOLFNEEM6593-82-19 00:11:00Occasional /HPF *NA*(05/08/2013 19:11:00)[facility] HermannBEDSIDE GLUCOSE SKKBNIO5536-87-82 12:28:0087[facility] HermannCHEMISTRY 2012-07-21 08:53:28821Kkmreeqd SvwnbtwZTMCVWDXF9220-31-89 08:53:0024[facility] BryphezQAUTYOZPZ0836-97-00 08:53:09765Grpcwnob IzxrgtxIWYIKPLEZ3026-81-67 08:53:38837Yqtilldm RrmbotjINCSACPBK5407-66-97 08:53:008.08[facility] [place] IXNBPHSBG9054-96-23 08:53:003.2[facility] RdzlksxIORVJWCRI1135-65-16 08:53:001.9 [facility] DenyhhjFCWEYMDGV6958-45-44 08:53:0014.1[facility] HermannCHEMISTRY 2012-07-21 08:53:009[facility] MfnbplvIRDRPEVKH6899-74-57 08:53:0077[facility] ErfkpzxQGSWMNYBR3205-13-98 08:53:41400Hiplmhcg UkoetyxBYKYVEPES4304-86-93 08:53:91875Vndbwjis QfokhvqGPGMOBWPG1524-75-48 08:53:63476Kdvsphca [place] PSBYDTFDE6291-30-72 08:53:004.1[facility] UhybjwrCXAVURNQH6108-78-11 08:53:000.7 [facility] IhlyzoqBQRCKKDZJ0118-96-03 08:53:0027[facility] HermannCHEMISTRY 2012-07-21 08:53:008.0[facility] VjumovlHUIOLTHXS5161-44-59 08:53:005.8[facility] OsdyhzkUFFLIEAIMM8408-37-41 08:53:006.8[facility] RcgbdknTXNXVPBNMO4492-89-92 08:53:63718Ndwmdcbw WqoepooQNKDAPECPQ1385-17-01 08:53:0088.7[facility] [place] BFVVSBQJCP1359-20-62 08:53:00 Test Item Value Reference Range Interpretation Comments MCH (test code = MCH) 29.4 pg 27.0-31.0 N [facility] VrowzlfODMSQSTMFS3772-98-38 08:53:0033.1[facility] HermannHEMATOLOGY 2012-07-21 08:53:0015.0[facility] ZckyhebNKNROLIDTT3283-12-74 08:53:0038.4[facility] WujfytuUTAAYQILDR0673-47-68 08:53:004.34[facility] NysozyjRNGSJHILRU4207-91-91 08:53:0012.7[facility] BvwosmjFQFSGNIUPA7011-18-02 08:53:0011.7[facility] LJDFOOMJRP7952-75-23 08:53:000.5[facility] FwumosbTCGEKRQJTY4622-55-70 08:53:005.9 [facility] HpvtjzmQGJIYIEHLK4614-94-07 08:53:006.0[facility] HermannHEMATOLOGY 2012-07-21 08:53:0041.5[facility] GdrqqygZNTCBPHCAS4028-87-32 08:53:001.9[facility] ZrsqpsfQYHBJLBWJI1517-94-66 08:53:0050.1[facility] WpjdtolFRKJNLWELI0620-21-69 08:53:000.7[facility] UrnlpllLXSCQWVMCH5425-63-53 08:53:004.8[facility] [place] AMCYNODBHI4450-84-49 08:53:000.2[facility] OilpnraQCKLEMEPNY4256-24-31 08:53:000.1 [facility] EMOUVAF6494-76-99 02:50:16995Fuiqoifg [facility] ETIWNDIBTV4893-83-08 01:10:00Yellow *NA*(07/20/2012 19:10:00)[facility] IFPVIWCWKC3071-05-73 01:10:0020 mg/dL *ABN*(07/20/2012 19:10:00)[facility] [place] MXZCTRQGVH2672-54-80 01:10:006.5[facility] OnqtatrRGGDQAKHVO8236-85-15 01:10:00 Negative mg/dL *NA*(07/20/2012 19:10:00)[facility] XgkbgjdTAVJDYXPCY0228-84-90 01:10:001.020[facility] MrkmkuoZCRYSEPLRT9709-32-62 01:10:00Slight *ABN*(07/20/2012 19:10:00)[facility] SladdnlAJAWWDPBPQ4166-72-60 01:10:00Negative (07/20/2012 19:10:00)[facility] FdnkzsrIIUWVZFDPY7868-18-78 01:10:00Trace *ABN*(07/20/2012 19:10:00)[facility] LyghfukLFDFVMDREI4938-95-72 01:10:00Many /LPF *ABN*(07/20/2012 19:10:00)[facility] LxorggtKETYFQNCXR7333-94-92 01:10:00Small *ABN*(07/20/2012 19:10:00)[facility] XigugizJASRUJKGSV5707-72-19 01:10:00Negative *NA*(07/20/2012 19:10:00)[facility] DfblutkKGVEHHPMHS4640-55-49 01:10:00Occasional /HPF *NA*(07/20/2012 19:10:00)[facility] GwrywtoNXJQXLVJGS5701-68-61 01:10:00Few /LPF *NA*(07/20/2012 19:10:00)[facility] FsbzmdiKILSNJPXYX5977-60-49 01:10:00Few /HPF *NA*(07/20/2012 19:10:00)[facility] QwgxfnzDDWVUVBLKN6866-28-10 01:10:001 [facility] VslpokdHZVARFLBGL5609-86-45 01:10:006[facility]annURINALYSIS 2012-07-21 01:10:001[facility] HermannBEDSIDE GLUCOSE AMHLCFB9332-50-54 12:05:0086 [facility] JvwowvoGZDIAKQOO0228-10-98 08:50:0014.7[facility] HermannCHEMISTRY 2012-07-20 08:50:0088[facility] JqdsvmtSCBOFUETQ6081-20-39 08:50:0077[facility] CyzdjyyFSBLGINIC1572-13-76 08:50:0013[facility] CiibhkoVHZTMXLHG3592-28-88 08:50:000.8[facility] CziqwfjFPHRFZQXU0739-84-48 08:50:01872Ddfkqpmw [place] VCDBMFQVW2305-40-76 08:50:003.7[facility] AsrukfhUFKIFNPTY9457-03-74 08:50:0097 [facility] NfygaxoWVEAORZHC0696-48-35 08:50:0029[facility] HermannCHEMISTRY 2012-07-20 08:50:008.3[facility] ZzdubhsPSZPDFUFXM8584-53-22 08:50:000.7[facility] LaedtaqHWPRZNVRIF9080-64-47 08:50:004.3[facility] MmjpcowFQSQYQTNBJ7045-07-42 08:50:006.9[facility] NiuxrdoFOWQWFLPVP3508-53-14 08:50:000.8[facility] DBBIABGFFR7590-40-00 08:50:001.2[facility] QujexhhEETNYOXIXS1278-99-87 08:50:000.1 [facility] ZrodjneRRSKJOPJLL7140-62-43 08:50:000.1[facility]annHEMATOLOGY 2012-07-20 08:50:005.6[facility] UsvbqniCOVDQEHGDQ0194-70-85 08:50:0035.7[facility] SgjwybbAKWVDEFWTO7821-89-08 08:50:0056.7[facility] OeakrwvCYQTOPHELU0658-85-00 08:50:0088.3[facility] OwirgppNTJTFFVGKR6693-60-68 08:50:0041.1[facility] [place] HAEWAEDOVQ4935-05-61 08:50:0013.7[facility] ZkeyetgPSOMPUNZXL5272-49-57 08:50:00 4.66[facility] BlnoizzTUTFHHLLQB6315-12-93 08:50:0012.2[facility] HermannHEMATOLOGY 2012-07-20 08:50:006.8[facility] DnbymsdJALFVLEXMW0051-01-45 08:50:95168Wbryxymp MsausjwOWXDOHFJGJ9682-54-06 08:50:0015.6[facility] EkgzibcGHGCIHSKOS6117-70-84 08:50:0033.3[facility] NyfqolkGGPJHODHGQ4104-37-42 08:50:00 Test Item Value Reference Range Interpretation Comments MCH (test code = MCH) 29.4 pg 27.0-31.0 N [facility] HermannBLOOD BANK DRPBKEM9592-71-87 13:30:00Negative (07/19/2012 07:30:00)[facility] EceswidQLHQOFIQR0365-60-06 13:30:0062[facility] HermannCHEMISTRY 2012-07-19 13:30:0067[facility] UwovqwfQWFKUQZUS5696-17-22 13:30:0030[facility] LzbwdrbPPGZOSUAY3288-27-86 13:30:008.8[facility] YumtqszKUPBPQWWN2825-63-74 13:30:0012[facility] TxwofzyUOZLJEGKP8650-50-12 13:30:001.0[facility] POJHETAOD5645-99-11 13:30:37934Tdtvvpop GsuqlnlOEYPHZBSC8539-69-67 13:30:004.1 [facility] WhhsyokGLGWPPWBK6827-60-98 13:30:0099[facility] HermannCHEMISTRY 2012-07-19 13:30:82150Imwfwniz ZgrbddaCCTROCVYS2498-61-91 13:30:0013.1[facility] LbhbaedCPFZMJAFJ3689-24-84 13:30:00<0.02[facility] EytxwohSHQWFPPTOR5795-59-43 13:30:001+ *ABN*(07/19/2012 07:30:00)[facility] WljbcrcIMIGFMVQVT4301-26-18 13:30:000.0[facility] QbxkztyKVIAYFELLW8879-70-80 13:30:00Slight *ABN*(07/19/2012 07:30:00)[facility] VxlryzePHUPGWCKSI3832-23-86 13:30:00Slight (07/19/2012 07:30:00)[facility] LrvdzvwMEKCIUWVWV4558-67-42 13:30:000.0[facility] [place] VHKEQLTYON4125-63-83 13:30:004.0[facility] IlzolblQROVAMEEVA0260-59-54 13:30:00 30.0[facility] QhptbtyAVKPAGWWIC1983-95-08 13:30:001.0[facility] HermannHEMATOLOGY 2012-07-19 13:30:005.4[facility] KwydyaoBJRSDLQNZI7030-15-05 13:30:0011.8[facility] HosrqvnSTRQUNDKFZ5822-00-67 13:30:000.2[facility] MlmysvhGEKPMWXWMD9863-96-38 13:30:000.7[facility] ZloxgshZXBWATAKGH8757-82-10 13:30:0065.0[facility] [place] UNXYWJSUGL3766-62-12 13:30:000.97[facility] FzokfqtNHZABBQVHX1738-49-84 13:30:00 Test Item Value Reference Range Interpretation Comments PT (test code = PT) 13.1 s 12.0-14.7 N [facility] RoqcrmwZIHEGSHNRS5702-08-38 13:30:004.1[facility] HermannHEMATOLOGY 2012-07-19 13:30:00 Test Item Value Reference Range Interpretation Comments ACT (TEG) (test code = ACT (TEG)) 113 s 86-118 N [facility] AavypmsTGUNOPWAAG4894-19-10 13:30:00 Test Item Value Reference Range Interpretation Comments Split Point (test code = Split Point) 0.6 min [facility] VgciatxRSRGLTFXPD6314-20-19 13:30:00 Test Item Value Reference Range Interpretation Comments Angle (test code = Angle) 82 degrees 64-80 H [facility] VtfoaojWLDURTNZHH6950-59-24 13:30:00 Test Item Value Reference Range Interpretation Comments Max Amp (test code = Max Amp) 81 mm 52-71 H [facility] IaafhtoTBXYPVZVVJ5973-33-71 13:30:00 Test Item Value Reference Range Interpretation Comments K-time (test code = K-time) 0.8 min 0.6-2.3 N [facility] DjmhdemYUFDPXSURW3340-44-86 13:30:0020.9[facility] HermannHEMATOLOGY 2012-07-19 13:30:00 Test Item Value Reference Range Interpretation Comments R-time (test code = R-time) 0.7 min 0.4-0.7 N [facility] FuzuzatSZOAYRNNYY1502-72-02 13:30:00 Test Item Value Reference Range Interpretation Comments PTT (test code = PTT) 32.1 s 22.9-35.8 N [facility] HospitalAukrmdxEXUWBLAYVX6460-54-20 13:30:0015.0[facility]annHEMATOLOGY 2012-07-19 13:30:005.06[facility] ChgypmbCJEZBJRPBX3876-56-13 13:30:0014.8[facility] XgxvnckSGQMAOTQEF0508-87-45 13:30:0033.3[facility] UmhpsyfAXATKEAEPS5728-72-43 13:30:0018.1[facility] KdnmzbjMVKIICCYAE9762-00-55 13:30:0044.9[facility] [place] TDBIXXOSHG4887-54-56 13:30:007.1[facility] KemjzfiYPSHIUNTRX3250-84-84 13:30:00 Test Item Value Reference Range Interpretation Comments MCH (test code = MCH) 29.5 pg 27.0-31.0 N [facility] SroerqmJFDGUXTFBS6137-56-47 13:30:0088.8[facility] HermannHEMATOLOGY 2012-07-19 13:30:88884Tqocvouy Cabrera
--- OUTSIDE RECORDS SUMMARY | 2020-04-29 22:31 | XMS REPORT ---
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 72151540322 10 MG Orally Inactive 1 tabl et Once a day Aspir-[address] [facility] 32398578725 81 MG Orally Active 1 tabl et Once a day Metoprolol [facility] 00858045067 50 MG Orally Active 1 ta blet Tartrate Twice a day with food Lipitor [facility] 76958348789 80 MG Orally Active 1 table t Once a day Ambien [facility] 63707147466 10 MG Orally Active 1 table t Once a day at bedtime as needed Lasix [facility] 84640751855 40 MG Orally Active 0.5 tab let Once a day Clopidogrel [facility] 43730835188 75 MG Orally Active 1 t ablet Bisulfate Once a day Promethazine [facility] 19170432601 25 MG Orally Active TA KE ONE HCl every 12 hrs TABLET BY PRN MOUTH EVERY 12 HOURS NEEDED FOR NAUSEA AND VOMITING Eliquis [facility] 72211621441 5 MG Orally Active as directed Zoloft [facility] 69404555805 100 MG Orally Active 1 tabl et Once a day Symbicort [facility] 72892897565 160-4.5 MCG/ACT Active 2 puffs Inhalation Twice a day Potassium [facility] 58985123574 20 MEQ Orally Active 1 ca psule Chloride Twice a day Results No Known Results Summary Purpose eClinicalWorks Submission
--- OUTSIDE RECORDS SUMMARY | 2020-04-29 22:32 | XMS REPORT | Summary of Care ---
:1965 Author Organization [facility] Address [address] [place] [id number] Care Team Providers Name Role Phone James Burton Primary Care Provider Reason for Visit Reason Comments Refill Request Encounter Details Date Type Department Care Team Description 04/27/2020 Refill [facility] Cardiology- Ludwig Escobar MD Refill Request [place] [address] [place] [address], [address] [facility] [address] [place] [address] [place] [address] [phone] Allergies Active Allergy Reactions Severity Noted Date Comments Prochlorperazine Edisylate Nausea and/or 08/21/2005 Vomiting Divalproex Sodium Anxiety 08/21/2005 Gabapentin Unknown - See 01/02/2008 Blurred vision comments Nsaids (Non-Steroidal Nausea and/or 06/15/2015 Anti-Inflammatory Drug) Vomiting Butorphanol Tartrate Rash 08/21/2005 Ketorolac Tromethamine Rash 08/21/2005 documented as of this encounter (statuses as of 04/28/2020) Medications Medication Sig Dispensed Refills Start Date End Date Status atorvastatin 80 mg Take 1 tablet by 30 tablet 3 09/03/2019 Active tabletIndications: mouth at S/P CABG (coronary bedtime. artery bypass graft), Coronary artery disease involving [place] coronary artery of [place] heart with angina pectoris LORazepam 2 [...] PRN based disease involving on leg swelling [place] coronary and body weight) artery of [place] for up to 30 heart with angina doses. pectoris, NSTEMI (non-ST elevated myocardial infarction) KCL 20 mEq Take 1 tablet by 30 tablet 2 11/07/2019 A ctive tabletIndications: mouth as needed Coronary artery (Recommend to disease involving take KCL if [place] coronary taking lasix.) artery of [place] for up to 30 heart with angina doses. pectoris, NSTEMI (non-ST elevated myocardial infarction) apixaban 5 mg Take 1 tablet by 60 tablet 1 11/12/2019 Active tabletIndications: mouth 2 (two) deep vein times daily. thrombosis Indications: prevention deep vein thrombosis prevention METOPROLOL TAKE ONE TABLET 60 tablet 0 04/28/2020 Ac tive TARTRATE 50 mg BY MOUTH TWICE A tabletIndications: DAY NSTEMI (non-ST elevated myocardial infarction), Bacteremia due to Enterobacter species METOPROLOL TAKE ONE TABLET 60 tablet 0 03/28/2020 Di scontinued TARTRATE 50 mg BY MOUTH TWICE A 0 tabletIndications: DAY NSTEMI (non-ST elevated myocardial infarction), Bacteremia due to Enterobacter species documented as of this encounter (statuses as of 04/28/2020) Active Problems Problem Noted Date Weakness 12/25/2019 Pericardial effusion 10/25/2019 Arm DVT (deep venous thromboembolism), acute, left 04/2020 Chest pain 10/24/2019 NSTEMI (non-ST elevated myocardial infarction) 020 Left sided numbness 09/03/2019 S/P CABG (coronary artery bypass graft) 06/30/2019 Leukocytosis 06/16/2019 Tachycardia 06/15/2019 Coronary artery disease involving [place] coronary herson ry of [place] heart 06/08/2019 with angina pectoris Overview: Added automatically from request for ilan de la cruz [id number] Sepsis 05/03/2019 Obesity (BMI 30-39.9) 05/03/2019 Other [...] as of this encounter (statuses as of 04/28/2020) Immunizations Name Administration Dates Next Due Influenza [...] Treatment Date Type Specialty Care Team Description 05/09/2020 Office Visit Neurology Ji Swartz MD [address] [place] [address]. [place], [place] [phone] Health Maintenance Due Date Last Done Comments [...] of this encounter Implants Implanted Type Area Desk Sergeant Device Shelf Expiration Model / Identifier Date [...] Address T e Group Dates KARMA PARADA [id number] 2015-Benjy [place] [id number] MANAGED MED[place]ID [place], [place] documented as of this encounter Advance Directives Name Relationship Healthcare Agent Communication Relationship Swapnil Whyte Spouse Health Care Agent
--- OUTSIDE RECORDS SUMMARY | 2020-04-29 22:32 | XMS REPORT ---
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[place] heart with stable angina pectoris Problem History [...] End Status Dosage System Date Date Symbicort [facility] 80166907990 160-4.5 MCG/ACT Active 2 puffs Inhalation Twice a day Potassium [facility] 13949068121 20 MEQ Orally Active 1 ca psule Chloride Twice a day - [facility] 47151079106 81 MG Orally Active 1 tabl et Once a day Lipitor [facility] 74927882747 80 MG Orally Active 1 table t Once a day Promethazine [facility] 43016665129 25 MG Orally Active TA KE ONE HCl every 12 hrs TABLET BY PRN MOUTH EVERY 12 HOURS NEEDED FOR NAUSEA AND VOMITING Zoloft [facility] 46413442404 100 MG Orally Active 1 tabl et Once a day Metoprolol [facility] 02442706917 50 MG Orally Active 1 ta blet Tartrate Twice a day with food Clopidogrel [facility] 06443078863 75 MG Orally Active 1 t ablet Bisulfate Once a day Omeprazole [facility] 12434673019 40 MG Orally Mar 28, Active 1 ca psule Once a day 2020 30 minutes before morning meal Ambien [facility] 91856154432 10 MG Orally Active 1 table t Once a day at bedtime as needed Promethazine [facility] 47451150078 25 MG Active TAKE ON E HCl TABLET BY MOUTH EVERY 12 HOURS NEEDED FOR NAUSEA AND VOMITING Abilify [facility] 31986758226 10 MG Orally Inactive 1 tabl et Once a day Wellbutrin ND 0 100 MG Orally Active 1 table t Twice a day Lasix [facility] 96564362105 40 MG Orally Active 0.5 tab let Once a day Eliquis [facility] 02403170740 5 MG Orally Active as directed Results No Known Results Summary Purpose eClinicalWorks Submission
[2020-04-29] MEDS ORDERED: NA CHLORIDE 0.9% 500 ML ONE (22:48)
[2020-04-29 23:58] LABS: Absolute Lymphocytes (CBC) 4.7 K/uL (0.7-4.9); Basophils % 0.9 % (0-1.3); Hematocrit 32.8 % (36.0-45.0); Lymphocytes % 32.9 % (15.3-44.8); RBC Red Blood Cell Count 4.09 M/uL (3.86-4.86)
[2020-04-30 00:02] LABS: Ferritin 107.3 ng/mL (8-388); Potassium 4.1 mmol/L (3.5-5.1)
[2020-04-30 01:43] LABS: Urine Blood NEGATIVE (NEG); Urine Glucose NEGATIVE (NEG); Urine Protein NEGATIVE (NEG); Urine Specific Gravity >1.030 (1.005-1.030)
[2020-04-30 01:58] LABS: Urine Bacteria 20-50 /HPF (<20); Urine Culture Reflex Order NOT NEEDED; Urine Mucus 2+ /HPF (NONE SEEN); Urine RBC NONE SEEN /HPF (NONE SEEN)
[2020-04-30 02:00] LABS: Barbiturates NEGATIVE (NEGATIVE); Benzodiazepines NEGATIVE (NEGATIVE); Cocaine NEGATIVE (NEGATIVE); METHAMPHETAM NEGATIVE (NEGATIVE); Methadone NEGATIVE (NEGATIVE); Opiates POSITIVE (NEGATIVE); Phencyclidine NEGATIVE (NEGATIVE); THC Cannibis NEGATIVE (NEGATIVE)
--- NOTE | 2020-04-30 02:28 | ER ---
Nurse's Notes [facility] Name: Kathy Whyte Age: 54 yrs Sex: Female : 1965 Arrival Date: 04/29/2020 Time: 22:18 Bed 6 Private MD: Diagnosis: Dizziness and giddiness;Near syncope;Malaise and fatigue Presentation: 04/29 22:26 Chief complaint: Patient states: I have symptoms of having low iron, im just feeling sg weak and i nearly passed out prior to arrival. Coronavirus screen: Client denies travel out of the [place] in the last 14 days. At this time, the client does not indicate any symptoms associated with coronavirus-19. Ebola Screen: Patient negative for fever greater than or equal to 101.5 degrees Fahrenheit, and additional compatible Ebola Virus Disease symptoms Patient denies exposure to infectious person. Patient denies travel to an Ebola-affected area in the 21 days before illness onset. No symptoms or risks identified at this time. Initial Sepsis Screen: Does the patient meet any 2 criteria? No. Patient's initial sepsis screen is negative. Does the patient have a suspected source of infection? No. Patient's initial sepsis screen is negative. Risk Assessment: Do you want to hurt yourself or someone else? Patient reports no desire to harm self or others. Onset of symptoms was April 29, 2020. Care prior to arrival: None. Transition of care: patient was not received from another setting of care. 22:26 Acuity: ARI 3 sg Historical: - Allergies: 22:28 Compazine; sg 22:28 Morphine; sg 22:28 Neurontin; sg 22:28 NSAIDS; sg 22:28 Stadol; sg 22:28 Toradol; sg - PMHx: 22:28 Anxiety; CVA; Depression; High Cholesterol; Hypertension; Seizures; sg - PSHx: 22:28 CABG; Cholecystectomy; Heart stents; Appendectomy; Hysterectomy; sg - Immunization history:: Adult Immunizations up to date. - Social history:: Smoking status: Patient denies any tobacco usage or history of. - Family history:: not pertinent. - Hospitalizations: : No recent hospitalization is reported. Screenin:57 Abuse screen: Denies threats or abuse. Denies injuries from another. Nutritional lp1 screening: No deficits noted. Tuberculosis screening: No symptoms or risk factors identified. Fall Risk Total Choi Fall Scale indicates High Risk Score (45 or more points). Fall prevention measures have been instituted. Side Rails Up X 2 Frequent Obs/Assessments Occuring As available patient and family educated on Fall Prevention Program and Strategies. Assessment: 22:35 General: Appears in no apparent distress. Behavior is calm, cooperative. Pain: Denies lp1 pain. Neuro: Level of Consciousness is awake, alert, obeys commands, Oriented to person, place, situation. Cardiovascular: Patient's skin is warm and dry. Respiratory: Respiratory effort is even, unlabored. GI: Abdomen is non-distended. : No signs and/or symptoms were reported regarding the genitourinary system. EENT: No signs and/or symptoms were reported regarding the EENT system. Derm: Skin is pink, warm \T\ dry. Musculoskeletal: No deficits noted. 04/30 00:18 Reassessment: Swapnil Whyte called, updated on POC, informed that ED staff would jb4 call back to inform him of PT disposition. 01:27 Reassessment: Patient appears in no apparent distress at this time. Patient and/or jb4 family updated on plan of care and expected duration. Pain level reassessed. Patient is alert, oriented x 3, equal unlabored respirations, skin warm/dry/pink. PT straight cathed by technician chemical cleaning to obtain urine sample. 02:49 Reassessment: Patient appears in no apparent distress at this time. Patient and/or jb4 family updated on plan of care and expected duration. Pain level reassessed. Patient is alert, oriented x 3, equal unlabored respirations, skin warm/dry/pink. Pt ambulating around the room with steady gait. Verbalized understanding of d/c and follow up instructions. Denies questions or concerns. Assisted to the lobby via wheelchair. Vital Signs: 04/29 22:38 BP 122 / 59; Pulse 68; Resp 12; Temp 99.3(A); Pulse Ox 99% on R/A; Weight 68.95 kg (R); ds4 Height 5 ft. 3 in. (160.02 cm); 04/30 01:00 BP 107 / 40; Pulse 68; Resp 16; Pulse Ox 98% on R/A; jb4 01:30 BP 102 / 55; Pulse 77; Resp 16; Pulse Ox 98% on R/A; jb4 02:00 BP 94 / 81; Pulse 66; Resp 16; Pulse Ox 100% on R/A; jb4 04/29 22:38 Body Mass Index 26.93 (68.95 kg, 160.02 cm) ds4 ED Course: 04/29 22:18 Patient arrived in ED. bp1 22:22 Zackary Mccormick MD is Attending Physician. rn 22:26 Arm band placed on. sg 22:27 Triage completed. sg 22:34 Annette Salazar, RN is Primary Nurse. lp1 22:35 Patient has correct armband on for positive identification. Placed in gown. Bed in low lp1 position. alarm security or surveillance monitor on. Pulse ox on. NIBP on. 22:56 Missed attempt(s): 22 gauge in left forearm. lp1 23:07 CT Head Brain wo Cont In Process Unspecified. EDMS 23:27 Inserted saline lock: 24 gauge in right forearm, using aseptic technique. Blood ds4 collected. 04/30 01:37 Urine Drug Screen Sent. ds4 01:38 Urine Microscopic Only Sent. ds4 01:38 Urine Culture Sent. ds4 01:39 Straight cath inserted, using sterile technique, 16 Fr. Specimen obtained. Returned ds4 clear yellow urine. Patient tolerated well. 02:45 No provider procedures requiring assistance completed. IV discontinued, intact, jb4 bleeding controlled, No redness/swelling at site. Pressure dressing applied. Administered Medications: 04/29 23:27 Drug: NS 0.9% 500 ml Route: IV; Rate: bolus; Site: right forearm; jb4 Outcome: 04/30 02:27 Discharge ordered by . rn 02:45 Discharged to home via wheelchair, with family. jb4 02:45 Condition: stable 02:45 Discharge instructions given to patient, Instructed on discharge instructions, follow up and referral plans. Demonstrated understanding of instructions, follow-up care. 02:50 Patient left the ED. sg Signatures: Dispatcher [employer] EDMS Radames Quinteros RN RN Zackary Mccormick MD MD rn Pena, Laura, RN RN lp1 Pancho Lee ds4 Jayesh Rider RN RN jb4 Kathy Hastings bp1 Corrections: (The following items were deleted from the chart) 04/29 22:30 22:26 Initial Sepsis Screen: Does the patient meet any 2 criteria? HR > 90 bpm. No. sg Patient's initial sepsis screen is negative. Does the patient have a suspected source of infection? No. Patient's initial sepsis screen is negative. sg
--- NOTE | 2020-04-30 02:28 | EDPHYS ---
Physician Documentation [facility] Name: Kathy Whyte Age: 54 yrs Sex: Female : 1965 Arrival Date: 04/29/2020 Time: 22:18 Bed 6 Private MD: ED Physician Zackary Mccormick HPI: 04/29 22:32 This 54 yrs old Female presents to ER via Unassigned with complaints of rn General Weakness, almost Passed Out Prior To Arrival. 22:32 The patient has experienced near-syncope. Onset: The symptoms/episode began/occurred at rn an unknown time. Associated injury: The patient did not suffer any apparent associated injury. Current symptoms: generalized weakness. The patient has experienced similar episodes in the past. Reports generalized weakness, trouble walking, fatigue, not sure when it started, reports worse over last few days, similar to when had low iron in August and improved with iron. No syncope. Reports felt really tired and almost fell asleep in shower. No head injury. No focal neurological complaint. . Historical: - Allergies: 22:28 Compazine; sg 22:28 Morphine; sg 22:28 Neurontin; sg 22:28 NSAIDS; sg 22:28 Stadol; sg 22:28 Toradol; sg - PMHx: 22:28 Anxiety; CVA; Depression; High Cholesterol; Hypertension; Seizures; sg - PSHx: 22:28 CABG; Cholecystectomy; Heart stents; Appendectomy; Hysterectomy; sg - Immunization history:: Adult Immunizations up to date. - Social history:: Smoking status: Patient denies any tobacco usage or history of. - Family history:: not pertinent. - Hospitalizations: : No recent hospitalization is reported. ROS: 22:32 Constitutional: Negative for fever, chills, and weight loss, Eyes: Negative for injury, rn pain, redness, and discharge, Neck: Negative for injury, pain, and swelling, Cardiovascular: Negative for chest pain, palpitations, and edema, Respiratory: Negative for shortness of breath, cough, wheezing, and pleuritic chest pain, Abdomen/GI: Negative for abdominal pain, nausea, vomiting, diarrhea, and constipation, MS/Extremity: Negative for injury and deformity, Skin: Negative for injury, rash, and discoloration, Neuro: Negative for headache, numbness, tingling, and seizure. Exam: 22:32 Constitutional: This is a well developed, well nourished patient who is awake, alert, rn and in no acute distress. Talking to me sitting reclined in bed with arms behind her head in relaxed position. Head/Face: Normocephalic, atraumatic. Eyes: Pupils equal round and reactive to light, extra-ocular motions intact. Lids and lashes normal. Conjunctiva and sclera are non-icteric and not injected. ENT: dry MM Cardiovascular: Regular rate and rhythm. No pulse deficits. Respiratory: Speaking full sentences. No increased work of breathing, no retractions or nasal flaring. Abdomen/GI: Soft, non-tender Skin: Warm, dry MS/ Extremity: Pulses equal, no cyanosis. Neurovascular intact. Full, normal range of motion. Equal circumference. Neuro: Awake and alert, GCS 15, oriented to person, place, time, and situation. Cranial nerves II-XII grossly intact. Motor strength 4/5 in all extremities. Decreased sensation left side of body (baseline). Gait not tested. 23:10 ECG was reviewed by the Attending Physician. rn Vital Signs: 22:38 BP 122 / 59; Pulse 68; Resp 12; Temp 99.3(A); Pulse Ox 99% on R/A; Weight 68.95 kg (R); ds4 Height 5 ft. 3 in. (160.02 cm); 04/30 01:00 BP 107 / 40; Pulse 68; Resp 16; Pulse Ox 98% on R/A; jb4 01:30 BP 102 / 55; Pulse 77; Resp 16; Pulse Ox 98% on R/A; jb4 02:00 BP 94 / 81; Pulse 66; Resp 16; Pulse Ox 100% on R/A; jb4 04/29 22:38 Body Mass Index 26.93 (68.95 kg, 160.02 cm) ds4 MDM: 04/29 22:22 Patient medically screened. rn 04/30 02:25 Differential Diagnosis: vasovagal episode, TIA, CVA, dehydration, anemia, viral rn syndrome, vertigo. Data reviewed: vital signs, nurses notes, lab test result(s), EKG, radiologic studies, CT scan, and as a result, I will discharge patient. Counseling: I had a detailed discussion with the patient and/or guardian regarding: the historical points, exam findings, and any diagnostic results supporting the discharge/admit diagnosis, lab results, radiology results, the need for outpatient follow up, to return to the emergency department if symptoms worsen or persist or if there are any questions or concerns that arise at home. Response to treatment: the patient's symptoms have markedly improved after treatment, and as a result, I will discharge patient. Special discussion: I discussed with the patient/guardian in detail that at this point there is no indication for admission to the hospital. It is understood, however, that if the symptoms persist or worsen the patient needs to return immediately for re-evaluation. Based on the history and exam findings, there is no indication for further emergent testing or inpatient evaluation. I discussed with the patient/guardian the need to see the primary care provider for further evaluation of the symptoms. ED course: Pt improved, no acute findings on ct head/bloodwork/UA, will dc home with return precautions. Reports when this happened back in August no clear etiology either, got better on its own. Tested ambulation and able to ambulate to bathroom, states feels better. Repeat neuro exam still normal. No evidence of vertigo on exam.. 04/29 22:31 Order name: CBC with Diff; Complete Time: 00:30 rn 04/29 22:31 Order name: Basic Metabolic Panel; Complete Time: 00:30 rn 04/29 22:31 Order name: Urine Drug Screen; Complete Time: 02:09 rn 04/29 22:31 Order name: Urine Microscopic Only; Complete Time: 02:00 rn 04/29 22:31 Order name: Urine Culture rn 04/29 22:31 Order name: Iron Level; Complete Time: 00:30 rn 04/29 22:31 Order name: CT Head Brain wo Cont rn 04/29 22:31 Order name: IV Start; Complete Time: 23:27 rn 04/29 22:31 Order name: Urine Dipstick-Ancillary (obtain specimen); Complete Time: 01:37 rn 04/29 22:31 Order name: EKG; Complete Time: 22:32 rn 04/29 22:31 Order name: Procalcitonin; Complete Time: 00:30 rn 04/29 22:34 Order name: ETOH Level; Complete Time: 23:58 rn 04/30 01:38 Order name: Urine Dipstick--Ancillary (enter results); Complete Time: 02:00 ds4 04/29 22:31 Order name: EKG - Nurse/Tech; Complete Time: 22:55 rn EC/12 23:10 Rate is 64 beats/min. Rhythm is regular. QRS [place] is Normal. [place] interval is normal. QT rn interval is normal. No Q waves. T waves are Normal. No ST changes noted. Clinical impression: NSR w/ Non-specific ST/T Changes. Interpreted by me. Reviewed by me. Administered Medications: :27 Drug: NS 0.9% 500 ml Route: IV; Rate: bolus; Site: right forearm; jb4 Disposition: 04/30/20 02:27 Discharged to Home. Impression: Dizziness and giddiness, Near syncope, Malaise and fatigue. - Condition is Stable. - Discharge Instructions: Dizziness, Near-Syncope. - Medication Reconciliation Form, Thank You Letter, Antibiotic Education, Prescription Opioid Use form. - Follow up: Private Physician; When: As needed; Reason: Recheck today's complaints, Re-evaluation by your physician. - Problem is new. - Symptoms have improved. Signatures: Dispatcher [employer] EDMS Radames Quinteros RN RN sg Zackary Mccormick MD MD rn Bryson, James, RN RN jb4 Corrections: (The following items were deleted from the chart) 22:35 22:32 Constitutional: This is a well developed, well nourished patient who is awake, rn alert, and in no acute distress. Head/Face: Normocephalic, atraumatic. Eyes: Pupils equal round and reactive to light, extra-ocular motions intact. Lids and lashes normal. Conjunctiva and sclera are non-icteric and not injected. ENT: dry MM rn 04/30 02:50 02:27 04/30/2020 02:27 Discharged to Home. Impression: Dizziness and giddiness; Near sg syncope; Malaise and fatigue. Condition is Stable. Forms are Medication Reconciliation Form, Thank You Letter, Antibiotic Education, Prescription Opioid Use. Follow up: Private Physician; When: As needed; Reason: Recheck today's complaints, Re-evaluation by your physician. Problem is new. Symptoms have improved. rn
[2020-04-30 03:20] VITALS: TEMP 99.3
[2020-04-30 03:21] VITALS: BP 107/40; O2SAT 98
--- NOTE | 2020-04-30 20:45 | RAD REPORT ---
EXAM DESCRIPTION: Head Brain Wo Cont CLINICAL HISTORY: Weakness, trouble walking COMPARISON: CT head December 01, 2018 TECHNIQUE: Multiple helical axial tomographic images were obtained of the head without intravenous c ontrast. This exam was performed according to our departmental dose-optimization program, which inclu josse automated exposure control, adjustment of the mA and/or kV according to patient size and/or use o f iterative reconstruction technique. FINDINGS: Encephalomalacia changes in the right frontal lobe are again noted suggestive of remote in sult There is no acute intracranial hemorrhage. No mass. No midline shift. No ventriculomegaly. Weber- white matter differentiation is maintained. Paranasal sinuses are clear. Mastoid air cells and middle ear spaces are clear. Orbits and orbital co ntents are unremarkable. Osseous structures are unremarkable. Surrounding soft tissues are unremarkable. IMPRESSION: No acute intracranial process. Electronically signed by: Damian Latham MD 04/29/2020 11:27 PM CDT Due to temporary technical issues with the PACS/Fluency reporting system, reports are being signed by the in house radiologist without review as a courtesy to ensure prompt reporting. The interpreting r adiologist is fully responsible for the content of the report.
== END 2020-04-30 02:50 | disposition home or self-care (01) ==
LOC: ER 22:14
DX: R55 Syncope and collapse (principal); R53.81 Other malaise; R53.83 Other fatigue; I10 Essential (primary) hypertension; Z95.1 Presence of aortocoronary bypass graft; Z95.818 Presence of other cardiac implants and grafts; Z88.1 Allergy status to other antibiotic agents; Z88.5 Allergy status to narcotic agent; Z88.6 Allergy status to analgesic agent; Z88.8 Allergy status to other drugs, medicaments and biological substances
CPT/HCPCS: 93005; 87088; 85025; 87086; 80048; 36415; 80320; 80307 ×8; 82728; 84145; 70450; 51702; 99284; J7040; 81003; 81015

== ENCOUNTER 2020-05-26 19:29 | Emergency (ER) | payer MEDICAID ==
--- OUTSIDE RECORDS SUMMARY | 2020-05-26 19:42 | XMS REPORT | Continuity of Care Document ---
:1965 Author Organization [employer] Care Team Providers Name Role Phone [employer] Unavailable Un available Problems Problem Status Onset Classification Date Comments Sourc e Date Reported STROKE Active 03/09/[address] Center DYSPNEA Active 03/09/[address] ENCEPHALITIS/SEIZUR Active 03/16/20 [facility] ES 15 Medical Center NON-HEMORRAGHIC Active 10/26/19 [facility] [place] STROKE 15 Medical Center ISCHEMIC CVA Active 11/13/19 [facility] [address] s 14 [facility] Center WEAKNESS Active 11/13/[address] Center AMS Active 05/08/[address] CEREBRAL VASCULAR Active 07/19/20 [facility] ACCIDENT 12 Medical Center Anxiety (finding) Resolved Problem 03/14/2019 [facility] Chronic obstructive Active Problem 03/14/2019 [facility] lung disease Medical (disorder) Center Cerebrovascular Active Problem 03/14/2019 [facility] accident (disorder) [facility] Center Depression - motion Active Problem 03/25/2015 [facility]ia (finding) Active Problem 03/14/2019 [facility] Hypertensive Active Problem 03/14/2019 [place] disorder, systemic M edical arterial (disorder) Center Migraine (disorder) Active Problem 03/14/2019 [facility] Anxiety Active Problem 05/14/2013 [facility] COPD Active Problem 05/14/2013 [facility] Depression Active Problem 05/14/2013 [facility] General weakness Active Problem 05/14/2013 [facility] Hypertension Active Problem 05/14/2013 [place] [facility] Center Migraine Active Problem 05/14/2013 [facility] Stroke Active Problem 05/14/2013 [facility] Antiphospholipid Resolved Problem 03/14/2019 [facility] syndrome (disorder) Medical Center Transient ischemic Resolved Problem 03/14/2019 [facility] attack (disorder) Ma dical Center Gastroesophageal Resolved Problem 03/14/2019 [facility] reflux disease Medic al (disorder) Center Hyperlipidemia Resolved Problem 03/14/2019 [facility] [place] (disorder) Medical Center Nausea (finding) Resolved Problem 03/14/2019 [facility] Morbid obesity Active Problem 03/14/2019 [place] (disorder) [facility] CVA Active [facility] ALTERED MENTAL [place] STATUS [facility] MALAISE AND FATIGUE Active [facility] NEC [facility] FEBRILE CONVULSIONS Active [facility] NOS [facility] DYSPNEA, Active [facility] UNSPECIFIED [facility] Medications Medication Details Route Status Patient Ordering Order Source Instructions Provider Date lisinopril 10 mg 10 mg = 1 tab, Active 03/12[facility] oral tablet PO, Daily, # 2019 Medical 30 tab, 2 Center Refill(s) aripiprazole 5 5 mg = 1 tab, Active 03/12[facility] MG Oral Tablet PO, Bedtime, # 2019 Me dical [Abilify] 30 tab, 0 Center Refill(s) buPROPion 200 200 mg = 1 Active [facility] [place] mg/12 hours (SR) tab, PO, BID, 2019 M edical oral tablet, # 60 tab, 0 Center extended release Refill(s) carvedilol 3.125 3.125 mg = 1 Active [facility] mg oral tablet tab, PO, BID, 2019 Med ical # 60 tab, 0 Center Refill(s) atorvastatin 80 80 mg = 1 tab, Active 03/12/ H [place] mg oral tablet PO, Bedtime, # 2019 Me dical 30 tab, 0 Center Refill(s) LORazepam 2 mg 2 mg = 1 tab, Inactive 03/12[facility] oral tablet PO, BID, # 60 2019 Medica l tab, 0 Center Refill(s) cyclobenzaprine 10 mg = 1 tab, Active H [place] 10 mg oral PO, BID, # 30 2019 Medical tablet tab, 0 Center Refill(s) triazolam 0.25 0.5 mg = 2 Active [facility] [place] mg oral tablet tab, PO, 2019 Medical Bedtime, PRN Center Sleep, # 60 tab, 0 Refill(s) Potassium Notes: (Same Inactive [facility] Chloride as: K-Dur 20) 2019 Medical "Do Not Crush" Center Give with food and full glass of water For patients unable to swallow tablet, dissolve in one half glass of water. Allow about 2 minutes for the tablets to disintegrate. Stir before giving to prepare slurry and administer. Please exclude Patient’ s with feeding tube less than 14 Maur[place] (Dobhoff, J-tube etc) and pediatric and patients. Potassium Notes: (Same Inactive [facility] Chloride as: K-Dur 20) 2019 Medical "Do Not Crush" Center Give with food and full glass of water For patients unable to swallow tablet, dissolve in one half glass of water. Allow about 2 minutes for the tablets to disintegrate. Stir before giving to prepare slurry and administer. Please exclude Patient’ s with feeding tube less than 14 [place] (Dobhoff, J-tube etc) and pediatric and patients. potassium Notes: (Same Inactive [facility] chloride as: Potassium 2019 [facility] Chloride) Center Sertraline Notes: (Same No Longer [place] as: Zoloft) Active 2019 Medical [facility] Topamax Notes: (Same No Longer [facility] As: Topamax) Active 2019 Medical "Do Not Crush" Center Potassium 20 mEq, Route: Inactive [place] Chloride PO, ONCE, 2019 Medical Dosing Weight Center 99.318, kg, Start date: 03/11/19 8:46:00 CDT, Stop date: 03/11/19 8:46:00 CDT Calcium Notes: WASTE: Inactive [facility] Gluconate F/P - Sink; E [facility] Tr[facility] Potassium Notes: (Same Inactive [facility] Chloride 1.33 as: Potassium 2019 Medi see MEQ/ML Oral Chloride) Center Solution Melatonin 3 MG Notes: (Same No Longer [facility] Extended Release as: Melatonin) Active 2019 Medical Tablet Center atorvastatin Notes: Same as No Longer [facility] Lipitor Active 2019 Medical [facility] Lisinopril Notes: (Same No Longer [place] as: Prinivil, Active 2019 [facility] Zestril) Center heparin Notes: porcine [place]er [place] heparin Active 2019 [facility] potassium Notes: (Same Inactive [facility] phosphate + as: K 2019 Medical [...] 03/10/19 14:09:00 CDT potassium Notes: (Same Inactive [place] chloride as: KCL) 2019 Medical Infuse no Center faster than 10 mEq/hr if given peripherally. Folic Acid Notes: (Same No Longer [place] as: Folvite) Active 2019 Medical Center Thiamine Notes: (Same No Longer [place] As: Vitamin Active 2019 [facility] B1) Center multivitamin Notes: (Same No [...] Medical Center Albuterol 0.833 Notes: (Same Inactive [facility] MG/ML / as: Duoneb) 2019 Medical Ipratropium Center [place] 0.167 MG/ML Inhalant Solution Potassium Notes: (Same Inactive [facility] Chloride as: KCL) 2019 Medical Infuse no Center faster than 10 mEq/hr if given peripherally. Acetaminophen 100.4 F, No Longer [place] as Start date: Active 2019 Medical 03/09/19 [facility] 22:02:00 CDT, Duration: 30 day, Stop date: 04/08/19 22:01:00 CDT, 0 Ondansetron Notes: [place]er [place] MEDICATION Active 2019 Medical WASTE Center Product Size: 4 mg Product Wasted: ___ mg Dextrose 50% 12.5 gm, 25 [place] Syringe mL, Route: Active 2019 [facility] IVP, Drug Center Form: INJ, Dosing [...] CDT, 0 Iohexol 100 mL, Route: Inactive [facility] IVP, Drug 2019 Medical Form: [facility] Dosing Weight 97.5, kg, ONCALL, STAT, Start date: 03/09/19 19:24:00 CDT, Duration: 1 doses or times, Dose = 2.2ml/kg, Max dose = 100ml -- "To be infused by Radiology Staff ONLY" Iohexol 82 mL, Route: Inactive [facility] IVP, Drug 2019 Medical Form: [facility], [facility] Dosing Weight 97.5, kg, ONCALL, STAT, Start date: 03/09/19 19:06:00 CDT, Duration: 1 doses or times, Dose = 2.2ml/kg, Max dose = 100ml -- "To be infused by Radiology Staff ONLY" heparin additive Notes: Total No Longer [facility] 25,000 unit [12 Concentration Active 2019 Ma dical unit/kg/hr] + = 50 unit/mL; Cent [...] Heparin - one 4,000 unit, 4 Inactive [facility] time bolus for mL, Route: 2019 [...] 30 day, 0 Plavix Notes: (Same Inactive [facility] as: Plavix) 2019 [facility] Magnesium Notes: WASTE: Inactive [facility] Sulfate F/P - Sink; E 2019 [facility] Trash Bin potassium 40 mEq, 2 tab, Inactive [facility] as chloride 20 mEq Route: PO, 2019 Medic al oral tablet, Drug form: Center extended release ERTAB, ONCE, Dosing Weight 97.5, kg, Priority: STAT, Start date: 03/09/19 17:41:00 CDT, Stop date: 03/09/19 17:41:00 CDT, 0 [place] S PH-7.4 Notes: (Same Inactive [facility] ([facility]) IV as: Isolyte S 2019 Medical PH 7.4) Center Acetaminophen Notes: Do not Inactive [facility] exceed 4 2015 Medical gm/day. (Same Center as: Tylenol) rivaroxaban 20 20 mg = 1 tab, Active [place] MG Oral Tablet PO, QPM, # 30 2015 Med ical [Xarelto] tab, 0 Center Refill(s) lisinopril 20 mg 20 mg = 1 tab, Active [facility] oral tablet PO, BID, # 60 2015 Medica l tab, 1 Center Refill(s) valACYclovir 1 g 1 gm = 1 tab, Active [facility] oral tablet PO, Q8H, X 14 2015 Medica l day, # 42 tab, Center 0 Refill(s) atorvastatin 80 80 mg = 1 tab, Active [place] mg oral tablet PO, Bedtime, # 2015 Me dical 30 tab, 1 Center Refill(s) Levetiracetam 1,000 mg = 1 Active [place] 1000 MG Oral tab, PO, BID, 2015 Medic al Tablet # 60 tab, 2 Center Refill(s) Rocephin 1 gm, Route: Inactive [place] IVPB, Drug 2014 Medical form: PDR/INJ, Center [id number], Dosing Weight 110.3, kg, Start date: 03/22/15 8:00:00, Duration: 30 day, Stop date: 04/20/15 8:00:00 Valtrex Notes: (Same No Longer [facility] As: Valtrex) Active 2014 [facility] acyclovir + Notes: (Same [place]er [place] Sodium Chloride as: Zovirax) Active 2014 Med ical 0.9% IV 100 mL MEDICATION Ce nter WASTE Product Size: 500 mg Product Wasted: _0__ mg Magnesium Oxide Notes: (Same Inactive [facility] as: Mag-Ox 2014 Medical 400) Magnesium Center oxide [id number] elemental magnesium Dose=____mg magnesium oxide (___mg elemental magnesium) Potassium Notes: (Same Inactive [facility] Chloride 1.33 as: Potassium 2014 Medi see MEQ/ML Oral Chloride) Center Solution Lipitor Notes: Same [place]er [place] Lipitor Active [facility] Haloperidol Notes: (Same [place] as: Haldol) Active 2014 [facility] [place] Sertraline Notes: (Same No Longer [place] as: Zoloft) Active 2014 [facility] pregabalin Notes: Same as [place] Longer [place] Lyrica Active 2014 [facility] Wellbutrin Notes: (Same No Longer [place] As: Active 2014 [facility] Wellbutrin) Center pantoprazole Notes: Tablet No Longer [place] should not be Active 2014 [facility] chewed or Center crushed. (Same as: Protonix) Keppra Notes: (Same No Longer [place] as:Keppra) Active 2014 [facility] Topamax Notes: (Same No Longer [place] As: Topamax) Active [address] [place] [address] potassium Notes: (Same Inactive [place] chloride as: Potassium 2014 [facility] Chloride) [facility] heparin Notes: porcine No Longer a s heparin Active [address] [place] [address] Keppra + Sodium Notes: Same as No Longer [place] Chloride 0.9% IV Keppra Mix Active 2014 Med ical 100 mL with 100 mL Center NS, LR or D5W MEDICATION WASTE Product Size: 500 mg Product Wasted: ___ mg Lisinopril Notes: (Same No Longer [place] as: Prinivil, Active 2014 [facility] Zestril) [facility] Hydralazine Notes: (Same [place] as: Active 2014 Medical Apresoline) [facility] Push over 5 minutes Labetalol 10 mg, 2 mL, [place]er [place] Route: IVP, Active 2014 Medical Drug form: [facility] INJ, Q15Min, Dosing Weight 110.3, kg, PRN Hypertension, Start date: 03/16/15 22:36:00, Duration: 30 day, Stop date: 04/15/15 22:35:00 Levetiracetam 1,000 mg, Inactive [place] 100 MG/ML Oral Route: [place], 2015 Medica l Solution Drug form: [facility] [Keppra] SOLN, Q12H, Dosing Weight 110.3, kg, [...] Sodium 500 mg, IV, No Longer H [place] 100 mg/mL Q8H, 0 Active 2014 [facility] intravenous Refill(s) [facility] solution haloperidol 2 mg 2 mg = 1 tab, No Longer [place] oral tablet PO, BID, 0 Active 2014 Medical Refill(s) [facility] Folic Acid 1 MG 1 mg = 1 tab, No Longer [place] Oral Tablet PO, Daily, # Active 2015 [...] 0 Refill(s) NS w/K20 Special No Longer [place] Instructions: Active 2014 Medical 70 mls/hr Center atorvastatin 80 80 mg = 1 tab, No Longer [place] mg oral tablet PO, Bedtime, # Active 2015 Me dical 30 tab, 0 Center Refill(s) topiramate 50 MG 50 mg = 1 tab, Active [place] Oral Tablet PO, BID, # 60 2015 [...] 2 mg = 1 cap, No Longer [place] oral capsule PO, BID, 0 Active 2014 Medical Refill(s) Center acyclovir 500 mg IV, Q8H, 0 No Longer [place] intravenous Refill(s) Active 2014 Medical injection Center Methocarbamol 250 mg, PO, No Longer [place] BID, 0 Active 2014 Medical Refill(s) Center Acetaminophen 650 mg, PO, No Longer [place] PRN, 0 Active 2014 Medical Refill(s) Center lisinopril 20 mg 20 mg = 1 tab, No Longer [place] oral tablet PO, BID, 0 Active 2014 Medical Refill(s) Center pregabalin 50 mg 50 mg = 1 cap, Active [facility] oral capsule PO, BID, # 60 2015 Medic al cap, 1 Center Refill(s) cefTRIAXone 1 g 1 gm, IV, No Longer [place] injection Q12H, # 10 ea, Active 2014 Medical 0 Refill(s) Center Levofloxacin 500 mg, Route: No Longer [place] PO, Drug form: Active 2014 Medical TAB, [...] Medi see MG Oral Tablet Drug form: [facility] [Ultram] TAB, Q8H, Dosing Weight 110.3, kg, [...] [place] As: Active 2014 Medical Wellbutrin) [facility] Topamax Notes: (Same No Longer [place] As: Topamax) Active 2014 Medical "Do Not Crush" Center sennosides, [facility] Notes: (Same No Longer H [place] as: [...] 2014 Medical Center Flumazenil Notes: (Same Inactive [facility] as: Romazicon) 2015 Medical Center Hydromorphone Notes: Same [place] as: Dilaudid 2014 [facility] Center Metoprolol Notes: (Same Inactive [place] [...] IV SET ONLY potassium Notes: (Same Inactive [facility] chloride as: Potassium 2014 Medical Chloride) [...] date: 10/28/14 18:32:00 Vancomycin 2001 mg: Inactive [facility] infuse over 2015 Medical 2.5 hours Center Vancomycin FOR IV SET ONLY Vancomycin 2001 mg: No Longer [place] infuse over Active 2014 Medical 2.5 hours Center Vancomycin FOR IV SET ONLY Ativan 2 mg, Route: Inactive Oxana IV, ONCE, 2015 Medical Dosing Weight Center 110.3, kg, Start date: 10/28/14 13:49:00, Stop date: 10/28/14 13:49:00 sodium phosphate Notes: (Same Inactive [facility] + Sodium as: Na 2014 Medical Chloride 0.9% IV Phosphate, Na C enter 250 mL PO4) potassium Notes: (Same Inactive [facility] chloride as: Potassium 2014 Medical Chloride) Center magnesium 2 gm, 50 mL, Inactive [place] sulfate Route: IVPB2014 Medical Drug form: Center INJ, ONCE, Start date: 10/28/14 4:30:00, Stop date: 10/28/14 4:30:00 docusate sodium Notes: (Same No Longer [facility] 150 mg/15 mL as: Colace) Active 2014 Medical oral liquid Center chlorhexidine Notes: (Same No Longer [facility] gluconate 1.2 As: Peridex) Active 2014 [...] [place] MG/ML Injectable Diprivan - Active 2014 [facility] see Suspension change bottle Center & tubing every 12 hr Per state nursing law propofol can only be given by a nurse if patient is intubated or being intubated (unless the nurse is a GIS SPECIALIST). Same as: Diprivan sodium Notes: (sodium Inactive [place] bicarbonate 75 bicarb 8.4% (1 2014 Me [...] being intubated (unless the nurse is a GIS SPECIALIST). Michelle Notes: Same No Longer [place] as: Keppra Active [address] [place] [address] Vancomycin 2001 mg: No Longer [place] infuse over Active 2014 [facility] 2.5 hours [facility] Vancomycin FOR IV SET ONLY heparin additive 500 mL, Rate: No Longer [place] 25,000 unit [14 21.16 ml/hr, Active 2014 Med ical unit/kg/hr] + Infuse over: Cente r Premix Diluent 23.6 hr, Dextrose 5% 500 Route: IV, mL Dosing Weight 75.56 kg, Total Volume: 500 mL, Start date: 10/26/14 20:00:00, Duration: 30 day, Stop date: 11/25/14 19:59:00 hydrocortisone Notes: (Same No Longer [place] 100 mg injection as: Active 2014 [facility] Center physiological Notes: Total No Longer [place] irrigating ingredients in Active 2014 Medica l solution bag Na Center 140meq/L; K 4meq/L; HCO 35meq/L; Ca 3meq/L; Magnesium 1meq/L; CL 113meq/L; Glucose 100mg/dL; "Break seal Between compartments and mix before hanging" sennosides, [facility] Notes: (Same No Longer [facility] as: Senokot) Active 2014 Medical [place] Lipitor Notes: Same as No Longer [place] Lipitor Active 2014 Medical Center Xarelto Notes: (Same Inactive [place] as: Xarelto) 2015 Medical Administer Center with food chlorhexidine Notes: (Same No Longer [place] gluconate 1.2 As: Peridex) Active 2014 Medic al MG/ML Mouthwash Center nxstage pureflow 1,000 mL, Inactive [place] [id number] 5000ml Route: 2014 Medical SOLN 1000 mL DIALYSIS, Center Irrigation Site: Vein, femoral, Rt, 3,000 ml/hr, 0.3 hr, Total Volume: 1,000, "For Irrigation Only", Start date: 10/26/14 16:50:00, Duration: 1 day, Stop date: 10/27/14 16:49:00 Ketamine Notes: Per No Longer [facility] Active 2014 [facility] ketamine Center can only be given by a nurse if patient is intubated or being intubated (unless the nurse is a GIS SPECIALIST). lidocaine 1% Notes: (Same No Longer [place] as: Xylocaine) Active 2014 [facility] Ketamine Notes: Per Inactive [address] law ketamine Center can only be given by a nurse if patient is intubated or being intubated (unless the nurse is a GIS SPECIALIST). Calcium Chloride 1,000 mg, 10 Inactive [place] mL, Route: 2014 Medical IVPB, ONCE, Center Dosing Weight 110.3, kg, Start date: 10/26/14 15:40:00, Stop date: 10/26/14 15:40:00 Iohexol Special Inactive [place] Instructions: 2015 Medical Dose = Center 2.2ml/kg, Max dose = 100ml -- "To be infused by Radiology Staff ONLY" Ketamine Notes: Total Inactive [place] Concentration 2015 Medical = 1mg/ml Total Center Volume = 100ml Infusion Rate= Begin Infusion at an initial rate of 0.1mg/kg/hr to a Maximum Rate of 0.25mg/kg/hr Please place a Med Request 2 hours before the next dose is needed. EPINEPHrine 4 mg 250 mL, Rate: No Longer [place] + Sodium Titrate, Active 2014 Medical Chloride 0.9% Dosing Weight Cent er (titrate) 250 mL 110.3, kg, Route: IV, Total Volume: 254, Start Date: 10/26/14 13:54:00, Duration: 30 day, Stop date: 11/25/14 13:53:00, Replace Every: 24 hr Etomidate Notes: (Same Inactive [facility] as: Amidate). 2015 Medical Per state Center nursing law etomidate can only be given by a nurse if patient is intubated or being intubated (unless the nurse is a GIS SPECIALIST). sodium Notes: (sodium Inactive [place] bicarbonate 8.4% bicarb 8.4% (1 2014 Medical mEq/ml) 50 ml Center syringe) Succinylcholine Notes: Same Inactive [facility] as: Anectine 2014 [facility] Fentanyl 1,000 No Longer [facility] microgram, 20 Active 2014 Medical mL, Rate: Center Titrate as directed, Dosing Weight 110.3, kg, Route: IV, Total Volume: 20 mL, Start Date: 10/26/14 13:52:00, Duration: 30 day, Stop date: 11/25/14 13:51:00, Replace Every: 24 hr Midazolam 1 Notes: (Same [place] MG/ML Injectable as: Versed) Active 2014 [facility] ical Solution Center Insulin regular Notes: (Same No Longer [facility] 100 unit + as: Humulin R Active 2014 [facility] Sodium Chloride and NovoLIN R) C enter 0.9% (titrate) (Do not 99 mL shake) Dextrose 50% 6.25 gm, 12.5 No Longer [place] Syringe mL, Route: Active 2014 [facility] IVP, Drug Center Form: INJ, Dosing Weight 110.3, kg, PRN, PRN Abnormal Lab Result, Start date: 10/26/14 13:38:00, Duration: 30 day, Stop date: 11/25/14 13:37:00 nxstage pureflow Notes: Total Inactive [facility] [id number] 5000ml ingredients in 2014 Me dical [...] phosphate 15 mmol, 5 mL, No Longer [place] + Sodium Route: IVPB, Active 2014 Medical Chloride 0.9% IV PRN, Dosing Antionette ter 250 mL Weight 110.3, kg, PRN Abnormal Lab Result, Via central line, Start date: 10/26/14 13:20:00, Duration: 30 day, Stop date: 11/25/14 13:19:00 sodium Notes: (sodium No Longer [facility] s bicarbonate 75 bicarb 8.4% (1 Active 2014 Me dical mEq + Sodium mEq/ml) 50 ml Cente r Chloride 0.45% VL) IV 925 mL vasopressin 80 Notes: (Same No Longer [place] unit + Sodium As: Pitressin) Active 2014 [facility] ical Chloride 0.9% Center (titrate) 246 mL Flagyl Notes: (Same No Longer [facility] as: Flagyl) Active 2014 [facility] Avoid alcohol. Center cefepime Notes: (Same No Longer [facility] As: Maxipime) Active 2014 Medical Center Vancomycin 2001 mg: Inactive [place] infuse over 2015 [facility] 2.5 hours [facility] Vancomycin FOR IV SET ONLY PlasmaLyte A 2,000 mL, [place]er [place] PH-7.4 2,000 mL Rate: 2,000 Active 2014 [facility] see ml/hr, Infuse Center over: 1 hr, Route: IV, Dosing Weight 110.3 kg, Total Volume: 2,000, Start date: 10/26/14 9:06:00, Duration: 30 day, Stop date: 11/25/14 9:05:00 Wellbutrin Notes: (Same No Longer [place] as As: Active 2014 Medical Wellbutrin) Center Haldol Notes: (Same Inactive [facility] as: Haldol) 2014 Medical Center Topamax Notes: (Same Inactive [facility] As: Topamax) 2015 Medical "Do Not [...] capsular polysacchar influenza virus Notes: (Same Inactive [facility] vaccine, as: Fluzone 2014 Medical inactivated Quadrivalent) Center Levophed Notes: Not for No Longer [place] as Bitartrate 32 mg direct Active 2014 Medical + Sodium administration Center Chloride 0.9% - DILUTE. (titrate) 218 mL Protect from light. (Same as:Levophed). Administer by either central venous catheter or peripherally-i nserted central catheter (PICC) line. Albumin Human, Notes: Lot #: Inactive [facility] 250 MG/ML 2014 Medi see Injectable Mfg: Center Solution (Same as: Plasbumin-25) "blood product derivative" Protonix Notes: (Same Inactive [facility] as: Protonix) 2014 [facility] Albumin Human, Notes: LOT#: Inactive [facility] 50 MG/ML 2014 Medic al Injectable Mfg: Center Solution (Same as: Albuminar) "blood product derivative&quo t; Versed Notes: (Same No Longer [facility] as: Versed) Active 2014 [facility] magnesium 2 gm, 50 mL, Inactive [...] 10/26/14 0:44:00 Reglan Notes: (Same No Longer [facility] as: Reglan) Active 2014 [facility] Valproic Acid 1,000 mg, Inactive [place] [...] 10/26/14 0:15:00 Reglan 10 mg, Route: Inactive [facility] IVP, Drug 2014 Medical form: INJ, [...] BID, On Hold [place] 0 Refill(s) 2014 [facility] Bupropion 200 mg = 2 On Hold [place] Hydrochloride tab, PO, BID, 2014 Medi see 100 MG Oral 0 Refill(s) [facility] Tablet [Wellbutrin] tramadol 50 mg = 1 [...] 0 Active 2014 Medica l [Xarelto] Refill(s) [place] Esomeprazole 40 = 1 tab, PO, Inactive [place] MG Enteric Daily, 0 2014 Medical Coated Capsule Refill(s) [facility] [Nexium] 120 ACTUAT 1 spray, Inactive [place] Triamcinolone NASAL, Daily, 2014 [facility] Acetonide 0.055 # 17 gm, 0 Cente r MG/ACTUAT Nasal Refill(s) Inhaler [Nasacort] atorvastatin 80 80 mg = 1 tab, Active H [place] MG Oral Tablet PO, Daily, 0 2014 [facility] see [Lipitor] Refill(s) [facility] Haldol 2 mg, PO, BID, On Hold [place] 0 Refill(s) 2014 [facility] Acetaminophen Notes: [place] acetaminophen Active 2014 Medical = 4000mg/day [facility] (4 gm/day). (Same as: Tylenol) Sodium Chloride [...] [place] 0.9% as: BD Active 2014 [facility] Posiflush) [facility] Ondansetron Notes: (Same No Longer [place] as: Zofran) Active [address] [place] [address] NS 1,000 mL 1,000 mL, No Longer [place] Rate: 100 Active 2014 Medical ml/hr, Infuse Center over: 10 hr, Route: IV, Dosing Weight 96.364 kg, Total Volume: 1,000, Start date: 10/25/14 21:30:00, Duration: 30 day, Stop date: 11/24/14 21:29:00 norepinephrine Notes: Not for No Longer [place] 16 mg + Sodium direct Active 2014 Medical Chloride 0.9% administration Anitonette ter (titrate) 234 mL - DILUTE. Protect from light. (Same as:Levophed). Administer by either central venous catheter or peripherally-i nserted central catheter (PICC) line. Regular Insulin, 60 units) No Longer H [place] Human 100 UNT/ML Stable for 28 Active 2014 edical Injectable days at room Center Solution temperature Expires in days from Date Dextrose 50% 25 gm, 50 mL, No Longer [place] Syringe Route: IVP, Active 2014 Medical Drug Form: Center INJ, Dosing Weight 96.364, kg, PRN, PRN Abnormal Lab Result, Start date: 10/25/14 21:28:00, Duration: 30 day, Stop date: 11/24/14 21:27:00 Coumadin 2 mg, 1 tab, Inactive [facility] Route: PO, 2013 Medical Drug form: Center TAB, Q5PM, Start date: 11/14/13 17:00:00, Duration: 1 doses or times, Stop date: 11/14/13 17:00:00Nurse to ensure documentation of patient education per anticoagulatio n policy. Avoid large intake of vitamin-K containing foods diet. (Same As: Coumadin) Warfarin 5 mg, 1 tab, Inactive [facility] Route: PO, 2013 Medical Drug form: [...] Levetiracetam 500 mg, 1 tab, No Longer 11/14[facility] [place] 500 MG Oral Route: PO, Active 2013 Medical Tablet [Keppra] Drug form: Cente r TAB, Q12H, Dosing Weight 96.364, kg, Start date: 11/14/13 13:00:00, Duration: 30 day, Stop date: 12/14/13 9:00:00(Same as:Keppra) pneumococcal 0.5 ml, Route: Inactive 11/14[facility] Oxana capsular IM, Drug Form: 2013 [...] Route: PO, Active 2013 Medical Drug form: [place] CAP, Bedtime, Dosing Weight 96.364, kg, PRN Insomnia, Start date: 11/13/13 22:09:00, Duration: 1 day, Stop date: 11/14/13 22:08:00(Same as: Benadryl) atorvastatin 80 mg, 2 tab, No Longer [place] Route: PO, Active 2013 Medical Drug form: [facility] TAB, Bedtime, Dosing Weight 96.364, kg, Start date: 11/13/13 21:00:00, Duration: 30 day, Stop date: 12/12/13 21:00:00(Same as: Lipitor) Coumadin 5 mg, 1 tab, Inactive [place] Route: PO2013 Medical Drug form: [facility] TAB, Q5PM, Dosing Weight 96.364, kg, Start date: 11/13/13 17:00:00, Duration: 1 doses or times, Stop date: 11/13/13 17:00:00Nurse to ensure documentation of patient education per anticoagulatio n policy. Avoid large intake of vitamin-K containing foods diet. (Same As: Coumadin) Ativan 0.5 mg, 1 tab, Inactive [place] Route: PO2013 Medical Drug form: [facility] TAB, ONCE, Dosing Weight 96.364, kg, Start date: 11/13/13 16:00:00, Stop date: 11/13/13 16:00:00(Same as: Ativan) Ativan 0.5 mg, 1 tab, Inactive [facility] Route: PO2013 Medical Drug form: [facility] TAB, ONCE, Dosing Weight 96.364, kg, Start date: 11/13/13 15:08:00, Stop date: 11/13/13 15:08:00(Same as: Ativan) atorvastatin 80 80 mg = 1 tab, No Longer [place] MG Oral Tablet PO, Bedtime Active 2013 Medic al [Lipitor] [place] Thiothixene 5 MG 5 mg = 1 cap, Active H [place] Oral Capsule PO, BID, # 60 2013 Medic al [Navane] cap [facility] haloperidol 5 mg 5 mg = 1 tab, Active H [place] oral tablet PO, BID, # 60 2013 Medica l tab Center Sertraline 100 100 mg = 1 Active [place] as MG Oral Tablet tab, PO, BID, 2013 Med ical [Zoloft] # 60 tab [place] 12 HR Bupropion 200 mg = 1 [place] Hydrochloride tab, PO, BID, 2013 Medi see 200 MG Extended # 60 tab Center Release Tablet [Wellbutrin] lisinopril 40 mg 40 mg = 1 tab, Active [facility] oral tablet PO, Daily 2013 [facility] verapamil 300 300 mg = 1 Active [place] mg/24 hours oral cap, PO, Daily 2013 [facility] Saline Flush 5 ml, Route: No Longer [place] 0.9% IVP, Drug Active 2013 Medical Form: INJ, [facility] Dosing Weight 96.364, kg, Q12H, Start date: 11/13/13 9:00:00, Duration: 30 day, Stop date: 12/12/13 21:00:00(Same as: BD Posiflush) Aspirin 325 MG 325 mg, 1 tab, Inactive [facility] Enteric Coated Route: PO, 2013 Medica l Tablet Drug form: [facility] ECTAB, Daily, Dosing Weight 96.364, kg, Start date: 11/13/13 9:00:00, Duration: 30 day, Stop date: 12/12/13 9:00:00(Do Not Crush) Do not crush or chew. Versed 1 mg, 1 mL, No Longer [facility] Route: IV, Active 2013 Medical Drug form: [facility] INJ, PRN, Dosing Weight 96.364, kg, PRN Other -See Comment, Start date: 11/13/13 7:06:00, Duration: 30 day, Stop date: 12/13/13 7:05:00(Same as: Versed) Iohexol 85 mL, Route: Inactive [facility] IVP, Drug 2013 Medical [facility] Dosing Weight 96.364, kg, ONCALL, STAT, Start date: 11/13/13 6:04:00, Duration: 1 doses or times, Stop date: 11/14/13 0:00:00, Dose = 2.2ml/kg, Max dose = 100ml -- "To be infused by Radiology Staff ONLY"(Same as:Omnipaque 350). Enoxaparin 40 mg, 0.4 mL, Inactive [place] Route: SUB-Q, 2013 Medical Drug form: Center INJ, [id number], Dosing Weight 96.364, kg, Start date: 11/13/13 [...] Acetaminophen 650 mg, 2 tab, No Longer [facility] Route: PO, Active 2013 Medical Drug form: [...] 12/13/13 5:14:00 Coumadin 7 mg, PO, Active [place] Daily, 0 2013 Medical Refill(s) Center Saline Flush 5 mL, Route: No Longer [place] 0.9% IVP, Drug Active 2013 Medical Form: INJ, Center Dosing Weight 96.364, kg, PRN, PRN Line Flush, Start date: 11/13/13 3:58:00, Duration: 30 day, Stop date: 12/13/13 3:57:00preserv ative free. Navane 2 mg oral 2 mg, PO, BID, PO Active [facility] 05/12[facility] [place] capsule 60 tab, 2012 Medical Substitution Center Allowed, CAP Zoloft 100 mg 100 mg, 1 tab, PO Active [facility] 05/12[facility] [place] oral tablet PO, BID, 60 2012 Medical tab, Center Substitution Allowed, TAB haloperidol 2 mg 2 mg, 1 tab, PO Active [facility] 05/12[facility] [place] oral tablet PO, BID, 60 2012 Medical tab, Center Substitution Allowed Wellbutrin 100 100 mg, 1 tab, PO Active [facility] 05/12[facility] [place] mg oral tablet PO, BID, 60 2012 Medic al tab, Center Substitution Allowed, TAB Levaquin 750 mg 750 mg, 1 tab, PO Active [facility] 05/12[facility] H [place] oral tablet PO, Q24H, 7 2012 Medical tab, Center Substitution Allowed, TAB Flagyl ER 750 mg 750 mg, 1 tab, PO No Longer [facility] 05/12[facility] oral tablet, PO, Daily, 7 Active 2012 Medica l extended release tab, [facility] Substitution Allowed, ERTAB metoprolol 50 mg, 1 tab, PO No Longer [facility] 05/12[facility] [place] tartrate Route: PO, Active 2012 Medical Drug form: [place] TAB, Q12H, Dosing Weight 98.182, kg, Start date: 05/11/13 21:00:00, Duration: 30 day, Stop date: 06/10/13 9:00:00 Multiple 1 cap, PO, PO Active [facility] 05/11[facility] [place] Vitamins oral Daily, 30 cap, 2012 Med ical capsule Substitution Center Allowed, Maintenance, CAP atorvastatin 80 80 mg, 1 tab, PO Active [facility] 05/11[facility] [place] mg oral tablet PO, Bedtime, 2012 Medi see 30 tab, Center Substitution Allowed, TAB aspirin 81 mg 81 mg, 1 tab, PO Active [facility] 05/11[facility] [place] tablet, enteric PO, Daily, 30 2012 Me dical coated tab, Center Substitution Allowed, ECTAB metoprolol 25 mg, 1 tab, PO No Longer [facility] [place] tartrate Route: PO, Active 2012 Medical Drug form: [facility] TAB, ONCE, Dosing Weight 98.182, kg, Priority: STAT, Start date: 05/11/13 8:38:00, Stop date: 05/11/13 8:38:00 Flagyl 500 mg, 100 IVPB No Longer [facility] mL, Route: Active 2012 Medical IVPB, Drug Center form: INJ, [id number], Dosing Weight 98.182, kg, Start date: 05/10/13 18:00:00, Duration: 30 day, Stop date: 06/09/13 10:00:00 azithromycin + 500 mg, Route: IVPB No Longer [facility] [place] Sodium Chloride IVPB, [id number], Active 2012 M edical 0.9% IV 250 mL Dosing Weight [address] ter 98.182, kg, Start date: 05/10/13 18:00:00, Duration: 30 day, Stop date: 06/08/13 18:00:00 Neutra-Phos 1 pkt, Route: PO No Longer [facility] [place] PO, Drug Form: Active 2012 Medical PDR/REC, Center Dosing Weight 98.182, kg, ONCE, Start date: 05/10/13 17:45:00, Stop date: 05/10/13 17:45:00 magnesium 1 gm, Route: IVPB No Longer [facility] [place] sulfate IVPB, Drug Active 2012 Medical form: INJ, Center ONCE, Dosing Weight 98.182, kg, Start date: 05/10/13 17:45:00, Stop date: 05/10/13 17:45:00 heparin 5,000 unit, 1 SUB-Q No Longer [facility] mL, Route: Active 2012 Medical SUB-Q, Drug Center form: INJ, Q8H, Dosing Weight 98.182, kg, Start date: 05/10/13 16:00:00, Duration: 30 day, Stop date: 06/09/13 8:00:00 aspirin 81 mg, 1 tab, PO No Longer [facility] Route: PO, Active 2012 Medical Drug form: Center ECTAB, Daily, Dosing Weight 98.182, kg, Start date: 05/10/13 13:00:00, Duration: 30 day, Stop date: 06/09/13 9:00:00 azithromycin 250 250 mg, 1 tab, PO No Longer [facility] mg oral tablet Route: PO, Active 2012 Medica l Drug form: Center TAB, [id number], Dosing Weight 98.182, kg, Start date: 05/10/13 8:00:00, Duration: 4 doses or times, Stop date: 05/13/13 8:00:00 Versed 1 mg, 1 mL, IV No Longer [place] Route: IV, Active 2012 Medical Drug form: [place] INJ, ONCE, Dosing Weight 98.182, kg, Start date: 05/10/13 7:41:00, Stop date: 05/10/13 7:41:00 magnesium 2 gm, 50 mL, IVPB [place] Longer [place] sulfate Route: IVPB, Active 2012 Medical Drug form: [facility] INJ, Q2H, Dosing Weight 98.182, kg, Total Dose = 4 gm, Start date: 05/10/13 6:00:00, Duration: 2 doses or times, Stop date: 05/10/13 8:00:00, For Mg = 1.5 - 1.7 mg/dLFor Mg = 1.5 - 1.7 mg/dL Lipitor 80 mg, 1 tab, PO No Longer [place] Route: PO, Active 2012 Medical Drug form: [place] TAB, Bedtime, Dosing Weight 113.636, kg, Start date: 05/09/13 21:00:00, Duration: 30 day, Stop date: 06/07/13 21:00:00 Mag-Ox 400 400 mg, 1 tab, PO No Longer [place] Route: PO, Active 2012 Medical Drug form: [facility] TAB, On Adm, Start date: 05/09/13 19:00:00, Duration: 1 doses or times, Stop date: 05/09/13 21:00:00 magnesium oxide 500 mg, Route: PO No Longer [place] base 500 mg oral PO, Drug form: Active 2012 Medical tablet TAB, ONCE, [facility] Dosing Weight 98.182, kg, Start date: 05/09/13 18:08:00, Stop date: 05/09/13 18:08:00 thiamine 100 mg, 1 tab, PO No Longer [place] Route: PO, Active 2012 Medical Drug form: [place] TAB, Daily, Dosing Weight 98.182, kg, Start date: 05/09/13 9:00:00, Duration: 30 day, Stop date: 06/07/13 9:00:00 folic acid 1 mg, 1 tab, PO No Longer [place] 05/09[facility] [place] Route: PO, Active 2012 Medical Drug form: Center TAB, Daily, Dosing Weight 98.182, kg, Start date: 05/09/13 9:00:00, Duration: 30 day, Stop date: 06/07/13 9:00:00 multivitamin 1 tab, Route: PO No Longer [place] 05/09[facility] PO, Drug Form: Active 2012 Medical TAB, Dosing Center Weight 98.182, kg, Daily, Start date: 05/09/13 8:10:00, Duration: 30 day, Stop date: 06/07/13 9:00:00 heparin 5,000 unit, 1 SUB-Q No Longer Tom [facility] mL, Route: Active 2012 Medical SUB-Q, Drug [facility] form: INJ, Q8H, Dosing Weight 98.182, kg, Start date: 05/09/13 8:00:00, Duration: 30 day, Stop date: 06/08/13 0:00:00 Plavix 75 mg, 1 tab, PO No Longer Tom [facility] Route: PO, Active 2012 Medical Drug form: Center TAB, Daily, Dosing Weight 98.182, kg, Start date: 05/09/13 8:00:00, Duration: 30 day, Stop date: 06/07/13 9:00:00 Rocephin 1 gm, Route: IVPB No Longer Tom 05/09[facility] IVPB, Drug Active 2012 Medical form: PDR/INJ, Center [id number], Dosing Weight 98.182, kg, Start date: 05/09/13 8:00:00, Duration: 4 doses or times, Stop date: 05/13/13 8:00:00 insulin regular 3 unit, 0.03 SUB-Q No Longer [facility] 05/09[facility] 100 units/mL mL, Route: Active [...] NEB, Active Brice 2012 Medical Drug form: [place] SOLN, PRN, Dosing Weight 113.636, kg, PRN Respiratory Protocol, Start date: 05/08/13 21:59:00, Duration: 30 day, Stop date: 06/07/13 21:58:00 Tylenol 325 mg, 1 tab, PO No Longer [place] Route: PO, Active [place] 2012 Medical Drug form: [facility] TAB, Q4H, Dosing Weight 113.636, kg, PRN Pain, Start date: 05/08/13 21:58:00, Duration: 30 day, Stop date: 06/07/13 21:57:00 Saline Flush 5 ml, Route: IVP No Longer [place] 0.9% IVP, Drug Active [place] 2012 Medical Form: INJ, [facility] Dosing Weight 113.636, kg, Q12H, Start date: 05/08/13 21:00:00, Duration: 30 day, Stop date: 06/07/13 9:00:00 docusate 100 mg, 1 cap, PO No Longer Read [place] Route: PO, Active [place] 2012 Medical Drug form: [place] CAP, Q12H, Dosing Weight 113.636, kg, Start [...] 0.5 ml, Route: IM No Longer SYSTEM [facility] vaccine, IM, Drug Form: Active 2011 Medical inactivated INJ, Start Center date: 07/21/12 12:08:00, Stop date: 07/21/12 12:08:00 verapamil 80 mg 80 mg, 1 tab, PO Active Quang [facility] oral tablet PO, TID, 90 2011 Medical tab, 3, 3, Center Substitution Allowed, TAB Haldol 2 mg, 2 tab, PO No Longer [place] [facility] Route: PO, Active 2011 Medical Drug form: Center TAB, Daily, Dosing Weight 113.636, kg, Start date: 07/21/12 9:00:00, Duration: 30 day, Stop date: 08/19/12 9:00:00 aspirin 325 mg, 1 tab, PO No Longer [place] Route: PO, Active 2011 Medical Drug form: [place] TAB, Daily, Dosing Weight 113.636, kg, Start [...] Route: PO, Active 2011 Medical Drug form: [place] TAB, Q12H, Dosing Weight 113.636, kg, Start date: 07/20/12 23:00:00, Duration: 30 day, Stop date: 08/19/12 11:00:00 clonidine 0.1 mg, 1 tab, PO [place] Long[place] Route: PO, Active 2011 Medical Drug form: [place] TAB, Q8H-05, Dosing Weight 113.636, kg, Start date: 07/20/12 21:00:00, Duration: 30 day, Stop date: 08/19/12 13:00:00 Lipitor 40 mg, 1 tab, PO No Longer [place] Route: PO, Active 2011 Medical Drug form: [place] TAB, QPM, Dosing Weight 113.636, kg, Start date: 07/20/12 17:00:00, Duration: 30 day, Stop date: 08/18/12 17:00:00 NS (Bolus) IV 500 mL, Rate: IV No Longer [facility] 500 mL 500 ml/hr, Active 2011 Medical Infuse over: 1 Center hr, Route: IV, kg, Total Volume: 500, Priority: STAT, Start date: 07/20/12 16:31:00, Duration: 1 doses or times, Stop date: 07/20/12 17:30:00, Bolus DoseBolus Dose caffeine 300 mg, 1.5 PO No Longer e [place] tab, Route: Active 2011 Medical PO, Drug form: [place] TAB, ONCE, Start date: 07/20/12 15:30:00, Stop date: 07/20/12 15:30:00 aspirin 81 mg, 1 tab, PO No Longer [place] Route: PO, Active 2011 Medical Drug form: [place] ECTAB, Daily, Dosing Weight 113.636, kg, Start date: 07/20/12 15:00:00, Duration: 30 day, Stop date: 08/19/12 9:00:00 Zofran 4 mg, 2 mL, IV No Longer [facility] Route: IV, Active 2011 Medical Drug form: [place] INJ, Q6H, Dosing Weight 113.636, kg, PRN Nausea, Start date: 07/20/12 13:23:00, Duration: 30 day, Stop date: 08/19/12 13:22:00 caffeine-sodium 250 mg, 1 mL, IVPB No Longer [facility] benzoate + Route: IVPB, Active 2011 Medical Sodium Chloride Drug form: Cente r 0.9% IV 1,000 mL INJ, ONCE, Dosing Weight 113.636, kg, Start date: 07/20/12 13:20:00, Stop date: 07/20/12 13:20:00 Navane 20 mg, 4 cap, PO No Longer [facility] Route: PO, Active 2011 Medical Drug form: [place] CAP, Daily, Dosing Weight 113.636, kg, Start date: 07/20/12 9:00:00, Duration: 30 day, Stop date: 08/18/12 9:00:00 clonidine 0.1 mg, Route: PO No Longer [facility] [place] PO, Drug form: Active 2011 Medical TAB, TID, [facility] Dosing Weight 113.636, kg, Start date: 07/20/12 9:00:00, Duration: 30 day, Stop date: 08/18/12 17:00:00 Haldol 2 mg, 1 tab, PO No Longer [facility] Route: PO, Active 2011 Medical Drug form: [place] TAB, Daily, Dosing Weight 113.636, kg, Start date: 07/20/12 9:00:00, Duration: 30 day, Stop date: 08/18/12 9:00:00 Zoloft 100 mg, 1 tab, PO No Longer [facility] [place] Route: PO, Active 2011 Medical Drug form: [place] TAB, Daily, Dosing Weight 113.636, kg, Start date: 07/20/12 9:00:00, Duration: 30 day, Stop date: 08/18/12 9:00:00 Wellbutrin 300 mg, 2 tab, PO No Longer [facility] [place] Route: PO, Active 2011 Medical Drug form: [place] ERTAB, Daily, Dosing Weight 113.636, kg, Start [...] IVP, Drug Active 2011 Medical Form: INJ, [facility] Dosing Weight 113.636, kg, Q12H, Start date: 07/19/12 21:00:00, Duration: 30 day, Stop date: 08/18/12 9:00:00 famotidine 20 mg, 1 tab, PO No Longer [place] Route: PO, Active 2011 Medical Drug form: [facility] TAB, Q12H, Dosing Weight 113.636, kg, Start date: 07/19/12 21:00:00, Duration: 30 day, Stop date: 08/18/12 9:00:00 Visipaque 100 mL, Route: IVP No Longer [place] 320mg/ml IVP, Drug Active 2011 [facility] Dosing Weight 113.636, kg, ONCALL, STAT, Start date: 07/19/12 14:56:00, Duration: 1 doses or times, Dose = 2.2ml/kg, Max dose = 150mlDose = 2.2ml/kg, Max dose = 150ml enoxaparin 40 mg, 0.4 mL, SUB-Q [facility] [place] [facility]: SUB-Q, Active 2011 Medical Drug form: [place] INJ, Q24H, Dosing Weight 113.636, kg, Start date: 07/19/12 11:00:00, Duration: 30 day, Stop date: 08/17/12 11:00:00 hydromorphone 1 mg, 0.5 mL, IVP No Longer [place] [facility] Route: IVP, Active 2011 Medical Drug form: [place] INJ, ONCE, Dosing Weight 113.636, kg, Priority: STAT, Start date: 07/19/12 10:49:00, Stop date: 07/19/12 10:49:00 Plavix 75 mg, 1 tab, PO No Longer [place] Route: PO, Active 2011 Medical Drug form: [place] TAB, Daily, Dosing Weight 113.636, kg, Priority: STAT, Start date: 07/19/12 10:17:00, Duration: 30 day, Stop date: 08/18/12 9:00:00 Saline Flush 5 ml, Route: IVP No Longer [facility] [place] 0.9% IVP, Drug Active 2011 Medical Form: INJ, [facility] Dosing Weight 113.636, kg, PRN, PRN Line Flush, Start date: 07/19/12 10:05:00, Duration: 30 day, Stop date: 08/18/12 10:04:00 acetaminophen 650 mg, 2 tab, PO No Longer [place] [facility] Route: PO, Active 2011 Medical Drug form: [place] TAB, Q4H, Dosing Weight 113.636, kg, PRN Pain/Fever, Start date: 07/19/12 10:05:00, Duration: 30 day, Stop date: 08/18/12 10:04:00 Sodium Chloride 1,000 mL, IV [facility] [place] 0.9% IV 1,000 mL Rate: 75 Active 2011 Medica l ml/hr, Infuse Center over: 13.3 hr, Route: IV, kg, Total Volume: 1,000, Start date: 07/19/12 10:05:00, Duration: 30 day, Stop date: 08/18/12 10:04:00 Navane 20 mg, PO, PO Active [facility] , 2011 Medical Substitution Center Allowed Haldol 2 mg, PO, PO Active [facility] Daily, 2011 Medical Substitution Center Allowed Wellbutrin 300 mg, PO, PO Active [facility] Daily, 2011 Medical Substitution Center Allowed Zoloft 100 mg, PO, PO Active [facility] Daily, 2011 Medical Substitution Center Allowed clonidine 0.3 mg, PO, PO Active [place] [facility] TID2011 Medical Substitution Center Allowed promethazine 25 mg, 1 mL, IVPB No Longer [place] [facility] Route: IVPB, Active 2011 Medical Drug form: Center INJ, ONCE, Dosing Weight 113.636, kg, Priority: STAT, Start date: 07/19/12 6:57:00, Stop date: 07/19/12 6:57:00 hydromorphone 1 mg, 0.5 mL, IVP No Longer [place] 07/19/ [facility] Route: IVP, Active 2011 Medical Drug form: Center INJ, ONCE, Dosing Weight 113.636, kg, Priority: STAT, Start date: 07/19/12 6:56:00, Stop date: 07/19/12 6:56:00 Allergies, Adverse Reactions, Alerts Substance Category Reaction Severity Reaction Status Date Comments S ource type Reported Compazine Assertion Drug Active [facility] [place]ote Assertion Drug Active [place] [facility] labetalol Assertion Drug Active [facility] NSAIDs Assertion Drug Active [place] as [facility] Stadol Assertion Drug Active [place] as [facility] Toradol Assertion Drug Active [place] as [facility] Vicoprofen Assertion Drug Active [facility] Immunizations Immunization Date Given Site Status Last Comments Source Updated influenza virus 10/28/2014 Left completed Aliza [facility] Center pneumococcal 11/14/2013 Right completed Keegan [place] 23-valent vaccine [facility] dical Center influenza virus 07/21/2012 Right completed Yovany [facility] vaccine, Deltoid Medical inactivated Center influenza virus 07/21/2012 completed Yovany [facility] vaccine, Medical inactivated Center influenza virus 07/21/2012 Not Given Yovany [facility] vaccine, Medical inactivated [facility] influenza virus 07/21/2012 Not Given Yovany [facility] vaccine, Medical inactivated [facility] Results Order Name Results Value Reference Date Interpretation Comments Manda rce Range CHEM PANEL Phosphorus 2.6 2.5 - 4.5 03/12 [facility] CHEM PANEL eGFR 101 03/12 Result [...] Calcium Lvl 8.2 8.5 - 10.5 03/12 [facility] CHEM PANEL Glucose Lvl 97 70 - 99 03/[address] CHEM PANEL Potassium Lvl 3.3 3.5 - 5.1 03/12 [facility]2018 [facility] CHEM PANEL Chloride Lvl 110 95 - 109 03/12 [facility]2018 [facility] CHEM PANEL AGAP 15.3 10.0 - 03/12 [facility] 20.0 [facility] CHEM PANEL CO2 21 24 - 32 03/[address] CHEM PANEL BUN 5 7 - 22 03/[address] CHEM PANEL Creatinine 0.64 0.50 - 03/12 [place] Lvl 1.40 [facility] CHEM PANEL Sodium Lvl 143 135 - 145 03/[address] CHEM PANEL Magnesium Lvl 1.9 1.8 - 2.4 03/[address] HEMATOLOGY Basophils # 0.1 0.0 - 0.2 03/[address] HEMATOLOGY Eosinophils 3.0 0.0 - 4.0 03/[address] HEMATOLOGY Basophils 1.2 0.0 - 1.0 03/[address] HEMATOLOGY Segs 62.0 45.0 - 03/12 [facility] 75.0 [facility] HEMATOLOGY Lymphocytes # 2.6 1.0 - 5.5 03/[address] HEMATOLOGY Monocytes # 0.4 0.0 - 0.8 03/12 [place] [facility] HEMATOLOGY Lymphocytes 29.6 20.0 - 03/12 40.0 [facility] HEMATOLOGY Monocytes 4.2 2.0 - 12.0 03/12 [facility] HEMATOLOGY Eosinophils # 0.3 0.0 - 0.5 03/12 [facility] HEMATOLOGY Neutrophils # 5.5 1.5 - 8.1 03/12 [facility] HEMATOLOGY RBC 3.64 4.20 - 03/12 [place] 5.40 [facility] HEMATOLOGY Hgb 10.5 12.0 - 03/12 16.0 [facility] HEMATOLOGY Platelet 194 133 - 450 03/12 [facility] HEMATOLOGY MPV 8.0 7.4 - 10.4 03/12 [facility] HEMATOLOGY RDW 16.7 11.5 - 03/12 14.5 [facility] HEMATOLOGY WBC 8.9 3.7 - 10.4 03/12 [facility] HEMATOLOGY MCH 29.0 27.0 - 03/12 31.0 [facility] HEMATOLOGY MCHC 32.7 32.0 - 03/12 36.0 [facility] HEMATOLOGY MCV 88.4 80.0 - 03/12 98.0 [facility] HEMATOLOGY Hct 32.2 36.0 - 03/12 48.0 [facility] PARATHYROID Ca Ion WB 1.05 1. - 03/12 [facility] PROFILE 09.11 [facility] PARATHYROID Ca Norm WB 1.05 1.05 - 03/12 [facility] PROFILE 09.11 [facility] CHEM PANEL eGFR 83 03/11 Result [...] CHEM PANEL AGAP 11.4 10.0 - 03/11 [facility] 20.0 [facility] CHEM PANEL Calcium Lvl 8.2 8.5 - 10.5 03/11 [facility] CHEM PANEL CO2 25 24 - 32 03/11 [facility]2018 [facility] CHEM PANEL Chloride Lvl 110 95 - 109 03/11 [facility] CHEM PANEL Potassium Lvl 3.4 3.5 - 5.1 03/11 [place] [facility] CHEM PANEL Creatinine 0.80 0.50 - 03/11 [facility] Lvl 1.40 [facility] CHEM PANEL Sodium Lvl 143 135 - 145 03/11 [facility]2018 [facility] CHEM PANEL Glucose Lvl 142 70 - 99 03/11 [facility] CHEM PANEL BUN 4 7 - 22 03/11 [facility] PARATHYROID Ca Norm WB 1.07 1.05 - 03/11 [facility] PROFILE 1. [facility] PARATHYROID Ca Ion WB 1.07 1.05 - 03/11 [facility] . [facility] URINE AND UA WBC 4 0 - 5 03/11 [facility] STOOL [facility] URINE AND UA Leuk Est Negative Negative 03/11 [facility] (03/11/19 4:57 PM) [facility] URINE AND UA Sq Epi Few /LPF Few /LPF 03/11 [facility] URINE AND UA <1.0 0.1 - 1.0 03/11 [facility] Urobilinogen /2018 [facility] URINE AND UA Nitrite Negative Negative 03/11 [facility] (03/11/19 4:57 PM) [facility] URINE AND UA Bili Negative Negative 03/11 [facility] STOOL *NA* /2018 [facility] (03/11/19 4:57 PM) [facility] URINE AND UA Blood Negative Negative 03/11 [facility] (03/11/19 4:57 PM) [facility] URINE AND UA Ketones Trace Negative 03/11 [facility] mg/dL mg/dL [facility] URINE AND UA Mucus Few /LPF None Seen 03/11 [facility] STOOL /LPF [facility] URINE AND UA RBC 1 0 - 2 03/11 [facility] URINE AND UA Bacteria Few /HPF None Seen 03/11 [facility] STOOL /HPF [facility] URINE AND UA Color Yellow Yellow 03/11 [facility] *NA* [facility] (03/11/19 4:57 PM) [facility] URINE AND UA Turbidity Slight Clear 03/11 [facility] *ABN* [facility] (03/11/19 4:57 PM) [facility] URINE AND UA Spec Grav 1.016 <=1.030 03/11 [facility] URINE AND UA Protein 30 mg/dL Negative 03/11 [facility] mg/dL [facility] URINE AND UA pH 8.0 5.0 - 8.0 03/11 [facility] URINE AND UA Glucose Negative Negative 03/11 [facility] mg/dL mg/dL [facility] URINE CHEM U Potassium 7.4 03/11 [facility] URINE CHEM U Chloride 125 03/11 [facility] URINE CHEM U Sodium 192 03/11 [facility] URINE CHEM U Osmolality 528 300 - 800 03/11 [place] [facility] URINE CHEM U Preg Negative Negative 03/11 [facility] (03/11/19 4:57 PM) [facility] CHEM PANEL eGFR 109 03/11 Result Comment: [...] Lvl 2.9 3.5 - 5.1 03/11 Result [facility] Comment: Medical Critical Center Result(s) called to Alaina Rosa at 03/11/2019 06:03 by . Read back OK. CHEM PANEL Sodium Lvl 140 135 - 145 03/11 [facility] CHEM PANEL Creatinine 0.51 0.50 - 03/11 [place] Lvl 1.40 [facility] CHEM PANEL BUN 4 7 - 22 03/11 [facility] CHEM PANEL Glucose Lvl 79 70 - 99 03/11 [facility] CHEM PANEL Calcium Lvl 7.6 8.5 - 10.5 03/11 [facility] CHEM PANEL AGAP 9.9 10.0 - 03/11 20. [facility] CHEM PANEL CO2 27 24 - 32 03/11 [facility] CHEM PANEL Chloride Lvl 106 95 - 109 03/11 [facility] CHEM PANEL Phosphorus 3.7 2.5 - 4.5 03/11 [facility] CHEM PANEL Magnesium Lvl 2.0 1.8 - 2.4 03/11 [facility] HEMATOLOGY MPV 8.1 7.4 - 10.4 03/11 [facility] HEMATOLOGY Platelet 163 133 - 450 03/11 [facility] HEMATOLOGY RDW 16.6 11.5 - 03/11 14.5 [facility] HEMATOLOGY MCH 29.0 27.0 - 03/11 31.0 [facility] HEMATOLOGY MCHC 33.0 32.0 - 03/11 36.0 [facility] HEMATOLOGY RBC 3.64 4.20 - 03/11 5.40 [facility] HEMATOLOGY Hgb 10.6 12.0 - 03/11 16.0 [facility] HEMATOLOGY WBC 9.3 3.7 - 10.4 03/11 [facility] HEMATOLOGY MCV 87.8 80.0 - 03/11 [place] 98.0 2019 [facility] HEMATOLOGY Hct 32.0 36.0 - 03/11 [place] 48.0 [facility] HEMATOLOGY Eosinophils 4.0 0.0 - 4.0 03/11 [facility] [address] s /2019 [facility] HEMATOLOGY Segs 62.5 45.0 - 03/11 [place] 75.0 2019 [facility] HEMATOLOGY Lymphocytes 27.8 20.0 - 03/11 [place] 40.0 [facility] HEMATOLOGY Monocytes 4.5 2.0 - 12.0 03/[address] HEMATOLOGY Neutrophils # 5.8 1.5 - 8.1 03/11 [facility]2018 [facility] HEMATOLOGY Lymphocytes # 2.6 1.0 - 5.5 03/[address] HEMATOLOGY Monocytes # 0.4 0.0 - 0.8 03/11 [facility]2018 [facility] HEMATOLOGY Eosinophils # 0.4 0.0 - 0.5 03/11 [facility]2018 [facility] HEMATOLOGY Basophils 1.2 0.0 - 1.0 03/[address] HEMATOLOGY Basophils # 0.1 0.0 - 0.2 03/11 [facility]2018 [facility] PARATHYROID Ca Ion WB 0.91 1.05 - 03/11 [facility] PROFILE 1. [facility] PARATHYROID Ca Norm WB 0.96 1.05 - 03/11 [facility] PROFILE 1. [facility] HEMATOLOGY Eosinophils # 0.3 0.0 - 0.5 03/[address] HEMATOLOGY Monocytes # 0.4 0.0 - 0.8 03/10 [facility]2018 [facility] HEMATOLOGY Lymphocytes # 2.8 1.0 - 5.5 03/[address] HEMATOLOGY Basophils # 0.1 0.0 - 0.2 03/10 [facility]2018 [facility] HEMATOLOGY Segs 61.6 45.0 - 03/10 [place] 75.0 2019 [facility] HEMATOLOGY Lymphocytes 29.1 20.0 - 03/10 [facility] 40.0 2019 [facility] HEMATOLOGY Basophils 1.2 0.0 - 1.0 03/[address] HEMATOLOGY Monocytes 4.5 2.0 - 12.0 03/[address] HEMATOLOGY Neutrophils # 5.8 1.5 - 8.1 03/[address] HEMATOLOGY Eosinophils 3.6 0.0 - 4.0 03/10 [facility]2018 [facility] HEMATOLOGY MPV 7.9 7.4 - 10.4 03/10 [facility] HEMATOLOGY Hct 34.6 36.0 - 03/10 [place] 48.0 /2018 [facility] HEMATOLOGY MCH 28.6 27.0 - 03/10 [place] 31.0 [facility] HEMATOLOGY MCV 88.5 80.0 - 03/10 [place] 98.0 [facility] HEMATOLOGY Platelet 162 133 - 450 03/10 [facility] HEMATOLOGY RDW 16.7 11.5 - 03/10 [place] 14.5 [facility] HEMATOLOGY MCHC 32.3 32.0 - 03/10 [place] 36.0 [facility] HEMATOLOGY Hgb 11.2 12.0 - 03/10 [place] 16.0 [facility] HEMATOLOGY RBC 3.91 4.20 - 03/10 [facility] 5.40 [facility] HEMATOLOGY WBC 9.5 3.7 - 10.4 03/10 [facility] HEMATOLOGY INR 1.06 0.85 - 03/10 [place] 1.17 [facility] HEMATOLOGY PT 13.6 12.0 - 03/10 [place] 14.7 [facility] HEMATOLOGY PTT 36.3 22.9 - 03/10 [place] 35.8 [facility] CARDIAC Troponin-I 0.30 0.00 - 03/10 [facility] ENZYMES 0.40 [facility] CHEM PANEL Phosphorus 1.6 2.5 - 4.5 03/10 [facility] CHEM PANEL Magnesium Lvl 2.1 1.8 - 2.4 03/10 [place] [facility] LIPIDS VLDL 39 03/10 [facility] LIPIDS LDL 36 <=99 mg/dL 03/10 [facility] (Calculated) [facility] LIPIDS HDL 28 >=61 mg/dL 03/10 [facility] LIPIDS Trig 195 <=149 03/10 [facility] mg/dL [facility] LIPIDS Chol 103 <=199 03/10 [facility] mg/dL [facility] LIPIDS CHD Risk 3.68 3.90 - 03/10 [place] 5.80 [facility] SPECIAL Hgb A1C 4.8 <=5.6 % 03/10 [facility] CHEMISTRY [facility] ANEMIA Vitamin B12 267 254 - 1320 03/10 [facility] STUDY Lvl /2018 [facility] ANEMIA Folate Lvl 4.4 >=3.0 07/24 [place] STUDY ng/mL /2018 [facility] CARDIAC BNP 10 <=100 03/10 [facility] ENZYMES pg/mL [facility] CHEM PANEL Osmolality 294 280 - 300 03/10 [facility] HEMATOLOGY PTT 42.4 22.9 - 03/10 [place] 35.8 [facility] HEMATOLOGY PT 13.5 12.0 - 03/10 [place] 14.7 [facility] HEMATOLOGY INR 1.05 0.85 - 03/10 [place] . [facility] CARDIAC Troponin-I 0.48 0.00 - 03/10 [facility] ENZYMES 0.40 [facility] CARDIAC Troponin-I 0.50 0.00 - 03/09 Result [facility] ENZYMES 0.40 Comment: [facility] Critical [facility] Result(s) called to Dr. Ezekiel Tran at 03/09/2019 18:01 by AC. Read back OK. CARDIAC Total CK 63 12 - 191 03/09 [facility] ENZYMES [facility] CHEM PANEL Lactic Acid 1.2 0.5 - 2.2 03/09 [place] [facility] HEMATOLOGY PTT 31.7 22.9 - 03/09 [place] 35.8 [facility] HEMATOLOGY INR 1.07 0.85 - 03/09 [place] 09.03 [facility] HEMATOLOGY PT 13.7 12.0 - 03/09 [facility] 14 [facility] CHEM PANEL Phosphorus 3.5 2.5 - 4.5 03/22 [facility] CHEM PANEL Magnesium Lvl 1.8 1.8 - 2.4 03/22 [place] [facility] ELECTROLYTE CO2 22 24 - 32 03/22 [place] [facility] ELECTROLYTE Calcium Lvl 8.9 8.5 - 10.5 03/22 [facility] [place] [facility] ELECTROLYTE AGAP 14.6 10.0 - 08 [facility] S 20.0 [facility] ELECTROLYTE Chloride Lvl 110 95 - 109 03/22 [place] [facility] ELECTROLYTE Potassium Lvl 3.6 3.5 - 5.1 03/22 [place] [facility] ELECTROLYTE Creatinine 0.9 0.5 - 1.4 03/22 [place] /2014 [facility] ELECTROLYTE Sodium Lvl 143 135 - 145 03/22 [facility] [place] [facility] ELECTROLYTE Glucose Lvl 81 70 - 99 03/22 [facility] ELECTROLYTE BUN 10 7 - 22 03/22 [facility] ELECTROLYTE eGFR 75 03/22 [facility] Comment: The Medical eGFR is Center [...] HEMATOLOGY MPV 7.5 7.4 - 10.4 08 [facility] HEMATOLOGY Platelet 224 133 - 450 03/22 [facility] HEMATOLOGY WBC 11.7 3.7 - 10.4 03/22 [facility] HEMATOLOGY Hct 32.6 36.0 - 03/22 [place] 48.0 [facility] HEMATOLOGY MCV 84.1 80.0 - 03/22 [place] 98.0 /2014 [facility] HEMATOLOGY RBC 3.87 4.20 - 03/22 [place] 5.40 /2014 [facility] HEMATOLOGY Hgb 10.4 12.0 - 08 [place] 16.0 /2014 [facility] HEMATOLOGY MCHC 31.9 32.0 - 08 [place] 36.0 [facility] HEMATOLOGY MCH 26.8 27.0 - 08 [place] 31.0 [facility] HEMATOLOGY RDW 17.6 11.5 - 08 14.5 [facility] HEMATOLOGY Eosinophils 1.0 0.0 - 4.0 08 a [facility] HEMATOLOGY Monocytes 7.4 2.0 - 12.0 03/22 [facility] HEMATOLOGY Lymphocytes 38.6 20.0 - 08 [place] 40.0 /2014 [facility] HEMATOLOGY Segs 52.0 45.0 - 08 [place] 75.0 /2014 [facility] HEMATOLOGY Basophils 1.0 0.0 - 1.0 03/22 [facility] HEMATOLOGY Segs-Bands # 6.1 1.5 - 8.1 08 [facility] HEMATOLOGY Basophils # 0.1 0.0 - 0.2 03/22 [facility] HEMATOLOGY Monocytes # 0.9 0.0 - 0.8 03/22 [facility] HEMATOLOGY Eosinophils # 0.1 0.0 - 0.5 03/22 [facility] HEMATOLOGY Lymphocytes # 4.5 1.0 - 5.5 03/22 [facility] IMMUNOLOGY Alpha 1 % 5.0 2.8 - 4.9 03/21 [facility] IMMUNOLOGY Gamma % 14.5 11.1 - 03/21 18.7 /2014 [facility] IMMUNOLOGY Alpha 2 % 16.2 7.0 - 11.9 03/21 [facility] IMMUNOLOGY Beta % 15.1 7.8 - 13.7 03/21 [facility] IMMUNOLOGY Albumin % 49.2 55.8 - 08 [place] 66.1 /2014 [facility] IMMUNOLOGY Alpha 1 Glob 0.34 0.18 - 03/21 [place] 0.41 /2014 [facility] IMMUNOLOGY Tot Prot 6.8 6.4 - 8.4 03/21 (SPE) [facility] IMMUNOLOGY SPE Interp Total 03/21 [facility] protein Medical within the Center reference [...] with the resident&a pos;s interpreta tion. CPT 73904-[facility] IMMUNOLOGY Albumin (SPE) 3.35 3.57 - 08 [place] 5.55 /2014 [facility] IMMUNOLOGY Gamma Glob 0.99 0.71 - 08 [facility] 1.57 [facility] IMMUNOLOGY Alpha 2 Glob 1.10 0.45 - 08 1.00 [facility] IMMUNOLOGY Beta Glob 1.03 0.50 - 03/21 1.15 [facility] CHEM PANEL eGFR 101 03/21 Result [...] Calcium Lvl 9.1 8.5 - 10.5 03/21 [facility] CHEM PANEL Potassium Lvl 3.8 3.5 - 5.1 03/21 [facility] CHEM PANEL CO2 21 24 - 32 03/21 [facility] CHEM PANEL Chloride Lvl 110 95 - 109 03/21 [facility] CHEM PANEL BUN 11 7 - 22 03/21 [facility] CHEM PANEL Sodium Lvl 142 135 - 145 03/21 [facility] CHEM PANEL Glucose Lvl 83 70 - 99 03/21 [facility] CHEM PANEL Creatinine 0.7 0.5 - 1.4 03/21 [facility] CHEM PANEL AGAP 14.8 10.0 - 08 20.0 [facility] CHEM PANEL Magnesium Lvl 1.8 1.8 - 2.4 03/21 [facility] CHEM PANEL Phosphorus 4.1 2.5 - 4.5 03/21 [facility] HEMATOLOGY Eosinophils # 0.1 0.0 - 0.5 08/ [facility] HEMATOLOGY Monocytes # 0.7 0.0 - 0.8 08/ [facility] HEMATOLOGY Basophils 1.0 0.0 - 1.0 08/ [facility] HEMATOLOGY Eosinophils 1.2 0.0 - 4.0 08/ [facility] HEMATOLOGY Lymphocytes # 3.7 1.0 - 5.5 08 [facility] HEMATOLOGY Segs-Bands # 5.4 1.5 - 8.1 08 [facility] HEMATOLOGY Monocytes 6.9 2.0 - 12.0 08/ [facility] HEMATOLOGY Basophils # 0.1 0.0 - 0.2 03/21 [facility] HEMATOLOGY Segs 54.0 45.0 - 08 75.0 [facility] HEMATOLOGY Lymphocytes 36.9 20.0 - 08 40.0 [facility] HEMATOLOGY Hct 32.9 36.0 - 08 48.0 [facility] HEMATOLOGY Hgb 10.8 12.0 - 08 16.0 [facility] HEMATOLOGY RBC 3.91 4.20 - 08 [place] 5.40 /2014 [facility] HEMATOLOGY WBC 10.0 3.7 - 10.4 08 [facility] HEMATOLOGY MCHC 32.9 32.0 - 08/ 36.0 [facility] HEMATOLOGY RDW 17.2 11.5 - 08 14.5 [facility] HEMATOLOGY MCH 27.7 27.0 - 08 31.0 [facility] HEMATOLOGY MCV 84.2 80.0 - 08 98.0 [facility] HEMATOLOGY MPV 7.5 7.4 - 10.4 03/21 [facility] HEMATOLOGY Platelet 251 133 - 450 03/21 [facility] IMMUNOLOGY IgG Lvl CSF 6.4 2.0 - 4.0 03/21 [facility] CHEM PANEL eGFR 101 08/ Result [...] Sodium Lvl 141 135 - 145 03/20 [facility] CHEM PANEL Glucose Lvl 71 70 - 99 03/20 [facility] CHEM PANEL BUN 7 7 - 22 03/20 [facility] CHEM PANEL Creatinine 0.7 0.5 - 1.4 03/20 [facility] CHEM PANEL Potassium Lvl 3.9 3.5 - 5.1 03/20 [facility] CHEM PANEL Calcium Lvl 9.2 8.5 - 10.5 03/20 [facility] CHEM PANEL Chloride Lvl 108 95 - 109 03/20 [facility] CHEM PANEL CO2 23 24 - 32 03/20 [facility] CHEM PANEL AGAP 13.9 10.0 - 03/20 [place] 20.0 [facility] CHEM PANEL Magnesium Lvl 1.9 1.8 - 2.4 03/20 [facility] CHEM PANEL Phosphorus 3.6 2.5 - 4.5 03/20 [facility] HEMATOLOGY MCHC 33.2 32.0 - 08 [place] 36.0 [facility] HEMATOLOGY Platelet 285 133 - 450 03/20 [facility] HEMATOLOGY RDW 17.2 11.5 - 03/20 14.5 [facility] HEMATOLOGY RBC 4.07 4.20 - 08 [place] 5.40 /2014 [facility] HEMATOLOGY WBC 9.6 3.7 - 10.4 03/20 [facility] HEMATOLOGY Hgb 11.2 12.0 - 03/20 [place] 16.0 /2014 [facility] HEMATOLOGY Hct 33.6 36.0 - 03/20 48.0 /2014 [facility] HEMATOLOGY MCV 82.6 80.0 - 03/20 98.0 /2014 [facility] HEMATOLOGY MCH 27.4 27.0 - 03/20 31.0 /2014 [facility] HEMATOLOGY MPV 7.7 7.4 - 10.4 03/20 [facility] HEMATOLOGY Segs 55.3 45.0 - 03/20 [place] 75.0 /2014 [facility] HEMATOLOGY Basophils 1.9 0.0 - 1.0 03/20 [facility] HEMATOLOGY Lymphocytes 35.6 20.0 - 03/20 40.0 /2014 [facility] HEMATOLOGY Monocytes 6.2 2.0 - 12.0 03/20 [facility] HEMATOLOGY Eosinophils 1.0 0.0 - 4.0 03/20 [facility] HEMATOLOGY Segs-Bands # 5.3 1.5 - 8.1 03/20 [facility] HEMATOLOGY Lymphocytes # 3.4 1.0 - 5.5 03/20 [place] [facility] HEMATOLOGY Monocytes # 0.6 0.0 - 0.8 03/20 [facility] HEMATOLOGY Eosinophils # 0.1 0.0 - 0.5 03/20 [facility] HEMATOLOGY Basophils # 0.2 0.0 - 0.2 03/20 s [facility] IMMUNOLOGY IgG Lvl 971 914 - 1618 03/20 [facility] HEMATOLOGY dRVV Ratio 0.91 <=1.20 03/19 [facility] HEMATOLOGY Hex Phos N Negative Negative 03/19 [facility] (03/19/15 11:56 AM) /2014 [facility] HEMATOLOG[facility] Lup Interp Negative 03/19 [facility] for lupus [facility] ant with all tests performed (dRVVT, and hexagonal phospholip id neutraliza tion). CPT: 78171 IMMUNOLOGY Treponemal Non Reactive Non 03/19 [facility] xa Scr *NA* Reactive /2014 [facility] (03/19/15 11:56 AM) Center IMMUNOLOGY HIV 1/2 Ab Negative Negative 03/18 [facility] *NA* /2014 Medical (03/18/15 4:44 PM) Center VIRAL - W Nile Ab IgM <0.90 03/18 Result [facility] SEROLOGY Comment: Medical REFERENCE Center RANGE: [...] by other flavivirus infections
(e.g. Dengue virus, Payette encephalitis virus)
ma y show cross-reactiv ity with WNV.
Test Performed at:
[employer]
[address] [facility] [address] Paige Gant MD CARDIAC Troponin-I <0.02 0.00 - 03/18 [facility] ENZYMES 0.40 /2014 [facility] HEMATOLOGY PT 14.5 12.0 - 03/17 [facility] 14.7 /2015 [facility] HEMATOLOGY INR 1.12 0.85 - 03/17 [place] 1.17 /2014 [facility] HEMATOLOGY PTT 31.2 22.9 - 03/17 [facility] 35.8 /2015 [facility] CARDIAC Troponin-I <0.02 0.00 - 03/17 [facility] ENZYMES 0.40 /2014 [facility] CHEM PANEL Ammonia 71.0 <=45.0 03/17 [facility] uMol/L /2014 [facility] BODY FLUIDS Glucose CSF 42 45 - 80 03/17 [facility] BODY FLUIDS Monocyte CSF 9 15 - 45 03/17 [place] [facility] BODY FLUIDS Eos CSF 1 03/17 [facility] BODY FLUIDS Lymph CSF 90 40 - 80 03/17 Result Comment: This Medical differential Center demonstrates an increase in lymphocytes with a low RBC counts. Called savannah [email or web address]_by_sam. Read back OK. BODY FLUIDS Clarity CSF Clear Clear 03/17 [place] (03/17/15 11:15 AM) /2014 [facility] BODY FLUIDS Color CSF Colorless Colorless 03/17 [place] (03/17/15 11:15 AM) /2014 [facility] BODY FLUIDS Tube Num CSF 3 03/17 [place] /2014 [facility] BODY FLUIDS Supernat CSF Colorless Colorless 03/17 (03/17/15 11:15 AM) [facility] BODY FLUIDS RBC CSF 3 0 - 03 03/17 [facility] BODY FLUIDS WBC CSF 140 0 - 53 03/17 [facility] BODY FLUIDS Protein CSF 71 15 - 45 03/17 Result Comment: Medical "Significant Center Findings called lj _Sonny Waters_at _03/17/2015 16:03_by _AAC_.Read Back OK." IMMUNOLOGY P-tspphu-C-As < 1:1 < 1:1 03/17 [place] [facility] Comment: Medical Ab CSF INTERPRETIVE Center INFORMATION: W-[id number]-P-As partate
Receptor Ab, CSF
Anti- NMDA receptor [...]
Test developed and characteristi cs determined by [facility]. See Compliance Statement B: [email or web address] S
Perform ed by [email or web address],
[address], [facility] [place] [address]
[email or web address], Horacio Stinson MD - Lab. hydro plant operator VZV PCR NOT 03/17 Result [facility] Comment: Medical REFERENCE Center RANGE: NOT DETECTED

This test was developed and its performance<b r/>characteri stics have been determined by [facility]
[employer] [facility]. Performance characteristi cs refer to
the analytical performance of the test.

This test is performed pursuant to a license
a greement with [employer]
Test Performed at:
[employer]
[address] [facility]
[place] [address] Paige Gant MD IMMUNOLOGY Source CSF 03/17 [place] /2014 [facility] IMMUNOLOGY VDRL Scr CSF Non Reactive Non 03/17 [place] (03/17/15 11:15 AM) Reactive /2014 [facility] MOLECULAR HSV 2 by PCR Negative [...] HSV Cerebral 03/17 [place] DIAGNOSTIC Spinal /2014 [facility] VIRAL - Enterovirus Negative Negative 03/17 [facility] SEROLOGY PCR CSF (03/17/15 11:15 AM) /2014 [facility] BACTERIAL - MRSA by PCR Negative 03/17 [place] SEROLOGY (03/17/15 7:34 AM) /2014 [facility] CHEM PANEL Procalcitonin <0.05 0.00 - 03/17 [place] L[place] ng/mL 0.10 /2014 [facility] TOXICOLOGY Valproic Acid 115 50 - 100 03/17 [place] Lvl /2014 [facility] BLOOD BANK Antibody Scrn Negative 03/17 [place] RESULTS (03/16/15 9:18 PM) /2014 [facility] BLOOD BANK ABO/Rh O POS 03/17 [place] RESULTS /2014 [facility] CHEM PANEL A/G Ratio 0.7 0.7 - 1.6 03/17 [facility] CHEM PANEL B/C Ratio 12 6 - 25 03/17 2014 [facility] CHEM PANEL Globulin 3.9 2.0 - 4.0 03/17 [facility] CHEM PANEL AST 5 0 - 37 03/17 2014 [facility] CHEM PANEL Alk Phos 110 39 - 136 03/17 2014 [facility] CHEM PANEL Bili Total 0.2 0.2 - 1.3 03/17 [facility] CHEM PANEL ALT 19 0 - 65 03/17 [facility] CHEM PANEL Total Protein 6.8 6.4 - 8.4 03/17 [facility] CHEM PANEL Albumin Lvl 2.9 3.5 - 5.0 03/17 [place] /2014 [facility] DRUG SCREEN UDS Note See Note [...] 29.7 22.9 - 07/31 [place] 35.8 /2014 [facility] PARATHYROID Ca Ion WB 1.15 1.05 - 03/17 [facility] PROFILE 1.25 [facility] PARATHYROID Ca Norm WB 1.12 1.05 - 03/17 [facility] PROFILE 1. [facility] URINE AND UA Bili Negative Negative 03/17 [facility] STOOL *NA* /2014 [facility] (03/16/15 9:18 PM) [facility] URINE AND UA Ketones Negative Negative 03/17 [facility] mg/dL mg/dL /2014 [facility] URINE AND UA Nitrite Negative Negative 03/17 [facility] (03/16/15 9:18 PM) /2014 [facility] URINE AND UA Leuk Est Negative Negative 03/17 [facility] (03/16/15 9:18 PM) /2014 [facility] URINE AND UA Blood Negative Negative 03/17 [facility] (03/16/15 9:18 PM) /2014 [facility] URINE AND UA Mucus Few /LPF None Seen 03/17 [facility] /LPF /2014 [facility] URINE AND UA Sq Epi Occasional Few /LPF 03/17 [facility] /LPF /2014 [facility] URINE AND UA RBC <1 0 - 2 03/17 [facility] /2014 [facility] URINE AND UA <=1.0 0.1 - 1.0 03/17 [facility] Urobilinogen mg/dL /2014 [facility] URINE AND UA Glucose Negative Negative 03/17 [facility] mg/dL mg/dL /2014 [facility] URINE AND UA pH 7.0 5.0 - 8.0 03/17 [facility] /2014 [facility] URINE AND UA Protein Negative Negative 03/17 [facility] mg/dL mg/dL /2014 [facility] URINE AND UA Turbidity Clear Clear 03/17 [facility] (03/16/15 9:18 PM) /2014 [facility] URINE AND UA Spec Grav 1.009 <=1.030 03/17 [facility] /2014 [facility] URINE AND UA Color Light Yellow Yellow 03/17 [facility] STOOL *NA* /2014 Medical (03/16/15 9:18 PM) [facility] HEMATOLOGY PTT 36.1 22.9 - 03/16 <sup>20</sup> [facility] [address] s 35.8 /2014 Interpretive Medical Data: Heparin Center Therapeutic Range: 57 - 92 [facility] HEMATOLOGY PT 14.6 12.0 - 10/31 [facility] 14.7 /2014 [facility] HEMATOLOGY INR 1.13 0.85 - 10/31 <sup>16</sup> [place] 1.17 Interpretive Medical Data: Center RECOMMENDED RANGES FOR PROTIME INR:
2.0-3.0 for most medical and surgical thromboemboli c states.
2.5-3.5 for artificial heart valves and recurrent embolism.<br/ >
INR SHOULD BE USED ONLY FOR PATIENTS ON STABLE ANTICOAGULANT THERAPY. TOXICOLOGY Vanco Tr TND 0830 10/31 [facility] TOXICOLOGY Vanco Tr 25.2 10/31 <sup>9</sup>I [facility] nterpretive Medical Data: [facility] Therapeutic Range:
Trough: 10 - 20 ug/mL
Peak: 20 - 40 ug/mL
Potential Toxicity: >80 ug/mL CHEM PANEL Phosphorus 3.1 2.5 - 4.5 10/31 [facility] CHEM PANEL Magnesium Lvl 1.8 1.8 - 2.4 10/[place] [facility] ELECTROLYTE AGAP 14.1 10.0 - 10/31 [facility] S 20.0 [facility] ELECTROLYTE eGFR 107 10/31 <sup>1</sup>R [facility] Medical Comment: The [facility] eGFR is calculated using the CKD-EPI formula. [...] 142 135 - 145 10/31 [place] [facility] ELECTROLYTE Chloride Lvl 107 95 - 109 10/31 [place] [facility] ELECTROLYTE Potassium Lvl 4.1 3.5 - 5.1 10/31 [place] [facility] ELECTROLYTE Calcium Lvl 8.5 8.5 - 10.5 10/31 [facility] x[place] [facility] ELECTROLYTE CO2 25 24 - 32 10/31 [facility] ELECTROLYTE Creatinine 0.6 0.5 - 1.4 10/[place] [facility] ELECTROLYTE Glucose Lvl 62 70 - 99 10/31 <sup>4</sup>I nterpretive Medical Data: Adult Center reference range values reflect the clinical guidelines
of the [place] [employer]. ELECTROLYTE BUN 6 7 - 22 10/31 [facility] HEMATOLOGY Basophils # 0.1 0.0 - 0.2 10/31 [facility] HEMATOLOGY Segs-Bands # 5.7 1.5 - 8.1 10/31 [facility] HEMATOLOGY Eosinophils 5.0 0.0 - 4.0 10/31 [facility] HEMATOLOGY Lymphocytes 31.1 20.0 - 10/31 [place] 40.0 [facility] HEMATOLOGY Monocytes 5.7 2.0 - 12.0 10/31 [facility] HEMATOLOGY Segs 57.7 45.0 - 10/31 [place] 75.0 [facility] HEMATOLOGY Basophils 0.5 0.0 - 1.0 10/31 [facility] HEMATOLOGY Monocytes # 0.6 0.0 - 0.8 10/31 [facility] HEMATOLOGY Eosinophils # 0.5 0.0 - 0.5 10/31 [facility] HEMATOLOGY Lymphocytes # 3.1 1.0 - 5.5 10/31 [facility] HEMATOLOGY INR 1.08 0.85 - 10/31 <sup>17</sup> [facility] 1. Interpretive Medical Data: Center RECOMMENDED RANGES FOR PROTIME INR:
2.0-3.0 for most medical and surgical thromboemboli c states.
2.5-3.5 for artificial heart valves and recurrent embolism.<br/ >
INR SHOULD BE USED ONLY FOR PATIENTS ON STABLE ANTICOAGULANT THERAPY. HEMATOLOGY PTT 33.9 22.9 - 03 <sup>21</sup> [place] 35.8 /2014 Interpretive Medical Data: [facility] Therapeutic Range: 57 - 92 [place] HEMATOLOGY PT 14.1 12.0 - 10/31 [place] 14.7 /2014 [facility] HEMATOLOGY WBC 10.0 3.7 - 10.4 10/31 /2014 [facility] HEMATOLOGY RBC 3.22 4.20 - 03 [place] 5.40 /2014 [facility] HEMATOLOGY Hct 28.9 36.0 - 10/31 [place] 48.0 /2014 [facility] HEMATOLOGY Hgb 9.7 12.0 - 03 [place] 16.0 /2014 [facility] HEMATOLOGY MCHC 33.4 32.0 - 10/31 [place] 36.0 /2014 [facility] HEMATOLOGY MCH 30.0 27.0 - 10/31 [place] 31.0 /2014 [facility] HEMATOLOGY MCV 89.8 80.0 - 10/31 [place] 98.0 /2014 [facility] HEMATOLOGY MPV 8.2 7.4 - 10.4 10/31 /2014 [facility] HEMATOLOGY Platelet 174 133 - 450 10/31 /2014 [facility] HEMATOLOGY RDW 16.4 11.5 - 03 [place] 14.5 [facility] PARATHYROID Ca Ion WB 1.08 1.05 - 10/31 [place] PROFILE 1.25 /2014 [facility] PARATHYROID Ca Norm WB 1.05 1.05 - 10/31 [place] PROFILE 1.25 [facility] CARDIAC Total CK 70 12 - 191 10/30 [place] ENZYMES [facility] CHEM PANEL Phosphorus 3.2 2.5 - 4.5 10/30 [place] /2014 [facility] CHEM PANEL Magnesium Lvl 1.8 1.8 - 2.4 10/30 [place] /2014 [facility] ELECTROLYTE AGAP 10.6 10.0 - 10/30 [place] S 20.0 [facility] ELECTROLYTE Glucose Lvl 79 70 - 99 10/30 <sup>5</sup>I [facility] S /2014 nterpretive Medical Data: Adult Center reference range values reflect the clinical guidelines
of the [place] [employer]. ELECTROLYTE BUN 8 7 - 22 10/30 [facility] ELECTROLYTE Creatinine 0.6 0.5 - 1.4 10/30 [place] [facility] ELECTROLYTE CO2 27 24 - 32 10/30 [facility] ELECTROLYTE Calcium Lvl 8.1 8.5 - 10.5 10/30 [place] [facility] ELECTROLYTE Potassium Lvl 3.6 3.5 - 5.1 10/30 [place] [facility] ELECTROLYTE Chloride Lvl 109 95 - 109 10/30 [place] S [facility] ELECTROLYTE Sodium Lvl 143 135 - 145 10/30 [place] [facility] ELECTROLYTE eGFR 107 10/30 <sup>2</sup>R [facility] Comment: The Center eGFR is calculated using [...] # 0.4 0.0 - 0.5 10/30 [place] [facility] HEMATOLOGY Lymphocytes # 4.9 1.0 - 5.5 10/30 [facility] HEMATOLOGY Monocytes # 0.6 0.0 - 0.8 10/30 [facility] HEMATOLOGY Segs 49.4 45.0 - 10/30 [place] 75.0 [facility] HEMATOLOGY Segs-Bands # 5.8 1.5 - 8.1 10/30 [facility] HEMATOLOGY Eosinophils 3.7 0.0 - 4.0 10/30 [facility] HEMATOLOGY Lymphocytes 41.4 20.0 - 10/30 [place] 40.0 /2014 [facility] HEMATOLOGY Basophils 0.4 0.0 - 1.0 10/30 [facility] HEMATOLOGY Monocytes 5.1 2.0 - 12.0 10/30 /2014 [facility] HEMATOLOGY MCH 29.4 27.0 - 10/30 [place] 31.0 /2014 [facility] HEMATOLOGY Hct 27.5 36.0 - 10/30 [place] 48.0 /2014 [facility] HEMATOLOGY RDW 16.3 11.5 - 10/30 [place] 14.5 /2014 [facility] HEMATOLOGY Platelet 137 133 - 450 10/30 [facility] HEMATOLOGY MPV 8.4 7.4 - 10.4 10/30 [facility] HEMATOLOGY Hgb 9.1 12.0 - 10/30 [place] 16.0 /2014 [facility] HEMATOLOGY MCHC 33.0 32.0 - 10/30 [place] 36.0 /2014 [facility] HEMATOLOGY RBC 3.09 4.20 - 10/30 [place] 5.40 /2014 [facility] HEMATOLOGY WBC 11.8 3.7 - 10.4 10/30 [facility] HEMATOLOGY MCV 89.0 80.0 - 10/30 [place] 98.0 /2014 [facility] HEMATOLOGY PT 13.5 12.0 - 10/30 [place] 14.7 /2014 [facility] HEMATOLOGY INR 1.03 0.85 - 10/30 [...] Ca Norm WB 1.10 1.05 - 10/30 [facility] PROFILE 1. [facility] PARATHYROID Ca Ion WB 1.11 1.05 - 10/30 [facility] PROFILE . [facility] CARDIAC Total CK 49 12 - 191 10/30 [facility] ENZYMES [facility] CARDIAC Troponin-T <0.010 0.000 - 10/30 [place] ENZYMES 0.100 /2014 [facility] CARDIAC Troponin-I 0.02 0.00 - 10/30 [place] ENZYMES 0.40 /2014 [facility] HEMATOLOGY Eosinophils # 0.2 0.0 - 0.5 10/30 [place] [facility] HEMATOLOGY Monocytes # 0.3 0.0 - 0.8 10/30 a s [facility] HEMATOLOGY Basophils 0.4 0.0 - 1.0 10/30 [facility] HEMATOLOGY Segs-Bands # 3.2 1.5 - 8.1 10/30 [facility] HEMATOLOGY Lymphocytes # 2.3 1.0 - 5.5 10/30 [place] [facility] HEMATOLOGY Monocytes 4.8 2.0 - 12.0 10/30 [facility] HEMATOLOGY Eosinophils 3.1 0.0 - 4.0 10/30 a s [facility] HEMATOLOGY Segs 53.2 45.0 - 10/30 [place] 75.0 [facility] HEMATOLOGY Lymphocytes 38.5 20.0 - 10/30 [place] 40.0 [facility] HEMATOLOGY Hct 14.9 36.0 - 10/30 <sup>15</sup> [place] 48.0 /2014 Result Medical Comment: Center Critical Result(s) called to Cadence Solano at 10/30/2014 01:18 byJw. Read back OK. HEMATOLOGY MCHC 32.8 32.0 - 10/30 [place] 36.0 /2014 [facility] HEMATOLOGY MCH 30.3 27.0 - 10/30 [place] 31.0 /2014 [facility] HEMATOLOGY MCV 92.2 80.0 - 10/30 [place] 98.0 /2015 [facility] HEMATOLOGY RDW 16.3 11.5 - 10/30 [place] 14.5 /2014 [facility] HEMATOLOGY Hgb 4.9 12.0 - 10/30 <sup>14</sup> [place] 16.0 /2014 Result Medical Comment: Center Critical Result(s) called to Cadence Solano at 10/30/2014 01:18 byJw. Read back OK. HEMATOLOGY RBC 1.61 4.20 - 10/30 [place] 5.40 /2014 [facility] HEMATOLOGY WBC 6.0 3.7 - 10.4 10/30 [facility] HEMATOLOGY MPV 8.1 7.4 - 10.4 10/30 [facility] HEMATOLOGY Platelet 73 133 - 450 10/30 [facility] PARATHYROID Ca Norm WB 0.63 1.05 - 10/30 [place] PROFILE 09.11 [facility] PARATHYROID Ca Ion WB 0.62 1.05 - 10/30 <sup>7</sup>[place] PROFILE 09.11 esult Medical Comment: Center Critical Result(s) called to della pal at 10/30/2014 01:05 frida. Read back OK. CARDIAC Troponin-I <0.02 0.00 - 10/29 [facility] ENZYMES 0.40 /2014 [facility] CARDIAC Troponin-T <0.010 0.000 - 10/29 [facility] ENZYMES 0.100 /2014 [facility] CARDIAC Total CK 83 12 - 191 10/29 [facility] ENZYMES /2014 [facility] CARDIAC CK MB Index 0.7 0.0 - 2.5 10/29 [facility] ENZYMES /2014 [facility] CARDIAC CK MB 0.6 0.5 - 3.6 10/29 [facility] ENZYMES /2014 [facility] TOXICOLOGY Vanco Tr TND 0000 10/29 [facility] TOXICOLOGY Vanco Tr 23.9 10/29 <sup>10</sup> [facility] Interpretive Medical Data: Center Therapeutic Range:
Trough: 10 - 20 ug/mL
Peak: 20 - 40 ug/mL
Potential Toxicity: >80 ug/mL CHEM PANEL Lactic Acid 0.7 0.5 - 2.2 10/29 [place] [facility] CHEM PANEL Magnesium Lvl 1.8 1.8 - 2.4 10/29 [place] [facility] CHEM PANEL Phosphorus 2.8 2.5 - 4.5 10/29 [facility] ELECTROLYTE AGAP 11.0 10.0 - 10/29 [facility] S 20.0 [facility] ELECTROLYTE BUN 10 7 - 22 10/29 [facility] S [facility] ELECTROLYTE Glucose Lvl 83 70 - 99 10/29 <sup>6</sup>I nterpretive Medical Data: Adult Center reference range values reflect the clinical guidelines
of the [place] [employer]. ELECTROLYTE Sodium Lvl 145 135 - 145 10/29 [facility] ELECTROLYTE Creatinine 0.7 0.5 - 1.4 10/29 [facility] [address] s S l [facility] ELECTROLYTE eGFR 101 10/29 <sup>3</sup>R [facility] community health Medical Comment: The Center eGFR is calculated [...] ELECTROLYTE CO2 24 24 - 32 10/29 [facility] ELECTROLYTE Calcium Lvl 7.9 8.5 - 10.5 10/29 [place] [facility] ELECTROLYTE Chloride Lvl 114 95 - 109 10/29 [facility] ELECTROLYTE Potassium Lvl 4.0 3.5 - 5.1 10/29 [place] [facility] HEMATOLOGY Basophils # 0.1 0.0 - 0.2 10/29 [facility] [address] 2014 [facility] TOXICOLOGY Vanco Tr TND 10/30 830 10/28 [facility] [address] [facility] TOXICOLOGY Vanco Tr 9.7 10/28 <sup>11</sup> [facility] Interpretive Medical Data: Center Therapeutic Range:
Trough: 10 - 20 ug/mL
Peak: 20 - 40 ug/mL
Potential Toxicity: >80 ug/mL HEMATOLOGY Pat Od Value 0.046 10/28 [facility] HEMATOLOGY Pos CO Value 0.392 10/[address] HEMATOLOGY Heparin Negative Negative 10/28 [facility] Ab(REGI) (10/28/14 6:00 AM) /2014 [facility] CHEM PANEL Lactic Acid 1.0 0.5 - 2.2 10/27 [place] /2014 [facility] IMMUNOLOGY C-REACTIVE 24.4 <=2.9 mg/L 10/27 [place] PROTEIN /2014 [facility] THYROID TSH 0.120 0.360 - 10/27 [facility] PANEL 3.740 /2014 [facility] THYROID T4 Free 0.96 0.76 - 10/27 [facility] PANEL 1.46 /2014 [facility] CHEM PANEL Lactic Acid 1.6 0.5 - 2.2 10/27 [place] /2014 [facility] HEMATOLOGY RBC Morph Normal 10/27 [facility] (10/27/14 2:00 AM) /2014 [facility] HEMATOLOGY Plt Morph Normal 10/27 [facility] (10/27/14 2:00 AM) /2014 [facility] HEMATOLOGY Sed Rate 28 0 - 20 10/27 [facility] TOXICOLOGY Cyanide Lvl <0.1 <0.1 mg/L 10/26 <sup>12</sup> M H Result Medical Comment: Test Center Performed at:
[facility] [place]<br/ >Beatty [place], [facility] Scarlett Howe
[place], [place] K Vijay [facility] TOXICOLOGY Cyanide Lvl <0.1 <0.1 mg/L 10/26 <sup>13</sup> M H Result Medical Comment: Test Center Performed at:
[facility] [place]<br/ >Rogerio Rojas [id number]
[place], [place] [facility] BLOOD BANK Antibody Scrn Negative 10/26 [facility] as RESULTS (10/26/14 4:24 PM) /2014 [facility] BLOOD BANK ABO/Rh O POS 10/26 [facility] RESULTS /2014 [facility] CHEM PANEL Lipase Lvl 70 73 - 393 10/26 [facility] CHEM PANEL Procalcitonin 0.15 0.00 - 10/26 [place] 0.10 /2014 [facility] HEMATOLOGY Fibrinogen 348 230 - 510 10/26 [facility] Lvl /2014 [facility] HEMATOLOGY D-Dimer 0.21 10/26 <sup>19</sup> Interpretive [...] DVT/PE. IMMUNOLOGY C-REACTIVE 29.2 <=2.9 mg/L 10/26 [facility] [address] s PROTEIN [facility] CARDIAC Troponin-T <0.010 0.000 - 10/26 [facility] ENZYMES 0.100 /2014 [facility] CARDIAC Troponin-I 0.02 0.00 - 10/26 [facility] ENZYMES 0.40 [facility] CHEM PANEL Procalcitonin 0.14 0.00 - 10/26 [facility] [address] s Lvl 0.10 [facility] HEMATOLOGY RBC Morph Normal 10/26 [facility] (10/26/14 1:30 PM) [facility] HEMATOLOGY Plt Morph Normal 10/26 [facility] (10/26/14 1:30 PM) /2014 [facility] HEMATOLOGY Atypical 0.0 <=0.0 % 10/26 [facility] Lymph [facility] HEMATOLOGY Bands 1.0 0.0 - 11.0 10/[address] CHEM PANEL Bili Indirect 0.1 0.0 - 1.0 10/26 [facility] CHEM PANEL Bili Total 0.2 0.2 - 1.3 10/26 [facility] CHEM PANEL Bili Direct 0.1 0.0 - 0.3 10/26 [facility] CHEM PANEL AST 11 0 - 37 10/26 [facility] CHEM PANEL Alk Phos 115 39 - 136 10/26 [facility] CHEM PANEL Albumin Lvl 2.9 3.5 - 5.0 10/26 [facility] [address] s 2014 [facility] CHEM PANEL Globulin 3.2 2.0 - 4.0 10/[address] CHEM PANEL Total Protein 6.1 6.4 - 8.4 10/26 [facility] CHEM PANEL ALT 23 0 - 65 10/26 [facility] CHEM PANEL A/G Ratio 0.9 0.7 - 1.6 10/26 [facility] HEMATOLOGY Basophils # 0.1 0.0 - 0.2 10/26 a s [facility] CHEM PANEL Procalcitonin 0.05 0.00 - 10/26 [place] 0.10 [facility] DRUG SCREEN U Opiate Scr Negative Negative 10/26 [place] (10/26/14 1:40 AM) /[facility] Cannab Scr Negative Negative [place]/26 [place] (10/26/14 1:40 AM) /2014 [facility] U Cocaine Scr Negative Negative 10/26 [place] (10/26/14 1:40 AM) /2014 [facility] U Benzodia Positive Negative 10/26 [facility] [address] s Scr *ABN* /2014 [facility] (10/26/14 1:40 AM) Center DRUG SCREEN U Phencyc Scr Negative Negative 10/26 [place] (10/26/14 1:40 AM) /2014 [facility] DRUG SCREEN UDS Note See Note 8 10/26 <sup>8</sup>I [facility] (10/26/14 1:40 AM) nterpretive Ma dical Data: Drugs Center reported as positive have not been confirmed by a second
ri thod and should be used for medical [...] SCREEN U Amph Scr Negative Negative 10/26 [facility] s (10/26/14 1:40 AM) /2014 [facility] DRUG SCREEN U Starla Scr Negative Negative 10/26 [facility] s (10/26/14 1:40 AM) /2014 [facility] URINE AND UA Glucose Negative Negative 10/26 [facility] STOOL (10/26/14 1:40 AM) /2014 [facility] URINE AND UA Protein Negative Negative 10/26 [facility] (10/26/14 1:40 AM) /2014 [facility] URINE AND UA Ketones Negative Negative 10/26 [facility] (10/26/14 1:40 AM) /2014 [facility] URINE AND UA Renal Epi 5 <=0 /LPF 10/26 [facility] /2014 [facility] URINE AND UA Mucus Few /LPF None Seen 10/26 [facility] STOOL /LPF /2014 [facility] URINE AND UA Sq Epi Moderate Few /LPF 10/26 [facility] /LPF /2014 [facility] URINE AND UA Hyal Cast 28 0 - 2 10/26 [facility] /2014 [facility] URINE AND UA Blood Negative Negative 10/26 [facility] (10/26/14 1:40 AM) [facility] URINE AND UA Bili Negative Negative 10/26 [facility] (10/26/14 1:40 AM) /2014 [facility] URINE AND UA Nitrite Negative Negative 10/26 [facility] (10/26/14 1:40 AM) [facility] URINE AND UA <=1.0 0.1 - 1.0 10/26 [facility] Urobilinogen /2014 [facility] URINE AND UA Leuk Est Negative Negative 10/26 [facility] (10/26/14 1:40 AM) [facility] URINE AND UA Spec Grav 1.009 <=1.030 10/26 [facility] /[address] [place] [address] URINE AND UA Turbidity Slight Clear 10/26 [facility] *ABN* /2014 [facility] (10/26/14 1:40 AM) [facility] URINE AND UA Color Yellow Yellow 10/26 [facility] (10/26/14 1:40 AM) Medica l [facility] URINE AND UA pH 5.0 5.0 - 8.0 10/26 [facility] STOOL /2014 [facility] HEMATOLOGY Angle 76.5 53.0 - 10/26 [facility] 72.0 [facility] HEMATOLOGY Max Amp 74.1 50.0 - 10/26 [facility] 70.0 [facility] HEMATOLOGY G-value 14.3 4.5 - 11.0 10/26 [facility] /2014 [facility] HEMATOLOGY TEG Data See Note 23 10/26 <sup>23</sup> [facility] (10/25/14 9:45 PM) Interpretive M edical [...] HEMATOLOGY Coag Index 3.4 -3.0-3.0 - 10/26 [facility] [address] s 3.0 [facility] HEMATOLOGY K-time 1.0 1.0 - 3.0 10/26 [facility] HEMATOLOGY R-time 5.1 5.0 - 10.0 10/26 [facility] HEMATOLOGY Ly30 0.9 0.0 - 7.5 10/26 [facility] HEMATOLOGY TEG Interp Thrombelas 10/26 [facility] tograph [facility] show increased values of both Angle Alpha and MA. These findings are suggestive of platelet hypercoagu lation. CPT:38873 LIPIDS VLDL 35 10/26 [facility] LIPIDS LDL 60 <=99 mg/dL 10/26 [facility] (Calculated) [facility] LIPIDS CHD Risk 2.76 3.90 - 10/26 [facility] 5.80 [facility] LIPIDS HDL 54 >=61 mg/dL 10/26 [facility] LIPIDS Trig 173 <=149 10/26 [facility] mg/dL [facility] LIPIDS Chol 149 <=199 10/26 [facility] mg/dL [facility] SPECIAL Hgb A1C 5.7 <=5.6 % 10/26 [facility] CHEMISTRY [facility] CHEM PANEL Phosphorus 3.7 2.5 - 4.5 11/14 [facility] CHEM PANEL Magnesium Lvl 1.7 1.8 - 2.4 11/14 [place] [facility] ELECTROLYTE AGAP 13.6 10.0 - 11/14 [facility] S 20.0 [facility] ELECTROLYTE eGFR 87 11/14 <sup>1</sup>R [facility] as S community health Medical Comment: The Center eGFR is calculated [...] ELECTROLYTE BUN 23 7 - 22 11/14 [facility] ELECTROLYTE Glucose Lvl 70 70 - 99 11/14 <sup>3</sup>I [facility] nterpretive Medical Data: [facility] Center reference range values reflect the clinical guidelines
of the [place] [employer]. ELECTROLYTE Creatinine 0.8 0.5 - 1.4 11/14 [facility] [address] s S Lvl [facility] ELECTROLYTE Sodium Lvl 140 135 - 145 11/14 [facility] S [facility] ELECTROLYTE Potassium Lvl 4.6 3.5 - 5.1 11/14 [place] [facility] ELECTROLYTE Chloride Lvl 107 95 - 109 11/14 [facility] ELECTROLYTE CO2 24 24 - 32 11/14 [facility] ELECTROLYTE Calcium Lvl 8.8 8.5 - 10.5 11/14 [place] [facility] HEMATOLOGY INR 1.97 0.85 - 11/14 <sup>6</sup>I [facility] [address] s 1.17 nterpretive Medical Data: Center RECOMMENDED RANGES FOR PROTIME INR:
2.0-3.0 for most medical and surgical thromboemboli c states.
2.5-3.5 for artificial heart valves and recurrent embolism.<br/ >
INR SHOULD BE USED ONLY FOR PATIENTS ON STABLE ANTICOAGULANT THERAPY. HEMATOLOGY PT 22.1 12.0 - 11/14 [facility] 14.7 [facility] LIPIDS LDL 93 <=99 mg/dL 11/14 [facility] (Calculated) [facility] LIPIDS VLDL 66 11/14 [facility] LIPIDS Trig 330 <=149 11/14 [facility] mg/dL [facility] LIPIDS Chol 197 <=199 11/14 [facility] mg/dL [facility] LIPIDS HDL 38 >=61 mg/dL 11/14 [facility] LIPIDS CHD Risk 5.18 3.90 - 11/14 [facility] 5.80 /2013 [facility] DRUG SCREEN U Phencyc Scr Positive Negative 11/14 [place] *ABN* [facility] (11/13/2013 20:09:21 [facility]) Center DRUG SCREEN UDS Note See Note 5 11/14 <sup>5</sup>I [facility] (11/13/2013 20:09:21 [facility]) nterpretive Medical Data: Drugs Center reported as [...] [place] *NA* /2013 Medical (11/13/2013 20:09:21 [facility]) Center DRUG SCREEN U Benzodia Positive Negative 11/14 [place] Scr *ABN* Medical (11/13/2013 20:09:21 [facility]) Center DRUG SCREEN U Opiate Scr Positive Negative 11/14 [place] *ABN* /2013 Medical (11/13/2013 20:09:21 [facility]) Center DRUG SCREEN U Cocaine Scr Negative Negative 11/14 [place] *NA* Medical (11/13/2013 20:09:21 [facility]) Center DRUG SCREEN U Cannab Scr Negative Negative 11/14 [place] *NA* Medical (11/13/2013 20:09:21 [facility]) Center DRUG SCREEN U Amph Scr Negative Negative 11/14 [place] *NA* Medical (11/13/2013 20:09:21 [facility]) Center DRUG SCREEN U Methadone Negative Negative 11/14 [place] Scr *NA* Medical (11/13/2013 20:09:21 [facility]) Center DRUG SCREEN U Propoxyph Negative Negative 11/14 [place]r *NA* Medical (11/13/2013 20:09:21 [facility]) Center URINE AND UA Hyal Cast 2 0 - 2 11/14 [facility] /2013 [facility] URINE AND UA <=1.0 0.1 - 1.0 11/14 [facility] Urobilinogen mg/dL /2013 Medical [facility] URINE AND UA Turbidity Slight Clear 11/14 [facility] STOOL *ABN* Medical (11/13/2013 20:09:00 [facility] URINE AND UA Color Yellow Yellow 11/14 [facility] *NA* Medical (11/13/2013 20:09:00 [place] URINE AND UA pH 6.5 5.0 - 8.0 11/14 [facility] STOOL /2013 [facility] URINE AND UA Spec Grav 1.024 <=1.030 11/14 [facility] STOOL Medical [facility] URINE AND UA Protein 20 mg/dL Negative 11/14 [facility] STOOL mg/dL Medical Center URINE AND UA Ketones Negative Negative 11/14 [facility] STOOL mg/dL mg/dL Medical [facility] URINE AND UA Glucose Negative Negative 11/14 [facility] STOOL mg/dL mg/dL Medical [facility] URINE AND UA Blood Negative Negative 11/14 [facility] (11/13/2013 20:09:00 [facility]) /2013 Medical Center URINE AND UA Bili Negative Negative 11/14 [facility] STOOL *NA* /2013 Medical (11/13/2013 20:09:00 [facility]) Center URINE AND UA Leuk Est Small Negative 11/14 [facility] STOOL *ABN* Medical (11/13/2013 20:09:00 [facility]) Center URINE AND UA Nitrite Negative Negative 11/14 [facility] (11/13/2013 20:09:00 [facility] Medical Center URINE AND UA WBC 3 0 - 5 11/14 [facility] STOOL [facility] URINE AND UA Sq Epi Many /LPF Few /LPF 11/14 [facility] STOOL Medical Center URINE AND UA Bacteria Occasional None Seen 11/14 [place] STOOL /HPF /HPF /2013 Medical [facility] URINE AND UA RBC 1 0 - 2 11/14 [facility] STOOL [facility] URINE AND UA Amorph Occasional None Seen 11/14 [place] ST[place] /HPF /HPF /2013 Medical Center URINE AND UA Mucus Few /LPF None Seen 11/14 [facility] STOOL /LPF /2013 Medical Center URINE CHEM U Preg Negative Negative 11/14 [facility] (11/13/2013 20:09:00 [facility]) /2013 Medical Center CARDIAC Troponin-T <0.010 0.000 - 11/13 [facility] ENZYMES 0.100 [facility] CARDIAC Troponin-I <0.02 0.00 - 11/13 [place] ENZYMES 0.40 [facility] CARDIAC Total CK 107 12 - 191 11/13 [facility] CARDIAC CK MB Index 0.5 0.0 - 2.5 11/13 [place] [facility] CARDIAC CK MB 0.5 0.5 - 3.6 11/13 [place] [facility] CHEM PANEL Bili Indirect 0.1 0.0 - 1.0 11/13 [place] [facility] CHEM PANEL Bili Total 0.2 0.2 - 1.3 11/13 [facility] CHEM PANEL Bili Direct 0.1 0.0 - 0.3 11/13 [place] [facility] CHEM PANEL AST 24 0 - 37 11/13 [facility] CHEM PANEL A/G Ratio 0.9 0.7 - 1.6 11/13 [facility] CHEM PANEL ALT 40 0 - 65 11/13 [facility] CHEM PANEL Total Protein 6.4 6.4 - 8.4 11/13 [place] [facility] CHEM PANEL Albumin Lvl 3.0 3.5 - 5.0 11/13 [facility] CHEM PANEL Globulin 3.4 2.0 - 4.0 11/13 [facility] CHEM PANEL Alk Phos 118 39 - 136 11/13 [facility] SPECIAL Hgb A1C 5.0 <=5.6 % 11/13 [facility] CARDIAC CK MB Index 0.6 0.0 - 2.5 11/13 [facility] CARDIAC Troponin-I <0.02 0.00 - 11/13 [facility] ENZYMES 0.40 [facility] CARDIAC CK MB 0.6 0.5 - 3.6 11/13 [facility] CARDIAC Total CK 108 12 - 191 11/13 [facility] CHEM PANEL eGFR 75 11/13 <sup>2</sup>R [...] PANEL AGAP 13.1 10.0 - 11/13 20. [facility] CHEM PANEL CO2 26 24 - 32 11/13 [facility] CHEM PANEL Chloride Lvl 106 95 - 109 11/13 [facility] CHEM PANEL Calcium Lvl 8.6 8.5 - 10.5 11/13 [facility] CHEM PANEL Creatinine 0.9 0.5 - 1.4 11/13 [facility] Lvl [facility] CHEM PANEL BUN 12 7 - 22 11/13 [facility] CHEM PANEL Potassium Lvl 4.1 3.5 - 5.1 11/13 [facility] CHEM PANEL Sodium Lvl 141 135 - 145 11/13 [facility] CHEM PANEL Glucose Lvl 81 70 - 99 11/13 <sup>4</sup>I nterpretive Medical Data: Adult Center reference range values reflect the clinical guidelines
of the [place] [employer]. HEMATOLOGY Monocytes 4.1 2.0 - 12.0 11/13 [facility] HEMATOLOGY Eosinophils 1.4 0.0 - 4.0 11/13 [facility] HEMATOLOGY Basophils 0.0 0.0 - 1.0 11/13 [facility] HEMATOLOGY Segs-Bands # 4.7 1.5 - 8.1 11/13 [facility] HEMATOLOGY Lymphocytes # 6.0 1.0 - 5.5 11/13 [facility] HEMATOLOGY Monocytes # 0.5 0.0 - 0.8 11/13 [facility] HEMATOLOGY Segs 41.0 45.0 - 11/13 75.0 [facility] HEMATOLOGY Lymphocytes 53.5 20.0 - 11/13 40.0 [facility] HEMATOLOGY Eosinophils # 0.2 0.0 - 0.5 11/13 [facility] HEMATOLOGY Basophils # 0.0 0.0 - 0.2 11/13 [facility] HEMATOLOGY PT 24.2 12.0 - 11/13 14.7 [facility] HEMATOLOGY INR 2.22 0.85 - 11/13 <sup>7</sup>I [facility] 1.17 nterpretive Medical Data: Center RECOMMENDED [...] HEMATOLOGY Platelet 486 133 - 450 11/13 [facility] HEMATOLOGY RDW 17.1 11.5 - 11/13 [place] 14.5 /2013 [facility] HEMATOLOGY MPV 7.0 7.4 - 10.4 11/13 [facility] HEMATOLOGY MCHC 33.7 32.0 - 11/13 [place] 36.0 [facility] HEMATOLOGY MCH 28.2 27.0 - 11/13 [place] 31.0 [facility] HEMATOLOGY RBC 4.35 4.20 - 11/13 [facility] 5.40 /2013 [facility] HEMATOLOGY WBC 11.4 3.7 - 10.4 11/13 [facility] HEMATOLOGY MCV 83.7 81.0 - 11/13 [facility] 99.0 /2013 [facility] HEMATOLOGY Hgb 12.3 12.0 - 11/13 16.0 [facility] HEMATOLOGY Hct 36.4 36.0 - 11/13 [facility] 48.0 [facility] CHEMISTRY AGAP 15.8 10.0 - 05/12 Normal [facility] 20. [facility] CHEMISTRY eGFR 136 05/12 NA <sup>5</sup>R [...] 7.7 8.5 - 10.5 05/12 LOW a [facility] CHEMISTRY BUN 5 7 - 22 05/12 LOW [facility] CHEMISTRY Glucose Lvl 72 70 - 99 05/12 Normal <sup>8</sup>I MH T ex nterpretive Medical Data: Adult Center reference range values reflect the clinical guidelines
of the [place] [employer]. CHEMISTRY Chloride Lvl 107 95 - 109 05/12 Normal [facility] CHEMISTRY Potassium Lvl 3.8 3.5 - 5.1 05/12 Normal [facility] HEMATOLOGY Segs-Bands # 7.8 1.5 - 8.1 05/12 Normal [facility] HEMATOLOGY Lymphocytes # 3.5 1.0 - 5.5 05/12 Normal [place] [facility] HEMATOLOGY Monocytes # 0.9 0.0 - 0.8 05/12 HI a [facility] HEMATOLOGY Eosinophils # 0.3 0.0 - 0.5 05/12 Normal Te [facility] HEMATOLOGY Basophils # 0.1 0.0 - 0.2 05/12 Normal [facility] HEMATOLOGY Monocytes 7.4 2.0 - 12.0 05/12 Normal [facility] HEMATOLOGY Basophils 0.7 0.0 - 1.0 05/12 Normal [facility] HEMATOLOGY Lymphocytes 27.8 20.0 - 05/12 [...] MPV 7.7 7.4 - 10.4 05/12 Normal [facility] HEMATOLOGY WBC 12.8 3.7 - 10.4 05/12 HI [facility] HEMATOLOGY RBC 3.82 4.20 - 05/12 LOW [facility] 5.40 /2012 [facility] HEMATOLOGY Hgb 11.0 12.0 - 05/12 LOW [facility] 16.0 /2012 [facility] HEMATOLOGY Hct 33.8 36.0 - 05/12 LOW [facility] 48.0 /2012 [facility] HEMATOLOGY MCH 28.8 27.0 - 05/12 Normal [facility] 31.0 /2012 [facility] BEDSIDE Gluc POC 89 70 - 99 05/11 Normal <sup>2</sup>I [facility] GLUCOSE nterpretive Medical TESTING Data: Center Upper Reportable Limit: 200 mg/dL. CHEMISTRY Opiate Scr Negative Negative 05/11 Normal [facility] (05/11/2013 02:00:00) [facility]ical Center CHEMISTRY PCP Scr Negative Negative 05/11 Normal [facility] (05/11/2013 02:00:00) [facility] CHEMISTRY Propoxyphn Negative Negative 05/11 Normal [facility] Scr (05/11/2013 02:00:00) [facility]ical Center CHEMISTRY Cocaine Scr Negative Negative 05/11 Normal [facility] (05/11/2013 02:00:00) Ma [facility]ical Center CHEMISTRY Methadone Scr Positive Negative 05/11 ABN [place] as *ABN* /2012 Medical (05/11/2013 02:00:00) Ce nter CHEMISTRY Cutoff Values See Note 12 05/11 Normal <sup>12</sup > [facility] (05/11/2013 02:00:00) Interpreti ve Medical Data: Cutoff Center (lowest detectable by EIA) values for Serum Drugscreen:<b r/> THC and PCP: 1 ng/mL
All others: 20 ng/mL

Cutoff (lowest detectable by GC/MS) value for confirmation:
THC and PCP: 1 ng/mL
Benzodiazepi rebecca: 5 ng/ml
All others: 10 ng/ml

Test performed by [facility]
[address]
[place] [address] CHEMISTRY Starla Scr Negative Negative 05/11 Normal [facility] (05/11/2013 02:00:00) [facility] dicne Center CHEMISTRY Benzodiaz Scr Negative Negative 05/11 Normal [place] as [facility]11[facility]2013 [facility]:00:00[facility] Cannab Scr Negative Negative 05/11 Normal [facility] (05/11/2013 02:00:00) [facility]ne Center CHEMISTRY Amph Scr Negative Negative 05/11 Normal [facility] (05/11/2013 02:00:00) [facility] CHEMISTRY Ca Ion WB 1.09 1.05 - 05/11 Normal [place] 1. [facility] CHEMISTRY Ca Norm WB 1.07 1.05 - 05/11 Normal [facility] . [facility] CHEMISTRY Magnesium Lvl 2.0 1.8 - 2.4 05/11 Normal [place] [facility] CHEMISTRY Phosphorus 2.6 2.5 - 4.5 05/11 Normal [facility] CHEMISTRY eGFR 108 05/11 NA <sup>6</sup>R [...] - 10.5 05/11 [place] [facility] CHEMISTRY AGAP 17.7 10.0 - 05/11 Normal [place] 20.0 [facility] CHEMISTRY BUN 7 7 - 22 05/11 [facility] CHEMISTRY Glucose Lvl 59 70 - 99 05/11 LOW <sup>9</sup>[place] nterpretive Medical Data: Adult Center reference range values reflect the clinical guidelines
of the [place] [employer]. CHEMISTRY Creatinine 0.6 0.5 - 1.4 05/11 Normal [facility] CHEMISTRY Sodium Lvl 141 135 - 145 05/11 Normal [facility] CHEMISTRY Potassium Lvl 3.7 3.5 - 5.1 05/11 Normal [facility] CHEMISTRY Chloride Lvl 106 95 - 109 05/11 Normal [facility] CHEMISTRY CO2 21 24 - 32 05/11 LOW [facility] CHEMISTRY Methadone Qnt See Note 13 05/11 Normal <sup>13</sup > [facility] (05/11/2013 02:00:00) Result Me dical Comment: Center Methadone: 158 ng/mL
LOS P: 41 ng/mL HEMATOLOGY WBC 17.2 3.7 - 10.4 05/11 [facility] HEMATOLOGY Platelet 203 133 - 450 05/11 Normal [facility] HEMATOLOGY MPV 8.7 7.4 - 10.4 05/11 Normal [facility] HEMATOLOGY MCV 88.4 81.0 - 05/11 Normal [facility] 99.0 Medical Center HEMATOLOGY MCH 29.4 27.0 - 05/11 Normal [place] 31.0 Medical Center HEMATOLOGY RDW 15.3 11.5 - 05/11 [facility] [place] 14.5 Medical Center HEMATOLOGY MCHC 33.2 32.0 - 05/11 Normal [place] 36.0 Medical Center HEMATOLOGY RBC 3.75 4.20 - 05/11 LOW [place] 5.40 /2012 Medical Center HEMATOLOGY Hgb 11.0 12.0 - 05/11 LOW [place] 16.0 /2012 Medical Center HEMATOLOGY Hct 33.1 36.0 - 05/11 [facility] [place] 48.0 Medical Center HEMATOLOGY Monocytes 4.4 2.0 - 12.0 05/11 Normal Medical [facility] HEMATOLOGY Segs 77.7 45.0 - 05/11 [facility] [place] 75.0 /2012 Medical Center HEMATOLOGY Monocytes # 0.8 0.0 - 0.8 05/11 [place] [facility] [place] HEMATOLOGY Segs-Bands # 13.4 1.5 - 8.1 05/11 [place] [facility] HEMATOLOGY Lymphocytes # 2.7 1.0 - 5.5 05/11 [place] [facility] HEMATOLOGY Basophils 0.8 0.0 - 1.0 05/11 Normal [facility] HEMATOLOGY Eosinophils 1.5 0.0 - 4.0 05/11 [place] [facility] HEMATOLOGY Lymphocytes 15.6 20.0 - 05/11 LOW [place] 40.0 Medical Center HEMATOLOGY Basophils # 0.1 0.0 - 0.2 05/11 [place] [facility] HEMATOLOGY Eosinophils # 0.3 0.0 - 0.5 05/11 [place] [facility] BEDSIDE Gluc POC Notify 05/11 NA [facility] GLUCOSE Comment 1 RN/MD /2012 Medical TESTING Center BEDSIDE Gluc POC 79 70 - 99 05/11 Normal <sup>3</sup>I [facility] GLUCOSE nterpretive Medical TESTING Data: Center Upper Reportable Limit: 200 mg/dL. HEMATOLOGY Fibrinogen 814 230 - 510 05/10 [facility] Lvl Medical Center HEMATOLOGY Plt Neut Test negative 05/10 [facility] as Platelet /2012 Medical Neutraliza Center tion procedure HEMATOLOGY Lup Interp Negative 05/10 [facility] for lupus Medical anticoagul Center ant (normal dRVVT, positive hexagonal phospholip id neutraliza tion, and negative Platelet Neutraliza tion procedure) . Thrombin Time is normal (16.7 sec) which rules out heparin as interferen ce substance. CPT: 01913 HEMATOLOGY Hex Phos N Positive Negative 05/10 Normal [facility] (05/10/2013 18:12:00) /2012 Ma dical Center HEMATOLOGY dRVV 1.06 <=1.20 05/10 Normal [facility] HEMATOLOGY AT III Func 70 77 - 140 05/10 LOW [facility] HEMATOLOGY Sed Rate >100 mm/hr 0 - 20 05/10 ABN [facility] *ABN* /2012 Medical (05/10/2013 18:12:00) Ce nter HEMATOLOGY Protein S 35 54 - 137 05/10 LOW [facility] Func [facility] HEMATOLOGY Protein C 68 72 - 147 05/10 LOW [facility] Func Medical Center IMMUNOLOGY Cardiolipin 1 05/10 NA <sup>16</sup> [facility] IgA Interpretive Medical Data: Center Reference Ranges for IgA:
0-11 APL Negative
12-20 APL Inconclusive< br/>21-80 APL Low-Med Positive
> 80 APL Strong Positive IMMUNOLOGY Cardiolipin 1 05/10 NA <sup>17</sup> [facility] IgG Interpretive Medical Data: Center Reference Ranges for IgG:
0-14 GPL Negative
15-20 GPL Inconclusive< br/>21-80 GPL Low-Med Positive
> 80 GPL Strong Positive IMMUNOLOGY Cardiolipin 5.2 05/10 NA <sup>18</sup> [facility] IgM Interpretive Medical Data: Center Reference [...] Ag Negative 1 Negative 05/10 Normal <sup>1</sup>I [facility] - SEROLOGY (05/10/2013 16:41:00) /2012 nterpre tive Medical Data: This Center kit tests for Legionella pneumophila Serogroup 1 Antigen. BEDSIDE Gluc POC 96 70 - 99 05/10 Normal <sup>4</sup>I [facility] GLUCOSE nterpretive Medical TESTING Data: Center Upper Reportable Limit: 200 mg/dL. BEDSIDE Gluc POC Notify 05/10 [facility] GLUCOSE Comment 1 RN/MD /2012 Medical TESTING Center URINALYSIS UA Renal Epi 8 <=0 05/10 [facility] URINALYSIS UA Mucus Few /LPF None Seen 05/10 [facility] *NA* Medical (05/10/2013 09:50:39) Ce nter URINALYSIS UA RBC <1 0 - 2 05/10 Normal [facility] URINALYSIS UA Sq Epi Few /LPF Few 05/10 NA *NA* Medical (05/10/2013 09:50:39) Ce nter URINALYSIS UA WBC <1 0 - 5 05/10 Normal [facility] URINALYSIS UA Leuk Est Negative Negative 05/10 [place] (05/10/2013 09:50:39) /2012 Ma dicne Center URINALYSIS UA Nitrite Negative Negative 05/10 Normal [facility] (05/10/2013 09:50:39) Ma dicne Center URINALYSIS UA Blood Negative Negative 05/10 Normal [facility] (05/10/2013 09:50:39) [facility] UA Glucose Negative mg/dL Negative 05/10 NA [facility] *NA* [facility] (05/10/2013 09:50:39) Ce nter URINALYSIS UA Bili Negative Negative 05/10 NA [facility] *NA* Medical (05/10/2013 09:50:39) Ce nter URINALYSIS UA 0.1 - 1.0 05/10 NA [facility] Urobilinogen [facility] URINALYSIS UA Ketones TR 05/10 NA [facility] URINALYSIS UA Spec Grav 1.006 <=1.030 05/10 Normal [facility] URINALYSIS UA Turbidity Clear Clear 05/10 Normal [facility] (05/10/2013 09:50:39) Ma dical Center URINALYSIS UA Color Light Yellow Yellow 05/10 [place] *[place]* Medical (05/10/2013 09:50:39) Ce nter URINALYSIS UA Protein Negative mg/dL Negative 05/10 Normal [facility] (05/10/2013 09:50:39) [facility] UA pH 7.5 5.0 - 8.0 05/10 Normal [facility] CHEMISTRY eGFR 87 05/10 NA <sup>7</sup>R [...] Lvl 140 135 - 145 05/10 Normal [facility] CHEMISTRY AGAP 14.6 10.0 - 05/10 Normal [place] 20.0 Medical Center CHEMISTRY Calcium Lvl 7.8 8.5 - 10.5 05/10 [place] [facility] CHEMISTRY Chloride Lvl 105 95 - 109 05/10 Normal Medical [facility] CHEMISTRY Potassium Lvl 3.6 3.5 - 5.1 05/10 Normal [place] as [facility] CHEMISTRY CO2 24 24 - 32 05/10 Normal Medical [facility] CHEMISTRY Creatinine 0.8 0.5 - 1.4 05/10 Normal [place] Lvl Medical Center CHEMISTRY BUN 7 7 - 22 05/10 Normal [facility] CHEMISTRY Glucose Lvl 51 70 - 99 05/10 LOW <sup>10</sup> T ex Interpretive Medical Data: Adult Center reference range values reflect the clinical guidelines
of the [place] [employer]. CHEMISTRY Magnesium Lvl 1.6 1.8 - 2.4 05/10 LOW [place] [facility] CHEMISTRY Phosphorus 2.2 2.5 - 4.5 05/10 LOW Medical [facility] HEMATOLOGY MCH 29.1 27.0 - 05/10 Normal [place] 31.0 Medical Center HEMATOLOGY Hct 33.8 36.0 - 05/10 LOW [place] 48.0 [facility] HEMATOLOGY MCV 89.2 81.0 - 05/10 Normal [place] 99.0 Medical Center HEMATOLOGY Hgb 11.0 12.0 - 05/10 LOW [place] 16.0 [facility] HEMATOLOGY MPV 8.5 7.4 - 10.4 05/10 Normal [facility] HEMATOLOGY Platelet 202 133 - 450 05/10 Normal [facility] HEMATOLOGY RDW 15.1 11.5 - 05/10 HI [place] 14.5 Medical Center HEMATOLOGY MCHC 32.6 32.0 - 05/10 Normal [place] 36.0 Medical Center HEMATOLOGY RBC 3.79 4.20 - 05/10 LOW [place] 5.40 /2012 Medical Center HEMATOLOGY WBC 22.1 3.7 - 10.4 05/10 HI [place] /2012 Medical Center HEMATOLOGY Basophils # 0.1 0.0 - 0.2 05/10 [place] /[place] [facility] HEMATOLOGY Monocytes # 0.6 0.0 - 0.8 05/10 [place] [facility] HEMATOLOGY Eosinophils # 0.2 0.0 - 0.5 05/10 [place] [facility] HEMATOLOGY Segs 83.0 45.0 - 05/10 HI [place] 75.0 /2012 Medical Center HEMATOLOGY Lymphocytes # 2.9 1.0 - 5.5 05/10 [place] [facility] HEMATOLOGY Segs-Bands # 18.3 1.5 - 8.1 05/10 [place] /2012 [facility] HEMATOLOGY Basophils 0.4 0.0 - 1.0 05/10 Normal [facility] HEMATOLOGY Eosinophils 1.0 0.0 - 4.0 05/10 [place] [facility] HEMATOLOGY Lymphocytes 12.9 20.0 - 05/10 LOW [place] 40.0 /2012 Medical Center HEMATOLOGY Monocytes 2.7 2.0 - 12.0 05/10 Normal [facility] HEMATOLOGY Sed Rate 55 0 - 20 05/09 HI [place] [facility] HEMATOLOGY Fibrinogen 634 230 - 510 05/09 HI [place] Lvl /2012 [facility] IMMUNOLOGY C3 Complement 124 88 - 201 05/09 Normal [place] /2012 [facility] IMMUNOLOGY DNA Ab (DS) Negative Negative 05/09 [place] (05/09/2013 14:56:00) /2012 Ma dical Center IMMUNOLOGY SS-B ([place]) Ab Negative Negative 05/09 Normal [place] as (05/09/2013 14:56:00) Ma dical Center IMMUNOLOGY SS-A (Ro) Ab Negative Negative 05/09 Normal [place] as (05/09/2013 14:56:00) Ma dical Center IMMUNOLOGY CRP, High >190.0 mg/L 15 05/09 Normal <sup>15</sup > [place] Sensitivity (05/09/2013 14:56:00) /2012 Interp retive Medical Data: Low Center Risk: <1.0 mg/L
Aver age Risk: 1.0 - 3.0 mg/L
High Risk: >3.0 mg/L
Infl ammation: >10.0 mg/L IMMUNOLOGY KYLE Negative Negative 05/09 Normal [facility] (05/09/2013 14:56:00) Ma dicne Center IMMUNOLOGY C4 Complement 34 16 - 47 05/09 Normal [facility] CHEMISTRY Phosphorus 2.3 2.5 - 4.5 05/09 LOW [facility] CHEMISTRY Magnesium Lvl 1.4 1.8 - 2.4 05/09 LOW [facility] as /2012 [facility] CHEMISTRY Lactic Acid 1.8 0.5 - 2.2 05/09 Normal [facility] Microbiolog Culture: 05/09 [facility] Blood [facility] Microbiolog Culture: 05/09 [facility] Blood [facility] CHEMISTRY LDL 71 <=99 05/09 Normal [facility] CHEMISTRY HDL 36 >=61 05/09 LOW [facility] CHEMISTRY Trig 126 <=149 05/09 Normal [facility] CHEMISTRY Chol 132 <=199 05/09 Normal [facility] CHEMISTRY CHD Risk 3.67 3.90 - 05/09 LOW [facility] 5.80 [facility] CHEMISTRY Hgb A1C 4.9 <=5.6 05/09 Normal [facility] BEDSIDE Gluc POC Notify 05/09 [facility] GLUCOSE Comment 1 RN/ /2012 [facility] TESTING Center CHEMISTRY U Phencyc Scr Negative Negative 05/09 NA [facility] *NA* /2012 Medical (05/08/2013 19:11:00) Ce nter CHEMISTRY UDS Note See Note 11 05/09 Normal <sup>11</sup> [facility] (05/08/2013 19:11:00) Interpreti ve Medical Data: [...] CHEMISTRY U Benzodia Positive Negative 05/09 ABN [facility] Scr *ABN* Medical (05/08/2013 19:11:00) Ce nter CHEMISTRY U Cannab Scr Negative Negative 05/09 [facility] [place] *[place] Medical (05/08/2013 19:11:00) Ce nter CHEMISTRY U Cocaine Scr Negative Negative 05/09 [facility] [place] as *NA* Medical (05/08/2013 19:11:00) Ce nter CHEMISTRY U Opiate Scr Negative Negative 05/09 [facility] [place] *NA* Medical (05/08/2013 19:11:00) Ce nter CHEMISTRY U Starla Scr Negative Negative 05/09 [facility] *NA* Medical (05/08/2013 19:11:00) Ce nter CHEMISTRY U Amph Scr Negative Negative 05/09 [facility] [place] *NA* Medical (05/08/2013 19:11:00) Ce nter CHEMISTRY AST 54 0 - 37 05/09 [facility] CHEMISTRY Total Protein 5.8 6.4 - 8.4 05/09 LOW [facility] CHEMISTRY Bili Total 0.2 0.2 - 1.3 05/09 Normal [facility] CHEMISTRY Albumin Lvl 2.8 3.5 - 5.0 05/09 LOW [facility] CHEMISTRY Alk Phos 95 39 - 136 05/09 Normal [facility] CHEMISTRY ALT 29 0 - 65 05/09 Normal [facility] CHEMISTRY A/G Ratio 0.9 0.7 - 1.6 05/09 Normal [facility] CHEMISTRY B/C Ratio 15 6 - 25 05/09 Normal [facility] CHEMISTRY Globulin 3.0 2.0 - 4.0 05/09 Normal [facility] URINALYSIS UA 0.1 - 1.0 05/09 NA [facility] Urobilinogen /2012 [facility] URINALYSIS UA Turbidity Slight Clear 05/09 ABN ABN* Medical (05/08/2013 19:11:00) Ce nter URINALYSIS UA Spec Grav 1.013 <=1.030 05/09 Normal [facility] URINALYSIS UA Blood Small Negative 05/09 [facility] Medical (05/08/2013 19:11:00) Ce nter URINALYSIS UA Leuk Est Negative Negative 05/09 Normal [facility] (05/08/2013 19:11:00) Ma dical Center URINALYSIS UA Nitrite Negative Negative 05/09 Normal [facility] (05/08/2013 19:11:00) Ma dicne Center URINALYSIS UA pH 5.0 5.0 - 8.0 05/09 Normal [facility] URINALYSIS UA Protein 30 mg/dL Negative 05/09 [facility] Medical (05/08/2013 19:11:00) Ce nter URINALYSIS UA Glucose Negative mg/dL [facility] 19:11:00[facility] Ce nter URINALYSIS UA Color Yellow Yellow 05/09 NA Medical (05/08/2013 19:11:00) Ce nter URINALYSIS UA Sq Epi Few /LPF Few 05/09 [facility] Medical (05/08/2013 19:11:00) Ce nter URINALYSIS UA RBC 1 0 - 2 05/09 Normal [facility] URINALYSIS UA Ketones Negative mg/dL Negative 05/09 [facility] (05/08/2013 19:11:00) Ce nter URINALYSIS UA Bili Negative Negative 05/09 NA [facility] *NA Medical (05/08/2013 19:11:00) Ce nter URINALYSIS UA Mucus Few /LPF None [facility]en 05/[facility] (05/08/2013 19:11:00) Ce nter URINALYSIS UA Amorph Occasional /HPF None Seen 05/09 NA [facility] Jaimee *NA Medical (05/08/2013 19:11:00) Ce nter BEDSIDE Comment1 Notify 07/21 NA [facility] GLUCOSE RN/MD /2011 [facility] TESTING Center BEDSIDE Gluc POC 87 70 - 99 07/21 Normal <sup>1</sup>I [facility] GLUCOSE [facility] nterpretive Medical TESTING Data: Center Upper Reportable Limit: 200 mg/dL. CHEMISTRY LDL 122 0 - 129 07/21 Normal [facility] CHEMISTRY HDL 24 >=35 07/21 LOW 2011 [facility] CHEMISTRY Trig 238 0 - 200 07/21 [facility] CHEMISTRY Chol 194 120 - 200 07/21 Normal 2011 [facility] CHEMISTRY CHD Risk 8.08 3.90 - 12 [facility] 5.80 [facility] CHEMISTRY Phosphorus 3.2 2.5 - 4.5 07/21 Normal [facility] CHEMISTRY Magnesium Lvl 1.9 1.8 - 2.4 07/21 Normal [facility] CHEMISTRY AGAP 14.1 10.0 - 07/21 Normal [facility] 20.0 [facility] CHEMISTRY BUN 9 7 - 22 07/21 Normal [facility] CHEMISTRY Glucose Lvl 77 70 - 99 07/21 Normal <sup>7</sup>I T ex nterpretive Medical Data: Adult Center reference range values reflect the clinical guidelines
of the [place] [employer]. CHEMISTRY eGFR 104 07/21 NA [...] Lvl 101 95 - 109 07/21 Normal [facility] CHEMISTRY Sodium Lvl 138 135 - 145 07/21 [facility] CHEMISTRY Potassium Lvl 4.1 3.5 - 5.1 07/21 [facility] Tommy [facility] CHEMISTRY Creatinine 0.7 0.5 - 1.4 07/21 [facility] CHEMISTRY CO2 27 24 - 32 07/21 [facility] CHEMISTRY Calcium Lvl 8.0 8.5 - 10.5 07/21 LOW [facility] [address] [facility] CHEMISTRY Hgb A1C 5.8 07/21 NA [...] MPV 6.8 7.4 - 10.4 07/21 LOW [facility] HEMATOLOGY Platelet 539 133 - 450 07/21 HI [facility] HEMATOLOGY MCV 88.7 81.0 - 07/21 Normal [place] 99.0 [facility] HEMATOLOGY MCH 29.4 27.0 - 07/21 [facility] [place] 31.0 [facility] HEMATOLOGY MCHC 33.1 32.0 - 07/21 [facility] [place] 36.0 /2011 Medical Center HEMATOLOGY [...] 0.5 0.0 - 1.0 12/ Normal Medical [facility] HEMATOLOGY Segs-Bands # 5.9 1.5 - 8.1 12 Normal Tommy as [facility] HEMATOLOGY Monocytes 6.0 2.0 - 12.0 12 Normal Medical Center HEMATOLOGY Lymphocytes 41.5 20.0 - 12 HI [place] 40.0 Medical Center HEMATOLOGY Eosinophils 1.9 0.0 - 4.0 12 [place] [facility] HEMATOLOGY Segs 50.1 45.0 - 12 Normal [place] 75.0 /2011 Medical Center HEMATOLOGY Monocytes # 0.7 0.0 - 0.8 12/ [place] [facility] HEMATOLOGY Lymphocytes # 4.8 1.0 - 5.5 12 [place] [facility] HEMATOLOGY Eosinophils # 0.2 0.0 - 0.5 07/21 [place] [facility] HEMATOLOGY Basophils # 0.1 0.0 - 0.2 07/21 [place] [facility] Microbiolog Culture: 07/21 [facility] y Urine [facility] BEDSIDE Gluc POC 112 70 - 99 07/21 [place] <sup>2</sup>I [facility] GLUCOSE [facility] nterpretive Medical TESTING Data: Center Upper Reportable Limit: 200 mg/dL. BEDSIDE Comment1 Notify 07/21 [facility] GLUCOSE RN/MD /2011 Medical TESTING Center URINALYSIS UA Ketones TR 07/21 [facility] URINALYSIS UA 0.1 - 1.0 07/21 [facility] Urobilinogen /2011 [facility] URINALYSIS UA Color Yellow Yellow 12/04 NA [facility] Medical (07/20/2012 19:10:00) Ce nter URINALYSIS UA Protein 20 mg/dL Negative 07/21 ABN Medical (07/20/2012 19:10:00) Ce nter URINALYSIS UA pH 6.5 5.0 - 8.0 07/21 Normal [facility] URINALYSIS UA Glucose Negative mg/dL Negative 07/21 NA [facility] Medical (07/20/2012 19:10:00) Ce nter URINALYSIS UA Spec Grav 1.020 <=1.030 07/21 Normal [facility] URINALYSIS UA Turbidity Slight Clear 07/21 [facility] (07/20/2012 19:10:00) Ce nter URINALYSIS UA Nitrite Negative Negative 07/21 Normal [facility] (07/20/2012 19:10:00) [facility] URINALYSIS UA Leuk Est Trace Negative 07/21 [facility] (07/20/2012 19:10:00) Ce nter URINALYSIS UA Sq Epi Many /LPF Few 07/21 [facility] (07/20/2012 19:10:00) Ce nter URINALYSIS UA Blood Small Negative 07/21 [facility] Medical (07/20/2012 19:10:00) Ce nter URINALYSIS UA Bili Negative Negative 07/21 NA Medical (07/20/2012 19:10:00) Ce nter URINALYSIS UA Amorph Occasional /HPF None Seen 07/21 NA [facility] Jaimee * Medical (07/20/2012 19:10:00) Ce nter URINALYSIS UA Mucus Few /LPF None Seen 07/21 [facility] Medical (07/20/2012 19:10:00) Ce nter URINALYSIS UA Bacteria Few /HPF None Seen 07/21 NA [facility] * Medical (07/20/2012 19:10:00) Ce nter URINALYSIS UA RBC 1 0 - 2 07/21 Normal [facility] URINALYSIS UA WBC 6 0 - 5 07/21 HI [facility] URINALYSIS UA Hyal Cast 1 0 - 2 07/21 Normal [facility] BEDSIDE Comment1 Notify 07/20 NA [facility] GLUCOSE RN/MD Medical TESTING Center BEDSIDE Gluc POC 86 70 - 99 07/20 Normal <sup>3</sup>I [facility] GLUCOSE Lifscn nterpretive Medical TESTING Data: Center Upper Reportable Limit: 200 mg/dL. CHEMISTRY AGAP 14.7 10.0 - 07/20 Normal [facility] 20.0 [facility] CHEMISTRY eGFR 88 07/20 NA <sup>5</sup>R [...] values reflect the clinical guidelines
of the [place] [employer]. CHEMISTRY BUN 13 7 - 22 07/20 Normal [facility] CHEMISTRY Creatinine 0.8 0.5 - 1.4 07/20 Normal [facility] Lvl [facility] CHEMISTRY Sodium Lvl 137 135 - 145 07/20 Normal [facility] CHEMISTRY Potassium Lvl 3.7 3.5 - 5.1 07/20 Normal [facility] CHEMISTRY Chloride Lvl 97 95 - 109 07/20 Normal [facility] CHEMISTRY CO2 29 24 - 32 07/20 Normal [facility] CHEMISTRY Calcium Lvl 8.3 8.5 - 10.5 12 [facility] HEMATOLOGY Monocytes # 0.7 0.0 - 0.8 12 [facility] HEMATOLOGY Lymphocytes # 4.3 1.0 - 5.5 12 [place] [facility] HEMATOLOGY Segs-Bands # 6.9 1.5 - 8.1 [...] Monocytes 5.6 2.0 - 12.0 07/20 Normal [facility] HEMATOLOGY Lymphocytes 35.7 20.0 - [...] MPV 6.8 7.4 - 10.4 12 LOW [facility] HEMATOLOGY Platelet 571 133 - 450 12 [facility] HEMATOLOGY RDW 15.6 11.5 - 12 [place] 14.5 [facility] HEMATOLOGY MCHC 33.3 32.0 - 12 Normal [place] 36.0 [facility] HEMATOLOGY MCH 29.4 27.0 - 12 Normal [place] 31.0 [facility] BLOOD BANK Antibody Scrn Negative 07/19 Normal [facility] RESULTS (07/19/2012 07:30:00) [facility] BLOOD BANK ABO/Rh O POS 07/19 Unknown [facility] RESULTS [facility] CHEMISTRY Total CK 62 12 - 191 07/19 Normal [facility] CHEMISTRY eGFR 67 07/19 NA <sup>6</sup>R [...] CO2 30 24 - 32 07/19 Normal [facility] CHEMISTRY Calcium Lvl 8.8 8.5 - 10.5 07/19 Normal [facility] CHEMISTRY BUN 12 7 - 22 07/19 Normal [facility] CHEMISTRY Creatinine 1.0 0.5 - 1.4 07/19 Normal [facility] CHEMISTRY Glucose Lvl 106 70 - 99 07/19 HI <sup>9</sup>I T ex nterpretive Medical Data: Adult Center reference range values reflect the clinical guidelines
of the [place] [employer]. CHEMISTRY Potassium Lvl 4.1 3.5 - 5.1 07/19 Normal [facility] CHEMISTRY Chloride Lvl 99 95 - 109 07/19 Normal [facility] CHEMISTRY Sodium Lvl 138 135 - 145 07/19 Normal [facility] CHEMISTRY AGAP 13.1 10.0 - 07/19 Normal [facility] 20.0 [facility] CHEMISTRY Troponin-I <0.02 0.00 - 07/19 Normal [facility] 0.40 /2011 [facility] HEMATOLOGY Anisocyte 1+ None Seen 07/19 ABN [facility] *ABN* Medical (07/19/2012 07:30:00) Ce nter HEMATOLOGY Atypical 0.0 <=0.0 07/19 Normal [facility] Lymphs [facility] HEMATOLOGY Large Plt Slight None Seen 07/19 ABN [facility] *ABN* Medical (07/19/2012 07:30:00) Ce nter HEMATOLOGY Polychrom Slight None Seen 07/19 Normal [facility] (07/19/2012 07:30:00) /2011 [facility] HEMATOLOGY Bands 0.0 0.0 - 11.0 12 Normal [facility] HEMATOLOGY Monocytes 4.0 2.0 - 12.0 07/19 Normal [facility] HEMATOLOGY Lymphocytes 30.0 20.0 - 07/19 Normal [place] 40.0 [facility] HEMATOLOGY Eosinophils 1.0 0.0 - 4.0 07/19 [place] [facility] HEMATOLOGY Lymphocytes # 5.4 1.0 - 5.5 07/19 [place] [facility] HEMATOLOGY Segs-Bands # 11.8 1.5 - 8.1 07/19 [place] [facility] HEMATOLOGY Eosinophils # 0.2 0.0 - 0.5 07/19 [place] [facility] HEMATOLOGY Monocytes # 0.7 0.0 - 0.8 07/19 [place] [facility] HEMATOLOGY Segs 65.0 45.0 - 07/19 Normal [facility] 75.0 [facility] HEMATOLOGY INR 0.97 0.85 - 07/19 Normal [place]sup[place]sup[place] 1.[place] Interpretive Medical Data: Center RECOMMENDED RANGES FOR PROTIME INR:
2.0-3.0 for most medical and surgical thromboemboli c states.
2.5-3.5 for artificial heart valves and recurrent embolism.<br/ >
INR SHOULD BE USED ONLY FOR PATIENTS ON STABLE ANTICOAGULANT THERAPY. HEMATOLOGY PT 13.1 12.0 - 12 Normal [place] 14.7 [facility] HEMATOLOGY Estimated % 4.1 0.0 - 7.5 07/19 [place] [facility] HEMATOLOGY Rapid TEG Citrated 07/19 NA [facility] Sample Type [facility] Blood [facility] HEMATOLOGY ACT (TEG) 113 86 - 118 07/19 Normal [facility] HEMATOLOGY [place] 0.6 07/19 NA [facility] HEMATOLOGY Angle 82 64 - 80 07/19 [facility] HEMATOLOGY Max Amp 81 52 - 71 12 [facility] HEMATOLOGY K-time 0.8 0.6 - 2.3 07/19 Normal [facility] HEMATOLOGY G-value 20.9 5.0 - 11.6 12 [facility] HEMATOLOGY R-time 0.7 0.4 - 0.7 07/19 Normal [facility] HEMATOLOGY PTT 32.1 22.9 - 12 Normal [place]sup[place] 35.8 /2011 Interpretive Medical Data: Heparin Center Therapeutic Range: 57 - 92 [facility] HEMATOLOGY Hgb 15.0 12.0 - 12 Normal [facility] 16.0 /2011 [facility] HEMATOLOGY RBC 5.06 4.20 - 12 Normal [facility] 5.40 /2011 [facility] HEMATOLOGY RDW 14.8 11.5 - 12 [facility] 14.5 /2011 [facility] HEMATOLOGY MCHC 33.3 32.0 - 12/ Normal [facility] 36.0 /2011 [facility] HEMATOLOGY WBC 18.1 3.7 - 10.4 12 [facility] HEMATOLOGY Hct 44.9 36.0 - 12/ Normal [facility] 48.0 /2011 [facility] HEMATOLOGY MPV 7.1 7.4 - 10.4 12 LOW [facility] HEMATOLOGY MCH 29.5 27.0 - 12/ Normal [facility] 31.0 /2011 [facility] HEMATOLOGY MCV 88.8 81.0 - 12/ Normal [facility] 99.0 /2011 [facility] HEMATOLOGY Platelet 634 133 - 450 12 [facility] Pathology Reports No Data Provided for This Section Diagnostic Reports Report Value Date Source Brain wo contrast MRI EXAM: MRI BRAIN WITHOUT CONTRAST 9 [facility] Medical DATE: 03/10/2019 14:02 CDT Center [...] EXAM: CTA CHEST WITH CONTRAST 03/09/2019 [facility] [place] [facility] CTA DATE: 03/09/2019 18:09 CDT [...] MRI EXAM: MRI BRAIN WITHOUT CONTRAST 9 [facility] DATE: 03/09/2019 9:46 PM CDT [facility] INDICATION: - new slurred speech, L facial [...] LUMBAR PUNCTURE UNDER FLUOROSCOP IC GUIDANCE 03/17/2015 [facility] DX [facility] DATE: Mar 17, 2015 03:30:39 PM INDICATION: [...] OCTOBER 30, 2014 AT 1:40 A.M. 10/16 [facility] HISTORY: 49-year-old female with tube placement/ removal/reposition. [...] OCTOBER 29, 2014 AT 2:00 A.M. 10/16 [facility] HISTORY: 49-year-old female with abnormal chest sounds. FINDINGS: Comparison is made to October 28. The cardiomediastinal silhou ette is stable. Life support lines and tubes remain in place. Subsegmental atelectasis is seen in the left lower lobe. The costophrenic sulci are sharp, without effusions. IMPRESSION: Left lower lobe subsegmental atelect asis. Brain wo contrast MRI EXAM: MRI BRAIN WITHOUT CONTRAST 5 [facility] DATE: 10/28/2014 at 2153 hours INDICATION: Altered [...] October 28, 2014 AT 1:19 a.m. 10/16 [facility] HISTORY: 49-year-old female with tube placement/ removal/reposition. [...] AP DX INDICATION: Dobhoff tube placement. 10/27/2014 [facility] EXAM: ABDOMEN XR, 1 view. TECHNIQUE: Limited [...] October 27, 2014 a 1:15 a.m. 10/27 [facility] HISTORY: 49-year-old female with abnormal chest sounds. [...] EXAM: CT CHEST WITH IV CONTRAST 10/26/2014 [facility] DATE: Oct 26, 2014 03:26:53 PM INDICATION: [...] CT EXAMINATION: CT head without contrast. 10/16 [facility] DATE: 10/26/2014. INDICATION: Altered level of consciousness. [...] CTA ABDOMEN/PELVIS WITH INTRAVENO US CONTRAST 10/26/2014 [facility] DATE: October 26, 2014 INDICATION: Abdominal pain, [...] 1view DX PORTABLE CHEST 2014-10-26 11:56:00 10/26/2014 [facility] COMPARISON: Same day at 10:00 a.m. CLINICAL [...] DX Portable ap semierect chest 10/26/2014 10/26/2014 [facility] HISTORY: Central line placement. Comparison is m [...] EXAM: MRI OF THE BRAIN WITHOUT CONTRAST [facility] DATE:Nov 13, 2013 08:22:00 AM CLINICAL HISTORY: [...] Chest 1view EXAM: CHEST 1 VIEW 11/13/2013 [facility] DATE: Nov 13, 2013 04:17:00 AM INDICATION: CVA/TIA COMPARISON: Prior study dated 05/08/2013 TECHNIQUE: Single portable radiograph of the [facility] st FINDINGS: The cardiac silho uette is unremarkable. The lungs are clear bilaterally. The costophrenic sulci are clear and well demarcated. The osseous structures and soft tissues are unremarkable. IMPRESSION: No radiographic evidence of an acut e cardiopulmonary process. Extremity lower VENOUS DOPPLER ULTRASOUND BILATERAL LOWER EXTREM ITY: 05/10/2013 [facility] venous doppler bilat Center US CLINICAL INDICATION: Pain and swelling. TECHNIQUE: The veins of the bilateral lower extremities were evaluated with grayscale, color-flow and spectral Doppler ultrasound. FINDINGS: The common femoral , superficial femoral, and popliteal veins demonstrate normal compressibility and color Doppler signal. IMPRESSION: Negative for DVT bilaterally. Pelvis w/wo contrast EXAM: MRV PELVIS WITHOUT AND WITH CONTRAST 05/10/2013 [facility] DATE: 05/10/2013. INDICATION: 47-year-old fema le with [...] CT CT SCAN OF THE BRAIN 05/10/2013 [facility] DATE: 05/10/2013 at 1:56 a.m. [...] CTA EXAM: HEAD AND NECK CTA 05/09/2013 [facility] DATE: May 09, 2013 12:30:00 PM CLINICAL [...] EXAM: MRI brain without contrast. 05/09/20 13 [facility] INDICATION: Facial numbness. COMPARISON: MRI July 19, [...] 2 VIEWS dated 2013-05-09 00:05:00 05/08/20 13 [facility] COMPARISON: Same day at 9:08 a.m. CLINICAL [...] Comments Source Systolic (mm Hg) 133 03/13/2019 [facility] Diastolic (mm Hg) 83 03/13/2019 [facility] Temperature Oral (F) 97.0 F 03/13/2019 [facility] Respitory Rate 14 03/13/2019 [facility] Heart Rate 98 03/12/2019 [facility] Respitory Rate 18 03/12/2019 [facility] Systolic (mm Hg) 134 03/12/2019 [facility] Diastolic (mm Hg) 83 03/12/2019 [facility] Heart Rate 95 03/12/2019 [facility] Systolic (mm Hg) 147 03/12/2019 [facility] Diastolic (mm Hg) 92 03/12/2019 [facility] Temperature Oral (F) 97.3 F 03/12/2019 [facility] Respitory Rate 18 03/12/2019 [facility] Heart Rate 98 03/12/2019 [facility] Temperature Oral (F) 97.3 F 03/12/2019 [facility] Weight 99.318 03/10/2019 [facility] Weight 97.727 03/10/2019 [facility] Height 160.02 cm 03/10/2019 [facility] BMI Calculated 38.17 03/10/2019 [facility] Center Weight 97.5 03/09/2019 [facility] BMI Calculated 32.68 03/09/2019 [facility] Center Height 172.72 cm 03/09/2019 [facility] Temperature Oral (F) 97.5 F 03/22/2015 [facility] Heart Rate 70 03/22/2015 [facility] Respitory Rate 17 03/22/2015 [facility] see Center Systolic (mm Hg) 102 03/22/2015 [facility] dical Center Diastolic (mm Hg) 64 03/22/2015 [facility] Heart Rate 69 03/22/2015 [facility] Respitory Rate 17 03/22/2015 [facility] Center Temperature Oral (F) 97.4 F 03/22/2015 [facility] Systolic (mm Hg) 134 03/22/2015 [facility] dical Center Diastolic (mm Hg) 79 03/22/2015 [facility] Systolic (mm Hg) 133 03/22/2015 [facility] dical Center Diastolic (mm Hg) 84 03/22/2015 [facility] Heart Rate 69 03/22/2015 [facility] Temperature Oral (F) 97.8 F 03/22/2015 [facility] Respitory Rate 17 03/22/2015 [facility] Center Weight 110.3 03/17/2015 [facility] Height 160.02 cm 03/17/2015 [facility] BMI Calculated 43.08 03/17/2015 [facility] Center Temperature Oral (F) 98.1 F 11/01/2014 [facility] Heart Rate 86 11/01/2014 [facility] Respitory Rate 18 11/01/2014 [facility] Center Systolic (mm Hg) 126 11/01/2014 [facility] dical Center Diastolic (mm Hg) 77 [facility] Oral (F) 98.6 F 10/31/2014 [facility] Heart Rate 83 10/31/2014 [facility] Respitory Rate 18 10/31/2014 [facility] see Center Systolic (mm Hg) 121 10/31/2014 [facility] dical Center Diastolic (mm Hg) 85 10/31/2014 [facility] edical Center Temperature Oral (F) 98.2 F 10/31/2014 [facility] Respitory Rate 18 10/31/2014 [facility] see Center Systolic (mm Hg) 140 10/31/2014 [facility] dical Center Diastolic (mm Hg) 86 10/31/2014 [facility] edical Center Heart Rate 68 10/31/2014 [facility] Weight 110.3 10/26/2014 [facility] BMI Calculated 43.08 10/26/2014 [facility] see Center Height 160.02 cm 10/26/2014 [facility] Diastolic (mm Hg) 77 11/14/2013 [facility] Heart Rate 96 11/14/2013 [facility] Systolic (mm Hg) 129 11/14/2013 [facility] dical Center Respitory Rate 20 11/14/2013 [facility] Center Temperature Oral (F) 98.3 F 11/14/2013 [facility] Heart Rate 90 11/14/2013 [facility] Respitory Rate 20 11/14/2013 [facility] see Center Temperature Oral (F) 98.0 F 11/14/2013 [facility] Systolic (mm Hg) 132 11/14/2013 [facility] dical Center Diastolic (mm Hg) 84 11/14/2013 [facility] edical Center Diastolic (mm Hg) 75 11/14/2013 [facility] edical Center Systolic (mm Hg) 155 11/14/2013 [facility] dical Center Temperature Oral (F) 97.4 F 11/14/2013 [facility] Respitory Rate 17 11/14/2013 [facility] see Center Height 162.56 cm 11/13/2013 [facility] Medica l Center Weight 96.364 11/13/2013 [facility] BMI Calculated 36.47 11/13/2013 [facility] see Center BMI Calculated 37.63 11/13/2013 [facility] see Center Height 160.02 cm 11/13/2013 [facility] Weight 96.364 11/13/2013 [facility] Heart Rate 99 11/13/2013 [facility] Heart Rate 62 05/12/2013 [facility] Medica l Center Diastolic (mm Hg) 90 05/12/2013 [facility] edical Center Systolic (mm Hg) 158 05/12/2013 [facility] dical Center Respitory Rate 16 05/12/2013 [facility] see Center Diastolic (mm Hg) 90 05/12/2013 [facility] edical Center Systolic (mm Hg) 168 05/12/2013 [facility] dical Center Respitory Rate 19 05/12/2013 [facility] see Center Heart Rate 77 05/12/2013 [facility] Temperature Oral (F) 99.1 F 05/12/2013 [facility] Diastolic (mm Hg) 97 05/12/2013 [facility] edical Center Systolic (mm Hg) 156 05/12/2013 [facility] dical Center Respitory Rate 20 05/12/2013 [facility] Center Heart Rate 69 05/12/2013 [facility] Temperature Oral (F) 99.8 F 05/12/2013 [facility] Temperature Oral (F) 99.8 F 05/12/2013 [facility] Height 160.02 cm 05/09/2013 [facility] Weight 98.182 05/09/2013 [facility] Respitory Rate 18 07/22/2012 [facility] see Center Systolic (mm Hg) 115 07/22/2012 [facility] dical Center Diastolic (mm Hg) 62 07/22/2012 [facility] edical Center Temperature Oral (F) 98.6 F 07/22/2012 [facility] Heart Rate 65 07/22/2012 [facility] Diastolic (mm Hg) 61 07/21/2012 [facility] edical Center Systolic (mm Hg) 96 07/21/2012 [facility] dical Center Temperature Oral (F) 97.2 F 07/21/2012 [facility] Heart Rate 64 07/21/2012 [facility] Respitory Rate 16 07/21/2012 [facility] Center Temperature Oral (F) 98.5 F 07/21/2012 [facility] Heart Rate 64 07/21/2012 [facility] Respitory Rate 18 07/21/2012 [facility] Diastolic (mm Hg) 85 07/21/2012 [facility] edical [place] Systolic (mm Hg) 134 07/21/2012 [facility] dical [place] Weight 113.636 07/19/2012 [facility] Height 160.02 cm 07/19/2012 [facility] Encounters Location Location Encounter Encounter Reason Attending ADM DC Stat us Source Details Type Number For Visit Provider Date Date [facility] Inpatient [id number] CEREBRAL LISA 07/19 07/21 Acti ve [facility] VASCULAR ANAND /2011 [facility] ACCIDENT Center [facility] Inpatient [id number] AMS JILLIAN 05/08 05/12 Active [facility] CHERNYSHEV /2012 [facility] Inpatient [id number] _MAPID:EN Amrou 11/13 11/14 [facility] [id number] Yessenia /[address] Inpatient [id number] Amrou 10/26 11/01 [facility] /2014 [facility] Inpatient [id number] Atif Krell 03/16 03/23 [facility] /2014 [facility] Inpatient [id number] Cerena 03/09 03/13 [facility] Kaur /2018 [facility] Procedures Procedure Code Date Perfomer Comments Source Spinal puncture, 58021 03/17/2015 [facility] therapeutic, for Medical drainage of [place] cerebrospinal fluid (by needle or catheter) Appendectomy [id number] [facility] Cholecystectomy [id number] [facility] Ankle [id number] WITH SCREWS [facility] fusion<sup>1</sup> [facility] Appendectomy [id number] [facility] Cholecystectomy [id number] [facility] Fixation of fracture [id number] [place] using plate [facility] Hysterectomy [id number] [facility] Assessment and Plan Assessment and Plan Date Source Extracted from:Title: Stroke Progress Note 03/13/2019 [facility] Author: Bibiana Cortes MD Date: 03/12/19 Patient: Isabell Delilah Overnight: No issues overnight. Patient feels her speech has returned to her baseline. History of Present Illness: 53 yr old female with PMH of CHF, recent CVA, APLS, on ASA and Statin transferred form [place] after presenting 36 hrs post worsening neurological deficits. Pt with worsening dysarthria, left sided hem isensory loss. CTH - no evidence of evol ving ischemia - however old encephalomalacia in R-MCA territory, CTA no LVO. She was given ASA 300mg MS prior to transfer. On evaluation her BP [...] 2014. Per patient, she followed with outpatient [employer] who switched her from Xarelto to aspirin. [...] off. Please call Stroke Consult Team with [employer]. Rosey Doyle MD Vascular Neurology Fellow PGY-6 Pager# [phone] Extracted from:Title: Cardiology Consult Note Author: Barb [...] K>4 and mag>2), telemetry. Barb Garza MD Enrollment Advisor Department of Internal Medicine Division of Cardiovascular Medicine Extracted from:Title: Team A History and Physical Author: Sandrita Starks MD Date: 03/10/19 53 yo F, PMHx of CVA (R MCA w/ residual dysarthria, L sided weakness), HTN, and COPD, presents to ED as transfer from OSH ([place], [place]) with worsening slurred speech and L facial [...] QD Diet NPO, failed dysphagia screen per [employer] Heparin Pending clinical improvement Teaching Physician Attestation: I saw an d evaluated the patient with the resident team. I reviewed the clinical data and confirmed the findings. We formulated the assessment and plans. I agree withthis note. Dario Downs MD Extracted from:Title: General Neurology Discharge Summary [facility] Author: Yue Anderson MD Date: 03/22/15 General [...] who p resented as a transfer from [facility] for HLOC for encephalitis with background [...] -> 94.9 (03/16/2015). [facility] given CSF analysis, interim changes in MRI, and history of APLA and CVA. Hypercoaguable lab abnormalities: ESR 55 CRP 100m protein C activity low at 68% ATIII 79% IgM anticoagulant elevated 5.2 lupus anticoagulant detected. Repeat labs done by Dr Gardiner in 07/2013 showed normal anti-carrdiolipin panel, CRP wnl and ESR 40 Hospital Course: Admitted to ICU, transferred down to [facility] or soon after transfer to [facility], after patient remained stable with stable exam. LP with IR, opening pressure 14. CSF showed signs of continued infection versus inf lammation: WBC 40 RBC 3 L 90 E N Glu 42 Protein 71. ID consulted, recs to continue IV acyclovir. HSV negative x2, at OSH and [facility]. Patient symptomatically improving with acyclovir, increased suspicion [...] changes insurance, would like to see in [facility] after repeat antiphospholipid antibody [...] twitc leonor. Patient was transferred to our [facility] for higher level of care. Repeat [...] the past, then I would recommend a ekg monitor tech - Repeat MRI to follow up on [...] ssion, PTSD presents as an transfer from [facility] for HLOC. The patient initially presented [...] APLA and CVA, she was transferred to [facility] for HLOC. Hypercoaguable lab abnormalities: ESR [...] hypophone, mild dysarthria, comprehension and naming intact flyer builder: 2-12 intact. Right and left horizon ana [...] (286.9) 6. hyperlipidemia (272.4) Level of service: [id number] Tim John MD, PhD #[id number] Enrollment Advisor of Neurology Extracted from:Title: Clinical Document Author: Ashley Rosas MD Date: 03/16/15 General Neurology Consult Note Requesting Physician/Service: Transfer from [facility] Reason for admission: [...] ssion, PTSD presents as an transfer from [facility] for HLOC. The patient initially presented [...] APLA and CVA, she was transferred to [facility] for HLOC. Review of Systems: GEN: [...] Brittni borrero. Per EMR review, her Swapnil ([id number]) is listed as her next of kin. [...] intact, repetition and naming intact. Psychogenic stutter flyer builder: EOMI, PERRLA, R gaze horizontal nys tagmus, [...] Pending PT/OT evaluation Next of kin: Swapnil ([id number]) The case was discussed with the utilization coordinator General Neurology attending Dr Dey. General Neurology is primary, please call [phone] with questions. Ashley Rosas PGY-3 [facility] Neurology NEUROLOGY ATTENDING I personally discussed this [...] verbal output on exam, but can answer [facility] (unsure which one), and her name. (3) HYPERCOAGULABLE STATE/ s/p STROKE: h ypercoagulable state: apparently (+) here and (-) at OSH. Need clarification before restarting Xarelto. (4) SEIZURES: agree w/Keppra 1000 bid. N ewly on AEDs? Agree w/dose and watching pt. DIAGNOSES ENCEPHALITIS SEIZURES APHASIA HYPERCOAGULABLE STATE CPT 45241 Extracted from:Title: Stroke Transfer Summary 11/01/2014 [facility] Author: Gael Peña MD Date: 10/31/14 Stroke [...] all questions were answered. Pablo Peña MD [facility] Family Medicine PGY-2 Extracted from:Title: Cardiology Consult [...] concerns. Nacho Valencia MD Resident, PGY-1 Pager: [phone] ext.[phone] CARDIOLOGY STAFF I saw and examined the [...] Ladd M.D. Extracted from:Title: Clinical Document 11/14/2013 [facility] Author: Tanmay Pedroza Date: 11/14/2013 Stroke Progress Note - Daily [facility] mpleted: Oct, 08:32 by Tanmay [...] propylaxis Dispo - plan to transfer to [facility] for further workup, no acute stroke STROKE NEUROLOGY STAFF I have seen and examined the patient. Fu rthermore, I have discussed the case with and reviewed 's note and agree with the history, exam, assessment and plan. See note below for additions and/or exceptions and my findings. I hav e personally viewed the patient's radiographic studies and laboratory tests. Assessment / Plan: 48716 Weakness-728.87 Hypercoagulable state-289.82 Numbness-782.0 48 years old [...] coumadin with therapeutic INR. Wilberto Garcia M.D. Enrollment Advisor Dept of Neurology [phone] (pager) Extracted from:Title: Clinical Document Author: Daiman Baileyrick Date: 11/13/2013 Neurology Stroke H&P Patient [...] 2.7 on 11/02) who was transferred to [facility] from [facility] for possible ischemic stroke. Per the [...] so he told her to go to [facility] ER. There, the [...] time window. She was subsequently transferred to [facility] for stroke workup. On my assessment, the pt states that she continues to experience right-sided headache (but it is resolving) and left arm weakness which has n ot significantly changed since she arriv ed to [facility]. Initial NIHSS 7 (see details below). Of note, she was admitted to the [facility] service in 04/2013 for left FD and [...] The pt lives with her daughter in [place], [place]. She is from her . She [...] open/ close the eyes and then to casting wheel operator helper and release the non- paretic hand ____ [...] THE FOLLOWING WERE PRESENT ON ADMISSION (POA) SUPERVISOR BRAIDING Old right frontal infarct Left facial droop [...] isc hemic stroke, complex migraine, less lik atrhur venous sinus thrombosis or seizure. Other stroke [...] studies and laboratory tests. Assessment / Plan: 59300 Weakness-728.87 Hypercoagulable state-289.82 Numbness-782.0 48 years old [...] diet. DVT prophylaxis - - SCDs and BIRSSA hose - On coumadin with therapeutic INR. [...] has also been emphasized. Wilberto Garcia M.D. Enrollment Advisor Dept of Neurology [phone] (pager) Plan of Care No Data Provided for This Section Social History Social History Date Source Social History TypeResponse 03/17/2015 [facility] Substance Abuse Use: None. [...] Smoking Last 365 Days No; Reg Smo ravin Cessation Counseling Yes; Tobacco u se per day: 12; Started [age] age: 39.0; 1, 2 entered on: 03/10/19 1Stopped smoking in [id number] 6-12 cigarettes per day Family History No Data Provided for This Section Advance Directives No Data Provided for This Section Functional Status No Data Provided for This Section
--- OUTSIDE RECORDS SUMMARY | 2020-05-26 19:51 | XMS REPORT | Continuity of Care Document ---
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 Yes Anita Marcelino 325 mg, 1 Memoria mg tablet 2-04 [place] tab, PO, l 19:05: Daily, 30 [employer] [place] 08 tab, Substituti on Allowed, TAB verapamil [...] Memoria 2-04 Quang Route: l 18:15: IVPB, [employer] [place] 00 ONCE, Dosing Weight 113.636, kg, Start [...] tab, PO, l tablet 17:59: TID, 90 [employer] [place] 46 tab, 3, 3, Substituti on Allowed, [...] tab, PO, l tablet 14:30: Q12H, 6 [employer] [place] 09 tab, Substituti on Allowed, TAB Lipitor 40 2011-08 Yes Naomi Viki 40 mg, 1 Memoria mg oral 2-04 Quang tab, PO, l tablet 14:30: QPM, 30 [employer] [place] 06 tab, 3, 3, Substituti on Allowed, TAB Cipro 2011-08 No Anita Marcelino 250 mg, 1 Mem oria 2-04 [place] tab, l 05:00: Route: PO, [employer] [place] 00 Drug form: TAB, Q12H, Dosing Weight [...] Govind Rate: 500 l 22:31: Koranne ml/hr, [place] 00 Infuse over: 1 hr, Route: IV, [...] l benzoate + 19:20: Koranne IVPB, Drug [employer] [place] Sodium 00 form: INJ, Chloride ONCE, 0.9% [...] 2-02 [place] tab, l 16:17: Route: PO, [employer] [place] 00 Drug form: TAB, Daily, Dosing Weight [...] Baudilio 650 mg, 2 Memoria en 02 [place] tab, l 16:05: Chahil Route: PO, Aliza [...] Memor ia 2-02 Daily, l 13:02: Substituti [place] 47 on Allowed Haldol 2011-08 Yes Baudilio [...] [facility] Aspir-81 Aspir-81 Yes James [address] [facility] Potassium Potassium Yes James [address] [facility] Chloride Chloride [facility] Lipitor Lipitor Yes James [address] [facility] Ambien Ambien Yes James 1 tablet [facility] Symbicort Symbicort Yes James [address] [facility] Lasix Lasix Yes James 0.5 tablet [facility] Promethazin Promethazin Yes James [...] [facility] Metoprolol Metoprolol Yes James [address] [facility] [address] Tartrate Tartrate [facility] with food [facility] Eliquis Eliquis Yes James as [facility] Clopidogrel Clopidogrel Yes James [...] Diastolic (mm Hg) 2019-03-13 01:15:00 Mem [address] [place] Temperature Oral (F) 2019-03-13 01:15:00 97.0 F [facility] [place] Respitory Rate 2019-03-13 01:15:00 [facility] [place] Heart Rate 2019-03-12 22:53:00 [facility] [place] Respitory Rate 2019-03-12 22:07:00 [facility] [place] Systolic (mm Hg) 2019-03-12 22:07:00 Mike rial [place] Diastolic (mm Hg) 2019-03-12 22:07:00 Mem orial [place] Heart Rate 2019-03-12 22:07:00 [facility] [place] Systolic (mm Hg) 2019-03-12 20:52:00 Mike rial [place] Diastolic (mm Hg) 2019-03-12 20:52:00 Mem orial [place] Temperature Oral (F) 2019-03-12 20:52:00 97.3 F [facility] [place] Respitory Rate 2019-03-12 20:52:00 [facility] [place] Heart Rate 2019-03-12 20:52:00 [facility] [place] Temperature Oral (F) 2019-03-12 16:26:00 97.3 F [facility] [place] Weight 2019-03-10 08:42:00 [facility] [place] Weight 2019-03-10 08:31:00 [facility] [place] Height 2019-03-10 08:31:00 160.02 cm [facility] [place] BMI Calculated 2019-03-10 08:31:00 [facility] al [place] Weight 2019-03-09 20:31:00 [facility] [place] BMI Calculated 2019-03-09 20:31:00 [facility] al [place] Height 2019-03-09 20:31:00 172.72 cm [facility] [place] Temperature Oral (F) 2015-03-22 21:22:00 97.5 F [facility] [place] Heart Rate 2015-03-22 21:22:00 [facility] [place] Respitory Rate 2015-03-22 21:22:00 [facility] [place] Systolic (mm Hg) 2015-03-22 21:22:00 Mike rial [place] Diastolic (mm Hg) 2015-03-22 21:22:00 Mem orial [place] Heart Rate 2015-03-22 17:00:00 [facility] [place] Respitory Rate 2015-03-22 17:00:00 [facility] [place] Temperature Oral (F) 2015-03-22 17:00:00 97.4 F [facility] [place] Systolic (mm Hg) 2015-03-22 17:00:00 Mike rial [place] Diastolic (mm Hg) 2015-03-22 17:00:00 Mem orial [place] Systolic (mm Hg) 2015-03-22 14:14:00 Mike rial [place] Diastolic (mm Hg) 2015-03-22 14:14:00 Mem orial [place] Heart Rate 2015-03-22 14:14:00 [facility] [place] Temperature Oral (F) 2015-03-22 14:14:00 97.8 F [facility] [place] Respitory Rate 2015-03-22 14:14:00 [facility] [place] Weight 2015-03-17 00:52:00 [facility] [place] Height 2015-03-17 00:52:00 160.02 cm [facility] [place] BMI Calculated 2015-03-17 00:52:00 [facility] al [place] Temperature Oral (F) 2014-11-01 00:46:00 98.1 F [facility] [place] Heart Rate 2014-11-01 00:46:00 [facility] [place] Respitory Rate 2014-11-01 00:46:00 [facility]ori al [place] Systolic (mm Hg) 2014-11-01 00:46:00 Mike rial [place] Diastolic (mm Hg) 2014-11-01 00:46:00 [facility] [address] [place] Temperature Oral (F) 2014-10-31 21:18:00 98.6 F [facility] [place] Heart Rate 2014-10-31 21:18:00 [facility] [place] Respitory Rate 2014-10-31 21:18:00 [facility] [place] Systolic (mm Hg) 2014-10-31 21:18:00 Mike rial [place] Diastolic (mm Hg) 2014-10-31 21:18:00 Mem orial [place] Temperature Oral (F) 2014-10-31 15:55:00 98.2 F [facility] [place] Respitory Rate 2014-10-31 15:55:00 [facility] [place] Systolic (mm Hg) 2014-10-31 15:55:00 Mike rial [place] Diastolic (mm Hg) 2014-10-31 15:55:00 Mem orial [place] Heart Rate 2014-10-31 15:55:00 [facility] [place] Weight 2014-10-26 02:54:00 [facility] [place] BMI Calculated 2014-10-26 02:54:00 [facility]ori al [place] Height 2014-10-26 02:54:00 160.02 cm [facility] [place] Diastolic (mm Hg) 2013-11-14 19:30:00 Mem [facility] [place] Heart Rate 2013-11-14 19:30:00 [facility] [place] Systolic (mm Hg) 2013-11-14 19:30:00 Mike rial [place] Respitory Rate 2013-11-14 19:30:00 [facility]ori al [place] Temperature Oral (F) 2013-11-14 19:30:00 98.3 F [facility] [place] Heart Rate 2013-11-14 17:18:00 [facility] [place] Respitory Rate 2013-11-14 17:18:00 [facility] [place] Temperature Oral (F) 2013-11-14 17:18:00 98.0 F [facility] [place] Systolic (mm Hg) 2013-11-14 17:18:00 Mike rial [place] Diastolic (mm Hg) 2013-11-14 17:18:00 Mem o[facility] [place] Diastolic (mm Hg) 2013-11-14 16:00:00 Mem orial [place] Systolic (mm Hg) 2013-11-14 16:00:00 Mike rial [place] Temperature Oral (F) 2013-11-14 15:04:00 97.4 F [facility] [place] Respitory Rate 2013-11-14 07:00:00 [facility] [place] Height 2013-11-13 11:04:00 162.56 cm [facility] [place] Weight 2013-11-13 11:04:00 [facility] [place] BMI Calculated 2013-11-13 11:04:00 [facility] [place] BMI Calculated 2013-11-13 08:43:00 [facility] [place] Height 2013-11-13 08:43:00 160.02 cm [facility] [place] Weight 2013-11-13 08:43:00 [facility] [place] Heart Rate 2013-11-13 08:43:00 [facility] [place] Heart Rate 2013-05-12 16:17:00 [facility] [place] Diastolic (mm Hg) 2013-05-12 16:17:00 Mem orial [place] Systolic (mm Hg) 2013-05-12 16:17:00 Mike rial [place] Respitory Rate 2013-05-12 15:30:00 Memori al [place] Diastolic (mm Hg) 2013-05-12 12:53:00 Mem orial [place] Systolic (mm Hg) 2013-05-12 12:53:00 Mike rial [place] Respitory Rate 2013-05-12 12:53:00 [facility]ori al [place] Heart Rate 2013-05-12 12:53:00 [facility] [place] Temperature Oral (F) 2013-05-12 12:53:00 99.1 F [facility] [place] Diastolic (mm Hg) 2013-05-12 08:31:00 Mem orial [place] Systolic (mm Hg) 2013-05-12 08:31:00 Mike rial [place] Respitory Rate 2013-05-12 08:31:00 [facility] [place] Heart Rate 2013-05-12 08:31:00 [facility] [place] Temperature Oral (F) 2013-05-12 08:31:00 99.8 F [facility] [place] Temperature Oral (F) 2013-05-12 04:50:00 99.8 F [facility] [place] Height 2013-05-09 03:31:00 160.02 cm [facility] [place] Weight 2013-05-09 03:31:00 [facility] [place] Respitory Rate 2012-07-22 01:09:00 Memori al [place] Systolic (mm Hg) 2012-07-22 01:09:00 Mike rial [place] Diastolic (mm Hg) 2012-07-22 01:09:00 Mem orial [place] Temperature Oral (F) 2012-07-22 01:09:00 98.6 F [facility] [place] Heart Rate 2012-07-22 01:09:00 [facility] [place] Diastolic (mm Hg) 2012-07-21 21:10:00 Mem orial [place] Systolic (mm Hg) 2012-07-21 21:10:00 Mike rial [place] Temperature Oral (F) 2012-07-21 21:10:00 97.2 F [facility] [place] Heart Rate 2012-07-21 21:10:00 [facility] [place] Respitory Rate 2012-07-21 21:10:00 Memori al [place] Temperature Oral (F) 2012-07-21 18:26:00 98.5 F [facility] [place] Heart Rate 2012-07-21 18:26:00 [facility] [place] Respitory Rate 2012-07-21 18:26:00 [facility] [place] Diastolic (mm Hg) 2012-07-21 18:26:00 Mem orial [place] Systolic (mm Hg) 2012-07-21 18:26:00 Mike rial [place] Weight 2012-07-19 12:37:00 [facility] [place] Height 2012-07-19 12:37:00 160.02 cm [facility] [place] Procedures Procedure Date / Time Performing Clinician Source Performed Spinal puncture, 2015-03-17 20:30:27 [facility] rmann therapeutic, for drainage of cerebrospinal fluid (by needle or catheter) Appendectomy [facility] Cabrera Cholecystectomy [facility] Cabrera Ankle fusion<sup>1</sup> [facility] [place] Appendectomy [facility] [place] Cholecystectomy [facility] Cabrera Fixation of fracture using Memor ial [place] plate Hysterectomy [facility] Cabrera Encounters Start End Encounter Admission Attending Care Care Encounter Source Date/Time Date/Time Type Type Clinicians Facility Department ID 2020-05-24 2020-05-24 Orders Doctor ROSEMARY [id number] 00:00:00 00:00:00 Only Unassigned, OSITO [id number] [place] [facility] [id number] [id number] 2020-04-27 2020-04-27 Refill ANTHONY Escobar [id number] 00:00:00 00:00:00 Ludwig Gill [id number] [place] [id number] Professio [phone] [address] 2020-03-28 2020-03-28 [facility] [id number] 16:00:00 16:00:00 [employer] [facility] [employer] [facility] [place] [place] [facility] 2020-03-27 2020-03-27 Refill ANTHONY Escobar 1.2.840.114 [id number] 00:00:00 00:00:00 Ludwig Gill [id number] [place] [id number] Professio [phone] [address] 2020-02-21 2020-02-21 [facility] [id number] 15:00:00 15:00:00 t [employer] [facility] Medicine Medicine Outpati ent Clinics 2020-02-16 2020-02-16 [facility] [id number] 07:13:00 07:13:00 t [employer] [facility] Medicine l Medicine Outpati ent Clinics 2020-02-15 2020-02-15 [facility] [id number] 14:22:00 14:22:00 [employer] [facility] [place] [place] Medicine Outpati ent Clinics 2020-01-06 2020-01-21 Telemedici Shawn [facility] [id number] 08:06:15 01:22:36 ne Visit Ludwig Gill [id number] [place] [id number] Professio [phone] [address] 2020-01-17 2020-01-17 Orders Doctor RILEY [id number] 00:00:00 00:00:00 Only Unassigned, OSITO [id number] [place] [facility] [id number] [id number] 2020-01-12 2020-01-12 [facility] [id number] 16:30:00 16:30:00 [facility] s - Road [facility] Medicine Medicine Outpati ent Clinics 2019-12-27 2019-12-27 [facility] [id number] 14:45:00 14:45:00 t [employer] [facility] Medicine Medicine Outpati ent Clinics 2019-09-27 2019-09-27 [facility] [id number] 15:00:00 15:00:00 t [employer] [facility] [place] [place] Medicine Outpati ent Clinics 2019-03-09 2019-03-12 Outpatient Natasha, [facility] [id number] 15:30:52 21:00:00 Cerena K 00 2019-03-09 2019-03-[address] [facility] [id number] [facility] 18:36:00 15:30:00 2015-03-16 2015-03-22 Outpatient Yissel [facility] [id number] 18:33:00 20:09:00 Gael Stephenson 11 2014-10-25 2014-10-31 Outpatient DEREJE Garcia [facility] [id number] 20:37:00 20:05:00 Amrou 69 2013-11-13 2013-11-14 Outpatient DEREJE Garcia [facility] [id number] 03:43:00 18:45:00 Amrou Results Test Description [...] code = MCH) 29.0 pg 27.0-31.0 [facility] YovolsnATCPUXMCFN2619-83-57 08:51:0032.7[facility] HermannHEMATOLOGY 2019-03-12 08:51:0088.4[facility] TmxahsbNHUONGRHOP6928-93-40 08:51:0032.2[facility] HermannPARATHYROID AJXTOAE8475-08-30 08:51:001.05[facility] HermannPARATHYROID ZZDJOMZ0124-06-65 08:51:001.05[facility] HermannCHEM IGDSK7064-59-60 21:57:0083 [facility] HermannCHEM CPZLB9713-64-30 21:57:0011.4[facility] HermannCHEM PANEL 2019-03-11 21:57:008.2[facility] HermannCHEM HFUWF4497-97-12 21:57:0025[facility] HermannCHEM JASZA4195-23-92 21:57:92210Egsmspdg HermannCHEM NTGHF3976-30-76 21:57:003.4[facility] HermannCHEM PZCKQ4119-54-24 21:57:000.80[facility] HermannCHEM IINTX0681-53-13 21:57:31754Ujzinfcj HermannCHEM WBXGY9042-15-10 21:57:58210 [facility] HermannCHEM DQJXW4512-78-34 21:57:004[facility] HermannPARATHYROID LESHMSF0202-73-19 21:57:001.07[facility] HermannPARATHYROID BNQURQT5673-53-49 21:57:001.07[facility] HermannURINE AND FNSKA4750-17-67 21:57:004[facility] [place] URINE AND XNFKB8142-39-07 21:57:00Negative (03/11/19 4:57 PM)[facility] [place] URINE AND YEFRR8266-63-15 21:57:00<1.0[facility] HermannURINE AND STOOL 2019-03-11 21:57:00Negative (03/11/19 4:57 PM)[facility] STOOL 2019-03-11 21:57:00Negative *NA*(03/11/19 4:57 PM)[facility] STOOL 2019-03-11 21:57:00Negative (03/11/19 4:57 PM)[facility] STOOL 2019-03-11 21:57:001[facility]annURINE AND VMQMK4731-78-66 21:57:00Yellow *NA*(03/11/19 4:57 PM)[facility] AND GGFUR1336-93-01 21:57:00Slight *ABN*(03/11/19 4:57 PM)[facility] AND EZUIQ6165-57-64 21:57:00 Test Item Value Reference Range Interpretation Comments UA Spec Grav (test code = UA Spec 1.016 1 Grav) [facility] AND [id number] 21:57:00 Test Item Value Reference Range Interpretation Comments UA pH (test code = UA pH) 8.0 1 5.0-8.0 [facility]annURINE [id number] 21:57:007.4[facility]INE CHEM 2019-03-11 21:57:28164Mtuvqvzr HermannURINE TTXQ5167-47-55 21:57:50017Jxxirgzl HermannURINE HFVL3947-88-02 21:57:52865Wfrruziv HermannURINE TEJG6835-23-12 21:57:00Negative (03/11/19 4:57 PM)[facility] HermannCHEM FZYMY1611-15-55 09:03:00 109[facility] HermannCHEM LQJNA0179-75-08 09:03:002.9[facility] HermannCHEM PANEL 2019-03-11 09:03:96819Zgifmwey HermannCHEM JIPNF0989-75-56 09:03:000.51[facility] HermannCHEM YQUUF5438-58-20 09:03:004[facility] HermannCHEM DOBAT9979-73-98 09:03:0079[facility] HermannCHEM CLWNT1813-24-21 09:03:007.6[facility] HermannCHEM IKJAQ8149-74-99 09:03:009.9[facility] HermannCHEM JVVPT8862-13-57 09:03:0027 [facility]annCHEM FPJVS6958-47-76 09:03:76150Verpeqnc HermannCHEM PANEL 2019-03-11 09:03:003.7[facility] HermannCHEM CSXRO2826-58-49 09:03:002.0[facility] WjolwjkJFEKEITLEV1071-25-66 09:03:008.1[facility] AlpuugkBWHJTBQYLA4370-44-39 09:03:49516Bxkklyrm HitiehyRRGMZQRNNY6929-87-25 09:03:0016.6[facility] [place] BSNVWDGRLN3668-36-52 09:03:00 Test Item Value Reference Range Interpretation Comments MCH (test code = MCH) 29.0 pg 27.0-31.0 [facility] FkyqihbLMIFRHWQKA9727-46-53 09:03:0033.0[facility] HermannHEMATOLOGY 2019-03-11 09:03:003.64[facility] WtizrzeZTTUXOOSJZ2450-06-45 09:03:0010.6[facility] EzcjhpzYLSVPWPVLF8831-37-42 09:03:009.3[facility] IcukefpMZXGQFHLSD9849-30-63 09:03:0087.8[facility] SgmfyyvUKXZAHJQGR8178-12-32 09:03:0032.0[facility] [place] IWKIEQZDKL0042-27-75 09:03:004.0[facility] BvvjngtCRSDAQKDAL8514-00-33 09:03:00 62.5[facility] BvwiiprFNXAXNFTKB7995-59-79 09:03:0027.8[facility] HermannHEMATOLOGY 2019-03-11 09:03:004.5[facility] WtbilihDXLPCLWGZB8988-78-38 09:03:005.8[facility] JmhrgfpIARIFQHUGK5748-48-58 09:03:002.6[facility] GmlozkuEWMCSDHTFN2052-71-51 09:03:000.4[facility] YqjnvncZBDFQFTPLP9842-08-85 09:03:000.4[facility] SGTNFNPPWC0823-12-10 09:03:001.2[facility] AeyjillSLYWVYBBIP6113-51-87 09:03:000.1 [facility] HermannPARATHYROID GPYFESI9948-07-92 09:03:000.91[facility] PARATHYROID XXXBHII9646-75-54 09:03:000.96[facility] NcpupmjZDKOHLWZXZ7613-15-00 19:00:000.3[facility] HyrytumSKISLPBWKF3248-87-06 19:00:000.4[facility] BLRHYVUGVY2936-78-06 19:00:002.8[facility] EjswpnzLDZMDNAYEM1100-00-01 19:00:000.1 [facility] WsmufkwPJKVDUSOAY7957-35-11 19:00:0061.6[facility] HermannHEMATOLOGY 2019-03-10 19:00:0029.1[facility] ZepwwuhZJDCZJKVGD4474-18-41 19:00:001.2[facility] QxofgpmAZFQUYJMTZ3828-35-72 19:00:004.5[facility] LjwdfguNDXKUZPZQA0879-67-77 19:00:005.8[facility] ZgmseeaBQVKDJOMMU4252-35-83 19:00:003.6[facility] [place] OLTZKWOFQM8397-11-06 19:00:007.9[facility] TskomprIUVBOSCOPX5898-81-34 19:00:00 34.6[facility] CoeoxiwQBRSVVWHZI6565-39-54 19:00:00 Test Item Value Reference Range Interpretation Comments MCH (test code = MCH) 28.6 pg 27.0-31.0 [facility] HivccudXPEJKAUUSM6979-53-81 19:00:0088.5[facility] HermannHEMATOLOGY 2019-03-10 19:00:96582Wxktdsei AcxzftqWSRXHVPBWG9515-53-13 19:00:0016.7[facility] MuudinyAJMGASLLIN4149-08-92 19:00:0032.3[facility] PchrzxqXDNTPNFOVX1378-59-72 19:00:0011.2[facility] IwzijxoINHZKXNHOR6147-33-79 19:00:003.91[facility] WFITYFJMGC4839-47-58 19:00:009.5[facility] PoccrbjKLQWFDUOBJ1371-58-66 19:00:00 Test Item Value Reference Range Interpretation Comments INR (test code = INR) 1.06 1 0.85-1.17 [facility] HrwvvxrLASZFEVURE6976-37-59 19:00:00 Test Item Value Reference Range Interpretation Comments PT (test code = PT) 13.6 s 12.0-14.7 [facility] RqysusdVDSDZDYMCT4793-65-21 19:00:00 Test Item Value Reference Range Interpretation Comments PTT (test code = PTT) 36.3 s 22.9-35.8 [facility] HermannCARDIAC OAUKYRA4525-73-01 11:47:000.30[facility] HermannCHEM PANEL 2019-03-10 11:47:001.6[facility] HermannCHEM VNGAV3189-27-24 11:47:002.1[facility] QetpyhdBETBTK3798-68-44 11:47:00 Test Item Value Reference Range Interpretation Comments VLDL (test code = VLDL) 39 1 [facility] UjtzairUYLGXF8412-89-33 11:47:0036[facility] IzduozdBBEPLH4239-60-48 11:47:0028[facility] BpdagorUZUDWW5540-19-29 11:47:41519Zobrjyjb HermannLIPIDS 2019-03-10 11:47:00385Xywgpprm UpfzmpoEYTEFE0949-37-90 11:47:00 Test Item Value Reference Range Interpretation Comments CHD Risk (test code = CHD Risk) 3.68 1 3.90-5.80 [facility]SPE[facility] EDRGGRAUE7002-94-91 11:47:004.8[facility] HermannANEMIA DNONL9673-65-35 09:18:49188Olkppqju HermannANEMIA LTHHR4758-58-86 09:18:004.4 [facility] HermannCARDIAC TTDZBEK4847-62-71 09:18:0010[facility] HermannCHEM PANEL 2019-03-10 09:18:29556Vhzqnupe BbfikvfUZJEUHXETX8265-51-61 07:49:00 Test Item Value Reference Range Interpretation Comments PTT (test code = PTT) 42.4 s 22.9-35.8 [facility] CrcidckMQFVOZLBXG0891-93-91 07:49:00 Test Item Value Reference Range Interpretation Comments PT (test code = PT) 13.5 s 12.0-14.7 [facility] MzlpnlkKFELJYNTZU2812-60-66 07:49:00 Test Item Value Reference Range Interpretation Comments INR (test code = INR) 1.05 1 0.85-1.17 [facility] HermannCARDIAC RQDTOSN0208-76-73 07:00:000.48[facility] HermannCARDIAC XGZMYAL0354-79-12 22:16:000.50[facility] HermannCARDIAC GEXGHKE6058-11-64 22:16:00 63[facility] HermannCHEM NATEK1062-29-57 22:16:001.2[facility]HE[facility]OLOG[facility] 2019-03-09 22:16:00 Test Item Value Reference Range Interpretation Comments PTT (test code = PTT) 31.7 s 22.9-35.8 [facility] SecvovrLJHIIYOPUL8120-10-28 22:16:00 Test Item Value Reference Range Interpretation Comments INR (test code = INR) 1.07 1 0.85-1.17 [facility] UywxrcwPZRVBYXCPJ3222-46-05 22:16:00 Test Item Value Reference Range Interpretation Comments PT (test code = PT) 13.7 s 12.0-14.7 [facility]CHE[facility] LXISM2611-91-14 09:12:003.5[facility]annCHEM PANEL 2015-03-22 09:12:001.8[facility] KznridwOEXOXJTIRPCO6422-42-79 09:12:0022[facility] ZczrkdoDXKCAKOYTVZV9893-95-83 09:12:008.9[facility] HevqvpdMOJMJFGEAHBW3743-06-54 09:12:0014.6[facility] JhoinciQDEWHKITYXQS7671-47-56 09:12:68966Wpaxmlcy Cabrera YALSHDVOLLBH1128-37-52 09:12:003.6[facility] YjlxujsWAEIZGPJTOWB3408-39-41 09:12:000.9[facility] PstcckaPYZZRCMNWZCI9223-69-57 09:12:47271Qwcuqtyj [place] GCXIGVIUGPXN6872-43-56 09:12:0081[facility] EtojlhtZCUHNYAOANUM3639-74-37 09:12:00 10[facility] ZrhqixxGNSAQQDWGZBF9448-25-90 09:12:0075[facility]HE[facility]OLOGY 2015-03-22 09:12:007.5[facility] KotntfwWITNUTJVUS1848-02-79 09:12:41247Ryqzeerp OfpgyydTRBUQVRPEB9851-53-04 09:12:0011.7[facility] LimbrytWSACHLXDCF4001-41-86 09:12:0032.6[facility] NvjyeglKNCUROQLCZ0449-00-72 09:12:0084.1[facility] PZWAVCUHIL0743-74-63 09:12:003.87[facility] PhffhgwAMDJIENNAR2552-07-92 09:12:00 10.4[facility] VtshngcSAMBZDSAYJ9944-54-25 09:12:0031.9[facility]HE[facility] 2015-03-22 09:12:00 Test Item Value Reference Range Interpretation Comments MCH (test code = MCH) 26.8 pg 27.0-31.0 [facility] WtumdwrQJWUUICFWR9692-24-14 09:12:0017.6[facility]HE[facility]OLOGY 2015-03-22 09:12:001.0[facility] RupfxotHUZUZWXZEW7952-26-31 09:12:007.4[facility] HritvhyTISOHTBLSK1421-55-54 09:12:0038.6[facility] EnzrwkgPJTJZIWEWL1976-58-97 09:12:0052.0[facility] IzfxzvbWWNZOCZUAZ9024-27-40 09:12:001.0[facility] TLGDDJKQGR8765-48-54 09:12:006.1[facility] YobywarXXWOQWZZJJ0449-84-55 09:12:000.1 [facility] ZciugmlFWWQPUQYEN2246-30-39 09:12:000.9[facility]HE[facility]OLOG[facility] 2015-03-22 09:12:000.1[facility] LxcthkaIUEMYSXKBI3162-47-13 09:12:004.5[facility] WearpxcCRNJJGKMKA0162-43-34 16:38:005.0[facility] NrszzrrCWYMVMPDIT6392-00-28 16:38:0014.5[facility] WibooahCFAMBKJWNK8072-93-09 16:38:0016.2[facility] EKPAMQUNTX9395-92-34 16:38:0015.1[facility] OfxcjujINACCYTYTZ6215-78-31 16:38:00 49.2[facility] ZerzmmxAONLYVRGFF2407-32-51 16:38:000.34[facility] HermannIMMUNOLOGY 2015-03-21 16:38:006.8[facility] CjdcvegJQLRHFWNTE4777-72-39 16:38:003.35[facility] GzgmnpjUDVESAYXGJ6203-13-74 16:38:000.99[facility] OkayjvyAAMVWGZBYP2182-48-02 16:38:001.10[facility] RqvwzjrWQKIPNGZSI6066-71-30 16:38:001.03[facility] CHEM XJPWS8673-37-76 09:35:59626Patrlahd HermannCHEM WZZMU5307-14-93 09:35:009.1 [facility]annCHEM VQGKD3357-54-87 09:35:003.8[facility] HermannCHEM PANEL 2015-03-21 09:35:0021[facility] HermannCHEM WXGMA1775-28-45 09:35:12285Ngigbsyu HermannCHEM HVPNQ8707-94-14 09:35:0011[facility] HermannCHEM QKDGN4648-93-71 09:35:61334Gwuqvcgz HermannCHEM CONMN0024-27-45 09:35:0083[facility] HermannCHEM RDEEQ8916-67-72 09:35:000.7[facility] HermannCHEM QARIB4631-00-06 09:35:0014.8 [facility] HermannCHEM ALFIO9185-53-83 09:35:001.8[facility] HermannCHEM PANEL 2015-03-21 09:35:004.1[facility] UwguiliOCJUEDZQZX8623-66-33 09:35:000.1[facility] SactjagVLMGHUZZVE7965-84-52 09:35:000.7[facility] VaafhykGEIQPMYILL3427-12-94 09:35:001.0[facility] BforhqjGOYUYAKIHK4993-21-96 09:35:001.2[facility] RMFFOLVVYP6706-29-91 09:35:003.7[facility] HyggjucMMPBSPPTJO3114-98-77 09:35:005.4 [facility] PcglyziWEIXRCJSCZ7019-95-17 09:35:006.9[facility] HermannHEMATOLOGY 2015-03-21 09:35:000.1[facility] LtnifxuSLTNNOMPXI1365-68-22 09:35:0054.0[facility] MjazttbPLLBNZLYLQ6734-48-66 09:35:0036.9[facility] NqlatlyIWIMVKRSZF1435-05-90 09:35:0032.9[facility] CkrmruiXAFOHKGZNS5506-39-81 09:35:0010.8[facility] DBNNXWMJRD4937-04-58 09:35:003.91[facility] GfhseflQFSRYNCSVN7995-78-93 09:35:00 10.0[facility] YiaojrtMKGPNPZOAG3547-72-49 09:35:0032.9[facility] HermannHEMATOLOGY 2015-03-21 09:35:0017.2[facility] JpbgameCUOLRFEUUV0514-93-18 09:35:00 Test Item Value Reference Range Interpretation Comments MCH (test code = MCH) 27.7 pg 27.0-31.0 [facility] DsmiutaSYFLLVOVJK9476-05-26 09:35:0084.2[facility] HermannHEMATOLOGY 2015-03-21 09:35:007.5[facility] EeefnvsVODWCODZXC3453-37-15 09:35:64683Arklaabc AutxufqMRQZPGLXKX3292-78-53 04:39:036.4[facility] HermannCHEM CKYQM1406-00-71 08:41:40548Obkgyxya HermannCHEM RDLXW7553-96-31 08:41:01115Iwxhqzww HermannCHEM FXFRB6918-29-83 08:41:0071[facility]annCHEM UXEQE0411-45-09 08:41:007[facility] HermannCHEM PKOGZ4955-64-17 08:41:000.7[facility] HermannCHEM QMBLJ4530-14-86 08:41:003.9[facility] HermannCHEM SEGHF2841-19-64 08:41:009.2[facility] HermannCHEM GDBMQ7841-73-59 08:41:46609Xspqhwva HermannCHEM TUMZQ0304-83-80 08:41:0023 [facility]annCHEM AVSHF7078-01-47 08:41:0013.9[facility] HermannCHEM PANEL 2015-03-20 08:41:001.9[facility] HermannCHEM OKPIE6200-04-75 08:41:003.6[facility] SdoaysaAMZBVAHLAO7691-62-85 08:41:0033.2[facility] UidbwkiAGOJOBYZAW9658-18-85 08:41:25696Bamjyuqb DmvwofnFDQAHIQAFC8774-23-09 08:41:0017.2[facility] CFXPNFFHSB9058-88-42 08:41:004.07[facility] RefahohHFNUYNUROC3403-84-70 08:41:00 9.6[facility] UtikadmETMPYRKIKK4513-56-52 08:41:0011.2[facility] HermannHEMATOLOGY 2015-03-20 08:41:0033.6[facility] WwxsuunDEMSIAHKLF7130-42-43 08:41:0082.6[facility] BlutpdxVYBAZWZEUJ7303-39-90 08:41:00 Test Item Value Reference Range Interpretation Comments MCH (test code = MCH) 27.4 pg 27.0-31.0 [facility] QvmozlbZKZRCPKADD2544-23-08 08:41:007.7[facility] HermannHEMATOLOGY 2015-03-20 08:41:0055.3[facility] JrozudaYAVAWBURAT0320-90-29 08:41:001.9[facility] QsiifgmSXQYEVCKYO4494-91-79 08:41:0035.6[facility] MymwdbpEFKSIMAJAF0522-01-97 08:41:006.2[facility] LmxzvpiRXFWKUMPGS4248-11-18 08:41:001.0[facility] OLUHDCUCLH8056-80-47 08:41:005.3[facility] WlcpdqnYPPFEQBJZT1538-09-58 08:41:003.4 [facility] DhuidhkZELBBXDYCH9870-33-04 08:41:000.6[facility] HermannHEMATOLOGY 2015-03-20 08:41:000.1[facility] TfmqjwiELCFZUJSAJ6641-44-21 08:41:000.2[facility] CosktzcEYVQKQAHIH2972-03-15 08:41:02926Hrqwpaxq NrytjvfVQFSCDTRZH6316-74-01 16:56:000.91[facility] TpdjtmdRETJUOCEUD8334-40-83 16:56:00Negative (03/19/15 11:56 AM)[facility] VzgrfezCONRSZZPXM8212-16-09 16:56:00Non Reactive *NA*(03/19/15 11:56 AM)[facility] TuwtbsvGVDCWWWFJB6958-96-02 21:44:00Negative *NA*(03/18/15 4:44 PM) [facility] HermannVIRAL - TTVVTKUR4391-64-03 21:44:00<0.90[facility] CARDIAC GNPUNKG3090-64-21 00:57:00<0.02[facility] MtszopyYQRHQSWFUG8004-59-76 18:50:00 Test Item Value Reference Range Interpretation Comments PT (test code = PT) 14.5 s 12.0-14.7 [facility] EddpqquSXBHAVSNVP7070-37-10 18:50:001.12[facility] HermannHEMATOLOGY 2015-03-17 18:50:00 Test Item Value Reference Range Interpretation Comments PTT (test code = PTT) 31.2 s 22.9-35.8 [facility] HermannCARDIAC BCFXDVQ4541-80-29 17:15:00<0.02[facility] HermannCHEM DRBHV2453-87-29 17:15:0071.0[facility] HermannBODY XBYAQE7572-18-16 16:15:0042 [facility] HermannBODY BDDBKP0440-18-52 16:15:009[facility] HermannBODY FLUIDS 2015-03-17 16:15:001[facility] HermannBODY KCEUZW5910-92-13 16:15:0090[facility] HermannBODY TGSJJJ2834-02-14 16:15:00Clear (03/17/15 11:15 AM)[facility] BODY OOBMHV2526-50-46 16:15:00Colorless (03/17/15 11:15 AM)[facility] HermannBODY CRAQGI3397-31-68 16:15:00 Test Item Value Reference Range Interpretation Comments Tube Num CSF (test code = Tube Num CSF) 3 1 [facility] HermannBODY MGMQII5171-30-43 16:15:00Colorless (03/17/15 11:15 AM) [facility]annBODY XOUIUR4114-45-01 16:15:003[facility] HermannBODY FLUIDS 2015-03-17 16:15:86234Bfpaijhm HermannBODY QNLXTT1122-23-61 16:15:0071[facility] VskqnpsDHXBBXHWPP2172-89-58 16:15:00Non Reactive (03/17/15 11:15 AM)[facility] HermannMOLECULAR YNDGSHNXJY1535-20-83 16:15:00Negative 9(03/17/15 11:15 AM) [facility] HermannMOLECULAR MYLVQZOHXR0285-76-59 16:15:00Negative 8(03/17/15 11:15 AM)[facility] HermannVIRAL - JRVMJJCU2359-18-12 16:15:00Negative (03/17/15 11:15 AM)[facility] HermannBACTERIAL - KDYPCEDF3323-01-95 12:34:00Negative (03/17/15 7:34 AM)[facility] RjkssbiJNLHLNLLDB0470-69-23 04:26:22743Csurvgii HermannBLOOD BANK BLHSBAB2244-87-94 02:18:00Negative (03/16/15 9:18 PM)[facility] HermannCHEM PANEL 2015-03-17 02:18:000.7[facility] HermannCHEM IPJVC1723-57-75 02:18:0012[facility] HermannCHEM ZEXEK8490-94-09 02:18:003.9[facility] HermannCHEM JJZCN7645-15-87 02:18:005[facility] HermannCHEM FGQED7670-54-06 02:18:02388Btexkumw HermannCHEM MTRTW6731-11-56 02:18:000.2[facility] HermannCHEM MFKCR8740-65-59 02:18:0019 [facility]annCHEM XCBVY4139-69-64 02:18:006.8[facility] HermannCHEM PANEL 2015-03-17 02:18:002.9[facility] HermannDRUG UANYAV0472-91-45 02:18:00See Note *NA*(03/16/15 9:18 PM)[facility] HermannDRUG JFLYJS0024-94-92 02:18:00Negative *NA*(03/16/15 9:18 PM)[facility] HermannDRUG FASWGQ8570-28-20 02:18:00Negative *NA*(03/16/15 9:18 PM)[facility] HermannDRUG HIFNKN0933-80-36 02:18:00Negative *NA*(03/16/15 9:18 PM)[facility] HermannDRUG GEVFBP8498-22-12 02:18:00Negative *NA*(03/16/15 9:18 PM)[facility] HermannDRUG BMNURA0016-69-05 02:18:00Negative *NA*(03/16/15 9:18 PM)[facility] HermannDRUG HDYOIW1914-55-75 02:18:00Negative *NA*(03/16/15 9:18 PM)[facility] HermannDRUG CZBYRZ4007-77-70 02:18:00Negative *NA*(03/16/15 9:18 PM)[facility] HermannDRUG SMOJFB9610-52-10 02:18:00Negative *NA*(03/16/15 9:18 PM)[facility] HermannDRUG RKZFGZ3179-90-34 02:18:00Negative *NA*(03/16/15 9:18 PM)[facility] GkmycvwAHTWQWWSBP0508-28-63 02:18:00 Test Item Value Reference Range Interpretation Comments PTT (test code = PTT) 29.7 s 22.9-35.8 [facility] HermannPARATHYROID OWKXULI7150-37-81 02:18:001.15[facility] PARATHYROID KNFEKJM8823-99-98 02:18:001.12[facility] HermannURINE AND STOOL 2015-03-17 02:18:00Negative *NA*(03/16/15 9:18 PM)[facility]URINE AND STOOL 2015-03-17 02:18:00Negative (03/16/15 9:18 PM)[facility]annURINE AND STOOL 2015-03-17 02:18:00Negative (03/16/15 9:18 PM)[facility]annURINE AND STOOL 2015-03-17 02:18:00Negative (03/16/15 9:18 PM)[facility]annUR[facility] AND STOOL 2015-03-17 02:18:00<1[facility]annURINE AND MWJUH7707-27-74 02:18:007.0 [facility]annURINE AND GDGXF3911-48-70 02:18:00Clear (03/16/15 9:18 PM) [facility]annURINE AND OFKTA0873-75-56 02:18:001.009[facility]annURINE AND HOOJY1196-15-94 02:18:00Light Yellow *NA*(03/16/15 9:18 PM)[facility] OGXAKMBOQF2125-65-08 13:30:00 Test Item Value Reference Range Interpretation Comments PTT (test code = PTT) 36.1 s 22.9-35.8 [facility] JaqdpvzTKRFRSLHCY0130-63-26 13:30:00 Test Item Value Reference Range Interpretation Comments PT (test code = PT) 14.6 s 12.0-14.7 [facility] TarpjgaPKMKHPSCOK9281-08-54 13:30:001.13[facility] HermannTOXICOLOGY 2014-10-31 13:30:039641Wijyrshn AzptafeBUNTVKWTYL4183-14-15 13:30:0025.2[facility] HermannCHEM YJYPH6309-48-99 06:18:003.1[facility] HermannCHEM XXQNM1307-74-17 06:18:001.8[facility] AclbhojETIRCYVUZFJO3221-92-45 06:18:0014.1[facility] YBRLYDZLHYDS5224-30-91 06:18:83326Lejkzusw BxuwsrtEFSNEPTFEGTV9210-80-23 06:18:84853Xwrubuor UinkmxhSOPKIXAKYXTT1602-51-26 06:18:13252Vwlbokgc [facility] KPNQVGTADXWL6940-97-63 06:18:004.1[facility] MoczqdqSOHLLHKNIZOW7989-29-01 06:18:008.5[facility] BfhloceUFRTXFSFDRZN0099-40-05 06:18:0025[facility] CCFKQRYWNDGO3344-37-90 06:18:000.6[facility] LuzqotyLBJYGCVHEDFI1497-69-30 06:18:0062[facility] WcnxkryHVKRWWXTNMTZ9741-69-34 06:18:006[facility] HRNEWYIKCL5211-55-95 06:18:000.1[facility] XpiwkqlPYHQDZJCQE7062-80-49 06:18:005.7 [facility] VanaijmJJGVJMHYKX4823-08-94 06:18:005.0[facility] HermannHEMATOLOGY 2014-10-31 06:18:0031.1[facility] VrskrtqXGISMXVEWS9082-01-11 06:18:005.7[facility] HippcjeSZJOOCQZKO9903-38-23 06:18:0057.7[facility] YbadvakSZATUGFBTB9665-89-03 06:18:000.5[facility] VnujnmhMAQQEPEKOL3528-03-79 06:18:000.6[facility] GSAWQFGRRJ9813-94-64 06:18:000.5[facility] UixjpdlMETGYEVYOG6121-71-74 06:18:003.1 [facility] WejywvkQKBIRMHAYV1884-06-29 06:18:001.08[facility] HermannHEMATOLOGY 2014-10-31 06:18:00 Test Item Value Reference Range Interpretation Comments PTT (test code = PTT) 33.9 s 22.9-35.8 [facility] VhwvxakCFKKNXZNFG5926-00-30 06:18:00 Test Item Value Reference Range Interpretation Comments PT (test code = PT) 14.1 s 12.0-14.7 [facility] RsrfmbjTYPASEXAIC5670-25-67 06:18:0010.0[facility] HermannHEMATOLOGY 2014-10-31 06:18:003.22[facility] XjbjfpsEKXEQXLTAS0625-28-47 06:18:0028.9[facility] HyadtfjGSJZLJDCZT2975-15-49 06:18:009.7[facility] VqpfowaFFUJVVFBVF1440-91-16 06:18:0033.4[facility] ApbxxlaXEJSYWMEMA4156-42-36 06:18:00 Test Item Value Reference Range Interpretation Comments MCH (test code = MCH) 30.0 pg 27.0-31.0 [facility] SxcgwcsOZXUKKCPDY6061-66-07 06:18:0089.8[facility] HermannHEMATOLOGY 2014-10-31 06:18:008.2[facility] MnscfbuISGSHRWHWH6961-35-83 06:18:40513Hkkepikv KupqbmqRSXTTNAXPB9627-28-05 06:18:0016.4[facility] HermannPARATHYROID PROFILE 2014-10-31 06:18:001.08[facility] HermannPARATHYROID VYFXBNJ3780-07-16 06:18:00 1.05[facility] HermannCARDIAC RNEPQNK8988-90-07 07:00:0070[facility] HermannCHEM ZOWWB0009-61-67 07:00:003.2[facility] HermannCHEM FPOAS4793-53-04 07:00:001.8 [facility] SdtmmdmDOJPTDPTZMBX4408-60-06 07:00:0010.6[facility] HermannELECTROLYTES 2014-10-30 07:00:0079[facility] YwdqsxcSVUNPBYSDLCR6487-96-60 07:00:008[facility] BsqsftxPSAHUTKDIRMX4529-40-32 07:00:000.6[facility] JulepofZGAVCAYEZXQM8505-60-45 07:00:0027[facility] DzczvqpLZJVKFASLRZX5724-52-49 07:00:008.1[facility] OJKLLAMZNNVN2847-47-72 07:00:003.6[facility] KeechclEVRBZRDXRMOI8056-19-59 07:00:14037Sbkotnah RxxqyriSJCVUUFWTXRD5579-58-29 07:00:61233[facility] [place] IUOLPMLGXXOE8150-19-47 07:00:89253Nwvekmli SfdmydtSQJFNOCAYB6764-00-38 07:00:00 0.4[facility] WnuzjikBSNPZOXOVY8737-19-68 07:00:004.9[facility] HermannHEMATOLOGY 2014-10-30 07:00:000.6[facility] IdldpveSCPHNLUZEV3012-43-86 07:00:0049.4[facility] NuupbguPBOVAEUVET2266-09-33 07:00:005.8[facility] DblencmFJDPCRAXIB1985-64-16 07:00:003.7[facility] MtaczbwGELAWXQQML5521-86-68 07:00:0041.4[facility] COLSPYXQXW1724-21-91 07:00:000.4[facility] FxbvwmsUVQDSCYVNZ9730-79-39 07:00:005.1 [facility] MglomboTZKVRFXXWO8658-43-09 07:00:00 Test Item Value Reference Range Interpretation Comments MCH (test code = MCH) 29.4 pg 27.0-31.0 [facility] YkdluoiNDAUJUKMJY1807-94-95 07:00:0027.5[facility] HermannHEMATOLOGY 2014-10-30 07:00:0016.3[facility] UpdxyseREZKGLDOWF2751-32-91 07:00:66671Bctvjqtq OohyipkLUEVYSUWRD6068-84-69 07:00:008.4[facility] BntynowRZUJTDFJXS3800-93-94 07:00:009.1[facility] FnglfjoIKEAJODWWP1117-90-62 07:00:0033.0[facility] FOYQNMRRZA6276-75-11 07:00:003.09[facility] NssmlgxHYDBOTHUTC8220-04-41 07:00:00 11.8[facility] VppdwteIUBVIYBXMR4542-83-90 07:00:0089.0[facility] HermannHEMATOLOGY 2014-10-30 07:00:00 Test Item Value Reference Range Interpretation Comments PT (test code = PT) 13.5 s 12.0-14.7 [facility] RjrwqjwFLAFQKZNYE8313-11-80 07:00:001.03[facility] HermannHEMATOLOGY 2014-10-30 07:00:00 Test Item Value Reference Range Interpretation Comments PTT (test code = PTT) 31.6 s 22.9-35.8 [facility] HermannPARATHYROID SNWJVSZ4735-85-31 07:00:001.10[facility] PARATHYROID OCXTJDE5562-41-05 07:00:001.11[facility] HermannCARDIAC ENZYMES 2014-10-30 05:00:0049[facility]annCARDIAC ZHVXRYD8926-87-34 05:00:00<0.010 [facility]annCARDIAC XEMNPNS6644-76-27 05:00:000.02[facility]annHEMATOLOGY 2014-10-30 05:00:000.2[facility] OsdkytqPDMCHGOKRQ1541-41-36 05:00:000.3[facility] LlqnmysDDOZQYMFGK4244-12-40 05:00:000.4[facility] HfcykwbVMFHITBZOB2950-13-38 05:00:003.2[facility] LopqdxkCPFOKDXIWU5683-14-51 05:00:002.3[facility] ZXLWKIOUOP3790-45-90 05:00:004.8[facility] DctadlhLINSPJJGRQ1592-68-61 05:00:003.1 [facility] PfzpxcoJFSZSMHHUH1408-12-96 05:00:0053.2[facility] HermannHEMATOLOGY 2014-10-30 05:00:0038.5[facility] LrjjqlxTLQPANIXUB8486-93-70 05:00:0014.9[facility] UmvfziaAEFELXBLIV4775-76-17 05:00:0032.8[facility] HxpfrkcPLRMZTETOC8799-92-35 05:00:00 Test Item Value Reference Range Interpretation Comments MCH (test code = MCH) 30.3 pg 27.0-31.0 [facility] BmzrfgoDEOEOXKBVB9945-27-15 05:00:0092.2[facility] HermannHEMATOLOGY 2014-10-30 05:00:0016.3[facility] JuyjihbRSHLUSIWGT6431-33-03 05:00:004.9[facility] DdyinwsGNGYQQWSAX9992-62-02 05:00:001.61[facility] GadtkalAPVXSDBEXA8429-08-61 05:00:006.0[facility] RgugmfeHQYPHDLBKH3955-14-88 05:00:008.1[facility] XCHRKHUIZL2332-69-90 05:00:0073[facility] HermannPARATHYROID ZPCYAHM6820-25-45 05:00:000.63[facility] HermannPARATHYROID EJQYGKQ7256-51-75 05:00:000.62[facility] HermannCARDIAC WZSEBRO9141-00-17 23:18:00<0.02[facility] HermannCARDIAC ENZYMES 2014-10-29 23:18:00<0.010[facility] HermannCARDIAC UQABSCO9690-19-22 23:18:0083 [facility]annCARDIAC ZQPORKL8366-91-45 23:18:000.7[facility] HermannCARDIAC BNSLUMY4224-12-86 23:18:000.6[facility] WytsdqbMTQDTGSZFC0508-23-37 21:45:501021 [facility] HbkemhpDFWJPLPROE6596-36-42 21:45:0023.9[facility] HermannCHEM PANEL 2014-10-29 10:42:000.7[facility] HermannCHEM NJGRM0872-68-51 07:00:001.8[facility] HermannCHEM LSVHZ8159-10-97 07:00:002.8[facility] NgrmotuMTPZRIHVFFPY5738-86-00 07:00:0011.0[facility] EhcsiosDIQDAEYGFPIA1882-35-89 07:00:0010[facility] BMCSAABBIFAA3705-61-89 07:00:0083[facility] GlhgwfaIZBNPPKXKBOR8962-53-26 07:00:00 145[facility] DvpoyfmLPXCELVUXBXL8279-78-27 07:00:000.7[facility] QZJGJLZGWOJW2416-15-35 07:00:72762Yabqmzoa PatmtukCWCPWDYKSMDU5491-37-48 07:00:0024[facility] MoktkbuHUCIQJVQAJTO7336-67-32 07:00:007.9[facility] JBGCTZDSYGBK5124-46-61 07:00:71310Zxirgqtg VeklcvcHZWGBUFTHCKJ8670-40-55 07:00:004.0[facility] GfhitdvFNYLVSZRHT1597-77-85 07:00:000.1[facility] GYILBYMBND1418-41-10 13:36:009.7[facility] DfnjiuaTCVJGITNZT2077-45-29 11:00:00 Test Item Value Reference Range Interpretation Comments Pat Od Value (test code = Pat Od 0.046 1 Value) [facility] AzqtfjuDJDXRZTHSY7320-44-21 11:00:00 Test Item Value Reference Range Interpretation Comments Pos CO Value (test code = Pos CO 0.392 1 Value) [facility] ZpbmdpnEHMEMMFNZE2818-60-54 11:00:00Negative (10/28/14 6:00 AM)[facility] HermannCHEM EWTIS0929-59-03 15:45:001.0[facility] LaubozpYOILCPTESQ9512-11-86 11:00:0024.4[facility] HermannTHYROID EJBHB9248-32-68 11:00:000.120[facility] HermannTHYROID EJYXW6963-90-68 11:00:000.96[facility] HermannCHEM ZHETL7133-91-48 07:00:001.6[facility] TllvxrnOVVKCERJHO3553-73-99 07:00:00Normal (10/27/14 2:00 AM) [facility] MjnvfalXSKHJSUUGT6988-37-18 07:00:00Normal (10/27/14 2:00 AM)[facility] JpxrvibEZVFLFWMIV6165-11-62 01:49:0028[facility] BluugppXHJWXVYBDI7593-24-11 23:06:00<0.1[facility] WsnuhdyKTFBEQJCLQ0920-06-86 23:00:00<0.1[facility] HermannBLOOD BANK DHRBBTX1256-21-76 21:24:00Negative (10/26/14 4:24 PM)[facility] HermannCHEM APFHJ3675-99-35 21:14:0070[facility] HermannCHEM BGYNL2225-18-51 21:14:000.15[facility] DlyfxoiPPBUBABODW9844-93-41 21:14:34984Zpkztbnu [place] ZGCPHXMVDN9015-60-79 21:14:000.21[facility] WahbgkuRNGJNCWUCR4943-40-16 21:14:00 29.2[facility] HermannCARDIAC XRSISSJ8411-82-46 18:30:00<0.010[facility] CARDIAC TAHMEIM6770-18-03 18:30:000.02[facility] HermannCHEM XBRZQ6768-42-31 18:30:000.14[facility] CiozcjdDUBKKAMBRG2427-08-57 18:30:00Normal (10/26/14 1:30 PM)[facility] IntafocIRSRYPYGMS0416-77-59 18:30:00Normal (10/26/14 1:30 PM)[facility] IjzhvnsGNCVQWKHEI9397-63-27 18:30:000.0[facility] OsabjbqMOSJYZWVLM8569-30-78 18:30:001.0[facility] HermannCHEM OQUKV4583-71-70 11:15:000.1[facility] HermannCHEM ZXCES6018-93-44 11:15:000.2[facility] HermannCHEM IMPWS1610-75-23 11:15:000.1 [facility] HermannCHEM WQKVY7636-80-39 11:15:0011[facility] HermannCHEM PANEL 2014-10-26 11:15:64716Xdgnutnw HermannCHEM CETHD2540-74-67 11:15:002.9[facility] HermannCHEM ZYJJJ8211-59-21 11:15:003.2[facility] HermannCHEM VHNQP7176-72-62 11:15:006.1[facility] HermannCHEM UGHXF4142-03-96 11:15:0023[facility] HermannCHEM DMZME6511-64-10 11:15:000.9[facility] XhcilryGKNXDNNQVH2008-25-82 11:15:000.1 [facility]annCHEM BXULE9304-48-12 09:01:000.05[facility]annDRUG SCREEN 2014-10-26 06:40:00Negative (10/26/14 1:40 [...] HermannURINE AND STOOL 2014-10-26 06:40:005[facility] GQDYW6272-38-25 06:40:0028[facility] YXJHW2168-46-76 06:40:00Negative (10/26/14 1:40 AM)[facility] XZVRH7362-81-07 06:40:00Negative (10/26/14 1:40 AM)[facility] SOYSP7644-32-35 06:40:00Negative (10/26/14 1:40 AM)[facility] IMIGZ8304-50-79 06:40:00<=1.0[facility] STOOL 2014-10-26 06:40:00Negative (10/26/14 1:40 AM)[facility] ST[facility]OL 2014-10-26 06:40:001.009[facility] OGKUB6439-54-99 06:40:00Slight *ABN*(10/26/14 1:40 AM)[facility] BYXRJ0329-47-52 06:40:00Yellow (10/26/14 1:40 AM)[facility] PBNVS2999-98-78 06:40:005.0[facility] TrhxpynASLDLYFOAD7309-40-99 02:45:00 Test Item Value Reference Range Interpretation Comments Angle (test code = Angle) 76.5 degrees 53.0-72.0 [facility] PkcybqgNWTDKMWLYX9421-99-31 02:45:00 Test Item Value Reference Range Interpretation Comments Max Amp (test code = Max Amp) 74.1 mm 50.0-70.0 [facility] AjsufywQZZDAJAIWI1252-92-80 02:45:0014.3[facility]annHEMATOLOGY 2014-10-26 02:45:00See Note 23(10/25/14 9:45 PM)[facility]annHEMATOLOGY 2014-10-26 02:45:003.4[facility] HscbrngDJCCPAYHDR2432-19-03 02:45:00 Test Item Value Reference Range Interpretation Comments K-time (test code = K-time) 1.0 min 1.0-3.0 [facility] YgbqsioAJGCFSAQLC0330-18-66 02:45:00 Test Item Value Reference Range Interpretation Comments R-time (test code = R-time) 5.1 min 5.0-10.0 [facility] JhsrjiyDOWNQLDHZD5685-92-54 02:45:000.9[facility] EqgagvyFQWOZN1175-97-02 02:45:0035[facility] QmflaebRBSRIW7100-25-10 02:45:0060[facility] HermannLIPIDS 2014-10-26 02:45:002.76[facility] MduslpeUDCENL7647-19-93 02:45:0054[facility] KffustkTGKRJA8300-53-25 02:45:11612Yhfzielo PjrpcodSTESRW3160-13-54 02:45:40432 [facility]annSPECIAL KAJWCKVSX8587-33-41 02:45:005.7[facility]annCHEM KTEOS5198-57-22 09:44:003.7[facility]annCHEM XLSXH5844-59-15 09:44:001.7 [facility] MccywihFWSFEYLAUARC0652-53-01 09:44:0013.6[facility] HermannELECTROLYTES 2013-11-14 09:44:0087[facility] AscsntuXRRIMHARRUTT6006-34-64 09:44:0023[facility] CyfrdszAGVAGLUCMNTZ8432-72-40 09:44:0070[facility] HjbnvbiLPTUZWWNSNDZ6976-78-07 09:44:000.8[facility] MrcaxvkISFYRMRXDMTA8596-45-88 09:44:66273Ljfvcykn [place] OQWTXVWDDZCA0734-50-20 09:44:004.6[facility] LjdakgpPEJRCARNKZON4974-73-73 09:44:70699Agkwjvcu OmxspdvWSVSHRSIQEIB9354-55-67 09:44:0024[facility] [place] AMPQSGOIBLLV9600-67-44 09:44:008.8[facility] QcwabutQPPCQAYIFG3983-54-79 09:44:00 1.97[facility] DonhhzhLAZMBYINCU8109-83-79 09:44:00 Test Item Value Reference Range Interpretation Comments PT (test code = PT) 22.1 s 12.0-14.7 [facility] UmnpyibKWPHMJ3139-45-45 09:44:0093[facility] GaqhkipXVJJUY1572-40-86 09:44:0066[facility] WubsjbnSDJQZH4275-69-99 09:44:67523Eexpnyst HermannLIPIDS 2013-11-14 09:44:49272Dtcuapfo LpwqktjUEOMLK4778-38-27 09:44:0038[facility] RjkmnffJNLCHV4898-95-38 09:44:005.18[facility] HermannDRUG HAGBYO6962-39-74 01:09:21Positive *ABN*(11/13/2013 20:09:21 [place])[facility]DR[facility] IZBWDJ7806-87-79 01:09:21See Note 5(11/13/2013 20:09:21 [facility]annDRUG TSWFJI3699-56-93 01:09:21Negative *NA*(11/13/2013 20:09:21 [place])[facility]annDR[facility] JBLXEA8963-46-55 01:09:21Positive *ABN*(11/13/2013 20:09:21 [place])[facility]annDR[facility] OPWPJW2396-35-79 01:09:21Positive *ABN*(11/13/2013 20:09:21 [place])[facility]annDR[facility] DGSYEG8910-59-71 01:09:21Negative *NA*(11/13/2013 20:09:21 [place]) [facility]annDR[facility] PQCKPE6620-22-54 01:09:21Negative *NA*(11/13/2013 20:09:21 [place])[facility]annDR[facility] JZMQJQ4936-93-55 01:09:21Negative *NA*(11/13/2013 20:09:21 [place])[facility]annDR[facility] IJNWNK9480-48-82 01:09:21Negative *NA*(11/13/2013 20:09:21 [place])[facility]annDR[facility] SMYHLP2384-53-17 01:09:21Negative *NA*(11/13/2013 20:09:21 [place]) [facility] SVHYF1818-43-78 01:09:002[facility]UR[facility] AND QBADP9263-74-21 01:09:00Slight *ABN*(11/13/2013 20:09:00 [place]) [facility] EHJSO0011-36-01 01:09:00Yellow *NA*(11/13/2013 20:09:00 [place])[facility] WERMH1532-97-85 01:09:006.5 [facility] QTYEV2719-14-59 01:09:001.024[facility] AND WFVMF3030-20-20 01:09:00Negative (11/13/2013 20:09:00 [place])[facility] VVNQU5905-58-80 01:09:00Negative *NA*(11/13/2013 20:09:00 [place])[facility] KDPXD9412-23-04 01:09:00Small *ABN*(11/13/2013 20:09:00 [place])[facility] STOOL 2013-11-14 01:09:00Negative (11/13/2013 20:09:00 [place])[facility] AND JTLOJ7909-70-24 01:09:003[facility]UR[facility] STOOL 2013-11-14 01:09:001[facility]URINE QLBI8117-54-66 01:09:00Negative (11/13/2013 20:09:00 [place])[facility]annCARDIAC QIGDFJF9268-61-82 19:43:00<0.010[facility] HermannCARDIAC BBAYMUG8196-11-96 19:43:00<0.02 [facility]annCARDIAC ZQVMOEW2063-05-51 19:43:60655Jxdvyusj HermannCARDIAC OYTWSGC8233-05-80 19:43:000.5[facility]annCARDIAC IIAIIOQ8007-88-13 19:43:00 0.5[facility] HermannCHEM PURTQ4236-30-59 19:43:000.1[facility]annCHEM PANEL 2013-11-13 19:43:000.2[facility] HermannCHEM IDOMR7231-51-20 19:43:000.1[facility]annCHEM VSMJX8007-11-46 19:43:0024[facility]annCHEM GUKTV7676-09-02 19:43:000.9[facility]annCHEM HSVDV0574-68-40 19:43:0040[facility]annCHEM AUWDZ1842-65-26 19:43:006.4[facility] HermannCHEM KKAHB8114-04-97 19:43:003.0 [facility]annCHEM RLDYF6006-02-08 19:43:003.4[facility]annCHEM PANEL 2013-11-13 19:43:51757Pqfppwwu HermannSPECIAL MDPFLVWZH1296-95-64 19:43:005.0 [facility]annCARDIAC OMMSQDS5662-49-81 09:29:000.6[facility] HermannCARDIAC RBDJGXB7498-99-78 09:29:00<0.02[facility] HermannCARDIAC DDKVUQQ7919-39-24 09:29:000.6[facility] HermannCARDIAC GKTFJGK2120-67-36 09:29:84953Uhspvdpy [place] CHEM GFVOG6607-36-77 09:29:0075[facility] HermannCHEM VBAOP4501-63-94 09:29:0013.1 [facility]annCHEM DHCHG3202-50-81 09:29:0026[facility]annCHEM PANEL 2013-11-13 09:29:79323Nvljycnz HermannCHEM PWXIM5353-15-75 09:29:008.6[facility]annCHEM TQYMQ6192-45-79 09:29:000.9[facility]annCHEM YXHYR1212-30-92 09:29:0012[facility]annCHEM HPHYT8229-91-67 09:29:004.1[facility]annCHEM SLRFW9776-00-85 09:29:52205Roxqxlpi HermannCHEM RLGVM2424-31-46 09:29:0081 [facility] EwfrwfeRASYREBPEP3441-40-24 09:29:004.1[facility] 2013-[facility]-13 09:29:001.4[facility] MxjdceyEDLDOUAZKC0208-29-09 09:29:000.0[facility] TiflkqnBDMEQXXTKQ8372-78-19 09:29:004.7[facility] UzeurctPNDJSVSSXW8058-89-73 09:29:006.0[facility] FsmtaacOTKHKKCWBA8918-95-02 09:29:000.5[facility] QVEDSJJBOG4839-01-28 09:29:0041.0[facility] SatxnrtPFNSXGHJHD8296-82-92 09:29:00 53.5[facility] WayjoadBSJBTVKPNR5927-94-91 09:29:000.2[facility]annHEMATOLOGY 2013-11-13 09:29:000.0[facility] MctbkocQLWBYOTHMW1055-38-83 09:29:00 Test Item Value Reference Range Interpretation Comments PT (test code = PT) 24.2 s 12.0-14.7 [facility] DstadcpKVIKWOOAZP1849-23-29 09:29:002.22[facility]annHEMATOLOGY 2013-11-13 09:29:00 Test Item Value Reference Range Interpretation Comments PTT (test code = PTT) 39.1 s 22.9-35.8 [facility] UsjdbjzQTXDMPORHL3067-99-88 09:29:64608Sjllqgqk HermannHEMATOLOGY 2013-11-13 09:29:0017.1[facility] QyvockjANLSPRANPT5603-69-90 09:29:007.0[facility] YlzmakiUDWVCHJATN7019-12-24 09:29:0033.7[facility] CknnabiCOSHEMHNEL7614-91-87 09:29:00 Test Item Value Reference Range Interpretation Comments MCH (test code = MCH) 28.2 pg 27.0-31.0 [facility] SxoaecxGJPMOLJUZJ7674-08-62 09:29:004.35[facility]annHEMATOLOGY 2013-11-13 09:29:0011.4[facility] CtduwpvRMFYFAYTEZ4086-26-17 09:29:0083.7[facility] IhymlagRNISHNAWFX3278-29-54 09:29:0012.3[facility] ScufmqaBEOXOVTPSM5409-18-73 09:29:0036.4[facility] ZmbuhlcELTIVMXIB0054-03-73 07:35:0015.8[facility] BFTIFQUED6617-38-77 07:35:80695Cemsnfpc KxxqxnwEENKXSUYC0610-85-07 07:35:0023 [facility] VegzyonRQGLPKOPE3201-04-62 07:35:57996Dlsbkbsk HermannCHEMISTRY 2013-05-12 07:35:000.3[facility] JjzcawiYLKTIIMWG6601-73-95 07:35:007.7[facility] OduuwsdEWJJDCQOX4332-12-82 07:35:005[facility] UmpbnqjQFFOBXSJH0027-36-74 07:35:00 72[facility] EnojmxzVJNHUZETM8485-07-73 07:35:25716Vgsxxhdr HermannCHEMISTRY 2013-05-12 07:35:003.8[facility] UihwqskCTTRACOMYA7972-31-23 07:35:007.8[facility] UdfuvyqGRDJDHHZNA9480-83-97 07:35:003.5[facility] XcrrrfiEKXRICSXYQ0147-97-85 07:35:000.9[facility] MvvdskdTOUVDQQPAC1467-71-95 07:35:000.3[facility] QLHXQMOYMK2015-15-78 07:35:000.1[facility] KoaelmoGUOYBGEXCA1194-41-68 07:35:007.4 [facility] CwzkseuCMVTXAIBPZ0418-63-86 07:35:000.7[facility]annHEMATOLOGY 2013-05-12 07:35:0027.8[facility] TlomwrvHUISKRIIXF4020-68-36 07:35:002.7[facility] UxmqygmSZGWBIGAUR7415-57-49 07:35:0061.4[facility] ZbikyhcCNDYBPLVWA7638-75-47 07:35:0088.5[facility] FmgsrjiMEDMDMIGDL6950-16-89 07:35:0015.2[facility] BWVHYXSEUN5249-00-56 07:35:0032.5[facility] EbsveltRHBGCZJUGQ6191-76-71 07:35:00 252[facility] XkxpokoKGRHHSSZMH2091-43-26 07:35:007.7[facility]annHEMATOLOGY 2013-05-12 07:35:0012.8[facility] PaosuqrMPREGATMIB9375-14-82 07:35:003.82[facility] QbomecdRTPOMOYOLB1378-71-49 07:35:0011.0[facility] XzsybivTOHBXCZCYL2769-65-86 07:35:0033.8[facility] TxuarcxWWAXUNFAZR7556-87-51 07:35:00 Test Item Value Reference Range Interpretation Comments MCH (test code = MCH) 28.8 pg 27.0-31.0 N [facility] APVRGGP8945-01-48 11:52:0089[facility] TJLOTJXJH1941-11-21 07:00:00Negative (05/11/2013 02:00:00)[facility] DCAXCWAMS9214-30-68 07:00:00Negative (05/11/2013 02:00:00)[facility] PDGYPPADE6062-62-57 07:00:00Negative (05/11/2013 02:00:00)[facility] NGSJOGECB2083-82-39 07:00:00Negative (05/11/2013 02:00:00)[facility] HAXMOUVUV0381-82-84 07:00:00Positive *ABN*(05/11/2013 02:00:00)[facility] SQLDRTSVL8887-79-52 07:00:00See Note 12(05/11/2013 02:00:00)[facility] JOSBCCDPI7830-22-99 07:00:00Negative (05/11/2013 02:00:00)[facility] IMCBTDRPB9184-89-89 07:00:00Negative (05/11/2013 02:00:00)[facility] SUQCZRHFC8157-29-69 07:00:00Negative (05/11/2013 02:00:00)[facility] GSVGYSTOP9106-66-00 07:00:00Negative (05/11/2013 02:00:00)[facility] YBYKEHPSO6706-43-38 07:00:001.09[facility] UoparbrDUOOOXXGL9547-03-23 07:00:001.07 [facility] KpsggsaCPWNDCIWF3101-54-38 07:00:002.0[facility]annCHEMISTRY 2013-05-11 07:00:002.6[facility] LqrpfvfGUYPRXZVC2952-01-70 07:00:42327Nypcvpzy WdpdkbyRUPMFGIIN2968-35-09 07:00:008.0[facility] PxngckfJPMLEPZQW9936-36-14 07:00:0017.7[facility] WvoytrxIQYFMDQUV8061-86-96 07:00:007[facility] FGYDVPECZ3226-29-98 07:00:0059[facility] SywykrkNKQPLYIAU0145-15-95 07:00:000.6 [facility] RzkhisjMHBMEHHLU1594-44-87 07:00:12862Tahprzbs HermannCHEMISTRY 2013-05-11 07:00:003.7[facility] RddjcdnQSNNZMWSH8699-64-85 07:00:44297Luezvlzn FyrnhsuMRWVDXDAL9984-98-19 07:00:0021[facility] HfgloxoFKBUZAGMO9636-05-54 07:00:00See Note 13(05/11/2013 02:00:00)[facility] UyvfbiyKHVSSGIVMT9644-57-54 07:00:0017.2[facility] HdqritfSODJHIRSJD3466-60-11 07:00:24818Texruxjq [facility] QGLYHDKZTH8357-20-20 07:00:008.7[facility] TanhyqhUIHRVFFMXS7785-43-50 07:00:00 88.4[facility] XpejpbnPNTZMYCVXJ9426-46-53 07:00:00 Test Item Value Reference Range Interpretation Comments MCH (test code = MCH) 29.4 pg 27.0-31.0 N [facility] NokpxfkCRCQQJMIRT3546-42-42 07:00:0015.3[facility]annHEMATOLOGY 2013-05-11 07:00:0033.2[facility] HybmkehNHRBJPMQZT1848-30-48 07:00:003.75[facility] EkimgdbJUFHMCBDRS9854-16-42 07:00:0011.0[facility] RivxncwPJOMQDEDTP5938-44-63 07:00:0033.1[facility] QbxtfdfBPOIYFMCQU3546-62-55 07:00:004.4[facility] FWBLXAXFDZ3123-09-90 07:00:0077.7[facility] OdokanoSSHJMQOBRJ1018-20-26 07:00:00 0.8[facility] QqfwndeOCUYFTGQTW9083-59-67 07:00:0013.4[facility]annHEMATOLOGY 2013-05-11 07:00:002.7[facility] KgtmumuXOIRKPRCZL7057-34-32 07:00:000.8[facility] GpbksaoFKOXNCBIQE7748-55-04 07:00:001.5[facility] MvmcbptFONJTUCAWL4128-91-75 07:00:0015.6[facility] VzisrhvBYISQPOQRT1532-06-36 07:00:000.1[facility] EICQDGPYDA0349-76-55 07:00:000.3[facility]annBEDSIDE GLUCOSE TESTING 2013-05-11 04:53:0079[facility] UfdoxwcGLELDYUAKH2776-20-29 23:12:34399Kqhkljzv KwblgyoCHAPSMJWRV3613-84-89 23:12:00Positive (05/10/2013 18:12:00)[facility] VzedvudJZAWXWJVDZ8104-65-15 23:12:001.06[facility] LyarxveCHYQGNNBPN3462-11-96 23:12:0070[facility] QcgibrbLIMWRYASPF0860-33-02 23:12:00>100 mm/hr *ABN*(05/10/2013 18:12:00)[facility] VstchlxXZILWBGIXO8474-47-02 23:12:0035 [facility] YsfuzjtTCUFBTLVOJ2580-12-52 23:12:0068[facility] HermannIMMUNOLOGY 2013-05-10 23:12:001[facility] LvarravSLZJUNHCOE8211-74-39 23:12:001[facility] PdmokouUQSZZHFIXB9071-76-08 23:12:005.2[facility] OxfruvrELSIXVYOAP3903-04-82 23:12:0040[facility] WjqnmlgXXZNQBKIED7906-47-15 23:12:37033Ywdrembj [facility] PHQFBQRCVE7406-18-82 23:12:00Negative *NA*(05/10/2013 18:12:00)[facility] MQPRAWGDNM0230-95-94 23:12:00>190.0[facility] HermannBACTERIAL - SEROLOGY 2013-05-10 21:41:00Negative (05/10/2013 16:41:00)[facility] HermannMICRO MISC - YSZMURRM7132-40-54 21:41:00Negative 1(05/10/2013 16:41:00)[facility] BEDSIDE GLUCOSE YKCMMAM6622-37-60 16:57:0096[facility] JwqgumgZWABRARSRZ5448-83-18 14:50:398[facility] KewmjeoEBKPLPAQNB6268-60-85 14:50:39Few /LPF *NA*(05/10/2013 09:50:39)[facility] HftudgwDFEDWJWIWU7144-40-93 14:50:39<1[facility] RJVHOFBHAI7395-89-09 14:50:39Few /LPF *NA*(05/10/2013 09:50:39)[facility] JAZLJGPJTI6633-25-37 14:50:39<1[facility] WebztmaAOHTDLAOWU1904-26-99 14:50:39 Negative (05/10/2013 09:50:39)[facility] BlhmlghUUIFRBWHFG3470-28-41 14:50:39 Negative (05/10/2013 09:50:39)[facility] DnybkgoSLXLOZFMAI5673-07-66 14:50:39 Negative (05/10/2013 09:50:39)[facility] VwxdgqnZKVBIDQVWG4331-50-98 14:50:39 Negative mg/dL *NA*(05/10/2013 09:50:39)[facility] HcatkanZWOWOVBEIU7322-25-05 14:50:39Negative *NA*(05/10/2013 09:50:39)[facility] LychxczKIMNGMOTYH7392-60-53 14:50:391.006[facility] XrnskulTEVOYWZZXS8364-47-05 14:50:39Clear (05/10/2013 09:50:39)[facility] HyjsyhwNFWVDORYEW8745-42-79 14:50:39Light Yellow *NA*(05/10/2013 09:50:39)[facility] AgwcrjhPBUHGKWTLL1043-12-99 14:50:39Negative mg/dL (05/10/2013 09:50:39)[facility] QubttpgMSPJGUAHVA4227-93-61 14:50:397.5 [facility] EprumkbDUXHMBPQP7947-46-44 07:52:0087[facility]annCHEMISTRY 2013-05-10 07:52:11793Mkztqeez BgyhnhoVXULRJIDM0737-83-92 07:52:0014.emorial LtejlmjASAJUHHCS1853-70-87 07:52:007.8[facility] NlecyeuKXNHFJXSK0120-33-56 07:52:05758Xqvbvgrb BjlteboBIMJNHEWF4001-38-28 07:52:003.6[facility] CGANHRIXB8235-51-31 07:52:0024[facility] AkhiqzwHCQXMATRX0372-11-11 07:52:000.8 [facility] GadtuoqLCIBLTTBS4113-57-90 07:52:007[facility] LrhbbepAVDKMIUHL3041-54-87 07:52:0051[facility] LzoqesuYLMLSUOJM7615-78-24 07:52:001.6[facility] QOYGOFQZX3016-51-97 07:52:002.2[facility] PptjgeuIEWRAZFPLG8707-55-19 07:52:00 Test Item Value Reference Range Interpretation Comments MCH (test code = MCH) 29.1 pg 27.0-31.0 N [facility] XukrhktQFIZULYDTH7659-53-48 07:52:0033.8[facility]annHEMATOLOGY 2013-05-10 07:52:0089.2[facility] VavvsvpOJYOWLXMGF7629-80-98 07:52:0011.0[facility] DqzyprrTLXRRQIQDX8664-92-50 07:52:008.5[facility] AdgnpnxMIDTVYXQPS4184-70-27 07:52:54056Setkzusy NzmxikvFYDFMABWFJ6006-32-85 07:52:0015.1[facility] GVQGTDJWNO3575-34-89 07:52:0032.6[facility] ByepefePKXEAXXTQB8797-83-72 07:52:00 3.79[facility] PxfzrxdKHMGVKWIIP4726-38-72 07:52:0022.1[facility]annHEMATOLOGY 2013-05-10 07:52:000.1[facility] VirwwzcRAFXSVAIFB9834-62-81 07:52:000.6[facility] LxoktubVKGOTWFCST6740-79-98 07:52:000.2[facility] QhkzfgzXEUNGZAHBY8562-87-66 07:52:0083.0[facility] YhogbfsEIQUYZAABZ9491-93-21 07:52:002.9[facility] WAYUUQOFPD9388-38-31 07:52:0018.3[facility] BhyrwzsGJJLRUYLYT2467-66-07 07:52:00 0.4[facility] FfyiokoTZWXWNJZUO6731-12-91 07:52:001.0[facility]annHEMATOLOGY 2013-05-10 07:52:0012.9[facility] XryixvfFRKSGIRABT8889-36-67 07:52:002.7[facility] IlciqnzAAWEBJLBXU1030-41-92 19:56:0055[facility] RbvbqjzPPOYCETBHA7832-03-09 19:56:76174Vfdwrugo NbojvjeVRXJQHRWRA3426-03-66 19:56:57171Lvkdulgr [facility] VTFXJQPPEJ9806-18-08 19:56:00Negative (05/09/2013 14:56:00)[facility] QGPPRJHUWN7971-74-91 19:56:00Negative (05/09/2013 14:56:00)[facility] [place] UOKPLSNLTZ9108-79-24 19:56:00Negative (05/09/2013 14:56:00)[facility] MRQNNAFMUR2193-87-12 19:56:00>190.0 mg/L 15(05/09/2013 14:56:00)[facility] MfcpjyeLPKUSLTKYW7227-60-13 19:56:00Negative (05/09/2013 14:56:00)[facility] OovbvqoDXWHIJCEKM9399-33-16 19:56:0034[facility] BbnifyhOUIJAWIIH8741-68-74 16:10:242.3[facility] BbeimbjYQOEJRSVY3309-13-63 16:10:241.4[facility] XIZECYGZE3527-43-02 16:10:191.8[facility] YibldrfPWKULPKUA5714-72-73 10:34:0071 [facility] AbowshhNPYXMRRRS5427-47-82 10:34:0036[facility]annCHEMISTRY 2013-05-09 10:34:67178Ikncoden GzukvbcPXNIJHAHT6476-88-54 10:34:77594Hcpfmrer ZiiwvbvLINYEABDG1302-56-80 10:34:003.67[facility] RsehepiQPYEHKWBI6236-71-56 10:34:004.9[facility] NbdxzvsHUBVLPYVC9353-54-43 00:11:00Negative *NA*(05/08/2013 19:11:00)[facility] UvewdolHVHLADTPO6103-51-96 00:11:00See Note 11(05/08/2013 19:11:00)[facility] UvsbbbiSWLZPNTRY6120-48-42 00:11:00Positive *ABN*(05/08/2013 19:11:00)[facility] RfbnogiKFSKOZJNZ0537-25-89 00:11:00Negative *NA*(05/08/2013 19:11:00)[facility] ZskqrxsRAHXAIBRA3041-76-56 00:11:00Negative *NA*(05/08/2013 19:11:00)[facility] QkufozxKNDYYRVXB2436-11-05 00:11:00Negative *NA*(05/08/2013 19:11:00)[facility] UoluzjwBLZMDXUKH0438-14-49 00:11:00Negative *NA*(05/08/2013 19:11:00)[facility] NfzyqdbZWEYIJNKS7919-80-17 00:11:00Negative *NA*(05/08/2013 19:11:00)[facility] EpikoqiCUYBFKDTW5480-40-34 00:11:0054[facility]annCHEMISTRY 2013-05-09 00:11:005.8[facility] AswatodJTPFULDUR3616-59-83 00:11:000.2[facility] XxdvqudBADMYLRGV5648-65-22 00:11:002.8[facility] SkhnmziTKZBROCHT3760-94-57 00:11:0095[facility] ZftkhtaHMKZNBXIJ5148-49-47 00:11:0029[facility] XMQWMMXEX9979-08-70 00:11:000.9[facility] YxzpffaKITWXMAWR7653-78-94 00:11:0015 [facility] JibvmfcCHYNTAZVJ8634-77-97 00:11:003.0[facility]annURINALYSIS 2013-05-09 00:11:00Slight *ABN*(05/08/2013 19:11:00)[facility]annURINALYSIS 2013-05-09 00:11:001.013[facility] QncyescYQUAGBIMVU9831-11-73 00:11:00Small *ABN*(05/08/2013 19:11:00)[facility] HpzltnoRHFHYPYTOR8509-61-95 00:11:00Negative (05/08/2013 19:11:00)[facility] HprsprzQELNMCWAEV5957-48-25 00:11:00Negative (05/08/2013 19:11:00)[facility] RdqbyjyDEPHFCOLAR9826-17-81 00:11:005.0[facility] AanoqkmJHJLAGHIMJ9183-83-42 00:11:0030 mg/dL *ABN*(05/08/2013 19:11:00)[facility] NwnfzyuHUUSFLYAIA8506-89-18 00:11:00Negative mg/dL *NA*(05/08/2013 19:11:00) [facility] XulwmtuUOWVQFNEXP4783-52-38 00:11:00Yellow *NA*(05/08/2013 19:11:00) [facility] GnaildaAYDMIBRDYK6508-46-56 00:11:00Few /LPF *NA*(05/08/2013 19:11:00) [facility] WbmouqgJQXJQXSKKT7642-89-09 00:11:001[facility]annURINALYSIS 2013-05-09 00:11:00Negative mg/dL *NA*(05/08/2013 19:11:00)[facility] [place] HHYLACYWZK5904-33-43 00:11:00Negative *NA*(05/08/2013 19:11:00)[facility] WQZPADUGRG6981-96-93 00:11:00Few /LPF *NA*(05/08/2013 19:11:00)[facility] DAMVHKZJEK7532-64-07 00:11:00Occasional /HPF *NA*(05/08/2013 19:11:00)[facility] HermannBEDSIDE GLUCOSE UIFBTPR7930-11-82 12:28:0087[facility]annCHEMISTRY 2012-07-21 08:53:92714Rwzekomz WbfhhjyNMMALREMS7732-36-94 08:53:0024[facility] HefyruxKTUKYTWUH2347-46-05 08:53:68275Sehiicre IciywvlSUUZXSJBM0870-17-17 08:53:83630Qdnetril KmcprneROBPJWESL5944-60-49 08:53:008.08[facility] YPMDZPJMS0755-43-32 08:53:003.2[facility] EeyobmqISASHEHQI3903-87-72 08:53:001.9 [facility] OdovnnvXHQLZOZDG0401-10-52 08:53:0014.1[facility] HermannCHEMISTRY 2012-07-21 08:53:009[facility] SartuhrQEFRWMAAE4762-88-07 08:53:0077[facility] LeyksypNXQBBDWCC1533-16-41 08:53:96514Cwksmpgi IodtaeqHNVZJRCLM1231-68-06 08:53:65265Onbgckms EfgoocrBEZSQQHBS1804-40-26 08:53:39596Yihwskma [facility] BAVEPYQHM2125-34-70 08:53:004.1[facility] JsspicbUCCVIQAHS4967-77-54 08:53:000.7 [facility] ZqxtlwvZWPMNPEDY2131-66-97 08:53:0027[facility]annCHEMISTRY 2012-07-21 08:53:008.0[facility] FvammuqINAWQSWPC2703-08-23 08:53:005.8[facility] ItwwilhUVXBSPIBJG9990-85-80 08:53:006.8[facility] UbmwopbGSCWWZEAPE5154-21-15 08:53:40779Evjdvjca QbgzsrmVYJSYKAKUT6054-56-97 08:53:0088.7[facility] BZMVJULOSI3610-61-42 08:53:00 Test Item Value Reference Range Interpretation Comments MCH (test code = MCH) 29.4 pg 27.0-31.0 N [facility] OjdlawfSGDODPUHJK5386-73-50 08:53:0033.1[facility] HermannHEMATOLOGY 2012-07-21 08:53:0015.0[facility] PfzmhhzJKRULMMPRT7422-92-37 08:53:0038.4[facility] JwetgxtRREIRCSIDJ4816-92-03 08:53:004.34[facility] VbampzjHJMAVRGJCY5444-81-75 08:53:0012.7[facility] BulqwsrXJWJZRXRHW7760-45-61 08:53:0011.7[facility] MTEQKLDQCI4206-54-41 08:53:000.5[facility] IclrggzZMECDLDLCA1572-06-41 08:53:005.9 [facility] UldllygTPIVBXUQYF2060-44-85 08:53:006.0[facility]annHEMATOLOGY 2012-07-21 08:53:0041.5[facility] KjkuftgRDHZZXOROY7659-84-24 08:53:001.9[facility] AoytjbzLGWISZDHAL9890-26-15 08:53:0050.1[facility] DrbhnsaRCQPVMFNPW2412-38-52 08:53:000.7[facility] ErtyikeAUVAJGPJDS1188-46-48 08:53:004.8[facility] UHSJCWNIVN3911-62-97 08:53:000.2[facility] GpbqmunQDGWKWFEFG6340-34-90 08:53:000.1 [facility] BVNRRFX5778-05-01 02:50:26718Gheppesi [facility] SCLWPZWMJV4247-38-62 01:10:00Yellow *NA*(07/20/2012 19:10:00)[facility] KPMWWMQWTL0149-94-77 01:10:0020 mg/dL *ABN*(07/20/2012 19:10:00)[facility] XPOYDNQYRO5913-55-36 01:10:006.5[facility] XlpxwvzOFWXADKYDB7939-90-29 01:10:00 Negative mg/dL *NA*(07/20/2012 19:10:00)[facility] CaxeyrtWVIEAMVYAZ6707-69-76 01:10:001.020[facility] DqsigmjNCXKYGNVYM3074-81-60 01:10:00Slight *ABN*(07/20/2012 19:10:00)[facility] YwjagmjLXDRFZNRIT2736-58-84 01:10:00Negative (07/20/2012 19:10:00)[facility] YhrcchjNACYBIKQEH4210-05-29 01:10:00Trace *ABN*(07/20/2012 19:10:00)[facility] PaffimrEIDFHJDJVN4814-02-65 01:10:00Many /LPF *ABN*(07/20/2012 19:10:00)[facility] FalwhzsOXWOXEBZLA2837-34-21 01:10:00Small *ABN*(07/20/2012 19:10:00)[facility] LvitnguXGNCDADCRC9820-03-01 01:10:00Negative *NA*(07/20/2012 19:10:00)[facility] FviqrkvLDSEPPSASY8770-97-29 01:10:00Occasional /HPF *NA*(07/20/2012 19:10:00)[facility] DwbivmsCYPJRIGGNZ8707-45-03 01:10:00Few /LPF *NA*(07/20/2012 19:10:00)[facility] SqvinxeWODUDYDWNP9727-57-77 01:10:00Few /HPF *NA*(07/20/2012 19:10:00)[facility] JoywalnLAZGDBHWZZ2634-39-04 01:10:001 [facility] CajznmgREPKBNQFCE8691-32-21 01:10:006[facility]annURINALYSIS 2012-07-21 01:10:001[facility] HermannBEDSIDE GLUCOSE UQILEWM4189-21-30 12:05:0086 [facility] StbtkyyXTQANBFLR0648-80-63 08:50:0014.7[facility] HermannCHEMISTRY 2012-07-20 08:50:0088[facility] HklfcwlMEIESHICF9445-08-59 08:50:0077[facility] KrvxysbUINZWSIUK2564-18-90 08:50:0013[facility] KkemtorFKYACAHRO5082-48-94 08:50:000.8[facility] DyryazeZILWGIIDE4502-90-35 08:50:38021Oyqawmbc [facility] ZSLQIPPBB3872-91-85 08:50:003.7[facility] EfbqxftSFULICXRA1790-84-49 08:50:0097 [facility] KsifjywVGKOOWCIC8714-59-68 08:50:0029[facility] HermannCHEMISTRY 2012-07-20 08:50:008.3[facility] TrfngxtIXSWINRDRT3103-41-52 08:50:000.7[facility] YdbxoglOJTZIAZAUE1778-34-10 08:50:004.3[facility] WwfbrwjCSXTXOLYTQ3781-58-17 08:50:006.9[facility] JibegxlBNVLAAXWLT7229-81-30 08:50:000.8[facility] LSSDUHNOMQ5713-38-25 08:50:001.2[facility] PkgtkgmILSLOOWYRH0005-39-96 08:50:000.1 [facility] UrsuawxLTFRJOSEEK0573-43-68 08:50:000.1[facility]annHEMATOLOGY 2012-07-20 08:50:005.6[facility] ZnrysauTEZCLXDRMW3465-90-73 08:50:0035.7[facility] IyjeghoHLNCTPTUNP9968-32-15 08:50:0056.7[facility] TjlfllkBPUTPKKYDA3653-97-08 08:50:0088.3[facility] FfaercxRHVPQLCXRV2875-51-83 08:50:0041.1[facility] DYHXBEZWVL7905-05-01 08:50:0013.7[facility] JpezzrnBGMLNRBQVW0652-95-27 08:50:00 4.66[facility] NgidlfnWFIEWNZTEP0144-07-62 08:50:0012.2[facility] HermannHEMATOLOGY 2012-07-20 08:50:006.8[facility] CprurktZYAJFIODVB5344-41-42 08:50:59833Qjwufhyn VyrnwdzAHKRCCNKUQ4501-11-03 08:50:0015.6[facility] KdozptgWXECTFWPKN7309-27-16 08:50:0033.3[facility] WbvcchrCBDGFSGNSJ6355-97-25 08:50:00 Test Item Value Reference Range Interpretation Comments MCH (test code = MCH) 29.4 pg 27.0-31.0 N [facility] JQBEKRN2532-04-05 13:30:00Negative (07/19/2012 07:30:00)[facility] EliwerhCRGDHIYOI4091-28-23 13:30:0062[facility]annCHEMISTRY 2012-07-19 13:30:0067[facility] ZcennykWRTGOMEEP6981-67-74 13:30:0030[facility] MtncfcxYHCIUXLEF0738-39-16 13:30:008.8[facility] YtnsteoYVYKCQAOD5309-80-03 13:30:0012[facility] XcmesmmPYBDGUMXB1958-68-28 13:30:001.0[facility] WFMZYNQWY3155-96-94 13:30:58935Syfwdvxg GtqkxhwFGOVGVINI7686-03-30 13:30:004.1 [facility] FflxlifEQPVBKBJI5608-50-91 13:30:0099[facility]annCHEMISTRY 2012-07-19 13:30:15589Bssorgwc KfwavcxCNYYCFDYO5118-89-49 13:30:0013.1[facility] XszflscSYJTWKYWZ1029-86-57 13:30:00<0.02[facility] JqvyilhGAGQGZNCAC2737-87-93 13:30:001+ *ABN*(07/19/2012 07:30:00)[facility] CcozyngWXJWXOHQJD2832-25-32 13:30:000.0[facility] AiamrjyUHCBTWLBQA8146-48-63 13:30:00Slight *ABN*(07/19/2012 07:30:00)[facility] CizngcsKAWAPBOUVO1068-88-26 13:30:00Slight (07/19/2012 07:30:00)[facility] YxzcukyZPWRIZBTEU7621-51-20 13:30:000.0[facility] MEAXVTVZTS4512-69-52 13:30:004.0[facility] QbuyrmrULKOAVVHOQ0803-66-13 13:30:00 30.0[facility] AhhuyriYQMURJOVRK0915-85-67 13:30:001.0[facility]annHEMATOLOGY 2012-07-19 13:30:005.4[facility] WoqzjhsUGOMPOZRSH5168-75-07 13:30:0011.8[facility] IadldtwQPBFIUWRCW2903-05-35 13:30:000.2[facility] FyoqimjNDZHDLRDOX5856-16-64 13:30:000.7[facility] ItsvpmqVCPTHNACNE6250-44-76 13:30:0065.0[facility] [place] JELRBVMTAO6661-96-93 13:30:000.97[facility] ApwmemsLKOLPJJNYU3211-84-95 13:30:00 Test Item Value Reference Range Interpretation Comments PT (test code = PT) 13.1 s 12.0-14.7 N [facility] MfgxaodJEAWULVNZG6550-27-85 13:30:004.1[facility]annHEMATOLOGY 2012-07-19 13:30:00 Test Item Value Reference Range Interpretation Comments ACT (TEG) (test code = ACT (TEG)) 113 s 86-118 N [facility] MsweqvgPUEVCCBZED9173-40-17 13:30:00 Test Item Value Reference Range Interpretation Comments Split Point (test code = Split Point) 0.6 min [facility] MmxnatkLQBXXOFRDP4802-17-99 13:30:00 Test Item Value Reference Range Interpretation Comments Angle (test code = Angle) 82 degrees 64-80 H [facility] HtuasqzLIASIHIHVO1719-65-71 13:30:00 Test Item Value Reference Range Interpretation Comments Max Amp (test code = Max Amp) 81 mm 52-71 H [facility] CampusFifsmatVWBCSTSEZH2961-86-41 13:30:00 Test Item Value Reference Range Interpretation Comments K-time (test code = K-time) 0.8 min 0.6-2.3 N [facility] NwwdffaBVTUAPPNIS1096-33-74 13:30:0020.9[facility]annHEMATOLOGY 2012-07-19 13:30:00 Test Item Value Reference Range Interpretation Comments R-time (test code = R-time) 0.7 min 0.4-0.7 N [facility] CampusGzeldheVHPOXQFUKV6312-58-44 13:30:00 Test Item Value Reference Range Interpretation Comments PTT (test code = PTT) 32.1 s 22.9-35.8 N [facility] NgrqdwgOTIOCCMDIA1418-24-24 13:30:0015.0[facility]annHEMATOLOGY 2012-07-19 13:30:005.06[facility] YsqkdijHIPTNGAONQ8220-62-32 13:30:0014.8[facility] FmprkenLXYLLMRKTA5455-27-96 13:30:0033.3[facility] JyfysitYRHWRVEIOZ8982-66-56 13:30:0018.1[facility] JkrpmsbLTNZOZMTJL9677-46-48 13:30:0044.9[facility] KVOWKUUESU9462-59-02 13:30:007.1[facility] MriubehLVKPMWTNJG2892-70-09 13:30:00 Test Item Value Reference Range Interpretation Comments MCH (test code = MCH) 29.5 pg 27.0-31.0 N [facility] KojxllaTPWDPEHRFT8350-78-83 13:30:0088.8[facility] HermannHEMATOLOGY 2012-07-19 13:30:69098Rqvefhcf [place]
--- OUTSIDE RECORDS SUMMARY | 2020-05-26 19:51 | XMS REPORT ---
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 Problem History [...] End Status Dosage System Date Date Symbicort [facility] 23968146231 160-4.5 MCG/ACT Active 2 puffs Inhalation Twice a day Potassium [facility] 73881660577 20 MEQ Orally Active 1 ca psule Chloride Twice a day - [facility] 57062664387 81 MG Orally Active 1 tabl et Once a day Lipitor [facility] 41571982178 80 MG Orally Active 1 table t Once a day Promethazine [facility] 69511088485 25 MG Orally Active TA KE ONE HCl every 12 hrs TABLET BY PRN MOUTH EVERY 12 HOURS NEEDED FOR NAUSEA AND VOMITING Zoloft [facility] 10599425756 100 MG Orally Active 1 tabl et Once a day Metoprolol [facility] 48535625946 50 MG Orally Active 1 ta blet Tartrate Twice a day with food Clopidogrel [facility] 16627580370 75 MG Orally Active 1 t ablet Bisulfate Once a day Omeprazole [facility] 20789773025 40 MG Orally Mar 28, Active 1 ca psule Once a day 2020 30 minutes before morning meal Ambien [facility] 45086524475 10 MG Orally Active 1 table t Once a day at bedtime as needed Promethazine [facility] 58450049782 25 MG Active TAKE ON E HCl TABLET BY MOUTH EVERY 12 HOURS NEEDED FOR NAUSEA AND VOMITING Abilify [facility] 48917159888 10 MG Orally Inactive 1 tabl et Once a day Wellbutrin ND 0 100 MG Orally Active 1 table t Twice a day Lasix [facility] 05880634927 40 MG Orally Active 0.5 tab let Once a day Eliquis [facility] 79835693336 5 MG Orally Active as directed Results No Known Results Summary Purpose eClinicalWorks Submission
--- OUTSIDE RECORDS SUMMARY | 2020-05-26 19:52 | XMS REPORT | Summary of Care ---
:1965 Author Organization [facility] - Health Address [address] [place] [address] Care Team Providers Name Role Phone James Burton Primary Care Provider Encounter Details Date Type Department Care Team Description 05/24/2020 Orders Only [facility] Doctor Unassigned, No [address] [facility] [place] [address] [address] [place] [address] Allergies Active Allergy Reactions Severity Noted Date Comments Prochlorperazine Edisylate Nausea and/or 08/21/2005 Vomiting Divalproex Sodium Anxiety 08/21/2005 Gabapentin Unknown - See 01/02/2008 Blurred vision comments Nsaids (Non-Steroidal Nausea and/or 06/15/2015 Anti-Inflammatory Drug) Vomiting Butorphanol Tartrate Rash 08/21/2005 Ketorolac Tromethamine Rash 08/21/2005 documented as of this encounter (statuses as of 05/24/2020) Medications Medication Sig Dispensed Refills Start Date End Date Status atorvastatin 80 mg Take 1 tablet by 30 tablet 3 09/03/2019 Active tabletIndications: mouth at bedtime. S/P CABG (coronary artery bypass graft), Coronary artery disease involving [place] coronary artery of [place] heart with angina pectoris LORazepam 2 mg [...] PRN based disease involving on leg swelling [place] coronary and body weight) artery of [place] for up to 30 heart with angina doses. pectoris, NSTEMI (non-ST elevated myocardial infarction) KCL 20 mEq Take 1 tablet by 30 tablet 2 11/07/2019 A ctive tabletIndications: mouth as needed Coronary artery (Recommend to take disease involving KCL if taking [place] coronary lasix.) for up to artery of [place] 30 doses. heart with angina pectoris, NSTEMI (non-ST elevated myocardial infarction) apixaban 5 mg Take 1 tablet by 60 tablet 1 11/12/2019 Active tabletIndications: mouth 2 (two) deep vein thrombosis times daily. prevention Indications: deep vein thrombosis prevention METOPROLOL TARTRATE TAKE ONE TABLET BY 60 tablet 0 04/28/2020 Active 50 mg MOUTH TWICE A DAY tabletIndications: NSTEMI (non-ST elevated myocardial infarction), Bacteremia due to Enterobacter species documented as of this encounter (statuses as of 05/24/2020) Active Problems Problem Noted Date Weakness 12/25/2019 Pericardial effusion 10/25/2019 Arm DVT (deep venous thromboembolism), acute, left 04/2020 Chest pain 10/24/2019 NSTEMI (non-ST elevated myocardial infarction) 020 Left sided numbness 09/03/2019 S/P CABG (coronary artery bypass graft) 06/30/2019 Leukocytosis 06/16/2019 Tachycardia 06/15/2019 Coronary artery disease involving o[place] coronary herson ry of o[place] heart 06/08/2019 with angina pectoris Overview: Added automatically from request for ilan de la cruz [id number] Sepsis 05/03/2019 Obesity (BMI 30-39.9) 05/03/2019 Other [...] as of this encounter (statuses as of 05/24/2020) Immunizations Name Administration Dates Next Due Influenza [...] of this encounter Implants Implanted Type Area Online Services Manager Device Shelf Expiration Model / Identifier Date Serial / Lot Screw SCREW Right: Ankle Screw SCREW Left: Foot documented as of this encounter Procedures Procedure Name Priority Date/Time Associated Diagnosis Comme nts MEDICATION CORRESPONDENCE Routine 05/24/2020 12:01 AM CDT documented in this encounter Results Not on filedocumented in this encounter Insurance Payer Benefit Plan / Subscriber ID Effective Phone Address [facility] Dates KARMA PARADA [id number] [address] [place] [id number] MANAGED MEDICAID [place] KARMA PARADA 2015-Prese [address] [place] Medic [place] [id number] MA[place] MEDICAID [place] documented as of this encounter Advance Directives Name Relationship Healthcare Agent Communication Relationship Swapnil Whyte Spouse Health Care Agent
[2020-05-26 23:37] LABS: Absolute Lymphocytes (CBC) 3.2 K/uL (0.7-4.9); Basophils % 0.8 % (0-1.3); Hematocrit 37.8 % (36.0-45.0); Lymphocytes % 25.2 % (15.3-44.8); MPV 8.1 fL (7.6-11.3); RBC Red Blood Cell Count 4.78 M/uL (3.86-4.86)
[2020-05-27 00:01] LABS: ALT/SGPT 115 U/L (12-78); Albumin 3.7 g/dL (3.4-5.0); Alkaline Phosphatase 278 U/L (45-117); BUN Blood Urea Nitrogen 12 mg/dL (7-18); Bicarbonate 29 mmol/L (21-32); Bilirubin Direct < 0.1 mg/dL (0-0.2); Bilirubin Total 0.3 mg/dL (0.2-1.0); Glucose Level 102 mg/dL (74-106); NT PRO-BNP 191 pg/mL (<125); Protein, Total 7.9 g/dL (6.4-8.2); Sodium Level 141 mmol/L (136-145); Troponin (Emerg Dept Use Only) < 0.02 ng/mL (0.0-0.045)
[2020-05-27 00:03] LABS: AST/SGOT 34 U/L (15-37); Magnesium 1.9 mg/dL (1.8-2.4); Potassium 3.3 mmol/L (3.5-5.1)
[2020-05-27 00:10] LABS: Protime INR 1.25
[2020-05-27 00:34] LABS: Urine Blood 2+ (NEG); Urine Glucose NEGATIVE (NEG); Urine Protein 1+ (NEG); Urine Specific Gravity >1.030 (1.005-1.030)
[2020-05-27 00:38] LABS: Barbiturates NEGATIVE (NEGATIVE); Benzodiazepines POSITIVE (NEGATIVE); Cocaine NEGATIVE (NEGATIVE); METHAMPHETAM NEGATIVE (NEGATIVE); Methadone NEGATIVE (NEGATIVE); Opiates POSITIVE (NEGATIVE); Phencyclidine NEGATIVE (NEGATIVE); THC Cannibis NEGATIVE (NEGATIVE)
[2020-05-27] MEDS ORDERED: CEPHALEXIN 250 MG CAP ONE (01:07)
[2020-05-27] MEDS ORDERED: ACETAMINOPHEN 500 MG TAB ONE (01:08)
[2020-05-27] MEDS ORDERED: POTASSIUM CL SA 10 MEQ TAB PO ONE (01:08)
--- NOTE | 2020-05-27 01:08 | EDPHYS ---
Physician Documentation [facility] Name: Kathy Whyte Age: 54 yrs Sex: Female : 1965 Arrival Date: 05/26/2020 Time: 19:32 Bed 2 Private MD: ED Physician Harjinder Garvin HPI: 05/26 21:00 This 54 yrs old Female presents to ER via Ambulatory with complaints of mh7 Dizziness, INSOMNIA. 21:00 The patient presents with dizziness, lightheadedness, feeling off balance. Onset: The mh7 symptoms/episode began/occurred 2 week(s) ago. Context: occurred at home, occurred while the patient was standing, walking, just prior to the episode the patient experienced no apparent symptoms. Modifying factors: The symptoms are alleviated by nothing, the symptoms are aggravated by standing up. Associated signs and symptoms: Pertinent negatives: abdominal pain, agitation, ataxia, blurred vision, chest pain, combativeness, confusion, diaphoresis, focal weakness, head injury, headache, nausea, near-syncope, numbness, palpitations, seizure, shortness of breath, syncope, tingling, vomiting. Severity of symptoms: At their worst the symptoms were moderate 5 day(s) ago, in the emergency department the symptoms have improved moderately. Patient states that she was started on Seroquel one month ago then started having dizziness two weeks ago. She denies any headache, chest pain, abdominal pain, SOB, nausea, vomiting, fever, numbness/tingling, or weakness.. MANAGER MEDICAL DEVICE: 05/27 00:01 LMP N/A - Hysterectomy lp1 Historical: - Allergies: 05/26 19:58 NSAIDS; ll1 19:58 Stadol; ll1 19:58 Toradol; ll1 19:58 Neurontin; ll1 19:58 Morphine; ll1 19:58 Compazine; ll1 - Home Meds: 20:23 bupropion HCl 200 mg Oral TbER 1 tab 2 times per day [Active]; carvedilol 12.5 mg Oral lp1 tab 1 tab 2 times per day [Active]; Eliquis Oral [Active]; lisinopril 20 mg Oral tab [Active]; methocarbamol 750 mg Oral tab 1 tab every 4 hours [Active]; Risperdal 1 mg Oral tab 1 tab 2 times per day [Active]; sertraline 100 mg Oral tab 1 tab once daily [Active]; topiramate 25 mg Oral CSpX 1 cap once daily [Active]; triazolam 0.25 mg Oral tab 2 tabs once daily [Active]; - PMHx: 19:58 Seizures; Hypertension; High Cholesterol; Depression; Anxiety; CVA; ll1 - PSHx: 19:58 Cholecystectomy; Heart stents; CABG; Appendectomy; Hysterectomy; ll1 - Immunization history:: Flu vaccine is not up to date. - Social history:: Smoking status: Patient/guardian denies using tobacco, the patient reports quitting approximately 5 years ago. ROS: 21:00 Constitutional: Negative for fever, chills, and weight loss, Eyes: Negative for injury, mh7 pain, redness, and discharge, ENT: Negative for injury, pain, and discharge, Neck: Negative for injury, pain, and swelling, Cardiovascular: Negative for chest pain, palpitations, and edema, Respiratory: Negative for shortness of breath, cough, wheezing, and pleuritic chest pain, Abdomen/GI: Negative for abdominal pain, nausea, vomiting, diarrhea, and constipation, Back: Negative for injury and pain, : Negative for injury, bleeding, discharge, and swelling, MS/Extremity: Negative for injury and deformity, Skin: Negative for injury, rash, and discoloration, Neuro: Negative for headache, weakness, numbness, tingling, and seizure, Psych: Negative for depression, anxiety, suicide ideation, homicidal ideation, and hallucinations, Allergy/Immunology: Negative for hives, rash, and allergies, Endocrine: Negative for neck swelling, polydipsia, polyuria, polyphagia, and marked weight changes, Hematologic/Lymphatic: Negative for swollen nodes, abnormal bleeding, and unusual bruising. Exam: 21:00 Constitutional: This is a well developed, well nourished patient who is awake, alert, mh7 and in no acute distress. 21:00 Head/Face: Normocephalic, atraumatic. Eyes: Pupils equal round and reactive to light, extra-ocular motions intact. Lids and lashes normal. Conjunctiva and sclera are non-icteric and not injected. Cornea within normal limits. Periorbital areas with no swelling, redness, or edema. Neck: Trachea midline, no thyromegaly or masses palpated, and no cervical lymphadenopathy. Supple, full range of motion without nuchal rigidity, or vertebral point tenderness. No Meningismus. Chest/axilla: Normal chest wall appearance and motion. Nontender with no deformity. No lesions are appreciated. Cardiovascular: Regular rate and rhythm with a normal S1 and S2. No gallops, murmurs, or rubs. Normal PMI, no JVD. No pulse deficits. Respiratory: Lungs have equal breath sounds bilaterally, clear to auscultation and percussion. No rales, rhonchi or wheezes noted. No increased work of breathing, no retractions or nasal flaring. Abdomen/GI: Soft, non-tender, with normal bowel sounds. No distension or tympany. No guarding or rebound. No evidence of tenderness throughout. Back: No spinal tenderness. No costovertebral tenderness. Full range of motion. Skin: Warm, dry with normal turgor. Normal color with no rashes, no lesions, and no evidence of cellulitis. MS/ Extremity: Pulses equal, no cyanosis. Neurovascular intact. Full, normal range of motion. Psych: Awake, alert, with orientation to person, place and time. Behavior, mood, and affect are within normal limits. 21:00 Head/face: 21:00 Neuro: Orientation: is normal, Mentation: is normal, Memory: is normal, Cranial nerves: facial droop noted on left, mild, chronic from prior CVA. Cerebellar function: is grossly normal, Motor: is normal, Sensation: is normal, Gait: is steady, at a normal pace, Deep tendon reflexes are normal, Babinski testing is normal, seizure activity, is not displayed by the patient, Abnormal movements: there are no abnormal movements. Vital Signs: 19:56 BP 116 / 92; Pulse 78; Resp 18; Temp 97.9; Pulse Ox 99% ; Weight 68.49 kg; Height 5 ft. ll1 3 in. (160.02 cm); Pain 7/10; 20:25 BP 127 / 58; Pulse 69; Resp 16; Pulse Ox 100% on R/A; lp1 22:30 BP 135 / 66 Supine; Pulse 65; lp1 22:35 BP 120 / 82 Sitting; Pulse 73; lp1 22:39 BP 99 / 80 Standing; Pulse 88; lp1 10/10 00:00 BP 144 / 82; Pulse 75; Resp 20; Pulse Ox 99% on R/A; lp1 01:21 BP 139 / 59; Pulse 73; Resp 19; Pulse Ox 99% on R/A; lp1 05/26 19:56 Body Mass Index 26.75 (68.49 kg, 160.02 cm) ll1 05/26 22:39 Patient states slight dizziness, standing independently lp1 MDM: 20:53 Patient medically screened. 7 05/27 01:05 Differential diagnosis: cardiac arrhythmia, CVA, hypovolemia, idiopathic dizziness, mh7 near-syncope, syncope, vertigo. Data reviewed: vital signs, nurses notes, old medical records, lab test result(s), cardiac enzymes, CBC, electrolytes, urinalysis, EKG, radiologic studies, CT scan, plain films. Data interpreted: Pulse oximetry: on room air is 99 %. Interpretation: normal. Counseling: I had a detailed discussion with the patient and/or guardian regarding: the historical points, exam findings, and any diagnostic results supporting the discharge/admit diagnosis, the presence of at least one elevated blood pressure reading (>120/80) during this emergency department visit, lab results, radiology results, the need for outpatient follow up, to return to the emergency department if symptoms worsen or persist or if there are any questions or concerns that arise at home. Response to treatment: the patient's symptoms have resolved after treatment, the patient's blood pressure is in an acceptable range, mental status has returned to baseline, the patient no longer shows bradycardia, the patient is not short of breath, the patient is not tachycardic, the patient's pain is gone, the patient's temperature has normalized. 05/26 20:55 Order name: Basic Metabolic Panel; Complete Time: 00:42 mh7 05/26 20:55 Order name: CBC with Diff; Complete Time: 23:57 mh7 05/26 20:55 Order name: LFT's; Complete Time: 00:42 mh7 05/26 20:55 Order name: Magnesium; Complete Time: 00:42 mh7 05/26 20:55 Order name: NT PRO-BNP; Complete Time: 00:42 mh7 05/26 20:55 Order name: PT-INR; Complete Time: 00:42 mh7 05/26 20:55 Order name: Troponin (emerg Dept Use Only); Complete Time: 00:42 mh7 05/26 20:55 Order name: XRAY Chest (1 view) [facility] 05/26 20:55 Order name: UDS; Complete Time: 00:42 [facility] 05/26 20:55 Order name: Acetaminophen; Complete Time: 00:42 [facility] 05/26 20:55 Order name: Salicylate; Complete Time: 00:42 [facility] 05/26 20:55 Order name: ETOH Level; Complete Time: 22:50 [facility] 05/26 20:55 Order name: CT Head Brain wo Cont [facility] 05/27 00:28 Order name: Urine Dipstick--Ancillary (enter results); Complete Time: 00:42 [facility] 05/26 20:55 Order name: EKG; Complete Time: 20:56 [facility] 05/26 20:55 Order name: Cardiac monitoring; Complete Time: 22:41 [facility] 05/26 20:55 Order name: EKG - Nurse/Tech; Complete Time: 22:41 [facility] 05/26 20:55 Order name: IV Saline Lock; Complete Time: 22:41 [facility] 05/26 20:55 Order name: Labs collected and sent; Complete Time: 22:41 [facility] 05/26 20:55 Order name: O2 Per Protocol; Complete Time: 22:41 [facility] 05/26 20:55 Order name: O2 Sat Monitoring; Complete Time: 22:41 [facility] 05/26 20:55 Order name: Urine Dipstick-Ancillary (obtain specimen); Complete Time: 00:22 [facility] 05/26 20:55 Order name: Orthostatics; Complete Time: 22:41 7 Administered Medications: 01:01 Drug: Potassium Chloride 40 mEq Route: PO; lp1 01:22 Follow up: Response: No adverse reaction lp1 01:02 Drug: KeFLEX 500 mg Route: PO; lp1 :22 Follow up: Response: No adverse reaction lp1 01:02 Drug: Tylenol 1000 mg Route: PO; lp1 :22 Follow up: Response: No adverse reaction lp1 Disposition: 05/27/20 01:07 Discharged to Home. Impression: Dizziness and giddiness, Urinary tract infection, site not specified. - Condition is Stable. - Discharge Instructions: Dizziness, Urinary Tract Infection, Adult, [id number]. - Prescriptions for Keflex 500 mg Oral Capsule - take 1 capsule by ORAL route every 12 hours for 7 days; 14 capsule. - Medication Reconciliation Form, Thank You Letter, Antibiotic Education, Prescription Opioid Use form. - Follow up: Private Physician; When: 1 - 2 days; Reason: Worsening of condition, Recheck today's complaints, Continuance of care, Re-evaluation by your physician. - Problem is new. - Symptoms have improved. Signatures: Dispatcher [employer] EDMS Annette Salazar RN RN lp1 Zia Wright RN RN ll1 Harjinder Garvin MD MD mh7 Corrections: (The following items were deleted from the chart) 01:22 01:07 05/27/2020 01:07 Discharged to Home. Impression: Dizziness and giddiness; Urinary lp1 tract infection, site not specified. Condition is Stable. Forms are Medication Reconciliation Form, Thank You Letter, Antibiotic Education, Prescription Opioid Use. Follow up: Private Physician; When: 1 - 2 days; Reason: Worsening of condition, Recheck today's complaints, Continuance of care, Re-evaluation by your physician. Problem is new. Symptoms have improved. mh7
--- NOTE | 2020-05-27 01:08 | ER ---
Nurse's Notes [facility] Name: Kathy Whyte Age: 54 yrs Sex: Female : 1965 Arrival Date: 05/26/2020 Time: 19:32 Bed 2 Private MD: Diagnosis: Dizziness and giddiness;Urinary tract infection, site not specified Presentation: 05/26 19:56 Chief complaint: Patient states: Dizziness, off balance, insomnia for 1 week. ll1 Coronavirus screen: Client denies travel out of the [place] in the last 14 days. At this time, the client does not indicate any symptoms associated with coronavirus-19. Ebola Screen: Patient denies travel to an Ebola-affected area in the 21 days before illness onset. Initial Sepsis Screen: Does the patient meet any 2 criteria? No. Patient's initial sepsis screen is negative. Initial Sepsis Screen: Does the patient have a suspected source of infection? No. Patient's initial sepsis screen is negative. Risk Assessment: Do you want to hurt yourself or someone else? Patient reports no desire to harm self or others. Onset of symptoms was May 19, 2020. 19:56 Method Of Arrival: Ambulatory ll1 19:56 Acuity: ARI 3 ll1 MATERIAL ENGINEER: 05/27 00:01 LMP N/A - Hysterectomy lp1 Historical: - Allergies: 05/26 19:58 NSAIDS; ll1 19:58 Stadol; ll1 19:58 Toradol; ll1 19:58 Neurontin; ll1 19:58 Morphine; ll1 19:58 Compazine; ll1 - Home Meds: 20:23 bupropion HCl 200 mg Oral TbER 1 tab 2 times per day [Active]; carvedilol 12.5 mg Oral lp1 tab 1 tab 2 times per day [Active]; Eliquis Oral [Active]; lisinopril 20 mg Oral tab [Active]; methocarbamol 750 mg Oral tab 1 tab every 4 hours [Active]; Risperdal 1 mg Oral tab 1 tab 2 times per day [Active]; sertraline 100 mg Oral tab 1 tab once daily [Active]; topiramate 25 mg Oral CSpX 1 cap once daily [Active]; triazolam 0.25 mg Oral tab 2 tabs once daily [Active]; - PMHx: 19:58 Seizures; Hypertension; High Cholesterol; Depression; Anxiety; CVA; ll1 - PSHx: 19:58 Cholecystectomy; Heart stents; CABG; Appendectomy; Hysterectomy; ll1 - Immunization history:: Flu vaccine is not up to date. - Social history:: Smoking status: Patient/guardian denies using tobacco, the patient reports quitting approximately 5 years ago. Screenin:23 Abuse screen: Denies threats or abuse. Denies injuries from another. Nutritional lp1 screening: No deficits noted. Tuberculosis screening: No symptoms or risk factors identified. 05/27 00:51 Fall Risk None identified. lp1 Assessment: 05/26 20:23 General: Appears in no apparent distress. Behavior is calm, cooperative. Pain: Denies lp1 pain. Neuro: Level of Consciousness is awake, alert, obeys commands, Oriented to person, place, situation, Moves all extremities. Full function Facial symmetry appears normal, Pupils are PERRLA, Tingling in left arm States occurred from previous CVA, constant feeling of tingling to left arm, moves extremity. Cardiovascular: Patient's skin is warm and dry. Respiratory: Respiratory effort is even, unlabored. GI: No signs and/or symptoms were reported involving the gastrointestinal system. : No signs and/or symptoms were reported regarding the genitourinary system. EENT: No signs and/or symptoms were reported regarding the EENT system. Derm: Skin is pink, warm \T\ dry. Musculoskeletal: No deficits noted. 21:30 Reassessment: Patient appears in no apparent distress at this time. Patient is alert, lp1 oriented x 3, equal unlabored respirations, skin warm/dry/pink. 22:30 Reassessment: Patient states slight dizziness during standing on orthostatic vitals. lp1 05/27 00:01 Reassessment: Patient is alert, oriented x 3, equal unlabored respirations, skin lp1 warm/dry/pink. Patient aware of waiting for lab results at this time. 00:21 Reassessment: Assisted patient to bathroom via WC. lp1 01:01 Reassessment: Verbal order for Keflex 500mg PO now; Provider notified of patient lp1 complaint of headache, verbal order for Tylenol 1g PO now. 01:20 Reassessment: Patient appears in no apparent distress at this time. Patient is alert, lp1 oriented x 3, equal unlabored respirations, skin warm/dry/pink. Steady gait noted. Vital Signs: 05/26 19:56 BP 116 / 92; Pulse 78; Resp 18; Temp 97.9; Pulse Ox 99% ; Weight 68.49 kg; Height 5 ft. ll1 3 in. (160.02 cm); Pain 7/10; 20:25 BP 127 / 58; Pulse 69; Resp 16; Pulse Ox 100% on R/A; lp1 22:30 BP 135 / 66 Supine; Pulse 65; lp1 22:35 BP 120 / 82 Sitting; Pulse 73; lp1 22:39 BP 99 / 80 Standing; Pulse 88; lp1 05/27 00:00 BP 144 / 82; Pulse 75; Resp 20; Pulse Ox 99% on R/A; lp1 01:21 BP 139 / 59; Pulse 73; Resp 19; Pulse Ox 99% on R/A; lp1 05/26 19:56 Body Mass Index 26.75 (68.49 kg, 160.02 cm) ll1 05/26 22:39 Patient states slight dizziness, standing independently lp1 ED Course: 19:32 Patient arrived in ED. cf2 19:58 Triage completed. ll1 19:59 Harjinder Garvin MD is Attending Physician. 7 19:59 Annette Salazar, RN is Primary Nurse. lp1 19:59 Arm band placed on Patient placed in an exam room, on a stretcher. ll1 20:24 Patient has correct armband on for positive identification. lp1 21:33 XRAY Chest (1 view) In Process Unspecified. EDMS 21:34 CT Head Brain wo Cont In Process Unspecified. EDMS 22:00 Initial lab(s) drawn, by me, sent to lab. Missed attempt(s): 20 gauge in left lp1 antecubital area. 23:29 Lab(s) recollected, by me, sent to lab. bb 05/27 01:21 No provider procedures requiring assistance completed. IV discontinued, No lp1 redness/swelling at site. Pressure dressing applied, 20g IV to R AC DC'd. Administered Medications: 01:01 Drug: Potassium Chloride 40 mEq Route: PO; lp1 :22 Follow up: Response: No adverse reaction lp1 01:02 Drug: KeFLEX 500 mg Route: PO; lp1 :22 Follow up: Response: No adverse reaction lp1 01:02 Drug: Tylenol 1000 mg Route: PO; lp1 01:22 Follow up: Response: No adverse reaction lp1 Outcome: 01:07 Discharge ordered by . rick 01:21 Discharged to home ambulatory, with significant other. lp1 01:21 Condition: good 01:21 Discharge instructions given to patient, Instructed on discharge instructions, follow up and referral plans. medication usage, Demonstrated understanding of instructions, follow-up care, medications, Prescriptions given X 1. 01:22 Patient left the ED. lp1 Signatures: Dispatcher [employer] EDMS Tegan Varma RN RN bb Annette Salazar RN RN lp1 Trudi Tanner cf2 Zia Wright RN RN ll1 Harjinder Garvin MD MD 7 Corrections: (The following items were deleted from the chart) : 01:21 IV discontinued, No redness/swelling at site. Pressure dressing applied, lp1 lp1
[2020-05-27 01:32] VITALS: TEMP 97.9
[2020-05-27 01:47] VITALS: O2SAT 99
[2020-05-27 01:52] VITALS: BP 139/59
--- NOTE | 2020-05-27 09:13 | RAD REPORT ---
EXAM DESCRIPTION: RAD - Chest Single View - 05/26/2020 9:32 pm CLINICAL HISTORY: Dizziness COMPARISON: April 18 portable exam TECHNIQUE: AP portable chest image was obtained 05/26/2020 9:32 pm . FINDINGS: Lungs are clear. Heart and vasculature are normal. No measurable pleural effusion and no p neumothorax. No acute bony abnormality seen. No acute aortic findings suspected. IMPRESSION: No acute cardiopulmonary process. No change from comparison.
--- NOTE | 2020-05-29 07:47 | EKG ---
Test Date: 2020-05-26 Test Time: 21:39:52 Senior Living Sales Counselor: YOANDY MEASUREMENT RESULTS: Intervals: Rate: 64 NC: 162 QRSD: 130 QT: 484 QTc: 499 Ruby: P: 69 NC: 162 QRS: 67 T: 92 INTERPRETIVE STATEMENTS: Normal sinus rhythm Right bundle branch block Abnormal ECG Compared to ECG 04/29/2020 22:52:21 No significant changes Electronically Signed On 05-29-20 07:44:13 CDT by Bora Soto
--- NOTE | 2020-05-29 10:15 | RAD REPORT ---
EXAM DESCRIPTION: CT - Head Brain Wo Cont - 05/27/2020 6:46 am CLINICAL HISTORY: 54 years Female DIZZINESS COMPARISON: April 29, 2020 TECHNIQUE: Images were obtained in axial, sagittal, and coronal planes. This exam was performed according to our departmental dose-optimization program which includes use of Automated Exposure Control, adjustment of the mA and/or kV according to patient size and/or use o f iterative reconstruction technique. FINDINGS: Ventricular system is age-appropriate in size. Moderate prominence of the cortical sulci. Prominent extra-axial cerebrospinal fluid spaces anteriorly bilaterally related to volume loss. More remote infarct and encephalomalacia right frontal temporal region unchanged. Prominent cerebral spina l fluid spaces anterior middle cranial fossa bilaterally. No abnormal areas of increased attenuation seen. No extra-axial fluid collection noted. No evidence for skull fracture. Unremarkable paranasal sinuses. Symmetric aeration mastoid air cells bilaterally. IMPRESSION: No acute intracranial abnormality. No evidence for hemorrhage, mass lesion, or large acu te infarction. Findings unchanged when correlated with the prior study. Electronically signed by: Suki Santiago MD 05/26/2020 9:54 PM CDT Due to temporary technical issues with the PACS/Fluency reporting system, reports are being signed by the in house radiologist without review as a courtesy to ensure prompt reporting. The interpreting r adiologist is fully responsible for the content of the report.
== END 2020-05-27 01:22 | disposition home or self-care (01) ==
LOC: ER 19:29
DX: N39.0 Urinary tract infection, site not specified (principal); I10 Essential (primary) hypertension; E78.00 Pure hypercholesterolemia, unspecified; G40.909 Epilepsy, unspecified, not intractable, without status epilepticus; F41.8 Other specified anxiety disorders; Z79.01 Long term (current) use of anticoagulants; Z95.1 Presence of aortocoronary bypass graft; Z88.5 Allergy status to narcotic agent; Z88.6 Allergy status to analgesic agent; Z88.8 Allergy status to other drugs, medicaments and biological substances; Z86.73 Personal history of transient ischemic attack (TIA), and cerebral infarction without residual deficits; Z95.818 Presence of other cardiac implants and grafts
CPT/HCPCS: 36415; 70450; 71045; 80048; 80076; 80307; 80320; 80329; 81003; 83735; 83880; 84484; 85025; 85610; 93005; 99284

== ENCOUNTER 2020-09-13 09:56 | Emergency (ER) | payer MEDICAID ==
--- OUTSIDE RECORDS SUMMARY | 2020-09-13 10:33 | XMS REPORT | Continuity of Care Document ---
:1965 Author Organization [employer] Care Team Providers Name Role Phone [employer] Unavailable Un available Problems Problem Status Onset Classification Date Comments Sourc e Date Reported STROKE Active 03/09/[address] Center DYSPNEA Active 03/09/[address] ENCEPHALITIS/SEIZUR Active 03/16/20 [facility] ES 15 Medical Center NON-HEMORRAGHIC Active 10/26/19 [facility] [place] STROKE 15 Medical Center ISCHEMIC CVA Active 11/13/19 [facility] s 14 [facility] Center WEAKNESS Active 11/13/[address] Center AMS Active 05/08/[address] CEREBRAL VASCULAR Active 07/19/20 [facility] ACCIDENT 12 Medical Center Anxiety (finding) Resolved Problem 03/14/2019 [facility] Chronic obstructive Active Problem 03/14/2019 [facility] lung disease Medical (disorder) Center Cerebrovascular Active Problem 03/14/2019 [facility] accident (disorder) [facility] Center Depression - motion Active Problem 03/25/2015 [facility]qual[facility] value[facility]henia [facility]finding[facility] Active Problem 03/14/2019 [facility] Hypertensive Active Problem 03/14/2019 [place] disorder, systemic M edical arterial (disorder) Center Migraine (disorder) Active Problem 03/14/2019 [facility] Anxiety Active Problem 05/14/2013 [facility] COPD Active Problem 05/14/2013 [facility] Depression Active Problem 05/14/2013 [facility] General weakness Active Problem 05/14/2013 [facility] Hypertension Active Problem 05/14/2013 [place] [facility] Center Migraine Active Problem 05/14/2013 [facility] Stroke Active Problem 05/14/2013 [facility] Antiphospholipid Resolved Problem 03/14/2019 [facility] syndrome (disorder) Medical Center Transient ischemic Resolved Problem 03/14/2019 [facility] attack (disorder) Ne dical Center Gastroesophageal Resolved Problem 03/14/2019 [facility] reflux disease Medic al (disorder) Center Hyperlipidemia Resolved Problem 03/14/2019 [facility] [place] ([place]order[place] [facility] Nausea (finding) Resolved Problem 03/14/2019 [facility] Morbid obesity Active Problem 03/14/2019 [place] (disorder) [facility] CVA Active [facility] ALTERED MENTAL [place] STATUS [facility] MALAISE AND FATIGUE Active [facility] NEC [facility] FEBRILE CONVULSIONS Active [facility] NOS [facility] DYSPNEA, Active [facility] UNSPECIFIED [facility] Medications Medication Details Route Status Patient Ordering Order Source Instructions Provider Date lisinopril 10 mg 10 mg = 1 tab, Active 03/12[facility] oral tablet PO, Daily, # 2019 Medical 30 tab, 2 Center Refill(s) aripiprazole 5 5 mg = 1 tab, Active 03/12[facility] MG Oral Tablet PO, Bedtime, # 2019 Me dical [Abilify] 30 tab, 0 Center Refill(s) buPROPion 200 200 mg = 1 Active 03/12[facility] [place] mg/12 hours (SR) tab, PO, BID, 2019 M edical oral tablet, # 60 tab, 0 Center extended release Refill(s) carvedilol 3.125 3.125 mg = 1 Active [facility] [place] mg oral tablet tab, PO, BID, 2019 Med ical # 60 tab, 0 Center Refill(s) atorvastatin 80 80 mg = 1 tab, Active H [place] mg oral tablet PO, Bedtime, # 2019 Me dical 30 tab, 0 Center Refill(s) LORazepam 2 mg 2 mg = 1 tab, Inactive 03/12[facility] oral tablet PO, BID, # 60 2019 Medica l tab, 0 Center Refill(s) cyclobenzaprine 10 mg = 1 tab, Active H [place] 10 mg oral PO, BID, # 30 2019 Medical tablet tab, 0 Center Refill(s) triazolam 0.25 0.5 mg = 2 Active [facility] [place] mg oral tablet tab, PO, 2019 Medical Bedtime, PRN Center Sleep, # 60 tab, 0 Refill(s) Potassium Notes: (Same Inactive [facility] Chloride as: K-Dur 20) 2019 Medical "Do Not Crush" Center Give with food and full glass of water For patients unable to swallow tablet, dissolve in one half glass of water. Allow about 2 minutes for the tablets to disintegrate. Stir before giving to prepare slurry and administer. Please exclude Patient’ s with feeding tube less than 14 [place] ([place], J-tube etc) and pediatric and patients. Potassium Notes: (Same Inactive [facility] Chloride as: K-Dur 20) 2019 Medical "Do Not Crush" Center Give with food and full glass of water For patients unable to swallow tablet, dissolve in one half glass of water. Allow about 2 minutes for the tablets to disintegrate. Stir before giving to prepare slurry and administer. Please exclude Patient’ s with feeding tube less than 14 [place] ([place], J-tube etc) and pediatric and patients. potassium Notes: (Same Inactive [facility] chloride as: Potassium 2019 [facility] Chloride) Center Sertraline Notes: (Same No Longer [place] as: Zoloft) Active 2019 Medical [place] Topamax Notes: (Same No Longer [facility] As: Topamax) Active 2019 Medical "Do Not Crush" [place] Potassium 20 mEq, Route: Inactive [place] Chloride PO, ONCE, 2019 Medical Dosing Weight Center 99.318, kg, Start date: 03/11/19 8:46:00 CDT, Stop date: 03/11/19 8:46:00 CDT Calcium Notes: WASTE: Inactive [facility] Gluconate F/P - Sink; E [facility] Trash Bin Potassium Notes: (Same Inactive [facility] Chloride 1.33 as: Potassium 2019 Medi see MEQ/ML Oral Chloride) Center Solution Melatonin 3 MG Notes: (Same No Longer [facility] Extended Release as: Melatonin) Active 2019 [facility] Tablet Center atorvastatin Notes: Same as No Longer [facility] Lipitor Active 2019 Medical [place] Lisinopril Notes: (Same No Longer [place] as: Prinivil, Active 2019 [facility] Zestril) Center heparin Notes: porcine [place] heparin Active 2019 [facility] [place] potassium Notes: (Same Inactive [facility] phosphate + as: K 2019 Medical [...] 03/10/19 14:09:00 CDT potassium Notes: (Same Inactive [place] chloride as: KCL) 2019 Medical Infuse no Center faster than 10 mEq/hr if given peripherally. Folic Acid Notes: (Same No Longer [place] as: Folvite) Active 2019 Medical Center Thiamine Notes: (Same No Longer [place] As: Vitamin Active 2019 [facility] B1) Center multivitamin Notes: (Same No Longer [...] Medical Center Albuterol 0.833 Notes: (Same Inactive [facility] MG/ML / as: Duoneb) 2019 Medical Ipratropium Center [place] 0.167 MG/ML Inhalant Solution Potassium Notes: (Same Inactive [facility] Chloride as: KCL) 2019 Medical Infuse no Center faster than 10 mEq/hr if given peripherally. Acetaminophen 100.4 F, No Longer [place] Start date: Active 2019 Medical 03/09/19 [place] 22:02:00 CDT, Duration: 30 day, Stop date: 04/08/19 22:01:00 CDT, 0 Ondansetron Notes: [place] MEDICATION Active 2019 Medical WASTE Center Product Size: 4 mg Product Wasted: ___ mg Dextrose 50% 12.5 gm, 25 [place] Syringe mL, Route: Active 2019 [facility] IVP, Drug Center Form: INJ, Dosing Weight 97.5, kg, PRN, PRN Blood Glucose Results, Start date: 03/09/19 22:02:00 CDT, Duration: 30 day, Stop date: 04/08/19 22:01:00 CDT, 0 Glucagon 1 mg, Route: No Longer [facility] IM, Drug form: Active 2019 Medical PDR/INJ, PRN, Center Dosing Weight 97.5, kg, PRN Blood Glucose Results, Start date: 03/09/19 22:02:00 CDT, Duration: 30 day, Stop date: 04/08/19 22:01:00 CDT, 0 Iohexol 100 mL, Route: Inactive [facility] IVP, Drug 2019 Medical Form: [facility] Dosing Weight 97.5, kg, ONCALL, STAT, Start date: 03/09/19 19:24:00 CDT, Duration: 1 doses or times, Dose = 2.2ml/kg, Max dose = 100ml -- "To be infused by Radiology Staff ONLY" Iohexol 82 mL, Route: Inactive [facility] IVP, Drug 2019 Medical Form: [facility], [place] Dosing Weight 97.5, kg, ONCALL, STAT, Start date: 03/09/19 19:06:00 CDT, Duration: 1 doses or times, Dose = 2.2ml/kg, Max dose = 100ml -- "To be infused by Radiology Staff ONLY" heparin additive Notes: Total No Longer Oxana 25,000 unit [12 Concentration Active 2019 Ne dical unit/kg/hr] + = 50 unit/mL; Cent er Premix Diluent Total volume = Sodium Chloride 500 mL Send 0.45% 500 mL Med Request 2 hours prior to next bag Heparin 30 Route: IVP, [place] unit/kg Bol[place] PRN, 2,300 Active 2019 [facility] (Heparin Dosing unit, 2.3 mL, Ce nter Weight) Drug form: INJ, PRN, Heparin Protocol, Start date: 03/09/19 18:37:00 CDT Stop date: 04/08/19 18:36:00 CDT, 30 day, 0 Heparin - one 4,000 unit, 4 Inactive [facility] time bolus for mL, Route: 2019 [...] 30 day, 0 Plavix Notes: (Same Inactive [place] as: Plavix) 2019 [facility] Magnesium Notes: WASTE: Inactive [place] Sulfate F/P - Sink; E 2019 [facility] Trash Bin potassium 40 mEq, 2 tab, Inactive [place] chloride 20 mEq Route: PO, 2019 Medic al oral tablet, Drug form: Center extended release ERTAB, ONCE, Dosing Weight 97.5, kg, Priority: STAT, Start date: 03/09/19 17:41:00 CDT, Stop date: 03/09/19 17:41:00 CDT, 0 Isolyte S PH-7.4 Notes: (Same Inactive [place] (Bolus) IV as: Isolyte S 2019 Medical PH 7.4) Center Acetaminophen Notes: Do not Inactive [facility] exceed 4 2015 Medical gm/day. (Same Center as: Tylenol) rivaroxaban 20 20 mg = 1 tab, Active [place] MG Oral Tablet PO, QPM, # 30 2015 Med ical [Xarelto] tab, 0 Center Refill(s) lisinopril 20 mg 20 mg = 1 tab, Active [facility] oral tablet PO, BID, # 60 2015 Medica l tab, 1 Center Refill(s) valACYclovir 1 g 1 gm = 1 tab, Active [facility] oral tablet PO, Q8H, X 14 2015 Medica l day, # 42 tab, Center 0 Refill(s) atorvastatin 80 80 mg = 1 tab, Active [place] mg oral tablet PO, Bedtime, # 2015 Me dical 30 tab, 1 Center Refill(s) Levetiracetam 1,000 mg = 1 [place] 1000 MG Oral tab, PO, BID, 2015 Medic al Tablet # 60 tab, 2 Center Refill(s) Rocephin 1 gm, Route: Inactive [place] IVPB, Drug 2014 Medical form: PDR/INJ, Center [id number], Dosing Weight 110.3, kg, Start date: 03/22/15 8:00:00, Duration: 30 day, Stop date: 04/20/15 8:00:00 Valtrex Notes: (Same No Longer [facility] As: Valtrex) Active 2014 [facility] acyclovir + Notes: (Same [place] Sodium Chloride as: Zovirax) Active 2014 Med ical 0.9% IV 100 mL MEDICATION Ce nter WASTE Product Size: 500 mg Product Wasted: _0__ mg Magnesium Oxide Notes: (Same Inactive [facility] as: Mag-Ox 2014 Medical 400) Magnesium Center oxide [id number] elemental magnesium Dose=____mg magnesium oxide (___mg elemental magnesium) Potassium Notes: (Same Inactive [facility] Chloride 1.33 as: Potassium 2014 Medi see MEQ/ML Oral Chloride) Center Solution Lipitor Notes: Same [place]er [place] Lipitor Active [address] [place] [address] Haloperidol Notes: (Same [place] as: Haldol) Active 2014 [facility] Sertraline Notes: (Same No Longer [place] as: Zoloft) Active 2014 [facility] pregabalin Notes: Same as [place] Longer [place] Lyrica Active [address] [place] [address] Wellbutrin Notes: (Same No Longer [place] As: Active 2014 [facility] Wellbutrin) Center pantoprazole Notes: Tablet No Longer [place] should not be Active 2014 [facility] chewed or Center crushed. (Same as: Protonix) Keppra Notes: (Same No Longer [place] as:Keppra) Active 2014 [facility] Topamax Notes: (Same No Longer [place] As: Topamax) Active [address] [place] [address] potassium Notes: (Same Inactive [place] chloride as: Potassium 2014 [facility] Chloride) [place] heparin Notes: porcine [place] Longer [place] heparin Active [address] [place] [address] Keppra + Sodium Notes: Same as No Longer [place] Chloride 0.9% IV Keppra Mix Active 2014 Med ical 100 mL with 100 mL Center NS, LR or D5W MEDICATION WASTE Product Size: 500 mg Product Wasted: ___ mg Lisinopril Notes: (Same No Longer [place] as: Prinivil, Active 2014 [facility] Zestril) [place] Hydralazine Notes: (Same [place] as: Active 2014 [facility] Apresoline) [place] Push over 5 minutes Labetalol 10 mg, 2 mL, [place]er [place] Route: IVP, Active 2014 Medical Drug form: [place] INJ, Q15Min, Dosing Weight 110.3, kg, PRN Hypertension, Start date: 03/16/15 22:36:00, Duration: 30 day, Stop date: 04/15/15 22:35:00 Levetiracetam 1,000 mg, Inactive [place] 100 MG/ML Oral Route: [place], 2014 Medica l Solution Drug form: Center [Keppra] SOLN, Q12H, Dosing Weight 110.3, kg, [...] Sodium 500 mg, IV, No Longer H [place] 100 mg/mL Q8H, 0 Active 2014 Medical intravenous Refill(s) [place] solution haloperidol 2 mg 2 mg = 1 tab, No Longer [place] oral tablet PO, BID, 0 Active 2015 Medical Refill(s) [place] Folic Acid 1 MG 1 mg = 1 tab, No Longer [place] Oral Tablet PO, Daily, # Active 2015 [...] 0 Refill(s) NS w/K20 Special No Longer [place] Instructions: Active 2014 Medical 70 mls/hr Center atorvastatin 80 80 mg = 1 tab, No Longer [place] mg oral tablet PO, Bedtime, # Active 2015 Me dical 30 tab, 0 Center Refill(s) topiramate 50 MG 50 mg = 1 tab, Active [place] Oral Tablet PO, BID, # 60 2015 [...] 2 mg = 1 cap, No Longer [facility] oral capsule PO, BID, 0 Active 2014 Medical Refill(s) Center acyclovir 500 mg IV, Q8H, 0 No Longer [facility] intravenous Refill(s) Active 2014 Medical injection Center Methocarbamol 250 mg, PO, [place] Longer [place] BID, 0 Active 2014 Medical Refill(s) Center Acetaminophen 650 mg, PO, No Longer [place] PRN, 0 Active 2014 Medical Refill(s) Center lisinopril 20 mg 20 mg = 1 tab, No Longer [facility] oral tablet PO, BID, 0 Active 2014 Medical Refill(s) Center pregabalin 50 mg 50 mg = 1 cap, Active [facility] oral capsule PO, BID, # 60 2015 Medic al cap, 1 Center Refill(s) cefTRIAXone 1 g 1 gm, IV, No Longer [place] injection Q12H, # 10 ea, Active 2014 Medical 0 Refill(s) Center Levofloxacin 500 mg, Route: No Longer [facility] PO, Drug form: Active 2014 Medical TAB, [...] Medi see MG Oral Tablet Drug form: [place] [Ultram] TAB, Q8H, Dosing Weight 110.3, kg, [...] Inactive [place] mg oral tablet tab, PO, 2015 Medical Daily, # 7 Center tab, 0 Refill(s) Wellbutrin Notes: (Same No Longer [place] As: Active 2014 Medical Wellbutrin) [place] Topamax Notes: (Same No Longer [place] As: Topamax) Active 2014 Medical "Do Not Crush" Center sennosides, GROUP HOME Notes: (Same No Longer M [facility] [place] as: Senokot) Active 2014 Medical Center metoprolol Notes: (Same No Longer [place] tartrate as: Lopressor) Active 2014 Medical 12.5mg=1/4 X Center 50 mg tab. Ondansetron Notes: (Same Inactive [place] as: Zofran) 2014 Medical Center Dexamethasone Notes: Inactive [place] Concentration: 2015 Medical 4mg/ml Center Naloxone Notes: Same as [place] Narcan 2014 Medical Center Flumazenil Notes: (Same [place]active [place] as: Romazicon) 2015 Medical Center Hydromorphone Notes: Same [place] as: Dilaudid 2014 Medical Center Metoprolol Notes: (Same Inactive [place] [...] IV SET ONLY potassium Notes: (Same Inactive [facility] chloride as: Potassium 2014 Medical Chloride) [...] date: 10/28/14 18:32:00 Vancomycin 2001 mg: Inactive [facility] infuse over 2015 Medical 2.5 hours Center Vancomycin FOR IV SET ONLY Vancomycin 2001 mg: No Longer [facility] infuse over Active 2014 Medical 2.5 hours Center Vancomycin FOR IV SET ONLY Ativan 2 mg, Route: Inactive [facility] IV, ONCE, 2015 Medical Dosing Weight Center 110.3, kg, Start date: 10/28/14 13:49:00, Stop date: 10/28/14 13:49:00 sodium phosphate Notes: (Same Inactive [facility] + Sodium as: Na 2014 Medical Chloride 0.9% IV Phosphate, Na C enter 250 mL PO4) potassium Notes: (Same Inactive [facility] chloride as: Potassium 2014 Medical Chloride) Center magnesium 2 gm, 50 mL, Inactive [facility] sulfate Route: IVPB2014 Medical Drug form: Center INJ, ONCE, Start date: 10/28/14 4:30:00, Stop date: 10/28/14 4:30:00 docusate sodium Notes: (Same No Longer [facility] 150 mg/15 mL as: Colace) Active 2014 Medical oral liquid Center chlorhexidine Notes: (Same No Longer [facility] gluconate 1.2 As: Peridex) Active 2014 Medic al MG/ML Mouthwash Center NS 1,000 mL 1,000 mL, No Longer [place] Rate: 100 Active 2014 Medical ml/hr, Infuse [...] Protonix) Propofol 10 Notes: If No Longer [place] MG/ML Injectable Diprivan - Active 2014 [facility] see Suspension change bottle Center & tubing every 12 hr Per state nursing law propofol can only be given by a nurse if patient is intubated or being intubated (unless the nurse is a MAINTENANCE MAN). Same as: Diprivan sodium Notes: (sodium Inactive [place] bicarbonate 75 bicarb 8.4% (1 2014 Me dical mEq + Sodium mEq/ml) 50 ml Cente r Chloride 0.45% VL) IV 925 mL ketAMINE 500 mg Notes: Per Inactive [place] + Sodium state nursing 2015 Medical Chloride 0.9% IV law ketamine Ce nter 245 mL can only be given by a nurse if patient is intubated or being intubated (unless the nurse is a MAINTENANCE MAN). Michelle Notes: Same No Longer [place] as: Keppra Active [address] [place] [address] Vancomycin 2001 mg: No Longer [place] infuse over Active 2014 [facility] 2.5 hours [place] Vancomycin FOR IV SET ONLY heparin additive 500 mL, Rate: No Longer [place] 25,000 unit [14 21.16 ml/hr, Active 2014 Med ical unit/kg/hr] + Infuse over: Cente r Premix Diluent 23.6 hr, Dextrose 5% 500 Route: IV, mL Dosing Weight 75.56 kg, Total Volume: 500 mL, Start date: 10/26/14 20:00:00, Duration: 30 day, Stop date: 11/25/14 19:59:00 hydrocortisone Notes: (Same No Longer [place] 100 mg injection as: Active [facility] Center physiological Notes: Total No Longer [place] irrigating ingredients in Active 2014 Medica l solution bag Na Center 140meq/L; K 4meq/L; HCO 35meq/L; Ca 3meq/L; Magnesium 1meq/L; CL 113meq/L; Glucose 100mg/dL; "Break seal Between compartments and mix before hanging" sennosides, GROUP HOME Notes: (Same No Longer [facility] as: Senokot) Active 2014 Medical [place] Lipitor Notes: Same as No Longer [place] Lipitor Active [address] [place] [address] Xarelto Notes: (Same Inactive [place] as: Xarelto) 2015 Medical Administer Center with food chlorhexidine Notes: (Same No Longer [place] gluconate 1.2 As: Peridex) Active 2014 Medic al MG/ML Mouthwash Center nxstage pureflow 1,000 mL, Inactive [place] [id number] 5000ml Route: 2014 Medical SOLN 1000 mL DIALYSIS, Center Irrigation Site: Vein, femoral, Rt, 3,000 ml/hr, 0.3 hr, Total Volume: 1,000, "For Irrigation Only", Start date: 10/26/14 16:50:00, Duration: 1 day, Stop date: 10/27/14 16:49:00 Ketamine Notes: Per No Longer [facility] Active 2014 [facility] ketamine Center can only be given by a nurse if patient is intubated or being intubated (unless the nurse is a MAINTENANCE MAN). lidocaine 1% Notes: (Same No Longer [place] as: Xylocaine) Active 2014 [facility] Ketamine Notes: Per Inactive [address] law ketamine Center can only be given by a nurse if patient is intubated or being intubated (unless the nurse is a MAINTENANCE MAN). Calcium Chloride 1,000 mg, 10 Inactive [place] mL, Route: 2014 Medical IVPB, ONCE, Center Dosing Weight 110.3, kg, Start date: 10/26/14 15:40:00, Stop date: 10/26/14 15:40:00 Iohexol Special Inactive [place] Instructions: 2015 Medical Dose = Center 2.2ml/kg, Max dose = 100ml -- "To be infused by Radiology Staff ONLY" Ketamine Notes: Total Inactive [place] Concentration 2015 Medical = 1mg/ml Total Center Volume = 100ml Infusion Rate= Begin Infusion at an initial rate of 0.1mg/kg/hr to a Maximum Rate of 0.25mg/kg/hr Please place a Med Request 2 hours before the next dose is needed. EPINEPHrine 4 mg 250 mL, Rate: No Longer [place] + Sodium Titrate, Active 2014 Medical Chloride 0.9% Dosing Weight Cent er (titrate) 250 mL 110.3, kg, Route: IV, Total Volume: 254, Start Date: 10/26/14 13:54:00, Duration: 30 day, Stop date: 11/25/14 13:53:00, Replace Every: 24 hr Etomidate Notes: (Same Inactive [place] as: Amidate). 2015 Medical Per state Center nursing law etomidate can only be given by a nurse if patient is intubated or being intubated (unless the nurse is a MAINTENANCE MAN). sodium Notes: (sodium Inactive [place] bicarbonate 8.4% bicarb 8.4% (1 2014 Medical mEq/ml) 50 ml Center syringe) Succinylcholine Notes: Same Inactive [place] as: Anectine 2014 [facility] Fentanyl 1,000 No Longer [place] microgram, 20 Active 2014 Medical mL, Rate: Center Titrate as directed, Dosing Weight 110.3, kg, Route: IV, Total Volume: 20 mL, Start Date: 10/26/14 13:52:00, Duration: 30 day, Stop date: 11/25/14 13:51:00, Replace Every: 24 hr Midazolam 1 Notes: (Same [place] MG/ML Injectable as: Versed) Active 2014 [facility] ical Solution Center Insulin regular Notes: (Same No Longer [place] 100 unit + as: Humulin R Active 2014 [facility] Sodium Chloride and NovoLIN R) C enter 0.9% (titrate) (Do not 99 mL shake) Dextrose 50% 6.25 gm, 12.5 No Longer [place] Syringe mL, Route: Active 2014 [facility] IVP, Drug Center Form: INJ, Dosing Weight 110.3, kg, PRN, PRN Abnormal Lab Result, Start date: 10/26/14 13:38:00, Duration: 30 day, Stop date: 11/25/14 13:37:00 nxstage pureflow Notes: Total Inactive [facility] [id number] 5000ml ingredients in 2014 Me dical 4,600 mL + bag Na Center albumin human 140meq/L; K 25% intravenous 4meq/L; HCO solution 100 gm 35meq/L; Ca 3meq/L; Magnesium 1meq/L; CL 113meq/L; Glucose 100mg/dL; "Break seal Between compartments and mix before hanging" Calcium Chloride 2 gm, 20 mL, No Longer [place] Route: IVPB, Active 2014 Medical PRN, Dosing [...] phosphate 15 mmol, 5 mL, No Longer [place] + Sodium Route: IVPB, Active 2014 Medical Chloride 0.9% IV PRN, Dosing Antionette ter 250 mL Weight 110.3, kg, PRN Abnormal Lab Result, Via central line, Start date: 10/26/14 13:20:00, Duration: 30 day, Stop date: 11/25/14 13:19:00 sodium Notes: (sodium No Longer [facility] s bicarbonate 75 bicarb 8.4% (1 Active 2014 Me dical mEq + Sodium mEq/ml) 50 ml Cente r Chloride 0.45% VL) IV 925 mL vasopressin 80 Notes: (Same No Longer [place] unit + Sodium As: Pitressin) Active 2014 [facility] ical Chloride 0.9% Center (titrate) 246 mL Flagyl Notes: (Same No Longer [facility] as: Flagyl) Active 2014 [facility] Avoid alcohol. Center cefepime Notes: (Same No Longer [facility] As: Maxipime) Active 2014 Medical Center Vancomycin 2001 mg: Inactive [place] infuse over 2015 [facility] 2.5 hours [place] Vancomycin FOR IV SET ONLY PlasmaLyte A 2,000 mL, No Longer [place] PH-7.4 2,000 mL Rate: 2,000 Active 2014 Medi see ml/hr, Infuse Center over: 1 hr, Route: IV, Dosing Weight 110.3 kg, Total Volume: 2,000, Start date: 10/26/14 9:06:00, Duration: 30 day, Stop date: 11/25/14 9:05:00 Wellbutrin Notes: (Same No Longer [place] As: Active 2014 Medical Wellbutrin) Center Haldol Notes: (Same Inactive [facility] [facility] as[facility] Topamax Notes: (Same Inactive [facility] As: Topamax) 2015 Medical "Do Not [...] capsular polysacchar influenza virus Notes: (Same Inactive [facility] vaccine, as: Fluzone 2014 Medical inactivated Quadrivalent) Center Levophed Notes: Not for No Longer [place] as Bitartrate 32 mg direct Active 2014 Medical + Sodium administration Center Chloride 0.9% - DILUTE. (titrate) 218 mL Protect from light. (Same as:Levophed). Administer by either central venous catheter or peripherally-i nserted central catheter (PICC) line. Albumin Human, Notes: Lot #: Inactive [facility] 250 MG/ML 2014 Medi see Injectable Mfg: Center Solution (Same as: Plasbumin-25) "blood product derivative" Protonix Notes: (Same Inactive [facility] as: Protonix) 2014 [facility] Albumin Human, Notes: LOT#: Inactive [facility] 50 MG/ML 2014 Medic al Injectable Mfg: Center Solution (Same as: Albuminar) "blood product derivative&quo t; Versed Notes: (Same No Longer [facility] as: Versed) Active 2014 Medical [place] magnesium 2 gm, 50 mL, Inactive Oxana sulfate Route: IVPB, 2014 Medical Drug form: Center INJ, Q2H, Start date: 10/26/14 2:00:00, Duration: 2 doses or times, Stop date: 10/26/14 4:00:00 Iohexol Special Inactive Oxana Instructions: 2015 Medical Dose = Center 2.2ml/kg, Max dose = 100ml -- "To be infused by Radiology Staff ONLY" magnesium 4 gm, 100 mL, Inactive [place] sulfate Route: IVPB2014 Medical Drug form: Center INJ, ONCE, Start date: 10/26/14 0:44:00, Stop date: 10/26/14 0:44:00 Reglan Notes: (Same No Longer [facility] as: Reglan) Active 2014 [facility] Valproic Acid 1,000 mg, Inactive [place] [...] 10/26/14 0:15:00 Reglan 10 mg, Route: Inactive Ox[place] IVP, Drug 2014 Medical form: INJ, Center Q6H, Dosing Weight 110.3, kg, Priority: NOW, Start date: 10/26/14 0:14:00, Duration: 30 day, Stop date: 11/25/14 0:00:00 NS 1,000 mL 1,000 mL, Inactive Oxana Rate: 150 2015 Medical ml/hr, Infuse Center over: 6.7 hr, [...] BID, On Hold [place] 0 Refill(s) 2014 [facility] Bupropion 200 mg = 2 On Hold [place] Hydrochloride tab, PO, BID, 2014 Medi see 100 MG Oral 0 Refill(s) [place] Tablet [Wellbutrin] tramadol 50 mg = 1 [...] 0 Active 2014 Medica l [Xarelto] Refill(s) [place] Esomeprazole 40 = 1 tab, PO, Inactive [place] MG Enteric Daily, 0 2014 Medical Coated Capsule Refill(s) [place] [Nexium] 120 ACTUAT 1 spray, Inactive [place] Triamcinolone NASAL, Daily, 2014 [facility] Acetonide 0.055 # 17 gm, 0 Cente r MG/ACTUAT Nasal Refill(s) Inhaler [Nasacort] atorvastatin 80 80 mg = 1 tab, Active H [place] MG Oral Tablet PO, Daily, 0 2014 [facility] see [Lipitor] Refill(s) [place] Haldol 2 mg, PO, BID, On Hold [place] 0 Refill(s) 2014 [facility] Acetaminophen Notes: Max [place] Longer [place] acetaminophen Active 2014 Medical = 4000mg/day [place] (4 gm/day). (Same as: Tylenol) Sodium Chloride [...] [place] 0.9% as: BD Active 2014 [facility] Posiflush) [place] Ondansetron Notes: (Same [place] Long[place] as: Zofran) Active 2014 [facility] NS 1,000 mL 1,000 mL, No Longer [place] Rate: 100 Active 2014 Medical ml/hr, Infuse Center over: 10 hr, Route: IV, Dosing Weight 96.364 kg, Total Volume: 1,000, Start date: 10/25/14 21:30:00, Duration: 30 day, Stop date: 11/24/14 21:29:00 norepinephrine Notes: Not for No Longer [place] 16 mg + Sodium direct Active 2014 Medical Chloride 0.9% administration Antionette ter (titrate) 234 mL - DILUTE. Protect from light. (Same as:Levophed). Administer by either central venous catheter or peripherally-i nserted central catheter (PICC) line. Regular Insulin, 60 units) No Longer H [place] Human 100 UNT/ML Stable for 28 Active 2014 edical Injectable days at room Center Solution temperature Expires in days from Date Dextrose 50% 25 gm, 50 mL, No Longer [place] Syringe Route: IVP, Active 2014 Medical Drug Form: Center INJ, Dosing Weight 96.364, kg, PRN, PRN Abnormal Lab Result, Start date: 10/25/14 21:28:00, Duration: 30 day, Stop date: 11/24/14 21:27:00 Coumadin 2 mg, 1 tab, Inactive [facility] Route: PO, 2013 Medical Drug form: Center TAB, Q5PM, Start date: 11/14/13 17:00:00, Duration: 1 doses or times, Stop date: 11/14/13 17:00:00Nurse to ensure documentation of patient education per anticoagulatio n policy. Avoid large intake of vitamin-K containing foods diet. (Same As: Coumadin) Warfarin 5 mg, 1 tab, Inactive [facility] Route: PO, 2013 Medical Drug form: Center TAB, Q5PM, Dosing Weight 96.364, kg, Start date: 11/14/13 17:00:00, Duration: 1 doses or times, Stop date: 11/14/13 17:00:00Nurse to ensure documentation of patient education per anticoagulatio n policy. Avoid large intake of vitamin-K containing foods diet. (Same As: Coumadin) Levetiracetam 500 mg = 1 Active [place] 500 MG Oral tab, PO, Q12H, 2013 Medic al Tablet [Keppra] # 60 tab, 0 Cent er Refill(s) Levetiracetam 500 mg, 1 tab, No Longer 11/14[facility] [place] 500 MG Oral Route: PO, Active 2013 Medical Tablet [Keppra] Drug form: Cente r TAB, Q12H, Dosing Weight 96.364, kg, Start date: 11/14/13 13:00:00, Duration: 30 day, Stop date: 12/14/13 9:00:00(Same as:Keppra) pneumococcal 0.5 ml, Route: Inactive Oxana capsular IM, Drug Form: 2013 Medical [...] Route: PO, Active 2013 Medical Drug form: [place] CAP, Bedtime, Dosing Weight 96.364, kg, PRN Insomnia, Start date: 11/13/13 22:09:00, Duration: 1 day, Stop date: 11/14/13 22:08:00(Same as: Benadryl) atorvastatin 80 mg, 2 tab, No Longer [place] Route: PO, Active 2013 Medical Drug form: [place] TAB, Bedtime, Dosing Weight 96.364, kg, Start date: 11/13/13 21:00:00, Duration: 30 day, Stop date: 12/12/13 21:00:00(Same as: Lipitor) Coumadin 5 mg, 1 tab, Inactive [place] Route: PO2013 Medical Drug form: [place] TAB, Q5PM, Dosing Weight 96.364, kg, Start date: 11/13/13 17:00:00, Duration: 1 doses or times, Stop date: 11/13/13 17:00:00Nurse to ensure documentation of patient education per anticoagulatio n policy. Avoid large intake of vitamin-K containing foods diet. (Same As: Coumadin) Ativan 0.5 mg, 1 tab, Inactive [place] Route: PO2013 Medical Drug form: [place] TAB, ONCE, Dosing Weight 96.364, kg, Start date: 11/13/13 16:00:00, Stop date: 11/13/13 16:00:00(Same as: Ativan) Ativan 0.5 mg, 1 tab, Inactive [facility] Route: PO2013 Medical Drug form: [place] TAB, ONCE, Dosing Weight 96.364, kg, Start date: 11/13/13 15:08:00, Stop date: 11/13/13 15:08:00(Same as: Ativan) atorvastatin 80 80 mg = 1 tab, No Longer [place] MG Oral Tablet PO, Bedtime Active 2013 Medic al [Lipitor] [place] Thiothixene 5 MG 5 mg = 1 cap, Active H [place] Oral Capsule PO, BID, # 60 2013 Medic al [Navane] cap Center haloperidol 5 mg 5 mg = 1 tab, Active H [place] oral tablet PO, BID, # 60 2013 Medica l tab [place] Sertraline 100 100 mg = 1 Active [place] as MG Oral Tablet tab, PO, BID, 2013 Med ical [Zoloft] # 60 tab [place] 12 HR Bupropion 200 mg = 1 [place] Hydrochloride tab, PO, BID, 2013 Medi see 200 MG Extended # 60 tab Center Release Tablet [Wellbutrin] lisinopril 40 mg 40 mg = 1 tab, Active [facility] oral tablet PO, Daily 2013 [facility] verapamil 300 300 mg = 1 Active [place] mg/24 hours oral cap, PO, Daily 2013 [facility] extended release Saline Flush 5 ml, Route: No Longer [place] 0.9% IVP, Drug Active 2013 Medical Form: INJ, [place] Dosing Weight 96.364, kg, Q12H, Start date: 11/13/13 9:00:00, Duration: 30 day, Stop date: 12/12/13 21:00:00(Same as: BD Posiflush) Aspirin 325 MG 325 mg, 1 tab, Inactive [facility] Enteric Coated Route: PO, 2013 Medica l Tablet Drug form: [place] ECTAB, Daily, Dosing Weight 96.364, kg, Start date: 11/13/13 9:00:00, Duration: 30 day, Stop date: 12/12/13 9:00:00(Do Not Crush) Do not crush or chew. Versed 1 mg, 1 mL, No Longer [facility] Route: IV, Active 2013 Medical Drug form: [place] INJ, PRN, Dosing Weight 96.364, kg, PRN Other -See Comment, Start date: 11/13/13 7:06:00, Duration: 30 day, Stop date: 12/13/13 7:05:00(Same as: Versed) Iohexol 85 mL, Route: Inactive [facility] IVP, Drug 2013 Medical Form: [facility] Dosing Weight 96.364, kg, ONCALL, STAT, Start date: 11/13/13 6:04:00, Duration: 1 doses or times, Stop date: 11/14/13 0:00:00, Dose = 2.2ml/kg, Max dose = 100ml -- "To be infused by Radiology Staff ONLY"(Same as:Omnipaque 350). Enoxaparin 40 mg, 0.4 mL, Inactive [place] Route: SUB-Q, 2013 Medical Drug form: Center INJ, [id number], Dosing Weight 96.364, kg, Start date: 11/13/13 [...] Acetaminophen 650 mg, 2 tab, No Longer [facility] [place] [facility] Route: PO, Active 2013 Medical Drug [...] 12/13/13 5:14:00 Coumadin 7 mg, PO, Active [place] Daily, 0 2013 Medical Refill(s) Center Saline Flush 5 mL, Route: No Longer [place] 0.9% IVP, Drug Active 2013 Medical Form: INJ, Center Dosing Weight 96.364, kg, PRN, PRN Line Flush, Start date: 11/13/13 3:58:00, Duration: 30 day, Stop date: 12/13/13 3:57:00preserv ative free. Navane 2 mg oral 2 mg, PO, BID, PO Active [facility] 05/12[facility] [place] capsule 60 tab, 2012 Medical Substitution Center Allowed, CAP Zoloft 100 mg 100 mg, 1 tab, PO Active [facility] 05/12[facility] [place] oral tablet PO, BID, 60 2012 Medical tab, Center Substitution Allowed, TAB haloperidol 2 mg 2 mg, 1 tab, PO Active [facility] 05/12[facility] [place] oral tablet PO, BID, 60 2012 Medical tab, Center Substitution Allowed Wellbutrin 100 100 mg, 1 tab, PO Active [facility] 05/12[facility] [place] mg oral tablet PO, BID, 60 2012 Medic al tab, Center Substitution Allowed, TAB Levaquin 750 mg 750 mg, 1 tab, PO Active [facility] 05/12[facility] H [place] oral tablet PO, Q24H, 7 2012 Medical tab, Center Substitution Allowed, TAB Flagyl ER 750 mg 750 mg, 1 tab, PO No Longer [facility] 05/12[facility] oral tablet, PO, Daily, 7 Active 2012 Medica l extended release tab, [place] Substitution Allowed, ERTAB metoprolol 50 mg, 1 tab, PO No Longer [facility] 05/12[facility] [place] tartrate Route: PO, Active 2012 Medical Drug form: [place] TAB, Q12H, Dosing Weight 98.182, kg, Start date: 05/11/13 21:00:00, Duration: 30 day, Stop date: 06/10/13 9:00:00 Multiple 1 cap, PO, PO Active [facility] 05/11[facility] [place] Vitamins oral Daily, 30 cap, 2012 Med ical capsule Substitution Center Allowed, Maintenance, CAP atorvastatin 80 80 mg, 1 tab, PO Active [facility] 05/11[facility] [place] mg oral tablet PO, Bedtime, 2012 Medi see 30 tab, Center Substitution Allowed, TAB aspirin 81 mg 81 mg, 1 tab, PO Active [facility] 05/11[facility] [place] tablet, enteric PO, Daily, 30 2012 Me dical coated tab, [place] Substitution Allowed, ECTAB metoprolol 25 mg, 1 tab, PO No Longer [facility] [place] tartrate Route: PO, Active 2012 Medical Drug form: Center TAB, ONCE, Dosing Weight 98.182, kg, Priority: STAT, Start date: 05/11/13 8:38:00, Stop date: 05/11/13 8:38:00 Flagyl 500 mg, 100 IVPB No Longer [facility] mL, Route: Active 2012 Medical IVPB, Drug Center form: INJ, [id number], Dosing Weight 98.182, kg, Start date: 05/10/13 18:00:00, Duration: 30 day, Stop date: 06/09/13 10:00:00 azithromycin + 500 mg, Route: IVPB No Longer [facility] [place] Sodium Chloride IVPB, [id number], Active 2012 M edical 0.9% IV 250 mL Dosing Weight Antionette ter 98.182, kg, Start date: 05/10/13 18:00:00, Duration: 30 day, Stop date: 06/08/13 18:00:00 Neutra-Phos 1 pkt, Route: PO No Longer [facility] [place] PO, Drug Form: Active 2012 Medical PDR/REC, Center Dosing Weight 98.182, kg, ONCE, Start date: 05/10/13 17:45:00, Stop date: 05/10/13 17:45:00 magnesium 1 gm, Route: IVPB No Longer [facility] [place] sulfate IVPB, Drug Active 2012 Medical form: INJ, Center ONCE, Dosing Weight 98.182, kg, Start date: 05/10/13 17:45:00, Stop date: 05/10/13 17:45:00 heparin 5,000 unit, 1 SUB-Q No Longer [facility] mL, Route: Active 2012 Medical SUB-Q, Drug Center form: INJ, Q8H, Dosing Weight 98.182, kg, Start date: 05/10/13 16:00:00, Duration: 30 day, Stop date: 06/09/13 8:00:00 aspirin 81 mg, 1 tab, PO No Longer [facility] Route: PO, Active 2012 Medical Drug form: Center ECTAB, Daily, Dosing Weight 98.182, kg, Start date: 05/10/13 13:00:00, Duration: 30 day, Stop date: 06/09/13 9:00:00 azithromycin 250 250 mg, 1 tab, PO No Longer [facility] mg oral tablet Route: PO, Active 2012 Medica l Drug form: Center TAB, [id number], Dosing Weight 98.182, kg, Start date: 05/10/13 8:00:00, Duration: 4 doses or times, Stop date: 05/13/13 8:00:00 Versed 1 mg, 1 mL, IV No Longer Tom Oxana Route: IV, Active 2012 Medical Drug form: [place] INJ, ONCE, Dosing Weight 98.182, kg, Start date: 05/10/13 7:41:00, Stop date: 05/10/13 7:41:00 magnesium 2 gm, 50 mL, IVPB [place] Longer [place] sulfate Route: IVPB, Active 2012 Medical Drug form: [place] INJ, Q2H, Dosing Weight 98.182, kg, Total Dose = 4 gm, Start date: 05/10/13 6:00:00, Duration: 2 doses or times, Stop date: 05/10/13 8:00:00, For Mg = 1.5 - 1.7 mg/dLFor Mg = 1.5 - 1.7 mg/dL Lipitor 80 mg, 1 tab, PO No Longer [place] Oxana Route: PO, Active 2012 Medical Drug form: [place] TAB, Bedtime, Dosing Weight 113.636, kg, Start date: 05/09/13 21:00:00, Duration: 30 day, Stop date: 06/07/13 21:00:00 Mag-Ox 400 400 mg, 1 tab, PO No Longer [place] Route: PO, Active 2012 Medical Drug form: [place] TAB, On Adm, Start date: 05/09/13 19:00:00, Duration: 1 doses or times, Stop date: 05/09/13 21:00:00 magnesium oxide 500 mg, Route: PO No Longer [place] [facility] 500 mg oral PO, Drug form: Active 2012 Medical tablet TAB, ONCE, [place] Dosing Weight 98.182, kg, Start date: 05/09/13 18:08:00, Stop date: 05/09/13 18:08:00 thiamine 100 mg, 1 tab, PO No Longer [place] Route: PO, Active 2012 Medical Drug form: [place] TAB, Daily, Dosing Weight 98.182, kg, Start date: 05/09/13 9:00:00, Duration: 30 day, Stop date: 06/07/13 9:00:00 folic acid 1 mg, 1 tab, PO No Longer [place] 05/09[facility] [place] Route: PO, Active 2012 Medical Drug form: Center TAB, Daily, Dosing Weight 98.182, kg, Start date: 05/09/13 9:00:00, Duration: 30 day, Stop date: 06/07/13 9:00:00 multivitamin 1 tab, Route: PO No Longer [place] 05/09[facility] PO, Drug Form: Active 2012 Medical TAB, Dosing Center Weight 98.182, kg, Daily, Start date: 05/09/13 8:10:00, Duration: 30 day, Stop date: 06/07/13 9:00:00 heparin 5,000 unit, 1 SUB-Q No Longer Tom [facility] mL, Route: Active 2012 Medical SUB-Q, Drug [place] form: INJ, Q8H, Dosing Weight 98.182, kg, Start date: 05/09/13 8:00:00, Duration: 30 day, Stop date: 06/08/13 0:00:00 Plavix 75 mg, 1 tab, PO No Longer [place] [facility] Route: PO, Active 2012 Medical Drug form: Center TAB, Daily, Dosing Weight 98.182, kg, Start date: 05/09/13 8:00:00, Duration: 30 day, Stop date: 06/07/13 9:00:00 Rocephin 1 gm, Route: IVPB No Longer Tom 05/09[facility] IVPB, Drug Active 2012 Medical form: PDR/INJ, Center [id number], Dosing Weight 98.182, kg, Start date: 05/09/13 8:00:00, Duration: 4 doses or times, Stop date: 05/13/13 8:00:00 insulin regular 3 unit, 0.03 SUB-Q No Longer [facility] 05/09[facility] 100 units/mL mL, Route: Active [...] NEB, Active Brice 2012 Medical Drug form: [place] SOLN, PRN, Dosing Weight 113.636, kg, PRN Respiratory Protocol, Start date: 05/08/13 21:59:00, Duration: 30 day, Stop date: 06/07/13 21:58:00 Tylenol 325 mg, 1 tab, PO No Longer [place] Route: PO, Active [place] 2012 Medical Drug form: [place] TAB, Q4H, Dosing Weight 113.636, kg, PRN Pain, Start date: 05/08/13 21:58:00, Duration: 30 day, Stop date: 06/07/13 21:57:00 Saline Flush 5 ml, Route: IVP No Longer [place] 0.9% IVP, Drug Active [place] 2012 Medical Form: INJ, [place] Dosing Weight 113.636, kg, Q12H, Start date: 05/08/13 21:00:00, Duration: 30 day, Stop date: 06/07/13 9:00:00 docusate 100 mg, 1 cap, PO No Longer Read [place] Route: PO, Active [place] 2012 Medical Drug form: [place] CAP, Q12H, Dosing Weight 113.636, kg, Start [...] 100 mg, 1 tab, PO Active Ava [place] oral tablet PO, Q6H, 2011 Medical [...] 0.5 ml, Route: IM No Longer SYSTEM [facility] vaccine, IM, Drug Form: Active 2011 Medical inactivated INJ, Start Center date: 07/21/12 12:08:00, Stop date: 07/21/12 12:08:00 verapamil 80 mg 80 mg, 1 tab, PO Active Quang [facility] oral tablet PO, TID, 90 2011 Medical tab, 3, 3, Center Substitution Allowed, TAB Haldol 2 mg, 2 tab, PO No Longer Chahil [facility] Route: PO, Active 2011 Medical Drug form: [place] TAB, Daily, Dosing Weight 113.636, kg, Start date: 07/21/12 9:00:00, Duration: 30 day, Stop date: 08/19/12 9:00:00 aspirin 325 mg, 1 tab, PO No Longer [place] Route: PO, Active 2011 Medical Drug form: [place] TAB, Daily, Dosing Weight 113.636, kg, Start [...] Route: PO, Active 2011 Medical Drug form: [place] TAB, Q12H, Dosing Weight 113.636, kg, Start date: 07/20/12 23:00:00, Duration: 30 day, Stop date: 08/19/12 11:00:00 clonidine 0.1 mg, 1 tab, PO No Longer [place] Route: PO, Active 2011 Medical Drug form: [place] TAB, Q8H-05, Dosing Weight 113.636, kg, Start date: 07/20/12 21:00:00, Duration: 30 day, Stop date: 08/19/12 13:00:00 Lipitor 40 mg, 1 tab, PO No Longer Chahil [facility] Route: PO, Active 2011 Medical Drug form: [place] TAB, QPM, Dosing Weight 113.636, kg, Start date: 07/20/12 17:00:00, Duration: 30 day, Stop date: 08/18/12 17:00:00 NS (Bolus) IV 500 mL, Rate: IV No Longer [facility] 500 mL 500 ml/hr, Active 2011 Medical Infuse over: 1 Center hr, Route: IV, kg, Total Volume: 500, Priority: STAT, Start date: 07/20/12 16:31:00, Duration: 1 doses or times, Stop date: 07/20/12 17:30:00, Bolus DoseBolus Dose caffeine 300 mg, 1.5 PO No Longer e [facility] tab, Route: Active 2011 Medical PO, Drug form: [place] TAB, ONCE, Start date: 07/20/12 15:30:00, Stop date: 07/20/12 15:30:00 aspirin 81 mg, 1 tab, PO No Longer [facility] Oxana Route: PO, Active 2011 Medical Drug form: [place] ECTAB, Daily, Dosing Weight 113.636, kg, Start date: 07/20/12 15:00:00, Duration: 30 day, Stop date: 08/19/12 9:00:00 Zofran 4 mg, 2 mL, IV No Longer [facility] Route: IV, Active 2011 Medical Drug form: [place] INJ, Q6H, Dosing Weight 113.636, kg, PRN Nausea, Start date: 07/20/12 13:23:00, Duration: 30 day, Stop date: 08/19/12 13:22:00 caffeine-sodium 250 mg, 1 mL, IVPB No Longer [facility] benzoate + Route: IVPB, Active 2011 Medical Sodium Chloride Drug form: Cente r 0.9% IV 1,000 mL INJ, ONCE, Dosing Weight 113.636, kg, Start date: 07/20/12 13:20:00, Stop date: 07/20/12 13:20:00 Navane 20 mg, 4 cap, PO No Longer [facility] Route: PO, Active 2011 Medical Drug form: [place] CAP, Daily, Dosing Weight 113.636, kg, Start date: 07/20/12 9:00:00, Duration: 30 day, Stop date: 08/18/12 9:00:00 clonidine 0.1 mg, Route: PO No Longer [facility] [place] PO, Drug form: Active 2011 Medical TAB, TID, [place] Dosing Weight 113.636, kg, Start date: 07/20/12 9:00:00, Duration: 30 day, Stop date: 08/18/12 17:00:00 Haldol 2 mg, 1 tab, PO No Longer [facility] Route: PO, Active 2011 Medical Drug form: [place] TAB, Daily, Dosing Weight 113.636, kg, Start date: 07/20/12 9:00:00, Duration: 30 day, Stop date: 08/18/12 9:00:00 Zoloft 100 mg, 1 tab, PO No Longer [facility] [place] bocanegra Route: PO, Active 2011 Medical Drug form: [place] TAB, Daily, Dosing Weight 113.636, kg, Start date: 07/20/12 9:00:00, Duration: 30 day, Stop date: 08/18/12 9:00:00 Wellbutrin 300 mg, 2 tab, PO No Longer [facility] [place] Route: PO, Active 2011 Medical Drug form: [place] ERTAB, Daily, Dosing Weight 113.636, kg, Start date: 07/20/12 9:00:00, Duration: 30 day, Stop date: 08/18/12 9:00:00 influenza virus 0.5 ml, Route: IM No Longer SYSTEM Oxana vaccine, IM, Drug Form: Active 2011 Medical inactivated INJ, Start Center date: 07/20/12 9:00:00, Stop date: 07/20/12 9:00:00 Saline Flush 5 ml, Route: IVP No Longer [place] 0.9% IVP, Drug Active 2011 Medical [facility]: [facility] Dosing Weight 113.636, kg, Q12H, Start date: 07/19/12 21:00:00, Duration: 30 day, Stop date: 08/18/12 9:00:00 famotidine 20 mg, 1 tab, PO No Longer [place] Route: PO, Active 2011 Medical Drug form: [place] TAB, Q12H, Dosing Weight 113.636, kg, Start date: 07/19/12 21:00:00, Duration: 30 day, Stop date: 08/18/12 9:00:00 Visipaque 100 mL, Route: IVP No Longer [place] 320mg/ml IVP, Drug Active 2011 Medical Form: [facility] Dosing Weight 113.636, kg, ONCALL, STAT, Start date: 07/19/12 14:56:00, Duration: 1 doses or times, Dose = 2.2ml/kg, Max dose = 150mlDose = 2.2ml/kg, Max dose = 150ml enoxaparin 40 mg, 0.4 mL, SUB-Q No Longer [place] Route: SUB-Q, Active 2011 Medical Drug form: [place] INJ, Q24H, Dosing Weight 113.636, kg, Start date: 07/19/12 11:00:00, Duration: 30 day, Stop date: 08/17/12 11:00:00 hydromorphone 1 mg, 0.5 mL, IVP No Longer [place] [facility] Route: IVP, Active 2011 Medical Drug form: [place] INJ, ONCE, Dosing Weight 113.636, kg, Priority: STAT, Start date: 07/19/12 10:49:00, Stop date: 07/19/12 10:49:00 Plavix 75 mg, 1 tab, PO No Longer [place] Route: PO, Active 2011 Medical Drug form: [place] TAB, Daily, Dosing Weight 113.636, kg, Priority: STAT, Start date: 07/19/12 10:17:00, Duration: 30 day, Stop date: 08/18/12 9:00:00 Saline Flush 5 ml, Route: IVP [facility] Longer [facility] [place] 0.9% IVP, Drug Active 2011 Medical Form: INJ, [place] Dosing Weight 113.636, kg, PRN, PRN Line Flush, Start date: 07/19/12 10:05:00, Duration: 30 day, Stop date: 08/18/12 10:04:00 acetaminophen 650 mg, 2 tab, PO No Longer [place] [facility] Route: PO, Active 2011 Medical Drug form: [place] TAB, Q4H, Dosing Weight 113.636, kg, PRN Pain/Fever, Start date: 07/19/12 10:05:00, Duration: 30 day, Stop date: 08/18/12 10:04:00 Sodium Chloride 1,000 mL, [facility] [place] [facility] 1,000 mL Rate: 75 Active 2011 Medica l ml/hr, Infuse Center over: 13.3 hr, Route: IV, kg, Total Volume: 1,000, Start date: 07/19/12 10:05:00, Duration: 30 day, Stop date: 08/18/12 10:04:00 Navane 20 mg, PO, PO Active [facility] Daily, 2011 Medical Substitution Center Allowed Haldol 2 mg, PO, PO Active [facility] Daily, 2011 Medical Substitution Center Allowed Wellbutrin 300 mg, PO, PO Active [facility] Daily, 2011 Medical Substitution Center Allowed Zoloft 100 mg, PO, PO Active [facility] Daily, 2011 Medical Substitution Center Allowed clonidine 0.3 mg, PO, PO Active [place] [facility] TID2011 Medical Substitution Center Allowed promethazine 25 mg, 1 mL, IVPB No Longer [facility] Route: IVPB, Active 2011 Medical Drug form: Center INJ, ONCE, Dosing Weight 113.636, kg, Priority: STAT, Start date: 07/19/12 6:57:00, Stop date: 07/19/12 6:57:00 hydromorphone 1 mg, 0.5 mL, IVP No Longer [place] 07/19/ [facility] Route: IVP, Active 2011 Medical Drug form: Center INJ, ONCE, Dosing Weight 113.636, kg, Priority: STAT, Start date: 07/19/12 6:56:00, Stop date: 07/19/12 6:56:00 Allergies, Adverse Reactions, Alerts Substance Category Reaction Severity Reaction Status Date Comments S ource type Reported Compazine Assertion Drug Active [facility] Depakote Assertion Drug [place] [facility] labetalol Assertion Drug Active [facility] NSAIDs Assertion Drug Active [place] as [facility] Stadol Assertion Drug Active [place] [facility] Toradol Assertion Drug Active [place] [facility] Vicoprofen Assertion Drug Active [facility] Immunizations Immunization Date Given Site Status Last Comments Source Updated influenza virus 10/28/2014 Left completed Aliza [facility] vaccine, Deltoid [facility] inactivated Center pneumococcal 11/14/2013 Right completed Keegan Tommy as 23-valent vaccine [facility] dical Center influenza virus 07/21/2012 Right completed Yovany [facility] vaccine, Deltoid Medical inactivated Center influenza virus 07/21/2012 completed Yovany [facility] vaccine, Medical inactivated Center influenza virus 07/21/2012 Not Given Yovany [facility] vaccine, Medical inactivated [place] influenza virus 07/21/2012 Not Given Yovany [facility] vaccine, Medical inactivated [place] Results Order Name Results Value Reference Date Interpretation Comments Manda rce Range CHEM PANEL Phosphorus 2.6 2.5 - 4.5 03/12 [facility] CHEM PANEL eGFR 101 03/12 Result [...] Calcium Lvl 8.2 8.5 - 10.5 03/12 [facility] 2018 [facility] CHEM PANEL Glucose Lvl 97 70 - 99 03/[address] CHEM PANEL Potassium Lvl 3.3 3.5 - 5.1 03/12 [facility]2018 [facility] CHEM PANEL Chloride Lvl 110 95 - 109 03/12 [facility]2018 [facility] CHEM PANEL AGAP 15.3 10.0 - 03/12 [facility] 20.0 [facility] CHEM PANEL CO2 21 24 - 32 03/[address] CHEM PANEL BUN 5 7 - 22 03/[address] CHEM PANEL Creatinine 0.64 0.50 - 03/12 [place] Lvl 1.40 [facility] CHEM PANEL Sodium Lvl 143 135 - 145 03/[address] CHEM PANEL Magnesium Lvl 1.9 1.8 - 2.4 03/[address] HEMATOLOGY Basophils # 0.1 0.0 - 0.2 03/[address] HEMATOLOGY Eosinophils 3.0 0.0 - 4.0 03/[address] HEMATOLOGY Basophils 1.2 0.0 - 1.0 03/[address] HEMATOLOGY Segs 62.0 45.0 - 03/12 [facility] 75.0 [facility] HEMATOLOGY Lymphocytes # 2.6 1.0 - 5.5 03/[address] HEMATOLOGY Monocytes # 0.4 0.0 - 0.8 03/12 [place] [facility] HEMATOLOGY Lymphocytes 29.6 20.0 - 03/12 40.0 [facility] HEMATOLOGY Monocytes 4.2 2.0 - 12.0 03/12 [facility] HEMATOLOGY Eosinophils # 0.3 0.0 - 0.5 03/12 [facility] HEMATOLOGY Neutrophils # 5.5 1.5 - 8.1 03/12 [facility] HEMATOLOGY RBC 3.64 4.20 - 03/12 [place] 5.40 [facility] HEMATOLOGY Hgb 10.5 12.0 - 03/12 [place] 16.0 [facility] HEMATOLOGY Platelet 194 133 - 450 03/12 [facility] HEMATOLOGY MPV 8.0 7.4 - 10.4 03/12 [facility] HEMATOLOGY RDW 16.7 11.5 - 03/12 14.5 [facility] HEMATOLOGY WBC 8.9 3.7 - 10.4 03/12 [facility] HEMATOLOGY MCH 29.0 27.0 - 03/12 31.0 [facility] HEMATOLOGY MCHC 32.7 32.0 - 03/12 36.0 [facility] HEMATOLOGY MCV 88.4 80.0 - 03/12 98.0 [facility] HEMATOLOGY Hct 32.2 36.0 - 03/12 48.0 [facility] PARATHYROID Ca Ion WB 1.05 1. - 03/12 [facility] PROFILE 09.11 [facility] PARATHYROID Ca Norm WB 1.05 1.05 - 03/12 [facility] PROFILE 09.11 [facility] CHEM PANEL eGFR 83 03/11 [facility] Comment: The Medical eGFR is [...] CHEM PANEL AGAP 11.4 10.0 - 03/11 [facility] 20.0 [facility] CHEM PANEL Calcium Lvl 8.2 8.5 - 10.5 03/11 [facility] as [facility] CHEM PANEL CO2 25 24 - 32 03/11 [facility]2018 [facility] CHEM PANEL Chloride Lvl 110 95 - 109 03/11 [facility] CHEM PANEL Potassium Lvl 3.4 3.5 - 5.1 03/11 [place] [facility] CHEM PANEL Creatinine 0.80 0.50 - 03/11 [facility] Lvl 1.40 [facility] CHEM PANEL Sodium Lvl 143 135 - 145 03/11 [facility]2018 [facility] CHEM PANEL Glucose Lvl 142 70 - 99 03/11 [facility] CHEM PANEL BUN 4 7 - 22 03/11 [facility]2018 [facility] PARATHYROID Ca Norm WB 1.07 1.05 - 03/11 [facility] PROFILE 1. [facility] PARATHYROID Ca Ion WB 1.07 1.05 - 03/11 [facility] . [facility] URINE AND UA WBC 4 0 - 5 03/11 [facility] URINE AND UA Leuk Est Negative Negative 03/11 [facility] (03/11/19 4:57 PM) [facility] URINE AND UA Sq Epi Few /LPF Few /LPF 03/11 [facility] URINE AND UA <1.0 0.1 - 1.0 03/11 [facility] Urobilinogen /2018 [facility] URINE AND UA Nitrite Negative Negative 03/11 [facility] (03/11/19 4:57 PM) [facility] URINE AND UA Bili Negative Negative 03/11 [facility] STOOL *NA* /2018 [facility] (03/11/19 4:57 PM) [place] URINE AND UA Blood Negative Negative 03/11 [facility] (03/11/19 4:57 PM) [facility] URINE AND UA Ketones Trace Negative 03/11 [facility] mg/dL mg/dL [facility] URINE AND UA Mucus Few /LPF None Seen 03/11 [facility] STOOL /LPF [facility] URINE AND UA RBC 1 0 - 2 03/11 [facility] URINE AND UA Bacteria Few /HPF None Seen 03/11 [facility] ST[facility]OL /HPF [facility] URINE AND UA Color Yellow Yellow 03/11 [facility] *NA* [facility] (03/11/19 4:57 PM) [place] URINE AND UA Turbidity Slight Clear 03/11 [facility] *ABN* [facility] (03/11/19 4:57 PM) [place] URINE AND UA Spec Grav 1.016 <=1.030 03/11 [facility] URINE AND UA Protein 30 mg/dL Negative 03/11 [facility] mg/dL [facility] URINE AND UA pH 8.0 5.0 - 8.0 03/11 [facility] URINE AND UA Glucose Negative Negative 03/11 [facility] mg/dL mg/dL [facility] URINE CHEM U Potassium 7.4 03/11 [facility] URINE CHEM U Chloride 125 03/11 [facility] URINE CHEM U Sodium 192 03/11 [facility] URINE CHEM U Osmolality 528 300 - 800 03/11 [place] as [facility] URINE CHEM U Preg Negative Negative 03/11 [facility] (03/11/19 4:57 PM) [facility] CHEM PANEL eGFR 109 03/11 [facility] Comment: The Medical eGFR is [...] Lvl 2.9 3.5 - 5.1 03/11 Result [facility] Comment: Medical Critical Center Result(s) called to Alaina Rosa at 03/11/2019 06:03 by . Read back OK. CHEM PANEL Sodium Lvl 140 135 - 145 03/11 [facility] CHEM PANEL Creatinine 0.51 0.50 - 03/11 [place] Lvl 1.40 [facility] CHEM PANEL BUN 4 7 - 22 03/11 [facility] CHEM PANEL Glucose Lvl 79 70 - 99 03/11 [facility] CHEM PANEL Calcium Lvl 7.6 8.5 - 10.5 03/11 [facility] CHEM PANEL AGAP 9.9 10.0 - 03/11 20. [facility] CHEM PANEL CO2 27 24 - 32 03/11 [facility] CHEM PANEL Chloride Lvl 106 95 - 109 03/11 [facility] CHEM PANEL Phosphorus 3.7 2.5 - 4.5 03/11 [facility] CHEM PANEL Magnesium Lvl 2.0 1.8 - 2.4 03/11 [facility] HEMATOLOGY MPV 8.1 7.4 - 10.4 03/11 [facility] HEMATOLOGY Platelet 163 133 - 450 03/11 [facility] HEMATOLOGY RDW 16.6 11.5 - 03/11 14.5 [facility] HEMATOLOGY MCH 29.0 27.0 - 03/11 31.0 [facility] HEMATOLOGY MCHC 33.0 32.0 - 03/11 36.0 [facility] HEMATOLOGY RBC 3.64 4.20 - 03/11 5.40 [facility] HEMATOLOGY Hgb 10.6 12.0 - 03/11 16.0 [facility] HEMATOLOGY WBC 9.3 3.7 - 10.4 03/11 [facility] HEMATOLOGY MCV 87.8 80.0 - 03/11 [place] 98.0 [facility] HEMATOLOGY Hct 32.0 36.0 - 03/11 [place] 48.0 [facility] HEMATOLOGY Eosinophils 4.0 0.0 - 4.0 03/11 [facility] s [facility] HEMATOLOGY Segs 62.5 45.0 - 03/11 [place] 75.0 2019 [facility] HEMATOLOGY Lymphocytes 27.8 20.0 - 03/11 [place] 40.0 [facility] HEMATOLOGY Monocytes 4.5 2.0 - 12.0 03/[address] HEMATOLOGY Neutrophils # 5.8 1.5 - 8.1 03/11 [facility]2018 [facility] HEMATOLOGY Lymphocytes # 2.6 1.0 - 5.5 03/11 [facility]2018 [facility] HEMATOLOGY Monocytes # 0.4 0.0 - 0.8 03/11 [facility]2018 [facility] HEMATOLOGY Eosinophils # 0.4 0.0 - 0.5 03/11 [facility]2018 [facility] HEMATOLOGY Basophils 1.2 0.0 - 1.0 03/[address] HEMATOLOGY Basophils # 0.1 0.0 - 0.2 03/11 [facility]2018 [facility] PARATHYROID Ca Ion WB 0.91 1.05 - 03/11 [facility] PROFILE 1. [facility] PARATHYROID Ca Norm WB 0.96 1.05 - 03/11 [facility] PROFILE 1. [facility] HEMATOLOGY Eosinophils # 0.3 0.0 - 0.5 03/10 [facility]2018 [facility] HEMATOLOGY Monocytes # 0.4 0.0 - 0.8 03/10 [facility]2018 [facility] HEMATOLOGY Lymphocytes # 2.8 1.0 - 5.5 03/10 [facility]2018 [facility] HEMATOLOGY Basophils # 0.1 0.0 - 0.2 03/10 [facility] HEMATOLOGY Segs 61.6 45.0 - 03/10 [place] 75.0 2019 [facility] HEMATOLOGY Lymphocytes 29.1 20.0 - 03/10 [facility] 40.0 2019 [facility] HEMATOLOGY Basophils 1.2 0.0 - 1.0 03/[address] HEMATOLOGY Monocytes 4.5 2.0 - 12.0 03/[address] HEMATOLOGY Neutrophils # 5.8 1.5 - 8.1 03/[address] HEMATOLOGY Eosinophils 3.6 0.0 - 4.0 03/10 [facility]2018 [facility] HEMATOLOGY MPV 7.9 7.4 - 10.4 03/10 [facility] HEMATOLOGY Hct 34.6 36.0 - 03/10 [place] 48.0 [facility] HEMATOLOGY MCH 28.6 27.0 - 03/10 [place] 31.0 [facility] HEMATOLOGY MCV 88.5 80.0 - 03/10 [place] 98.0 [facility] HEMATOLOGY Platelet 162 133 - 450 03/10 [facility] HEMATOLOGY RDW 16.7 11.5 - 03/10 [place] 14.5 [facility] HEMATOLOGY MCHC 32.3 32.0 - 03/10 [place] 36.0 [facility] HEMATOLOGY Hgb 11.2 12.0 - 03/10 [place] 16.0 [facility] HEMATOLOGY RBC 3.91 4.20 - 03/10 [place] 5.40 [facility] HEMATOLOGY WBC 9.5 3.7 - 10.4 03/10 [facility] HEMATOLOGY INR 1.06 0.85 - 03/10 [place] 1.17 [facility] HEMATOLOGY PT 13.6 12.0 - 03/10 [place] 14.7 [facility] HEMATOLOGY PTT 36.3 22.9 - 03/10 [place] 35.8 [facility] CARDIAC Troponin-I 0.30 0.00 - 03/10 [facility] ENZYMES 0.40 [facility] CHEM PANEL Phosphorus 1.6 2.5 - 4.5 03/10 [facility] CHEM PANEL Magnesium Lvl 2.1 1.8 - 2.4 03/10 [place] [facility] LIPIDS VLDL 39 03/10 [facility] LIPIDS LDL 36 <=99 mg/dL 03/10 [facility] (Calculated) [facility] LIPIDS HDL 28 >=61 mg/dL 03/10 [facility] LIPIDS Trig 195 <=149 03/10 [facility] mg/dL [facility] LIPIDS Chol 103 <=199 03/10 [facility] mg/dL [facility] LIPIDS CHD Risk 3.68 3.90 - 03/10 [place] 5.80 [facility] SPECIAL Hgb A1C 4.8 <=5.6 % 03/10 [facility] CHEMISTRY [facility] ANEMIA Vitamin B12 267 254 - 1320 03/10 [place] STUDY Lvl /2018 [facility] ANEMIA Folate Lvl 4.4 >=3.0 03/10 [place] STUDY ng/mL /2018 [facility] CARDIAC BNP 10 <=100 03/10 [facility] ENZYMES pg/mL [facility] CHEM PANEL Osmolality 294 280 - 300 03/10 [facility] HEMATOLOGY PTT 42.4 22.9 - 03/10 [place] 35.8 [facility] HEMATOLOGY PT 13.5 12.0 - 03/10 [place] 14.7 [facility] HEMATOLOGY INR 1.05 0.85 - 03/10 [place] . [facility] CARDIAC Troponin-I 0.48 0.00 - 03/10 [facility] ENZYMES 0.40 [facility] CARDIAC Troponin-I 0.50 0.00 - 03/09 Result [facility] ENZYMES 0.40 Comment: Medical Critical Center Result(s) called to Dr. Ezekiel Tran at 03/09/2019 18:01 by AC. Read back OK. CARDIAC Total CK 63 12 - 191 03/09 [facility] ENZYMES [facility] CHEM PANEL Lactic Acid 1.2 0.5 - 2.2 03/09 [place] [facility] HEMATOLOGY PTT 31.7 22.9 - 03/09 [place] 35.8 [facility] HEMATOLOGY INR 1.07 0.85 - 03/09 [place] 09.03 [facility] HEMATOLOGY PT 13.7 12.0 - 03/09 [place] 14 [facility] CHEM PANEL Phosphorus 3.5 2.5 - 4.5 03/22 [facility] CHEM PANEL Magnesium Lvl 1.8 1.8 - 2.4 03/22 [place] [facility] ELECTROLYTE CO2 22 24 - 32 03/22 [place] S [facility] Center ELECTROLYTE Calcium Lvl 8.9 8.5 - 10.5 03/22 [facility] [place] [facility] ELECTROLYTE AGAP 14.6 10.0 - 03/22 [place] S 20.0 [facility] ELECTROLYTE Chloride Lvl 110 95 - 109 03/22 [place] as S [facility] Center ELECTROLYTE Potassium Lvl 3.6 3.5 - 5.1 03/22 [place] [facility] ELECTROLYTE Creatinine 0.9 0.5 - 1.4 03/22 [place] /2014 [facility] ELECTROLYTE Sodium Lvl 143 135 - 145 03/22 [place] [facility] ELECTROLYTE Glucose Lvl 81 70 - 99 03/22 [facility] ELECTROLYTE BUN 10 7 - 22 03/22 [facility] ELECTROLYTE eGFR 75 03/22 [facility] Comment: The Medical eGFR is Center calculated [...] HEMATOLOGY MPV 7.5 7.4 - 10.4 08 [facility] HEMATOLOGY Platelet 224 133 - 450 03/22 [facility] HEMATOLOGY WBC 11.7 3.7 - 10.4 03/22 [facility] HEMATOLOGY Hct 32.6 36.0 - 03/22 [place] 48.0 /2014 [facility] HEMATOLOGY MCV 84.1 80.0 - 03/22 98.0 /2014 [facility] HEMATOLOGY RBC 3.87 4.20 - 03/22 [place] 5.40 /2014 [facility] HEMATOLOGY Hgb 10.4 12.0 - 03/22 [place] 16.0 /2014 [facility] HEMATOLOGY MCHC 31.9 32.0 - 08 [place] 36.0 [facility] HEMATOLOGY MCH 26.8 27.0 - 08 [place] 31.0 [facility] HEMATOLOGY RDW 17.6 11.5 - 08 [place] 14.5 [facility] HEMATOLOGY Eosinophils 1.0 0.0 - 4.0 03/22 a [facility] HEMATOLOGY Monocytes 7.4 2.0 - 12.0 03/22 [facility] HEMATOLOGY Lymphocytes 38.6 20.0 - 08 [place] 40.0 /2014 [facility] HEMATOLOGY Segs 52.0 45.0 - 08 [place] 75.0 /2014 [facility] HEMATOLOGY Basophils 1.0 0.0 - 1.0 03/22 [facility] HEMATOLOGY Segs-Bands # 6.1 1.5 - 8.1 08 [facility] HEMATOLOGY Basophils # 0.1 0.0 - 0.2 03/22 [facility] HEMATOLOGY Monocytes # 0.9 0.0 - 0.8 03/22 [facility] HEMATOLOGY Eosinophils # 0.1 0.0 - 0.5 03/22 [facility] HEMATOLOGY Lymphocytes # 4.5 1.0 - 5.5 03/22 [facility] IMMUNOLOGY Alpha 1 % 5.0 2.8 - 4.9 03/21 [facility] IMMUNOLOGY Gamma % 14.5 11.1 - 03/21 18.7 /2014 [facility] IMMUNOLOGY Alpha 2 % 16.2 7.0 - 11.9 03/21 [facility] IMMUNOLOGY Beta % 15.1 7.8 - 13.7 03/21 [facility] IMMUNOLOGY Albumin % 49.2 55.8 - 08 66.1 /2014 [facility] IMMUNOLOGY Alpha 1 Glob 0.34 0.18 - 03/21 [place] 0.41 /2014 [facility] IMMUNOLOGY Tot Prot 6.8 6.4 - 8.4 03/21 (SPE) [facility] IMMUNOLOGY SPE Interp Total 03/21 [facility] protein Medical within the Center reference [...] with the resident&a pos;s interpreta tion. CPT 22843-HC IMMUNOLOGY Albumin (SPE) 3.35 3.57 - 08 [place] 5.[place] /2014 [facility] IMMUNOLOGY Gamma Glob 0.99 0.71 - 08 [facility] 1.57 [facility] IMMUNOLOGY Alpha 2 Glob 1.10 0.45 - 08 1.00 [facility] IMMUNOLOGY Beta Glob 1.03 0.50 - 03/21 1.15 [facility] CHEM PANEL eGFR 101 03/21 Result [...] Calcium Lvl 9.1 8.5 - 10.5 03/21 [facility] CHEM PANEL Potassium Lvl 3.8 3.5 - 5.1 03/21 [facility] CHEM PANEL CO2 21 24 - 32 03/21 [facility] CHEM PANEL Chloride Lvl 110 95 - 109 03/21 [facility] CHEM PANEL BUN 11 7 - 22 03/21 [facility] CHEM PANEL Sodium Lvl 142 135 - 145 03/21 [facility] CHEM PANEL Glucose Lvl 83 70 - 99 03/21 [facility] CHEM PANEL Creatinine 0.7 0.5 - 1.4 03/21 [facility] CHEM PANEL AGAP 14.8 10.0 - 08 20.0 [facility] CHEM PANEL Magnesium Lvl 1.8 1.8 - 2.4 03/21 [facility] CHEM PANEL Phosphorus 4.1 2.5 - 4.5 03/21 [facility] HEMATOLOGY Eosinophils # 0.1 0.0 - 0.5 08/ [facility] HEMATOLOGY Monocytes # 0.7 0.0 - 0.8 08/ [facility] HEMATOLOGY Basophils 1.0 0.0 - 1.0 08/ [facility] HEMATOLOGY Eosinophils 1.2 0.0 - 4.0 08/ [facility] HEMATOLOGY Lymphocytes # 3.7 1.0 - 5.5 03/21 [facility] HEMATOLOGY Segs-Bands # 5.4 1.5 - 8.1 03/21 [facility] HEMATOLOGY Monocytes 6.9 2.0 - 12.0 / [facility] HEMATOLOGY Basophils # 0.1 0.0 - 0.2 03/21 [facility] HEMATOLOGY Segs 54.0 45.0 - 03/21 75.0 [facility] HEMATOLOGY Lymphocytes 36.9 20.0 - 08 40.0 [facility] HEMATOLOGY Hct 32.9 36.0 - 08 48.0 [facility] HEMATOLOGY Hgb 10.8 12.0 - 08 16.0 [facility] HEMATOLOGY RBC 3.91 4.20 - 08 [place] 5.40 /2014 [facility] HEMATOLOGY WBC 10.0 3.7 - 10.4 03/21 [facility] HEMATOLOGY MCHC 32.9 32.0 - 08/ 36.0 /2014 [facility] HEMATOLOGY RDW 17.2 11.5 - 08 14.5 [facility] HEMATOLOGY MCH 27.7 27.0 - 08 31.0 [facility] HEMATOLOGY MCV 84.2 80.0 - 08 98.0 [facility] HEMATOLOGY MPV 7.5 7.4 - 10.4 03/21 [facility] HEMATOLOGY Platelet 251 133 - 450 03/21 [facility] IMMUNOLOGY IgG Lvl CSF 6.4 2.0 - 4.0 03/21 [facility] CHEM PANEL eGFR 101 08/ Result [...] Sodium Lvl 141 135 - 145 03/20 [facility] CHEM PANEL Glucose Lvl 71 70 - 99 03/20 [facility] CHEM PANEL BUN 7 7 - 22 03/20 [facility] CHEM PANEL Creatinine 0.7 0.5 - 1.4 03/20 [facility] CHEM PANEL Potassium Lvl 3.9 3.5 - 5.1 03/20 [facility] CHEM PANEL Calcium Lvl 9.2 8.5 - 10.5 03/20 [facility] CHEM PANEL Chloride Lvl 108 95 - 109 03/20 [facility] CHEM PANEL CO2 23 24 - 32 03/20 [facility] CHEM PANEL AGAP 13.9 10.0 - 03/20 20.0 [facility] CHEM PANEL Magnesium Lvl 1.9 1.8 - 2.4 03/20 [facility] CHEM PANEL Phosphorus 3.6 2.5 - 4.5 03/20 [facility] HEMATOLOGY MCHC 33.2 32.0 - 08 [place] 36.0 [facility] HEMATOLOGY Platelet 285 133 - 450 03/20 [facility] HEMATOLOGY RDW 17.2 11.5 - 03/20 14.5 [facility] HEMATOLOGY RBC 4.07 4.20 - 03/20 [place] 5.40 /2014 [facility] HEMATOLOGY WBC 9.6 3.7 - 10.4 03/20 [facility] HEMATOLOGY Hgb 11.2 12.0 - 03/20 16.0 /2014 [facility] HEMATOLOGY Hct 33.6 36.0 - 03/20 48.0 /2014 [facility] HEMATOLOGY MCV 82.6 80.0 - 03/20 98.0 [facility] HEMATOLOGY MCH 27.4 27.0 - 03/20 31.0 /2014 [facility] HEMATOLOGY MPV 7.7 7.4 - 10.4 03/20 [facility] HEMATOLOGY Segs 55.3 45.0 - 03/20 [place] 75.0 /2014 [facility] HEMATOLOGY Basophils 1.9 0.0 - 1.0 03/20 [facility] HEMATOLOGY Lymphocytes 35.6 20.0 - 03/20 40.0 [facility] HEMATOLOGY Monocytes 6.2 2.0 - 12.0 03/20 [facility] HEMATOLOGY Eosinophils 1.0 0.0 - 4.0 03/20 [facility] HEMATOLOGY Segs-Bands # 5.3 1.5 - 8.1 03/20 [facility] HEMATOLOGY Lymphocytes # 3.4 1.0 - 5.5 03/20 [facility] HEMATOLOGY Monocytes # 0.6 0.0 - 0.8 03/20 [facility] HEMATOLOGY Eosinophils # 0.1 0.0 - 0.5 03/20 [facility] HEMATOLOGY Basophils # 0.2 0.0 - 0.2 03/20 [facility] IMMUNOLOGY IgG Lvl 971 344 - 4288 03/20 [facility] HEMATOLOGY dRVV Ratio 0.91 <=1.20 03/19 [facility] HEMATOLOGY Hex Phos N Negative Negative 03/19 [facility] (03/19/15 11:56 AM) /2014 [facility] [place] HEM[facility] Lup Interp Negative 03/19 [facility] for lupus [facility] ant with all tests performed (dRVVT, and hexagonal phospholip id neutraliza tion). CPT: 34485 IMMUNOLOGY Treponemal Non Reactive Non 03/19 [facility] xa Scr *NA* Reactive /2014 [facility] (03/19/15 11:56 AM) Center IMMUNOLOGY HIV 1/2 Ab Negative Negative 03/18 [facility] *NA* /2014 Medical (03/18/15 4:44 PM) Center VIRAL - W Nile Ab IgM <0.90 03/18 Result [facility] SEROLOGY Comment: Medical REFERENCE Center RANGE: [...] by other flavivirus infections
(e.g. Dengue virus, Chamberino encephalitis virus)
ma y show cross-reactiv ity with WNV.
Test Performed at:
[employer]
[address] [facility]
[place] [address] Paige Gant MD CARDIAC Troponin-I <0.02 0.00 - 03/18 [facility] ENZYMES 0.40 /2014 [facility] HEMATOLOGY PT 14.5 12.0 - 03/17 [facility] 14.7 /2015 [facility] HEMATOLOGY INR 1.12 0.85 - 03/17 [place] 1.17 /2014 [facility] HEMATOLOGY PTT 31.2 22.9 - 03/17 [facility] 35.8 /2015 [facility] CARDIAC Troponin-I <0.02 0.00 - 03/17 [facility] ENZYMES 0.40 /2014 [facility] CHEM PANEL Ammonia 71.0 <=45.0 03/17 [facility] uMol/L /2014 [facility] BODY FLUIDS Glucose CSF 42 45 - 80 03/17 [facility] [facility] BODY FLUIDS Monocyte [place] 9 15 - 45 03[place] [facility] BODY FLUIDS Eos CSF 1 03/17 [facility] BODY FLUIDS Lymph CSF 90 40 - 80 03/17 Result Comment: This Medical differential Center demonstrates an increase in lymphocytes with a low RBC counts. Called savannah holcomb_by_sam. Read back OK. BODY FLUIDS Clarity CSF Clear Clear 03/17 [place] (03/17/15 11:15 AM) /2014 [facility] Center BODY FLUIDS Color CSF Colorless Colorless 03/17 [place] (03/17/15 11:15 AM) /2014 [facility] Center BODY FLUIDS Tube Num CSF 3 03/17 [place] [facility] Center BODY FLUIDS Supernat CSF Colorless Colorless 03/17 (03/17/15 11:15 AM) [facility] Center BODY FLUIDS RBC CSF 3 0 - 03 03/17 [facility] Center BODY FLUIDS WBC CSF 140 0 - 53 03/17 [facility] Center BODY FLUIDS Protein CSF 71 15 - 45 03/17 Result Comment: Medical "Significant Center Findings called lj _Sonny Waters_at _03/17/2015 16:03_by _AAC_.Read Back OK." IMMUNOLOGY L-hnwfyj-K-As < 1:1 < 1:1 03/17 [place] part[place] Rcptr Comment: Medical Ab CSF INTERPRETIVE Center INFORMATION: R-mrivxq-G-As partate
Receptor Ab, CSF
Anti- NMDA receptor [...]
Test developed and characteristi cs determined by [facility]. See Compliance Statement B: [email or web address] S
Perform ed by [facility],
[address], [place] [address]
[email or web address], Horacio Stinson MD - Lab. portable track line marker VZV PCR NOT 03/17 Result [facility] Comment: Medical REFERENCE Center RANGE: NOT DETECTED

This test was developed and its performance<b r/>characteri stics have been determined by [facility]. Performance characteristi cs refer to
the analytical performance of the test.

This test is performed pursuant to a license
a greement with [employer]
Test Performed at:
[employer]
[address] [facility]
[place] [address] Paige Gant MD IMMUNOLOGY Source CSF 03/17 [place] /2014 [facility] IMMUNOLOGY VDRL Scr CSF Non Reactive Non 03/17 [place] (03/17/15 11:15 AM) Reactive /2014 [facility] MOLECULAR HSV 2 by PCR Negative [...] curve analysis. MOLECULAR Source HSV Cerebral 03/17 [facility] DIAGNOSTIC Spinal /2014 [facility] VIRAL - Enterovirus Negative Negative 03/17 [facility] SEROLOGY PCR CSF (03/17/15 11:15 AM) /2014 [facility] BACTERIAL - MRSA by PCR Negative 03/17 [place] SEROLOGY (03/17/15 7:34 AM) /2014 [facility] CHEM PANEL Procalcitonin <0.05 0.00 - 03/17 [place] L[place] ng/mL 0.10 /2014 [facility] TOXICOLOGY Valproic Acid 115 50 - 100 03/17 [place] Lvl /2014 [facility] BLOOD BANK Antibody Scrn Negative 03/17 [place] RESULTS (03/16/15 9:18 PM) /2014 [facility] BLOOD BANK ABO/Rh O POS 03/17 [place] RESULTS /2014 [facility] CHEM PANEL A/G Ratio 0.7 0.7 - 1.6 03/17 [facility] CHEM PANEL B/C Ratio 12 6 - 25 03/17 2014 [facility] CHEM PANEL Globulin 3.9 2.0 - 4.0 03/17 [facility] CHEM PANEL AST 5 0 - 37 03/17 2014 [facility] CHEM PANEL Alk Phos 110 39 - 136 03/17 [facility] CHEM PANEL Bili Total 0.2 0.2 - 1.3 03/17 [facility] CHEM PANEL ALT 19 0 - 65 03/17 [facility] CHEM PANEL Total Protein 6.8 6.4 - 8.4 03/17 [facility] xa [facility] CHEM PANEL Albumin Lvl 2.9 3.5 - 5.0 03/17 [place] [facility] DRUG SCREEN UDS Note See Note [...] PM) Center HEMATOLOGY PTT 29.7 22.9 - 03/17 [place] 35.8 /2014 [facility] PARATHYROID Ca Ion WB 1.15 1.05 - 03/17 [place] PROFILE 1.25 [facility] PARATHYROID Ca Norm WB 1.12 1.05 - 03/17 [facility] PROFILE 1. [facility] URINE AND UA Bili Negative Negative 03/17 [facility] STOOL *NA* /2014 [facility] (03/16/15 9:18 PM) [place] URINE AND UA Ketones Negative Negative 03/17 [facility] mg/dL mg/dL /2014 [facility] URINE AND UA Nitrite Negative Negative 03/17 [facility] (03/16/15 9:18 PM) /2014 [facility] URINE AND UA Leuk Est Negative Negative 03/17 [facility] (03/16/15 9:18 PM) /2014 [facility] URINE AND UA Blood Negative Negative 03/17 [facility] (03/16/15 9:18 PM) /2014 [facility] URINE AND UA Mucus Few /LPF None Seen 03/17 [facility] /LPF /2014 [facility] URINE AND UA Sq Epi Occasional Few /LPF 03/17 [facility] /LPF /2014 [facility] URINE AND UA RBC <1 0 - 2 03/17 [facility] /2014 [facility] URINE AND UA <=1.0 0.1 - 1.0 03/17 [facility] Urobilinogen mg/dL /2014 [facility] URINE AND UA Glucose Negative Negative 03/17 [facility] mg/dL mg/dL /2014 [facility] URINE AND UA pH 7.0 5.0 - 8.0 03/17 [facility] /2014 [facility] URINE AND UA Protein Negative Negative 03/17 [facility] mg/dL mg/dL /2014 [facility] URINE AND UA Turbidity Clear Clear 03/17 [facility] (03/16/15 9:18 PM) /2014 [facility] URINE AND UA Spec Grav 1.009 <=1.030 03/17 [facility] /2014 [facility] URINE AND UA Color Light Yellow Yellow 03/17 [facility] STOOL *NA* /2014 Medical (03/16/15 9:18 PM) [place] HEMATOLOGY PTT 36.1 22.9 - 03/16 <sup>20</sup> [facility] s 35.8 /2014 Interpretive Medical Data: Heparin Center Therapeutic Range: 57 - 92 Seconds HEMATOLOGY PT 14.6 12.0 - 10/31 [facility] 14.7 /2014 [facility] HEMATOLOGY INR 1.13 0.85 - 10/31 <sup>16</sup> [place] 1.17 Interpretive Medical Data: Center RECOMMENDED RANGES FOR PROTIME INR:
2.0-3.0 for most medical and surgical thromboemboli c states.
2.5-3.5 for artificial heart valves and recurrent embolism.<br/ >
INR SHOULD BE USED ONLY FOR PATIENTS ON STABLE ANTICOAGULANT THERAPY. TOXICOLOGY Vanco Tr TND 0830 10/31 [facility] TOXICOLOGY Vanco Tr 25.2 10/31 <sup>9</sup>I [facility] nterpretive Medical Data: [place] Therapeutic Range:
Trough: 10 - 20 ug/mL
Peak: 20 - 40 ug/mL
Potential Toxicity: >80 ug/mL CHEM PANEL Phosphorus 3.1 2.5 - 4.5 10/31 [facility] CHEM PANEL Magnesium Lvl 1.8 1.8 - 2.4 10/[place] [facility] ELECTROLYTE AGAP 14.1 10.0 - 10/31 [facility] S 20.0 [facility] ELECTROLYTE eGFR 107 10/31 <sup>1</sup>R [facility] Comment: The [place] eGFR is calculated using the CKD-EPI formula. [...] 142 135 - 145 10/31 [place] [facility] ELECTROLYTE Chloride Lvl 107 95 - 109 10/31 [place] [facility] ELECTROLYTE Potassium Lvl 4.1 3.5 - 5.1 10/31 [place] [facility] ELECTROLYTE Calcium Lvl 8.5 8.5 - 10.5 10/31 [facility] xa [facility] ELECTROLYTE CO2 25 24 - 32 10/31 [facility] ELECTROLYTE Creatinine 0.6 0.5 - 1.4 10/31 [place] L[place] [facility] ELECTROLYTE Glucose Lvl 62 70 - 99 10/31 <sup>4</sup>I nterpretive Medical Data: Adult Center reference range values reflect the clinical guidelines
of the [place] [employer]. ELECTROLYTE BUN 6 7 - 22 10/31 [facility] HEMATOLOGY Basophils # 0.1 0.0 - 0.2 10/31 [facility] HEMATOLOGY Segs-Bands # 5.7 1.5 - 8.1 10/31 [facility] HEMATOLOGY Eosinophils 5.0 0.0 - 4.0 10/31 [facility] HEMATOLOGY Lymphocytes 31.1 20.0 - 10/31 [place] 40.0 [facility] HEMATOLOGY Monocytes 5.7 2.0 - 12.0 10/31 [facility] HEMATOLOGY Segs 57.7 45.0 - 10/31 [place] 75.0 [facility] HEMATOLOGY Basophils 0.5 0.0 - 1.0 10/31 [facility] HEMATOLOGY Monocytes # 0.6 0.0 - 0.8 10/31 [facility] HEMATOLOGY Eosinophils # 0.5 0.0 - 0.5 10/31 [facility] HEMATOLOGY Lymphocytes # 3.1 1.0 - 5.5 10/31 [facility] HEMATOLOGY INR 1.08 0.85 - 10/31 <sup>17</sup> [facility]. Interpretive Medical Data: Center RECOMMENDED RANGES FOR PROTIME INR:
2.0-3.0 for most medical and surgical thromboemboli c states.
2.5-3.5 for artificial heart valves and recurrent embolism.<br/ >
INR SHOULD BE USED ONLY FOR PATIENTS ON STABLE ANTICOAGULANT THERAPY. HEMATOLOGY PTT 33.9 22.9 - 03 <sup>21</sup> [place] 35.8 /2014 Interpretive Medical Data: [facility] Therapeutic Range: 57 - 92 Seconds HEMATOLOGY PT 14.1 12.0 - 10/31 [place] 14.7 /2014 [facility] HEMATOLOGY WBC 10.0 3.7 - 10.4 10/31 /2014 [facility] HEMATOLOGY RBC 3.22 4.20 - 10/31 [place] 5.40 /2014 [facility] HEMATOLOGY Hct 28.9 36.0 - 10/31 [place] 48.0 /2014 [facility] HEMATOLOGY Hgb 9.7 12.0 - 03 [place] 16.0 /2014 [facility] HEMATOLOGY MCHC 33.4 32.0 - 10/31 [place] 36.0 /2014 [facility] HEMATOLOGY MCH 30.0 27.0 - 10/31 [place] 31.0 /2014 [facility] HEMATOLOGY MCV 89.8 80.0 - 10/31 [place] 98.0 /2014 [facility] HEMATOLOGY MPV 8.2 7.4 - 10.4 10/31 /2014 [facility] HEMATOLOGY Platelet 174 133 - 450 10/31 /2014 [facility] HEMATOLOGY RDW 16.4 11.5 - 03 [place] 14.5 /2014 [facility] PARATHYROID Ca Ion WB 1.08 1.05 - 10/31 [place] PROFILE 1.25 /2014 [facility] PARATHYROID Ca Norm WB 1.05 1.05 - 10/31 [place] PROFILE 1.25 [facility] CARDIAC Total CK 70 12 - 191 10/30 [place] ENZYMES /2014 [facility] CHEM PANEL Phosphorus 3.2 2.5 - 4.5 10/30 [place] /2014 [facility] CHEM PANEL Magnesium Lvl 1.8 1.8 - 2.4 10/30 [place] [facility] ELECTROLYTE AGAP 10.6 10.0 - 10/30 [place] S 20.0 [facility] ELECTROLYTE Glucose Lvl 79 70 - 99 10/30 <sup>5</sup>I S /2014 nterpretive Medical Data: Adult Center reference range values reflect the clinical guidelines
of the [place] [employer]. ELECTROLYTE BUN 8 7 - 22 10/30 [facility] ELECTROLYTE Creatinine 0.6 0.5 - 1.4 10/30 [place] [facility] ELECTROLYTE CO2 27 24 - 32 10/30 [facility] ELECTROLYTE Calcium Lvl 8.1 8.5 - 10.5 10/30 [place] [facility] ELECTROLYTE Potassium Lvl 3.6 3.5 - 5.1 10/30 [place] [facility] ELECTROLYTE Chloride Lvl 109 95 - 109 10/30 [place] [facility] ELECTROLYTE Sodium Lvl 143 135 - 145 10/30 [place] [facility] ELECTROLYTE eGFR 107 10/30 <sup>2</sup>R [facility] Comment: The Center eGFR is calculated using [...] # 0.4 0.0 - 0.5 10/30 [place] [facility] HEMATOLOGY Lymphocytes # 4.9 1.0 - 5.5 10/30 [facility] HEMATOLOGY Monocytes # 0.6 0.0 - 0.8 10/30 [facility] HEMATOLOGY Segs 49.4 45.0 - 10/30 [place] 75.0 [facility] HEMATOLOGY Segs-Bands # 5.8 1.5 - 8.1 10/30 [facility] HEMATOLOGY Eosinophils 3.7 0.0 - 4.0 10/30 [facility] HEMATOLOGY Lymphocytes 41.4 20.0 - 10/30 [place] 40.0 /2014 [facility] HEMATOLOGY Basophils 0.4 0.0 - 1.0 10/30 [facility] HEMATOLOGY Monocytes 5.1 2.0 - 12.0 10/30 /2014 [facility] HEMATOLOGY MCH 29.4 27.0 - 10/30 [place] 31.0 /2014 [facility] HEMATOLOGY Hct 27.5 36.0 - 10/30 [place] 48.0 /2014 [facility] HEMATOLOGY RDW 16.3 11.5 - 10/30 [place] 14.5 /2014 [facility] HEMATOLOGY Platelet 137 133 - 450 10/30 [facility] HEMATOLOGY MPV 8.4 7.4 - 10.4 10/30 [facility] HEMATOLOGY Hgb 9.1 12.0 - 10/30 [place] 16.0 /2014 [facility] HEMATOLOGY MCHC 33.0 32.0 - 10/30 [place] 36.0 /2014 [facility] HEMATOLOGY RBC 3.09 4.20 - 10/30 [place] 5.40 /2014 [facility] HEMATOLOGY WBC 11.8 3.7 - 10.4 10/30 [facility] HEMATOLOGY MCV 89.0 80.0 - 10/30 [place] 98.0 /2014 [facility] HEMATOLOGY PT 13.5 12.0 - 10/30 [place] 14.7 /2014 [facility] HEMATOLOGY INR 1.03 0.85 - 10/30 <sup>18</sup> [place] 1.17 Interpretive Medical Data: Center RECOMMENDED RANGES FOR PROTIME INR:
2.0-3.0 for most medical and surgical thromboemboli c states.
2.5-3.5 for artificial heart valves and recurrent embolism.<br/ >
INR SHOULD BE USED ONLY FOR PATIENTS ON STABLE ANTICOAGULANT THERAPY. HEMATOLOGY PTT 31.6 22.9 - 10/30 <sup>22</sup> [place] 35.8 /2014 Interpretive Medical Data: Heparin Center Therapeutic Range: 57 - 92 Seconds PARATHYROID Ca Norm WB 1.10 1.05 - 10/30 [facility] PROFILE 1. [facility] PARATHYROID Ca Ion WB 1.11 1.05 - 10/30 [facility] PROFILE . [facility] CARDIAC Total CK 49 12 - 191 10/30 [facility] ENZYMES [facility] CARDIAC Troponin-T <0.010 0.000 - 10/30 [place] ENZYMES 0.100 /2014 [facility] CARDIAC Troponin-I 0.02 0.00 - 10/30 [place] ENZYMES 0.40 /2014 [facility] HEMATOLOGY Eosinophils # 0.2 0.0 - 0.5 10/30 [place] [facility] HEMATOLOGY Monocytes # 0.3 0.0 - 0.8 10/30 [place] [facility] HEMATOLOGY Basophils 0.4 0.0 - 1.0 10/30 [facility] HEMATOLOGY Segs-Bands # 3.2 1.5 - 8.1 10/30 [facility] HEMATOLOGY Lymphocytes # 2.3 1.0 - 5.5 10/30 [place] [facility] HEMATOLOGY Monocytes 4.8 2.0 - 12.0 10/30 [facility] HEMATOLOGY Eosinophils 3.1 0.0 - 4.0 10/30 [place] [facility] HEMATOLOGY Segs 53.2 45.0 - 10/30 [place] 75.0 /2014 [facility] HEMATOLOGY Lymphocytes 38.5 20.0 - 10/30 [place] 40.0 /2014 [facility] HEMATOLOGY Hct 14.9 36.0 - 10/30 <sup>15</sup> [place] 48.0 /2014 Result Medical Comment: Center Critical Result(s) called to Cadence Solano at 10/30/2014 01:18 byJw. Read back OK. HEMATOLOGY MCHC 32.8 32.0 - 10/30 [place] 36.0 /2014 [facility] HEMATOLOGY MCH 30.3 27.0 - 10/30 [place] 31.0 /2014 [facility] HEMATOLOGY MCV 92.2 80.0 - 10/30 [place] 98.0 /2015 [facility] HEMATOLOGY RDW 16.3 11.5 - 10/30 [place] 14.5 /2014 [facility] HEMATOLOGY Hgb 4.9 12.0 - 10/30 <sup>14</sup> [place] 16.0 /2014 Result Medical Comment: Center Critical Result(s) called to Cadence Solano at 10/30/2014 01:18 byJw. Read back OK. HEMATOLOGY RBC 1.61 4.20 - 10/30 [place] 5.40 /2014 [facility] HEMATOLOGY WBC 6.0 3.7 - 10.4 10/30 [facility] HEMATOLOGY MPV 8.1 7.4 - 10.4 10/30 [facility] HEMATOLOGY Platelet 73 133 - 450 10/30 [facility] PARATHYROID Ca Norm WB 0.63 1.05 - 10/30 [place] PROFILE 09.11 [facility] PARATHYROID Ca Ion WB 0.62 1.05 - 10/30 <sup>7</sup>R [place] PROFILE 09.11 esult Medical Comment: Center Critical Result(s) called to della pal at 10/30/2014 01:05 frida. Read back OK. CARDIAC Troponin-I <0.02 0.00 - 10/29 [facility] ENZYMES 0.40 [facility] CARDIAC Troponin-T <0.010 0.000 - 10/29 [facility] ENZYMES 0.100 /2014 [facility] CARDIAC Total CK 83 12 - 191 10/29 [facility] ENZYMES [facility] CARDIAC CK MB Index 0.7 0.0 - 2.5 10/29 [facility] ENZYMES /2014 [facility] CARDIAC CK MB 0.6 0.5 - 3.6 10/29 [facility] ENZYMES /2014 [facility] TOXICOLOGY Vanco Tr TND 0000 10/29 [facility] TOXICOLOGY Vanco Tr 23.9 10/29 <sup>10</sup> [place] Interpretive Medical Data: Center Therapeutic Range:
Trough: 10 - 20 ug/mL
Peak: 20 - 40 ug/mL
Potential Toxicity: >80 ug/mL CHEM PANEL Lactic Acid 0.7 0.5 - 2.2 10/29 [place] L[place] [facility] CHEM PANEL Magnesium Lvl 1.8 1.8 - 2.4 10/29 [place] [facility] CHEM PANEL Phosphorus 2.8 2.5 - 4.5 10/29 [facility] ELECTROLYTE AGAP 11.0 10.0 - 10/29 [facility] S 20.0 [facility] ELECTROLYTE BUN 10 7 - 22 10/29 [facility] S [facility] ELECTROLYTE Glucose Lvl 83 70 - 99 10/29 <sup>6</sup>I nterpretive Medical Data: Adult Center reference range values reflect the clinical guidelines
of the [place] [employer]. ELECTROLYTE Sodium Lvl 145 135 - 145 10/29 [facility] ELECTROLYTE Creatinine 0.7 0.5 - 1.4 10/29 [facility] s S l [facility] ELECTROLYTE eGFR 101 10/29 <sup>3</sup>R [facility] Medical Comment: The Center eGFR is calculated [...] ELECTROLYTE CO2 24 24 - 32 10/29 [facility] ELECTROLYTE Calcium Lvl 7.9 8.5 - 10.5 10/29 [place] 2014 [facility] ELECTROLYTE Chloride Lvl 114 95 - 109 10/29 [facility] ELECTROLYTE Potassium Lvl 4.0 3.5 - 5.1 10/29 [place] [facility] HEMATOLOGY Basophils # 0.1 0.0 - 0.2 10/29 [facility] 2014 [facility] TOXICOLOGY Vanco Tr TND 10/30 830 10/28 [facility] 2014 [facility] TOXICOLOGY Vanco Tr 9.7 10/28 <sup>11</sup> [facility] Interpretive Medical Data: Center Therapeutic Range:
Trough: 10 - 20 ug/mL
Peak: 20 - 40 ug/mL
Potential Toxicity: >80 ug/mL HEMATOLOGY Pat Od Value 0.046 10/28 [facility] HEMATOLOGY Pos CO Value 0.392 10/[address] HEMATOLOGY Heparin Negative Negative 10/28 [facility] Ab(REGI) (10/28/14 6:00 AM) /2014 [facility] CHEM PANEL Lactic Acid 1.0 0.5 - 2.2 10/27 [place] L[place] /2014 [facility] IMMUNOLOGY C-REACTIVE 24.4 <=2.9 mg/L 10/27 [place] PROTEIN /2014 [facility] THYROID TSH 0.120 0.360 - 10/27 [facility] PANEL 3.740 /2014 [facility] THYROID T4 Free 0.96 0.76 - 10/27 [facility] PANEL 1.46 /2014 [facility] CHEM PANEL Lactic Acid 1.6 0.5 - 2.2 10/27 [place] L[place] /2014 [facility] HEMATOLOGY RBC Morph Normal 10/27 [facility] (10/27/14 2:00 AM) /2014 [facility] HEMATOLOGY Plt Morph Normal 10/27 [facility] (10/27/14 2:00 AM) /2014 [facility] HEMATOLOGY Sed Rate 28 0 - 20 10/27 [facility] TOXICOLOGY Cyanide Lvl <0.1 <0.1 mg/L 10/26 <sup>12</sup> M H Result Medical Comment: Test Center Performed at:
[facility] [place]<br/ >Beatty Hughes, [facility] Scarlett Howe
[place], [place] Deshaun Linares MD TOXICOLOGY Cyanide Lvl <0.1 <0.1 mg/L 10/26 <sup>13</sup> M H Result Medical Comment: Test Center Performed at:
[facility] [place]<br/ >Rogerio Rojas [id number] [place] [address] Deshaun Linares MD BLOOD BANK Antibody Scrn Negative 10/26 [facility] as RESULTS (10/26/14 4:24 PM) /2014 [facility] BLOOD BANK ABO/Rh O POS 10/26 [facility] RESULTS /2014 [facility] CHEM PANEL Lipase Lvl 70 73 - 393 10/26 [facility] CHEM PANEL Procalcitonin 0.15 0.00 - 10/26 [place] L[place] 0.10 /2014 [facility] HEMATOLOGY Fibrinogen 348 230 - 510 10/26 [facility] Lvl /2014 [facility] HEMATOLOGY D-Dimer 0.21 10/26 <sup>19</sup> Interpretive [...] DVT/PE. IMMUNOLOGY C-REACTIVE 29.2 <=2.9 mg/L 10/26 [facility] s PROTEIN [facility] CARDIAC Troponin-T <0.010 0.000 - 10/26 [facility] ENZYMES 0.100 [facility] CARDIAC Troponin-I 0.02 0.00 - 10/26 [facility] ENZYMES 0.40 [facility] CHEM PANEL Procalcitonin 0.14 0.00 - 10/26 [facility] s Lvl 0.10 [facility] HEMATOLOGY RBC Morph Normal 10/26 [facility] (10/26/14 1:30 PM) [facility] HEMATOLOGY Plt Morph Normal 10/26 [facility] (10/26/14 1:30 PM) /2014 [facility] HEMATOLOGY Atypical 0.0 <=0.0 % 10/26 [facility] Lymph [facility] HEMATOLOGY Bands 1.0 0.0 - 11.0 10/26 [facility] CHEM PANEL Bili Indirect 0.1 0.0 - 1.0 10/26 [facility] CHEM PANEL Bili Total 0.2 0.2 - 1.3 10/26 [facility] CHEM PANEL Bili Direct 0.1 0.0 - 0.3 10/26 [facility] CHEM PANEL AST 11 0 - 37 10/26 [facility] CHEM PANEL Alk Phos 115 39 - 136 10/26 [facility] CHEM PANEL Albumin Lvl 2.9 3.5 - 5.0 10/26 s [facility] CHEM PANEL Globulin 3.2 2.0 - 4.0 10/26 [facility] CHEM PANEL Total Protein 6.1 6.4 - 8.4 10/26 [facility] CHEM PANEL ALT 23 0 - 65 10/26 [facility] CHEM PANEL A/G Ratio 0.9 0.7 - 1.6 10/26 [facility] HEMATOLOGY Basophils # 0.1 0.0 - 0.2 10/26 [place] [facility] CHEM PANEL Procalcitonin 0.05 0.00 - 10/26 [place] L[place] 0.10 [facility] DRUG SCREEN U [place]ate Scr Negative Negative 10/[place]10/[place]/14 1:40 AM) /[facility] Cannab Scr Negative Negative [place] (10/26/14 1:40 AM) /[facility] [place] DR[facility] S[facility] U Cocaine Scr Negative Negative 10/26 [place] (10/26/14 1:40 AM) /[facility] DRUG S[facility]EN U Benzodia Positive Negative 10/26 [facility] Scr *ABN* /2014 [facility] (10/26/14 1:40 AM) [place] DRUG SCREEN U Phencyc Scr Negative Negative 10/26 [place] (10/26/14 1:40 AM) /2014 [facility] DRUG SCREEN UDS Note See Note 8 10/26 <sup>8</sup>I [facility] (10/26/14 1:40 AM) nterpretive Ne dical Data: Drugs Center reported as positive have not been confirmed by a second
la thod and should be used for medical [...] SCREEN U Amph Scr Negative Negative 10/26 [facility] (10/26/14 1:40 AM) /2014 [facility] DRUG SCREEN U Starla Scr Negative Negative 10/26 [facility] (10/26/14 1:40 AM) /2014 [facility] URINE AND UA Glucose Negative Negative 10/26 [facility] STOOL (10/26/14 1:40 AM) /2014 [facility] URINE AND UA Protein Negative Negative 10/26 [facility] (10/26/14 1:40 AM) /2014 [facility] URINE AND UA Ketones Negative Negative 10/26 [facility] (10/26/14 1:40 AM) /2014 [facility] URINE AND UA Renal Epi 5 <=0 /LPF 10/26 [facility] /2014 [facility] URINE AND UA Mucus Few /LPF None Seen 10/26 [facility] STOOL /LPF /2014 [facility] URINE AND UA Sq Epi Moderate Few /LPF 10/26 [facility] /LPF /2014 [facility] URINE AND UA Hyal Cast 28 0 - 2 10/26 [facility] /2014 [facility] URINE AND UA Blood Negative Negative 10/26 [facility] (10/26/14 1:40 AM) [facility] URINE AND UA Bili Negative Negative 10/26 [facility] STOOL (10/26/14 1:40 AM) /2014 [facility] URINE AND UA Nitrite Negative Negative 10/26 [facility] (10/26/14 1:40 AM) [facility] URINE AND UA <=1.0 0.1 - 1.0 10/26 [facility] Urobilinogen /2014 [facility] URINE AND UA Leuk Est Negative Negative 10/26 [facility] (10/26/14 1:40 AM) /2014 [facility] URINE AND UA Spec Grav 1.009 <=1.030 10/26 [facility] /[address] [place] [address] URINE AND UA Turbidity Slight Clear 10/26 [facility] STOOL *ABN* /2014 Medical (10/26/14 1:40 AM) [place] URINE AND UA Color Yellow Yellow 10/26 [facility] (10/26/14 1:40 AM) Medica l Center URINE AND UA pH 5.0 5.0 - 8.0 10/26 [facility] STOOL /2014 [facility] HEMATOLOGY Angle 76.5 53.0 - 10/26 [facility] 72.0 [facility] HEMATOLOGY Max Amp 74.1 50.0 - 10/26 [facility] 70.0 [facility] HEMATOLOGY G-value 14.3 4.5 - 11.0 10/26 [facility] /2014 [facility] HEMATOLOGY TEG Data See Note 23 10/26 <sup>23</sup> [facility] (10/25/14 9:45 PM) Interpretive M edical [...] HEMATOLOGY Coag Index 3.4 -3.0-3.0 - 10/26 [facility] s 3.0 [facility] HEMATOLOGY K-time 1.0 1.0 - 3.0 10/26 [facility] HEMATOLOGY R-time 5.1 5.0 - 10.0 10/26 [facility] HEMATOLOGY Ly30 0.9 0.0 - 7.5 10/26 [facility] HEMATOLOGY TEG Interp Thrombelas 10/26 [facility] tograph [facility] show increased values of both Angle Alpha and MA. These findings are suggestive of platelet hypercoagu lation. CPT:28476 LIPIDS VLDL 35 10/26 [facility] LIPIDS LDL 60 <=99 mg/dL 10/26 [facility] (Calculated) [facility] LIPIDS CHD Risk 2.76 3.90 - 10/26 [facility] 5.80 [facility] LIPIDS HDL 54 >=61 mg/dL 10/26 [facility] LIPIDS Trig 173 <=149 10/26 [facility] mg/dL [facility] LIPIDS Chol 149 <=199 10/26 [facility] mg/dL [address] [place] [address] SPECIAL Hgb A1C 5.7 <=5.6 % 10/26 [facility] CHEMISTRY [facility] CHEM PANEL Phosphorus 3.7 2.5 - 4.5 11/14 [facility] CHEM PANEL Magnesium Lvl 1.7 1.8 - 2.4 11/14 [place] [facility] ELECTROLYTE AGAP 13.6 10.0 - 11/14 [facility] S 20.0 [facility] ELECTROLYTE eGFR 87 11/14 <sup>1</sup>R [facility] as S [facility] Medical Comment: The Center eGFR is calculated [...] ELECTROLYTE BUN 23 7 - 22 11/14 [facility] ELECTROLYTE Glucose Lvl 70 70 - 99 11/14 <sup>3</sup>I [facility] nterpretive Medical Data: [facility] reference range values reflect the clinical guidelines
of the [place] [employer]. ELECTROLYTE Creatinine 0.8 0.5 - 1.4 11/14 [facility] s S Lvl [facility] ELECTROLYTE Sodium Lvl 140 135 - 145 11/14 [facility] ELECTROLYTE Potassium Lvl 4.6 3.5 - 5.1 11/14 [place] [facility] ELECTROLYTE Chloride Lvl 107 95 - 109 11/14 [facility] as [facility] ELECTROLYTE CO2 24 24 - 32 11/14 [facility] ELECTROLYTE Calcium Lvl 8.8 8.5 - 10.5 11/14 [place] [facility] HEMATOLOGY INR 1.97 0.85 - 11/14 <sup>6</sup>I [facility] s 1.17 nterpretive Medical Data: Center RECOMMENDED RANGES FOR PROTIME INR:
2.0-3.0 for most medical and surgical thromboemboli c states.
2.5-3.5 for artificial heart valves and recurrent embolism.<br/ >
INR SHOULD BE USED ONLY FOR PATIENTS ON STABLE ANTICOAGULANT THERAPY. HEMATOLOGY PT 22.1 12.0 - 11/14 [facility] 14.7 [facility] LIPIDS LDL 93 <=99 mg/dL 11/14 [facility] (Calculated) [facility] LIPIDS VLDL 66 11/14 [facility] LIPIDS Trig 330 <=149 11/14 [facility] mg/dL [facility] LIPIDS Chol 197 <=199 11/14 [facility] mg/dL [facility] LIPIDS HDL 38 >=61 mg/dL 11/14 [facility] LIPIDS CHD Risk 5.18 3.90 - 11/14 [facility] 5.80 /2013 [facility] DRUG SCREEN U Phencyc Scr Positive Negative 11/14 [place] *ABN* [facility] (11/13/2013 20:09:21 [facility]) Center DRUG SCREEN UDS Note See Note 5 11/14 <sup>5</sup>I [facility] (11/13/2013 20:09:21 [facility]) nterpretive Medical Data: Drugs Center reported as [...] [place] *NA* /2013 Medical (11/13/2013 20:09:21 [facility]) Center DRUG SCREEN U Benzodia Positive Negative [place]/14 [place] *ABN* [facility] (11/13/2013 20:09:21 [facility]) Center DRUG SCREEN U Opiate [place]r Positive Negative 11/14 [place] *ABN* /2013 Medical (11/13/2013 20:09:21 [facility]) Center DRUG SCREEN U Cocaine Scr Negative Negative 11/14 [place] *NA* Medical (11/13/2013 20:09:21 [facility]) Center DRUG SCREEN U Cannab [place]r Negative Negative 11/14 [place] *NA* Medical (11/13/2013 20:09:21 [facility]) Center DRUG SCREEN U Amph Scr Negative Negative 11/14 [place] *NA* Medical (11/13/2013 20:09:21 [facility]) Center DRUG SCREEN U Methadone Negative Negative 11/14 [place] Scr *NA* Medical (11/13/2013 20:09:21 [facility]) Center DRUG SCREEN U Propoxyph Negative Negative 11/14 [place] *NA* Medical (11/13/2013 20:09:21 [facility]) Center URINE AND UA Hyal Cast 2 0 - 2 11/14 [facility] /2013 [facility] URINE AND UA <=1.0 0.1 - 1.0 11/14 [facility] Urobilinogen mg/dL /2013 Medical [place] URINE AND UA Turbidity Slight Clear 11/14 [facility] STOOL *ABN* Medical (11/13/2013 20:09:00 [facility] [place] URINE AND UA Color Yellow Yellow 11/14 [facility] STOOL *NA* Medical (11/13/2013 20:09:00 [facility] [place] URINE AND UA pH 6.5 5.0 - 8.0 11/14 [facility] STOOL [facility] URINE AND UA Spec Grav 1.024 <=1.030 11/14 [facility] STOOL Medical Center URINE AND UA Protein 20 mg/dL Negative 11/14 [facility] STOOL mg/dL Medical Center URINE AND UA Ketones Negative Negative 11/14 [facility] STOOL mg/dL mg/dL [facility] [place] URINE AND UA Glucose Negative Negative 11/14 [facility] mg/dL mg/dL [facility] [place] URINE AND UA Blood Negative Negative 11/14 [facility] (11/13/2013 20:09:00 [facility]) /2013 Medical Center URINE AND UA Bili Negative Negative 11/14 [facility] STOOL *NA* /2013 Medical (11/13/2013 20:09:00 [facility] Center URINE AND UA Leuk Est Small Negative 11/14 [facility] STOOL *ABN* Medical (11/13/2013 20:09:00 [facility]) Center URINE AND UA Nitrite Negative Negative 11/14 [facility] (11/13/2013 20:09:00 [facility] Medical Center URINE AND UA WBC 3 0 - 5 11/14 [facility] STOOL [facility] URINE AND UA Sq Epi Many /LPF Few /LPF 11/14 [facility] STOOL Medical Center URINE AND UA Bacteria Occasional None Seen 11/14 [place] /HPF /HPF /2013 Medical [place] URINE AND UA RBC 1 0 - 2 11/14 [facility] STOOL [facility] URINE AND UA Amorph Occasional None Seen 11/14 [place] /HPF /HPF Medical Center URINE AND UA Mucus Few /LPF None Seen 11/14 [place] STOOL /LPF Medical Center URINE CHEM U Preg Negative Negative 11/14 [facility] (11/13/2013 20:09:00 [facility]) /2013 Medical Center CARDIAC Troponin-T <0.010 0.000 - 11/13 [facility] ENZYMES 0.100 [facility] CARDIAC Troponin-I <0.02 0.00 - 11/13 [facility] ENZYMES 0.40 [facility] CARDIAC Total CK 107 12 - 191 11/13 [facility] CARDIAC CK MB Index 0.5 0.0 - 2.5 11/13 [place] [facility] CARDIAC CK MB 0.5 0.5 - 3.6 11/13 [place] [facility] CHEM PANEL Bili Indirect 0.1 0.0 - 1.0 11/13 [place] [facility] CHEM PANEL Bili Total 0.2 0.2 - 1.3 11/13 [facility] CHEM PANEL Bili Direct 0.1 0.0 - 0.3 11/13 [place] [facility] CHEM PANEL AST 24 0 - 37 11/13 [facility] CHEM PANEL A/G Ratio 0.9 0.7 - 1.6 11/13 [facility] CHEM PANEL ALT 40 0 - 65 11/13 [facility] CHEM PANEL Total Protein 6.4 6.4 - 8.4 11/13 [place] [facility] CHEM PANEL Albumin Lvl 3.0 3.5 - 5.0 11/13 [facility] CHEM PANEL Globulin 3.4 2.0 - 4.0 11/13 [facility] CHEM PANEL Alk Phos 118 39 - 136 11/13 [facility] SPECIAL Hgb A1C 5.0 <=5.6 % 11/13 [facility] CARDIAC CK MB Index 0.6 0.0 - 2.5 11/13 [facility] CARDIAC Troponin-I <0.02 0.00 - 11/13 [facility] ENZYMES 0.40 [facility] CARDIAC CK MB 0.6 0.5 - 3.6 11/13 [facility] CARDIAC Total CK 108 12 - 191 11/13 [facility] CHEM PANEL eGFR 75 11/13 <sup>2</sup>R [...] CHEM PANEL AGAP 13.1 10.0 - 11/13 . [facility] CHEM PANEL CO2 26 24 - 32 11/13 [facility] CHEM PANEL Chloride Lvl 106 95 - 109 11/13 [facility] CHEM PANEL Calcium Lvl 8.6 8.5 - 10.5 11/13 [facility] CHEM PANEL Creatinine 0.9 0.5 - 1.4 11/13 [facility] Lvl [facility] CHEM PANEL BUN 12 7 - 22 11/13 [facility] CHEM PANEL Potassium Lvl 4.1 3.5 - 5.1 11/13 [facility] CHEM PANEL Sodium Lvl 141 135 - 145 11/13 [facility] CHEM PANEL Glucose Lvl 81 70 - 99 11/13 <sup>4</sup>I nterpretive Medical Data: Adult Center reference range values reflect the clinical guidelines
of the [place] [employer]. HEMATOLOGY Monocytes 4.1 2.0 - 12.0 11/13 [facility] HEMATOLOGY Eosinophils 1.4 0.0 - 4.0 11/13 [facility] HEMATOLOGY Basophils 0.0 0.0 - 1.0 11/13 [facility] HEMATOLOGY Segs-Bands # 4.7 1.5 - 8.1 11/13 [facility] HEMATOLOGY Lymphocytes # 6.0 1.0 - 5.5 11/13 [facility] HEMATOLOGY Monocytes # 0.5 0.0 - 0.8 11/13 [facility] HEMATOLOGY Segs 41.0 45.0 - 11/13 75.0 [facility] HEMATOLOGY Lymphocytes 53.5 20.0 - 11/13 40.0 [facility] HEMATOLOGY Eosinophils # 0.2 0.0 - 0.5 11/13 [facility] HEMATOLOGY Basophils # 0.0 0.0 - 0.2 11/13 [facility] HEMATOLOGY PT 24.2 12.0 - 11/13 14.7 [facility] HEMATOLOGY INR 2.22 0.85 - 11/13 <sup>7</sup>I [facility] s 1. nterpretive Medical Data: Center RECOMMENDED RANGES FOR [...] HEMATOLOGY Platelet 486 133 - 450 11/13 [facility] HEMATOLOGY RDW 17.1 11.5 - 11/13 [place] 14.5 /2013 [facility] HEMATOLOGY MPV 7.0 7.4 - 10.4 11/13 [facility] HEMATOLOGY MCHC 33.7 32.0 - 11/13 [place] 36.0 [facility] HEMATOLOGY MCH 28.2 27.0 - 11/13 [place] 31.0 [facility] HEMATOLOGY RBC 4.35 4.20 - 11/13 [place] 5.40 /2013 [facility] HEMATOLOGY WBC 11.4 3.7 - 10.4 11/13 [facility] HEMATOLOGY MCV 83.7 81.0 - 11/13 [facility] 99.0 /2013 [facility] HEMATOLOGY Hgb 12.3 12.0 - 11/13 16.0 [facility] HEMATOLOGY Hct 36.4 36.0 - 11/13 [facility] 48.0 [facility] CHEMISTRY AGAP 15.8 10.0 - 05/12 Normal [facility] 20. [facility] CHEMISTRY eGFR 136 05/12 NA <sup>5</sup>R [...] Lvl 142 135 - 145 05/12 Normal [facility] Center CHEMISTRY Creatinine 0.3 0.5 - 1.4 05/12 LOW [place] [facility] CHEMISTRY Calcium Lvl 7.7 8.5 - 10.5 05/12 LOW [facility] CHEMISTRY BUN 5 7 - 22 05/12 LOW [facility] Center CHEMISTRY Glucose Lvl 72 70 - 99 05/12 Normal <sup>8</sup>I [place] nterpretive Medical Data: Adult Center reference range values reflect the clinical guidelines
of the [place] [employer]. CHEMISTRY Chloride Lvl 107 95 - 109 05/12 Normal [facility] CHEMISTRY Potassium Lvl 3.8 3.5 - 5.1 05/12 Normal [facility] HEMATOLOGY Segs-Bands # 7.8 1.5 - 8.1 05/12 Normal [facility] HEMATOLOGY Lymphocytes # 3.5 1.0 - 5.5 05/12 Normal [place] [facility] HEMATOLOGY Monocytes # 0.9 0.0 - 0.8 05/12 [place] [facility] HEMATOLOGY Eosinophils # 0.3 0.0 - 0.5 05/12 Normal [facility] HEMATOLOGY Basophils # 0.1 0.0 - 0.2 05/12 Normal [facility] HEMATOLOGY Monocytes 7.4 2.0 - 12.0 05/12 Normal [facility] HEMATOLOGY Basophils 0.7 0.0 - 1.0 05/12 Normal [facility] HEMATOLOGY Lymphocytes 27.8 20.0 - 05/12 Normal [place] 40.0 [facility] Center HEMATOLOGY Eosinophils 2.7 0.0 - 4.0 05/12 Normal a [facility] Center HEMATOLOGY Segs 61.4 45.0 - 05/12 Normal [place] 75.0 Medical Center HEMATOLOGY MCV 88.5 81.0 - 05/12 Normal [place] 99.0 [facility] HEMATOLOGY RDW 15.2 11.5 - 05/12 [place] 14.5 Medical Center HEMATOLOGY MCHC 32.5 32.0 - 05/12 Normal [place] 36.0 Medical Center HEMATOLOGY Platelet 252 133 - 450 05/12 Normal [facility] HEMATOLOGY MPV 7.7 7.4 - 10.4 05/12 Normal [facility] HEMATOLOGY WBC 12.8 3.7 - 10.4 05/12 [place] [facility] HEMATOLOGY RBC 3.82 4.20 - 05/12 LOW [facility] 5.40 /2012 [facility] HEMATOLOGY Hgb 11.0 12.0 - 05/12 LOW [facility] 16.0 /2012 [facility] HEMATOLOGY Hct 33.8 36.0 - 05/12 LOW [facility] 48.0 /2012 [facility] HEMATOLOGY MCH 28.8 27.0 - 05/12 Normal [facility] 31.0 /2012 [facility] BEDSIDE Gluc POC 89 70 - 99 05/11 Normal <sup>2</sup>I [facility] GLUCOSE nterpretive Medical TESTING Data: Center Upper Reportable Limit: 200 mg/dL. CHEMISTRY Opiate Scr Negative Negative 05/11 Normal [facility] (05/11/2013 02:00:00) Ne dical Center CHEMISTRY PCP Scr Negative Negative 05/11 Normal [facility] (05/11/2013 02:00:00) Ne dical Center CHEMISTRY Propoxyphn Negative Negative 05/11 Normal [facility] Scr (05/11/2013 02:00:00) Ne dical Center CHEMISTRY Cocaine Scr Negative Negative 05/11 Normal [facility] (05/11/2013 02:00:00) Ne dical Center CHEMISTRY Methadone Scr Positive Negative 05/11 ABN [place] *ABN* /2012 Medical (05/11/2013 02:00:00) Ce nter CHEMISTRY Cutoff Values See Note 12 05/11 Normal <sup>12</sup > [facility] (05/11/2013 02:00:00) Interpreti ve Medical Data: Cutoff Center (lowest detectable by EIA) values for Serum Drugscreen:<b r/> THC and PCP: 1 ng/mL
All others: 20 ng/mL

Cutoff (lowest detectable by GC/MS) value for confirmation:
THC and PCP: 1 ng/mL
Benzodiazepi rebecca: 5 ng/ml
All others: 10 ng/ml

Test performed by [facility]
[address] [place] [address]
[place] [address] CHEMISTRY Starla Scr Negative Negative 05/11 Normal [facility] (05/11/2013 02:00:00) Ne dical Center CHEMISTRY Benzodiaz Scr Negative Negative 05/11 Normal [place] [facility]11[facility]2013 [facility]:00:00[facility]ab [facility]r Negative Negative 05/11 Normal [facility] (05/11/2013 02:00:00) Ne dicmo Center CHEMISTRY Amph Scr Negative Negative 05/11 Normal [facility] (05/11/2013 02:00:00) [facility] CHEMISTRY Ca Ion WB 1.09 1.05 - 05/11 Normal [place] 1. [facility] CHEMISTRY Ca Norm WB 1.07 1.05 - 05/11 Normal [facility] 1. [facility] CHEMISTRY Magnesium Lvl 2.0 1.8 - 2.4 05/11 Normal [place] [facility] CHEMISTRY Phosphorus 2.6 2.5 - 4.5 05/11 Normal [facility] CHEMISTRY eGFR 108 05/11 NA <sup>6</sup>R [...] - 10.5 05/11 [place] /2012 [facility] CHEMISTRY AGAP 17.7 10.0 - 05/11 Normal [place] 20.0 [facility] CHEMISTRY BUN 7 7 - 22 05/11 Normal Medical Center CHEMISTRY Glucose Lvl 59 70 - 99 05/11 [place] <sup>9</sup>I [place] nterpretive Medical Data: Adult Center reference range values reflect the clinical guidelines
of the [place] [employer]. CHEMISTRY Creatinine 0.6 0.5 - 1.4 05/11 Normal [facility] Medical Center CHEMISTRY Sodium Lvl 141 135 - 145 05/11 Normal Medical Center CHEMISTRY Potassium Lvl 3.7 3.5 - 5.1 05/11 Normal Medical Center CHEMISTRY Chloride Lvl 106 95 - 109 05/11 Normal Medical Center CHEMISTRY CO2 21 24 - 32 05/11 LOW [facility] Center CHEMISTRY Methadone Qnt See Note 13 05/11 Normal <sup>13</sup > [facility] (05/11/2013 02:00:00) Result Me dical Comment: Center Methadone: 158 ng/mL
LOS P: 41 ng/mL HEMATOLOGY WBC 17.2 3.7 - 10.4 05/11 [place] [facility] HEMATOLOGY Platelet 203 133 - 450 05/11 Normal Medical Center HEMATOLOGY MPV 8.7 7.4 - 10.4 05/11 Normal Medical Center HEMATOLOGY MCV 88.4 81.0 - 05/11 Normal [place] 99.0 Medical Center HEMATOLOGY MCH 29.4 27.0 - 05/11 Normal [place] 31.0 Medical Center HEMATOLOGY RDW 15.3 11.5 - 05/11 [facility] [place] 14.5 Medical Center HEMATOLOGY MCHC 33.2 32.0 - 05/11 Normal [place] 36.0 /2012 Medical Center HEMATOLOGY RBC 3.75 4.20 - 05/11 [facility] [place] 5.40 /2012 Medical Center HEMATOLOGY Hgb 11.0 12.0 - 05/11 LOW [place] 16.0 /2012 Medical Center HEMATOLOGY Hct 33.1 36.0 - 05/11 [facility] [place] 48.0 Medical Center HEMATOLOGY Monocytes 4.4 2.0 - 12.0 05/11 Normal Medical Center HEMATOLOGY Segs 77.7 45.0 - 05/11 [facility] [place] 75.0 /2012 Medical Center HEMATOLOGY Monocytes # 0.8 0.0 - 0.8 05/11 [place] [facility] HEMATOLOGY Segs-Bands # 13.4 1.5 - 8.1 05/11 [place] [facility] Center HEMATOLOGY Lymphocytes # 2.7 1.0 - 5.5 05/11 Normal [place] [facility] HEMATOLOGY Basophils 0.8 0.0 - 1.0 05/11 Normal [facility] Center HEMATOLOGY Eosinophils 1.5 0.0 - 4.0 05/11 [place] [facility] HEMATOLOGY Lymphocytes 15.6 20.0 - 05/11 LOW [place] 40.0 Medical Center HEMATOLOGY Basophils # 0.1 0.0 - 0.2 05/11 [place] [facility] HEMATOLOGY Eosinophils # 0.3 0.0 - 0.5 05/11 [place] [facility] BEDSIDE Gluc POC Notify 05/11 NA [facility] GLUCOSE Comment 1 RN/MD /2012 Medical TESTING Center BEDSIDE Gluc POC 79 70 - 99 05/11 Normal <sup>3</sup>I [facility] GLUCOSE nterpretive Medical TESTING Data: Center Upper Reportable Limit: 200 mg/dL. HEMATOLOGY Fibrinogen 814 230 - 510 05/10 [facility] Lvl Medical Center HEMATOLOGY Plt Neut Test negative 05/10 [facility] as Platelet /2012 Medical Neutraliza Center tion procedure HEMATOLOGY Lup Interp Negative 05/10 [facility] for lupus [facility] anticoagul Center ant (normal dRVVT, positive hexagonal phospholip id neutraliza tion, and negative Platelet Neutraliza tion procedure) . Thrombin Time is normal (16.7 sec) which rules out heparin as interferen ce substance. CPT: 31351 HEMATOLOGY Hex Phos N Positive Negative 05/10 Normal [facility] (05/10/2013 18:12:00) /2012 Ne dical Center HEMATOLOGY dRVV 1.06 <=1.20 05/10 Normal [facility] HEMATOLOGY AT III Func 70 77 - 140 05/10 LOW [facility] HEMATOLOGY Sed Rate >100 mm/hr 0 - 20 05/10 ABN [facility] *ABN* /2012 Medical (05/10/2013 18:12:00) Ce nter HEMATOLOGY Protein S 35 54 - 137 05/10 [facility] Func [facility] Center HEMATOLOGY Protein C 68 72 - 147 05/10 LOW [facility] Func /2012 [facility] IMMUNOLOGY Cardiolipin 1 05/10 NA <sup>16</sup> [facility] IgA Interpretive Medical Data: Center Reference Ranges for IgA:
0-11 APL Negative
12-20 APL Inconclusive< br/>21-80 APL Low-Med Positive
> 80 APL Strong Positive IMMUNOLOGY Cardiolipin 1 05/10 NA <sup>17</sup> [facility] IgG Interpretive Medical Data: Center Reference Ranges for IgG:
0-14 GPL Negative
15-20 GPL Inconclusive< br/>21-80 GPL Low-Med Positive
> 80 GPL Strong Positive IMMUNOLOGY Cardiolipin 5.2 05/10 NA <sup>18</sup> [facility] IgM Interpretive Medical Data: Center Reference [...] High >190.0 05/10 [place] <sup>14</sup> [place] Sensitivity Interpretive Medical Data: Low Center Risk: <1.0 mg/L
Aver age Risk: 1.0 - 3.0 mg/L
High Risk: >3.0 mg/L
Infl ammation: >10.0 mg/L BACTERIAL - U S pneumo Ag Negative Negative 05/10 [place] [facility] (05/10/2013 16:41:00) /2012 edical Center MICRO MISC U Legion Ag Negative 1 Negative 05/10 Normal <sup>1</sup>I [facility] - SEROLOGY (05/10/2013 16:41:00) /2012 nterpre tive Medical Data: This Center kit tests for Legionella pneumophila Serogroup 1 Antigen. BEDSIDE Gluc POC 96 70 - 99 05/10 Normal <sup>4</sup>I [facility] GLUCOSE /2012 nterpretive Medical TESTING Data: Center Upper Reportable Limit: 200 mg/dL. BEDSIDE Gluc POC Notify 05/10 [facility] GLUCOSE Comment 1 RN/MD /2012 Medical TESTING Center URINALYSIS UA Renal Epi 8 <=0 05/10 [facility] URINALYSIS UA Mucus Few /LPF None Seen 05/10 [facility] *NA* Medical (05/10/2013 09:50:39) Ce nter URINALYSIS UA RBC <1 0 - 2 05/10 Normal [facility] URINALYSIS UA Sq Epi Few /LPF Few 05/10 NA *NA* Medical (05/10/2013 09:50:39) Ce nter URINALYSIS UA WBC <1 0 - 5 05/10 Normal [facility] Center URINALYSIS UA Leuk Est Negative Negative 05/10 [place] (05/10/2013 09:50:39) /2012 Ne dicmo Center URINALYSIS UA Nitrite Negative Negative 05/10 Normal [facility] (05/10/2013 09:50:39) Ne dicmo Center URINALYSIS UA Blood Negative Negative 05/10 Normal [facility] (05/10/2013 09:50:39) [facility]A Glucose Negative mg/dL Negative 05/10 NA [facility] *NA* [facility] (05/10/2013 09:50:39) Ce nter URINALYSIS UA Bili Negative Negative 05/10 NA [facility] *NA* Medical (05/10/2013 09:50:39) Ce nter URINALYSIS UA 0.1 - 1.0 05/10 NA [facility] Urobilinogen [facility] URINALYSIS UA Ketones TR 05/10 NA [facility] URINALYSIS UA Spec Grav 1.006 <=1.030 05/10 Normal [facility] URINALYSIS UA Turbidity Clear Clear 05/10 Normal [facility] (05/10/2013 09:50:39) Ne dical Center URINALYSIS UA Color Light Yellow Yellow [place]/10 [place] Medical (05/10/2013 09:50:39) Ce nter URINALYSIS UA Protein Negative mg/dL Negative 05/10 Normal [facility] (05/10/2013 09:50:39[facility] pH 7.5 5.0 - 8.0 05/10 Normal [facility] CHEMISTRY eGFR 87 05/10 NA <sup>7</sup>R [...] Lvl 140 135 - 145 05/10 Normal [facility] Center CHEMISTRY AGAP 14.6 10.0 - 05/10 Normal [place] 20.0 Medical Center CHEMISTRY Calcium Lvl 7.8 8.5 - 10.5 05/10 [place] [facility] CHEMISTRY Chloride Lvl 105 95 - 109 05/10 Normal Medical Center CHEMISTRY Potassium Lvl 3.6 3.5 - 5.1 05/10 Normal [place] [facility] Center CHEMISTRY CO2 24 24 - 32 05/10 Normal Medical Center CHEMISTRY Creatinine 0.8 0.5 - 1.4 05/10 Normal [place] Lvl Medical Center CHEMISTRY BUN 7 7 - 22 05/10 Normal [facility] Center CHEMISTRY Glucose Lvl 51 70 - 99 05/10 LOW <sup>10</sup> T ex Interpretive Medical Data: Adult Center reference range values reflect the clinical guidelines
of the [place] [employer]. CHEMISTRY Magnesium Lvl 1.6 1.8 - 2.4 05/10 LOW [place] [facility] Center CHEMISTRY Phosphorus 2.2 2.5 - 4.5 05/10 LOW Medical Center HEMATOLOGY MCH 29.1 27.0 - 05/10 Normal [place] 31.0 Medical Center HEMATOLOGY Hct 33.8 36.0 - 05/10 LOW [place] 48.0 Medical Center HEMATOLOGY MCV 89.2 81.0 - 05/10 Normal [place] 99.0 Medical Center HEMATOLOGY Hgb 11.0 12.0 - 05/10 LOW [place] 16.0 [facility] Center HEMATOLOGY MPV 8.5 7.4 - 10.4 05/10 Normal [facility] Center HEMATOLOGY Platelet 202 133 - 450 05/10 Normal [facility] Center HEMATOLOGY RDW 15.1 11.5 - 05/10 HI [place] 14.5 Medical Center HEMATOLOGY MCHC 32.6 32.0 - 05/10 Normal [place] 36.0 Medical Center HEMATOLOGY RBC 3.79 4.20 - 05/10 LOW [place] 5.40 /2012 Medical Center HEMATOLOGY WBC 22.1 3.7 - 10.4 05/10 HI [place] /2012 Medical Center HEMATOLOGY Basophils # 0.1 0.0 - 0.2 05/10 [place] [facility] Center HEMATOLOGY Monocytes # 0.6 0.0 - 0.8 05/10 [place] [facility] HEMATOLOGY Eosinophils # 0.2 0.0 - 0.5 05/10 [place] [facility] HEMATOLOGY Segs 83.0 45.0 - 05/10 HI [place] 75.0 /2012 Medical Center HEMATOLOGY Lymphocytes # 2.9 1.0 - 5.5 05/10 [place] [facility] HEMATOLOGY Segs-Bands # 18.3 1.5 - 8.1 05/10 [place] /2012 [facility] HEMATOLOGY Basophils 0.4 0.0 - 1.0 05/10 Normal [facility] HEMATOLOGY Eosinophils 1.0 0.0 - 4.0 05/10 [place] [facility] HEMATOLOGY Lymphocytes 12.9 20.0 - 05/10 LOW [place] 40.0 /2012 Medical Center HEMATOLOGY Monocytes 2.7 2.0 - 12.0 05/10 Normal [facility] HEMATOLOGY Sed Rate 55 0 - 20 05/09 HI [place] /2012 Medical Center HEMATOLOGY Fibrinogen 634 230 - 510 05/09 HI [place] Lvl /2012 [facility] IMMUNOLOGY C3 Complement 124 88 - 201 05/09 Normal [place] /2012 [facility] Center IMMUNOLOGY DNA Ab (DS) Negative Negative 05/09 [place] (05/09/2013 14:56:00) /2012 Ne dical Center IMMUNOLOGY SS-B (La) Ab Negative Negative 05/09 Normal [place] (05/09/2013 14:56:00) Ne dical Center IMMUNOLOGY SS-A (Ro) Ab Negative Negative 05/09 Normal [place] (05/09/2013 14:56:00) Ne dical Center IMMUNOLOGY CRP, High >190.0 mg/L 15 05/09 Normal <sup>15</sup > [place] Sensitivity (05/09/2013 14:56:00) /2012 Interp retive Medical Data: Low Center Risk: <1.0 mg/L
Aver age Risk: 1.0 - 3.0 mg/L
High Risk: >3.0 mg/L
Infl ammation: >10.0 mg/L IMMUNOLOGY KYLE Negative Negative 05/09 Normal [facility] (05/09/2013 14:56:00) Ne dicmo Center IMMUNOLOGY C4 Complement 34 16 - 47 05/09 Normal [facility] CHEMISTRY Phosphorus 2.3 2.5 - 4.5 05/09 LOW [facility] CHEMISTRY Magnesium Lvl 1.4 1.8 - 2.4 05/09 LOW [facility] as /2012 [facility] CHEMISTRY Lactic Acid 1.8 0.5 - 2.2 05/09 Normal [facility] /2012 [facility] Microbiolog Culture: 05/09 [facility] Blood [facility] Microbiolog Culture: 05/09 [facility] Blood [facility] CHEMISTRY LDL 71 <=99 05/09 Normal [facility] CHEMISTRY HDL 36 >=61 05/09 LOW [facility] CHEMISTRY Trig 126 <=149 05/09 Normal [facility] CHEMISTRY Chol 132 <=199 05/09 Normal [facility] CHEMISTRY CHD Risk 3.67 3.90 - 05/09 LOW [facility] 5.80 [facility] CHEMISTRY Hgb A1C 4.9 <=5.6 05/09 Normal [facility] BEDSIDE Gluc POC Notify 05/09 [facility] GLUCOSE Comment 1 RN/ /2012 [facility] TESTING Center CHEMISTRY U Phencyc Scr Negative Negative 05/09 NA [facility] *NA* /2012 Medical (05/08/2013 19:11:00) Ce nter CHEMISTRY UDS Note See Note 11 05/09 Normal <sup>11</sup> [facility] (05/08/2013 19:11:00) Interpreti ve Medical Data: [...] CHEMISTRY U Benzodia Positive Negative 05/09 ABN [facility] Scr *ABN* Medical (05/08/2013 19:11:00) Ce nter CHEMISTRY U Cannab Scr Negative Negative 05/09 [facility] Medical (05/08/2013 19:11:00) Ce nter CHEMISTRY U Cocaine Scr Negative Negative 05/09 [facility] [place] as *NA Medical (05/08/2013 19:11:00) Ce nter CHEMISTRY U Opiate Scr Negative Negative 05/09 [facility] Medical (05/08/2013 19:11:00) Ce nter CHEMISTRY U Starla Scr Negative Negative 05/09 [facility] [place] *NA* Medical (05/08/2013 19:11:00) Ce nter CHEMISTRY U Amph Scr Negative Negative 05/09 [facility] [place] *NA* Medical (05/08/2013 19:11:00) Ce nter CHEMISTRY AST 54 0 - 37 05/09 [place] [facility] CHEMISTRY Total Protein 5.8 6.4 - 8.4 05/09 LOW [facility] Center CHEMISTRY Bili Total 0.2 0.2 - 1.3 05/09 Normal Medical Center CHEMISTRY Albumin Lvl 2.8 3.5 - 5.0 05/09 LOW Medical Center CHEMISTRY Alk Phos 95 39 - 136 05/09 Normal Medical Center CHEMISTRY ALT 29 0 - 65 05/09 Normal [facility] CHEMISTRY A/G Ratio 0.9 0.7 - 1.6 05/09 Normal [facility] CHEMISTRY B/C Ratio 15 6 - 25 05/09 Normal [facility] CHEMISTRY Globulin 3.0 2.0 - 4.0 05/09 Normal [facility] URINALYSIS UA 0.1 - 1.0 05/09 NA [facility] Urobilinogen /2012 [facility] URINALYSIS UA Turbidity Slight Clear 05/09 ABN * Medical (05/08/2013 19:11:00) Ce nter URINALYSIS UA Spec Grav 1.013 <=1.030 05/09 Normal [facility] URINALYSIS UA Blood Small Negative 05/09 ABN [facility] Medical (05/08/2013 19:11:00) Ce nter URINALYSIS UA Leuk Est Negative Negative 05/09 Normal [facility] (05/08/2013 19:11:00) Ne dicmo Center URINALYSIS UA Nitrite Negative Negative 05/09 Normal [facility] (05/08/2013 19:11:00) Ne dicmo Center URINALYSIS UA pH 5.0 5.0 - 8.0 05/09 Normal [facility] URINALYSIS UA Protein 30 mg/dL Negative 05/09 ABN Medical (05/08/2013 19:11:00) Ce nter URINALYSIS UA Glucose Negative mg/dL Negative [facility]11:00[facility] Ce nter URINALYSIS UA Color Yellow Yellow 05/09 NA Medical (05/08/2013 19:11:00) Ce nter URINALYSIS UA Sq Epi Few /LPF Few 05/09 [facility] Medical (05/08/2013 19:11:00) Ce nter URINALYSIS UA RBC 1 0 - 2 05/09 Normal [facility] URINALYSIS UA Ketones Negative mg/dL Negative 05/09 [facility] (05/08/2013 19:11:00) Ce nter URINALYSIS UA Bili Negative Negative 05/09 NA [facility] *NA* Medical (05/08/2013 19:11:00) Ce nter URINALYSIS UA Mucus Few /LPF None Seen 05/09 [facility] Medical (05/08/2013 19:11:00) Ce nter URINALYSIS UA Amorph Occasional /HPF None Seen 05/09 [facility] Jaimee *NA Medical (05/08/2013 19:11:00) Ce nter BEDSIDE Comment1 Notify 07/21 NA [facility] GLUCOSE RN/MD /2011 [facility] TESTING Center BEDSIDE Gluc POC 87 70 - 99 07/21 Normal <sup>1</sup>I [facility] GLUCOSE Lifscn nterpretive Medical TESTING Data: Center Upper Reportable Limit: 200 mg/dL. CHEMISTRY LDL 122 0 - 129 07/21 Normal [facility] CHEMISTRY HDL 24 >=35 07/21 LOW [facility] CHEMISTRY Trig 238 0 - 200 07/21 [facility] CHEMISTRY Chol 194 120 - 200 07/21 Normal [facility] CHEMISTRY CHD Risk 8.08 3.90 - 12 [facility] 5.80 [facility] CHEMISTRY Phosphorus 3.2 2.5 - 4.5 07/21 Normal [facility] CHEMISTRY Magnesium Lvl 1.9 1.8 - 2.4 07/21 Normal [facility] CHEMISTRY AGAP 14.1 10.0 - 07/21 Normal [facility] 20.0 [facility] CHEMISTRY BUN 9 7 - 22 07/21 Normal [facility] CHEMISTRY Glucose Lvl 77 70 - 99 07/21 Normal <sup>7</sup>I T ex nterpretive Medical Data: Adult Center reference range values reflect the clinical guidelines
of the [place] [employer]. CHEMISTRY eGFR 104 07/21 NA [...] Lvl 101 95 - 109 07/21 Normal [facility] CHEMISTRY Sodium Lvl 138 135 - 145 07/21 [facility] CHEMISTRY Potassium Lvl 4.1 3.5 - 5.1 07/21 Normal [facility] CHEMISTRY Creatinine 0.7 0.5 - 1.4 07/21 Normal [facility] CHEMISTRY CO2 27 24 - 32 07/21 [facility] CHEMISTRY Calcium Lvl 8.0 8.5 - 10.5 07/21 LOW [facility] CHEMISTRY Hgb A1C 5.8 07/21 NA [...] HEMATOLOGY MPV 6.8 7.4 - 10.4 07/21 [facility] HEMATOLOGY Platelet 539 133 - 450 07/21 HI [facility] HEMATOLOGY MCV 88.7 81.0 - 07/21 Normal [place] 99.0 [facility] HEMATOLOGY MCH 29.4 27.0 - 07/21 [facility] 31.0 [facility] HEMATOLOGY MCHC 33.1 32.0 - 07/21 [facility] 36.0 /2011 Medical Center HEMATOLOGY RDW 15.0 11.5 - 12/04 HI [place] 14.5 /2011 Medical Center HEMATOLOGY Hct 38.4 36.0 - 12 Normal [place] 48.0 /2011 Medical Center HEMATOLOGY RBC 4.34 4.20 - 12 Normal [place] 5.40 /2011 Medical Center HEMATOLOGY Hgb 12.7 12.0 - 12 Normal [place] 16.0 /2011 Medical Center HEMATOLOGY WBC 11.7 3.7 - 10.4 12 HI [facility] HEMATOLOGY Basophils 0.5 0.0 - 1.0 12/ Normal [facility] [place] HEMATOLOGY Segs-Bands # 5.9 1.5 - 8.1 12 Normal [place] as Medical Center HEMATOLOGY Monocytes 6.0 2.0 - 12.0 12 Normal Medical Center HEMATOLOGY Lymphocytes 41.5 20.0 - 12 HI [place] 40.0 Medical Center HEMATOLOGY Eosinophils 1.9 0.0 - 4.0 12 [place] [facility] HEMATOLOGY Segs 50.1 45.0 - 12 Normal [place] 75.0 /2011 Medical Center HEMATOLOGY Monocytes # 0.7 0.0 - 0.8 12/ [place] [facility] HEMATOLOGY Lymphocytes # 4.8 1.0 - 5.5 12 [place] [facility] Center HEMATOLOGY Eosinophils # 0.2 0.0 - 0.5 12 [place] [facility] Center HEMATOLOGY Basophils # 0.1 0.0 - 0.2 07/21 Normal a s [facility] Center Microbiolog Culture: 07/21 [facility] y Urine [facility] Center BEDSIDE Gluc POC 112 70 - 99 07/21 HI <sup>2</sup>I [facility] GLUCOSE Lifscn nterpretive Medical TESTING Data: Center Upper Reportable Limit: 200 mg/dL. BEDSIDE Comment1 Notify 07/21 [facility] GLUCOSE RN/MD /2011 Medical TESTING Center URINALYSIS UA Ketones TR 07/21 [facility] URINALYSIS UA 0.1 - 1.0 07/21 [facility] Urobilinogen /2011 [facility] Center URINALYSIS UA Color Yellow Yellow 07/21 NA [facility] Medical (07/20/2012 19:10:00) Ce nter URINALYSIS UA Protein 20 mg/dL Negative 07/21 ABN Medical (07/20/2012 19:10:00) Ce nter URINALYSIS UA pH 6.5 5.0 - 8.0 07/21 Normal [facility] URINALYSIS UA Glucose Negative mg/dL Negative 07/21 NA [facility] Medical (07/20/2012 19:10:00) Ce nter URINALYSIS UA Spec Grav 1.020 <=1.030 07/21 Normal [facility] URINALYSIS UA Turbidity Slight Clear 07/21 [facility] Medical (07/20/2012 19:10:00) Ce nter URINALYSIS UA Nitrite Negative Negative 07/21 Normal [facility] (07/20/2012 19:10:00) [facility] URINALYSIS UA Leuk Est Trace Negative 07/21 ABN Medical (07/20/2012 19:10:00) Ce nter URINALYSIS UA Sq Epi Many /LPF Few 07/21 ABN Medical (07/20/2012 19:10:00) Ce nter URINALYSIS UA Blood Small Negative 07/21 [facility] Medical (07/20/2012 19:10:00) Ce nter URINALYSIS UA Bili Negative Negative 07/21 NA Medical (07/20/2012 19:10:00) Ce nter URINALYSIS UA Amorph Occasional /HPF None Seen 07/21 NA [facility] [place] [facility] Jaimee * Medical (07/20/2012 19:10:00) Ce nter URINALYSIS UA Mucus Few /LPF None Seen 07/21 [facility] Medical (07/20/2012 19:10:00) Ce nter URINALYSIS UA Bacteria Few /HPF None Seen 07/21 NA [place] as * Medical (07/20/2012 19:10:00) Ce nter URINALYSIS UA RBC 1 0 - 2 07/21 Normal [facility] Center URINALYSIS UA WBC 6 0 - 5 07/21 HI [facility] URINALYSIS UA Hyal Cast 1 0 - 2 07/21 Normal [facility] BEDSIDE Comment1 Notify 07/20 NA [facility] GLUCOSE RN/MD Medical TESTING Center BEDSIDE Gluc POC 86 70 - 99 07/20 Normal <sup>3</sup>I [facility] GLUCOSE Lifscn nterpretive Medical TESTING Data: Center Upper Reportable Limit: 200 mg/dL. CHEMISTRY AGAP 14.7 10.0 - 07/20 Normal [facility] 20.0 [facility] CHEMISTRY eGFR 88 07/20 NA <sup>5</sup>R [...] values reflect the clinical guidelines
of the [place] [employer]. CHEMISTRY BUN 13 7 - 22 07/20 Normal [facility] CHEMISTRY Creatinine 0.8 0.5 - 1.4 07/20 Normal [facility] Lvl [facility] CHEMISTRY Sodium Lvl 137 135 - 145 07/20 Normal [facility] CHEMISTRY Potassium Lvl 3.7 3.5 - 5.1 07/20 Normal [place] as [facility] CHEMISTRY Chloride Lvl 97 95 - 109 07/20 Normal [facility] CHEMISTRY CO2 29 24 - 32 07/20 Normal Medical Center CHEMISTRY Calcium Lvl 8.3 8.5 - 10.5 12 [place] [facility] HEMATOLOGY Monocytes # 0.7 0.0 - 0.8 12 [place] [facility] HEMATOLOGY Lymphocytes # 4.3 1.0 - 5.5 12 [place] [facility] HEMATOLOGY Segs-Bands # 6.9 1.5 - 8.1 12 Normal [place] [facility] HEMATOLOGY Basophils 0.8 0.0 - 1.0 12 Normal [place] [facility] HEMATOLOGY Eosinophils 1.2 0.0 - 4.0 12 [place] [facility] HEMATOLOGY Basophils # 0.1 0.0 - 0.2 07/20 [place] [facility] HEMATOLOGY Eosinophils # 0.1 0.0 - 0.5 07/20 [place] [facility] HEMATOLOGY Monocytes 5.6 2.0 - 12.0 12 Normal [facility] HEMATOLOGY Lymphocytes 35.7 20.0 - 12 Normal [place] 40.0 /2011 Medical Center HEMATOLOGY Segs 56.7 45.0 - 12 Normal [place] 75.0 /2011 Medical Center HEMATOLOGY MCV 88.3 81.0 - 12 Normal [place] 99.0 /2011 [facility] Center HEMATOLOGY Hct 41.1 36.0 - 12 Normal [place] 48.0 /2011 Medical Center HEMATOLOGY Hgb 13.7 12.0 - 12 Normal [place] 16.0 /2011 [facility] HEMATOLOGY RBC 4.66 4.20 - 12 Normal [place] 5.40 /2011 Medical Center HEMATOLOGY WBC 12.2 3.7 - 10.4 12 HI [facility] Center HEMATOLOGY MPV 6.8 7.4 - 10.4 12 LOW [facility] HEMATOLOGY Platelet 571 133 - 450 12 [facility] HEMATOLOGY RDW 15.6 11.5 - 12 HI [place] 14.5 [facility] HEMATOLOGY MCHC 33.3 32.0 - 12 Normal [place] 36.0 Medical [place] HEMATOLOGY MCH 29.4 27.0 - 12 Normal [place] 31.0 [facility] Center BLOOD BANK Antibody Scrn Negative 07/19 Normal [facility] Tommy as RESULTS (07/19/2012 07:30:00) /2011 [facility] BLOOD BANK ABO/Rh O POS 07/19 Unknown [facility] RESULTS [facility] CHEMISTRY Total CK 62 12 - 191 07/19 Normal [facility] CHEMISTRY eGFR 67 07/19 NA <sup>6</sup>R [...] CO2 30 24 - 32 07/19 Normal [facility] CHEMISTRY Calcium Lvl 8.8 8.5 - 10.5 07/19 Normal [facility] CHEMISTRY BUN 12 7 - 22 07/19 Normal [facility] CHEMISTRY Creatinine 1.0 0.5 - 1.4 07/19 Normal [facility] Center CHEMISTRY Glucose Lvl 106 70 - 99 07/19 HI <sup>9</sup>I T ex nterpretive Medical Data: Adult Center reference range values reflect the clinical guidelines
of the [place] [employer]. CHEMISTRY Potassium Lvl 4.1 3.5 - 5.1 07/19 Normal [facility] Center CHEMISTRY Chloride Lvl 99 95 - 109 07/19 Normal [facility] Center CHEMISTRY Sodium Lvl 138 135 - 145 07/19 Normal [facility] CHEMISTRY AGAP 13.1 10.0 - 07/19 Normal [facility] 20.0 [facility] Center CHEMISTRY Troponin-I <0.02 0.00 - 07/19 Normal [place] 0.40 /2011 [facility] HEMATOLOGY Anisocyte 1+ None Seen 07/19 ABN [facility] *ABN* Medical (07/19/2012 07:30:00) Ce nter HEMATOLOGY Atypical 0.0 <=0.0 07/19 Normal [facility] Lymphs [facility] HEMATOLOGY Large Plt Slight None Seen 07/19 ABN [facility] *ABN* Medical (07/19/2012 07:30:00) Ce nter HEMATOLOGY Polychrom Slight None Seen 07/19 Normal [facility] (07/19/2012 07:30:00) Ne dicmo Center HEMATOLOGY Bands 0.0 0.0 - 11.0 12 Normal [facility] HEMATOLOGY Monocytes 4.0 2.0 - 12.0 07/19 Normal [facility] HEMATOLOGY Lymphocytes 30.0 20.0 - 07/19 Normal [place] 40.0 [facility] HEMATOLOGY Eosinophils 1.0 0.0 - 4.0 07/19 [place] [facility] HEMATOLOGY Lymphocytes # 5.4 1.0 - 5.5 07/19 [place] [facility] HEMATOLOGY Segs-Bands # 11.8 1.5 - 8.1 07/19 [place] [facility] HEMATOLOGY Eosinophils # 0.2 0.0 - 0.5 07/19 [place] [facility] HEMATOLOGY Monocytes # 0.7 0.0 - 0.8 07/19 [place] [facility] HEMATOLOGY Segs 65.0 45.0 - 07/19 Normal [facility] 75.0 [facility] HEMATOLOGY INR 0.97 0.85 - 07/19 Normal <sup>11</sup> [place] 1.17 Interpretive Medical Data: Center RECOMMENDED RANGES FOR PROTIME INR:
2.0-3.0 for most medical and surgical thromboemboli c states.
2.5-3.5 for artificial heart valves and recurrent embolism.<br/ >
INR SHOULD BE USED ONLY FOR PATIENTS ON STABLE ANTICOAGULANT THERAPY. HEMATOLOGY PT 13.1 12.0 - 12 Normal [place] 14.7 [facility] HEMATOLOGY Estimated % 4.1 0.0 - 7.5 07/19 [place] [facility] HEMATOLOGY Rapid TEG Citrated 12/02 NA [facility] Sample Type [facility] Blood [place] HEMATOLOGY ACT (TEG) 113 86 - 118 07/19 Normal [facility] HEMATOLOGY [place] 0.6 07/19 NA [facility] HEMATOLOGY Angle 82 64 - 80 07/19 [facility] HEMATOLOGY Max Amp 81 52 - 71 07/19 [facility] HEMATOLOGY K-time 0.8 0.6 - 2.3 07/19 Normal [facility] HEMATOLOGY G-value 20.9 5.0 - 11.6 07/19 [facility] HEMATOLOGY R-time 0.7 0.4 - 0.7 07/19 Normal [facility] HEMATOLOGY PTT 32.1 22.9 - 12 Normal <sup>[place]</sup[place] 35.8 /2011 Interpretive Medical Data: Heparin Center Therapeutic Range: 57 - 92 [facility] HEMATOLOGY Hgb 15.0 12.0 - 12 Normal [facility] 16.0 /2011 [facility] HEMATOLOGY RBC 5.06 4.20 - 12 Normal [facility] 5.40 /2011 [facility] HEMATOLOGY RDW 14.8 11.5 - 12 [facility] 14.5 /2011 [facility] HEMATOLOGY MCHC 33.3 32.0 - 12/ Normal [facility] 36.0 /2011 [facility] HEMATOLOGY WBC 18.1 3.7 - 10.4 12 [facility] HEMATOLOGY Hct 44.9 36.0 - 12/ Normal [facility] 48.0 /2011 [facility] HEMATOLOGY MPV 7.1 7.4 - 10.4 12 LOW [facility] HEMATOLOGY MCH 29.5 27.0 - 12/ Normal [facility] 31.0 /2011 [facility] HEMATOLOGY MCV 88.8 81.0 - 12/ Normal [facility] 99.0 /2011 [facility] HEMATOLOGY Platelet 634 133 - 450 12 [facility] Pathology Reports No Data Provided for This Section Diagnostic Reports Report Value Date Source Brain wo contrast MRI EXAM: MRI BRAIN WITHOUT CONTRAST 9 [facility] Medical DATE: 03/10/2019 14:02 CDT Center [...] EXAM: CTA CHEST WITH CONTRAST 03/09/2019 [facility] [place] [facility] Embolism CTA DATE: 03/09/2019 18:09 CDT [...] MRI BRAIN WITHOUT CONTRAST 9 [facility] DATE: 03/09/2019 9:46 PM T [facility] INDICATION: - new slurred speech, [...] LUMBAR PUNCTURE UNDER FLUOROSCOP IC GUIDANCE 03/17/2015 [facility] fluoro DX [place] DATE: Mar 17, 2015 03:30:39 PM INDICATION: [...] OCTOBER 30, 2014 AT 1:40 A.M. 10/16 [facility] HISTORY: 49-year-old female with tube placement/ removal/reposition. [...] OCTOBER 29, 2014 AT 2:00 A.M. 10/16 [facility] HISTORY: 49-year-old female with abnormal chest sounds. FINDINGS: Comparison is made to October 28. The cardiomediastinal silhou ette is stable. Life support lines and tubes remain in place. Subsegmental atelectasis is seen in the left lower lobe. The costophrenic sulci are sharp, without effusions. IMPRESSION: Left lower lobe subsegmental atelect asis. Brain wo contrast MRI EXAM: MRI BRAIN WITHOUT CONTRAST 5 [facility] DATE: 10/28/2014 at 2153 hours INDICATION: Altered [...] October 28, 2014 AT 1:19 a.m. 10/16 [facility] HISTORY: 49-year-old female with tube placement/ removal/reposition. [...] AP DX INDICATION: Dobhoff tube placement. 10/27/2014 [facility] EXAM: ABDOMEN XR, 1 view. TECHNIQUE: Limited [...] October 27, 2014 a 1:15 a.m. 10/27 [facility] HISTORY: 49-year-old female with abnormal chest sounds. [...] EXAM: CT CHEST WITH IV CONTRAST 10/26/2014 [facility] DATE: Oct 26, 2014 03:26:53 PM INDICATION: [...] CT EXAMINATION: CT head without contrast. 10/16 [facility] DATE: 10/26/2014. INDICATION: Altered level of consciousness. [...] CTA ABDOMEN/PELVIS WITH INTRAVENO US CONTRAST 10/26/2014 [facility] DATE: October 26, 2014 INDICATION: Abdominal pain, [...] 1view DX PORTABLE CHEST 2014-10-26 11:56:00 10/26/2014 [facility] COMPARISON: Same day at 10:00 a.m. CLINICAL [...] DX Portable ap semierect chest 10/26/2014 10/26/2014 [facility] [facility] HISTORY: Central line placement. Comparison is m [...] EXAM: MRI OF THE BRAIN WITHOUT CONTRAST [facility] DATE:Nov 13, 2013 08:22:00 AM CLINICAL HISTORY: [...] Chest 1view EXAM: CHEST 1 VIEW 11/13/2013 [facility] DATE: Nov 13, 2013 04:17:00 AM INDICATION: CVA/TIA COMPARISON: Prior study dated 05/08/2013 TECHNIQUE: Single portable radiograph of the [facility] st FINDINGS: The cardiac silho uette is unremarkable. The lungs are clear bilaterally. The costophrenic sulci are clear and well demarcated. The osseous structures and soft tissues are unremarkable. IMPRESSION: No radiographic evidence of an acut e cardiopulmonary process. Extremity lower VENOUS DOPPLER ULTRASOUND BILATERAL LOWER EXTREM ITY: 05/10/2013 [facility] venous doppler bilat Center US CLINICAL [...] [facility] DATE: 05/10/2013. INDICATION: 47-year-old fema le [...] CT CT SCAN OF THE BRAIN 05/10/2013 [facility] DATE: 05/10/2013 at 1:56 a.m. Comparison studies: [...] CTA EXAM: HEAD AND NECK CTA 05/09/2013 [facility] DATE: May 09, 2013 12:30:00 PM CLINICAL [...] EXAM: MRI brain without contrast. 05/09/20 13 [facility] INDICATION: Facial numbness. COMPARISON: MRI July 19, [...] 2 VIEWS dated 2013-05-09 00:05:00 05/08/20 13 [facility] COMPARISON: Same day at 9:08 a.m. CLINICAL [...] Comments Source Systolic (mm Hg) 133 03/13/2019 [facility] Diastolic (mm Hg) 83 03/13/2019 [facility] Temperature Oral (F) 97.0 F 03/13/2019 [facility] Respitory Rate 14 03/13/2019 [facility] Heart Rate 98 03/12/2019 [facility] Respitory Rate 18 03/12/2019 [facility] Systolic (mm Hg) 134 03/12/2019 [facility] Diastolic (mm Hg) 83 03/12/2019 [facility] Heart Rate 95 03/12/2019 [facility] Systolic (mm Hg) 147 03/12/2019 [facility] Diastolic (mm Hg) 92 03/12/2019 [facility] Temperature Oral (F) 97.3 F 03/12/2019 [facility] Respitory Rate 18 03/12/2019 [facility] Heart Rate 98 03/12/2019 [facility] Temperature Oral (F) 97.3 F 03/12/2019 [facility] Weight 99.318 03/10/2019 [facility] Weight 97.727 03/10/2019 [facility] Height 160.02 cm 03/10/2019 [facility] BMI Calculated 38.17 03/10/2019 [facility] Center Weight 97.5 03/09/2019 [facility] BMI Calculated 32.68 03/09/2019 [facility] Center Height 172.72 cm 03/09/2019 [facility] Temperature Oral (F) 97.5 F 03/22/2015 [facility] Heart Rate 70 03/22/2015 [facility] Center Respitory Rate 17 03/22/[address] [facility] see Center Systolic (mm Hg) 102 03/22/2015 [facility] d[facility] Center Diastolic (mm Hg) 64 03/22/2015 [facility] Heart Rate 69 03/22/2015 [facility] Center Respitory Rate 17 03/22/2015 [facility] Center Temperature Oral (F) 97.4 F 03/22/2015 [facility] Center Systolic (mm Hg) 134 03/22/2015 [facility] d[facility] Center Diastolic (mm Hg) 79 03/22/2015 [facility] Systolic (mm Hg) 133 03/22/2015 [facility] Center Diastolic (mm Hg) 84 03/22/2015 [facility] Center Heart Rate 69 03/22/2015 [facility] Center Temperature Oral (F) 97.8 F 03/22/2015 [facility] Respitory Rate 17 03/22/2015 [facility] Center Weight 110.3 03/17/2015 [facility] Height 160.02 cm 03/17/2015 [facility] BMI Calculated 43.08 03/17/2015 [facility] Center Temperature Oral (F) 98.1 F 11/01/2014 [facility] Heart Rate 86 11/01/2014 [facility] Center Respitory Rate 18 11/01/2014 [facility] Center Systolic (mm Hg) 126 11/01/2014 [facility] d[facility] Center Diastolic (mm Hg) 77 11/01/2014 [facility] Temperature Oral (F) 98.6 F 10/31/2014 [facility] Center Heart Rate 83 10/31/2014 [facility] Center Respitory Rate 18 10/31/[address] [facility] see Center Systolic (mm Hg) 121 10/31/2014 [facility] Center Diastolic (mm Hg) 85 10/31/2014 [facility] ed[facility] Center Temperature Oral (F) 98.2 F 10/31/2014 [facility] Center Respitory Rate 18 10/31/[address] [facility] see Center Systolic (mm Hg) 140 10/31/2014 [facility] Center Diastolic (mm Hg) 86 10/31/2014 [facility] Center Heart Rate 68 10/31/2014 [facility] Weight 110.3 10/26/2014 [facility] BMI Calculated 43.08 10/26/[address] [facility] see Center Height 160.02 cm 10/26/2014 [facility] Center Diastolic (mm Hg) 77 11/14/2013 [facility] Center Heart Rate 96 11/14/2013 [facility] Center Systolic (mm Hg) 129 11/14/2013 [facility] Center Respitory Rate 20 11/14/[address] [facility] see Center Temperature Oral (F) 98.3 F 11/14/2013 [facility] Center Heart Rate 90 11/14/2013 [facility] Center Respitory Rate 20 11/14/[address] [facility] see Center Temperature Oral (F) 98.0 F 11/14/2013 [facility] Center Systolic (mm Hg) 132 11/14/2013 [facility] Center Diastolic (mm Hg) 84 11/14/2013 [facility] Center Diastolic (mm Hg) 75 11/14/2013 [facility] Center Systolic (mm Hg) 155 11/14/2013 [facility] Center Temperature Oral (F) 97.4 F 11/14/2013 [facility] Center Respitory Rate 17 11/14/[address] [facility] see Center Height 162.56 cm 11/13/2013 [facility] Center Weight 96.364 11/13/2013 [facility] BMI Calculated 36.47 11/13/[address] [facility] see Center BMI Calculated 37.63 11/13/[address] [facility] see Center Height 160.02 cm 11/13/2013 [facility] Weight 96.364 11/13/2013 [facility] Heart Rate 99 11/13/2013 [facility] Heart Rate 62 05/12/2013 [facility] Center Diastolic (mm Hg) 90 05/12/2013 [facility] Center Systolic (mm Hg) 158 05/12/2013 [facility] Center Respitory Rate 16 05/12/[address] [facility] see Center Diastolic (mm Hg) 90 05/12/2013 [facility] Center Systolic (mm Hg) 168 05/12/2013 [facility] Center Respitory Rate 19 05/12/[address] [facility] see Center Heart Rate 77 05/12/2013 [facility] Temperature Oral (F) 99.1 F 05/12/2013 [facility] Center Diastolic (mm Hg) 97 05/12/2013 [facility] Center Systolic (mm Hg) 156 05/12/2013 [facility] Center Respitory Rate 20 05/12/2013 [facility] Center Heart Rate 69 05/12/2013 [facility] Temperature Oral (F) 99.8 F 05/12/2013 [facility] Temperature Oral (F) 99.8 F 05/12/2013 [facility] Height 160.02 cm 05/09/2013 [facility] Weight 98.182 05/09/2013 [facility] Center Respitory Rate 18 07/22/[address] [facility] see Center Systolic (mm Hg) 115 07/22/2012 [facility] Center Diastolic (mm Hg) 62 07/22/2012 [facility] Temperature Oral (F) 98.6 F 07/22/2012 [facility] Center Heart Rate 65 07/22/2012 [facility] Diastolic (mm Hg) 61 07/21/2012 [facility] Center Systolic (mm Hg) 96 07/21/2012 [facility] Center Temperature Oral (F) 97.2 F 07/21/2012 [facility] Center Heart Rate 64 07/21/2012 [facility] Center Respitory Rate 16 07/21/2012 [facility] Center Temperature Oral (F) 98.5 F 07/21/2012 [facility] Heart Rate 64 07/21/2012 [facility] Respitory Rate 18 07/21/2012 [facility] Diastolic (mm Hg) 85 07/21/2012 [facility] [place] Systolic (mm Hg) 134 07/21/2012 [facility] [place] Weight 113.636 07/19/2012 [facility] Height 160.02 cm 07/19/2012 [facility] Encounters Location Location Encounter Encounter Reason Attending ADM DC Stat us Source Details Type Number For Visit Provider Date Date [facility] Inpatient [id number] CEREBRAL LISA 07/19 07/[address] [facility] VASCULAR ANAND /[facility] ACCIDENT Center [facility] Inpatient [id number] AMS JILLIAN 05/08 05/[address] [facility] CHERNYSHEV /2012 [facility] Inpatient [id number] _MAPID:[id number] Amrou 11/13 11/14 [facility] [id number] Yessenia /[address] Inpatient [id number] Amrou 10/26 11/01 [facility] /2014 [facility] Inpatient [id number] Atif Krell 03/16 03/23 [facility] /2014 [facility] Inpatient [id number] Cerena 03/09 03/13 [facility] Kaur /2018 [facility] Procedures Procedure Code Date Perfomer Comments Source Spinal puncture, 33748 03/17/2015 [facility] therapeutic, for Medical drainage of [place] cerebrospinal fluid (by needle or catheter) Appendectomy [id number] [facility] Cholecystectomy [id number] [facility] Ankle [id number] WITH SCREWS [facility] fusion<sup>1</sup> [facility] Appendectomy [id number] [facility] Cholecystectomy [id number] [facility] Fixation of fracture [id number] [place] using plate [facility] Hysterectomy [id number] [facility] Assessment and Plan Assessment and Plan Date Source Extracted from:Title: Stroke Progress Note 03/13/2019 [facility] Author: Bibiana Cortes MD Date: 03/12/19 Patient: Delilah Whyte Overnight: No issues overnight. Patient feels her speech has returned to her baseline. History of Present Illness: 53 yr old female with PMH of CHF, recent CVA, APLS, on ASA and Statin transferred form [place] after presenting 36 hrs post worsening neurological deficits. Pt with worsening dysarthria, left sided hem isensory loss. CTH - no evidence of evol ving ischemia - however old encephalomalacia in R-MCA territory, CTA no LVO. She was given ASA 300mg SD prior to transfer. On evaluation her BP [...] 2014. Per patient, she followed with outpatient [place] [facility] who switched her from Xarelto to aspirin. [...] off. Please call Stroke Consult Team with [facility]. Rosey Doyle MD Vascular Neurology Fellow PGY-6 Pager# [phone] Extracted from:Title: Cardiology Consult Note Author: Barb [...] K>4 and mag>2), telemetry. Barb Garza MD Honing Machine Operator Department of Internal Medicine Division of Cardiovascular Medicine Extracted from:Title: Team A History and Physical Author: Sandrita Starks MD Date: 03/10/19 53 yo F, PMHx of CVA (R MCA w/ residual dysarthria, L sided weakness), HTN, and COPD, presents to ED as transfer from OSH ([place], [place]) with worsening slurred speech and L facial [...] given 300mg ASA prior to transfer to [facility]. In ED here, pt given 1L [...] QD Diet NPO, failed dysphagia screen per DRAGLINE OPERATOR HELPER Heparin Pending clinical improvement Teaching Physician Attestation: I saw an d evaluated the patient with the resident team. I reviewed the clinical data and confirmed the findings. We formulated the assessment and plans. I agree withthis note. Dario Downs MD Extracted from:Title: General Neurology Discharge Summary [facility] Author: Yue Anderson MD Date: 03/22/15 General [...] -> 94.9 (03/16/2015). Patient tr ansferred to [facility] for HLOC given CSF analysis, interim changes in MRI, and history of APLA and CVA. Hypercoaguable lab abnormalities: ESR 55 CRP 100m protein C activity low at 68% ATIII 79% IgM anticoagulant elevated 5.2 lupus anticoagulant detected. Repeat labs done by Dr Gardiner in 07/2013 showed normal anti-carrdiolipin panel, CRP wnl and ESR 40 Hospital Course: Admitted to ICU, [facility] soon after transfer to [facility], after patient remained stable with stable exam. LP with IR, opening pressure 14. CSF showed signs of continued infection versus inf lammation: WBC 40 RBC 3 L 90 E N Glu 42 Protein 71. ID consulted, recs to continue IV acyclovir. HSV negative x2, at OSH and [facility]. Patient symptomatically improving with acyclovir, increased suspicion [...] changes insurance, would like to see in [facility] after repeat antiphospholipid antibody [...] twitc leonor. Patient was transferred [facility] for higher level of care. [...] 20:55 97.8 --- ----- 16 96 --- 08/04 19:56 ---- 89 118/73 -- --- --- [...] the past, then I would recommend a teletypesetter monitor - Repeat MRI to follow up on [...] as an transfer from [facility] for HLOC. The patient initially presented [...] hypophone, mild dysarthria, comprehension and naming intact loop tender: 2-12 intact. Right and left horizon ana [...] (286.9) 6. hyperlipidemia (272.4) Level of service: [id number] Tim John MD, PhD #[id number] Honing Machine Operator of Neurology Extracted from:Title: Clinical Document Author: [...] as an transfer from [facility] for HLOC. The patient initially presented [...] of labs from OSH (physical copy in [facility] chart): CSF results: WBC 80 RBC 0 [...] Brittni borrero. Per EMR review, her Swapnil ([id number]) is listed as her next of kin. [...] intact, repetition and naming intact. Psychogenic stutter loop tender: EOMI, PERRLA, R gaze horizontal nys tagmus, [...] Pending PT/OT evaluation Next of kin: Swapnil ([id number]) The case was discussed with the manager installation General Neurology attending Dr Dey. General Neurology is primary, please call [phone] with questions. Ashley Rosas PGY-3 [facility] Neurology NEUROLOGY ATTENDING I personally [...] verbal output on exam, but can answer [facility] (unsure which one), and her name. (3) HYPERCOAGULABLE STATE/ s/p STROKE: h ypercoagulable state: apparently (+) here and (-) at OSH. Need clarification before restarting Xarelto. (4) SEIZURES: agree w/Keppra 1000 bid. N ewly on AEDs? Agree w/dose and watching pt. DIAGNOSES ENCEPHALITIS SEIZURES APHASIA HYPERCOAGULABLE STATE CPT 93559 Extracted from:Title: Stroke Transfer Summary 11/01/2014 [facility] Author: Gael Peña MD Date: 10/31/14 Stroke [...] all questions were answered. Pablo Peña MD [facility] Family Medicine PGY-2 Extracted from:Title: Cardiology [...] concerns. Nacho Valencia MD Resident, PGY-1 Pager: [phone] CARDIOLOGY STAFF I saw and examined the [...] Ladd M.D. Extracted from:Title: Clinical Document 11/14/2013 [facility] Author: Tanmay Pedroza Date: 11/14/2013 Stroke Progress Note - Daily [facility] mpleted: Oct, 08:32 by Tanmay Pedroza [...] propylaxis Dispo - plan to transfer to [facility] for further workup, no acute stroke STROKE NEUROLOGY STAFF I have seen and examined the patient. Fu rthermore, I have discussed the case with and reviewed 's note and agree with the history, exam, assessment and plan. See note below for additions and/or exceptions and my findings. I hav e personally viewed the patient's radiographic studies and laboratory tests. Assessment / Plan: 98580 Weakness-728.87 Hypercoagulable state-289.82 Numbness-782.0 48 years old [...] coumadin with therapeutic INR. Wilberto Garcia M.D. Honing Machine Operator Dept of Neurology [phone] (pager) Extracted from:Title: Clinical Document Author: Damian Bailey Shankar Date: 11/13/2013 Neurology Stroke H&P Patient Name: Delilah Whyte Date of Admission: 11/13/13 CC: Transfer for possible ischemic stroke HISTORY OF PRESENT ILLNESS: The pt is a 48 yo F with reported PMH HT N, HLD, complex migraine, depression, ischemic stroke (04/2013, residual left FD, LUE weakness) and lupus anticoagulant (on Coumadin, per pt last INR 2.7 on 11/02) who was transferred to [facility] from [facility] for possible ischemic stroke. Per the pt, [...] time window. She was subsequently transferred to [facility] for stroke workup. On my assessment, the pt states that she continues to experience right-sided headache (but it is resolving) and left arm weakness which has n ot significantly changed since she arriv ed to [facility]. Initial NIHSS 7 (see details below). Of note, she was admitted to the [facility] service in 04/2013 for left FD and [...] The pt lives with her daughter in [place], [place]. She is from her . She [...] open/ close the eyes and then to regroover and release the non- paretic hand ____ [...] THE FOLLOWING WERE PRESENT ON ADMISSION (POA) APPLIED RESEARCH DIRECTOR Old right frontal infarct Left facial droop [...] studies and laboratory tests. Assessment / Plan: 41619 Weakness-728.87 Hypercoagulable state-289.82 Numbness-782.0 48 years old [...] has also been emphasized. Wilberto Garcia M.D. Honing Machine Operator Dept of Neurology [phone] (pager) Plan of Care No Data Provided for This Section Social History Social History Date Source Social History TypeResponse 03/17/2015 [facility] Substance Abuse Use: None. Alcohol Past, Type [...] 2 entered on: 03/10/19 1Stopped smoking in [id number] 6-12 cigarettes per day Family History No Data Provided for This Section Advance Directives No Data Provided for This Section Functional Status No Data Provided for This Section
--- OUTSIDE RECORDS SUMMARY | 2020-09-13 10:42 | XMS REPORT | Continuity of Care Document ---
:1965 Author Organization [facility] t Address [address] [place] [address] Care Team Providers Name Role Phone Shawn ANDERSON, K.H. Attending Clinician Deshaun Kaur Attending Clinician Sachin Dey Attending Clinician Radha Attending Clinician Deshaun Kaur Admitting Clinician Sachin Dey Admitting Clinician Radha Admitting Clinician Problems Condition Condition Condition Status Onset Resolution Last Treating Co mments Source Name Details Category Date Date Treatment Clinician Date STROKE Diagnosis Active 2019-03-09 Mem oria 03-09 16:26:00 l STROKE 00:00: [place] 00 Active 03/09/2019 [facility] DYSPNEA Diagnosis Active 2019-03-15 Me moria 03-09 15:12:00 l DYSPNEA 00:00: [place] 00 Active 03/09/2019 [facility] ENCEPHALIT Diagnosis Active 2015-03-23 Memoria IS/SEIZURE 03-16 15:07:00 l S 00:00: [place] ENCEPHALIT 00 IS/SEIZURE S Active 03/16/2015 [facility] NON-HEMORR Diagnosis Active 2014-11-01 Memoria AGHIC 10-25 15:25:00 l STROKE 00:00: [place] NON-HEMORR 00 AGHIC STROKE Active 10/25/2014 [facility] ISCHEMIC Diagnosis Active 2013-11-13 M emoria CVA 11-12 04:08:00 l ISCHEMIC 00:00: Enrique n CVA 00 Active 11/12/2013 [facility] WEAKNESS Diagnosis Active 2013-11-26 M emoria 11-12 21:50:00 l WEAKNESS 00:00: Enrique n 00 Active 11/12/2013 [facility] AMS Diagnosis Active 2013-06-01 Mem oria 05-08 21:46:00 l AMS 00:00: [place] 00 Active 05/08/2013 [facility] CEREBRAL Diagnosis Active 2011-082012-07-24 M emoria VASCULAR 09-19 23:24:00 l ACCIDENT CEREBRAL 00:00: Herm tin VASCULAR 00 ACCIDENT Active 07/19/2012 [facility] 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, is, [facility]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 Outpati ent Clinics Adult BMI Adult BMI Diagnosis Active [facility] 40.0-44.9 40.0-44.9 [facility] - kg/sq m kg/sq m [facility] ent Clinics Depression Depression Problem Active [facility] with with [facility] - anxiety anxiety [facility] Left Left Problem Active [facility] hemiparesi hemiparesi Mora kes - s s [facility] ent [facility]ics Obstructiv Obstructiv Problem Active C [...] ia, mixed [facility] Migraine Migraine Problem [facility] Peripheral Peripheral Problem Active [facility] vascular vascular [facility] - disease disease [facility] GERD GERD Diagnosis Active [facility] without without [facility] - esophagiti esophagiti Me moria s s l [facility] S/P CABG x S/P CABG x Problem Active [facility] 1 1 [facility] Chronic Chronic Problem Active [facility] systolic systolic [facility] - heart heart [facility]oria failure failure l [facility] Benign Benign Problem Active [facility] essential essential [facility] - HTN HTN [facility] Obesity Obesity Problem Active [facility] Cough Cough Problem Active [facility] Anticoagul Anticoagul Problem Active [facility] ated ated [facility] Chronic Chronic Problem Active [facility] back pain back pain [facility] - [facility] Stented Stented Problem Active [facility] coronary coronary [facility] - artery artery [facility] History of History of Problem Active [facility] non-ST non-ST [facility] - elevation elevation Mike sujey myocardial myocardial l infarction infarction Ou tpati (NSTEMI) (NSTEMI) ent Clinics Coronary Coronary Problem Active [facility] artery artery [facility] - disease of disease of Me moria bypass bypass l graft of graft of Outpat [place] heart with heart with Cl inics stable stable angina angina pectoris pectoris Coronary Coronary Problem Active [facility] artery artery [facility] - disease disease Memoria involving involving l [place] Out[facility]i coronary coronary ent artery of artery of Clin ics [place] heart with heart with angina angina pectoris pectoris Anxiety Problem Resolve 2019-03-14 Mem oria (finding) d 22:30:17 l Anxiety [place] (finding) Resolved Problem 03/14/2019 [facility] Antiphosph Problem Resolve 2019-03-14 Memoria olipid d 22:30:17 l syndrome [place] (disorder) Antiphosph olipid syndrome (disorder) Resolved Problem 03/14/2019 [facility] Transient Problem Resolve 2019-03-14 M emoria ischemic d 22:30:17 l attack [place] (disorder) Transient ischemic attack (disorder) Resolved Problem 03/14/2019 [facility] Gastroesop Problem Resolve 2019-03-14 Memoria hageal d 22:30:17 l reflux [place] disease Gastroesop (disorder) hageal reflux disease (disorder) Resolved Problem 03/14/2019 [facility] Hyperlipid Problem Resolve 2019-03-14 Memoria emia d 22:30:17 l (disorder) Enrique n Hyperlipid emia (disorder) Resolved Problem 03/14/2019 [facility] Nausea Problem Resolve 2019-03-14 Mike sujey (finding) d 22:30:17 l Nausea [place] (finding) Resolved Problem 03/14/2019 [facility] Chronic Problem Active 2019-03-14 Mike sujey obstructiv 22:30:17 l e lung Chronic [place] disease obstructiv (disorder) e lung disease (disorder) Active Problem 03/14/2019 [facility] Cerebrovas Problem Active 2019-03-14 M emoria cular 22:30:17 l accident [place] (disorder) Cerebrovas cular accident (disorder) Active Problem 03/14/2019 [facility] Depression Problem Active 2015-03-25 M emoria - motion 01:09:45 l (qualifier Enrique n value) Depression - motion (qualifier value) Active Problem 03/25/2015 [facility] Asthenia Problem Active 2019-03-14 Mem oria (finding) 22:30:17 l Asthenia Enrique n (finding) Active Problem 03/14/2019 [facility] Hypertensi Problem Active 2019-03-14 M emoria ve 22:30:17 l disorder, [place] systemic Hypertensi arterial ve (disorder) disorder, systemic arterial (disorder) Active Problem 03/14/2019 [facility] Migraine Problem Active 2019-03-14 Mem oria (disorder) 22:30:17 l Migraine Enrique n (disorder) Active Problem 03/14/2019 [facility] Anxiety Problem Active 2013-05-14 Mike sujey 21:29:09 l Anxiety [place] Active Problem 05/14/2013 [facility] COPD Problem Active 2013-05-14 Memor ia 21:29:09 l COPD [place] Active Problem 05/14/2013 [facility] Depression Problem Active 2013-05-14 M emoria 21:29:09 l [place] Depression Active Problem 05/14/2013 [facility] General Problem Active 2013-05-14 Mike sujey weakness 21:29:09 l General [place] weakness Active Problem 05/14/2013 [facility] Hypertensi Problem Active 2013-05-14 M emoria on 21:29:09 l [place] Hypertensi on Active Problem 3 [facility] Migraine Problem Active 2013-05-14 Mem oria 21:29:09 l Migraine Enrique n Active Problem 05/14/2013 [facility] Stroke Problem Active 2013-05-14 Memor ia 21:29:09 l Stroke [place] Active Problem 05/14/2013 [facility] Morbid Problem Active 2019-03-14 Memor ia obesity 22:30:17 l (disorder) Morbid Herm tin obesity (disorder) Active Problem 03/14/2019 [facility] CVA Diagnosis Active 2014-11-01 Mem oria 15:25:00 l CVA [place] Active [facility] ALTERED Diagnosis Active 2013-06-01 Me moria MENTAL 21:46:00 l STATUS ALTERED [place] MENTAL STATUS Active [facility] MALAISE Diagnosis Active 2013-11-26 Me moria AND 21:50:00 l FATIGUE MALAISE Enrique n NEC AND FATIGUE NEC Active [facility] FEBRILE Diagnosis Active 2015-03-23 Me moria CONVULSION 15:07:00 l S NOS FEBRILE [place] CONVULSION S NOS Active [facility] DYSPNEA, Diagnosis Active 2019-03-15 M emoria UNSPECIFIE 15:12:00 l D DYSPNEA, Enrique n UNSPECIFIE D Active [facility] Allergies, Adverse Reactions, Alerts Allergy Allergy Status Severity Reaction(s) Onset Inactive Treating Comm ents Source Name Type Date Date Clinician Toradol Adverse Active Info Not [facility] Reaction [facility] Stadol Adverse Active Info Not [facility] Reaction Available [facility] Lyrica Adverse Active Info Not [facility] Reaction Available [facility] Ibuprofe Adverse Active Info Not [facility] n Reaction Available [facility] Divalpro Adverse Active Info Not [facility] ex Reaction Available [facility] - Sodium [facility] Compazin Compazin Active Memori a e e l [place] Depakote Depakote Active Memori a l [place] labetalo labetalo Active Memori a l l l [place] NSAIDs NSAIDs Active Memoria l [place] Stadol Stadol Active Memoria l [place] Toradol Toradol Active Memoria l [place] Vicoprof Vicoprof Active Memori a en en rudy Rees Social History Social Habit Start Date Stop Date Quantity Comments Source Social History 2015-03-17 2015-03-17 [facility] ermann 07:18:43 07:18:43 Medications Ordered Filled Start Stop Current Ordering Indication Dosage Frequency Signature Comments Components Source Medication Medication Date Date Medication? Clinician (SIG) Name Name Omeprazole Omeprazole Yes James [address] 8-11 [place] 30 minutes [facility] - 00:00: before Memoria 00 morning l meal Outpati ent Clinics lisinopril 2018- Yes 10 mg = 1 Me moria 10 mg oral 7-26 tab, PO, l tablet 20:52: Daily, # [place] 00 30 tab, 2 Refill(s) aripiprazol Yes [...] s with feeding tube less than 14 Moroccan (Dobhoff, J-tube etc) and pediatric and patients. [...] s with feeding tube less than 14 [place]oc[place] (Dobhoff, J-tube etc) and pediatric and patients. potassium No Notes: Memori a chloride 7-25 (Same as: l 14:30: Potassium Chloride) Sertraline No Notes: Memor ia 7-25 [...] WASTE: F/P l 12:23: - Sink; E - Municipal Trash Bin Potassium No Notes: Memori a Chloride 7-25 (Same as: l 1.33 MEQ/ML 11:10: Potassium H erm Oral Chloride) Solution Melatonin 3 No Notes: Mike sujey MG Extended 03-11 (Same as: l Release 02:00: Melatonin) Herm tin Tablet atorvastati No Notes: Mike sujey n 7- Same as l 02:00: Lipitor Lisinopril No Notes: Memor ia 7-24 (Same as: l 22:38: Prinivil, Zestril) heparin No Notes: Memoria 7-24 porcine l 21:00: heparin potassium No Notes: Memori a phosphate + 7-24 (Same as: l Sodium 20:30: K Chloride Phosphate. 0.9% IV 250 ) Do not [...] PO, l Tablet 05:36: Daily, # [place] [Abilify] 00 30 tab, 0 Refill(s) Lorazepam No Notes: Memori a 7-24 (Same as: l 05:32: Ativan) Albuterol No Notes: Memori a 0.833 MG/ML - (Same as: l / 05:10: Duoneb) Ipratropium 00 [place] 0.167 MG/ML Inhalant Solution Potassium No Notes: [...] Syringe 03-10 25 mL, l 03:02: Route: IVP, Drug Form: INJ, Dosing Weight 97.5, kg, PRN, PRN Blood Glucose Results, Start date: 03/09/19 22:02:00 CDT, Duration: 30 day, Stop date: 04/08/19 22:01:00 CDT, 0 Glucagon 2018-0 No 1 mg, Memoria 03-10 Route: IM, l 03:02: Drug form: [place] 00 PDR/INJ, PRN, Dosing Weight 97.5, kg, PRN Blood Glucose Results, Start date: 03/09/19 22:02:00 CDT, Duration: 30 day, Stop date: 04/08/19 22:01:00 CDT, 0 Iohexol 2018-0 No 100 mL, Memoria 03-10 Route: l 00:24: IVP, Drug [place] Form: SOLN, Dosing Weight 97.5, kg, ONCALL, STAT, Start date: 03/09/19 19:24:00 CDT, Duration: 1 doses or times, Dose = 2.2ml/kg, Max dose = 100ml -- "To be infused by Radiology Staff ONLY" Iohexol 2019-0 No 82 mL, Memoria 03-10 Route: l 00:06: IVP, Drug [place] Form: SOLN, Dosing Weight 97.5, kg, ONCALL, STAT, Start date: 03/09/19 19:06:00 CDT, Duration: 1 doses or times, Dose = 2.2ml/kg, Max dose = 100ml -- "To be infused by Radiology Staff ONLY" heparin No Notes: Memoria additive 03-09 Total l 25,000 unit 23:37: Concentrat [place] [12 ion = 50 unit/kg/hr] unit/mL; + Premix Total Diluent volume = Sodium 500 mL Chloride Send Med 0.45% 500 Request 2 mL hours prior to next bag Heparin No Route: Memor ia unit/kg 03-09 IVP, PRN, l Bolus 23:37: 2,300 [place] (Heparin 00 unit, 2.3 Dosing mL, Drug Weight) form: INJ, PRN, Heparin Protocol, Start date: 03/09/19 18:37:00 CDT Stop date: 04/08/19 18:36:00 CDT, 30 day, 0 Heparin - 2019-0 No 4,000 Memoria one time -23 unit, 4 l bolus for 23:37: mL, Route: Dangelo rmtin ACS 00 IVP, Drug form: INJ, ONCE, Dosing Weight 97.5, kg, Priority: STAT, Start date: 03/09/19 18:37:00 CDT, Stop date: 03/09/19 18:37:00 CDT, 0 Heparin 60 No Route: Memor ia unit/kg 03-09 IVP, PRN, l Bolus 23:37: 4,600 [place] (Heparin 00 unit, 4.6 Dosing mL, Drug Weight) form: INJ, PRN, Heparin Protocol, Start date: 03/09/19 18:37:00 CDT Stop date: 04/08/19 18:36:00 CDT, 30 day, 0 Plavix No Notes: Memoria 03-09 (Same as: l 23:09: Plavix) [place] Magnesium No Notes: Memori a Sulfate 03-09 WASTE: F/P l 22:41: - Sink; E [place] [facility] Bin potassium No 40 mEq, 2 Mem oria chloride 20 03-09 tab, l mEq oral 22:41: Route: PO, [place] tablet, 00 Drug form: extended ERTAB, release ONCE, Dosing Weight 97.5, kg, Priority: STAT, Start date: 03/09/19 17:41:00 CDT, Stop date: 03/09/19 17:41:00 CDT, 0 Isolyte S No Notes: Memori a PH-7.4 03-09 (Same as: l (Bolus) IV 22:38: Isolyte S [facility] PH 7.4) Acetaminoph No Notes: Do M emoria en 03-22 not exceed l 20:05: 4 gm/day. [place] 00 (Same as: Tylenol) rivaroxaban Yes 20 mg = 1 M emoria 20 MG Oral 8-05 tab, PO, l Tablet 19:41: QPM, # 30 Enrique n [Xarelto] 00 tab, 0 Refill(s) lisinopril Yes 20 mg = 1 Me moria 20 mg oral 8-05 tab, PO, l tablet 19:27: BID, # 60 Enrique n 00 tab, 1 Refill(s) valACYclovi Yes 1 gm = 1 Me moria r 1 g oral 05 tab, PO, l tablet 19:27: Q8H, X 14 Enrique n 00 day, # 42 tab, 0 Refill(s) atorvastati Yes 80 mg = 1 M emoria n 80 mg 05 tab, PO, l oral tablet 19:27: Bedtime, # [place] 00 30 tab, 1 Refill(s) Levetiracet Yes 1,000 mg = Memoria am 1000 MG 05 1 tab, PO, l Oral Tablet 19:27: BID, # 60 H ermann 00 tab, 2 Refill(s) Rocephin No 1 gm, Memoria 03-22 Route: l 13:00: IVPB, Drug form: PDR/INJ, [id number], Dosing Weight 110.3, kg, Start date: 03/22/15 [...] Oxide 03-19 (Same as: l 12:03: Mag-Ox [place] 400) Magnesium oxide 231wn=142t g elemental magnesium Dose=____m g magnesium oxide (___mg elemental magnesium) Potassium No Notes: Memori a Chloride 03-19 (Same as: l 1.33 MEQ/ML 12:02: Potassium H ermann Oral 00 Chloride) Solution Lipitor No Notes: Memoria 03-18 Same as l 14:00: Lipitor Haloperidol No Notes: Mike sujey 7-31 (Same as: l 22:00: Haldol) [place] 00 Sertraline No Notes: Memor ia 7-31 (Same as: l 22:00: Zoloft) pregabalin No Notes: Memor ia 7-31 Same as l 22:00: Lyrica Wellbutrin No Notes: Memor ia 7-31 (Same As: l 16:45: Wellbutrin ) pantoprazol No Notes: Mike sujey e 7- Tablet l 16:45: should not be chewed or crushed. (Same as: Protonix) Keppra No Notes: Memoria 7-31 (Same l 16:03: as:Keppra) Topamax No Notes: Memoria 7-31 (Same As: l 14:00: Topamax) potassium No Notes: Memori a chloride 03-17 (Same as: l 05:11: Potassium Chloride) heparin No Notes: Memoria 7- porcine l 05:00: heparin Keppra + No Notes: Memoria Sodium 03-17 Same as l Chloride 04:00: Keppra 0.9% IV 100 00 Mix with mL 100 mL NS, LR or D5W MEDICATION WASTE Product Size: 500 mg Product Wasted: ___ mg Lisinopril No Notes: Memor ia 03-17 (Same as: l 03:37: Prinivil, Zestril) Hydralazine No Notes: Mike sujey -31 (Same as: l 03:36: Apresoline ) Push [...] 04/15/15 21:00:00 Acyclovir No Notes: Memori a 7-31 (Same as: l 03:00: Zovirax) [place] 00 MEDICATION WASTE Product Size: 500 mg Product Wasted: _0__ mg normal No 1,000 mL, Memori a saline 0.9% 03-17 Rate: 100 l IV 1,000 mL 02:31: ml/hr, Herm tin Infuse over: 10 hr, Route: IV, Dosing Weight 110.3 kg, Total Volume: 1,000, Start date: 03/16/15 21:31:00, Duration: 30 day, Stop date: 04/15/15 21:30:00 Valproate No 500 mg, Memor ia Sodium 100 731 IV, Q8H, 0 l mg/mL 01:17: Refill(s) [place] intravenous 00 solution haloperidol No 2 mg = 1 Me moria 2 mg oral 7-31 tab, PO, l tablet 01:17: BID, 0 [place] 00 Refill(s) Folic Acid No 1 mg = 1 Mem oria 1 MG Oral 7-31 tab, PO, l Tablet 01:17: Daily, # [place] 00 30 tab, 0 Refill(s) pantoprazol Yes 40 mg = 1 M emoria e 40 mg 7-31 tab, PO, l oral 01:17: Daily, # [place] enteric 00 30 tab, 0 coated Refill(s) tablet triazolam No 0.25 mg = Mem oria 0.25 mg 7-31 1 tab, PO, l oral tablet 01:17: Daily, PRN [place] 00 Sleep, 0 Refill(s) NS w/K20 No Special Memori a 7-31 Instructio l 01:17: ns: 70 [place] 00 mls/hr atorvastati No 80 mg = 1 M emoria n 80 mg 7-31 tab, PO, l oral tablet 01:17: Bedtime, # [place] 00 30 tab, 0 Refill(s) topiramate Yes 50 mg = 1 Me moria 50 MG Oral 7-31 tab, PO, l Tablet 01:17: BID, # 60 Enrique n [Topamax] 00 tab, 0 Refill(s) ondansetron No 4 mg, IV, M emoria 2 mg/mL 7 PRN, # 1 l injectable 01:17: ea, 0 Enrique n solution 00 Refill(s) sertraline Yes 100 mg = 1 M emoria 100 mg oral 03-17 tab, PO, l tablet 01:17: BID, 0 [place] 00 Refill(s) thiothixene No 2 mg = 1 Me moria 2 mg oral 03-17 cap, PO, l capsule 01:17: BID, 0 [place] 00 Refill(s) acyclovir No IV, Q8H, 0 Me moria 500 mg 03-17 Refill(s) l intravenous 01:17: Enrique n injection 00 Methocarbam No 250 mg, Mem oria ol 03-17 PO, BID, 0 l 01:17: Refill(s) [place] 00 Acetaminoph No 650 mg, Mem oria en 03-17 PO, PRN, 0 l 01:17: Refill(s) [place] 00 lisinopril No 20 mg = 1 Me moria 20 mg oral 31 tab, PO, l tablet 01:17: BID, 0 [place] 00 Refill(s) pregabalin Yes 50 mg = 1 Me moria 50 mg oral 03-17 cap, PO, l capsule 01:17: BID, # 60 Laiza nn 00 cap, 1 Refill(s) cefTRIAXone No 1 gm, IV, M emoria 1 g 03-17 Q12H, # 10 l injection 01:17: ea, 0 [place] 00 Refill(s) Levofloxaci No 500 mg, Mem oria n 3-17 Route: PO, l 14:00: Drug form: [place] TAB, Daily, Dosing Weight 110.3, kg, Start date: 11/01/14 9:00:00, Duration: 30 day, Stop date: 11/30/14 9:00:00 Metronidazo 2014-0 No 500 mg, 1 M emoria le 500 MG 3-17 tab, l Oral Tablet 05:00: Route: PO, [place] 00 Drug form: TAB, Q8H, Dosing Weight 110.3, kg, Start date: 11/01/14 0:00:00, Duration: 30 day, Stop date: 11/30/14 16:00:00 Metronidazo 2014-0 Yes 500 mg = 1 Memoria le 500 MG 3-17 tab, PO, l Oral Tablet 00:45: Q8H, # 21 H ermann 09 tab, 0 Refill(s) levofloxaci 2014-0 Yes 500 mg = 1 Memoria n 500 mg 3-17 tab, PO, l oral tablet 00:43: Daily, # 7 [place] 56 tab, 0 Refill(s) rivaroxaban Yes 20 mg = 1 M emoria 20 MG Oral 3-17 tab, PO, l Tablet 00:43: QPM, # 30 Enrique n [Xarelto] 47 tab, 6 Refill(s) lisinopril 0 Yes 40 mg = 1 Me moria [...] 30 day, Stop date: 11/30/14 16:35:00 rivaroxaban 2015-0 No 20 mg = 1 M emoria [...] l oral tablet 21:32: Daily, # 7 [place] 00 tab, 0 Refill(s) Wellbutrin No Notes: Memor ia 3-16 (Same As: l 02:00: Wellbutrin ) Topamax No Notes: Memoria 3-16 (Same As: l 02:00: Topamax) "Do Not Crush" sennosides, No Notes: Mike sujey ALF 3-16 (Same as: l 02:00: Senokot) metoprolol [...] moria 3-15 infuse l 14:00: over 2.5 [place] 00 hours Vancomycin FOR IV SET ONLY [...] 10/29/14 4:00:00, Stop date: 10/29/14 4:00:00 Calcium 2014- No 1,000 mg, Memor ia Chloride 3-13 Route: l 23:32: IVPB, ONCE, Dosing Weight 110.3, kg, Start date: 10/28/14 18:32:00, Stop date: 10/28/14 18:32:00 Vancomycin No 2000 mg: Me moria 3-13 infuse l 23:00: over 2.5 [place] 00 hours Vancomycin FOR IV SET ONLY Vancomycin No 2000 mg: Me moria 3-13 infuse l 22:00: over 2.5 [place] 00 hours Vancomycin FOR IV SET ONLY Ativan No 2 mg, Memoria 3-13 Route: IV, l 18:49: ONCE, [place] 00 Dosing Weight 110.3, kg, Start date: 10/28/14 13:49:00, Stop date: 10/28/14 13:49:00 sodium No Notes: Memoria phosphate + 3-13 (Same as: l Sodium 10:00: Na [place] Chloride 00 Phosphate, 0.9% IV 250 Na PO4) mL potassium No Notes: Memori a chloride 3-13 (Same as: l 09:30: Potassium [place] 00 Chloride) magnesium No 2 gm, 50 Mike sujey sulfate 3-13 mL, Route: l 09:30: IVPB, Drug [place] 00 form: INJ, ONCE, Start date: 10/28/14 4:30:00, Stop date: 10/28/14 4:30:00 docusate No Notes: Memoria sodium 150 3-13 (Same as: l mg/15 mL 02:00: Colace) Enrique n oral liquid 00 chlorhexidi No Notes: Mike sujey ne 3-12 (Same As: l gluconate 17:00: Peridex) Herm tin 1.2 MG/ML 00 Mouthwash NS 1,000 mL No 1,000 mL, M emoria 3-12 Rate: 100 l 16:29: ml/hr, [place] 00 Infuse over: 10 hr, Route: IV, Dosing Weight 110.3 kg, Total Volume: 1,000, Start date: 10/27/14 11:29:00, Duration: 30 day, Stop date: 11/26/14 11:28:00 pantoprazol No Notes: Mike sujey e 3-12 Same as: l 14:00: Protonix [place] 00 Protonix No Notes: Memoria 3-12 Tablet l 14:00: should not [place] 00 be chewed or crushed. (Same as: Protonix) Propofol 10 No Notes: If M emoria MG/ML 3-12 Diprivan - l Injectable 12:02: change Aliza nn Suspension 00 bottle & tubing every 12 hr Per state nursing law propofol can only be given by a nurse if patient is intubated or being intubated (unless the nurse is a CONTINUOUS IMPROVEMENT LEAD). Same as: Diprivan sodium No Notes: Memoria bicarbonate 12 (sodium l 75 mEq + 07:02: bicarb [place] Sodium 00 8.4% (1 Chloride mEq/ml) 50 0.45% IV ml VL) 925 mL ketAMINE No Notes: Per Mem oria 500 mg + 12 state l Sodium 06:53: nursing [place] Chloride 00 law 0.9% IV 245 ketamine mL can only be given by a nurse if patient is intubated or being intubated (unless the nurse is a CONTINUOUS IMPROVEMENT LEAD). Keppra No Notes: Memoria 3-12 Same as: [...] before hanging" sennosides, No Notes: Mike sujey ALF 3-11 (Same as: l 22:00: Senokot) [place] 00 Lipitor No Notes: Memoria 10-26 Same as l 22:00: Lipitor Xarelto No Notes: Memoria 10-26 (Same as: l 22:00: Xarelto) [place] Administer with food chlorhexidi No Notes: Mike [...] Mem oria 10-26 state l 21:49: nursing [place] law ketamine can only be given by a nurse if patient is intubated or being intubated (unless the nurse is a CONTINUOUS IMPROVEMENT LEAD). lidocaine No Notes: Memori a 1% 10-26 (Same as: l 21:26: Xylocaine) Ketamine No Notes: Per Mem oria 10-26 state l 21:00: nursing [place] 00 law ketamine can only be given by a nurse if patient is intubated or being intubated (unless the nurse is a CONTINUOUS IMPROVEMENT LEAD). Calcium No 1,000 mg, Memor ia Chloride 10-26 10 mL, l 20:40: Route: [place] 00 IVPB, ONCE, Dosing Weight 110.3, kg, Start date: 10/26/14 15:40:00, Stop date: 10/26/14 15:40:00 Iohexol No Special Memoria 10-26 Instructio l 20:24: ns: Dose = [place] 00 2.2ml/kg, Max dose = 100ml -- "To be infused by Radiology Staff ONLY" Ketamine No Notes: Memoria 311 Total l 19:23: Concentrat [place] 00 ion = 1mg/ml Total Volume = [...] 3-11 (Same as: l 18:54: Amidate). [place] 00 Per state nursing law etomidate can only be given by a nurse if patient is intubated or being intubated (unless the nurse is a CONTINUOUS IMPROVEMENT LEAD). sodium No Notes: Memoria bicarbonate 3-11 (sodium l 8.4% 18:53: bicarb [place] 00 8.4% (1 mEq/ml) 50 ml syringe) Succinylcho No Notes: Mike sujey line 3-11 Same as: l 18:53: Anectine [place] 00 Fentanyl No 1,000 Memoria 3-11 microgram, l 18:52: 20 mL, [place] 00 Rate: Titrate as directed, Dosing Weight 110.3, kg, Route: IV, Total Volume: 20 mL, Start Date: 10/26/14 13:52:00, Duration: 30 day, Stop date: 11/25/14 13:51:00, Replace Every: 24 hr Midazolam 1 No Notes: Mike sujey MG/ML 3-11 (Same as: l Injectable 18:52: Versed) Herm tin Solution 00 Insulin No Notes: Memoria regular 100 3-11 (Same as: l unit + 18:38: Humulin R Enrique n Sodium 00 and Chloride NovoLIN R) 0.9% (Do not (titrate) shake) 99 mL Dextrose No 6.25 gm, Memor ia 50% Syringe -11 12.5 mL, l 18:38: Route: [place] 00 IVP, Drug Form: INJ, Dosing Weight [...] 11/25/14 13:19:00 Magnesium No 2 gm, 50 Mike sujey Sulfate [...] Memoria 3-11 (Same as: l 15:00: Flagyl) [place] 00 Avoid alcohol. cefepime No Notes: Memoria 3-11 (Same As: l 15:00: Maxipime) [place] 00 Vancomycin No 2001 mg: Me moria 3-11 infuse l 14:08: over 2.5 [place] 00 hours Vancomycin FOR IV SET ONLY PlasmaLyte No 2,000 mL, Me moria A PH-7.4 3-11 Rate: l 2,000 mL 14:06: 2,000 [place] 00 ml/hr, Infuse over: 1 hr, Route: IV, Dosing Weight 110.3 kg, Total Volume: 2,000, Start date: 10/26/14 9:06:00, Duration: 30 day, Stop date: 11/25/14 9:05:00 Wellbutrin No Notes: Memor ia 3-11 (Same As: l 14:00: Wellbutrin [place] 00 ) Haldol No Notes: Memoria 3-11 (Same as: l 14:00: Haldol) [place] 00 Topamax No Notes: Memoria 3-11 (Same As: l 14:00: Topamax) [place] 00 "Do Not Crush" Saline No Notes: Memoria Flush 0.9% 3-11 (Same as: l 14:00: BD [place] 00 Posiflush) docusate No Notes: Memoria sodium 100 3-11 (Same as: l mg oral 14:00: Colace) [place] capsule 00 pneumococca No Notes: Mike sujey [...] Levophed No Notes: Not Mem oria Bitartrate 11 for direct l 32 mg + 13:42: administra Herm tin Sodium 00 tion - Chloride DILUTE. 0.9% Protect (titrate) from 218 mL light. (Same as:Levophe d). Administer by either central venous catheter or peripheral ly-inserte d central catheter (PICC) line. Albumin No Notes: Lot Mike sujey Human, ALF 10-26 #: l 250 MG/ML 12:52: He rmann Injectable 00 ___ Solution Mfg: (Same as: Plasbumin- 25) "blood product derivative " Protonix No Notes: Memoria 10-26 (Same as: l 12:19: Protonix) [place] 00 Albumin No Notes: Memoria Human, ALF 10-26 LOT#: l 50 MG/ML 10:34: Her y[place] Injectable 00 ___ Solution Mfg: (Same as: Albuminar) "blood product derivative " Versed No Notes: Memoria 10-26 (Same as: l 09:00: Versed) [place] 00 magnesium No 2 gm, 50 Mike sujey sulfate 3-11 mL, Route: l 07:00: IVPB, Drug form: INJ, Q2H, Start date: 10/26/14 2:00:00, Duration: 2 doses or times, Stop date: 10/26/14 4:00:00 Iohexol No Special Memoria 10-26 Instructio l 05:56: ns: Dose = [place] 00 2.2ml/kg, Max dose = 100ml -- "To be infused by Radiology Staff ONLY" magnesium No 4 gm, 100 Mem oria sulfate 3-11 mL, Route: l 05:44: IVPB, Drug [place] 00 form: INJ, ONCE, Start date: 10/26/14 0:44:00, Stop date: 10/26/14 0:44:00 Reglan 2015-0 No Notes: Memoria 3 (Same as: l 05:21: Reglan) [place] 00 Valproic 2014- No 1,000 mg, Mike sujey Acid 100 10-26 Route: IV, l MG/ML 05:16: ONCE, [place] Injectable 00 Dosing Solution Weight 110.3, kg, Priority: NOW, Start date: 10/26/14 0:16:00, Stop date: 10/26/14 0:16:00 Dexamethaso No 10 mg, 1 Me moria ne 11 mL, Route: l 05:15: IVP, Drug [place] 00 form: INJ, ONCE, Dosing Weight 110.3, kg, Start date: 10/26/14 0:15:00, Stop date: 10/26/14 0:15:00 Reglan No 10 mg, Memoria 10-26 Route: l 05:14: IVP, Drug [place] 00 form: INJ, Q6H, Dosing Weight 110.3, kg, Priority: NOW, Start date: 10/26/14 0:14:00, Duration: 30 day, Stop date: 11/25/14 0:00:00 NS 1,000 mL No 1,000 mL, M emoria 10-26 Rate: 150 l 05:01: ml/hr, [place] 00 Infuse over: 6.7 hr, Route: IV, [...] 2014- Yes 2 mg, PO, Memori a - BID, 0 l 03:29: Refill(s) [place] 00 Bupropion Yes 200 mg = 2 [...] tab, PO, l Tablet 03:29: QPM, 0 [place] [Xarelto] 00 Refill(s) Esomeprazol No = 1 tab, Me moria e 40 MG 3-11 PO, Daily, l Enteric 03:29: 0 [place] Coated 00 Refill(s) Capsule [Nexium] 120 ACTUAT No 1 spray, Mem oria Triamcinolo -11 NASAL, l ne 03:29: Daily, # [place] Acetonide 00 17 gm, 0 0.055 Refill(s) MG/ACTUAT Nasal Inhaler [Nasacort] atorvastati Yes 80 mg = 1 M emoria n 80 MG 3-11 tab, PO, l Oral Tablet 03:29: Daily, 0 He rmann [Lipitor] 00 Refill(s) Haldol Yes 2 mg, PO, Memori a 3-11 BID, 0 l 03:28: Refill(s) [place] 00 Acetaminoph No Notes: Max Memoria en -11 acetaminop l 03:01: hen = [place] 00 4000mg/day (4 gm/day). (Same as: Tylenol) Sodium No 1,000 mL, Memori a Chloride 3-11 1,000 l 0.154 02:35: ml/hr, Cab[place] MEQ/ML 00 Infuse Injectable Over: 1 Solution hr, Route: IV, 1,000, Drug form: INJ, ONCE, Priority: STAT, Dosing Weight 96.364 kg, Start date: 10/25/14 21:35:00, Duration: 1 doses or times, Stop date: 10/25/14 21:35:00 Saline No Notes: Memoria Flush 0.9% 3-11 (Same as: l 02:33: BD [place] 00 Posiflush) Ondansetron No Notes: Mike sujey 3-11 (Same as: l 02:33: Zofran) [place] 00 NS 1,000 mL No 1,000 mL, M emoria 3-11 Rate: 100 l 02:30: ml/hr, [place] 00 Infuse over: 10 hr, Route: IV, [...] 21:27:00 Coumadin 2013-0 No 2 mg, 1 Memori a 3-30 tab, l 22:00: Route: PO, [place] 00 Drug form: TAB, Q5PM, Start date: 11/14/13 17:00:00, Duration: 1 doses or times, Stop date: 11/14/13 17:00:00Nu rse to ensure documentat ion of patient education per anticoagul ation policy. Avoid large intake of vitamin-K containing foods diet. (Same As: Coumadin) Warfarin 2013-0 No 5 mg, 1 Memori a 3-30 tab, l 22:00: Route: PO, [place] 00 Drug form: TAB, Q5PM, Dosing Weight [...] 13:00:00, Duration: 30 day, Stop date: 12/14/13 9:00:00([facility] as:Keppra) pneumococca 0 No 0.5 ml, Mem oria l capsular [...] ia 3-30 cap, l 03:09: Route: PO, [place] 00 Drug form: CAP, Bedtime, Dosing Weight 96.364, kg, PRN Insomnia, Start date: 11/13/13 22:09:00, Duration: 1 day, Stop date: 11/14/13 22:08:00(S pinky as: Benadryl) atorvastati No 80 mg, 2 Me moria n 3-30 tab, l 02:00: Route: PO, [place] 00 Drug form: TAB, [...] ensure documentat ion of patient education per critical access hospital policy. Avoid large intake of vitamin-K containing foods diet. (Same As: Coumadin) Ativan No 0.5 mg, 1 Memori a 3-29 tab, l 21:00: Route: PO, 00 Drug form: TAB, ONCE, Dosing Weight 96.364, kg, Start date: 11/13/13 16:00:00, Stop date: 11/13/13 16:00:00(S pinky as: Ativan) Ativan 0 No 0.5 mg, 1 Memori a 3-29 tab, l 20:08: Route: PO, [place] 00 Drug form: TAB, ONCE, Dosing Weight [...] 3-29 tab, PO, l tablet 17:03: Daily [place] 00 verapamil Yes 300 mg = 1 Me moria 300 mg/24 3-29 cap, PO, l hours oral 17:03: Daily Enrique n capsule, 00 extended release Saline No 5 ml, Memoria Flush 0.9% 3- Route: l 14:00: IVP, Drug Form: INJ, Dosing Weight 96.364, kg, Q12H, [...] 30 day, Stop date: 12/13/13 7:05:00([facility] as: Versed) Iohexol 2013- No 85 mL, Memoria 11-13 Route: l 11:04: IVP, Drug Form: SOLN, Dosing Weight 96.364, kg, ONCALL, STAT, Start date: 11/13/13 6:04:00, Duration: 1 doses or times, Stop date: 11/14/13 0:00:00, Dose = 2.2ml/kg, Max dose = 100ml -- "To be infused by Radiology Staff ONLY"(Same as:Omnipaq ue 350). Enoxaparin No 40 mg, 0.4 M emoria - mL, Route: l 11:00: SUB-Q, Drug form: INJ, [id number], Dosing Weight 96.364, kg, Start date: 11/13/13 6:00:00, Duration: 30 day, Stop date: 12/12/13 6:00:00([facility] as: Lovenox) Saline No 5 ml, Memoria Flush 0.9% 11-13 Route: l 10:15: IVP, Drug Form: INJ, Dosing Weight 96.364, kg, PRN, PRN Line Flush, Start date: 11/13/13 5:15:00, Duration: 30 day, Stop date: 12/13/13 5:14:00( me as: BD Posiflush) Acetaminoph No 650 mg, 2 M emoria en 11-13 tab, l 10:15: Route: PO, Drug form: TAB, Q4H, Dosing Weight 96.364, kg, PRN Pain 1-3/Temp > 99.5 F, Start date: 11/13/13 5:15:00, Duration: 30 day, Stop date: 12/13/13 5:14:00Do not exceed 4 gm/day. (Same as: Tylenol) Sodium 2013- No 1,000 mL, Memori a Chloride 11-13 [...] BID, 60 l capsule 18:40: Brown tab, [place] 33 Substituti on Allowed, CAP Zoloft 100 Yes Anna Marie 100 mg, 1 Memoria mg oral 9-25 Janey tab, PO, l tablet 18:40: Brown BID, 60 [place] 28 tab, Substituti on Allowed, TAB haloperidol Yes Anna Marie 2 mg, 1 Memoria 2 mg oral 9-25 Janey tab, PO, l tablet 18:40: Brown BID, 60 [place] 12 tab, Substituti on Allowed Wellbutrin Yes Anna Marie 100 mg, 1 Memoria 100 mg oral 9-25 Janey tab, PO, l tablet 18:39: Brown BID, 60 [place] 54 tab, Substituti on Allowed, TAB Levaquin Yes Anna Marie 750 mg, 1 M emoria 750 mg oral 9-25 Janey tab, PO, l tablet 12:12: Brown Q24H, 7 [place] 09 tab, Substituti on Allowed, TAB Flagyl [...] Flagyl No Lyndon 500 mg, Memor ia 9 Amado 100 mL, l 23:00: Bubis Route: [place] 00 IVPB, Drug form: INJ, [id number], Dosing Weight 98.182, kg, Start date: 05/10/13 18:00:00, Duration: 30 day, Stop date: 06/09/13 10:00:00 azithromyci No Lyndon 500 mg, Memoria n + Sodium - Amado Route: l Chloride 23:00: Bubis IVPB, [place] 0.9% IV 250 00 [id number], mL Dosing Weight 98.182, kg, Start date: 05/10/13 18:00:00, Duration: 30 day, Stop date: 06/08/13 18:00:00 Neutra-Phos No Anna Marie 1 pkt, M emoria 05-10 Janey Route: PO, l 22:45: Brown Drug Form: Enrique n 00 PDR/REC, Dosing Weight 98.182, kg, ONCE, Start date: 05/10/13 17:45:00, Stop date: 05/10/13 17:45:00 magnesium 2012- No Anna Marie 1 gm, Mike sujey sulfate 05-10 Janey Route: l 22:45: Brown IVPB, Drug Enrique n 00 form: INJ, ONCE, Dosing Weight 98.182, kg, [...] l 18:00: Brown Route: PO, Enrique n Drug form: ECTAB, Daily, Dosing Weight 98.182, kg, Start date: 05/10/13 13:00:00, Duration: 30 day, Stop date: 06/09/13 9:00:00 azithromyci No Lyndon 250 mg, 1 Memoria n 250 mg 05-10 Amado tab, l oral tablet 13:00: Bubis Route: PO, [place] 00 Drug form: TAB, [id number], Dosing Weight 98.182, kg, Start date: 05/10/13 8:00:00, Duration: 4 doses or times, Stop date: 05/13/13 8:00:00 Versed No Hannah 1 mg, 1 Memoria 05-10 Dom mL, Route: l 12:41: Tom IV, Drug form: INJ, ONCE, Dosing Weight 98.182, kg, Start date: 05/10/13 7:41:00, Stop date: 05/10/13 7:41:00 magnesium No Hannah 2 gm, 50 Mem oria [...] Gilderslee tab, l 02:00: lyndsey Route: PO, [place] 00 Drug form: TAB, Bedtime, Dosing Weight 113.636, kg, Start date: 05/09/13 21:00:00, Duration: 30 day, Stop date: 06/07/13 21:00:00 Mag-Ox 400 No Kamal 400 mg, 1 M emoria 05-10 Zi tab, l 00:00: Angeline Route: PO, [place] 00 Drug form: TAB, On Adm, Start date: 05/09/13 19:00:00, Duration: 1 doses or times, Stop date: 05/09/13 21:00:00 magnesium No Kamal 500 mg, Mike sujey oxide base 05-09 Zi Route: PO, l 500 mg oral 23:08: Angeline Drug form: [place] tablet 00 TAB, ONCE, Dosing Weight 98.182, kg, Start date: 05/09/13 18:08:00, Stop date: 05/09/13 18:08:00 thiamine No Brittany 100 mg, 1 M emoria [...] n 05-09 Carmen Route: PO, l 13:10: Zwiener Drug Form: Herm tin 00 TAB, Dosing [...] IVPB, Drug Enrique n 00 form: PDR/INJ, [id number], Dosing Weight 98.182, kg, Start date: 05/09/13 [...] 30 day, Stop date: 06/08/13 7:39:00 Dextrose 2013-0 No Hannah 6.25 gm, Mike sujey 50% Syringe 05-09 Dom 12.5 mL, l 12:40: Tom Route: [place] 00 IVP, Drug Form: INJ, Dosing Weight 98.182, kg, PRN, PRN Abnormal Lab Result, Start date: 05/09/13 7:40:00, Duration: 30 day, Stop date: 06/08/13 7:39:00 NS (Bolus) No Brittany 1,000 mL, Memoria IV 1,000 mL 05-09 Carmen Rate: l 12:37: Zwiener 1,000 [place] 00 ml/hr, Infuse over: 1 hr, Route: [...] Amado Rate: 150 l 03:31: Bubis ml/hr, [place] 00 Infuse over: 6.7 hr, Route: IV, Dosing Weight 113.636 kg, Total Volume: 1,000, Start date: 05/08/13 22:31:00, Duration: 30 day, Stop date: 06/07/13 22:30:00 levalbutero 2012- No Linsey 0.63 mg, 3 Memoria l [...] 30 day, Stop date: 06/07/13 9:00:00 docusate 2012- No Linsey 100 mg, 1 Memoria 05-09 [...] 30 day, Stop date: 06/07/13 17:57:00 caffeine 2012- Yes Anita Marcelino 100 mg, 1 Memoria 100 mg oral 2-04 Escalante tab, PO, l tablet 19:05: Q6H, 24 [place] 27 tab, Substituti on Allowed, TAB aspirin 325 2011-08 Yes Anita Marcelino 325 mg, 1 Memoria mg tablet 2-04 [place]al[place] tab, PO, l 19:05: Daily, 30 [place] 08 tab, Substituti on Allowed, TAB verapamil 2011-08 No Anita Marcelino 40 mg, 1 Memoria 40 mg oral 2-04 [place] tab, PO, l tablet 19:03: TID, 90 [place] 44 tab, Substituti on Allowed, TAB caffeine 2011-08 No Anita Marcelino 100 mg, 1 Memoria 100 mg oral 2-04 [place]al[place] tab, PO, l tablet 19:03: Q3H, 12 [place] 29 tab, Substituti on Allowed, TAB caffeine 2011-08 No Naomi Viki 250 mg, Memoria 2-04 Quang Route: l 18:15: IVPB, [place] 00 ONCE, Dosing Weight 113.636, kg, Start [...] tab, PO, l tablet 17:59: TID, 90 [place] 46 tab, 3, 3, Substituti on Allowed, [...] tab, PO, l tablet 14:30: QPM, 30 [place] 06 tab, 3, 3, Substituti on Allowed, TAB Cipro 2011-08 No Anita Marcelino 250 mg, 1 Mem oria 2-04 [place]al[place] tab, l 05:00: Route: PO, [place] 00 Drug form: TAB, Q12H, Dosing Weight [...] NS (Bolus) 2011-08 No Reynaldo 500 mL, Mem oria IV 500 mL 2-03 Govind Rate: 500 l 22:31: Koranne ml/hr, [place] 00 Infuse over: 1 hr, Route: IV, [...] l benzoate + 19:20: Koranne IVPB, Drug [place] Sodium 00 form: INJ, Chloride ONCE, 0.9% IV Dosing 1,000 mL Weight 113.636, kg, Start date: 07/20/12 13:20:00, Stop date: 07/20/12 13:20:00 Navane 2011-08 No Baudilio 20 mg, 4 Mike sujey 2-03 Castellanos cap, l 15:00: Chahil Route: PO, Aliza nn 00 Drug form: CAP, Daily, Dosing Weight 113.636, kg, Start date: 07/20/12 9:00:00, Duration: 30 day, Stop date: 08/18/12 9:00:00 clonidine 2011- No Reynaldo 0.1 mg, Mike sujey 2-03 Govind Route: PO, l 15:00: Koranne Drug form: Herm tin 00 TAB, TID, Dosing Weight 113.636, kg, Start date: 07/20/12 9:00:00, Duration: 30 day, Stop date: 08/18/12 17:00:00 Haldol 2011- No Baudilio 2 mg, 1 Memor ia [...] 30 day, Stop date: 08/18/12 9:00:00 Wellbutrin 2011- No Baudilio 300 mg, 2 Memoria 2-03 [...] 07/20/12 9:00:00, Stop date: 07/20/12 9:00:00 Saline 2011- No Baudilio 5 ml, Memoria Flush 0.9% 2-03 Castellanos Route: l 03:00: Chahil IVP, Drug Enrique n 00 Form: INJ, Dosing Weight 113.636, kg, Q12H, Start date: 07/19/12 21:00:00, Duration: 30 day, Stop date: 08/18/12 9:00:00 famotidine 2011-08 No Baudilio 20 mg, 1 Memoria 2-03 Castellanos tab, l 03:00: Chahil Route: PO, Aliza nn 00 Drug form: TAB, Q12H, Dosing Weight 113.636, kg, Start date: 07/19/12 21:00:00, Duration: 30 day, Stop date: 08/18/12 9:00:00 Visipaque 2011-08 No Prashanth 100 mL, Mem oria 320mg/ml 09-19 Pelon Route: l 20:56: Dent IVP, Drug Enrique n 00 Form: SOLN, Dosing Weight 113.636, kg, ONCALL, STAT, Start date: 07/19/12 14:56:00, Duration: 1 doses or times, Dose = 2.2ml/kg, Max dose = 150mlDose = 2.2ml/kg, Max dose = 150ml enoxaparin 2011-08 No Baudilio 40 mg, 0.4 Memoria 2-02 Castellanos mL, Route: l 17:00: Chahil SUB-Q, [place] Drug form: INJ, Q24H, Dosing Weight 113.636, kg, Start date: 07/19/12 11:00:00, Duration: 30 day, Stop date: 08/17/12 11:00:00 hydromorpho 2011-08 No David Agustin 1 mg, 0.5 Memoria ne -02 Spicer mL, Route: l 16:49: IVP, Drug [place] 00 form: INJ, ONCE, Dosing Weight 113.636, kg, Priority: STAT, Start date: 07/19/12 10:49:00, Stop date: 07/19/12 10:49:00 Plavix 2011-08 No Anita Marcelino 75 mg, 1 Mem oria 2-02 [place]al[place] tab, l 16:17: Route: PO, [place] 00 Drug form: TAB, Daily, Dosing Weight 113.636, kg, Priority: STAT, Start date: 07/19/12 10:17:00, Duration: 30 day, Stop date: 08/18/12 9:00:00 Saline 2011- No Baudilio 5 ml, Memoria Flush 0.9% 2 Castellanos Route: l 16:05: Chahil IVP, Drug Enrique n 00 Form: INJ, Dosing Weight 113.636, kg, PRN, PRN Line Flush, Start date: 07/19/12 10:05:00, Duration: 30 day, Stop date: 08/18/12 10:04:00 acetaminoph 2011-08 No Baudilio 650 mg, 2 Memoria en 2-02 Castellanos tab, l 16:05: Chahil Route: PO, Aliza nn 00 Drug form: TAB, Q4H, Dosing Weight 113.636, kg, PRN Pain/Fever , Start date: 07/19/12 10:05:00, Duration: 30 day, Stop date: 08/18/12 10:04:00 Sodium 2011-08 No Baudilio 1,000 mL, Mem oria Chloride 09-19 Emanuel Rate: 75 l 0.9% IV 16:05: Chahil [...] David Agustin 25 mg, 1 Memoria e 2-02 Spicer mL, Route: l 12:57: IVPB, Drug form: INJ, ONCE, Dosing Weight 113.636, kg, Priority: STAT, Start date: 07/19/12 6:57:00, Stop date: 07/19/12 6:57:00 hydromorpho 2011- No David Velez 1 mg, 0.5 Memoria ne 09-19 Spicer mL, Route: l 12:56: IVP, Drug [...] with [facility] Eliquis Eliquis Yes James as [facility] directed [facility] Clopidogrel Clopidogrel Yes James 1 [...] Systolic (mm Hg) 2019-03-13 01:15:00 Mike rial [place] Diastolic (mm Hg) 2019-03-13 01:15:00 Mem orial [place] Temperature Oral (F) 2019-03-13 01:15:00 97.0 F [facility] [place] Respitory Rate 2019-03-13 01:15:00 Memori al [place] Heart Rate 2019-03-12 22:53:00 [facility] [place] Respitory Rate 2019-03-12 22:07:00 Memori al [place] Systolic (mm Hg) 2019-03-12 22:07:00 Mike rial [place] Diastolic (mm Hg) 2019-03-12 22:07:00 Mem orial [place] Heart Rate 2019-03-12 22:07:00 Memorial [place] Systolic (mm Hg) 2019-03-12 20:52:00 Mike rial [place] Diastolic (mm Hg) 2019-03-12 20:52:00 Mem orial [place] Temperature Oral (F) 2019-03-12 20:52:00 97.3 F [facility] [place] Respitory Rate 2019-03-12 20:52:00 Memori al [place] Heart Rate 2019-03-12 20:52:00 [facility] [place] Temperature Oral (F) 2019-03-12 16:26:00 97.3 F [facility] [place] Weight 2019-03-10 08:42:00 [facility] [place] Weight 2019-03-10 08:31:00 [facility] [place] Height 2019-03-10 08:31:00 160.02 cm [facility] [place] BMI Calculated 2019-03-10 08:31:00 Memori al [place] Weight 2019-03-09 20:31:00 [facility] [place] BMI Calculated 2019-03-09 20:31:00 Memori al [place] Height 2019-03-09 20:31:00 172.72 cm [facility] [place] Temperature Oral (F) 2015-03-22 21:22:00 97.5 F [facility] [place] Heart Rate 2015-03-22 21:22:00 [facility] [place] Respitory Rate 2015-03-22 21:22:00 Memori al [place] Systolic (mm Hg) 2015-03-22 21:22:00 Mike rial [place] Diastolic (mm Hg) 2015-03-22 21:22:00 Mem orial [place] Heart Rate 2015-03-22 17:00:00 [facility] [place] Respitory Rate 2015-03-22 17:00:00 Memori al [place] Temperature Oral (F) 2015-03-22 17:00:00 97.4 F [facility] [place] Systolic (mm Hg) 2015-03-22 17:00:00 Mike rial [place] Diastolic (mm Hg) 2015-03-22 17:00:00 Mem orial [place] Systolic (mm Hg) 2015-03-22 14:14:00 Mike rial [place] Diastolic (mm Hg) 2015-03-22 14:14:00 Mem orial [place] Heart Rate 2015-03-22 14:14:00 [facility] [place] Temperature Oral (F) 2015-03-22 14:14:00 97.8 F [facility] [place] Respitory Rate 2015-03-22 14:14:00 Memori al [place] Weight 2015-03-17 00:52:00 [facility] [place] Height 2015-03-17 00:52:00 160.02 cm [facility] [place] BMI Calculated 2015-03-17 00:52:00 Memori al [place] Temperature Oral (F) 2014-11-01 00:46:00 98.1 F [facility] [place] Heart Rate 2014-11-01 00:46:00 [facility] [place] Respitory Rate 2014-11-01 00:46:00 Memori al [place] Systolic (mm Hg) 2014-11-01 00:46:00 Mike rial [place] Diastolic (mm Hg) 2014-11-01 00:46:00 Mem orial [place] Temperature Oral (F) 2014-10-31 21:18:00 98.6 F [facility] [place] Heart Rate 2014-10-31 21:18:00 [facility] [place] Respitory Rate 2014-10-31 21:18:00 Memori al [place] Systolic (mm Hg) 2014-10-31 21:18:00 Mike rial [place] Diastolic (mm Hg) 2014-10-31 21:18:00 Mem orial [place] Temperature Oral (F) 2014-10-31 15:55:00 98.2 F [facility] [place] Respitory Rate 2014-10-31 15:55:00 Memori al [place] Systolic (mm Hg) 2014-10-31 15:55:00 Mike rial [place] Diastolic (mm Hg) 2014-10-31 15:55:00 Mem orial [place] Heart Rate 2014-10-31 15:55:00 [facility] [place] Weight 2014-10-26 02:54:00 [facility] [place] BMI Calculated 2014-10-26 02:54:00 Memori al [place] Height 2014-10-26 02:54:00 160.02 cm [facility] [place] Diastolic (mm Hg) 2013-11-14 19:30:00 Mem orial [place] Heart Rate 2013-11-14 19:30:00 [facility] [place] Systolic (mm Hg) 2013-11-14 19:30:00 Mike rial [place] Respitory Rate 2013-11-14 19:30:00 Memori al [place] Temperature Oral (F) 2013-11-14 19:30:00 98.3 F [facility] [place] Heart Rate 2013-11-14 17:18:00 [facility] [place] Respitory Rate 2013-11-14 17:18:00 Memori al [place] Temperature Oral (F) 2013-11-14 17:18:00 98.0 F [facility] [place] Systolic (mm Hg) 2013-11-14 17:18:00 Mike rial [place] Diastolic (mm Hg) 2013-11-14 17:18:00 Mem orial [place] Diastolic (mm Hg) 2013-11-14 16:00:00 Mem orial [place] Systolic (mm Hg) 2013-11-14 16:00:00 Mike rial [place] Temperature Oral (F) 2013-11-14 15:04:00 97.4 F [facility] [place] Respitory Rate 2013-11-14 07:00:00 Memori al [place] Height 2013-11-13 11:04:00 162.56 cm [facility] [place] Weight 2013-11-13 11:04:00 [facility] [place] BMI Calculated 2013-11-13 11:04:00 Memori al [place] BMI Calculated 2013-11-13 08:43:00 Mem[facility] al [place] Height 2013-11-13 08:43:00 160.02 cm [facility] [place] Weight 2013-11-13 08:43:00 [facility] [place] Heart Rate 2013-11-13 08:43:00 [facility] [place] Heart Rate 2013-05-12 16:17:00 [facility] [place] Diastolic (mm Hg) 2013-05-12 16:17:00 Mem orial [place] Systolic (mm Hg) 2013-05-12 16:17:00 Mike rial [place] Respitory Rate 2013-05-12 15:30:00 Memori al [place] Diastolic (mm Hg) 2013-05-12 12:53:00 Mem orial [place] Systolic (mm Hg) 2013-05-12 12:53:00 Mike rial Carbera Respitory Rate 2013-05-12 12:53:00 Memori al [place] Heart Rate 2013-05-12 12:53:00 [facility] [place] Temperature Oral (F) 2013-05-12 12:53:00 99.1 F [facility] [place] Diastolic (mm Hg) 2013-05-12 08:31:00 Mem orial [place] Systolic (mm Hg) 2013-05-12 08:31:00 Mike rial [place] Respitory Rate 2013-05-12 08:31:00 Memori al [place] Heart Rate 2013-05-12 08:31:00 [facility] [place] Temperature Oral (F) 2013-05-12 08:31:00 99.8 F [facility] [place] Temperature Oral (F) 2013-05-12 04:50:00 99.8 F [facility] [place] Height 2013-05-09 03:31:00 160.02 cm [facility] [place] Weight 2013-05-09 03:31:00 [facility] [place] Respitory Rate 2012-07-22 01:09:00 Memori al [place] Systolic (mm Hg) 2012-07-22 01:09:00 Mike rial [place] Diastolic (mm Hg) 2012-07-22 01:09:00 Mem orial [place] Temperature Oral (F) 2012-07-22 01:09:00 98.6 F [facility] [place] Heart Rate 2012-07-22 01:09:00 [facility] [place] Diastolic (mm Hg) 2012-07-21 21:10:00 Mem orial [place] Systolic (mm Hg) 2012-07-21 21:10:00 Mike rial [place] Temperature Oral (F) 2012-07-21 21:10:00 97.2 F [facility] [place] Heart Rate 2012-07-21 21:10:00 [facility] [place] Respitory Rate 2012-07-21 21:10:00 Memori al [place] Temperature Oral (F) 2012-07-21 18:26:00 98.5 F [facility] [place] Heart Rate 2012-07-21 18:26:00 [facility] [place] Respitory Rate 2012-07-21 18:26:00 Memori al [place] Diastolic (mm Hg) 2012-07-21 18:26:00 Mem orial [place] Systolic (mm Hg) 2012-07-21 18:26:00 Mike rial [place] Weight 2012-07-19 12:37:[address] [facility] [place] Height 2012-07-19 12:37:00 [address] [facility] [place] Procedures Procedure Date / Time Performing Clinician Source Performed Spinal puncture, 2015-03-17 20:30:27 [facility] rmann therapeutic, for drainage of cerebrospinal fluid (by needle or catheter) Appendectomy [facility] Cabrera Cholecystectomy [facility] Cabrera Ankle fusion<sup>1</sup> Memoria l Cabrera Appendectomy [facility] [place] Cholecystectomy [facility] Cabrera Fixation of fracture using Memor ial Cabrera plate Hysterectomy [facility] Cabrera Encounters Start End Encounter Admission Attending Care Care Encounter Source Date/Time Date/Time Type Type Clinicians Facility Department ID 2020-09-09 2020-09-09 Telephone [facility] [id number] 00:00:00 00:00:00 Ludwig Gill [id number] [place] [id number] [id number] 059 [facility] 2020-03-28 2020-03-28 [facility] [id number] [facility] 16:00:00 16:00:00 [facility] 2020-02-21 2020-02-21 [facility] [id number] [facility] 15:00:00 15:00:00 [facility] 2020-02-16 2020-02-16 [facility] [id number] [facility] 07:13:00 07:13:00 [facility] 2020-02-15 2020-02-15 [facility] [id number] [facility] 14:22:00 14:22:00 t dineout s - Drive [facility] Outpat[facility] ent Clinics 2020-01-12 2020-01-12 [facility] [id number] [facility] 16:30:00 16:30:00 t [facility] Luke s - Road [facility] Out[facility] ent Clinics 2019-12-27 2019-12-27 [facility] [id number] [facility] [address] 14:45:00 14:45:00 t dineout s - Drive [facility] Medicine Outpati ent Clinics 2019-09-27 2019-09-27 [facility] [id number] [facility] 15:00:00 15:00:00 t dineout s - [address] [facility] Medicine l Medicine Outpati ent Clinics 2019-03-09 2019-03-12 Outpatient Natasha [facility] [id number] 15:30:52 21:00:00 Cerena K 00 2019-03-09 2019-03-[address] [facility] MED [id number] [facility] 18:36:00 15:30:00 2015-03-16 2015-03-22 Outpatient Yissel [facility] [id number] 18:33:00 20:09:00 Gael Stephenson 11 2014-10-25 2014-10-31 Outpatient DEREJE Garcia RADHA [id number] 20:37:00 20:05:00 Wilberto 69 2013-11-13 2013-11-14 Outpatient DEREJE Garcia RADHA [id number] 03:43:00 18:45:00 Wilberto Results Test Description [...] (test code = MCH) 29.0 pg 27.0-31.[address] [facility] BslniroWCJFUQNUJZ3986-31-36 08:51:0032.7[facility]annHEMATOLOGY 2019-03-12 08:51:0088.4[facility] RhyclqiXZDVIVLNCI4322-80-08 08:51:0032.2[facility] HermannPARATHYROID BUSKGCW9702-53-31 08:51:001.05[facility] HermannPARATHYROID NGZVOVZ3909-24-16 08:51:001.05[facility] HermannCHEM RWOBB3004-71-30 21:57:0083 [facility]annCHEM JLTZI2389-27-76 21:57:0011.4[facility] HermannCHEM PANEL 2019-03-11 21:57:008.2[facility] HermannCHEM UMZQP7203-58-32 21:57:0025[facility]annCHEM HLZHJ1408-60-80 21:57:27606Tutbkhgl HermannCHEM LGCOE8051-24-93 21:57:003.4[facility] HermannCHEM RBYPH7963-10-15 21:57:000.80[facility] HermannCHEM DPWFQ7767-47-69 21:57:39027Ejeqtjmw HermannCHEM MKZCL7260-06-75 21:57:12221 [facility]annCHEM TIXIB3579-75-73 21:57:004[facility] HermannPARATHYROID YUSHWDA7532-86-13 21:57:001.07[facility] HermannPARATHYROID XWXXWIV1039-27-68 21:57:001.07[facility]annURINE AND VYLCD1673-07-86 21:57:004[facility]INE AND OQHVA8714-39-66 21:57:00Negative (03/11/19 4:57 PM)[facility] URINE AND CBYCQ7663-87-06 21:57:00<1.0[facility]annURINE AND STOOL 2019-03-11 21:57:00Negative (03/11/19 4:57 PM)[facility] STOOL 2019-03-11 21:57:00Negative *NA*(03/11/19 4:57 PM)[facility] ST[facility]OL 2019-03-11 21:57:00Negative (03/11/19 4:57 PM)[facility] STOOL 2019-03-11 21:57:001[facility]ann[facility] AND KMRLV7298-97-34 21:57:00Yellow *NA*(03/11/19 4:57 PM)[facility] AND ZMMWE2350-57-91 21:57:00Slight *ABN*(03/11/19 4:57 PM)[facility] AND OZVBH6936-88-81 21:57:00 Test Item Value Reference Range Interpretation Comments UA Spec Grav (test code = UA Spec 1.016 1 Grav) [facility] AND OCZWQ7514-70-73 21:57:00 Test Item Value Reference Range Interpretation Comments UA pH (test code = UA pH) 8.0 1 5.0-8.0 [facility]ann[facility] HZVJ9829-49-63 21:57:007.4[facility]annURINE CHEM 2019-03-11 21:57:42956Voicawfc [facility]annURINE INKK9288-53-44 21:57:23378Jxgdbwxs [facility]annURINE BJLO5117-85-36 21:57:47093Fbmocixw [facility]annURINE TQQY0698-49-95 21:57:00Negative (03/11/19 4:57 PM)[facility]annCHEM XTUZY7880-04-92 09:03:00 109[facility] HermannCHEM ULWGC8217-47-71 09:03:002.9[facility] HermannCHEM PANEL 2019-03-11 09:03:52938Rmnnspbo HermannCHEM VETOE6211-73-87 09:03:000.51[facility] HermannCHEM DIPVN8344-24-16 09:03:004[facility] HermannCHEM JSBJN3759-44-74 09:03:0079[facility] HermannCHEM VYFGK1348-75-15 09:03:007.6[facility] HermannCHEM JDOLV9750-91-09 09:03:009.9[facility] HermannCHEM USUES9057-81-27 09:03:0027 [facility]annCHEM KUVOK3108-73-75 09:03:13819Ccvppmdp HermannCHEM PANEL 2019-03-11 09:03:003.7[facility] HermannCHEM SSBHS4390-61-23 09:03:002.0[facility] HflpuxmMTLSZHNQZX6232-91-04 09:03:008.1[facility] YcrburcDHTQKTDPHW6531-22-96 09:03:73270Pozwyxpj FoobyuuRGTYRQXVWO4767-80-40 09:03:0016.6[facility] ROTWXCOAFC0580-99-97 09:03:00 Test Item Value Reference Range Interpretation Comments MCH (test code = MCH) 29.0 pg 27.0-31.0 [facility] FgjbzgqGLASVYUOGO6069-74-62 09:03:0033.0[facility] HermannHEMATOLOGY 2019-03-11 09:03:003.64[facility] FdxabchTREDVMXHTX9068-15-40 09:03:0010.6[facility] NofdunyEIVMKKOUEI6501-47-78 09:03:009.3[facility] LbmmughIHEKBERDUW0330-05-96 09:03:0087.8[facility] IibeizzTNNUDIOXHR7744-56-77 09:03:0032.0[facility] IGRPRPSOMA6577-37-35 09:03:004.0[facility] StwokzmXTKPLMQSJO7629-71-74 09:03:00 62.5[facility] AzkzlrdIGKUNCSENW8026-50-15 09:03:0027.8[facility] HermannHEMATOLOGY 2019-03-11 09:03:004.5[facility] HlzrkbuZDDQILLMGR2577-85-70 09:03:005.8[facility] AxpfukhPRIILFWVHP2963-22-24 09:03:002.6[facility] FmbnlrdSVGRGGXBRS1876-15-96 09:03:000.4[facility] OyjvhxjBUKAVOGJDH0608-40-00 09:03:000.4[facility] NHWCHJYBUG6677-31-10 09:03:001.2[facility] QrtviuiYJDQUBCPOO0443-63-62 09:03:000.1 [facility] HermannPARATHYROID RRFEJZC8988-36-92 09:03:000.91[facility] PARATHYROID UEXXXQS5089-30-24 09:03:000.96[facility] TrpwmuxLXCXYXVLBV9606-80-82 19:00:000.3[facility] IqtgagfEMTVAKFFKF4929-33-38 19:00:000.4[facility] QYDDHQARGT4659-08-43 19:00:002.8[facility] RsbzpsdLACNAHXUNO1532-93-67 19:00:000.1 [facility] McsnehsTSOGIJXSBD9816-99-67 19:00:0061.6[facility] HermannHEMATOLOGY 2019-03-10 19:00:0029.1[facility] NwcoggtXCZBZVHHZK5469-33-57 19:00:001.2[facility] YrgapnkQHNDTISRAH4879-44-95 19:00:004.5[facility] KsgnxahVGKPOEPCNK0239-11-30 19:00:005.8[facility] ExirvdqXZJCGKPCSW2252-32-02 19:00:003.6[facility] OVEPFLZJMZ5621-07-59 19:00:007.9[facility] WwtpaxrUGBJGVLOGX2554-51-02 19:00:00 34.6[facility] CvzhzhwLSGZAGHGGF9227-14-92 19:00:00 Test Item Value Reference Range Interpretation Comments MCH (test code = MCH) 28.6 pg 27.0-31.0 [facility] UyfwjzhFEDKLMWIEP7602-01-42 19:00:0088.5[facility] HermannHEMATOLOGY 2019-03-10 19:00:97009Lunijiib CiqmvkzOVXJBVKSXK2637-98-49 19:00:0016.7[facility] YnqezlqBLIOQNTEVS4804-72-82 19:00:0032.3[facility] HwsdpbmYNDEPMIAWH6966-04-42 19:00:0011.2[facility] UngdyzjLGCESJOHFB3398-06-21 19:00:003.91[facility] KJMQVUPAJE1550-93-73 19:00:009.5[facility] AaibjjwVOVNCPYUQW5148-71-61 19:00:00 Test Item Value Reference Range Interpretation Comments INR (test code = INR) 1.06 1 0.85-1.17 [facility] VisvmktECPQLEGXXZ7195-95-71 19:00:00 Test Item Value Reference Range Interpretation Comments PT (test code = PT) 13.6 s 12.0-14.7 [facility] NocbgrmSMNJRXPCYH7549-70-79 19:00:00 Test Item Value Reference Range Interpretation Comments PTT (test code = PTT) 36.3 s 22.9-35.[address] [facility] HermannCARDIAC KWPZVXT8830-42-97 11:47:000.30[facility] HermannCHEM PANEL 2019-03-10 11:47:001.6[facility] HermannCHEM PBBZG6641-95-95 11:47:002.1[facility] KipphyhTLJWAF5291-59-92 11:47:00 Test Item Value Reference Range Interpretation Comments VLDL (test code = VLDL) 39 1 [facility] PcanzxzKEPONY6452-87-01 11:47:0036[facility] NlygqvxSONALS7955-45-94 11:47:0028[facility] ZtjaltdJNWNZU4383-95-19 11:47:16892Mlofmfrb HermannLIPIDS 2019-03-10 11:47:03926Ymyzxwen SktlqwsLBBHOP2482-05-96 11:47:00 Test Item Value Reference Range Interpretation Comments CHD Risk (test code = CHD Risk) 3.68 1 3.90-5.80 [facility] NKNDBEEPH4535-13-43 11:47:004.8[facility] HermannANEMIA KNROI0749-41-86 09:18:34865Wxfavanr HermannANEMIA FHCPH7254-88-05 09:18:004.4 [facility] HermannCARDIAC RDKPKJV8202-10-61 09:18:0010[facility] HermannCHEM PANEL 2019-03-10 09:18:52191Fdifkkvh BbpuubdAPHFGOYESW1435-55-81 07:49:00 Test Item Value Reference Range Interpretation Comments PTT (test code = PTT) 42.4 s 22.9-35.8 [facility] ScguvotQRCUVFTPDR4459-07-54 07:49:00 Test Item Value Reference Range Interpretation Comments PT (test code = PT) 13.5 s 12.0-14.7 [facility] QfxqzahIDYVQZPWAS5295-60-98 07:49:00 Test Item Value Reference Range Interpretation Comments INR (test code = INR) 1.05 1 0.85-1.17 [facility] HermannCARDIAC KCBLUMV4123-67-27 07:00:000.48[facility] HermannCARDIAC NYWIDPC7285-18-55 22:16:000.50[facility] HermannCARDIAC DAOHEMS6709-61-89 22:16:00 63[facility] HermannCHEM WRCUO3429-20-80 22:16:001.2[facility] HermannHEMATOLOGY 2019-03-09 22:16:00 Test Item Value Reference Range Interpretation Comments PTT (test code = PTT) 31.7 s 22.9-35.8 [facility] MddvjmdCOLSXLTWOQ0022-00-58 22:16:00 Test Item Value Reference Range Interpretation Comments INR (test code = INR) 1.07 1 0.85-1.[address] [facility] XsorbmbREZXOMIRXB1826-62-07 22:16:00 Test Item Value Reference Range Interpretation Comments PT (test code = PT) 13.7 s 12.0-14.7 [facility] HermannCHEM YITZI3131-64-35 09:12:003.5[facility] HermannCHEM PANEL 2015-03-22 09:12:001.8[facility] FztauzvOMFVDEGEAUZH6219-71-50 09:12:0022[facility] BrmpksgRSEUZDYLFHOQ0417-05-23 09:12:008.9[facility] JyxbkvvHFTXMXLZLTFS4642-94-20 09:12:0014.6[facility] DxuxnguJDYKQXAOJHFO8114-70-05 09:12:02393Wxcpczmf [facility] PGTWKMRIDTFT3630-28-30 09:12:003.6[facility] NkpheapNFEECUFJUCCN4057-14-45 09:12:000.9[facility] NwwvihiBOUPGFXTRKUO6070-39-72 09:12:62052Fxifcauj [facility] JMOPDUWPNFES0882-68-65 09:12:0081[facility] HvzacpwYJAMBHONHRPF1133-95-29 09:12:00 10[facility] GyspwnfEKXODDOVBDRG1817-82-28 09:12:0075[facility] HermannHEMATOLOGY 2015-03-22 09:12:007.5[facility] WozstysPDIRIBOTDP2462-44-60 09:12:82970Hvzwoped CvtjwsvVGUMDEMLBD7604-52-73 09:12:0011.7[facility] PmtisytRGLLCFRUDB4349-73-78 09:12:0032.6[facility] WrdoclmXGNWADKAXM0697-81-91 09:12:0084.1[facility] DFDCKBDRGO5976-93-70 09:12:003.87[facility] VccxccbPMWMHXINMS2173-22-30 09:12:00 10.4[facility] MxvnsvkSERTKZHAYQ4618-71-52 09:12:0031.9[facility] HermannHEMATOLOGY 2015-03-22 09:12:00 Test Item Value Reference Range Interpretation Comments MCH (test code = MCH) 26.8 pg 27.0-31.0 [facility] UbpuhioBITUFRHZPD2775-14-66 09:12:0017.6[facility] HermannHEMATOLOGY 2015-03-22 09:12:001.0[facility] DlcoqyqFLNONUATOO7960-70-66 09:12:007.4[facility] SiqczzbCGAZEQHHSK4560-81-83 09:12:0038.6[facility] GhngegeGUSHZKUYUE6615-76-89 09:12:0052.0[facility] FqcdsmwLXNBJQZDRT5995-48-24 09:12:001.0[facility] HEESMPIVBN1232-13-68 09:12:006.1[facility] EyyqhpdYUQOPEFSRU9334-59-35 09:12:000.1 [facility] ThepkpsYDQVBNMYVR2559-70-62 09:12:000.9[facility] HermannHEMATOLOGY 2015-03-22 09:12:000.1[facility] KfjxujdGVMYGQSUZH9309-37-33 09:12:004.5[facility] HgkqwdyASGSGLLTNR1127-51-97 16:38:005.0[facility] AlaofedZQJOIXDYRJ8381-30-05 16:38:0014.5[facility] KauqshuPPSHIDVNRR8383-56-86 16:38:0016.2[facility] CGCINMPJIC1668-44-69 16:38:0015.1[facility] CbmefhwNCOVPMCYSX2092-31-44 16:38:00 49.2[facility] IglwbnsQQQBFJDJTB4616-86-65 16:38:000.34[facility] HermannIMMUNOLOGY 2015-03-21 16:38:006.8[facility] PnbivdfCHQTIVQUOT7425-54-43 16:38:003.35[facility] HjtwwtaABMJSMUDUP1563-97-88 16:38:000.99[facility] ZonobrnXTNXNWTGTV6613-13-78 16:38:001.10[facility] DqnqkojUFTVBKKPJI7377-10-19 16:38:001.03[facility] CHEM QXQSK0600-23-88 09:35:41966Gbxjyyfg HermannCHEM SQZYA6393-64-40 09:35:009.1 [facility] HermannCHEM IHPZU0189-87-87 09:35:003.8[facility] HermannCHEM PANEL 2015-03-21 09:35:0021[facility] HermannCHEM UNEKG0484-57-47 09:35:44685Ponhjesq HermannCHEM UQWXE4604-47-83 09:35:0011[facility] HermannCHEM IKOQG4836-16-57 09:35:18095Mdxgxned HermannCHEM ZTFTF6464-95-35 09:35:0083[facility] HermannCHEM WASTV6774-18-31 09:35:000.7[facility] HermannCHEM ONDXW8229-66-45 09:35:0014.8 [facility] HermannCHEM YFVHC0405-78-81 09:35:001.8[facility] HermannCHEM PANEL 2015-03-21 09:35:004.1[facility] UhuokvlKLGZQLSFCR1374-06-39 09:35:000.1[facility] JugrazoSCWYXLDGDQ7677-50-38 09:35:000.7[facility] AvtfagkFRYFZHGQEK6623-77-78 09:35:001.0[facility] GknasepIEGVISVLWA4585-93-49 09:35:001.2[facility] XOYTILPRRU6356-82-52 09:35:003.7[facility] LkdspkuOQYESSUEVA9525-60-27 09:35:005.4 [facility] JtcmiqxHFMWKPFKNZ2699-67-75 09:35:006.9[facility] HermannHEMATOLOGY 2015-03-21 09:35:000.1[facility] SxqbxdkCMXZLJKGKB6900-38-47 09:35:0054.0[facility] XplqdmqUZXKZBHRGZ2479-79-20 09:35:0036.9[facility] NeyvvrlAZNJCQDLOL8411-42-43 09:35:0032.9[facility] OcvsijuQIZNZDIXIM7870-46-52 09:35:0010.8[facility] MDWIXLJFLG4583-11-77 09:35:003.91[facility] WltatpvVKZJCMQUTD6354-57-66 09:35:00 10.0[facility] NxbjkfnTMPFGENZSB2523-49-50 09:35:0032.9[facility] HermannHEMATOLOGY 2015-03-21 09:35:0017.2[facility] JzvuzmxKNRNJXZOIP0952-00-16 09:35:00 Test Item Value Reference Range Interpretation Comments MCH (test code = MCH) 27.7 pg 27.0-31.0 [facility] OrwzycsEKYHRHFXUS4939-57-14 09:35:0084.2[facility] HermannHEMATOLOGY 2015-03-21 09:35:007.5[facility] VxdffslBGEHSJCXPJ3335-21-78 09:35:10810Qgjkrgag RnodmvqKUITLBGXJI7280-18-48 04:39:036.4[facility] HermannCHEM KXCFJ5930-49-74 08:41:80820Mhjllffl HermannCHEM JITGW1048-18-19 08:41:94257Hiadaydq HermannCHEM BREWX5586-83-60 08:41:0071[facility] HermannCHEM FFVCA7253-87-27 08:41:007[facility] HermannCHEM BTXBV2360-44-83 08:41:000.7[facility] HermannCHEM JBCPH1075-47-91 08:41:003.9[facility] HermannCHEM TDDBZ4539-88-37 08:41:009.2[facility] HermannCHEM KSITZ6059-37-01 08:41:11731Sjxhhlno HermannCHEM GQHIV2376-24-18 08:41:0023 [facility] HermannCHEM IRRRQ1918-39-18 08:41:0013.9[facility] HermannCHEM PANEL 2015-03-20 08:41:001.9[facility] HermannCHEM FOPYD1593-63-75 08:41:003.6[facility] NuhmxrfLCZOXZPGDI6672-61-45 08:41:0033.2[facility] DmknblkRNLLKAGVLL9617-71-95 08:41:90369Mdguhryy UkuvbxvZABABDXHOZ5406-92-17 08:41:0017.2[facility] LOLCNHWTZL7831-63-54 08:41:004.07[facility] DnfejooXDOLPLTWZC0092-06-51 08:41:00 9.6[facility] QrzitkcVXSSHMWDWU2540-08-20 08:41:0011.2[facility] HermannHEMATOLOGY 2015-03-20 08:41:0033.6[facility] FbokalcPMFWBHJBXX4980-86-97 08:41:0082.6[facility] JckhbqnEDSQKQWWOC3326-93-80 08:41:00 Test Item Value Reference Range Interpretation Comments MCH (test code = MCH) 27.4 pg 27.0-31.0 [facility] YlantlhXEAECUFPZE0661-40-16 08:41:007.7[facility] HermannHEMATOLOGY 2015-03-20 08:41:0055.3[facility] JvkmtfgOBQTZXJJOM6434-01-86 08:41:001.9[facility] GruvdodXHJGKBVQXL2248-85-19 08:41:0035.6[facility] NqnjtgcAZMKDHVXTY5665-88-40 08:41:006.2[facility] BxlmizqFCARLMWYGS0729-96-20 08:41:001.0[facility] YTTLULEOTT2856-98-87 08:41:005.3[facility] KetaemjEXBVUGGBAJ5184-97-11 08:41:003.4 [facility] JqmerhvXSWKWREUBL9441-12-94 08:41:000.6[facility] HermannHEMATOLOGY 2015-03-20 08:41:000.1[facility] MveqduxOJPAIKANQE3683-34-77 08:41:000.2[facility] MqizhbjAPKHRPSGVM0791-20-58 08:41:73115Oaiwrgow TyyfrzxOZGUECTZDS8466-16-19 16:56:000.91[facility] YumagrpFZXHLKJHAB5282-87-90 16:56:00Negative (03/19/15 11:56 AM)[facility] RirfjkwWQZUWBCCAJ3336-39-80 16:56:00Non Reactive *NA*(03/19/15 11:56 AM)[facility] JvjckppYPDQAHZHDT5407-04-47 21:44:00Negative *NA*(03/18/15 4:44 PM) [facility] HermannVIRAL - NXSRHYCJ3795-87-41 21:44:00<0.90[facility] CARDIAC JQHZLSD1415-17-88 00:57:00<0.02[facility] SnnyydxPRSPKUGIQW5572-15-65 18:50:00 Test Item Value Reference Range Interpretation Comments PT (test code = PT) 14.5 s 12.0-14.7 [facility] KyryjvyZWAERINOSI4504-82-59 18:50:001.12[facility] HermannHEMATOLOGY 2015-03-17 18:50:00 Test Item Value Reference Range Interpretation Comments PTT (test code = PTT) 31.2 s 22.9-35.8 [facility] HermannCARDIAC RAFSYZP8617-13-11 17:15:00<0.02[facility] HermannCHEM EYEFE0397-61-98 17:15:0071.0[facility] HermannBODY YISZKN6336-38-69 16:15:0042 [facility] HermannBODY ZKWRCE5288-03-00 16:15:009[facility] HermannBODY FLUIDS 2015-03-17 16:15:001[facility] HermannBODY DHMWNS7709-11-49 16:15:0090[facility] HermannBODY LABFLX1499-51-32 16:15:00Clear (03/17/15 11:15 AM)[facility] BODY HRBQMO2319-47-21 16:15:00Colorless (03/17/15 11:15 AM)[facility] HermannBODY KULWBG9491-29-43 16:15:00 Test Item Value Reference Range Interpretation Comments Tube Num CSF (test code = Tube Num CSF) 3 1 [facility] HermannBODY QLCQUG3883-52-44 16:15:00Colorless (03/17/15 11:15 AM) [facility] HermannBODY VXNSKV6915-20-39 16:15:003[facility] HermannBODY FLUIDS 2015-03-17 16:15:40717Gmjlxrrm HermannBODY TTLSFV3893-45-73 16:15:0071[facility] IqrjdgsUBJWSRVQWS2809-23-19 16:15:00Non Reactive (03/17/15 11:15 AM)[facility] HermannMOLECULAR KAFBLLXXYD5386-09-29 16:15:00Negative 9(03/17/15 11:15 AM) [facility] HermannMOLECULAR REEYATMBNU7480-04-13 16:15:00Negative 8(03/17/15 11:15 AM)[facility] HermannVIRAL - EWWVLWFZ1200-38-33 16:15:00Negative (03/17/15 11:15 AM)[facility] HermannBACTERIAL - QBXQZLFX7557-77-80 12:34:00Negative (03/17/15 7:34 AM)[facility] FeeoxofITLHACNRPZ9390-05-57 04:26:47534Dmhquvpr HermannBLOOD BANK VZGVYEZ7527-92-94 02:18:00Negative (03/16/15 9:18 PM)[facility] HermannCHEM PANEL 2015-03-17 02:18:000.7[facility] HermannCHEM FGUJD7599-41-95 02:18:0012[facility] HermannCHEM XJKUL3634-80-52 02:18:003.9[facility] HermannCHEM IMAEZ1611-06-28 02:18:005[facility] HermannCHEM LIOLN2127-47-18 02:18:23788Plgsksqh HermannCHEM NXMFK6117-81-51 02:18:000.2[facility] HermannCHEM NRUXH3715-24-76 02:18:0019 [facility] HermannCHEM QTQJM1318-26-23 02:18:006.8[facility] HermannCHEM PANEL 2015-03-17 02:18:002.9[facility] HermannDRUG BLIWDF8480-50-77 02:18:00See Note *NA*(03/16/15 9:18 PM)[facility] HermannDRUG TWTYWC0054-90-55 02:18:00Negative *NA*(03/16/15 9:18 PM)[facility] HermannDRUG KAAVYI7336-24-51 02:18:00Negative *NA*(03/16/15 9:18 PM)[facility] HermannDRUG WKCKTW2577-85-43 02:18:00Negative *NA*(03/16/15 9:18 PM)[facility] HermannDRUG KXLJYM2349-69-14 02:18:00Negative *NA*(03/16/15 9:18 PM)[facility] HermannDRUG BNFYVZ2887-45-62 02:18:00Negative *NA*(03/16/15 9:18 PM)[facility] HermannDRUG BSQTEN9208-25-07 02:18:00Negative *NA*(03/16/15 9:18 PM)[facility] HermannDRUG TPFEWI9031-22-81 02:18:00Negative *NA*(03/16/15 9:18 PM)[facility] HermannDRUG JKMDYH2605-54-73 02:18:00Negative *NA*(03/16/15 9:18 PM)[facility] HermannDRUG FTUHRC9902-67-44 02:18:00Negative *NA*(03/16/15 9:18 PM)[facility] EustrnxLPYFAMOQYF9747-75-61 02:18:00 Test Item Value Reference Range Interpretation Comments PTT (test code = PTT) 29.7 s 22.9-35.8 [facility] HermannPARATHYROID RCGEPJS8859-53-98 02:18:001.15[facility] PARATHYROID MGXTSFI1527-16-33 02:18:001.12[facility] HermannURINE AND STOOL 2015-03-17 02:18:00Negative *NA*(03/16/15 9:18 PM)[facility]annURINE AND STOOL 2015-03-17 02:18:00Negative (03/16/15 9:18 PM)[facility]annURINE AND STOOL 2015-03-17 02:18:00Negative (03/16/15 9:18 PM)[facility]annURINE AND STOOL 2015-03-17 02:18:00Negative (03/16/15 9:18 PM)[facility]annURINE AND STOOL 2015-03-17 02:18:00<1[facility] HermannURINE AND XVDRN4851-02-03 02:18:007.0 [facility]annURINE AND PYDEB0172-42-42 02:18:00Clear (03/16/15 9:18 PM) [facility]annURINE AND WVDDK4190-13-32 02:18:001.009[facility] HermannURINE AND CDXRS4517-08-10 02:18:00Light Yellow *NA*(03/16/15 9:18 PM)[facility] WJPDJTDZRZ7865-36-24 13:30:00 Test Item Value Reference Range Interpretation Comments PTT (test code = PTT) 36.1 s 22.9-35.8 [facility] RmlojfhZOPBNFQIIY1610-37-78 13:30:00 Test Item Value Reference Range Interpretation Comments PT (test code = PT) 14.6 s 12.0-14.7 [facility] IgbwmouLYDUAEDLNN8398-13-29 13:30:001.13[facility]annTOXICOLOGY 2014-10-31 13:30:453932Prvnihsc TetnnmmQAKPYNMUAT0205-08-26 13:30:0025.2[facility]annCHEM LGUFB7169-69-85 06:18:003.1[facility]annCHEM FPPVQ2905-51-92 06:18:001.8[facility] McpkqftVLRQEGFFATNN5455-87-38 06:18:0014.1[facility] GIWNBUMMCQST0453-36-41 06:18:88024Bdoadsrr PybgmvwFVILPMILUIMJ8651-75-17 06:18:53047Waupwzzl BfswbihSCENDBVEOAQM1469-71-23 06:18:44460Nscqqpno [facility]rera KLNYBLEADQSQ3306-92-95 06:18:004.1[facility] NywgurbBDOPDQHCDNTR1023-27-09 06:18:008.5[facility] IljxcevXTOEZXYKRIGY4986-06-40 06:18:0025[facility] FLUWSGEZKMHY8645-59-75 06:18:000.6[facility] KctyrqnFGNHGEGXHBNE5144-85-06 06:18:0062[facility] EtvlwmcEGFCHGYIEWXP0199-93-66 06:18:006[facility] QDNKZXFOQC2818-89-93 06:18:000.1[facility] QuyxefrGVPZUVTVYK4994-24-76 06:18:005.7 [facility] VisussgBQOUCPDECA1126-00-00 06:18:005.0[facility]annHEMATOLOGY 2014-10-31 06:18:0031.1[facility] TzwyghnZPVVGOKYSK4330-49-27 06:18:005.7[facility] TefhsquYSCROQJSZO4467-42-55 06:18:0057.7[facility] EjxhmusSYGBGVZYNJ3916-62-62 06:18:000.5[facility] KbjciitFGTDDXJDQN1536-22-74 06:18:000.6[facility] AWUZKGMPNL7012-17-30 06:18:000.5[facility] ZorgfauNGITLRTJDU8603-89-06 06:18:003.1 [facility] VlepnriEHAADTBLNQ9936-23-66 06:18:001.08[facility]annHEMATOLOGY 2014-10-31 06:18:00 Test Item Value Reference Range Interpretation Comments PTT (test code = PTT) 33.9 s 22.9-35.8 [facility] LrflkhpBNQXPBQSJF7782-99-02 06:18:00 Test Item Value Reference Range Interpretation Comments PT (test code = PT) 14.1 s 12.0-14.7 [facility] YqnemqrWCIXYQNKAX5533-95-81 06:18:0010.0[facility]annHEMATOLOGY 2014-10-31 06:18:003.22[facility] GxhgikgQNBWTSKUEV9957-44-72 06:18:0028.9[facility] CpmmndrPQYCUOATPQ0281-64-85 06:18:009.7[facility] GzehtqmEXJYYTHXJB2651-06-14 06:18:0033.4[facility] McittdbMLRESJAXVN1341-04-56 06:18:00 Test Item Value Reference Range Interpretation Comments MCH (test code = MCH) 30.0 pg 27.0-31.0 [facility] SgvgylwKJNXDPWNIE4604-93-11 06:18:0089.8[facility]annHEMATOLOGY 2014-10-31 06:18:008.2[facility] KiyeoteQUHEMSMMTR7824-15-69 06:18:13767Yrtfylfr AnfydadPFILJEUSQY0401-97-55 06:18:0016.4[facility]annPARATHYROID PROFILE 2014-10-31 06:18:001.08[facility]annPARATHYROID ZLXJQAA6773-23-80 06:18:00 1.05[facility]annCARDIAC WJYRFPK0348-89-83 07:00:0070[facility]annCHEM GTHOF9882-67-81 07:00:003.2[facility]annCHEM DEALD5021-53-97 07:00:001.8 [facility] HrrfqmqCGGQUMWBGJPB4093-25-33 07:00:0010.6[facility] HermannELECTROLYTES 2014-10-30 07:00:0079[facility] PvfkyahWYEWKWMFQOGW4440-09-30 07:00:008[facility] IasuusaCSJTSHXRBBXM2258-11-40 07:00:000.6[facility] MrnneynGNAXPHPAGNBV7995-59-26 07:00:0027[facility] CzdgosqQKTXPJHMOINJ8190-62-26 07:00:008.1[facility] NLZZIMSDNGNO7995-65-89 07:00:003.6[facility] TuuhxmlDJOCRDGQCXRM1666-59-90 07:00:45127Cejuryas EgmvzznOTYLBEKQNCNU6562-85-36 07:00:83877Ghzdazqg [facility] GWJNQPZFDSWK3224-97-05 07:00:50636Dbwwxsey NgyjmrcCBSYCLOVED5604-16-20 07:00:00 0.4[facility] FtructnYMFSKYWOIG8686-94-34 07:00:004.9[facility]annHEMATOLOGY 2014-10-30 07:00:000.6[facility] ObqkesjYJVNKNQYVB8409-89-08 07:00:0049.4[facility] DxbwomdXPSVQOTWJP0670-79-47 07:00:005.8[facility] QcdgnkqLYAQEGXZLA2266-20-93 07:00:003.7[facility] WmzdqumFADRZSKFMQ5251-10-74 07:00:0041.4[facility] XDGULKXYFE5465-14-65 07:00:000.4[facility] JzqlxlmKAXGQTRNDY6143-52-89 07:00:005.1 [facility] PembvnoOQVKFZLCAP3346-59-39 07:00:00 Test Item Value Reference Range Interpretation Comments MCH (test code = MCH) 29.4 pg 27.0-31.0 [facility] EfcoimmLFBXUACNIF0427-61-78 07:00:0027.5[facility]annHEMATOLOGY 2014-10-30 07:00:0016.3[facility] IedmuluMAJLJCXJJL3663-41-34 07:00:51540Qdouemea YcudteuDWOCQWQMCI1618-56-03 07:00:008.4[facility] QkxgirqMTCORLBSEB6014-17-84 07:00:009.1[facility] YycakprTZCRSNGOTA8383-87-40 07:00:0033.0[facility] SIUWFXWCBK1338-64-98 07:00:003.09[facility] AcpgnwgIIRERWJMGR8975-37-11 07:00:00 11.8[facility] TdybhzgNATDYSWBRS0596-27-00 07:00:0089.0[facility]annHEMATOLOGY 2014-10-30 07:00:00 Test Item Value Reference Range Interpretation Comments PT (test code = PT) 13.5 s 12.0-14.7 [facility] XjpqcilOFHTIPJKTF0905-82-99 07:00:001.03[facility]annHEMATOLOGY 2014-10-30 07:00:00 Test Item Value Reference Range Interpretation Comments PTT (test code = PTT) 31.6 s 22.9-35.8 [facility]annPARATHYROID SNLGVUS7361-90-61 07:00:001.10[facility] PARATHYROID GPGBQAH2815-21-63 07:00:001.11[facility]annCARDIAC ENZYMES 2014-10-30 05:00:0049[facility]annCARDIAC WXYOUET3355-95-05 05:00:00<0.010 [facility]annCARDIAC LMTXNIM7768-57-94 05:00:000.02[facility]annHEMATOLOGY 2014-10-30 05:00:000.2[facility] YluhmdzKXBNVODKNR5744-25-26 05:00:000.3[facility] QakwqmpQXRBWRTUDE8211-07-89 05:00:000.4[facility] WttykcoOPVRXCTIVH4436-84-87 05:00:003.2[facility] NwxdggqKTTVCIOCEJ0138-03-07 05:00:002.3[facility] HYMOUIUGPI5310-44-48 05:00:004.8[facility] XhzaqgsCUTYSEQXJS9644-44-45 05:00:003.1 [facility] HbhzyfwPDRZDWOKDC5693-26-97 05:00:0053.2[facility]annHEMATOLOGY 2014-10-30 05:00:0038.5[facility] LslzkqbUMHBOKPSLP8131-57-57 05:00:0014.9[facility] ArofhexIMYCNMASYM7707-87-80 05:00:0032.8[facility] VyddgtkSHHLYTADJF8276-96-94 05:00:00 Test Item Value Reference Range Interpretation Comments MCH (test code = MCH) 30.3 pg 27.0-31.0 [facility] BrjlpuhOBDRQLYTSN5729-97-48 05:00:0092.2[facility]annHEMATOLOGY 2014-10-30 05:00:0016.3[facility] YbpmorfZOOTHGBOHC9927-49-80 05:00:004.9[facility] TpcpuucHOVXZLEMED0746-25-78 05:00:001.61[facility] ZdynimnGLCJSBVIPD2867-75-56 05:00:006.0[facility] UrwpjayUEEVNPSVQH9514-10-76 05:00:008.1[facility] JCKWNOFKHU0110-63-96 05:00:0073[facility]annPARATHYROID EZPAGLV3470-70-97 05:00:000.63[facility]annPARATHYROID BVCZOBR7946-55-00 05:00:000.62[facility]annCARDIAC IHPGBJY6059-54-67 23:18:00<0.02[facility]annCARDIAC ENZYMES 2014-10-29 23:18:00<0.010[facility]annCARDIAC CEOGKSY4361-37-42 23:18:0083 [facility]annCARDIAC WHUBROJ2856-15-65 23:18:000.7[facility]annCARDIAC UJANYSU4510-40-68 23:18:000.6[facility] HszgnhkEWRBHLXIZM8832-75-75 21:45:829881 [facility] KinwrxpVXZKHMTITA4537-56-71 21:45:0023.9[facility] HermannCHEM PANEL 2014-10-29 10:42:000.7[facility]annCHEM GOHCQ7652-66-95 07:00:001.8[facility] HermannCHEM UPNMM7224-19-73 07:00:002.8[facility] GoswvbzCKHORVOBHHHH3074-41-81 07:00:0011.0[facility] ToibpzyEXONRYUDPPIQ0229-70-66 07:00:0010[facility] DVJBZESZJWZN4350-80-14 07:00:0083[facility] TvreownAIMVYEICMOOJ3350-20-45 07:00:00 145[facility] MfvxtngCKDGKXLRCBEA9853-43-09 07:00:000.7[facility] VWGSRQMKIXXH3161-46-41 07:00:49189Xnoeocjs BdrlztbQLLPGGGYNNGF5756-89-19 07:00:0024[facility] PhhzxioLEHCHBPRPLRL0804-79-32 07:00:007.9[facility] PEINKGSHCUDB7328-51-11 07:00:44937Jkmutbrd SreosxdKJHQMKPMPZEX4388-53-71 07:00:004.0[facility] VsriktqXIOASGANYD6414-98-04 07:00:000.1[facility] IHQBOLGKFC7890-43-62 13:36:009.7[facility] RghwwhpRYCHNMRZAK4554-92-51 11:00:00 Test Item Value Reference Range Interpretation Comments Pat Od Value (test code = Pat Od 0.046 1 Value) [facility] YjozxlaNSUCMSVGCJ5728-05-88 11:00:00 Test Item Value Reference Range Interpretation Comments Pos CO Value (test code = Pos CO 0.392 1 Value) [facility] YmsqrnbAIKCWYBHZQ7081-22-39 11:00:00Negative (10/28/14 6:00 AM)[facility] HermannCHEM IOCIY5355-40-77 15:45:001.0[facility] ZbvgssfBGSZRBZNQM8135-82-59 11:00:0024.4[facility] HermannTHYROID AUTFO4979-39-69 11:00:000.120[facility] HermannTHYROID GBIQL1568-52-05 11:00:000.96[facility]annCHEM ROQSQ8711-17-83 07:00:001.6[facility] XqgbhhoXNBMRXSFEC1019-95-31 07:00:00Normal (10/27/14 2:00 AM) [facility] VtqtpwlTYJZSHHNDD6608-93-09 07:00:00Normal (10/27/14 2:00 AM)[facility] XvsurgwRHPORANBZQ6742-12-64 01:49:0028[facility] NtuipauMTPFJBSFZB4708-57-41 23:06:00<0.1[facility] HgkfdgmZJCJDRGMLQ8589-16-20 23:00:00<0.1[facility] HermannBLOOD BANK ATAZKJT4847-69-65 21:24:00Negative (10/26/14 4:24 PM)[facility]annCHEM GTRWT0335-71-90 21:14:0070[facility]annCHEM TQFSL9906-69-75 21:14:000.15[facility] FlzlytfDIAKPAAEPI5984-10-85 21:14:72319Ylveowps [place] YFIWKXJVJG0535-67-50 21:14:000.21[facility] PxvydlhGOMFDXOWOA9634-25-08 21:14:00 29.2[facility] HermannCARDIAC OUTWGJH6353-32-56 18:30:00<0.010[facility] CARDIAC WXVBMOO3284-51-90 18:30:000.02[facility]annCHEM GTRQU6488-07-72 18:30:000.14[facility] IgdkjrxWCTHECNRTP6396-94-36 18:30:00Normal (10/26/14 1:30 PM)[facility] CbwqtfvNRSAFUNSXC9216-04-23 18:30:00Normal (10/26/14 1:30 PM)[facility] KxyavehMILQVKQWRP1704-12-26 18:30:000.0[facility] OyfdyecOQCZFKXVLG1141-54-83 18:30:001.0[facility] HermannCHEM VBFCR3378-08-78 11:15:000.1[facility]annCHEM NLBEV6244-93-63 11:15:000.2[facility]annCHEM GUFJN5979-12-89 11:15:000.1 [facility]annCHEM KXQQM1044-16-80 11:15:0011[facility]annCHEM PANEL 2014-10-26 11:15:29597Dyocbpsg HermannCHEM PCIVC3954-44-75 11:15:002.9[facility]annCHEM NKDBK2526-01-80 11:15:003.2[facility]annCHEM HVRYM2490-42-48 11:15:006.1[facility]annCHEM XCLZX4249-78-13 11:15:0023[facility]annCHEM TGOTE7655-69-37 11:15:000.9[facility] QjgvdrfWEZYAEPVAF9774-11-38 11:15:000.1 [facility]annCHEM WPGDA8913-90-95 09:01:000.05[facility] HermannDRUG SCREEN 2014-10-26 06:40:00Negative (10/26/14 1:40 [...] HermannURINE AND STOOL 2014-10-26 06:40:005[facility]annURINE AND LJIAV4238-87-56 06:40:0028[facility]UR[facility] AND AXQEF2800-55-36 06:40:00Negative (10/26/14 1:40 AM)[facility] VZFLM9094-34-00 06:40:00Negative (10/26/14 1:40 AM)[facility] UFHEO3802-57-94 06:40:00Negative (10/26/14 1:40 AM)[facility] AND ALBMS8083-46-97 06:40:00<=1.0[facility]annURINE AND STOOL 2014-10-26 06:40:00Negative (10/26/14 1:40 AM)[facility]UR[facility] AND STOOL 2014-10-26 06:40:001.009[facility]annURINE AND CVIXE4962-87-63 06:40:00Slight *ABN*(10/26/14 1:40 AM)[facility] AND XDCMP8861-06-01 06:40:00Yellow (10/26/14 1:40 AM)[facility] AND JNBKD9677-11-52 06:40:005.0[facility] RtualukPKIFZIDFAH6617-26-55 02:45:00 Test Item Value Reference Range Interpretation Comments Angle (test code = Angle) 76.5 degrees 53.0-72.0 [facility] GyoclzbZXFXLHBEDL1656-93-33 02:45:00 Test Item Value Reference Range Interpretation Comments Max Amp (test code = Max Amp) 74.1 mm 50.0-70.0 [facility] FfkzyllCBTUDNFXED1988-01-27 02:45:0014.3[facility] HermannHEMATOLOGY 2014-10-26 02:45:00See Note 23(10/25/14 9:45 PM)[facility] HermannHEMATOLOGY 2014-10-26 02:45:003.4[facility] VwgezqjEYALZXIVXE7119-68-42 02:45:00 Test Item Value Reference Range Interpretation Comments K-time (test code = K-time) 1.0 min 1.0-3.0 [facility] RtgczxcEEAKFEDLVX6951-97-40 02:45:00 Test Item Value Reference Range Interpretation Comments R-time (test code = R-time) 5.1 min 5.0-10.0 [facility] RufjrlqDAWRCDIHIJ9126-94-94 02:45:000.9[facility] CakpqcxWJLTJD5281-50-01 02:45:0035[facility] SdexgapTTCUDN5610-73-52 02:45:0060[facility] HermannLIPIDS 2014-10-26 02:45:002.76[facility] OuoxywwEVTAMR2500-54-95 02:45:0054[facility] NijligoRKOYMT5418-07-49 02:45:71573Zdpduhuk WskwkelVAMOIC9466-46-22 02:45:79443 [facility] HermannSPECIAL ZBGIBMKMT9915-45-51 02:45:005.7[facility] HermannCHEM LYSDD4551-23-09 09:44:003.7[facility] HermannCHEM WCKCW7485-93-18 09:44:001.7 [facility] AayaqrwYDQDKHVYPXHD7384-81-10 09:44:0013.6[facility] HermannELECTROLYTES 2013-11-14 09:44:0087[facility] PbjptqtXECHVEDDDVLQ8054-34-90 09:44:0023[facility] JydlpkxTTNSNPDUJFVN0575-21-22 09:44:0070[facility] WpcriitVBEUUYZDDYRC8072-82-10 09:44:000.8[facility] EfxlhtzYJJXFHTOPPJO8269-34-11 09:44:14595Cidsbnwq [place] LLHHXVALTNCR5988-67-72 09:44:004.6[facility] UzdmiliPBSBYAJAESHG3545-89-89 09:44:95271Ftudzipo FjuuddbHPSHCTYJKZVY6203-31-99 09:44:0024[facility] [place] XZGWJRMOPOAL0327-93-74 09:44:008.8[facility] ExtfxwxPJAZQXHDQE4566-97-33 09:44:00 1.97[facility] XgxcwdcQAFEIENFUD2057-47-51 09:44:00 Test Item Value Reference Range Interpretation Comments PT (test code = PT) 22.1 s 12.0-14.7 [facility] FtgqhnsYVAKPS4991-73-47 09:44:0093[facility] PfrxlroCZPDIF4564-60-56 09:44:0066[facility] BqnaoyyFIVFAL7179-10-93 09:44:21087Dfturwko HermannLIPIDS 2013-11-14 09:44:38187Uapdvqyh MibatviJSRFTT8416-26-61 09:44:0038[facility] EqogbbaLOZOKE6808-67-91 09:44:005.18[facility] HermannDRUG HOQGSM9878-11-66 01:09:21Positive *ABN*(11/13/2013 20:09:21 [place])[facility] HermannDRUG USNHFC6291-17-86 01:09:21See Note 5(11/13/2013 20:09:21 [place])[facility]annDRUG DGVQJB3759-11-99 01:09:21Negative *NA*(11/13/2013 20:09:21 [place])[facility]annDRUG NNBYMW4365-16-10 01:09:21Positive *ABN*(11/13/2013 20:09:21 [place])[facility]annDRUG HJCNBV7547-02-46 01:09:21Positive *ABN*(11/13/2013 20:09:21 [place])[facility]annDR[facility] SYZSFC3828-16-28 01:09:21Negative *NA*(11/13/2013 20:09:21 [place]) [facility]annDR[facility] AQORVF0297-46-76 01:09:21Negative *NA*(11/13/2013 20:09:21 [place])[facility]annDR[facility] ALCPGZ7723-31-90 01:09:21Negative *NA*(11/13/2013 20:09:21 [place])[facility]annDRUG OKALBE6913-18-59 01:09:21Negative *NA*(11/13/2013 20:09:21 [place])[facility]annDRUG WKRJLJ2556-60-52 01:09:21Negative *NA*(11/13/2013 20:09:21 [place]) [facility]UR[facility] AND IVAKX5867-16-86 01:09:002[facility]UR[facility] AND FKTCS8803-24-09 01:09:00Slight *ABN*(11/13/2013 20:09:00 [place]) [facility] VWWFU0851-19-64 01:09:00Yellow *NA*(11/13/2013 20:09:00 [place])[facility] AND FELKD5298-89-66 01:09:006.5 [facility]UR[facility] AND MEWAO4250-75-17 01:09:001.024[facility]UR[facility] AND FMXQP1160-98-26 01:09:00Negative (11/13/2013 20:09:00 [place])[facility] AND EKDWI0759-95-40 01:09:00Negative *NA*(11/13/2013 20:09:00 [place])[facility] URAFS8072-13-27 01:09:00Small *ABN*(11/13/2013 20:09:00 [place])[facility] STOOL 2013-11-14 01:09:00Negative (11/13/2013 20:09:00 [place])[facility] ALICL6051-50-10 01:09:003[facility]URINE AND STOOL 2013-11-14 01:09:001[facility]annURINE XRCS1894-92-59 01:09:00Negative (11/13/2013 20:09:00 [place])[facility] HermannCARDIAC AGWVQXU5173-51-40 19:43:00<0.010[facility] HermannCARDIAC YJFCEYF4729-16-14 19:43:00<0.02 [facility] HermannCARDIAC TGUISIY4693-09-34 19:43:69924Stzxpeej HermannCARDIAC CIFVIAN0021-06-84 19:43:000.5[facility] HermannCARDIAC JCZXQXB0908-29-63 19:43:00 0.5[facility] HermannCHEM JUXOB1417-07-24 19:43:000.1[facility] HermannCHEM PANEL 2013-11-13 19:43:000.2[facility] HermannCHEM OAUZS5540-13-20 19:43:000.1[facility] HermannCHEM OWLEK4834-58-45 19:43:0024[facility] HermannCHEM TESTJ5306-82-05 19:43:000.9[facility] HermannCHEM TYPRH9269-07-25 19:43:0040[facility] HermannCHEM TAHNB1978-34-18 19:43:006.4[facility] HermannCHEM LZDPB5793-40-61 19:43:003.0 [facility]annCHEM UHIIR0373-67-16 19:43:003.4[facility] HermannCHEM PANEL 2013-11-13 19:43:59800Wbrdlivx HermannSPECIAL UFYFGGSYA7461-65-28 19:43:005.0 [facility] HermannCARDIAC DQKWJUW7931-85-40 09:29:000.6[facility] HermannCARDIAC HWEIAFC3557-41-38 09:29:00<0.02[facility] HermannCARDIAC GNKFZCA0422-69-17 09:29:000.6[facility] HermannCARDIAC MEISBBU7951-55-34 09:29:92177Rwumwart [place]rera CHEM JHISI6401-02-03 09:29:0075[facility] HermannCHEM QHNOB1400-82-61 09:29:0013.1 [facility]annCHEM GXUQY1906-21-43 09:29:0026[facility]annCHEM PANEL 2013-11-13 09:29:90090Olggynzd HermannCHEM LJBJC8354-50-61 09:29:008.6[facility] HermannCHEM AYZMU7159-56-69 09:29:000.9[facility]annCHEM NTTZB6482-00-21 09:29:0012[facility] HermannCHEM COZJU3296-20-45 09:29:004.1[facility] HermannCHEM THQDW8611-19-73 09:29:98606Usgbgwst HermannCHEM BIGCF6765-10-35 09:29:0081 [facility] XcumvwxJNIDCVUXFD4745-48-04 09:29:004.1[facility] HermannHEMATOLOGY 2013-11-13 09:29:001.4[facility] MlpujwpSGVVXQKIDK9825-30-36 09:29:000.0[facility] TuwesafNJBUYQREIJ7777-93-68 09:29:004.7[facility] LjoaeujWKLILBHNAP3968-89-19 09:29:006.0[facility] YqcdmrqUQGHWXGCEO2729-50-13 09:29:000.5[facility] AOMZSQUXLG4477-89-25 09:29:0041.0[facility] XufswyjPUCJCSGGKJ4441-41-56 09:29:00 53.5[facility] DlexhabKLPJUTQCGM8554-63-56 09:29:000.2[facility] HermannHEMATOLOGY 2013-11-13 09:29:000.0[facility] ZibqeulOZINLZQNXE9464-65-56 09:29:00 Test Item Value Reference Range Interpretation Comments PT (test code = PT) 24.2 s 12.0-14.7 [facility] CwxlcrlSAPXWMODTV5971-87-63 09:29:002.22[facility] HermannHEMATOLOGY 2013-11-13 09:29:00 Test Item Value Reference Range Interpretation Comments PTT (test code = PTT) 39.1 s 22.9-35.8 [facility] XmmvkcrVPCXHQXQOF2654-62-81 09:29:23284Nihvsudk HermannHEMATOLOGY 2013-11-13 09:29:0017.1[facility] ZvpivilMHDXREGWZQ6209-84-39 09:29:007.0[facility] XezzvytFFTBBJAASB9445-81-82 09:29:0033.7[facility] CukvxauAXQOXEHSMI7877-81-52 09:29:00 Test Item Value Reference Range Interpretation Comments MCH (test code = MCH) 28.2 pg 27.0-31.0 [facility] XyqczoxMXEFJCPROZ8280-77-57 09:29:004.35[facility] HermannHEMATOLOGY 2013-11-13 09:29:0011.4[facility] UaugsteEKQDHIDZYI9251-90-09 09:29:0083.7[facility] DbwgnqaZMJUTBRVPJ1765-39-94 09:29:0012.3[facility] BcsgegoZJGCKBRVVZ1406-53-43 09:29:0036.4[facility] QabqxohZEFWAIGVU5564-72-76 07:35:0015.8[facility] YRLDNVVUD1186-74-22 07:35:83122Ymcnbazf TlydcfhMIRQIGRKH7894-83-68 07:35:0023 [facility] EwmgyieOSHAXIDIA7959-76-18 07:35:81886Ijjhqwbd HermannCHEMISTRY 2013-05-12 07:35:000.3[facility] SwzhjysLSRACXVBV0025-29-92 07:35:007.7[facility] FzysmrnPWYBTGSIC3696-11-70 07:35:005[facility] YvckpzjAOWELUOFA7571-28-89 07:35:00 72[facility] GpovglxCDXOSXWIU4155-43-79 07:35:19270Zajjvvqz HermannCHEMISTRY 2013-05-12 07:35:003.8[facility] HbtvbvuORQOWHLJOT0949-42-83 07:35:007.8[facility] WmtmgqsJKXHUVAUEJ0609-39-45 07:35:003.5[facility] TdfqqqmGVGZCYBGBE7295-95-12 07:35:000.9[facility] KmzkaesGOYEHLNGFS7714-87-96 07:35:000.3[facility] [place] OJRQYEZTCP5017-82-27 07:35:000.1[facility] DaptxzvCODZZYVEUO2882-98-57 07:35:007.4 [facility] CuatjqtROACGIWUQZ0028-56-98 07:35:000.7[facility] HermannHEMATOLOGY 2013-05-12 07:35:0027.8[facility] LofwtlgJUZLNXRLKT4247-35-03 07:35:002.7[facility] FltcvnzEOMMYJDEDV3632-74-06 07:35:0061.4[facility] MaauxcuYVRKLBRBQI2927-21-70 07:35:0088.5[facility] GuuvweeVFVWIWCJPN7470-89-27 07:35:0015.2[facility] [place] ROSGYSABEE9876-64-18 07:35:0032.5[facility] VzcolhzESRVTMVXCT3391-19-98 07:35:00 252[facility] DdvkjhhVOEQPPLMBK5110-92-06 07:35:007.7[facility] HermannHEMATOLOGY 2013-05-12 07:35:0012.8[facility] VdxntlyWFIHBKZUKD5462-35-81 07:35:003.82[facility] SblbrgiJHGVVCEYAP0852-31-41 07:35:0011.0[facility] LccpscyRABRIIFJEM2455-21-70 07:35:0033.8[facility] AkrbyttXGVKUIFGOG8596-21-36 07:35:00 Test Item Value Reference Range Interpretation Comments MCH (test code = MCH) 28.8 pg 27.0-31.0 [facility] ZJGFAMV4524-37-99 11:52:0089[facility] [place] IBKQZRHKO7134-77-06 07:00:00Negative (05/11/2013 02:00:00)[facility] RJFLICOZI3872-20-73 07:00:00Negative (05/11/2013 02:00:00)[facility] VMCEXDPAQ7621-11-97 07:00:00Negative (05/11/2013 02:00:00)[facility] VZNJVYRMY1030-31-01 07:00:00Negative (05/11/2013 02:00:00)[facility] [place] BHEJZZGJW6789-79-18 07:00:00Positive *ABN*(05/11/2013 02:00:00)[facility] ADOMMYLNR9158-86-45 07:00:00See Note 12(05/11/2013 02:00:00)[facility] DXPXIMHNT3829-18-76 07:00:00Negative (05/11/2013 02:00:00)[facility] JLCIZXXSL3439-24-04 07:00:00Negative (05/11/2013 02:00:00)[facility] ICMUYKYIJ1008-42-19 07:00:00Negative (05/11/2013 02:00:00)[facility] TFRJQYYME2674-77-54 07:00:00Negative (05/11/2013 02:00:00)[facility] YCTLFYMHG0052-13-66 07:00:001.09[facility] OggidzkGPGNKFCMJ5135-72-92 07:00:001.07 [facility] OhawejeEHEODJFWR9415-33-01 07:00:002.0[facility] HermannCHEMISTRY 2013-05-11 07:00:002.6[facility] PcncuvkICGAAWNLQ3625-85-40 07:00:40737Fcukhwxx BzhrljuSKJARWQAX3347-88-39 07:00:008.0[facility] KictizeZVJLVLCBM7247-40-20 07:00:0017.7[facility] ZfydsbsMJUPRRBVQ0701-99-81 07:00:007[facility] IVLFIRVOO4819-63-67 07:00:0059[facility] VrgaqmvLYQVQTZMO4989-85-57 07:00:000.6 [facility] SqsogfxYCXYTHHDN6301-80-91 07:00:21378Nxoztbxo HermannCHEMISTRY 2013-05-11 07:00:003.7[facility] DofkzggPNYSBNDMV3315-44-68 07:00:48760Vtupsubf UglqlbhOMILOECSD1514-46-94 07:00:0021[facility] AdzjywnZYTFVKTBL8661-56-93 07:00:00See Note 13(05/11/2013 02:00:00)[facility] HrerliwWVQBKGTWBD5706-58-07 07:00:0017.2[facility] NfeyotrERXIMYLEHD8955-41-59 07:00:18660Yxrdzzap [place] ZUQGMFITPV0108-87-80 07:00:008.7[facility] VdxfibxXFBWNYQFCK7914-88-18 07:00:00 88.4[facility] IwlztpgHALEEYQVUK7168-73-88 07:00:00 Test Item Value Reference Range Interpretation Comments MCH (test code = MCH) 29.4 pg 27.0-31.0 N [facility] ZajufwzIIOCXKHNLS0349-92-74 07:00:0015.3[facility] HermannHEMATOLOGY 2013-05-11 07:00:0033.2[facility] ZrmapigDEVLVCKWQL6925-77-28 07:00:003.75[facility] BlsksfmYHOVROMQEM0018-76-85 07:00:0011.0[facility] JksxhyyMHGLYVZLMP8284-91-35 07:00:0033.1[facility] IkdffbiUWCGOVXHHM9396-91-56 07:00:004.4[facility] [place] CPJBJIRZFJ7255-84-06 07:00:0077.7[facility] ZaxjugwPPRCMQVLGU1078-38-20 07:00:00 0.8[facility] IflinepDIFOZVZSES3837-26-46 07:00:0013.4[facility] HermannHEMATOLOGY 2013-05-11 07:00:002.7[facility] VnxzxsnHCIUYNOCDY6510-02-32 07:00:000.8[facility] JnipwmlNWVUMBUNSF6015-09-15 07:00:001.5[facility] BvtwaczILJGUHHHLX4482-20-52 07:00:0015.6[facility] QopqxrxDMQIITBNVT7145-82-13 07:00:000.1[facility] RXCACWXZGO3694-15-76 07:00:000.3[facility] HermannBEDSIDE GLUCOSE TESTING 2013-05-11 04:53:0079[facility] QmnmlbhOMLRXNDYCU3441-60-96 23:12:64915Bcqclujy WhgyoptNVTARZAZFC8532-51-47 23:12:00Positive (05/10/2013 18:12:00)[facility] UgmaustYLUPAIRYAW8688-74-36 23:12:001.06[facility] UmpzmmyYWDTOVWBZA5803-96-14 23:12:0070[facility] ZfnlalgQRFYYEVVUF2518-70-21 23:12:00>100 mm/hr *ABN*(05/10/2013 18:12:00)[facility] XmfnudyMKBNECYWDM1784-54-73 23:12:0035 [facility] WxpyseoLQPFESXARS1443-54-69 23:12:0068[facility] HermannIMMUNOLOGY 2013-05-10 23:12:001[facility] JtcvcwoOPHCAKYPPX2647-70-88 23:12:001[facility] NaniskqOPAJYLXDJN9669-91-17 23:12:005.2[facility] KmehnbkGRWMDVIJBM4727-15-88 23:12:0040[facility] AxwznscFQNHSIWSUL5654-79-15 23:12:00051Dfprhkbd [place] OQORCTOMZS1039-83-92 23:12:00Negative *NA*(05/10/2013 18:12:00)[facility] [place] IRPDCMMJDP0075-29-58 23:12:00>190.0[facility] HermannBACTERIAL - SEROLOGY 2013-05-10 21:41:00Negative (05/10/2013 16:41:00)[facility] CTMQGYXH8729-94-22 21:41:00Negative 1(05/10/2013 16:41:00)[facility] BEDSIDE GLUCOSE MBMMEXP0566-82-46 16:57:0096[facility] PzbteheUXBCHUZSTV9687-57-42 14:50:398[facility] IctdecdUFYJTNHHUR9375-50-21 14:50:39Few /LPF *NA*(05/10/2013 09:50:39)[facility] PmnuspbXRZJODBMOB4755-19-70 14:50:39<1[facility] PAVITOWARK2684-04-19 14:50:39Few /LPF *NA*(05/10/2013 09:50:39)[facility] FBMVVYBJGF7999-90-19 14:50:39<1[facility] AauecphUXGWHOAIUT9509-23-92 14:50:39 Negative (05/10/2013 09:50:39)[facility] GlpxtjtCYRAKTDHRJ4285-78-78 14:50:39 Negative (05/10/2013 09:50:39)[facility] QdvljavMULCFADVAE2403-39-96 14:50:39 Negative (05/10/2013 09:50:39)[facility] RksmsvtOKRIFYZPMB7044-88-61 14:50:39 Negative mg/dL *NA*(05/10/2013 09:50:39)[facility] GdtzectAEVTPWAEJQ3832-90-70 14:50:39Negative *NA*(05/10/2013 09:50:39)[facility] EdhvloxTZKDOJWOXX8470-78-12 14:50:391.006[facility] QxnzehvLARJYONQZN8933-22-26 14:50:39Clear (05/10/2013 09:50:39)[facility] OzsijyjPWQRXMGRLA3121-01-94 14:50:39Light Yellow *NA*(05/10/2013 09:50:39)[facility] HyfdrbwTDTUNOGAZF4507-43-67 14:50:39Negative mg/dL (05/10/2013 09:50:39)[facility] ZwhknciUNOFSMLDZR7124-88-08 14:50:397.5 [facility] HqdstlcXYHKMHTYS1765-18-75 07:52:0087[facility] HermannCHEMISTRY 2013-05-10 07:52:72104Slgmeesg NibipnrDQJEJPRXL6412-90-48 07:52:0014.6[facility] KyblgmxIHVCGQIWZ6968-11-88 07:52:007.8[facility] RykyhwhQFNBLRNFC2788-19-77 07:52:31520Dqbeppia NlbtcmfHRCFTFCAK3301-33-20 07:52:003.6[facility] ZBIHZSQRX3550-30-89 07:52:0024[facility] SoofzszDJHSLPBIH0196-81-71 07:52:000.8 [facility] YvtklfaAMEBZAWIB1292-73-92 07:52:007[facility] CxzteanEAOUQPQND5960-32-79 07:52:0051[facility] QjjxjapHUSFMRQXR6572 07:52:001.6[facility] MTVAALHSZ9737-77-86 07:52:002.2[facility] EgpandgKUIAZYPFJY3778-85-91 07:52:00 Test Item Value Reference Range Interpretation Comments MCH (test code = MCH) 29.1 pg 27.0-31.0 N [facility] CfusjkfTTKXCYIGJB0042-96-25 07:52:0033.8[facility] HermannHEMATOLOGY 2013-05-10 07:52:0089.2[facility] OdjozytLTCRBAVARJ9064-19-14 07:52:0011.0[facility] KdpunxuRBIAFQXDWN7685-40-74 07:52:008.5[facility] TserbuiWDHGLGBEGR4848-50-10 07:52:59046Zthwzmsa LjjaiobJBQKHQKFXO8410-51-76 07:52:0015.1[facility] EVXYKEWAML3656-07-40 07:52:0032.6[facility] WbotbruNSSBPJLYXS4046-46-24 07:52:00 3.79[facility] DzmldvdRKXXEJTAZM4331-67-16 07:52:0022.1[facility] HermannHEMATOLOGY 2013-05-10 07:52:000.1[facility] PgoriuoUBKVTDRPYY3253-23-22 07:52:000.6[facility] ElbkbglZELRNKBELQ3180-84-82 07:52:000.2[facility] ErfmukxQHTUGIIVYJ3582-24-61 07:52:0083.0[facility] CauepzaCPJHIDRJIH2704-57-53 07:52:002.9[facility] VIUMEUCJVN3181-38-74 07:52:0018.3[facility] CnxnljiZFMPXKWMAU2955-64-48 07:52:00 0.4[facility] YjbxpslVUKTUVXHDN7553-38-79 07:52:001.0[facility]annHEMATOLOGY 2013-05-10 07:52:0012.9[facility] EtttpzmFIZSVDKYRE3912-29-01 07:52:002.7[facility] VyoldhlIPBDPFSZVN1351-43-13 19:56:0055[facility] JioycjxFKBVBURNUK4187-72-76 19:56:11172Rgrumkmb OqgonzgCVGBQONTNU1735-09-48 19:56:49441Pdaotatw [place] SOTUBOCZZD2831-01-47 19:56:00Negative (05/09/2013 14:56:00)[facility] UZXICGAJSZ0642-61-33 19:56:00Negative (05/09/2013 14:56:00)[facility] QBSVFOKSCO7999-69-38 19:56:00Negative (05/09/2013 14:56:00)[facility] IIWJCMJXOB7993-06-16 19:56:00>190.0 mg/L 15(05/09/2013 14:56:00)[facility] OuvalorRWOMOSJGBI7063-91-97 19:56:00Negative (05/09/2013 14:56:00)[facility] VclxkzlTFWPQIJEHR0875-85-34 19:56:0034[facility] WijtbaaHIJLHVVEX5813-58-78 16:10:242.3[facility] NmzdsxkPFCDCWVHW6080-51-35 16:10:241.4[facility] QSVHGXVGT8680-73-92 16:10:191.8[facility] VrfdkpgAMGVTMFKN9243-57-43 10:34:0071 [facility] LbmblpsAQNVLBGXK5128-09-04 10:34:0036[facility] HermannCHEMISTRY 2013-05-09 10:34:90079Umeewpos WzyjmqqGHCIFPPXY8467-06-17 10:34:66583Yyfpbmcu PegvcctCTVVPBQPL0226-34-28 10:34:003.67[facility] PoftphzXGFHCJNUN1674-69-64 10:34:004.9[facility] RzgtdjlIPYIQMGQN9414-20-47 00:11:00Negative *NA*(05/08/2013 19:11:00)[facility] EohewklADDHRKHYC2090-33-54 00:11:00See Note 11(05/08/2013 19:11:00)[facility] AowspacNUHYFRDXG6136-02-62 00:11:00Positive *ABN*(05/08/2013 19:11:00)[facility] TmomhbcWGDROOTTW5900-80-77 00:11:00Negative *NA*(05/08/2013 19:11:00)[facility] OqawbuxZFQAZJPMM2857-95-38 00:11:00Negative *NA*(05/08/2013 19:11:00)[facility] GlnpgtqUEFRBYBGV5440-20-04 00:11:00Negative *NA*(05/08/2013 19:11:00)[facility] XmqdeqoISSMPWYZK7907-78-03 00:11:00Negative *NA*(05/08/2013 19:11:00)[facility] YuxcsbgTBDYUVIYR3087-14-29 00:11:00Negative *NA*(05/08/2013 19:11:00)[facility] ZfsftbtJVTHUGCIC0946-33-34 00:11:0054[facility]annCHEMISTRY 2013-05-09 00:11:005.8[facility] DkmttwyZAJCTGNVS6644-77-02 00:11:000.2[facility] RohnqutSGESGAWGK6341-83-20 00:11:002.8[facility] IaspwvwXVTVHZSTQ0520-55-01 00:11:0095[facility] MzozoewYLNLFCTQR6733-68-31 00:11:0029[facility] NALLMMKZF9205-29-21 00:11:000.9[facility] PvvfqsuVNDLSPEYW5172-31-15 00:11:0015 [facility] EkhfwszSWTTVNUNZ6790-61-63 00:11:003.0[facility] HermannURINALYSIS 2013-05-09 00:11:00Slight *ABN*(05/08/2013 19:11:00)[facility] HermannURINALYSIS 2013-05-09 00:11:001.013[facility] TeaxoncIELPIBWZLL3604-42-90 00:11:00Small *ABN*(05/08/2013 19:11:00)[facility] YaipzbrUWGHOBLDMN1305-96-19 00:11:00Negative (05/08/2013 19:11:00)[facility] MhtasmgRAWKEUDAYK4442-90-20 00:11:00Negative (05/08/2013 19:11:00)[facility]rxlsmxBNOFEDEOVQ4285-47-85 00:11:005.0[facility] RgcezwtDWRSIFPYES4489-95-21 00:11:0030 mg/dL *ABN*(05/08/2013 19:11:00)[facility] HospitalYqvzupvPLQNZBNBYV7274-44-43 00:11:00Negative mg/dL *NA*(05/08/2013 19:11:00) [facility] HospitalLwmxdbvKOZRUHOTDN8373-22-27 00:11:00Yellow *NA*(05/08/2013 19:11:00) [facility] HospitalZzoxymnRRFXUMIDBJ4476-41-85 00:11:00Few /LPF *NA*(05/08/2013 19:11:00) [facility] HospitalOyvqochPJTJOULVIU8109-95-79 00:11:001[facility]annURINALYSIS 2013-05-09 00:11:00Negative mg/dL *NA*(05/08/2013 19:11:00)[facility] VTXULSANJH5156-59-77 00:11:00Negative *NA*(05/08/2013 19:11:00)[facility] ETIBIYCRIO7369-07-17 00:11:00Few /LPF *NA*(05/08/2013 19:11:00)[facility] CTKRLRSFGU1141-35-28 00:11:00Occasional /HPF *NA*(05/08/2013 19:11:00)[facility]annBEDSIDE GLUCOSE HJSZDHS5714-07-28 12:28:0087[facility]annCHEMISTRY 2012-07-21 08:53:99402Aruyniko AgkylraWTJSBVZBE0408-40-16 08:53:0024[facility] NxdhfhdEDJQVJDBZ7182-16-26 08:53:48478Gwyozjeu EcrjdpoKUEKJBYXJ8421-47-88 08:53:59364Fueyfqjp FbuuffaQXENZVNPU7501-54-39 08:53:008.08[facility] GPQLGYCQV9982-83-31 08:53:003.2[facility] XfnyjybSHZYUJHGG0907-54-20 08:53:001.9 [facility] HbkibkzYBPWJBFGT8672-36-75 08:53:0014.1[facility] HermannCHEMISTRY 2012-07-21 08:53:009[facility] YkjdkrzIMSPXVUZH2830-70-85 08:53:0077[facility] VvbgxryHXIXAXSXC5969-76-42 08:53:38440Dplhcacx VejytbdPGILEWDGS2732-45-58 08:53:96564Rtnyfmlp TtbhoveLCYSUUVKC2203-00-28 08:53:61399Uwlupwkn [place] BZDKFDOCI1192-83-71 08:53:004.1[facility] ZofamtnHWYECVBOR9833-76-04 08:53:000.7 [facility] JoeyhbsWHECOWQTH3341-03-34 08:53:0027[facility] HermannCHEMISTRY 2012-07-21 08:53:008.0[facility] PgirungMXUKMPDRE1273-06-17 08:53:005.8[facility] GskuynzAXYOORNKYC5027-65-29 08:53:006.8[facility] ZbmuillIPKQPTIPON9469-33-74 08:53:85364Ejoqmsde BwgjgzoZWTSTAJFYW9605-52-22 08:53:0088.7[facility] RVGFMUWJVS2160-06-12 08:53:00 Test Item Value Reference Range Interpretation Comments MCH (test code = MCH) 29.4 pg 27.0-31.0 N [facility] TftasjaDBFKCUGLGS5618-13-66 08:53:0033.1[facility] HermannHEMATOLOGY 2012-07-21 08:53:0015.0[facility] ZngzffqPZPHUWFBTL3037-16-57 08:53:0038.4[facility] MjhymkjVEIJDXNQCS6281-92-33 08:53:004.34[facility] JttqippRQNRJMSSXN8321-68-39 08:53:0012.7[facility] XtaadmpKFJPFQGLFY0177-37-51 08:53:0011.7[facility] NWIARWCTWS4662-68-60 08:53:000.5[facility] VyewczrDKPNQDHSEC7330-33-56 08:53:005.9 [facility] UzzzidmTLOKGKQDYN4915-91-93 08:53:006.0[facility] HermannHEMATOLOGY 2012-07-21 08:53:0041.5[facility] NyxipopAYLZJHMKQR7464-67-19 08:53:001.9[facility] XsxymabXPUVOFWTEX7861-99-59 08:53:0050.1[facility] YgitbzzWKTAGDBQWV9464-96-16 08:53:000.7[facility] PhfptrzSSHNKWYIBV5970-46-03 08:53:004.8[facility] CTEHLHWUFK9606-50-38 08:53:000.2[facility] FvljlrmKKTZARFVPF9234-64-87 08:53:[address] [facility] HermannBEDSIDE GLUCOSE JPIUYKU3939-40-39 02:50:92509Algnbdeo [place] PGDTPDLJYR7451-44-02 01:10:00Yellow *NA*(07/20/2012 19:10:00)[facility] [place] JNLSUQPLGJ2405-77-83 01:10:0020 mg/dL *ABN*(07/20/2012 19:10:00)[facility] XBPUNTXFSY0655-59-26 01:10:006.5[facility] GdlsixnSQEAOIPGDH7052-16-87 01:10:00 Negative mg/dL *NA*(07/20/2012 19:10:00)[facility] QyxeisbRFBMIJEZBU8519-24-76 01:10:001.020[facility] BtiskhlXPJKNODLDC9836-01-49 01:10:00Slight *ABN*(07/20/2012 19:10:00)[facility] JydrzyvHVXTHXQESN2299-57-84 01:10:00Negative (07/20/2012 19:10:00)[facility] AabpzfpGPIOFXCVEO8813-34-56 01:10:00Trace *ABN*(07/20/2012 19:10:00)[facility] KpbvhqfTERKRHBYDQ1434-34-48 01:10:00Many /LPF *ABN*(07/20/2012 19:10:00)[facility] TdzekdePXDYIAULAM4633-41-40 01:10:00Small *ABN*(07/20/2012 19:10:00)[facility] UmzniefDVHWYJLMEJ6164-42-33 01:10:00Negative *NA*(07/20/2012 19:10:00)[facility] GxkbukyVDRHIAZRHZ4244-02-11 01:10:00Occasional /HPF *NA*(07/20/2012 19:10:00)[facility] ScgluavIKLOKRABVG2624-70-71 01:10:00Few /LPF *NA*(07/20/2012 19:10:00)[facility] SozowsjSRRAGZBTRJ2331-76-60 01:10:00Few /HPF *NA*(07/20/2012 19:10:00)[facility] VhhetgmKZQNRLRDNF9560-33-24 01:10:001 [facility] UogzcjaQJLRDASNJE3931-12-56 01:10:006[facility] HermannURINALYSIS 2012-07-21 01:10:001[facility] HermannBEDSIDE GLUCOSE ZAPDBEC4994-89-67 12:05:0086 [facility] OoqftegNFIWXNCTU8601-84-97 08:50:0014.7[facility] HermannCHEMISTRY 2012-07-20 08:50:0088[facility] QerbogzUJWFVYWKV0738-06-86 08:50:0077[facility] JxrvkpnMVCIMYTPO2217-65-50 08:50:0013[facility] PnoiewgBBAMCZBRS5694-81-45 08:50:000.8[facility] RwbzbcuYKUSLJHNH9633-51-88 08:50:90189Pwbiocxj [place] CBMPKVDSL4654-20-06 08:50:003.7[facility] CofgibyHLMSNCIAW3868-96-46 08:50:0097 [facility] OjfqeszGUGTJMUNB2699-97-11 08:50:0029[facility] HermannCHEMISTRY 2012-07-20 08:50:008.3[facility] PzpelzdOEVGMDWICK1605-40-59 08:50:000.7[facility] QmiycwlJRSLKAVUYR1824-97-85 08:50:004.3[facility] DkdajqeDALZUBZGSN4575-88-92 08:50:006.9[facility] WdhlymrZNUBGEUGSV8726-25-58 08:50:000.8[facility] IYBUAYRIYJ4842-36-32 08:50:001.2[facility] BrudctlEDUEUQHIIV3666-46-75 08:50:000.1 [facility] FeohktiTTVIKVQKBJ6196-92-26 08:50:000.1[facility] HermannHEMATOLOGY 2012-07-20 08:50:005.6[facility] ValufpdWPPXOLEMDS0357-59-67 08:50:0035.7[facility] RdcqxgwNMECCOBRAG0815-18-02 08:50:0056.7[facility] KjosjakHTMOWPGDHL0151-66-86 08:50:0088.3[facility] XoxpspwHSTOQQDMTQ2335-72-66 08:50:0041.1[facility] ENVJMDRSHS0616-14-68 08:50:0013.7[facility] ZlbwoseZSMELVKQTG5822-67-10 08:50:00 4.66[facility] ZnsfsblXERWTXPVYH9880-58-21 08:50:0012.2[facility] HermannHEMATOLOGY 2012-07-20 08:50:006.8[facility] WnurzeoMZJJFCONXF8949-06-92 08:50:70595Vfxizsve XtvtzohUCJZENITGE7581-02-52 08:50:0015.6[facility] GzkyqhtTXUIMYXOHU4962-18-58 08:50:0033.3[facility] CoqkqgzPQWZBDJRSS6834-15-27 08:50:00 Test Item Value Reference Range Interpretation Comments MCH (test code = MCH) 29.4 pg 27.0-31.0 N [facility] QISCRDK7378-22-20 13:30:00Negative (07/19/2012 07:30:00)[facility] YzyfhvpOAOCMCMQK3754-33-66 13:30:0062[facility] HermannCHEMISTRY 2012-07-19 13:30:0067[facility] CecdhtgSBXNCBASG9810-86-87 13:30:0030[facility] FjeduicKFVAYEUSQ6988-73-69 13:30:008.8[facility] QlfmmtkGBSWXIAPH8459-61-79 13:30:0012[facility] KoedrevNSDPWXYAE6120-93-82 13:30:001.0[facility] GQMZCUZHR0710-09-82 13:30:89477Sjdpegyk InwbdngALAKEEZAI3911-25-71 13:30:004.1 [facility] CvdoztrTWSPMNBBL9194-61-04 13:30:0099[facility] HermannCHEMISTRY 2012-07-19 13:30:53938Coxxwgya HnsndjxPCXTZAXNT8728-75-21 13:30:0013.1[facility] SivwyfmPOEPLUUSY4755-37-43 13:30:00<0.02[facility] RjagkbsPWNBITXVMF9752-75-14 13:30:001+ *ABN*(07/19/2012 07:30:00)[facility] WihvofpRSHSQTPXGU9558-45-96 13:30:000.0[facility] FyeccveBQLOVCWVWV5137-54-87 13:30:00Slight *ABN*(07/19/2012 07:30:00)[facility] HybbtmgYJFXNADGVD4205-48-85 13:30:00Slight (07/19/2012 07:30:00)[facility] FkpwecyCBICFCUBVD6721-03-69 13:30:000.0[facility] USQSXNXSZJ0447-11-34 13:30:004.0[facility] IewasmgQTPXJKPNTB8870-59-31 13:30:00 30.0[facility] VdaumafOTPYXSDWZV1530-64-10 13:30:001.0[facility] HermannHEMATOLOGY 2012-07-19 13:30:005.4[facility] PoaqtjaBMKVMTNCWC5879-93-96 13:30:0011.8[facility] WunfaitAPHSFFCJED4038-41-18 13:30:000.2[facility] YwludpoFJZKQTUKDY2044-74-35 13:30:000.7[facility] HhwqpqrLOZOSTSUKN1341-67-30 13:30:0065.0[facility] RYQAFMVNPD0510-16-75 13:30:000.97[facility] UnqpnkpHRQLYDLLSK1974-11-44 13:30:00 Test Item Value Reference Range Interpretation Comments PT (test code = PT) 13.1 s 12.0-14.7 N [facility]XlppoipOZNEIBIPAX3839-71-04 13:30:004.1[facility]annHE[facility] 2012-07-19 13:30:00 Test Item Value Reference Range Interpretation Comments ACT (TEG) (test code = ACT (TEG)) 113 s 86-118 N [facility] CenterCiznrudZAKFQOUQXB6601-13-87 13:30:00 Test Item Value Reference Range Interpretation Comments Split Point (test code = Split Point) 0.6 min [facility] CenterLrbfztiTLYUHAZBJV2511-18-53 13:30:00 Test Item Value Reference Range Interpretation Comments Angle (test code = Angle) 82 degrees 64-80 H [facility] CenterRukujbxXWRZYVBSGL0579-83-46 13:30:00 Test Item Value Reference Range Interpretation Comments Max Amp (test code = Max Amp) 81 mm 52-71 H [facility] CenterDxdcjftNIOHNGAFFV0561-80-59 13:30:00 Test Item Value Reference Range Interpretation Comments K-time (test code = K-time) 0.8 min 0.6-2.3 N [facility] HospitalPysoquiQVGLUZTOOC9262-17-37 13:30:0020.9[facility]annHE[facility] 2012-07-19 13:30:00 Test Item Value Reference Range Interpretation Comments R-time (test code = R-time) 0.7 min 0.4-0.7 N [facility] HospitalQiidpjlPJFOLQZCZX3285-87-13 13:30:00 Test Item Value Reference Range Interpretation Comments PTT (test code = PTT) 32.1 s 22.9-35.8 N [facility] HospitalHhbitboYOPIWYKVQD4659-96-81 13:30:0015.0[facility]annHEMATOLOGY 2012-07-19 13:30:005.06[facility] YmmaemwERLWUOHWYE1989-10-07 13:30:0014.8[facility] TyvtnsfHQXAVTUNII6385-07-31 13:30:0033.3[facility] ZvunusrDAUEUXCOAJ0167-45-09 13:30:0018.1[facility] EpuetprMDDEHTMTWE7694-51-66 13:30:0044.9[facility] UOLQNJLTAY1515-16-88 13:30:007.1[facility] DbsluekCKBSPHJEFA9997-67-25 13:30:00 Test Item Value Reference Range Interpretation Comments MCH (test code = MCH) 29.5 pg 27.0-31.[address] [facility] NpycyshRIHRJUSBFL0964-07-14 13:30:0088.8[facility] HermannHEMATOLOGY 2012-07-19 13:30:15072Ewnavyok [place]
--- OUTSIDE RECORDS SUMMARY | 2020-09-13 10:43 | XMS REPORT | Summary of Care ---
:1965 Author Organization [facility] Address [address] [place] [id number] Care Team Providers Name Role Phone James Burton Primary Care Provider Reason for Referral (Routine) Status Reason Specialty Diagnoses / Referred By Referred To Procedures Contact Contact New Request Cardiology Diagnoses Coronary artery disease involving yomba shoshone coronary artery of yomba shoshone heart without angina pectoris Atypical chest pain S/P CABG (coronary artery bypass graft) Essential hypertension Chronic diastolic heart failure Dyslipidemia Escobar, Sendil History of CVA ( cerebrovascular accident) BRO (dyspnea on exertion) Jimmie Cannon MD Procedures CARDIO LOOP MONITOR [address] [place] [address] Reason for Visit Reason Comments Follow-up 7mo Encounter Details Date Type Department Care Team Description 07/20/2020 Office Visit [facility] Escobar, Sendil Coronary herson ry disease involving yomba shoshone coronary artery of yomba shoshone heart without angina pectoris (Primary Dx); Cardiology- Jairo Cannon MD Atypical chest pain; [address] S/P CABG (coronary artery bypass graft); Drive, [address] Essential hypertension; [place], [place] Chronic diastol ic heart failure; [id number] Dyslipidemia; [phone] History of CVA (cerebrovascular accident ); [phone] BRO (dyspnea on exertion); (Fax) Thrombocytopeni a Allergies Active Allergy Reactions Severity Noted Date Comments Prochlorperazine Edisylate Nausea and/or 08/21/2005 Vomiting Divalproex Sodium Anxiety 08/21/2005 Gabapentin Unknown - See 01/02/2008 Blurred vision comments Nsaids (Non-Steroidal Nausea and/or 06/15/2015 Anti-Inflammatory Drug) Vomiting Butorphanol Tartrate Rash 08/21/2005 Ketorolac Tromethamine Rash 08/21/2005 documented as of this encounter (statuses as of 07/20/2020) Medications Medication Sig Dispensed Refills Start End Date Status Date atorvastatin 80 mg Take 1 tablet 30 tablet 3 Active tabletIndications: by mouth at 0 S/P CABG (coronary bedtime. artery bypass graft), Coronary artery disease involving yomba shoshone coronary artery of yomba shoshone heart with angina pectoris LORazepam 2 mg tablet Take 1 tablet 0 Active by mouth 2 0 (two) times daily. SERTraline 100 mg Take 1 tablet 0 Active tablet by mouth daily. 0 buPROPion SR 100 mg Take 1 tablet 60 tablet 0 Active SR tabletIndications: by mouth 2 0 NSTEMI (non-ST (two) times elevated myocardial daily. infarction), Bacteremia due to Enterobacter species zolpidem (AMBIEN) 10 Take 10 mg by 0 Active mg tablet mouth at bedtime as needed for Insomnia. topiramate 50 mg Take 50 mg by 0 Active tablet mouth 2 (two) 0 times daily. FUROSEMIDE 40 mg TAKE ONE TABLET 30 tablet 11 Active tabletIndications: BY MOUTH ONCE 0 Coronary artery DAILY NEEDED disease involving FOR LEG yomba shoshone coronary SWELLING AND artery of yomba shoshone BODY WEIGHT heart with angina pectoris, NSTEMI (non-ST elevated myocardial infarction) METOPROLOL TARTRATE TAKE ONE TABLET 60 tablet 11 Active 50 mg BY MOUTH TWICE 0 tabletIndications: A DAY NSTEMI (non-ST elevated myocardial infarction), Bacteremia due to Enterobacter species hydrOXYzine 50 mg Take 50 mg by 0 Active tablet mouth 3 (three) times daily. KLOR-CON M20 20 mEq TAKE ONE TABLET 30 tablet 1 Active tabletIndications: BY MOUTH DAILY 0 Coronary artery WITH LASIX disease involving NEEDED yomba shoshone coronary artery of yomba shoshone heart with angina pectoris, NSTEMI (non-ST elevated myocardial infarction) clopidogreL (PLAVIX) Take 75 mg by 0 Active 75 mg tablet mouth daily. aspirin 81 mg EC Take 81 mg by 0 Active tablet mouth daily. nitroglycerin [address] 0.4 mg 0 Active sublingual tablet under the tongue every 5 (five) minutes as needed for Chest pain. proMETHazine 25 mg Take 1 tablet 30 tablet 0 Active tabletIndications: by mouth every 0 Coronary artery 8 (eight) hours disease involving as needed for yomba shoshone coronary Nausea and artery of yomba shoshone Vomiting (N/V) heart without angina for up to 30 pectoris, Atypical doses. chest pain, S/P CABG (coronary artery bypass graft), Essential hypertension, Chronic diastolic heart failure, Dyslipidemia, History of CVA (cerebrovascular accident), BRO (dyspnea on exertion), Thrombocytopenia promethazine HCl Take 25 mg by 0 07/20/20 Discontinued (PHENERGAN ORAL) mouth as needed 20 for Nausea and Vomiting (N/V). colchicine 0.6 mg Take 1 capsule 60 capsule 0 Discontinued CapIndications: by mouth 2 0 20 Pericardial effusion (two) times daily. apixaban 5 mg Take 1 tablet 60 tablet 1 07/20/20 Di scontinued tabletIndications: by mouth 2 0 20 deep vein thrombosis (two) times prevention daily. Indications: deep vein thrombosis prevention proMETHazine 25 mg Take 25 mg by 0 0 Discontinued tablet mouth every 8 0 20 (eight) hours as needed. documented as of this encounter (statuses as of 07/20/2020) Active Problems Problem Noted Date Weakness 12/25/2019 Pericardial effusion 10/25/2019 Arm DVT (deep venous thromboembolism), acute, left 04/2020 Chest pain 10/24/2019 NSTEMI (non-ST elevated myocardial infarction) 020 Left sided numbness 09/03/2019 S/P CABG (coronary artery bypass graft) 06/30/2019 Leukocytosis 06/16/2019 Tachycardia 06/15/2019 Coronary artery disease involving yomba shoshone coronary herson ry of yomba shoshone heart 06/08/2019 with angina pectoris Overview: Added automatically from request for ilan de la cruz [id number] Sepsis 05/03/2019 Obesity (BMI 30-39.9) 05/03/2019 Other [...] as of this encounter (statuses as of 07/20/2020) Immunizations Name Administration Dates Next Due Influenza [...] Assigned at Date Recorded Not on file COVID-19 Exposure Response Date Recorded In the last month, have you been in contact with No / Unsure 07/20/2020 1:14 PM [facility]IOR [facility] someone who was confirmed or suspected to have Coronavirus / COVID-19? documented as of this encounter Last Filed Vital Signs Vital Sign Reading Time Taken Comments Blood Pressure 133/92 07/20/2020 1:29 PM SENIOR GAMEM[facility] Pulse 87 07/20/2020 1:29 PM [facility]ENIOR GAM[facility] Temperature - - Respiratory Rate 19 07/20/2020 1:29 PM SENIOR GAMEMASTER Oxygen Saturation 99% 07/20/2020 1:29 PM SENIOR GAMEMASTER Inhaled Oxygen Concentration - - Weight 67.7 kg (149 lb 3.2 oz) 07/20/2020 1:29 PM SENIOR GAMEM[employer]ER Height 160 cm (5' 3") 07/20/2020 1:29 PM SENIOR GAMEMASTER Body Mass Index 26.43 07/20/2020 1:29 PM SENIOR GAMEMASTER documented in this encounter Progress Notes Ludwig Escobar MD - 07/20/2020 10:00 AM CST [facility] Cardiology Consult Note Patient: Delilah Whyte Date of : 1965 Primary Care Physician: James Burton CHIEF COMPLAINT: Chief Complaint Patient presents with Follow-up 7mo History of Present Illness: Delilah Whyte is a 54 year old female presents to clinic for follow up for CAD/CABG and recent hospital stay 06/2020. History from patient herself along with her . Records from reviewed which needs to be merged with this current chart. Since the last OV 12/2019, She reports getting admitted in 05/2020 with IA in [facility].Underwent coronary angiogram and also reports having a stent placement. No details available. Formsigned to get the discharge summary/angiogram report/echo 06/2020 she was admitted in [place] again for abdominal pain diarrhea noted to have C. difficile colitis. During the time also she was noted to have mild elevated troponins at 0.6. No EKG changes and echocardiogram was preserved. Attributed to type II IA. Cardiology was consulted during that admission. She also has an venous Doppler which is noted to be negative. She reports having atypical chest pain, not exertional. No specific aggravating factors noted. BRO NYHA Class II stable with no worsening. No PND or orthopnea. No pedal edema. No exertional palpitations or palpitations at rest. No syncopalattacks. Admitted 09/2019 for chest pain. Noted to [...] and left facial drop. Was sent to [facility]. On 11/2018: Admitted for new onset leg edema, dyspnea on exertion and orthopnea. She was in [facility] a few times for various issues but [...] stroke, CAD and KRISTOPHER not on C-PAP. Records from Dr Gardiner hematology office was reviewed Seen by her 05/2013 and 07/2013 Referred for hypercoagulable work up. 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 Hence no evidence of hypercoagulable work noted Noted to ASCVD as cause of TIA/CVA Previous Cardiac Studies: IMAGING - I personally [...] are no echocardiographic indications of cardiac tamponade. Echo 06/2020 Interpretation Summary A two-dimensional transthoracic echocardiogram with M-mode and Doppler was performed. The study was technically adequate. There is no comparison study available. The left ventricle is hyperdynamic. Diastolic function is normal . Ejection Fraction = >65%. Estimated RA pressure is 0-5 mmHg. Right ventricular systolic pressure is elevated at 35-40 mmHg. ECG 06/2020 Normal sinus rhythm Incomplete right bundle branch block Right ventricular hypertrophy with repolarization abnormality Nonspecific T wave abnormality Prolonged QT Abnormal ECG PAST MEDICAL HISTORY Past Medical History: Diagnosis Date ISADORA (acute kidney injury) 12/23/2018 Antiphospholipid syndrome 12/22/2018 Anxiety CHF (congestive heart failure) seems chronic but unclear if systolic or diastolic Chronic back pain LBP Chronic depressive personality disorder COPD (chronic obstructive pulmonary disease) Coronary artery disease involving yomba shoshone coronary artery of yomba shoshone heart with angina pectoris 06/08/2019 Depression Encephalitis 2015 Essential hypertension, benign Former smoker History of CVA (cerebrovascular accident) left side numbness, L sided facial droop Hyperlipidemia Morbid obesity Posttraumatic stress disorder Right ovarian cyst Seizures 2015 encephalitis Unspecified migraine Past Surgical History: Procedure Laterality Date ANKLE ARTHRODESIS Right 1997 APPENDECTOMY CHOLECYSTECTOMY CORONARY ARTERY BYPASS GRAFT N/A 06/30/2019 Surgeon: Noah Bolton Jr., MD; Location: [facility] FOOT ORIF (SHX) Bilateral HYSTERECTOMY Family [...] Social Needs Financial resource strain: Hard Food insecurity Worry: Sometimes true Inability: Sometimes true Transportation needs Medical: No Non-medical: No Tobacco Use Smoking status: Former Smoker Packs/day: 1.00 Years: 10.00 Pack years: 10.00 Types: Cigarettes Quit date: 2014 Years since quittin.9 Smokeless tobacco: Never Used Substance and Sexual Activity Alcohol use: No Alcohol/week: 0.0 standard drinks Drug use: No Sexual activity: Never Lifestyle Physical activity Days per week: Not on file Minutes per session: Not on file Stress: Not on file Relationships Social connections Talks on phone: Not on file Gets together: Not on file Attends jainism service: Not on file Active member of club or organization: Not on file Attends meetings of clubs or organizations: Not on file Relationship status: Not on file Intimate partner violence Fear of current or ex partner: Not on file Emotionally abused: Not on file Physically abused: Not on file Forced sexual activity: Not on file Other Topics Concern Not on file Social History Narrative Lives in [place] with and Kids ALLERGIES Allergies Allergen Reactions [...] neurologic, psychiatric, endocrinological, and hematological. PHYSICAL EXAMINATION: Vitals: 07/20/20 1329 BP: (!) 133/92 BP Location: Right arm Patient Position: Sitting BP CUFF SIZE: Adult Large Pulse: 87 Resp: 19 SpO2: 99% Weight: 149 lb 3.2 oz (67.7 kg) Height: 5' 3" (1.6 m) General: no apparent distress HEENT: normocephalic atraumatic Neck: supple, no lymphadenopathy, no bruits, no JVD Lungs: clear to auscultation bilaterally. No wheezes or rhonchi. No increased work of breathing. Cardio: Regular rate and rhythm, S1&S2 normal, no murmurs, rubs or gallops Abdomen: soft; non-tender; non-distended; normoactive bowel sounds. : not examined Rectal: not examined Extremities: no clubbing, cyanosis, or edema. Skin: no rashes, no visible lesions. Neuro: no gross focal deficits LABS - Reviewed pertinent labs as below: [...] (H) ASSESSMENT/PLAN 1. Coronary artery disease involving yomba shoshone coronary artery of yomba shoshone heart with angina pectoris CBC WITH DIFF COMP. METABOLIC PANEL (61140) LIPID PANEL (91286)(TOTAL CHOLESTEROL, TRIGLYCERIDES, HDL) N-TERMINAL PRO-BNP CARDIO LOOP MONITOR proMETHazine 25 mg tablet 2. Atypical chest pain CBC WITH DIFF COMP. METABOLIC PANEL (54087) LIPID PANEL (09311)(TOTAL CHOLESTEROL, TRIGLYCERIDES, HDL) N-TERMINAL PRO-BNP CARDIO LOOP MONITOR proMETHazine 25 mg tablet 3. S/P CABG (coronary artery bypass graft) CBC WITH DIFF COMP. METABOLIC PANEL (20146) LIPID PANEL (25294)(TOTAL CHOLESTEROL, TRIGLYCERIDES, HDL) N-TERMINAL PRO-BNP CARDIO LOOP MONITOR proMETHazine 25 mg tablet 4. Essential hypertension CBC WITH DIFF COMP. METABOLIC PANEL (14918) LIPID PANEL (78556)(TOTAL CHOLESTEROL, TRIGLYCERIDES, HDL) N-TERMINAL PRO-BNP CARDIO LOOP MONITOR proMETHazine 25 mg tablet 5. Chronic diastolic heart failure CBC WITH DIFF COMP. METABOLIC PANEL (58205) LIPID PANEL (79258)(TOTAL CHOLESTEROL, TRIGLYCERIDES, HDL) N-TERMINAL PRO-BNP CARDIO LOOP MONITOR proMETHazine 25 mg tablet 6. Dyslipidemia CBC WITH DIFF COMP. METABOLIC PANEL (61000) LIPID PANEL (78781)(TOTAL CHOLESTEROL, TRIGLYCERIDES, HDL) N-TERMINAL PRO-BNP CARDIO LOOP MONITOR proMETHazine 25 mg tablet 7. History of CVA (cerebrovascular accident) CBC WITH DIFF COMP. METABOLIC PANEL (60126) LIPID PANEL (29296)(TOTAL CHOLESTEROL, TRIGLYCERIDES, HDL) N-TERMINAL PRO-BNP CARDIO LOOP MONITOR proMETHazine 25 mg tablet 8. BRO (dyspnea on exertion) CBC WITH DIFF COMP. METABOLIC PANEL (12589) LIPID PANEL (76560)(TOTAL CHOLESTEROL, TRIGLYCERIDES, HDL) N-TERMINAL PRO-BNP CARDIO LOOP MONITOR proMETHazine 25 mg tablet 9. Thrombocytopenia CBC WITH DIFF COMP. METABOLIC PANEL (42785) LIPID PANEL (69243)(TOTAL CHOLESTEROL, TRIGLYCERIDES, HDL) N-TERMINAL PRO-BNP CARDIO LOOP MONITOR proMETHazine 25 mg tablet Her medical records from in which her recent admission [place] was reviewed from 06/2020. The cardiology consult was also reviewed. The supposed to be merged with the current chart. The cardiac medications from the discharge summary was reviewed with her in detail along with her and has been updated. C. difficile colitis: Recommend to follow-up with primary care physician. Elevated troponins in the recent hospital admission 06/2020: No EKG changes/no chest pain noted. Echocardiogram showed preserved LV systolic function. She was also admitted with C. difficile colitis. Attributed to type II IA. CAD s/p CABG 06/2019: Per patient she had stent placement done [facility] 05/2020 secondary to IA NM Stress test 09/2019: negative. Echo 06/2020: Preserved EF. On Lopresor 50 mg BiD/lipitor 80 mg daily/SL nitro PRN Since Eliquis is being discontinued, recommend restarting aspirin 81 daily and continued Plavix 75 gdaily We will get records from [facility] regarding the admission in May 2020. Form signed. Recommended to DC colchicine completely. Small Possible hemorraghic pericardial effusion by CT in pericardial effusion: Echo recently done 06/2020 was reviewed No pericardial fusion noted. DVT LUE 10/15/2019: Resolved by vascular study done on 06/2020: Recommend to CASSIDY Savita No clear-cut evidence of A. fib noted so far. We also reviewed Dr Gardiner (homeopathic doctor) notes from 05/2013. Hypercoagulable work-up has been negative. Reason for the stroke was attributed secondary to atherosclerotic vascular disease Thrombocytopenia < 100K: We will plan for repeat CBC in August 2019. If still persistent when we may have to refer back to hematology. Chronic HFpEF: Multifactorial: CAD/hypertension/KRISTOPHER and maybe hypoventilation syndrome. Lasix 40/KCL 20 PRN or Q2days PRN based on weight. Fluid restriction/salt restriction recommended. Daily weights. HTN: Stable on lopressor 50 mg BiD. Home BP log recommended. Cross check his BP machine. Appropriate ways to check home BP discussed. Goals BP < 130/80 stressed. Explained if BP > 130/80, adviced to send us the log. Lifestyle modifications stressed. Dyslipidemia: on lipitor 80 mg daily. Labs in August 2019 H/o stroke: Follow [facility]. Continue ASA/Plavix/lipitor. We will plan for event monitor to rule out underlying atrial fibrillation. Palpitations: She reports pounding-like sensation but heart rate by monitor is normal. We will plan for event monitor to rule out underlying atrial fibrillation. Follow up in 6 weeks. Labs ordered Aug 2020. Refill for Phenergan was given as a one-time refill since she reports she needs to establish care with a new primary care physician. 30 doses given with no refills. Recommended to establish Care witha primary care physician by the time to get subsequent refills. Orders Placed This Encounter Procedures CBC WITH DIFF COMP. METABOLIC PANEL (32634) LIPID PANEL (44586)(TOTAL CHOLESTEROL, TRIGLYCERIDES, HDL) N-TERMINAL PRO-BNP Requested Prescriptions Signed Prescriptions Disp Refills proMETHazine 25 mg tablet 30 tablet 0 Sig: Take 1 tablet by mouth every 8 (eight) hours as needed for Nausea and Vomiting (N/V) for up to 30 doses. Patient's diease process and its evaluation and [...] in the answers given. We reviewed the [place] [employer] recommendations for reduction of overall [...] feel free to call our office at [phone]. I would be happy to be of further assistance for Delilah Whyte wellbeing. Rafy Escobar MD Rn Telephone Triage, Division of Cardiology [facility] Transitional Care Management: [id number] Visit 07/20/2020 Delilah Whyte is a 54 year old female that was admitted on 12/24/19 to [facility] AT [address] She was discharged on 12/25/19 with a discharge disposition of HR- Routine Discharge. Delilah is here today for a hospital follow-up/transitional care management visit. CC: Follow-up (7mo) HPI Allergies Delilah is allergic to compazine [prochlorperazine edisylate]; depakote [divalproex sodium]; neurontin[gabapentin]; nsaids (non-steroidal anti- inflammatory drug); stadol [butorphanol tartrate]; and toradol [ketorolac tromethamine]. Medications Outpatient Medications Prior to Visit Medication Sig Dispense Refill aspirin 81 mg EC tablet Take 81 mg by mouth daily. clopidogreL (PLAVIX) 75 mg tablet Take 75 mg by mouth daily. nitroglycerin 0.[address] 0.4 mg under the tongue every 5 (five) minutes as needed for Chest pain. KLOR-CON M20 20 mEq tablet TAKE ONE TABLET BY MOUTH DAILY WITH LASIX NEEDED 30 tablet 1 FUROSEMIDE 40 mg tablet TAKE ONE TABLET BY MOUTH ONCE DAILY NEEDED FOR LEG SWELLING AND BODY WEIGHT 30 tablet 11 METOPROLOL TARTRATE 50 mg tablet TAKE ONE TABLET BY MOUTH TWICE A DAY 60 tablet 11 atorvastatin 80 mg tablet Take 1 tablet by mouth at bedtime. 30 tablet 3 proMETHazine 25 mg tablet Take 25 mg by mouth every 8 (eight) hours as needed. hydrOXYzine 50 mg tablet Take 50 mg by mouth 3 (three) times daily. apixaban 5 mg tablet Take 1 tablet by mouth 2 (two) times daily. Indications: deep vein thrombosis prevention 60 tablet 1 colchicine 0.6 mg Cap Take 1 capsule by mouth 2 (two) times daily. 60 capsule 0 topiramate 50 mg tablet Take 50 mg by mouth 2 (two) times daily. zolpidem (AMBIEN) 10 mg tablet Take 10 mg by mouth at bedtime as needed for Insomnia. promethazine HCl (PHENERGAN ORAL) Take 25 mg by mouth as needed for Nausea and Vomiting (N/V). buPROPion SR 100 mg SR tablet Take 1 tablet by mouth 2 (two) times daily. 60 tablet 0 LORazepam 2 mg tablet Take 1 tablet by mouth 2 (two) times daily. 0 SERTraline 100 mg tablet Take 1 tablet by mouth daily. 0 No facility-administered medications prior to visit. Histories Past Medical History: Diagnosis Date ISADORA (acute kidney injury) 12/23/2018 Antiphospholipid syndrome 12/22/2018 Anxiety CHF (congestive heart failure) seems chronic but unclear if systolic or diastolic Chronic back pain LBP Chronic depressive personality disorder COPD (chronic obstructive pulmonary disease) Coronary artery disease involving yomba shoshone coronary artery of yomba shoshone heart with angina pectoris 06/08/2019 Depression Encephalitis 2014 Essential hypertension, benign Former smoker History of CVA (cerebrovascular accident) left side numbness, L sided facial droop Hyperlipidemia Morbid obesity Posttraumatic stress disorder Right ovarian cyst Seizures 2015 encephalitis Unspecified migraine Past Surgical History: Procedure Laterality Date ANKLE ARTHRODESIS Right 1997 APPENDECTOMY CHOLECYSTECTOMY CORONARY ARTERY BYPASS GRAFT N/A 06/30/2019 Surgeon: Noah Bolton Jr., MD; Location: [facility] FOOT ORIF (SHX) Bilateral HYSTERECTOMY Social History Socioeconomic History Marital status: Spouse name: Not on file Number of children: Not on file Years of education: Not on file Highest education level: GED or equivalent Occupational History Not on file Social Needs Financial resource strain: Hard Food insecurity Worry: Sometimes true Inability: Sometimes true Transportation needs Medical: No Non-medical: No Tobacco Use Smoking status: Former Smoker Packs/day: 1.00 Years: 10.00 Pack years: 10.00 Types: Cigarettes Quit date: 2014 Years since quittin.9 Smokeless tobacco: Never Used Substance and Sexual Activity Alcohol use: No Alcohol/week: 0.0 standard drinks Drug use: No Sexual activity: Never Lifestyle Physical activity Days per week: Not on file Minutes per session: Not on file Stress: Not on file Relationships Social connections Talks on phone: Not on file Gets together: Not on file Attends jainism service: Not on file Active member of club or organization: Not on file Attends meetings of clubs or organizations: Not on file Relationship status: Not on file Intimate partner violence Fear of current or ex partner: Not on file Emotionally abused: Not on file Physically abused: Not on file Forced sexual activity: Not on file Other Topics Concern Not on file Social History Narrative Lives in [place] with and Kids Family History Problem Relation Age of Onset Diabetes Mother Hypertension Mother Diabetes Father Hypertension Father Stroke Father Hypertension Brother Review of Systems Physical Exam Vitals: 07/20/20 1329 BP: (!) 133/92 BP Location: Right arm Patient Position: Sitting BP CUFF SIZE: Adult Large Pulse: 87 Resp: 19 SpO2: 99% Weight: 149 lb 3.2 oz (67.7 kg) Height: 5' 3" (1.6 m) Assessment/Plan As above I certify that the following are true: Discharge records, pending tests and lab results reviewed: Yes Medications reviewed and reconciled: Yes Patient education provided to: patient and partner Follow-up arranged with other healthcare providers needed in patient's care: Yes Established applicable referrals: No Complexity of medical decision making is: High No linked episodes documented in this encounter Plan of Treatment Date Type Specialty Care Team Description 07/25/2020 Appointment Ji Zhang MD [address] [place] [address]. [place] [address] YovanySam Clarence 08/21/2020 Nurse Visit Cardiology Visit, Alex Nurse 09/21/2020 Office Visit Cardiology Ludwig Escobar MD [address] [place] [address] [phone] Name Type Priority Associated Diagnoses Order S chedule CBC WITH DIFF LAB Routine Coronary artery 1 Occurrenc es disease involving starting 09/20/2019 yomba shoshone coronary until 2020 artery of yomba shoshone heart without angina pectoris Atypical chest p ain S/P CABG (coronary artery bypass gr aft) Essential hypertension Chronic diastolic heart failure Dyslipidemia History of CVA (cerebrovascular accident) BRO (dyspnea on exertion) Thrombocytopenia COMP. METABOLIC LAB Routine Coronary artery 1 Occurre nces PANEL (40466) disease involving starting 07/20/2020 yomba shoshone coronary until 2020 artery of yomba shoshone heart without angina pectoris Atypical chest p ain S/P CABG (coronary artery bypass gr aft) Essential hypertension Chronic diastolic heart failure Dyslipidemia History of CVA (cerebrovascular accident) BRO (dyspnea on exertion) Thrombocytopenia LIPID PANEL LAB Routine Coronary artery 1 Occurrence s (94209)(TOTAL disease involving starting 07/20/2020 CHOLESTEROL, [place] coronary until 2020 TRIGLYCERIDES, HDL) artery of [place] heart without angina pectoris Atypical chest p ain S/P CABG (coronary artery bypass gr aft) Essential hypertension Chronic diastolic heart failure Dyslipidemia History of CVA (cerebrovascular accident) BRO (dyspnea on exertion) Thrombocytopenia N-TERMINAL PRO-BNP LAB Routine Coronary artery 1 Occu rrences disease involving starting 1 09/20/2019 [place] coronary until 2020 artery of [place] heart without angina pectoris Atypical chest p ain S/P CABG (coronary artery bypass gr aft) Essential hypertension Chronic diastolic heart failure Dyslipidemia History of CVA (cerebrovascular accident) BRO (dyspnea on exertion) Thrombocytopenia CARDIO LOOP MONITOR HEART STATION Routine Coronary artery 1 Oc currences disease involving starting 09/20/2019 [place] coronary until 2020 artery of [place] heart without angina pectoris Atypical chest p ain S/P CABG (coronary artery bypass gr aft) Essential hypertension Chronic diastolic heart failure Dyslipidemia History of CVA (cerebrovascular accident) BRO (dyspnea on exertion) Thrombocytopenia Health Maintenance Due Date Last Done Comments [...] VACCINE (#1) 2020 10/18/2019, 12/10/2018 Depression Screening 06/27/2021 06/27/2020 PNEUMOCOCCAL 0-64 YEARS COMBINED SERIES Completed 12/11/19 HEPATITIS C (HCV) SCREEN Completed 10/11/2019 documented as of this encounter Implants Implanted Type Area Interpreter Deaf Device Shelf Expiration Model / Identifier Date Serial / Lot Screw SCREW Right: Ankle Screw SCREW Left: Foot documented as of this encounter Results Not on filedocumented in this encounter Visit Diagnoses Diagnosis Coronary artery disease involving [place] coronary artery of [place] heart without angina pectoris - Primary Atypical chest pain Other chest pain S/P CABG (coronary artery bypass graft) Postsurgical aortocoronary bypass status Essential hypertension Unspecified essential hypertension Chronic diastolic heart failure Dyslipidemia Other and unspecified hyperlipidemia History of CVA (cerebrovascular accident ) Transient ischemic attack (TIA), and cer ebral infarction without residual deficits BRO (dyspnea on exertion) Other dyspnea and respiratory abnormalit y Thrombocytopenia Thrombocytopenia, unspecified documented in this encounter Insurance Payer Benefit Plan / Subscriber ID Effective Phone Address T ype Group Dates KARMA PARADA [id number] 2015-Benjy [address] Medic [facility] [place] [facility] [place] [address] MANAGED MEDICAID [place], [place] (Work) documented as of this encounter Advance Directives Name Relationship Healthcare Agent Communication Relationship Swapnil Whyte Spouse Health Care Agent
--- OUTSIDE RECORDS SUMMARY | 2020-09-13 10:43 | XMS REPORT | Summary of Care ---
:1965 Author Organization [address] [address] Care Team Providers Name Role Phone James Burton Primary Care Provider Reason for Referral (Routine) Status Reason Specialty Diagnoses / Referred By Contact Refe rred To Procedures Contact New Request EEG Diagnoses Memory loss Cerebrovascular disease Ji Swartz Eeg/Ep-Jsa Procedures Electroencephalogram (EEG) - Duration of test: 20-60 mins MD [place] [address] [phone] Phone: Phone: Fax: Reason for Visit Reason Comments New Evaluation per patient previous stroke (Routine) Status Reason Specialty Diagnoses / Procedures Referred By Silvia oconnelled To Contact Contact Closed Neurology Diagnoses History of cerebrovascular accident with current residual effects Left hemiparesis James Burton Procedures CONSULT NEUROLOGY [address] [facility] [address] [place] [address] Encounter Details Date Type Department Care Team Description 06/27/2020 Office Visit [facility] Ji Swartz Cerebrovascu lar disease (Primary Dx); Neurology-Jairo Arnold MD Essential hypertension; [address] [place] [address]; [facility], [address] [facility] [phone] Allergies Active Allergy Reactions Severity Noted Date Comments Prochlorperazine Edisylate Nausea and/or 08/21/2005 Vomiting Divalproex Sodium Anxiety 08/21/2005 Gabapentin Unknown - See 01/02/2008 Blurred vision comments Nsaids (Non-Steroidal Nausea and/or 06/15/2015 Anti-Inflammatory Drug) Vomiting Butorphanol Tartrate Rash 08/21/2005 Ketorolac Tromethamine Rash 08/21/2005 documented as of this encounter (statuses as of 07/12/2020) Medications Medication Sig Dispensed Refills Start Date End Date Status atorvastatin 80 mg Take 1 tablet by 30 tablet 3 09/03/2019 Active tabletIndications: mouth at S/P CABG (coronary bedtime. artery bypass graft), Coronary artery disease involving [place] coronary artery of [place] heart with angina pectoris LORazepam 2 mg [...] mouth 2 (two) Pericardial times daily. effusion apixaban 5 mg Take 1 tablet by 60 tablet 1 11/12/2019 Active tabletIndications: mouth 2 (two) deep vein times daily. thrombosis Indications: prevention deep vein thrombosis prevention FUROSEMIDE 40 mg TAKE ONE TABLET 30 tablet 11 06/01/2020 Active tabletIndications: BY MOUTH ONCE Coronary artery DAILY NEEDED disease involving FOR LEG SWELLING [place] coronary AND BODY WEIGHT artery of [place] heart with angina pectoris, NSTEMI (non-ST elevated myocardial infarction) METOPROLOL TAKE ONE TABLET 60 tablet 11 06/01/2020 Ac tive TARTRATE 50 mg BY MOUTH TWICE A tabletIndications: DAY NSTEMI (non-ST elevated myocardial infarction), Bacteremia due to Enterobacter species hydrOXYzine 50 mg Take 50 mg by 0 Active tablet mouth 3 (three) times daily. KCL 20 mEq Take 1 tablet by 30 tablet 2 11/07/2019 D iscontinued tabletIndications: mouth as needed 0 Coronary artery (Recommend to disease involving take KCL if [place] coronary taking lasix.) artery of [place] for up to 30 heart with angina doses. pectoris, NSTEMI (non-ST elevated myocardial infarction) documented as of this encounter (statuses as of 07/12/2020) Active Problems Problem Noted Date Weakness 12/25/2019 Pericardial effusion 10/25/2019 Arm DVT (deep venous thromboembolism), acute, left 04/2020 Chest pain 10/24/2019 NSTEMI (non-ST elevated myocardial infarction) 020 Left sided numbness 09/03/2019 S/P CABG (coronary artery bypass graft) 06/30/2019 Leukocytosis 06/16/2019 Tachycardia 06/15/2019 Coronary artery disease involving [place] coronary herson ry of [place] heart 06/08/2019 with angina pectoris Overview: Added automatically from request for ilan dorothy [id number] Sepsis 05/03/2019 Obesity (BMI 30-39.9) 05/03/2019 Other [...] as of this encounter (statuses as of 07/12/2020) Immunizations Name Administration Dates Next Due Influenza [...] been in contact with No / Unsure 06/27/2020 1:48 PM CHILDCARE AIDE someone who was confirmed or suspected to have Coronavirus / COVID-19? documented as of this encounter Last Filed Vital Signs Vital Sign Reading Time Taken Comments Blood Pressure 118/68 06/27/2020 2:03 PM CHILDCARE AIDE Pulse 67 06/27/2020 2:03 PM CHILDCARE AIDE Temperature - - Respiratory Rate - - Oxygen Saturation 100% 06/27/2020 2:03 PM CHILDCARE AIDE Inhaled Oxygen Concentration - - Weight 68.5 kg (151 lb) 06/27/2020 2:03 PM CHILDCARE AIDE Height 160 cm (5' 3") 06/27/2020 2:03 PM CHILDCARE AIDE Body Mass Index 26.75 06/27/2020 2:03 PM CHILDCARE AIDE documented in this encounter Progress Notes Ji Swartz MD - 06/27/2020 1:40 PM CST I have verified the medical student documentation and/or findings, including the history, physical exam, and medical decision making for the patient Delilah Whyte on 06/27/2020. Additionally, I have personally performed or re-performed the physical and neurological exam and medical decision making activities of this patient's evaluation and management service. The patient believes that she might be having more cerebrovascular disease but I did point out that we had studies done at two different time intervals and they did not show any particular changes. This discussion had taken out 22 minutes of the 40 minute office visit. Ji Swartz MD Appliance Service Representative Neurology NEUROLOGY CLINIC NOTE DATE OF SERVICE: 06/27/2020 15:39 REQUESTING PHYSICIAN: James Burton Reason for Consult: We were asked to see this patient to give my opinion regarding Delilah Whyte, 54year old, female who presents with increasing memory difficulties and worsening ataxia. HISTORY OF PRESENT ILLNESS Delilah Whyte is a 54 year old, right handed, female with PMH of R temporal lobe stroke with residual ataxia and memory loss, HSV encephalitis, migraines, CAD with CABG 2018, and PTSD who presented to clinic because of worsening memory and ataxia. The patient described having fluctuating memory function for the past several months. She said that she has difficulty remembering words in conversations, forgetting what she is doing during activities, and also just a general sense of confusion and cognitive impairment. The patient was seen at [facility] in December of this year for worsening stroke symptoms (gait, memory, and L sided numbness), but MRI and CTA were negative for any acute infarct or intracranial hemorrhage. The patient was seen again at [facility] in May for a similar episode and CT was negative for any acute infarct or intracranial hemorrhage. The patient alsonoted that she has been having trouble with her balance and that she is walking "like a drunk person". She stated that this has been a recent development, but her partner who accompanied her to the visit stated she has had difficulty with balance and walking since her stroke in 2011. The patient also noted having episodes of dizziness once a day, but believed these were related to her cardiac diagnoses. PAST MEDICAL HISTORY Past Medical History: Diagnosis Date ISADORA (acute kidney injury) 12/23/2018 Antiphospholipid syndrome 12/22/2018 Anxiety CHF (congestive heart failure) seems chronic but unclear if systolic or diastolic Chronic back pain LBP Chronic depressive personality disorder COPD (chronic obstructive pulmonary disease) Coronary artery disease involving [place] coronary artery of [place] heart with angina pectoris 06/08/2019 Depression Encephalitis 2014 Essential hypertension, benign Former smoker History of CVA (cerebrovascular accident) left side numbness, L sided facial droop Hyperlipidemia Morbid obesity Posttraumatic stress disorder Right ovarian cyst Seizures 2015 encephalitis Unspecified migraine PAST SURGICAL HISTORY Past Surgical History: Procedure Laterality Date ANKLE ARTHRODESIS Right 1997 APPENDECTOMY CHOLECYSTECTOMY CORONARY ARTERY BYPASS GRAFT N/A 06/30/2019 Surgeon: Noah Bolton Jr., MD; Location: [facility] FOOT ORIF (SHX) Bilateral HYSTERECTOMY FAMILY HISTORY Family History Problem Relation Age of Onset [...] Types: Cigarettes Quit date: 2014 Years since quittin.8 Smokeless tobacco: Never Used Substance and Sexual Activity Alcohol use: No Alcohol/week: 0.0 standard drinks Drug use: No Sexual activity: Never Lifestyle Physical activity Days per week: Not on file Minutes per session: Not on file Stress: Not on file Relationships Social connections Talks on phone: Not on file Gets together: Not on file Attends sikh service: Not on file Active member of [...] on file Social History Narrative [place] and Kids Reviewed patient's family, surgical and social hx. HOME MEDICATIONS (Not in a hospital admission) HOSPITAL MEDICATIONS Current Outpatient Medications Medication Sig Dispense Refill hydrOXYzine 50 mg tablet Take 50 mg by mouth 3 (three) times daily. FUROSEMIDE 40 mg tablet TAKE ONE TABLET BY MOUTH ONCE DAILY NEEDED FOR LEG SWELLING AND BODY WEIGHT 30 tablet 11 METOPROLOL TARTRATE 50 mg tablet TAKE ONE TABLET BY MOUTH TWICE A DAY 60 tablet 11 apixaban 5 mg tablet Take 1 tablet by mouth 2 (two) times daily. Indications: deep vein thrombosis prevention 60 tablet 1 colchicine 0.6 mg Cap Take 1 capsule by mouth 2 (two) times daily. 60 capsule 0 KCL 20 mEq tablet Take 1 tablet by mouth as needed (Recommend to take KCL if taking lasix.) for up to 30 doses. 30 tablet 2 topiramate 50 mg tablet Take 50 mg by mouth 2 (two) times daily. promethazine HCl (PHENERGAN ORAL) Take 25 mg by mouth as needed for Nausea and Vomiting (N/V). zolpidem (AMBIEN) 10 mg tablet Take 10 mg by mouth at bedtime as needed for Insomnia. buPROPion SR 100 mg SR tablet Take 1 tablet by mouth 2 (two) times daily. 60 tablet 0 LORazepam 2 mg tablet Take 1 tablet by mouth 2 (two) times daily. 0 SERTraline 100 mg tablet Take 1 tablet by mouth daily. 0 atorvastatin 80 mg tablet Take 1 tablet by mouth at bedtime. 30 tablet 3 No current facility-administered medications for this visit. ALLERGY Allergies Allergen Reactions Compazine [Prochlorperazine Edisylate] Nausea and/or Vomiting Depakote [Divalproex Sodium] Anxiety Neurontin [Gabapentin] Unknown - See comments Blurred vision Nsaids (Non-Steroidal Anti-Inflammatory Drug) Nausea and/or Vomiting Stadol [Butorphanol Tartrate] Rash Toradol [Ketorolac Tromethamine] Rash REVIEW OF SYSTEMS General: (-) fever, (-) chills, (+) weight change, (+) dizziness, (+) fatigue, (+) change in appetite Skin: (-) rash, (-) lesion HEENT: (+) headache, (+) change in hearing, (+) change in vision, (-) nasal discharge, (-) sore throat Neck: (-) pain, (-) difficulty swallowing, (-) mass Heme: (-) bleeding disorder Resp: (-) cough, (+) shortness of breath, (+) dyspnea on exertion Cardio: (+) chest pain, (-) palpitations, (-) syncope GI: (-) abdominal pain, (+) nausea, (-) vomiting, (-) diarrhea, (-) constipation, (-) melena, (-) hematochezia, (-) hematemesis : (+) dysuria, (+) increased frequency, (-) difficulty urinating, (-) difficulty initiating Endo: (-) heat intolerance, (-) diabetes, (-) cold intolerance, (-) polyuria, (- ) polydipsia, (-) renal insufficiency, (-) thyroid disease Neuro: See HPI Back: (-) pain, (-)spasms LEN: (-) muscle pain, (-) joint pain, (-) claudication Psych: (-) anxiety, (-) depression, (-) psychiatric disorder Patient responded positively to most ROS symptoms asked. PHYSICAL EXAM Vitals: 06/27/20 1403 BP: 118/68 BP Location: Right arm Patient Position: Sitting BP CUFF SIZE: Adult Medium Pulse: 67 SpO2: 100% Weight: 151 lb (68.5 kg) Height: 5' 3" (1.6 m) General: Alert and oriented x 4 (time, person, place and situation); no apparent distress. Mental Status: Consciousness, attention, concentration: mildly impaired, Stays focused and on task while being questioned. Speech/ Language: intact to comprehension, fluency, repetition and naming. Fund of knowledge: is congruent with level of education. Remote and recent memory: minimally impaired, has trouble with more recent memories, but can recall distant memories Mosier Cognitive Assessment Score: 23/30 Cranial Nerves: I. Not tested. II. PERRL. FOV full to confrontation. III. IV., . Extraocular movements intact without nystagmus. V. Normal sensation in V1-3 distributions. Minor paresthesia on L side. VII. No facial droop noted. VIII. Hearing intact. IX., X. Palatal elevation present symmetrically. XI. Normal Strength of sternocleidomastoid and trapezius muscles bilaterally. XII. Tongue in midline. Motor: Tone: normal Bulk: normal STRENGTH Right Left Deltoid 5 4+ Biceps 5 4+ Triceps 5 4+ Wrist extensors 5 4+ Interossei 5 4+ Hip flexors 5 4+ Knee flexors (hamstring) 5 4+ Knee extensors (quadriceps) 5 4+ Ankle dorsiflexors 5 4+ Ankle plantar flexors 5 4+ DTR's: Right Left Bicep 2+ 2+ Triceps 2+ 2+ Brachioradialis 2+ 2+ Patella 2+ 2+ Achilles 2+ 2+ Pathologic reflexes and signs: Palmar grasp: present on L side Babinski: present on L side Cerebellar: Nystagmus: neg, FTN: mildly impaired on L side, HTS:nl, Tremors: neg, Sensory: LT: intact, but diminished on L side Gait: Antalgic gait HEENT: pupils equal, round, reactive to light; extraocular movements intact; oropharynx clear; moistmucous membranes Lungs: clear to auscultation bilaterally Cardio: S1, S2 normal Extremities:no cyanosis,clubbing or edema Neck:supple,no carotid bruit,no JVD Abdomen: soft; non-tender; non-distended; normoactive bowel sounds heard LABS No results found for this or any previous visit (from the past 24 hour(s)). RADIOLOGY No final results containing an impression from the past 48 hours were found. ASSESSMENT AND RECOMMENDATIONS Delliah Whyte is a 54 year old, right handed, female with PMH of R temporal lobe stroke (with residual L sided paresthesia, ataxia, and memory loss), migraines, HSV encephalitis, CAD with [id number], and PTSD who presented to clinic because of worsening memory and ataxia. Our impression is: Cerebrovascular disease/ Memory Impairment (primary encounter diagnosis) Comment: episodic worsening of residual stroke symptoms, EEG to rule out possible epileptic cause Plan: Electroencephalogram (EEG) - Duration of test: 20-60 min Essential hypertension Comment: BP well controlled at visit Plan: -C/w metoprolol -C/w furosemide -Follow up with primary care for medication management w/ possible referral to cardiology Other depression Comment: Patient on two antidepressant medications which could be affecting cognitive function Plan: -Follow up with primary care for medication management w/possible referral to psychiatry especially relating to the question of whether she should be taking two different antidepressant medications. Additionally the benzodiazepines utilizes also is not likely helping her overall cognition. Discussed with primary team, Neurology will: follow up with the patient after her EEG. Case was discussed and seen with Dr. Swartz, neurology faculty. Kevin Chowdary, MS3 Neurology Consult [place]: [phone] [phone] DCARE AIDE documented in this encounter Plan of Treatment Date Type Specialty Care Team Description 07/25/2020 Appointment EEG Ji Swartz MD [address] [place], [place] [address] [address] Tech, Js Eeg Health Maintenance Due Date Last Done Comments [...] of this encounter Implants Implanted Type Area Retirement Plan Counselor Device Shelf Expiration Model / Identifier Date Serial / Lot Screw SCREW Right: Ankle Screw SCREW Left: Foot documented as of this encounter Results Not on filedocumented in this encounter Visit Diagnoses Diagnosis Cerebrovascular disease - Primary Cerebrovascular disease, unspecified Essential hypertension Unspecified essential hypertension Other depression Memory loss documented in this encounter Insurance Payer Benefit Plan / Subscriber ID Effective Phone Address T ype Group Dates KARMA PARADA [id number] 2015-[address] Medic [facility] [place] [address] [place] MEDICA[place], [place] (Work) documented as of this encounter Advance Directives Name Relationship Healthcare Agent Communication Relationship Swapnil Whyte Spouse Health Care Agent
--- OUTSIDE RECORDS SUMMARY | 2020-09-13 10:43 | XMS REPORT | Summary of Care ---
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 Atypical chest pain S/P CABG (coronary artery bypass graft) Essential hypertension Chronic diastolic heart failure Dyslipidemia Escobar, Sendil History of CVA ( cerebrovascular accident) BRO (dyspnea on exertion) Jimmie Cannon MD Procedures CARDIO LOOP MONITOR [address] [place] [address] Reason for Visit Reason Comments Follow-up 7mo Encounter Details Date Type Department Care Team Description 07/20/2020 Office Visit [facility] Escobar, Sendil Coronary herson ry disease involving houlton coronary artery of houlton heart without angina pectoris (Primary Dx); Cardiology- Jairo Cannon MD Atypical chest pain; [address] S/P CABG (coronary artery bypass graft); Drive, [address] Essential hypertension; [place], [place] Chronic diastol ic heart failure; [id number] Dyslipidemia; [phone] History of CVA (cerebrovascular accident ); [phone] BRO (dyspnea on exertion); (Fax) Thrombocytopeni a [...] artery bypass graft), Coronary artery disease involving houlton coronary artery of houlton heart with angina pectoris LORazepam 2 mg [...] artery DAILY NEEDED disease involving FOR LEG houlton coronary SWELLING AND artery of houlton BODY WEIGHT heart with angina pectoris, NSTEMI [...] Coronary artery WITH LASIX disease involving NEEDED houlton coronary artery of houlton heart with angina pectoris, NSTEMI (non-ST elevated [...] (eight) hours disease involving as needed for houlton coronary Nausea and artery of houlton Vomiting (N/V) heart without angina for up [...] 06/16/2019 Tachycardia 06/15/2019 Coronary artery disease involving houlton coronary herson ry of houlton heart 06/08/2019 with angina pectoris Overview: Added automatically from request for ilan de la cruz [id number] Sepsis 05/03/2019 Obesity (BMI 30-39.9) 05/03/2019 Other [...] with No / Unsure 07/20/2020 1:14 PM PUMP HOUSE ENGINEER someone who was confirmed or suspected to have Coronavirus / COVID-19? documented as of this encounter Last Filed Vital Signs Vital Sign Reading Time Taken Comments Blood Pressure 133/92 07/20/2020 1:29 PM PUMP HOUSE ENGINEER Pulse 87 07/20/2020 1:29 PM PUMP HOUSE ENGINEER Temperature - - Respiratory Rate 19 07/20/2020 1:29 PM PUMP HOUSE ENGINEER Oxygen Saturation 99% 07/20/2020 1:29 PM PUMP HOUSE ENGINEER Inhaled Oxygen Concentration - - Weight 67.7 kg (149 lb 3.2 oz) 07/20/2020 1:29 PM PUMP HOUSE ENGINEER Height 160 cm (5' 3") 07/20/2020 1:29 PM PUMP HOUSE ENGINEER Body Mass Index 26.43 07/20/2020 1:29 PM PUMP HOUSE ENGINEER documented in this encounter Progress Notes Ludwig Escboar MD - 07/20/2020 10:00 AM CST [facility] Cardiology Consult Note Patient: Delilah Whyte Date [...] She reports getting admitted in 05/2020 with OK in [facility].Underwent coronary angiogram and also reports having a stent placement. No details available. Formsigned to get the discharge summary/angiogram report/echo 06/2020 she was admitted in [place] again for abdominal pain diarrhea noted to have C. difficile colitis. During the time also she was noted to have mild elevated troponins at 0.6. No EKG changes and echocardiogram was preserved. Attributed to type II OK. Cardiology was consulted during that admission. She [...] and left facial drop. Was sent to [facility]. On 11/2018: Admitted for new onset leg edema, dyspnea on exertion and orthopnea. She was in [facility] a few times for various issues [...] obstructive pulmonary disease) Coronary artery disease involving houlton coronary artery of houlton heart with angina pectoris 06/08/2019 Depression Encephalitis 2015 Essential hypertension, benign Former smoker History of CVA (cerebrovascular accident) left side numbness, L sided facial droop Hyperlipidemia Morbid obesity Posttraumatic stress disorder Right ovarian cyst Seizures 2015 encephalitis Unspecified migraine Past Surgical History: Procedure Laterality Date ANKLE ARTHRODESIS Right 1997 APPENDECTOMY CHOLECYSTECTOMY CORONARY ARTERY BYPASS GRAFT N/A 06/30/2019 Surgeon: Noah Bolton Jr., MD; Location: [facility] FOOT ORIF (SHX) Bilateral HYSTERECTOMY [...] file Gets together: Not on file Attends pentecostalism service: Not on file Active member of [...] on file Social History Narrative Lives in [place] with and Kids ALLERGIES Allergies Allergen Reactions [...] (H) ASSESSMENT/PLAN 1. Coronary artery disease involving houlton coronary artery of houlton heart with angina pectoris CBC WITH DIFF COMP. METABOLIC PANEL (24056) LIPID PANEL (38052)(TOTAL CHOLESTEROL, TRIGLYCERIDES, HDL) N-TERMINAL PRO-BNP CARDIO LOOP MONITOR proMETHazine 25 mg tablet 2. Atypical chest pain CBC WITH DIFF COMP. METABOLIC PANEL (12123) LIPID PANEL (80451)(TOTAL CHOLESTEROL, TRIGLYCERIDES, HDL) N-TERMINAL PRO-BNP CARDIO LOOP MONITOR proMETHazine 25 mg tablet 3. S/P CABG (coronary artery bypass graft) CBC WITH DIFF COMP. METABOLIC PANEL (21987) LIPID PANEL (16308)(TOTAL CHOLESTEROL, TRIGLYCERIDES, HDL) N-TERMINAL PRO-BNP CARDIO LOOP MONITOR proMETHazine 25 mg tablet 4. Essential hypertension CBC WITH DIFF COMP. METABOLIC PANEL (51399) LIPID PANEL (26425)(TOTAL CHOLESTEROL, TRIGLYCERIDES, HDL) N-TERMINAL PRO-BNP CARDIO LOOP MONITOR proMETHazine 25 mg tablet 5. Chronic diastolic heart failure CBC WITH DIFF COMP. METABOLIC PANEL (04953) LIPID PANEL (33309)(TOTAL CHOLESTEROL, TRIGLYCERIDES, HDL) N-TERMINAL PRO-BNP CARDIO LOOP MONITOR proMETHazine 25 mg tablet 6. Dyslipidemia CBC WITH DIFF COMP. METABOLIC PANEL (71216) LIPID PANEL (63743)(TOTAL CHOLESTEROL, TRIGLYCERIDES, HDL) N-TERMINAL PRO-BNP CARDIO LOOP MONITOR proMETHazine 25 mg tablet 7. History of CVA (cerebrovascular accident) CBC WITH DIFF COMP. METABOLIC PANEL (27731) LIPID PANEL (64620)(TOTAL CHOLESTEROL, TRIGLYCERIDES, HDL) N-TERMINAL PRO-BNP CARDIO LOOP MONITOR proMETHazine 25 mg tablet 8. BRO (dyspnea on exertion) CBC WITH DIFF COMP. METABOLIC PANEL (01802) LIPID PANEL (47040)(TOTAL CHOLESTEROL, TRIGLYCERIDES, HDL) N-TERMINAL PRO-BNP CARDIO LOOP MONITOR proMETHazine 25 mg tablet 9. Thrombocytopenia CBC WITH DIFF COMP. METABOLIC PANEL (96570) LIPID PANEL (19977)(TOTAL CHOLESTEROL, TRIGLYCERIDES, HDL) N-TERMINAL PRO-BNP CARDIO LOOP MONITOR proMETHazine 25 mg tablet Her medical records from in which her recent admission [place] was reviewed from 06/2020. The cardiology consult [...] C. difficile colitis. Attributed to type II OK. CAD s/p CABG 06/2019: Per patient she had stent placement done [facility] 05/2020 secondary to OK NM Stress test 09/2019: negative. Echo 06/2020: Preserved EF. On Lopresor 50 mg BiD/lipitor 80 mg daily/SL nitro PRN Since Eliquis is being discontinued, recommend restarting aspirin 81 daily and continued Plavix 75 gdaily We will get records from [facility] regarding the admission in May 2020. Form signed. Recommended to DC colchicine completely. Small Possible hemorraghic pericardial effusion by CT in pericardial effusion: Echo recently done 06/2020 was reviewed No pericardial fusion noted. DVT LUE 10/15/2019: Resolved by vascular study done on 06/2020: Recommend to CASSIDY Savita No clear-cut evidence of A. fib noted so far. We also reviewed Dr Gardiner (service observer) notes from 05/2013. Hypercoagulable work-up has been [...] August 2019 H/o stroke: Follow up with [facility] neurology. Continue ASA/Plavix/lipitor. We will plan for [...] Procedures CBC WITH DIFF COMP. METABOLIC PANEL (19774) LIPID PANEL (42323)(TOTAL CHOLESTEROL, TRIGLYCERIDES, HDL) N-TERMINAL PRO-BNP Requested Prescriptions [...] in the answers given. We reviewed the [place] [employer] recommendations for reduction of overall [...] feel free to call our office at [phone]. I would be happy to be of further assistance for Delilah Whyte wellbeing. Rafy Escobar MD Distribution Coordinator, Division of Cardiology [facility] Transitional Care Management: [id number] Visit 07/20/2020 Delilah Whyte is a 54 year old female that was admitted on 12/24/19 to [facility] AT [address]. She was discharged on 12/25/19 with [...] obstructive pulmonary disease) Coronary artery disease involving houlton coronary artery of houlton heart with angina pectoris 06/08/2019 Depression Encephalitis 2014 Essential hypertension, benign Former smoker History of CVA (cerebrovascular accident) left side numbness, L sided facial droop Hyperlipidemia Morbid obesity Posttraumatic stress disorder Right ovarian cyst Seizures 2015 encephalitis Unspecified migraine Past Surgical History: Procedure Laterality Date ANKLE ARTHRODESIS Right 1997 APPENDECTOMY CHOLECYSTECTOMY CORONARY ARTERY BYPASS GRAFT N/A 06/30/2019 Surgeon: Noah Bolton Jr., MD; Location: [facility] FOOT ORIF (SHX) Bilateral HYSTERECTOMY Social History [...] file Gets together: Not on file Attends pentecostalism service: Not on file Active member of [...] on file Social History Narrative Lives in [place] with and Kids Family History Problem Relation [...] Team Description 07/25/2020 Appointment Ji Zhang MD [address] [place] [address]. [place] [address] YovanySam Clarence 08/21/2020 Nurse Visit Cardiology Visit, Alex Nurse 09/21/2020 Office Visit Cardiology Ludwig Escobar MD [address] [place] [phone] Name Type Priority Associated Diagnoses Order S chedule CBC WITH DIFF LAB Routine Coronary artery 1 Occurrenc es disease involving starting 09/20/2019 houlton coronary until 2020 artery of houlton heart without angina pectoris Atypical chest p ain S/P CABG (coronary artery bypass gr aft) Essential hypertension Chronic diastolic heart failure Dyslipidemia History of CVA (cerebrovascular accident) BRO (dyspnea on exertion) Thrombocytopenia COMP. METABOLIC LAB Routine Coronary artery 1 Occurre nces PANEL (30768) disease involving starting 07/20/2020 houlton coronary until 2020 artery of houlton heart without angina pectoris Atypical chest p ain S/P CABG (coronary artery bypass gr aft) Essential hypertension Chronic diastolic heart failure Dyslipidemia History of CVA (cerebrovascular accident) BRO (dyspnea on exertion) Thrombocytopenia LIPID PANEL LAB Routine Coronary artery 1 Occurrence s (24997)(TOTAL disease involving starting 07/20/2020 CHOLESTEROL, houlton coronary until 2020 TRIGLYCERIDES, HDL) artery of houlton heart without angina pectoris Atypical chest p ain S/P CABG (coronary artery bypass gr aft) Essential hypertension Chronic diastolic heart failure Dyslipidemia History of CVA (cerebrovascular accident) BRO (dyspnea on exertion) Thrombocytopenia N-TERMINAL PRO-BNP LAB Routine Coronary artery 1 Occu rrences disease involving starting 1 09/20/2019 houlton coronary until 2020 artery of houlton heart without angina pectoris Atypical chest p ain S/P CABG (coronary artery bypass gr aft) Essential hypertension Chronic diastolic heart failure Dyslipidemia History of CVA (cerebrovascular accident) BRO (dyspnea on exertion) Thrombocytopenia CARDIO LOOP MONITOR HEART STATION Routine Coronary artery 1 Oc currences disease involving starting 09/20/2019 houlton coronary until 2020 artery of houlton heart without angina pectoris Atypical chest p [...] of this encounter Implants Implanted Type Area Steel Pickler Device Shelf Expiration Model / Identifier Date Serial / Lot Screw SCREW Right: Ankle Screw SCREW Left: Foot documented as of this encounter Results Not on filedocumented in this encounter Visit Diagnoses Diagnosis 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
--- OUTSIDE RECORDS SUMMARY | 2020-09-13 10:43 | XMS REPORT | Summary of Care ---
:1965 Author Organization [address] [address] Care Team Providers Name Role Phone James Burton Primary Care Provider Reason for Referral (Routine) Status Reason Specialty Diagnoses / Referred By Contact Refe rred To Procedures Contact New Request EEG Diagnoses Memory loss Cerebrovascular disease Ji Swartz Eeg/Ep-Jsa Procedures Electroencephalogram (EEG) - Duration of test: 20-60 mins MD Clayton [address] [phone] Phone: Phone: Fax: Reason for Visit Reason Comments New Evaluation per patient previous stroke (Routine) Status Reason Specialty Diagnoses / Procedures Referred By Silvia oconnelled To Contact Contact Closed Neurology Diagnoses History of cerebrovascular accident with current residual effects Left hemiparesis James Burton Procedures CONSULT NEUROLOGY [address] [facility] [address] [place] [address] Encounter Details Date Type Department Care Team Description 06/27/2020 Office Visit [facility] Ji Swartz Cerebrovascu lar disease (Primary Dx); Neurology-Jairo Arnold MD Essential hypertension; [address] [place] [address]; [facility], [address] [facility] [phone] [phone] Allergies Active Allergy Reactions Severity Noted Date [...] DAILY NEEDED disease involving FOR LEG SWELLING wales coronary AND BODY WEIGHT artery of wales heart with angina pectoris, NSTEMI (non-ST elevated [...] (Recommend to disease involving take KCL if wales coronary taking lasix.) artery of wales for up to 30 [...] Added automatically from request for ilan dorothy [id number] Sepsis 05/03/2019 Obesity (BMI 30-39.9) 05/03/2019 Other [...] with No / Unsure 06/27/2020 1:48 PM ELECTRIC ARC FURNACE OPERATOR someone who was confirmed or suspected to have Coronavirus / COVID-19? documented as of this encounter Last Filed Vital Signs Vital Sign Reading Time Taken Comments Blood Pressure 118/68 06/27/2020 2:03 PM ELECTRIC ARC FURNACE OPERATOR Pulse 67 06/27/2020 2:03 PM ELECTRIC ARC FURNACE OPERATOR Temperature - - Respiratory Rate - - Oxygen Saturation 100% 06/27/2020 2:03 PM ELECTRIC ARC FURNACE OPERATOR Inhaled Oxygen Concentration - - Weight 68.5 kg (151 lb) 06/27/2020 2:03 PM ELECTRIC ARC FURNACE OPERATOR Height 160 cm (5' 3") 06/27/2020 2:03 PM ELECTRIC ARC FURNACE OPERATOR Body Mass Index 26.75 06/27/2020 2:03 PM ELECTRIC ARC FURNACE OPERATOR documented in this encounter Progress Notes Ji [...] 40 minute office visit. Ji Swartz MD [employer] Neurology NEUROLOGY CLINIC NOTE DATE OF SERVICE: [...] cognitive impairment. The patient was seen at [facility] in December of this year for worsening stroke symptoms (gait, memory, and L sided numbness), but MRI and CTA were negative for any acute infarct or intracranial hemorrhage. The patient was seen again at [facility] in May for a similar episode and [...] obstructive pulmonary disease) Coronary artery disease involving wales coronary artery of wales heart with angina pectoris 06/08/2019 Depression Encephalitis [...] Surgeon: Noah Bolton Jr., MD; Location: [facility] FOOT ORIF (SHX) Bilateral HYSTERECTOMY FAMILY HISTORY [...] file Gets together: Not on file Attends holiness service: Not on file Active member of [...] on file Social History Narrative Lives in [place] with and Kids Reviewed patient's family, surgical [...] recent memories, but can recall distant memories [place] Cognitive Assessment Score: 23/30 Cranial Nerves: I. [...] 48 hours were found. ASSESSMENT AND RECOMMENDATIONS Delilah Whyte is a 54 year old, right handed, female with PMH of R temporal lobe stroke (with residual L sided paresthesia, ataxia, and memory loss), migraines, HSV encephalitis, CAD with [id number], and PTSD who presented to clinic because [...] faculty. Kevin Chowdary, MS3 Neurology Consult Pager: [phone] [place] [phone] TRIC ARC FURNACE OPERATOR documented in this encounter Plan of Treatment Date Type Specialty Care Team Description 07/25/2020 Appointment EEG Ji Swartz MD [address] [place], [place] [address] [address] Tech, [employer] Eeg Health Maintenance [...] of this encounter Implants Implanted Type Area Roofing Technician Device Shelf Expiration Model / Identifier Date [...] Address T ype Group Dates KARMA PARADA [id number] 2016-[address] [place] [address] [place] MED[place] (Work) documented as of this encounter Advance Directives Name Relationship Healthcare Agent Communication Relationship Swapnil Whyte Spouse Health Care Agent
--- OUTSIDE RECORDS SUMMARY | 2020-09-13 10:44 | XMS REPORT | Summary of Care ---
:1965 Author Organization [facility] Address [address] [place] [id number] Care Team Providers Name Role Phone James Burton Primary Care Provider Reason for Referral (Routine) Status Reason Specialty Diagnoses / Referred By Referred To Procedures Contact Contact New Request Cardiology Diagnoses Coronary artery disease involving [place] coronary artery of [place] heart without angina pectoris Atypical chest pain S/P CABG (coronary artery bypass graft) Essential hypertension Chronic diastolic heart failure Dyslipidemia Escobar, Sendil History of CVA ( cerebrovascular accident) BRO (dyspnea on exertion) Jimmie Cannon MD Procedures CARDIO LOOP MONITOR [address] [place] [address] Reason for Visit Reason Comments Follow-up CAD/Cath Encounter Details Date Type Department Care Team Description 07/20/2020 Office Visit [facility] Escobar, Sendil Coronary herson ry disease involving [place] coronary artery of [place] heart without angina pectoris (Primary Dx); Cardiology- Jairo Cannon MD Atypical chest pain; [address] S/P CABG (coronary artery bypass graft); Drive, [address] Essential hypertension; [place], [place] Chronic diastol ic heart failure; [id number] Dyslipidemia; [phone] History of CVA (cerebrovascular accident ); [phone] BRO (dyspnea on exertion); (Fax) Thrombocytopeni a Allergies Active Allergy Reactions Severity Noted Date Comments Prochlorperazine Edisylate Nausea and/or 08/21/2005 Vomiting Divalproex Sodium Anxiety 08/21/2005 Gabapentin Unknown - See 01/02/2008 Blurred vision comments Nsaids (Non-Steroidal Nausea and/or 06/15/2015 Anti-Inflammatory Drug) Vomiting Butorphanol Tartrate Rash 08/21/2005 Ketorolac Tromethamine Rash 08/21/2005 documented as of this encounter (statuses as of 07/30/2020) Medications Medication Sig Dispensed Refills Start End Date Status Date atorvastatin 80 mg Take 1 tablet 30 tablet 3 Active tabletIndications: by mouth at 0 S/P CABG (coronary bedtime. artery bypass graft), Coronary artery disease involving [place] coronary artery of [place] heart with angina pectoris LORazepam 2 mg [...] artery DAILY NEEDED disease involving FOR LEG [place] coronary SWELLING AND artery of [place] BODY WEIGHT heart with angina pectoris, NSTEMI [...] Coronary artery WITH LASIX disease involving NEEDED [place] coronary artery of [place] heart with angina pectoris, NSTEMI (non-ST elevated [...] (eight) hours disease involving as needed for [place] coronary Nausea and artery of [place] Vomiting (N/V) heart without angina for up [...] as of this encounter (statuses as of 07/30/2020) Active Problems Problem Noted Date Weakness 12/25/2019 Pericardial effusion 10/25/2019 Arm DVT (deep venous thromboembolism), acute, left 04/2020 Chest pain 10/24/2019 NSTEMI (non-ST elevated myocardial infarction) 020 Left sided numbness 09/03/2019 S/P CABG (coronary artery bypass graft) 06/30/2019 Leukocytosis 06/16/2019 Tachycardia 06/15/2019 Coronary artery disease involving [place] coronary herson ry of [place] heart 06/08/2019 with angina pectoris Overview: Added automatically from request for ilan de la cruz [id number] Sepsis 05/03/2019 Obesity (BMI 30-39.9) 05/03/2019 Other [...] as of this encounter (statuses as of 07/30/2020) Immunizations Name Administration Dates Next Due Influenza [...] with No / Unsure 07/20/2020 1:14 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 documented as of this encounter Last Filed Vital Signs Vital Sign Reading Time Taken Comments Blood Pressure 133/92 07/20/2020 1:29 PM FOAM GUN OPERATOR Pulse 87 07/20/2020 1:29 PM FOAM GUN OPERATOR Temperature - - Respiratory Rate 19 07/20/2020 1:29 PM FOAM GUN OPERATOR Oxygen Saturation 99% 07/20/2020 1:29 PM FOAM GUN OPERATOR Inhaled Oxygen Concentration - - Weight 67.7 kg (149 lb 3.2 oz) 07/20/2020 1:29 PM FOAM GUN OPERATOR Height 160 cm (5' 3") 07/20/2020 1:29 PM FOAM GUN OPERATOR Body Mass Index 26.43 07/20/2020 1:29 PM FOAM GUN OPERATOR documented in this encounter Progress Notes Ludwig Escobar MD - 07/20/2020 10:00 AM CST [facility] Cardiology Consult Note Patient: Delilah Whyte Date of : 1965 Primary Care Physician: James Burton CHIEF COMPLAINT: Chief Complaint Patient presents with Follow-up CAD/Cath History of Present Illness: Delilah Whyte is a 54 year old female presents to clinic for follow up for CAD/CABG and recent hospital stay 06/2020. History from patient herself along with her . Records from reviewed which needs to be merged with this current chart. Since the last OV 12/2019, She reports getting admitted in 05/2020 with [place] in [facility].Underwent coronary angiogram and also reports having a stent placement. No details available. Formsigned to get the discharge summary/angiogram report/echo 06/2020 she was admitted in [place] again for abdominal pain diarrhea noted to have C. difficile colitis. During the time also she was noted to have mild elevated troponins at 0.6. No EKG changes and echocardiogram was preserved. Attributed to type II [place]. Cardiology was consulted during that admission. She [...] and left facial drop. Was sent to [facility]. On 11/2018: Admitted for new onset leg edema, dyspnea on exertion and orthopnea. She was in [facility] a few times for various issues [...] obstructive pulmonary disease) Coronary artery disease involving [place] coronary artery of [place] heart with angina pectoris 06/08/2019 Depression Encephalitis [...] Noah Bolton Jr., MD; Location: [facility] FOOT ORIF (SHX) Bilateral HYSTERECTOMY Family [...] file Gets together: Not on file Attends latter day service: Not on file Active member of [...] on file Social History Narrative Lives in [place] with and Kids ALLERGIES Allergies Allergen Reactions [...] (H) ASSESSMENT/PLAN 1. Coronary artery disease involving [place] coronary artery of [place] heart without angina pectorisCBC WITH DIFF COMP. METABOLIC PANEL (28130) LIPID PANEL (65976)(TOTAL CHOLESTEROL, TRIGLYCERIDES, HDL) N-TERMINAL PRO-BNP CARDIO LOOP MONITOR proMETHazine 25 mg tablet 2. Atypical chest pain CBC WITH DIFF COMP. METABOLIC PANEL (78723) LIPID PANEL (80365)(TOTAL CHOLESTEROL, TRIGLYCERIDES, HDL) N-TERMINAL PRO-BNP CARDIO LOOP MONITOR proMETHazine 25 mg tablet 3. S/P CABG (coronary artery bypass graft) CBC WITH DIFF COMP. METABOLIC PANEL (50962) LIPID PANEL (48085)(TOTAL CHOLESTEROL, TRIGLYCERIDES, HDL) N-TERMINAL PRO-BNP CARDIO LOOP MONITOR proMETHazine 25 mg tablet 4. Essential hypertension CBC WITH DIFF COMP. METABOLIC PANEL (42439) LIPID PANEL (56336)(TOTAL CHOLESTEROL, TRIGLYCERIDES, HDL) N-TERMINAL PRO-BNP CARDIO LOOP MONITOR proMETHazine 25 mg tablet 5. Chronic diastolic heart failure CBC WITH DIFF COMP. METABOLIC PANEL (64564) LIPID PANEL (79431)(TOTAL CHOLESTEROL, TRIGLYCERIDES, HDL) N-TERMINAL PRO-BNP CARDIO LOOP MONITOR proMETHazine 25 mg tablet 6. Dyslipidemia CBC WITH DIFF COMP. METABOLIC PANEL (42984) LIPID PANEL (68475)(TOTAL CHOLESTEROL, TRIGLYCERIDES, HDL) N-TERMINAL PRO-BNP CARDIO LOOP MONITOR proMETHazine 25 mg tablet 7. History of CVA (cerebrovascular accident) CBC WITH DIFF COMP. METABOLIC PANEL (95848) LIPID PANEL (76601)(TOTAL CHOLESTEROL, TRIGLYCERIDES, HDL) N-TERMINAL PRO-BNP CARDIO LOOP MONITOR proMETHazine 25 mg tablet 8. BRO (dyspnea on exertion) CBC WITH DIFF COMP. METABOLIC PANEL (24551) LIPID PANEL (80341)(TOTAL CHOLESTEROL, TRIGLYCERIDES, HDL) N-TERMINAL PRO-BNP CARDIO LOOP MONITOR proMETHazine 25 mg tablet 9. Thrombocytopenia CBC WITH DIFF COMP. METABOLIC PANEL (42076) LIPID PANEL (88752)(TOTAL CHOLESTEROL, TRIGLYCERIDES, HDL) N-TERMINAL PRO-BNP CARDIO LOOP MONITOR proMETHazine 25 mg tablet Her medical records from in which her recent admission [place] was reviewed from 06/2020. The cardiology consult [...] C. difficile colitis. Attributed to type II [place]. CAD s/p CABG 06/2019: Per patient she had stent placement done [facility] 05/2020 secondary to [place] NM Stress test 09/2019: negative. Echo 06/2020: Preserved EF. On Lopresor 50 mg BiD/lipitor 80 mg daily/SL nitro PRN Since Eliquis is being discontinued, recommend restarting aspirin 81 daily and continued Plavix 75 gdaily We will get records from [facility] regarding the admission in May 2020. Form signed. Recommended to DC colchicine completely. Small Possible hemorraghic pericardial effusion by CT in pericardial effusion: Echo recently done 06/2020 was reviewed No pericardial fusion noted. DVT LUE 10/15/2019: Resolved by vascular study done on 06/2020: Recommend to CASSIDY Savita No clear-cut evidence of A. fib noted so far. We also reviewed Dr Gardiner ([facility]) notes from 05/2013. Hypercoagulable work-up has been [...] August 2019 H/o stroke: Follow up with [facility] neurology. Continue ASA/Plavix/lipitor. We will plan for [...] Procedures CBC WITH DIFF COMP. METABOLIC PANEL (99554) LIPID PANEL (64908)(TOTAL CHOLESTEROL, TRIGLYCERIDES, HDL) N-TERMINAL PRO-BNP Requested Prescriptions [...] in the answers given. We reviewed the [place] [employer] recommendations for reduction of overall [...] feel free to call our office at [phone]. I would be happy to be of further assistance for Delilah Whyte wellbeing. Rafy Escobar MD Maintenance Data Analyst, Division of Cardiology [facility] Transitional Care Management: [id number] Visit 07/20/2020 Delilah Whyte is a 54 year old female that was admitted on 12/24/19 to [facility] AT [address] She was discharged on 12/25/19 with a discharge disposition of HR- Routine Discharge. Delilah is here today for a hospital follow-up/transitional care management visit. CC: Follow-up (CAD/Cath) HPI Allergies Delilah is allergic to compazine [...] obstructive pulmonary disease) Coronary artery disease involving [place] coronary artery of [place] heart with angina pectoris 06/08/2019 Depression Encephalitis 2014 Essential hypertension, benign Former smoker History of CVA (cerebrovascular accident) left side numbness, L sided facial droop Hyperlipidemia Morbid obesity Posttraumatic stress disorder Right ovarian cyst Seizures 2015 encephalitis Unspecified migraine Past Surgical History: Procedure Laterality Date ANKLE ARTHRODESIS Right 1997 APPENDECTOMY CHOLECYSTECTOMY CORONARY ARTERY BYPASS GRAFT N/A 06/30/2019 Surgeon: Noah Bolton Jr., MD; Location: [facility] FOOT ORIF (SHX) Bilateral HYSTERECTOMY Social History [...] file Gets together: Not on file Attends latter day service: Not on file Active member of [...] on file Social History Narrative Lives in [place] with and Kids Family History Problem Relation [...] Treatment Date Type Specialty Care Team Description 08/21/2020 Nurse Visit Cardiology Visit, Adc Nurse 09/21/2020 Office Visit Cardiology Ludwig Escobar MD [address] [place] [address] [phone] Name Type Priority Associated Diagnoses Order S chedule CBC WITH DIFF LAB Routine Coronary artery 1 Occurrenc es disease involving starting 09/20/2019 [place] coronary until 2020 artery of [place] heart without angina pectoris Atypical chest p ain S/P CABG (coronary artery bypass gr aft) Essential hypertension Chronic diastolic heart failure Dyslipidemia History of CVA (cerebrovascular accident) BRO (dyspnea on exertion) Thrombocytopenia COMP. METABOLIC LAB Routine Coronary artery 1 Occurre nces PANEL (78231) disease involving starting 07/20/2020 [place] coronary until 2020 artery of [place] heart without angina pectoris Atypical chest p ain S/P CABG (coronary artery bypass gr aft) Essential hypertension Chronic diastolic heart failure Dyslipidemia History of CVA (cerebrovascular accident) BRO (dyspnea on exertion) Thrombocytopenia LIPID PANEL LAB Routine Coronary artery 1 Occurrence s (24693)(TOTAL disease involving starting 07/20/2020 CHOLESTEROL, [place] coronary until 2020 TRIGLYCERIDES, HDL) artery of [place] heart without angina pectoris Atypical chest p ain S/P CABG (coronary artery bypass gr aft) Essential hypertension Chronic diastolic heart failure Dyslipidemia History of CVA (cerebrovascular accident) BRO (dyspnea on exertion) Thrombocytopenia N-TERMINAL PRO-BNP LAB Routine Coronary artery 1 Occu rrences disease involving starting 09/20/2019 [place] coronary until 2020 artery of [place] heart without angina pectoris Atypical chest p ain S/P CABG (coronary artery bypass gr aft) Essential hypertension Chronic diastolic heart failure Dyslipidemia History of CVA (cerebrovascular accident) BRO (dyspnea on exertion) Thrombocytopenia CARDIO LOOP MONITOR HEART STATION Routine Coronary artery 1 Oc currences disease involving starting 09/20/2019 [place] coronary until 2020 artery of [place] heart without angina pectoris Atypical chest p [...] of this encounter Implants Implanted Type Area Chief Unit Forester Device Shelf Expiration Model / Identifier Date Serial / Lot Screw SCREW Right: Ankle Screw SCREW Left: Foot documented as of this encounter Results Not on filedocumented in this encounter Visit Diagnoses Diagnosis Coronary artery disease involving [place] coronary artery of [place] heart without angina pectoris - Primary Atypical [...] Address T e Group Dates KARMA PARADA [id number] [address] Medic [place] [id number] [place]ID [place] (Work) documented as of this encounter Advance Directives Name Relationship Healthcare Agent Communication Relationship Swapnil Whyte Spouse Health Care Agent
--- OUTSIDE RECORDS SUMMARY | 2020-09-13 10:44 | XMS REPORT | Summary of Care ---
:1965 Author Organization [facility] Address [address] [place] [address] Care Team Providers Name Role Phone James Burton Primary Care Provider Encounter Details Date Type Department Care Team Description 07/20/2020 Orders Only [facility] Doctor Unassigned, [address] [facility] [place] [address] [address] [place] [address] Allergies Active Allergy Reactions Severity Noted Date Comments Prochlorperazine Edisylate Nausea and/or 08/21/2005 Vomiting Divalproex Sodium Anxiety 08/21/2005 Gabapentin Unknown - See 01/02/2008 Blurred vision comments Nsaids (Non-Steroidal Nausea and/or 06/15/2015 Anti-Inflammatory Drug) Vomiting Butorphanol Tartrate Rash 08/21/2005 Ketorolac Tromethamine Rash 08/21/2005 documented as of this encounter (statuses as of 07/31/2020) Medications Medication Sig Dispensed Refills Start Date End Date Status atorvastatin 80 mg Take 1 tablet by 30 tablet 3 09/03/2019 Active tabletIndications: S/P mouth at CABG (coronary artery bedtime. bypass graft), Coronary artery disease involving [place] coronary artery of [place] heart with angina pectoris LORazepam 2 mg tablet Take 1 tablet by 0 10/14/2019 Active mouth 2 (two) times daily. SERTraline 100 mg tablet Take 1 tablet by 0 10/14/19 20 Active mouth daily. buPROPion SR 100 mg SR Take 1 tablet by 60 tablet 0 10/18/2019 Active tabletIndications: mouth 2 (two) NSTEMI (non-ST elevated times daily. myocardial infarction), Bacteremia due to Enterobacter species zolpidem (AMBIEN) 10 mg Take 10 mg by 0 Active tablet mouth at bedtime as needed for Insomnia. topiramate 50 mg tablet Take 50 mg by 0 09/01/2019 Active mouth 2 (two) times daily. FUROSEMIDE 40 mg TAKE ONE TABLET 30 tablet 11 06/01/2020 Active tabletIndications: BY MOUTH ONCE Coronary artery disease DAILY NEEDED involving [place] FOR LEG SWELLING coronary artery of AND BODY WEIGHT [place] heart with angina pectoris, NSTEMI (non-ST elevated myocardial infarction) METOPROLOL TARTRATE 50 TAKE ONE TABLET 60 tablet 11 06/01/2020 Active mg tabletIndications: BY MOUTH TWICE A NSTEMI (non-ST elevated DAY myocardial infarction), Bacteremia due to Enterobacter species hydrOXYzine 50 mg tablet Take 50 mg by 0 Active mouth 3 (three) times daily. KLOR-CON M20 20 mEq TAKE ONE TABLET 30 tablet 1 07/04/2020 Active tabletIndications: BY MOUTH DAILY Coronary artery disease WITH LASIX involving [place] NEEDED coronary artery of [place] heart with angina pectoris, NSTEMI (non-ST elevated myocardial infarction) clopidogreL (PLAVIX) 75 Take 75 mg by 0 Active mg tablet mouth daily. aspirin 81 mg EC tablet Take 81 mg by 0 Active mouth daily. nitroglycerin [address] 0.4 mg 0 Active sublingual tablet under the tongue every 5 (five) minutes as needed for Chest pain. proMETHazine 25 mg Take 1 tablet by 30 tablet 0 07/20/2020 Active tabletIndications: mouth every 8 Coronary artery disease (eight) hours as involving [place] needed for coronary artery of Nausea and [place] heart without Vomiting (N/V) angina pectoris, for up to 30 Atypical chest pain, S/P doses. CABG (coronary artery bypass graft), Essential hypertension, Chronic diastolic heart failure, Dyslipidemia, History of CVA (cerebrovascular accident), BRO (dyspnea on exertion), Thrombocytopenia documented as of this encounter (statuses as of 07/31/2020) Active Problems Problem Noted Date Weakness 12/25/2019 Pericardial effusion 10/25/2019 Arm DVT (deep venous thromboembolism), acute, left 04/2020 Chest pain 10/24/2019 NSTEMI (non-ST elevated myocardial infarction) 020 Left sided numbness 09/03/2019 S/P CABG (coronary artery bypass graft) 06/30/2019 Leukocytosis 06/16/2019 Tachycardia 06/15/2019 Coronary artery disease involving [place] coronary herson ry of [place] heart 06/08/2019 with angina pectoris Overview: Added automatically from request for ilan de la cruz [id number] Sepsis 05/03/2019 Obesity (BMI 30-39.9) 05/03/2019 Other [...] as of this encounter (statuses as of 07/31/2020) Immunizations Name Administration Dates Next Due Influenza [...] with No / Unsure 07/20/2020 1:14 PM 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 documented as of this encounter Last Filed Vital Signs Not on filedocumented in this encounter Plan of Treatment Date Type Specialty Care Team Description 08/21/2020 Nurse Visit Cardiology Visit, Adc Nurse 09/21/2020 Office Visit Cardiology Ludwig Escobar MD [address] [place] [phone] Health Maintenance Due Date Last Done [...] of this encounter Implants Implanted Type Area Rent And Miscellaneous Remittance Clerk Device Shelf Expiration Model / Identifier Date Serial / Lot Screw SCREW Right: Ankle Screw SCREW Left: Foot documented as of this encounter Procedures Procedure Name Priority Date/Time Associated Diagnosis Comme nts AUTHORIZATION TO RELEASE Routine 07/20/2020 12:01 AM PHI TO [facility] PHLEBOTOMY SERVICES REPRESENTATIVE documented in this encounter Results Not on filedocumented in this encounter Insurance Payer Benefit Plan / Subscriber ID Effective Phone Address T ype Group Dates KARMA PARADA [id number] 2015-[address] Medic [place] [id number] [place] KARMA PARADA [id number] 2015-[address] Medic [place] [id number] [place] documented as of this encounter Advance Directives Name Relationship Healthcare Agent Communication Relationship Swapnil Whyte Spouse Health Care Agent
--- OUTSIDE RECORDS SUMMARY | 2020-09-13 10:45 | XMS REPORT | Summary of Care ---
:1965 Author Organization [facility] Address [address] [place] [id number] Care Team Providers Name Role Phone James Burton Primary Care Provider Reason for Referral (Routine) Status Reason Specialty Diagnoses / Referred By Referred To Procedures Contact Contact New Request Cardiology Diagnoses Coronary artery disease involving [place] coronary artery of [place] heart without angina pectoris Atypical chest pain S/P CABG (coronary artery bypass graft) Essential hypertension Chronic diastolic heart failure Dyslipidemia Escobar, Sendil History of CVA ( cerebrovascular accident) BRO (dyspnea on exertion) Jimmie Cannon MD Procedures CARDIO LOOP MONITOR [address] [place] [address] Reason for Visit Reason Comments Follow-up CAD/Cath Encounter Details Date Type Department Care Team Description 07/20/2020 Office Visit [facility] Escobar, Sendil Coronary herson ry disease involving [place] coronary artery of [place] heart without angina pectoris (Primary Dx); Cardiology- Jairo Cannon MD Atypical chest pain; [address] S/P CABG (coronary artery bypass graft); Drive, [address] Essential hypertension; [place], [place] Chronic diastol ic heart failure; [id number] Dyslipidemia; [phone] History of CVA (cerebrovascular accident ); [phone] BRO (dyspnea on exertion); (Fax) Thrombocytopeni a [...] 07/31/2020) Medications Medication Sig Dispensed Refills Start End Date Status Date atorvastatin 80 mg Take 1 tablet 30 tablet 3 Active tabletIndications: by mouth at 0 S/P CABG (coronary bedtime. artery bypass graft), Coronary artery disease involving [place] coronary artery of [place] heart with angina pectoris LORazepam 2 mg [...] artery DAILY NEEDED disease involving FOR LEG [place] coronary SWELLING AND artery of [place] BODY WEIGHT heart with angina pectoris, NSTEMI [...] Coronary artery WITH LASIX disease involving NEEDED [place] coronary artery of [place] heart with angina pectoris, NSTEMI (non-ST elevated [...] (eight) hours disease involving as needed for [place] coronary Nausea and artery of [place] Vomiting (N/V) heart without angina for up [...] 06/16/2019 Tachycardia 06/15/2019 Coronary artery disease involving [place] coronary herson ry of [place] heart 06/08/2019 with angina pectoris Overview: Added automatically from request for ilan de la cruz [id number] Sepsis 05/03/2019 Obesity (BMI 30-39.9) 05/03/2019 Other [...] with No / Unsure 07/20/2020 1:14 PM COMPANY SECRETARY someone who was confirmed or suspected to have Coronavirus / COVID-19? documented as of this encounter Last Filed Vital Signs Vital Sign Reading Time Taken Comments Blood Pressure 133/92 07/20/2020 1:29 PM COMPANY SECRETARY Pulse 87 07/20/2020 1:29 PM COMPANY SECRETARY Temperature - - Respiratory Rate 19 07/20/2020 1:29 PM COMPANY SECRETARY Oxygen Saturation 99% 07/20/2020 1:29 PM COMPANY SECRETARY Inhaled Oxygen Concentration - - Weight 67.7 kg (149 lb 3.2 oz) 07/20/2020 1:29 PM COMPANY SECRETARY Height 160 cm (5' 3") 07/20/2020 1:29 PM COMPANY SECRETARY Body Mass Index 26.43 07/20/2020 1:29 PM COMPANY SECRETARY documented in this encounter Progress Notes Ludwig Escobar MD - 07/20/2020 10:00 AM CST [facility] Cardiology Consult Note [...] She reports getting admitted in 05/2020 with NE in [facility].Underwent coronary angiogram and also reports having a stent placement. No details available. Formsigned to get the discharge summary/angiogram report/echo 06/2020 she was admitted in [place] again for abdominal pain diarrhea noted to have C. difficile colitis. During the time also she was noted to have mild elevated troponins at 0.6. No EKG changes and echocardiogram was preserved. Attributed to type II NE. Cardiology was consulted during that admission. She [...] and left facial drop. Was sent to [facility]. On 11/2018: Admitted for new onset leg edema, dyspnea on exertion and orthopnea. She was in [facility] a few times for various issues [...] MEDICAL HISTORY Past Medical History: Diagnosis Date ISADROA (acute kidney injury) 12/23/2018 Antiphospholipid syndrome 12/22/2018 Anxiety CHF (congestive heart failure) seems chronic but unclear if systolic or diastolic Chronic back pain LBP Chronic depressive personality disorder COPD (chronic obstructive pulmonary disease) Coronary artery disease involving [place] coronary artery of [place] heart with angina pectoris 06/08/2019 Depression Encephalitis [...] Surgeon: Noah Bolton Jr., MD; Location: [facility] FOOT ORIF (SHX) Bilateral HYSTERECTOMY Family History [...] file Gets together: Not on file Attends caodaism service: Not on file Active member of [...] on file Social History Narrative Lives in [place] with and Kids ALLERGIES Allergies Allergen Reactions [...] (H) ASSESSMENT/PLAN 1. Coronary artery disease involving [place] coronary artery of [place] heart without angina pectorisCBC WITH DIFF COMP. METABOLIC PANEL (70458) LIPID PANEL (35746)(TOTAL CHOLESTEROL, TRIGLYCERIDES, HDL) N-TERMINAL PRO-BNP CARDIO LOOP MONITOR proMETHazine 25 mg tablet 2. Atypical chest pain CBC WITH DIFF COMP. METABOLIC PANEL (56104) LIPID PANEL (68981)(TOTAL CHOLESTEROL, TRIGLYCERIDES, HDL) N-TERMINAL PRO-BNP CARDIO LOOP MONITOR proMETHazine 25 mg tablet 3. S/P CABG (coronary artery bypass graft) CBC WITH DIFF COMP. METABOLIC PANEL (05822) LIPID PANEL (27631)(TOTAL CHOLESTEROL, TRIGLYCERIDES, HDL) N-TERMINAL PRO-BNP CARDIO LOOP MONITOR proMETHazine 25 mg tablet 4. Essential hypertension CBC WITH DIFF COMP. METABOLIC PANEL (93610) LIPID PANEL (33604)(TOTAL CHOLESTEROL, TRIGLYCERIDES, HDL) N-TERMINAL PRO-BNP CARDIO LOOP MONITOR proMETHazine 25 mg tablet 5. Chronic diastolic heart failure CBC WITH DIFF COMP. METABOLIC PANEL (42506) LIPID PANEL (25493)(TOTAL CHOLESTEROL, TRIGLYCERIDES, HDL) N-TERMINAL PRO-BNP CARDIO LOOP MONITOR proMETHazine 25 mg tablet 6. Dyslipidemia CBC WITH DIFF COMP. METABOLIC PANEL (84971) LIPID PANEL (05263)(TOTAL CHOLESTEROL, TRIGLYCERIDES, HDL) N-TERMINAL PRO-BNP CARDIO LOOP MONITOR proMETHazine 25 mg tablet 7. History of CVA (cerebrovascular accident) CBC WITH DIFF COMP. METABOLIC PANEL (16773) LIPID PANEL (33523)(TOTAL CHOLESTEROL, TRIGLYCERIDES, HDL) N-TERMINAL PRO-BNP CARDIO LOOP MONITOR proMETHazine 25 mg tablet 8. BRO (dyspnea on exertion) CBC WITH DIFF COMP. METABOLIC PANEL (69513) LIPID PANEL (77197)(TOTAL CHOLESTEROL, TRIGLYCERIDES, HDL) N-TERMINAL PRO-BNP CARDIO LOOP MONITOR proMETHazine 25 mg tablet 9. Thrombocytopenia CBC WITH DIFF COMP. METABOLIC PANEL (33962) LIPID PANEL (05028)(TOTAL CHOLESTEROL, TRIGLYCERIDES, HDL) N-TERMINAL PRO-BNP CARDIO LOOP MONITOR proMETHazine 25 mg tablet Her medical records from in which her recent admission [place] was reviewed from 06/2020. The cardiology [...] C. difficile colitis. Attributed to type II NE. CAD s/p CABG 06/2019: Per patient she had stent placement done [facility] 05/2020 secondary to NE NM Stress test 09/2019: negative. Echo 06/2020: Preserved EF. On Lopresor 50 mg BiD/lipitor 80 mg daily/SL nitro PRN Since Eliquis is being discontinued, recommend restarting aspirin 81 daily and continued Plavix 75 gdaily We will get records from [facility] regarding the admission in May 2020. Form signed. Recommended to DC colchicine completely. Small Possible hemorraghic pericardial effusion by CT in pericardial effusion: Echo recently done 06/2020 was reviewed No pericardial fusion noted. DVT LUE 10/15/2019: Resolved by vascular study done on 06/2020: Recommend to CASSIDY Savita No clear-cut evidence of A. fib noted so far. 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 Hypercoagulable work-up has been [...] August 2019 H/o stroke: Follow up with [facility] neurology. Continue ASA/Plavix/lipitor. We will plan for [...] Procedures CBC WITH DIFF COMP. METABOLIC PANEL (14605) LIPID PANEL (20883)(TOTAL CHOLESTEROL, TRIGLYCERIDES, HDL) N-TERMINAL PRO-BNP Requested Prescriptions [...] in the answers given. We reviewed the [place] [employer] recommendations for reduction of overall [...] feel free to call our office at [phone]. I would be happy to be of further assistance for Delilah Whyte wellbeing. Rafy Escobar MD Science Consultant, Division of Cardiology [facility] Addendum 07/31/2020 CT abdomen pelvis space 07/10/2020 shows moderate right-sided colitis NT proBNP May 27, 2020 191 No cath/echo report was received. Rafy Escobar MD Science Consultant, Division of Cardiology [facility] Transitional Care Management: [id number] Visit 07/20/2020 Delilah Whyte is a 54 year old female that was admitted on 12/24/19 to [facility] AT [address]. She was discharged on 12/25/19 with [...] obstructive pulmonary disease) Coronary artery disease involving [place] coronary artery of [place] heart with angina pectoris 06/08/2019 Depression Encephalitis [...] Surgeon: Noah Bolton Jr., MD; Location: [facility] FOOT ORIF (SHX) Bilateral HYSTERECTOMY Social [...] file Gets together: Not on file Attends caodaism service: Not on file Active member of [...] on file Social History Narrative Lives in [place] with and Kids Family History Problem Relation [...] Escobar MD [address] [place] [address] [phone] Name Type Priority Associated Diagnoses Order S chedule CBC WITH DIFF LAB Routine Coronary artery 1 Occurrenc es disease involving starting 09/20/2019 [place] coronary until 2020 artery of [place] heart without angina pectoris Atypical chest p ain S/P CABG (coronary artery bypass gr aft) Essential hypertension Chronic diastolic heart failure Dyslipidemia History of CVA (cerebrovascular accident) BRO (dyspnea on exertion) Thrombocytopenia COMP. METABOLIC LAB Routine Coronary artery 1 Occurre nces PANEL (66518) disease involving starting 07/20/2020 [place] coronary until 2020 artery of [place] heart without angina pectoris Atypical chest p ain S/P CABG (coronary artery bypass gr aft) Essential hypertension Chronic diastolic heart failure Dyslipidemia History of CVA (cerebrovascular accident) BRO (dyspnea on exertion) Thrombocytopenia LIPID PANEL LAB Routine Coronary artery 1 Occurrence s (28478)(TOTAL disease involving starting 07/20/2020 CHOLESTEROL, [place] coronary until 2020 TRIGLYCERIDES, HDL) artery of [place] heart without angina pectoris Atypical chest p ain S/P CABG (coronary artery bypass gr aft) Essential hypertension Chronic diastolic heart failure Dyslipidemia History of CVA (cerebrovascular accident) BRO (dyspnea on exertion) Thrombocytopenia N-TERMINAL PRO-BNP LAB Routine Coronary artery 1 Occu rrences disease involving starting 1 09/20/2019 [place] coronary until 2020 artery of [place] heart without angina pectoris Atypical chest p ain S/P CABG (coronary artery bypass gr aft) Essential hypertension Chronic diastolic heart failure Dyslipidemia History of CVA (cerebrovascular accident) BRO (dyspnea on exertion) Thrombocytopenia CARDIO LOOP MONITOR HEART STATION Routine Coronary artery 1 Oc currences disease involving starting 09/20/2019 [place] coronary until 2020 artery of [place] heart without angina pectoris Atypical chest p [...] of this encounter Implants Implanted Type Area Lunchroom Operator Device Shelf Expiration Model / Identifier Date Serial / Lot Screw SCREW Right: Ankle Screw SCREW Left: Foot documented as of this encounter Results Not on filedocumented in this encounter Visit Diagnoses Diagnosis Coronary artery disease involving [place] coronary artery of [place] heart without angina pectoris - Primary Atypical [...] Address T ype Group Dates KARMA PARADA [id number] 2016[address] [facility] [phone] MANAGED MEDICAID [place] (Work) documented as of this encounter Advance Directives Name Relationship Healthcare Agent Communication Relationship Swapnil Whyte Spouse Health Care Agent
--- OUTSIDE RECORDS SUMMARY | 2020-09-13 10:45 | XMS REPORT | Summary of Care ---
:1965 Author Organization [facility] Address [address] [place] [address] Care Team Providers Name Role Phone Pcp, Patient Does Not Have A Primary Care Provider [id number] Pato Burton Unavailable Prezas Unavailable Reason for Visit Reason Comments NURSE VISIT Event Monitor (Routine) Status Reason Specialty Diagnoses / Procedures Referred By Malcolm cartwright Referred To Contact Closed Cardiology Diagnoses Coronary artery disease involving craig coronary artery of craig heart without angina pectoris Atypical chest pain S/P CABG (coronary artery bypass graft) Essential hypertension Chronic diastolic heart failure Dyslipidemia Escobar, Sendil History of CVA ( cerebrovascular accident) BRO (dyspnea on exertion) Thrombocytopenia MD Davis Procedures CARDIO LOOP MONITOR [address] [place] [address] Phone: Encounter Details Date Type Department Care Team Description 08/21/2020 Nurse Visit [facility] Longo M D [address] [facility] [address] [place] [address] Coronary artery disease involving craig coronary artery of craig heart without angina pectoris; Cardiology- [place] Visit, Adc Nurse Atypical chest pain; [address] [facility] S/P CABG (co ronary artery bypass graft); [address], [address] Essential hypertension; [place], [place] Chronic diastol ic heart failure; [address] Dyslipidemia; [phone] History of CVA (cerebrovascular accident); BRO (dyspnea on exertion); Thrombocytopeni a Allergies Active Allergy Reactions Severity Noted Date Comments Prochlorperazine Edisylate Nausea and/or 08/21/2005 Vomiting Divalproex Sodium Anxiety 08/21/2005 Gabapentin Unknown - See 01/02/2008 Blurred vision comments Gabapentin Hives 07/11/2020 Nsaids (Non-Steroidal Nausea and/or 06/15/2015 Anti-Inflammatory Drug) Vomiting Nsaids (Non-Steroidal Nausea and/or 07/11/2020 Was t old to avoid Anti-Inflammatory Drug) Vomiting abhilash use it would irritate her stomach Butorphanol Tartrate Rash 08/21/2005 Butorphanol Unknown - See 07/11/2020 comments Ketorolac Tromethamine Rash 08/21/2005 Ketorolac Nausea and/or 07/11/2020 Was told to av oid Vomiting because it woul d irritate her stomach documented as of this encounter (statuses as of 08/21/2020) Medications Medication Sig Dispensed Refills Start Date End Date Status atorvastatin 80 mg Take 1 tablet by 30 tablet 3 09/03/2019 Active tabletIndications: S/P mouth at CABG (coronary artery bedtime. bypass graft), Coronary artery disease involving craig coronary artery of craig heart with angina pectoris LORazepam 2 mg [...] ONCE Coronary artery disease DAILY NEEDED involving craig FOR LEG SWELLING coronary artery of AND BODY WEIGHT craig heart with angina pectoris, NSTEMI (non-ST elevated [...] DAILY Coronary artery disease WITH LASIX involving craig NEEDED coronary artery of craig heart with angina pectoris, NSTEMI (non-ST elevated myocardial infarction) triazolam 0.25 mg tablet Take 0.25 mg by 0 Active mouth at bedtime as needed. risperiDONE (RISPERDAL) Take 1 mg by 0 Active 1 mg tablet mouth 2 (two) times daily. buPROPion 200 mg 12 hr Take 200 mg by 0 Active tablet mouth 2 (two) times daily. carvediloL 12.5 mg Take 12.5 mg by 0 Active tablet mouth 2 (two) times daily with meals. apixaban (ELIQUIS ORAL) Take by mouth. 0 Active lisinopriL 20 mg tablet Take 20 mg by 0 Active mouth daily. methocarbamoL 750 mg Take 750 mg by 0 Active tablet mouth 4 (four) times daily. SERTraline 100 mg tablet Take 100 mg by 0 Active mouth daily. topiramate 25 mg Cp24 Take by mouth. 0 Active clopidogreL (PLAVIX) 75 Take 75 mg by 0 Active mg tablet mouth daily. METOPROLOL TARTRATE ORAL Take by mouth. 0 Active furosemide 40 mg tablet Take 40 mg by 0 Active mouth every 24 (twenty-four) hours as needed (edema). zolpidem 10 mg tablet Take 10 mg by 0 Active mouth at bedtime as needed for Insomnia. hydrOXYzine 50 mg tablet Take 50 mg by 0 Active mouth. atorvastatin 40 mg Take 40 mg by 0 Active tablet mouth at bedtime. nitroglycerin [address] 0.4 mg 0 Active sublingual tablet under the tongue every 5 (five) minutes as needed for Chest pain. fidaxomicin 200 mg Take 1 tablet by 20 tablet 0 07/12/2020 Active tabletIndications: C. mouth 2 (two) difficile colitis times daily. clopidogreL (PLAVIX) 75 Take 75 mg by [...] Coronary artery disease (eight) hours as involving craig needed for coronary artery of Nausea and craig heart without Vomiting (N/V) angina pectoris, for up to 30 Atypical chest pain, S/P doses. CABG (coronary artery bypass graft), Essential hypertension, Chronic diastolic heart failure, Dyslipidemia, History of CVA (cerebrovascular accident), BRO (dyspnea on exertion), Thrombocytopenia documented as of this encounter (statuses as of 08/21/2020) Active Problems Problem Noted Date GIB (gastrointestinal bleeding) 07/11/2020 Generalized abdominal pain 07/11/2020 Weakness 12/25/2019 Pericardial effusion 10/25/2019 Arm DVT (deep venous thromboembolism), acute, left 04/2020 Chest pain 10/24/2019 NSTEMI (non-ST elevated myocardial infarction) 020 Left sided numbness 09/03/2019 S/P CABG (coronary artery bypass graft) 06/30/2019 Leukocytosis 06/16/2019 Tachycardia 06/15/2019 Coronary artery disease involving craig coronary herson ry of craig heart 06/08/2019 with angina pectoris Overview: Added automatically from request for ilan de la cruz [id number] Sepsis 05/03/2019 Obesity (BMI 30-39.9) 05/03/2019 Other [...] as of this encounter (statuses as of 08/21/2020) Immunizations Name Administration Dates Next Due Influenza Virus Vaccine Quad .5 mL IM 6+ MO 10/18/2019, 11/17 Influenza Virus Vaccine Recomb Quad IM, Preserv and 07/12/20 20 ABX Free 18-64 YRS Pneumococcal Polysaccharide, PPSV23 (PNEUMOVAX) 12/10/2018 documented as [...] been in contact with No / Unsure 08/21/2020 4:03 PM TRIAL ATTORNEY someone who was confirmed or suspected to have Coronavirus / COVID-19? documented as of this encounter Last Filed Vital Signs Not on filedocumented in this encounter Progress Notes Annette Treadwell RN - 08/21/2020 4:30 PM [facility] 30-day event monitor applied to patient. Wear and care explained. Patient verbalized understanding. Patient given instruction on how to return monitor on 09/20/20 to [employer]. L ATTORNEY documented in this encounter Plan of Treatment Date Type Specialty Care Team Description 09/21/2020 Office Visit Cardiology Ludwig Escobar MD [address] [place] [phone] Health Maintenance Due Date Last Done Comments DTaP,Tdap,and Td Vaccines (1 - Tdap) 1983 PAP SMEAR 1985 Breast Cancer Screening (MAMMOGRAM) 2004 COLON CANCER SCREENING ANNUAL 2014 FIT/FOBT COLON CANCER SCREENING FIT DNA EVERY 2014 3 YEARS COLON CANCER SCREENING SIGMOIDOSCOPY 2014 EVERY 5 YEARS COLONOSCOPY 2014 Colorectal Cancer Screening 2014 Zoster Recombinant Vaccine (SHINGRIX) 2014 (1 of 2) LUNG CANCER SCREEN: Recommended for 2019 age 55-80 with 30 + pack year history Depression Screening 06/27/2021 06/27/2020 PNEUMOCOCCAL 0-64 YEARS COMBINED Completed 12/10/2018 SERIES HEPATITIS C (HCV) SCREEN Completed 10/11/2019 INFLUENZA VACCINE Completed 07/12/2020, 10/18/2019, 12/10/2018 documented as of this encounter Implants Implanted Type Area 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 Motor Specialist Device Shelf Expiration Model / Identifier Date Serial / Lot Screw SCREW Right: Ankle Screw SCREW Left: Foot documented as of this encounter Results Not on filedocumented in this encounter Visit Diagnoses Diagnosis Coronary artery disease involving craig coronary artery of craig heart without angina pectoris Atypical chest pain Other chest pain S/P [...] Thrombocytopenia Thrombocytopenia, unspecified documented in this encounter Additional Health Concerns Infection Onset Date Last Indicated Resolved Time Extended Contact- CDiff 07/11/2020 07/11/2020 documented as of this encounter Insurance Payer Benefit Plan / Subscriber ID Effective Phone Address T ype Group Dates KARMA PARADA [id number] 2016-[place] [address] [place] [address] MANAGED MEDICAID [place] (Work) documented as of this encounter Advance Directives Name Relationship Healthcare Agent Communication Relationship Swapnil Whyte Spouse Health Care Agent
--- OUTSIDE RECORDS SUMMARY | 2020-09-13 10:45 | XMS REPORT | Summary of Care ---
:1965 Author Organization [facility] Address [address] [place] [id number] Care Team Providers Name Role Phone Pcp, Patient Does Not Have A Primary Care Provider +[id number] 0-0000 Pato Burton Unavailable Prezas Unavailable Reason for Referral (Routine) Status Reason Specialty Diagnoses / Referred By Referred To Procedures Contact Contact New Request Cardiology Diagnoses Coronary artery disease involving [place] coronary artery of [place] heart without angina pectoris Atypical chest pain S/P CABG (coronary artery bypass graft) Essential hypertension Chronic diastolic heart failure Dyslipidemia Escobar, Sendil History of CVA ( cerebrovascular accident) BRO (dyspnea on exertion) Jimmie Cannon MD Procedures CARDIO LOOP MONITOR [address] [place] [address] Reason for Visit Reason Comments Follow-up CAD/Cath Encounter Details Date Type Department Care Team Description 07/20/2020 Office Visit [facility] Escobar, Sendil Coronary herson ry disease involving [place] coronary artery of [place] heart without angina pectoris (Primary Dx); Cardiology- Jairo Cannon MD Atypical chest pain; [address] S/P CABG (coronary artery bypass graft); Drive, [address] Essential hypertension; [place], [place] Chronic diastol ic heart failure; [phone] Dyslipidemia; [phone] History of CVA (cerebrovascular accident ); [phone] BRO (dyspnea on exertion); (Fax) Thrombocytopeni a [...] as of this encounter (statuses as of 08/07/2020) Medications Medication Sig Dispensed Refills Start End Date Status Date atorvastatin 80 mg Take 1 tablet 30 tablet 3 Active tabletIndications: by mouth at 0 S/P CABG (coronary bedtime. artery bypass graft), Coronary artery disease involving [place] coronary artery of [place] heart with angina pectoris LORazepam 2 mg [...] artery DAILY NEEDED disease involving FOR LEG [place] coronary SWELLING AND artery of [place] BODY WEIGHT heart with angina pectoris, NSTEMI [...] Coronary artery WITH LASIX disease involving NEEDED [place] coronary artery of [place] heart with angina pectoris, NSTEMI (non-ST elevated [...] (eight) hours disease involving as needed for [place] coronary Nausea and artery of [place] Vomiting (N/V) heart without angina for up [...] as of this encounter (statuses as of 08/07/2020) Active Problems Problem Noted Date GIB (gastrointestinal bleeding) 07/11/2020 Generalized abdominal pain 07/11/2020 Weakness 12/25/2019 Pericardial effusion 10/25/2019 Arm DVT (deep venous thromboembolism), acute, left 04/2020 Chest pain 10/24/2019 NSTEMI (non-ST elevated myocardial infarction) 020 Left sided numbness 09/03/2019 S/P CABG (coronary artery bypass graft) 06/30/2019 Leukocytosis 06/16/2019 Tachycardia 06/15/2019 Coronary artery disease involving [place] coronary herson ry of [place] heart 06/08/2019 with angina pectoris Overview: Added automatically from request for ilan de la cruz [id number] Sepsis 05/03/2019 Obesity (BMI 30-39.9) 05/03/2019 Other [...] as of this encounter (statuses as of 08/07/2020) Immunizations Name Administration Dates Next Due Influenza [...] with No / Unsure 07/20/2020 1:14 PM BLEACH BOILER FILLER someone who was confirmed or suspected to have Coronavirus / COVID-19? documented as of this encounter Last Filed Vital Signs Vital Sign Reading Time Taken Comments Blood Pressure 133/92 07/20/2020 1:29 PM BLEACH BOILER FILLER Pulse 87 07/20/2020 1:29 PM BLEACH BOILER FILLER Temperature - - Respiratory Rate 19 07/20/2020 1:29 PM BLEACH BOILER FILLER Oxygen Saturation 99% 07/20/2020 1:29 PM BLEACH BOILER FILLER Inhaled Oxygen Concentration - - Weight 67.7 kg (149 lb 3.2 oz) 07/20/2020 1:29 PM BLEACH BOILER FILLER Height 160 cm (5' 3") 07/20/2020 1:29 PM BLEACH BOILER FILLER Body Mass Index 26.43 07/20/2020 1:29 PM BLEACH BOILER FILLER documented in this encounter Progress Notes Ludwgi Escobar MD - 07/20/2020 10:[address] [facility] Cardiology Consult Note Patient: Delilah [...] She reports getting admitted in 05/2020 with [place] in [facility].Underwent coronary angiogram and also reports having a stent placement. No details available. Formsigned to get the discharge summary/angiogram report/echo 06/2020 she was admitted in [place] again for abdominal pain diarrhea noted to have C. difficile colitis. During the time also she was noted to have mild elevated troponins at 0.6. No EKG changes and echocardiogram was preserved. Attributed to type II [place]. Cardiology was consulted during that admission. She [...] started on colchicine. 06/2019: had CABG On 2019: noted to have CVA/slurred speech and left facial drop. Was sent to [facility]. On 11/2018: Admitted for new onset leg edema, dyspnea on exertion and orthopnea. She was in [facility] a few times for various issues [...] obstructive pulmonary disease) Coronary artery disease involving [place] coronary artery of [place] heart with angina pectoris 06/08/2019 Depression Encephalitis 2015 Essential hypertension, benign Former smoker History of CVA (cerebrovascular accident) left side numbness, L sided facial droop Hyperlipidemia Morbid obesity Posttraumatic stress disorder Right ovarian cyst Seizures 2015 encephalitis Unspecified migraine Past Surgical History: Procedure Laterality Date ANKLE ARTHRODESIS Right 1997 APPENDECTOMY CHOLECYSTECTOMY CORONARY ARTERY BYPASS GRAFT N/A 06/30/2019 Surgeon: Noah Bolton Jr., MD; Location: [facility] FOOT ORIF (SHX) Bilateral HYSTERECTOMY Family History [...] file Gets together: Not on file Attends anabaptism service: Not on file Active member of [...] on file Social History Narrative Lives in [place] with and Kids ALLERGIES Allergies Allergen Reactions [...] (H) ASSESSMENT/PLAN 1. Coronary artery disease involving [place] coronary artery of [place] heart without angina pectorisCBC WITH DIFF COMP. METABOLIC PANEL (44028) LIPID PANEL (09185)(TOTAL CHOLESTEROL, TRIGLYCERIDES, HDL) N-TERMINAL PRO-BNP CARDIO LOOP MONITOR proMETHazine 25 mg tablet 2. Atypical chest pain CBC WITH DIFF COMP. METABOLIC PANEL (92145) LIPID PANEL (14977)(TOTAL CHOLESTEROL, TRIGLYCERIDES, HDL) N-TERMINAL PRO-BNP CARDIO LOOP MONITOR proMETHazine 25 mg tablet 3. S/P CABG (coronary artery bypass graft) CBC WITH DIFF COMP. METABOLIC PANEL (16740) LIPID PANEL (57487)(TOTAL CHOLESTEROL, TRIGLYCERIDES, HDL) N-TERMINAL PRO-BNP CARDIO LOOP MONITOR proMETHazine 25 mg tablet 4. Essential hypertension CBC WITH DIFF COMP. METABOLIC PANEL (91395) LIPID PANEL (61977)(TOTAL CHOLESTEROL, TRIGLYCERIDES, HDL) N-TERMINAL PRO-BNP CARDIO LOOP MONITOR proMETHazine 25 mg tablet 5. Chronic diastolic heart failure CBC WITH DIFF COMP. METABOLIC PANEL (36324) LIPID PANEL (56817)(TOTAL CHOLESTEROL, TRIGLYCERIDES, HDL) N-TERMINAL PRO-BNP CARDIO LOOP MONITOR proMETHazine 25 mg tablet 6. Dyslipidemia CBC WITH DIFF COMP. METABOLIC PANEL (10296) LIPID PANEL (33165)(TOTAL CHOLESTEROL, TRIGLYCERIDES, HDL) N-TERMINAL PRO-BNP CARDIO LOOP MONITOR proMETHazine 25 mg tablet 7. History of CVA (cerebrovascular accident) CBC WITH DIFF COMP. METABOLIC PANEL (38160) LIPID PANEL (72065)(TOTAL CHOLESTEROL, TRIGLYCERIDES, HDL) N-TERMINAL PRO-BNP CARDIO LOOP MONITOR proMETHazine 25 mg tablet 8. BRO (dyspnea on exertion) CBC WITH DIFF COMP. METABOLIC PANEL (73646) LIPID PANEL (67350)(TOTAL CHOLESTEROL, TRIGLYCERIDES, HDL) N-TERMINAL PRO-BNP CARDIO LOOP MONITOR proMETHazine 25 mg tablet 9. Thrombocytopenia CBC WITH DIFF COMP. METABOLIC PANEL (82221) LIPID PANEL (23017)(TOTAL CHOLESTEROL, TRIGLYCERIDES, HDL) N-TERMINAL PRO-BNP CARDIO LOOP MONITOR proMETHazine 25 mg tablet Her medical records from in which her recent admission [place] was reviewed from 06/2020. The cardiology consult [...] C. difficile colitis. Attributed to type II [place]. CAD s/p CABG 06/2019: Per patient she had stent placement done [facility] 05/2020 secondary to [place] NM Stress test 09/2019: negative. Echo 06/2020: Preserved EF. On Lopresor 50 mg BiD/lipitor 80 mg daily/SL nitro PRN Since Eliquis is being discontinued, recommend restarting aspirin 81 daily and continued Plavix 75 gdaily We will get records from [facility] regarding the admission in May 2020. Form signed. Recommended to DC colchicine completely. Small Possible hemorraghic pericardial effusion by CT in pericardial effusion: Echo recently done 06/2020 was reviewed No pericardial fusion noted. DVT LUE 10/15/2019: Resolved by vascular study done on 06/2020: Recommend to DC Eliquis No clear-cut evidence of A. fib noted so far. We also reviewed Dr Gardiner (dairy specialist) notes from 05/2013. Hypercoagulable work-up has been [...] August 2019 H/o stroke: Follow up with [facility] neurology. Continue ASA/Plavix/lipitor. We will [...] Procedures CBC WITH DIFF COMP. METABOLIC PANEL (54986) LIPID PANEL (73165)(TOTAL CHOLESTEROL, TRIGLYCERIDES, HDL) N-TERMINAL PRO-BNP Requested Prescriptions [...] feel free to call our office at [phone]. I would be happy to be of further assistance for Delilah Whyte wellbeing. Rafy Escobar MD Theatre Manager, Division of Cardiology [facility] Addendum 07/31/2020 CT abdomen pelvis space 07/10/2020 shows moderate right-sided colitis NT proBNP May 27, 2020 191 No cath/echo report was received. Rafy Escobar MD Theatre Manager, Division of Cardiology [facility] Addendum 08/07/2020 Reports from [facility] reviewed. Cardiac angiogram dated 01/21/2020 was reviewed. Indication for cardiac angiogram non-ST elevation [place] Done by Dr. Fatima PCI of severe ostial RCA stenosis done using 3 to 16 mm Synergy drug-eluting stent overlapped distally using 3 into 6 mm Synergy drug-eluting stent for edge dissection RAJINDER-3 flow before and after PCI. 0% residual stenosis length of lesion was 10 mm. Mild to moderate tibial disease Likely occluded ostial LAD with patent MENENDEZ to mid LAD that fills back retrograde all the way to thestenosis No significant disease noted in the left circumflex Rafy Escobar MD Theatre Manager, Division of Cardiology [facility] Transitional Care Management: [id number] Visit 07/20/2020 Delilah Whyte is a 54 year old female that was admitted on 12/24/[address] [facility] AT [address]. She was discharged on 12/25/19 with [...] obstructive pulmonary disease) Coronary artery disease involving [place] coronary artery of [place] heart with angina pectoris 06/08/2019 Depression Encephalitis 2014 Essential hypertension, benign Former smoker History of CVA (cerebrovascular accident) left side numbness, L sided facial droop Hyperlipidemia Morbid obesity Posttraumatic stress disorder Right ovarian cyst Seizures 2014 encephalitis Unspecified migraine Past Surgical History: Procedure Laterality Date ANKLE ARTHRODESIS Right 1996 APPENDECTOMY CHOLECYSTECTOMY CORONARY ARTERY BYPASS GRAFT N/A 06/30/2019 Surgeon: Noah Bolton Jr., MD; Location: [facility] ORIF (SHX) Bilateral HYSTERECTOMY Social History Socioeconomic [...] file Gets together: Not on file Attends anabaptism service: Not on file Active member of [...] on file Social History Narrative Lives in [place] with and Kids Family History Problem Relation [...] Visit Cardiology Ludwig Escobar MD [address] [facility] [place] [phone] Name Type Priority Associated Diagnoses Order S chedule CBC WITH DIFF LAB Routine Coronary artery 1 Occurrenc es disease involving starting 1 09/20/2019 [place] coronary until 2020 artery of [place] heart without angina pectoris Atypical chest p ain S/P CABG (coronary artery bypass gr aft) Essential hypertension Chronic diastolic heart failure Dyslipidemia History of CVA (cerebrovascular accident) BRO (dyspnea on exertion) Thrombocytopenia COMP. METABOLIC LAB Routine Coronary artery 1 Occurre nces PANEL (19405) disease involving starting 07/20/2020 [place] coronary until 2020 artery of [place] heart without angina pectoris Atypical chest p ain S/P CABG (coronary artery bypass gr aft) Essential hypertension Chronic diastolic heart failure Dyslipidemia History of CVA (cerebrovascular accident) BRO (dyspnea on exertion) Thrombocytopenia LIPID PANEL LAB Routine Coronary artery 1 Occurrence s (39714)(TOTAL disease involving starting 07/20/2020 CHOLESTEROL, [place] coronary until 2020 TRIGLYCERIDES, HDL) artery of [place] heart without angina pectoris Atypical chest p ain S/P CABG (coronary artery bypass gr aft) Essential hypertension Chronic diastolic heart failure Dyslipidemia History of CVA (cerebrovascular accident) BRO (dyspnea on exertion) Thrombocytopenia N-TERMINAL PRO-BNP LAB Routine Coronary artery 1 Occu rrences disease involving starting 1 09/20/2019 [place] coronary until 2020 artery of [place] heart without angina pectoris Atypical chest p ain S/P CABG (coronary artery bypass gr aft) Essential hypertension Chronic diastolic heart failure Dyslipidemia History of CVA (cerebrovascular accident) BRO (dyspnea on exertion) Thrombocytopenia CARDIO LOOP MONITOR HEART STATION Routine Coronary artery 1 Oc currences disease involving starting 1 09/20/2019 [place] coronary until 2020 artery of [place] heart without angina pectoris Atypical chest p [...] of this encounter Implants Implanted Type Area Blocker And Polisher Gold Wheel Device Shelf Expiration Model / Identifier Date Serial / Lot Screw SCREW Right: Ankle Screw SCREW Left: Foot documented as of this encounter Results Not on filedocumented in this encounter Visit Diagnoses Diagnosis Coronary artery disease involving [place] coronary artery of [place] heart without angina pectoris - Primary Atypical [...] Address T ype Group Dates KARMA PARADA [id number] 2016-Benjy P Mike [address]UT[address] [facility] [place] [id number] MANAGED MED[place]ID [place] (Work) documented as of this encounter Advance Directives Name Relationship Healthcare Agent Communication Relationship Swapnil Whyte Spouse Health Care Agent
--- OUTSIDE RECORDS SUMMARY | 2020-09-13 10:46 | XMS REPORT | Summary of Care ---
:1965 Author Organization [facility] - Health Address [address] [place] [address] Care Team Providers Name Role Phone Pcp, Patient Does Not Have A Primary Care Provider +1-000-00 0-0000 Pato Burton Unavailable Prezas Unavailable Encounter Details Date Type Department Care Team Description 08/21/2020 Orders Only [facility] Doctor Unassigned, No [address] [place] [address] [address] [place] [address] Allergies Active Allergy Reactions Severity Noted Date [...] as of this encounter (statuses as of 08/24/2020) Medications Medication Sig Dispensed Refills Start Date End Date Status atorvastatin 80 mg Take 1 tablet by 30 tablet 3 09/03/2019 Active tabletIndications: S/P mouth at CABG (coronary artery bedtime. bypass graft), Coronary artery disease involving [place] coronary artery of [place] heart with angina pectoris LORazepam 2 mg [...] ONCE Coronary artery disease DAILY NEEDED involving [place] FOR LEG SWELLING coronary artery of AND BODY WEIGHT [place] heart with angina pectoris, NSTEMI (non-ST elevated [...] DAILY Coronary artery disease WITH LASIX involving [place] NEEDED coronary artery of [place] heart with angina pectoris, NSTEMI (non-ST elevated [...] Coronary artery disease (eight) hours as involving [place] needed for coronary artery of Nausea and [place] heart without Vomiting (N/V) angina pectoris, for up to 30 Atypical chest pain, S/P doses. CABG (coronary artery bypass graft), Essential hypertension, Chronic diastolic heart failure, Dyslipidemia, History of CVA (cerebrovascular accident), BRO (dyspnea on exertion), Thrombocytopenia documented as of this encounter (statuses as of 08/24/2020) Active Problems Problem Noted Date GIB (gastrointestinal bleeding) 07/11/2020 Generalized abdominal pain 07/11/2020 Weakness 12/25/2019 Pericardial effusion 10/25/2019 Arm DVT (deep venous thromboembolism), acute, left 04/2020 Chest pain 10/24/2019 NSTEMI (non-ST elevated myocardial infarction) 02/23/2 020 Left sided numbness 09/03/2019 S/P CABG (coronary artery bypass graft) 06/30/2019 Leukocytosis 06/16/2019 Tachycardia 06/15/2019 Coronary artery disease involving [place] coronary herson ry of [place] heart 06/08/2019 with angina pectoris Overview: Added automatically from request for ilan de la cruz [id number] Sepsis 05/03/2019 Obesity (BMI 30-39.9) 05/03/2019 Other [...] as of this encounter (statuses as of 08/24/2020) Immunizations Name Administration Dates Next Due Influenza [...] with No / Unsure 08/21/2020 4:03 PM 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 documented as of this encounter Last Filed Vital Signs Not on filedocumented in this encounter Plan of Treatment Date Type Specialty Care Team Description 09/21/2020 Office Visit Cardiology Ludwig Escobar MD [address] [place] [phone] Health Maintenance Due Date Last Done [...] of this encounter Implants Implanted Type Area Him Assistant Device Shelf Expiration Model / Identifier Date Serial / Lot Screw SCREW Right: Ankle Screw SCREW Left: Foot documented as of this encounter Procedures Procedure Name Priority Date/Time Associated Diagnosis Comme nts CARDIOLOGY EVENT MONITOR Routine 08/21/2020 12:01 AM LICENSED PRACTICAL VOCATIONAL NURSE documented in this encounter Results Not on filedocumented in this encounter Additional Health Concerns Infection Onset Date Last Indicated Resolved Time Extended Contact- CDiff 07/11/2020 07/11/2020 documented as of this encounter Insurance Payer Benefit Plan / Subscriber ID Effective Phone Address [facility] Group Dates KARMA GRINA [id number] 2014-[address] [employer] [place] [id number] [place]ED MED[place]ID [place] KARMA PARADA [id number] 2015-[address] [place] [place] [phone] [place]ED [place]ID [place] KARMA PARADA [id number] 2015-[place] [address] [place] [phone] [place] PARADA [id number] 2020-Pres [address] Medic aid [place] [id number] MANAGED MED[place]ID [place] documented as of this encounter Advance Directives Name Relationship Healthcare Agent Communication Relationship Swapnil Whyte Spouse Health Care Agent
--- OUTSIDE RECORDS SUMMARY | 2020-09-13 10:47 | XMS REPORT | Summary of Care ---
:1965 Author Organization [facility] Address [address] [place] [address] Care Team Providers Name Role Phone Pcp, Patient Does Not Have A Primary Care Provider +1-000-00 0-0000 Pato Burton Unavailable Prezas Unavailable Reason for Referral (Routine) Status Reason Specialty Diagnoses / Procedures Referred By Silvia edwards To Contact Contact New Request Cardiology Diagnoses Atrial flutter, unspecified type Ludwig Escobar Procedures Consult Cardiac Electrophysiology MD [place] [address] [facility] [address] [address] Reason for Visit Reason Comments Results Encounter Details Date Type Department Care Team Description 09/09/2020 Telephone [facility] Cardiology- Ludwig Escobar MD Results [place] [address] [facility], [address] [facility] [address] [place] [address] [place] [address] [phone] Allergies Active Allergy Reactions Severity Noted Date [...] as of this encounter (statuses as of 09/11/2020) Medications Medication Sig Dispensed Refills Start Date End Date Status atorvastatin 80 mg Take 1 tablet by 30 tablet 3 09/03/2019 Active tabletIndications: S/P mouth at CABG (coronary artery bedtime. bypass graft), Coronary artery disease involving [place] coronary artery of [place] heart with angina pectoris LORazepam 2 mg [...] ONCE Coronary artery disease DAILY NEEDED involving [place] FOR LEG SWELLING coronary artery of AND BODY WEIGHT [place] heart with angina pectoris, NSTEMI (non-ST elevated [...] DAILY Coronary artery disease WITH LASIX involving [place] NEEDED coronary artery of [place] heart with angina pectoris, NSTEMI (non-ST elevated [...] mg Cp24 Take by mouth. 0 Active METOPROLOL TARTRATE ORAL Take by mouth. 0 Active furosemide 40 mg tablet Take 40 mg by 0 Active mouth every 24 (twenty-four) hours as needed (edema). zolpidem 10 mg tablet Take 10 mg by 0 Active mouth at bedtime as needed for Insomnia. hydrOXYzine 50 mg tablet Take 50 mg by 0 Active mouth. nitroglycerin 0.[address] 0.4 mg 0 [...] Coronary artery disease (eight) hours as involving [place] needed for coronary artery of Nausea and [place] heart without Vomiting (N/V) angina pectoris, for up to 30 Atypical chest pain, S/P doses. CABG (coronary artery bypass graft), Essential hypertension, Chronic diastolic heart failure, Dyslipidemia, History of CVA (cerebrovascular accident), BRO (dyspnea on exertion), Thrombocytopenia clopidogreL (PLAVIX) 75 Take 1 tablet by 90 tablet 1 1 Active mg tablet mouth daily. atorvastatin 40 mg Take 1 tablet by 90 tablet 1 08/25/2020 Active tablet mouth at bedtime. documented as of this encounter (statuses as of 09/11/2020) Active Problems Problem Noted Date GIB (gastrointestinal bleeding) 07/11/2020 Generalized abdominal pain 07/11/2020 Weakness 12/25/2019 Pericardial effusion 10/25/2019 Arm DVT (deep venous thromboembolism), acute, left 04/2020 Chest pain 10/24/2019 NSTEMI (non-ST elevated myocardial infarction) 020 Left sided numbness 09/03/2019 S/P CABG (coronary artery bypass graft) 06/30/2019 Leukocytosis 06/16/2019 Tachycardia 06/15/2019 Coronary artery disease involving [place] coronary herson ry of [place] heart 06/08/2019 with angina pectoris Overview: Added automatically from request for ilan dorothy [id number] Sepsis 05/03/2019 Obesity (BMI 30-39.9) 05/03/2019 Other [...] as of this encounter (statuses as of 09/11/2020) Immunizations Name Administration Dates Next Due Influenza [...] with No / Unsure 08/21/2020 4:03 PM EXECUTIVE ADVISOR someone who was confirmed or suspected to have Coronavirus / COVID-19? documented as of this encounter Last Filed Vital Signs Not on filedocumented in this encounter Miscellaneous Notes Telephone Encounter - Annette Treadwell RN - 09/11/2020 4:17 PM CSTPatient notified of results/recommendations, understanding was verbalized via teach back. Patient states she will get the labs completed. However, she wants to know if she has to stop takingthe plavix once she starts eliquis. Advised her that I believe she will have to but I will clarify with the doctor as he didn't say to stop it. Also she wants to inform the doctor that while she was wearing the heart monitor, she had chest painand took two nitros and the pain resolved. She just wanted to be sure that the doctor was aware of that. Advised patient of ER warning signs and when to seek medical attention when having chest pain. Verbalized understanding. elephone Encounter - Ludwig Escobar MD - 09/09/2020 6:11 PM CSTEvent monitor strips reviewed. She has evidence of underlying paroxysmal atrial flutter. Recommend to start Eliquis 5 mg twice daily. Prior to starting would recommend getting CBC/CMP/lipid panel. She has evidence of ongoing thrombocytopenia from before. Please also make follow-up with the EP. Orders placed. UTIVE ADVISOR documented in this encounter Plan of Treatment Date Type Specialty Care Team Description 09/21/2020 Office Visit Cardiology Ludwig Escobar MD [address] [facility] [address] [phone] 11/07/2020 Office Visit Cardiology Manuel Choi MD [address] [place] [phone] Name Type Priority Associated Diagnoses Order S chedule CBC WITH DIFF LAB Routine Atrial flutter, 1 Occurrenc es starting unspecified type 09/09/2020 until 09/15/2021 COMP. METABOLIC PANEL LAB Routine Atrial flutter, 1 O ccurrences starting (75668) unspecified type 09/09/2020 until 09/10/2021 LIPID PANEL LAB Routine Atrial flutter, 1 Occurrence s starting (96567)(TOTAL unspecified type 09/09/2020 until CHOLESTEROL, 09/08/2021 TRIGLYCERIDES, HDL) N-TERMINAL PRO-BNP LAB Routine Atrial flutter, 1 Occu rrences starting unspecified type 09/09/2020 until 09/09/2021 CBC W/O DIFF LAB Routine Atrial flutter, Expected: , unspecified type Expires: LIPID PANEL LAB Routine Atrial flutter, Expected: , (61101)(TOTAL unspecified type Expires: 0 09/11/2021 CHOLESTEROL, TRIGLYCERIDES, HDL) COMP. METABOLIC PANEL LAB Routine Atrial flutter, Exp ected: 09/11/2020, (39556) unspecified type Expires: Health Maintenance Due Date Last Done Comments [...] of this encounter Implants Implanted Type Area Morning Babysitter Device Shelf Expiration Model / Identifier Date Serial / Lot Screw SCREW Right: Ankle Screw SCREW Left: Foot documented as of this encounter Results Not on filedocumented in this encounter Visit Diagnoses Diagnosis Atrial flutter, unspecified type - Prima ry documented in this encounter Additional Health Concerns Infection Onset Date Last Indicated Resolved Time Extended Contact- CDiff 07/11/2020 07/11/2020 documented as of this encounter Insurance Payer Benefit Plan / Subscriber ID Effective Phone Address T ype Group Dates KARMA PARADA [id number] 2014-[address] [place] [address] [place] [id number] [place] KARMA PARADA [id number] 2015-Prese [place] [id number] [place] KARMA PARADA [id number] 2015-[place] [id number] [place] KARMA PARADA [id number] 2020-Pres [address] O BOX Medic aid [place] [id number] MANA[place]ED MED[place]ID [place] documented as of this encounter Advance Directives Name Relationship Healthcare Agent Communication Relationship Swapnil Whyte Spouse Health Care Agent
--- OUTSIDE RECORDS SUMMARY | 2020-09-13 10:47 | XMS REPORT | Summary of Care ---
:1965 Author Organization [facility] Address [address] [place] [address] Care Team Providers Name Role Phone Pcp, Patient Does Not Have A Primary Care Provider +1-000-00 0-0000 Pato Burton Unavailable Prezas Unavailable Reason for Visit Reason Comments Refill Request Encounter Details Date Type Department Care Team Description 08/25/2020 Refill [facility] Cardiology- Ludwig Escobar MD Refill Request [address], [address] [facility] [address] [place] [address] [place] [address] [phone] Allergies Active Allergy Reactions Severity Noted Date [...] as of this encounter (statuses as of 08/25/2020) Medications Medication Sig Dispensed Refills Start End Date Status Date atorvastatin 80 mg Take 1 tablet 30 tablet 3 Active tabletIndications: by mouth at 0 S/P CABG (coronary bedtime. artery bypass graft), Coronary artery disease involving [place] coronary artery of [place] heart with angina pectoris LORazepam 2 mg tablet Take 1 tablet 0 Active by mouth 2 0 (two) times daily. SERTraline 100 mg Take 1 tablet 0 Active tablet by mouth 0 daily. buPROPion SR 100 mg Take 1 [...] times daily. FUROSEMIDE 40 mg TAKE ONE 30 tablet 11 Act jhony tabletIndications: TABLET BY 0 Coronary artery MOUTH ONCE disease involving DAILY [place] coronary NEEDED FOR artery of [place] LEG SWELLING heart with angina AND BODY pectoris, NSTEMI WEIGHT (non-ST elevated myocardial infarction) METOPROLOL TARTRATE TAKE ONE 60 tablet 11 Active 50 mg TABLET BY 0 tabletIndications: MOUTH TWICE A NSTEMI (non-ST DAY elevated myocardial infarction), Bacteremia due to Enterobacter species hydrOXYzine 50 mg Take 50 mg by 0 Active tablet mouth 3 (three) times daily. KLOR-CON M20 20 mEq TAKE ONE 30 tablet 1 Active tabletIndications: TABLET BY 0 Coronary artery MOUTH DAILY disease involving WITH LASIX [place] coronary NEEDED artery of [place] heart with angina pectoris, NSTEMI (non-ST elevated myocardial infarction) triazolam 0.25 mg Take 0.25 mg 0 Active tablet by mouth at bedtime as needed. risperiDONE Take 1 mg by 0 Activ e (RISPERDAL) 1 mg mouth 2 (two) tablet times daily. buPROPion 200 mg 12 Take 200 mg 0 Active hr tablet by mouth 2 (two) times daily. carvediloL 12.5 mg Take 12.5 mg 0 Active tablet by mouth 2 (two) times daily with meals. apixaban (ELIQUIS Take by 0 Ac tive ORAL) mouth. lisinopriL 20 mg Take 20 mg by 0 Active tablet mouth daily. methocarbamoL 750 mg Take 750 mg 0 Active tablet by mouth 4 (four) times daily. SERTraline 100 mg Take 100 mg 0 Active tablet by mouth daily. topiramate 25 mg Cp24 Take by 0 Active mouth. METOPROLOL TARTRATE Take by 0 Active ORAL mouth. furosemide 40 mg Take 40 mg by 0 Active tablet mouth every 24 (twenty-four) hours as needed (edema). zolpidem 10 mg tablet Take 10 mg by 0 Active mouth at bedtime as needed for Insomnia. hydrOXYzine 50 mg Take 50 mg by 0 Active tablet mouth. nitroglycerin [address] 0.4 mg 0 Active sublingual tablet under the tongue every 5 (five) minutes as needed for Chest pain. fidaxomicin 200 mg Take 1 tablet 20 tablet 0 Active tabletIndications: C. by mouth 2 0 difficile colitis (two) times daily. clopidogreL (PLAVIX) Take 75 mg by 0 Active 75 mg tablet mouth daily. aspirin 81 mg EC Take 81 mg by 0 Active tablet mouth daily. nitroglycerin [address] 0.4 mg 0 Active sublingual tablet under the tongue every 5 (five) minutes as needed for Chest pain. proMETHazine 25 mg Take 1 tablet 30 tablet 0 Active tabletIndications: by mouth 0 Coronary artery every 8 disease involving (eight) hours [place] coronary as needed for artery of [place] Nausea and heart without angina Vomiting pectoris, Atypical (N/V) for up chest pain, S/P CABG to 30 doses. (coronary artery bypass graft), Essential hypertension, Chronic diastolic heart failure, Dyslipidemia, History of CVA (cerebrovascular accident), BRO (dyspnea on exertion), Thrombocytopenia clopidogreL (PLAVIX) Take 1 tablet 90 tablet 1 Active 75 mg tablet by mouth 1 daily. atorvastatin 40 mg Take 1 tablet 90 tablet 1 Active tablet by mouth at 1 bedtime. clopidogreL (PLAVIX) Take 75 mg by 0 08/25 Discontinued 75 mg tablet mouth daily. 21 (Reo rder) atorvastatin 40 mg Take 40 mg by 0 0 Discontinued tablet mouth at 21 (Reorder) bedtime. documented as of this encounter (statuses as of 08/25/2020) Active Problems Problem Noted Date GIB (gastrointestinal bleeding) 07/11/2020 Generalized abdominal pain 07/11/2020 Weakness 12/25/2019 Pericardial effusion 10/25/2019 Arm DVT (deep venous thromboembolism), acute, left 04/2020 Chest pain 10/24/2019 NSTEMI (non-ST elevated myocardial infarction) 020 Left sided numbness 09/03/2019 S/P CABG (coronary artery bypass graft) 06/30/2019 Leukocytosis 06/16/2019 Tachycardia 06/15/2019 Coronary artery disease involving [place] coronary herson ry of [place] heart 06/08/2019 with angina pectoris Overview: Added automatically from request for ilan de la cruz [id number] Sepsis 05/03/2019 Obesity (BMI 30-39.9) 05/03/2019 Other [...] as of this encounter (statuses as of 08/25/2020) Immunizations Name Administration Dates Next Due Influenza [...] with No / Unsure 08/21/2020 4:03 PM HIDE GRADER someone who was confirmed or suspected to have Coronavirus / COVID-19? documented as of this encounter Last Filed Vital Signs Not on filedocumented in this encounter Plan of Treatment Date Type Specialty Care Team Description 09/21/2020 Office Visit Cardiology Ludwig Escobar MD [address] [place] [address] [place] [phone] Health Maintenance Due Date Last Done [...] of this encounter Implants Implanted Type Area Certified Physician Assistant Device Shelf Expiration Model / Identifier Date Serial / Lot Screw SCREW Right: Ankle Screw SCREW Left: Foot documented as of this encounter Results Not on filedocumented in this encounter Additional Health Concerns Infection Onset Date Last Indicated Resolved Time Extended Contact- CDiff 07/11/2020 07/11/2020 documented as of this encounter Insurance Payer Benefit Plan / Subscriber ID Effective Phone Address T [facility] Group Dates KARMA GRINA [id number] 03/18/2014-Prese [place] [id number] [place] PARADA [id number] 01/16/2015-Prese [place] [id number] [place] PAR[place] PARADA [id number] 08/18/2015-Prese [place] [id number] [place] PARADA PARADA [id number] 06/18/2020-Pres P O BOX Medic aid [place] [id number] MANA[place] documented as of this encounter Advance Directives Name Relationship Healthcare Agent Communication Relationship Swapnil Whyte Spouse Health Care Agent
--- OUTSIDE RECORDS SUMMARY | 2020-09-13 10:48 | XMS REPORT | Summary of Care ---
:1965 Author Organization [facility] Address [address] [place] [address] Care Team Providers Name Role Phone Pcp, Patient Does Not Have A Primary Care Provider +1-000-00 0-0000 Pato Burton Unavailable Prezas Unavailable Reason for Referral (Routine) Status Reason Specialty Diagnoses / Procedures Referred By Silvia edwards To Contact Contact New Request Cardiology Diagnoses Atrial flutter, unspecified type Ludwig Escobar Procedures Consult Cardiac Electrophysiology MD [place] [address] [facility] [address] [address] Reason for Visit Reason Comments Results Encounter Details Date Type Department Care Team Description 09/09/2020 Telephone [facility] Cardiology- Ludwig Escobar MD Results [place] [address] [facility], Suite [facility] [address] [place] [address] [place] [address] [phone] Allergies Active Allergy Reactions Severity Noted Date [...] bedtime. bypass graft), Coronary artery disease involving skull [...] ONCE Coronary artery disease DAILY NEEDED involving [place] FOR LEG SWELLING coronary artery of AND BODY WEIGHT [place] heart with angina pectoris, NSTEMI (non-ST elevated [...] DAILY Coronary artery disease WITH LASIX involving [place] NEEDED coronary artery of [place] heart with angina pectoris, NSTEMI (non-ST elevated [...] Coronary artery disease (eight) hours as involving [place] needed for coronary artery of Nausea and [place] heart without Vomiting (N/V) angina pectoris, for [...] Added automatically from request for ilan dorothy [id number] Sepsis 05/03/2019 Obesity (BMI 30-39.9) 05/03/2019 Other [...] with No / Unsure 08/21/2020 4:03 PM PLASTIC BOAT BUFFER someone who was confirmed or suspected to have Coronavirus / COVID-19? documented as of this encounter Last Filed Vital Signs Not on filedocumented in this encounter Miscellaneous Notes Telephone Encounter - Annette Treadwell RN - 09/11/2020 4:[address] Escobar. He advised that the patient needs to take plavix and eliquis together since she had a heart stent recently. However, he wants to review her lab work before she starts the Eliquis. elephone Encounter - Annette Treadwell RN - 09/11/2020 [...] make follow-up with the EP. Orders placed. TIC BOAT BUFFER documented in this encounter Plan of Treatment Date Type Specialty Care Team Description 09/21/2020 Office Visit Cardiology Ludwig Escobar MD [address] [facility] [place] [phone] 11/07/2020 Office Visit Cardiology Manuel Choi MD [address] [place] [address]. [place], [place] [phone] Name Type Priority Associated Diagnoses Order S chedule CBC WITH DIFF LAB Routine Atrial flutter, 1 Occurrenc es starting unspecified type 09/09/2020 until 09/15/2021 COMP. METABOLIC PANEL LAB Routine Atrial flutter, 1 O ccurrences starting (20650) unspecified type 09/09/2020 until 09/10/2021 LIPID PANEL LAB Routine Atrial flutter, 1 Occurrence s starting (72521)(TOTAL unspecified type 09/09/2020 until CHOLESTEROL, 09/08/2021 TRIGLYCERIDES, HDL) N-TERMINAL PRO-BNP LAB Routine Atrial flutter, 1 Occu rrences starting unspecified type 09/09/2020 until 09/09/2021 CBC W/O DIFF LAB Routine Atrial flutter, Expected: , unspecified type Expires: LIPID PANEL LAB Routine Atrial flutter, Expected: , (29031)(TOTAL unspecified type Expires: 0 09/11/2021 CHOLESTEROL, TRIGLYCERIDES, HDL) COMP. METABOLIC PANEL LAB Routine Atrial flutter, Exp ected: 09/11/2020, (34660) unspecified type Expires: Health Maintenance Due Date [...] of this encounter Implants Implanted Type Area Filter Cloth Maker Device Shelf Expiration Model / Identifier Date [...] Address T ype Group Dates KARMA PARADA [id number] 2014-Prese [address] [place] [id number] [place] KARMA PARADA [id number] 2015-Prese [address] [place] Medic [place] [id number] [place] KARMA PARADA [id number] 2015-Prese [place] [id number] [place] KARMA PARADA [id number] 2020-Pres P O BOX Medic aid [place] [id number] MANAGED [place]ID [place] documented as of this encounter Advance Directives Name Relationship Healthcare Agent Communication Relationship Swapnil Whyte Spouse Health Care Agent
--- NOTE | 2020-09-13 12:05 | RAD REPORT ---
EXAM DESCRIPTION: RAD - Chest Single View - 09/13/2020 11:34 am CLINICAL HISTORY: CHEST PAIN COMPARISON: Portable June 2020 TECHNIQUE: AP portable chest image was obtained 09/13/2020 11:34 am . FINDINGS: Lungs are clear. Interstitial pattern matches comparison. Sternotomy wires are in place. H eart and vasculature are normal. No measurable pleural effusion and no pneumothorax. No acute bony ab normality seen. No acute aortic findings suspected. IMPRESSION: No acute cardiopulmonary process. No significant change from comparison study.
[2020-09-13] MEDS ORDERED: FENTANYL CITR 100 MCG/2 ML ONE ×2 (12:28→15:30)
[2020-09-13 12:33] LABS: Protime INR 1.52
[2020-09-13 12:34] LABS: Basophils % 0.7 % (0-1.3); Hematocrit 39.3 % (36.0-45.0); Lymphocytes % 27.2 % (15.3-44.8); MPV 7.8 fL (7.6-11.3)
--- NOTE | 2020-09-13 12:40 | EKG ---
Test Date: 2020-09-13 Test Time: 10:12:11 Financial Sales Advisor: JASON MEASUREMENT RESULTS: Intervals: Rate: 88 AK: 160 QRSD: 120 QT: 394 QTc: 476 Mathews: P: 76 AK: 160 QRS: 10 T: 62 INTERPRETIVE STATEMENTS: Normal sinus rhythm Right atrial enlargement Right bundle branch block Abnormal ECG Compared to ECG 07/10/2020 15:14:11 Atrial abnormality now present Sinus tachycardia no longer present Left-axis deviation no longer present Myocardial infarct finding no longer present Electronically Signed On 09-13-20 12:39:39 FURNITURE ASSEMBLER by Bora Soto
[2020-09-13 12:50] LABS: Albumin 3.5 g/dL (3.4-5.0); Bilirubin Direct 0.2 mg/dL (0-0.2); Bilirubin Total 0.5 mg/dL (0.2-1.0); Magnesium 1.5 mg/dL (1.8-2.4); Potassium 4.1 mmol/L (3.5-5.1); Protein, Total 7.5 g/dL (6.4-8.2); Troponin (Emerg Dept Use Only) 0.04 ng/mL (0.0-0.045)
[2020-09-13] MEDS ORDERED: MAGNESIUM SULFATE 1 gm IVPB 1 GM/100 ML BAG IV ONE (13:21)
--- NOTE | 2020-09-13 15:51 | RAD REPORT ---
EXAM DESCRIPTION: CT - Chest For Pe Angio - 09/13/2020 3:34 pm CLINICAL HISTORY: Chest pain COMPARISON: 04/2020 TECHNIQUE: Dynamically enhanced axial 3 mm thick images of the chest were obtained during administra tion of <100> mL Isovue 370 IV contrast. Coronal and oblique reconstruction images were generated and reviewed. Exam utilizes a protocol for optimal evaluation of pulmonary arterial tree. Maximum intensity projections 3D imaging was utilized All CT scans are performed using dose optimization technique as appropriate and may include automated exposure control or mA/KV adjustment according to patient size. FINDINGS: A pulmonary embolus is not seen. A thoracic aortic aneurysm is not noted. A pleural effusion is not seen. A pericardial effusion is not seen. A lung consolidation is not present. 4 millimeter right lower lobe nodule without significant change IMPRESSION: Negative for a pulmonary embolism. 4 millimeter right lower lobe nodule without significant change. If the patient is high risk followup CT chest in 6 months recommended
--- NOTE | 2020-09-13 15:58 | ER ---
Nurse's Notes [facility] Name: Kathy Whyte Age: 55 yrs Sex: Female : 1965 Arrival Date: 09/13/2020 Time: 09:59 Bed 13 Private MD: Diagnosis: Chest pain, unspecified;Dorsalgia Presentation: 09/13 10:10 Chief complaint: Patient states: "I have a heart monitor and my doctor called me aa5 yesterday and said there was an abnormal rhythm". Pt c/o chest pain and back since heart stent placement December 2019. 10:10 Coronavirus screen: Client denies travel out of the [place] in the last 14 days. At this aa5 time, the client does not indicate any symptoms associated with coronavirus-19. Ebola Screen: Patient negative for fever greater than or equal to 101.5 degrees Fahrenheit, and additional compatible Ebola Virus Disease symptoms. Initial Sepsis Screen: Does the patient meet any 2 criteria? No. Patient's initial sepsis screen is negative. Does the patient have a suspected source of infection? No. Patient's initial sepsis screen is negative. Risk Assessment: Do you want to hurt yourself or someone else? Patient reports no desire to harm self or others. Onset of symptoms was August 2020. 10:10 Acuity: ARI 2 aa5 10:10 Method Of Arrival: Wheelchair aa5 Historical: - Allergies: 10:10 Compazine; aa5 10:10 Demerol; aa5 10:10 Morphine; aa5 10:10 Neurontin; aa5 10:10 NSAIDS; aa5 10:10 Stadol; aa5 10:10 Toradol; aa5 - PMHx: 10:10 Anxiety; CVA; Depression; High Cholesterol; Hypertension; Seizures; Myocardial aa5 infarction; - PSHx: 10:10 Cholecystectomy; Heart stents; Appendectomy; CABG; Hysterectomy; aa5 - Immunization history:: Adult Immunizations unknown. - Social history:: Smoking status: Patient denies any tobacco usage or history of. Screenin:48 Abuse screen: Denies threats or abuse. Denies injuries from another. Nutritional zb screening: No deficits noted. Tuberculosis screening: No symptoms or risk factors identified. Fall Risk None identified. Assessment: 12:15 General: Appears in no apparent distress. uncomfortable, Behavior is calm, cooperative, zb appropriate for age. Pain: Complains of pain in left scapular area and anterior aspect of left upper chest Pain does not radiate. Pain currently is 10 out of 10 on a pain scale. Quality of pain is described as pressure, piercing, Pain began 2-3 days ago. Is continuous. Neuro: Level of Consciousness is awake, alert, obeys commands, Oriented to person, place, time, situation. Cardiovascular: Reports chest pain, palpitations, Denies lightheadedness, nausea, shortness of breath, syncope, vomiting, Heart tones S1 S2 Murmur present Capillary refill < 3 seconds in bilateral fingers Patient's skin is warm and dry. Edema is absent. Respiratory: Airway is patent Respiratory effort is even, unlabored, Respiratory pattern is regular, symmetrical. GI: Abdomen is round non-distended, Bowel sounds present X 4 quads. Abd is soft and non tender X 4 quads. : No signs and/or symptoms were reported regarding the genitourinary system. EENT: No signs and/or symptoms were reported regarding the EENT system. Derm: Skin is intact, is healthy with good turgor, Skin is dry, Skin is normal, Skin temperature is warm. Musculoskeletal: Circulation, motion, and sensation intact. Capillary refill < 3 seconds, in bilateral fingers. Range of motion: intact in all extremities. 13:15 Reassessment: Patient appears in no apparent distress at this time. Patient and/or zb family updated on plan of care and expected duration. Pain level reassessed. pt lying in bed. states that she is hot. medication helped with pain. 14:15 Reassessment: Patient appears in no apparent distress at this time. Patient and/or zb family updated on plan of care and expected duration. Pain level reassessed. patient resting in bed. awaiting US IV so she can get taking to CT. 15:00 Reassessment: Patient appears in no apparent distress at this time. Patient and/or zb family updated on plan of care and expected duration. Pain level reassessed. pt c/o of pain. notified MD. medicaition ordered. 15:54 Reassessment: patient states her pain is better rates pain 6/10 currently. zb 16:15 Reassessment: Patient appears in no apparent distress at this time. pt gait steady, d/c zb instructions given. question answered. Vital Signs: 10:10 BP 134 / 92; Pulse 87; Resp 16 S; Temp 97.3(TE); Pulse Ox 100% on R/A; Weight 68.95 kg aa5 (R); Height 5 ft. 3 in. (160.02 cm) (R); Pain 9/10; 12:30 BP 159 / 95; Pulse 71; Resp 16; Pulse Ox 100% on R/A; zb 13:30 BP 145 / 110; Pulse 65; Resp 18; Pulse Ox 94% on R/A; zb 14:30 BP 159 / 95; Pulse 74; Resp 18; Pulse Ox 100% on R/A; zb 15:30 BP 142 / 71; Pulse 66; Resp 16; Pulse Ox 100% on R/A; zb 16:00 BP 140 / 80; Pulse 67; Resp 18; Pulse Ox 100% on R/A; zb 10:10 Body Mass Index 26.93 (68.95 kg, 160.02 cm) aa5 ED Course: 09:59 Patient arrived in ED. ag5 10:10 Arm band placed on. aa5 10:10 EKG completed in triage. Results shown to MD. aa5 10:21 Triage completed. aa5 11:07 Lionel Severino PA is PHCP. cp 11:07 Cara West MD is Attending Physician. cp 11:34 XRAY Chest (1 view) In Process Unspecified. EDMS 12:07 Twila Wallace, PRASHANT is Primary Nurse. zb 12:25 Inserted saline lock: 24 gauge in right upper arm, using aseptic technique. Blood ss collected. 12:49 Patient has correct armband on for positive identification. Bed in low position. Call zb light in reach. Side rails up X 1. security monitor on. Pulse ox on. NIBP on. Door closed. Noise minimized. 12:49 Patient maintains SpO2 saturation greater than 95% on room air. zb 15:34 CT Chest For PE Angio In Process Unspecified. EDMS 16:29 No provider procedures requiring assistance completed. IV discontinued, intact, zb bleeding controlled, No redness/swelling at site. Pressure dressing applied. Administered Medications: 12:15 Drug: fentaNYL (PF) 25 mcg Route: IVP; Site: right upper arm; zb 15:06 Follow up: Response: No adverse reaction; Pain is decreased; RASS: Alert and Calm (0) zb 14:50 Drug: Magnesium Sulfate 1 grams Route: IVPB; Infused Over: 1 hrs; Site: right upper arm;zb 15:00 Follow up: Response: No adverse reaction; IV Status: Completed infusion; IV Intake: zb 100ml 15:17 Drug: fentaNYL (PF) 25 mcg Route: IVP; Site: left upper arm; zb 15:30 Follow up: Response: No adverse reaction; Pain is decreased zb Intake: 15:00 IV: 100ml; Total: 100ml. zb Outcome: 15:57 Discharge ordered by MD. cp 16:29 Discharged to home ambulatory. zb 16:29 Condition: stable 16:29 Discharge instructions given to patient, Instructed on discharge instructions, follow up and referral plans. medication usage, Demonstrated understanding of instructions, follow-up care, medications, Prescriptions given X 1. 16:30 Patient left the ED. zb Signatures: Dispatcher [employer] EDVT Lara Ortiz RN RN aa5 Faustina White RN RN Lionel Ramírez, PA PA Jonathan Del Angel ag5 Twila Wallace RN RN zb
--- NOTE | 2020-09-13 15:58 | EDPHYS ---
Physician Documentation [facility] Name: Kathy Whyte Age: 55 yrs Sex: Female : 1965 Arrival Date: 09/13/2020 Time: 09:59 Bed 13 Private MD: ED Physician Cara West HPI: 09/13 11:30 This 55 yrs old Female presents to ER via Wheelchair with complaints of Chest cp Pain, Palpitations. 11:30 The patient or guardian reports chest pain that is located primarily in the anterior cp chest wall. 11:30 Onset: this morning, at 04:00. cp 11:30 The pain radiates to back. Associated signs and symptoms: Pertinent negatives: cp abdominal pain, cough, diaphoresis, lower extremity pain, lower extremity swelling, vomiting. The chest pain is described as sharp. Duration: The patient or guardian reports a single episode, that is still ongoing, and unchanged. Historical: - Allergies: 10:10 Compazine; aa5 10:10 Demerol; aa5 10:10 Morphine; aa5 10:10 Neurontin; aa5 10:10 NSAIDS; aa5 10:10 Stadol; aa5 10:10 Toradol; aa5 - PMHx: 10:10 Anxiety; CVA; Depression; High Cholesterol; Hypertension; Seizures; Myocardial aa5 infarction; - PSHx: 10:10 Cholecystectomy; Heart stents; Appendectomy; CABG; Hysterectomy; aa5 - Immunization history:: Adult Immunizations unknown. - Social history:: Smoking status: Patient denies any tobacco usage or history of. ROS: 11:30 Cardiovascular: Positive for chest pain. cp 11:30 Constitutional: Negative for fever. cp Exam: 11:30 ECG was reviewed by the Attending Physician. cp 11:35 Constitutional: The patient appears in no acute distress, alert, awake, cp non-diaphoretic, non-toxic, well developed, well nourished. 11:35 Head/Face: Normocephalic, atraumatic. cp 11:35 Eyes: Periorbital structures: appear normal, Pupils: equal, round, and reactive to light and accomodation, Extraocular movements: intact throughout, Conjunctiva: normal, no exudate, no injection, Sclera: no appreciated abnormality, Lids and lashes: appear normal, bilaterally. 11:35 ENT: External ear(s): are unremarkable, Nose: is normal, Mouth: Lips: moist, Oral mucosa: moist, Posterior pharynx: Airway: no evidence of obstruction, patent. 11:35 Neck: ROM/movement: is normal, is supple, without pain, no range of motions limitations. 11:35 Chest/axilla: Inspection: normal, Palpation: is normal, no crepitus, no tenderness. 11:35 Cardiovascular: Rate: normal, Rhythm: regular, Edema: is not appreciated, JVD: is not appreciated. 11:35 Respiratory: the patient does not display signs of respiratory distress, Respirations: normal, no use of accessory muscles, no retractions, labored breathing, is not present, Breath sounds: are clear throughout, no decreased breath sounds, no stridor, no wheezing. 11:35 Abdomen/GI: Inspection: abdomen appears normal, Palpation: abdomen is soft and non-tender, in all quadrants. 11:35 Back: pain, that is moderate, ROM is normal. 11:35 Neuro: Orientation: to person, place \\T\\ time. Mentation: is normal, Motor: moves all fours, strength is normal. Vital Signs: 10:10 BP 134 / 92; Pulse 87; Resp 16 S; Temp 97.3(TE); Pulse Ox 100% on R/A; Weight 68.95 kg aa5 (R); Height 5 ft. 3 in. (160.02 cm) (R); Pain 9/10; 12:30 BP 159 / 95; Pulse 71; Resp 16; Pulse Ox 100% on R/A; zb 13:30 BP 145 / 110; Pulse 65; Resp 18; Pulse Ox 94% on R/A; zb 14:30 BP 159 / 95; Pulse 74; Resp 18; Pulse Ox 100% on R/A; zb 15:30 BP 142 / 71; Pulse 66; Resp 16; Pulse Ox 100% on R/A; zb 16:00 BP 140 / 80; Pulse 67; Resp 18; Pulse Ox 100% on R/A; zb 10:10 Body Mass Index 26.93 (68.95 kg, 160.02 cm) aa5 MDM: 11:10 Patient medically screened. cp 12:00 Differential diagnosis: abnormal EKG, acute myocardial infarction, pneumonia, cp pneumothorax, pulmonary embolus, stable angina, thoracic aortic disection, unstable angina. 15:56 Data reviewed: vital signs, nurses notes, lab test result(s), EKG, radiologic studies, cp plain films. 15:56 Test interpretation: by ED physician or midlevel provider: ECG. Counseling: I had a cp detailed discussion with the patient and/or guardian regarding: the historical points, exam findings, and any diagnostic results supporting the discharge/admit diagnosis, lab results, radiology results, the need for outpatient follow up, a executive pilot, to return to the emergency department if symptoms worsen or persist or if there are any questions or concerns that arise at home. Response to treatment: the patient's symptoms have markedly improved after treatment, VSS. Initial and repeat troponin negative. Pain improved with meds. EKG negative for changes from previous. Will discharge to home for continued monitoring. 09/13 11:13 Order name: Basic Metabolic Panel 09/13 11:13 Order name: CBC with Diff 09/13 11:13 Order name: LFT's 09/13 11:13 Order name: Magnesium 09/13 11:13 Order name: NT PRO-BNP 09/13 11:13 Order name: PT-INR 09/13 11:13 Order name: Troponin (emerg Dept Use Only); Complete Time: 12:51 09/13 11:13 Order name: COVID-19 : Document "Date of Symptom Onset" if Symptomatic. 09/13 11:14 Order name: Basic Metabolic Panel; Complete Time: 12:51 EDMN 09/13 12:51 Interpretation: Normal except: GFR 74. 09/13 11:14 Order name: CBC with Automated Diff; Complete Time: 12:49 EDMN 09/13 12:49 Interpretation: Normal except: WBC 14.90; RBC 4.90; MCH 26.2; RDW 15.8; NEUT A 9.6. 09/13 11:14 Order name: Liver (Hepatic) Function; Complete Time: 12:51 EDMN 09/13 12:52 Interpretation: Normal except: ALT 101; ALK 210; GLOB 4.0; A/G 0.9. 09/13 11:14 Order name: Magnesium; Complete Time: 12:51 EDMN 09/13 11:14 Order name: NT PRO-BNP; Complete Time: 12:51 EDMN 09/13 11:14 Order name: Protime (+INR); Complete Time: 12:49 EDMS 09/13 11:13 Order name: XRAY Chest (1 view); Complete Time: 12:49 cp 09/13 11:13 Order name: EKG; Complete Time: 11:14 cp 09/13 11:13 Order name: Cardiac monitoring; Complete Time: 12:34 cp 09/13 11:13 Order name: EKG - Nurse/Tech; Complete Time: 12:34 cp 09/13 11:13 Order name: IV Saline Lock; Complete Time: 12:34 cp 09/13 11:13 Order name: Labs collected and sent; Complete Time: 12:34 cp 09/13 11:13 Order name: O2 Per Protocol; Complete Time: 12:34 cp 09/13 11:13 Order name: O2 Sat Monitoring; Complete Time: 12:34 cp 09/13 13:14 Order name: D-Dimer 09/13 13:14 Order name: LAB Add On 09/13 13:30 Order name: D-Dimer; Complete Time: 13:46 EDMN 09/13 13:46 Interpretation: Abnormal: D-DIMER 529. cp 09/13 13:46 Order name: CT Chest For PE Angio; Complete Time: 15:56 cp 09/13 14:56 Order name: Troponin I; Complete Time: 15:56 cp EC:30 Rate is 88 beats/min. Rhythm is regular. IN interval is normal. QRS interval is cp prolonged at 120 msec. QT interval is normal. T waves are Inverted in leads aVR, V2. Interpreted by me. Reviewed by me. Administered Medications: 12:15 Drug: fentaNYL (PF) 25 mcg Route: IVP; Site: right upper arm; zb 15:06 Follow up: Response: No adverse reaction; Pain is decreased; RASS: Alert and Calm (0) zb 14:50 Drug: Magnesium Sulfate 1 grams Route: IVPB; Infused Over: 1 hrs; Site: right upper arm;zb 15:00 Follow up: Response: No adverse reaction; IV Status: Completed infusion; IV Intake: zb 100ml 15:17 Drug: fentaNYL (PF) 25 mcg Route: IVP; Site: left upper arm; zb 15:30 Follow up: Response: No adverse reaction; Pain is decreased zb Disposition: 16:10 Chart complete. cp 18:25 Co-signature as Attending Physician, Cara West MD. ma2 Disposition: 09/13/20 15:57 Discharged to Home. Impression: Chest pain, unspecified, Dorsalgia. - Condition is Stable. - Discharge Instructions: Back Pain, Adult, Nonspecific Chest Pain, Aspirin and Your Heart. - Prescriptions for Lidoderm 5 % Topical adhesive patch,medicated - apply 1 patch by TRANSDERMAL route once daily; 1 box. - Medication Reconciliation Form, Thank You Letter, Antibiotic Education, Prescription Opioid Use form. - Follow up: Private Physician; When: 1 - 2 days; Reason: Recheck today's complaints. - Problem is new. - Symptoms have improved. Signatures: Dispatcher [employer] EDLara Mckay RN RN aa5 Lionel Severino PA PA cp Alzahri, Mohammad, MD MD ma2 Twila Wallace RN RN zb Corrections: (The following items were deleted from the chart) 12:52 12:52 Normal except: ALT 101; ALK 210. cp cp 15:58 15:57 09/13/2020 15:57 Discharged to Home. Impression: Chest pain, unspecified. cp Condition is Stable. Forms are Medication Reconciliation Form, Thank You Letter, Antibiotic Education, Prescription Opioid Use. Follow up: Private Physician; When: 1 - 2 days; Reason: Recheck today's complaints. Problem is new. Symptoms have improved. cp 16:30 15:58 09/13/2020 15:57 Discharged to Home. Impression: Chest pain, unspecified; zb Dorsalgia. Condition is Stable. Discharge Instructions: Back Pain, Adult, Nonspecific Chest Pain, Aspirin and Your Heart. Prescriptions for Lidoderm 5 % Topical adhesive patch,medicated - apply 1 patch by TRANSDERMAL route once daily; 1 box. and Forms are Medication Reconciliation Form, Thank You Letter, Antibiotic Education, Prescription Opioid Use. Follow up: Private Physician; When: 1 - 2 days; Reason: Recheck today's complaints. Problem is new. Symptoms have improved. cp
[2020-09-13 16:44] VITALS: TEMP 97.3
[2020-09-13 16:48] VITALS: O2SAT 100
[2020-09-13 16:49] VITALS: BP 142/71
== END 2020-09-13 16:30 | disposition home or self-care (01) ==
LOC: ER 09:56
DX: R07.9 Chest pain, unspecified (principal); M54.9 Dorsalgia, unspecified; Z88.6 Allergy status to analgesic agent; Z88.8 Allergy status to other drugs, medicaments and biological substances
CPT/HCPCS: 93005; 85025; 80048; 36415; 83735; 85610; 85379; 80076; 84484 ×2; 83880; 71275; 71045; 99285; Q9967; J3010 ×2; J3475

== ENCOUNTER 2020-10-23 20:35 | Observation (INO) | payer MEDICAID ==
--- OUTSIDE RECORDS SUMMARY | 2020-10-23 20:48 | XMS REPORT | Continuity of Care Document ---
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 80 MG 3-29 tab, PO, l Oral Tablet 17:12: Bedtime [place] [Lipitor] 00 Thiothixene 2013- Yes 5 mg = 1 Me moria [...] 0.9% 11-13 Route: l 14:00: IVP, Drug Form: INJ, [...] 7:06:00, Duration: 30 day, Stop date: 12/13/13 7:05:00([facility] as: Versed) Iohexol No 85 mL, Memoria 11-13 Route: l 11:04: IVP, Drug Form: SOLN, Dosing Weight 96.364, kg, ONCALL, STAT, Start date: 11/13/13 6:04:00, Duration: 1 doses or times, Stop date: 11/14/13 0:00:00, Dose = 2.2ml/kg, Max dose = 100ml -- "To be infused by Radiology Staff ONLY"(Same as:Omnipaq ue 350). Enoxaparin No 40 mg, 0.4 M emoria 11-13 mL, Route: l 11:00: SUB-Q, Drug form: INJ, [id number], Dosing Weight 96.364, kg, Start date: 11/13/13 6:00:00, Duration: 30 day, Stop date: 12/12/13 6:00:00([facility] as: Lovenox) Saline No 5 ml, Memoria Flush 0.9% 11-13 Route: l 10:15: IVP, Drug Form: INJ, Dosing Weight 96.364, kg, PRN, PRN Line Flush, Start date: 11/13/13 5:15:00, Duration: 30 day, Stop date: 12/13/13 5:14:00([facility] as: BD Posiflush) Acetaminoph No 650 mg, [...] PO, l tablet 18:40: Brown BID, 60 [place] 28 tab, Substituti on Allowed, TAB haloperidol [...] PO, l tablet 12:12: Brown Q24H, 7 [place] 09 tab, Substituti on Allowed, TAB Flagyl [...] Daily, 30 l oral 22:16: Brown cap, [place] capsule 28 Substituti on Allowed, Maintenanc e, [...] Bubis IVPB, Cabrera 0.9% IV 250 00 [id number], mL Dosing Weight 98.182, kg, Start date: 05/10/13 18:00:00, Duration: 30 day, Stop date: 06/08/13 18:00:00 Neutra-Phos 2012- No Anna Marie 1 pkt, M emoria 05-10 Janey Route: PO, l 22:45: Brown Drug Form: Enrique n 00 PDR/REC, Dosing Weight 98.182, kg, ONCE, Start date: 05/10/13 17:45:00, Stop date: 05/10/13 17:45:00 magnesium No Anna Marie 1 gm, Mike sujey [...] 30 day, Stop date: 06/09/13 8:00:00 aspirin 2012- No Anna Marie 81 mg, 1 Mem oria 05-10 Janey tab, l 18:00: Brown Route: PO, Enrique n Drug form: ECTAB, Daily, Dosing Weight 98.182, kg, Start date: 05/10/13 13:00:00, Duration: 30 day, Stop date: 06/09/13 9:00:00 azithromyci 2012- No Lyndon 250 mg, 1 Memoria n 250 mg 05-10 Amado tab, l oral tablet 13:00: Bubis Route: PO, Cabrera Drug form: TAB, [id number], Dosing Weight 98.182, kg, Start date: 05/10/13 [...] 1 Memoria 05-10 Gilderslee tab, l 02:00: ve Route: PO, Cabrera 00 Drug form: TAB, Bedtime, Dosing Weight 113.636, kg, Start date: 05/09/13 21:00:00, Duration: 30 day, Stop date: 06/07/13 21:00:00 Mag-Ox 400 No Kamal 400 mg, 1 M emoria 05-10 Zi tab, l 00:00: Angeline Route: PO, [place] 00 Drug form: TAB, On Adm, Start date: 05/09/13 19:00:00, Duration: 1 doses or times, Stop date: 05/09/13 21:00:00 magnesium No Kamal 500 mg, Mike sujey oxide base 05-09 Zi Route: PO, l 500 mg oral 23:08: Angeline Drug form: [place] tablet 00 TAB, ONCE, Dosing Weight 98.182, [...] n 05-09 Carmen Route: PO, l 13:10: Gill Drug Form: Herm tin 00 TAB, Dosing Weight 98.182, kg, Daily, Start date: 05/09/13 8:10:00, Duration: 30 day, Stop date: 06/07/13 9:00:00 heparin 2012-0 No Hannah 5,000 Memoria 05-09 Dom unit, 1 l 13:00: Tom mL, Route: Enrique n 00 SUB-Q, Drug form: INJ, Q8H, Dosing Weight 98.182, kg, Start date: 05/09/13 8:00:00, Duration: 30 day, Stop date: 06/08/13 0:00:00 Plavix No Hannah 75 mg, 1 Memori a 05-09 Dom tab, l 13:00: Tom Route: PO, Enrique n 00 Drug form: TAB, Daily, Dosing Weight 98.182, kg, Start date: 05/09/13 8:00:00, Duration: 30 day, Stop date: 06/07/13 9:00:00 Rocephin No Hannah 1 gm, Memoria 05-09 Dom Route: l 13:00: Tom IVPB, Drug Enrique n 00 form: PDR/INJ, [id number], Dosing Weight 98.182, kg, Start date: 05/09/13 [...] 30 day, Stop date: 06/08/13 7:39:00 Dextrose 2012-0 No Hannah 6.25 gm, Mike sujey 50% Syringe 05-09 Dom 12.5 mL, l 12:40: Tom Route: [place] 00 IVP, Drug Form: INJ, Dosing Weight 98.182, kg, PRN, PRN Abnormal Lab Result, Start date: 05/09/13 7:40:00, Duration: 30 day, Stop date: 06/08/13 7:39:00 NS (Bolus) No Brittany 1,000 mL, Memoria IV 1,000 mL 05-09 Carmen Rate: l 12:37: Zwiener 1,000 [place] 00 ml/hr, Infuse over: 1 hr, Route: [...] Dom Route: l 11:49: Tom IVP, Drug [place] 00 Form: SOLN, Dosing Weight 98.182, kg, ONCALL, STAT, Start date: 05/09/13 6:49:00, Duration: 1 doses or times, Dose = 2.2ml/kg, Max dose = 100ml -- "To be infused by Radiology Staff ONLY"Dose = 2.2ml/kg, Max dose = 100ml -- "To be infused by Radiology Staff ONLY" NS 1000 mL No Lyndon 1,000 mL, Memoria 05-09 Amado Rate: 150 l 03:31: Bubis ml/hr, [place] 00 Infuse over: 6.7 hr, Route: IV, [...] 9:00:00 Saline 0 No Linsey 5 ml, Memori a Flush [...] [place]al[place] tab, PO, l 19:05: Daily, 30 Cabrera 08 tab, Substituti on Allowed, TAB verapamil 2011-08 No Anita Marcelino 40 mg, 1 Memoria 40 mg oral 2-04 [place]al[place] tab, PO, l tablet 19:03: TID, 90 [place] 44 tab, Substituti on Allowed, TAB caffeine [...] 2-04 [place]alante tab, l 05:00: Route: PO, [place] 00 Drug form: TAB, Q12H, Dosing Weight [...] l benzoate + 19:20: Koranne IVPB, Drug [place] Sodium 00 form: INJ, Chloride ONCE, 0.9% [...] Castellanos mL, Route: l 17:00: Chahil SUB-Q, Cabrera Drug form: INJ, Q24H, Dosing Weight 113.636, kg, Start date: 07/19/12 11:00:00, Duration: 30 day, Stop date: 08/17/12 11:00:00 hydromorpho 2011-08 No David Agustin 1 mg, 0.5 Memoria ne -02 Spicer mL, Route: l 16:49: IVP, Drug [place] form: INJ, ONCE, Dosing Weight 113.636, kg, Priority: STAT, Start date: 07/19/12 10:49:00, Stop date: 07/19/12 10:49:00 Plavix 2011-08 No Anita Marcelino 75 mg, 1 Mem oria 2-02 [place]al[place] tab, l 16:17: Route: PO, [place] 00 Drug form: TAB, Daily, Dosing Weight [...] Memor ia 2-02 Daily, l 13:02: Substituti [place] 47 on Allowed Haldol 2011-08 Yes Baudilio [...] Cabrera Respitory Rate 2019-03-13 01:15:00 Memori al [place] Heart Rate 2019-03-12 22:53:00 [facility] [place] Respitory Rate 2019-03-12 22:07:00 Memori al [place] Systolic (mm Hg) 2019-03-12 22:07:00 Mike rial [place] Diastolic (mm Hg) 2019-03-12 22:07:00 Mem orial [place] Heart Rate 2019-03-12 22:07:00 [facility] [place] Systolic (mm Hg) 2019-03-12 20:52:00 Mike rial [place] Diastolic (mm Hg) 2019-03-12 20:52:00 Mem orial [place] Temperature Oral (F) 2019-03-12 20:52:00 97.3 F [facility] Respitory Rate 2019-03-12 20:52:00 Memori al [place] Heart Rate 2019-03-12 20:52:00 [facility] [place] Temperature Oral (F) 2019-03-12 16:26:00 97.3 F [facility] Weight 2019-03-10 08:42:00 [facility] Weight 2019-03-10 08:31:00 [facility] [place] Height 2019-03-10 08:31:00 160.02 cm [facility] BMI Calculated 2019-03-10 08:31:00 Memori al [place] Weight 2019-03-09 20:31:00 [facility] BMI Calculated 2019-03-09 20:31:00 [facility] al [place] Height 2019-03-09 20:31:00 172.72 cm [facility] [place] Temperature Oral (F) 2015-03-22 21:22:00 97.5 F [facility] Heart Rate 2015-03-22 21:22:00 [facility] Respitory Rate 2015-03-22 21:22:00 Memori al [place] Systolic (mm Hg) 2015-03-22 21:22:00 Mike rial [place] Diastolic (mm Hg) 2015-03-22 21:22:00 Mem orial [place] Heart Rate 2015-03-22 17:00:00 [facility] [place] Respitory Rate 2015-03-22 17:00:00 Memori al [place] Temperature Oral (F) 2015-03-22 17:00:00 97.4 F [facility] Systolic (mm Hg) 2015-03-22 17:00:00 Mike rial [place] Diastolic (mm Hg) 2015-03-22 17:00:00 Mem orial [place] Systolic (mm Hg) 2015-03-22 14:14:00 Mike rial [place] Diastolic (mm Hg) 2015-03-22 14:14:00 Mem orial [place] Heart Rate 2015-03-22 14:14:00 [facility] [place] Temperature Oral (F) 2015-03-22 14:14:00 97.8 F [facility] Respitory Rate 2015-03-22 14:14:00 Memori al [place] Weight 2015-03-17 00:52:00 [facility] Height 2015-03-17 00:52:00 160.02 cm [facility] BMI Calculated 2015-03-17 00:52:00 Memori al [place] Temperature Oral (F) 2014-11-01 00:46:00 98.1 F [facility] Heart Rate 2014-11-01 00:46:00 [facility] Respitory Rate 2014-11-01 00:46:00 Memori al [place] Systolic (mm Hg) 2014-11-01 00:46:00 Mike rial [place] Diastolic (mm Hg) 2014-11-01 00:46:00 Mem orial [place] Temperature Oral (F) 2014-10-31 21:18:00 98.6 F [facility] Heart Rate 2014-10-31 21:18:00 [facility] Respitory Rate 2014-10-31 21:18:00 Memori al [place] Systolic (mm Hg) 2014-10-31 21:18:00 Mike rial [place] Diastolic (mm Hg) 2014-10-31 21:18:00 Mem orial [place] Temperature Oral (F) 2014-10-31 15:55:00 98.2 F [facility] Respitory Rate 2014-10-31 15:55:00 Memori al [place] Systolic (mm Hg) 2014-10-31 15:55:00 Mike rial [place] Diastolic (mm Hg) 2014-10-31 15:55:00 Mem orial [place] Heart Rate 2014-10-31 15:55:00 [facility] Weight 2014-10-26 02:54:00 [facility] BMI Calculated 2014-10-26 02:54:00 Memori al [place] Height 2014-10-26 02:54:00 160.02 cm [facility] Diastolic (mm Hg) 2013-11-14 19:30:00 Mem orial [place] Heart Rate 2013-11-14 19:30:00 [facility] [place] Systolic (mm Hg) 2013-11-14 19:30:00 Mike rial [place] Respitory Rate 2013-11-14 19:30:00 Memori al [place] Temperature Oral (F) 2013-11-14 19:30:00 98.3 F [facility] Heart Rate 2013-11-14 17:18:00 [facility] [place] Respitory Rate 2013-11-14 17:18:00 Memori al [place] Temperature Oral (F) 2013-11-14 17:18:00 98.0 F [facility] Systolic (mm Hg) 2013-11-14 17:18:00 Mike rial [place] Diastolic (mm Hg) 2013-11-14 17:18:00 Mem orial [place] Diastolic (mm Hg) 2013-11-14 16:00:00 Mem orial [place] Systolic (mm Hg) 2013-11-14 16:00:00 Mike rial [place] Temperature Oral (F) 2013-11-14 15:04:00 97.4 F [facility] Respitory Rate 2013-11-14 07:00:00 Memori al [place] Height 2013-11-13 11:04:00 162.56 cm [facility] Weight 2013-11-13 11:04:00 [facility] BMI Calculated 2013-11-13 11:04:00 Memori al [place] BMI Calculated 2013-11-13 08:43:00 Memori al [place] Height 2013-11-13 08:43:00 160.02 cm [facility] Weight 2013-11-13 08:43:00 [facility] [place] Heart Rate 2013-11-13 08:43:00 [facility] [place] Heart Rate 2013-05-12 16:17:00 [facility] [place] Diastolic (mm Hg) 2013-05-12 16:17:00 Mem orial [place] Systolic (mm Hg) 2013-05-12 16:17:00 Mike rial [place] Respitory Rate 2013-05-12 15:30:00 Memori al [place] Diastolic (mm Hg) 2013-05-12 12:53:00 Mem orial [place] Systolic (mm Hg) 2013-05-12 12:53:00 Mike rial [place] Respitory Rate 2013-05-12 12:53:00 Memori al [place] Heart Rate 2013-05-12 12:53:00 [facility] [place] Temperature Oral (F) 2013-05-12 12:53:00 99.1 F [facility] Diastolic (mm Hg) 2013-05-12 08:31:00 Mem orial [place] Systolic (mm Hg) 2013-05-12 08:31:00 Mike rial [place] Respitory Rate 2013-05-12 08:31:00 Memori al [place] Heart Rate 2013-05-12 08:31:00 [facility] [place] Temperature Oral (F) 2013-05-12 08:31:00 99.8 F [facility] [place] Temperature Oral (F) 2013-05-12 04:50:00 99.8 F [facility] [place] Height 2013-05-09 03:31:00 160.02 cm [facility] Weight 2013-05-09 03:31:00 [facility] [place] Respitory Rate 2012-07-22 01:09:00 Memori al [place] Systolic (mm Hg) 2012-07-22 01:09:00 Mike rial [place] Diastolic (mm Hg) 2012-07-22 01:09:00 Mem orial [place] Temperature Oral (F) 2012-07-22 01:09:00 98.6 F [facility] Heart Rate 2012-07-22 01:09:00 [facility] Diastolic (mm Hg) 2012-07-21 21:10:00 Mem orial [place] Systolic (mm Hg) 2012-07-21 21:10:00 Mike rial [place] Temperature Oral (F) 2012-07-21 21:10:00 97.2 F [facility] Heart Rate 2012-07-21 21:10:00 [facility] Respitory Rate 2012-07-21 21:10:00 Memori al [place] Temperature Oral (F) 2012-07-21 18:26:00 98.5 F [facility] Heart Rate 2012-07-21 18:26:00 [facility] Respitory Rate 2012-07-21 18:26:00 Memori al [place] Diastolic (mm Hg) 2012-07-21 18:26:00 Mem orial [place] Systolic (mm Hg) 2012-07-21 18:26:00 Miek rial [place] Weight 2012-07-19 12:37:00 [facility] [place] Height 2012-07-19 12:37:00 160.02 cm [facility] Cabrrea Procedures Procedure Date / Time Performing Clinician Source Performed Spinal puncture, 2015-03-17 20:30:27 [facility] rmann therapeutic, for drainage of cerebrospinal fluid (by needle or catheter) Appendectomy [facility] [place] Cholecystectomy [facility] [place] Ankle fusion<sup>1</sup> Memoria l Cabrera Appendectomy [facility] Cabrera Cholecystectomy [facility] Cabrera Fixation of fracture using Memor ial Cabrera plate [facility] Start End Encounter Admission Attending Care Care Encounter Source Date/Time Date/Time Type Type Clinicians Facility Department ID 2020-10-11 2020-10-11 Urgent Alvarado, [facility] [id number] 19:16:42 19:39:22 Care [facility] [id number] [place] [id number] Professio [phone] nal 044 Office Building One 2020-08-21 2020-08-21 Nurse Visit, [facility] [id number] 16:03:42 16:51:06 Visit Nurse Jairo [id number] [place] [id number] Professio [phone] nal 059 Building 2020-03-28 2020-03-28 Outpatient Qian Cotto [id number] [facility] 16:00:00 16:00:00 [facility]GR[facility] 2020-02-21 2020-02-21 Outpatient Qian Cotto [id number] [address] 15:00:00 15:00:00 [employer] [facility] Medicine Medicine Outpati ent Clinics 2020-02-16 2020-02-16 [facility] [id number] 07:13:00 07:13:00 t Lynden Skeeble s - Drive [facility] Medicine l Medicine Outpati ent Clinics 2020-02-15 2020-02-15 [facility] [id number] 14:22:00 14:22:00 t [employer] - [employer] [facility] Medicine l Medicine Outpati ent Clinics 2020-01-12 2020-01-12 [facility] [id number] [facility] 16:30:00 16:30:00 t [facility] [employer] [facility] Medicine l Medicine Outpati ent Clinics 2019-12-27 2019-12-27 [facility] [id number] 14:45:00 14:45:00 t [employer] [facility] Medicine Outpati ent Clinics 2019-09-27 2019-09-27 [facility] [id number] 15:00:00 15:00:00 t [place] s - [employer] [facility] Medicine Medicine Outpati ent Clinics 2019-03-09 2019-03-12 Outpatient Natasha [facility] [id number] 15:30:52 21:00:00 Cerena K 00 2019-03-09 2019-03-09 Inpatient E [facility] [address] [place] [address] 18:36:00 15:30:00 2015-03-16 2015-03-22 Outpatient Yissel [facility] [id number] 18:33:00 20:09:00 Gael Stephenson 11 2014-10-25 2014-10-31 Outpatient Radha [facility] [id number] 20:37:00 20:05:00 Wilberto 69 2013-11-13 2013-11-14 Outpatient Radha [facility] [id number] 03:43:00 18:45:00 Wilberto Results Test Description Test Time Test Comments Results Result Comments Source CHEM PANEL 2019-03-12 2.6 [facility] [place] nn 08:51:00 CHEM PANEL 2019-03-12 101 [facility] [place] nn 08:51:00 CHEM PANEL 2019-03-12 8.2 [...] code = MCH) 29.0 pg 27.0-31.0 [facility] WdxfqgaFVQELAXHDV7277-43-03 08:51:0032.7[facility] HermannHEMATOLOGY 2019-03-12 08:51:0088.4[facility] LrzwgciQHMEMGIPVX4723-83-45 08:51:0032.2[facility] HermannPARATHYROID XRGCVZJ3973-04-64 08:51:001.05[facility] HermannPARATHYROID GNMSJXB1836-23-54 08:51:001.05[facility] HermannCHEM TFNTB6931-02-81 21:57:0083 [facility] HermannCHEM PLBBW2346-65-33 21:57:0011.4[facility] HermannCHEM PANEL 2019-03-11 21:57:008.2[facility] HermannCHEM [id number] 21:57:0025[facility] HermannCHEM HCVAL4999-14-83 21:57:70455Puqrdfgj HermannCHEM ICLZO5692-30-83 21:57:003.4[facility] HermannCHEM HCQCR6161-07-97 21:57:000.80[facility] HermannCHEM HJIIG9170-19-74 21:57:65973Iqlawifu HermannCHEM MUMMJ2160-98-08 21:57:44313 [facility]annCHEM UNANW5490-92-89 21:57:004[facility] HermannPARATHYROID QDFTWMU0069-12-13 21:57:001.07[facility] HermannPARATHYROID ATZWRMU6519-37-41 21:57:001.07[facility] HermannURINE AND WPHER4974-34-69 21:57:004[facility] URINE AND [id number] 21:57:00Negative (03/11/19 4:57 PM)[facility] URINE AND [id number] 21:57:00<1.0[facility]annURINE AND STOOL 2019-03-11 21:57:00Negative (03/11/19 4:57 PM)[facility] STOOL 2019-03-11 21:57:00Negative *NA*(03/11/19 4:57 PM)[facility] STOOL 2019-03-11 21:57:00Negative (03/11/19 4:57 PM)[facility] STOOL 2019-03-11 21:57:001[facility]annUR[facility] AND [id number] 21:57:00Yellow *NA*(03/11/19 4:57 PM)[facility] AND [id number] 21:57:00Slight *ABN*(03/11/19 4:57 PM)[facility] AND [id number] 21:57:00 Test Item Value Reference Range Interpretation Comments UA Spec Grav (test code = UA Spec 1.016 1 Grav) [facility] AND [id number] 21:57:00 Test Item Value Reference Range Interpretation Comments UA pH (test code = UA pH) 8.0 1 5.0-8.0 [facility] [id number] 21:57:007.4[facility] CHEM 2019-03-11 21:57:42144Xcpmstqc HermannURINE QKRU8593-94-06 21:57:47516Zhcmuxea HermannURINE QXOM9421-95-69 21:57:26129Gcjloirs HermannURINE XCWE2629-69-04 21:57:00Negative (03/11/19 4:57 PM)[facility] HermannCHEM UUVBH6699-06-43 09:03:00 109[facility] HermannCHEM QYQLH2131-72-89 09:03:002.9[facility] HermannCHEM PANEL 2019-03-11 09:03:56614Eenjszbl HermannCHEM RMOAX9040-89-34 09:03:000.51[facility] HermannCHEM PPIPS5075-38-32 09:03:004[facility] HermannCHEM MTSNG3236-91-06 09:03:0079[facility] HermannCHEM EMSCN8511-65-69 09:03:007.6[facility] HermannCHEM DBFHZ7658-35-13 09:03:009.9[facility] HermannCHEM LKKXN0373-02-10 09:03:0027 [facility] HermannCHEM INITG4290-27-03 09:03:10562Ltgbxtui HermannCHEM PANEL 2019-03-11 09:03:003.7[facility] HermannCHEM AEBIK3252-92-07 09:03:002.0[facility] LqsygnjBDMMNKQKIT8981-47-00 09:03:008.1[facility] HodpoznEVXGZVHHGE5156-98-66 09:03:76316Ervhaxvi CixtonmBYXFHKRBAK5348-48-68 09:03:0016.6[facility] EXXMHIHQNN1100-75-59 09:03:00 Test Item Value Reference Range Interpretation Comments MCH (test code = MCH) 29.0 pg 27.0-31.0 [facility] JrrpaxzGJQIPANDML7341-66-55 09:03:0033.0[facility] HermannHEMATOLOGY 2019-03-11 09:03:003.64[facility] NvvjowgDYWITASDRT7443-04-32 09:03:0010.6[facility] XgwewqqNTWNARXQHQ3554-49-46 09:03:009.3[facility] JdvtycmIBWLZHQCCM6235-76-46 09:03:0087.8[facility] CdeaflaAYOFZUSBHE6937-31-67 09:03:0032.0[facility] ZUYASKWTZN2822-13-24 09:03:004.0[facility] QkhpakcAGTMIXBKUS9502-75-79 09:03:00 62.5[facility] WqqewnbWRULLJHRSI4446-91-04 09:03:0027.8[facility] HermannHEMATOLOGY 2019-03-11 09:03:004.5[facility] EvnofnfXZCIIEJACH7984-33-44 09:03:005.8[facility] QeexphqPLKRWNNPOF1062-80-92 09:03:002.6[facility] YackgfgQNDDLZOPJY0307-84-06 09:03:000.4[facility] GrgxmzwWDRNWSJNFR1761-95-71 09:03:000.4[facility] BDKHHKWCMD0714-16-32 09:03:001.2[facility] TpwxdlhUYKLCYZTVC7980-86-84 09:03:000.1 [facility] HermannPARATHYROID GVNQRLN1388-97-73 09:03:000.91[facility] PARATHYROID BQDLWFN6244-75-24 09:03:000.96[facility] DzdegjtUHHNMJYBAI7436-19-66 19:00:000.3[facility] SalzfpiKMOUCKIVFY2533-61-62 19:00:000.4[facility] NFFDIXRWDO9601-56-81 19:00:002.8[facility] NufstcfYLLXBUJHNG7287-01-03 19:00:000.1 [facility] DhozppmRGIXYGIGFL7488-94-15 19:00:0061.6[facility] HermannHEMATOLOGY 2019-03-10 19:00:0029.1[facility] OciraewWDBUGADLUO4735-74-74 19:00:001.2[facility] VdlrahfGWPVQTARXQ7639-42-33 19:00:004.5[facility] LjsdqmoRQGRYOZRDU8246-00-24 19:00:005.8[facility] XfffrcpBFNJSEJVHI1309-09-49 19:00:003.6[facility] KTAFAJUBNM2482-57-05 19:00:007.9[facility] JpodmcoXASKFAGFVP0636-05-54 19:00:00 34.6[facility] OajcbgiWHNVUWZZII7267-25-77 19:00:00 Test Item Value Reference Range Interpretation Comments MCH (test code = MCH) 28.6 pg 27.0-31.0 [facility] VqmzoyiKVASWZFJNR1701-37-07 19:00:0088.5[facility] HermannHEMATOLOGY 2019-03-10 19:00:40747Vvpigeup VwhneinNRNLXJOCOP2549-43-72 19:00:0016.7[facility] UhbsidaLFAVMQXXZU6940-67-07 19:00:0032.3[facility] WinwcenWZMZAHVFPB4473-69-42 19:00:0011.2[facility] JycnhwdCCOSYVASTO8467-13-18 19:00:003.91[facility] XZOFQLVEXJ5649-76-87 19:00:009.5[facility] HamlpltCDCDHBMWQI2813-80-20 19:00:00 Test Item Value Reference Range Interpretation Comments INR (test code = INR) 1.06 1 0.85-1.17 [facility] WqwswffHCZKFDEDOM8408-68-10 19:00:00 Test Item Value Reference Range Interpretation Comments PT (test code = PT) 13.6 s 12.0-14.7 [facility] RemsdotHCHYUACXAF6442-16-33 19:00:00 Test Item Value Reference Range Interpretation Comments PTT (test code = PTT) 36.3 s 22.9-35.8 [facility] JYXXUXO3340-15-80 11:47:000.30[facility]annCHEM PANEL 2019-03-10 11:47:001.6[facility]annCHEM SCPQO3912-43-03 11:47:002.1[facility] SmobhmqNGIMZY7438-82-13 11:47:00 Test Item Value Reference Range Interpretation Comments VLDL (test code = VLDL) 39 1 [facility] BmhgxffLHLBNM7598-29-07 11:47:0036[facility] ZzgqrkxOWKOCG6725-84-95 11:47:0028[facility] FapibbwTKBVLX2730-41-75 11:47:73017Kulbubpg HermannLIPIDS 2019-03-10 11:47:48872Nzfmgaui RwxlrfyOUFYGJ6005-02-69 11:47:00 Test Item Value Reference Range Interpretation Comments CHD Risk (test code = CHD Risk) 3.68 1 3.90-5.80 [facility] HermannSPECIAL TOKSKUEIO6341-47-38 11:47:004.8[facility] HermannANEMIA MKZVL7011-35-63 09:18:31334Xolbqdfq HermannANEMIA TTJYP8575-23-88 09:18:004.4 [facility]annCARDIAC WMIQETJ8092-36-09 09:18:0010[facility]annCHEM PANEL 2019-03-10 09:18:65811Lhkojjzn SovudaaWYERMTLZZC6247-79-57 07:49:00 Test Item Value Reference Range Interpretation Comments PTT (test code = PTT) 42.4 s 22.9-35.8 [facility] QhdmusjEQKOOXTSVA4106-89-06 07:49:00 Test Item Value Reference Range Interpretation Comments PT (test code = PT) 13.5 s 12.0-14.7 [facility] LqnjvrvGYVFPDLQWQ4706-26-80 07:49:00 Test Item Value Reference Range Interpretation Comments INR (test code = INR) 1.05 1 0.85-1.17 [facility]annCARDIAC UGZNYOF4904-81-47 07:00:000.48[facility]annCARDIAC UHLXSXU8546-15-13 22:16:000.50[facility]annCARD[facility]AC GYKBLGZ9962-72-71 22:16:00 63[facility]annCHEM KTSVI4396-87-32 22:16:001.2[facility] HermannHEMATOLOGY 2019-03-09 22:16:00 Test Item Value Reference Range Interpretation Comments PTT (test code = PTT) 31.7 s 22.9-35.8 [facility] QljuzssGDAIGNOLXP1017-30-67 22:16:00 Test Item Value Reference Range Interpretation Comments INR (test code = INR) 1.07 1 0.85-1.17 [facility] NvhrpwuOIPZWQGWAM2236-59-60 22:16:00 Test Item Value Reference Range Interpretation Comments PT (test code = PT) 13.7 s 12.0-14.7 [facility]annCHEM CRMWP4817-05-49 09:12:003.5[facility] HermannCHEM PANEL 2015-03-22 09:12:001.8[facility] OjxeshhRLTUWYFCTWSZ1111-32-05 09:12:0022[facility] ZflxldgPWOXJINWFPIL1121-41-56 09:12:008.9[facility] ZowpkhaEWBHKHBROCVQ1326-63-80 09:12:0014.6[facility] JiwqduaJNJEQHOSZBPU6044-93-72 09:12:07816Vytvshrp Cabrera UEIUDAWBPWNB9203-33-58 09:12:003.6[facility] XxwnqkyYYDDFMFGRUXJ0610-67-75 09:12:000.9[facility] CjnibhuJZJYOCJPXHBL7933-24-38 09:12:07369Qnqhizzg Cabrera GVGXJVZRGYTO4091-73-25 09:12:0081[facility] SrmsacqZSJXTTFQRYVP0401-53-17 09:12:00 10[facility] MuqpkcxSYJWZCQZQZAJ7717-24-04 09:12:0075[facility]annHEMATOLOGY 2015-03-22 09:12:007.5[facility] RevhqwiHTJCLYMUDU8527-57-14 09:12:77850Qwrsucpz OpxucwuRSBGFVUSTT9600-36-02 09:12:0011.7[facility] ClmnlwlPVKAZTLXXF6613-58-61 09:12:0032.6[facility] LvknvudWPKYUAURZK5285-17-47 09:12:0084.1[facility] KZHLEIVZXE9210-86-30 09:12:003.87[facility] YrtdyqeQIIIQYLAPC1098-40-14 09:12:00 10.4[facility] YueclapALWZNPGFKV4645-82-91 09:12:0031.9[facility]annHEMATOLOGY 2015-03-22 09:12:00 Test Item Value Reference Range Interpretation Comments MCH (test code = MCH) 26.8 pg 27.0-31.0 [facility] BwxafmgXBXSCZKLMQ6849-39-16 09:12:0017.6[facility]annHEMATOLOGY 2015-03-22 09:12:001.0[facility] NukuvxsKBWGDMXUBR1529-44-97 09:12:007.4[facility] CjwasvkEIEANHKHVJ7745-80-50 09:12:0038.6[facility] XukzqzfUCMGCMZHAD3373-59-83 09:12:0052.0[facility] PeqkeiiYMBVBIWICV5271-27-39 09:12:001.0[facility] QFZTBJMWLY9395-28-78 09:12:006.1[facility] MqohnavPDEISRDZHE6505-83-90 09:12:000.1 [facility] SehlssrZODHKXBCHV4459-55-25 09:12:000.9[facility]annHEMATOLOGY 2015-03-22 09:12:000.1[facility] QmthablRMJOPCJSWJ8845-83-44 09:12:004.5[facility] RynyihpYKWNYCZCFK4133-85-73 16:38:005.0[facility] NxmdkusWDQXVISWFK4876-16-08 16:38:0014.5[facility] PhxmculZYVYXAPXUD6090-49-68 16:38:0016.2[facility] FNQXMIVBJT2527-06-56 16:38:0015.1[facility] YqykdslXHLMRGOCJD4308-05-56 16:38:00 49.2[facility] IfzvympQHHBFEXVJN4759-44-25 16:38:000.34[facility] HermannIMMUNOLOGY 2015-03-21 16:38:006.8[facility] HsfkitbVUYJVOVSRX7565-81-62 16:38:003.35[facility] CbzdvtsJFDFNUOYPJ1894-17-90 16:38:000.99[facility] ZyfhtioOBSTSKMTQA3606-95-77 16:38:001.10[facility] QablinpDEHFEEPOKN7722-61-48 16:38:001.03[facility] CHEM RIHYU4025-40-52 09:35:74344Dfndliml HermannCHEM HHFPM1228-20-96 09:35:009.1 [facility]annCHEM YYHXF6375-87-16 09:35:003.8[facility]annCHEM PANEL 2015-03-21 09:35:0021[facility]annCHEM XPRCN8613-09-42 09:35:57186Ocqdeika HermannCHEM DNSQJ9105-95-34 09:35:0011[facility]annCHEM RFDZT2536-18-55 09:35:37165Vopivfpi HermannCHEM HLLMY8955-48-45 09:35:0083[facility]annCHEM ZSANL2385-69-23 09:35:000.7[facility]annCHEM TMGKD5939-33-95 09:35:0014.8 [facility]annCHEM LLNGP3180-22-97 09:35:001.8[facility] HermannCHEM PANEL 2015-03-21 09:35:004.1[facility] DrwplxpUCWINYMHCY2849-82-61 09:35:000.1[facility] BhkuvdhNBVCKLTJOZ4341-49-70 09:35:000.7[facility] YaihsqbHGFETHHHUD7952-04-00 09:35:001.0[facility] EyeymmaLXQJJDWZJX1697-09-87 09:35:001.2[facility] ZEXYRAWQZO2496-75-62 09:35:003.7[facility] LavycmxQSQJQZGNVS0716-61-46 09:35:005.4 [facility] KuvntwzCEFOEEGWWB9607-39-00 09:35:006.9[facility]annHEMATOLOGY 2015-03-21 09:35:000.1[facility] PhbagxlHYAQEEZQUI7924-20-92 09:35:0054.0[facility] CiofxptBNRETXVUGG9999-22-72 09:35:0036.9[facility] YxrzxjoTVIUMLLDUL2517-53-14 09:35:0032.9[facility] VhkxvbhUHPCVPZHUH4054-43-11 09:35:0010.8[facility] JSOHOUGEAR9810-15-10 09:35:003.91[facility] VoyeydbBCOHQRVALF1231-99-12 09:35:00 10.0[facility] MrjzcxhDFIRLBYPPT5639-94-33 09:35:0032.9[facility]annHEMATOLOGY 2015-03-21 09:35:0017.2[facility] WjbvxgyVMRALYLVIZ8373-41-95 09:35:00 Test Item Value Reference Range Interpretation Comments MCH (test code = MCH) 27.7 pg 27.0-31.0 [facility] ZzbjcjpAJDCLSYBJE3588-02-73 09:35:0084.2[facility]annHEMATOLOGY 2015-03-21 09:35:007.5[facility] OvhlflkJSISJCPQNT6425-43-91 09:35:43986Hxhuirtv EphfkodDFMMBGTIVG5950-04-01 04:39:036.4[facility] HermannCHEM SVBMX5305-39-84 08:41:64289Tmawxmfa HermannCHEM WYMCE4605-40-15 08:41:73945Manffitt HermannCHEM YDMLX7610-09-87 08:41:0071[facility]annCHEM PDOMX9082-83-05 08:41:007[facility]annCHEM FRFAG0878-99-97 08:41:000.7[facility]annCHEM YUAHE6802-89-21 08:41:003.9[facility] HermannCHEM USASW2111-91-00 08:41:009.2[facility] HermannCHEM LTKEB6437-36-21 08:41:05052Rxsdycem HermannCHEM SMUOM9912-42-06 08:41:0023 [facility]annCHEM VEVEW0145-94-71 08:41:0013.9[facility] HermannCHEM PANEL 2015-03-20 08:41:001.9[facility] HermannCHEM MSAPD8076-25-90 08:41:003.6[facility] TbdsqpkREJCBHKWVY9129-97-55 08:41:0033.2[facility] NzwyagvLKGCTSVLBA7345-56-07 08:41:09848Vvnacgph OyantbjSOMJYOKUDE1627-29-31 08:41:0017.2[facility] TSEFZNFDFW3244-85-18 08:41:004.07[facility] FtxdqqeQBLDXQYPDH0921-59-41 08:41:00 9.6[facility] YmpbkrxVGWIDPLUEB7584-10-61 08:41:0011.2[facility] HermannHEMATOLOGY 2015-03-20 08:41:0033.6[facility] CshmqpaFQEHCYUOCC2397-80-67 08:41:0082.6[facility] AbxnlmeDDEFFKSCMD4710-41-08 08:41:00 Test Item Value Reference Range Interpretation Comments MCH (test code = MCH) 27.4 pg 27.0-31.0 [facility] QhjywkrEQMGPPWVAT7682-18-36 08:41:007.7[facility] HermannHEMATOLOGY 2015-03-20 08:41:0055.3[facility] LbdaslqLPZRUDBZZY4584-77-33 08:41:001.9[facility] LgfotkvPFAHWVPWED9578-84-31 08:41:0035.emorial PbyoxtuFHLHGXCKWJ6045-82-88 08:41:006.2[facility] QxwjaekEDDZMNVGMS5550-38-55 08:41:001.0[facility] GBGCARHFTA0018-41-34 08:41:005.3[facility] EpvzzdkSLDXADNDGN6392-02-61 08:41:003.4 [facility] IdvbglaMKDZCPXCSY9654-85-06 08:41:000.6[facility] HermannHEMATOLOGY 2015-03-20 08:41:000.1[facility] DnvzvquZFMOHNQNUQ2203-51-97 08:41:000.2[facility] GpthvkmKVXUEYSCDD7395-49-74 08:41:91757Sxfwelxd XeqzcrrHEXLLZLUIQ5727-95-18 16:56:000.91[facility] YvosapwSLFFPCWKTI0784-88-27 16:56:00Negative (03/19/15 11:56 AM)[facility] WuhgmucBIHYIKKBGE4559-01-28 16:56:00Non Reactive *NA*(03/19/15 11:56 AM)[facility] VxxahkwFGNZWHDESR2521-92-94 21:44:00Negative *NA*(03/18/15 4:44 PM) [facility] HermannVIRAL - AHNMLGFI8097-22-07 21:44:00<0.90[facility] CARDIAC BTISCKA0263-14-77 00:57:00<0.02[facility] GwveernQWRQKGHQTW3529-65-16 18:50:00 Test Item Value Reference Range Interpretation Comments PT (test code = PT) 14.5 s 12.0-14.7 [facility] WappfouIBQSOWQLIG5075-01-23 18:50:001.12[facility] HermannHEMATOLOGY 2015-03-17 18:50:00 Test Item Value Reference Range Interpretation Comments PTT (test code = PTT) 31.2 s 22.9-35.8 [facility] HermannCARDIAC RYGHREB0663-13-42 17:15:00<0.02[facility] HermannCHEM CJVDS7528-98-67 17:15:0071.0[facility] HermannBODY AERXNR0967-92-18 16:15:0042 [facility]annBODY MHHRQM9815-47-05 16:15:009[facility]annBODY FLUIDS 2015-03-17 16:15:001[facility] HermannBODY JKHJYW5920-61-72 16:15:0090[facility] HermannBODY EANTYF8077-83-31 16:15:00Clear (03/17/15 11:15 AM)[facility] BODY BMGYZC8265-07-95 16:15:00Colorless (03/17/15 11:15 AM)[facility] HermannBODY SFFJQF7045-98-05 16:15:00 Test Item Value Reference Range Interpretation Comments Tube Num CSF (test code = Tube Num CSF) 3 1 [facility] HermannBODY UKGRPF7598-36-70 16:15:00Colorless (03/17/15 11:15 AM) [facility]annBODY BHZXQP4123-81-66 16:15:003[facility] HermannBODY FLUIDS 2015-03-17 16:15:33361Whygfdwz HermannBODY UOZRBK5062-00-47 16:15:0071[facility] HfjpspnKXMVISDKFY3460-25-29 16:15:00Non Reactive (03/17/15 11:15 AM)[facility] HermannMOLECULAR LHUPWIPNNW8241-65-13 16:15:00Negative 9(03/17/15 11:15 AM) [facility] HermannMOLECULAR EQYQSIVMBH6345-83-56 16:15:00Negative 8(03/17/15 11:15 AM)[facility] HermannVIRAL - HQEGOOEN6012-39-61 16:15:00Negative (03/17/15 11:15 AM)[facility] HermannBACTERIAL - FZEEJJBZ0134-31-67 12:34:00Negative (03/17/15 7:34 AM)[facility] GzbflswKXTHWXUQDY7781-23-25 04:26:72259Jrzdwqya HermannBLOOD BANK UYHGWFH6561-44-70 02:18:00Negative (03/16/15 9:18 PM)[facility]annCHEM PANEL 2015-03-17 02:18:000.7[facility] HermannCHEM WZPYV1442-78-77 02:18:0012[facility] HermannCHEM EPGTW1047-27-60 02:18:003.9[facility] HermannCHEM KALEH5436-68-04 02:18:005[facility] HermannCHEM NOLHF6201-30-85 02:18:60664Fccxdgqc HermannCHEM ASCLX2474-10-85 02:18:000.2[facility] HermannCHEM WOYFO0901-29-21 02:18:0019 [facility]annCHEM MQCWF3551-92-26 02:18:006.8[facility] HermannCHEM PANEL 2015-03-17 02:18:002.9[facility] HermannDRUG ZSAMPV3359-03-93 02:18:00See Note *NA*(03/16/15 9:18 PM)[facility] HermannDRUG GNDQKR6701-10-38 02:18:00Negative *NA*(03/16/15 9:18 PM)[facility] HermannDRUG BLXYJH2925-71-47 02:18:00Negative *NA*(03/16/15 9:18 PM)[facility]annDRUG BANGHX6199-47-84 02:18:00Negative *NA*(03/16/15 9:18 PM)[facility] HermannDRUG BTAGJX8971-57-61 02:18:00Negative *NA*(03/16/15 9:18 PM)[facility] HermannDRUG JLYBKP5118-22-82 02:18:00Negative *NA*(03/16/15 9:18 PM)[facility] HermannDRUG CSEKOD9201-49-13 02:18:00Negative *NA*(03/16/15 9:18 PM)[facility] HermannDRUG OIHBQB5573-38-86 02:18:00Negative *NA*(03/16/15 9:18 PM)[facility]annDRUG WMIPTO8609-00-73 02:18:00Negative *NA*(03/16/15 9:18 PM)[facility] HermannDRUG MUNHNR1967-49-49 02:18:00Negative *NA*(03/16/15 9:18 PM)[facility] IcbvcbkLHUHKGZDZQ6696-94-24 02:18:00 Test Item Value Reference Range Interpretation Comments PTT (test code = PTT) 29.7 s 22.9-35.8 [facility] HermannPARATHYROID UTSRTQI7156-17-52 02:18:001.15[facility] PARATHYROID WXDDEAQ1827-79-98 02:18:001.12[facility] HermannURINE AND STOOL 2015-03-17 02:18:00Negative *NA*(03/16/15 9:18 PM)[facility]annURINE AND STOOL 2015-03-17 02:18:00Negative (03/16/15 9:18 PM)[facility]annURINE AND STOOL 2015-03-17 02:18:00Negative (03/16/15 9:18 PM)[facility]annURINE AND STOOL 2015-03-17 02:18:00Negative (03/16/15 9:18 PM)[facility]annURINE AND STOOL 2015-03-17 02:18:00<1[facility]annURINE AND TBSDM2380-28-88 02:18:007.0 [facility]annURINE AND MHHRL1605-70-21 02:18:00Clear (03/16/15 9:18 PM) [facility]annURINE AND MEIGO8426-11-48 02:18:001.009[facility]annURINE AND KFFXJ9106-09-12 02:18:00Light Yellow *NA*(03/16/15 9:18 PM)[facility] WVPNGOLHLU0906-53-52 13:30:00 Test Item Value Reference Range Interpretation Comments PTT (test code = PTT) 36.1 s 22.9-35.8 [facility] OejnlfeVFBIPEIYVW8769-19-75 13:30:00 Test Item Value Reference Range Interpretation Comments PT (test code = PT) 14.6 s 12.0-14.7 [facility] CmpyghnOXTOJHUUBM1896-15-65 13:30:001.13[facility] HermannTOXICOLOGY 2014-10-31 13:30:753170Sjwtayny VaetpzrXKFHQEUPZX6586-48-14 13:30:0025.2[facility] HermannCHEM VYHCA6012-98-34 06:18:003.1[facility] HermannCHEM JLQHF3596-66-49 06:18:001.8[facility] VemuwdxILUDFVKDKIAX5078-61-93 06:18:0014.1[facility] SJJDRYVXTJIE8361-74-86 06:18:48593Uukmuuiu PhvrtwiAHXYRIZMLBGC0359-20-29 06:18:91706Dutstcju JwpefwtOXTGDOFMIEPR4338-98-46 06:18:78370Uplvqzcb [facility] CORMECCFAGAH3033-99-24 06:18:004.1[facility] QroskzvQOMJHHRUDHER7784-51-24 06:18:008.5[facility] KinpbpiAGPOVFGDEHOB9931-97-46 06:18:0025[facility] DMCYZXVZVGAX7953-00-34 06:18:000.6[facility] OnlautsEFFQBLDLNWNC8031-11-38 06:18:0062[facility] HryosrmZHATOCBFUKWK2287-55-09 06:18:006[facility] TDUWTYDBIP2206-38-64 06:18:000.1[facility] JrjejceAMIJVDTGKF1844-23-75 06:18:005.7 [facility] AkbsdkaGRFYQBRHLF5931-46-65 06:18:005.0[facility] HermannHEMATOLOGY 2014-10-31 06:18:0031.1[facility] UybfobjEBAYFRNHSK7381-62-84 06:18:005.7[facility] KlzfparBHKTCOJDOW9406-29-97 06:18:0057.7[facility] SeqghlzLHTJDGKNBR0425-19-99 06:18:000.5[facility] MjfmgvsOKDVLILWRU9948-20-32 06:18:000.6[facility] SHIANZVKST8717-30-02 06:18:000.5[facility] MqwhbybXALPLQSLYI3798-28-43 06:18:003.1 [facility] KgggctgKHESPYBGPG0390-05-62 06:18:001.08[facility]annHEMATOLOGY 2014-10-31 06:18:00 Test Item Value Reference Range Interpretation Comments PTT (test code = PTT) 33.9 s 22.9-35.8 [facility] ImpnyhrMTXBHLKMEW5720-30-77 06:18:00 Test Item Value Reference Range Interpretation Comments PT (test code = PT) 14.1 s 12.0-14.7 [facility] UjuslqaPQZRNCSAKG9761-52-42 06:18:0010.0[facility]annHEMATOLOGY 2014-10-31 06:18:003.22[facility] UzttwtyFRZWXRQEON8564-37-57 06:18:0028.9[facility] LnkfoeuIXALFVSPKF0486-45-93 06:18:009.7[facility] BotosfeCYLDOLDDTF7191-83-75 06:18:0033.4[facility] InynqlzKVPQDQOWJU8551-43-96 06:18:00 Test Item Value Reference Range Interpretation Comments MCH (test code = MCH) 30.0 pg 27.0-31.0 [facility] EdiqlasYOFTJWSSXT1400-42-77 06:18:0089.8[facility] HermannHEMATOLOGY 2014-10-31 06:18:008.2[facility] QjygcbzVUGZMMWJEC7649-36-45 06:18:30702Pbaqeqyy QicnlfbYDICZKKCDO2309-03-10 06:18:0016.4[facility] HermannPARATHYROID PROFILE 2014-10-31 06:18:001.08[facility] HermannPARATHYROID HJPHQJN9100-54-59 06:18:00 1.05[facility] HermannCARDIAC OSVWHWL5373-93-82 07:00:0070[facility] HermannCHEM KHHND3982-65-00 07:00:003.2[facility] HermannCHEM VPABF8865-22-60 07:00:001.8 [facility] RkqxdacKOQZPDTZZCYG2352-12-88 07:00:0010.6[facility] HermannELECTROLYTES 2014-10-30 07:00:0079[facility] NdnxynaDXZFGRSHIQHU5989-94-34 07:00:008[facility] YxdofdhAMDITQQUFWHH9694-91-76 07:00:000.6[facility] NhejhdpHDLAYSOXLAIR0504-77-95 07:00:0027[facility] IcmacbhUGBAFMEETNNB5135-30-13 07:00:008.1[facility] OFIPHYAWMIDI7466-42-34 07:00:003.6[facility] EcnnbxeLYRRNBLNZIGP1725-17-63 07:00:55126Tlwxddlj ZzzmdvyCTAFWTQECBJK0071-12-02 07:00:05241Kxavpaso [facility]rera SFKFUUQTROLA8780-42-63 07:00:48741Onowdjsi BxxlygwTSMAEPFWAR3288-82-28 07:00:00 0.4[facility] VdwaakeDSCTVEYQEA6599-24-17 07:00:004.9[facility]annHEMATOLOGY 2014-10-30 07:00:000.6[facility] OecczsbZVGBAOKCCE7679-25-85 07:00:0049.4[facility] DambzwqSGAYMXDQCS1962-48-20 07:00:005.8[facility] WrrfsllHDEITVWCQL5225-19-62 07:00:003.7[facility] OhwyxxuLQOGALKNEG1010-80-02 07:00:0041.4[facility] VQQBGYYMLH0756-44-82 07:00:000.4[facility] DreowryYPPQAIANOR4931-76-22 07:00:005.1 [facility] EsinlqvWTNYFRMBBM3768-12-30 07:00:00 Test Item Value Reference Range Interpretation Comments MCH (test code = MCH) 29.4 pg 27.0-31.0 [facility] BfwetvlKSTGMISYVL4077-15-40 07:00:0027.5[facility] HermannHEMATOLOGY 2014-10-30 07:00:0016.3[facility] OxajlnwYOFPNSIEXR4916-11-47 07:00:97560Mmjyudml QtelroxAYSBARMCHW3993-15-65 07:00:008.4[facility] HiaaqyxCBVWXLUYZD5933-75-42 07:00:009.1[facility] WckfsipRIVGYJVMFF2286-19-95 07:00:0033.0[facility] EDZFXNQJPP0792-83-33 07:00:003.09[facility] OwtnvljQQDRNUVATS0069-88-64 07:00:00 11.8[facility] NvlnqzxDPUMZHOXMF0128-66-12 07:00:0089.0[facility]annHEMATOLOGY 2014-10-30 07:00:00 Test Item Value Reference Range Interpretation Comments PT (test code = PT) 13.5 s 12.0-14.7 [facility] KsthhbhCMRXBWFAFA3378-77-90 07:00:001.03[facility]annHEMATOLOGY 2014-10-30 07:00:00 Test Item Value Reference Range Interpretation Comments PTT (test code = PTT) 31.6 s 22.9-35.8 [facility] HermannPARATHYROID RLCVJWZ1541-06-39 07:00:001.10[facility] PARATHYROID RTNIZAY6080-63-00 07:00:001.11[facility] HermannCARDIAC ENZYMES 2014-10-30 05:00:00<0.010[facility] HermannCARDIAC SWDOGXN1498-85-51 05:00:00 0.02[facility] CyktvanWHUPZXWIIJ3308-05-14 05:00:000.2[facility]annHEMATOLOGY 2014-10-30 05:00:000.3[facility] HkoskqlFFREDZARBM3742-00-00 05:00:000.4[facility] KervdisMECDIMOYPP0331-96-65 05:00:003.2[facility] LspqwopWCZSVEDUQK2112-55-50 05:00:002.3[facility] MaumrbjDWBWAMXAMR9151-91-34 05:00:004.8[facility] FUWJJSUVZE1898-07-30 05:00:003.1[facility] XgijkkrYUFZXCVUQC7483-62-98 05:00:00 53.2[facility] BmjgmfaJMAOWFDIBZ1745-82-66 05:00:0038.5[facility] HermannHEMATOLOGY 2014-10-30 05:00:0014.9[facility] VmecbilCDEOFMWACZ0994-85-59 05:00:0032.8[facility] HfrpojtODKPSHCVYD0923-84-20 05:00:00 Test Item Value Reference Range Interpretation Comments MCH (test code = MCH) 30.3 pg 27.0-31.0 [facility] TkruuygAJGVTWPEOX8700-90-44 05:00:0092.2[facility] HermannHEMATOLOGY 2014-10-30 05:00:0016.3[facility] LysoactZPUKTTYTPN2828-72-58 05:00:004.9[facility] KdeihmpRTBQYSCYNK3292-76-95 05:00:001.61[facility] MgygeiyXVFYKCZAAK2853-21-73 05:00:006.0[facility] EjausxpXKUXHUAYHA2338-73-53 05:00:008.1[facility] FAUYMIXOAO2515-98-24 05:00:0073[facility] HermannPARATHYROID MBAFOEU0749-39-40 05:00:000.63[facility] HermannPARATHYROID CYDTWFU3365-25-50 05:00:000.62[facility] HermannCARDIAC GIOHDJV7485-01-11 05:00:0049[facility]annCARDIAC ENZYMES 2014-10-29 23:18:00<0.02[facility] HermannCARDIAC MXDBVIO9327-29-20 23:18:00 <0.010[facility]annCARDIAC PUQYCQI0280-44-52 23:18:0083[facility] CARDIAC POJJJAD4832-49-44 23:18:000.7[facility] HermannCARDIAC AKVVDWS1336-18-93 23:18:000.6[facility] WtouexcIKAFOQFWJQ0040-05-17 21:45:378963Adryiiiv [facility] LIERQHGNBO5386-70-38 21:45:0023.9[facility] HermannCHEM NIYQQ5259-85-86 10:42:00 0.7[facility] HermannCHEM GRLKB0716-48-26 07:00:001.8[facility] HermannCHEM PANEL 2014-10-29 07:00:002.8[facility] SnylovzWFEUVXGMQMSS8487-38-15 07:00:0011.0 [facility] UpepvmdIPGIAGARQYRK4719-62-59 07:00:0010[facility] HermannELECTROLYTES 2014-10-29 07:00:0083[facility] HqiqmeoCIKDYIPQHNOF9191-27-95 07:00:86060Glxpmnxb VeplsknCPLRLJSWDTAV7600-67-80 07:00:000.7[facility] PofyazxJLOWDGKBLZMH0699-27-21 07:00:92674Ozwoipiu LpnqintMDYVIYNGFTTI4712-02-98 07:00:0024[facility] FPODHQVOAXTS9157-59-57 07:00:007.9[facility] MrflmssPVQFWPRSYXUV6745-24-76 07:00:02387Yobeptpf KjnvcbnIMJHEAOCXIVK0998-68-43 07:00:004.0[facility] YFMGGFJVOH6298-37-19 07:00:000.1[facility] HcqnkfrDPUCBYHPOY6040-56-84 13:36:009.7 [facility] WyhvsoxYRKFEDXBSX4919-08-27 11:00:00 Test Item Value Reference Range Interpretation Comments Pat Od Value (test code = Pat Od 0.046 1 Value) [facility] YzsmpkiOKEIOBRKEM4648-63-62 11:00:00 Test Item Value Reference Range Interpretation Comments Pos CO Value (test code = Pos CO 0.392 1 Value) [facility] UouisedCGEMWOZENH8580-60-40 11:00:00Negative (10/28/14 6:00 AM)[facility] HermannCHEM EPSHR6049-36-81 15:45:001.0[facility] OxvgejqIBKMLOTSNR2887-49-48 11:00:0024.4[facility] HermannTHYROID FYVKW2376-04-05 11:00:000.120[facility] HermannTHYROID OXLXS9081-84-03 11:00:000.96[facility] HermannCHEM WVWNG5500-68-64 07:00:001.6[facility] UjtwyseEIAQYWHRVS7796-80-73 07:00:00Normal (10/27/14 2:00 AM) [facility] TzmnvkzXIQEBKNKYC1828-43-22 07:00:00Normal (10/27/14 2:00 AM)[facility] UevelqcBXTIXICFOX5528-28-89 01:49:0028[facility] SreyoulZXUQXVJXUI6447-90-05 23:06:00<0.1[facility] YqbcqvcGGTMPANTSC7514-43-33 23:00:00<0.1[facility]annBLOOD BANK DCHXIBN8024-01-44 21:24:00Negative (10/26/14 4:24 PM)[facility]annCHEM FYFTS3276-80-69 21:14:0070[facility]annCHEM NGGJI4935-44-11 21:14:000.15[facility] SmlwmbeOTBJJLVWYM4846-78-31 21:14:84071Mccqdgeb Cabrera GYMAKVQIVK3856-95-91 21:14:000.21[facility] BtshpcnQCUKORKYFO0982-48-55 21:14:00 29.2[facility]annCARDIAC QPFSKBE6743-38-22 18:30:00<0.010[facility] CARDIAC RKRGSNB3763-50-51 18:30:000.02[facility]annCHEM BHEZT3195-95-97 18:30:000.14[facility] SinmqxxQBKGBYXNVK2421-09-11 18:30:00Normal (10/26/14 1:30 PM)[facility] CastqtbPJGMVSVIKS3596-04-27 18:30:00Normal (10/26/14 1:30 PM)[facility] JkvqubgTOUHIPZDCF2170-71-34 18:30:000.0[facility] MxyhnrdFJFXAABQWN1826-88-82 18:30:001.0[facility]annCHEM XHZBI6827-39-55 11:15:000.1[facility]annCHEM VSNZF8587-76-27 11:15:000.2[facility]annCHEM PLZLK1718-86-10 11:15:000.1 [facility]annCHEM RWUHF5505-78-39 11:15:0011[facility]annCHEM PANEL 2014-10-26 11:15:38258Ddwpizhd HermannCHEM FMCVN0426-76-39 11:15:002.9[facility]annCHEM IHXYG9439-18-02 11:15:003.2[facility]annCHEM NLJMZ2937-93-89 11:15:006.1[facility]annCHEM NEJGC9749-41-25 11:15:0023[facility]annCHEM MUECT5696-19-09 11:15:000.9[facility] ZvxzwqkWDPSCPBTLF8978-94-06 11:15:000.1 [facility]annCHEM ZFDIS5580-67-12 09:01:000.05[facility]annDRUG SCREEN 2014-10-26 06:40:00Negative (10/26/14 1:40 [...] HermannURINE AND STOOL 2014-10-26 06:40:005[facility] INQET4252-95-65 06:40:0028[facility] ZLSFK6149-67-12 06:40:00Negative (10/26/14 1:40 AM)[facility] DCCDI2454-64-45 06:40:00Negative (10/26/14 1:40 AM)[facility] EDWEI3006-72-85 06:40:00Negative (10/26/14 1:40 AM)[facility] LISAI3629-56-88 06:40:00<=1.0[facility] STOOL 2014-10-26 06:40:00Negative (10/26/14 1:40 AM)[facility] ST[facility]OL 2014-10-26 06:40:001.009[facility] TCGPF1719-77-49 06:40:00Slight *ABN*(10/26/14 1:40 AM)[facility] HEFEP1901-91-63 06:40:00Yellow (10/26/14 1:40 AM)[facility] YVVES5266-30-69 06:40:005.0[facility] GhizmzfYVZEEMQXUU1315-92-10 02:45:00 Test Item Value Reference Range Interpretation Comments Angle (test code = Angle) 76.5 degrees 53.0-72.0 [facility] JurctccXBCRJVNKFM2517-72-57 02:45:00 Test Item Value Reference Range Interpretation Comments Max Amp (test code = Max Amp) 74.1 mm 50.0-70.0 [facility] WmbkiuuQVRWYDJUOO2470-00-66 02:45:0014.3[facility]annHEMATOLOGY 2014-10-26 02:45:00See Note 23(10/25/14 9:45 PM)[facility]annHEMATOLOGY 2014-10-26 02:45:003.4[facility] ZsdukogLYIFWYJANE6443-04-72 02:45:00 Test Item Value Reference Range Interpretation Comments K-time (test code = K-time) 1.0 min 1.0-3.0 [facility] UszvqwvVWUCQYMPTQ8856-52-62 02:45:00 Test Item Value Reference Range Interpretation Comments R-time (test code = R-time) 5.1 min 5.0-10.0 [facility] WkkitkrKLPJGUKXID6131-43-15 02:45:000.9[facility] DcmbzqoIBPMDM7398-01-43 02:45:0035[facility] SomnfiqXYJFKG5012-91-10 02:45:0060[facility] HermannLIPIDS 2014-10-26 02:45:002.76[facility] TxbgmbkDVPLZN4972-63-29 02:45:0054[facility] UnaacakZJPRCP6475-97-89 02:45:34454Pvnyjepi EyglwfsKMFHVE8262-37-48 02:45:22407 [facility]annSPECIAL CYXYQDVGW6749-69-50 02:45:005.7[facility] HermannCHEM RECNS3795-65-27 09:44:003.7[facility]annCHEM BTEYH8543-88-96 09:44:001.7 [facility] BygdlpeGMREFKDLYCLC6343-90-03 09:44:0013.6[facility] HermannELECTROLYTES 2013-11-14 09:44:0087[facility] NqudiqiJPVNOFUSFSJB0167-08-56 09:44:0023[facility] GhbsaeaTEAOFDJCYNFP2086-68-83 09:44:0070[facility] JrslbabPZJJRKDJVAEZ9329-12-07 09:44:000.8[facility] WaojcliOPQWZPLBMLLX9389-36-04 09:44:93002Baupvpqv Cabrera XUWJUGNJBHFM7418-04-92 09:44:004.6[facility] VingfmrRSHOEVOBJYZA5795-52-14 09:44:57662Upmimrej ZtfsvanCDFUBINFVMTM6422-27-64 09:44:0024[facility] RZXEJMKQXBPH1051-83-28 09:44:008.8[facility] AziahoaVYBVMQILHY6267-83-53 09:44:00 1.97[facility] JjiylsgFPMWKWYMXL7503-35-58 09:44:00 Test Item Value Reference Range Interpretation Comments PT (test code = PT) 22.1 s 12.0-14.7 [facility] KxhzaxyLGHSER3151-79-07 09:44:0093[facility] UwezizxQCZPHA5386-90-67 09:44:0066[facility] JpcchitYYYIEI3761-11-81 09:44:42470Bkfhpfvy HermannLIPIDS 2013-11-14 09:44:54537Mlhqrbmb UgsgiarKYKQBA9519-36-99 09:44:0038[facility] JxfgzosKBLHGR7616-09-00 09:44:005.18[facility] HermannDRUG SLRGPY6731-42-39 01:09:21Positive *ABN*(11/13/2013 20:09:21 [place])[facility]annDRUG SEUEDE8668-28-78 01:09:21See Note 5(11/13/2013 20:09:21 [place])[facility]annDRUG IXJDXJ1394-22-71 01:09:21Negative *NA*(11/13/2013 20:09:21 [place])[facility]annDRUG RQXRIT7208-62-55 01:09:21Positive *ABN*(11/13/2013 20:09:21 [place])[facility]annDRUG HLWHPP9546-56-21 01:09:21Positive *ABN*(11/13/2013 20:09:21 [place])[facility]annDRUG EQMYEW0680-58-07 01:09:21Negative *NA*(11/13/2013 20:09:21 [place]) [facility]annDRUG RBFZFR5964-87-97 01:09:21Negative *NA*(11/13/2013 20:09:21 [place])[facility]annDRUG VMZQAY9247-54-18 01:09:21Negative *NA*(11/13/2013 20:09:21 [place])[facility]annDRUG YOVKXP9401-36-39 01:09:21Negative *NA*(11/13/2013 20:09:21 [place])[facility]annDRUG KVHDVD7310-13-65 01:09:21Negative *NA*(11/13/2013 20:09:21 [place]) [facility] AND WGPRQ5919-84-94 01:09:002[facility]UR[facility] AND GQGAC4593-79-88 01:09:00Slight *ABN*(11/13/2013 20:09:00 [place]) [facility] GNCSG3189-71-89 01:09:00Yellow *NA*(11/13/2013 20:09:00 [place])[facility] AND PZEJT0821-19-04 01:09:006.5 [facility] TJQBO6795-15-34 01:09:001.024[facility]UR[facility] AND ZHIBI6960-87-87 01:09:00Negative (11/13/2013 20:09:00 [place])[facility] DIGSI2869-16-14 01:09:00Negative *NA*(11/13/2013 20:09:00 [facility] GFUEA6966-91-79 01:09:00Small *ABN*(11/13/2013 20:09:00 [place])[facility] STOOL 2013-11-14 01:09:00Negative (11/13/2013 20:09:00 [place])[facility] EWOIJ8533-89-78 01:09:003[facility]UR[facility] AND STOOL 2013-11-14 01:09:001[facility]annURINE RECH0147-79-09 01:09:00Negative (11/13/2013 20:09:00 [place])[facility]annCARDIAC DKJXIOK7159-16-91 19:43:00<0.010[facility]annCARDIAC VUAZCYO2492-47-11 19:43:00<0.02 [facility]annCARDIAC FQCDTVZ6412-44-85 19:43:12794Zqamwrrv HermannCARDIAC IQQHRMH1907-23-27 19:43:000.5[facility]annCARDIAC DHYVBHN7965-25-44 19:43:00 0.5[facility] HermannCHEM IQTMT8908-26-03 19:43:000.1[facility] HermannCHEM PANEL 2013-11-13 19:43:000.2[facility] HermannCHEM CNGNS3605-44-34 19:43:000.1[facility] HermannCHEM NOUWS4220-03-06 19:43:0024[facility] HermannCHEM CMHIT7183-95-46 19:43:000.9[facility]annCHEM UDVAZ7733-36-50 19:43:0040[facility]annCHEM SUOAT2876-77-65 19:43:006.4[facility]annCHEM TTHZB7134-05-40 19:43:003.0 [facility]annCHEM EQYGW2103-62-62 19:43:003.4[facility] HermannCHEM PANEL 2013-11-13 19:43:53139Uphiktpg HermannSPECIAL NZVSFHXAL8063-49-95 19:43:005.0 [facility] EvylhfjBMGSCJIXUA0594-07-74 09:29:0041.0[facility] HermannHEMATOLOGY 2013-11-13 09:29:0053.5[facility] IaivhxbNSKDFKIVOP1051-20-87 09:29:000.2[facility] LszfjyrFFXPKJLADZ8408-21-17 09:29:000.0[facility] BwaqaykGNUOCPQWRG2241-26-89 09:29:00 Test Item Value Reference Range Interpretation Comments PT (test code = PT) 24.2 s 12.0-14.7 [facility] SpuepdjHNKACXMWBZ8914-11-88 09:29:002.22[facility] HermannHEMATOLOGY 2013-11-13 09:29:00 Test Item Value Reference Range Interpretation Comments PTT (test code = PTT) 39.1 s 22.9-35.8 [facility] OfjwismHETTOOAVLM5803-93-66 09:29:82148Qhbxgqqt HermannHEMATOLOGY 2013-11-13 09:29:0017.1[facility] TpjovrdXGJHHEWRUC7118-83-28 09:29:007.0[facility] IxwklxdIPRFVQQLXQ5852-66-07 09:29:0033.7[facility] MozpbpwOXKQXGXGGB5406-05-08 09:29:00 Test Item Value Reference Range Interpretation Comments MCH (test code = MCH) 28.2 pg 27.0-31.0 [facility] HlohvetWSRSXWSBAK1532-03-03 09:29:004.35[facility] HermannHEMATOLOGY 2013-11-13 09:29:0011.4[facility] XcmdvchEGHGGXIOFR7286-46-36 09:29:0083.7[facility] ZclxeuaLFHYXPCOMS6220-37-53 09:29:0012.3[facility] RmosnnkGJNYOKXHBB3257-74-65 09:29:0036.4[facility] HermannCARDIAC GZIELKL6748-36-46 09:29:000.6[facility] HermannCARDIAC APXOEVU0766-62-97 09:29:00<0.02[facility] HermannCARDIAC ENZYMES 2013-11-13 09:29:000.6[facility] HermannCARDIAC GLHWJMI1738-41-42 09:29:03731 [facility]annCHEM CZYIE0973-96-08 09:29:0075[facility] HermannCHEM PANEL 2013-11-13 09:29:0013.1[facility] HermannCHEM TGNOY1165-86-91 09:29:0026[facility] HermannCHEM FQVQR6665-58-20 09:29:42366Mcbmgiqk HermannCHEM ROTFI9468-59-09 09:29:008.6[facility]annCHEM TMAFQ6994-27-24 09:29:000.9[facility] HermannCHEM VARFN8671-69-51 09:29:0012[facility] HermannCHEM NNMPM4777-07-68 09:29:004.1 [facility]annCHEM BXAYV0601-70-85 09:29:31565Sigydrxq HermannCHEM PANEL 2013-11-13 09:29:0081[facility] GpefuckXGUUNDTTJC8309-80-01 09:29:004.1[facility] YxxeczzEXKUZUCXSX0912-53-33 09:29:001.4[facility] AlesgevSOEAUXECAY0075-91-88 09:29:000.0[facility] NcpfghuMWCTOMRDPB1103-10-03 09:29:004.7[facility] LYSVKQFAHQ9536-22-37 09:29:006.0[facility] HusbjnzJZLKWBFWVE8218-28-55 09:29:000.5 [facility] VmnthsbCLVZNEOAN9304-82-68 07:35:0015.8[facility] HermannCHEMISTRY 2013-05-12 07:35:57174Qbqixobt OiodevvSYNFPTPCN3475-65-64 07:35:0023[facility] BvxudnfBQCFEIWOT5537-96-84 07:35:96020Cxcgxlyk EmimgeaERPGCYKOH2313-13-04 07:35:000.3[facility] ZgdlhslUZDFWYNBN2833-16-04 07:35:007.7[facility] DQKVVEXYW6631-65-66 07:35:005[facility] MhfrahrFZJANCLTV3986-29-62 07:35:0072 [facility] WsooqlmJKXERKPUN9493-28-08 07:35:93942Zyptqtpv HermannCHEMISTRY 2013-05-12 07:35:003.8[facility] IdnosskANUZKWEXWH2172-69-42 07:35:007.8[facility] ZueaxpiQLXGVHVOJS2016-10-44 07:35:003.5[facility] FswmkxlKGALBYIOZK5560-54-30 07:35:000.9[facility] TrtsvwtFOVLLZFTQE2085-96-41 07:35:000.3[facility] TFHVAVRFKX2086-96-73 07:35:000.1[facility] MuoayikJYTLXMEWSQ8822-16-47 07:35:007.4 [facility] XpzvwviWDEDQXRRWM9329-06-26 07:35:000.7[facility] HermannHEMATOLOGY 2013-05-12 07:35:0027.8[facility] EjvyakuCJNEVFIYAX2309-30-94 07:35:002.7[facility] WllakhmJYXCGLIDRO0956-79-65 07:35:0061.4[facility] GeynntaOWRZTVJSSV9756-16-38 07:35:0088.5[facility] VnqfunlWTAWCOGPRM9740-62-05 07:35:0015.2[facility] VXSMTNVNJH5233-93-60 07:35:0032.5[facility] KatevdzJOFIXUKREX4047-28-04 07:35:00 252[facility] XricfmkJMUKTYMSZK1408-10-78 07:35:007.7[facility] HermannHEMATOLOGY 2013-05-12 07:35:0012.8[facility] YpgejboIATZORRNIW2559-87-47 07:35:003.82[facility] ZxfjxsxPETQYFSPDG0213-39-67 07:35:0011.0[facility] EurmdblYHJYMOVMPJ6953-41-52 07:35:0033.8[facility] ZkmxqqjKELOLXFVUX5761-41-57 07:35:00 Test Item Value Reference Range Interpretation Comments MCH (test code = MCH) 28.8 pg 27.0-31.0 N [facility] JBHIZMK3593-26-96 11:52:0089[facility] LDSJWDMVW0720-61-79 07:00:00Negative (05/11/2013 02:00:00)[facility] XQIQIBCSE4442-72-76 07:00:00Negative (05/11/2013 02:00:00)[facility] UFQUOAUZL5143-91-08 07:00:00Negative (05/11/2013 02:00:00)[facility] CDJUPCRQH9337-17-88 07:00:00Negative (05/11/2013 02:00:00)[facility] MEOAUWVXV9294-50-15 07:00:00Positive *ABN*(05/11/2013 02:00:00)[facility] ZPQACMZLN8187-55-27 07:00:00See Note 12(05/11/2013 02:00:00)[facility] MZRNSGDEO0499-77-51 07:00:00Negative (05/11/2013 02:00:00)[facility] CQEIUJGIE9612-47-64 07:00:00Negative (05/11/2013 02:00:00)[facility] SPPEKIFXL4032-60-37 07:00:00Negative (05/11/2013 02:00:00)[facility] RSLSLGRTT3861-06-80 07:00:00Negative (05/11/2013 02:00:00)[facility] CUYQJUUJV3249-63-93 07:00:001.09[facility] HfqqchcCWEYEWZZT8483-76-18 07:00:001.07 [facility] OqxpgdhCWPPCYXPK8038-50-80 07:00:002.0[facility] HermannCHEMISTRY 2013-05-11 07:00:002.6[facility] YjmdsllDQTIDTKMT4631-86-28 07:00:17134Xhircaqs AsnjcluEJATGUULR0113-40-73 07:00:008.0[facility] YdkvqaoVDVWQNTJC1373-34-55 07:00:0017.7[facility] PpptyjjGPWMCDPPJ4942-39-42 07:00:007[facility] POIQWONMW6699-50-37 07:00:0059[facility] BpfhqksAIIQZEDLI2508-20-56 07:00:000.6 [facility] BrhzrqnFZTQHQJFG7499-21-40 07:00:59179Rklwjkvp HermannCHEMISTRY 2013-05-11 07:00:003.7[facility] AtftkncHCVIHCYWA1048-01-67 07:00:73883Aoeonpih NgezopuUIOOHZCXV6626-69-49 07:00:0021[facility] TfwwexjMUOLWYPND7917-94-15 07:00:00See Note 13(05/11/2013 02:00:00)[facility] TtgsvkqSKEBZANRVH0193-87-39 07:00:0017.2[facility] PaxbdohWMGWWRTQYO9233-78-61 07:00:04407[facility]ufjx [facility] WAVYWWPYWW4301-39-31 07:00:008.7[facility] QuigvzaUPGMWTHGRZ2876-27-16 07:00:00 88.4[facility] AbsqctxGVIXRCYJUW2583-73-67 07:00:00 Test Item Value Reference Range Interpretation Comments MCH (test code = MCH) 29.4 pg 27.0-31.0 N [facility] KcmltqeYRRGKTJAXI1477-41-86 07:00:0015.3[facility] HermannHEMATOLOGY 2013-05-11 07:00:0033.2[facility] GrjlumeIMKBUYXOTT9573-33-54 07:00:003.75[facility] PqrbzipXJZONABUAU9147-03-23 07:00:0011.0[facility] GwtuhheUSNAYDUKHA6506-15-01 07:00:0033.1[facility] DhzswaaBNIGXKTQWH1665-36-00 07:00:004.4[facility] BLBHKTMLMJ0160-12-28 07:00:0077.7[facility] BigydmlHNEHEBQJRH2376-49-92 07:00:00 0.8[facility] ZbrnqheQMDFRKIVUI2133-89-13 07:00:0013.4[facility] HermannHEMATOLOGY 2013-05-11 07:00:002.7[facility] OgdpynkTGDXVLPYUZ8208-25-65 07:00:000.8[facility] HhdxpxmNNSRVHGVRN3944-70-00 07:00:001.5[facility] JuprslnXKMMYVEIRY4662-93-53 07:00:0015.6[facility] JmaznunJUCBIABKUG4406-62-82 07:00:000.1[facility] SGCZWFKQIK3921-98-81 07:00:000.3[facility] HermannBEDSIDE GLUCOSE TESTING 2013-05-11 04:53:0079[facility] BazitrhCAPWKLSZEZ4954-80-67 23:12:11347Xbuinjgx NkniirdRZBYTSATYX5895-04-16 23:12:00Positive (05/10/2013 18:12:00)[facility] XshfyfsMKVVHTHTSJ8647-91-75 23:12:001.06[facility] NosoobmEEYMZKWFOC2523-13-74 23:12:0070[facility] DfpnodkLATOHYGCCV2257-08-29 23:12:00>100 mm/hr *ABN*(05/10/2013 18:12:00)[facility] GbrruykCQAOXJRYAF6584-64-84 23:12:0035 [facility] SguvuflPIALOBQSDV9920-29-07 23:12:0068[facility] HermannIMMUNOLOGY 2013-05-10 23:12:001[facility] SturfjrXJFSBTVAAG2728-01-21 23:12:001[facility] ZoglehcCEDULWXRLO7585-98-85 23:12:005.2[facility] LgedckqPWFUUKIBLG7337-28-05 23:12:0040[facility] UjweibbUHNHQOEKWU5011-49-03 23:12:53478Dmyoocsc [facility] LOJJDMVDMG5701-10-65 23:12:00Negative *NA*(05/10/2013 18:12:00)[facility] QLEXQJVWGP7477-61-62 23:12:00>190.0[facility] HermannBACTERIAL - SEROLOGY 2013-05-10 21:41:00Negative (05/10/2013 16:41:00)[facility]MI[facility] - TYLLOQTJ9221-07-38 21:41:00Negative 1(05/10/2013 16:41:00)[facility] BEDSIDE GLUCOSE ISQOCJJ3905-47-62 16:57:0096[facility] HyhlwcqPCCHUKXYTB6845-55-89 14:50:398[facility] MeuyibzVKTISEWEIN5501-02-62 14:50:39Few /LPF *NA*(05/10/2013 09:50:39)[facility] CampusMlkmzfqMAQUDSNRTL8413-99-87 14:50:39<1[facility] PTOJLJLWJI2142-85-79 14:50:39Few /LPF *NA*(05/10/2013 09:50:39)[facility] QJZSCJSKGP0777-16-47 14:50:39<1[facility] WwjytraAFMYGIILAB2536-78-38 14:50:39 Negative (05/10/2013 09:50:39)[facility] RzpwnssMUXSACRFPA4028-57-94 14:50:39 Negative (05/10/2013 09:50:39)[facility] EakvuobOZPBJRHATS8882-69-41 14:50:39 Negative (05/10/2013 09:50:39)[facility] NrewtjwLNKPZNUHRM8902-82-85 14:50:39 Negative mg/dL *NA*(05/10/2013 09:50:39)[facility] PhayzllWNRHVDCBFK9567-66-56 14:50:39Negative *NA*(05/10/2013 09:50:39)[facility] CampusHhvcnhtNNUICTFKNV5152-21-54 14:50:391.006[facility] ZzhrsfrIPUEQHLFYQ6640-00-26 14:50:39Clear (05/10/2013 09:50:39)[facility] CpmpcmvVWKBTBATCR6898-68-11 14:50:39Light Yellow *NA*(05/10/2013 09:50:39)[facility] TacudsnQCYTDCIORA6906-94-72 14:50:39Negative mg/dL (05/10/2013 09:50:39)[facility] TbxaxjkVAMPLDDGRB0703-15-97 14:50:397.5 [facility] ZogeellDTLKMUZJO2885-06-76 07:52:0087[facility] HermannCHEMISTRY 2013-05-10 07:52:10786Cczfxjhu YjzyrtyNWBRSVFOU7930-60-82 07:52:0014.6[facility] ZvawspwLXZWXQQFE5046-20-38 07:52:007.8[facility] XyitxsqTBDNDYFXJ8024-99-12 07:52:56928Xgvouhwl HqausscUNZGXEFIK2969-84-21 07:52:003.6[facility] IEREKSVQU5616-84-56 07:52:0024[facility] PomuiktIXGYNUATZ9791-06-43 07:52:000.8 [facility] AysmrwcWHJWYBCMY3181-07-26 07:52:007[facility] ZzxwjfyVHRUEASSS1871-10-73 07:52:0051[facility] GzbwrbeAQWOFEQBV0777-07-11 07:52:001.[facility] VHYKPGVZL2648-46-69 07:52:002.2[facility] NpzsmjlEJLKCZMRWW4007-29-38 07:52:00 Test Item Value Reference Range Interpretation Comments MCH (test code = MCH) 29.1 pg 27.0-31.0 N [facility] KkuntjwQLIRBMKUBM0346-92-67 07:52:0033.8[facility] HermannHEMATOLOGY 2013-05-10 07:52:0089.2[facility] MxredntWEQUWJLEWA3889-20-28 07:52:0011.0[facility] CymgsszRILROJIQVE3558-70-90 07:52:008.5[facility] PhathfuOVAJFSFGNJ9632-57-25 07:52:39087Boveheyl IqnopnjYQMCBLHMKT8527-58-80 07:52:0015.1[facility] OPBWBJPJHQ3170-21-55 07:52:0032.6[facility] InotcyuCFATCDJTTN7406-42-03 07:52:00 3.79[facility] PzmqnvgVSJFNWVAVC4645-84-93 07:52:0022.1[facility] HermannHEMATOLOGY 2013-05-10 07:52:000.1[facility] TrxeeoxPIHIGBMBOG2687-44-60 07:52:000.6[facility] ApoyduvCXTCJRGEVK7674-14-78 07:52:000.2[facility] EwoljdhOHNUYMDNOE5474-11-89 07:52:0083.0[facility] IywclxaWZTKPMSNKX9049-37-71 07:52:002.9[facility] YGCALNOTDR6059-33-00 07:52:0018.3[facility] MjjwzruQGMTRNCQAJ0182-66-07 07:52:00 0.4[facility] HsyititETGCWYJMZJ5382-93-54 07:52:001.0[facility] HermannHEMATOLOGY 2013-05-10 07:52:0012.9[facility] IxkpsmvQVWLBRYMRO5515-58-67 07:52:002.7[facility] DhvtpxjCUYGBBPXAH1286-18-46 19:56:0055[facility] EmwtlkxKAELHBPKAM5479-01-94 19:56:33832Yzkyulzf IvewfdfJSCEPPFUJI6221-09-21 19:56:19169Sorhpxxi [facility] VMHBTYTIHF1241-36-42 19:56:00Negative (05/09/2013 14:56:00)[facility] AJYDHHSZGX8916-40-98 19:56:00Negative (05/09/2013 14:56:00)[facility] IYGNQQVJHT4359-75-99 19:56:00Negative (05/09/2013 14:56:00)[facility] YKKYUXPLKP0896-90-03 19:56:00>190.0 mg/L 15(05/09/2013 14:56:00)[facility] HvvdenlWUVHKZVISG9131-80-67 19:56:00Negative (05/09/2013 14:56:00)[facility] FtxpfdvZUUBFSUMMD6051-20-57 19:56:0034[facility] XfnrvmvASPJBYVPN9874-25-43 16:10:242.3[facility] NgflxdkTDDCYHQOS9120-80-66 16:10:241.4[facility] ADAWFGVWX5371-56-73 16:10:191.8[facility] YxppacfHAMGIBWDW8805-73-56 10:34:0071 [facility] AlnkcxtIOJDICTWK3834-65-52 10:34:0036[facility] HermannCHEMISTRY 2013-05-09 10:34:70409Bahvtmaa ToywifbIKHTEATNR7596-75-10 10:34:31813Uidxirqr YlmhwfkWQQVJUKAH1310-80-79 10:34:003.67[facility] GlpnfwpSDZBQZIFG3674-62-95 10:34:004.9[facility] YgwcgjqZTEIGQQEU2968-43-46 00:11:00Negative *NA*(05/08/2013 19:11:00)[facility] UsdlqwnTWIAODYFG4170-77-19 00:11:00See Note 11(05/08/2013 19:11:00)[facility] UmbfsctQAQXLSMCT5450-76-46 00:11:00Positive *ABN*(05/08/2013 19:11:00)[facility] JgezexfHOXOZMDLF4661-45-91 00:11:00Negative *NA*(05/08/2013 19:11:00)[facility] ZxhppmgOKTQGCNOO1943-55-32 00:11:00Negative *NA*(05/08/2013 19:11:00)[facility] FzlrzpoMNOVMTUSV3392-59-88 00:11:00Negative *NA*(05/08/2013 19:11:00)[facility] QwlsvqlYGITUJPCO2706-81-50 00:11:00Negative *NA*(05/08/2013 19:11:00)[facility] NiiaxrqJYQMXMHJU0261-28-13 00:11:00Negative *NA*(05/08/2013 19:11:00)[facility] LlvuefvHGZCNBRND8706-13-15 00:11:0054[facility] HermannCHEMISTRY 2013-05-09 00:11:005.8[facility] MpwouauMAQSWQQZI4586-05-01 00:11:000.2[facility] LyaxbpjBDWWZUIFZ6257-19-89 00:11:002.8[facility] ZygnccqCQVSYAYCT1754-18-92 00:11:0095[facility] NigifiiXHNFAXEWH8292-14-25 00:11:0029[facility] ATJSZWHJE2735-56-85 00:11:000.9[facility] JrvzlfmAKXVZSUJP3407-07-59 00:11:0015 [facility] WixitdpYXYUVXIKU7655-81-21 00:11:003.0[facility] HermannURINALYSIS 2013-05-09 00:11:00Slight *ABN*(05/08/2013 19:11:00)[facility] HermannURINALYSIS 2013-05-09 00:11:001.013[facility] TtnpuffAVTRCFXFDG1662-67-45 00:11:00Small *ABN*(05/08/2013 19:11:00)[facility] BoetrdrRYTGEBBPJH3256-70-25 00:11:00Negative (05/08/2013 19:11:00)[facility] BjqcsgyIPIDRYIBTT6772-24-33 00:11:00Negative (05/08/2013 19:11:00)[facility] GlkboqkAPRCTGGFPR8553-22-91 00:11:005.0[facility] TccyazwPZCUFZNWFQ5606-86-50 00:11:0030 mg/dL *ABN*(05/08/2013 19:11:00)[facility] WptjfdsQCGDYMGYVO5263-44-41 00:11:00Negative mg/dL *NA*(05/08/2013 19:11:00) [facility] QsosqdcUTHGHNAIVX4968-55-33 00:11:00Yellow *NA*(05/08/2013 19:11:00) [facility] BpobjapVQMKGFOYZO2205-84-52 00:11:00Few /LPF *NA*(05/08/2013 19:11:00) [facility] CrxhpopNNEVMJKMGQ6343-92-82 00:11:001[facility] HermannURINALYSIS 2013-05-09 00:11:00Negative mg/dL *NA*(05/08/2013 19:11:00)[facility] HQFXYWWEZX9781-23-46 00:11:00Negative *NA*(05/08/2013 19:11:00)[facility] HOBTVMEEDX4730-00-05 00:11:00Few /LPF *NA*(05/08/2013 19:11:00)[facility] VCEYIHJUJS5492-75-41 00:11:00Occasional /HPF *NA*(05/08/2013 19:11:00)[facility] HermannBEDSIDE GLUCOSE VQFZTVD0633-36-75 12:28:0087[facility] HermannCHEMISTRY 2012-07-21 08:53:99768Daafjbek RvuzcjmBECBZPZUQ2741-66-83 08:53:0024[facility] RcotkvgSWZIWMOAS0434-62-58 08:53:25009Toxovlcy ByufkgcZEBNEGSIX3748-18-00 08:53:67303Ixukyqfw YnoohqqHPAJHPRRX0645-83-73 08:53:008.08[facility] FMEVIKATD0911-16-94 08:53:003.2[facility] RvdxmooLLQMJNSRG3290-01-02 08:53:001.9 [facility] JsplgzuLOTFJDQKR4443-76-71 08:53:0014.1[facility] HermannCHEMISTRY 2012-07-21 08:53:009[facility] ThcfhirOWPUTRFVB5750-24-88 08:53:0077[facility] MmbysmwTKUUPVLBL6137-88-50 08:53:84392Ifhmgcns ZvtzmhwZHLHRNCGC4925-97-10 08:53:57585Znfcekjn ZpohsvqESGWCVOJY2555-72-32 08:53:14838Favsasvi [facility] URECDYIIR9096-18-65 08:53:004.1[facility] YnpnykyKDPDGUPBS3011-26-38 08:53:000.7 [facility] ZkhkkfuENESXTXSO1072-00-74 08:53:0027[facility] HermannCHEMISTRY 2012-07-21 08:53:008.0[facility] QqvztxmTFTQTHPEQ5709-12-51 08:53:005.8[facility] StwockfWHZMLTYERY2402-64-77 08:53:006.8[facility] ZiixqgiUZXPFMHEPD6882-70-01 08:53:79660Qbfzjgsf KbbrjqrBEAIYZIJDR9252-15-83 08:53:0088.7[facility] JVKBYWKXOS2496-98-46 08:53:00 Test Item Value Reference Range Interpretation Comments MCH (test code = MCH) 29.4 pg 27.0-31.0 N [facility] AyflmhmQQAPGFCLEX4187-40-26 08:53:0033.1[facility] HermannHEMATOLOGY 2012-07-21 08:53:0015.0[facility] TzhprpyHDZSRBATIP0164-05-39 08:53:0038.4[facility] QddrmrlIDHOZOAYRX8842-41-12 08:53:004.34[facility] OrsrubnKSPPGCPADU7201-55-13 08:53:0012.7[facility] SfpmytxOKZDFDGOZV2050-17-88 08:53:0011.7[facility] YHOBXDRAAS8311-00-98 08:53:000.5[facility] AhmduycFRHTPOGFEJ3419-65-64 08:53:005.9 [facility] RqqwqdaCPANSUKUYF3959-98-06 08:53:006.0[facility] HermannHEMATOLOGY 2012-07-21 08:53:0041.5[facility] BfksjqgAOAHBOKQYN7884-42-86 08:53:001.9[facility] KqojzfpROPRTOUNGG9995-05-24 08:53:0050.1[facility] BqiyvebNJJLKHHXDW2719-76-96 08:53:000.7[facility] OlxzdchVPQTANYUBR4763-99-70 08:53:004.8[facility] USJMPWPJJZ3357-54-01 08:53:000.2[facility] QahtvewLQQHQWIWDO9854-01-84 08:53:000.1 [facility] HAGHZXY4536-95-76 02:50:14530Vgfwchkg [facility] DZYSZMVSTV0240-20-11 01:10:00Yellow *NA*(07/20/2012 19:10:00)[facility] YPVGDWLQPL4782-26-24 01:10:0020 mg/dL *ABN*(07/20/2012 19:10:00)[facility] GVOPRZTVNK2304-09-48 01:10:006.5[facility] CuyxeuqJEQUKQVXBM5499-42-28 01:10:00 Negative mg/dL *NA*(07/20/2012 19:10:00)[facility] XgkglsfCGEVCAMMKI5490-47-09 01:10:001.020[facility] EtqzurpYGGBSATKPL3921-56-35 01:10:00Slight *ABN*(07/20/2012 19:10:00)[facility] YtdnuxkYUXWECYMNO8186-17-87 01:10:00Negative (07/20/2012 19:10:00)[facility] CqzczjsLMLMOUZYAH8293-60-96 01:10:00Trace *ABN*(07/20/2012 19:10:00)[facility] CakoqtjWRUASZRXQZ4917-35-47 01:10:00Many /LPF *ABN*(07/20/2012 19:10:00)[facility] DuhspifWVUJAPELCV4304-88-82 01:10:00Small *ABN*(07/20/2012 19:10:00)[facility] IupmwbxYVRSFFCBDE5936-18-03 01:10:00Negative *NA*(07/20/2012 19:10:00)[facility] TxmfrtyGPRWVDIVOL7388-05-80 01:10:00Occasional /HPF *NA*(07/20/2012 19:10:00)[facility] PwondkmXLNMUBWVGX0042-86-80 01:10:00Few /LPF *NA*(07/20/2012 19:10:00)[facility] SwavokpFQADGXPCRQ9936-95-86 01:10:00Few /HPF *NA*(07/20/2012 19:10:00)[facility] QmituxyOEZQISHZJU1789-39-90 01:10:001 [facility] MisnrocCRHHFARNUO4686-01-67 01:10:006[facility]annURINALYSIS 2012-07-21 01:10:001[facility] HermannBEDSIDE GLUCOSE EUGSXSR5750-42-35 12:05:0086 [facility] YcpycsnTXMSWLYHG0830-78-39 08:50:0014.7[facility]annCHEMISTRY 2012-07-20 08:50:0088[facility] JdkiadbHMZSDYLMB1574-72-10 08:50:0077[facility] SvtxiwtATVEOHNSX5591-70-99 08:50:0013[facility] OdislbtWDJWNUGIA9829-03-51 08:50:000.8[facility] FvjybbrEFFGZADRS1122-82-09 08:50:83376Cyeemfbb [place] MEAASWLXE2126-82-60 08:50:003.7[facility] HgcutfvOZQNXNWAR6661-74-48 08:50:0097 [facility] KmdthehGXDEAWESK5146-89-68 08:50:0029[facility]annCHEMISTRY 2012-07-20 08:50:008.3[facility] EmzyemkFEBEUDDTIV1305-47-54 08:50:000.7[facility] LdsmomqPKBODVBVRO2414-38-10 08:50:004.3[facility] HronfzbSBOXLKOZHD3949-04-19 08:50:006.9[facility] LoaekwcWLIPQSZEGJ2469-08-06 08:50:000.8[facility] IBHPDDNCVV3400-99-18 08:50:001.2[facility] HbwpayhOFVMNKKBPN0363-79-36 08:50:000.1 [facility] GkmtdoeEBLYYOCIBC9670-33-99 08:50:000.1[facility]annHEMATOLOGY 2012-07-20 08:50:005.6[facility] OfppuwtRTJWPUAEDB7405-95-70 08:50:0035.7[facility] PmfjirsMHOYMOOWCX3454-29-19 08:50:0056.7[facility] DcgyptnTMUVZMIGPV5185-04-88 08:50:0088.3[facility] DkvrblqPIEGCEGSDF6439-41-00 08:50:0041.1[facility] CMYQPIYVPN0955-93-60 08:50:0013.7[facility] FhxeajfZEGCRHFAPP4900-20-50 08:50:00 4.66[facility] LkgclhdNNPMNGCHPP7819-35-09 08:50:0012.2[facility]annHEMATOLOGY 2012-07-20 08:50:006.8[facility] MtibhjjXQLSEIXZTD9996-24-93 08:50:32017Uhwprzck FetgsluSWNQUECMIA4324-98-04 08:50:0015.6[facility] DpbfapvPBTNXTSFVT8087-19-57 08:50:0033.3[facility] GckykrnQBKVNTJSSA3485-62-41 08:50:00 Test Item Value Reference Range Interpretation Comments MCH (test code = MCH) 29.4 pg 27.0-31.0 N [facility] ZSCOZXL7980-65-49 13:30:00Negative (07/19/2012 07:30:00)[facility] DyzzlrpWZAKQKWPU4699-90-44 13:30:0062[facility]annCHEMISTRY 2012-07-19 13:30:0067[facility] HsgfjwsIFUCKICMX1147-21-96 13:30:0030[facility] MklrqbuXVVRWSDVD1155-91-26 13:30:008.8[facility] KormxxfAPDJQKIDU5929-79-23 13:30:0012[facility] PakeljlKSNYCSSDH3713-87-55 13:30:001.0[facility] MCORYRRPX6375-54-01 13:30:75729Jfntfxkx XqszxerDICMVKZSC7534-71-19 13:30:004.1 [facility] FharmevQUVLRQQKX4840-29-85 13:30:0099[facility]annCHEMISTRY 2012-07-19 13:30:94169Jwbkpbtg StpqnxbWHVFUJFFF9972-92-20 13:30:0013.1[facility] EgzceitUWKFMTPCD4570-63-73 13:30:00<0.02[facility] MvhydumTZQOIXFONE0560-88-02 13:30:001+ *ABN*(07/19/2012 07:30:00)[facility] MxehnxxBMTHCOKEWQ9899-86-47 13:30:000.0[facility] RwijnzoNEAIDFCALK3763-98-60 13:30:00Slight *ABN*(07/19/2012 07:30:00)[facility] WwtgaznFEPJUBECIL2182-16-49 13:30:00Slight (07/19/2012 07:30:00)[facility] HbodazuMUMMDPHDGX7427-84-70 13:30:000.0[facility] ZFXGSIGOVD1812-04-13 13:30:004.0[facility] IewhikiTJRYLTPDJI6230-98-17 13:30:00 30.0[facility] YhtqnrbSUYZJWAVKJ0220-40-80 13:30:001.0[facility]annHEMATOLOGY 2012-07-19 13:30:005.4[facility] FavuadoQCDIHHCXQZ7353-70-56 13:30:0011.8[facility] KfomxacHUZMZNMJCT7388-28-23 13:30:000.2[facility] CcznwukPGVPKSKALC5588-01-82 13:30:000.7[facility] XrnqdfvNWMEKEJLQZ4819-84-60 13:30:0065.0[facility] LPYFAVELIF0598-51-50 13:30:000.97[facility] NysftjvCJVFQTDCMU3486-65-59 13:30:00 Test Item Value Reference Range Interpretation Comments PT (test code = PT) 13.1 s 12.0-14.7 N [facility] CampusAzloqbgLGFYHZFEEC9257-78-00 13:30:004.1[facility]annHEMATOLOGY 2012-07-19 13:30:00 Test Item Value Reference Range Interpretation Comments ACT (TEG) (test code = ACT (TEG)) 113 s 86-118 N [facility] CampusUbikytmVICBDRENOJ5494-62-24 13:30:00 Test Item Value Reference Range Interpretation Comments Split Point (test code = Split Point) 0.6 min [facility] CampusYyncmjcCUDQYTBSVP4444-90-90 13:30:00 Test Item Value Reference Range Interpretation Comments Angle (test code = Angle) 82 degrees 64-80 H [facility] CampusFdspafdROXYMIZDOR0208-95-96 13:30:00 Test Item Value Reference Range Interpretation Comments Max Amp (test code = Max Amp) 81 mm 52-71 H [facility] CampusKteggplBYMNQKPIUI6650-64-23 13:30:00 Test Item Value Reference Range Interpretation Comments K-time (test code = K-time) 0.8 min 0.6-2.3 N [facility] CampusKoswuzeBVCJOOOHWN6773-68-94 13:30:0020.9[facility]annHEMATOLOGY 2012-07-19 13:30:00 Test Item Value Reference Range Interpretation Comments R-time (test code = R-time) 0.7 min 0.4-0.7 N [facility] CampusKiqtauwRALOHWXMWM8805-95-41 13:30:00 Test Item Value Reference Range Interpretation Comments PTT (test code = PTT) 32.1 s 22.9-35.8 N [facility] QmpodywREKOUQYQLC0694-83-28 13:30:0015.0[facility]annHEMATOLOGY 2012-07-19 13:30:005.06[facility] LxbfwiqDAVTZINMAV6387-25-48 13:30:0014.8[facility] CbpihaiCNEQQINEKH5739-40-48 13:30:0033.3[facility] OmkzmjeEAJWQWYLHJ9133-35-48 13:30:0018.1[facility] OabhgcbSVRHIHFTIA8662-88-84 13:30:0044.9[facility] JXLHMTGPZS4132-82-72 13:30:007.1[facility] HvskyfvYLAAJHGOEQ6505-24-00 13:30:00 Test Item Value Reference Range Interpretation Comments MCH (test code = MCH) 29.5 pg 27.0-31.0 N [facility] BwbbeukSBHELQTXWT8096-38-33 13:30:0088.8[facility] HermannHEMATOLOGY 2012-07-19 13:30:44679Jwqmiasx Cabrera
[2020-10-23 21:50] LABS: Absolute Lymphocytes (CBC) 4.8 K/uL (0.7-4.9); Basophils % 0.8 % (0-1.3); Hematocrit 31.3 % (36.0-45.0); Lymphocytes % 36.9 % (15.3-44.8); MPV 7.1 fL (7.6-11.3); RBC Red Blood Cell Count 3.78 M/uL (3.86-4.86)
[2020-10-23 21:51] LABS: Protime INR 1.13
--- NOTE | 2020-10-23 21:54 | RAD REPORT ---
EXAM DESCRIPTION: RAD - Chest Single View - 10/23/2020 9:15 pm CLINICAL HISTORY: CHEST PAIN Chest pain. COMPARISON: Chest Single View dated 09/13/2020; Chest Single View dated 07/10/2020; Chest Single View dated 05/26/2020; Chest Single View dated 04/18/2020 FINDINGS: Portable technique limits examination quality. The lungs are grossly clear. The heart is normal in size. No displaced fractures.Sternotomy wires. IMPRESSION: No acute intrathoracic process suspected.
[2020-10-23 21:55] LABS: ALT/SGPT 86 U/L (12-78); AST/SGOT 30 U/L (15-37); Albumin 2.8 g/dL (3.4-5.0); Alkaline Phosphatase 224 U/L (45-117); BUN Blood Urea Nitrogen 12 mg/dL (7-18); Bicarbonate 31 mmol/L (21-32); Bilirubin Direct < 0.1 mg/dL (0-0.2); Bilirubin Total 0.2 mg/dL (0.2-1.0); Glucose Level 99 mg/dL (74-106); Magnesium 2.1 mg/dL (1.8-2.4); NT PRO-BNP 408 pg/mL (<125); Potassium 3.9 mmol/L (3.5-5.1); Protein, Total 6.5 g/dL (6.4-8.2); Sodium Level 145 mmol/L (136-145); Troponin (Emerg Dept Use Only) 0.02 ng/mL (0.0-0.045)
[2020-10-23] MEDS ORDERED: FENTANYL CITR 100 MCG/2 ML ONE (22:31)
--- NOTE | 2020-10-23 22:45 | EDPHYS ---
Physician Documentation [facility] Name: Kathy Whyte Age: 55 yrs Sex: Female : 1965 Arrival Date: 10/23/2020 Time: 20:38 Bed 14 Private MD: ED Physician Lionel Rodrigez HPI: 10/23 22:41 This 55 yrs old Female presents to ER via EMS with complaints of Chest Pain. jr8 22:41 The patient or guardian reports chest pain that is located primarily in the substernal jr8 area. Onset: acutely, today. The pain radiates to the left shoulder. Associated signs and symptoms: The patient has no apparent associated signs or symptoms. The chest pain is described as a pressure. Duration: The patient or guardian reports multiple episodes. Modifying factors: The symptoms are alleviated by NTG, X2. Severity of pain: At its worst the pain was moderate in the emergency department the pain is unchanged. The patient has experienced similar episodes in the past, a few times. The patient has not recently seen a physician. Patient stated that she started with chest pain this morning. Had taken nitro which relieved it. Had two other episodes this afternoon and tonight. Could not get the pain to go away tonight which is why she came in. Patient with cardiac stents and bypass history . Historical: - Allergies: 20:38 Compazine; jb4 20:38 Demerol; jb4 20:38 Morphine; jb4 20:38 Neurontin; jb4 20:38 NSAIDS; jb4 20:38 Stadol; jb4 20:38 Toradol; jb4 - Home Meds: 20:38 bupropion HCl 200 mg Oral TbER 1 tab 2 times per day [Active]; carvedilol 12.5 mg Oral jb4 tab 1 tab 2 times per day [Active]; Eliquis Oral [Active]; lisinopril 20 mg Oral tab [Active]; methocarbamol 750 mg Oral tab 1 tab every 4 hours [Active]; Risperdal 1 mg Oral tab 1 tab 2 times per day [Active]; sertraline 100 mg Oral tab 1 tab once daily [Active]; topiramate 25 mg Oral CSpX 1 cap once daily [Active]; triazolam 0.25 mg Oral tab 2 tabs once daily [Active]; - PMHx: 20:38 Anxiety; CVA; Depression; Hypertension; High Cholesterol; Myocardial infarction; jb4 Seizures; - PSHx: 20:38 Cholecystectomy; Heart stents; Appendectomy; CABG; Hysterectomy; jb4 - Immunization history:: Adult Immunizations up to date. - Social history:: Smoking status: Patient denies any tobacco usage or history of. ROS: 22:41 Eyes: Negative for injury, pain, redness, and discharge, ENT: Negative for injury, jr8 pain, and discharge, Neck: Negative for injury, pain, and swelling, Respiratory: Negative for shortness of breath, cough, wheezing, and pleuritic chest pain, Abdomen/GI: Negative for abdominal pain, nausea, vomiting, diarrhea, and constipation, Back: Negative for injury and pain, MS/Extremity: Negative for injury and deformity, Skin: Negative for injury, rash, and discoloration, Neuro: Negative for headache, weakness, numbness, tingling, and seizure. 22:41 Cardiovascular: Positive for chest pain, Negative for edema, orthopnea, palpitations, paroxysmal nocturnal dyspnea. Exam: 22:41 Constitutional: This is a well developed, well nourished patient who is awake, alert, jr8 and in no acute distress. ENT: Nares patent. No nasal discharge, no septal abnormalities noted. Tympanic membranes are normal and external auditory canals are clear. Oropharynx with no redness, swelling, or masses, exudates, or evidence of obstruction, uvula midline. Mucous membranes moist. Neck: Trachea midline, no thyromegaly or masses palpated, and no cervical lymphadenopathy. Supple, full range of motion without nuchal rigidity, or vertebral point tenderness. No Meningismus. Cardiovascular: Regular rate and rhythm with a normal S1 and S2. No gallops, murmurs, or rubs. Normal PMI, no JVD. No pulse deficits. Respiratory: Lungs have equal breath sounds bilaterally, clear to auscultation and percussion. No rales, rhonchi or wheezes noted. No increased work of breathing, no retractions or nasal flaring. Abdomen/GI: Soft, non-tender, with normal bowel sounds. No distension or tympany. No guarding or rebound. No evidence of tenderness throughout. Back: No spinal tenderness. No costovertebral tenderness. Full range of motion. Skin: Warm, dry with normal turgor. Normal color with no rashes, no lesions, and no evidence of cellulitis. MS/ Extremity: Pulses equal, no cyanosis. Neurovascular intact. Full, normal range of motion. Neuro: Awake and alert, GCS 15, oriented to person, place, time, and situation. Cranial nerves II-XII grossly intact. Motor strength 5/5 in all extremities. Sensory grossly intact. Cerebellar exam normal. Normal gait. Vital Signs: 20:38 BP 137 / 63; Pulse 65; Resp 16; Temp 98.7(O); Pulse Ox 100% on R/A; Weight 69.4 kg (R); jb4 Height 5 ft. 3 in. (160.02 cm); Pain 9/10; 22:00 BP 124 / 58; Pulse 64; Resp 15; Pulse Ox 100% on R/A; jb4 20:38 Body Mass Index 27.10 (69.40 kg, 160.02 cm) jb4 MDM: 21:00 Patient medically screened. myra 22:41 The patient was not given aspirin in the Emergency Department. Not indicated due to [facility] patient's past medical history. Data reviewed: vital signs, nurses notes, lab test result(s), EKG, radiologic studies, plain films. Data interpreted: Pulse oximetry: on room air is 100 %. Interpretation: normal. Counseling: I had a detailed discussion with the patient and/or guardian regarding: the historical points, exam findings, and any diagnostic results supporting the discharge/admit diagnosis, lab results, radiology results, the need for further work-up and treatment in the hospital. 10/23 21:00 Order name: Basic Metabolic Panel [facility] 10/23 21:00 Order name: CBC with Diff [facility] 10/23 21:00 Order name: LFT's [facility] 10/23 21:00 Order name: Magnesium [facility] 10/23 21:00 Order name: NT PRO-BNP [facility] 10/23 21:00 Order name: PT-INR [facility] 10/23 21:00 Order name: Troponin (emerg Dept Use Only) [facility] 10/23 21:00 Order name: Basic Metabolic Panel; Complete Time: 22:03 EDMS 10/23 21:00 Order name: CBC with Automated Diff; Complete Time: 22:03 EDMS 10/23 21:00 Order name: Liver (Hepatic) Function; Complete Time: 22:03 EDMS 10/23 21:01 Order name: Magnesium; Complete Time: 22:03 [facility] 10/23 21:01 Order name: NT PRO-BNP; Complete Time: 22:03 [facility] 10/23 21:01 Order name: Protime (+INR); Complete Time: 22:03 [facility] 10/23 21:01 Order name: Troponin (Emerg Dept Use Only); Complete Time: 22:03 [facility] 10/23 21:00 Order name: XRAY Chest (1 view); Complete Time: 22:03 [facility] 10/23 21:00 Order name: EKG; Complete Time: 21: [facility] 10/23 21:00 Order name: Cardiac monitoring; Complete Time: 21: [facility] 10/23 21:00 Order name: EKG - Nurse/Tech; Complete Time: 21: [facility] 10/23 21:00 Order name: IV Saline Lock; Complete Time: 21:33 [facility] 10/23 21:00 Order name: Labs collected and sent; Complete Time: 21:33 [facility] 10/23 21:00 Order name: O2 Per Protocol; Complete Time: 21: [facility] 10/23 21:00 Order name: O2 Sat Monitoring; Complete Time: 21: [facility] 10/23 23:12 Order name: COVID-19 : Document "Date of Symptom Onset" if Symptomatic. [facility] 10/23 23:44 Order name: CONS Physician Consult [facility] 10/24 00:54 Order name: SARS-COV-2 RT PCR; Complete Time: 00:59 EDSD 10/24 04:41 Order name: Troponin I EDSD Administered Medications: 22:19 Drug: fentaNYL (PF) 50 mcg Route: IVP; Site: right jugular; jb4 Disposition: 10/24 06:44 Co-signature as Attending Physician, Lionel Rodrigez MD I agree with the assessment and myra plan of care. Disposition: 10/23/20 22:44 Hospitalization ordered by Stiven Willis for Observation. Preliminary diagnosis is Chest pain, unspecified. - Bed requested for Telemetry/MedSurg (observation). - Status is Observation. ar5 - Condition is Stable. - Problem is new. - Symptoms are unchanged. Signatures: Dispatcher [employer] [facility] Lionel Rodrigez MD MD cha Roszak, Josh, PA PA jr8 Roshan, MaddiPRASHANT smiley RN, James, RN RN [email or web address] Bernarda Murry ar5 Corrections: (The following items were deleted from the chart) 10/23 23:53 22:44 Hospitalization Ordered by Stiven Willis for Observation. Preliminary diagnosis cg is Chest pain, unspecified. Bed requested for Telemetry/MedSurg (observation). Status is Observation. Condition is Stable. Problem is new. Symptoms are unchanged. jr8 10/24 02:58 10/23 23:53 10/23/2020 22:44 Hospitalization Ordered by Stiven Willis for Observation. cg Preliminary diagnosis is Chest pain, unspecified. Bed requested for [facility] ER HOLD. Status is Observation. Condition is Stable. Problem is new. Symptoms are unchanged. cg 10/24 04:51 02:58 10/23/2020 22:44 Hospitalization Ordered by Stiven Willis for Observation. ar5 Preliminary diagnosis is Chest pain, unspecified. Bed requested for Telemetry/MedSurg (observation). Status is Observation. Condition is Stable. Problem is new. Symptoms are unchanged. cg
--- NOTE | 2020-10-23 22:45 | ER ---
Nurse's Notes [facility] Name: Kathy Whyte Age: 55 yrs Sex: Female : 1965 Arrival Date: 10/23/2020 Time: 20:38 Bed 14 Private MD: Diagnosis: Chest pain, unspecified Presentation: 10/23 20:38 Chief complaint: EMS states: Pt reports chest pain that has been on going for 24 hrs. jb4 She took 2 of her own nitro and was given 1 by us. She reports that the pain radiates to her left arm. 20:38 Coronavirus screen: Client denies travel out of the [place] in the last 14 days. At this jb4 time, the client does not indicate any symptoms associated with coronavirus-19. Ebola Screen: No symptoms or risks identified at this time. Initial Sepsis Screen: Does the patient meet any 2 criteria? No. Patient's initial sepsis screen is negative. Does the patient have a suspected source of infection? No. Patient's initial sepsis screen is negative. Risk Assessment: Do you want to hurt yourself or someone else? Patient reports no desire to harm self or others. Onset of symptoms was October 22, 2020. Transition of care: patient was not received from another setting of care. 20:38 Method Of Arrival: EMS: [facility] jb4 20:38 Acuity: ARI 3 jb4 Historical: - Allergies: 20:38 Compazine; jb4 20:38 Demerol; jb4 20:38 Morphine; jb4 20:38 Neurontin; jb4 20:38 NSAIDS; jb4 20:38 Stadol; jb4 20:38 Toradol; jb4 - Home Meds: 20:38 bupropion HCl 200 mg Oral TbER 1 tab 2 times per day [Active]; carvedilol 12.5 mg Oral jb4 tab 1 tab 2 times per day [Active]; Eliquis Oral [Active]; lisinopril 20 mg Oral tab [Active]; methocarbamol 750 mg Oral tab 1 tab every 4 hours [Active]; Risperdal 1 mg Oral tab 1 tab 2 times per day [Active]; sertraline 100 mg Oral tab 1 tab once daily [Active]; topiramate 25 mg Oral CSpX 1 cap once daily [Active]; triazolam 0.25 mg Oral tab 2 tabs once daily [Active]; - PMHx: 20:38 Anxiety; CVA; Depression; Hypertension; High Cholesterol; Myocardial infarction; jb4 Seizures; - PSHx: 20:38 Cholecystectomy; Heart stents; Appendectomy; CABG; Hysterectomy; jb4 - Immunization history:: Adult Immunizations up to date. - Social history:: Smoking status: Patient denies any tobacco usage or history of. Screenin:38 Abuse screen: Denies threats or abuse. Nutritional screening: No deficits noted. jb4 Tuberculosis screening: No symptoms or risk factors identified. Fall Risk None identified. Assessment: 20:38 General: Appears in no apparent distress. uncomfortable, Behavior is calm, cooperative, jb4 appropriate for age. Pain: Complains of pain in chest Pain radiates to left arm Pain currently is 9 out of 10 on a pain scale. Quality of pain is described as aching, Pain began 1 day ago. Neuro: Level of Consciousness is awake, alert, obeys commands, Oriented to person, place, time, situation, PT reports prior deficits from previous CVA, left facial droop and loss of feeling on the left side w/ weakness. Cardiovascular: Patient's skin is warm and dry. Rhythm is sinus rhythm. Respiratory: Airway is patent Respiratory effort is even, unlabored, Respiratory pattern is regular, symmetrical. GI: No signs and/or symptoms were reported involving the gastrointestinal system. : No signs and/or symptoms were reported regarding the genitourinary system. EENT: No signs and/or symptoms were reported regarding the EENT system. Derm: Skin is intact, Skin is pink, warm \T\ dry. Musculoskeletal: Circulation, motion, and sensation intact. Range of motion: intact in all extremities. 21:30 Reassessment: Patient appears in no apparent distress at this time. Patient and/or jb4 family updated on plan of care and expected duration. Pain level reassessed. Patient is alert, oriented x 3, equal unlabored respirations, skin warm/dry/pink. 22:30 Reassessment: Patient appears in no apparent distress at this time. Patient and/or jb4 family updated on plan of care and expected duration. Pain level reassessed. Patient is alert, oriented x 3, equal unlabored respirations, skin warm/dry/pink. Patient states feeling better. Vital Signs: 20:38 BP 137 / 63; Pulse 65; Resp 16; Temp 98.7(O); Pulse Ox 100% on R/A; Weight 69.4 kg (R); jb4 Height 5 ft. 3 in. (160.02 cm); Pain 9/10; 22:00 BP 124 / 58; Pulse 64; Resp 15; Pulse Ox 100% on R/A; jb4 20:38 Body Mass Index 27.10 (69.40 kg, 160.02 cm) jb4 ED Course: 20:38 Patient arrived in ED. cf2 20:38 Arm band placed on right wrist. jb4 20:38 Patient has correct armband on for positive identification. Bed in low position. Call jb4 light in reach. Side rails up X 1. night monitor on. Pulse ox on. NIBP on. 20:38 Patient maintains SpO2 saturation greater than 95% on room air. jb4 20:54 Jayesh Rider, RN is Primary Nurse. jb4 20:58 Triage completed. jb4 20:59 Mike Mari PA is PHCP. jr8 20:59 Lionel Rodrigez MD is Attending Physician. jr8 21:15 XRAY Chest (1 view) In Process Unspecified. EDMS 22:44 Stiven Willis is Hospitalizing Provider. jr8 23:53 No provider procedures requiring assistance completed. COVID swab sent to lab. mg2 Administered Medications: 22:19 Drug: fentaNYL (PF) 50 mcg Route: IVP; Site: right jugular; jb4 Outcome: 22:44 Decision to Hospitalize by Provider. jr8 10/24 04:51 Patient left the ED. ar5 Signatures: Dispatcher [employer] EDMS Mike Mari PA PA jr8 Jayesh Rider RN RN jb4 Jay Palacios RN RN mg2 Robles, Autumn ar5 Trudi Tanner cf2
--- NOTE | 2020-10-24 00:16 | P.HP ---
Certification for Inpatient Patient admitted to: Observation With expected LOS: <2 Midnights Patient will require the following post-hospital care: None Practitioner: I am a practitioner with admitting privileges, knowledge of patient current condition, hospital course, and medical plan of care. Services: Services provided to patient in accordance with Admission requirements found in Title 42 Section 412.3 of the Code of Federal Regulations <Anish Pedroza - Last Filed: 10/24/20 01:54> Patient History Date of Service: 10/24/20 Primary Care Provider: Dr. Burton Reason for admission: chest pain rule out History of Present Illness: Ms. Whyte is a 55yo F with h/o of CVA and AL s/p CABG and stents, documented antiphospholipid syndrome, HLD, HTN, seizures, anxiety and depression here today for 7/10 squeezing chest pain radiating down her left arm. She had two similar episodes earlier today and yesterday. The first episode occurred at night and was accompanied by dizziness, relieved with NTG and lying down. The second episode woke her up from sleep and was relieved with NTG. This current episode was not relieved with NTG or Tylenol 3s. She reports nausea and vomiting. Denies night sweats and chills. She says the pain feels similar to when she had a heart attack last year. Initial troponins, CXR normal. EKG without ischemic findings. BNP 408. alk phos 224. Hgb/Hct 10.7/31.3, WBC 12.9, Plt 109. Home medications list reviewed: No - Past Medical/Surgical History Has patient received pneumonia vaccine in the past: No Diabetic: No -: HTN -: Hyperlipidemia -: History of CVA/TIA 2011 -: Antiphospholipid syndrome -: BLood clot (left forearm 09/2019) -: Depression -: Former Tobacco abuse -: Chronic pain -: Migraines, complex/complicated/mixed, acute headache -: GERD -: h/o of AL 09/2019 and 12/2019 s/p CABG at [facility] and stent -: acute headache -: Choleycystectomy -: Appendectomy -: Hysterectomy/left ovary removed -: (R) ankle/foot sx -: bilateral feet surgery-with plates and screws -: tonsillectomy -: November 2013 destinee cath placement, removed -: CABG (06/2019) Psychosocial/ Personal History: . Lives at home. - Family History Mother -: Hypertension, Diabetes Father -: Hypertension, Stroke - Social History Smoking Status: Never smoker Alcohol use: No CD- Drugs: Yes Caffeine use: No Place of Residence: Home <Lupe Pedrozadavon Mahan - Last Filed: 10/24/20 01:54> Date of Service: 10/24/20 <deonlorenza - Last Filed: 10/24/20 12:25> Allergies butorphanol tartrate [From Stadol] Allergy (Intermediate, Verified 12/06/15 00:35) angry gabapentin [From Neurontin] Allergy (Intermediate, Verified 12/06/15 00:35) Blurred vision prochlorperazine [Prochlorperazine] Allergy (Mild, Verified 12/06/15 00:35) Rash prochlorperazine edisylate [From Compazine] Allergy (Verified 12/06/15 00:35) Unknown ketorolac tromethamine [From Toradol] Adverse Reaction (Intermediate, Verified 12/06/15 00:35) anxiety prochlorperazine maleate [From Compazine] Adverse Reaction (Intermediate, Verified 12/06/15 00:35) Hives NSAIDS (Non-Steroidal Anti-Inflamma Adverse Reaction (Mild, Verified 12/06/15 00:35) Nausea/Vomiting Home Medications: Albuterol Sulfate [Proair Hfa] 2 puff IH DAILYPRN PRN 01/20/20 Apixaban [Eliquis *] 5 mg PO BID 01/20/20 Budesonide/Formoterol Fumarate [Symbicort 160-4.5 Mcg Inhaler] 2 puff IH BIDP PRN 01/20/20 Codeine/APAP [Tylenol #3*] 1 tab PO TIDP PRN 01/20/20 Furosemide [Lasix*] 1 tab PO DAILYPRN PRN 01/20/20 LORazepam [Lorazepam] 1 tab PO BID 01/20/20 Metoprolol Tartrate [Lopressor*] 1 tab PO BID PRN 01/20/20 Potassium Chloride [K-Dur] 1 tab PO DAILY 01/20/20 Promethazine Tab [Phenergan*] 1 tab PO BIDP PRN 01/20/20 Sertraline [Zoloft*] 100 tab PO BID 01/20/20 Topiramate [Topamax*] 50 mg PO BID 01/20/20 Zolpidem Tartrate [Ambien*] 10 mg PO BEDTIME 01/20/20 buPROPion HCL [Wellbutrin*] 200 mg PO BID 01/20/20 hydrOXYzine HCL [Atarax] 1 tab PO BID 01/20/20 hydrOXYzine HCL [Atarax] 100 mg PO BEDTIME 01/20/20 methocarbamoL [Methocarbamol] 1 tab PO BID 01/20/20 Atorvastatin Calcium [Lipitor] 1 tab PO BEDTIME #30 tab 01/25/20 Clopidogrel Bisulfate [Plavix*] 75 mg PO DAILY #30 tablet 01/25/20 Omeprazole 40 mg PO DAILY 04/18/20 Review of Systems General: Unremarkable Eyes: Unremarkable ENT: Unremarkable Respiratory: Unremarkable Cardiovascular: Chest Pain, Palpitations, As per HPI Gastrointestinal: Nausea, Vomiting, As per HPI Musculoskeletal: Unremarkable Integumentary: Unremarkable Neurological: Unremarkable Lymphatics: Unremarkable <Anish Pedroza S - Last Filed: 10/24/20 01:54> Physical Examination - Vital Signs Temperature: 98.7 F Blood Pressure: 137/63 Pulse: 65 Respirations: 16 Pulse Ox (%): 100 - Physical Exam General: Alert, In no apparent distress, Oriented x3, Cooperative HEENT: Atraumatic, Normocephalic, PERRLA, Mucous membr. moist/pink, EOMI, Sclerae nonicteric Neck: Supple, 2+ carotid pulse no bruit, JVD not distended, No Thyromegaly, No LAD Respiratory: Clear to auscultation bilaterally, Normal air movement Cardiovascular: No edema, Normal pulses, Regular rate/rhythm, Normal S1 S2, No gallops, No rubs, No murmurs Capillary refill: <2 Seconds Gastrointestinal: Normal bowel sounds, Soft and benign, Non-distended, No ascites, No tenderness, No masses, No rebound, No guarding Musculoskeletal: No clubbing, No swelling, No contractures, No erythema, No tenderness, No warmth Integumentary: No rashes, No breakdown, No significant lesion, No tenderness/swelling, No erythema, No warmth, No cyanosis Neurological: Normal affect, Other (speech abnormality due to stroke. unilateral decreased strength and sensation ), Abnormal speech, Abnormal strength, Abnormal sensation, Abnormal cranial nerve function Lymphatics: No axilla or inguinal lymphadenopathy - Studies Laboratory Data (last 24 hrs) 10/23/20 21:27: PT 13.0 H, INR 1.13 10/23/20 21:27: WBC 12.90 H, Hgb 10.7 L, Hct 31.3 L, Plt Count 109 L 10/23/20 21:27: Sodium 145, Potassium 3.9, BUN 12, Creatinine 0.67, Glucose 99, Magnesium 2.1 D, Total Bilirubin 0.2, AST 30, ALT 86 H, Alkaline Phosphatase 224 H <Anish Pedroza - Last Filed: 10/24/20 01:54> - Studies Laboratory Data (last 24 hrs) 10/23/20 21:27: PT 13.0 H, INR 1.13 10/23/20 21:27: WBC 12.90 H, Hgb 10.7 L, Hct 31.3 L, Plt Count 109 L 10/23/20 21:27: Sodium 145, Potassium 3.9, BUN 12, Creatinine 0.67, Glucose 99, Magnesium 2.1 D, Total Bilirubin 0.2, AST 30, ALT 86 H, Alkaline Phosphatase 224 H <lorenza chavarria - Last Filed: 10/24/20 12:25> Assessment and Plan - Problems (Diagnosis) (1) Chest pain Current Visit: Yes Status: Acute Plan: -PRN NTG and fentanyl 25mcg (morphine allergy) -cardiology consult placed -trend troponins and EKG Qualifiers: Chest pain type: unspecified Qualified Code(s): R07.9 - Chest pain, unspecified (2) Depression with anxiety Current Visit: No Status: Chronic Plan: stable. continue home medications. (3) History of CVA (cerebrovascular accident) Current Visit: No Status: Chronic Plan: stable. continue home medications. (4) Hyperlipidemia Onset Date: 03/13/15 Current Visit: No Status: Chronic Plan: stable. continue atorvastatin. Qualifiers: Hyperlipidemia type: unspecified Qualified Code(s): E78.5 - Hyperlipidemia, unspecified (5) Hypertension Current Visit: No Status: Chronic Plan: continue to monitor. continue home medications. Qualifiers: Hypertension type: essential hypertension Qualified Code(s): I10 - Essential (primary) hypertension Discharge Plan: Home Plan to discharge in: 24 Hours - Advance Directives Does patient have a Living Will: No Does patient have a Durable POA for Healthcare: No - Code Status/Comfort Care Code Status Assessed: Yes (full code ) Critical Care: No Time Spent Managing Pts Care (In Minutes): 70 <Anish Pedroza - Last Filed: 10/24/20 01:54> Physician Review: Patient Assessed, Agree with Above Assessment and Plan Physician Review Additional Text: Chest pain History of coronary artery disease. Plan; Observation. Trend troponin Cardiology consult. <lorenza chavarria - Last Filed: 10/24/20 12:25>
[2020-10-24] MEDS ORDERED: NITROGLYCERIN 0.4 MG/TAB SL ONE (02:21)
[2020-10-24] MEDS ORDERED: NITROGLYCERIN 0.4 MG/TAB SL PRN (02:27)
[2020-10-24] MEDS: ONDANSETRON 4 MG/2 ML VIAL IV PRN ×2 (03:46→08:01)
[2020-10-24] MEDS: FENTANYL CITR 100 MCG/2 ML IV PRN ×2 (03:46→08:01)
[2020-10-24] MEDS ORDERED: FENTANYL CITR 100 MCG/2 ML ONE (03:53)
[2020-10-24] MEDS ORDERED: ONDANSETRON 4 MG/2 ML VIAL ONE (03:53)
[2020-10-24 04:39] VITALS: BMI 28.0
[2020-10-24 05:58] VITALS: O2SAT 98
[2020-10-24 06:05] LABS: Urine Appearance TURBID; Urine Bilirubin NEGATIVE (NEG); Urine Blood NEGATIVE (NEG); Urine Color YELLOW; Urine Glucose NEGATIVE (NEG); Urine Protein NEGATIVE (NEG); Urine Urobilinogen 0.2 mg/dL (0.2-1.0); Urine pH 7.5 (5.0-7.0)
[2020-10-24 06:06] LABS: Urine Microscopic Reflex ORDER UMIC
[2020-10-24 06:15] LABS: Urine Amorphous Sediment 4+ /HPF (NONE SEEN); Urine Bacteria <20 /HPF (<20); Urine RBC NONE SEEN /HPF (NONE SEEN); Urine Urothelial Cells <5 /HPF (NONE SEEN)
[2020-10-24] MEDS ORDERED: ENOXAPARIN 40 MG/0.4 ML SQ SCH (09:00)
--- NOTE | 2020-10-24 09:46 | RAD REPORT ---
EXAM DESCRIPTION: US - Liver Only - 10/24/2020 9:33 am CLINICAL HISTORY: Elevated liver function test enzymes COMPARISON: None FINDINGS: The liver has an increased echotexture. Hepatopetal flow. A lesion is not visualized. Cholecystectomy. Common bile duct measures 9 millimeters The spleen measures 10 centimeters IMPRESSION: Increased hepatic echotexture consistent with fatty infiltration. Unremarkable ultrasound spleen Prominence of the common bile duct may be physiologic in this patient status post cholecystectomy. Pa thology such as a stricture or nonvisualized stone can also result in this appearance and should be c orrelated clinically and with appropriate lab values
--- NOTE | 2020-10-24 11:18 | CON ---
Date of Consultation: 10/24/2020 Reason For Consultation: Chest pain. History Of Present Illness: Ms. Whyte is a 55-year-old white woman. She has actually had a history of coronary artery disease, status post CABG. In January 2020, the catheterization showed an ostial RC A stenosis which was stented by Dr. Fatima. She had a MENENDEZ to the LAD that was patent. Circumflex s ystem was normal. She came in with atypical chest pain, right-sided, sharp, stabbing, nonexertional, nonradiating. No nausea, vomiting, diaphoresis, PND, orthopnea, pedal edema, palpitations, or synco pe. EKG was nonspecific. BNP was normal. Troponin was normal. She is pain-free now. She follows up with Dr. Escobar at [facility]. She has an appointment coming up with him. Allergies: NONE. Review of Systems: Negative. Social History: Negative. Family History: Positive for heart disease. Past Medical History: Include hypertension; dyslipidemia; gastroesophageal reflux disease; coronary artery disease, status post CABG, status post stent of the RCA in January 2020; history of CVA as well. She also has a history of paroxysmal atrial fibrillation. Medications: At home include inhalers, Eliquis, Lipitor, Plavix, Lasix, potassium, omeprazole, and m etoprolol. Physical Examination: Vital signs: Stable. She was afebrile. HEENT: Negative. Neck: Supple. No bruit, lymphadenopathy, JVD, or thyromegaly. Chest: Clear to auscultation and percussion. Cardiac: Revealed a regular rhythm and rate. No murmurs, gallops, or rubs. Abdomen: Benign. Extremities: Revealed no clubbing, cyanosis, or edema. Diagnostic Data: Unremarkable. Impression And Plan: 1.Atypical chest pain. 2.History of coronary artery disease, status post coronary artery bypass graft, patent MENENDEZ, RCA celso nt in January 2020. I am comfortable with the patient going home. I do not think we are dealing with a n acute coronary syndrome. I suggest we increase her metoprolol to a 100 b.i.d. that may help her wi th her atrial fibrillation, palpitation and coronary artery disease as well as hypertension. I think , she should continue the Eliquis as well. She should follow up with Dr. Escobar in the near future. If her symptoms persist, it may be reasonable to do another catheterization or another stress test o n her in the near future. Her other problems including chronic obstructive pulmonary disease, dyslip idemia, hypertension, gastroesophageal reflux disease seem to be stable at this point. She has had a cerebrovascular accident with no residual. Case was discussed with Dr. Willis. The patient can go home, increase her metoprolol and she will see Dr. Escobar in the near future. ANDRES/VENANCIO Voice ID: [id number] Report ID: [id number]
--- NOTE | 2020-10-24 12:25 | P.DS ---
Admission Date: 10/23/20 Discharge Date: 10/24/20 Primary Care Provider: Dr. Burton Disposition: ROUTINE DISCHARGE Discharge Condition: FAIR Reason for Admission: chest pain rule out Consultations: Cardiology-Dr. 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 EKG done in the ED did not show any ischemic changes. Initial troponin negative. Chest x-ray unremarkable. Patient was placed under observation for ACS rule out. Hospital Course: Troponin trended negative. Patient was chest pain-free during the hospital stay. She was seen by cardiology whole clear patient for discharge. No changes made in her medication. Her liver enzymes especially ALP and ALT were elevated. Liver ultrasound suggested fatty liver, mild bile duct dilatation deemed to be post cholecystectomy changes. Vital Signs/Physical Exam: Temp Pulse Resp BP Pulse Ox 96.9 F 61 20 148/68 H 98 10/24/20 08:00 10/24/20 08:00 10/24/20 08:00 10/24/20 08:00 10/24/20 08:00 General: Alert, In no apparent distress, Oriented x3 HEENT: Mucous membr. moist/pink Neck: Supple, JVD not distended Respiratory: Clear to auscultation bilaterally, Normal air movement Cardiovascular: No edema, Regular rate/rhythm, Normal S1 S2 Gastrointestinal: Normal bowel sounds, Soft and benign, Non-distended, No tenderness Musculoskeletal: No swelling, No tenderness Integumentary: No rashes Neurological: Normal strength at 5/5 x4 extr, Cranial nerves 3-12 intact Laboratory Data at Discharge: WBC 12.90 K/uL (4.3-10.9) H 10/23/20 21:27 Hgb 10.7 g/dL (12.0-15.0) L 10/23/20 21:27 Hct 31.3 % (36.0-45.0) L 10/23/20 21:27 Plt Count 109 K/uL (152-406) L 10/23/20 21: PT 13.0 SECONDS (9.5-12.5) H 10/23/20 21: INR 1.13 10/23/20 21:27 Sodium 145 mmol/L (136-145) 10/23/20 21: Potassium 3.9 mmol/L (3.5-5.1) 10/23/20 21: BUN 12 mg/dL (7-18) 10/23/20 21: Creatinine 0.67 mg/dL (0.55-1.3) 10/23/20 21: Glucose 99 mg/dL (74-106) 10/23/20: Magnesium 2.1 mg/dL (1.8-2.4) D 10/23/20 21: Total Bilirubin 0.2 mg/dL (0.2-1.0) 10/23/20 21: AST 30 U/L (15-37) 10/23/20 21:27 ALT 86 U/L (12-78) H 10/23/20 21: Alkaline Phosphatase 224 U/L (45-117) H 10/23/20 21:27 Troponin I 0.02 ng/mL (0.0-0.045) 10/24/20 04:10 Home Medications: Albuterol Sulfate [Proair Hfa] 2 puff IH DAILYPRN PRN 01/20/20 Apixaban [Eliquis *] 5 mg PO BID 01/20/20 Budesonide/Formoterol Fumarate [Symbicort 160-4.5 Mcg Inhaler] 2 puff IH BIDP PRN 01/20/20 Codeine/APAP [Tylenol #3*] 1 tab PO TIDP PRN 01/20/20 Furosemide [Lasix*] 1 tab PO DAILYPRN PRN 01/20/20 LORazepam [Lorazepam] 1 tab PO BID 01/20/20 Metoprolol Tartrate [Lopressor*] 1 tab PO BID PRN 01/20/20 Potassium Chloride [K-Dur] 1 tab PO DAILY 01/20/20 Promethazine Tab [Phenergan*] 1 tab PO BIDP PRN 01/20/20 Sertraline [Zoloft*] 100 tab PO BID 01/20/20 Topiramate [Topamax*] 50 mg PO BID 01/20/20 Zolpidem Tartrate [Ambien*] 10 mg PO BEDTIME 01/20/20 buPROPion HCL [Wellbutrin*] 200 mg PO BID 01/20/20 hydrOXYzine HCL [Atarax] 1 tab PO BID 01/20/20 hydrOXYzine HCL [Atarax] 100 mg PO BEDTIME 01/20/20 methocarbamoL [Methocarbamol] 1 tab PO BID 01/20/20 Atorvastatin Calcium [Lipitor] 1 tab PO BEDTIME #30 tab 01/25/20 Clopidogrel Bisulfate [Plavix*] 75 mg PO DAILY #30 tablet 01/25/20 Omeprazole 40 mg PO DAILY 04/18/20 Diet: AHA Activity: Ad tiarra Followup: Bora Soto MD [ACTIVE - CAN ADMIT] - NONE,NONE [Primary Care Provider] - 1-2 Weeks
[2020-10-24 13:18] VITALS: BP 135/65; TEMP 97.9
--- NOTE | 2020-10-25 05:04 | EKG ---
Test Date: 2020-10-24 Test Time: 02:09:22 Plate Gauger: PABLO MEASUREMENT RESULTS: Intervals: Rate: 62 CT: 148 QRSD: 126 QT: 446 QTc: 452 [place]: P: 67 CT: 148 QRS: 54 T: 73 INTERPRETIVE STATEMENTS: Normal sinus rhythm Right bundle branch block Abnormal ECG Compared to ECG 10/23/2020 20:54:03 No significant changes Electronically Signed On 10-25-20 05:03:43 HYDRAULIC DESIGN ENGINEER by Bora Soto
--- NOTE | 2020-10-26 05:19 | EKG ---
Test Date: 2020-10-23 Test Time: 20:54:03 Floodplain Manager: TY MEASUREMENT RESULTS: Intervals: Rate: 66 MN: 148 QRSD: 116 QT: 430 QTc: 450 [place]: P: 67 MN: 148 QRS: 44 T: 52 INTERPRETIVE STATEMENTS: Normal sinus rhythm Right bundle branch block Abnormal ECG Compared to ECG 09/13/2020 10:12:11 Atrial abnormality no longer present Electronically Signed On 10-26-20 05:12:09 DAIRY GRAZER by Bora Soto
== END 2020-10-24 13:25 | disposition home or self-care (01) ==
LOC: ER 20:35 → ERHOLD 23:39 → 2ND 10-24 04:00
PROVIDERS: ADMIT Internal Medicine; ATTEND Internal Medicine
DX: R07.89 Other chest pain (principal); I25.10 Atherosclerotic heart disease of native coronary artery without angina pectoris; E78.5 Hyperlipidemia, unspecified; Z86.73 Personal history of transient ischemic attack (TIA), and cerebral infarction without residual deficits; I48.20 Chronic atrial fibrillation, unspecified; D68.61 Antiphospholipid syndrome; Z20.822 Contact with and (suspected) exposure to COVID-19; R94.31 Abnormal electrocardiogram [ECG] [EKG]; I10 Essential (primary) hypertension; K21.9 Gastro-esophageal reflux disease without esophagitis; Z95.1 Presence of aortocoronary bypass graft; Z95.5 Presence of coronary angioplasty implant and graft; Z79.01 Long term (current) use of anticoagulants; Z86.718 Personal history of other venous thrombosis and embolism; Z87.891 Personal history of nicotine dependence; F32.9 Major depressive disorder, single episode, unspecified; G89.29 Other chronic pain; I25.2 Old myocardial infarction
CPT/HCPCS: 93005 ×2; 87088; 85025; 87086; 80048; 82977; 36415; 83735; 85610; 80076; 84484 ×3; 83880; 71045; 76705; U0003; J1650; J3010 ×3; J2405 ×2; G0378 ×2; 81003; 81015; 96374; 99285

== ENCOUNTER 2020-12-11 16:04 | Observation (INO) | payer MEDICAID ==
--- OUTSIDE RECORDS SUMMARY | 2020-12-11 16:17 | XMS REPORT | Continuity of Care Document ---
:1965 Author Organization [facility] t Address [address] [place] [address] Care Team Providers Name Role Phone Shawn ANDERSON, K.H. Attending Clinician Christal CERDA, L Attending Clinician Unavailable Rito Treadwell DO Attending Clinician Antony RIVERA Attending Clinician Jimbo ANDERSON Attending Clinician Deshaun Kaur Attending Clinician Sachin Dey Attending Clinician Radha Attending Clinician Antony RIVERA Admitting Clinician Deshaun Kaur Admitting Clinician Sachin Dey Admitting Clinician Radha Admitting Clinician Problems Condition Condition Condition Status Onset Resolution Last Treating Co mments Source Name Details Category Date Date Treatment Clinician Date STROKE Diagnosis Active 2019-03-09 Mem oria 03-09 16:26:00 l STROKE 00:00: [place]rera 00 Active 03/09/2019 [facility] DYSPNEA Diagnosis Active 2019-03-15 Me moria 03-09 15:12:00 l DYSPNEA 00:00: [place] 00 Active 03/09/2019 [facility] ENCEPHALIT Diagnosis Active 2015-03-23 Memoria IS/SEIZURE 03-16 15:07:00 l S 00:00: [place]rera ENCEPHALIT 00 IS/SEIZURE S Active 03/16/2015 [facility] NON-HEMORR Diagnosis Active 2014-11-01 Memoria AGHIC - 15:25:00 l STROKE 00:00: Cabrera NON-HEMORR 00 AGHIC STROKE Active 10/25/2014 [facility] ISCHEMIC Diagnosis Active 2013-11-13 M emoria CVA 11-12 04:08:00 l ISCHEMIC 00:00: Enrique n CVA 00 Active 11/12/2013 [facility] WEAKNESS Diagnosis Active 2013-11-26 M emoria 11-12 21:50:00 l WEAKNESS 00:00: Enrique n 00 Active 11/12/2013 [facility] AMS Diagnosis Active 2013-06-01 Mem oria 05-08 21:46:00 l AMS 00:00: [place] 00 Active 05/08/2013 [facility] CEREBRAL Diagnosis Active 2011-082012-07-24 M emoria VASCULAR 09-19 23:24:00 l ACCIDENT CEREBRAL 00:00: Herm tin VASCULAR 00 ACCIDENT Active 07/19/2012 [facility] Anxiety Problem Resolve 2019-03-14 Mem oria (finding) d 22:30:17 l Anxiety [place] (finding) Resolved Problem 03/14/2019 [facility] Antiphosph Problem Resolve 2019-03-14 Memoria olipid d 22:30:17 l syndrome [place] (disorder) Antiphosph olipid syndrome (disorder) Resolved Problem 03/14/2019 [facility] Transient Problem Resolve 2019-03-14 M emoria ischemic d 22:30:17 l attack [place] (disorder) Transient ischemic attack (disorder) Resolved Problem 03/14/2019 [facility] Gastroesop Problem Resolve 2019-03-14 Memoria hageal d 22:30:17 l reflux [place] disease Gastroesop (disorder) hageal reflux disease (disorder) Resolved Problem 03/14/2019 [facility] Hyperlipid Problem Resolve 2019-03-14 Memoria emia d 22:30:17 l (disorder) Enrique n Hyperlipid emia (disorder) Resolved Problem 03/14/2019 [facility] Nausea Problem Resolve 2019-03-14 Mike sujey (finding) d 22:30:17 l Nausea [place] (finding) Resolved Problem 03/14/2019 [facility] Chronic Problem Active 2019-03-14 Mike sujey obstructiv 22:30:17 l e lung Chronic [place] disease obstructiv (disorder) e lung disease (disorder) Active Problem 03/14/2019 [facility] Cerebrovas Problem Active 2019-03-14 M emoria cular 22:30:17 l accident [place] (disorder) Cerebrovas cular accident (disorder) Active Problem 03/14/2019 [facility] Depression Problem Active 2015-03-25 M emoria - motion 01:09:45 l (qualifier Enrique n value) Depression - motion (qualifier value) Active Problem 03/25/2015 [facility] Asthenia Problem Active 2019-03-14 Mem oria (finding) 22:30:17 l Asthenia Enrique n (finding) Active Problem 03/14/2019 [facility] Hypertensi Problem Active 2019-03-14 M emoria ve 22:30:17 l disorder, [place] systemic Hypertensi arterial ve (disorder) disorder, systemic arterial (disorder) Active Problem 03/14/2019 [facility] Migraine Problem Active 2019-03-14 Mem oria (disorder) 22:30:17 l Migraine Enrique n (disorder) Active Problem 03/14/2019 [facility] Anxiety Problem Active 2013-05-14 Mike sujey 21:29:09 l Anxiety [place] Active Problem 05/14/2013 [facility] COPD Problem Active 2013-05-14 Memor ia 21:29:09 l COPD [place] Active Problem 05/14/2013 [facility] Depression Problem Active 2013-05-14 M emoria 21:29:09 l [place] Depression Active Problem 05/14/2013 [facility] General Problem Active 2013-05-14 Mike sujey weakness 21:29:09 l General [place] weakness Active Problem 05/14/2013 [facility] Hypertensi Problem Active 2013-05-14 M emoria on 21:29:09 l [place] Hypertensi on Active Problem 3 [facility] Migraine Problem Active 2013-05-14 Mem oria 21:29:09 l Migraine Enrique n Active Problem 05/14/2013 [facility] Stroke Problem Active 2013-05-14 Memor ia 21:29:09 l Stroke [place] Active Problem 05/14/2013 [facility] Morbid Problem Active 2019-03-14 Memor ia obesity 22:30:17 l (disorder) Morbid Herm tin obesity (disorder) Active Problem 03/14/2019 [facility] CVA Diagnosis Active 2014-11-01 Mem oria 15:25:00 l CVA [place] Active [facility] ALTERED Diagnosis Active 2013-06-01 Me moria MENTAL 21:46:00 l STATUS ALTERED [place] MENTAL STATUS Active [facility] MALAISE Diagnosis Active 2013-11-26 Me moria AND 21:50:00 l FATIGUE MALAISE Enrique n NEC AND FATIGUE NEC Active [facility] FEBRILE Diagnosis Active 2015-03-23 Me moria CONVULSION 15:07:00 l S NOS FEBRILE [place] CONVULSION S NOS Active [facility] DYSPNEA, Diagnosis Active 2019-03-15 M emoria UNSPECIFIE 15:12:00 l D DYSPNEA, Enrique n UNSPECIFIE D Active [facility] 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, is, [facility]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 [facility] Adult BMI Adult BMI Diagnosis Active [facility] 40.0-44.9 40.0-44.9 Luke s - kg/sq m kg/sq m [facility]oria l [facility] Depression Depression Problem Active [facility] with with [facility] - anxiety anxiety [facility]oria l [facility] Left Left Problem Active [facility] hemiparesi hemiparesi Mora kes - s s Memoria l [facility] Obstructiv Obstructiv Problem Active [facility] e sleep e sleep [facility] - apnea apnea [facility] 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 l [facility] 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 Memori a l [facility]ics History of History of Problem Active [facility] cerebrovas cerebrovas Mora kes - cular cular Memoria accident accident l with with Outpati current current ent residual residual Clinic s effects effects Hyperlipem Hyperlipem Problem Active [facility] ia, mixed ia, mixed Luke s - Memoria l [facility] Migraine Migraine Problem Active [facility] Peripheral Peripheral Problem Active [facility] vascular vascular [facility] - disease disease Memoria l [facility] GERD GERD Diagnosis Active [facility] without without [facility] - esophagiti esophagiti Me moria s s l [facility] S/P CABG x S/P CABG x Problem Active [facility] 1 1 [facility] - Memoria [facility] Chronic Chronic Problem Active [facility] systolic systolic [facility] - heart heart Memoria failure failure l [facility] Benign Benign Problem Active [facility] essential essential [facility] Obesity Obesity Problem Active [facility] Cough Cough Problem Active [facility] Anticoagul Anticoagul Problem Active [facility] ated ated kes - [facility] Chronic Chronic Problem Active [facility] back pain back pain Luke s - Memoria [facility] Stented Stented Problem Active [facility] coronary coronary [facility] - artery artery [facility] History of History of Problem Active [facility] non-ST non-ST [facility] - elevation elevation Mike sujey myocardial myocardial l infarction infarction Ou tpati (NSTEMI) (NSTEMI) ent Clinics Coronary Coronary Problem Active [facility] artery artery [facility] - disease of disease of Me moria bypass bypass l graft of graft of Outpat i apache apache ent heart with heart with Cl inics stable stable angina angina pectoris pectoris Coronary Coronary Problem Active [facility] artery artery [facility] - disease disease Memoria involving involving l apache apache [facility] coronary coronary ent artery of artery of Clin ics apache apache heart with heart with angina angina pectoris pectoris Allergies, Adverse Reactions, Alerts Allergy Allergy Status Severity Reaction(s) Onset Inactive Treating Comm ents Source Name Type Date Date Clinician Toradol Adverse Active Info Not [facility] Reaction Available [facility] Stadol Adverse Active Info Not [facility] Reaction Available [facility] Lyrica Adverse Active Info Not [facility] Reaction Available [facility] Ibuprofe Adverse Active Info Not [facility] n Reaction Available [facility] Divalpro Adverse Active Info Not [facility] ex Reaction Available [facility] Sodium Memoria l [facility] Clinics labetalo labetalo Active Memori a l l l [place] NSAIDs NSAIDs Active Memoria l [place] Stadol Stadol Active Memoria l [place] Toradol Toradol Active Memoria l [place] Vicoprof Vicoprof Active Memori a en en l [place] Compazin Compazin Active Memori a e e l [place] Depakote Depakote Active Memori a l [place] Social History Social Habit Start Date Stop Date Quantity Comments Source Social History 2015-03-17 2015-03-17 [facility] ermann 07:18:43 07:18:43 Medications Ordered [...] tab, PO, l tablet 20:52: Daily, # [place] 00 30 tab, 2 Refill(s) aripiprazol Yes [...] PO, l oral tablet 17:55: Bedtime, # [place] 00 30 tab, 0 Refill(s) LORazepam 2 No 2 mg = 1 Me moria [...] PO, l oral tablet 17:55: Bedtime, He rmann 00 PRN Sleep, # 60 tab, 0 [...] s with feeding tube less than 14 Burmese (Dobhoff, J-tube etc) and pediatric and patients. [...] s with feeding tube less than 14 [place]mese (Dobhoff, J-tube etc) and pediatric and patients. [...] 8:46:00 CDT Calcium No Notes: Memoria Gluconate - WASTE: F/P l 12:23: - Sink; E [place] - [employer] Potassium No Notes: Memori a Chloride 7-25 (Same as: l 1.33 MEQ/ML 11:10: Potassium H ermann Oral Chloride) Solution Melatonin 3 No Notes: Mike sujey MG Extended 03-11 (Same as: l Release 02:00: Melatonin) Herm tin Tablet 00 atorvastati No Notes: Mike sujey n - Same as l 02:00: Lipitor [place] Lisinopril No Notes: Memor ia 7-24 (Same as: l 22:38: Prinivil, Zestril) heparin No Notes: Memoria 7-24 porcine l 21:00: heparin potassium No Notes: Memori a phosphate + -24 (Same as: l Sodium 20:30: K Chloride [...] Potassium No 10 mEq, Memor ia Chloride -24 Route: l 20:00: IVPB, Q1H, Dosing Weight [...] as: l / 05:10: Duoneb) Ipratropium 00 [place] 0.167 MG/ML Inhalant Solution Potassium No Notes: Memori a Chloride 7-24 (Same as: l 05:00: KCL) Infuse no faster than 10 mEq/hr if given peripheral ly. Acetaminoph No 100.4 F, M emoria en 7-24 Start l 03:02: date: 03/09/19 22:02:00 CDT, Duration: 30 day, Stop date: 04/08/19 22:01:00 CDT, 0 Ondansetron No Notes: Memoria 03-10 MEDICATION l 03:02: WASTE [place] Product Size: 4 mg Product Wasted: ___ mg Dextrose No 12.5 gm, Memor ia 50% Syringe 03-10 25 mL, l 03:02: Route: [place] 00 IVP, Drug Form: INJ, Dosing Weight 97.5, kg, PRN, PRN Blood Glucose Results, Start date: 03/09/19 22:02:00 CDT, Duration: 30 day, Stop date: 04/08/19 22:01:00 CDT, 0 Glucagon No 1 mg, Memoria 03-10 Route: IM, l 03:02: Drug form: [place] PDR/INJ, PRN, Dosing Weight 97.5, kg, PRN Blood Glucose Results, Start date: 03/09/19 22:02:00 CDT, Duration: 30 day, Stop date: 04/08/19 22:01:00 CDT, 0 Iohexol No 100 mL, Memoria 03-10 Route: l 00:24: IVP, Drug Form: SOLN, Dosing Weight 97.5, kg, ONCALL, STAT, Start date: 03/09/19 19:24:00 CDT, Duration: 1 doses or times, Dose = 2.2ml/kg, Max dose = 100ml -- "To be infused by Radiology Staff ONLY" Iohexol No 82 mL, Memoria 03-10 Route: l 00:06: IVP, Drug [place] 00 Form: SOLN, Dosing Weight 97.5, kg, ONCALL, STAT, Start date: 03/09/19 19:06:00 CDT, Duration: 1 doses or times, Dose = 2.2ml/kg, Max dose = 100ml -- "To be infused by Radiology Staff ONLY" heparin No Notes: Memoria additive 03-09 Total l 25,000 unit 23:37: Concentrat [place] [ ion = 50 unit/kg/hr] unit/mL; + Premix Total Diluent volume = Sodium 500 mL Chloride Send Med 0.45% 500 Request 2 mL hours prior to next bag Heparin 30 No Route: Memor ia unit/kg 03-09 IVP, PRN, l Bolus 23:37: 2,300 [place] (Heparin 00 unit, 2.3 Dosing mL, Drug Weight) form: INJ, PRN, Heparin Protocol, Start date: 03/09/19 18:37:00 CDT Stop date: 04/08/19 18:36:00 CDT, 30 day, 0 Heparin - No 4,000 Memoria one time 03-09 unit, 4 l bolus for 23:37: mL, Route: [facility] ACS 00 IVP, Drug form: INJ, ONCE, [...] WASTE: F/P l 22:41: - Sink; E [place] - [facility] [employer] Bin potassium No 40 mEq, 2 Mem oria chloride 20 03-09 tab, l mEq oral 22:41: Route: PO, [place] tablet, 00 Drug form: extended ERTAB, release ONCE, Dosing Weight 97.5, kg, Priority: STAT, Start date: 03/09/19 17:41:00 CDT, Stop date: 03/09/19 17:41:00 CDT, 0 Isolyte S No Notes: Memori a PH-7.4 03-09 (Same as: l (Bolus) IV 22:38: Isolyte S [facility] PH 7.4) Acetaminoph No Notes: Do M emoria en 03-22 not exceed l 20:05: 4 gm/day. [place] (Same as: Tylenol) rivaroxaban Yes 20 mg [...] = 1 M emoria n 80 mg 8-05 tab, PO, l oral tablet 19:27: Bedtime, # [place] 00 30 tab, 1 Refill(s) Levetiracet Yes 1,000 mg = Memoria am 1000 MG 03-22 1 tab, PO, l Oral Tablet 19:27: BID, # 60 H ermann 00 tab, 2 Refill(s) Rocephin No 1 gm, Memoria 03-22 Route: l 13:00: IVPB, Drug form: PDR/INJ, [id number], Dosing Weight 110.3, kg, Start date: 03/22/15 [...] Oxide 03-19 (Same as: l 12:03: Mag-Ox 400) Magnesium oxide 672bh=364k g elemental magnesium Dose=____m g magnesium oxide (___mg elemental magnesium) Potassium No Notes: Memori a Chloride 03-19 (Same as: l 1.33 MEQ/ML 12:02: Potassium H ermann Oral 00 Chloride) Solution Lipitor No Notes: Memoria 8-01 Same as l 14:00: Lipitor Haloperidol No Notes: Mike sujey 7-31 (Same as: l 22:00: Haldol) Sertraline No Notes: Memor ia 7-31 (Same as: l 22:00: Zoloft) pregabalin No Notes: Memor ia 7-31 Same as l 22:00: Lyrica [place] 00 Wellbutrin No Notes: Memor ia 7-31 (Same As: l 16:45: Wellbutrin ) pantoprazol No Notes: Mike sujey e 7-31 Tablet l 16:45: should not be chewed or crushed. (Same as: Protonix) Keppra No Notes: Memoria 7-31 (Same l 16:03: as:Keppra) Topamax No Notes: Memoria 7-31 (Same As: l 14:00: Topamax) potassium No Notes: Memori a chloride 7-31 (Same as: l 05:11: Potassium Chloride) heparin No Notes: Memoria 7-31 porcine l 05:00: heparin Keppra + No Notes: Memoria Sodium 7-31 Same as l Chloride 04:00: Keppra 0.9% [...] No 1,000 mg, M emoria am 100 731 Route: [place], l MG/ML Oral 03:11: Drug form: H ermann Solution 00 SOLN, [Keppra] Q12H, Dosing Weight 110.3, kg, Priority: NOW, Start date: 03/16/15 22:11:00, Duration: 30 day, Stop date: 04/15/15 21:00:00 Acyclovir No Notes: Memori a -31 (Same as: l 03:00: Zovirax) [place]rera 00 MEDICATION WASTE Product Size: 500 mg Product Wasted: _0__ mg normal No 1,000 mL, Memori a saline 0.9% 03-17 Rate: 100 l IV 1,000 mL 02:31: ml/hr, Herm tin 00 Infuse over: 10 hr, Route: IV, Dosing Weight 110.3 kg, Total Volume: 1,000, Start date: 03/16/15 21:31:00, Duration: 30 day, Stop date: 04/15/15 21:30:00 Valproate No 500 mg, Memor ia Sodium 100 7-31 IV, Q8H, 0 l mg/mL 01:17: Refill(s) [place] intravenous 00 solution haloperidol No 2 mg = 1 Me moria 2 mg oral 7-31 tab, PO, l tablet 01:17: BID, 0 [place] 00 Refill(s) Folic Acid No 1 mg = 1 Mem oria 1 MG Oral 7-31 tab, PO, l Tablet 01:17: Daily, # [place] 00 30 tab, 0 Refill(s) pantoprazol Yes 40 mg = 1 M emoria e 40 mg 7-31 tab, PO, l oral 01:17: Daily, # [place] enteric 00 30 tab, 0 coated Refill(s) [...] = 1 Me moria 50 MG Oral 03-17 tab, PO, l Tablet 01:17: BID, # 60 Enrique n [Topamax] 00 tab, 0 Refill(s) ondansetron No 4 mg, IV, M emoria 2 mg/mL 03-17 PRN, # 1 l injectable 01:17: ea, 0 Enrique n solution 00 Refill(s) sertraline Yes 100 mg = 1 M emoria 100 mg oral 03-17 tab, PO, l tablet 01:17: BID, 0 [place] 00 Refill(s) thiothixene No 2 mg = 1 Me moria 2 mg oral 03-17 cap, PO, l capsule 01:17: BID, 0 [place] 00 Refill(s) acyclovir No IV, Q8H, 0 Me moria 500 mg 03-17 Refill(s) l intravenous 01:17: Enrique n injection 00 Methocarbam No 250 mg, Mem oria ol 03-17 PO, BID, 0 l 01:17: Refill(s) [place] 00 Acetaminoph No 650 mg, Mem oria en 03-17 PO, PRN, 0 l 01:17: Refill(s) [place] 00 lisinopril No 20 mg = 1 [...] # 10 l injection 01:17: ea, 0 [place] 00 Refill(s) Levofloxaci 2014- No 500 mg, Mem oria n 3-17 Route: PO, l 14:00: Drug form: [place] 00 TAB, Daily, Dosing Weight 110.3, kg, Start date: 11/01/14 9:00:00, Duration: 30 day, Stop date: 11/30/14 9:00:00 Metronidazo 2014- No 500 mg, 1 M emoria le [...] H ermann 09 tab, 0 Refill(s) levofloxaci Yes 500 mg = 1 Memoria n [...] tab, PO, l tablet 00:43: Daily, # [place] 00 30 tab, 0 Refill(s) Bupropion Yes [...] H ermann 00 tab, 0 Refill(s) Haldol 2015-0 No 2 mg, Memoria 3-16 Route: PO, l 22:00: BID, [place] 00 Dosing Weight 110.3, kg, Start date: 10/31/14 17:00:00, Duration: 30 day, Stop date: 11/30/14 9:00:00 Wellbutrin 2015-0 No 200 mg, Mike sujey 3-16 Route: PO, l 22:00: Drug form: [place] 00 TAB, BID, Dosing Weight 110.3, kg, Start date: 10/31/14 17:00:00, Duration: 30 day, Stop date: 11/30/14 9:00:00 Navane 2015-0 No 2 mg, Memoria 3-16 Route: PO, l 22:00: BID, [place] 00 Dosing Weight 110.3, kg, Start date: 10/31/14 17:00:00, Duration: 30 day, Stop date: 11/30/14 9:00:00 Zoloft 2015-0 No 100 mg, Memoria 3-16 Route: PO, l 22:00: Drug form: [place] 00 TAB, BID, Dosing Weight 110.3, kg, Start date: 10/31/14 17:00:00, Duration: 30 day, Stop date: 11/30/14 9:00:00 Xarelto 2015-0 No 20 mg, Memoria 3-16 Route: PO, l 22:00: Drug form: [place] 00 TAB, QPM, Dosing Weight 110.3, kg, [...] 3-16 Route: PO, l 21:36: Drug form: [place] 00 TAB, Q6H, Dosing Weight 110.3, kg, [...] l oral tablet 21:32: Daily, # 7 [place] 00 tab, 0 Refill(s) Wellbutrin No Notes: Memor ia 3-16 (Same As: l 02:00: Wellbutrin ) Topamax No Notes: Memoria 3-16 (Same As: l 02:00: Topamax) "Do Not Crush" sennosides, No Notes: Mike sujey FCI 3-16 (Same as: l 02:00: Senokot) metoprolol [...] moria 3-15 infuse l 14:00: over 2.5 hours Vancomycin FOR IV SET ONLY potassium [...] moria 3-13 infuse l 23:00: over 2.5 [place] 00 hours Vancomycin FOR IV SET ONLY Vancomycin No 2000 mg: Me moria 3-13 infuse l 22:00: over 2.5 [place] 00 hours Vancomycin FOR IV SET ONLY Ativan No 2 mg, Memoria 3-13 Route: IV, l 18:49: ONCE, [place] Dosing Weight 110.3, kg, Start date: 10/28/14 13:49:00, Stop date: 10/28/14 13:49:00 sodium No Notes: Memoria phosphate + 3-13 (Same as: l Sodium 10:00: Na [place] Chloride 00 Phosphate, 0.9% IV 250 Na PO4) mL potassium No Notes: Memori a chloride 3-13 (Same as: l 09:30: Potassium [place] Chloride) magnesium No 2 gm, 50 Mike [...] 1,000 mL No 1,000 mL, M emoria -12 Rate: 100 l 16:29: ml/hr, [place] Infuse over: 10 hr, Route: IV, Dosing Weight 110.3 kg, Total Volume: 1,000, Start date: 10/27/14 11:29:00, Duration: 30 day, Stop date: 11/26/14 11:28:00 pantoprazol No Notes: Mike sujey e 3-12 Same as: l 14:00: Protonix [place] 00 Protonix No Notes: Memoria 3-12 Tablet l 14:00: should not [place] 00 be chewed or crushed. (Same as: Protonix) Propofol 10 No Notes: If M emoria MG/ML 10-27 Diprivan - l Injectable 12:02: change Aliza nn Suspension 00 bottle & tubing every 12 hr Per state nursing law propofol can only be given by a nurse if patient is intubated or being intubated (unless the nurse is a AUDIT CONTROL CLERK). Same as: Diprivan sodium No Notes: Memoria bicarbonate -12 (sodium l 75 mEq + 07:02: bicarb [place] Sodium 00 8.4% (1 Chloride mEq/ml) 50 0.45% IV ml VL) 925 mL ketAMINE No Notes: Per Mem oria 500 mg + -12 state l Sodium 06:53: nursing [place] Chloride 00 law 0.9% IV 245 ketamine mL can only be given by a nurse if patient is intubated or being intubated (unless the nurse is a AUDIT CONTROL CLERK). Keppra No Notes: Memoria 3-12 Same as: l 02:00: Keppra [place] 00 Vancomycin No 2000 mg: Me moria -12 infuse l 02:00: over 2.5 [place] 00 hours Vancomycin FOR IV SET ONLY heparin No 500 mL, Memoria additive -12 Rate: l 25,000 unit 01:00: 21.16 Aliza [...] before hanging" sennosides, No Notes: Mike sujey FCI -11 (Same as: l 22:00: Senokot) [place] Lipitor No Notes: Memoria 311 Same as l 22:00: Lipitor Xarelto No Notes: Memoria 3-11 (Same as: l 22:00: Xarelto) Cabrera Administer [...] Mem oria 10-26 state l 21:49: nursing [place] law ketamine can only be given by a nurse if patient is intubated or being intubated (unless the nurse is a AUDIT CONTROL CLERK). lidocaine No Notes: Memori a 1% 10-26 (Same as: l 21:26: Xylocaine) Ketamine No Notes: Per Mem oria 10-26 state l 21:00: nursing [place] 00 law ketamine can only be given by a nurse if patient is intubated or being intubated (unless the nurse is a AUDIT CONTROL CLERK). Calcium No 1,000 mg, Memor ia Chloride 11 10 mL, l 20:40: Route: [place] IVPB, ONCE, Dosing Weight 110.3, kg, Start date: 10/26/14 15:40:00, Stop date: 10/26/14 15:40:00 Iohexol No Special Memoria 3-11 Instructio l 20:24: ns: Dose = [place] 00 2.2ml/kg, Max dose = 100ml -- "To be infused by Radiology Staff ONLY" Ketamine No Notes: Memoria 3-11 Total l 19:23: Concentrat [place] ion = 1mg/ml Total Volume = 100ml [...] 24 hr Etomidate No Notes: Memori a -11 (Same as: l 18:54: Amidate). [place] 00 Per state nursing law etomidate can only be given by a nurse if patient is intubated or being intubated (unless the nurse is a AUDIT CONTROL CLERK). sodium No Notes: Memoria bicarbonate -11 (sodium l 8.4% 18:53: bicarb [place] 00 8.4% (1 mEq/ml) 50 ml syringe) Succinylcho No Notes: Mike sujey line -11 Same as: l 18:53: Anectine [place] Fentanyl No 1,000 Memoria 3-11 microgram, l 18:52: 20 mL, [place] 00 Rate: Titrate as directed, Dosing Weight [...] (Do not (titrate) shake) 99 mL Dextrose 2015-0 No 6.25 gm, Memor ia 50% Syringe 3-11 12.5 mL, l 18:38: Route: [place] 00 IVP, Drug Form: INJ, Dosing Weight 110.3, kg, PRN, PRN Abnormal Lab Result, Start date: 10/26/14 13:38:00, Duration: 30 day, Stop date: 11/25/14 13:37:00 nxstage 2014-0 No Notes: Memoria pureflow 3-11 Total l [id number] 18:21: ingredient Herm tin 5000ml 00 s in bag 4,600 mL + Na albumin 140meq/L; human 25% K 4meq/L; intravenous HCO solution 35meq/L; 100 gm Ca 3meq/L; Magnesium 1meq/L; CL 113meq/L; Glucose 100mg/dL; "Break seal Between compartmen ts and mix before hanging" Calcium 2014-0 No 2 gm, 20 Memori a Chloride 3-11 mL, Route: l 18:20: IVPB, PRN, [place] 00 Dosing Weight 110.3, kg, PRN Abnormal Lab Result, Via central line, Start date: 10/26/14 13:20:00, Duration: 30 day, Stop date: 11/25/14 13:19:00 Magnesium 2015-0 No 2 gm, 50 Mike sujey Sulfate 3-11 mL, Route: l 18:20: IVPB, Drug [place] 00 form: INJ, PRN, Dosing Weight 110.3, kg, PRN Abnormal Lab Result, Via central line, Start date: 10/26/14 13:20:00, Duration: 30 day, Stop date: 11/25/14 13:19:00 sodium 2015-0 No 15 mmol, 5 Memor ia phosphate + 3-11 mL, Route: l Sodium 18:20: IVPB, PRN, Aliza nn Chloride 00 Dosing 0.9% IV 250 Weight mL 110.3, kg, PRN Abnormal Lab Result, Via central line, Start date: 10/26/14 13:20:00, Duration: 30 day, Stop date: 11/25/14 13:19:00 sodium 2014-0 No Notes: Memoria bicarbonate 3-11 (sodium l 75 mEq + 17:06: bicarb [place] Sodium 00 8.4% (1 Chloride mEq/ml) 50 0.45% IV ml VL) 925 mL vasopressin No Notes: Mike sujey 80 unit + 3-11 (Same As: l Sodium 15:34: Pitressin) Aliza nn Chloride 00 0.9% (titrate) 246 mL Flagyl No Notes: Memoria 3-11 (Same as: l 15:00: Flagyl) [place] 00 Avoid alcohol. cefepime No Notes: Memoria 3-11 (Same As: l 15:00: Maxipime) [place] 00 Vancomycin No 2001 mg: Me moria [...] Memoria 3-11 (Same as: l 14:00: Haldol) [place] 00 Topamax No Notes: Memoria 3-11 (Same As: l 14:00: Topamax) [place] 00 "Do Not Crush" Saline No Notes: Memoria Flush 0.9% 3-11 (Same as: l 14:00: BD [place] 00 Posiflush) docusate No Notes: Memoria sodium 100 3-11 (Same as: l mg oral 14:00: Colace) [place] capsule 00 pneumococca No Notes: Mike sujey [...] polysacchar influenza No Notes: Memori a virus 10-26 (Same as: l vaccine, 14:00: Fluzone Enrique [...] Albumin No Notes: Lot Mike sujey Human, FCI 10-26 #: l 250 MG/ML 12:52: He rmann Injectable 00 ___ Solution Mfg: (Same as: Plasbumin- 25) "blood product derivative " Protonix No Notes: Memoria 10-26 (Same as: l 12:19: Protonix) [place] Albumin No Notes: Memoria Human, FCI 10-26 LOT#: l 50 MG/ML 10:34: Her y[place] Injectable 00 ___ Solution Mfg: (Same as: Albuminar) "blood product derivative " Versed No Notes: Memoria 10-26 (Same as: l 09:00: Versed) [place] 00 magnesium No 2 gm, 50 Mike sujey sulfate 10-26 mL, Route: l 07:00: IVPB, Drug [place] 00 form: INJ, Q2H, Start date: 10/26/14 2:00:00, Duration: 2 doses or times, Stop date: 10/26/14 4:00:00 Iohexol No Special Memoria 10-26 Instructio l 05:56: ns: Dose = [place] 00 2.2ml/kg, Max dose = 100ml -- "To be infused by Radiology Staff ONLY" magnesium 2014- No 4 gm, 100 Mem oria sulfate 3-11 mL, Route: l 05:44: IVPB, Drug [place] form: INJ, ONCE, Start date: 10/26/14 0:44:00, Stop date: 10/26/14 0:44:00 Reglan 2014-0 No Notes: Memoria 10-26 (Same as: l 05:21: Reglan) [place] 00 Valproic 2014-0 No 1,000 mg, Mike sujey Acid 100 11 Route: IV, l MG/ML 05:16: ONCE, [place] Injectable 00 Dosing Solution Weight 110.3, kg, Priority: NOW, Start date: 10/26/14 0:16:00, Stop date: 10/26/14 0:16:00 Dexamethaso No 10 mg, 1 Me moria ne 3-11 mL, Route: l 05:15: IVP, Drug [place] form: INJ, ONCE, Dosing Weight 110.3, kg, Start date: 10/26/14 0:15:00, Stop date: 10/26/14 0:15:00 Reglan No 10 mg, Memoria 10-26 Route: l 05:14: IVP, Drug [place] form: INJ, Q6H, Dosing Weight 110.3, kg, Priority: NOW, Start date: 10/26/14 0:14:00, Duration: 30 day, Stop date: 11/25/14 0:00:00 NS 1,000 mL 0 No 1,000 mL, M emoria 10-26 Rate: 150 l 05:01: ml/hr, [place] 00 Infuse over: 6.7 hr, Route: IV, [...] 10/25/14 23:54:00 Navane Yes 2 mg, PO, Memori a 3-11 [...] tab, PO, l Tablet 03:29: QPM, 0 [place] [Xarelto] 00 Refill(s) Esomeprazol No = 1 tab, Me moria e 40 MG 3-11 PO, Daily, l Enteric 03:29: 0 [place] Coated 00 Refill(s) Capsule [Nexium] 120 ACTUAT No 1 spray, Mem oria Triamcinolo 3-11 NASAL, l ne 03:29: Daily, # [place] [...] 00 Acetaminoph No Notes: Max Memoria en 3-11 acetaminop l 03:01: hen = [place] 00 [...] 0.9% 3-11 (Same as: l 02:33: BD [place] 00 Posiflush) Ondansetron No Notes: Mike sujey 3-11 (Same as: l 02:33: Zofran) [place] 00 NS 1,000 mL No 1,000 mL, [...] 3-11 mL, Route: l 02:28: IVP, Drug [place] 00 Form: INJ, Dosing Weight 96.364, kg, PRN, PRN Abnormal Lab Result, Start date: 10/25/14 21:28:00, Duration: 30 day, Stop date: 11/24/14 21:27:00 Coumadin No 2 mg, 1 Memori a 3-30 tab, l 22:00: Route: PO, [place] 00 Drug form: TAB, Q5PM, Start date: 11/14/13 17:00:00, Duration: 1 doses or times, Stop date: 11/14/13 17:00:00Nu rse to ensure documentat ion of patient education per anticoagul ation policy. Avoid large intake of vitamin-K containing foods diet. (Same As: Coumadin) Warfarin 2013- No 5 mg, 1 Memori a 3-30 tab, l 22:00: Route: PO, [place] 00 Drug form: TAB, Q5PM, Dosing Weight [...] Cabrera [Keppra] 00 tab, 0 Refill(s) Levetiracet No 500 mg, 1 M emoria am 500 MG 3-30 tab, l Oral Tablet 18:00: Route: PO, [place] [Keppra] 00 Drug form: TAB, Q12H, Dosing Weight 96.364, kg, Start date: 11/14/13 13:00:00, Duration: 30 day, Stop date: 12/14/13 9:00:00([facility] as:Keppra) pneumococca 0 No 0.5 ml, Mem oria l capsular 3-30 Route: IM, l polysacchar 14:00: Drug Form: [place] jarad type 1 00 INJ, vaccine / [...] ia 3-30 cap, l 03:09: Route: PO, Cabre[place] 00 Drug form: CAP, Bedtime, Dosing Weight [...] a 3-29 tab, l 22:00: Route: PO, [place] 00 Drug form: TAB, Q5PM, Dosing Weight 96.364, kg, Start date: 11/13/13 17:00:00, Duration: 1 doses or times, Stop date: 11/13/13 17:00:00Nu rse to ensure documentat ion of patient education per [facility] ation policy. Avoid large intake of vitamin-K containing foods diet. (Same As: Coumadin) Ativan No 0.5 mg, 1 Memori a 3-29 tab, l 21:00: Route: PO, [place] 00 Drug form: TAB, ONCE, Dosing Weight 96.364, kg, Start date: 11/13/13 16:00:00, Stop date: 11/13/13 16:00:00(S pinky as: Ativan) Ativan 0 No 0.5 mg, 1 Memori a 3-29 tab, l 20:08: Route: PO, [place] 00 Drug form: TAB, ONCE, Dosing Weight [...] 3-29 tab, PO, l tablet 17:03: Daily [place] 00 verapamil Yes 300 mg = 1 Me moria 300 mg/24 3-29 cap, PO, l hours oral 17:03: Daily Enrique n capsule, 00 extended release Saline No 5 ml, Memoria Flush 0.9% 11-13 Route: l 14:00: IVP, Drug [place] 00 Form: INJ, Dosing Weight 96.364, kg, Q12H, [...] 7:06:00, Duration: 30 day, Stop date: 12/13/13 7:05:00([facility] as: Versed) Iohexol No 85 mL, [...] Route: l 11:00: SUB-Q, Drug form: INJ, [id number], Dosing Weight 96.364, kg, Start date: 11/13/13 6:00:00, Duration: 30 day, Stop date: 12/12/13 6:00:00(Sa me as: Lovenox) Saline No 5 ml, Memoria Flush 0.9% 11-13 Route: l 10:15: IVP, Drug Form: INJ, Dosing Weight 96.364, kg, PRN, PRN Line Flush, Start date: 11/13/13 5:15:00, Duration: 30 day, Stop date: 12/13/13 5:14:00(Sa wa as: BD Posiflush) Acetaminoph No 650 mg, 2 M emoria en - tab, l 10:15: Route: PO, Drug form: TAB, Q4H, Dosing Weight 96.364, kg, PRN Pain 1-3/Temp > 99.5 F, Start date: 11/13/13 5:15:00, Duration: 30 day, Stop date: 12/13/13 5:14:00Do not exceed 4 gm/day. (Same as: Tylenol) Sodium 2013- No 1,000 mL, Memori a Chloride 11-13 Rate: 100 l 0.154 10:15: ml/hr, [place] MEQ/ML 00 Infuse Injectable over: 10 Solution hr, Route: IV, Dosing Weight 96.364 kg, Total Volume: 1,000, Start date: 11/13/13 5:15:00, Duration: 30 day, Stop date: 12/13/13 5:14:00 Coumadin 2013- Yes 7 mg, PO, Mike sujey 11-13 Daily, 0 l 09:06: Refill(s) Saline 2013-0 No 5 mL, Memoria Flush 0.9% 11-13 Route: l 08:58: IVP, Drug Form: INJ, Dosing Weight 96.364, kg, PRN, PRN Line Flush, Start date: 11/13/13 3:58:00, Duration: 30 day, Stop date: 12/13/13 3:57:00pre servative free. Navane 2 mg 2012- Yes Anna Marie 2 mg, PO, Memoria oral 9-25 Janey BID, 60 l capsule 18:40: Brown tab, [place] 33 Substituti on Allowed, CAP Zoloft 100 2012- Yes Anna Marie 100 mg, 1 Memoria mg oral 9-25 Janey tab, PO, l tablet 18:40: Brown BID, 60 [place] 28 tab, Substituti on Allowed, TAB haloperidol 2012- Yes Anna Marie 2 mg, 1 Memoria 2 mg oral 9-25 Janey tab, PO, l tablet 18:40: Brown BID, 60 [place] 12 tab, Substituti on Allowed Wellbutrin 2012- Yes Anna Marie 100 mg, 1 Memoria 100 mg oral 9-25 Janey tab, PO, l tablet 18:39: Brown BID, 60 [place] 54 tab, Substituti on Allowed, TAB Levaquin 2012- Yes [...] Daily, 30 l oral 22:16: Brown cap, [place] capsule 28 Substituti on Allowed, Maintenanc e, [...] Flagyl No Lyndon 500 mg, Memor ia 9-23 Amado 100 mL, l 23:00: Bubis Route: [place] 00 IVPB, Drug form: INJ, [id number], Dosing Weight 98.182, kg, Start date: 05/10/13 18:00:00, Duration: 30 day, Stop date: 06/09/13 10:00:00 azithromyci No Lyndon 500 mg, Memoria n + Sodium 9-23 Amado Route: l Chloride 23:00: Bubis IVPB, [place] 0.9% IV 250 00 [id number], mL Dosing Weight 98.182, kg, Start date: [...] Route: PO, [place] 00 Drug form: TAB, [id number], Dosing Weight 98.182, kg, Start date: 05/10/13 8:00:00, Duration: 4 doses or times, Stop date: 05/13/13 8:00:00 Versed 2012- No Hannah 1 mg, 1 Memoria 05-10 Dom mL, Route: l 12:41: Tom IV, Drug [place] 00 form: INJ, ONCE, Dosing Weight 98.182, kg, Start date: 05/10/13 7:41:00, Stop date: 05/10/13 7:41:00 magnesium 2012- No Hannah 2 gm, 50 Mem oria sulfate 05-10 Dom mL, Route: l 11:00: Tom IVPB, Drug Enrique n 00 form: INJ, Q2H, [...] Zi tab, l 00:00: Angeline Route: PO, [place] 00 Drug form: TAB, On Adm, Start date: 05/09/13 19:00:00, Duration: 1 doses or times, Stop date: 05/09/13 21:00:00 magnesium 2012-0 No Kamal 500 mg, Mike sujey oxide base 05-09 Zi Route: PO, l 500 mg oral 23:08: Angeline Drug form: [place] tablet 00 TAB, ONCE, Dosing Weight 98.182, [...] 2012-0 No Brittany 1 mg, 1 M emoria 05-09 Carmen tab, l 14:00: Zwiener Route: PO, Herm tin 00 Drug form: TAB, Daily, Dosing Weight 98.182, kg, Start date: 05/09/13 9:00:00, Duration: 30 day, Stop date: 06/07/13 9:00:00 multivitami 2012-0 No Brittany 1 tab, M emoria n 05-09 Carmen Route: PO, l 13:10: [...] 2012-0 No Hannah 1 gm, Memoria 05-09 Odm Route: l 13:00: Tom IVPB, Drug Enrique n 00 form: PDR/INJ, [id number], Dosing Weight 98.182, kg, Start date: 05/09/13 [...] tab, l 12:35: Zwiener Route: PO, Herm tin 00 Drug form: TAB, ONCE, Dosing Weight [...] Amado Rate: 150 l 03:31: Bubis ml/hr, [place] Infuse over: 6.7 hr, Route: IV, Dosing Weight 113.636 kg, Total Volume: 1,000, Start date: 05/08/13 22:31:00, Duration: 30 day, Stop date: 06/07/13 22:30:00 levalbutero 2012- No Linsey 0.63 mg, 3 Memoria l 05-09 Vanessa mL, Route: l 02:59: Read NEB, Drug Aliza nn Brice form: SOLN, PRN, Dosing Weight 113.636, kg, PRN Respirator y Protocol, Start date: 05/08/13 21:59:00, Duration: 30 day, Stop date: 06/07/13 21:58:00 Tylenol No Linsey 325 mg, 1 M emoria 05-09 Vanessa tab, l 02:58: Read Route: PO, Nicolas castle Brice Drug form: TAB, Q4H, Dosing Weight [...] Vanessa cap, l 02:00: Read Route: PO, Nicolas tin Brice Drug form: CAP, Q12H, Dosing [...] 2011-08 Yes Anita Marcelino 100 mg, 1 Memoria 100 mg oral 2-04 Escalante tab, PO, l tablet 19:05: Q6H, 24 [place] 27 tab, Substituti on Allowed, TAB aspirin 325 2011-08 Yes Anita Marcelino 325 mg, 1 Memoria mg tablet 2-04 Escalante tab, PO, l 19:05: Daily, 30 [place] 08 tab, Substituti on Allowed, TAB verapamil 2011-08 No Anita Marcelino 40 mg, 1 Memoria 40 mg oral 2-04 [place]alante tab, PO, l tablet 19:03: TID, 90 [place] 44 tab, Substituti on Allowed, TAB caffeine [...] 2-04 Escalante tab, l 15:00: Route: PO, [place] 00 Drug form: TAB, Daily, Dosing Weight [...] tab, PO, l tablet 14:30: Q12H, 6 [place] 09 tab, Substituti on Allowed, TAB Lipitor 40 2011-08 Yes Naomi Viki 40 mg, 1 Memoria mg oral 2-04 Quang tab, PO, l tablet 14:30: QPM, 30 [place] 06 tab, 3, 3, Substituti on Allowed, TAB Cipro 2011-08 No Anita Marcelino 250 mg, 1 Mem oria 2-04 [place] tab, l 05:00: Route: PO, [place] 00 Drug form: TAB, Q12H, Dosing Weight [...] 07/20/12 13:20:00, Stop date: 07/20/12 13:20:00 Navane 2011- No Baudilio 20 mg, 4 Mike sujey [...] 30 day, Stop date: 08/18/12 9:00:00 Zoloft 2011- No Baudilio 100 mg, 1 Mem oria [...] 30 day, Stop date: 08/18/12 9:00:00 influenza 2011- No SYSTEM 0.5 ml, Mem oria virus 2-03 SYSTEM Route: IM, l vaccine, 15:00: Drug Form: Her [place] inactivated 00 INJ, Start date: 07/20/12 9:00:00, Stop date: 07/20/12 9:00:00 Saline 2011- No Baudilio 5 ml, Memoria Flush 0.9% 2 Castellanos Route: l 03:00: Chahil IVP, Drug [...] Castellanos mL, Route: l 17:00: Chahil SUB-Q, [place] 00 Drug form: INJ, Q24H, Dosing Weight 113.636, kg, Start date: 07/19/12 11:00:00, Duration: 30 day, Stop date: 08/17/12 11:00:00 hydromorpho 2011-08 No David Agustin 1 mg, 0.5 Memoria ne 2-02 Spicer mL, Route: l 16:49: IVP, Drug [place] 00 form: INJ, ONCE, Dosing Weight 113.636, kg, Priority: STAT, Start date: 07/19/12 10:49:00, Stop date: 07/19/12 10:49:00 Plavix 2011-08 No Anita Marcelino 75 mg, 1 Mem oria 2-02 [place]al[place] tab, l 16:17: Route: PO, [place] 00 Drug form: TAB, Daily, Dosing Weight 113.636, kg, Priority: STAT, Start date: 07/19/12 10:17:00, Duration: 30 day, Stop date: 08/18/12 9:00:00 Saline 2011- No Baudilio 5 ml, Memoria Flush 0.9% 2-02 Castellanos Route: l 16:05: Chahil IVP, Drug [...] Memor ia 2-02 Daily, l 13:02: Substituti [place] 47 on Allowed Haldol 2011-08 Yes Baudilio [...] 59 on Allowed promethazin 2011-08 No David Velez 25 mg, 1 Memoria e 2 Spicer mL, Route: l 12:57: IVPB, Drug form: INJ, ONCE, Dosing Weight 113.636, kg, Priority: STAT, Start date: 07/19/12 6:57:00, Stop date: 07/19/12 6:57:00 hydromorpho 2011-08 No David Velez 1 mg, 0.5 Memoria [...] Tartrate [place] with food [facility] Eliquis Eliquis Yes James as [facility] directed [facility] Clopidogrel Clopidogrel Yes [...] Systolic (mm Hg) 2019-03-13 01:15:00 Mike rial [place] Diastolic (mm Hg) 2019-03-13 01:15:00 Mem orial [place] Temperature Oral (F) 2019-03-13 01:15:00 97.0 F [facility] [place] Respitory Rate 2019-03-13 01:15:00 Memori al [place] Heart Rate 2019-03-12 22:53:00 [facility] [place] Respitory Rate 2019-03-12 22:07:00 Memori al [place] Systolic (mm Hg) 2019-03-12 22:07:00 Mike rial [place] Diastolic (mm Hg) 2019-03-12 22:07:00 Mem orial [place] Heart Rate 2019-03-12 22:07:00 Memorial [place] Systolic (mm Hg) 2019-03-12 20:52:00 Mike rial [place] Diastolic (mm Hg) 2019-03-12 20:52:00 Mem orial [place] Temperature Oral (F) 2019-03-12 20:52:00 97.3 F [facility] [place] Respitory Rate 2019-03-12 20:52:00 Memori al [place] Heart Rate 2019-03-12 20:52:00 Memorial [place] Temperature Oral (F) 2019-03-12 16:26:00 97.3 F [facility] [place] Weight 2019-03-10 08:42:00 [facility] 2019-03-10 08:31:00 [facility] Height 2019-03-10 08:31:00 160.02 cm [facility] BMI Calculated 2019-03-10 08:31:00 Memori al [place] Weight 2019-03-09 20:31:00 [facility] BMI Calculated 2019-03-09 20:31:00 Memori al [place] Height 2019-03-09 20:31:00 172.72 cm [facility] [place] Temperature Oral (F) 2015-03-22 21:22:00 97.5 F [facility] [place] Heart Rate 2015-03-22 21:22:00 [facility] [place] Respitory Rate 2015-03-22 21:22:00 Memori al [place] Systolic (mm Hg) 2015-03-22 21:22:00 Mike rial [place] Diastolic (mm Hg) 2015-03-22 21:22:00 Mem orial [place] Heart Rate 2015-03-22 17:00:00 [facility] [place] Respitory Rate 2015-03-22 17:00:00 Memori al [place] Temperature Oral (F) 2015-03-22 17:00:00 97.4 F Memorial [place] Systolic (mm Hg) 2015-03-22 17:00:00 Mike rial [place] Diastolic (mm Hg) 2015-03-22 17:00:00 Mem orial [place] Systolic (mm Hg) 2015-03-22 14:14:00 Mike rial [place] Diastolic (mm Hg) 2015-03-22 14:14:00 Mem orial [place] Heart Rate 2015-03-22 14:14:00 Memorial [place] Temperature Oral (F) 2015-03-22 14:14:00 97.8 F Memorial [place] Respitory Rate 2015-03-22 14:14:00 Memori al [place] Weight 2015-03-17 00:52:00 [facility] [place] Height 2015-03-17 [...] Oral (F) 2014-10-31 21:18:00 98.6 F Memorial [place] Heart Rate 2014-10-31 21:18:00 [facility] [place] Respitory Rate 2014-10-31 21:18:00 Memori al [place] Systolic (mm Hg) 2014-10-31 21:18:00 Mike rial [place] Diastolic (mm Hg) 2014-10-31 21:18:00 Mem orial [place] Temperature Oral (F) 2014-10-31 15:55:00 98.2 F [facility] [place] Respitory Rate 2014-10-31 15:55:00 Memori al [place] Systolic (mm Hg) 2014-10-31 15:55:00 Mike rial [place] Diastolic (mm Hg) 2014-10-31 15:55:00 Mem orial [place] Heart Rate 2014-10-31 15:55:00 Memorial [place] Weight 2014-10-26 02:54:00 [facility] [place] BMI Calculated 2014-10-26 02:54:00 Memori al [place] Height 2014-10-26 02:54:00 160.02 cm [facility] [place] Diastolic (mm Hg) 2013-11-14 19:30:00 Mem orial [place] Heart Rate 2013-11-14 19:30:00 [facility] [place] Systolic (mm Hg) 2013-11-14 19:30:00 Mike rial [place] Respitory Rate 2013-11-14 19:30:00 Memori al [place] Temperature Oral (F) 2013-11-14 19:30:00 98.3 F [facility] [place] Heart Rate 2013-11-14 17:18:00 Memorial [place] Respitory Rate 2013-11-14 17:18:00 Memori al [place] Temperature Oral (F) 2013-11-14 17:18:00 98.0 F Memorial [place] Systolic (mm Hg) 2013-11-14 17:18:00 Mike rial Ac[place]ra Diastolic (mm Hg) 2013-11-14 17:18:00 Mem orial [place] Diastolic (mm Hg) 2013-11-14 16:00:00 Mem orial [place] Systolic (mm Hg) 2013-11-14 16:00:00 Mike rial [place] Temperature Oral (F) 2013-11-14 15:04:00 97.4 F [facility] [place] Respitory Rate 2013-11-14 07:00:00 Memori al [place] Height 2013-11-13 11:04:00 162.56 cm [facility] [place] Weight 2013-11-13 11:04:00 [facility] [place] BMI Calculated 2013-11-13 11:04:00 Memori al [place] BMI Calculated 2013-11-13 08:43:00 Memori al [place] Height 2013-11-13 08:43:00 160.02 cm Memorial [place] Weight 2013-11-13 08:43:00 [facility] [place] Heart Rate 2013-11-13 08:43:00 [facility] [place] Heart Rate 2013-05-12 16:17:00 [facility] [place] Diastolic (mm Hg) 2013-05-12 16:17:00 Mem orial [place] Systolic (mm Hg) 2013-05-12 16:17:00 Mike rial [place] Respitory Rate 2013-05-12 15:30:00 Memori al [place] Diastolic (mm Hg) 2013-05-12 12:53:00 Mem orial [place] Systolic (mm Hg) 2013-05-12 12:53:00 Mike rial [place] Respitory Rate 2013-05-12 12:53:00 Memori al [place] Heart Rate 2013-05-12 12:53:00 Memorial [place] Temperature Oral (F) 2013-05-12 12:53:00 99.1 F [facility] [place] Diastolic (mm Hg) 2013-05-12 08:31:00 Mem orial [place] Systolic (mm Hg) 2013-05-12 08:31:00 Mike rial [place] Respitory Rate 2013-05-12 08:31:00 Memori al [place] Heart Rate 2013-05-12 08:31:00 Memorial [place] Temperature Oral (F) 2013-05-12 08:31:00 99.8 F Memorial [place] Temperature Oral (F) 2013-05-12 04:50:00 99.8 F [facility] [place] Height 2013-05-09 03:31:00 160.02 cm [facility] [place] Weight 2013-05-09 03:31:00 [facility] [place] Respitory Rate 2012-07-22 01:09:00 Memori al [place] Systolic (mm Hg) 2012-07-22 01:09:00 Mike rial [place] Diastolic (mm Hg) 2012-07-22 01:09:00 Mem orial [place] Temperature Oral (F) 2012-07-22 01:09:00 98.6 F Memorial [place] Heart Rate 2012-07-22 01:09:00 [facility] [place] Diastolic (mm Hg) 2012-07-21 21:10:00 Mem orial [place] Systolic (mm Hg) 2012-07-21 21:10:00 Mike rial [place] Temperature Oral (F) 2012-07-21 21:10:00 97.2 F [facility] Heart Rate 2012-07-21 21:10:00 [facility] [place] Respitory Rate 2012-07-21 21:10:00 Memori al [place] Temperature Oral (F) 2012-07-21 18:26:00 98.5 F [facility] Heart Rate 2012-07-21 18:26:00 [facility] [place] Respitory Rate 2012-07-21 18:26:00 Memori al [place] Diastolic (mm Hg) 2012-07-21 18:26:00 Mem orial [place] Systolic (mm Hg) 2012-07-21 18:26:00 Mike rial [place] Weight 2012-07-19 12:37:00 [facility] [place] Height 2012-07-19 12:37:00 160.02 cm [facility] [place] Procedures Procedure Date / Time Performing Clinician Source Performed Spinal puncture, 2015-03-17 20:30:27 [facility] rmann therapeutic, for drainage of cerebrospinal fluid (by needle or catheter) Appendectomy [facility] [place] Cholecystectomy [facility] [place] Ankle fusion<sup>1</sup> Memoria l Cabrera Appendectomy [facility] Cabrera Cholecystectomy [facility] Cabrera Fixation of fracture using Memor ial [place] plate Hysterectomy [facility] Cabrera Encounters Start End Encounter Admission Attending Care Care Encounter Source Date/Time Date/Time Type Type Clinicians Facility Department ID 2020-11-25 2020-11-25 RefANTHONY Weir [id number] 00:00:00 00:00:00 Ludwig Gill [id number] [place] [id number] Professio [id number] nal 059 Building 2020-11-14 2020-11-14 Transition Elenita Siegel [id number] 00:00:00 00:00:00 of Care Brittney Gomez [id number] [place] [id number] 2020-11-072020-11-11 [facility] Tia Treadwell [facility] 1.2.84 [id number] [id number] 11:27:00 11:49:00 Encounter Apolinar Hardy [id number] [place] [id number] [place] [phone] [place] [address] ([facility]) 2020-11-07 2020-11-07 Office Jimbo [facility] [id number] 10:17:04 10:37:04 Visit Manuel Gill [id number] [place] [id number] Radha [id number] [address] 2020-03-28 2020-03-28 [facility] [id number] [facility] 16:00:00 16:00:00 t Xceive [facility] Medicine l Medicine Outpati ent Clinics 2020-02-21 2020-02-21 [facility] [id number] [facility] [address] 15:00:00 15:00:00 t Xceive [facility] l Medicine Outpati ent Clinics 2020-02-16 2020-02-16 [facility] [id number] [facility] 07:13:00 07:13:00 t Xceive [facility] l Medicine Outpati ent Clinics 2020-02-15 2020-02-15 [facility] [id number] 14:22:00 14:22:00 t Xceive [facility] Medicine l Medicine Outpati ent Clinics 2020-01-12 2020-01-12 [facility] [id number] [facility] 16:30:00 16:30:00 [facility] [employer] s [employer] [facility] Medicine l Medicine Outpati ent Clinics 2019-12-27 2019-12-27 [facility] [id number] [facility] [address] 14:45:00 14:45:00 t Xceive [facility] Medicine l Medicine Outpati ent Clinics 2019-09-27 2019-09-27 [facility] [id number] 15:00:00 15:00:00 t Xceive [facility] Medicine Outpati ent Clinics 2019-03-09 2019-03-12 Outpatient Natasha, [facility] [id number] 15:30:52 21:00:00 Cereliliya K 00 2019-03-09 2019-03-[address] [facility] [id number] [facility] 18:36:00 15:30:00 2015-03-16 2015-03-22 Outpatient Yissel [facility] [id number] 18:33:00 20:09:00 Gael Stephenson 11 2014-10-25 2014-10-31 [id number] 20:37:00 20:05:00 Amrou 69 2013-11-13 2013-11-14 [facility] [id number] 03:43:00 18:45:00 Amrou Results Test Description [...] code = MCH) 29.0 pg 27.0-31.0 [id number] [facility] 2019-03-12 08:51:0088.4[facility] KpqzfevFJGZNJCSQG3339-98-01 08:51:0032.2[facility]annPARATHYROID [id number] 08:51:001.05[facility]annPARATHYROID TKQLOZR0170-61-01 08:51:001.05[facility]CHE[facility] [id number] 21:57:0083 [facility]ann[facility] [id number] 21:57:0011.4[facility]ann[facility] PANEL 2019-03-11 21:57:008.2[facility]annCHE[facility] [id number] 21:57:0025[facility]annCHE[facility] [id number] 21:57:92052Yefukfdl HermannCHEM [id number] 21:57:003.4[facility]annCHE[facility] JAHXS2495-16-05 21:57:000.80[facility]annCHE[facility] [id number] 21:57:70579Zdhdsepz HermannCHEM PXMIS7219-16-24 21:57:68862 [facility] EETSR3011-13-13 21:57:004[facility]annPARATHYROID UOSNYET9496-21-77 21:57:001.07[facility] HermannPARATHYROID IBBYSCR6911-76-51 21:57:001.07[facility]annURINE AND HTHVK6524-42-08 21:57:004[facility] [place] URINE AND CEZZJ4961-09-64 21:57:00Negative (03/11/19 4:57 PM)[facility] URINE AND FTVIH5607-71-72 21:57:00<1.0[facility]ann[facility] STOOL 2019-03-11 21:57:00Negative (03/11/19 4:57 PM)[facility] STOOL 2019-03-11 21:57:00Negative *NA*(03/11/19 4:57 PM)[facility] ST[facility]OL 2019-03-11 21:57:00Negative (03/11/19 4:57 PM)[facility]OL 2019-03-11 21:57:001[facility] AND KQWGA3873-67-83 21:57:00Yellow *NA*(03/11/19 4:57 PM)[facility] AND FIPDV5234-92-51 21:57:00Slight *ABN*(03/11/19 4:57 PM)[facility] AND QWCFH8116-21-90 21:57:00 Test Item Value Reference Range Interpretation Comments UA Spec Grav (test code = UA Spec 1.016 1 Grav) [facility] WBIDM6661-48-09 21:57:00 Test Item Value Reference Range Interpretation Comments UA pH (test code = UA pH) 8.0 1 5.0-8.0 [facility] SYDV9509-84-18 21:57:007.4[facility] CHEM 2019-03-11 21:57:00709Iidojuyj [facility]annURINE FFCW5941-91-31 21:57:28695Hurkzkjh [facility]annURINE PTIE8019-19-08 21:57:01885Ytasqgem [facility]annURINE UBEK5664-75-85 21:57:00Negative (03/11/19 4:57 PM)[facility]annCHEM GINRM7343-13-32 09:03:00 109[facility]annCHEM NRXUY3484-72-31 09:03:002.9[facility]annCHEM PANEL 2019-03-11 09:03:16559Yxabnmfo HermannCHEM OWWAD1573-07-11 09:03:000.51[facility]annCHEM DHGIE9637-37-92 09:03:004[facility]annCHEM HVWOF5520-95-52 09:03:0079[facility]annCHEM UKWPI7967-76-56 09:03:007.6[facility]annCHEM SNRNL3381-22-66 09:03:009.9[facility]annCHEM TAGRP7642-37-90 09:03:0027 [facility]annCHEM IZNJD9716-46-96 09:03:95932Tfdonipj HermannCHEM PANEL 2019-03-11 09:03:003.7[facility]annCHEM ANDPR4488-12-51 09:03:002.0[facility] ZzxdibfCCPBADTYPP2198-93-82 09:03:008.1[facility] RnyiymgXKHGKSRJAT1806-57-73 09:03:67005Afjuwdna NokpdhvZKHRPRZQNG3825-41-80 09:03:0016.6[facility] QKXYYLPKTS8534-86-84 09:03:00 Test Item Value Reference Range Interpretation Comments MCH (test code = MCH) 29.0 pg 27.0-31.0 [facility] IwnqzpsRGMIOSJUFD7938-47-67 09:03:0033.0[facility] HermannHEMATOLOGY 2019-03-11 09:03:003.64[facility] VdannqkNVYHRXZCFQ0564-93-64 09:03:0010.6[facility] FiodrfbQMHWYAZXXH8115-49-17 09:03:009.3[facility] VejtmcmWTMTHPWRBT6390-71-08 09:03:0087.8[facility] BwlhrilAVNMQULTVS8348-16-50 09:03:0032.0[facility] UAIKLCOXVD1204-42-38 09:03:004.0[facility] WplmriiYONQDPDCEV7404-26-16 09:03:00 62.5[facility] HbdqlpfGURYKGPENF9424-56-80 09:03:0027.8[facility] HermannHEMATOLOGY 2019-03-11 09:03:004.5[facility] OmnznhwWZLZMCTWRC6677-94-45 09:03:005.8[facility] VwqoynvOLFGSRNDKV0729-50-62 09:03:002.6[facility] KroljfgATQPWMCIMM8902-93-57 09:03:000.4[facility] VyyccztZPUNMJYZIN0849-21-51 09:03:000.4[facility] YTATTTTTEW0506-63-02 09:03:001.2[facility] VnblwtcHQZUXEEEKJ7808-34-48 09:03:000.1 [facility]annPARATHYROID HIIZGLY4837-65-87 09:03:000.91[facility] PARATHYROID ZPOBFZF9267-80-64 09:03:000.96[facility] XhtqoxjLTBQAOQGHR8200-48-01 19:00:000.3[facility] YhoetziENVPDZUABA8960-23-54 19:00:000.4[facility] PALKVWQYLE2973-72-92 19:00:002.8[facility] OfnhlydJPGRMGNTBQ2379-82-83 19:00:000.1 [facility] LjgupbjTYLINDOIGE0758-08-64 19:00:0061.6[facility]annHEMATOLOGY 2019-03-10 19:00:0029.1[facility] MjdpxuvDBYUKUUYLC8818-47-41 19:00:001.2[facility] NatytkhJOOXDQPSEY7172-40-09 19:00:004.5[facility] ZntqitnUIOJPBQQEB2124-28-82 19:00:005.8[facility] NqatwlwBHLMMZCHRG7869-61-69 19:00:003.6[facility] EOLCJZMPSH5204-74-79 19:00:007.9[facility] SujbgtiCLWZHGYKLO0458-54-11 19:00:00 34.6[facility] LivemnmACVQKNKHBP0490-91-34 19:00:00 Test Item Value Reference Range Interpretation Comments MCH (test code = MCH) 28.6 pg 27.0-31.0 [facility] DlytchaUCJEFIETFW7342-97-50 19:00:0088.5[facility] HermannHEMATOLOGY 2019-03-10 19:00:55271Jnonywvl FdjxrvcQFTESGLRJM4383-41-95 19:00:0016.7[facility] ZeafhnbTHYCAQKHGR0452-92-56 19:00:0032.3[facility] JdsbzilPAZBQHDCID5554-24-98 19:00:0011.2[facility] ThpsinsPFMDOAEGNN3767-57-36 19:00:003.91[facility] YJCLWHPYDR7612-97-57 19:00:009.5[facility] ZlpsypqXHHNYXZUIP3437-38-98 19:00:00 Test Item Value Reference Range Interpretation Comments INR (test code = INR) 1.06 1 0.85-1.17 [facility] KuhrwieLMZSMUDTLN0918-73-37 19:00:00 Test Item Value Reference Range Interpretation Comments PT (test code = PT) 13.6 s 12.0-14.7 [facility] IqhjurhPYFHYTXKDQ9269-30-71 19:00:00 Test Item Value Reference Range Interpretation Comments PTT (test code = PTT) 36.3 s 22.9-35.8 [facility] HermannCARDIAC JLDLGBU5075-77-99 11:47:000.30[facility] HermannCHEM PANEL 2019-03-10 11:47:001.6[facility] HermannCHEM AYPCT2155-78-94 11:47:002.1[facility] GwlfqieQQQHKV9599-82-18 11:47:00 Test Item Value Reference Range Interpretation Comments VLDL (test code = VLDL) 39 1 [facility] GuoxpwvYYMMNC9606-81-50 11:47:0036[facility] FiotquwFGTIFX7070-80-06 11:47:0028[facility] EhkxllaNUKCJU1458-06-67 11:47:06246Ilcqdtlb HermannLIPIDS 2019-03-10 11:47:13100Gqhwkalx XssfvttSZZZCP4620-42-00 11:47:00 Test Item Value Reference Range Interpretation Comments CHD Risk (test code = CHD Risk) 3.68 1 3.90-5.80 [facility] VDDEVVPFQ2394-80-76 11:47:004.8[facility] HermannANEMIA QGFHF5643-22-21 09:18:04311Otfcnrfy HermannANEMIA LLLDX1650-01-92 09:18:004.4 [facility]annCARDIAC BKPAOLP3338-67-25 09:18:0010[facility] HermannCHEM PANEL 2019-03-10 09:18:94645Easnjtyw YwzvrguXSPCCHXTOJ1211-45-30 07:49:00 Test Item Value Reference Range Interpretation Comments PTT (test code = PTT) 42.4 s 22.9-35.8 [facility] PuqmpraBVFSBLEXMG5635-90-88 07:49:00 Test Item Value Reference Range Interpretation Comments PT (test code = PT) 13.5 s 12.0-14.7 [facility] AloxqqyVYOXYRNUSU3156-90-08 07:49:00 Test Item Value Reference Range Interpretation Comments INR (test code = INR) 1.05 1 0.85-1.17 [facility]annCARDIAC WJYKZFO3082-86-54 07:00:000.48[facility]annCARDIAC QWTPTXW3632-76-71 22:16:000.50[facility] HermannCARDIAC PZNFUOQ3119-85-48 22:16:00 63[facility] HermannCHEM QNAUQ8590-00-31 22:16:001.2[facility] HermannHEMATOLOGY 2019-03-09 22:16:00 Test Item Value Reference Range Interpretation Comments PTT (test code = PTT) 31.7 s 22.9-35.8 [facility] XqqooanZCXZILRKMW2268-48-43 22:16:00 Test Item Value Reference Range Interpretation Comments INR (test code = INR) 1.07 1 0.85-1.17 [facility] FlenyywAFTPEMOPJZ0807-21-07 22:16:00 Test Item Value Reference Range Interpretation Comments PT (test code = PT) 13.7 s 12.0-14.7 [facility] HermannCHEM GTBWJ7968-57-83 09:12:003.5[facility] HermannCHEM PANEL 2015-03-22 09:12:001.8[facility] JwyvtbmINZBRGZUTESM5039-56-24 09:12:0022[facility] CnckcohSXWARBMALHFR2272-06-22 09:12:008.9[facility] MlcsorjFVHDJKJGXJGX7713-44-95 09:12:0014.6[facility] PybzqipCYFVYKIEQPIR9591-17-38 09:12:92528Lscqifys [place] PTGSLQGJLCEG9057-04-03 09:12:003.6[facility] NvlslagTBEQDXQUQBLE4210-38-32 09:12:000.9[facility] InekbbtNFREGSNXWYHI4861-86-17 09:12:02962Mjfwbqnt [place] TWJCXVMVNKJL4603-06-25 09:12:0081[facility] PifgwowVNFXZPHTUMZG4328-38-51 09:12:00 10[facility] OuyugzwVFPQBAQXDXHF2954-16-16 09:12:0075[facility]annHEMATOLOGY 2015-03-22 09:12:007.5[facility] BzigspvFBDDITLFPT3043-67-71 09:12:28858Hlokicmj VuxyrdyFYOWOXILYN9093-25-05 09:12:0011.7[facility] OavblatGTBIWBZVMF2891-68-73 09:12:0032.6[facility] WyptlmrJFCFATJTDF4269-37-67 09:12:0084.1[facility] [place] GHKEVPDWZW7510-17-93 09:12:003.87[facility] NirffvpQVJFDTOBXY4845-26-78 09:12:00 10.4[facility] TxuhgmzXSQDJVKCZD0173-56-45 09:12:0031.9[facility] HermannHEMATOLOGY 2015-03-22 09:12:00 Test Item Value Reference Range Interpretation Comments MCH (test code = MCH) 26.8 pg 27.0-31.0 [facility] DrqddrhRRCOWFKIAQ7729-47-09 09:12:0017.6[facility] HermannHEMATOLOGY 2015-03-22 09:12:001.0[facility] WbegydnMBOWXGTGPE3043-59-04 09:12:007.4[facility] UhitrimCHIQQLJQWF2582-86-38 09:12:0038.6[facility] OnmgqqhYARMCCWPRW2268-94-43 09:12:0052.0[facility] BdxdzxhTQVGZFBOOB1482-23-11 09:12:001.0[facility] EPUHAGXPQB5487-39-84 09:12:006.1[facility] LiexoikIZVHOVZIAV7849-09-50 09:12:000.1 [facility] UdjbdbuLXPNWFHZMM0745-72-48 09:12:000.9[facility] HermannHEMATOLOGY 2015-03-22 09:12:000.1[facility] XsqazshWXUTLKUBID4525-15-27 09:12:004.5[facility] UszxexvEPADBEWJBG3587-87-10 16:38:005.0[facility] EapcsktYNQQJRKUKF0090-56-63 16:38:0014.5[facility] WkofyrtDYNXRLHMQE8885-57-51 16:38:0016.2[facility] YWHZPYZCJQ8059-60-78 16:38:0015.1[facility] HiowenmJPXGGHBCFP6411-87-35 16:38:00 49.2[facility] RlbdekqTQDYSQSVJM0523-71-06 16:38:000.34[facility] HermannIMMUNOLOGY 2015-03-21 16:38:006.8[facility] YjutfieKPFKDWKDCN2137-91-89 16:38:003.35[facility] LrqzhehJBEWWSMDLJ9054-67-07 16:38:000.99[facility] LsvzslfBGFGAZTOFV5464-95-84 16:38:001.10[facility] CkkcddiUUJVTKNDGM9567-20-02 16:38:001.03[facility] [place] [place] CHEM WXDQU1235-52-54 09:35:04959Hultroqa HermannCHEM KXHAK3813-66-37 09:35:009.1 [facility]annCHEM QCSOO5925-52-53 09:35:003.8[facility] HermannCHEM PANEL 2015-03-21 09:35:0021[facility] HermannCHEM NYXKN1506-38-79 09:35:59638Bxlrgvyj HermannCHEM QSUZV2082-74-68 09:35:0011[facility] HermannCHEM RKARV9207-23-52 09:35:16716Hukwkihv HermannCHEM SSRXJ1019-69-05 09:35:0083[facility] HermannCHEM AOSRU8782-86-49 09:35:000.7[facility] HermannCHEM ALGMZ5171-42-31 09:35:0014.8 [facility]annCHEM NTTKR6210-95-42 09:35:001.8[facility] HermannCHEM PANEL 2015-03-21 09:35:004.1[facility] HelyycwKHDLNUSHGJ1612-72-54 09:35:000.1[facility] HjhqxraKQEMJUJHEZ5504-25-68 09:35:000.7[facility] JfjbdnaYRCAKKGOAG9940-00-19 09:35:001.0[facility] FscamdsDXLEVIRXEJ0959-26-73 09:35:001.2[facility] [place] RLRPMHASLL6293-35-82 09:35:003.7[facility] ToxagacWPLOROMHQI8050-06-39 09:35:005.4 [facility] ZmlaxibVCRFPMUEZM7029-63-43 09:35:006.9[facility] HermannHEMATOLOGY 2015-03-21 09:35:000.1[facility] JgyhvfmXFRVEODDJQ8563-98-18 09:35:0054.0[facility] BphgvhoKQBYZLQZRK8507-40-41 09:35:0036.9[facility] QfokrdjHBVDXZDSSP4242-98-96 09:35:0032.9[facility] AikunbyYWHTYNHUEB0102-26-45 09:35:0010.8[facility] [place] FAVVQUAZVE1191-11-37 09:35:003.91[facility] LynguzeYLCBDBCVIB4339-59-05 09:35:00 10.0[facility] WivfxeoVNXEXMMJKG4783-63-42 09:35:0032.9[facility] HermannHEMATOLOGY 2015-03-21 09:35:0017.2[facility] DfgrjjbOEQCYAERBT3784-21-76 09:35:00 Test Item Value Reference Range Interpretation Comments MCH (test code = MCH) 27.7 pg 27.0-31.0 [facility] ZvnqemjSARQSXKNUA6034-04-62 09:35:0084.2[facility] HermannHEMATOLOGY 2015-03-21 09:35:007.5[facility] IecpafgPCSVCHYXQI3443-41-47 09:35:61975Udcfdssu LtkpvpdDYSZFTFGCE7800-35-30 04:39:036.4[facility] HermannCHEM DDSGS5847-26-37 08:41:75989Qtijpsmf HermannCHEM CGQLS7574-91-20 08:41:97289Dqupjhbw HermannCHEM WVDNW8570-78-12 08:41:0071[facility] HermannCHEM DSCTN2013-35-69 08:41:007[facility] HermannCHEM NHNNK1400-01-42 08:41:000.7[facility] HermannCHEM SQFGM1892-67-42 08:41:003.9[facility] HermannCHEM RRUKI7056-01-69 08:41:009.2[facility] HermannCHEM XELQY5577-71-01 08:41:16825Fwwrsgmm HermannCHEM OCIPE8580-41-00 08:41:0023 [facility]annCHEM DOVWO3716-83-14 08:41:0013.9[facility] HermannCHEM PANEL 2015-03-20 08:41:001.9[facility] HermannCHEM VSZVG1155-39-57 08:41:003.6[facility] UbkrcieXTVCYDSIBS1470-38-06 08:41:0033.2[facility] GdadifzAUYFMJKLPT3131-45-14 08:41:62814Fpttrawx UxopxgcUCLCVHPTBZ4494-46-60 08:41:0017.2[facility] GODMSPELJR9527-44-70 08:41:004.07[facility] IegjyvcAHWTWKESWX3084-37-02 08:41:00 9.6[facility] TpbrqipIJDNIUBBAZ7272-77-33 08:41:0011.2[facility] HermannHEMATOLOGY 2015-03-20 08:41:0033.6[facility] ZpmxthkCDHVUTVPDY2072-82-39 08:41:0082.6[facility] TcdbnajFVGYDFOPLZ3253-69-91 08:41:00 Test Item Value Reference Range Interpretation Comments MCH (test code = MCH) 27.4 pg 27.0-31.0 [facility] JugoyzyZBKBXZOUIR8090-53-16 08:41:007.7[facility] HermannHEMATOLOGY 2015-03-20 08:41:0055.3[facility] LhxizetTYWQQFFWDP5196-45-03 08:41:001.9[facility] WrxwzpsKEXLRDDSIQ0320-47-79 08:41:0035.6[facility] JlrikvlWXZNGFJHCT3472-64-01 08:41:006.2[facility] DxttonfXYLMBBKQKP5326-76-78 08:41:001.0[facility] SWKDVOIVWP7910-25-05 08:41:005.3[facility] GrpmolmUCUBZIDAGL1705-70-40 08:41:003.4 [facility] YnzkqjfCLBRAUTEEA9591-33-38 08:41:000.6[facility] HermannHEMATOLOGY 2015-03-20 08:41:000.1[facility] XdfpnfwQYADHJGMMZ1889-46-61 08:41:000.2[facility] NpfvkshJVPWMOFFNJ6034-53-89 08:41:63604Epvxsuhu BhiivmkEGZZSJYGMG2005-46-49 16:56:000.91[facility] CburmyyTRCLYUIBAB8651-86-37 16:56:00Negative (03/19/15 11:56 AM)[facility] CnzpagdWGTKMYDZJO7870-68-19 16:56:00Non Reactive *NA*(03/19/15 11:56 AM)[facility] UiahfsvYJHLNPTZPR3129-37-64 21:44:00Negative *NA*(03/18/15 4:44 PM) [facility] HermannVIRAL - WAZVLUSA5466-41-34 21:44:00<0.90[facility] [place] CARDIAC PWSZIGA0840-68-29 00:57:00<0.02[facility] QaxjmuuMTLCBGMNON2365-62-10 18:50:00 Test Item Value Reference Range Interpretation Comments PT (test code = PT) 14.5 s 12.0-14.7 [facility] ZeqggtiUVVJXDCWMY9676-88-56 18:50:001.12[facility] HermannHEMATOLOGY 2015-03-17 18:50:00 Test Item Value Reference Range Interpretation Comments PTT (test code = PTT) 31.2 s 22.9-35.8 [facility]annCARDIAC UQVAXRF0298-37-97 17:15:00<0.02[facility] HermannCHEM CBELF8936-61-27 17:15:0071.0[facility] HermannBODY TKQSZP0814-55-10 16:15:0042 [facility] HermannBODY HMYEOI6825-07-25 16:15:009[facility] HermannBODY FLUIDS 2015-03-17 16:15:001[facility] HermannBODY MBZGLG7915-81-88 16:15:0090[facility] HermannBODY UVMMFS9240-97-66 16:15:00Clear (03/17/15 11:15 AM)[facility] [place] BODY UFQRHD0107-91-51 16:15:00Colorless (03/17/15 11:15 AM)[facility] HermannBODY BULYTQ4549-47-92 16:15:00 Test Item Value Reference Range Interpretation Comments Tube Num CSF (test code = Tube Num CSF) 3 1 [facility] HermannBODY FHFJNR4247-74-46 16:15:00Colorless (03/17/15 11:15 AM) [facility]annBODY QCIVUQ6514-37-67 16:15:003[facility] HermannBODY FLUIDS 2015-03-17 16:15:63100Aazshqek HermannBODY FRZZQZ2238-09-14 16:15:0071[facility] CrmmzgdSFZPBJYQZH0449-10-66 16:15:00Non Reactive (03/17/15 11:15 AM)[facility] HermannMOLECULAR EQNYARWHDM5695-84-68 16:15:00Negative 9(03/17/15 11:15 AM) [facility] HermannMOLECULAR MVGWQRPCWG3431-06-03 16:15:00Negative 8(03/17/15 11:15 AM)[facility] HermannVIRAL - ITZSLRNZ8417-81-57 16:15:00Negative (03/17/15 11:15 AM)[facility] HermannBACTERIAL - YJKNCHLB4157-44-94 12:34:00Negative (03/17/15 7:34 AM)[facility] TpbrixhLGPBQYYRUS4663-63-79 04:26:72405Nwglojka HermannBLOOD BANK JIRZDHL7607-76-95 02:18:00Negative (03/16/15 9:18 PM)[facility] HermannCHEM PANEL 2015-03-17 02:18:000.7[facility] HermannCHEM MRBJD2076-91-93 02:18:0012[facility] HermannCHEM NOEMU9380-27-90 02:18:003.9[facility] HermannCHEM CMCAN0647-83-19 02:18:005[facility] HermannCHEM XDSMO5488-11-39 02:18:69140Dnpmgbzs HermannCHEM OQEBR1670-61-80 02:18:000.2[facility] HermannCHEM MOZDV6138-68-18 02:18:0019 [facility] HermannCHEM QZSMS2663-26-10 02:18:006.8[facility] HermannCHEM PANEL 2015-03-17 02:18:002.9[facility] HermannDRUG CVGZTE6609-99-59 02:18:00See Note *NA*(03/16/15 9:18 PM)[facility] HermannDRUG QQYCAX4496-89-32 02:18:00Negative *NA*(03/16/15 9:18 PM)[facility] HermannDRUG IECVML2140-06-43 02:18:00Negative *NA*(03/16/15 9:18 PM)[facility] HermannDRUG VZGJGX4377-25-92 02:18:00Negative *NA*(03/16/15 9:18 PM)[facility] HermannDRUG FWHOTE4408-07-86 02:18:00Negative *NA*(03/16/15 9:18 PM)[facility] HermannDRUG KHEOPB9642-06-08 02:18:00Negative *NA*(03/16/15 9:18 PM)[facility] HermannDRUG KAKQRS9069-47-99 02:18:00Negative *NA*(03/16/15 9:18 PM)[facility] HermannDRUG EYNFEL7652-27-31 02:18:00Negative *NA*(03/16/15 9:18 PM)[facility] HermannDRUG NWXWKG8566-34-91 02:18:00Negative *NA*(03/16/15 9:18 PM)[facility] HermannDRUG SGCXJY8613-46-92 02:18:00Negative *NA*(03/16/15 9:18 PM)[facility] EduikqiVSAWACIVZV6251-96-76 02:18:00 Test Item Value Reference Range Interpretation Comments PTT (test code = PTT) 29.7 s 22.9-35.8 [facility] HermannPARATHYROID NZDPLIU0167-09-99 02:18:001.15[facility] PARATHYROID EYFBGIJ6122-03-72 02:18:001.12[facility] HermannURINE AND STOOL 2015-03-17 02:18:00Negative *NA*(03/16/15 9:18 PM)[facility]annURINE AND STOOL 2015-03-17 02:18:00Negative (03/16/15 9:18 PM)[facility]annURINE AND STOOL 2015-03-17 02:18:00Negative (03/16/15 9:18 PM)[facility]annURINE AND STOOL 2015-03-17 02:18:00Negative (03/16/15 9:18 PM)[facility]annURINE AND STOOL 2015-03-17 02:18:00<1[facility]annURINE AND PRBXV4489-08-59 02:18:007.0 [facility]annURINE AND ACBKL9779-14-42 02:18:00Clear (03/16/15 9:18 PM) [facility]annURINE AND TLAQQ0988-61-32 02:18:001.009[facility] HermannURINE AND QYPTU3526-30-64 02:18:00Light Yellow *NA*(03/16/15 9:18 PM)[facility] [place] NPYJKBXLMQ5882-32-22 13:30:00 Test Item Value Reference Range Interpretation Comments PTT (test code = PTT) 36.1 s 22.9-35.8 [facility] GmyiepxNJZRYRNCNI0998-85-87 13:30:00 Test Item Value Reference Range Interpretation Comments PT (test code = PT) 14.6 s 12.0-14.7 [facility] RraiuybEIDKYDUMVC4124-31-27 13:30:001.13[facility] HermannTOXICOLOGY 2014-10-31 13:30:675632Khofhegs HvhgkxmAKOOWPBBWQ5879-48-06 13:30:0025.2[facility] TqnltzpJTPABPVDDO6049-82-95 06:18:00 Test Item Value Reference Range Interpretation Comments PT (test code = PT) 14.1 s 12.0-14.7 [facility] XdbvnbdOBJOPEFXTN5390-47-37 06:18:0010.0[facility] HermannHEMATOLOGY 2014-10-31 06:18:003.22[facility] BbdidmzMURFRWYNPM5422-37-25 06:18:0028.9[facility] SohirrxEFDFSMVMOD7166-45-08 06:18:009.7[facility] KrpdddhMZQPTQJDQT2518-10-33 06:18:0033.4[facility] LdwqmztHTOTPENSRX6623-75-97 06:18:00 Test Item Value Reference Range Interpretation Comments MCH (test code = MCH) 30.0 pg 27.0-31.0 [facility] VwxjxuiTWUUFZEBTB6679-82-71 06:18:0089.8[facility] HermannHEMATOLOGY 2014-10-31 06:18:008.2[facility] KtsqkkcFUOZRLHRDP6589-22-46 06:18:39230Fxqsoywa PlkpgkcQERMXWSZQW0380-75-66 06:18:0016.4[facility] HermannPARATHYROID PROFILE 2014-10-31 06:18:001.08[facility] HermannPARATHYROID WGCSQVA5633-72-05 06:18:00 1.05[facility] HermannCHEM UQKZO9973-48-98 06:18:003.1[facility] HermannCHEM PANEL 2014-10-31 06:18:001.8[facility] EeepsqyHPWMPDPLGSJC9645-81-12 06:18:0014.1 [facility] XdczwzlHLZKYTIMVUYD3078-55-65 06:18:15500Ccetjqcq HermannELECTROLYTES 2014-10-31 06:18:05997Gwnltkss QeozhjjDFQVIQYSNLYJ3411-57-45 06:18:38672Lbgiguja LydpdoxDXVLXUDVNFFX7057-67-28 06:18:004.1[facility] YriktouROHDXHOKWQHB0884-28-59 06:18:008.5[facility] CkslluiMWMOXCWPWKPQ0430-07-23 06:18:0025[facility] [place] [facility] GTECZMZWNDXK8166-40-53 06:18:000.6[facility] LxjabqbXJCTQGTFUIAH8634-18-68 06:18:0062[facility] KkmnsehSYKEZYGJEJQB5661-55-17 06:18:006[facility] ELLEEVMUCL0959-45-61 06:18:000.1[facility] AvnrpnyYGVMQBTZTN9854-64-88 06:18:005.7 [facility] PplvhaoHDBKEGTAWX7538-68-69 06:18:005.0[facility]annHEMATOLOGY 2014-10-31 06:18:0031.1[facility] OepcrmiVILBQXSSVW1902-27-80 06:18:005.7[facility] EsxbozcFOXNSLKLHH9896-66-14 06:18:0057.7[facility] FliyldaFUCXSOLZHE7635-55-59 06:18:000.5[facility] ViibsbeLTDCPZOWTK1773-26-68 06:18:000.6[facility] NVLLURLGMA6704-87-03 06:18:000.5[facility] QcetddiJPFTICRPQP9694-50-31 06:18:003.1 [facility] DhuwumoDKLCPNBJPR7823-57-15 06:18:001.08[facility]annHEMATOLOGY 2014-10-31 06:18:00 Test Item Value Reference Range Interpretation Comments PTT (test code = PTT) 33.9 s 22.9-35.8 [facility]annCARDIAC QNWHUCU6816-38-87 07:00:0070[facility]annCHEM PANEL 2014-10-30 07:00:003.2[facility]annCHEM UMQAM2785-30-43 07:00:001.8[facility] DreqqqwCUDYURZJVZYV9487-33-05 07:00:0010.6[facility] YkdksooYDJJYBXJTVWL0571-85-91 07:00:0079[facility] WptkmexQBFAGOEPBXGF9054-93-50 07:00:008[facility] CAFPMONJBRNC2022-19-13 07:00:000.6[facility] NeodtlfEBWFUHVTZMJT7748-17-38 07:00:0027[facility] AcjldreIGHHKYIERYTG8271-43-62 07:00:008.1[facility] EAQKUXITQEEX0582-45-40 07:00:003.6[facility] LhqjpnnCPQHINNHZGGU6541-92-15 07:00:47184Apimurag TlndvrwJPOWWOPTBGJV0259-11-48 07:00:37145Zyrgvtfa [facility] YTKKMLGRLHWM2776-78-04 07:00:22394Ouqipgma QxnfdkgBVQFTYBDLZ9240-82-36 07:00:00 0.4[facility] UjaagosXHNASOPCFZ4203-34-00 07:00:004.9[facility]annHEMATOLOGY 2014-10-30 07:00:000.6[facility] JocgpvlDXCZIFLOOW1307-14-19 07:00:0049.4[facility] HqdpuixBXCALEUCCG8358-51-04 07:00:005.8[facility] QxwqylyTQTWSBMNMT7103-53-79 07:00:003.7[facility] NvgukioSQTKLFWONH7925-90-45 07:00:0041.4[facility] LDQCVHKSTN0322-33-52 07:00:000.4[facility] PyfepdhXOUPPMTKGP1243-77-75 07:00:005.1 [facility] LzyqpujCDMWQDQBPC7867-70-67 07:00:00 Test Item Value Reference Range Interpretation Comments MCH (test code = MCH) 29.4 pg 27.0-31.0 [facility] CfbgrpsEUQKGBFLBA0927-15-34 07:00:0027.5[facility]annHEMATOLOGY 2014-10-30 07:00:0016.3[facility] ZikjprfUHZJWTTCCD5965-80-47 07:00:77066Nivlngyn AibpbssDZTBKEEQEU4857-27-52 07:00:008.4[facility] IwzmbefEODRPYNEZD7609-20-13 07:00:009.1[facility] LbwdiawFBAAAOIMLV4987-69-81 07:00:0033.0[facility] [place] YBKUDVWWCP9232-64-51 07:00:003.09[facility] JlbvtytNFINTXPQVO4658-71-86 07:00:00 11.8[facility] YjlzuqqAJLVMJGPKK1253-86-44 07:00:0089.0[facility]annHEMATOLOGY 2014-10-30 07:00:00 Test Item Value Reference Range Interpretation Comments PT (test code = PT) 13.5 s 12.0-14.7 [facility] GdkgasgIZWDYCXWPO2704-43-41 07:00:001.03[facility]annHEMATOLOGY 2014-10-30 07:00:00 Test Item Value Reference Range Interpretation Comments PTT (test code = PTT) 31.6 s 22.9-35.8 [facility]annPARATHYROID ZSDDFWY5786-30-83 07:00:001.10[facility] PARATHYROID GHJHUKA7077-25-47 07:00:001.11[facility] HermannCARDIAC ENZYMES 2014-10-30 05:00:0049[facility]annCARDIAC GZLKZKD4560-54-75 05:00:00<0.010 [facility]annCARDIAC FLVJCCB6875-13-40 05:00:000.02[facility]annHEMATOLOGY 2014-10-30 05:00:000.2[facility] LpgdfssKKDFNKYPAJ9233-30-97 05:00:000.3[facility] AkoqdkpKDTABVPJSU4756-56-60 05:00:000.4[facility] EuqramoDPCSXFGWWX0811-83-81 05:00:003.2[facility] UzdoiqkKYFBLUDXWC2680-48-41 05:00:002.3[facility] UNFDYCFFJH8686-92-60 05:00:004.8[facility] PxtvbiyRLKNCFIKTS4868-40-01 05:00:003.1 [facility] FqkdzzaSVSGESYCBY9078-84-66 05:00:0053.2[facility]annHEMATOLOGY 2014-10-30 05:00:0038.5[facility] VqzzhygIMKVIBHTWD5137-12-89 05:00:0014.9[facility] MeitmdiGDMYMPDLFK4720-72-41 05:00:0032.8[facility] JitwkhjRAZGRTINZU0315-82-39 05:00:00 Test Item Value Reference Range Interpretation Comments MCH (test code = MCH) 30.3 pg 27.0-31.0 [facility] DyzwnfjFWNHBMUEUU6864-56-79 05:00:0092.2[facility]annHEMATOLOGY 2014-10-30 05:00:0016.3[facility] HhcotqaGMCJWZICYF5934-56-95 05:00:004.9[facility] TcxhrawWGFVWDKASZ0395-72-93 05:00:001.61[facility] GcukkinNRJKIAOECY8388-24-20 05:00:006.0[facility] HkcqvhmMQWTPONFDS0035-08-34 05:00:008.1[facility] NQLSPAGDPX0555-51-82 05:00:0073[facility]annPARATHYROID IBXZJJL2790-42-82 05:00:000.63[facility]annPARATHYROID NSNNGNP5981-30-17 05:00:000.62[facility]annCARDIAC WQUIDLV2318-86-40 23:18:00<0.02[facility]annCARDIAC ENZYMES 2014-10-29 23:18:00<0.010[facility]annCARDIAC QFIVLOY6271-44-59 23:18:0083 [facility]annCARDIAC IZEZGND7231-62-85 23:18:000.7[facility]annCARDIAC XTASGBW9067-07-94 23:18:000.6[facility] TcwvmkjBXFIURLCEE0256-66-64 21:45:836445 [facility] CveasavENCKORXMDK6904-60-35 21:45:0023.9[facility]annCHEM PANEL 2014-10-29 10:42:000.7[facility] HermannCHEM KAUXU0993-51-32 07:00:001.8[facility]annCHEM CUQCK3145-68-08 07:00:002.8[facility] PggwvmeLHOOFJSIBDTT4984-05-34 07:00:0011.0[facility] CvfinsiMBSGKBRDAPZH5748-63-87 07:00:0010[facility] PLZLNILUZHWP3139-02-98 07:00:0083[facility] QrqvypnILGWTPKAOXQP3805-65-53 07:00:00 145[facility] ApcoxuzSNHHLWDOTBGW4411-64-63 07:00:000.7[facility] EGRQZNKINNSM6163-17-30 07:00:83557Rhdkeyru KblmdpvDMBZXSZKEYER9778-20-06 07:00:0024[facility] BnzpanuFDMNAVVLIPGR5046-85-26 07:00:007.9[facility] GOIQFYXSYVYI6954-90-89 07:00:89634Clriwviw SlntmwwPPCURYLBPDAO9106-04-09 07:00:004.0[facility] DhcmljbBHTYASVVNC3992-26-36 07:00:000.1[facility] YFSZUQLDIN8787-40-81 13:36:009.7[facility] TqsxlliNBHWPSGSRM4421-66-83 11:00:00 Test Item Value Reference Range Interpretation Comments Pat Od Value (test code = Pat Od 0.046 1 Value) [facility] UimozviXNELWEQRXG8741-90-77 11:00:00 Test Item Value Reference Range Interpretation Comments Pos CO Value (test code = Pos CO 0.392 1 Value) [facility] CdepmepETFEXSBCHL8426-45-57 11:00:00Negative (10/28/14 6:00 AM)[facility]annCHEM NOKGS1931-20-42 15:45:001.0[facility] EqkdmvgLPFJXRRRER6609-30-53 11:00:0024.4[facility] HermannTHYROID BTEFZ9297-17-24 11:00:000.120[facility]annTHYROID JAXKH9548-51-81 11:00:000.96[facility]annCHEM WSVQN2411-06-12 07:00:001.6[facility] ShshkmoJFDJWFWQGJ3473-52-62 07:00:00Normal (10/27/14 2:00 AM) [facility] MfrgymuKPEGVZMGZA5597-12-02 07:00:00Normal (10/27/14 2:00 AM)[facility] VxusdxtAVCJHXJLOL7194-31-67 01:49:0028[facility] QcbitrwAILEKKJURC7238-61-82 23:06:00<0.1[facility] PbhkamiGLEQKNNUZE6938-09-74 23:00:00<0.1[facility] HermannBLOOD BANK ISAQWEA3036-38-66 21:24:00Negative (10/26/14 4:24 PM)[facility]annCHEM VXHXV9623-64-94 21:14:0070[facility]annCHEM ODZLS7220-29-35 21:14:000.15[facility] UvxfudbFDZACKJDQZ5778-34-62 21:14:57316Uqicrfka [place] NRKRWCHSES2731-37-88 21:14:000.21[facility] NtkvafiYLALPOTOXX8687-12-17 21:14:00 29.2[facility]annCARDIAC FSIDAAT2761-29-68 18:30:00<0.010[facility] CARDIAC QBEORZM4795-00-31 18:30:000.02[facility]annCHEM UMZWG2562-23-44 18:30:000.14[facility] FbokqiqGFDDZFCDZZ9873-80-33 18:30:00Normal (10/26/14 1:30 PM)[facility] XaordtpIOUDZEDFDV8465-79-26 18:30:00Normal (10/26/14 1:30 PM)[facility] JvpwwemTZMJRISGJI0469-27-54 18:30:000.0[facility] QtzgcmeFZZHJLVWOF1303-27-40 18:30:001.0[facility]annCHEM TYTSZ1816-42-38 11:15:000.1[facility]annCHEM CIEPB9860-21-09 11:15:000.2[facility]annCHEM QYMLT3417-48-37 11:15:000.1 [facility]annCHEM CIZBF3674-71-41 11:15:0011[facility]annCHEM PANEL 2014-10-26 11:15:13565Cgyhszjq HermannCHEM SOCGX6188-56-69 11:15:002.9[facility]annCHEM BTSSD3132-40-14 11:15:003.2[facility]annCHEM CADAG6225-78-30 11:15:006.1[facility]annCHEM IBVMY3479-94-85 11:15:0023[facility]annCHEM OJRCP6818-61-39 11:15:000.9[facility] BmchaedLNNEJQLBPP7013-38-18 11:15:000.1 [facility]annCHEM AUXVZ0785-09-07 09:01:000.05[facility]annDRUG SCREEN 2014-10-26 06:40:00Negative (10/26/14 1:40 [...] HermannURINE AND STOOL 2014-10-26 06:40:005[facility] UOVII6385-14-28 06:40:0028[facility] AND FFJFZ0228-61-19 06:40:00Negative (10/26/14 1:40 AM)[facility] GULTG9757-56-19 06:40:00Negative (10/26/14 1:40 AM)[facility] ULVPD3476-95-35 06:40:00Negative (10/26/14 1:40 AM)[facility] QYXWI8383-95-61 06:40:00<=1.0[facility] STOOL 2014-10-26 06:40:00Negative (10/26/14 1:40 AM)[facility] ST[facility]OL 2014-10-26 06:40:001.009[facility] SCEAH2621-05-23 06:40:00Slight *ABN*(10/26/14 1:40 AM)[facility] AKKDO5398-74-30 06:40:00Yellow (10/26/14 1:40 AM)[facility] ZBSFQ6529-37-48 06:40:005.0[facility] GevmsadPJLXAANFWQ5074-73-86 02:45:00 Test Item Value Reference Range Interpretation Comments Angle (test code = Angle) 76.5 degrees 53.0-72.0 [facility] FqkuvdbQLMINZENFB3911-17-40 02:45:00 Test Item Value Reference Range Interpretation Comments Max Amp (test code = Max Amp) 74.1 mm 50.0-70.0 [facility] PssxdksYYRXFJFRSE3954-40-43 02:45:0014.3[facility] HermannHEMATOLOGY 2014-10-26 02:45:00See Note 23(10/25/14 9:45 PM)[facility]annHEMATOLOGY 2014-10-26 02:45:003.4[facility] AggzkhaCKEHZSDBWW3133-65-17 02:45:00 Test Item Value Reference Range Interpretation Comments K-time (test code = K-time) 1.0 min 1.0-3.0 [facility] LfpbqpiKINPBUEADT3181-62-96 02:45:00 Test Item Value Reference Range Interpretation Comments R-time (test code = R-time) 5.1 min 5.0-10.0 [facility] WzhzblmRIXUBILWGF0455-21-68 02:45:000.9[facility] VfttzuaMHXDMB5822-91-64 02:45:0035[facility] LnrphifJYTHTZ1404-06-91 02:45:0060[facility] HermannLIPIDS 2014-10-26 02:45:002.76[facility] DohcxsyVEHJCN8955-13-41 02:45:0054[facility] HtqnbvsCBAJUE8407-19-00 02:45:92467Pnbbvxxy PkhuknwAHYHVW1625-76-69 02:45:01064 [facility]annSPECIAL CQDXIMTAI5662-80-94 02:45:005.7[facility]annCHEM BCGXA5739-81-41 09:44:003.7[facility]annCHEM DSFQT6784-42-45 09:44:001.7 [facility] YudvymcLWOJIQKFPKXR2066-42-20 09:44:0013.6[facility] HermannELECTROLYTES 2013-11-14 09:44:0087[facility] WapvrwtZICOZSHKYNXD3044-02-79 09:44:0023[facility] ZptqhvpZUVXBGVNLJGS7259-79-91 09:44:0070[facility] AazbqtkCIJHQCXTPPXR5907-37-07 09:44:000.8[facility] FuvabljFDCETTXLSHKK2411-12-90 09:44:73434Wvnphbst [place] LBOUOIHFVJIF5817-45-08 09:44:004.6[facility] ZfqciqxNYRCFUJGXNBA9727-85-49 09:44:60924Gowznyez ZyleoigRHXRSLPGXVDZ7913-75-35 09:44:0024[facility] [place] IRKQGTIYHYCS7449-01-38 09:44:008.8[facility] IfxdkmoWSKLGMDUAS3061-05-83 09:44:00 1.97[facility] AksjukdOVROPPRIVA1451-55-61 09:44:00 Test Item Value Reference Range Interpretation Comments PT (test code = PT) 22.1 s 12.0-14.7 [facility] WifjuqbUVHGRU9435-30-83 09:44:0093[facility] OsskxduLZCDUM9866-95-00 09:44:0066[facility] AyiruolLYRAYV5478-43-36 09:44:20617Momygyae HermannLIPIDS 2013-11-14 09:44:04891Gehczjvw XrmyxniUGFUTB0014-74-71 09:44:0038[facility] OjxyifpIVMCSC2726-59-65 09:44:005.18[facility] HermannDRUG YAVKXP4205-90-75 01:09:21Positive *ABN*(11/13/2013 20:09:21 Chika/Kismet)[facility]annDRUG QTBYDK8576-43-17 01:09:21See Note 5(11/13/2013 20:09:21 Chika/Kismet)[facility]annDRUG GSJBXC3372-87-82 01:09:21Negative *NA*(11/13/2013 20:09:21 Chika/Kismet)[facility]annDRUG MUKIKJ1045-05-81 01:09:21Positive *ABN*(11/13/2013 20:09:21 Chika/Kismet)[facility]annDR[facility] WIGIEN5656-08-24 01:09:21Positive *ABN*(11/13/2013 20:09:21 Chika/Kismet)[facility]annDRUG APKMVX9390-52-69 01:09:21Negative *NA*(11/13/2013 20:09:21 Chika/Kismet) [facility]annDR[facility] BXNJJL1517-12-05 01:09:21Negative *NA*(11/13/2013 20:09:21 Chika/Kismet)[facility]annDRUG NQLBGO6689-59-04 01:09:21Negative *NA*(11/13/2013 20:09:21 Chika/Kismet)[facility]annDR[facility] AQDIAN9652-01-96 01:09:21Negative *NA*(11/13/2013 20:09:21 Chika/Kismet)[facility]annDR[facility] MIRQXW6373-73-29 01:09:21Negative *NA*(11/13/2013 20:09:21 Chika/Kismet) [facility] DEDSR6671-52-47 01:09:002[facility]UR[facility] AND BQKLU7533-97-40 01:09:00Slight *ABN*(11/13/2013 20:09:00 Chika/Kismet) [facility] LYRTK4657-39-62 01:09:00Yellow *NA*(11/13/2013 20:09:00 Chika/Kismet)[facility] RRKAN9958-93-46 01:09:006.5 [facility] DKSIA9787-16-95 01:09:001.024[facility]UR[facility] AND FJLQD2173-65-68 01:09:00Negative (11/13/2013 20:09:00 Chika/Kismet)[facility] GJFEH0172-98-76 01:09:00Negative *NA*(11/13/2013 20:09:00 Chika/Kismet)[facility] VRVZU2919-30-06 01:09:00Small *ABN*(11/13/2013 20:09:00 Chika/Kismet)[facility] STOOL 2013-11-14 01:09:00Negative (11/13/2013 20:09:00 Chika/Kismet)[facility] XARUR3150-33-79 01:09:003[facility]UR[facility] STOOL 2013-11-14 01:09:001[facility]URINE CFOL0026-86-36 01:09:00Negative (11/13/2013 20:09:00 Chika/Kismet)[facility]annCARDIAC UOFXZWS2761-70-81 19:43:00<0.010[facility]annCARDIAC WQZGOWI2764-02-34 19:43:00<0.02 [facility]annCARDIAC YMBWNIH6821-98-55 19:43:92483Rnoafgds HermannCARDIAC DXIFYJH9880-74-03 19:43:000.5[facility]annCARDIAC NBZLXGT9497-28-54 19:43:00 0.5[facility] HermannCHEM AETAY6149-59-58 19:43:000.1[facility]annCHEM PANEL 2013-11-13 19:43:000.2[facility] HermannCHEM DZCFW6698-23-65 19:43:000.1[facility] HermannCHEM DCRYZ5496-70-36 19:43:0024[facility]annCHEM UAMQM6719-40-94 19:43:000.9[facility]annCHEM MUSMH8615-15-56 19:43:0040[facility]annCHEM CRKOL3624-86-21 19:43:006.4[facility]annCHEM MYWJC7373-20-11 19:43:003.0 [facility]annCHEM YNEJT7911-25-59 19:43:003.4[facility]annCHEM PANEL 2013-11-13 19:43:43626Owpspffb HermannSPECIAL JQOAWOVVF7206-62-50 19:43:005.0 [facility] LzwnyppSSOPDGTZRE7485-65-93 09:29:0041.0[facility] HermannHEMATOLOGY 2013-11-13 09:29:0053.5[facility] AyzfvgpIWGYOBOLJZ9606-84-43 09:29:000.2[facility] WigjkjfJCOOUGGUOF2169-37-15 09:29:000.0[facility] EmfdzqbWQQGAUDHAN7930-77-06 09:29:00 Test Item Value Reference Range Interpretation Comments PT (test code = PT) 24.2 s 12.0-14.7 [facility] OklkkjxPYJTNUWIAN1616-43-67 09:29:002.22[facility]annHEMATOLOGY 2013-11-13 09:29:00 Test Item Value Reference Range Interpretation Comments PTT (test code = PTT) 39.1 s 22.9-35.8 [facility] EaaumtlTQXYLPGTBU7051-52-06 09:29:12200Cadnalyv HermannHEMATOLOGY 2013-11-13 09:29:0017.1[facility] MyyggwhLGKOZYXTNQ9211-61-78 09:29:007.0[facility] QcgdtuvUVZVUAKMFZ8643-47-51 09:29:0033.7[facility] CkhsdhbTMJMJDMZUA0271-34-66 09:29:00 Test Item Value Reference Range Interpretation Comments MCH (test code = MCH) 28.2 pg 27.0-31.0 [facility] BsiiemxLASCOVDVVU7501-45-40 09:29:004.35[facility]annHEMATOLOGY 2013-11-13 09:29:0011.4[facility] VafajouJTJFHUNOEX2099-99-56 09:29:0083.7[facility] SjvqmjvMCWEETEPRK4567-31-20 09:29:0012.3[facility] CejednvLQXXVSMFPV2107-96-57 09:29:0036.4[facility] HermannCARDIAC CFGWJZQ4482-24-80 09:29:000.6[facility]annCARDIAC WVPXCJP1353-02-79 09:29:00<0.02[facility]annCARDIAC ENZYMES 2013-11-13 09:29:000.6[facility]annCARDIAC OMVBGJR4246-22-91 09:29:29432 [facility]annCHEM LJUYA7917-44-40 09:29:0075[facility]annCHEM PANEL 2013-11-13 09:29:0013.1[facility] HermannCHEM ZFTEY0696-19-42 09:29:0026[facility]annCHEM RWOWZ1956-51-74 09:29:28458Guoenvdu HermannCHEM CHFUS5178-13-58 09:29:008.6[facility]annCHEM FALCZ9707-68-30 09:29:000.9[facility] HermannCHEM OTEOP0916-65-23 09:29:0012[facility]annCHEM WJYVJ4491-42-41 09:29:004.1 [facility]annCHEM MYRQN7592-34-32 09:29:33825Tpyfxxjj HermannCHEM PANEL 2013-11-13 09:29:0081[facility] PwvismaZSHAPWBNRV0406-08-78 09:29:004.1[facility] WyinkmiVTZVBPAQBB1141-90-68 09:29:001.4[facility] SycxhbaMKZFAKEHWX5225-89-71 09:29:000.0[facility] XsmdvnkETMMEQMQEQ3650-16-73 09:29:004.7[facility] [place] UMLJMPZIRP6180-26-78 09:29:006.0[facility] HqmjnoiUSHNQUJWEA6319-84-77 09:29:000.5 [facility] AvuoygqHVWFKVJSS2283-73-21 07:35:0015.8[facility] HermannCHEMISTRY 2013-05-12 07:35:09711Zcufwmel UuvzukaQVUKAUGSO1773-54-05 07:35:0023[facility] GmvadmyEJNXZKGXF6336-59-06 07:35:49396Lwcxjagx LomggvnMUSWPQIVP0868-46-85 07:35:000.3[facility] EbgoipxZAKXFOZCS1172-47-19 07:35:007.7[facility] [place] AQIYAQNGK0929-13-86 07:35:005[facility] LbuzwzsPJJTCRCGN3976-81-12 07:35:0072 [facility] UnaxrruSVRBYGVEF8280-12-38 07:35:89031Drslxnjk HermannCHEMISTRY 2013-05-12 07:35:003.8[facility] CburiqsAVTCXBIKIJ9352-85-43 07:35:007.8[facility] XwhyetiGCVMCZMVLX1018-43-62 07:35:003.5[facility] UtkxbmpHFJRABDWIZ3442-90-89 07:35:000.9[facility] IdcptvmOSCWDANMHM5168-06-86 07:35:000.3[facility] AWBXUATZVD2418-71-63 07:35:000.1[facility] ZomiejoIFJJDCZQCQ4939-14-42 07:35:007.4 [facility] FulpbkuZIXYYXRMWR4003-11-29 07:35:000.7[facility] HermannHEMATOLOGY 2013-05-12 07:35:0027.8[facility] DymvvmdSZOZBLYUHB0227-38-67 07:35:002.7[facility] UfgomqvTHJRJXYVKN7303-25-50 07:35:0061.4[facility] LfadvrvWTYLDLQYBZ7920-93-95 07:35:0088.5[facility] BatnhffQKVGNDXGRJ8469-63-28 07:35:0015.2[facility] [place] HFGRQUKDIW4519-91-07 07:35:0032.5[facility] PjncmclRAUSMBTOWK5177-89-16 07:35:00 252[facility] HlkblxvTYTTLGHKOY3880-48-47 07:35:007.7[facility] HermannHEMATOLOGY 2013-05-12 07:35:0012.8[facility] JwpwgijSCMGJTAAEM0936-89-53 07:35:003.82[facility] NiokzloZAQXRJQTFZ9686-58-76 07:35:0011.0[facility] PqbmaeqIDVXJKNAPP2031-33-74 07:35:0033.8[facility] MbgnavqAQQRFYESJQ8921-83-60 07:35:00 Test Item Value Reference Range Interpretation Comments MCH (test code = MCH) 28.8 pg 27.0-31.0 [facility] QAJJJWF6577-52-46 11:52:0089[facility] KERBWRXFS5389-61-23 07:00:00Negative (05/11/2013 02:00:00)[facility] UFGONIRLS4465-66-82 07:00:00Negative (05/11/2013 02:00:00)[facility] ALUKJJLSK1869-05-37 07:00:00Negative (05/11/2013 02:00:00)[facility] DUADNTWIK2200-29-46 07:00:00Negative (05/11/2013 02:00:00)[facility] KLCMTMOAJ6240-60-97 07:00:00Positive *ABN*(05/11/2013 02:00:00)[facility] [place] QHONHDQXW5783-88-42 07:00:00See Note 12(05/11/2013 02:00:00)[facility] [place] BCQJMUWHI6461-60-04 07:00:00Negative (05/11/2013 02:00:00)[facility] [place] OGQBVQIXC6609-77-78 07:00:00Negative (05/11/2013 02:00:00)[facility] [place] RREFMCFAM8756-93-40 07:00:00Negative (05/11/2013 02:00:00)[facility] [place] KMWBSSTLR0631-93-58 07:00:00Negative (05/11/2013 02:00:00)[facility] [place] PEMGQWJOK4066-89-24 07:00:001.09[facility] QbyatddXOLUMBUSQ7385-69-24 07:00:001.07 [facility] QbuutcvHVHAKJAVT2577-82-97 07:00:002.0[facility] HermannCHEMISTRY 2013-05-11 07:00:002.6[facility] HqgmumqABTVWONKA2574-41-75 07:00:31231Optjkkis CypqdavSLHSLEQHT0796-19-57 07:00:008.0[facility] AicjetuVUKUDRVOM4226-17-02 07:00:0017.7[facility] UvucojiJRYLMZKGU0555-60-26 07:00:007[facility] EMNSADVNK8288-79-25 07:00:0059[facility] HrextvzPGYSWKXOZ0346-51-61 07:00:000.6 [facility] MlygtzlVLLCRWJOM4506-19-57 07:00:05722Ysqoxemw HermannCHEMISTRY 2013-05-11 07:00:003.7[facility] GhshzxqUKRCEXGIV6522-29-07 07:00:50607Zdvthxqv ZxfxlecDLXUTXSUE3481-98-92 07:00:0021[facility] WqzknviEIAGJOIUN2054-39-19 07:00:00See Note 13(05/11/2013 02:00:00)[facility] XhnblbjLKXEZILZID3724-78-76 07:00:0017.2[facility] NikwknyHLIDPKLWVX3206-19-34 07:00:73806Czipehvl [facility] RKOYGRXGBO4513-17-59 07:00:008.7[facility] JbzrfmuAUJAAIAXEN3715-19-44 07:00:00 88.4[facility] OyfmytgZRNHBVBZDL6038-81-22 07:00:00 Test Item Value Reference Range Interpretation Comments MCH (test code = MCH) 29.4 pg 27.0-31.0 N [facility] RtdjukmJMXQVSUIJS1076-16-16 07:00:0015.3[facility] HermannHEMATOLOGY 2013-05-11 07:00:0033.2[facility] IfssmjsGCYDPZUNQA7239-09-99 07:00:003.75[facility] WuswxavJTQXNNWJDU0888-46-72 07:00:0011.0[facility] PeeelqkQZEQAOXCBV4197-80-60 07:00:0033.1[facility] JhdtmvvIHHOITNSPU1695-93-86 07:00:004.4[facility] [place] ZQOPGSQLHA4341-08-98 07:00:0077.7[facility] RkyedfvROSFYSNUGP6219-55-47 07:00:00 0.8[facility] TfyjbjxMXDMUZWODI8309-49-29 07:00:0013.4[facility] HermannHEMATOLOGY 2013-05-11 07:00:002.7[facility] SxnxmrqHFOWLWQTQK0231-76-52 07:00:000.8[facility] EvrenjzVHZCXQXPQY7178-83-14 07:00:001.5[facility] DwdwyzzXGRMYSTIFV3870-28-83 07:00:0015.6[facility] IrydzvlBHQNYZIWQA2529-91-78 07:00:000.1[facility] HPZMGGCXAA4182-29-71 07:00:000.3[facility] HermannBEDSIDE GLUCOSE TESTING 2013-05-11 04:53:0079[facility] XckuickGWGQQWCZZU1988-77-62 23:12:90575Xqhzjwdx MujozmnWBNSMYNPJG9200-66-95 23:12:00Positive (05/10/2013 18:12:00)[facility] RexbadgDHETTJJVZJ3963-15-41 23:12:001.06[facility] WmtyxkxFOZVPKOAXU6864-64-22 23:12:0070[facility] WsxtmplBRDDIUSXXJ8746-17-52 23:12:00>100 mm/hr *ABN*(05/10/2013 18:12:00)[facility] QnzdancZZJZSURBLB3569-16-47 23:12:0035 [facility] FafeykrIEZBMALVGU1789-81-16 23:12:0068[facility] HermannIMMUNOLOGY 2013-05-10 23:12:001[facility] EvrmbiuULWPNCOMFT3974-80-14 23:12:001[facility] HcvzfltYFIHEMVYXM2737-74-07 23:12:005.2[facility] FtbwuiqURMLRPDLXP6152-09-12 23:12:0040[facility] XhvuvloDEAKQLBKKY9612-62-81 23:12:09364Qagriwsl [place] DCEKRQBJZF1724-53-75 23:12:00Negative *NA*(05/10/2013 18:12:00)[facility] XUSWRJAIOT7108-12-79 23:12:00>190.0[facility] HermannBACTERIAL - SEROLOGY 2013-05-10 21:41:00Negative (05/10/2013 16:41:00)[facility] HermannMICRO MISC - JRVUZGJX0326-56-76 21:41:00Negative 1(05/10/2013 16:41:00)[facility] BEDSIDE GLUCOSE NYTEPKK7812-19-20 16:57:0096[facility] UavmdkpPSCLYUVKFY8496-84-37 14:50:398[facility] SewiyxzXYJAERRMEG4082-57-68 14:50:39Few /LPF *NA*(05/10/2013 09:50:39)[facility] JubqwkpNSGQSJTFRW9820-56-08 14:50:39<1[facility] [place] ISBULYNBDX5310-31-55 14:50:39Few /LPF *NA*(05/10/2013 09:50:39)[facility] [place] NTPBMDKMOT9380-98-41 14:50:39<1[facility] XwkmibsIATTTNCVSF4912-43-17 14:50:39 Negative (05/10/2013 09:50:39)[facility] PchjxmfBDPNZUHGNP1266-88-28 14:50:39 Negative (05/10/2013 09:50:39)[facility] ApxjrovKXYHWVHBUW2252-07-15 14:50:39 Negative (05/10/2013 09:50:39)[facility] FgchwinPGQDGZINSB9638-15-40 14:50:39 Negative mg/dL *NA*(05/10/2013 09:50:39)[facility] CkzxntgWFBOWQJZSO8607-04-06 14:50:39Negative *NA*(05/10/2013 09:50:39)[facility] MnulxawNBTEXJWPRQ7043-34-52 14:50:391.006[facility] MtpsbniLYHZVLSAGF8168-99-31 14:50:39Clear (05/10/2013 09:50:39)[facility] OhldiofHYZEVWYDKM6807-23-24 14:50:39Light Yellow *NA*(05/10/2013 09:50:39)[facility] XwianjlYJRMKLPHKV6097-60-21 14:50:39Negative mg/dL (05/10/2013 09:50:39)[facility] PrksumiIMLXQZCNTP5269-65-60 14:50:397.5 [facility] ZgrvleeKOFJGVGXM4392-25-35 07:52:0087[facility] HermannCHEMISTRY 2013-05-10 07:52:53508Mipuggim QwdpotkAWJMIEDIF3117-69-08 07:52:0014.emorial AcuqxdkLJDKOWESB5221-65-46 07:52:007.8[facility] DximjtxMBIFBZECE6095-91-01 07:52:16815Jzpzjktb NvwncwgKNKBEQXWG9785-96-08 07:52:003.6[facility] CCWGLZKDC4393-39-75 07:52:0024[facility] GsjrxlaMWCPRXXJT3907-39-82 07:52:000.8 [facility] EcpnmqxXZDAIBBTM9224-05-30 07:52:007[facility] WoarpmmIAOYDPSRM3331-84-25 07:52:0051[facility] SjckhbcPYVYLJXOU4075-07-05 07:52:001.6[facility] [place] XJIEQSSSQ2801-17-63 07:52:002.2[facility] IfxvrmkFOENTFJMKB7713-25-69 07:52:00 Test Item Value Reference Range Interpretation Comments MCH (test code = MCH) 29.1 pg 27.0-31.0 N [facility] RoufdfbKDVQCZHXCV4891-53-79 07:52:0033.8[facility] HermannHEMATOLOGY 2013-05-10 07:52:0089.2[facility] OierlwfTQEHQBCCXJ9067-74-87 07:52:0011.0[facility] CvaqzafARGVOOELIZ0864-46-93 07:52:008.5[facility] JthgddnJNUKEJCMLN7006-19-03 07:52:19233Diudeurz EpscmhsBTLOQNAMBQ8902-37-08 07:52:0015.1[facility] OMLRWRDRGQ9703-65-27 07:52:0032.6[facility] AxbruqgBJIPMJDUYX3582-87-59 07:52:00 3.79[facility] AsfsiiaMMXCVUFUCQ7634-64-10 07:52:0022.1[facility]annHEMATOLOGY 2013-05-10 07:52:000.1[facility] EegnpksEOKNMPUYBZ1255-13-62 07:52:000.6[facility] PgzwtxoCXFSFTZPWF4020-26-73 07:52:000.2[facility] UjcbsrcRKTQJTNTQE6312-02-91 07:52:0083.0[facility] ZdphtfzGGURHXFCPQ4673-86-10 07:52:002.9[facility] [place] RNYTBRAXXN2862-42-82 07:52:0018.3[facility] IwlckizYUZRBIKFIH4274-51-81 07:52:00 0.4[facility] ZoydtufZSUFXZOOKS7648-95-18 07:52:001.0[facility]annHEMATOLOGY 2013-05-10 07:52:0012.9[facility] QtvagpbFCMHZCLGNP3570-85-12 07:52:002.7[facility] JwwoiufHIOAKZCLRN7008-09-65 19:56:0055[facility] MrznssoSGDIUEVUPK4512-15-26 19:56:17509Myvgmihc CbvnfvvLAREAODHER2526-96-75 19:56:38747Zkcoutra [place] RVIDBSNJPQ3457-50-80 19:56:00Negative (05/09/2013 14:56:00)[facility] WUVQBUYFCP7037-04-58 19:56:00Negative (05/09/2013 14:56:00)[facility] TCJEMRYSUO3650-43-46 19:56:00Negative (05/09/2013 14:56:00)[facility] [place] AZURFEMIJI0395-69-94 19:56:00>190.0 mg/L 15(05/09/2013 14:56:00)[facility] VgmijizCLWSLHPUQV4273-92-09 19:56:00Negative (05/09/2013 14:56:00)[facility] AbbrslqPWKGYWBYGY2483-24-06 19:56:0034[facility] BnqelfaZUWATVWLP6536-11-17 16:10:242.3[facility] BdcqdngAGYSBPGHG9314-69-67 16:10:241.4[facility] JZHBYKNZD2984-13-23 16:10:191.8[facility] CtkihchMCZRVCTEI0965-14-34 10:34:0071 [facility] WlvyefqDQQEEELZS3823-34-18 10:34:0036[facility]annCHEMISTRY 2013-05-09 10:34:32260Vgfntupf UjobdjwTDMGLMPQX0630-67-37 10:34:62962Dfwbtylp ArjosovMPQNKFDQD3302-99-83 10:34:003.67[facility] VdctutfMQYRRSLNG6038-91-92 10:34:004.9[facility] RqwqtnxGVUVWXNBN9640-23-26 00:11:00Negative *NA*(05/08/2013 19:11:00)[facility] WnfolmgNSSLQBVLD9972-03-72 00:11:00See Note 11(05/08/2013 19:11:00)[facility] AivowjuVQUGLBAWF9971-24-02 00:11:00Positive *ABN*(05/08/2013 19:11:00)[facility] OldctroXPINVFDCW3260-22-90 00:11:00Negative *NA*(05/08/2013 19:11:00)[facility] HijhlxtAEDCVLIOC9461-78-13 00:11:00Negative *NA*(05/08/2013 19:11:00)[facility] JlthvnlPCQVGEDVG4251-97-55 00:11:00Negative *NA*(05/08/2013 19:11:00)[facility] UwlbknvJKVSMIZSE2095-45-08 00:11:00Negative *NA*(05/08/2013 19:11:00)[facility] LwuffvlQPFKJGCRK8507-88-25 00:11:00Negative *NA*(05/08/2013 19:11:00)[facility] YmrtoqyCLUGBATAP5062-43-79 00:11:0054[facility]annCHEMISTRY 2013-05-09 00:11:005.8[facility] VgidfqdTDZDAJMMW6923-04-75 00:11:000.2[facility] ZvnaelaZLYMGOZNQ7103-91-03 00:11:002.8[facility] JahkikfATUOJZJVN5533-73-49 00:11:0095[facility] DbdchjkZZGCFJFZQ2270-99-08 00:11:0029[facility] ISHNOOHSC2006-67-35 00:11:000.9[facility] FxpltbfYCXNBNSSU3771-54-24 00:11:0015 [facility] IdylusfACICBWXEJ0761-81-66 00:11:003.0[facility]annURINALYSIS 2013-05-09 00:11:00Slight *ABN*(05/08/2013 19:11:00)[facility]annURINALYSIS 2013-05-09 00:11:001.013[facility] VuqypdeMAVBCLOBZB1470-47-92 00:11:00Small *ABN*(05/08/2013 19:11:00)[facility] QldoiftLIHEVTQMDC7657-65-33 00:11:00Negative (05/08/2013 19:11:00)[facility] TksukynUHCFGCZRRB8775-46-82 00:11:00Negative (05/08/2013 19:11:00)[facility] ZhzbpnfGGEIONTFZL0155-13-57 00:11:005.0[facility] IheztmoKHQQDMVOSI7417-61-99 00:11:0030 mg/dL *ABN*(05/08/2013 19:11:00)[facility] IxefgdiVHOPVQDZOP4827-45-20 00:11:00Negative mg/dL *NA*(05/08/2013 19:11:00) [facility] FonzbbmKOVVZHBLQV4469-10-07 00:11:00Yellow *NA*(05/08/2013 19:11:00) [facility] DqdvhymOHOWSJYUUL9310-22-45 00:11:00Few /LPF *NA*(05/08/2013 19:11:00) [facility] IbgtcsvNNKJGSKLHJ3029-73-85 00:11:001[facility]annURINALYSIS 2013-05-09 00:11:00Negative mg/dL *NA*(05/08/2013 19:11:00)[facility] ASJDDZKEWT6576-02-91 00:11:00Negative *NA*(05/08/2013 19:11:00)[facility] ADRBJZGNOF4944-64-18 00:11:00Few /LPF *NA*(05/08/2013 19:11:00)[facility] MOKIWIYFRH9235-92-42 00:11:00Occasional /HPF *NA*(05/08/2013 19:11:00)[facility] HermannBEDSIDE GLUCOSE WPZZOSQ0513-00-24 12:28:0087[facility]annCHEMISTRY 2012-07-21 08:53:45835Nkpxftcr XcgrffjMYRRCUUIT2900-19-01 08:53:0024[facility] HjqifipVUYTTYPVX1980-83-33 08:53:78286Cjzxjrnk QzvvdoeDHCKNNDNX9116-70-79 08:53:60850Jdbtsoly HuevhwxJNHSSQMMI9219-61-16 08:53:008.08[facility] [place] HVTIPQOHQ4941-74-68 08:53:003.2[facility] KagpzvbMXEHJJBWA5259-70-51 08:53:001.9 [facility] DqqwprcBFGVRNWIY8622-42-79 08:53:0014.1[facility] HermannCHEMISTRY 2012-07-21 08:53:009[facility] GsxteuqQBLPQPXTQ6257-97-00 08:53:0077[facility] BhkhgfaMYUNUIGMI7424-01-62 08:53:55536Mkyoyrnz UchsbbqYTCTQPRCN8566-05-51 08:53:99580Mjacpajb HzpkoypJGSFNAKBZ8073-10-99 08:53:71736Vjktjzrf [place] XBTWHDLAE7297-76-34 08:53:004.1[facility] LyliajiSQEJZARLZ0223-43-21 08:53:000.7 [facility] QtveqgyQUQTYIVTM0799-93-13 08:53:0027[facility] HermannCHEMISTRY 2012-07-21 08:53:008.0[facility] SrwtvorLJIASADLM1354-63-03 08:53:005.8[facility] EbzfordMXKUCSKNKV0686-26-77 08:53:006.8[facility] HbdlkrnRSXMDVRFVQ7639-52-88 08:53:72764Sldxefod MmyqwfvTIKMVLMVCP7646-58-46 08:53:0088.7[facility] [place] XPFPKKNQLU7438-94-40 08:53:00 Test Item Value Reference Range Interpretation Comments MCH (test code = MCH) 29.4 pg 27.0-31.0 N [facility] NdwbuxsMZNHXXYMSC3261-51-28 08:53:0033.1[facility]annHEMATOLOGY 2012-07-21 08:53:0015.0[facility] AcamrzaKZMIAOLMPK9184-35-09 08:53:0038.4[facility] ChlsdlnSOYIDPRFLV1413-32-31 08:53:004.34[facility] VppciqbPFLNJSYWJI3618-77-36 08:53:0012.7[facility] QixbciiHRGLSOQIVG1338-48-55 08:53:0011.7[facility] WKGYDWMMZI5830-95-10 08:53:000.5[facility] JlmmvaiCCOYZAYEPD3869-72-21 08:53:005.9 [facility] KfthztyMELYRJIJZB7454-19-63 08:53:006.0[facility] HermannHEMATOLOGY 2012-07-21 08:53:0041.5[facility] BgfxidcCEPWMTIYAV9235-43-59 08:53:001.9[facility] SjrtbdoZFQBAMTDZJ8332-87-46 08:53:0050.1[facility] DzlikvzUUWQIFMNGG9049-98-92 08:53:000.7[facility] HerkydeEOOWBNVEBB0965-46-67 08:53:004.8[facility] [place] WJEWFZGVZE8706-05-21 08:53:000.2[facility] PtobipoMMFLKFPYUH5504-89-02 08:53:000.1 [facility] RYGZPMQ5986-76-61 02:50:53707Kvrjyabg [place] OKYTPNAFMZ6069-92-55 01:10:00Yellow *NA*(07/20/2012 19:10:00)[facility] SZXFIUEIAD3321-13-30 01:10:0020 mg/dL *ABN*(07/20/2012 19:10:00)[facility] KTLSHUWEWV1908-39-20 01:10:006.5[facility] OqtidijKADXENXOLQ2033-18-62 01:10:00 Negative mg/dL *NA*(07/20/2012 19:10:00)[facility] FxedcfcEYSIHWQNXM5103-45-33 01:10:001.020[facility] OnaufhpDFARCKANGL0023-75-31 01:10:00Slight *ABN*(07/20/2012 19:10:00)[facility] HxfthwcHUQBPVPFJI0493-15-33 01:10:00Negative (07/20/2012 19:10:00)[facility] OrrtvxlOHSWPWTZGP8574-60-23 01:10:00Trace *ABN*(07/20/2012 19:10:00)[facility] DocopglEBBERNXKXT6617-48-39 01:10:00Many /LPF *ABN*(07/20/2012 19:10:00)[facility] EicgrekMXSJTFOCMT7753-85-82 01:10:00Small *ABN*(07/20/2012 19:10:00)[facility] JnzuajiPYASMBHJXW2137-24-53 01:10:00Negative *NA*(07/20/2012 19:10:00)[facility] VxcyjijHQHIWBLNOI5938-04-34 01:10:00Occasional /HPF *NA*(07/20/2012 19:10:00)[facility] QndkjznLZXRLAUYTO8964-73-77 01:10:00Few /LPF *NA*(07/20/2012 19:10:00)[facility] XyuhvapTPKBPVLTBG1435-37-90 01:10:00Few /HPF *NA*(07/20/2012 19:10:00)[facility] VtletkcTCEGZHPCMA2157-53-57 01:10:001 [facility] RavrmfsLHUSSLPATY4994-96-92 01:10:006[facility] HermannURINALYSIS 2012-07-21 01:10:001[facility] HermannBEDSIDE GLUCOSE JCVTZBZ5203-42-50 12:05:0086 [facility] RizdgaoSJIWLLFKO3032-30-47 08:50:0014.7[facility] HermannCHEMISTRY 2012-07-20 08:50:0088[facility] QilyvueQLUSQSWLC3380-24-63 08:50:0077[facility] SxglibmICOENUINU1980-09-26 08:50:0013[facility] SbxtvobDVSRRDZAH6163-41-52 08:50:000.8[facility] BtnxwykQXCLEYYDY6892-16-24 08:50:70560Bsxtievm Cabrera RYTNIVJSS3397-19-97 08:50:003.7[facility] OfrvbyxLUUTTJMIO8003-97-88 08:50:0097 [facility] AwrtbxaRVMCWAIYF2490-97-27 08:50:0029[facility] HermannCHEMISTRY 2012-07-20 08:50:008.3[facility] AvrmldhROZEPDVDQG8305-17-78 08:50:000.7[facility] YmantalALNNJRFIQC7827-66-49 08:50:004.3[facility] CqgitxuYMPMZLPCTP6046-54-76 08:50:006.9[facility] EnhyxzqDUFHZDYPIC9113-07-30 08:50:000.8[facility] [place] QNZVALEVVI2232-19-37 08:50:001.2[facility] GyhyhfxLESOJXCKKR1720-70-56 08:50:000.1 [facility] BkqynfiVUDQOZKKGD3040-76-99 08:50:000.1[facility] HermannHEMATOLOGY 2012-07-20 08:50:005.6[facility] OhfifcaKGYBCBBJEK0798-07-80 08:50:0035.7[facility] KmrbjsmGRFSYNYQQC0510-26-27 08:50:0056.7[facility] LqjqphqNZFTJEBPSA4176-38-95 08:50:0088.3[facility] CyaorilEYWKXUWSFG8756-30-27 08:50:0041.1[facility] [place] ZHSEEFQWZR5369-88-33 08:50:0013.7[facility] GyyllavQHNZCHIANX6824-38-23 08:50:00 4.66[facility] ZejfafrZHXOPVNCFP5453-24-24 08:50:0012.2[facility] HermannHEMATOLOGY 2012-07-20 08:50:006.8[facility] AacuuieSDTMDJQQWA2622-79-16 08:50:13149Btixelcz BxlidzjRLFUEQCSIB1377-57-28 08:50:0015.6[facility] RnbhmwzOFCITMUEQU7251-73-34 08:50:0033.3[facility] RwfkadoQJFQOXKKTN0897-97-66 08:50:00 Test Item Value Reference Range Interpretation Comments MCH (test code = MCH) 29.4 pg 27.0-31.0 N [facility] BEXXFZS9475-11-79 13:30:00Negative (07/19/2012 07:30:00)[facility] PimuborPDOZRVJBU0349-11-07 13:30:0062[facility] HermannCHEMISTRY 2012-07-19 13:30:0067[facility] PpgufbcLBHDIIJWH8194-29-23 13:30:0030[facility] HyccxufWAELCQHRY3533-09-58 13:30:008.8[facility] AoqmecnYKWDZCUXB8246-16-58 13:30:0012[facility] FoprhwsVWBWKFDBH6963-28-15 13:30:001.0[facility] [place] [place] INRTUPHZK6320-10-57 13:30:15201Ytviwhmn NumtjgdNJUEBCIRM3354-38-79 13:30:004.1 [facility] HveaozaWCGDVNKNE7391-93-86 13:30:0099[facility] HermannCHEMISTRY 2012-07-19 13:30:81268Fptgfgoz ZivuvcbEPUKOJIZE2850-15-92 13:30:0013.1[facility] IbmwumgNETVXSSLB9244-23-57 13:30:00<0.02[facility] GnrclyaYWYGLZPMBH4596-61-86 13:30:001+ *ABN*(07/19/2012 07:30:00)[facility] CzzgmabWUOMKSKXQV9368-77-81 13:30:000.0[facility] ZulgzyrIGBQDPCTIY2522-28-04 13:30:00Slight *ABN*(07/19/2012 07:30:00)[facility] FqpvsstZGXBCEFNTS3419-32-79 13:30:00Slight (07/19/2012 07:30:00)[facility] QnmjyfiIXGLIPOYXD0976-35-56 13:30:000.0[facility] [place] [facility] [place] KUBEDTGVME0907-19-80 13:30:004.0[facility] VkovyhrYZSLCZEDJI8250-98-44 13:30:00 30.0[facility] XlizqpsZEIUFHRLHH9273-16-25 13:30:001.0[facility] HermannHEMATOLOGY 2012-07-19 13:30:005.4[facility] MtwynktQZZKKPZVDG3073-04-82 13:30:0011.8[facility] AqwqvwuTTFYRPEXJM2346-32-51 13:30:000.2[facility] FtpkbmfHWAXFRBZQI7525-34-50 13:30:000.7[facility] ViiclryKXNIXBSSFR5846-63-88 13:30:0065.0[facility] [place] IFERXDYLWM4235-10-73 13:30:000.97[facility] NtusfirUQGPNVPOLZ5282-59-95 13:30:00 Test Item Value Reference Range Interpretation Comments PT (test code = PT) 13.1 s 12.0-14.7 N [facility] SykjxrmNQHWLXSOXU8491-71-10 13:30:004.1[facility] HermannHEMATOLOGY 2012-07-19 13:30:00 Test Item Value Reference Range Interpretation Comments ACT (TEG) (test code = ACT (TEG)) 113 s 86-118 N [facility] EjoayppPNCACDUYEA2470-25-43 13:30:00 Test Item Value Reference Range Interpretation Comments Split Point (test code = Split Point) 0.6 min [facility] UnupzqcQWSCJGYNXL1997-26-05 13:30:00 Test Item Value Reference Range Interpretation Comments Angle (test code = Angle) 82 degrees 64-80 [facility]qfdCKJUYKFLTG2174-65-59 13:30:00 Test Item Value Reference Range Interpretation Comments Max Amp (test code = Max Amp) 81 mm 52-71 [facility] CenterGytgvzoCITBUYBVQF4785-44-31 13:30:00 Test Item Value Reference Range Interpretation Comments K-time (test code = K-time) 0.8 min 0.6-2.3 N [facility] XwjwpdkFSSTDIFZEI4250-87-83 13:30:0020.9[facility] HermannHEMATOLOGY 2012-07-19 13:30:00 Test Item Value Reference Range Interpretation Comments R-time (test code = R-time) 0.7 min 0.4-0.7 N [facility] CenterTgqgaqaRKAOSMMQMN3433-52-48 13:30:00 Test Item Value Reference Range Interpretation Comments PTT (test code = PTT) 32.1 s 22.9-35.8 N [facility] JpikobxEPJMRUQKXI5610-95-96 13:30:0015.0[facility] HermannHEMATOLOGY 2012-07-19 13:30:005.06[facility] EbbzokzQLURTSUCZF2127-81-74 13:30:0014.8[facility] BkksaixHLFLHWLYYI3141-53-98 13:30:0033.3[facility] SrsfbirDPQQEHAEFR6728-12-79 13:30:0018.1[facility] JmeltcsSGETKNQDHA1441-29-05 13:30:0044.9[facility] NBLYQJORHF4573-29-87 13:30:007.1[facility] NehtgsmDTOMQXPFVI5818-21-41 13:30:00 Test Item Value Reference Range Interpretation Comments MCH (test code = MCH) 29.5 pg 27.0-31.0 N [facility] EpdaygnTOUWYSVONJ9699-20-23 13:30:0088.8[facility] HermannHEMATOLOGY 2012-07-19 13:30:63316Dvcyqwmz [place]
[2020-12-11] MEDS ORDERED: METRONIDAZOLE 500mg IVPB 500 MG/100 ML BAG IV ONE (16:51)
[2020-12-11 16:56] LABS: Absolute Lymphocytes (CBC) 2.9 K/uL (0.7-4.9); Basophils % 0.7 % (0-1.3); Hematocrit 35.5 % (36.0-45.0); Lymphocytes % 14.5 % (15.3-44.8); MPV 7.5 fL (7.6-11.3)
[2020-12-11 16:59] LABS: Urine Blood Trace-intact (Negative); Urine Glucose Negative (Negative); Urine Protein Trace (Negative); Urine pH 7.5 (5.0-7.0)
[2020-12-11 17:03] LABS: Protime INR 1.17
--- NOTE | 2020-12-11 17:09 | EDPHYS ---
Physician Documentation [facility] Name: Kathy Whyte Age: 55 yrs Sex: Female : 1965 Arrival Date: 12/11/2020 Time: 16:15 Bed 30 Private MD: ED Physician Lionel Rodrigez HPI: 12/11 16:53 This 55 yrs old Female presents to ER via EMS with complaints of Chest Pain. [facility] 16:53 The patient or guardian reports chest pain that is located primarily in the anterior [facility] chest wall. Onset: just prior to arrival. The pain does not radiate. Associated signs and symptoms: Pertinent positives: lightheadedness. The chest pain is described as a heaviness, a pressure. Duration: The patient or guardian reports a single episode, that is now resolved. Modifying factors: The symptoms are alleviated by nothing. the symptoms are aggravated by nothing. Severity of pain: At its worst the pain was mild in the emergency department the pain is unchanged. EMS care prior to arrival includes: supplemental oxygen. The patient has not experienced similar symptoms in the past. Historical: - Allergies: 16:15 Compazine; aa5 16:15 Demerol; aa5 16:15 Morphine; aa5 16:15 Neurontin; aa5 16:15 NSAIDS; aa5 16:15 Stadol; aa5 16:15 Toradol; aa5 - PMHx: 16:15 Anxiety; CVA; Depression; Hypertension; High Cholesterol; Myocardial infarction; aa5 Seizures; - PSHx: 16:15 Cholecystectomy; Heart stents; Appendectomy; CABG; Hysterectomy; aa5 - Immunization history:: Adult Immunizations up to date. - Social history:: Smoking status: Reported history of juuling and/or vaping. - Family history:: not pertinent. ROS: 16:59 Constitutional: Negative for fever, chills, and weight loss, Eyes: Negative for injury, myra pain, redness, and discharge, ENT: Negative for injury, pain, and discharge, Neck: Negative for injury, pain, and swelling, Respiratory: Negative for shortness of breath, cough, wheezing, and pleuritic chest pain, Abdomen/GI: Negative for abdominal pain, nausea, vomiting, diarrhea, and constipation, Back: Negative for injury and pain, : Negative for injury, bleeding, discharge, and swelling, MS/Extremity: Negative for injury and deformity, Skin: Negative for injury, rash, and discoloration, Neuro: Negative for headache, weakness, numbness, tingling, and seizure, Psych: Negative for depression, anxiety, suicide ideation, homicidal ideation, and hallucinations, Allergy/Immunology: Negative for hives, rash, and allergies, Endocrine: Negative for neck swelling, polydipsia, polyuria, polyphagia, and marked weight changes, Hematologic/Lymphatic: Negative for swollen nodes, abnormal bleeding, and unusual bruising. 16:59 Cardiovascular: Positive for chest pain. Exam: 16:59 Constitutional: This is a well developed, well nourished patient who is awake, alert, myra and in no acute distress. Head/Face: Normocephalic, atraumatic. Eyes: Pupils equal round and reactive to light, extra-ocular motions intact. Lids and lashes normal. Conjunctiva and sclera are non-icteric and not injected. Cornea within normal limits. Periorbital areas with no swelling, redness, or edema. ENT: Nares patent. No nasal discharge, no septal abnormalities noted. Tympanic membranes are normal and external auditory canals are clear. Oropharynx with no redness, swelling, or masses, exudates, or evidence of obstruction, uvula midline. Mucous membranes moist. Neck: Trachea midline, no thyromegaly or masses palpated, and no cervical lymphadenopathy. Supple, full range of motion without nuchal rigidity, or vertebral point tenderness. No Meningismus. Chest/axilla: Normal chest wall appearance and motion. Nontender with no deformity. No lesions are appreciated. Cardiovascular: Regular rate and rhythm with a normal S1 and S2. No gallops, murmurs, or rubs. Normal PMI, no JVD. No pulse deficits. Respiratory: Lungs have equal breath sounds bilaterally, clear to auscultation and percussion. No rales, rhonchi or wheezes noted. No increased work of breathing, no retractions or nasal flaring. Abdomen/GI: Soft, non-tender, with normal bowel sounds. No distension or tympany. No guarding or rebound. No evidence of tenderness throughout. Back: No spinal tenderness. No costovertebral tenderness. Full range of motion. Female : Normal external genitalia. Skin: Warm, dry with normal turgor. Normal color with no rashes, no lesions, and no evidence of cellulitis. MS/ Extremity: Pulses equal, no cyanosis. Neurovascular intact. Full, normal range of motion. Neuro: Awake and alert, GCS 15, oriented to person, place, time, and situation. Cranial nerves II-XII grossly intact. Motor strength 5/5 in all extremities. Sensory grossly intact. Cerebellar exam normal. Normal gait. Psych: Awake, alert, with orientation to person, place and time. Behavior, mood, and affect are within normal limits. 16:59 Musculoskeletal/extremity: DVT Exam: No signs of deep vein thrombosis. no pain, no swelling, no tenderness, negative Homans' sign noted on exam, no appreciated bluish discoloration, no erythema, no increased warmth. 17:06 ECG was reviewed by the Attending Physician. [facility] Vital Signs: 16:15 BP 108 / 66; aa5 16:35 BP 119 / 73; Pulse 72; Resp 18; Pulse Ox 100% on R/A; zb 17:35 BP 106 / 53; Pulse 60; Resp 16; Pulse Ox 100% on R/A; zb 18:35 BP 102 / 50; Pulse 62; Resp 16; Pulse Ox 97% on R/A; zb 21:50 BP 93 / 57; Pulse 66; Resp 16; Pulse Ox 97% on R/A; zb 22:12 BP 107 / 61; Pulse 58; Resp 19; Pulse Ox 97% on R/A; zb Procedures: 17:02 Peripheral line: by aseptic technique a peripheral line was placed in the right [facility] external jugular vein. MDM: 16:42 Patient medically screened. [facility] 17:00 Differential diagnosis: abnormal EKG, acute myocardial infarction, congestive heart myra failure cholecystitis, Cholelithiasis costochondritis, hiatal hernia, pancreatitis, peptic ulcer disease, pneumonia, pneumothorax, stable angina, unstable angina. HEART Score: History: Slightly Suspicious (0), ECG: Non specific repolarization disturbance / LBTB / PM (1), Age: > 45 and < 65 years (1), Risk Factors: > or = 3 Risk factors for atherosclerotic disease (2), [Hypercholesterolemia] [Hypertension] [Active Smoker] [+ Family HX] Troponin: < or = 1 x Normal Limit (0). The patient was given aspirin in the Emergency Department. The patient's deep vein thrombosis risk score was calculated as follows: Total Score: 0. This patient was found to be at low risk for a deep vein thrombosis by using the Well's assessment criteria. The patient's pulmonary embolism risk score was calculated as follows: Total Score: 0-2 points. This patient was found to be at low risk for a pulmonary embolism by using the Well's assessment criteria. RAJINDER Risk Score: 1 - patient's age is greater or equal to 65 years, TOTAL SCORE = 1. Data reviewed: vital signs, nurses notes, lab test result(s), EKG, radiologic studies, CT scan, plain films. Data interpreted: monitor car operator: rate is 72 beats/min, rhythm is regular, Pulse oximetry: on room air is 100 %. Test interpretation: by ED physician or midlevel provider: ECG, plain radiologic studies. Counseling: I had a detailed discussion with the patient and/or guardian regarding: the historical points, exam findings, and any diagnostic results supporting the discharge/admit diagnosis, lab results, radiology results. 12/11 16:22 Order name: Basic Metabolic Panel; Complete Time: 17:54 [facility] 12/11 16:22 Order name: CBC with Diff; Complete Time: 17:54 [facility] 12/11 16:22 Order name: LFT's; Complete Time: 17:54 [facility] 12/11 16:22 Order name: Magnesium; Complete Time: 17:54 [facility] 12/11 16:22 Order name: NT PRO-BNP; Complete Time: 17:54 [facility] 12/11 16:22 Order name: PT-INR; Complete Time: 17:54 [facility] 12/11 16:22 Order name: Troponin (emerg Dept Use Only); Complete Time: 17:54 [facility] 12/11 16:31 Order name: UDS; Complete Time: 17:54 [facility] 12/11 16:50 Order name: COVID-19 : Document "Date of Symptom Onset" if Symptomatic. [facility] 12/11 16:57 Order name: Lipase; Complete Time: 17:54 [facility] 12/11 16:59 Order name: Urine Dipstick-Ancillary; Complete Time: 17:54 [facility] 12/11 17:57 Order name: Blood Culture Adult (2) [facility] 12/11 16:22 Order name: XRAY Chest (1 view); Complete Time: 17:55 [facility] 12/11 16:22 Order name: EKG; Complete Time: 16:23 12/11 16:22 Order name: Cardiac monitoring; Complete Time: 16:22 12/11 16:22 Order name: EKG - Nurse/Tech; Complete Time: 16:22 12/11 16:22 Order name: IV Saline Lock; Complete Time: 16:42 12/11 16:22 Order name: Labs collected and sent; Complete Time: 16:42 [facility] 12/11 16:22 Order name: O2 Per Protocol; Complete Time: 16:34 12/11 16:22 Order name: O2 Sat Monitoring; Complete Time: 16:43 12/11 18:19 Order name: Procalcitonin la1 12/11 18:40 Order name: Thorax W/ Con [facility] 12/11 19:09 Order name: SARS-COV-2 RT PCR [facility] 12/11 16:31 Order name: Urine Dipstick-Ancillary (obtain specimen); Complete Time: 17:18 myra EC:06 Rate is 62 beats/min. Rhythm is regular. QRS [place] is Normal. ID interval is normal. QRS myra interval is normal. QT interval is normal. No Q waves. T waves are Normal. No ST changes noted. Clinical impression: No evidence of ischemia. Interpreted by me. Reviewed by me. Administered Medications: 17:17 Drug: NS 0.9% 1000 ml Route: IV; Rate: 125 ml/hr; Site: right jugular; zb 21:39 Follow up: Response: No adverse reaction; IV Status: Infusion continued upon admission; zb IV Intake: 375ml 17:17 Drug: Aspirin 81 mg Route: PO; zb 21:39 Follow up: Response: No adverse reaction; Marked relief of symptoms zb 18:00 Drug: Rocephin (cefTRIAXone) 1 grams Route: IV; Rate: per protocol; Site: right jugular;zb 19:30 Follow up: Response: No adverse reaction; IV Status: Completed infusion; IV Intake: 20mlzb 18:34 Drug: Zithromax (azithromycin) 500 mg Route: IVPB; Infused Over: 1 hrs; Site: right zb antecubital; 21:39 Follow up: Response: No adverse reaction; IV Status: Completed infusion; IV Intake: zb 250ml Disposition: 12/11/20 17:09 Hospitalization ordered by Stiven Willis for Observation. Preliminary diagnosis are Chest pain, unspecified, Hypotension - resolved, Elevated white blood cell count. - Bed requested for Telemetry/MedSurg (observation). - Status is Observation. iw - Condition is Stable. - Problem is new. - Symptoms have improved. Signatures: Dispatcher [employer] EDNV January Vivas, RN RN Lionel Glaser MD MD cha Williams, Irene, RN RN Lara De, RN RN Twila Bush RN RN [email or web address] Corrections: (The following items were deleted from the chart) 16:57 16:32 LIPASE+C.LAB.BRZ ordered. EDNV EDNV 17:54 17:09 Hospitalization Ordered by Stiven Willis for Observation. Preliminary diagnosis myra is Chest pain, unspecified; Hypotension - resolved. Bed requested for Telemetry/MedSurg (observation). Status is Observation. Condition is Stable. Problem is new. Symptoms have improved. myra 18:06 16:50 CORONAVIRUS ordered. EDNV EDNV 18:40 17:57 Chest For PE Angio+CT.RAD.BRZ ordered. EDNV EDNV 21:36 17:54 12/11/2020 17:09 Hospitalization Ordered by Stiven Willis for Observation. dw Preliminary diagnosis is Chest pain, unspecified; Hypotension - resolved; Elevated white blood cell count. Bed requested for Telemetry/MedSurg (observation). Status is Observation. Condition is Stable. Problem is new. Symptoms have improved. myra 22:58 21:36 12/11/2020 17:09 Hospitalization Ordered by Stiven Willis for Observation. iw Preliminary diagnosis is Chest pain, unspecified; Hypotension - resolved; Elevated white blood cell count. Bed requested for Telemetry/MedSurg (observation). Status is Observation. Condition is Stable. Problem is new. Symptoms have improved. dw
--- NOTE | 2020-12-11 17:09 | ER ---
Nurse's Notes [facility] Name: Kathy Whyte Age: 55 yrs Sex: Female : 1965 Arrival Date: 12/11/2020 Time: 16:15 Bed 30 Private MD: Diagnosis: Chest pain, unspecified;Hypotension-resolved;Elevated white blood cell count Presentation: 12/11 16:15 Chief complaint: EMS states: called out for "low blood pressure and low heart rate". aa5 EMS reports pt's BP upon their arrival was 110/70 and HR was WNL, pt reported BP of 80/60. Pt also c/o burning chest pain radiating to L arm and back. Pt was given 81mg ASA x 3 by EMS and pt reports taking ASA x 81mg prior to EMS arrival. 16:15 Coronavirus screen: At this time, the client does not indicate any symptoms associated aa5 with coronavirus-19. Ebola Screen: Patient negative for fever greater than or equal to 101.5 degrees Fahrenheit, and additional compatible Ebola Virus Disease symptoms. Initial Sepsis Screen: Does the patient meet any 2 criteria? No. Patient's initial sepsis screen is negative. Does the patient have a suspected source of infection? No. Patient's initial sepsis screen is negative. Risk Assessment: Do you want to hurt yourself or someone else? Patient reports no desire to harm self or others. Onset of symptoms was December 11, 2020. 16:15 Acuity: ARI 2 aa5 16:15 Method Of Arrival: EMS: [facility] aa5 Historical: - Allergies: 16:15 Compazine; aa5 16:15 Demerol; aa5 16:15 Morphine; aa5 16:15 Neurontin; aa5 16:15 NSAIDS; aa5 16:15 Stadol; aa5 16:15 Toradol; aa5 - PMHx: 16:15 Anxiety; CVA; Depression; Hypertension; High Cholesterol; Myocardial infarction; aa5 Seizures; - PSHx: 16:15 Cholecystectomy; Heart stents; Appendectomy; CABG; Hysterectomy; aa5 - Immunization history:: Adult Immunizations up to date. - Social history:: Smoking status: Reported history of juuling and/or vaping. - Family history:: not pertinent. Screenin:31 Abuse screen: Denies threats or abuse. Denies injuries from another. Nutritional zb screening: No deficits noted. Tuberculosis screening: No symptoms or risk factors identified. Fall Risk No fall in past 12 months (0 pts). Secondary diagnosis (15 points) seizures, IV access (20 points). Ambulatory Aid- None/Bed Rest/Nurse Assist (0 pts). Gait- Normal/Bed Rest/Wheelchair (0 pts) Mental Status- Oriented to own ability (0 pts). Total Choi Fall Scale indicates High Risk Score (45 or more points). Fall prevention measures have been instituted. Side Rails Up X 2 Placed Close to Nursing Station Frequent Obs/Assessments Occuring Family Present and informed to notify staff if the need to leave the bedside As available patient and family educated on Fall Prevention Program and Strategies. Assessment: 16:29 General: Appears in no apparent distress. uncomfortable, Behavior is calm, cooperative, zb appropriate for age. Pain: Complains of pain in chest Pain does not radiate. Pain currently is 8 out of 10 on a pain scale. Quality of pain is described as heavy, pressure, Pain began 3 hours ago. Is continuous, Also complains of nausea. Neuro: Level of Consciousness is awake, alert, obeys commands, Oriented to person, place, time, situation, Moves all extremities. Full function Reports dizziness. Cardiovascular: Heart tones S1 S2 present Capillary refill < 3 seconds fingers Patient's skin is warm and dry. Respiratory: Airway is patent Respiratory effort is even, unlabored, Respiratory pattern is regular, symmetrical, Breath sounds are clear bilaterally. GI: Abdomen is flat, Reports nausea. Derm: Skin is intact, is healthy with good turgor, Skin is dry, Skin is normal, Skin temperature is warm. Musculoskeletal: Range of motion: intact in all extremities. 16:33 Reassessment: ECP at bedside. zb 18:35 Reassessment: Patient appears in no apparent distress at this time. Patient and/or zb family updated on plan of care and expected duration. Pain level reassessed. Patient is alert, oriented x 3, equal unlabored respirations, skin warm/dry/pink. hospitalists at bedside. 19:30 Reassessment: Patient appears in no apparent distress at this time. Patient and/or zb family updated on plan of care and expected duration. Pain level reassessed. Patient is alert, oriented x 3, equal unlabored respirations, skin warm/dry/pink. iv fluid continues to infuse. 20:30 Reassessment: Patient appears in no apparent distress at this time. Patient and/or zb family updated on plan of care and expected duration. Pain level reassessed. Patient is alert, oriented x 3, equal unlabored respirations, skin warm/dry/pink. IV continue to infuse. 21:30 Reassessment: Patient appears in no apparent distress at this time. Patient and/or zb family updated on plan of care and expected duration. Pain level reassessed. Patient is alert, oriented x 3, equal unlabored respirations, skin warm/dry/pink. family at bedside. IV fluids continue to infuse. 21:44 Reassessment: attempted to call report x1. zb 21:56 Reassessment: MAP 60. notified hospitalist 500ml of NS bolus ordered and given. zb Vital Signs: 16:15 BP 108 / 66; aa5 16:35 BP 119 / 73; Pulse 72; Resp 18; Pulse Ox 100% on R/A; zb 17:35 BP 106 / 53; Pulse 60; Resp 16; Pulse Ox 100% on R/A; zb 18:35 BP 102 / 50; Pulse 62; Resp 16; Pulse Ox 97% on R/A; zb 21:50 BP 93 / 57; Pulse 66; Resp 16; Pulse Ox 97% on R/A; zb 22:12 BP 107 / 61; Pulse 58; Resp 19; Pulse Ox 97% on R/A; zb ED Course: 16:15 Patient arrived in ED. aa5 16:15 Arm band placed on Patient placed in an exam room, on a stretcher. aa5 16:15 EKG completed in triage. Results shown to MD. aa5 16:20 Lionel Rodrigez MD is Attending Physician. myra 16:25 Triage completed. aa5 16:29 Twila Wallace RN is Primary Nurse. zb 16:31 Patient has correct armband on for positive identification. monitoring and evaluation advisor on. Pulse zb ox on. NIBP on. Door closed. Noise minimized. 16:33 Patient maintains SpO2 saturation greater than 95% on room air. zb 16:35 Missed attempt(s): 22 gauge in left antecubital area. Bleeding controlled, band aid ca1 applied, catheter tip intact. 16:43 Initial lab(s) drawn, by ED staff, sent to lab. Inserted saline lock: 18 gauge in right ca1 EJ, using aseptic technique. ,using aseptic technique. by Dr. Rodrigez Blood collected. 16:57 XRAY Chest (1 view) In Process Unspecified. EDMS 17:08 Stiven Willis is Hospitalizing Provider. myra 18:45 Thorax W/ Con In Process Unspecified. EDMS 22:32 No provider procedures requiring assistance completed. Patient admitted, IV remains in zb place. 22:[address] (2nd floor). zb Administered Medications: 17:17 Drug: NS 0.9% 1000 ml Route: IV; Rate: 125 ml/hr; Site: right jugular; zb 21:39 Follow up: Response: No adverse reaction; IV Status: Infusion continued upon admission; zb IV Intake: 375ml 17:17 Drug: Aspirin 81 mg Route: PO; zb 21:39 Follow up: Response: No adverse reaction; Marked relief of symptoms zb 18:00 Drug: Rocephin (cefTRIAXone) 1 grams Route: IV; Rate: per protocol; Site: right jugular;zb 19:30 Follow up: Response: No adverse reaction; IV Status: Completed infusion; IV Intake: 20mlzb 18:34 Drug: Zithromax (azithromycin) 500 mg Route: IVPB; Infused Over: 1 hrs; Site: right zb antecubital; 21:39 Follow up: Response: No adverse reaction; IV Status: Completed infusion; IV Intake: zb 250ml Intake: 19:30 IV: 20ml; Total: 20ml. zb 21:39 IV: 250ml; Total: 270ml. zb 21:39 IV: 375ml; Total: 645ml. zb Outcome: 17:09 Decision to Hospitalize by Provider. myra 22:32 Admitted to Med/surg accompanied by tech, room 224, on monitor, Report called to juancho Lane RN 22:32 Condition: stable 22:32 Instructed on the need for admit, Demonstrated understanding of instructions. 22:58 Patient left the ED. iw Signatures: Dispatcher [employer] Lionel Julien MD MD cha Williams, Irene, RN RN iw Calderon, Audri, RN RN aa5 Acob, Sri, RN RN ca1 Brown, Twila, RN RN zb Corrections: (The following items were deleted from the chart) 16:28 16:15 Chief complaint: EMS states: called out for "low blood pressure and low heart aa5 rate". EMS reports pt's BP upon their arrival was 110/70 and HR was WNL, pt reported BP of 80/60. Pt also c/o burning chest pain radiating to L arm and back. aa5 21:39 20:00 Response: No adverse reaction; IV Status: Completed infusion; IV Intake: 250ml zb zb
[2020-12-11 17:13] LABS: ALT/SGPT 24 U/L (12-78); AST/SGOT 18 U/L (15-37); Albumin 3.7 g/dL (3.4-5.0); Alkaline Phosphatase 160 U/L (45-117); BUN Blood Urea Nitrogen 13 mg/dL (7-18); Bicarbonate 27 mmol/L (21-32); Bilirubin Direct < 0.1 mg/dL (0-0.2); Bilirubin Total 0.4 mg/dL (0.2-1.0); Glucose Level 89 mg/dL (74-106); Lipase 90 U/L (73-393); Magnesium 2.6 mg/dL (1.8-2.4); NT PRO-BNP 259 pg/mL (<125); Potassium 4.9 mmol/L (3.5-5.1); Protein, Total 7.6 g/dL (6.4-8.2); Sodium Level 133 mmol/L (136-145); Troponin (Emerg Dept Use Only) < 0.02 ng/mL (0.0-0.045)
[2020-12-11 17:25] LABS: Barbiturates NEGATIVE (NEGATIVE); Benzodiazepines NEGATIVE (NEGATIVE); Cocaine NEGATIVE (NEGATIVE); METHAMPHETAM NEGATIVE (NEGATIVE); Methadone NEGATIVE (NEGATIVE); Opiates NEGATIVE (NEGATIVE); Phencyclidine NEGATIVE (NEGATIVE); THC Cannibis POSITIVE (NEGATIVE)
[2020-12-11] MEDS ORDERED: NA CHLORIDE 0.9% 1,000 ML ONE (17:29)
[2020-12-11] MEDS ORDERED: ASPIRIN 81 MG CHEWABLE TABLET ONE (17:29)
--- NOTE | 2020-12-11 17:54 | RAD REPORT ---
EXAM DESCRIPTION: Avni Single View12/11/2020 4:57 pm CLINICAL HISTORY: Chest pain COMPARISON: October 2020 FINDINGS: Left base is hazy. Right lung appears clear. The heart is normal size. Postsurgical changes involve chest IMPRESSION: Left base is hazy probably secondary to overlying soft tissue rather than infiltrate. Th is could be confirmed with PA and lateral chest series
[2020-12-11] MEDS ORDERED: AZITHROMYCIN 500 MG INJ IVPB ONE (18:24)
[2020-12-11] MEDS ORDERED: NA CHLORIDE 0.9% 250 ML ONE (18:25)
[2020-12-11] MEDS ORDERED: CEFTRIAXONE/SWI 1gm 1 GM/10 ML SYR ONE (18:25)
[2020-12-11] MEDS ORDERED: INSULIN -REGULAR HUMAN 50 UNIT/0.5 ML ML ONE ×2 (18:26→21:02)
--- NOTE | 2020-12-11 18:58 | RAD REPORT ---
EXAM DESCRIPTION: CT - Thorax W/ Con - 12/11/2020 6:45 pm CLINICAL HISTORY: Chest pain COMPARISON: August 2020 and April 2020 TECHNIQUE: Computed axial tomography of the chest was obtained. 100 cc Isovue 300 was administered i ntravenously. All CT scans are performed using dose optimization technique as appropriate and may include automated exposure control or mA/KV adjustment according to patient size. FINDINGS: 4 millimeter right lower lobe nodule unchanged. The remainder of the lungs are clear. No mediastinal or hilar lymphadenopathy is seen. A pleural effusion is not present. A pericardial effusion is not seen. Fatty liver IMPRESSION: 4 millimeter right lower lobe nodule unchanged April 2020 probably benign. If the pa tient is high risk then followup CT in 12 months recommended for re-evaluation
[2020-12-11] MEDS ORDERED: INSULIN GLARGINE 100 UNITS/ML SQ ONE (21:00)
[2020-12-11] MEDS ORDERED: ATORVASTATIN 40 MG TAB PO SCH (23:04)
[2020-12-11] MEDS ORDERED: ACETAMINOPHEN 500 MG TAB PO PRN (23:04)
[2020-12-11] MEDS ORDERED: ONDANSETRON 4 MG/2 ML VIAL IV PRN (23:04)
--- NOTE | 2020-12-11 23:11 | P.HP ---
Certification for Inpatient Patient admitted to: Observation With expected LOS: <2 Midnights Patient will require the following post-hospital care: None Practitioner: I am a practitioner with admitting privileges, knowledge of patient current condition, hospital course, and medical plan of care. Services: Services provided to patient in accordance with Admission requirements found in Title 42 Section 412.3 of the Code of Federal Regulations Patient History Date of Service: 12/11/20 Reason for admission: Chest pain History of Present Illness: 55-year-old female with history of anti phospholipid syndrome, hypertension, hyperlipidemia, CVA, CAD presents emergency department for chest pain. Patient reports that she has had ongoing pressure-like chest pain throughout the day today. Patient reports that she had similar symptoms approximately 3 weeks prior when she was admitted to [facility] for a Minor heart attack. Patient reports that they wanted to do a heart catheterization but were unable to do so because her platelet count was very low. At that time patient was taken off of her Eliquis because of the low plate let count in the washer in the hospital for a couple of days. Patient has since followed up with her associate director qa Dr. sEcobar and was also supposed to see Hematology regarding the low platelet count. Patient was evaluated in the emergency department, labs were significant for white blood cell count 19.7 hemoglobin 11.7 hematocrit 35.5 sodium 133 alk-phos 160 troponin negative BNP 259 chest x-ray suggest easy left days possible pneumonia CT chest demonstrates 4 mm right lower lobe nodule which is unchanged from April 2020 and is most likely benign. Recommend CT in 12 months if patient is high risk. Urinalysis demonstrates trace blood, trace protein. Patient with previous cholecystectomy, not having any abdominal pain or tenderness. Patient without fever. Last documented heart catheterization was January 2020, patient had stent placement at that time, also had echocardiogram in January of last year with normal ejection fraction. Allergies butorphanol tartrate [From Stadol] Allergy (Intermediate, Verified 12/06/15 00:35) angry gabapentin [From Neurontin] Allergy (Intermediate, Verified 12/06/15 00:35) Blurred vision prochlorperazine [Prochlorperazine] Allergy (Mild, Verified 12/06/15 00:35) Rash prochlorperazine edisylate [From Compazine] Allergy (Verified 12/06/15 00:35) Unknown ketorolac tromethamine [From Toradol] Adverse Reaction (Intermediate, Verified 12/06/15 00:35) anxiety prochlorperazine maleate [From Compazine] Adverse Reaction (Intermediate, Verified 12/06/15 00:35) Hives NSAIDS (Non-Steroidal Anti-Inflamma Adverse Reaction (Mild, Verified 12/06/15 00:35) Nausea/Vomiting Home Medications: Albuterol Sulfate [Proair Hfa] 2 puff IH DAILYPRN PRN 01/20/20 Apixaban [Eliquis *] 5 mg PO BID 01/20/20 Budesonide/Formoterol Fumarate [Symbicort 160-4.5 Mcg Inhaler] 2 puff IH BIDP PRN 01/20/20 Codeine/APAP [Tylenol #3*] 1 tab PO TIDP PRN 01/20/20 Furosemide [Lasix*] 1 tab PO DAILYPRN PRN 01/20/20 LORazepam [Lorazepam] 1 tab PO BID 01/20/20 Metoprolol Tartrate [Lopressor*] 1 tab PO BID PRN 01/20/20 Potassium Chloride [K-Dur] 1 tab PO DAILY 01/20/20 Promethazine Tab [Phenergan*] 1 tab PO BIDP PRN 01/20/20 Sertraline [Zoloft*] 100 tab PO BID 01/20/20 Topiramate [Topamax*] 50 mg PO BID 01/20/20 Zolpidem Tartrate [Ambien*] 10 mg PO BEDTIME 01/20/20 buPROPion HCL [Wellbutrin*] 200 mg PO BID 01/20/20 hydrOXYzine HCL [Atarax] 1 tab PO BID 01/20/20 hydrOXYzine HCL [Atarax] 100 mg PO BEDTIME 01/20/20 methocarbamoL [Methocarbamol] 1 tab PO BID 01/20/20 Atorvastatin Calcium [Lipitor] 1 tab PO BEDTIME #30 tab 01/25/20 Clopidogrel Bisulfate [Plavix*] 75 mg PO DAILY #30 tablet 01/25/20 Omeprazole 40 mg PO DAILY 04/18/20 - Past Medical/Surgical History Diabetic: No -: HTN -: Hyperlipidemia -: History of CVA/TIA 2011 -: Antiphospholipid syndrome -: BLood clot (left forearm 09/2019) -: Depression -: Former Tobacco abuse -: Chronic pain -: Migraines, complex/complicated/mixed, acute headache -: GERD -: h/o of HI 09/2019 and 12/2019 s/p CABG at [facility] and stent -: Choleycystectomy -: Appendectomy -: Hysterectomy/left ovary removed -: (R) ankle/foot sx -: bilateral feet surgery-with plates and screws -: tonsillectomy -: November 2013 destinee cath placement, removed -: CABG (06/2019) Psychosocial/ Personal History: . Lives at home. - Family History Mother -: Hypertension, Diabetes Father -: Hypertension, Stroke - Social History Alcohol use: No CD- Drugs: Yes Caffeine use: No Place of Residence: Home Review of Systems 10-point ROS is otherwise unremarkable Cardiovascular: Chest Pain, As per HPI Physical Examination - Physical Exam General: Alert, In no apparent distress HEENT: Atraumatic, PERRLA, Mucous membr. moist/pink Neck: Supple, 2+ carotid pulse no bruit, No LAD Respiratory: Clear to auscultation bilaterally, Normal air movement Cardiovascular: Regular rate/rhythm, Normal S1 S2 Gastrointestinal: Normal bowel sounds, No tenderness Musculoskeletal: No tenderness Integumentary: No rashes Neurological: Normal speech, Normal strength at 5/5 x4 extr, Normal tone, Normal affect - Studies Laboratory Data (last 24 hrs) 12/11/20 16:35: PT 13.5 H, INR 1.17 12/11/20 16:35: WBC 19.70 H, Hgb 11.7 L, Hct 35.5 L, Plt Count 452 H 12/11/20 16:35: Sodium 133 L, Potassium 4.9, BUN 13, Creatinine 0.90, Glucose 89, Magnesium 2.6 H D, Total Bilirubin 0.4, AST 18, ALT 24, Alkaline Phosphatase 160 H, Lipase 90 12/11/20 16:31: Lipase Cancelled Assessment and Plan - Plan Assessment Chest pain, history of CAD S/P CABG/stenting-rule out ACS Leukocytosis History of anti phospholipid syndrome with previous DVT/CVA Hypertension Hyperlipidemia Plan Chest pain, history of CAD S/P CABG/stenting-rule out ACS: Trend troponins, monitor on telemetry. Patient currently taking only daily aspirin after having episode of thrombocytopenia, will continue daily aspirin. Cardiology consult in place, last heart catheterization was in January of last year, patient did have PCI at that time. Patient's heart rate has been relatively low around 55-60 in the ED, will start patient's home medications with parameters. DVT prophylaxis with SCDs. Leukocytosis: White blood cell count 19 with some left shift, questionable left pneumonia on x-ray but not present on CT. ROS otherwise negative, patient without any abdominal pain or tenderness has previous appendectomy/cholecystectomy. LFTs within normal limits. Patient without fever. Will continue with Rocephin/Zithromax that patient was initiated on in the emergency department for questionable left lower lobe pneumonia, repeat daily labs tomorrow to evaluate further. Will continue to monitor for signs of infection. Will obtain pro calcitonin with the morning labs. History of anti phospholipid syndrome with previous DVT/CVA: Patient taken off of her Eliquis due to thrombocytopenia, was supposed to follow up with hematology on outpatient basis but has not made it to this appointment yet. Platelets normal at this time, will need to discuss with cardiology about continuation of anti-platelet therapy/Eliquis. Hypertension: Obtain and continue home medications with parameters. Hyperlipidemia: Obtain and continue home medications. Discharge Plan: Home Plan to discharge in: 24 Hours - Advance Directives Does patient have a Living Will: No Does patient have a Durable POA for Healthcare: No - Code Status/Comfort Care Code Status Assessed: Yes (Full code) Critical Care: No Time Spent Managing Pts Care (In Minutes): 55
[2020-12-11] MEDS ORDERED: ZOLPIDEM TARTRATE 10 MG TABLET PO PRN (23:43)
[2020-12-12] MEDS ORDERED: METRONIDAZOLE 500mg IVPB 500 MG/100 ML BAG IV ONE (01:10)
[2020-12-12 03:52] VITALS: BMI 26.5
[2020-12-12] MEDS ORDERED: CODEINE 30MG/APAP 300MG TAB PO PRN (04:21)
[2020-12-12] MEDS ORDERED: ALBUTEROL INHALER 60 PUFF/8 GM IH PRN (04:21)
[2020-12-12] MEDS ORDERED: LORAZEPAM 1 MG TABLET PO PRN (04:34)
[2020-12-12 05:47] LABS: Urine Appearance CLEAR (Clear); Urine Bilirubin NEGATIVE (Negataive); Urine Blood NEGATIVE (Negative); Urine Color YELLOW (Yellow); Urine Glucose NEGATIVE (Negative); Urine Protein NEGATIVE (Negative); Urine Urobilinogen 0.2 mg/dL (0.2-1.0); Urine pH 7.5 (5.0-7.0)
[2020-12-12 05:48] LABS: Urine Microscopic Reflex NO UMIC
[2020-12-12 06:18] LABS: Basophils % 1.2 % (0-1.3); Lymphocytes % 32.1 % (15.3-44.8); MPV 7.3 fL (7.6-11.3); RBC Red Blood Cell Count 4.31 M/uL (3.86-4.86)
[2020-12-12 07:04] LABS: ALT/SGPT 22 U/L (12-78); AST/SGOT 16 U/L (15-37); Albumin 3.5 g/dL (3.4-5.0); Alkaline Phosphatase 151 U/L (45-117); BUN Blood Urea Nitrogen 12 mg/dL (7-18); Bicarbonate 25 mmol/L (21-32); Bilirubin Total 0.3 mg/dL (0.2-1.0); Glucose Level 76 mg/dL (74-106); HDL Cholesterol 46 mg/dL (40-60); LDL Cholesterol, Calculated 68 (<130); Magnesium 2.6 mg/dL (1.8-2.4); Potassium 3.9 mmol/L (3.5-5.1); Protein, Total 7.3 g/dL (6.4-8.2); Sodium Level 138 mmol/L (136-145); Troponin I < 0.02 ng/mL (0.0-0.045)
[2020-12-12] MEDS ORDERED: REGADENOSON 0.4 MG/5 ML SYR IV ONE (08:21)
[2020-12-12] MEDS ORDERED: POTASSIUM CL SA 10 MEQ TAB PO ONE (09:00)
[2020-12-12] MEDS ORDERED: CEFTRIAXONE 1 GM/NS 50 ML 1 GM/50 ML BAG IV SCH (09:00)
[2020-12-12] MEDS ORDERED: DULERA 200/5 (MOMETASONE/FORMOTEROL) INHALER IH SCH (09:00)
[2020-12-12] MEDS ORDERED: AZITHROMYCIN IV 500 MG in NA CHLORIDE 0.9% 250 ML IVPB SCH (09:00)
[2020-12-12] MEDS ORDERED: SERTRALINE HCL 100 MG TAB PO SCH (09:00)
[2020-12-12] MEDS ORDERED: TOPIRAMATE 25 MG TAB PO SCH (09:00)
[2020-12-12] MEDS ORDERED: METOPROLOL TAR 25 MG TAB PO SCH (09:00)
[2020-12-12] MEDS ORDERED: buPROPion HCL 100 MG TAB PO SCH (09:00)
[2020-12-12] MEDS ORDERED: methocarbamoL 500 MG TAB PO SCH (09:00)
[2020-12-12] MEDS ORDERED: ENOXAPARIN 40 MG/0.4 ML SQ SCH (09:00)
[2020-12-12] MEDS ORDERED: HOME MED 1 EA UNK (Metoprolol Tartrate [Metoprolol Tartrate] 75 MG Tablet) PO SCH (09:00)
[2020-12-12] MEDS ORDERED: hydrOXYzine HCL 25 MG TAB PO SCH ×2 (09:00→21:00)
[2020-12-12] MEDS ORDERED: lisinopriL 10 MG TAB PO SCH (09:00)
[2020-12-12] MEDS ORDERED: ASPIRIN EC 81 MG TAB PO SCH (09:00)
[2020-12-12] MEDS ORDERED: CEFTRIAXONE/SWI 1gm 1 GM/10 ML SYR IV SCH (09:00)
--- NOTE | 2020-12-12 10:43 | RAD REPORT ---
EXAM DESCRIPTION: NM - Rest Stress Cardiac Imaging - 12/12/2020 10:28 am CLINICAL HISTORY: Chest painAugust 2011 COMPARISON: None. TECHNIQUE: The patient was administered approximately 10 mCi of Tc 99m Sestamibi prior to resting SP ECT imaging of the heart. The patient was then administered approximately 30 mCi of Tc 99m Sestamibi following exercise or pharmacologic stress. Multiplanar SPECT images were reviewed. FINDINGS: The end diastolic volume is 71 ml, the end systolic volume is 26 ml, and the ejection frac tion is 64 %. Calculated ejection fraction has improved since 2012. Current end-diastolic volume is s lightly smaller than the prior study. No stress-induced ischemic change identifiable on this study. The suspected inferoseptal ischemia and questionable anterior wall ischemia on the 2012 study are not evident currently. IMPRESSION: No stress-induced ischemic change. These suspected ischemic foci on the 2012 study are n ot seen on the current examination. Ejection fraction and the ventricular volumes are normal range and show improvement from 2012.
[2020-12-12 11:03] VITALS: O2SAT 98
--- NOTE | 2020-12-12 11:14 | EKG ---
Test Date: 2020-12-11 Test Time: 16:13:37 Lead Javascript Developer: MEASUREMENT RESULTS: Intervals: Rate: 62 TX: 144 QRSD: 108 QT: 432 QTc: 438 [place]: P: 71 TX: 144 QRS: 50 T: 61 INTERPRETIVE STATEMENTS: Normal sinus rhythm Right bundle branch block Abnormal ECG Compared to ECG 10/24/2020 02:09:22 No significant changes Electronically Signed On 12-12-20 11:13:26 CDT by Bora Soto
--- NOTE | 2020-12-12 12:16 | P.DS ---
Admission Date: 12/11/20 Discharge Date: 12/12/20 Primary Care Provider: Dr. Pablo; Cardiology-Dr. Escobar [facility] Disposition: ROUTINE DISCHARGE Discharge Condition: GOOD Reason for Admission: Chest pain Consultations: Cardiology-Dr. Soto Procedures: COVID: Negative Cardiac Stress test: FINDINGS: The end diastolic volume is 71 ml, the end systolic volume is 26 ml, and the ejection fraction is 64 %. Calculated ejection fraction has improved since 2012. Current end-diastolic volume is slightly smaller than the prior study. No stress-induced ischemic change identifiable on this study. The suspected inferoseptal ischemia and questionable anterior wall ischemia on the 2012 study are not evident currently. IMPRESSION: No stress-induced ischemic change. These suspected ischemic foci on the 2012 study are not seen on the current examination. Ejection fraction and the ventricular volumes are normal range and show improvement from 2012. CT scan: FINDINGS: 4 millimeter right lower lobe nodule unchanged. The remainder of the lungs are clear. No mediastinal or hilar lymphadenopathy is seen. A pleural effusion is not present. A pericardial effusion is not seen. Fatty liver IMPRESSION: 4 millimeter right lower lobe nodule unchanged April 2020 probably benign. If the patient is high risk then followup CT in 12 months recommended for re-evaluation Medical Problem List: Chest pain, history of CAD S/P CABG/stenting-rule out ACS History of anti phospholipid syndrome with previous DVT/CVA Hypertension Hyperlipidemia COPD Depression with anxiety Chronic pain Brief History of Present Illness: 55-year-old female with history of anti phospholipid syndrome, hypertension, hyperlipidemia, CVA, CAD presents emergency department for chest pain. Patient reports that she has had ongoing pressure-like chest pain throughout the day today. Patient reports that she had similar symptoms approximately 3 weeks prior when she was admitted to [facility] for a Minor heart attack. Patient reports that they wanted to do a heart catheterization but were unable to do so because her platelet count was very low. At that time patient was taken off of her Eliquis because of the low platelet count. Patient has since followed up with her slabber light Dr. Escobar and was also supposed to see Hematology regarding the low platelet count. Patient was evaluated in the emergency department, labs were significant for white blood cell count 19.7 hemoglobin 11.7 hematocrit 35.5 sodium 133 alk-phos 160 troponin negative BNP 259. Last documented heart catheterization was January 2020, patient had stent placement at that time, also had echocardiogram in January of last year with normal ejection fraction. Patient admitted to further address. Hospital Course: Patient presented with chest pain. No evidence of infection noted. CT scan showed 4 mm right lower lobe pulmonary nodule 4 mm in size unchanged since April 2020. Patient also with history of CAD, CABG, and stent. Troponins have been unremarkable. Patient was admitted for further evaluation. Patient seen by cardiology. Cardiac stress test performed showed no stress-induced i schemia. Patient had been previously hospitalized at [facility]. They have taken her off of Eliquis due to low platelets. Platelets are normal at this time. At discharge patient will continue with current medications. Recommend follow-up with her slabber light to further monitor and address. She is to follow-up with hematology as well to determine if Eliquis needs to be restarted. This can be further addressed by her PCP, cardiology and hematology. Patient with history of anti-phospholipid syndrome. As mentioned above patient has been taken off her Eliquis. She is to follow-up with hematology to further monitor and address. Patient with history of hypertension, hyperlipidemia, COPD, and depression with anxiety. At discharge she will continue with her medications including albuterol 2 puffs times a day as needed for shortness of breath, Symbicort 2 puffs twice daily, aspirin 81 mg daily, Lasix 40 mg daily as needed, Lipitor 80 mg daily, Wellbutrin 200 mg 1 pill twice daily, Atarax as directed, lorazepam 1 mg 1 pill twice daily, Zoloft 100 mg twice daily, Topamax 50 mg 1 pill twice daily, Tylenol #3 as directed for pain, lisinopril and milligrams daily, muscle relaxer as directed, and metoprolol 25 mg 1 pill twice daily. At discharge she will continue with her other medications. Vital Signs/Physical Exam: Temp Pulse Resp BP Pulse Ox 98.1 F 75 15 118/57 L 98 12/12/20 08:00 12/12/20 08:00 12/12/20 08:00 12/12/20 10:50 12/12/20 08:00 General: Alert, In no apparent distress, Oriented x3, Cooperative HEENT: Atraumatic Neck: Supple Respiratory: Clear to auscultation bilaterally, Normal air movement Cardiovascular: Normal pulses, Regular rate/rhythm Gastrointestinal: Normal bowel sounds, No tenderness, No masses, No rebound, No guarding Neurological: Normal speech, Normal strength at 5/5 x4 extr, Normal tone, Normal affect Laboratory Data at Discharge: WBC 12.50 K/uL (4.3-10.9) H D 12/12/20 05:55 Hgb 12.2 g/dL (12.0-15.0) 12/12/20 05:55 Hct 37.0 % (36.0-45.0) 12/12/20 05:55 Plt Count 394 K/uL (152-406) 12/12/20 05:55 PT 13.5 SECONDS (9.5-12.5) H 12/11/20 16:35 INR 1.17 12/11/20 16:35 Sodium 138 mmol/L (136-145) 12/12/20 05:55 Potassium 3.9 mmol/L (3.5-5.1) 12/12/20 05:55 BUN 12 mg/dL (7-18) 12/12/20 05:55 Creatinine 0.74 mg/dL (0.55-1.3) 12/12/20 05:55 Glucose 76 mg/dL (74-106) 12/12/20 05:55 Magnesium 2.6 mg/dL (1.8-2.4) H 12/12/20 05:55 Total Bilirubin 0.3 mg/dL (0.2-1.0) 12/12/20 05:55 AST 16 U/L (15-37) 12/12/20 05:55 ALT 22 U/L (12-78) 12/12/20 05:55 Alkaline Phosphatase 151 U/L (45-117) H 12/12/20 05:55 Troponin I < 0.02 ng/mL (0.0-0.045) 12/12/20 05:55 Triglycerides 242 mg/dL (<150) H 12/12/20 05:55 Cholesterol 162 mg/dL (<200) 12/12/20 05:55 HDL Cholesterol 46 mg/dL (40-60) 12/12/20 05:55 Cholesterol/HDL Ratio 3.52 12/12/20 05:55 Lipase 90 U/L (73-393) 12/11/20 16:35 Home Medications: Albuterol Sulfate [Proair Hfa] 2 puff IH DAILYPRN PRN 01/20/20 Budesonide/Formoterol Fumarate [Symbicort 160-4.5 Mcg Inhaler] 2 puff IH BIDP PRN 01/20/20 Codeine/APAP [Tylenol #3*] 1 tab PO TIDP PRN 01/20/20 Furosemide [Lasix*] 1 tab PO DAILYPRN PRN 01/20/20 LORazepam [Lorazepam] 1 tab PO BID 01/20/20 Potassium Chloride [K-Dur] 1 tab PO DAILY 01/20/20 Sertraline [Zoloft*] 100 tab PO BID 01/20/20 Topiramate [Topamax*] 50 mg PO BID 01/20/20 Zolpidem Tartrate [Ambien*] 10 mg PO BEDTIME 01/20/20 buPROPion HCL [Wellbutrin*] 200 mg PO BID 01/20/20 hydrOXYzine HCL [Atarax] 1 tab PO BID 01/20/20 hydrOXYzine HCL [Atarax] 100 mg PO BEDTIME 01/20/20 methocarbamoL [Methocarbamol] 1 tab PO BID 01/20/20 Atorvastatin Calcium [Lipitor] 1 tab PO BEDTIME #30 tab 01/25/20 Aspirin [Aspirin EC] 1 tab PO DAILY 12/11/20 Lisinopril [Zestril] 1 tab PO DAILY 12/11/20 Metoprolol Tartrate 1 tab PO BID 12/11/20 Physician Discharge Instructions: Follow up with PCP in one week Diet: AHA Activity: Ad tiarra Followup: NONE,NONE [Primary Care Provider] - Time spent managing pt's care (in minutes): 55
--- NOTE | 2020-12-12 12:26 | TREADPHA ---
DX: CHEST PAIN Date of Study: 12/12/2020 Ht: 5' 3 " Wt: 149 lb 14.4 oz Consulting Physician: DEVI MEDICATIONS: ASPIRIN, ATARAX, LIPITOR, ATIVAN, WELLBUTRIN HISTORY: HYPERTENSION, MYOCARDIAL INFARCTION TIMES THREE, BYOASS, CEREBRAL VASCULAR ACCIFENT. DENIES CHEST PAIN AT TIME OF TESTING. PHYSICIAL EXAMINATION: RESTING B.P.: 128/79 RESTING H.R.: 76 RESTING EKG: ELECTROCARDIOGRAM SENT TO DR. QUINONEZ PROTOCOL: PHARMACOLOGIC EXERCISE TIME: 3:30 B.P. AT [place]AK STRESS: 108/71 IMPRESSION: LEXISCAN STRESS TEST PERFORMED. CARDIOLITE INJECTED PER PROTOCOL. SEE NUCLEAR MEDICINE REPORT. NO SUPRAVENTRICULAR TACHYCARDIA. NO VENTRICULAR TACHYCARDIA. PREMATURE VENTRICULAR COMPLEXES NOTED THROUGHOUT ENTIRE STUDY. UPPER BACK PAIN. RESPIRATORY EVEN NONLABORED. PATIENT TOLERATED WELL.
[2020-12-12 14:07] VITALS: BP 126/60; TEMP 97.7
--- NOTE | 2020-12-12 16:53 | CON ---
Date of Consultation: 12/12/2020 Reason For Consultation: Admitted on 12/11/[address] Michel' service for chest pain. I saw the pa shobha on 12/12/2020. History Of Present Illness: Ms. Whyte is a 55-year-old woman. She is known to us from previous hos pitalization. In January 2020, catheterization showed the MENENDEZ to the LAD that is patent, she had a nor mal circumflex, she had a RCA ostial stenosis that was stented by Dr. Fatima that was in January 2020, s he has some diffuse distal disease. Since then, she has been in the hospital twice. She was suppose d to follow up with Dr. Escobar, but eventually had a non-STEMI, but did not have a catheterization be cause of low platelets, which has been worked up. Eliquis was stopped. The platelets now are normal . Chest pain is . Her troponin is negative. BNP is negative. EKG is nonspecific. We whitmore ve already planned for the Lexiscan today. She is pain free now. Past Medical History: Includes hypertension, dyslipidemia, CABG, PCI, CVA, gastroesophageal reflux d isease, COPD, and paroxysmal atrial fibrillation. Allergies: SHE IS ALLERGIC TO TRAMADOL AND NEURONTIN. Review of Systems: Negative. Social History: Negative. Family History: Negative. Medications: Now include aspirin, Lipitor, inhalers, Lasix, lisinopril, metoprolol, aspirin, Zoloft, Topamax. Physical Examination: Vital Signs: Stable, afebrile. HEENT: Negative. Neck: Supple with no bruit. Chest: Clear to auscultation and percussion. Cardiac: Revealed a regular rhythm and rate. No murmurs, gallops, or rubs. Abdomen: Benign. Extremities: Revealed no clubbing, cyanosis, or edema. Diagnostic Data: As stated earlier. Her white count is 19,000. Platelet count is normal. Impression And Plan: Ms. Whyte's symptoms are atypical. If her coronary artery disease is signific ant, I think before performing a left heart catheterization on her, I would really rather see an abno rmal stress test, we will review that. Lexiscan is pending. We will see what that shows before martina ng further decisions. Her other problems including hypertension, dyslipidemia, gastroesophageal refl ux disease, chronic obstructive pulmonary disease, and cerebrovascular accident are stable. She has had paroxysmal atrial fibrillation, but she is in sinus rhythm now and she did not tolerate Eliquis b ecause of thrombocytopenia. Her platelet count is normal. If her stress test is normal, I will be h appy to do a heart catheterization on her tomorrow. Continue present regimen otherwise. if the stress test is negative. ANDRES/VENANCIO Voice ID: [id number] Report ID: [id number]
[2020-12-12] MEDS ORDERED: ATORVASTATIN 80 MG TAB PO SCH (21:00)
== END 2020-12-12 14:00 | disposition home or self-care (01) ==
LOC: ER 16:04 → ERHOLD 19:47 → 2ND 22:35
PROVIDERS: ADMIT Family Medicine; ATTEND Family Medicine
DX: R07.9 Chest pain, unspecified (principal); I25.10 Atherosclerotic heart disease of native coronary artery without angina pectoris; Z95.1 Presence of aortocoronary bypass graft; Z95.5 Presence of coronary angioplasty implant and graft; D68.61 Antiphospholipid syndrome; Z86.73 Personal history of transient ischemic attack (TIA), and cerebral infarction without residual deficits; Z20.822 Contact with and (suspected) exposure to COVID-19; Z86.718 Personal history of other venous thrombosis and embolism; I10 Essential (primary) hypertension; E78.5 Hyperlipidemia, unspecified; J44.9 Chronic obstructive pulmonary disease, unspecified; F41.8 Other specified anxiety disorders; G89.29 Other chronic pain; R94.31 Abnormal electrocardiogram [ECG] [EKG]; Z87.891 Personal history of nicotine dependence; F32.9 Major depressive disorder, single episode, unspecified; I25.2 Old myocardial infarction; K21.9 Gastro-esophageal reflux disease without esophagitis; I48.0 Paroxysmal atrial fibrillation
CPT/HCPCS: 93005; 93017; 87040 ×2; 85025 ×2; 80048; 36415; 83735 ×2; 85610; 80061; 80076; 80307 ×8; 84443; 81003 ×2; 84484 ×3; 84439; 83690; 80053; 84145 ×2; 83880; 71260; 71045; 78452; 99285; U0003; Q9967; J0456; J1815; J2785; J7606; J0696 ×2; J7050; J7030; A9500; G0378

== ENCOUNTER 2021-04-05 18:25 | Observation (INO) | payer OTHER ==
--- OUTSIDE RECORDS SUMMARY | 2021-04-05 18:37 | XMS REPORT | Continuity of Care Document ---
:[address] [facility] [place], [place] t Address [address] [place] [address] Care Team Providers Name Role Phone Doctor [...] 00:00: [place] 00 Active 03/09/2019 [facility] DYSPNEA Diagnosis Active 2019-03-15 Me moria 03-09 15:12:00 l DYSPNEA 00:00: [place] 00 Active 03/09/2019 [facility] ENCEPHALIT Diagnosis Active 2015-03-23 Memoria IS/SEIZURE 03-16 15:07:00 l S 00:00: [place] ENCEPHALIT 00 IS/SEIZURE S Active 03/16/2015 [facility] NON-HEMORR Diagnosis Active 2014-11-01 Memoria AGHIC - 15:25:00 l STROKE 00:00: [place] NON-HEMORR 00 AGHIC STROKE Active 10/25/2014 [facility] ISCHEMIC Diagnosis Active 2013-11-13 M emoria CVA 11-12 04:08:00 l ISCHEMIC 00:00: Enrique n CVA 00 Active 11/12/2013 [facility] WEAKNESS Diagnosis Active 2013-11-26 M emoria 11-12 21:50:00 l WEAKNESS 00:00: Enrique n 00 Active 11/12/2013 [facility] AMS Diagnosis Active 2013-06-01 Mem oria 05-08 21:46:00 l AMS 00:00: [place] 00 Active 05/08/2013 [facility] CEREBRAL Diagnosis Active 2011-082012-07-24 M emoria VASCULAR 09-19 23:24:00 l ACCIDENT CEREBRAL 00:00: Herm tin VASCULAR 00 ACCIDENT Active 07/19/2012 [facility] Anxiety Problem Resolve 2019-03-14 Mem oria (finding) d 22:30:17 l Anxiety [place] (finding) Resolved Problem 03/14/2019 [facility] Antiphosph Problem Resolve 2019-03-14 Memoria olipid d 22:30:17 l syndrome [place] (disorder) Antiphosph olipid syndrome (disorder) Resolved Problem 03/14/2019 [facility] Transient Problem Resolve 2019-03-14 M emoria ischemic d 22:30:17 l attack [place] (disorder) Transient ischemic attack (disorder) Resolved Problem 03/14/2019 [facility] Gastroesop Problem Resolve 2019-03-14 Memoria hageal d 22:30:17 l reflux [place] disease Gastroesop (disorder) hageal reflux disease (disorder) Resolved Problem 03/14/2019 [facility] Hyperlipid Problem Resolve 2019-03-14 Memoria emia d 22:30:17 l (disorder) Enrique n Hyperlipid emia (disorder) Resolved Problem 03/14/2019 [facility] Nausea Problem Resolve 2019-03-14 Mike sujey (finding) d 22:30:17 l Nausea [place] (finding) Resolved Problem 03/14/2019 [facility] Anxiety Problem Active 2013-05-14 Mike sujey 21:29:09 l Anxiety [place] Active Problem 05/14/2013 [facility] COPD Problem Active 2013-05-14 Memor ia 21:29:09 l COPD [place] Active Problem 05/14/2013 [facility] Depression Problem Active 2013-05-14 M emoria 21:29:09 l [place] Depression Active Problem 05/14/2013 [facility] General Problem Active 2013-05-14 Mike sujey weakness 21:29:09 l General [place] weakness Active Problem 05/14/2013 [facility] Hypertensi Problem Active 2013-05-14 M emoria on 21:29:09 l [place] Hypertensi on Active Problem 3 [facility] Migraine Problem Active 2013-05-14 Mem oria 21:29:09 l Migraine Enrique n Active Problem 05/14/2013 [facility] Stroke Problem Active 2013-05-14 Memor ia 21:29:09 l Stroke [place] Active Problem 05/14/2013 [facility] Chronic Problem Active 2019-03-14 Mike sujey obstructiv 22:30:17 l e lung Chronic [place] disease obstructiv (disorder) e lung disease (disorder) Active Problem 03/14/2019 [facility] Cerebrovas Problem Active 2019-03-14 M emoria cular 22:30:17 l accident [place] (disorder) Cerebrovas cular accident (disorder) Active Problem 03/14/2019 [facility] Depression Problem Active 2015-03-25 M emoria - motion 01:09:45 l (qualifier Enrique n value) Depression - motion (qualifier value) Active Problem 03/25/2015 [facility] Asthenia Problem Active 2019-03-14 Mem oria (finding) 22:30:17 l Asthenia Enrique n (finding) Active Problem 03/14/2019 [facility] Hypertensi Problem Active 2019-03-14 M emoria ve 22:30:17 l disorder, [place] systemic Hypertensi arterial ve (disorder) disorder, systemic arterial (disorder) Active Problem 03/14/2019 [facility] Migraine Problem Active 2019-03-14 Mem oria (disorder) 22:30:17 l Migraine Enrique n (disorder) Active Problem 03/14/2019 [facility] Morbid Problem Active 2019-03-14 Memor ia obesity 22:30:17 l (disorder) Morbid Herm tin obesity (disorder) Active Problem 03/14/2019 [facility] DYSPNEA, Diagnosis Active 2019-03-15 M emoria UNSPECIFIE 15:12:00 l D DYSPNEA, Enrique n UNSPECIFIE D Active [facility] CVA Diagnosis Active 2014-11-01 Mem oria 15:25:00 l CVA [place] Active [facility] ALTERED Diagnosis Active 2013-06-01 Pa moria MENTAL 21:46:00 l STATUS ALTERED [place] MENTAL STATUS Active [facility] MALAISE Diagnosis Active 2013-11-26 Me moria AND 21:50:00 l FATIGUE MALAISE Enrique n NEC AND FATIGUE NEC Active [facility] FEBRILE Diagnosis Active 2015-03-23 Pa moria CONVULSION 15:07:00 l S NOS FEBRILE [place] CONVULSION S NOS Active [facility] 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, is, [facility]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 [facility] Adult BMI Adult BMI [...] Mora kes - s s Memoria l [facility] Obstructiv Obstructiv Problem Active [facility] sleep e sleep [facility] - apnea apnea Memoria l 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 Memori a l [facility] History of History of [...] [facility] Peripheral Peripheral Problem Active [facility] vascular vascular [facility] - disease disease [facility]oria l [facility] GERD GERD Diagnosis Active [facility] without without [facility] - esophagiti esophagiti Me moria s s l [facility] S/P CABG x S/P CABG x Problem Active [facility] 1 1 [facility] - Memoria l [facility] Chronic Chronic Problem Active [facility] systolic systolic [facility] - heart heart Memoria failure failure l [facility] Benign Benign Problem Active [facility] essential essential Luke s - HTN HTN Memoria l [facility] Obesity Obesity Problem Active [facility] Cough Cough Problem Active [facility] Anticoagul Anticoagul Problem Active [facility] ated ated [facility] - Memoria l [facility] Chronic Chronic Problem Active [facility] back pain back pain Luke s - Memoria l [facility] Stented Stented Problem Active [facility] History of History of Problem Active [facility] non-ST non-ST [facility] - elevation elevation Mike sujey myocardial myocardial l infarction infarction Ou tpati (NSTEMI) (NSTEMI) ent Clinics Coronary Coronary Problem Active [facility] artery artery [facility] - disease of disease of Me moria bypass bypass l graft of graft of [place] ent heart with heart with Cl inics stable stable angina angina pectoris pectoris Coronary Coronary Problem Active [facility] artery artery [facility] - disease disease Memoria involving involving l [place] [facility] coronary coronary ent artery of artery of Clin ics [place] heart with heart with angina angina pectoris pectoris Allergies, Adverse Reactions, Alerts Allergy Allergy Status Severity Reaction(s) Onset Inactive Treating Comm ents Source Name Type Date Date Clinician Toradol Adverse Active Info Not [facility] Reaction Available [facility] Stadol Adverse Active Info Not [facility] Reaction Available [facility] Lyrica Adverse Active Info Not [facility] Reaction Available [facility] Ibuprofe Adverse Active Info Not [facility] n Reaction Available [facility] - [facility] Divalpro Adverse Active Info Not [facility] ex Reaction Available [facility] labetalo labetalo Active Memori a l l l [place] NSAIDs NSAIDs Active Memoria l [place] Stadol Stadol Active Memoria l [place] Toradol Toradol Active Memoria l [place] Vicoprof Vicoprof Active Memori a en en l [place] Compazin Compazin Active Memori a e e l [place] Depakote Depakote Active Memori a l [place] Social History Social Habit Start Date Stop Date Quantity Comments Source Social History 2015-03-17 2015-03-17 [facility] ermann 07:18:43 07:18:43 Medications Ordered Filled [...] tab, PO, l tablet 20:52: Daily, # [place] 00 30 tab, 2 Refill(s) aripiprazol Yes [...] s with feeding tube less than 14 [place] (Dobhoff, J-tube etc) and pediatric and patients. [...] s with feeding tube less than 14 [place] (Dobhoff, J-tube etc) and pediatric and patients. [...] WASTE: F/P l 12:23: - Sink; E [place] 00 - Municipal Trash Bin Potassium No Notes: [...] Albuterol No Notes: Memori a 0.833 MG/ML 03-10 (Same as: l / 05:10: Duoneb) Ipratropium 00 [place] 0.167 MG/ML Inhalant Solution Potassium No Notes: [...] Syringe 03-10 25 mL, l 03:02: Route: [place] 00 IVP, Drug Form: INJ, Dosing Weight [...] Memoria 03-10 Route: l 00:24: IVP, Drug [place] Form: SOLN, Dosing Weight 97.5, kg, ONCALL, [...] 03-09 Total l 25,000 unit 23:37: Concentrat [place] [ ion = 50 unit/kg/hr] unit/mL; + [...] Heparin - No 4,000 Memoria one time -23 unit, [...] WASTE: F/P l 22:41: - Sink; E [place] [facility] Memolane Bin potassium No 40 mEq, 2 Mem oria chloride 20 03-09 tab, l mEq oral 22:41: Route: PO, [place] tablet, 00 Drug form: extended ERTAB, release ONCE, Dosing Weight 97.5, kg, Priority: STAT, Start date: 03/09/19 17:41:00 CDT, Stop date: 03/09/19 17:41:00 CDT, 0 Isolyte S No Notes: Memori a PH-7.4 03-09 (Same as: l (Bolus) IV 22:38: Isolyte S [facility] PH 7.4) Acetaminoph No Notes: [...] 1 Me moria r 1 g oral 8-05 tab, PO, l tablet 19:27: Q8H, X [...] Route: l 13:00: IVPB, Drug form: PDR/INJ, [id number], Dosing Weight 110.3, kg, Start date: 03/22/15 [...] 12:03: Mag-Ox [place] 00 400) Magnesium oxide [id number] g elemental magnesium Dose=____m g magnesium oxide (___mg elemental magnesium) Potassium No Notes: Memori a Chloride 03-19 (Same as: l 1.33 MEQ/ML 12:02: Potassium H ermann Oral 00 Chloride) Solution Lipitor No Notes: Memoria 03-18 Same as l 14:00: Lipitor Haloperidol No Notes: Mike sujey - (Same as: l 22:00: Haldol) Sertraline No [...] 04/15/15 21:00:00 Acyclovir No Notes: Memori a 31 (Same as: l 03:00: Zovirax) [place] 00 [...] tab, PO, l tablet 01:17: BID, 0 [place] 00 Refill(s) Folic Acid No 1 mg = 1 Mem oria 1 MG Oral 7-31 tab, PO, l Tablet 01:17: Daily, # [place] 00 30 tab, 0 Refill(s) pantoprazol Yes 40 mg = 1 M emoria e 40 mg 7-31 tab, PO, l oral 01:17: Daily, # [place] enteric 00 30 tab, 0 coated Refill(s) tablet triazolam No 0.25 mg = Mem oria 0.25 mg -31 1 tab, PO, l oral tablet 01:17: [...] = 1 M emoria 100 mg oral 31 tab, PO, l tablet 01:17: BID, 0 [place] 00 Refill(s) thiothixene No 2 mg = 1 Me moria 2 mg oral 03-17 cap, PO, l capsule 01:17: BID, 0 [place] 00 Refill(s) acyclovir No IV, Q8H, 0 Me moria 500 mg 03-17 Refill(s) l intravenous 01:17: Enrique n injection 00 Methocarbam No 250 mg, Mem oria ol 03-17 PO, BID, 0 l 01:17: Refill(s) [place] Acetaminoph No 650 mg, Mem oria en 03-17 PO, PRN, 0 l 01:17: Refill(s) [place] lisinopril No 20 mg = 1 Me [...] 3-17 Route: PO, l 14:00: Drug form: [place] 00 TAB, Daily, Dosing Weight 110.3, kg, [...] nn [Topamax] 00 tab, 0 Refill(s) atorvastati 2014-0 Yes 80 mg = 1 M emoria [...] 3-16 Route: PO, l 22:00: Drug form: [place] 00 TAB, BID, Dosing Weight 110.3, kg, [...] 3-16 Route: PO, l 21:36: Drug form: [place] 00 TAB, Q6H, Dosing Weight 110.3, kg, [...] l oral tablet 21:32: Daily, # 7 [place] 00 tab, 0 Refill(s) Wellbutrin No Notes: [...] 3-13 mL, Route: l 09:30: IVPB, Drug [place] 00 form: INJ, ONCE, Start date: 10/28/14 [...] emoria 3-12 Rate: 100 l 16:29: ml/hr, [place] 00 Infuse over: 10 hr, Route: IV, Dosing Weight 110.3 kg, Total Volume: 1,000, Start date: 10/27/14 11:29:00, Duration: 30 day, Stop date: 11/26/14 11:28:00 pantoprazol No Notes: Mike sujey e 3-12 Same as: l 14:00: Protonix [place] 00 Protonix No Notes: Memoria 3-12 Tablet l 14:00: should not [place] 00 be chewed or crushed. (Same as: Protonix) Propofol 10 No Notes: If M emoria MG/ML 3-12 Diprivan - l Injectable 12:02: change Aliza nn Suspension 00 bottle & tubing every 12 hr Per state nursing law propofol can only be given by a nurse if patient is intubated or being intubated (unless the nurse is a SLICING MACHINE OPERATOR). Same as: Diprivan sodium No Notes: Memoria bicarbonate -12 (sodium l 75 mEq + 07:02: bicarb [place] Sodium 00 8.4% (1 Chloride mEq/ml) 50 0.45% IV ml VL) 925 mL ketAMINE No Notes: Per Mem oria 500 mg + 12 state l Sodium 06:53: nursing [place] Chloride 00 law 0.9% IV 245 ketamine mL can only be given by a nurse if patient is intubated or being intubated (unless the nurse is a SLICING MACHINE OPERATOR). Keppra No Notes: Memoria 3-12 Same as: l 02:00: Keppra [place] 00 Vancomycin No 2000 mg: Me moria [...] mg 3-11 (Same as: l injection 23:00: SoluSHAWN He r[place] 00 F) physiologic No Notes: Mike sujey al 3-11 Total l irrigating 22:25: ingredient H ermann solution 00 s in bag Na 140meq/L; K 4meq/L; HCO 35meq/L; Ca 3meq/L; Magnesium 1meq/L; CL 113meq/L; Glucose 100mg/dL; "Break seal Between compartmen ts and mix before hanging" sennosides, No Notes: Mike sujey [facility] 3-11 (Same as: l 22:00: Senokot) [place] 00 Lipitor No Notes: Memoria 10-26 Same as l 22:00: Lipitor [place] 00 Xarelto No Notes: Memoria 10-26 (Same [...] Mem oria 10-26 state l 21:49: nursing [place] 00 law ketamine can only be given by a nurse if patient is intubated or being intubated (unless the nurse is a SLICING MACHINE OPERATOR). lidocaine No Notes: Memori a 1% 10-26 (Same as: l 21:26: Xylocaine) [place] 00 Ketamine No Notes: Per Mem oria 10-26 state l 21:00: nursing [place] 00 law ketamine can only be given by a nurse if patient is intubated or being intubated (unless the nurse is a SLICING MACHINE OPERATOR). Calcium No 1,000 mg, Memor ia Chloride 11 10 mL, l 20:40: Route: [place] 00 IVPB, ONCE, Dosing Weight 110.3, kg, Start date: 10/26/14 15:40:00, Stop date: 10/26/14 15:40:00 Iohexol No Special Memoria 10-26 Instructio l 20:24: ns: Dose = [place] 2.2ml/kg, Max dose = 100ml -- "To be infused by Radiology Staff ONLY" Ketamine No Notes: Memoria 3 Total l 19:23: Concentrat [place] 00 ion = 1mg/ml Total Volume = [...] being intubated (unless the nurse is a SLICING MACHINE OPERATOR). sodium No Notes: Memoria bicarbonate 3-11 (sodium l 8.4% 18:53: bicarb [place] 00 8.4% (1 mEq/ml) 50 ml syringe) Succinylcho No Notes: Mike sujey line 3-11 Same as: l 18:53: Anectine [place] 00 Fentanyl No 1,000 Memoria 3-11 microgram, l 18:52: 20 mL, [place] 00 Rate: Titrate as directed, Dosing Weight [...] 30 day, Stop date: 11/25/14 13:19:00 Magnesium 2014-0 No 2 gm, 50 Mike sujey Sulfate [...] moria 3-11 infuse l 14:08: over 2.5 [place] 00 hours Vancomycin FOR IV SET ONLY PlasmaLyte No 2,000 mL, Me moria A PH-7.4 311 Rate: l 2,000 mL 14:06: 2,000 [place] 00 ml/hr, Infuse over: 1 hr, Route: IV, Dosing Weight 110.3 kg, Total Volume: 2,000, Start date: 10/26/14 9:06:00, Duration: 30 day, Stop date: 11/25/14 9:05:00 Wellbutrin No Notes: Memor ia 3-11 (Same As: l 14:00: Wellbutrin [place] ) Haldol No Notes: Memoria 3-11 (Same as: l 14:00: Haldol) [place] 00 Topamax No Notes: Memoria 3-11 (Same As: l 14:00: Topamax) [place] 00 "Do Not Crush" Saline No Notes: [...] Memoria 10-26 (Same as: l 12:19: Protonix) [place] 00 Albumin No Notes: Memoria Human, [facility] 10-26 LOT#: l 50 MG/ML 10:34: [place] Injectable 00 ___ Solution Mfg: (Same as: Albuminar) "blood product derivative " Versed No Notes: Memoria 10-26 (Same as: l 09:00: Versed) [place] 00 magnesium No 2 gm, 50 Mike sujey sulfate 3-11 mL, Route: l 07:00: IVPB, Drug [place] 00 form: INJ, Q2H, Start date: 10/26/14 2:00:00, Duration: 2 doses or times, Stop date: 10/26/14 4:00:00 Iohexol No Special Memoria 10-26 Instructio l 05:56: ns: Dose = [place] 2.2ml/kg, Max dose = 100ml -- "To be infused by Radiology Staff ONLY" magnesium No 4 gm, 100 Mem oria sulfate 3-11 mL, Route: l 05:44: IVPB, Drug [place] 00 form: INJ, ONCE, Start date: 10/26/14 0:44:00, Stop date: 10/26/14 0:44:00 Reglan 2014- No Notes: Memoria 3 (Same as: l 05:21: Reglan) [place] 00 Valproic 2014-0 No 1,000 mg, Mike [...] Memoria 10-26 Route: l 05:14: IVP, Drug [place] form: INJ, Q6H, Dosing Weight 110.3, kg, Priority: NOW, Start date: 10/26/14 0:14:00, Duration: 30 day, Stop date: 11/25/14 0:00:00 NS 1,000 mL No 1,000 mL, M emoria 10-26 Rate: 150 l 05:01: ml/hr, [place] 00 Infuse over: 6.7 hr, Route: IV, Dosing Weight 110.3 kg, Total Volume: 1,000, Start date: 10/26/14 0:01:00, Duration: 30 day, Stop date: 11/25/14 0:00:00 Sodium 2014- No 1,000 mL, Memori a Chloride 10-26 1,000 l 0.154 04:54: ml/hr, [place] MEQ/ML 00 Infuse Injectable Over: 1 Solution hr, Route: IV, 1,000, Drug form: INJ, ONCE, Priority: STAT, Dosing Weight 110.3 kg, Start date: 10/25/14 23:54:00, Duration: 1 doses or times, Stop date: 10/25/14 23:54:00 Navane 2014- Yes 2 mg, PO, Memori a 10-26 BID, 0 l 03:29: Refill(s) [place] Bupropion Yes 200 mg = 2 Me moria Hydrochlori 3-11 tab, PO, l de 100 MG 03:29: BID, 0 Enrique n Oral Tablet 00 Refill(s) [Wellbutrin ] tramadol Yes 50 mg = 1 Mike sjuey hydrochlori 3-11 tab, PO, l de 50 [...] tab, PO, l Tablet 03:29: QPM, 0 [place] [Xarelto] 00 Refill(s) Esomeprazol No = 1 tab, Me moria e 40 MG 3-11 PO, Daily, l Enteric 03:29: 0 [place] Coated 00 Refill(s) Capsule [Nexium] 120 ACTUAT No 1 spray, Mem oria Triamcinolo -11 NASAL, l ne 03:29: Daily, # [place] Acetonide 00 17 gm, 0 0.055 Refill(s) MG/ACTUAT Nasal Inhaler [Nasacort] atorvastati Yes 80 mg = 1 M emoria n 80 MG 3-11 tab, PO, l Oral Tablet 03:29: Daily, 0 He rmann [Lipitor] 00 Refill(s) Haldol Yes 2 mg, PO, Memori a 3-11 BID, 0 l 03:28: Refill(s) [place] 00 Acetaminoph No Notes: Max Memoria en - acetaminop l 03:01: hen = [place] 00 4000mg/day (4 gm/day). (Same as: Tylenol) Sodium No 1,000 mL, Memori a Chloride 3-11 1,000 l 0.154 02:35: ml/hr, [place] MEQ/ML 00 Infuse Injectable Over: 1 Solution hr, Route: IV, 1,000, Drug form: INJ, ONCE, Priority: STAT, Dosing Weight 96.364 kg, Start date: 10/25/14 21:35:00, Duration: 1 doses or times, Stop date: 10/25/14 21:35:00 Saline No Notes: Memoria Flush 0.9% 3-11 (Same as: l 02:33: BD [place] 00 Posiflush) Ondansetron No Notes: Mike sujey 3-11 (Same as: l 02:33: Zofran) [place] 00 NS 1,000 mL No 1,000 mL, M emoria 3-11 Rate: 100 l 02:30: ml/hr, [place] 00 Infuse over: 10 hr, Route: IV, [...] 3-11 mL, Route: l 02:28: IVP, Drug [place] 00 Form: INJ, Dosing Weight 96.364, kg, PRN, PRN Abnormal Lab Result, Start date: 10/25/14 21:28:00, Duration: 30 day, Stop date: 11/24/14 21:27:00 Coumadin 2013-0 No 2 mg, 1 Memori a 3-30 tab, l 22:00: Route: PO, [place] 00 Drug form: TAB, Q5PM, Start date: [...] tab, l Oral Tablet 18:00: Route: PO, [place] [Keppra] 00 Drug form: TAB, Q12H, Dosing Weight 96.364, kg, Start date: 11/14/13 13:00:00, Duration: 30 day, Stop date: 12/14/13 9:00:00(Sa me as:Keppra) pneumococca 0 No 0.5 ml, Mem [...] ia 3-30 cap, l 03:09: Route: PO, [place] 00 Drug form: CAP, Bedtime, Dosing Weight 96.364, kg, PRN Insomnia, Start date: 11/13/13 22:09:00, Duration: 1 day, Stop date: 11/14/13 22:08:00(S pinky as: Benadryl) atorvastati No 80 mg, 2 Me moria n 3-30 tab, l 02:00: Route: PO, [place] 00 Drug form: TAB, Bedtime, Dosing Weight [...] ensure documentat ion of patient education per [facility]. Avoid large intake of vitamin-K containing foods diet. (Same As: Coumadin) Ativan No 0.5 mg, 1 Memori a 3-29 tab, l 21:00: Route: PO, 00 Drug form: TAB, ONCE, Dosing Weight 96.364, kg, Start date: 11/13/13 16:00:00, Stop date: 11/13/13 16:00:00(S pinky as: Ativan) Ativan No 0.5 mg, 1 Memori a [...] 3-29 mL, Route: l 12:06: IV, Drug [place] 00 form: INJ, PRN, Dosing Weight 96.364, kg, PRN Other -See Comment, Start date: 11/13/13 7:06:00, Duration: 30 day, Stop date: 12/13/13 7:05:00([facility] as: Versed) Iohexol No 85 mL, Memoria 11-13 Route: l 11:04: IVP, Drug Form: SOLN, Dosing Weight 96.364, kg, ONCALL, STAT, Start date: 11/13/13 6:04:00, Duration: 1 doses or times, Stop date: 11/14/13 0:00:00, Dose = 2.2ml/kg, Max dose = 100ml -- "To be infused by Radiology Staff ONLY"(Same as:Omnipaq ue 350). Enoxaparin No 40 mg, 0.4 M emoria -29 mL, Route: l 11:00: SUB-Q, Drug form: INJ, [id number], Dosing Weight 96.364, kg, Start date: 11/13/13 [...] 11-13 Rate: 100 l 0.154 10:15: ml/hr, [place] MEQ/ML 00 Infuse Injectable over: 10 Solution [...] BID, 60 l capsule 18:40: Brown tab, [place] 33 Substituti on Allowed, CAP Zoloft 100 2012- Yes Anna Marie 100 mg, 1 Memoria mg oral 9-25 Janey tab, PO, l tablet 18:40: Brown BID, 60 [place] 28 tab, Substituti on Allowed, TAB haloperidol Yes Anna Marie 2 mg, 1 Memoria 2 mg oral 9-25 Janey tab, PO, l tablet 18:40: Brown BID, 60 [place] 12 tab, Substituti on Allowed Wellbutrin 2012- Yes [place] 100 mg, 1 Memoria 100 mg oral 9-25 Janey tab, PO, l tablet 18:39: Brown BID, 60 [place] 54 tab, Substituti on Allowed, TAB Levaquin Yes Anna Marie 750 mg, 1 M emoria 750 mg oral 9-25 Janey tab, PO, l tablet 12:12: Brown Q24H, 7 [place] 09 tab, Substituti on Allowed, TAB Flagyl [...] Daily, 30 l oral 22:16: Brown cap, [place] capsule 28 Substituti on Allowed, Maintenanc e, [...] Amado Route: l Chloride 23:00: Bubis IVPB, [place] 0.9% IV 250 00 [id number], mL Dosing Weight 98.182, kg, Start date: 05/10/13 18:00:00, Duration: 30 day, Stop date: 06/08/13 18:00:00 Neutra-Phos 2012- No Anna Marie 1 pkt, M emoria 05-10 Janey Route: PO, l 22:45: Brown Drug Form: Enrique n 00 PDR/REC, Dosing Weight 98.182, kg, ONCE, Start date: 05/10/13 17:45:00, Stop date: 05/10/13 17:45:00 magnesium 2012- No Anna Marie 1 gm, Mike sujey sulfate 05-10 Jnaey Route: l 22:45: Brown IVPB, Drug Enrique n form: INJ, ONCE, Dosing Weight 98.182, kg, Start date: 05/10/13 17:45:00, Stop date: 05/10/13 17:45:00 heparin 2012- No Anna Marie 5,000 Memori a 05-10 [...] Route: PO, [place] 00 Drug form: TAB, [id number], Dosing Weight 98.182, kg, Start date: 05/10/13 [...] Zi tab, l 00:00: Angeline Route: PO, [place] 00 Drug form: TAB, On Adm, Start date: 05/09/13 19:00:00, Duration: 1 doses or times, Stop date: 05/09/13 21:00:00 magnesium No Kamal 500 mg, Mike sujey oxide base 05-09 Zi Route: PO, l 500 mg oral 23:08: Angeline Drug form: [place] tablet 00 TAB, ONCE, Dosing Weight 98.182, [...] n 05-09 Carmen Route: PO, l 13:10: Jaimeiener Drug Form: Herm tin 00 TAB, Dosing [...] gm, Memoria 05-09 Dom Route: l 13:00: Tmo IVPB, Drug Enrique n 00 form: PDR/INJ, SUQP12F, Dosing Weight 98.182, kg, Start date: 05/09/13 [...] Dom 12.5 mL, l 12:40: Tom Route: [place] 00 IVP, Drug Form: INJ, Dosing Weight [...] l 12:35: Zwiener Route: PO, Herm tin Drug form: TAB, ONCE, Dosing Weight 98.182, kg, Start date: 05/09/13 7:35:00, Stop date: 05/09/13 7:35:00 Omnipaque No Hannah 85 mL, Memor ia 350mg/ml 05-09 Dom Route: l 11:49: Tom IVP, Drug [place] 00 Form: SOLN, Dosing Weight 98.182, kg, ONCALL, STAT, Start date: 05/09/13 6:49:00, Duration: 1 doses or times, Dose = 2.2ml/kg, Max dose = 100ml -- "To be infused by Radiology Staff ONLY"Dose = 2.2ml/kg, Max dose = 100ml -- "To be infused by Radiology Staff ONLY" NS 1000 mL No Lyndon 1,000 mL, Memoria 05-09 Amado Rate: 150 l 03:31: Bubis ml/hr, [place] Infuse over: 6.7 hr, Route: IV, Dosing [...] 30 day, Stop date: 06/07/13 21:57:00 Saline 2012- No Linsey 5 ml, Memori a Flush 0.9% 05-09 Vanessa Route: l 02:00: Read IVP, Drug Aliza nn Brice Form: INJ, Dosing Weight 113.636, kg, Q12H, Start date: 05/08/13 21:00:00, Duration: 30 day, Stop date: 06/07/13 9:00:00 docusate 2012-0 No Linsey 100 mg, 1 Memoria 05-09 Vanessa cap, l 02:00: Read Route: PO, Herm tin 00 Brice Drug form: CAP, Q12H, Dosing Weight [...] tab, PO, l tablet 19:05: Q6H, 24 [place] 27 tab, Substituti on Allowed, TAB aspirin 325 2011-08 Yes Anita Marcelino 325 mg, 1 [facility]oria mg tablet 2-04 [place] tab, PO, l 19:05: Daily, 30 [place] 08 tab, Substituti on Allowed, TAB verapamil 2011-08 No Anita Marcelino 40 mg, 1 [facility] 40 mg oral 2-04 [place] tab, PO, l tablet 19:03: TID, 90 [place] 44 tab, Substituti on Allowed, TAB caffeine 2011-08 No Anita Marcelino 100 mg, 1 [facility] 100 mg oral 2-04 [place] tab, PO, l tablet 19:03: Q3H, 12 [place] 29 tab, Substituti on Allowed, TAB caffeine 2011-08 No Naomi Viki 250 mg, Memoria 2-04 Quang Route: l 18:15: IVPB, [place] 00 ONCE, Dosing Weight 113.636, kg, Start [...] tab, PO, l tablet 17:59: TID, 90 [place] 46 tab, 3, 3, Substituti on Allowed, [...] tab, PO, l tablet 14:30: Q12H, 6 [place] 09 tab, Substituti on Allowed, TAB Lipitor [...] Reynaldo 81 mg, 1 Memor ia 2-03 Ogvind tab, l 21:00: Koranne Route: PO, Herm [...] Castellanos mL, Route: l 17:00: Chahil SUB-Q, [place] Drug form: INJ, Q24H, Dosing Weight 113.636, kg, Start date: 07/19/12 11:00:00, Duration: 30 day, Stop date: 08/17/12 11:00:00 hydromorpho 2011-08 No David Agustin 1 mg, 0.5 Memoria ne -02 Spicer mL, Route: l 16:49: IVP, Drug [place] 00 form: INJ, ONCE, Dosing Weight 113.636, kg, Priority: STAT, Start date: 07/19/12 10:49:00, Stop date: 07/19/12 10:49:00 Plavix 2011-08 No Anita Marcelino 75 mg, 1 Mem oria 2-02 [place] tab, l 16:17: Route: PO, [place] 00 Drug form: TAB, Daily, Dosing Weight [...] No Baudilio 650 mg, 2 Memoria en 09-19 Castellanos tab, l 16:05: Chahil Route: PO, [...] NEEDED FOR ent NAUSEA AND Clinics VOMITING Immunizations Ordered Immunization Filled Immunization Date Status Commen ts Source Name Name influenza virus 2014-10-28 Completed [facility] vaccine, inactivated 17:00:00 Herm tin pneumococcal 2013-11-14 Completed [facility] 23-valent vaccine 19:53:00 [place] influenza virus 2012-07-21 Completed [facility] vaccine, inactivated 19:37:00 Herm tin influenza virus 2012-07-21 Completed [facility] vaccine, inactivated 19:37:00 Herm tin Vital Signs Vital Name Observation Time Observation Value Comments Source Systolic (mm Hg) 2019-03-13 01:15:00 Mike rial [place] Diastolic (mm Hg) 2019-03-13 01:15:00 Mem orial [place] Temperature Oral (F) 2019-03-13 01:15:00 97.0 F [facility] [place] Respitory Rate 2019-03-13 01:15:00 Memori al [place] Heart Rate 2019-03-12 22:53:00 [facility] [place] Respitory Rate 2019-03-12 22:07:00 Mem[facility] al [place] Systolic (mm Hg) 2019-03-12 22:07:00 Mike rial [place] Diastolic (mm Hg) 2019-03-12 22:07:00 Mem orial [place] Heart Rate 2019-03-12 22:07:00 [facility] [place] Systolic (mm Hg) 2019-03-12 20:52:00 Mike rial [place] Diastolic (mm Hg) 2019-03-12 20:52:00 Mem orial [place] Temperature Oral (F) 2019-03-12 20:52:00 97.3 F [facility] [place] Respitory Rate 2019-03-12 20:52:00 Mem[facility] al [place] Heart Rate 2019-03-12 20:52:00 [facility] [place] Temperature Oral (F) 2019-03-12 16:26:00 97.3 F [facility] [place] Weight 2019-03-10 08:42:00 [facility] [place] Weight 2019-03-10 08:31:00 [facility] Height 2019-03-10 08:31:00 160.02 cm [facility] BMI Calculated 2019-03-10 08:31:00 Mem[facility] al [place] Weight 2019-03-09 20:31:00 [facility] [place] BMI Calculated 2019-03-09 20:31:00 Mem[facility] al [place] Height 2019-03-09 20:31:00 172.72 cm [facility] [place] Temperature Oral (F) 2015-03-22 21:22:00 97.5 F [facility] [place] Heart Rate 2015-03-22 21:22:00 [facility] [place] Respitory Rate 2015-03-22 21:22:00 Mem[facility] al [place] Systolic (mm Hg) 2015-03-22 21:22:00 Mike rial [place] Diastolic (mm Hg) 2015-03-22 21:22:00 Mem orial [place] Heart Rate 2015-03-22 17:00:00 [facility] [place] Respitory Rate 2015-03-22 17:00:00 Mem[facility] al [place] Temperature Oral (F) 2015-03-22 17:00:00 97.4 F [facility] [place] Systolic (mm Hg) 2015-03-22 17:00:00 Mike rial [place] Diastolic (mm Hg) 2015-03-22 17:00:00 Mem orial [place] Systolic (mm Hg) 2015-03-22 14:14:00 Mike rial [place] Diastolic (mm Hg) 2015-03-22 14:14:00 Mem orial [place] Heart Rate 2015-03-22 14:14:00 [facility] [place] Temperature Oral (F) 2015-03-22 14:14:00 97.8 F [facility] [place] Respitory Rate 2015-03-22 14:14:00 [facility] al [place] Weight 2015-03-17 00:52:00 [facility] [place] Height 2015-03-17 00:52:00 160.02 cm [facility] [place] BMI Calculated 2015-03-17 00:52:00 Mem[facility] al [place] Temperature Oral (F) 2014-11-01 00:46:00 98.1 F [facility] [place] Heart Rate 2014-11-01 00:46:00 [facility] [place] Respitory Rate 2014-11-01 00:46:00 Mem[facility] al [place] Systolic (mm Hg) 2014-11-01 00:46:00 Mike rial [place] Diastolic (mm Hg) 2014-11-01 00:46:00 Mem orial [place] Temperature Oral (F) 2014-10-31 21:18:00 98.6 F [facility] [place] Heart Rate 2014-10-31 21:18:00 [facility] [place] Respitory Rate 2014-10-31 21:18:00 [facility] al [place] Systolic (mm Hg) 2014-10-31 21:18:00 Mike rial [place] Diastolic (mm Hg) 2014-10-31 21:18:00 Mem orial [place] Temperature Oral (F) 2014-10-31 15:55:00 98.2 F [facility] [place] Respitory Rate 2014-10-31 15:55:00 [facility] al [place] Systolic (mm Hg) 2014-10-31 15:55:00 Mike rial [place] Diastolic (mm Hg) 2014-10-31 15:55:00 Mem orial [place] Heart Rate 2014-10-31 15:55:00 [facility] [place] Weight 2014-10-26 02:54:00 [facility] [place] BMI Calculated 2014-10-26 02:54:00 [facility] al [place] Height 2014-10-26 02:54:00 160.02 cm [facility] [place] Diastolic (mm Hg) 2013-11-14 19:30:00 Mem orial [place] Heart Rate 2013-11-14 19:30:00 [facility] [place] Systolic (mm Hg) 2013-11-14 19:30:00 Mike rial [place] Respitory Rate 2013-11-14 19:30:00 Memori al [place] Temperature Oral (F) 2013-11-14 19:30:00 98.3 F [facility] [place] Heart Rate 2013-11-14 17:18:00 [facility] [place] Respitory Rate 2013-11-14 17:18:00 Memori al [place] Temperature Oral (F) 2013-11-14 17:18:00 98.0 F [facility] [place] Systolic (mm Hg) 2013-11-14 17:18:00 Mike rial [place] Diastolic (mm Hg) 2013-11-14 17:18:00 Mem orial [place] Diastolic (mm Hg) 2013-11-14 16:00:00 Mem orial [place] Systolic (mm Hg) 2013-11-14 16:00:00 Mike rial [place] Temperature Oral (F) 2013-11-14 15:04:00 97.4 F [facility] [place] Respitory Rate 2013-11-14 07:00:00 Mem[facility] al [place] Height 2013-11-13 11:04:00 162.56 cm [facility] [place] Weight 2013-11-13 11:04:00 [facility] [place] BMI Calculated 2013-11-13 11:04:00 [facility] al [place] BMI Calculated 2013-11-13 08:43:00 [facility] al [place] Height 2013-11-13 08:43:00 160.02 cm [facility] [place] Weight 2013-11-13 08:43:00 [facility] [place] Heart Rate 2013-11-13 08:43:00 [facility] [place] Heart Rate 2013-05-12 16:17:00 [facility] [place] Diastolic (mm Hg) 2013-05-12 16:17:00 Mem orial [place] Systolic (mm Hg) 2013-05-12 16:17:00 Mike rial [place] Respitory Rate 2013-05-12 15:30:00 Memori al [place] Diastolic (mm Hg) 2013-05-12 12:53:00 Mem orial [place] Systolic (mm Hg) 2013-05-12 12:53:00 Mike rial [place] Respitory Rate 2013-05-12 12:53:00 Memori al [place] Heart Rate 2013-05-12 12:53:00 [facility] [place] Temperature Oral (F) 2013-05-12 12:53:00 99.1 F [facility] [place] Diastolic (mm Hg) 2013-05-12 08:31:00 Mem orial [place] Systolic (mm Hg) 2013-05-12 08:31:00 Mike rial [place] Respitory Rate 2013-05-12 08:31:00 Mem[facility] al [place] Heart Rate 2013-05-12 08:31:00 [facility] [place] Temperature Oral (F) 2013-05-12 08:31:00 99.8 F [facility] [place] Temperature Oral (F) 2013-05-12 04:50:00 99.8 F [facility] [place] Height 2013-05-09 03:31:00 160.02 cm [facility] [place] Weight 2013-05-09 03:31:00 [facility] [place] Respitory Rate 2012-07-22 01:09:00 Memori al [place] Systolic (mm Hg) 2012-07-22 01:09:00 Mike rial [place] Diastolic (mm Hg) 2012-07-22 01:09:00 Mem orial [place] Temperature Oral (F) 2012-07-22 01:09:00 98.6 F [facility] [place] Heart Rate 2012-07-22 01:09:00 [facility] [place] Diastolic (mm Hg) 2012-07-21 21:10:00 Mem orial [place] Systolic (mm Hg) 2012-07-21 21:10:00 Mike rial [place] Temperature Oral (F) 2012-07-21 21:10:00 97.2 F [facility] [place] Heart Rate 2012-07-21 21:10:00 [facility] [place] Respitory Rate 2012-07-21 21:10:00 Memori al [place] Temperature Oral (F) 2012-07-21 18:26:00 98.5 F [facility] [place] Heart Rate 2012-07-21 18:26:00 [facility] [place] Respitory Rate 2012-07-21 18:26:00 Mem[facility] al [place] Diastolic (mm Hg) 2012-07-21 18:26:00 Mem orial [place] Systolic (mm Hg) 2012-07-21 18:26:00 Mike rial [place] Weight 2012-07-19 12:37:00 [facility] [place] Height 2012-07-19 12:37:00 160.02 cm [facility] [place] Procedures Procedure Date / Time Performing Clinician Source Performed Spinal puncture, 2015-03-17 20:30:27 [facility] rmann therapeutic, for drainage of cerebrospinal fluid (by needle or catheter) Appendectomy [facility] [place] Cholecystectomy [facility] [place] Ankle fusion<sup>1</sup> Memoria l [place] Appendectomy [facility] [place] Cholecystectomy [facility] [place] Fixation of fracture using Memor ial Cab[place] plate Hysterectomy [facility] [place] Encounters Start End Encounter Admission Attending Care Care Encounter Source Date/Time Date/Time Type Type Clinicians Facility Department ID 2021-03-26 2021-03-26 Orders Doctor ROSEMARY [id number] 00:00:00 00:00:00 Only Unassigned, OSITO [id number] [facility] [id number] 2021-03-14 2021-03-14 Office ANTHONY Escobar [id number] 13:32:33 14:03:23 Visit Ludwig Gill [id number] Luke [id number] [facility] [id number] [facility], [facility]–1983 059 [facility] 2020-03-28 2020-03-28 [facility] [id number] [facility] 16:00:00 16[facility]:00 [facility] Medicine Outpati ent Clinics 2020-02-21 2020-02-21 [facility] [id number] 15:00:00 15:00:00 [facility] Medicine Outpati ent Clinics 2020-02-16 2020-02-16 [facility] [id number] 07:13:00 07:13:00 [facility] [email or web address] [facility] Medicine Outpati ent Clinics 2020-02-15 2020-02-15 [facility] [id number] 14:22:00 14:22:00 [facility] [email or web address] [facility] Medicine Outpati ent Clinics 2020-01-12 2020-01-12 [facility] [id number] 16:30:00 16:30:00 [facility] [address] [facility] Medicine Outpati ent Clinics 2019-12-27 2019-12-27 [facility] [id number] 14:45:00 14:45:00 [facility] [email or web address] [facility] Medicine Outpati ent Clinics 2019-09-27 2019-09-27 [facility] [id number] 15:00:00 15:00:00 [facility] [email or web address] [facility] Medicine Outpati ent Clinics 2019-03-09 2019-03-13 [facility] [id number] 2019-03-09 2019-03-12 Outpatient Natasha [facility] [id number] 15:30:52 21:00:00 Henryliliya Deshaun 2019-03-09 2019-03-09 Inpatient E [facility] [address] [place] [address] 18:36:00 15:30:00 2015-03-16 2015-03-23 Inpatient nullFlavo [facility] [id number] Memoria 23:33:00 01:09:00 r [place] 11 l [facility] 2015-03-16 2015-03-22 Outpatient Yissel [facility] [id number] 18:33:00 20:09:00 Gael Stephenson 11 2014-10-26 2014-11-01 Inpatient nullFlavo [facility] [id number] Memoria 01:37:00 01:05:00 r [place] 69 l [facility] 2014-10-25 2014-10-31 Outpatient Radha [id number] 20:37:00 20:05:00 [facility] [id number] 8408-03-29 2013-11-14 Inpatient nullFlavo [facility] [id number] Memoria 08:43:00 23:45:00 [facility] [id number] [address] 2013-11-13 2013-11-14 Outpatient Radha [facility] [id number] 03:43:00 18:45:00 Wilberto 2013-05-08 2013-05-12 Inpatient nullFlavo [facility] [id number] Memoria 16:15:00 14:00:00 r [facility] 64 l [facility] 2012-07-19 2012-07-21 Inpatient nullFlavo [facility] [id number] Memoria 10:05:00 21:30:00 [facility] 37 l [facility] Results Test Description Test Time Test Comments [...] code = MCH) 29.0 pg 27.0-31.0 [facility] UzapgccYXGLFYESNQ6532-04-29 08:51:0032.7[facility] HermannHEMATOLOGY 2019-03-12 08:51:0088.4[facility] DhchfcdBOFFZFXKRV5493-02-58 08:51:0032.2[facility] HermannPARATHYROID MDOHJVJ8670-29-80 08:51:001.05[facility] HermannPARATHYROID UKMDQML1770-48-80 08:51:001.05[facility] HermannCHEM TPJQZ0045-62-71 21:57:0083 [facility] HermannCHEM YDLFF2363-17-49 21:57:0011.4[facility] HermannCHEM PANEL 2019-03-11 21:57:008.2[facility] HermannCHEM PQXRH9723-03-99 21:57:0025[facility] HermannCHEM UFPYP3482-08-72 21:57:54013Ptayjeej HermannCHEM AUEIG9821-62-59 21:57:003.4[facility] HermannCHEM XPLWX3704-60-15 21:57:000.80[facility] HermannCHEM CJSDV1428-49-01 21:57:10127Txwrsnea HermannCHEM FIHCM7909-56-76 21:57:35558 [facility] HermannCHEM OXCPB4913-41-21 21:57:004[facility] HermannPARATHYROID DSRTFGG4889-91-39 21:57:001.07[facility] HermannPARATHYROID RSHQLYW7377-82-25 21:57:001.07[facility] HermannURINE AND BJYYW9078-38-10 21:57:004[facility] [place] URINE AND LAHHU5579-20-09 21:57:00Negative (03/11/19 4:57 PM)[facility] [place] URINE AND YJQYZ3357-89-00 21:57:00<1.0[facility] HermannURINE AND STOOL 2019-03-11 21:57:00Negative (03/11/19 4:57 PM)[facility] HermannURINE AND STOOL 2019-03-11 21:57:00Negative *NA*(03/11/19 4:57 PM)[facility]annURINE AND STOOL 2019-03-11 21:57:00Negative (03/11/19 4:57 PM)[facility]annURINE AND STOOL 2019-03-11 21:57:001[facility] HermannURINE AND PHMSX4404-85-16 21:57:00Yellow *NA*(03/11/19 4:57 PM)[facility]annURINE AND SGZRH5294-48-46 21:57:00Slight *ABN*(03/11/19 4:57 PM)[facility]annURINE AND DHKZU5832-68-03 21:57:00 Test Item Value Reference Range Interpretation Comments UA Spec Grav (test code = UA Spec 1.016 1 Grav) [facility]annURINE AND FEMXH1030-02-71 21:57:00 Test Item Value Reference Range Interpretation Comments UA pH (test code = UA pH) 8.0 1 5.0-8.0 [facility] HermannURINE MMVZ6696-34-26 21:57:007.4[facility]annURINE CHEM 2019-03-11 21:57:25409Vcdceqdq HermannURINE WHSO2644-37-83 21:57:63714Kzxwcanx HermannURINE TYYQ8434-57-87 21:57:68542Jomdmzpx HermannURINE JYQN9315-62-20 21:57:00Negative (03/11/19 4:57 PM)[facility] HermannCHEM SJKBR8552-67-54 09:03:00 109[facility] HermannCHEM KDCLI9587-21-56 09:03:002.9[facility] HermannCHEM PANEL 2019-03-11 09:03:57305Eevoredt HermannCHEM HRQYQ3564-40-92 09:03:000.51[facility] HermannCHEM FQZRQ0892-34-12 09:03:004[facility] HermannCHEM EWDPA3560-32-64 09:03:0079[facility] HermannCHEM XUKTM3917-19-92 09:03:007.6[facility] HermannCHEM GWRVN8508-25-06 09:03:009.9[facility] HermannCHEM TFTCZ2436-31-38 09:03:0027 [facility] HermannCHEM DTFLX1798-07-46 09:03:33127Gcaiaatg HermannCHEM PANEL 2019-03-11 09:03:003.7[facility] HermannCHEM EDQSH7032-56-32 09:03:002.0[facility] SumcuqkFJKBJVRRMX0794-51-86 09:03:008.1[facility] IiliwvoCOJEZYRWQW8878-41-94 09:03:47310Fdoarlkh IppgrpmWCUELHWPVE7210-83-92 09:03:0016.6[facility] [place] GMWGFZUKRV3100-12-25 09:03:00 Test Item Value Reference Range Interpretation Comments MCH (test code = MCH) 29.0 pg 27.0-31.0 [facility] LtnvosvCNJAIUVFJV0193-74-17 09:03:0033.0[facility] HermannHEMATOLOGY 2019-03-11 09:03:003.64[facility] TitsdriIVXWOWWMZI6117-01-93 09:03:0010.6[facility] LuowvisMUHPFXDSHC0944-13-78 09:03:009.3[facility] XokfjqeHFECWCQZAW1147-78-15 09:03:0087.8[facility] YadrixuBVFCUROBKW9269-03-00 09:03:0032.0[facility] GZTPSHQTIN7715-51-88 09:03:004.0[facility] HtlfzybXWDJYSTPKH4487-21-26 09:03:00 62.5[facility] LilusqgLUUHMJYJMK8049-50-69 09:03:0027.8[facility] HermannHEMATOLOGY 2019-03-11 09:03:004.5[facility] GxjikrpYQNMXUYITR4101-31-57 09:03:005.8[facility] DtvqegrCCDEZSHTNU7398-51-68 09:03:002.6[facility] PbriimiEZPQCDNUDD1344-33-83 09:03:000.4[facility] FvfojubDTZCXPZTAR4922-76-36 09:03:000.4[facility] [place] QCFYDUIXSG5994-39-26 09:03:001.2[facility] KkitzqtGUXVCRMBZP2954-62-08 09:03:000.1 [facility] HermannPARATHYROID BWEBQVQ6739-90-90 09:03:000.91[facility] [place] PARATHYROID ZCLGHKL3864-64-23 09:03:000.96[facility] LhxqiypOHNCPWFBAV8717-33-86 19:00:000.3[facility] JuhcvvbJAOUABXIJY6704-63-76 19:00:000.4[facility] [place] ONGZZGJPWU5780-97-11 19:00:002.8[facility] SqnzuahTUTJFOQASJ9625-47-62 19:00:000.1 [facility] PgcyxxdLHBPALVDHM7508-89-92 19:00:0061.6[facility] HermannHEMATOLOGY 2019-03-10 19:00:0029.1[facility] GmnepmtCESGJBUHWV8963-33-86 19:00:001.2[facility] FgluflcDDQQQMKWKR3201-56-83 19:00:004.5[facility] OudpfarMRIZKNTEUL0490-12-49 19:00:005.8[facility] QujsenkSUANSVEEIL1688-97-15 19:00:003.6[facility] DVVIDQLUOT1956-20-97 19:00:007.9[facility] LlksezvVGIJXMNKCS4173-27-96 19:00:00 34.6[facility] ShttrohYRGECKBBZK3097-58-83 19:00:00 Test Item Value Reference Range Interpretation Comments MCH (test code = MCH) 28.6 pg 27.0-31.0 [facility] FcirqkdYJBFLQZSEC6467-03-78 19:00:0088.5[facility] HermannHEMATOLOGY 2019-03-10 19:00:11867Ygrvozzd LcaihbtNYJEQTAYHV3618-56-54 19:00:0016.7[facility] XkjonacOXBRHXOPTW6898-55-47 19:00:0032.3[facility] DmiaqpoYXMPIQFCIL0422-28-94 19:00:0011.2[facility] CfeeforGQNULZWAUO4474-94-08 19:00:003.91[facility] QMTBIRBJJI2243-69-30 19:00:009.5[facility] QjazphlYICZGQTKWH4526-85-63 19:00:00 Test Item Value Reference Range Interpretation Comments INR (test code = INR) 1.06 1 0.85-1.17 Memorial LcgglehMOJLKJGKQE9365-72-24 19:00:00 Test Item Value Reference Range Interpretation Comments PT (test code = PT) 13.6 s 12.0-14.7 Memorial YbfvwgkJFFRBNTSOR7636-02-97 19:00:00 Test Item Value Reference Range Interpretation Comments PTT (test code = PTT) 36.3 s 22.9-35.8 [facility] HermannCARDIAC VZWTNXI8960-43-25 11:47:000.30[facility] HermannCHEM PANEL 2019-03-10 11:47:001.6[facility] HermannCHEM GYUOG9800-65-96 11:47:002.1[facility] QwlittmDIOSCA2751-02-13 11:47:00 Test Item Value Reference Range Interpretation Comments VLDL (test code = VLDL) 39 1 [facility] HshxpluOBQBQI4120-47-53 11:47:0036[facility] JynnrrvDJRQEY4402-16-99 11:47:0028[facility] FlyksvwFNQJAQ9415-94-16 11:47:69144Xhcnhebf HermannLIPIDS 2019-03-10 11:47:88314Wtiizfqy UbnkejqDFCZCK5188-48-71 11:47:00 Test Item Value Reference Range Interpretation Comments CHD Risk (test code = CHD Risk) 3.68 1 3.90-5.80 [facility] HermannSPECIAL DFFUNCKVN8317-59-11 11:47:004.8[facility] HermannANEMIA DQIXC1065-73-08 09:18:14265Eqcsnyvo HermannANEMIA YHYGQ2120-49-13 09:18:004.4 [facility] HermannCARDIAC KRVLHTD2656-10-44 09:18:0010[facility] HermannCHEM PANEL 2019-03-10 09:18:86061Xjiknlln NictidtAXPARGASDU1710-21-78 07:49:00 Test Item Value Reference Range Interpretation Comments PTT (test code = PTT) 42.4 s 22.9-35.8 [facility] YqglafpILCOVEBMVO0418-56-81 07:49:00 Test Item Value Reference Range Interpretation Comments PT (test code = PT) 13.5 s 12.0-14.7 [facility] WhepndsLOZWIUICBF6423-02-13 07:49:00 Test Item Value Reference Range Interpretation Comments INR (test code = INR) 1.05 1 0.85-1.17 [facility] HermannCARDIAC JEJVAHI7505-27-74 07:00:000.48[facility] HermannCARDIAC RCNHXAQ5958-79-06 22:16:000.50[facility] HermannCARDIAC AKMOTMQ3390-98-17 22:16:00 63[facility] HermannCHEM TEOBB4487-49-05 22:16:001.2[facility] HermannHEMATOLOGY 2019-03-09 22:16:00 Test Item Value Reference Range Interpretation Comments PTT (test code = PTT) 31.7 s 22.9-35.8 [facility] MweynhmVEECNCUSFI4120-63-21 22:16:00 Test Item Value Reference Range Interpretation Comments INR (test code = INR) 1.07 1 0.85-1.17 [facility] GphelruQPALOEGVJT5871-05-49 22:16:00 Test Item Value Reference Range Interpretation Comments PT (test code = PT) 13.7 s 12.0-14.7 [facility] HermannCHEM BTKSV4642-95-70 09:12:003.5[facility] HermannCHEM PANEL 2015-03-22 09:12:001.8[facility] ZlorkevNYIXATYPOPKT8976-27-98 09:12:0022[facility] FudsbiqGKELVNQNEQAO2877-59-86 09:12:008.9[facility] VauriziAJIEELMVILUS1521-36-59 09:12:0014.6[facility] RqlzqqtFEHDMLCBEKWP5117-40-32 09:12:36020Jcrjidkm [place] POPQFAVSKUNH1056-49-25 09:12:003.6[facility] HxvigeaYUUTELDSWALL4712-53-41 09:12:000.9[facility] XqcokyxKPKEINYFUVCZ7134-59-66 09:12:77797Lrjkmxlc [place] SSUUFQEIGNPO4502-15-24 09:12:0081[facility] NtaituxKQRXHYNNPRCH6562-91-58 09:12:00 10[facility] AtkmetaRLCKIZNEHMFW2470-42-83 09:12:0075[facility]annHEMATOLOGY 2015-03-22 09:12:007.5[facility] RwegexyTXEAPCOVMA6337-36-34 09:12:71820Ajnubcdc SgbpkctYSZOYZRWQQ9580-11-82 09:12:0011.7[facility] XowvpdmNOHGUDJBPQ7829-17-55 09:12:0032.6[facility] NmzsshaMCMWFCRDTM1393-50-76 09:12:0084.1[facility] [place] GCSDQSVEMN8490-29-47 09:12:003.87[facility] SvgibcjAASRROFRTQ0497-01-69 09:12:00 10.4[facility] PulmmwiYRFSMGUNEF1921-28-08 09:12:0031.9[facility]annHEMATOLOGY 2015-03-22 09:12:00 Test Item Value Reference Range Interpretation Comments MCH (test code = MCH) 26.8 pg 27.0-31.0 [facility] SceksgsORSEKNCHVU1769-02-26 09:12:0017.6[facility]annHEMATOLOGY 2015-03-22 09:12:001.0[facility] RhvtassDQDUHDYDGT1073-17-60 09:12:007.4[facility] TftplkkQVOCYORMGT0745-74-59 09:12:0038.6[facility] DuexjwjTBNVAJPERY6988-52-73 09:12:0052.0[facility] FtqbvddZXZNBEVNMA2492-71-71 09:12:001.0[facility] [place] RBQQWAWDCZ1846-06-01 09:12:006.1[facility] MampzvnOTLBUYSZXD9218-89-13 09:12:000.1 [facility] AagmonlQPFYCWWYRO9944-62-10 09:12:000.9[facility]annHEMATOLOGY 2015-03-22 09:12:000.1[facility] HcqvsnaBDUQGFWQFH9857-74-94 09:12:004.5[facility] RywfjfoAKQRCPNGJR9250-36-21 16:38:005.0[facility] YfgcnugYNPIGCZPSG0581-09-29 16:38:0014.5[facility] YvvoxxhIVKZIAENVM9550-05-44 16:38:0016.2[facility] [place] USXBHBIBUX8337-62-92 16:38:0015.1[facility] VmqihokEMYASMSVDA7332-82-80 16:38:00 49.2[facility] CgmoenqWCDZYIFFCW8630-58-40 16:38:000.34[facility] HermannIMMUNOLOGY 2015-03-21 16:38:006.8[facility] WppjyppNEYTWMSGAM8658-48-62 16:38:003.35[facility] NtwnqraKBWIZMCYLS0429-86-90 16:38:000.99[facility] UaoladzXVIVGCEQPI2079-39-79 16:38:001.10[facility] WttaakqUWINBKMXRI6824-71-67 16:38:001.03[facility] CHEM XXXTH1236-04-18 09:35:95467Hudjtmxd HermannCHEM UHXIV6068-36-89 09:35:009.1 [facility]annCHEM GIHIV6439-05-41 09:35:003.8[facility] HermannCHEM PANEL 2015-03-21 09:35:0021[facility] HermannCHEM UXIIK9342-15-39 09:35:91047Fspjvyxi HermannCHEM NXLVZ6950-60-30 09:35:0011[facility] HermannCHEM PJVLJ7258-00-28 09:35:49281Anutmpsf HermannCHEM PRQNE8997-69-68 09:35:0083[facility] HermannCHEM NFBOO7255-20-31 09:35:000.7[facility] HermannCHEM RBZRG0503-65-39 09:35:0014.8 [facility] HermannCHEM MVVUJ5162-45-35 09:35:001.8[facility]annCHEM PANEL 2015-03-21 09:35:004.1[facility] BkxrbflPHBEEQUMAZ5216-49-00 09:35:000.1[facility] SfnujfkGNIOOHTKVI8243-11-23 09:35:000.7[facility] QyjedgwZPPEVRZQQQ8744-27-07 09:35:001.0[facility] GqjhopyODHHZKMFMG9567-41-25 09:35:001.2[facility] ZNVJXMOCKN0241-61-23 09:35:003.7[facility] GxvqxwrWELLEEVCBV6366-12-94 09:35:005.4 [facility] PcryuqeJMUFHTZTCX8227-11-97 09:35:006.9[facility]annHEMATOLOGY 2015-03-21 09:35:000.1[facility] NssebifAIAQTBIPWJ5669-13-74 09:35:0054.0[facility] OetuqxlCZQNPIQOKG8742-63-02 09:35:0036.9[facility] JxzsvqxBNPYKFDLCX5568-92-40 09:35:0032.9[facility] YgedfcyDQSAJCYEHQ1198-25-21 09:35:0010.8[facility] BUARYZUDVR0267-91-48 09:35:003.91[facility] GvpwmluEPSKHFMSRF6412-10-58 09:35:00 10.0[facility] WqhpabzZJOEJVYYQH5880-76-97 09:35:0032.9[facility]annHEMATOLOGY 2015-03-21 09:35:0017.2[facility] AxraaifXYUOMBSAUI5604-54-55 09:35:00 Test Item Value Reference Range Interpretation Comments MCH (test code = MCH) 27.7 pg 27.0-31.0 [facility] QjsrgbyUVJIYBIVBN9254-69-89 09:35:0084.2[facility]annHEMATOLOGY 2015-03-21 09:35:007.5[facility] YaawhvcDVAIBOXQJI0746-05-11 09:35:30211Bbptbhad XmtbvuqIRSUONYAEY7376-93-01 04:39:036.4[facility] HermannCHEM WPHVZ7375-75-93 08:41:38760Zxbzbnez HermannCHEM NAEGH1857-48-41 08:41:60552Dcmzltmj HermannCHEM PKSOA2117-69-34 08:41:0071[facility]annCHEM DNGBV1187-87-86 08:41:007[facility]annCHEM JKSTM4962-33-14 08:41:000.7[facility]annCHEM MXYEA0273-57-74 08:41:003.9[facility]annCHEM MMDJX0314-46-11 08:41:009.2[facility]annCHEM JGZPV0118-66-48 08:41:31758Rglpatav HermannCHEM PPRCF3827-90-95 08:41:0023 [facility]annCHEM JEXNY5979-72-46 08:41:0013.9[facility]annCHEM PANEL 2015-03-20 08:41:001.9[facility]annCHEM DFUIO6097-04-46 08:41:003.6[facility] FgngbqgBPJOBOASCH6533-45-68 08:41:0033.2[facility] XpzfxtzYXOVGOGEXQ6834-64-28 08:41:63229Xnxmpwxv NehlttcVOSEIOXRCD8531-88-89 08:41:0017.2[facility] [place] SWFJXJKZQP0996-69-91 08:41:004.07[facility] YzkyzfqFOFPILNUCL1929-78-12 08:41:00 9.6[facility] TkqymzeAZADTGKBUY8140-02-83 08:41:0011.2[facility]annHEMATOLOGY 2015-03-20 08:41:0033.6[facility] ZncvgydGMZYYHULLA2187-37-29 08:41:0082.6[facility] BtfgwteLOXXTGSLRF8554-65-45 08:41:00 Test Item Value Reference Range Interpretation Comments MCH (test code = MCH) 27.4 pg 27.0-31.0 [facility] JkthgfvLZJBIYFBQS0454-61-37 08:41:007.7[facility]annHEMATOLOGY 2015-03-20 08:41:0055.3[facility] XcidqihOKKPMYPFNF1576-54-79 08:41:001.9[facility] OhwrytmCNROSLRAZU8081-48-49 08:41:0035.6[facility] CqjtgjnLDDVQHFBDR8886-99-90 08:41:006.2[facility] JjlvndgUXOQTSADWQ7840-03-42 08:41:001.0[facility] [place] TMSTAXWEUL3911-21-53 08:41:005.3[facility] UsgqlzoAIQBEPVAYK1234-02-16 08:41:003.4 [facility] CxpldqlURYGWTWMAB3347-56-12 08:41:000.6[facility]annHEMATOLOGY 2015-03-20 08:41:000.1[facility] RqhhejhFQQSTSVFWH5357-37-92 08:41:000.2[facility] KqxbxzfKCEJTLUCKK5036-87-58 08:41:57086Ojtsiygm SyefrrhAWZURVQHOO0742-52-98 16:56:000.91[facility] NmcuhleBLJYSHEPCX4270-68-11 16:56:00Negative (03/19/15 11:56 AM)[facility] WrqeqceUSOYEDCQNP9889-05-54 16:56:00Non Reactive *NA*(03/19/15 11:56 AM)[facility] ZydrsagEZMOZPVJMW9483-90-85 21:44:00Negative *NA*(03/18/15 4:44 PM) [facility] HermannVIRAL - EVURMROQ1516-50-88 21:44:00<0.90[facility] CARDIAC UQFQVXE0488-92-20 00:57:00<0.02[facility] KodfdnlUQGINMTTFA8298-60-82 18:50:00 Test Item Value Reference Range Interpretation Comments PT (test code = PT) 14.5 s 12.0-14.7 [facility] PezyaijQDSQYKVPCW5610-83-24 18:50:001.12[facility]annHEMATOLOGY 2015-03-17 18:50:00 Test Item Value Reference Range Interpretation Comments PTT (test code = PTT) 31.2 s 22.9-35.8 [facility]annCARDIAC HHEHZBI1712-74-63 17:15:00<0.02[facility]annCHEM WVSCN6017-02-69 17:15:0071.0[facility] HermannBODY HIMAVZ4977-79-87 16:15:0042 [facility]annBODY FCIJUP5303-46-26 16:15:009[facility]annB[facility] FLUIDS 2015-03-17 16:15:001[facility]annBODY XCZENX3008-02-49 16:15:0090[facility]annBODY PBFTBF9562-44-97 16:15:00Clear (03/17/15 11:15 AM)[facility] BODY VCTRSE1984-93-10 16:15:00Colorless (03/17/15 11:15 AM)[facility]annBODY LJHQHR9254-82-79 16:15:00 Test Item Value Reference Range Interpretation Comments Tube Num CSF (test code = Tube Num CSF) 3 1 [facility]annBODY TRVPKS1295-88-88 16:15:00Colorless (03/17/15 11:15 AM) [facility]annB[facility] MXLJTT5988-73-69 16:15:003[facility]annBODY FLUIDS 2015-03-17 16:15:28638Umprflgw HermannBODY AMMPLK9359-68-18 16:15:0071[facility] HvrpktwADIVGDYESZ6276-87-02 16:15:00Non Reactive (03/17/15 11:15 AM)[facility] HermannMOLECULAR EUJINFYRVT7007-85-99 16:15:00Negative 9(03/17/15 11:15 AM) [facility]annMOLECULAR OYNPTGYMQQ0588-35-69 16:15:00Negative 8(03/17/15 11:15 AM)[facility] HermannVIRAL - ZLHZTVMW7843-90-84 16:15:00Negative (03/17/15 11:15 AM)[facility] HermannBACTERIAL - PXYUKWHV1020-30-69 12:34:00Negative (03/17/15 7:34 AM)[facility] XafumnqNZKAORGHJU1600-25-86 04:26:85533Cungdfsn HermannBLOOD BANK MUMCPKJ9155-36-73 02:18:00Negative (03/16/15 9:18 PM)[facility]annCHEM PANEL 2015-03-17 02:18:000.7[facility]annCHEM LGPJM7529-76-83 02:18:0012[facility]annCHEM WOCCQ2086-68-53 02:18:003.9[facility]annCHEM EATTM8777-33-35 02:18:005[facility]annCHEM PCPKY1308-79-68 02:18:94590Ztfxxyjv HermannCHEM KHQYL6167-92-61 02:18:000.2[facility] HermannCHEM NWRZM9574-44-83 02:18:0019 [facility]annCHEM KPQMI5849-51-98 02:18:006.8[facility]annCHEM PANEL 2015-03-17 02:18:002.9[facility] HermannDRUG CCHMEO5360-24-46 02:18:00See Note *NA*(03/16/15 9:18 PM)[facility]annDRUG ZHNXIO7939-72-47 02:18:00Negative *NA*(03/16/15 9:18 PM)[facility] HermannDRUG GNXUDI3393-74-62 02:18:00Negative *NA*(03/16/15 9:18 PM)[facility]annDRUG DRWTIL3673-69-94 02:18:00Negative *NA*(03/16/15 9:18 PM)[facility]annDRUG YXTRWW3212-54-25 02:18:00Negative *NA*(03/16/15 9:18 PM)[facility]annDRUG HHZNHM0307-87-87 02:18:00Negative *NA*(03/16/15 9:18 PM)[facility] HermannDRUG KKBPSV5393-94-40 02:18:00Negative *NA*(03/16/15 9:18 PM)[facility] HermannDRUG JAPCXT4760-79-91 02:18:00Negative *NA*(03/16/15 9:18 PM)[facility]annDRUG YSBFAG6424-68-58 02:18:00Negative *NA*(03/16/15 9:18 PM)[facility] HermannDRUG VSFCRP5392-43-01 02:18:00Negative *NA*(03/16/15 9:18 PM)[facility] YwittyfEZQIELIGHW0120-45-26 02:18:00 Test Item Value Reference Range Interpretation Comments PTT (test code = PTT) 29.7 s 22.9-35.8 [facility] HermannPARATHYROID CXFEKCV7132-02-09 02:18:001.15[facility] [place] PARATHYROID ZBRTNXI4163-97-75 02:18:001.12[facility]annURINE AND STOOL 2015-03-17 02:18:00Negative *NA*(03/16/15 9:18 PM)[facility] STOOL 2015-03-17 02:18:00Negative (03/16/15 9:18 PM)[facility] STOOL 2015-03-17 02:18:00Negative (03/16/15 9:18 PM)[facility] STOOL 2015-03-17 02:18:00Negative (03/16/15 9:18 PM)[facility]UR[facility] STOOL 2015-03-17 02:18:00<1[facility]annUR[facility] AND EESXH3161-36-74 02:18:007.0 [facility]annUR[facility] AND JHBJD9454-40-17 02:18:00Clear (03/16/15 9:18 PM) [facility]UR[facility] AND TSGSI7064-55-92 02:18:001.009[facility]annUR[facility] AND EQSDB6665-73-79 02:18:00Light Yellow *NA*(03/16/15 9:18 PM)[facility] VATRSBUBGZ9501-33-83 13:30:00 Test Item Value Reference Range Interpretation Comments PTT (test code = PTT) 36.1 s 22.9-35.8 [facility] KqbonkqAESLEEHGGR9925-39-86 13:30:00 Test Item Value Reference Range Interpretation Comments PT (test code = PT) 14.6 s 12.0-14.7 [facility] DpvumwuMTSBJYMETF6228-01-34 13:30:001.13[facility] HermannTOXICOLOGY 2014-10-31 13:30:494546Qwrcwhlg ZqmimxaREKHOANBUY7379-24-02 13:30:0025.2[facility] HermannCHEM VNRPH1772-04-93 06:18:003.1[facility] HermannCHEM TWWIK2058-28-59 06:18:001.8[facility] XbqicocSMYKBYGYYZST1154-51-51 06:18:0014.1[facility] [place] CCNDNXINQLVR8918-14-66 06:18:73669Dvxvapga ThljwpyXZAKOMPEMVKG5427-38-76 06:18:42836Mtbrobas ZqyrcrxVRDLTTAFKFYD1434-02-68 06:18:84958Rjmbzkfi [place] DXHEUOUOCPGO3378-34-63 06:18:004.1[facility] TqsimhpEDUJPZRHCFSB0268-95-24 06:18:008.5[facility] KokohdsAVUILVCNIXCS7502-81-11 06:18:0025[facility] SXGCFITGWLRZ4103-78-70 06:18:000.6[facility] AaiiwkdMHNGDPBFGJAL4080-29-98 06:18:0062[facility] JkshjxjQVOUNNHUUSGP7443-62-98 06:18:006[facility] [place] ZQIQWTOAEQ3872-65-06 06:18:000.1[facility] KghopbhVJXBXGEZII5456-97-60 06:18:005.7 [facility] UksntfqLKIWWCLAXY8433-09-49 06:18:005.0[facility] HermannHEMATOLOGY 2014-10-31 06:18:0031.1[facility] XzdwribFLPWELUKOG4836-32-41 06:18:005.7[facility] LotyzruUGAEHOMJAU8547-41-87 06:18:0057.7[facility] ZuhzqlfCOXXMSKDFY3401-73-74 06:18:000.5[facility] TzgailvFWSNTOCIPC7953-24-37 06:18:000.6[facility] ZQFYXWZNVA1974-38-21 06:18:000.5[facility] WsmctnlUQGUOJCKAC9256-85-21 06:18:003.1 [facility] XfdaqegTBXBHGGZPG6762-66-42 06:18:001.08[facility]annHEMATOLOGY 2014-10-31 06:18:00 Test Item Value Reference Range Interpretation Comments PTT (test code = PTT) 33.9 s 22.9-35.8 [facility] JlltykkNCXRMRAZUA2298-50-78 06:18:00 Test Item Value Reference Range Interpretation Comments PT (test code = PT) 14.1 s 12.0-14.7 [facility] NyxjlftFZQRBQAIXS6145-29-47 06:18:0010.0[facility] HermannHEMATOLOGY 2014-10-31 06:18:003.22[facility] CqdirnxINTAGVUTRM0331-13-65 06:18:0028.9[facility] QgricfvWMAIRVBSYF5272-68-28 06:18:009.7[facility] TwzwhiyETJFFXQSFP1642-63-21 06:18:0033.4[facility] YevpjkfULYQWGZPMY7683-41-20 06:18:00 Test Item Value Reference Range Interpretation Comments MCH (test code = MCH) 30.0 pg 27.0-31.0 [facility] VyusjnsXRLGXVDLLF7335-26-43 06:18:0089.8[facility] HermannHEMATOLOGY 2014-10-31 06:18:008.2[facility] HssvbvdMSVPVLWAIF8589-95-12 06:18:50951Qznwzosy UcghlslWXQRFXGDBA2180-82-72 06:18:0016.4[facility] HermannPARATHYROID PROFILE 2014-10-31 06:18:001.08[facility] HermannPARATHYROID ATARYFK1908-83-03 06:18:00 1.05[facility] HermannCARDIAC DURQKFU2303-89-30 07:00:0070[facility] HermannCHEM AEOFV7986-27-91 07:00:003.2[facility] HermannCHEM MVUTE9740-92-12 07:00:001.8 [facility] NeajmynDRSSDOGKKATJ2791-76-75 07:00:0010.6[facility] HermannELECTROLYTES 2014-10-30 07:00:0079[facility] DsdqmfeQNFWEVAHLOAI1560-74-08 07:00:008[facility] ZaqpninKKDEABHUTMDS7548-01-03 07:00:000.6[facility] FjfzyrrENMVRSTUMDLF6537-13-41 07:00:0027[facility] MnnhkvvIZJZNQLIEOLV3920-30-99 07:00:008.1[facility] [place] JJEMUESWPZBO2149-60-60 07:00:003.6[facility] ZxvshfhGZORVLCRTXKA3344-65-96 07:00:14447Picaqruu UiazwsdWGCHTQVZRJAJ2684-46-97 07:00:08677Drajzbdh [place] EZSTOHLEHSGZ1769-18-15 07:00:75829Rdqswute GyzdmcpMXSWUGTXSF4244-59-67 07:00:00 0.4[facility] ShsenixIPECYCAXOQ7256-99-42 07:00:004.9[facility] HermannHEMATOLOGY 2014-10-30 07:00:000.6[facility] QxdfikdXDPNHMFYCT5740-85-03 07:00:0049.4[facility] XalwpahFKJSBKJSPD9805-28-92 07:00:005.8[facility] XmsxfktMHUWRXOKVC5238-46-65 07:00:003.7[facility] HvvcgpbSMYSAHZOHJ9493-47-86 07:00:0041.4[facility] [place] QNKMRTSGRM0504-27-31 07:00:000.4[facility] UwqwerxJHPVPPDSZF2557-97-53 07:00:005.1 [facility] VvfrbklOQASHBDRSG6643-72-81 07:00:00 Test Item Value Reference Range Interpretation Comments MCH (test code = MCH) 29.4 pg 27.0-31.0 [facility] KsfwurmFHEULVPRML2596-08-80 07:00:0027.5[facility] HermannHEMATOLOGY 2014-10-30 07:00:0016.3[facility] UvcsabxVPGOOCLZSV9227-91-26 07:00:85222Yegmqowo QnbhlpnXBSGGHWBAN8445-17-03 07:00:008.4[facility] IarnyigMLPVSAFMSZ0669-06-74 07:00:009.1[facility] ZncqgrvGJMKFBGKHR2054-85-65 07:00:0033.0[facility] [place] AMYOYXGFZN6058-89-29 07:00:003.09[facility] WwoghymZXWVOIPHPX3090-07-75 07:00:00 11.8[facility] QqrpuekDZQGWVXVMT0615-71-27 07:00:0089.0[facility]annHEMATOLOGY 2014-10-30 07:00:00 Test Item Value Reference Range Interpretation Comments PT (test code = PT) 13.5 s 12.0-14.7 [facility] XxucaynFALCWIPGHK0023-35-50 07:00:001.03[facility]annHEMATOLOGY 2014-10-30 07:00:00 Test Item Value Reference Range Interpretation Comments PTT (test code = PTT) 31.6 s 22.9-35.8 [facility] HermannPARATHYROID CHHOYSP0737-28-85 07:00:001.10[facility] PARATHYROID DKHYGFI7121-30-99 07:00:001.11[facility] HermannCARDIAC ENZYMES 2014-10-30 05:00:0049[facility]annCARDIAC SMZQEEY2597-87-00 05:00:00<0.010 [facility]annCARDIAC BUVANVJ3432-61-23 05:00:000.02[facility]annHEMATOLOGY 2014-10-30 05:00:000.2[facility] WvvgyphKCODVJXSTY9101-20-18 05:00:000.3[facility] TgwfhhjETMPQJNWKQ9726-04-86 05:00:000.4[facility] RdwyrvzMVIXIOQKDO0472-88-23 05:00:003.2[facility] YajpifbXHVBGNZSOV3366-00-00 05:00:002.3[facility] [place] IGVJVLIVSJ0332-29-50 05:00:004.8[facility] RtgueftKCWCDYIZFC4484-91-53 05:00:003.1 [facility] TikfalaSAYRISOKTF1269-90-48 05:00:0053.2[facility] HermannHEMATOLOGY 2014-10-30 05:00:0038.5[facility] AkddfivUCJBYVYQEE9557-96-77 05:00:0014.9[facility] AmkmxikMVAQNBSBEZ9645-32-50 05:00:0032.8[facility] DgmmhvfFXJBLINRRU2822-39-86 05:00:00 Test Item Value Reference Range Interpretation Comments MCH (test code = MCH) 30.3 pg 27.0-31.0 [facility] FrjqlvhWUTKPUFERX4563-16-78 05:00:0092.2[facility] HermannHEMATOLOGY 2014-10-30 05:00:0016.3[facility] CciloaeCWBYWGQHUW1393-56-50 05:00:004.9[facility] IkhoylpSQPMDAULVE0938-29-57 05:00:001.61[facility] EorxmjoQVNVTFUIHD4576-37-82 05:00:006.0[facility] BdytgaaIYLKHUXYKL4871-79-21 05:00:008.1[facility] KYPDTVRBKB9606-14-12 05:00:0073[facility] HermannPARATHYROID UUKXSDA3400-32-14 05:00:000.63[facility] HermannPARATHYROID JUVAWGJ4000-55-77 05:00:000.62[facility] HermannCARDIAC YMWVYHQ0505-86-48 23:18:00<0.02[facility] HermannCARDIAC ENZYMES 2014-10-29 23:18:00<0.010[facility]annCARDIAC XJGPCGZ6486-56-42 23:18:0083 [facility]annCARDIAC QSZTYQD6310-36-35 23:18:000.7[facility] HermannCARDIAC WXZNLTH8438-15-77 23:18:000.6[facility] CxbexusLIVYKNEGKY7028-59-48 21:45:444314 [facility] QcsduxaPQHEOQHUIZ0729-62-43 21:45:0023.9[facility] HermannCHEM PANEL 2014-10-29 10:42:000.7[facility] HermannCHEM WABKY0821-80-68 07:00:001.8[facility] HermannCHEM HVADI2148-68-15 07:00:002.8[facility] RedwbynCWJKIIWUPEAI1666-19-71 07:00:0011.0[facility] PhwepkoLXMXUFXFTOWA6640-82-24 07:00:0010[facility] [place] ILWRPDGCQPJC7393-48-75 07:00:0083[facility] JnejtpgHUYAADWNAPGV5804-23-88 07:00:00 145[facility] GfholxnVSCCRUBUPQBV5979-63-06 07:00:000.7[facility] MRBBEAOZBQFA6267-89-60 07:00:60554Qkwwsxmw BdwntbsLWBAQJNBVFYT4744-87-04 07:00:0024[facility] TfqumagQVGQLECMPEYV2700-56-17 07:00:007.9[facility] [place] VXUTBKCHYDQI8038-21-06 07:00:39481Fjnngpff XfcxqtnOJVXSSXCNJXY0799-54-79 07:00:004.0[facility] DmpeuubXHNDGMBYEI6519-63-66 07:00:000.1[facility] VFNJLWIYFZ9175-31-22 13:36:009.7[facility] HweliwfKDPPSUZBQP1676-63-40 11:00:00 Test Item Value Reference Range Interpretation Comments Pat Od Value (test code = Pat Od 0.046 1 Value) [facility] RbwqfjrNBOETKLGXQ7975-50-23 11:00:00 Test Item Value Reference Range Interpretation Comments Pos CO Value (test code = Pos CO 0.392 1 Value) [facility] RghrmwiTJTOUIECAG7801-33-31 11:00:00Negative (10/28/14 6:00 AM)[facility] HermannCHEM OSJWZ4925-97-14 15:45:001.0[facility] CsawrsxPNKYSMTYRU3383-68-27 11:00:0024.4[facility] HermannTHYROID SLBRK7670-47-93 11:00:000.120[facility] HermannTHYROID ZHKRY9377-21-79 11:00:000.96[facility] HermannCHEM PKNKO1418-41-86 07:00:001.6[facility] IzughmoQSMBEUFHJK9087-51-90 07:00:00Normal (10/27/14 2:00 AM) [facility] HvvkcblMAGBXZQADM3795-14-25 07:00:00Normal (10/27/14 2:00 AM)[facility] MfmessvXTAYOMCHBK9399-32-22 01:49:0028[facility] QbolounGPBEQWKPLE7573-97-40 23:06:00<0.1[facility] JyyauiiITBSABLAEV0360-86-30 23:00:00<0.1[facility] HermannBLOOD BANK YZNAGFI2829-36-16 21:24:00Negative (10/26/14 4:24 PM)[facility] HermannCHEM VIXYW5003-73-23 21:14:0070[facility] HermannCHEM SOFZP3547-41-13 21:14:000.15[facility] AanvqwxFGKKIRPMPL4895-49-29 21:14:40018Xowslxzo [place] LAFQQNZZHI2164-05-35 21:14:000.21[facility] OhclxxtEODRFAETHZ0036-86-90 21:14:00 29.2[facility] HermannCARDIAC TVQTSRR4901-64-64 18:30:00<0.010[facility] [place] CARDIAC IMUNJEK6736-44-86 18:30:000.02[facility] HermannCHEM ANOTO5495-96-51 18:30:000.14[facility] BfsrjsnWDTCFGRRXD1705-99-65 18:30:00Normal (10/26/14 1:30 PM)[facility] ThyklbwFUSRKOUADF4026-99-55 18:30:00Normal (10/26/14 1:30 PM)[facility] PlqqbwrBHTQAWJLGM4958-46-69 18:30:000.0[facility] DuptegjRZXERQYQLT6632-59-95 18:30:001.0[facility] HermannCHEM RZVLQ3458-27-91 11:15:000.1[facility] HermannCHEM WVWNL3616-65-80 11:15:000.2[facility] HermannCHEM IRTUY9052-48-43 11:15:000.1 [facility] HermannCHEM LGPAV6873-15-43 11:15:0011[facility] HermannCHEM PANEL 2014-10-26 11:15:01876Bbbtjnzx HermannCHEM WEHJZ0628-45-49 11:15:002.9[facility] HermannCHEM WAUCK3740-11-04 11:15:003.2[facility] HermannCHEM WAFNZ0675-05-16 11:15:006.1[facility] HermannCHEM GKLLA4938-39-15 11:15:0023[facility] HermannCHEM TXXQR4969-36-87 11:15:000.9[facility] NilndrzOWXGQMTCXK6804-05-44 11:15:000.1 [facility] HermannCHEM UTMXV9385-26-99 09:01:000.05[facility] HermannDRUG SCREEN 2014-10-26 06:40:00Negative (10/26/14 1:40 [...] HermannURINE AND STOOL 2014-10-26 06:40:005[facility]annURINE AND OYWYL7624-45-55 06:40:0028[facility]annURINE AND BYFEA7006-76-41 06:40:00Negative (10/26/14 1:40 AM)[facility]UR[facility] AND DYPLB0845-61-17 06:40:00Negative (10/26/14 1:40 AM)[facility]annUR[facility] AND LKDES0392-40-45 06:40:00Negative (10/26/14 1:40 AM)[facility]annURINE AND EMGYF5154-47-72 06:40:00<=1.0[facility]annURINE AND STOOL 2014-10-26 06:40:00Negative (10/26/14 1:40 AM)[facility]annUR[facility] AND STOOL 2014-10-26 06:40:001.009[facility]annURINE AND LYWED5274-39-79 06:40:00Slight *ABN*(10/26/14 1:40 AM)[facility]annUR[facility] AND CFGSB1470-16-11 06:40:00Yellow (10/26/14 1:40 AM)[facility]annUR[facility] AND YZWAD5594-78-12 06:40:005.0[facility] UyiayhbYZCJGPBWTP2042-05-75 02:45:00 Test Item Value Reference Range Interpretation Comments Angle (test code = Angle) 76.5 degrees 53.0-72.0 [facility] XpdwjjoPGPQNSQNNB6110-28-61 02:45:00 Test Item Value Reference Range Interpretation Comments Max Amp (test code = Max Amp) 74.1 mm 50.0-70.0 [facility] IrhcbqaWHJDOZLYSS4537-62-61 02:45:0014.3[facility] HermannHEMATOLOGY 2014-10-26 02:45:00See Note 23(10/25/14 9:45 PM)[facility]OLOGY 2014-10-26 02:45:003.4[facility] IyrqvmhTYSLQGHHGJ1579-97-00 02:45:00 Test Item Value Reference Range Interpretation Comments K-time (test code = K-time) 1.0 min 1.0-3.0 [facility] AqhjvgcBKOKKIVDKF2467-04-71 02:45:00 Test Item Value Reference Range Interpretation Comments R-time (test code = R-time) 5.1 min 5.0-10.0 [facility] FwsekrzKNXJPLKRDS0273-40-61 02:45:000.9[facility] HjyeprpNNEXHA8759-61-94 02:45:0035[facility] DqedswtRDVLDX1259-26-73 02:45:0060[facility] HermannLIPIDS 2014-10-26 02:45:002.76[facility] LevyknyRAUEFI2714-79-35 02:45:0054[facility] LfacqunRPBCRN1013-37-71 02:45:39373Acncipjx BnulfsoJFFUCY1337-35-83 02:45:80276 [facility]annSPECIAL SDWPLFWKQ8937-29-33 02:45:005.7[facility] HermannCHEM VHDQT1426-48-41 09:44:003.7[facility] HermannCHEM MFSUV5212-53-69 09:44:001.7 [facility] ViueypfOWUQSWZAYIKJ5865-81-84 09:44:0013.6[facility] HermannELECTROLYTES 2013-11-14 09:44:0087[facility] TkjkphyYFVQQNRFXABT5725-70-52 09:44:0023[facility] YzzmfpnRRPDIBUCDJKU1790-74-03 09:44:0070[facility] TubxcmvAUBQEPZFUXGP2870-24-27 09:44:000.8[facility] DjspbraLLHRPDMPLPZS4303-82-17 09:44:21791Nizjvyrm Cabrera LJMJBHTBESFS1645-81-80 09:44:004.6[facility] DozqysfYTKUNVGMDZRI8264-28-29 09:44:72655Czwhfzrg PrseifgNUNQZYTDQFYL3731-71-68 09:44:0024[facility] [place] ESWRFCDSDBCD6469-00-63 09:44:008.8[facility] OdyvskwETAUQKOFWH5337-75-15 09:44:00 1.97[facility] RmekhbbBRNHZYACOF3951-16-76 09:44:00 Test Item Value Reference Range Interpretation Comments PT (test code = PT) 22.1 s 12.0-14.7 [facility] FfkpvldJLVSXF1028-21-73 09:44:0093[facility] WdrihjmTRKDDU0201-95-02 09:44:0066[facility] JbuxhovJKLHUD9993-72-14 09:44:31426Ovopwhdb HermannLIPIDS 2013-11-14 09:44:59827Ubjlkeov StiakaiTHIDFG6785-61-82 09:44:0038[facility] NvpscizXTRVUJ5191-32-90 09:44:005.18[facility] HermannDRUG FISHCK7489-51-16 01:09:21Positive *ABN*(11/13/2013 20:09:21 [place])[facility]annDR[facility] ZAHWGO9877-95-90 01:09:21See Note 5(11/13/2013 20:09:21 [place])[facility]DR[facility] ZKTCBT9187-12-04 01:09:21Negative *NA*(11/13/2013 20:09:21 [place])[facility]annDR[facility] ZNXNWF8075-47-01 01:09:21Positive *ABN*(11/13/2013 20:09:21 [place])[facility]annDR[facility] KCPATA4805-92-17 01:09:21Positive *ABN*(11/13/2013 20:09:21 [place])[facility]annDR[facility] VOFDWD0144-73-42 01:09:21Negative *NA*(11/13/2013 20:09:21 [place]) [facility]annDR[facility] VEJMZF3383-52-80 01:09:21Negative *NA*(11/13/2013 20:09:21 [place])[facility]annDRUG MQLPXE3499-09-36 01:09:21Negative *NA*(11/13/2013 20:09:21 [place])[facility]annDR[facility] RXGIIQ0862-82-26 01:09:21Negative *NA*(11/13/2013 20:09:21 [place])[facility]annDRUG ZDYALE3063-35-86 01:09:21Negative *NA*(11/13/2013 20:09:21 [place]) [facility]UR[facility] LMRSE9604-38-23 01:09:002[facility]annUR[facility] AND VKSTI0332-07-34 01:09:00Slight *ABN*(11/13/2013 20:09:00 [place]) [facility] KHMYB6388-87-47 01:09:00Yellow *NA*(11/13/2013 20:09:00 [place])[facility] BLSSR4706-85-32 01:09:006.5 [facility] PFSZM4368-88-58 01:09:001.024[facility]UR[facility] AND GHGXP6922-00-33 01:09:00Negative (11/13/2013 20:09:00 [place])[facility] AND JLAMS5403-17-22 01:09:00Negative *NA*(11/13/2013 20:09:00 [place])[facility] UYPSJ3508-06-60 01:09:00Small *ABN*(11/13/2013 20:09:00 [place])[facility] STOOL 2013-11-14 01:09:00Negative (11/13/2013 20:09:00 [place])[facility] LVILN7597-23-38 01:09:003[facility]annUR[facility] AND STOOL 2013-11-14 01:09:001[facility]annURINE LVAH5111-46-55 01:09:00Negative (11/13/2013 20:09:00 [place])[facility]annCARDIAC ABYHFYR1725-48-01 19:43:00<0.010[facility] HermannCARDIAC CQLCWKQ4955-34-05 19:43:00<0.02 [facility]annCARDIAC MOTARMB1011-81-80 19:43:69882Soyzbqvt HermannCARDIAC VGWLKXC4975-35-83 19:43:000.5[facility] HermannCARDIAC QFMXDMG9116-21-28 19:43:00 0.5[facility] HermannCHEM EAVNV1182-23-53 19:43:000.1[facility] HermannCHEM PANEL 2013-11-13 19:43:000.2[facility] HermannCHEM LTHYG6721-14-13 19:43:000.1[facility] HermannCHEM GELJI4715-18-50 19:43:0024[facility] HermannCHEM TIQIE2343-63-55 19:43:000.9[facility] HermannCHEM HLQXB4122-07-52 19:43:0040[facility] HermannCHEM NDLGX6330-49-09 19:43:006.4[facility] HermannCHEM MUWAR2966-95-65 19:43:003.0 [facility] HermannCHEM OTQBZ3897-85-85 19:43:003.4[facility] HermannCHEM PANEL 2013-11-13 19:43:46770Phybyoew HermannSPECIAL GOLLCGQSE0553-17-36 19:43:005.0 [facility] HermannCARDIAC FBKTZHU2537-17-20 09:29:000.6[facility] HermannCARDIAC FVBLAUN9630-86-42 09:29:00<0.02[facility] HermannCARDIAC HFPODGC0955-59-25 09:29:000.6[facility] HermannCARDIAC ORRHSNS6619-77-11 09:29:31832Rapelfym Cabrera CHEM WNKFP4433-05-98 09:29:0075[facility] HermannCHEM LGJHW7601-56-19 09:29:0013.1 [facility]annCHEM UVHJT4804-56-88 09:29:0026[facility] HermannCHEM PANEL 2013-11-13 09:29:22082Rlhmobdn HermannCHEM FOVKK2348-29-01 09:29:008.6[facility] HermannCHEM RBZDS2918-38-35 09:29:000.9[facility] HermannCHEM PHNNF7814-55-87 09:29:0012[facility] HermannCHEM TOCHG7695-26-75 09:29:004.1[facility] HermannCHEM OGKTM0855-62-37 09:29:60811Uwmfdpay HermannCHEM HACLI9693-74-31 09:29:0081 [facility] UxhmdoiWVEAXDTCHL7043-84-04 09:29:004.1[facility] HermannHEMATOLOGY 2013-11-13 09:29:001.4[facility] ZpvfoupWRICKIJCMD5965-50-64 09:29:000.0[facility] ArywehnOGDGMUDARD8223-92-76 09:29:004.7[facility] EujyyruEWSDUBOAYE7566-67-18 09:29:006.0[facility] InpaugzZQNRDHMXTO4520-37-32 09:29:000.5[facility] [place] VYUYHNLQYF5294-55-63 09:29:0041.0[facility] RdkalbmBBLYUGLUIL1727-07-18 09:29:00 53.5[facility] TztnabpZUSIKRLXYS9576-79-56 09:29:000.2[facility] HermannHEMATOLOGY 2013-11-13 09:29:000.0[facility] GcukeplPOSZPPJRHG0789-31-37 09:29:00 Test Item Value Reference Range Interpretation Comments PT (test code = PT) 24.2 s 12.0-14.7 [facility] HtwvuypDUQSUHPWWQ5356-19-03 09:29:002.22[facility] HermannHEMATOLOGY 2013-11-13 09:29:00 Test Item Value Reference Range Interpretation Comments PTT (test code = PTT) 39.1 s 22.9-35.8 [facility] CpucjdhLZPALOCTFD7248-19-28 09:29:50331Btrafses HermannHEMATOLOGY 2013-11-13 09:29:0017.1[facility] DqhqkpsQYIYAHWHQS8972-63-14 09:29:007.0[facility] YbahavoFPKMHNKIIP1622-44-15 09:29:0033.7[facility] IvoxjxuPVEWITOXHU5000-67-10 09:29:00 Test Item Value Reference Range Interpretation Comments MCH (test code = MCH) 28.2 pg 27.0-31.0 [facility] [facility] OaadarsUYZHLLWEMG7525-90-79 09:29:004.35[facility]annHEMATOLOGY 2013-11-13 09:29:0011.4[facility] EsqktysAERXDBLBYJ0924-19-20 09:29:0083.7[facility] ZmkwvxpDXKJOXJTWX5894-52-26 09:29:0012.3[facility] MadqhvuAXEVCBGCKO5205-93-67 09:29:0036.4[facility] JfliiqvYRLUJKAJT9896-39-06 07:35:0015.8[facility] NMOTBPTNO9116-91-30 07:35:83456Hwcsfrli HkonlvyVQVGFEGRZ4672-42-37 07:35:0023 [facility] GekhidkUOXWCDIFC7723-36-94 07:35:75068Svddfred HermannCHEMISTRY 2013-05-12 07:35:000.3[facility] DporqrzWAIKFWTUW3494-71-03 07:35:007.7[facility] TwcifscNNZUGTTQY4327-89-22 07:35:005[facility] WswxifbMBDSKELRE0013-11-44 07:35:00 72[facility] XsqwovuRZBBTGWDO4640-50-48 07:35:26284Ngrzknan HermannCHEMISTRY 2013-05-12 07:35:003.8[facility] NuldtrpUWLXZRPHEO2613-94-40 07:35:007.8[facility] PctizzsWSOTZBCWYK0554-22-09 07:35:003.5[facility] YopiyjnIBJJNIUNNN2832-55-90 07:35:000.9[facility] QxvrpzdBCOYGJTYCN2713-37-33 07:35:000.3[facility] LCOQRICXMD0969-96-18 07:35:000.1[facility] GkvdkagOPDWMUGMZQ3726-96-18 07:35:007.4 [facility] NgokpqbGLUZESDBSO1353-40-04 07:35:000.7[facility]annHEMATOLOGY 2013-05-12 07:35:0027.8[facility] MjkuwtdJDFYDPLEAM5948-75-10 07:35:002.7[facility] EkpjpxmJUKFQSELBA4574-74-56 07:35:0061.4[facility] HgxddzuMTYYEVPZMT7265-50-09 07:35:0088.5[facility] RfbsbwzLDQMPTWDRM9994-06-95 07:35:0015.2[facility] SGDQAPIVKC8139-21-82 07:35:0032.5[facility] YnseohpRQAVLSBVKB6316-72-28 07:35:00 252[facility] RfnskexNLHSNKBTXU3605-31-45 07:35:007.7[facility]annHEMATOLOGY 2013-05-12 07:35:0012.8[facility] PwjgddeMZRDDQBUGP2166-20-19 07:35:003.82[facility] RfppyctFKQFENAJQA0820-78-20 07:35:0011.0[facility] KlutppzEEEUQRGIWJ7961-44-91 07:35:0033.8[facility] RyypvskDWAKNXVDGS0508-05-20 07:35:00 Test Item Value Reference Range Interpretation Comments MCH (test code = MCH) 28.8 pg 27.0-31.0 N [facility]annBEDSIDE GLUCOSE TAEITMJ9609-76-82 11:52:0089[facility] LVBYPPYAB7506-18-45 07:00:00Negative (05/11/2013 02:00:00)[facility] CEBHUUPSU4731-80-25 07:00:00Negative (05/11/2013 02:00:00)[facility] OTMAOUWMN4909-01-28 07:00:00Negative (05/11/2013 02:00:00)[facility] XSCKNIOEF9244-62-95 07:00:00Negative (05/11/2013 02:00:00)[facility] DNTMXFTRA6953-11-79 07:00:00Positive *ABN*(05/11/2013 02:00:00)[facility] DPCAJLMYE8055-43-17 07:00:00See Note 12(05/11/2013 02:00:00)[facility] YCNEDDBXL9992-80-00 07:00:00Negative (05/11/2013 02:00:00)[facility] UEAXIYNUA2460-47-15 07:00:00Negative (05/11/2013 02:00:00)[facility] VNUGYUUBZ8313-45-22 07:00:00Negative (05/11/2013 02:00:00)[facility] RPEQSBESK3312-68-24 07:00:00Negative (05/11/2013 02:00:00)[facility] TUKKLOJNQ5394-45-69 07:00:001.09[facility] NhqoyhcIEZHYLOAT4632-84-83 07:00:001.07 [facility] LvcwlwbHPLLFCRWL5241-25-64 07:00:002.0[facility] HermannCHEMISTRY 2013-05-11 07:00:002.6[facility] OmfvojrKHRYKUSYI3281-20-56 07:00:93825Qyrymgrz NxvapvjMQHRQCNQG0254-73-21 07:00:008.0[facility] UtgxejbVWRBRIMPS4497-11-01 07:00:0017.7[facility] AweyzuzCGXVCGUTZ8472-77-23 07:00:007[facility] FZBGTYRCD3361-66-91 07:00:0059[facility] NjhrratHTIAAGWVM7026-17-51 07:00:000.6 [facility] HhckceoUDFOHYQBH6486-99-02 07:00:57202Fkceyoxm HermannCHEMISTRY 2013-05-11 07:00:003.7[facility] EfxamzsVLMSVBCLD4323-78-42 07:00:48941Dtgznimt YkbxnkgNSUGZPKNF2314-89-77 07:00:0021[facility] RtosdwhTBJLILPNG6368-53-43 07:00:00See Note 13(05/11/2013 02:00:00)[facility] CpbpeelRNOUHRXAYN9834-46-86 07:00:0017.2[facility] WwtucmyEHGKSBZONN7243-69-66 07:00:81879Gzfkjqir [facility] FSCXTLLFRC1752-82-74 07:00:008.7[facility] UhnpcxoIIFWTZNUYD7438-58-48 07:00:00 88.4[facility] VghnddtVCXLAKNQAJ9924-70-03 07:00:00 Test Item Value Reference Range Interpretation Comments MCH (test code = MCH) 29.4 pg 27.0-31.0 N [facility] SmlqirxUDXMQRPPKY7644-84-33 07:00:0015.3[facility]annHEMATOLOGY 2013-05-11 07:00:0033.2[facility] WgpdjwdFPVYZYRSPX1890-55-80 07:00:003.75[facility] UkwxpowSTQMVLLZMC2683-18-69 07:00:0011.0[facility] BkisaeyTIGBDWSCGO2022-23-28 07:00:0033.1[facility] GuzrjamNRDHGGFRYK5503-22-34 07:00:004.4[facility] STAMAHYEGE5205-63-51 07:00:0077.7[facility] DgjyidzYCRSENAXUI5512-59-92 07:00:00 0.8[facility] WshbiaaZHZBDDEIRL9395-34-28 07:00:0013.4[facility]annHEMATOLOGY 2013-05-11 07:00:002.7[facility] FqicrhzUVOHXQSHUJ0495-78-89 07:00:000.8[facility] VgndygxZQJNPCDPMB1552-78-17 07:00:001.5[facility] VvpeahuNLLMEYVNLX8003-28-23 07:00:0015.6[facility] TkeqzoeFCARMRFGIU6963-77-94 07:00:000.1[facility] LLWIGBBELW4720-05-46 07:00:000.3[facility] HermannBEDSIDE GLUCOSE TESTING 2013-05-11 04:53:0079[facility] DamzqdvLAXPSQLCHO2352-11-58 23:12:82414Vsjthqrq XqgaxnvHDCPBVOYWP5797-69-22 23:12:00Positive (05/10/2013 18:12:00)[facility] BhmqehiVPIWNCPQZJ8688-99-27 23:12:001.06[facility] TzozhxsMOCIJIAAOX8533-68-07 23:12:0070[facility] NpmjzijCLYAHYPKBH4299-10-24 23:12:00>100 mm/hr *ABN*(05/10/2013 18:12:00)[facility] HpnfxanRSFFJCQUEK7295-30-87 23:12:0035 [facility] FmrnhyvFRXBTAMXIU2533-45-45 23:12:0068[facility] HermannIMMUNOLOGY 2013-05-10 23:12:001[facility] UzzplhtCKIABLDNKO8466-72-20 23:12:001[facility] TztorykDZURROCERF1160-04-22 23:12:005.2[facility] TdoswdeFKORIEUSZJ8964-28-64 23:12:0040[facility] LtpvyaxNSLKGZSCNT5405-49-82 23:12:72039Asdgnuck [place] YVVOKGMDOR4596-09-57 23:12:00Negative *NA*(05/10/2013 18:12:00)[facility] IBSDHIYITK6228-25-55 23:12:00>190.0[facility] HermannBACTERIAL - SEROLOGY 2013-05-10 21:41:00Negative (05/10/2013 16:41:00)[facility]annMICRO MISC - UGIBNJEO0965-83-62 21:41:00Negative 1(05/10/2013 16:41:00)[facility] BEDSIDE GLUCOSE TBXDRTR6828-20-73 16:57:0096[facility] ZukrpboPWHQIWAIMO9289-82-44 14:50:398[facility] DkselcpNTPZKCJKFW7742-06-57 14:50:39Few /LPF *NA*(05/10/2013 09:50:39)[facility] DmqrxgjKEFJFVDXIE3506-35-03 14:50:39<1[facility] LVYYLIQIIC7963-02-54 14:50:39Few /LPF *NA*(05/10/2013 09:50:39)[facility] UJMUTOFDVI8458-68-03 14:50:39<1[facility] EotrwbnUKWENHGVBW6476-77-87 14:50:39 Negative (05/10/2013 09:50:39)[facility] JhkwebpGCCKMOOHRB1445-05-19 14:50:39 Negative (05/10/2013 09:50:39)[facility] TufzpphHSTNXXTAIN2031-91-05 14:50:39 Negative (05/10/2013 09:50:39)[facility] MvupngtHTHFJXJDFC8788-22-27 14:50:39 Negative mg/dL *NA*(05/10/2013 09:50:39)[facility] VrigygwOHIQEFTEQH7818-05-37 14:50:39Negative *NA*(05/10/2013 09:50:39)[facility] BwrhechNXIBRTTAXB1713-98-75 14:50:391.006[facility] OxtjcvkJWVUCFMXAL8608-85-75 14:50:39Clear (05/10/2013 09:50:39)[facility] XhliqzeWVOGPDRQQP0575-53-51 14:50:39Light Yellow *NA*(05/10/2013 09:50:39)[facility] WwklxaiVLAQARXGSZ4068-11-01 14:50:39Negative mg/dL (05/10/2013 09:50:39)[facility] CfukjovCHFOAUDCJY0591-18-73 14:50:397.5 [facility] ImjsyszDACYVDXYU0776-78-83 07:52:0087[facility] HermannCHEMISTRY 2013-05-10 07:52:88694Nuzsxwlf MzbanxkBYSVFLCOX4304-32-04 07:52:0014.6[facility] RkjgyhlLRJOGEUCK6883-17-59 07:52:007.8[facility] QckapsfCDHIFRICP7338-10-77 07:52:24114Dcywlnxm JfebbenVJLJQKGUM7310-95-43 07:52:003.6[facility] NLMTODILI1766-40-06 07:52:0024[facility] OsjiqulISFEZJNMY6169-13-13 07:52:000.8 [facility] XsxutjiBCIIRNVYH0249-03-34 07:52:007[facility] IwhcmrvVLWYLWADP7430-84-38 07:52:0051[facility] UvxnadgHRCYNNELH1434-79-72 07:52:001.6[facility] LMZQGYKFM4058-95-47 07:52:002.2[facility] QvgyslkGRBMHFNSUA9189-06-53 07:52:00 Test Item Value Reference Range Interpretation Comments MCH (test code = MCH) 29.1 pg 27.0-31.0 N [facility] WeodygyDQVCETCYKT1035-63-50 07:52:0033.8[facility]annHEMATOLOGY 2013-05-10 07:52:0089.2[facility] IpttkmhFRCTDLAUAI9504-25-06 07:52:0011.0[facility] HnxfiwsYCDGUINLVQ3516-36-77 07:52:008.5[facility] KkhfbhbOTNWXWZHZG6814-50-05 07:52:63172Kcetmtkt BzqawgcFTKCHKZOWZ4284-06-36 07:52:0015.1[facility] ELWHDNDNQK6353-45-93 07:52:0032.6[facility] VyxajgbLFSNEXGHRF6397-08-48 07:52:00 3.79[facility] OafgizaWXQESJFYXC7189-88-77 07:52:0022.1[facility]annHEMATOLOGY 2013-05-10 07:52:000.1[facility] MipgzvtOQZQRMLGUU3748-54-10 07:52:000.6[facility] LhpcassTLUVWYWCQI9696-71-33 07:52:000.2[facility] EiaiyfwNFHFVWANME9708-44-52 07:52:0083.0[facility] EhuvmjzPPJQCBCVFJ6870-17-31 07:52:002.9[facility] YXBLSOXNBB5763-01-70 07:52:0018.3[facility] XafwpiaGIBGNNROFT8395-70-46 07:52:00 0.4[facility] AyvnmdyBYCKPCVGQT9636-59-53 07:52:001.0[facility]annHEMATOLOGY 2013-05-10 07:52:0012.9[facility] IdwtpwhFVTDVRTTEU0576-61-79 07:52:002.7[facility] FvguhkcZKLHVAZNVQ4764-14-19 19:56:0055[facility] HynoyukNYXJUKFWUH0252-71-39 19:56:99255Ajzqscko QvvmaxbNAIRZAIQWJ6750-38-57 19:56:73801Vnzenvtw [facility] OQSCNJWGUK8340-35-80 19:56:00Negative (05/09/2013 14:56:00)[facility] TRFKFFAMES0257-23-78 19:56:00Negative (05/09/2013 14:56:00)[facility] BUHOKBFSQK3658-06-64 19:56:00Negative (05/09/2013 14:56:00)[facility] NNTLKBOVUL4703-29-58 19:56:00>190.0 mg/L 15(05/09/2013 14:56:00)[facility] CyvlpcrWDYVSBGXSU6855-84-34 19:56:00Negative (05/09/2013 14:56:00)[facility] ZyifhrvOTLLUSXDES3874-72-60 19:56:0034[facility] FvmesdkVOECSEVCM2323-44-37 16:10:242.3[facility] QzxsblkATCTEKMRV6285-03-82 16:10:241.4[facility] MVGDWYZWF2777-57-66 16:10:191.8[facility] WatpjjlRFEGRXEGJ5611-43-50 10:34:0071 [facility] QkyfzriSWYETEBNK8776-32-94 10:34:0036[facility] HermannCHEMISTRY 2013-05-09 10:34:50140Crjpnsgh YvguhoqSOHGDYPNJ4068-09-39 10:34:28566Tzuoszqm SjnqzvfLEQZCMOZV1706-36-94 10:34:003.67[facility] UxsarkqHUCYVIOPF5330-51-10 10:34:004.9[facility] CjduizkYJCFCARYQ0445-78-69 00:11:00Negative *NA*(05/08/2013 19:11:00)[facility] IefaontFTKJGSUSZ5962-95-05 00:11:00See Note 11(05/08/2013 19:11:00)[facility] IwscagsFVSJDRXOA6975-12-93 00:11:00Positive *ABN*(05/08/2013 19:11:00)[facility] JhyzxjfQMHMLDDPR3025-38-32 00:11:00Negative *NA*(05/08/2013 19:11:00)[facility] IitvqduFRNYOBBNL4514-27-12 00:11:00Negative *NA*(05/08/2013 19:11:00)[facility] VbfikdbTGRMTCNLW5732-79-45 00:11:00Negative *NA*(05/08/2013 19:11:00)[facility] TyiidgvGGWIXEBIE3246-86-33 00:11:00Negative *NA*(05/08/2013 19:11:00)[facility] FzemrtbRSZXWAGEL0904-05-77 00:11:00Negative *NA*(05/08/2013 19:11:00)[facility] KnfoovhLYEJQERAO2237-95-72 00:11:0054[facility] HermannCHEMISTRY 2013-05-09 00:11:005.8[facility] ZgmpyvfZILOSGPOT7033-70-20 00:11:000.2[facility] QeqjbtlJBZOIKJWI8108-18-73 00:11:002.8[facility] QigktfsELUEOLRKA4117-23-95 00:11:0095[facility] RixyqzuMDWNWHUVH3263-46-83 00:11:0029[facility] WGEHMMOQO7198-67-37 00:11:000.9[facility] InjpjpmRBFWRAEGI0976-85-50 00:11:0015 [facility] BzcrdruEBXVHHXZQ3366-09-64 00:11:003.0[facility] HermannURINALYSIS 2013-05-09 00:11:00Slight *ABN*(05/08/2013 19:11:00)[facility] HermannURINALYSIS 2013-05-09 00:11:001.013[facility] AzjpcglRNJMZYMEUZ7382-21-27 00:11:00Small *ABN*(05/08/2013 19:11:00)[facility] AuasdkmOLOTJEICKF6625-76-55 00:11:00Negative (05/08/2013 19:11:00)[facility] RjyarcfEDQSSOPUYW5726-23-55 00:11:00Negative (05/08/2013 19:11:00)[facility] ZdcduqcMVEDVPFAOT7984-38-34 00:11:005.0[facility] OahavejJDTRWIHTEY1412-78-96 00:11:0030 mg/dL *ABN*(05/08/2013 19:11:00)[facility] LogbcveXRGPZNKIWY6392-01-77 00:11:00Negative mg/dL *NA*(05/08/2013 19:11:00) [facility]pd[facility]qDPFXFHVEVV5975-95-09 00:11:00Yellow *NA*(05/08/2013 19:11:00) [facility] HtnuhqvHGGWZWNFIK0359-84-65 00:11:00Few /LPF *NA*(05/08/2013 19:11:00) [facility] QoyqqvsAYXWBYHUOH9341-82-95 00:11:001[facility]annURINALYSIS 2013-05-09 00:11:00Negative mg/dL *NA*(05/08/2013 19:11:00)[facility] CLNGMUCDBZ9554-10-18 00:11:00Negative *NA*(05/08/2013 19:11:00)[facility] KSMGCBGJYB9333-83-56 00:11:00Few /LPF *NA*(05/08/2013 19:11:00)[facility] IKSHRTMTFN9891-83-34 00:11:00Occasional /HPF *NA*(05/08/2013 19:11:00)[facility] HWVHYET9997-98-37 12:28:0087[facility]annCHEMISTRY 2012-07-21 08:53:10963Gkoilmwq EfutpzcKANUSVFMN1358-35-48 08:53:0024[facility] SfbzojnXJOMJHYGE9089-00-26 08:53:59289Aubyozrz WxzmbbzQJCRWUOCF6972-09-66 08:53:37910Vmpmclya BzpjdqaNTUZAGZQN2734-98-11 08:53:008.08[facility] [place] QVASJTCNZ4076-56-01 08:53:003.2[facility] KipkqlbUUIXPEHZU4750-35-78 08:53:001.9 [facility] ZksrgxyQAEPSNPJH8055-21-28 08:53:0014.1[facility] HermannCHEMISTRY 2012-07-21 08:53:009[facility] IpoqwnxXOVRZHSYX0367-68-51 08:53:0077[facility] AxqttauZMLPMALNG8237-00-23 08:53:50565Ufvfuoew DxhhbkqSTMJFDFCV5087-49-02 08:53:84376Gknwdicp DalufwyXPQGVJTBN4311-44-08 08:53:54285Rwjjrbdz [facility] SXFWFLZBT3248-40-94 08:53:004.1[facility] GmgeegzELEHGLLAO7235-89-80 08:53:000.7 [facility] GekcmuzCTTIDDDMR9968-30-70 08:53:0027[facility] HermannCHEMISTRY 2012-07-21 08:53:008.0[facility] LheqzimHVAVVAMFD1569-73-53 08:53:005.8[facility] KhipwcsWKAQLNJUPQ0335-46-56 08:53:006.8[facility] DnrunumTPMIOWQUMY9627-62-13 08:53:99714Qvidwnaj XbkfzioQJNEBJAMWK4971-98-17 08:53:0088.7[facility] UNBKFSFKOY3553-38-93 08:53:00 Test Item Value Reference Range Interpretation Comments MCH (test code = MCH) 29.4 pg 27.0-31.0 N [facility] JbtxukwDGXLSUZFYG6352-85-11 08:53:0033.1[facility] HermannHEMATOLOGY 2012-07-21 08:53:0015.0[facility] MvfyuvdKIMAIISNRS0600-05-65 08:53:0038.4[facility] XeqrddjXAVCDMQAEI3671-86-71 08:53:004.34[facility] XnnuzxzCGAEBCQXDO5480-26-85 08:53:0012.7[facility] OsrzpypXHXUMBGFJC8354-11-50 08:53:0011.7[facility] [place] XVISEPOHVI2968-96-01 08:53:000.5[facility] NldqqyxUJXLGHTLAG5995-72-25 08:53:005.9 [facility] TgdmrtiUYENCWZILF2813-59-21 08:53:006.0[facility] HermannHEMATOLOGY 2012-07-21 08:53:0041.5[facility] WeufjtuGQVWZUELYP6673-74-56 08:53:001.9[facility] VzldatpWUBRCBOBZU3758-83-57 08:53:0050.1[facility] RzjcnpqLUYUDPLNHR7442-32-21 08:53:000.7[facility] PamijawDYTZTPIHPX3159-23-90 08:53:004.8[facility] [place] MEZQFVHRTL9506-46-06 08:53:000.2[facility] JiqwqrvFQXMPFDGLZ4723-15-25 08:53:000.1 [facility]annBEDSIDE GLUCOSE EDPBUKY4612-67-66 02:50:01917Feqikrss [facility] VWKKZEMJRR7126-36-98 01:10:00Yellow *NA*(07/20/2012 19:10:00)[facility] IMLFXDHTNC3433-17-61 01:10:0020 mg/dL *ABN*(07/20/2012 19:10:00)[facility] [place] JHKEWTNOIE3723-03-54 01:10:006.5[facility] HofixlaCQEPWVIDMD2693-07-06 01:10:00 Negative mg/dL *NA*(07/20/2012 19:10:00)[facility] BewdbpcWFNCYUUJEV8417-01-09 01:10:001.020[facility] WmaabskHOWNNEDVLE5955-18-79 01:10:00Slight *ABN*(07/20/2012 19:10:00)[facility] BxjcokeCSXEAJQHDI7464-98-97 01:10:00Negative (07/20/2012 19:10:00)[facility] PzghcnjSOVZNSQMWQ8665-47-53 01:10:00Trace *ABN*(07/20/2012 19:10:00)[facility] IkeqqpfMBQJVGAMWZ8602-44-94 01:10:00Many /LPF *ABN*(07/20/2012 19:10:00)[facility] DdtcoumYGBJCINJGI2618-66-64 01:10:00Small *ABN*(07/20/2012 19:10:00)[facility] RlssnyfUNKYOJYZZG2926-72-52 01:10:00Negative *NA*(07/20/2012 19:10:00)[facility] JwnkepeQMBYQFEIUW3636-15-92 01:10:00Occasional /HPF *NA*(07/20/2012 19:10:00)[facility] XjoknfpMZJORRGNTX0087-67-51 01:10:00Few /LPF *NA*(07/20/2012 19:10:00)[facility] UwabixcGLACLAHUVH3826-35-32 01:10:00Few /HPF *NA*(07/20/2012 19:10:00)[facility] AfqpoxlEHXZTKLQLW5327-51-13 01:10:001 [facility] WftnfmvNJGBMVKTOP1075-57-33 01:10:006[facility] HermannURINALYSIS 2012-07-21 01:10:001[facility]annBEDSIDE GLUCOSE QUUGPGK0483-14-91 12:05:0086 [facility] DjlsrscMXLFNZPKOZ4799-52-27 08:50:0088.3[facility] HermannHEMATOLOGY 2012-07-20 08:50:0041.1[facility] AcxbnhhPWRSGGMYMK0457-25-06 08:50:0013.7[facility] GqnfqjeIFLXSRDNYH0680-88-26 08:50:004.66[facility] HlnkbqhZPHXDPAVRS1872-66-13 08:50:0012.2[facility] SsukhmvFCQUSQKUFI8666-62-26 08:50:006.8[facility] VNDJDMUQPO5257-34-83 08:50:59423Pipnnqab AmflogeDWQWZZKKQX0371-77-24 08:50:00 15.6[facility] SdfdujuSHTNWDXFPY3832-55-48 08:50:0033.3[facility] HermannHEMATOLOGY 2012-07-20 08:50:00 Test Item Value Reference Range Interpretation Comments MCH (test code = MCH) 29.4 pg 27.0-31.0 N [facility] GjqlirgDKVVVPJIG0581-75-52 08:50:0014.7[facility] HermannCHEMISTRY 2012-07-20 08:50:0088[facility] HjvwdhcYMPASPHHI1883-99-42 08:50:0077[facility] YibeyevTNKCXHLXD4108-32-39 08:50:0013[facility] VdzkszdSJXPNPXDO9635-02-56 08:50:000.8[facility] FabsxdlZXJFSBYZD2356-32-17 08:50:92370Wmdjqtjk [place] JJHLRETNO9991-69-09 08:50:003.7[facility] JlckploVGTBJDMHL8945-11-49 08:50:0097 [facility] FsvvohnLDAXRPJVC3386-46-15 08:50:0029[facility] HermannCHEMISTRY 2012-07-20 08:50:008.3[facility] FkkcbiuYBMEUAZEKI5338-99-08 08:50:000.7[facility] ZjuprguPZRVOMUBCI4575-68-60 08:50:004.3[facility] ZyzfiquPEUKNDKXMX9059-90-17 08:50:006.9[facility] ApoxpuuXYJZNIGAOD5849-31-16 08:50:000.8[facility] EEMSTUXXKZ9286-51-28 08:50:001.2[facility] RpkvklbRXOSHOKFPO3155-55-00 08:50:000.1 [facility] NfssufjLHTIIXVLKT9467-09-66 08:50:000.1[facility] HermannHEMATOLOGY 2012-07-20 08:50:005.6[facility] KzwsdraHOGZBHMBNF9623-73-51 08:50:0035.7[facility] JejopiuBBLBZZFWJS8537-34-50 08:50:0056.7[facility]annBLOOD BANK RESULTS 2012-07-19 13:30:00Negative (07/19/2012 07:30:00)[facility]annCHEMISTRY 2012-07-19 13:30:0062[facility] FkalhkeVMJGMWIKO3586-56-52 13:30:0067[facility] EowkybqKUPVDKSSR6856-98-99 13:30:0030[facility] YbupvkvOACSVUQIX9109-10-52 13:30:008.8[facility] PtuxzhrZGFMMDCQR7240-14-65 13:30:0012[facility] HZSDMJBBS9681-26-52 13:30:001.0[facility] HggjeigEEENWCNTU7607-11-89 13:30:20927 [facility] JdrmjzuQNZGTOXFO5095-85-37 13:30:004.1[facility]annCHEMISTRY 2012-07-19 13:30:0099[facility] LqysfelOSQXISQOT1215-62-56 13:30:58838Pgbuxdxb KzhbjpwVWBVCUUDX9831-57-46 13:30:0013.1[facility] KdgkendRNBKBTHOH0608-80-85 13:30:00<0.02[facility] YgckxxbVFXJETTEHJ8672-45-59 13:30:001+ *ABN*(07/19/2012 07:30:00)[facility] ZdzcakbPMDDQXHRMC7319-86-51 13:30:000.0[facility] OWNNRHWVBX1726-63-21 13:30:00Slight *ABN*(07/19/2012 07:30:00)[facility] REBERFGQOC6356-48-09 13:30:00Slight (07/19/2012 07:30:00)[facility] NFMWPBCRYW0399-80-24 13:30:000.0[facility] OucgvxfYXCCQDXVKZ8329-22-44 13:30:004.0 [facility] AedehjyZNKZHKGUNK0084-95-25 13:30:0030.0[facility]annHEMATOLOGY 2012-07-19 13:30:001.0[facility] MhyktwcLHMBTWOZYR2735-77-08 13:30:005.4[facility] EwxhljeQSRMBJDPHP7591-02-70 13:30:0011.8[facility] GjfgperKRQKRZADQS5969-75-87 13:30:000.2[facility] GgypiktGJZRTAQIOM2061-47-34 13:30:000.7[facility] PVTZYNTMIF8081-89-82 13:30:0065.0[facility] HotggihOAJAZLXUOW5662-64-02 13:30:00 0.97[facility] WyhxuimZYXWACMJVP7544-08-83 13:30:00 Test Item Value Reference Range Interpretation Comments PT (test code = PT) 13.1 s 12.0-14.7 N [facility] SystemGilqwkiASPFLQRPWO7379-45-74 13:30:004.1[facility]annHEMATOLOGY 2012-07-19 13:30:00 Test Item Value Reference Range Interpretation Comments ACT (TEG) (test code = ACT (TEG)) 113 s 86-118 N [facility] SystemCqkqvftOCADSJRAEW0908-32-79 13:30:00 Test Item Value Reference Range Interpretation Comments Split Point (test code = Split Point) 0.6 min [facility] SystemQjbcmkgMKIVDDBWSO1474-64-89 13:30:00 Test Item Value Reference Range Interpretation Comments Angle (test code = Angle) 82 degrees 64-80 H [facility] SystemOynebjlNEGRXTJLUB1120-80-72 13:30:00 Test Item Value Reference Range Interpretation Comments Max Amp (test code = Max Amp) 81 mm 52-71 H [facility] SystemVwqcnqqESTNKCOBVX5470-75-28 13:30:00 Test Item Value Reference Range Interpretation Comments K-time (test code = K-time) 0.8 min 0.6-2.3 N [facility] SystemEtfruxnNMNHXXPCVZ3447-01-96 13:30:0020.9[facility]annHEMATOLOGY 2012-07-19 13:30:00 Test Item Value Reference Range Interpretation Comments R-time (test code = R-time) 0.7 min 0.4-0.7 N [facility] SystemHqddxcyHNXWXJCPQO8138-47-07 13:30:00 Test Item Value Reference Range Interpretation Comments PTT (test code = PTT) 32.1 s 22.9-35.8 N [facility] SystemOqtrpcoRKKQUXPQDJ9005-87-81 13:30:0015.0[facility]annHEMATOLOGY 2012-07-19 13:30:005.06[facility] SfnckybKMCVLYIOUM7958-81-26 13:30:0014.8[facility] BhtnsoaTYZEPGWMDX5629-99-08 13:30:0033.3[facility] TwdjprqSTESIGODVT0704-42-72 13:30:0018.1[facility] CjxywolUUPAKXHOBX6602-38-44 13:30:0044.9[facility] QXOMMNZQEC9878-12-68 13:30:007.1[facility] DvjwpskCAIUHMNYZJ4937-12-04 13:30:00 Test Item Value Reference Range Interpretation Comments MCH (test code = MCH) 29.5 pg 27.0-31.0 [address] [facility]BcujnoiYWSHIBQUNA7734-06-61 13:30:0088.8[facility] LevellandHEMATOLOGY 2012-07-19 13:30:18412MgthhjvnCedar Park [facility]
--- NOTE | 2021-04-05 20:16 | RAD REPORT ---
EXAM DESCRIPTION: RAD - Chest Single View - 04/05/2021 7:57 pm CLINICAL HISTORY: CHEST PAIN Chest pain. COMPARISON: Chest Single View dated 03/02/2021; Chest Single View dated 12/11/2020; Chest Single View dated 10/23/2020; Chest Single View dated 09/13/2020 FINDINGS: Portable technique limits examination quality. The lungs are grossly clear. The heart is normal in size. No displaced fractures.Sternotomy wires. IMPRESSION: No acute intrathoracic process suspected.
[2021-04-05 20:18] LABS: Protime INR 1.03
[2021-04-05 20:21] LABS: ALT/SGPT 37 U/L (12-78); Alkaline Phosphatase 126 U/L (45-117); BUN Blood Urea Nitrogen 12 mg/dL (7-18); Bicarbonate 26 mmol/L (21-32); Bilirubin Direct < 0.1 mg/dL (0-0.2); Bilirubin Total 0.3 mg/dL (0.2-1.0); Glucose Level 85 mg/dL (74-106); Sodium Level 141 mmol/L (136-145)
[2021-04-05 20:22] LABS: AST/SGOT 27 U/L (15-37); Albumin 3.4 g/dL (3.4-5.0); Magnesium 1.8 mg/dL (1.8-2.4); NT PRO-BNP 190 pg/mL (<125); Potassium 3.7 mmol/L (3.5-5.1); Protein, Total 7.8 g/dL (6.4-8.2); Troponin (Emerg Dept Use Only) 0.27 ng/mL (0.0-0.045)
[2021-04-05 20:28] LABS: Absolute Lymphocytes (CBC) 3.6 K/uL (0.7-4.9); Basophils % 0.7 % (0-1.3); Hematocrit 40.2 % (36.0-45.0); Lymphocytes % 18.3 % (15.3-44.8); RBC Red Blood Cell Count 4.67 M/uL (3.86-4.86)
[2021-04-05 20:29] LABS: MPV 9.5 fL (7.6-11.3)
--- NOTE | 2021-04-05 20:30 | EDPHYS ---
Physician Documentation [facility] Name: Kathy Whyte Age: 55 yrs Sex: Female : 1965 Arrival Date: 04/05/2021 Time: 18:27 Bed 6 Private MD: ED Physician Erika Burton HPI: 04/05 20:02 This 55 yrs old Female presents to ER via EMS with complaints of Chest Pain. sp3 20:02 55-year-old female with a longstanding cardiac history including myocardial infarction, sp3 CABG, hypertension, hyperlipidemia, depression who now presents with a 3-day history of chest pain waxing and waning in nature similar to her prior episodes. Patient took her home medications and due to continuation of pain presents to the ED today. Patient denies radiation of pain to her back, shortness of breath, syncope, fever, URI symptoms, abdominal pain, nausea, vomiting, syncope, near syncope, neurological symptoms, any new medications or changes in dosing, known sick contacts, travel history or prolonged immobilization, or any other ROS at this time. Patient has had multiple visits here for similar symptoms including several admissions.. Historical: - Allergies: 18:28 Compazine; sv 18:28 Demerol; sv 18:28 Morphine; sv 18:28 Neurontin; sv 18:28 NSAIDS; sv 18:28 Stadol; sv 18:28 Toradol; sv - PMHx: 18:28 High Cholesterol; Myocardial infarction; Hypertension; Depression; Deep vein sv thrombosis; CVA; Congestive heart failure; Anxiety; Seizures; - PSHx: 18:28 Coronary artery bypass graft; sv - Immunization history:: Client reports having NOT received the Covid vaccine. - Social history:: Smoking status: Patient denies any tobacco usage or history of. ROS: 20:04 Constitutional: Negative for fever, chills, and weight loss, Eyes: Negative for injury, sp3 pain, redness, and discharge, ENT: Negative for injury, pain, and discharge, Neck: Negative for injury, pain, and swelling, Respiratory: Negative for shortness of breath, cough, wheezing, and pleuritic chest pain, Abdomen/GI: Negative for abdominal pain, nausea, vomiting, diarrhea, and constipation, Back: Negative for injury and pain, MS/Extremity: Negative for injury and deformity, Skin: Negative for injury, rash, and discoloration, Neuro: Negative for headache, weakness, numbness, tingling, and seizure, Allergy/Immunology: Negative for hives, rash, and allergies, Endocrine: Negative for neck swelling, polydipsia, polyuria, polyphagia, and marked weight changes. 20:04 Cardiovascular: Positive for chest pain, Negative for edema, palpitations, paroxysmal nocturnal dyspnea. 20:04 All other systems are negative. Exam: 20:05 Constitutional: This is a well developed, well nourished patient who is awake, alert, sp3 and in no acute distress. Head/Face: Normocephalic, atraumatic. Eyes: Pupils equal round and reactive to light, extra-ocular motions intact. Lids and lashes normal. Conjunctiva and sclera are non-icteric and not injected. Cornea within normal limits. Periorbital areas with no swelling, redness, or edema. ENT: Nares patent. No nasal discharge, no septal abnormalities noted. External auditory canals are clear. Oropharynx with no redness, swelling, or masses, exudates, or evidence of obstruction, uvula midline. Mucous membranes moist. Neck: Trachea midline, no thyromegaly or masses palpated, and no cervical lymphadenopathy. Supple, full range of motion without nuchal rigidity, or vertebral point tenderness. No Meningismus. Chest/axilla: Normal chest wall appearance and motion. Nontender with no deformity. No lesions are appreciated. Cardiovascular: Regular rate and rhythm with a normal S1 and S2. No gallops, murmurs, or rubs. Normal PMI, no JVD. No pulse deficits. Respiratory: Lungs have equal breath sounds bilaterally, clear to auscultation and percussion. No rales, rhonchi or wheezes noted. No increased work of breathing, no retractions or nasal flaring. Abdomen/GI: Soft, non-tender, with normal bowel sounds. No distension or tympany. No guarding or rebound. No evidence of tenderness throughout. Back: No spinal tenderness. No costovertebral tenderness. Full range of motion. Skin: Warm, dry with normal turgor. Normal color with no rashes, no lesions, and no evidence of cellulitis. MS/ Extremity: Pulses equal, no cyanosis. Neurovascular intact. Full, normal range of motion. Neuro: Awake and alert, GCS 15, oriented to person, place, time, and situation. Cranial nerves II-XII grossly intact. Motor strength 5/5 in all extremities. Sensory grossly intact. Cerebellar exam normal. Normal gait. Psych: Awake, alert, with orientation to person, place and time. Behavior, mood, and affect are within normal limits. 20:05 Constitutional: This is a well developed, well nourished patient who is awake, alert, and in no acute distress. Patient is sleeping comfortably in no acute distress. 20:06 ECG was reviewed by the Attending Physician. EKG demonstrates normal sinus rhythm at 73 sp3 bpm with normal intervals, right bundle branch block, nonspecific ST/T changes that are unchanged from her prior EKG dated 05/13/2011. She has multiple EKGs on file which shows similar pattern. I do not see signs of Brugada, Wellens, or do Orellana T waves. Vital Signs: 18:41 BP 105 / 70; Pulse 73; Resp 17; Temp 97.0; Pulse Ox 100% ; Weight 74.84 kg; Height 5 sv ft. 7 in. (170.18 cm); Pain 5/10; 18:41 Body Mass Index 25.84 (74.84 kg, 170.18 cm) sv MDM: 19:10 Patient medically screened. sp3 20:05 Data reviewed: vital signs, nurses notes, lab test result(s), EKG, radiologic studies. sp3 20:07 ED course: 55-year-old female with 3 days of chest pain. She is in no acute distress sp3 and given no changes in her EKG I do not believe is having any significant pathology other than her chronic angina. Will obtain chest x-ray, laboratory values to discern a single troponin value which should indicate any injury since her chest pain has been going on for 3 days. I'm not suspicious for pulmonary [place], aortic dissection, pneumonia, pleurisy, pneumothorax, or any other critical chest or abdominal pathology. Patient is okay with the plan we will discharge her pending negative work-up.. 20:24 ED course: Patient's troponin is 0.27 which is elevated with a normal creatinine. Pain sp3 remains subsided at this time. Will admit for NSTEMI and start Lovenox and aspirin.. 04/05 19:06 Order name: Basic Metabolic Panel; Complete Time: 20:23 sp3 04/05 19:06 Order name: CBC with Diff sp3 04/05 19:06 Order name: LFT's; Complete Time: 20:23 sp3 04/05 19:06 Order name: Magnesium; Complete Time: 20:23 sp3 04/05 19:06 Order name: NT PRO-BNP; Complete Time: 20:23 sp3 04/05 19:06 Order name: PT-INR; Complete Time: 20:23 sp3 04/05 19:06 Order name: Troponin (emerg Dept Use Only); Complete Time: 20:23 sp3 04/05 20:23 Interpretation: Abnormal. sp3 04/05 21:36 Order name: CBC Smear Scan EDMS 04/05 22:22 Order name: SARS-COV-2 RT PCR EDMS 04/06 05:14 Order name: CBC with Automated Diff EDMS 04/06 05:29 Order name: Comprehensive Metabolic Panel EDMS 04/06 05:29 Order name: Troponin I EDMS 04/06 05:29 Order name: Lipid Profile EDMS 04/05 18:55 Order name: EKG; Complete Time: 18:55 cp 04/05 18:55 Order name: EKG - Nurse/Tech; Complete Time: 18:58 cp 04/05 19:06 Order name: XRAY Chest (1 view); Complete Time: 20:23 sp3 04/05 19:06 Order name: Cardiac monitoring; Complete Time: 19:45 sp3 04/06 05:29 Order name: T4 Free EDMS 04/06 05:29 Order name: Magnesium EDMS 04/06 05:29 Order name: Thyroid Stimulating Hormone EDMS 04/06 09:32 Order name: Potassium EDMS 04/06 12:50 Order name: Troponin I EDMS 04/05 19:06 Order name: IV Saline Lock; Complete Time: 19:45 sp3 04/05 19:06 Order name: Labs collected and sent; Complete Time: 19:45 sp3 04/05 19:06 Order name: O2 Per Protocol; Complete Time: 19:45 sp3 04/05 19:06 Order name: O2 Sat Monitoring; Complete Time: 19:45 sp3 Administered Medications: 21:01 Drug: Lovenox (enoxaparin) 70 mg Route: Sub-Q; Site: right upper abdomen; bs2 04/06 01:57 Follow up: Response: No adverse reaction bs2 04/05 21:01 Drug: Aspirin 162 mg Route: PO; bs2 04/06 01:57 Follow up: Response: No adverse reaction bs2 04/05 21:01 Drug: Aspirin 81 mg Route: PO; bs2 04/06 01:58 Follow up: Response: No adverse reaction bs2 04/05 21:01 Drug: fentaNYL (PF) 25 mcg Route: IVP; Site: left jugular; bs2 04/06 01:57 Follow up: Response: No adverse reaction bs2 04/05 21:01 Drug: Phenergan (promethazine) 12.5 mg Route: IVP; Site: left jugular; bs2 04/06 01:58 Follow up: Response: No adverse reaction bs2 01:56 Drug: fentaNYL (PF) 25 mcg Route: IVP; Site: left jugular; bs2 01:58 Follow up: Response: No adverse reaction bs2 01:57 Drug: Phenergan (promethazine) 12.5 mg Route: IVP; Site: left jugular; bs2 01:58 Follow up: Response: No adverse reaction bs2 Disposition Summary: 04/05/21 20:29 Hospitalization Ordered Hospitalization Status: Inpatient Admission sp3 Provider: Parth Bell sp3 Condition: Stable sp3 Problem: an acute exacerbation sp3 Symptoms: have worsened sp3 Bed/Room Type: Standard sp3 Location: [facility] ER HOLD(04/05/21 23:26) cg Room Assignment: ERHOLD-(04/05/21 23:26) cg Diagnosis - Subsequent non-ST elevation (NSTEMI) myocardial infarction sp3 Forms: - Medication Reconciliation Form sp3 - SBAR form sp3 Signatures: Dispatcher [employer] EDMS Francisca Ruvalcaba RN RN Lionel Rogers PA PA cp Garcia, Cindy, RN RN Erika Mendiola sp3 Jenny Mcmullen RN RN bs2 Corrections: (The following items were deleted from the chart) 04/05 21:20 21:05 CORONAVIRUS+ ordered. EDNC EDMS 23:26 20:29 Telemetry/MedSurg (Inpatient) sp3 cg 23:26 20:29 sp3 cg
--- NOTE | 2021-04-05 20:30 | ER ---
Nurse's Notes [facility] Name: Kathy Whtye Age: 55 yrs Sex: Female : 1965 Arrival Date: 04/05/2021 Time: 18:27 Bed 6 Private MD: Diagnosis: Subsequent non-ST elevation (NSTEMI) myocardial infarction Presentation: 04/05 18:27 Chief complaint: EMS states: chest pain with L arm, L neck, L upper back radiation x 2 sv days. Risk Assessment: Do you want to hurt yourself or someone else? Patient reports no desire to harm self or others. Onset of symptoms was April 03, 2021. 18:27 Method Of Arrival: EMS: [facility] sv 18:27 Acuity: ARI 2 sv 18:41 Coronavirus screen: Client denies travel out of the [place] in the last 14 days. At this sv time, the client does not indicate any symptoms associated with coronavirus-19. Ebola Screen: No symptoms or risks identified at this time. Initial Sepsis Screen: Does the patient meet any 2 criteria? No. Patient's initial sepsis screen is negative. Does the patient have a suspected source of infection? No. Patient's initial sepsis screen is negative. Triage Assessment: 18:43 General: Appears in no apparent distress. comfortable, well groomed, well developed, sv Behavior is calm, cooperative, appropriate for age. Pain: Complains of pain in anterior aspect of left upper chest and left breast Pain radiates to left trapezius, left scapular area and left arm Pain currently is 5 out of 10 on a pain scale. Pain began 2-3 days ago. Is continuous. Neuro: Level of Consciousness is awake, alert, obeys commands, Oriented to person, place, time, situation, Moves all extremities. Gait is steady, Speech is slurred, pt's normal since her CVAs. Cardiovascular: Patient's skin is warm and dry. Rhythm is sinus rhythm. Respiratory: Airway is patent Respiratory effort is even, unlabored, Respiratory pattern is regular, symmetrical. Derm: Skin is intact, Skin is pink, warm \T\ dry. Historical: - Allergies: 18:28 Compazine; sv 18:28 Demerol; sv 18:28 Morphine; sv 18:28 Neurontin; sv 18:28 NSAIDS; sv 18:28 Stadol; sv 18:28 Toradol; sv - PMHx: 18:28 High Cholesterol; Myocardial infarction; Hypertension; Depression; Deep vein sv thrombosis; CVA; Congestive heart failure; Anxiety; Seizures; - PSHx: 18:28 Coronary artery bypass graft; sv - Immunization history:: Client reports having NOT received the Covid vaccine. - Social history:: Smoking status: Patient denies any tobacco usage or history of. Screenin:45 Abuse screen: Denies threats or abuse. Denies injuries from another. Nutritional sv screening: No deficits noted. Tuberculosis screening: No symptoms or risk factors identified. Fall Risk No fall in past 12 months (0 pts). Secondary diagnosis (15 points) CVA, No IV (0 pts). Ambulatory Aid- None/Bed Rest/Nurse Assist (0 pts). Gait- Normal/Bed Rest/Wheelchair (0 pts) Mental Status- Oriented to own ability (0 pts). Total Choi Fall Scale indicates No Risk (0-24 pts). Vital Signs: 18:41 BP 105 / 70; Pulse 73; Resp 17; Temp 97.0; Pulse Ox 100% ; Weight 74.84 kg; Height 5 sv ft. 7 in. (170.18 cm); Pain 5/10; 18:41 Body Mass Index 25.84 (74.84 kg, 170.18 cm) sv ED Course: 18:27 Patient arrived in ED. sv 18:27 EKG done, by ED staff, reviewed by Zackary Mccormick MD. Patient maintains SpO2 saturation sv greater than 95% on room air. 18:28 Triage completed. sv 18:28 answering service operator on. Pulse ox on. NIBP on. Door closed. Head of bed elevated. sv 18:40 Francisca Ruvalcaba, RN is Primary Nurse. sv 18:43 Arm band placed on. sv 18:45 Patient has correct armband on for positive identification. Bed in low position. Call sv light in reach. 19:02 Erika Burton is Attending Physician. sp3 19:12 Primary Nurse role handed off by Francisca Ruvalcaba, RN sv 19:12 Report given to Pierre CERDA and Jenny RN. sv 19:45 Jayesh Rider, RN is Primary Nurse. jb4 19:45 Missed attempt(s): 20 gauge in left forearm. jb4 19:57 XRAY Chest (1 view) In Process Unspecified. EDMS 20:29 Parth Bell MD is Hospitalizing Provider. sp3 20:40 Inserted saline lock: 18 gauge in left EJ, using aseptic technique. bs2 04/06 03:20 Jenny Mcmullen, PRASHANT is Primary Nurse. bs2 12:50 No provider procedures requiring assistance completed. Patient admitted, IV remains in bs2 place. Administered Medications: 04/05 21:01 Drug: Lovenox (enoxaparin) 70 mg Route: Sub-Q; Site: right upper abdomen; bs2 04/06 01:57 Follow up: Response: No adverse reaction bs2 04/05 21:01 Drug: Aspirin 162 mg Route: PO; bs2 04/06 01:57 Follow up: Response: No adverse reaction bs2 04/05 21:01 Drug: Aspirin 81 mg Route: PO; bs2 04/06 01:58 Follow up: Response: No adverse reaction bs2 04/05 21:01 Drug: fentaNYL (PF) 25 mcg Route: IVP; Site: left jugular; bs2 04/06 01:57 Follow up: Response: No adverse reaction bs2 04/05 21:01 Drug: Phenergan (promethazine) 12.5 mg Route: IVP; Site: left jugular; bs2 04/06 01:58 Follow up: Response: No adverse reaction bs2 01:56 Drug: fentaNYL (PF) 25 mcg Route: IVP; Site: left jugular; bs2 01:58 Follow up: Response: No adverse reaction bs2 01:57 Drug: Phenergan (promethazine) 12.5 mg Route: IVP; Site: left jugular; bs2 01:58 Follow up: Response: No adverse reaction bs2 Outcome: 04/05 20:29 Decision to Hospitalize by Provider. sp3 04/06 12:50 Admitted to ER Hold. Please see [facility] for further documentation. bs2 Condition: stable Instructed on the need for admit. 14:23 Patient left the ED. ap3 Signatures: Dispatcher [employer] EDMS Francisca Ruvalcaba RN Jayesh Gonzalez RN RN jb4 Prokisch, Amanda, RN RN ap3 Erika Burton sp3 Jenny Mcmullen, PRASHANT RN bs2 Corrections: (The following items were deleted from the chart) 04/05 18:42 18:27 Chief complaint: EMS states: chest pain with R arm radiation x 2 days sv sv
--- NOTE | 2021-04-05 20:44 | P.HP ---
Certification for Inpatient Patient admitted to: Inpatient With expected LOS: >2 Midnights Patient will require the following post-hospital care: None Practitioner: I am a practitioner with admitting privileges, knowledge of patient current condition, hospital course, and medical plan of care. Services: Services provided to patient in accordance with Admission requirements found in Title 42 Section 412.3 of the Code of Federal Regulations Patient History Date of Service: 04/05/21 Primary Care Provider: Dr. Hansen, Dr. Escobar Reason for admission: NSTEMI History of Present Illness: 55-year-old female with history of CAD status post CABG, hypertension, hyperlipidemia, anxiety, depression presents emergency department for chest pain. Patient reports ongoing chest pain over the course of the last 3 days. Patient was evaluated in emergency department labs were significant for white blood cell count 19.8, chloride 108, GFR 72 alk phos 126 troponin 0 0.27 BNP 198 chest x-ray unremarkable EKG without acute ST changes, ED provider wishes to admit for further evaluation and management. Patient had echocardiogram 01/20/2020 with normal ejection fraction, had pharmacological stress test November 2020 which was also normal. Will admit for further evaluation and management. Allergies butorphanol tartrate [From Stadol] Allergy (Intermediate, Verified 03/02/21 23:06) angry gabapentin [From Neurontin] Allergy (Intermediate, Verified 03/02/21 23:06) Blurred vision prochlorperazine [Prochlorperazine] Allergy (Mild, Verified 03/02/21 23:06) Rash prochlorperazine edisylate [From Compazine] Allergy (Verified 03/02/21 23:06) Unknown ketorolac tromethamine [From Toradol] Adverse Reaction (Intermediate, Verified 03/02/21 23:06) anxiety prochlorperazine maleate [From Compazine] Adverse Reaction (Intermediate, Verified 03/02/21 23:06) Hives NSAIDS (Non-Steroidal Anti-Inflamma Adverse Reaction (Mild, Verified 03/02/21 23:06) Nausea/Vomiting Home Medications: Albuterol Sulfate [Proair Hfa] 2 puff IH DAILYPRN PRN 01/20/20 Budesonide/Formoterol Fumarate [Symbicort 160-4.5 Mcg Inhaler] 2 puff IH BIDP PRN 01/20/20 Codeine/APAP [Tylenol #3*] 1 tab PO TIDP PRN 01/20/20 Furosemide [Lasix*] 1 tab PO DAILYPRN PRN 01/20/20 LORazepam [Lorazepam] 1 tab PO BID 01/20/20 Potassium Chloride [K-Dur] 1 tab PO DAILY 01/20/20 Sertraline [Zoloft*] 100 tab PO BID 01/20/20 Topiramate [Topamax*] 50 mg PO BID 01/20/20 buPROPion HCL [Wellbutrin*] 200 mg PO BID 01/20/20 Atorvastatin Calcium [Lipitor] 1 tab PO BEDTIME #30 tab 01/25/20 Aspirin [Aspirin EC] 1 tab PO DAILY 12/11/20 Lisinopril [Zestril] 1 tab PO DAILY 12/11/20 Metoprolol Tartrate 1 tab PO BID 12/11/20 Eszopiclone [Lunesta] 3 mg PO BEDTIME 03/02/21 Ferrous Sulfate [Iron] 1 tab PO DAILY 03/02/21 Magnesium Chloride [Magnesium] 1 tab PO DAILY 03/02/21 Promethazine HCl 25 mg PO BID 03/02/21 - Past Medical/Surgical History Diabetic: No -: HTN-resolved -: Hyperlipidemia -: History of CVA/TIA 2011 -: Antiphospholipid syndrome -: BLood clot (left forearm 09/2019) -: Depression -: Former Tobacco abuse -: Chronic pain -: Migraines, complex/complicated/mixed, acute headache -: GERD -: h/o of [place] 09/2019 and 12/2019 s/p CABG at [facility] and stent -: INSOMNIA -: Choleycystectomy -: Appendectomy -: Hysterectomy/left ovary removed -: (R) ankle/foot sx -: bilateral feet surgery-with plates and screws -: tonsillectomy -: November 2013 destinee cath placement, removed -: CABG (06/2019) Psychosocial/ Personal History: . Lives at home. - Family History Mother -: Hypertension, Diabetes Father -: Hypertension, Stroke Notes: - Social History Smoking Status: Never smoker Alcohol use: Yes CD- Drugs: Yes Caffeine use: No Place of Residence: Home Review of Systems 10-point ROS is otherwise unremarkable Respiratory: SOB with Excertion Cardiovascular: Chest Pain Physical Examination - Physical Exam General: Alert, In no apparent distress, Oriented x3 HEENT: Atraumatic, PERRLA, Mucous membr. moist/pink, EOMI, Sclerae nonicteric Neck: Supple, 2+ carotid pulse no bruit, No LAD, Without JVD or thyroid abnormality Respiratory: Clear to auscultation bilaterally, Normal air movement Cardiovascular: Regular rate/rhythm, Normal S1 S2 Gastrointestinal: Normal bowel sounds, No tenderness Musculoskeletal: No tenderness Integumentary: No rashes Neurological: Normal gait, Normal speech, Normal strength at 5/5 x4 extr, Normal tone, Normal affect Lymphatics: No axilla or inguinal lymphadenopathy - Studies Laboratory Data (last 24 hrs) 04/05/21 19:40: PT 11.8, INR 1.03 04/05/21 19:40: WBC 19.80 H, Hgb 13.4, Hct 40.2, Plt Count 73 L 04/05/21 19:40: Sodium 141, Potassium 3.7, BUN 12, Creatinine 0.82, Glucose 85, Magnesium 1.8, Total Bilirubin 0.3, AST 27, ALT 37, Alkaline Phosphatase 126 H Assessment and Plan - Plan Assessment: NSTEMI history of CAD status post CABG/stenting History of CVA Hypertension Hyperlipidemia Depression GERD Plan: NSTEMI history of CAD status post CABG/stenting: Continue with full dose Lovenox, telemetry, trend troponins, aspirin, metoprolol, statin therapy. Cardiology consulted appreciate further assistance. Last echocardiogram 01/20/2020 was normal last pharmacological stress test 11/2020 was also normal. History of CVA: Continue medications, stable this time patient with some left- sided weakness. Hypertension: Continue metoprolol, lisinopril Hyperlipidemia: Continue atorvastatin 80 Depression: Continue Zoloft, Wellbutrin GERD: Continue home medication DVT PPX: Full dose Lovenox Code status: Full code Discharge Plan: Home Plan to discharge in: 48 Hours - Advance Directives Does patient have a Living Will: No Does patient have a Durable POA for Healthcare: No - Code Status/Comfort Care Code Status Assessed: Yes (Full code) Critical Care: No Time Spent Managing Pts Care (In Minutes): 55
[2021-04-05] MEDS ORDERED: PROMETHAZINE INJ 25 MG/ML AMP ONE (21:11)
[2021-04-05] MEDS ORDERED: FENTANYL CITR 100 MCG/2 ML ONE (21:12)
[2021-04-05] MEDS ORDERED: ENOXAPARIN 80 MG/0.8 ML SQ ONE (21:13)
[2021-04-05] MEDS ORDERED: ASPIRIN EC 81 MG TAB PO ONE (21:13)
[2021-04-05 21:36] LABS: Platelet Estimate DECR; White Blood Cell Scan OK (OK)
[2021-04-05 21:37] LABS: Blood Morphology Comment NOT SEEN (NOT SEEN); Platelets, Giant OCC
[2021-04-06] MEDS ORDERED: ONDANSETRON 4 MG/2 ML VIAL IV PRN (01:34)
[2021-04-06] MEDS ORDERED: ESZOPICLONE 1 MG TAB PO PRN (01:34)
[2021-04-06] MEDS ORDERED: ATORVASTATIN 20 MG TAB PO SCH (01:34)
[2021-04-06] MEDS ORDERED: ACETAMINOPHEN 500 MG TAB PO PRN (01:34)
[2021-04-06] MEDS ORDERED: FENTANYL CITR 100 MCG/2 ML IV PRN (01:34)
[2021-04-06] MEDS ORDERED: LORAZEPAM 1 MG TABLET PO PRN (01:34)
[2021-04-06] MEDS ORDERED: FENTANYL CITR 100 MCG/2 ML ONE ×3 (02:00→10:43)
[2021-04-06] MEDS ORDERED: PROMETHAZINE INJ 25 MG/ML AMP ONE (02:06)
[2021-04-06 03:18] VITALS: BMI 25.8
[2021-04-06 05:08] LABS: Absolute Lymphocytes (CBC) 4.1 K/uL (0.7-4.9); Basophils % 0.6 % (0-1.3); Hematocrit 34.3 % (36.0-45.0); Lymphocytes % 24.1 % (15.3-44.8); MPV 7.5 fL (7.6-11.3)
[2021-04-06 05:29] LABS: Albumin 3.2 g/dL (3.4-5.0); Bilirubin Total 0.3 mg/dL (0.2-1.0); Magnesium 1.8 mg/dL (1.8-2.4); Protein, Total 7.3 g/dL (6.4-8.2); Thyroid Stimulating Hormone 1.78 uIU/mL (0.360-3.740); Troponin I 0.31 ng/mL (0.0-0.045)
[2021-04-06 06:49] VITALS: TEMP 98.2
[2021-04-06] MEDS ORDERED: POTASSIUM CL SA 10 MEQ TAB PO ONE ×2 (06:54→07:20)
[2021-04-06] MEDS ORDERED: ASPIRIN EC 81 MG TAB PO ONE (08:30)
[2021-04-06] MEDS ORDERED: METOPROLOL TAR 25 MG TAB PO SCH (09:00)
[2021-04-06] MEDS ORDERED: ASPIRIN EC 81 MG TAB PO SCH (09:00)
[2021-04-06] MEDS ORDERED: ENOXAPARIN 100 MG/ML SYR SQ SCH (09:00)
[2021-04-06] MEDS ORDERED: TOPIRAMATE 25 MG TAB PO SCH (09:00)
[2021-04-06] MEDS ORDERED: lisinopriL 10 MG TAB PO SCH (09:00)
[2021-04-06] MEDS ORDERED: buPROPion HCL 100 MG TAB PO SCH (09:00)
[2021-04-06] MEDS ORDERED: SERTRALINE HCL 100 MG TAB PO SCH (09:00)
--- NOTE | 2021-04-06 09:39 | P.PN ---
Subjective Date of Service: 04/06/21 Primary Care Provider: Dr. Hansen, Dr. Escobar Chief Complaint: NSTEMI Subjective: No new changes Physical Examination - Vital Signs Temperature: 98.2 F Blood Pressure: 102/49 Pulse: 87 Respirations: 16 Pulse Ox (%): 99 - Physical Exam General: Alert, Oriented x3 HEENT: Atraumatic, Normocephalic Neck: Supple Respiratory: Clear to auscultation bilaterally Cardiovascular: Regular rate/rhythm, Normal S1 S2 Gastrointestinal: Soft and benign - Studies Laboratory Data (last 24 hrs) 04/05/21 19:40: PT 11.8, INR 1.03 04/05/21 19:40: WBC 19.80 H, Hgb 13.4, Hct 40.2, Plt Count 73 L 04/05/21 19:40: Sodium 141, Potassium 3.7, BUN 12, Creatinine 0.82, Glucose 85, Magnesium 1.8, Total Bilirubin 0.3, AST 27, ALT 37, Alkaline Phosphatase 126 H Assessment And Plan - Plan Chest pain: NSTEMI: CAD s/p CABG: Hyperlipidemia: Hypertension:
[2021-04-06] MEDS ORDERED: lisinopriL 10 MG TAB ONE (09:40)
[2021-04-06] MEDS ORDERED: METOPROLOL TAR 25 MG TAB ONE (09:40)
[2021-04-06] MEDS ORDERED: ONDANSETRON 4 MG/2 ML VIAL ONE (09:41)
[2021-04-06 10:06] VITALS: O2SAT 100
[2021-04-06] MEDS ORDERED: LORazepam 2 MG/ML VIAL ONE (10:42)
[2021-04-06] MEDS ORDERED: LORazepam 2 MG/ML VIAL IV ONE ×2 (10:59→11:12)
--- NOTE | 2021-04-06 11:10 | EKG ---
Test Date: 2021-04-05 Test Time: 18:37:27 Rig Site Engineer: SV MEASUREMENT RESULTS: Intervals: Rate: 73 IL: 192 QRSD: 124 QT: 392 QTc: 431 Moro: P: 64 IL: 192 QRS: 40 T: 37 INTERPRETIVE STATEMENTS: Normal sinus rhythm Right bundle branch block Abnormal ECG Compared to ECG 03/02/2021 16:37:23 Myocardial infarct finding no longer present Electronically Signed On 04-06-21 11:07:39 CDT by Bora Soto
[2021-04-06 11:43] VITALS: BP 108/82
--- NOTE | 2021-04-06 12:42 | P.DS ---
Admission Date: 04/05/21 Discharge Date: 04/06/21 Primary Care Provider: Dr. Hansen, Dr. Escobar Disposition: ROUTINE DISCHARGE Discharge Condition: FAIR Reason for Admission: NSTEMI Brief History of Present Illness: 55-year-old female with history of CAD status post CABG, hypertension, hyperlipidemia, anxiety, depression presents emergency department for chest pain. Patient reports ongoing chest pain over the course of the last 3 days. Patient was evaluated in emergency department labs were significant for white blood cell count 19.8, chloride 108, GFR 72 alk phos 126 troponin 0 0.27 BNP 198 chest x-ray unremarkable EKG without acute ST changes, ED provider wishes to admit for further evaluation and management. Patient had echocardiogram 01/20/2020 with normal ejection fraction, had pharmacological stress test November 2020 which was also normal. Will admit for further evaluation and management. Hospital Course: 55 y o female pt with hx of CAD s/p CABG, HTN, HLD, Depression, admitted for management of chest pain. She also had elevated troponin and there was concerns for NSTEMI. She was worked up with troponin trend and lipid panel but no major changes was found. she was also on telemetry but no abnormal rhthym was detected. she was evaluated by cardiology and she was deemed stable for discharge to follow up in the coming week for stress test/LHC because of her significant cardiac issues. Imdur 30mg PO daily was prescribed for chest pain management. She was discharged in stable condition. Vital Signs/Physical Exam: Temp Pulse Resp BP Pulse Ox 98.2 F 80 25 H 108/82 100 04/06/21 09:41 04/06/21 11:42 04/06/21 11:42 04/06/21 11:42 04/06/21 11:42 General: Alert, Oriented x3 HEENT: Atraumatic, Normocephalic Neck: Supple Respiratory: Clear to auscultation bilaterally Cardiovascular: Regular rate/rhythm, Normal S1 S2 Gastrointestinal: Soft and benign Musculoskeletal: No swelling Neurological: Normal speech, Normal strength at 5/5 x4 extr, Cranial nerves 3-12 intact Laboratory Data at Discharge: WBC 17.20 K/uL (4.3-10.9) H 04/06/21 04:45 Hgb 11.6 g/dL (12.0-15.0) L 04/06/21 04:45 Hct 34.3 % (36.0-45.0) L 04/06/21 04:45 Plt Count 55 K/uL (152-406) L D 04/06/21 04:45 PT 11.8 SECONDS (9.5-12.5) 04/05/21 19:40 INR 1.03 04/05/21 19:40 Sodium 144 mmol/L (136-145) 04/06/21 04:45 Potassium 3.7 mmol/L (3.5-5.1) 04/06/21 09:02 BUN 12 mg/dL (7-18) 04/06/21 04:45 Creatinine 0.71 mg/dL (0.55-1.3) 04/06/21 04:45 Glucose 97 mg/dL (74-106) 04/06/21 04:45 Magnesium 1.8 mg/dL (1.8-2.4) 04/06/21 04:45 Total Bilirubin 0.3 mg/dL (0.2-1.0) 04/06/21 04:45 AST 19 U/L (15-37) 04/06/21 04:45 ALT 32 U/L (12-78) 04/06/21 04:45 Alkaline Phosphatase 115 U/L (45-117) 04/06/21 04:45 Troponin I 0.31 ng/mL (0.0-0.045) H 04/06/21 04:45 Triglycerides 354 mg/dL (<150) H 04/06/21 04:45 Cholesterol 163 mg/dL (<200) 04/06/21 04:45 HDL Cholesterol 39 mg/dL (40-60) L 04/06/21 04:45 Cholesterol/HDL Ratio 4.18 04/06/21 04:45 Home Medications: Albuterol Sulfate [Proair Hfa] 2 puff IH DAILYPRN PRN 01/20/20 Budesonide/Formoterol Fumarate [Symbicort 160-4.5 Mcg Inhaler] 2 puff IH BIDP PRN 01/20/20 Codeine/APAP [Tylenol #3*] 1 tab PO TIDP PRN 01/20/20 Furosemide [Lasix*] 1 tab PO DAILYPRN PRN 01/20/20 LORazepam [Lorazepam] 1 tab PO BID 01/20/20 Potassium Chloride [K-Dur] 1 tab PO DAILY 01/20/20 Sertraline [Zoloft*] 100 tab PO BID 01/20/20 Topiramate [Topamax*] 50 mg PO BID 01/20/20 buPROPion HCL [Wellbutrin*] 200 mg PO BID 01/20/20 Atorvastatin Calcium [Lipitor] 1 tab PO BEDTIME #30 tab 01/25/20 Aspirin [Aspirin EC] 1 tab PO DAILY 12/11/20 Lisinopril [Zestril] 1 tab PO DAILY 12/11/20 Metoprolol Tartrate 1 tab PO BID 12/11/20 Eszopiclone [Lunesta] 3 mg PO BEDTIME 03/02/21 Ferrous Sulfate [Iron] 1 tab PO DAILY 03/02/21 Magnesium Chloride [Magnesium] 1 tab PO DAILY 03/02/21 Promethazine HCl 25 mg PO BID 03/02/21 Isosorbide Mononitrate [Isosorbide Mononitrate ER] 30 mg PO DAILY #30 tab.er.24h 04/06/21 New Medications: Isosorbide Mononitrate [Isosorbide Mononitrate ER] 30 mg PO DAILY #30 tab.er.24h Physician Discharge Instructions: Follow up with cardiology in 1 week. Diet: AHA Activity: Ad tiarra Followup: Bora Soto MD [ACTIVE - CAN ADMIT] -
--- NOTE | 2021-04-07 22:31 | CON ---
Date of Consultation: 04/06/2021 She was admitted back to Dr. Bell on 04/05/2021. I saw the patient on 04/06/2021. Reason For Consultation: [id number] myocardial infarction. History Of Present Illness: Ms. Whyte is 55 years old, has a history of CAD, status post stent; has a history of DVTs, CVA, anxiety, seizure, hypertension, congestive heart failure and dyslipidemia an d thrombocytopenia. Came in with chest pain, elevated troponin, platelet count of 55,000. She had a negative chest x-ray. EKG showed chronic left bundle-branch block. No acute changes. Chest x-ray was negative. She had a low potassium. Her troponin was 0.31. Her triglyceride was 354. Past Medical History: As stated above. Allergies: SHE IS ALLERGIC TO COMPAZINE, DEMEROL, MORPHINE, NEURONTIN, NONSTEROIDAL ANTI-INFLAMMATOR Y AGENT, TORADOL, AND STADOL. Review of Systems: Negative. Social History: Positive for tobacco. Family History: Noncontributory. Medications: At home include inhalers, aspirin, Lipitor, Imdur, lisinopril and metoprolol. Physical Examination: Vital Signs: Stable, afebrile. HEENT: Negative. Neck: Supple with no bruits. Chest: Clear. Cardiac: Revealed a regular rhythm and rate. No murmurs, gallops, or rubs. Abdomen: Benign. Extremities: Revealed no clubbing, cyanosis, or edema. Diagnostic Data: As stated earlier. Impression And Plan: [id number] myocardial infarction in the patient with low platelets. She is not a candidate for heart catheterization. I would increase her Imdur, continue her aspirin, cont inue her Lipitor, continue her metoprolol, maybe increase her metoprolol dose as well. Her thrombocy topenia needs to be addressed and she needs to see a line servicer and have a hematologic workup befor e we perform a catheterization. Her other problems including history of DVT, CVA, anxiety, seizure, CHF, hypertension, dyslipidemia are well controlled. I am comfortable with her going home. She is p ain-free. The case was discussed with the admitting physician. I had asked her to come see me in e office in the next week or 2. NB/MODL Voice ID: [id number] Report ID: [id number]
== END 2021-04-06 14:24 | disposition home or self-care (01) ==
LOC: ER 18:25 → ERHOLD 20:31 → INTOOBSV 20:31 → ERHOLD 04-06 00:45
PROVIDERS: ADMIT Internal Medicine Nephrology; ATTEND Internal Medicine Nephrology
DX: I21.4 Non-ST elevation (NSTEMI) myocardial infarction (principal); I25.10 Atherosclerotic heart disease of native coronary artery without angina pectoris; I11.0 Hypertensive heart disease with heart failure; I50.9 Heart failure, unspecified; D69.6 Thrombocytopenia, unspecified; E78.5 Hyperlipidemia, unspecified; I25.2 Old myocardial infarction; K21.9 Gastro-esophageal reflux disease without esophagitis; E87.6 Hypokalemia; I44.7 Left bundle-branch block, unspecified; F41.9 Anxiety disorder, unspecified; F32.9 Major depressive disorder, single episode, unspecified; D68.61 Antiphospholipid syndrome; G89.29 Other chronic pain; G43.109 Migraine with aura, not intractable, without status migrainosus; R56.9 Unspecified convulsions; G47.00 Insomnia, unspecified; E78.00 Pure hypercholesterolemia, unspecified; Z20.822 Contact with and (suspected) exposure to COVID-19; Z87.891 Personal history of nicotine dependence; Z79.82 Long term (current) use of aspirin; Z79.899 Other long term (current) drug therapy; Z88.6 Allergy status to analgesic agent; Z88.8 Allergy status to other drugs, medicaments and biological substances; Z95.1 Presence of aortocoronary bypass graft; Z95.5 Presence of coronary angioplasty implant and graft; Z86.73 Personal history of transient ischemic attack (TIA), and cerebral infarction without residual deficits; Z86.718 Personal history of other venous thrombosis and embolism; Z90.49 Acquired absence of other specified parts of digestive tract; Z90.710 Acquired absence of both cervix and uterus; Z90.721 Acquired absence of ovaries, unilateral; Z82.49 Family history of ischemic heart disease and other diseases of the circulatory system; Z83.3 Family history of diabetes mellitus; Z82.3 Family history of stroke
CPT/HCPCS: 93005; 85025 ×2; 80048; 36415; 83735 ×2; 84132; 85610; 80061; 80076; 84443; 84484 ×3; 84439; 80053; 83880; 71045; 96375; 96372; 96374; 99285; U0003; J2550 ×2; J3010 ×4; J2405; G0378 ×3

== ENCOUNTER 2021-08-19 16:55 | Inpatient (IN) | payer OTHER ==
--- OUTSIDE RECORDS SUMMARY | 2021-08-19 17:08 | XMS REPORT | Continuity of Care Document ---
:1965 Author Organization [facility] t Address [address] [place] [address] Care Team Providers Name Role Phone THOMAS LLANES Primary Care Physician Unavailable BEATRIZ Attending Clinician Unavailable FLOYD, K.H. Attending Clinician Unavailable Pob, Lab Main Attending Clinician Unavailable Floyd ANDERSON, K.H. Attending Clinician Doctor Unassigned, Name Attending Clinician Unavailable Payers Payer Name Policy Type Policy Number Effective Date Expiration Date lori [facility] [id number] 2013 2024 MEDICAID 00:00:00 00:00:00 STAR+PLUS Advance Directives Directive Decision Effective Termination Comments Source Date Date Healthcare Agents on N/A [facility] FileNameRelationshipHealthcare [facility] Agent Medical RelationshipCommunicationFrank E Branch [facility] Care [phone] (Mobile) [email or web address] Problems Condition Condition Condition Status Onset Resolution Last Treating Co mments Source Name Details Category Date Date Treatment Clinician Date PAF PAF Disease Active 2020-08 Univers (paroxysma (paroxysma 0-26 it y of l atrial l atrial 00:00: [place] fibrillati fibrillati 00 Me dical on) on) Branch Dyslipidem Dyslipidem Disease Active 2020-08 U nivers ia ia 0-26 ity of 00:00: [place] 00 Medical Branch Hypercoagu Hypercoagu Disease Active 2020-08 U nivers lation lation 0-26 ity of syndrome syndrome 00:00: [place] [facility] Complicate Complicate Disease Active U nivers d migraine d migraine 4-28 it y of 00:00: [place] 00 Medical Branch Thrombocyt Thrombocyt Disease Active U nivers openia openia 3-24 ity of 00:00: [place] 00 Medical Branch GIB GIB Disease Active 2019-08 Univers (gastroint (gastroint 1-24 it y of estinal estinal 00:00: [place] bleeding) bleeding) 00 Medi see Branch Generalize Generalize Disease Active 2019-08 U nivers d d 1-24 ity of abdominal abdominal 00:[place] pain pain 00 [place] Weakness Weakness Disease Active Unive rs 5-09 ity of 00:00: [place] 00 Medical Branch Pericardia Pericardia Disease Active 2019- U nivers l effusion l effusion 3-09 it y of 00:00: [place] 00 Medical Branch Arm DVT Arm DVT Disease Active 2019- Univers (deep (deep 3-09 ity of venous venous 00:00: [place] thromboemb thromboemb 00 Me dical olism), olism), Branch acute, acute, left left Chest pain Chest pain Disease Active 2020- U nivers 3-08 ity of 00:00: [place] 00 Medical Branch NSTEMI NSTEMI Disease Active 2020- Univers (non-ST (non-ST 2-23 ity of elevated elevated 00:00: [place] myocardial myocardial 00 Me dical infarction infarction Br anch ) ) Left sided Left sided Disease Active 2020- U nivers numbness numbness 1-17 ity of 00:00: [place] 00 Medical Branch S/P CABG S/P CABG Disease Active 2018-08 Unive rs (coronary (coronary 1-13 ity of artery artery 00:00: [place] bypass bypass 00 Medical graft) graft) Branch Leukocytos Leukocytos Disease Active 2018-08 U nivers is is 0-30 ity of 00:00: [place] 00 Medical Branch Tachycardi Tachycardi Disease Active 2018-08 U nivers a a 0-29 ity of 00:00: [place] [facility] Coronary Coronary Disease Active 2018-08 Overview: Un tan artery artery 0-22 Formattin ity of disease disease 00:00: g of this [place] involving involving 00 note Medi see [place] might be Branch coronary coronary different artery of artery of from the [place] original. heart with heart with Added angina angina automatic pectoris pectoris ally from request for surgery [id number] Sepsis Sepsis Disease Active Univers 9-16 ity of 00:00: [place] 00 Medical Branch Obesity Obesity Disease Active Univers (BMI (BMI 9-16 ity of 30-39.9) 30-39.9) 00:00: [place] 00 Medical Branch Other Other Disease Active Univers chest pain chest pain 9-16 it y of 00:00: [place] [facility] Septic Septic Disease Active Univers shock shock 9-16 ity of 00:00: [place] [facility] Troponin I Troponin I Disease Active U nivers above above 9-16 ity of reference reference 00:00[place] range range 00 [place] STROKE Diagnosis Active 2019-03-09 Mem oria 7 16:26:00 l STROKE 00:00: [place] 00 Active 03/09/2019 [facility] DYSPNEA Diagnosis Active 2019-03-15 Me moria 7 15:12:00 l DYSPNEA 00:00: [place] 00 Active 03/09/2019 [facility] ISADORA (acute ISADORA (acute Disease Active U nivers kidney kidney 08 ity of injury) injury) 00:00: [place] 00 Medical Branch 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 2011 Right Right Disease Active Overview: Univer s ovarian ovarian 12-22 Formattin ity o f cyst cyst 00:00: g of this [place] 00 note Medical might be Branch different from the original. 12/02/18 - CT scan revealed a 2 cm right ovarian cyst Hypotensio Hypotensio Disease Active U nivers n n 5-07 ity of 00:00: [place] 00 Medical Branch Essential Essential Disease Active Uni vers hypertensi hypertensi 4-23 it y of on on 00:00: Medical Branch History of History of Disease Active U nivers arterial arterial 4-23 ity of ischemic ischemic 00:00: [place] stroke stroke 00 Medical Branch Hypokalemi Hypokalemi Disease Active U nivers a a 4-23 ity of 00:00: [place] [facility] Abnormal Abnormal Disease Active Unive rs albumin albumin 4-23 ity of 00:00: [place] [facility] Abnormal Abnormal Disease Active Unive rs liver liver 4-23 ity of function function 00:00: [place] [facility] Other Other Disease Active Univers hyperlipid hyperlipid 4-23 it y of emia emia 00:00: [place] 00 Medical Branch Anasarca Anasarca Disease Active Unive rs 4-22 ity of 00:00: [place] [facility] Chronic Chronic Disease Active Univers diastolic diastolic 4-22 ity of HF (heart HF (heart 00:00: [place] failure) failure) 00 Medica l Branch Morbid Morbid Disease Active Univers obesity obesity 4-22 ity of with body with body 00:00[place] mass index mass index 00 Me dical of of Branch 40.0-49.9 40.0-49.9 ENCEPHALIT Diagnosis Active 2015-03-23 Memoria IS/SEIZURE 03-16 15:07:00 l S 00:00: [place] ENCEPHALIT 00 IS/SEIZURE S Active 03/16/2015 [facility] NON-HEMORR Diagnosis Active 2014-11-01 Memoria AGHIC 10-25 15:25:00 l STROKE 00:00: [place] NON-HEMORR 00 AGHIC STROKE Active 10/25/2014 [facility] ISCHEMIC Diagnosis Active 2013-11-13 M emoria CVA 11-12 04:08:00 l ISCHEMIC 00:00: Enrique n CVA 00 Active 11/12/2013 [facility] WEAKNESS Diagnosis Active 2013-11-26 M emoria 11-12 21:50:00 l WEAKNESS 00:00: [place] n 00 Active 11/12/2013 [facility] AMS Diagnosis Active 2013-06-01 Mem oria 05-08 21:46:00 l AMS 00:00: [place] 00 Active 05/08/2013 [facility] CEREBRAL Diagnosis Active 2011-082012-07-24 M emoria VASCULAR 09-19 23:24:00 l ACCIDENT CEREBRAL 00:00: [place] VASCULAR 00 ACCIDENT Active 07/19/2012 [facility] Anxiety Problem Resolve 2019-03-14 Mem oria (finding) d 22:30:17 l Anxiety [place] (finding) Resolved Problem 03/14/2019 [facility] Transient Problem Resolve 2019-03-14 M emoria ischemic d 22:30:17 l attack [place] (disorder) Transient ischemic attack (disorder) Resolved Problem 03/14/2019 [facility] Gastroesop Problem Resolve 2019-03-14 Memoria hageal d 22:30:17 l reflux [place] disease Gastroesop (disorder) hageal reflux disease (disorder) Resolved Problem 03/14/2019 [facility] Nausea Problem Resolve 2019-03-14 Mike sujey (finding) d 22:30:17 l Nausea [place] (finding) Resolved Problem 03/14/2019 [facility] Anxiety Problem Active 2013-05-14 Mike sujey 21:29:09 l Anxiety [place] Active Problem 05/14/2013 [facility] COPD Problem Active 2013-05-14 Memor ia 21:29:09 l COPD [place] Active Problem 05/14/2013 [facility] Depression Problem Active 2013-05-14 M emoria 21:29:09 l [place] Depression Active Problem 05/14/2013 [facility] General Problem Active 2013-05-14 Mike sujey weakness 21:29:09 l General [place] weakness Active Problem 05/14/2013 [facility] Hypertensi Problem Active 2013-05-14 M emoria on 21:29:09 l [place] Hypertensi on Active Problem 3 [facility] Migraine Problem Active 2013-05-14 Mem oria 21:29:09 l Migraine Enrique n Active Problem 05/14/2013 [facility] Stroke Problem Active 2013-05-14 Memor ia 21:29:09 l Stroke [place] Active Problem 05/14/2013 [facility] Chronic Problem Active 2019-03-14 Mike sujey obstructiv 22:30:17 l e lung Chronic [place] disease obstructiv (disorder) e lung disease (disorder) Active Problem 03/14/2019 [facility] Cerebrovas Problem Active 2019-03-14 M emoria cular 22:30:17 l accident [place] (disorder) Cerebrovas cular accident (disorder) Active Problem 03/14/2019 [facility] Depression Problem Active 2015-03-25 M emoria - motion 01:09:45 l (qualifier Enrique n value) Depression - motion (qualifier value) Active Problem 03/25/2015 [facility] Hypertensi Problem Active 2019-03-14 M emoria ve 22:30:17 l disorder, [place] systemic Hypertensi arterial ve (disorder) disorder, systemic arterial (disorder) Active Problem 03/14/2019 [facility] Migraine Problem Active 2019-03-14 Mem oria (disorder) 22:30:17 l Migraine Enrique n (disorder) Active Problem 03/14/2019 [facility] Morbid Problem Active 2019-03-14 Memor ia obesity 22:30:17 l (disorder) Morbid [place] obesity (disorder) Active Problem 03/14/2019 [facility] DYSPNEA, Diagnosis Active 2019-03-15 M emoria UNSPECIFIE 15:12:00 l D DYSPNEA, Enrique n UNSPECIFIE D Active [facility] CVA Diagnosis Active 2014-11-01 Mem oria 15:25:00 l CVA [place] Active [facility] ALTERED Diagnosis Active 2013-06-01 Me moria MENTAL 21:46:00 l STATUS ALTERED [place] MENTAL STATUS Active [facility] MALAISE Diagnosis Active 2013-11-26 Me moria AND 21:50:00 l FATIGUE MALAISE Enrique n NEC AND FATIGUE NEC Active [facility] FEBRILE Diagnosis Active 2015-03-23 Me moria CONVULSION 15:07:00 l S NOS FEBRILE [place] CONVULSION S NOS Active [facility] 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, is, [facility]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 [facility] Adult BMI Adult BMI Diagnosis Active [facility] 40.0-44.9 40.0-44.9 Luke s - kg/sq m kg/sq m Memoria l [facility] Depression Depression Problem Active [facility] with with [facility] - anxiety anxiety Memoria l [facility] Left Left Problem Active [facility] hemiparesi hemiparesi [facility] [facility] Obstructiv Obstructiv Problem Active [facility] e sleep e sleep [facility] - apnea apnea Memoria l [facility] 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 l [facility] 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 Memori a l [facility] History of History of Problem Active [facility] cerebrovas cerebrovas Mora kes - cular cular Memoria accident [facility] current current ent residual residual Clinic s effects effects Hyperlipem Hyperlipem Problem Active [facility] ia, mixed ia, mixed Luke s - Memoria l [facility] Migraine Migraine Problem Active [facility] Peripheral Peripheral Problem Active [facility] vascular vascular [facility] disease disease [facility] GERD GERD Diagnosis Active [facility] without without [facility]ukes - esophagiti esophagiti Me moria s s l [facility] S/P CABG x S/P CABG x Problem Active [facility] 1 1 [facility] - Mem[facility] l [facility] Chronic Chronic Problem Active [facility] systolic systolic [facility] - heart heart Memoria failure failure l [facility] Benign Benign Problem Active [facility] essential essential Luke s - HTN HTN Memoria l [facility] Obesity Obesity Problem Active [facility] Mem[facility] l [facility] Cough Cough Problem Active [facility] Anticoagul Anticoagul Problem Active [facility] ated ated [facility] - [facility] l [facility] Chronic Chronic Problem Active [facility] back pain back pain Luke s - Memoria l [facility] Stented Stented Problem Active [facility] coronary coronary [facility] - artery artery Memoria l [facility] History of History of Problem Active [facility] non-ST non-ST [facility] - elevation elevation Mike suj[place] myocardial myocardial l infarction infarction Ou tpati (NSTEMI) (NSTEMI) ent Clinics Coronary Coronary Problem Active [facility] t artery artery [facility] - disease of disease of Me moria bypass bypass l graft of graft of Outpat i [place] ent heart with heart with Cl inics stable stable angina angina pectoris pectoris Coronary Coronary Problem Active [facility] t artery artery [facility] - disease disease Memoria involving involving l [place] Outpati coronary coronary ent artery of artery of Clin ics [place] heart with heart with angina angina pectoris pectoris Allergies, Adverse Reactions, Alerts Allergy Allergy Status Severity Reaction(s) Onset Inactive Treating Comm ents Source Name Type Date Date Clinician Gabapent Propensi Active Hives 2019-08 Univer s in ty to 09-10 ity of adverse 00:00: [place] reaction 00 Medical s Branch Nsaids Propensi Active Nausea 2019-08 Was told Univer s (Non-Sergio ty to and/or 09-10 to avoid ity of roidal adverse Vomiting 00:00: because [place] Anti-Inf reaction 00 it would Medi see lammator s irritate Branch y Drug) her stomach Butorpha Propensi Active Unknown - 2019-08 Uni vers nol ty to See comments 09-10 ity of adverse 00:00: [place] reaction Medical s Branch Ketorola Propensi Active Nausea 2019-08 Was told Univ ers c ty to and/or 09-10 to avoid ity of adverse Vomiting 00:00: because [place] reaction 00 it would Medica l s irritate Branch her stomach GABAPENT DRUG Active Hives 2019-08 Univers IN INGREDI 09-10 ity of 00:00: [place] 00 Medical Branch NSAIDS Drug Active N/V 2019-08 Univers (NON-SERGIO Class 09-10 ity of ROIDAL 00:00: [place] ANTI-INF 00 Medical LAMMATOR Branch Y DRUG) BUTORPHA DRUG Active Unknown-Cmnt 2019-08 Un tan NOL INGREDI 09-10 ity of 00:00: [place] 00 Medical Branch KETOROLA DRUG Active N/V 2019-08 Univers C INGREDI 09-10 ity of 00:00: [place] 00 Medical Branch Nsaids Propensi Active Nausea 2014-08 Univers (Non-Sergio ty to and/or 0-29 ity of roidal adverse Vomiting 00:00: [place] Anti-Inf reaction 00 Medica l lammator s Branch y Drug) NSAIDS Drug Active N/V 2014-08 Univers (NON-SERGIO Class 0-29 ity of ROIDAL 00:00: [place] ANTI-INF 00 Medical LAMMATOR Branch Y DRUG) Gabapent Propensi Active Unknown - 0 Blurred Un tan in ty to See comments 5-17 vision ity of adverse 00:00: [place] reaction 00 Medical s Branch GABAPENT DRUG Active Unknown-Cmnt 0 Un tan IN INGREDI 5-17 ity of 00:00: [place] 00 Medical Branch Prochlor Propensi Active Nausea 2005-0 Univer s perazine ty to and/or 04 ity of Edisylat adverse Vomiting 00:00: [place] e reaction 00 Medical s Branch Divalpro Propensi Active Anxiety 2005-0 Unive rs ex ty to 08-21 ity of Sodium adverse 00:00: [place] reaction 00 Medical s Branch Butorpha Propensi Active Rash 2005-0 Univer s nol ty to 08-21 ity of Tartrate adverse 00:00: [place] reaction 00 Medical s Branch Ketorola Propensi Active Rash 2005-0 Univer s c ty to 04 ity of Trometha adverse 00:00: [place] mine reaction 00 Medical s Branch PROCHLOR DRUG Active N/V 2005-0 Univers PERAZINE INGREDI -04 ity of EDISYLAT 00:00: [place] E 00 Medical Branch DIVALPRO DRUG Active Anxiety 2005-0 Univers EX INGREDI 04 ity of SODIUM 00:00: [place] 00 Medical Branch BUTORPHA DRUG Active Rash 2005-0 Univers NOL INGREDI -04 ity of TARTRATE 00:00: [place] 00 Medical Branch KETOROLA DRUG Active Rash 2005-0 Univers C INGREDI -04 ity of TROMETHA 00:00: [place] MINE 00 Medical Branch Toradol Adverse Active Info Not [facility] Reaction Available [facility] Out[facility] Clinics Stadol Adverse Active Info Not [...] - Sodium Memoria l Outpati ent Clinics NSAIDs NSAIDs Active Memoria l [place] Stadol Stadol Active Memoria rudy [place] Toradol Toradol Active Memoria l [place] Vicoprof Vicoprof Active Memori a en en l [place] Compazin Compazin Active Memori a e e l [place] Depakote Depakote Active Memori a l [place] labetalo labetalo Active Memori a l l l [place] Social History Social Habit Start Date Stop Date Quantity Comments Source History of tobacco Cigarette Smoker University of use [facility] Exposure to Not sure University of SARS-CoV-2 (event) [facility] Alcohol intake 2021-07-04 2021-07-04 0 /d [facility] 00:00:00 00:00:00 [facility] Cigarettes smoked 2020-07-11 2020-07-11 Univers ity of current (pack per 00:00:00 00:00:00 [facility] ) - Reported [place] Cigarette 2020-07-11 2020-07-11 University of pack-years 00:00:00 00:00:00 [facility] Tobacco use and 2020-07-11 2020-07-11 Never used Universit y of exposure 00:00:00 00:00:00 [facility] History SDOH 2019-10-25 2019-10-25 2 University o f Financial 00:00:00 00:00:00 [facility] Education 2019-10-10 2019-10-10 14 [place] of 00:00:00 00:00:00 [facility] History SDVT Food 2019-10-10 2019-10-10 2 Univers ity of Worry 00:00:00 00:00:00 [facility] History SDVT Food 2019-10-10 2019-10-10 2 Univers ity of Scarcity 00:00:00 00:00:00 [facility] Branch History SDOH 2019-10-10 2019-10-10 2 University o f Transport Med 00:00:00 00:00:00 [facility] Branch History SDVT 2019-10-10 2019-10-10 2 University o f Transport Non-Med 00:00:00 00:00:00 [facility] Social History 2015-03[facility]17 [facility] 07[facility]18:[facility] Sex [birth year] Universit y of 00:00:00 00:00:00 [facility] Smoking Status Start Date Stop Date Source Former smoker 2020-07-11 00:00:00 2020-07-11 00:00:00 [facility] Medications Ordered Filled Start Stop Current Ordering Indication Dosage Frequency Signature Comments Components Source Medication Medication Date Date Medication? Clinician (SIG) Name Name ZETIA 10 mg 2020-08 Yes 10mg Take 1 Univ ers tablet 2-02 tablet by ity of 00:00: mouth [place] 00 daily. Medical Branch ZETIA 10 mg 2020-08 Yes 10mg Take 1 Univ ers tablet 2-02 tablet by ity of 00:00: mouth [place] 00 daily. Medical Branch furosemide 2020-08 Yes 40mg Take 40 mg U nivers 40 mg 1-17 by mouth ity of tablet 11:28: every 24 [place] 03 (twenty-fo Medical ur) hours Branch as needed (edema). furosemide 2020-08 Yes 40mg Take 40 mg U nivers 40 mg 1-17 by mouth ity of tablet 11:28: every 24 [place] 03 (twenty-fo Medical ur) hours Branch as needed (edema). aspirin 81 2020-08 Yes 81mg Take 81 mg U nivers mg EC 1-17 by mouth ity of tablet 11:27: daily. [address] aspirin 81 2020-08 Yes 81mg Take 81 mg U nivers mg EC 1-17 by mouth ity of tablet 11:27: daily. [address] atorvastati 2020-08- Yes [id number] 80mg Take 1 Univers n 80 mg 09-0316 tablet by ity of tablet 00:00: 05:59 mouth at [place] 00 :00 bedtime Medical for 90 Branch days. metoprolol 2020-08- Yes 50mg Take 1 Univ ers tartrate 50 09-03-16 tablet by it y of mg tablet 00:00: 05:59 mouth 2 [place] 00 :[place] (two) Medical times [place] daily for 90 days. isosorbide 2020-08- Yes [id number] 30mg Take 1 Univers mononitrate 09-03-16 tablet by it y of 30 mg 24 hr 00:00: 05:59 mouth 2 [place] tablet 00 :00 (two) Medical times [place] daily for 90 days. atorvastati 2020-08- Yes [id number] 80mg Take 1 Univers n 80 mg 09-03 tablet by ity of tablet 00:00: 05:59 mouth at [place] 00 :00 bedtime Medical for 90 Branch days. metoprolol 2020-08- Yes 50mg Take 1 Univ ers tartrate 50 09-03 tablet by it y of mg tablet 00:00: 05:59 mouth 2 [place] 00 :00 (two) Medical times Branch daily for 90 days. isosorbide 2020-08- Yes [id number] 30mg Take 1 Univers mononitrate 09-03 tablet by it y of 30 mg 24 hr 00:00: 05:59 mouth 2 [place] tablet 00 :00 (two) Medical times Branch daily for 90 days. ezetimibe 2020-08- No 10mg Take 1 Unive rs 10 mg 09-03 tablet by ity of tablet 00:00: 00:00 mouth [place] 00 :00 daily for Medical 90 days. Branch buPROPion 2020-08 Yes 200mg Take 200 Uni vers 200 mg 12 1-09 mg by ity of hr tablet 14:53: mouth 2 [place] 13 (two) Medical times Branch daily. methocarbam 2020-08 Yes 500mg Take 500 U nivers oL 750 mg 1-09 mg by ity of tablet 14:53: mouth 2 [place] 13 (two) Medical times Branch daily. SERTraline 2020-08 Yes 100mg Take 100 Un tan 100 mg 1-09 mg by ity of tablet 14:53: mouth [place] 13 daily. Medical Branch topiramate 2020-08 Yes 50mg Take 50 mg U nivers 25 mg Cp24 -09 by mouth 2 ity of 14:53: (two) [place] 13 times Medical daily. Branch acetaminoph 2020-08 Yes Take by Un tan en with 1-09 mouth ity of codeine 14:53: every 6 [place] (TYLENOL-CO 13 (six) Medical DEINE #3 hours as Branch ORAL) needed (back pain). buPROPion 2020-08 Yes 200mg Take 200 Uni vers 200 mg 12 1-09 mg by ity of hr tablet 14:53: mouth 2 [place] 13 (two) Medical times Branch daily. methocarbam 2020-08 Yes 500mg Take 500 U nivers oL 750 mg 1-09 mg by ity of tablet 14:53: mouth 2 [place] 13 (two) Medical times Branch daily. SERTraline 2020-08 Yes 100mg Take 100 Un tan 100 mg 1-09 mg by ity of tablet 14:53: mouth [place] 13 daily. Medical Branch topiramate 2020-08 Yes 50mg Take 50 mg U nivers 25 mg Cp24 -09 by mouth 2 ity of 14:53: (two) [place] 13 times Medical daily. Branch acetaminoph 2020-08 Yes Take by Un tan en with -09 mouth ity of codeine 14:53: every 6 [place] (TYLENOL-CO 13 (six) Medical DEINE #3 hours as Branch ORAL) needed (back pain). warfarin 5 2020-08 Yes 5mg Take 1 Unive rs mg tablet 1-05 tablet by ity o f 00:00: mouth [place] 00 every Medical evening. Branch warfarin 5 2020-08 Yes 5mg Take 1 Unive rs mg tablet 1-05 tablet by ity o f 00:00: mouth [place] 00 every Medical evening. Branch foLIC acid 2020-08- Yes [id number] 1mg Take 1 Univers 1 mg tablet 08-20 12-04 tablet by it y of 00:00: 05:59 mouth [place] 00 :00 daily for Medical 30 days. Branch budesonide- 2020-08- Yes [id number] 2{puff} Inhale 2 Univers formoteroL -02 12-03 Puffs 2 ity o f 160-4.5 00:00: 05:59 (two) [place] mcg/actuati 00 :00 times Medical on inhaler daily for Bran ch 30 days. loratadine Yes [id number] 10mg Take 1 Univers 10 mg 9-13 tablet by ity of tablet 00:00: mouth [place] 00 daily. Medical Branch albuterol Yes [id number] 2{puff} Inhale 2 Univers 90 9-13 Puffs ity of mcg/actuati 00:00: every 4 [place] as on inhaler 00 (four) Medical hours as Branch needed for Wheezing or Shortness of Breath. loratadine Yes [id number] 10mg Take 1 Univers 10 mg 9-13 tablet by ity of tablet 00:00: mouth [place] 00 daily. Medical Branch albuterol Yes [id number] 2{puff} Inhale 2 [facility] 90 9-13 Puffs ity of mcg/actuati 00:00: every 4 Tommy as on inhaler 00 (four) Medical hours as Branch needed for Wheezing or Shortness of Breath. nitroglycer Yes .4mg Place 1 Uni vers in 0.4 mg 8-23 tablet ity of sublingual 00:00: under the [place] tablet 00 tongue Medical every 5 Branch (five) minutes as needed for Chest pain. nitroglycer Yes .4mg Place 1 Uni vers in 0.4 mg 8-23 tablet ity of sublingual 00:00: under the [place] tablet 00 tongue Medical every 5 Branch (five) minutes as needed for Chest pain. proMETHazin Yes [id number] 25mg Take 1 Univers e 25 mg 5-11 tablet by ity of tablet 00:00: mouth every 8 Medical (eight) Branch hours as needed for Nausea and Vomiting (N/V). proMETHazin Yes [id number] 25mg Take 1 [facility] e 25 mg 5-11 tablet by ity of tablet 00:00: mouth every 8 Medical (eight) Branch hours as needed for Nausea and Vomiting (N/V). KLOR-CON Yes [id number] TAKE ONE U nivers M20 20 mEq 4-12 TABLET BY ity of tablet 00:00: MOUTH DAILY WITH Medical LASIX Branch NEEDED KLOR-CON Yes [id number] TAKE ONE U nivers M20 20 mEq 4-12 TABLET BY ity of tablet 00:00: MOUTH DAILY WITH Medical LASIX Branch NEEDED Omeprazole Omeprazole 2019-0 Yes James [address] [facility] 8[facility]11 [place] [facility] minutes [facility]: before [facility] 00 morning [facility] LORazepam 2 2019-0 Yes 2mg Take 1 Univ ers mg tablet 2-27 tablet by ity o f 00:00: mouth (two) Medical times Branch daily. LORazepam 2 2019- Yes 2mg Take 1 Univ ers mg tablet 2-27 tablet by ity o f 00:00: mouth (two) Medical times Branch daily. lisinopril Yes 10 mg = 1 Me [...] PO, l oral tablet 17:55: Bedtime, # [place] 00 30 tab, 0 Refill(s) LORazepam 2 [...] Refill(s) Potassium No Notes: Memori a Chloride -26 (Same as: l 14:30: K-Dur 20) [place] 00 "Do Not Crush" Give with food and full glass of water For patients unable to swallow tablet, dissolve in one half glass of water. Allow about 2 minutes for the tablets to disintegra te. Stir before giving to prepare slurry and administer . Please exclude Patient s with feeding tube less than 14 [place] (Dobhoff, J-tube etc) and pediatric and patients. [...] s with feeding tube less than 14 [place] (Dobhoff, J-tube etc) and pediatric and patients. potassium No Notes: Memori a chloride 7-25 (Same as: l 14:30: Potassium [place] 00 Chloride) Sertraline No Notes: Memor ia 7-25 (Same as: l 14:00: Zoloft) [place] Topamax No Notes: Memoria 7-25 (Same As: l 14:00: Topamax) "Do Not Crush" Potassium No 20 mEq, Memor ia Chloride 725 Route: PO, l 13:46: ONCE, Dosing Weight 99.318, kg, Start date: 03/11/19 8:46:00 CDT, Stop date: 03/11/19 8:46:00 CDT Calcium No Notes: Memoria Gluconate 03-11 WASTE: F/P l 12:23: - Sink; E - [facility] Trash Bin Potassium No Notes: Memori a Chloride 7-25 (Same as: l 1.33 MEQ/ML 11:10: Potassium H ermann Oral Chloride) Solution Melatonin 3 No Notes: Mike sujey MG Extended -25 (Same as: l Release 02:00: Melatonin) Herm tni Tablet 00 atorvastati No Notes: Mike sujey n 7-25 Same as l 02:00: Lipitor [place] Lisinopril No Notes: Memor ia 7-24 (Same as: l 22:38: Prinivil, [place] 00 Zestril) heparin No Notes: Memoria 7-24 porcine l 21:00: heparin [place] potassium No Notes: Memori a phosphate + 7-24 (Same as: l Sodium 20:30: K [place] Chloride 00 Phosphate. 0.9% IV 250 ) [...] 7-24 (Same As: l 13:00: Spiriva) Triazolam 2019-0 No 0.25 mg, Mike sujey 7-24 PO, l 05:36: Bedtime, 0 Refill(s) aripiprazol No 5 mg = 1 Me moria e 5 MG Oral 7-24 tab, PO, l Tablet 05:36: Daily, # [place] [Mariah] 00 30 tab, 0 Refill(s) Lorazepam No Notes: Memori a 7-24 (Same as: l 05:32: Ativan) Albuterol No Notes: Memori a 0.833 MG/ML -24 (Same as: l / 05:10: Duoneb) Ipratropium Ensign 0.167 MG/ML Inhalant Solution Potassium No Notes: Memori a Chloride -24 (Same as: l 05:00: KCL) Infuse no faster than 10 mEq/hr if given peripheral ly. Acetaminoph No 100.4 F, M emoria en 03-10 Start l 03:02: date: 03/09/19 22:02:00 CDT, [...] 03-10 Route: IM, l 03:02: Drug form: PDR/INJ, PRN, Dosing Weight 97.5, kg, PRN Blood Glucose Results, Start date: 03/09/19 22:02:00 CDT, Duration: 30 day, Stop date: 04/08/19 22:01:00 CDT, 0 Iohexol 2018- No 100 mL, Memoria 03-10 Route: l 00:24: IVP, Drug [place] 00 Form: SOLN, Dosing Weight 97.5, kg, ONCALL, STAT, Start date: 03/09/19 19:24:00 CDT, Duration: 1 doses or times, Dose = 2.2ml/kg, Max dose = 100ml -- "To be infused by Radiology Staff ONLY" Iohexol 2018- No 82 mL, Memoria 03-10 Route: l 00:06: IVP, Drug [place] 00 Form: SOLN, Dosing Weight 97.5, kg, ONCALL, STAT, Start date: 03/09/19 19:06:00 CDT, Duration: 1 doses or times, Dose = 2.2ml/kg, Max dose = 100ml -- "To be infused by Radiology Staff ONLY" heparin No Notes: Memoria additive 03-09 Total l 25,000 unit 23:37: Concentrat [place] [12 00 ion = 50 unit/kg/hr] unit/mL; + Premix Total Diluent volume = Sodium 500 mL Chloride Send Med 0.45% 500 Request 2 mL hours prior to next bag Heparin 30 No Route: Memor ia unit/kg 7- IVP, PRN, l Bolus 23:37: 2,300 [place] (Heparin 00 unit, 2.3 Dosing mL, Drug Weight) form: INJ, PRN, Heparin Protocol, Start date: 03/09/19 18:37:00 CDT Stop date: 04/08/19 18:36:00 CDT, 30 day, 0 Heparin - No 4,000 Memoria one time 7-23 unit, 4 l bolus for 23:37: mL, Route: He rmann ACS 00 IVP, Drug form: INJ, ONCE, Dosing Weight 97.5, kg, Priority: STAT, Start date: 03/09/19 18:37:00 CDT, Stop date: 03/09/19 18:37:00 CDT, 0 Heparin 60 No Route: Memor ia unit/kg 7-23 IVP, PRN, l Bolus 23:37: 4,600 [place] (Heparin 00 unit, 4.6 Dosing mL, Drug Weight) form: INJ, PRN, Heparin Protocol, Start date: 03/09/19 18:37:00 CDT Stop date: 04/08/19 18:36:00 CDT, 30 day, 0 Plavix No Notes: Memoria 03-09 (Same as: l 23:09: Plavix) Magnesium No Notes: Memori a Sulfate 03-09 WASTE: F/P l 22:41: - Sink; E - [facility] Trash Bin potassium No 40 mEq, 2 Mem oria chloride 20 03-09 tab, l mEq oral 22:41: Route: PO, [place] tablet, 00 Drug form: extended ERTAB, release ONCE, Dosing Weight 97.5, kg, Priority: STAT, Start date: 03/09/19 17:41:00 CDT, Stop date: 03/09/19 17:41:00 CDT, 0 Isolyte S No Notes: Memori a PH-7.4 03-09 (Same as: l (Bolus) IV 22:38: Isolyte S He PH 7.4) Acetaminoph No Notes: Do M emoria en 03-22 not exceed l 20:05: 4 gm/day. (Same as: Tylenol) rivaroxaban Yes 20 mg = 1 M emoria 20 MG Oral 03-22 tab, PO, l Tablet 19:41: QPM, # 30 Enrique n [Xarelto] 00 tab, 0 Refill(s) valACYclovi Yes 1 gm = 1 Me moria r 1 g oral 03-22 tab, PO, l tablet 19:27: Q8H, X 14 Enrique n 00 day, # 42 tab, 0 Refill(s) atorvastati Yes 80 mg = 1 M emoria n 80 mg 805 tab, PO, l oral tablet 19:27: Bedtime, # [place] 00 30 tab, 1 Refill(s) Levetiracet Yes 1,000 mg = Memoria am 1000 MG 03-22 1 tab, PO, l Oral Tablet 19:27: BID, # 60 H ermann 00 tab, 2 Refill(s) lisinopril Yes 20 mg = 1 Me moria 20 mg oral 8-05 tab, PO, l tablet 19:27: BID, # 60 Enrique n 00 tab, 1 Refill(s) Rocephin No 1 gm, Memoria 03-22 Route: l 13:00: IVPB, Drug form: PDR/INJ, [id number], Dosing Weight 110.3, kg, Start date: 03/22/15 [...] as: l 12:03: Mag-Ox 400) Magnesium oxide [id number] g elemental magnesium Dose=____m g magnesium oxide (___mg elemental magnesium) Potassium No Notes: Memori a Chloride 03-19 (Same as: l 1.33 MEQ/ML 12:02: Potassium H erm Chloride) Solution Lipitor No Notes: Memoria 03-18 Same as l 14:00: Lipitor Haloperidol No Notes: Mike sujey 03-17 (Same as: l 22:00: Haldol) Sertraline No Notes: Memor ia - (Same as: l 22:00: Zoloft) pregabalin No Notes: Memor ia 7-31 Same as l 22:00: Lyrica Wellbutrin No Notes: Memor ia 7-31 (Same As: l 16:45: Wellbutrin ) pantoprazol No Notes: Mike sujey e -31 Tablet l 16:45: should not be chewed or crushed. (Same as: Protonix) Keppra No Notes: Memoria 03-17 (Same l 16:03: as:Keppra) [place] Topamax No Notes: Memoria 03-17 (Same As: l 14:00: Topamax) [place] 00 potassium No Notes: Memori a chloride 03-17 (Same as: l 05:11: Potassium Chloride) heparin No Notes: Memoria 03-17 porcine l 05:00: heparin Keppra + No Notes: Memoria Sodium 03-17 Same as l Chloride 04:00: Keppra [place] 0.9% IV 100 00 Mix with mL 100 mL NS, LR or D5W MEDICATION WASTE Product Size: 500 mg Product Wasted: ___ mg Lisinopril No Notes: Memor ia 03-17 (Same as: l 03:37: Prinivil, [place] 00 Zestril) Hydralazine No Notes: Mike sujey 03-17 (Same as: l 03:36: Apresoline ) Push over 5 minutes Labetalol No 10 mg, 2 Mike sujey 03-17 mL, Route: l 03:36: IVP, Drug form: [...] a 03-17 (Same as: l 03:00: Zovirax) MEDICATION WASTE Product Size: 500 mg Product [...] IV, Q8H, 0 l mg/mL 01:17: Refill(s) [place] intravenous 00 solution haloperidol No 2 mg = 1 Me moria 2 mg oral 03-17 tab, PO, l tablet 01:17: BID, 0 [place] 00 Refill(s) Folic Acid No 1 mg = 1 Mem oria 1 MG Oral - tab, PO, l Tablet 01:17: Daily, # [place] 00 30 tab, 0 Refill(s) pantoprazol Yes 40 mg = 1 M emoria e 40 mg 03-17 tab, PO, l oral 01:17: Daily, # [place] enteric 00 30 tab, 0 coated Refill(s) tablet triazolam No 0.25 mg = Mem oria 0.25 mg 03-17 1 tab, PO, l oral tablet 01:17: Daily, PRN [place] 00 Sleep, 0 Refill(s) NS w/K20 No Special Memori a 03-17 Instructio l 01:17: ns: 70 [place] 00 mls/hr atorvastati No 80 mg = 1 M emoria n 80 mg 03-17 tab, PO, l oral tablet 01:17: Bedtime, # [place] 00 30 tab, 0 Refill(s) topiramate Yes 50 mg = 1 Me moria 50 MG Oral -31 tab, PO, l Tablet 01:17: BID, # [...] 1 Me moria 2 mg oral 7-31 cap, PO, l capsule 01:17: BID, 0 [place] 00 Refill(s) acyclovir No IV, Q8H, 0 Me moria 500 mg 03-17 Refill(s) l intravenous 01:17: Enrique n injection 00 Methocarbam No 250 mg, Mem oria ol 03-17 PO, BID, 0 l 01:17: Refill(s) [place] 00 Acetaminoph No 650 mg, Mem oria en 03-17 PO, PRN, 0 l 01:17: Refill(s) [place] 00 lisinopril No 20 mg = 1 Me moria 20 mg oral 03-17 tab, PO, l tablet 01:17: BID, 0 [place] 00 Refill(s) pregabalin Yes 50 mg = 1 Me moria 50 mg oral 7 cap, PO, l capsule 01:17: BID, # [...] 30 day, Stop date: 11/30/14 9:00:00 Metronidazo No 500 mg, 1 M emoria le 500 MG 3-17 tab, l Oral Tablet 05:00: Route: PO, Drug form: TAB, Q8H, Dosing Weight 110.3, kg, Start date: 11/01/14 0:00:00, Duration: 30 day, Stop date: 11/30/14 16:00:00 Metronidazo Yes 500 mg = 1 Memoria le 500 MG 3-17 tab, PO, l Oral Tablet 00:45: Q8H, # 21 H ermann 09 tab, 0 Refill(s) levofloxaci 2014-0 Yes 500 mg = 1 Memoria n 500 mg 3-17 tab, PO, l oral tablet 00:43: Daily, # 7 [place] 56 tab, 0 Refill(s) rivaroxaban 2014-0 Yes 20 mg = 1 M emoria 20 MG Oral 3-17 tab, PO, l Tablet 00:43: QPM, # 30 Enrique n [Xarelto] 47 tab, 6 Refill(s) lisinopril 2014-0 Yes 40 mg = 1 Me moria 40 mg oral 3-17 tab, PO, l tablet 00:43: Daily, # [place] 00 30 tab, 0 Refill(s) Bupropion 2014-0 Yes 200 mg, Memor ia Hydrochlori 3-17 [...] Memoria 3-16 Route: PO, l 22:00: BID, Dosing Weight 110.3, kg, Start date: 10/31/14 17:00:00, Duration: 30 day, Stop date: 11/30/14 9:00:00 Wellbutrin 2014-0 No 200 mg, Mike sujey 3-16 Route: PO, l 22:00: Drug form: TAB, BID, Dosing Weight 110.3, kg, Start date: 10/31/14 17:00:00, Duration: 30 day, Stop date: 11/30/14 9:00:00 Navane 2014-0 No 2 mg, Memoria 3-16 Route: PO, l 22:00: BID, Dosing Weight 110.3, kg, Start date: [...] 3-16 Route: PO, l 21:36: Drug form: [place] 00 TAB, Q6H, Dosing Weight 110.3, kg, PRN as needed for nausea/vom iting, Start date: 10/31/14 16:36:00, Duration: 30 day, Stop date: 11/30/14 16:35:00 rivaroxaban 2014-0 No 20 mg = 1 M emoria 20 MG Oral 3-16 tab, PO, l Tablet 21:32: QPM, # 30 Enrique n [Xarelto] 00 tab, 6 Refill(s) Metronidazo 2015-0 No 500 mg = 1 Memoria le 500 MG 3-16 tab, PO, l Oral Tablet 21:32: Q8H, # 21 H ermann 00 tab, 0 Refill(s) levofloxaci 2015-0 No 500 mg = 1 Memoria n 500 mg 3-16 tab, PO, l oral tablet 21:32: Daily, # 7 [place] 00 tab, 0 Refill(s) Wellbutrin No Notes: Memor ia 3-16 (Same As: l 02:00: Wellbutrin ) Topamax No Notes: Memoria 3-16 (Same As: l 02:00: Topamax) "Do Not Crush" sennosides, No Notes: Mike sujey PRISON 3-16 (Same as: l 02:00: Senokot) metoprolol [...] date: Limited # of times Vancomycin No 2001 mg: Me moria 3-15 infuse l 14:00: over 2.5 hours Vancomycin FOR IV SET ONLY potassium No Notes: Memori a chloride 3-15 (Same as: l 10:00: Potassium Chloride) magnesium No 2 gm, 50 Mike sujey sulfate 3-15 mL, Route: l 10:00: IVPB, Drug form: INJ, ONCE, Start date: 10/30/14 5:00:00, Stop date: 10/30/14 5:00:00 Lisinopril 2014-0 No Notes: Memor ia 3-14 Shake well l 23:00: before [place] 00 use. Refrigerat e For Oral Use Only. Compound ed Product - formulatio n not commercial ly available* * Hydralazine No Notes: Mike sujey 3-14 (Same as: l 22:19: Apresoline [place] 00 ) Push over 5 minutes Bisacodyl No Notes: Memori a 3-14 (Same As: l 14:37: Dulcolax, [place] Bisco-Lax) magnesium No 2 gm, 50 Mike sujey sulfate 3-14 mL, Route: l 09:00: IVPB, Drug form: INJ, ONCE, Start date: 10/29/14 4:00:00, Stop date: 10/29/14 4:00:00 Calcium 2014-0 No 1,000 mg, Memor ia Chloride 3-13 Route: l 23:32: IVPB, 00 ONCE, Dosing Weight 110.3, kg, Start date: 10/28/14 18:32:00, Stop date: 10/28/14 18:32:00 Vancomycin No 2000 mg: Me moria 3-13 infuse l 23:00: over 2.5 [place] 00 hours Vancomycin FOR IV SET ONLY Vancomycin No 2000 mg: Me moria 3-13 infuse l 22:00: over 2.5 [place] 00 hours Vancomycin FOR IV SET ONLY Ativan No 2 mg, Memoria 3-13 Route: IV, l 18:49: ONCE, [place] 00 Dosing Weight 110.3, kg, Start date: 10/28/14 13:49:00, Stop date: 10/28/14 13:49:00 sodium 2014-0 No Notes: Memoria phosphate + 3-13 (Same as: l Sodium 10:00: Na [place] Chloride 00 Phosphate, 0.9% IV 250 Na PO4) mL potassium No Notes: Memori a chloride 3-13 (Same as: l 09:30: Potassium [place] 00 Chloride) magnesium No 2 gm, 50 Mike sujey sulfate 3-13 mL, Route: l 09:30: IVPB, Drug [place] 00 form: INJ, ONCE, Start date: 10/28/14 [...] e 3-12 Same as: l 14:00: Protonix [place] 00 Protonix No Notes: Memoria 3-12 Tablet l 14:00: should not [place] 00 be chewed or crushed. (Same as: Protonix) Propofol 10 No Notes: If M emoria MG/ML 3-12 Diprivan - l Injectable 12:02: change Aliza nn Suspension 00 bottle & tubing every 12 hr Per state nursing law propofol can only be given by a nurse if patient is intubated or being intubated (unless the nurse is a [employer]). Same as: Diprivan sodium No Notes: Memoria bicarbonate 3-12 (sodium l 75 mEq + 07:02: bicarb [place] Sodium 00 8.4% (1 Chloride mEq/ml) 50 0.45% IV ml VL) 925 mL ketAMINE No Notes: Per Mem oria 500 mg + 3-12 state l Sodium 06:53: nursing [place] Chloride 00 law 0.9% IV 245 ketamine mL can only be given by a nurse if patient is intubated or being intubated (unless the nurse is a [employer]). Keppra No Notes: Memoria 3-12 Same as: l 02:00: Keppra [place] Vancomycin No 2001 mg: Me moria 3-12 infuse l 02:00: over 2.5 [place] 00 hours Vancomycin FOR IV SET ONLY heparin No 500 mL, Memoria additive 3-12 Rate: l 25,000 unit 01:00: 21.16 Aliza [...] before hanging" sennosides, No Notes: Mike sujey PRISON 3-11 (Same as: l 22:00: Senokot) [place] 00 Lipitor No Notes: Memoria 3-11 Same as l 22:00: Lipitor [place] 00 Xarelto No Notes: Memoria 3-11 (Same as: l 22:00: Xarelto) [place] 00 Administer with food chlorhexidi No Notes: Mike sujey ne 3-11 (Same As: l gluconate 22:00: Peridex) Herm tin 1.2 MG/ML 00 Mouthwash nxstage No 1,000 mL, Memor ia pureflow 3-11 Route: l [id number] 21:50: DIALYSIS, Aliza nn 5000ml SOLN 00 Irrigation 1000 mL Site: Vein, femoral, Rt, 3,000 ml/hr, 0.3 hr, Total Volume: 1,000, "For Irrigation Only", Start date: 10/26/14 16:50:00, Duration: 1 day, Stop date: 10/27/14 16:49:00 Ketamine No Notes: Per Mem oria 311 state l 21:49: nursing [place] law ketamine can only be given by a nurse if patient is intubated or being intubated (unless the nurse is a [employer]). lidocaine No Notes: Memori a 1% 10-26 (Same as: l 21:26: Xylocaine) [place] 00 Ketamine No Notes: Per Mem oria 3 state l 21:00: nursing [place] 00 law ketamine can only be given by a nurse if patient is intubated or being intubated (unless the nurse is a [employer]). Calcium No 1,000 mg, Memor ia Chloride -11 10 mL, l 20:40: Route: [place] 00 IVPB, ONCE, Dosing Weight 110.3, kg, Start date: 10/26/14 15:40:00, Stop date: 10/26/14 15:40:00 Iohexol No Special Memoria 3-11 Instructio l 20:24: ns: Dose = [place] 00 2.2ml/kg, Max dose = 100ml -- "To be infused by Radiology Staff ONLY" Ketamine No Notes: Memoria 3-11 Total l 19:23: Concentrat [place] 00 ion = 1mg/ml Total Volume = 100ml Infusion Rate= Begin Infusion at an initial rate of 0.1mg/kg/h r to a Maximum Rate of 0.25mg/kg/ hr Please place a Med Request 2 hours before the next dose is needed. EPINEPHrine No 250 mL, Mem oria 4 mg + 3-11 Rate: l Sodium 18:54: Titrate, [place] Chloride 00 Dosing 0.9% Weight (titrate) 110.3, kg, 250 mL Route: IV, Total Volume: 254, Start Date: 10/26/14 13:54:00, Duration: 30 day, Stop date: 11/25/14 13:53:00, Replace Every: 24 hr Etomidate No Notes: Memori a -11 (Same as: l 18:54: Amidate). [place] 00 Per state nursing law etomidate can only be given by a nurse if patient is intubated or being intubated (unless the nurse is a [employer]). sodium No Notes: Memoria bicarbonate -11 (sodium l 8.4% 18:53: bicarb [place] 00 8.4% (1 mEq/ml) 50 ml syringe) Succinylcho No Notes: Mike sujey line -11 Same as: l 18:53: Anectine [place] 00 Fentanyl No 1,000 Memoria -11 microgram, l 18:52: 20 mL, Rate: Titrate as directed, Dosing Weight 110.3, kg, Route: IV, Total Volume: 20 mL, Start Date: 10/26/14 13:52:00, Duration: 30 day, Stop date: 11/25/14 13:51:00, Replace Every: 24 hr Midazolam 1 No Notes: Mike sujey MG/ML 10-26 (Same as: l Injectable 18:52: Versed) Herm tin Solution 00 Insulin No Notes: Memoria regular 100 -11 (Same as: l unit + 18:38: Humulin R Enrique n Sodium 00 and Chloride NovoLIN R) 0.9% (Do not (titrate) shake) 99 mL Dextrose No 6.25 gm, Memor ia 50% Syringe 10-26 12.5 mL, l 18:38: Route: IVP, Drug Form: INJ, Dosing Weight 110.3, [...] 3-11 mL, Route: l 18:20: IVPB, PRN, [place] 00 Dosing Weight 110.3, kg, PRN Abnormal Lab Result, Via central line, Start date: 10/26/14 13:20:00, Duration: 30 day, Stop date: 11/25/14 13:19:00 Magnesium No 2 gm, 50 Mike sujey Sulfate 3-11 mL, Route: l 18:20: IVPB, Drug form: INJ, PRN, Dosing Weight 110.3, kg, [...] 11/25/14 13:19:00 sodium No Notes: Memoria bicarbonate 10-26 (sodium l 75 mEq + 17:06: bicarb [place] Sodium 00 8.4% (1 Chloride mEq/ml) 50 0.45% IV ml VL) 925 mL vasopressin No Notes: Mike sujey 80 unit + 11 (Same As: l Sodium 15:34: Pitressin) Aliza nn Chloride 00 0.9% (titrate) 246 mL Flagyl No Notes: Memoria 3-11 (Same as: l 15:00: Flagyl) Avoid alcohol. cefepime No Notes: Memoria 3-11 (Same As: l 15:00: Maxipime) [place] Vancomycin No 2000 mg: Me moria 3-11 infuse l 14:08: over 2.5 [place] 00 hours Vancomycin FOR IV SET ONLY PlasmaLyte No 2,000 mL, Me moria A PH-7.4 3-11 Rate: l 2,000 mL 14:06: 2,000 [place] 00 ml/hr, Infuse over: 1 hr, Route: IV, Dosing Weight 110.3 kg, Total Volume: 2,000, Start date: 10/26/14 9:06:00, Duration: 30 day, Stop date: 11/25/14 9:05:00 Wellbutrin No Notes: Memor ia 3-11 (Same As: l 14:00: Wellbutrin [place] 00 ) Haldol No Notes: Memoria 3-11 (Same as: l 14:00: Haldol) [place] 00 Topamax No Notes: Memoria 3-11 (Same As: l 14:00: Topamax) [place] 00 "Do Not Crush" Saline No Notes: Memoria Flush 0.9% 3-11 (Same as: l 14:00: BD [place] 00 Posiflush) docusate No Notes: Memoria sodium 100 3-11 (Same as: l mg oral 14:00: Colace) [place] capsule 00 pneumococca No Notes: Mike sujey [...] Levophed No Notes: Not Mem oria Bitartrate 3-11 for direct l 32 mg + 13:42: administra Herm tin Sodium 00 tion - Chloride DILUTE. 0.9% Protect (titrate) from 218 mL light. (Same as:Levophe d). Administer by either central venous catheter or peripheral ly-inserte d central catheter (PICC) line. Albumin No Notes: Lot Mike sujey Human, PRISON 3-11 #: l 250 MG/ML 12:52: He rmann Injectable 00 ___ Solution Mfg: (Same as: Plasbumin- 25) "blood product derivative " Protonix No Notes: Memoria 10-26 (Same as: l 12:19: Protonix) [place] 00 Albumin No Notes: Memoria Human, PRISON 10-26 LOT#: l 50 MG/ML 10:34: Her yrok Injectable 00 ___ Solution Mfg: (Same as: Albuminar) "blood product derivative " Versed No Notes: Memoria 10-26 (Same as: l 09:00: Versed) magnesium No 2 gm, 50 Mike sujey sulfate 3-11 mL, Route: l 07:00: IVPB, Drug [place] 00 form: INJ, Q2H, Start date: 10/26/14 2:00:00, Duration: 2 doses or times, Stop date: 10/26/14 4:00:00 Iohexol No Special Memoria 10-26 Instructio l 05:56: ns: Dose = [place] 2.2ml/kg, Max dose = 100ml -- "To be infused by Radiology Staff ONLY" magnesium No 4 gm, 100 Mem oria sulfate 3-11 mL, Route: l 05:44: IVPB, Drug [place] 00 form: INJ, ONCE, Start date: 10/26/14 0:44:00, Stop date: 10/26/14 0:44:00 Reglan No Notes: Memoria 10-26 (Same as: l 05:21: Reglan) Valproic No 1,000 mg, Mike sujey Acid 100 11 Route: IV, l MG/ML 05:16: ONCE, [place] Injectable 00 Dosing Solution Weight 110.3, kg, Priority: NOW, Start date: 10/26/14 0:16:00, Stop date: 10/26/14 0:16:00 Dexamethaso No 10 mg, 1 Me moria ne 3-11 mL, Route: l 05:15: IVP, Drug [place] 00 form: INJ, ONCE, Dosing Weight 110.3, kg, Start date: 10/26/14 0:15:00, Stop date: 10/26/14 0:15:00 Reglan 2014- No 10 mg, Memoria 10-26 Route: l 05:14: IVP, Drug [place] 00 form: INJ, Q6H, Dosing Weight 110.3, kg, Priority: NOW, Start date: 10/26/14 0:14:00, Duration: 30 day, Stop date: 11/25/14 0:00:00 NS 1,000 mL 2014- No 1,000 mL, M emoria 10-26 Rate: 150 l 05:01: ml/hr, [place] 00 Infuse over: 6.7 hr, Route: IV, Dosing Weight 110.3 kg, Total Volume: 1,000, Start date: 10/26/14 0:01:00, Duration: 30 day, Stop date: 11/25/14 0:00:00 Sodium 2014- No 1,000 mL, Memori a Chloride 10-26 1,000 l 0.154 04:54: ml/hr, [place] MEQ/ML 00 Infuse Injectable Over: 1 Solution [...] 3-11 NASAL, l ne 03:29: Daily, # [place] Acetonide 00 17 gm, 0 0.055 Refill(s) MG/ACTUAT Nasal Inhaler [Nasacort] atorvastati Yes 80 mg = 1 M emoria n 80 MG 3-11 tab, PO, l Oral Tablet 03:29: Daily, 0 He rmann [Lipitor] 00 Refill(s) Haldol Yes 2 mg, PO, Memori a 3-11 BID, 0 l 03:28: Refill(s) [place] 00 Acetaminoph No Notes: Max Memoria en 3-11 acetaminop l 03:01: hen = [place] 00 4000mg/day (4 gm/day). (Same as: Tylenol) Sodium No 1,000 mL, Memori a Chloride -11 1,000 l 0.154 02:35: ml/hr, [place] MEQ/ML 00 Infuse Injectable Over: 1 Solution hr, Route: IV, 1,000, Drug form: INJ, ONCE, Priority: STAT, Dosing Weight 96.364 kg, Start date: 10/25/14 21:35:00, Duration: 1 doses or times, Stop date: 10/25/14 21:35:00 Saline No Notes: Memoria Flush 0.9% -11 (Same as: l 02:33: BD [place] 00 Posiflush) Ondansetron No Notes: Mike sujey 3-11 (Same as: l 02:33: Zofran) [place] 00 NS 1,000 mL No 1,000 mL, M emoria 3-11 Rate: 100 l 02:30: ml/hr, [place] 00 Infuse over: 10 hr, Route: IV, [...] 3-11 mL, Route: l 02:28: IVP, Drug Form: INJ, Dosing Weight 96.364, kg, PRN, PRN Abnormal Lab Result, Start date: 10/25/14 21:28:00, Duration: 30 day, Stop date: 11/24/14 21:27:00 Coumadin No 2 mg, 1 Memori a 3-30 tab, l 22:00: Route: PO, Drug form: TAB, Q5PM, Start date: 11/14/13 [...] ensure documentat ion of patient education per [facility] policy. Avoid large intake of vitamin-K containing foods diet. (Same As: Coumadin) Levetiracet Yes 500 mg = 1 Memoria am 500 MG 3-30 tab, PO, l Oral Tablet 19:41: Q12H, # 60 [place] [Keppra] 00 tab, 0 Refill(s) Levetiracet No 500 mg, 1 M emoria am 500 MG 3-30 tab, l Oral Tablet 18:00: Route: PO, [place] [Keppra] Drug form: TAB, Q12H, Dosing Weight 96.364, kg, Start date: 11/14/13 13:00:00, Duration: 30 day, Stop date: 12/14/13 9:00:00(Sa me as:Keppra) pneumococca No 0.5 ml, Mem [...] ia 3-30 cap, l 03:09: Route: PO, [place] Drug form: CAP, Bedtime, Dosing Weight 96.364, kg, PRN Insomnia, Start date: 11/13/13 22:09:00, Duration: 1 day, Stop date: 11/14/13 22:08:00(S pinky as: Benadryl) atorvastati No 80 mg, 2 Me moria n 3-30 tab, l 02:00: Route: PO, [place] 00 Drug form: TAB, Bedtime, Dosing Weight [...] ensure documentat ion of patient education per [facility] license of [place] [facility] policy. Avoid large intake of vitamin-K containing foods diet. (Same As: Coumadin) Ativan No 0.5 mg, 1 Memori a 3-29 tab, l 21:00: Route: PO, Cab[place] 00 Drug form: TAB, ONCE, Dosing Weight 96.364, kg, Start date: 11/13/13 16:00:00, Stop date: 11/13/13 16:00:00(S pniky as: Ativan) Ativan No 0.5 mg, 1 Memori a 3-29 tab, l 20:08: Route: PO, Drug form: TAB, ONCE, Dosing Weight 96.364, [...] 60 Aliza nn [Navane] 00 cap haloperidol 2013-0 Yes 5 mg = 1 Me moria [...] 3-29 tab, PO, l tablet 17:03: Daily [place] 00 verapamil Yes 300 mg = 1 [...] 325 mg, 1 M emoria MG Enteric 11-13 tab, l Coated 14:00: Route: PO, Aliza nn Tablet 00 Drug form: ECTAB, Daily, Dosing Weight 96.364, kg, Start date: 11/13/13 9:00:00, Duration: 30 day, Stop date: 12/12/13 9:00:00(Do Not Crush) Do not crush or chew. Versed No 1 mg, 1 Memoria 11-13 mL, Route: l 12:06: IV, Drug form: INJ, PRN, Dosing Weight 96.364, kg, PRN Other -See Comment, Start date: 11/13/13 7:06:00, Duration: 30 day, Stop date: 12/13/13 7:05:00([facility] as: Versed) Iohexol No 85 mL, [...] emoria 3-29 mL, Route: l 11:00: SUB-Q, [place] 00 Drug form: INJ, [id number], Dosing Weight 96.364, kg, Start date: 11/13/13 6:00:00, Duration: 30 day, Stop date: 12/12/13 6:00:00( me as: Lovenox) Saline No 5 ml, Memoria Flush 0.9% 11-13 Route: l 10:15: IVP, Drug Form: INJ, Dosing Weight 96.364, kg, PRN, PRN Line Flush, Start date: 11/13/13 5:15:00, Duration: 30 day, Stop date: 12/13/13 5:14:00([facility] as: BD Posiflush) Acetaminoph No 650 mg, 2 M emoria en 3-29 tab, l 10:15: Route: PO, Drug form: [...] 2013- Yes 7 mg, PO, Mike sujey 3- Daily, 0 l 09:06: Refill(s) Saline 2013-0 No 5 mL, Memoria Flush 0.9% 11-13 Route: l 08:58: IVP, Drug [place] 00 Form: INJ, Dosing Weight 96.364, kg, PRN, PRN Line Flush, Start date: 11/13/13 3:58:00, Duration: 30 day, Stop date: 12/13/13 3:57:00pre servative free. Navane 2 mg Yes Anna Marie 2 mg, PO, Memoria oral 9-25 Janey BID, 60 l capsule 18:40: Brown tab, [place] 33 Substituti on Allowed, CAP Zoloft 100 Yes Anna Marie 100 mg, 1 Memoria mg oral 9-25 Janey tab, PO, l tablet 18:40: Brown BID, 60 [place] 28 tab, Substituti on Allowed, TAB haloperidol Yes Anna Marie 2 mg, 1 Memoria 2 mg oral 9-25 Janey tab, PO, l tablet 18:40: Brown BID, 60 [place] 12 tab, Substituti on Allowed Wellbutrin Yes Anna Marie 100 mg, 1 Memoria 100 mg oral 9-25 Janey tab, PO, l tablet 18:39: Brown BID, 60 [place] 54 tab, Substituti on Allowed, TAB Levaquin [...] 80 mg, 1 Memoria n 80 mg 05-11 Janey tab, PO, l oral tablet 22:14: Brown Bedtime, H ermann 33 30 tab, Substituti on Allowed, TAB aspirin 81 Yes Anna Marie 81 mg, 1 Memoria mg tablet, 05-11 Janey tab, PO, l enteric 22:14: Brown Daily, 30 Herm tin coated 18 tab, Substituti on Allowed, ECTAB metoprolol No Hannah 25 mg, 1 Me moria tartrate 05-11 Dom tab, l 13:38: Tom Route: PO, Enrique n 00 Drug form: TAB, ONCE, Dosing Weight 98.182, kg, Priority: STAT, Start date: 05/11/13 8:38:00, Stop date: 05/11/13 8:38:00 Flagyl No Lyndon 500 mg, Memor ia 05-10 Amado 100 mL, l 23:00: Bubis Route: [place] 00 IVPB, Drug form: INJ, [id number], Dosing Weight 98.182, kg, Start date: 05/10/13 18:00:00, Duration: 30 day, Stop date: 06/09/13 10:00:00 azithromyci No Lyndon 500 mg, Memoria n + Sodium 05-10 Amado Route: l Chloride 23:00: Bubis IVPB, Cabrera 0.9% IV 250 00 [id number], mL Dosing Weight 98.182, kg, Start date: [...] 05/10/13 17:45:00, Stop date: 05/10/13 17:45:00 heparin 2012-0 No Anna Marie 5,000 Memori a 05-10 Janey unit, 1 l 21:00: Brown mL, Route: Enrique n 00 SUB-Q, Drug form: INJ, Q8H, Dosing Weight 98.182, kg, Start date: 05/10/13 16:00:00, Duration: 30 day, Stop date: 06/09/13 8:00:00 aspirin 2012-0 No Anna Marie 81 mg, 1 Mem oria 05-10 Janey tab, l 18:00: Brown Route: PO, Enrique n 00 Drug form: ECTAB, Daily, Dosing Weight 98.182, kg, Start date: 05/10/13 13:00:00, Duration: 30 day, Stop date: 06/09/13 9:00:00 azithromyci 2012-0 No Lyndon 250 mg, 1 Memoria n 250 mg 05-10 Amado tab, l oral tablet 13:00: Sona Route: PO, [place] 00 Drug form: TAB, [id number], Dosing Weight 98.182, kg, Start date: 05/10/13 8:00:00, Duration: 4 doses or times, Stop date: 05/13/13 8:00:00 Versed 2012-0 No Hannah 1 mg, 1 Memoria 05-10 Dom mL, Route: l 12:41: Tom IV, Drug [place] 00 form: INJ, ONCE, Dosing Weight 98.182, kg, Start date: 05/10/13 7:41:00, Stop date: 05/10/13 7:41:00 magnesium 2012-0 No Hannah 2 gm, 50 Mem oria sulfate 05-10 Dom mL, Route: l 11:00: Tom IVPB, Drug Enrique n 00 form: INJ, Q2H, Dosing Weight 98.182, kg, Total Dose = 4 gm, Start date: 05/10/13 6:00:00, Duration: 2 doses or times, Stop date: 05/10/13 8:00:00, For Mg = 1.5 - 1.7 mg/dLFor Mg = 1.5 - 1.7 mg/dL Lipitor 2012-0 No Yoli Rakel 80 mg, 1 Memoria [...] Route: PO, l 500 mg oral 23:08: Marcus Drug form: [place] tablet 00 TAB, ONCE, Dosing Weight 98.182, [...] 30 day, Stop date: 06/07/13 9:00:00 multivitami No Brittany 1 tab, M emoria n 05-09 Carmen Route: PO, l 13:10: Zwiener Drug Form: Herm tin 00 TAB, Dosing Weight 98.182, kg, Daily, Start date: 05/09/13 8:10:00, Duration: 30 day, Stop date: 06/07/13 9:00:00 heparin No Hannah 5,000 Memoria 05-09 Dom unit, 1 l 13:00: Tom mL, Route: Enrique n 00 SUB-Q, Drug form: INJ, Q8H, Dosing Weight 98.182, kg, Start date: 05/09/13 8:00:00, Duration: 30 day, Stop date: 06/08/13 0:00:00 Plavix 2012- No Hannah 75 mg, 1 Memori a 05-09 Dom tab, l 13:00: Tom Route: PO, Enrique n 00 Drug form: TAB, Daily, Dosing Weight 98.182, kg, Start date: 05/09/13 8:00:00, Duration: 30 day, Stop date: 06/07/13 9:00:00 Rocephin No Hannah 1 gm, Memoria 05-09 Dom Route: l 13:00: Tom IVPB, Drug Enrique n 00 form: PDR/INJ, [id number], Dosing Weight 98.182, kg, Start date: 05/09/13 8:00:00, Duration: 4 doses or times, Stop date: 05/13/13 8:00:00 insulin No Hannah 3 unit, Memori a regular [...] 05-09 Carmen Rate: l 12:37: Zwiener 1,000 [place] 00 ml/hr, Infuse over: 1 hr, Route: [...] Dom Route: l 11:49: Tom IVP, Drug Form: SOLN, Dosing Weight 98.182, kg, ONCALL, STAT, Start date: 05/09/13 6:49:00, Duration: 1 doses or times, Dose = 2.2ml/kg, Max dose = 100ml -- "To be infused by Radiology Staff ONLY"Dose = 2.2ml/kg, Max dose = 100ml -- "To be infused by Radiology Staff ONLY" NS 1000 mL No Lyndon 1,000 mL, Memoria 05-09 Amado Rate: 150 l 03:31: Bubis ml/hr, Infuse over: 6.7 hr, Route: IV, Dosing Weight 113.636 kg, Total Volume: 1,000, Start date: 05/08/13 22:31:00, Duration: 30 day, Stop date: 06/07/13 22:30:00 levalbutero No Linsey 0.63 mg, 3 Memoria l 05-09 Vanessa mL, Route: l 02:59: Read NEB, Drug Aliza Brice form: SOLN, PRN, Dosing Weight 113.636, [...] 30 day, Stop date: 06/07/13 9:00:00 docusate No Linsey 100 mg, 1 Memoria 05-09 Vanessa cap, l 02:00: Read Route: PO, Herm tin Brice Drug form: CAP, Q12H, Dosing Weight 113.636, kg, Start date: 05/08/13 21:00:00, Duration: 30 day, Stop date: 06/07/13 9:00:00 Saline No Linsey 5 ml, Memori a Flush 0.9% 05-08 Vanessa Route: l 22:58: Read IVP, Drug Aliza nn Brice Form: INJ, Dosing Weight 113.636, kg, PRN, PRN Line Flush, Start date: 05/08/13 17:58:00, Duration: 30 day, Stop date: 06/07/13 17:57:00 caffeine 2011-08 Yes Aniat Marcelino 100 mg, 1 Memoria 100 mg oral 2-04 Escalante tab, PO, l tablet 19:05: Q6H, 24 Cabrera 27 tab, Substituti on Allowed, TAB aspirin 325 2011-08 Yes Anita Marcelino 325 mg, 1 Memoria mg tablet 2-04 [place]alante tab, PO, l 19:05: Daily, 30 [place] 08 tab, Substituti on Allowed, TAB verapamil [...] 2-04 Escalante tab, l 15:00: Route: PO, [place] 00 Drug form: TAB, Daily, Dosing Weight [...] tab, PO, l tablet 14:30: Q12H, 6 [place] 09 tab, Substituti on Allowed, TAB Lipitor 40 2011-08 Yes Naomi Viki 40 mg, 1 Memoria mg oral 2-04 Quang tab, PO, l tablet 14:30: QPM, 30 [place] 06 tab, 3, 3, Substituti on Allowed, TAB Cipro 2011-08 No Anita Marcelino 250 mg, 1 Mem oria 2-04 Escalante tab, l 05:00: Route: PO, [place] 00 Drug form: TAB, Q12H, Dosing Weight [...] 500 mL, Mem oria IV 500 mL 2- Govind Rate: 500 l 22:31: Koranne ml/hr, Infuse over: 1 hr, Route: IV, kg, Total Volume: 500, Priority: STAT, Start date: 07/20/12 16:31:00, Duration: 1 doses or times, Stop date: 07/20/12 17:30:00, Bolus DoseBolus Dose caffeine 2011-08 No Reynaldo 300 mg, Memor ia 2-03 Govind 1.5 tab, l 21:30: Koranne Route: PO, Herm tin 00 Drug form: TAB, ONCE, Start date: 07/20/12 15:30:00, Stop date: 07/20/12 15:30:00 aspirin 2011- No Reynaldo 81 mg, 1 Memor ia [...] No SYSTEM 0.5 ml, Mem oria virus 03 SYSTEM Route: IM, l vaccine, 15:00: Drug Form: [place] inactivated 00 INJ, Start date: 07/20/12 9:00:00, Stop date: 07/20/12 9:00:00 Saline 2011-08 No Baudilio 5 ml, Memoria Flush 0.9% 09-20 Castellanos Route: l 03:00: Chahil IVP, Drug [...] 2011-08 No Baudilio 40 mg, 0.4 Memoria 2- Castellanos mL, Route: l 17:00: Chahil SUB-Q, [place] Drug form: INJ, Q24H, Dosing Weight 113.636, kg, Start date: 07/19/12 11:00:00, Duration: 30 day, Stop date: 08/17/12 11:00:00 hydromorpho 2011-08 No David Agustin 1 mg, 0.5 Memoria ne 09-19 Spicer mL, Route: l 16:49: IVP, Drug [place] form: INJ, ONCE, Dosing Weight 113.636, kg, Priority: STAT, Start date: 07/19/12 10:49:00, Stop date: 07/19/12 10:49:00 Plavix 2011-08 No Anita Marcelino 75 mg, 1 Mem oria 09-19 Escalante tab, l 16:17: Route: PO, Cabrera [...] 30 day, Stop date: 08/18/12 10:04:00 Sodium 2011- No Baudilio 1,000 mL, Mem oria Chloride 2-02 Castellanos Rate: 75 l 0.9% IV 16:05: Chahil ml/hr, Enrique n 1,000 mL 00 Infuse over: 13.3 hr, Route: IV, kg, Total Volume: 1,000, Start date: 07/19/12 10:05:00, Duration: 30 day, Stop date: 08/18/12 10:04:00 Navane 2011- Yes 20 mg, PO, Memor ia 2-02 Daily, l 13:02: Substituti [place] 47 on Allowed Haldol 2011-08 Yes Baudilio [...] David Velez 25 mg, 1 Memoria e 2- Spicer [...] [facility] Aspir-81 Aspir-81 Yes James [address] [facility] Potassium Potassium Yes James [address] [facility] Chloride Chloride [facility] Lipitor Lipitor Yes James [address] [facility] Ambien Ambien Yes James [facility] tablet [facility] Symbicort Symbicort Yes James [address] [facility] Lasix Lasix Yes James 0.5 tablet [facility] Promethazin Promethazin Yes James TAKE ONE [facility] HCl e HCl [facility] TABLET BY [facility] - MOUTH Memoria EVERY 12 l HOURS Outpati NEEDED FOR ent NAUSEA AND Clinics VOMITING Zoloft Zoloft Yes James [facility] tablet [facility] Abilify Abilify Yes James [address] [facility] Metoprolol Metoprolol Yes James [address] [facility] [address] Tartrate Tartrate [facility] with food [facility] - [facility] Eliquis Eliquis Yes James as [facility] Clopidogrel Clopidogrel Yes James [address] [facility] Bisulfate Bisulfate [facility] Promethazin Promethazin Yes James TAKE ONE [facility] e HCl e HCl [facility] TABLET BY [facility] - MOUTH Memoria EVERY 12 l HOURS Outpati NEEDED FOR ent NAUSEA AND Clinics VOMITING Immunizations Ordered Filled Immunization Date Status Comments Sour e Immunization Name Name Influenza Virus 2020-07-12 Completed [facility] Vaccine Recomb Quad 00:00:00 [facility] IM, Preserv and ABX Branc h Free 18-64 YRS Influenza Virus 2020-07-12 Completed [facility] Vaccine Recomb Quad 00:00:00 [facility] IM, Preserv and ABX Branc h Free 18-64 YRS Influenza Virus 2019-10-18 Completed [facility] of Vaccine Quad .5 mL 00:00:00 [facility] IM 6+ MO Branch Influenza Virus 2019-10-18 Completed [facility] of Vaccine [place] .5 mL 00:00:00 [facility] IM 6+ MO [facility] Pneumococcal 2018-12-10 Completed [facility] o f Polysaccharide, 00:00:00 [place] [facility] PPSV23 (PNEUMOVAX) Branch Influenza Virus 2018-12-10 Completed [facility] of Vaccine Quad .5 mL 00:00:00 [facility] IM 6+ [place] [facility] Pneumococcal 2018-12-10 Completed University o f Polysaccharide, 00:00:00 [place] [facility] PPSV23 (PNEUMOVAX) Branch Influenza Virus 2018-12-10 Completed [facility] of Vaccine Quad .5 mL 00:00:00 [facility] IM 6+ [place] influenza virus 2014-10-28 Completed [facility] [place] vaccine, 17:00:00 inactivated pneumococcal 2013-11-14 Completed Memorial [place] 23-valent vaccine 19:53:00 influenza virus 2012-07-21 Completed [facility] [place] vaccine, 19:37:00 inactivated influenza virus 2012-07-21 Completed [facility] [place] vaccine, 19:37:00 inactivated Vital Signs Vital Name Observation Time Observation Value Comments Source Systolic (mm Hg) 2019-03-13 01:15:00 Mike rial [place] Diastolic (mm Hg) 2019-03-13 01:15:00 Mem orial [place] Temperature Oral (F) 2019-03-13 01:15:00 97.0 F [facility] [place] Respitory Rate 2019-03-13 01:15:00 Memori al [place] Heart Rate 2019-03-12 22:53:00 [facility] [place] Respitory Rate 2019-03-12 22:07:00 Memori al [place] Systolic (mm Hg) 2019-03-12 22:07:00 Mike rial [place] Diastolic (mm Hg) 2019-03-12 22:07:00 Mem orial [place] Heart Rate 2019-03-12 22:07:00 [facility] [place] Systolic (mm Hg) 2019-03-12 20:52:00 Mike rial [place] Diastolic (mm Hg) 2019-03-12 20:52:00 Mem orial [place] Temperature Oral (F) 2019-03-12 20:52:00 97.3 F [facility] [place] Respitory Rate 2019-03-12 20:52:00 Memori al [place] Heart Rate 2019-03-12 20:52:00 [facility] [place] Temperature Oral (F) 2019-03-12 16:26:00 97.3 F [facility] [place] Weight 2019-03-10 08:42:00 [facility] [place] Weight 2019-03-10 08:31:00 [facility] [place] Height 2019-03-10 08:31:00 160.02 cm [facility] [place] BMI Calculated 2019-03-10 08:31:00 Memori al [place] Weight 2019-03-09 20:31:00 [facility] [place] BMI Calculated 2019-03-09 20:31:00 Memori al [place] Height 2019-03-09 20:31:00 172.72 cm [facility] [place] Temperature Oral (F) 2015-03-22 21:22:00 97.5 F [facility] [place] Heart Rate 2015-03-22 21:22:00 [facility] [place] Respitory Rate 2015-03-22 21:22:00 Memori al [place] Systolic (mm Hg) 2015-03-22 21:22:00 Mike rial [place] Diastolic (mm Hg) 2015-03-22 21:22:00 Mem orial [place] Heart Rate 2015-03-22 17:00:00 [facility] [place] Respitory Rate 2015-03-22 17:00:00 Memori al [place] Temperature Oral (F) 2015-03-22 17:00:00 97.4 F [facility] [place] Systolic (mm Hg) 2015-03-22 17:00:00 Mike rial [place] Diastolic (mm Hg) 2015-03-22 17:00:00 Mem orial [place] Systolic (mm Hg) 2015-03-22 14:14:00 Mike rial [place] Diastolic (mm Hg) 2015-03-22 14:14:00 Mem orial [place] Heart Rate 2015-03-22 14:14:00 [facility] [place] Temperature Oral (F) 2015-03-22 14:14:00 97.8 F [facility] [place] Respitory Rate 2015-03-22 14:14:00 Memori al [place] Weight 2015-03-17 00:52:00 [facility] [place] Height 2015-03-17 00:52:00 160.02 cm [facility] [place] BMI Calculated 2015-03-17 00:52:00 Memori al [place] Temperature Oral (F) 2014-11-01 00:46:00 98.1 F [facility] [place] Heart Rate 2014-11-01 00:46:00 [facility] [place] Respitory Rate 2014-11-01 00:46:00 Memori al [place] Systolic (mm Hg) 2014-11-01 00:46:00 Mike rial [place] Diastolic (mm Hg) 2014-11-01 00:46:00 Mem orial [place] Temperature Oral (F) 2014-10-31 21:18:00 98.6 F [facility] [place] Heart Rate 2014-10-31 21:18:00 [facility] [place] Respitory Rate 2014-10-31 21:18:00 Memori al [place] Systolic (mm Hg) 2014-10-31 21:18:00 Mike rial [place] Diastolic (mm Hg) 2014-10-31 21:18:00 Mem orial [place] Temperature Oral (F) 2014-10-31 15:55:00 98.2 F [facility] [place] Respitory Rate 2014-10-31 15:55:00 Memori al [place] Systolic (mm Hg) 2014-10-31 15:55:00 Mike rial [place] Diastolic (mm Hg) 2014-10-31 15:55:00 Mem orial [place] Heart Rate 2014-10-31 15:55:00 [facility] [place] Weight 2014-10-26 02:54:00 [facility] [place] BMI Calculated 2014-10-26 02:54:00 Memori al [place] Height 2014-10-26 02:54:00 160.02 cm [facility] [place] Diastolic (mm Hg) 2013-11-14 19:30:00 Mem orial [place] Heart Rate 2013-11-14 19:30:00 [facility] [place] Systolic (mm Hg) 2013-11-14 19:30:00 Mike rial [place] Respitory Rate 2013-11-14 19:30:00 Memori al [place] Temperature Oral (F) 2013-11-14 19:30:00 98.3 F [facility] [place] Heart Rate 2013-11-14 17:18:00 [facility] [place] Respitory Rate 2013-11-14 17:18:00 Memori al [place] Temperature Oral (F) 2013-11-14 17:18:00 98.0 F [facility] [place] Systolic (mm Hg) 2013-11-14 17:18:00 Mike rial [place] Diastolic (mm Hg) 2013-11-14 17:18:00 Mem orial [place] Diastolic (mm Hg) 2013-11-14 16:00:00 Mem orial [place] Systolic (mm Hg) 2013-11-14 16:00:00 Mike rial [place] Temperature Oral (F) 2013-11-14 15:04:00 97.4 F [facility] [place] Respitory Rate 2013-11-14 07:00:00 Memori al [place] Height 2013-11-13 11:04:00 162.56 cm [facility] [place] Weight 2013-11-13 11:04:00 [facility] [place] BMI Calculated 2013-11-13 11:04:00 Memori al [place] BMI Calculated 2013-11-13 08:43:00 Memori al [place] Height 2013-11-13 08:43:00 160.02 cm [facility] [place] Weight 2013-11-13 08:43:00 [facility] [place] Heart Rate 2013-11-13 08:43:00 [facility] [place] Heart Rate 2013-05-12 16:17:00 [facility] [place] Diastolic (mm Hg) 2013-05-12 16:17:00 Mem orial [place] Systolic (mm Hg) 2013-05-12 16:17:00 Mike rial [place] Respitory Rate 2013-05-12 15:30:00 Memori al [place] Diastolic (mm Hg) 2013-05-12 12:53:00 Mem orial [place] Systolic (mm Hg) 2013-05-12 12:53:00 Mike rial [place] Respitory Rate 2013-05-12 12:53:00 Memori al [place] Heart Rate 2013-05-12 12:53:00 [facility] [place] Temperature Oral (F) 2013-05-12 12:53:00 99.1 F [facility] [place] Diastolic (mm Hg) 2013-05-12 08:31:00 Mem orial [place] Systolic (mm Hg) 2013-05-12 08:31:00 Mike rial [place] Respitory Rate 2013-05-12 08:31:00 Memori al [place] Heart Rate 2013-05-12 08:31:00 [facility] [place] Temperature Oral (F) 2013-05-12 08:31:00 99.8 F [facility] [place] Temperature Oral (F) 2013-05-12 04:50:00 99.8 F [facility] [place] Height 2013-05-09 03:31:00 160.02 cm [facility] [place] Weight 2013-05-09 03:31:00 [facility] [place] Respitory Rate 2012-07-22 01:09:00 Memori al [place] Systolic (mm Hg) 2012-07-22 01:09:00 Mike rial [place] Diastolic (mm Hg) 2012-07-22 01:09:00 Mem orial [place] Temperature Oral (F) 2012-07-22 01:09:00 98.6 F [facility] [place] Heart Rate 2012-07-22 01:09:00 [facility] [place] Diastolic (mm Hg) 2012-07-21 21:10:00 Mem orial [place] Systolic (mm Hg) 2012-07-21 21:10:00 Mike rial [place] Temperature Oral (F) 2012-07-21 21:10:00 97.2 F [facility] [place] Heart Rate 2012-07-21 21:10:00 [facility] [place] Respitory Rate 2012-07-21 21:10:00 Memori al [place] Temperature Oral (F) 2012-07-21 18:26:00 98.5 F [facility] [place] Heart Rate 2012-07-21 18:26:00 [facility] [place] Respitory Rate 2012-07-21 18:26:00 Memori al [place] Diastolic (mm Hg) 2012-07-21 18:26:00 Mem orial [place] Systolic (mm Hg) 2012-07-21 18:26:00 Mike rial [place] Weight 2012-07-19 12:37:00 [facility] [place] Height 2012-07-19 12:37:00 160.02 cm [facility] [place] Procedures Procedure Date / Time Performing Clinician Source Performed Spinal puncture, 2015-03-17 20:30:27 [facility] rmann therapeutic, for drainage of cerebrospinal fluid (by needle or catheter) Appendectomy [facility] [place] Cholecystectomy [facility] [place] Ankle fusion<sup>1</sup> Memoria l [place] Appendectomy [facility] [place] Cholecystectomy [facility] [place] Fixation of fracture using Memor ial [place] plate Hysterectomy [facility] [place] Encounters Start End Encounter Admission Attending Care Care Encounter Source Date/Time Date/Time Type Type Clinicians Facility Department ID 2021-08-09 Outpatient BEATRIZYAA [facility] [id number] [place] 01:04:30 Health 2021-07-18 Outpatient [facility] [id number] [place] 14:59:49 Health 2021-06-27 Outpatient YAA HENDERSON [facility] [id number] [place] 14:17:41 Health 2021-09-04 2021-09-04 Outpatient R [facility] [id number] Univers 11:30:00 11:30:00 SENDIL [id number] ity [facility] 2021-08-03 2021-08-03 [employer] Grace, Alex Lab Main [facility] [id number] Univers 17:15:00 17:30:00 Visit Ludwig Escobar [id number] [facility] [id number] [id number] Co dical NAL 353 [facility] 2021-08-03 2021-08-03 Outpatient R [facility] [id number] Univers 17:15:00 17:15:00 [id number] ity [facility] 2021-08-03 2021-08-03 [id number] Univers 17:15:00 17:15:00 SENDIL [facility] 2021-07-04 2021-07-04 Telephone Floyd [facility] [id number] [facility] 00:00:00 00:00:00 Ludwig HURTADO [id number] [facility] [id number] [id number] Co dical NAL 059 [facility] 2021-03-26 2021-03-26 Orders Doctor ROSEMARY [id number] 00:00:00 00:00:00 Only Unassigned, OSITO [id number] [place] [facility] [id number] 2021-03-14 2021-03-14 Office Floyd OHDELISA [id number] 13:32:33 14:03:23 Visit Ludwig Hurtado [id number] [place] [id number] [facility] [id number] [facility] [place]9 [facility] 2020-03-28 2020-03-28 [facility] [id number] 16:00:00 16:00:00 t [employer] [facility] Clin[facility] 2020-02-21 2020-02-21 [facility] [id number] 15:00:00 15:00:00 t [employer] [facility] 2020-02-16 2020-02-16 [facility] [id number] 07:13:00 07:13:00 t [employer] [facility] 2020-02-15 2020-02-15 [facility] [id number] 14:22:00 14:22:00 [employer] [facility] Medicine Outpati ent Clinics 2020-01-12 2020-01-12 [facility] [id number] 16:30:00 16:30:00 [facility] [employer] [address] [facility] Out[facility] Clin[facility] 2019-12-27 2019-12-27 [facility] [id number] 14:45:00 14:45:00 [employer] [facility] Clin[facility] 2019-09-27 2019-09-27 [facility] [id number] 15:00:00 15:00:00 [employer] [facility] Medicine Outpati ent Clinics 2019-03-09 2019-03-13 Inpatient nullFlavo [facility] [id number] [facility] 20:30:52 02:00:[address] [facility] 2019-03-09 2019-03-09 Inpatient E [facility] MED [id number] [facility] 18:36:00 15:30:00 2015-03-16 2015-03-23 Inpatient nullFlavo [facility] [id number] [facility] 23:33:00 01:09:[address] [facility] 2014-10-26 2014-11-01 Inpatient nullFlavo [facility] [id number] Memoria 01:37:00 01:05:00 r [place] [address] l [facility] 2013-11-13 2013-11-14 Inpatient nullFlavo [facility] [id number] Memoria 08:43:00 23:45:00 r [place] [id number] [address] 2013-05-08 2013-05-12 Inpatient nullFlavo [facility] [id number] Memoria 16:15:00 14:00:00 r Medical 64 l [facility] 2012-07-19 2012-07-21 [facility] [id number] [facility] 10:05:00 21:30:00 r Medical 37 l [facility] Results Test Description Test Time Test [...] Aliza nn 08:51:00 HEMATOLOGY 2019-03-12 2.6 [facility] Aliaz nn 08:51:00 HEMATOLOGY 2019-03-12 0.4 [facility] Aliza [...] code = MCH) 29.0 pg 27.0-31.0 [facility] UtoiavxPFXUDIECTO0438-92-20 08:51:0032.7[facility] HermannHEMATOLOGY 2019-03-12 08:51:0088.4[facility] XttbbxgWFNCKJCJKS9183-98-82 08:51:0032.2[facility] HermannPARATHYROID JKHVXLJ5347-04-94 08:51:001.05[facility] HermannPARATHYROID IJVBBQZ2165-38-71 08:51:001.05[facility] HermannCHEM SLZMN7646-47-00 21:57:0083 [facility]annCHEM OCQAZ6009-44-68 21:57:0011.4[facility] HermannCHEM PANEL 2019-03-11 21:57:008.2[facility] HermannCHEM IMWIY0756-91-91 21:57:0025[facility] HermannCHEM OXWAA7114-88-30 21:57:72301Qpmkqzer HermannCHEM JKDII7125-32-19 21:57:003.4[facility] HermannCHEM JTYSG3135-51-95 21:57:000.80[facility] HermannCHEM SHQEJ1985-33-99 21:57:07598Gmipdwjq HermannCHEM LXHAS3015-62-96 21:57:17128 [facility]annCHEM LIFCV4388-50-18 21:57:004[facility] HermannPARATHYROID KYKBFLK8574-97-95 21:57:001.07[facility] HermannPARATHYROID NCVTXEF7061-51-90 21:57:001.07[facility]annURINE AND IRLCN4310-61-67 21:57:004[facility] [place] URINE AND UFUNX0984-41-89 21:57:00Negative (03/11/19 4:57 PM)[facility] [place] URINE AND PAFPK8489-74-35 21:57:00<1.0[facility]annURINE AND STOOL 2019-03-11 21:57:00Negative (03/11/19 4:57 PM)[facility] STOOL 2019-03-11 21:57:00Negative *NA*(03/11/19 4:57 PM)[facility] ST[facility] 2019-03-11 21:57:00Negative (03/11/19 4:57 PM)[facility] ST[facility] 2019-03-11 21:57:001[facility]annUR[facility] AND HECMO8748-67-74 21:57:00Yellow *NA*(03/11/19 4:57 PM)[facility]ann[facility] AND NQMGH6971-37-50 21:57:00Slight *ABN*(03/11/19 4:57 PM)[facility] AND LQTUC3209-92-97 21:57:00 Test Item Value Reference Range Interpretation Comments UA Spec Grav (test code = UA Spec 1.016 1 Grav) [facility] AND EFNIT1031-24-49 21:57:00 Test Item Value Reference Range Interpretation Comments UA pH (test code = UA pH) 8.0 1 5.0-8.0 [facility]annURINE NPNC8731-28-41 21:57:007.4[facility] CHEM 2019-03-11 21:57:41067Ybvwcrxn HermannURINE ZDQD6722-78-52 21:57:87660Lefpalvj HermannURINE BUQR9930-99-72 21:57:64585Wiwgqati [facility]annURINE TMVA6595-36-91 21:57:00Negative (03/11/19 4:57 PM)[facility]annCHEM XIQMH8828-06-82 09:03:00 109[facility]annCHEM NIPYJ3626-36-80 09:03:002.9[facility] HermannCHEM PANEL 2019-03-11 09:03:55485Ukvikqwh HermannCHEM EVZQL9364-13-36 09:03:000.51[facility]annCHEM EYDFA6584-67-51 09:03:004[facility]annCHEM BKKUC0513-28-10 09:03:0079[facility]annCHEM EJJDX5939-37-90 09:03:007.6[facility]annCHEM KXQMS6273-82-27 09:03:009.9[facility] HermannCHEM AGMBY2674-78-25 09:03:0027 [facility]annCHEM LLQXH1583-89-34 09:03:62849Saptcoev HermannCHEM PANEL 2019-03-11 09:03:003.7[facility] HermannCHEM GLUPV8295-28-32 09:03:002.0[facility] MyvbbzvWVLYJOXNDM5214-18-51 09:03:008.1[facility] WeeunabQVDZCXSMWZ6869-21-52 09:03:25758Riidgwek WefvrcpZPGJXZRKMT0840-80-30 09:03:0016.6[facility] EFLGXXSPTW4803-12-00 09:03:00 Test Item Value Reference Range Interpretation Comments MCH (test code = MCH) 29.0 pg 27.0-31.0 [facility] MtrymcnAZWOHQVDMF4657-60-19 09:03:0033.0[facility] HermannHEMATOLOGY 2019-03-11 09:03:003.64[facility] WyugmsdXKAJGIDHSU3097-81-85 09:03:0010.6[facility] HrplqmsOUQNCFBFNK0671-26-05 09:03:009.3[facility] FucjffiHFQLLBHXBU4422-92-95 09:03:0087.8[facility] XfllhgiPSSLKGHUHA1237-05-28 09:03:0032.0[facility] RQEWUYYRQM7152-59-37 09:03:004.0[facility] QyrpxunPPUPRGUVBK5308-00-99 09:03:00 62.5[facility] SmtrbzrRIIGOTOQIC9518-85-18 09:03:0027.8[facility] HermannHEMATOLOGY 2019-03-11 09:03:004.5[facility] StuskimKRDNKNPJHS1541-29-63 09:03:005.8[facility] MtetobzKVTGJMSZWL0145-24-20 09:03:002.6[facility] VomdiovYYOKAVUVOH5865-55-08 09:03:000.4[facility] CyddxukYSJGDYYAGT6675-50-37 09:03:000.4[facility] [place] FPVNQSQAWD0061-26-15 09:03:001.2[facility] AnjpfauABZWEJAQCR4850-89-03 09:03:000.1 [facility] HermannPARATHYROID DCXLQNB6048-85-71 09:03:000.91[facility] [place] PARATHYROID IYMBDVJ9150-84-76 09:03:000.96[facility] YzeypsqXXSUQSRHWZ7624-37-89 19:00:000.3[facility] PrhbzsrTPDHFRXLTG7949-93-42 19:00:000.4[facility] [place] XVGPTGQPLF9601-44-80 19:00:002.8[facility] MrsllvyDRNHVMJOEP2956-62-34 19:00:000.1 [facility] ZkzfrfdKWDFVLBEFV2340-35-62 19:00:0061.6[facility] HermannHEMATOLOGY 2019-03-10 19:00:0029.1[facility] HwrnwgkTTBBRPBOVV0291-81-83 19:00:001.2[facility] CwzjhxfCZBJZIETZS5392-76-06 19:00:004.5[facility] RczvpgtJYVXHFQSNQ2217-07-64 19:00:005.8[facility] YrjtiuuOMGKEVUTHZ4131-79-35 19:00:003.6[facility] [place] FUGPITPJRX8615-55-78 19:00:007.9[facility] VxdxyiaGJUCVCOACR6484-84-46 19:00:00 34.6[facility] YumhdjiNGQIFLCINH9062-95-38 19:00:00 Test Item Value Reference Range Interpretation Comments MCH (test code = MCH) 28.6 pg 27.0-31.0 [facility] EvaubtiDXDMJEYJXD1387-19-47 19:00:0088.5[facility] HermannHEMATOLOGY 2019-03-10 19:00:76644Rnmelhnj AkaxlzfWOKQADKUNG2727-59-97 19:00:0016.7[facility] NfapisfBKEAYIPDHZ3590-04-01 19:00:0032.3[facility] AsuzcmkINJXJKRNOV2419-11-25 19:00:0011.2[facility] AtbaayxWQFHZRBECA7284-92-88 19:00:003.91[facility] NISYCZTBXC2400-73-07 19:00:009.5[facility] RolpmiaOAACTEOPBC1726-11-47 19:00:00 Test Item Value Reference Range Interpretation Comments INR (test code = INR) 1.06 1 0.85-1.17 [facility] StmiwevSCBYWMNISW8551-49-69 19:00:00 Test Item Value Reference Range Interpretation Comments PT (test code = PT) 13.6 s 12.0-14.7 [facility] PjyyavwMZKJUOWHHL1153-24-03 19:00:00 Test Item Value Reference Range Interpretation Comments PTT (test code = PTT) 36.3 s 22.9-35.8 [facility] HermannCARDIAC GWZVZON5810-83-21 11:47:000.30[facility] HermannCHEM PANEL 2019-03-10 11:47:001.6[facility] HermannCHEM COENK0288-25-73 11:47:002.1[facility] MfdispsVVBAGW4827-76-01 11:47:00 Test Item Value Reference Range Interpretation Comments VLDL (test code = VLDL) 39 1 [facility] ZutjztvGKBJNS1472-03-25 11:47:0036[facility] MtnyrqrLRQHPP5425-67-02 11:47:0028[facility] FrycchdLEMSJI1965-70-21 11:47:47337Maksmgcg HermannLIPIDS 2019-03-10 11:47:12884Kwtedwac PquxuzxITZXZT4901-02-96 11:47:00 Test Item Value Reference Range Interpretation Comments CHD Risk (test code = CHD Risk) 3.68 1 3.90-5.80 [facility] HermannSPECIAL ZQOELSZLM0996-54-58 11:47:004.8[facility] HermannANEMIA TRVDX7012-54-80 09:18:57293Usnfpmpn HermannANEMIA MVHSP0334-80-34 09:18:004.4 [facility] HermannCARDIAC HMXTQSR8326-52-16 09:18:0010[facility] HermannCHEM PANEL 2019-03-10 09:18:30187Odbqubun LexxxykMADPGHLYJB0301-25-05 07:49:00 Test Item Value Reference Range Interpretation Comments PTT (test code = PTT) 42.4 s 22.9-35.8 [facility] CmnzubdHPRBWIMAVX8219-65-38 07:49:00 Test Item Value Reference Range Interpretation Comments PT (test code = PT) 13.5 s 12.0-14.7 [facility] OsonruvESFLDGQPCC3752-37-60 07:49:00 Test Item Value Reference Range Interpretation Comments INR (test code = INR) 1.05 1 0.85-1.17 [facility] HermannCARDIAC QDEGMIX3061-72-67 07:00:000.48[facility] HermannCARDIAC SFXTUYC0653-24-69 22:16:000.50[facility] HermannCARDIAC IEKAIYN9402-54-68 22:16:00 63[facility] HermannCHEM UPUWD8083-09-28 22:16:001.2[facility] HermannHEMATOLOGY 2019-03-09 22:16:00 Test Item Value Reference Range Interpretation Comments PTT (test code = PTT) 31.7 s 22.9-35.8 [facility] TafkvdmEVIMAAWBVQ5505-75-31 22:16:00 Test Item Value Reference Range Interpretation Comments INR (test code = INR) 1.07 1 0.85-1.17 [facility] DeubykxHQDOIUFHOV1448-15-52 22:16:00 Test Item Value Reference Range Interpretation Comments PT (test code = PT) 13.7 s 12.0-14.7 [facility] HermannCHEM ZATLD7657-00-05 09:12:003.5[facility] HermannCHEM PANEL 2015-03-22 09:12:001.8[facility] YtevvqoYGFVOKSNQYVX9396-39-41 09:12:0022[facility] QlirfdsGGRWVZHBMXBI4913-55-98 09:12:008.9[facility] ZvlpoodRCJBAABTIYDN2630-66-94 09:12:0014.6[facility] DqrkrsyYEQOZZMADWPY2656-63-94 09:12:71715Zycseeph [place] LVRBIOKLIEMC4387-05-94 09:12:003.6[facility] NmycdciEEVTHJSACBUZ3256-41-73 09:12:000.9[facility] ShxilcgOUGPLJCKPXUX6154-77-05 09:12:30052Haqopqls [place] OEFKNDFFRLCS7159-94-38 09:12:0081[facility] DgiwjptIWSSXFQLESFM5419-21-20 09:12:00 10[facility] RhhigjsFSNFRCDZTDEZ9394-42-56 09:12:0075[facility] HermannHEMATOLOGY 2015-03-22 09:12:007.5[facility] VmthsbuQWVAXUEEPG4097-35-55 09:12:14579Mnqmlyhv BejvplgJNNEPRTDAO3757-61-04 09:12:0011.7[facility] UluqureFUZQZPTFHT0138-91-02 09:12:0032.6[facility] BqodwggGKLSNAYFII9857-35-87 09:12:0084.1[facility] [place] ZCVNGRKKHE8833-56-08 09:12:003.87[facility] GzhathdQIJPGGBLSM7654-84-50 09:12:00 10.4[facility] UbvzfujNTGGLMWJMK0365-17-95 09:12:0031.9[facility] HermannHEMATOLOGY 2015-03-22 09:12:00 Test Item Value Reference Range Interpretation Comments MCH (test code = MCH) 26.8 pg 27.0-31.0 [facility] NnqzgojKEPKWOSRLA2854-04-25 09:12:0017.6[facility] HermannHEMATOLOGY 2015-03-22 09:12:001.0[facility] AihgurvKWJMMPMFFR9547-04-95 09:12:007.4[facility] VimuoasOVIJDRJVKF9402-06-36 09:12:0038.6[facility] BmguygsXNXRSDKLJL7733-94-54 09:12:0052.0[facility] ShmwerpRYPTVDLGPU0797-28-52 09:12:001.0[facility] NLMVVBWOMI8458-31-86 09:12:006.1[facility] OedygsrDBUPHOUKVJ2845-43-92 09:12:000.1 [facility] IwbhvxcGQHCUQQLXB8286-65-97 09:12:000.9[facility] HermannHEMATOLOGY 2015-03-22 09:12:000.1[facility] ZfxklxoLYNAIZAQUL5471-92-30 09:12:004.5[facility] WfzsanbKXAENUMDWB1912-21-33 16:38:005.0[facility] GhowgxaTMEYXQMNXC7784-59-26 16:38:0014.5[facility] RbodtqhNVDDJEHNLH3541-26-85 16:38:0016.2[facility] [place] SWSHVQAPZS4002-35-89 16:38:0015.1[facility] UwvwnpoQNVAIWITGE3624-93-22 16:38:00 49.2[facility] FivbeupIFLVPRATUH8692-88-75 16:38:000.34[facility] HermannIMMUNOLOGY 2015-03-21 16:38:006.8[facility] DsptgviQTTQHWRDPD6645-09-60 16:38:003.35[facility] IvixxkuSUOQCGPATR1536-55-07 16:38:000.99[facility] RdjiupkUUREGURAKD7220-59-40 16:38:001.10[facility] KlakyceHTSDEZXOPT9444-73-14 16:38:001.03[facility] [place] CHEM EGAOJ7257-89-13 09:35:14206Fwxakdsi HermannCHEM NUOSD7854-49-80 09:35:009.1 [facility] HermannCHEM JTPIV9474-82-66 09:35:003.8[facility] HermannCHEM PANEL 2015-03-21 09:35:0021[facility] HermannCHEM ILVZR0408-02-77 09:35:54144Fumseoes HermannCHEM HBLQJ5274-90-08 09:35:0011[facility] HermannCHEM DJFIK8491-22-18 09:35:42348Qicvdxnd HermannCHEM ZAZHQ7006-05-96 09:35:0083[facility] HermannCHEM QUURY9385-96-07 09:35:000.7[facility] HermannCHEM ADUZB5243-35-41 09:35:0014.8 [facility] HermannCHEM OGJWE7153-15-43 09:35:001.8[facility] HermannCHEM PANEL 2015-03-21 09:35:004.1[facility] RbfihjyBYGYUMVRUP4090-78-28 09:35:000.1[facility] VvhxreaSLZUEJWEMM2064-11-27 09:35:000.7[facility] YuaceibHFHQRGTSHV1974-50-77 09:35:001.0[facility] UqwpipcGGEUMDGWQX0055-13-63 09:35:001.2[facility] [place] NMWNBJMSVE9637-90-38 09:35:003.7[facility] BzyqabmUIPOZJFWLR8029-72-88 09:35:005.4 [facility] TgbgosmQLRXNRYGIH9358-30-06 09:35:006.9[facility] HermannHEMATOLOGY 2015-03-21 09:35:000.1[facility] UztfvweVAAPCOYBOU7114-29-02 09:35:0054.0[facility] HosigeuOAMWEFYQMV6137-82-83 09:35:0036.9[facility] YwnecmvDOLORRKXJP5285-39-55 09:35:0032.9[facility] NnxeskuXGXHZHCBFM9655-84-87 09:35:0010.8[facility] [place] MMGVFMKBDU4300-89-02 09:35:003.91[facility] QbeduscRUFRJZMQYZ2378-50-65 09:35:00 10.0[facility] OjwbxnjUYLODCSZFP7069-64-28 09:35:0032.9[facility] HermannHEMATOLOGY 2015-03-21 09:35:0017.2[facility] TxpujfcRUNFKDWLZW3651-57-14 09:35:00 Test Item Value Reference Range Interpretation Comments MCH (test code = MCH) 27.7 pg 27.0-31.0 [facility] HgpaxapUAYSTWOVJP0247-84-21 09:35:0084.2[facility] HermannHEMATOLOGY 2015-03-21 09:35:007.5[facility] JtafthmNGUOZZGYEL9487-91-75 09:35:32772Rqfezpub CenroyyITPVBYPTNB5560-75-27 04:39:036.4[facility] HermannCHEM KYUIZ4924-35-67 08:41:18444Leksvaas HermannCHEM HBEPO1568-58-44 08:41:00169Wnfbrnkq HermannCHEM ULKRJ2408-83-12 08:41:0071[facility] HermannCHEM RQZHQ3598-86-07 08:41:007[facility] HermannCHEM KTPHS1385-62-63 08:41:000.7[facility] HermannCHEM RXNUQ5976-02-76 08:41:003.9[facility] HermannCHEM CXLUZ0543-15-55 08:41:009.2[facility] HermannCHEM FDGKB8652-50-98 08:41:90377Xaikziok HermannCHEM HUOEL0888-41-17 08:41:0023 [facility]annCHEM XESHG9353-15-92 08:41:0013.9[facility] HermannCHEM PANEL 2015-03-20 08:41:001.9[facility] HermannCHEM ZESQP0502-51-64 08:41:003.6[facility] AzynjzyTPVEPLSRWL7859-31-57 08:41:0033.2[facility] WadybpyRHFDEXRKWR0493-33-76 08:41:34490Yhuvxdcq RqergvaIPJTQCSKME8648-03-03 08:41:0017.2[facility] VDMQXHOZEQ8824-42-01 08:41:004.07[facility] WsxvpelLYZJOJDGSF6226-55-26 08:41:00 9.6[facility] IiigsahPBHPIXMSMD9051-73-61 08:41:0011.2[facility] HermannHEMATOLOGY 2015-03-20 08:41:0033.6[facility] KzmkgzeJPAOWNURNY0382-03-89 08:41:0082.6[facility] NfqtanwUCENGYWPRY4972-52-09 08:41:00 Test Item Value Reference Range Interpretation Comments MCH (test code = MCH) 27.4 pg 27.0-31.0 [facility] FxphkyrQTKOOYVNVH4738-52-22 08:41:007.7[facility] HermannHEMATOLOGY 2015-03-20 08:41:0055.3[facility] NadacftDVQTNXWLVU4468-14-77 08:41:001.9[facility] KhapmjhDBBOSZWFRT2098-88-83 08:41:0035.6[facility] IosgfjgDHXOVENHFR6292-70-29 08:41:006.2[facility] GbkjdfsXHXKYNEYNH6878-47-64 08:41:001.0[facility] FKPZNIIVHE8634-38-84 08:41:005.3[facility] NmpvxhaEVCMWREVLT5354-91-65 08:41:003.4 [facility] WydmnhtWQNVLHEEVW1538-44-78 08:41:000.6[facility] HermannHEMATOLOGY 2015-03-20 08:41:000.1[facility] VnaftmwZIBEMNWQZZ9439-33-13 08:41:000.2[facility] CoqkwieFOCODVFBPO6540-20-73 08:41:37013Zmfbbgvu SirdmdqKXPCCQKWVG9851-62-97 16:56:000.91[facility] CooebqdRQJBPKYRZR2470-83-29 16:56:00Negative (03/19/15 11:56 AM)[facility] TzqghbtGWNRQRURFT4862-21-47 16:56:00Non Reactive *NA*(03/19/15 11:56 AM)[facility] KzxhiabNAUGMAJTYB7135-95-59 21:44:00Negative *NA*(03/18/15 4:44 PM) [facility] HermannVIRAL - YRGGBOWL6398-65-86 21:44:00<0.90[facility] [place] CARDIAC WTGOJWF5032-61-06 00:57:00<0.02[facility] JefznrfXEAXYPFYKC7620-26-12 18:50:00 Test Item Value Reference Range Interpretation Comments PT (test code = PT) 14.5 s 12.0-14.7 [facility] InhfxevNRYLLKXICZ5443-53-81 18:50:001.12[facility] HermannHEMATOLOGY 2015-03-17 18:50:00 Test Item Value Reference Range Interpretation Comments PTT (test code = PTT) 31.2 s 22.9-35.8 [facility] HermannCARDIAC TPDBEII3580-78-94 17:15:00<0.02[facility] HermannCHEM RWBSX1778-08-52 17:15:0071.0[facility] HermannBODY HQWKYN1892-13-82 16:15:0042 [facility] HermannBODY ATVGDI5457-65-94 16:15:009[facility] HermannBODY FLUIDS 2015-03-17 16:15:001[facility] HermannBODY WHPKKR2089-14-89 16:15:0090[facility] HermannBODY OTINOP5122-32-12 16:15:00Clear (03/17/15 11:15 AM)[facility] BODY DLHVFE2270-41-22 16:15:00Colorless (03/17/15 11:15 AM)[facility] HermannBODY LCSZVP2460-86-08 16:15:00 Test Item Value Reference Range Interpretation Comments Tube Num CSF (test code = Tube Num CSF) 3 1 [facility] HermannBODY KUOORV0402-79-71 16:15:00Colorless (03/17/15 11:15 AM) [facility] HermannBODY RODWUA8446-37-61 16:15:003[facility] HermannBODY FLUIDS 2015-03-17 16:15:48216Cuwgehxp HermannBODY EOCIQB0917-19-06 16:15:0071[facility] KxuqcbqALMEZIIKVN4191-17-26 16:15:00Non Reactive (03/17/15 11:15 AM)[facility] HermannMOLECULAR KJWMGAOQYW2856-09-56 16:15:00Negative 9(03/17/15 11:15 AM) [facility] HermannMOLECULAR SRZDQZAKYO7307-38-47 16:15:00Negative 8(03/17/15 11:15 AM)[facility] HermannVIRAL - ZXTGBIZY3638-72-68 16:15:00Negative (03/17/15 11:15 AM)[facility] HermannBACTERIAL - VVXZPEVB1824-28-89 12:34:00Negative (03/17/15 7:34 AM)[facility] EkgyldzXGMMQBZGRT2913-38-27 04:26:25771Ivmnkrro HermannBLOOD BANK ALGTWKN0625-18-29 02:18:00Negative (03/16/15 9:18 PM)[facility] HermannCHEM PANEL 2015-03-17 02:18:000.7[facility] HermannCHEM SFYQR7632-36-33 02:18:0012[facility] HermannCHEM BACCZ8876-83-04 02:18:003.9[facility] HermannCHEM OIISN5083-04-51 02:18:005[facility] HermannCHEM WXUTK5282-44-54 02:18:11104Lasenmrw HermannCHEM FQYAR1231-15-58 02:18:000.2[facility] HermannCHEM UYFBG7426-74-52 02:18:0019 [facility] HermannCHEM FCJVO9976-08-91 02:18:006.8[facility] HermannCHEM PANEL 2015-03-17 02:18:002.9[facility] HermannDRUG BSDMQK2094-14-30 02:18:00See Note *NA*(03/16/15 9:18 PM)[facility] HermannDRUG AYYBOZ6818-76-73 02:18:00Negative *NA*(03/16/15 9:18 PM)[facility] HermannDRUG ORQDPK3355-74-51 02:18:00Negative *NA*(03/16/15 9:18 PM)[facility] HermannDRUG TMPMFP0016-58-45 02:18:00Negative *NA*(03/16/15 9:18 PM)[facility] HermannDRUG YOVCAF9457-17-10 02:18:00Negative *NA*(03/16/15 9:18 PM)[facility] HermannDRUG OJHGIJ3913-94-29 02:18:00Negative *NA*(03/16/15 9:18 PM)[facility] HermannDRUG FJYFWZ5697-61-72 02:18:00Negative *NA*(03/16/15 9:18 PM)[facility] HermannDRUG UWRUPT4027-00-55 02:18:00Negative *NA*(03/16/15 9:18 PM)[facility] HermannDRUG JWRTQY2187-25-38 02:18:00Negative *NA*(03/16/15 9:18 PM)[facility] HermannDRUG LOIZOW3478-87-67 02:18:00Negative *NA*(03/16/15 9:18 PM)[facility] QrqcjzwYQCUFBOSOC9365-44-07 02:18:00 Test Item Value Reference Range Interpretation Comments PTT (test code = PTT) 29.7 s 22.9-35.8 [facility] HermannPARATHYROID AGAQDCZ2268-60-49 02:18:001.15[facility] [place] PARATHYROID JHEDMXN4937-70-94 02:18:001.12[facility] HermannURINE AND STOOL 2015-03-17 02:18:00Negative *NA*(03/16/15 9:18 PM)[facility]annURINE AND STOOL 2015-03-17 02:18:00Negative (03/16/15 9:18 PM)[facility]annURINE AND STOOL 2015-03-17 02:18:00Negative (03/16/15 9:18 PM)[facility]annURINE AND STOOL 2015-03-17 02:18:00Negative (03/16/15 9:18 PM)[facility]annURINE AND STOOL 2015-03-17 02:18:00<1[facility]annURINE AND CGCTZ3801-87-25 02:18:007.0 [facility]annURINE AND IRSMG0522-18-62 02:18:00Clear (03/16/15 9:18 PM) [facility]annURINE AND LOFLE8115-98-42 02:18:001.009[facility] HermannURINE AND KDKUQ9794-41-58 02:18:00Light Yellow *NA*(03/16/15 9:18 PM)[facility] AGXUDFYIWN5823-39-28 13:30:00 Test Item Value Reference Range Interpretation Comments PTT (test code = PTT) 36.1 s 22.9-35.8 [facility] MxauhrmTJVJKFSFTL0413-63-74 13:30:00 Test Item Value Reference Range Interpretation Comments PT (test code = PT) 14.6 s 12.0-14.7 [facility] CpwktiiJPSOOEZTWX7590-23-05 13:30:001.13[facility] HermannTOXICOLOGY 2014-10-31 13:30:916986Yjrqnkxb KythftoQMLLYMEXVL4513-93-15 13:30:0025.2[facility] HermannCHEM IGNBL3288-39-55 06:18:003.1[facility] HermannCHEM NSBXD7504-35-83 06:18:001.8[facility] XetubgkJVVDNNZFTYIL1233-92-61 06:18:0014.1[facility] [place] VWPAFFYDDNQE1959-54-37 06:18:41609Cpuucwos SmbyvcrMIZEHNLFPRQL6435-14-77 06:18:12565Rfvihrck XjagrklPCFLRPNLSALB7105-21-63 06:18:27329Dygqalrh [place] BMIZQGWSHNAL8735-45-03 06:18:004.1[facility] HswddssOKEVIMHSWYJA2429-49-51 06:18:008.5[facility] IgsztbcWRQSSDDLPUWV2704-62-73 06:18:0025[facility] [place] HRDQCVLYPMQQ5600-93-05 06:18:000.6[facility] MoiozgjREAOQYQTAJEQ1568-32-15 06:18:0062[facility] LvjfytrJFZFYBFDBXZX4765-65-63 06:18:006[facility] [place] LICLOWWEML8412-94-82 06:18:000.1[facility] CywhtsiLHSRJBOTHI8305-96-85 06:18:005.7 [facility] AdohdarYNFZCNUQQX7346-19-13 06:18:005.0[facility]annHEMATOLOGY 2014-10-31 06:18:0031.1[facility] NtfbfpcAEWHLDBXCC7274-91-83 06:18:005.7[facility] BnflihnUENCZWKZQI7327-19-97 06:18:0057.7[facility] PzdjldhSPVYAYMKYS1199-99-88 06:18:000.5[facility] JodvteuTUEIPSCMHH6949-71-21 06:18:000.6[facility] ZNPYUOFHTR4034-68-08 06:18:000.5[facility] LymlwtrDOQAKOWCAB2739-75-50 06:18:003.1 [facility] AomzexdWKFGXHOLVX5982-13-11 06:18:001.08[facility]annHEMATOLOGY 2014-10-31 06:18:00 Test Item Value Reference Range Interpretation Comments PTT (test code = PTT) 33.9 s 22.9-35.8 [facility] HxygrwsFXRMPMIOOD0975-73-91 06:18:00 Test Item Value Reference Range Interpretation Comments PT (test code = PT) 14.1 s 12.0-14.7 [facility] PgjkvvrGYQJKHJQIA9048-70-15 06:18:0010.0[facility]annHEMATOLOGY 2014-10-31 06:18:003.22[facility] KvcbcviEGZMPXHIYB3424-50-51 06:18:0028.9[facility] LvtqihwMXLCAXMPTM7347-59-43 06:18:009.7[facility] NutbdghCHXDYOLDXD7588-60-12 06:18:0033.4[facility] YaegcmpVOWPNXZODI2309-35-64 06:18:00 Test Item Value Reference Range Interpretation Comments MCH (test code = MCH) 30.0 pg 27.0-31.0 [facility] ZbqnjkjROJAAAXLGP6662-56-13 06:18:0089.8[facility]annHEMATOLOGY 2014-10-31 06:18:008.2[facility] AjkmpkqDFOVOWXOFF4944-13-26 06:18:65946Rcdehyoy YtvcoutWMRUNUYKOH6278-31-60 06:18:0016.4[facility]annPARATHYROID PROFILE 2014-10-31 06:18:001.08[facility]annPARATHYROID ZTJXGAZ3464-13-45 06:18:00 1.05[facility]annCARDIAC VDWKCQV6420-17-46 07:00:0070[facility]annCHEM TAWTA9545-29-79 07:00:003.2[facility]annCHEM HJCAM6859-58-01 07:00:001.8 [facility] IcprzkvZNOYIFXHSKRX8691-79-80 07:00:0010.6[facility]annELECTROLYTES 2014-10-30 07:00:0079[facility] BizonqaRZGGMQDCLRLY7889-60-57 07:00:008[facility] WztxpblTDMIPNNCQTYX1315-52-18 07:00:000.6[facility] NcgugutYXBZPPLUHNQM8475-24-19 07:00:0027[facility] BzmjjuuTWVNVXIZUUJQ4691-70-64 07:00:008.1[facility] QPOOQXMRWZZO6222-06-12 07:00:003.6[facility] VqdaqpqXLRTLLSLZIJE9007-67-90 07:00:03449Wxwconsd NmlllesWHMKOWXSNKWM9734-95-68 07:00:13959Pcdkjdeq [place] NRRDLSLHUZUW5233-15-91 07:00:72713Wwkjdama RunovuzRWDAXRPPAK3009-88-83 07:00:00 0.4[facility] QusfksuCVKSHIYNGQ3961-37-94 07:00:004.9[facility]annHEMATOLOGY 2014-10-30 07:00:000.6[facility] PiaoloeLVOERFTPYV5991-36-34 07:00:0049.4[facility] BsjaoueZBTIBNAJVR7505-15-79 07:00:005.8[facility] LdillxmVAFHBOSTEQ8703-96-97 07:00:003.7[facility] WnygrupOSJCJIHWSW6726-19-21 07:00:0041.4[facility] [place] WVHJPGTJLJ1272-67-42 07:00:000.4[facility] BnhbjlzAKIKUDABJQ1950-93-82 07:00:005.1 [facility] JizkeanAQUCBWAGTT8497-13-55 07:00:00 Test Item Value Reference Range Interpretation Comments MCH (test code = MCH) 29.4 pg 27.0-31.0 [facility] EjmvtkrMZSHTJAZHJ6470-85-75 07:00:0027.5[facility]annHEMATOLOGY 2014-10-30 07:00:0016.3[facility] UthkhctTRXYNCQQJK2249-53-05 07:00:70271Ygwkajcd XixpyjlVFRXROPCMP1583-21-50 07:00:008.4[facility] NutcproNUYXZRIEVY1766-79-17 07:00:009.1[facility] HqrhbrnRKWAITJPFL9033-40-61 07:00:0033.0[facility] RYUNJHUIKX6721-98-62 07:00:003.09[facility] OvfcpexPZFOLUYLBP1699-85-34 07:00:00 11.8[facility] LnfvnqvZNLNDKSRKQ3621-33-90 07:00:0089.0[facility]annHEMATOLOGY 2014-10-30 07:00:00 Test Item Value Reference Range Interpretation Comments PT (test code = PT) 13.5 s 12.0-14.7 [facility] RjetexpNBJFOUJKUW5154-86-20 07:00:001.03[facility]annHEMATOLOGY 2014-10-30 07:00:00 Test Item Value Reference Range Interpretation Comments PTT (test code = PTT) 31.6 s 22.9-35.8 [facility] HermannPARATHYROID KCDASHN7103-92-88 07:00:001.10[facility] [place] PARATHYROID EJKXBZD0618-71-34 07:00:001.11[facility] KfltphpNXWOOKCBBR2461-46-74 05:00:004.8[facility] HwvaykpWQMTBIHNFC0413-67-23 05:00:003.1[facility] [place] HGZCQLGENX0368-13-48 05:00:0053.2[facility] EfmgeveZGBQVBTWDD0657-76-29 05:00:00 38.5[facility] ExljtjyEAOQOZJALD4968-63-60 05:00:0014.9[facility]annHEMATOLOGY 2014-10-30 05:00:0032.8[facility] ZruuckeCHHZJIFQWZ3202-86-01 05:00:00 Test Item Value Reference Range Interpretation Comments MCH (test code = MCH) 30.3 pg 27.0-31.0 [facility] TlbuedbHVEVTFUJSX7373-26-30 05:00:0092.2[facility]annHEMATOLOGY 2014-10-30 05:00:0016.3[facility] NbijewhBBOXNZYFPO6552-91-50 05:00:004.9[facility] BwspvfsGZYCLLEUYQ2822-11-36 05:00:001.61[facility] MvdsmpqAJIUWXRZFY8607-34-77 05:00:006.0[facility] QxkehgjECEJBMGWXB3326-09-65 05:00:008.1[facility] RVQFKUYGGL4280-82-61 05:00:0073[facility]annPARATHYROID CDQWSXM5920-10-19 05:00:000.63[facility] HermannPARATHYROID YNRTCGB4061-71-97 05:00:000.62[facility]annCARDIAC KPUMFHX8832-14-20 05:00:0049[facility]annCARDIAC ENZYMES 2014-10-30 05:00:00<0.010[facility]annCARDIAC XWSUMLC5318-81-42 05:00:00 0.02[facility] TtjpqrdAPEFPHZVIN3628-73-45 05:00:000.2[facility]annHEMATOLOGY 2014-10-30 05:00:000.3[facility] AgomdteLJUAATKMIG1147-78-63 05:00:000.4[facility] JnsfgvqTOLWWIDCVT3585-15-53 05:00:003.2[facility] LhmywtcCMMADGDRNL6521-99-13 05:00:002.3[facility]annCARDIAC GJWXDRS2540-39-16 23:18:00<0.02[facility]annCARDIAC LTRFUOC0000-42-18 23:18:00<0.010[facility]annCARDIAC UJDXYOV4440-25-94 23:18:0083[facility]annCARDIAC NCQLGKV3736-43-56 23:18:00 0.7[facility]annCARDIAC HOOAOXE4747-95-25 23:18:000.6[facility] TBEGQDGUUR0911-56-15 21:45:504110Cwguruof WfrzhxyCKCZIOBTUM0664-13-14 21:45:00 23.9[facility]annCHEM IPTWY6997-02-46 10:42:000.7[facility]annCHEM PANEL 2014-10-29 07:00:001.8[facility]annCHEM VJBTL2615-33-99 07:00:002.8[facility] MfnkkngMKGIUTQGHMQG3340-82-36 07:00:0011.0[facility] JlzdnseSXLMRPFFQQDY6685-03-56 07:00:0010[facility] WbqzvquXZFTGYSSNGJQ0073-11-78 07:00:0083[facility] FKYXTQAUDUNK4410-12-42 07:00:89575Ktcsyffn AgkdswhNKGKBWMKWXXG3517-18-55 07:00:000.7[facility] SmymqthRDUYQIRILYKQ3824-01-00 07:00:45867Hwrohfpd [place]rera AOCCJNBWRQPA0632-02-45 07:00:0024[facility] IjziwkjAILZVZCOXSUF0096-99-64 07:00:00 7.9[facility] IjydvglPNGGEGUABLIO7456-74-54 07:00:30020Sxgmntxe [facility]rera XGYTPYBSQSJQ6797-26-86 07:00:004.0[facility] YjgrcxjDIGIDHTCMF9726-74-74 07:00:00 0.1[facility] EemsyqoGEOHBISCLW6950-77-31 13:36:009.7[facility] HermannHEMATOLOGY 2014-10-28 11:00:00 Test Item Value Reference Range Interpretation Comments Pat Od Value (test code = Pat Od 0.046 1 Value) [facility] IiasjjlXDVPUVNPCF3839-80-39 11:00:00 Test Item Value Reference Range Interpretation Comments Pos CO Value (test code = Pos CO 0.392 1 Value) [facility] GfllydsNARSOCJHKF1185-35-30 11:00:00Negative (10/28/14 6:00 AM)[facility] HermannCHEM WMOER2142-95-75 15:45:001.0[facility] QtrromnZICWCCHABB9015-38-35 11:00:0024.4[facility] HermannTHYROID URGTP0127-12-45 11:00:000.120[facility] HermannTHYROID PHCDY4659-52-33 11:00:000.96[facility] HermannCHEM OQJVM5784-41-02 07:00:001.6[facility] IxnwfziHUPQDUTIIM2609-99-26 07:00:00Normal (10/27/14 2:00 AM) [facility] ZhbsmrlIUYKKKHBFD4615-37-79 07:00:00Normal (10/27/14 2:00 AM)[facility] MkhhpxoDDGSQGJXOO2760-48-10 01:49:0028[facility] IsgxpefUJSXOLGWTD3626-78-07 23:06:00<0.1[facility] JjzbuioQPVIIAZJGI5441-43-44 23:00:00<0.1[facility] HermannBLOOD BANK PWTCOFN4408-11-13 21:24:00Negative (10/26/14 4:24 PM)[facility]annCHEM EGBEM0819-19-49 21:14:0070[facility] HermannCHEM OPVNF1305-52-09 21:14:000.15[facility] EnqjlgaKHVCOVMALH9502-62-83 21:14:50771Qkquoeko Cabrera PFKQQMRNTR0772-70-94 21:14:000.21[facility] LiyevufBFUDEDYWTT2866-19-56 21:14:00 29.2[facility] HermannCARDIAC TCTZWGU3352-51-73 18:30:00<0.010[facility] CARDIAC UTRCKOM2063-33-16 18:30:000.02[facility] HermannCHEM IOTFL8982-79-01 18:30:000.14[facility] BgbiduyBXIOEZHGTD3608-28-94 18:30:00Normal (10/26/14 1:30 PM)[facility] SuraqwgMJKGAHAHZH2473-91-00 18:30:00Normal (10/26/14 1:30 PM)[facility] XppzmnyRXCIGAKLXP5863-23-32 18:30:000.0[facility] ZgvcuiyRTFIRXFKYY9206-81-51 18:30:001.0[facility] HermannCHEM FVJPT1636-15-39 11:15:000.1[facility] HermannCHEM HVOQZ7570-37-37 11:15:000.2[facility] HermannCHEM WSHRI1905-98-02 11:15:000.1 [facility] HermannCHEM DLARY1659-01-75 11:15:0011[facility] HermannCHEM PANEL 2014-10-26 11:15:70154Gdanxvby HermannCHEM AJLAU3342-38-42 11:15:002.9[facility] HermannCHEM ESWRK1582-09-49 11:15:003.2[facility] HermannCHEM CNBPS9741-84-87 11:15:006.1[facility]annCHEM YJZZA0510-37-12 11:15:0023[facility]annCHEM OVHRP1182-84-18 11:15:000.9[facility] IgycofjIUJPFCBIGL8465-99-85 11:15:000.1 [facility]annCHEM BDDRP7958-34-81 09:01:000.05[facility] HermannDRUG SCREEN 2014-10-26 06:40:00Negative (10/26/14 1:40 [...] HermannURINE AND STOOL 2014-10-26 06:40:005[facility]annURINE AND ISFKB6953-62-18 06:40:0028[facility]annUR[facility] AND BCLQA1379-46-88 06:40:00Negative (10/26/14 1:40 AM)[facility] CDACK4202-23-32 06:40:00Negative (10/26/14 1:40 AM)[facility] AND OGZWT4570-79-59 06:40:00Negative (10/26/14 1:40 AM)[facility]ann[facility] AND FGTRH6720-20-71 06:40:00<=1.0[facility]annURINE AND STOOL 2014-10-26 06:40:00Negative (10/26/14 1:40 AM)[facility]annUR[facility] AND STOOL 2014-10-26 06:40:001.009[facility]annURINE AND HCXZI9899-35-15 06:40:00Slight *ABN*(10/26/14 1:40 AM)[facility]annUR[facility] AND GOMQL8521-17-30 06:40:00Yellow (10/26/14 1:40 AM)[facility]annUR[facility] AND EBQKN2955-88-93 06:40:005.0[facility] JbsshhuGMTHZKZIZI6390-53-68 02:45:00 Test Item Value Reference Range Interpretation Comments Angle (test code = Angle) 76.5 degrees 53.0-72.0 [facility] FnyfpfdAQPWUSJEGV9889-67-14 02:45:00 Test Item Value Reference Range Interpretation Comments Max Amp (test code = Max Amp) 74.1 mm 50.0-70.0 [facility] OtpjaxiZUOYETPJIA7116-79-49 02:45:0014.3[facility] HermannHEMATOLOGY 2014-10-26 02:45:00See Note 23(10/25/14 9:45 PM)[facility] HermannHEMATOLOGY 2014-10-26 02:45:003.4[facility] PkjmnwdXBLAGUGWJP4433-16-51 02:45:00 Test Item Value Reference Range Interpretation Comments K-time (test code = K-time) 1.0 min 1.0-3.0 [facility] EeosknfKJADDXOJQL3434-50-33 02:45:00 Test Item Value Reference Range Interpretation Comments R-time (test code = R-time) 5.1 min 5.0-10.0 [facility] SpndmfoBEEDOTGSTP8328-38-40 02:45:000.9[facility] AtufojuKHWVYZ3916-42-49 02:45:0035[facility] GrwzzzvYPYFIC6618-39-75 02:45:0060[facility] HermannLIPIDS 2014-10-26 02:45:002.76[facility] UkbnfiyFONLCY6929-96-17 02:45:0054[facility] WppsruzAMQITR9368-84-03 02:45:92295Aydxwcxz ZzwwrqvYLDMNI8308-77-69 02:45:80984 [facility] HermannSPECIAL SUDFPABCO8175-64-16 02:45:005.7[facility] HermannCHEM BDPTP9922-69-52 09:44:003.7[facility] HermannCHEM JAPAN8293-73-84 09:44:001.7 [facility] CyfpjdyIUHQROOFPBSX3287-05-80 09:44:0013.6[facility] HermannELECTROLYTES 2013-11-14 09:44:0087[facility] XktnuzzQRCPVCAMFCYK6191-25-18 09:44:0023[facility] FpbgzutCDTBWDBPYLYE7542-58-33 09:44:0070[facility] DdwbaguYNLNMYUPNYEP8719-74-69 09:44:000.8[facility] DtvwcmzUKBGHFOEPFXO0039-71-66 09:44:30000Eaqrazgl [place] OLJPVAZDIPEY8559-62-95 09:44:004.6[facility] YozsgtwTIFJEKRWDKMS7696-20-37 09:44:01297Ozfdohpg MyahegsXSAYYIGFSCWR3709-67-94 09:44:0024[facility] ZVQWBAYELOXU6487-69-15 09:44:008.8[facility] GnknbgoCQTBIIDXKB2585-27-92 09:44:00 1.97[facility] KxgzjxmHJAIQBUMCD2636-00-01 09:44:00 Test Item Value Reference Range Interpretation Comments PT (test code = PT) 22.1 s 12.0-14.7 [facility] QbhsbcfCDGUPX1851-13-58 09:44:0093[facility] EobfftvWCNLFK2955-81-87 09:44:0066[facility] LgkvepsXTVJJD0265-14-42 09:44:41394Nmhqrser HermannLIPIDS 2013-11-14 09:44:09625Zqwtizgn WyfcdqhWGRTIS6424-87-60 09:44:0038[facility] TuzhlacBEFPDD2873-87-66 09:44:005.18[facility] HermannDRUG KEQQYA3309-01-05 01:09:21Positive *ABN*(11/13/2013 20:09:21 [place] HermannDRUG UUBTDQ4128-13-64 01:09:21See Note 5(11/13/2013 20:09:21 [place])[facility] HermannDRUG OTYOXA6717-98-05 01:09:21Negative *NA*(11/13/2013 20:09:21 [facility] HermannDRUG VGWKWE6448-75-66 01:09:21Positive *ABN*(11/13/2013 20:09:21 [place])[facility] HermannDRUG YHUZGJ9125-78-00 01:09:21Positive *ABN*(11/13/2013 20:09:21 [place])[facility]annDRUG OPOJYY9809-38-10 01:09:21Negative *NA*(11/13/2013 20:09:21 [place] HermannDRUG WKKAPW4184-69-85 01:09:21Negative *NA*(11/13/2013 20:09:21 [place])[facility] HermannDRUG XMOBFW6630-83-46 01:09:21Negative *NA*(11/13/2013 20:09:21 [place])[facility] HermannDRUG DLIVRT3815-54-69 01:09:21Negative *NA*(11/13/2013 20:09:21 [place])[facility]annDRUG QZNEIZ1806-10-77 01:09:21Negative *NA*(11/13/2013 20:09:21 [place]UR[facility] AND OSNUO7455-33-07 01:09:002[facility]annURINE AND HRQIO4530-42-26 01:09:00Slight *ABN*(11/13/2013 20:09:00 [place] TTVKS0793-26-64 01:09:00Yellow *NA*(11/13/2013 20:09:00 [place] AND WTHWD4952-78-90 01:09:006.5 [facility]UR[facility] AND PYZIJ7360-33-25 01:09:001.024[facility]annUR[facility] AND AMXCU9965-84-95 01:09:00Negative (11/13/2013 20:09:00 [place] AND YQUYZ2914-11-37 01:09:00Negative *NA*(11/13/2013 20:09:00 [place] AND PDUBB2887-64-34 01:09:00Small *ABN*(11/13/2013 20:09:00 [place] AND STOOL 2013-11-14 01:09:00Negative (11/13/2013 20:09:00 [place] AND ZZWVH4702-58-40 01:09:003[facility]annURINE AND STOOL 2013-11-14 01:09:001[facility]annURINE PDHF8391-33-66 01:09:00Negative (11/13/2013 20:09:00 [place])[facility] HermannCARDIAC ULBFUIK4403-82-80 19:43:00<0.010[facility] HermannCARDIAC XIHRZFF4995-62-77 19:43:00<0.02 [facility] HermannCARDIAC GIGYNYP5231-38-31 19:43:27477Lrnfenhx HermannCARDIAC RXHTRQD0617-00-93 19:43:000.5[facility] HermannCARDIAC MXLJDSY2789-40-48 19:43:00 0.5[facility] HermannCHEM NJMOQ4166-55-85 19:43:000.1[facility] HermannCHEM PANEL 2013-11-13 19:43:000.2[facility] HermannCHEM MLTTR0777-87-39 19:43:000.1[facility] HermannCHEM FBEDD1596-38-17 19:43:0024[facility] HermannCHEM BGWDX8437-55-54 19:43:000.9[facility] HermannCHEM IAHOI5731-39-37 19:43:0040[facility] HermannCHEM BDEIS1587-32-42 19:43:006.4[facility] HermannCHEM ZWHVD3439-37-28 19:43:003.0 [facility] HermannCHEM TBSSN7816-51-24 19:43:003.4[facility] HermannCHEM PANEL 2013-11-13 19:43:91819Xsbrhfrd HermannSPECIAL ZYXRGUPID3083-54-40 19:43:005.0 [facility] HermannCARDIAC UWBCOCW3153-08-07 09:29:000.6[facility] HermannCARDIAC URJRFAU0203-79-06 09:29:00<0.02[facility] HermannCARDIAC NDGLVDU1373-08-57 09:29:000.6[facility] HermannCARDIAC XOFSWAS6241-45-01 09:29:24400Mfoaclcz [place]rera CHEM WPBZB8005-58-37 09:29:0075[facility] HermannCHEM PGSYO9184-33-47 09:29:0013.1 [facility] HermannCHEM ULWSQ9125-22-28 09:29:0026[facility] HermannCHEM PANEL 2013-11-13 09:29:49359Rmrkqekm HermannCHEM WVJAB8699-99-44 09:29:008.6[facility] HermannCHEM CPHEE1797-64-68 09:29:000.9[facility] HermannCHEM PTLJV0815-01-71 09:29:0012[facility] HermannCHEM ARHLL7399-85-50 09:29:004.1[facility] HermannCHEM CPLOD9353-06-26 09:29:54828Dfldjdmp HermannCHEM SUXFP2832-64-41 09:29:0081 [facility] BdxcafqLQUGTTYMNM3795-11-90 09:29:004.1[facility] HermannHEMATOLOGY 2013-11-13 09:29:001.4[facility] WboiunyCUZLCBXTDR9275-66-95 09:29:000.0[facility] FrcedtmWBJDRARPWQ6115-99-42 09:29:004.7[facility] CysiexeCHISASMQOK8401-30-98 09:29:006.0[facility] JjhwalmLXZUCZNJHI6765-93-62 09:29:000.5[facility] UWDHKNIICC2764-64-05 09:29:0041.0[facility] SxcyewvVRTMBGSUOF5722-05-19 09:29:00 53.5[facility] QfbldcxVZOOPPNPDV8955-65-77 09:29:000.2[facility] HermannHEMATOLOGY 2013-11-13 09:29:000.0[facility] KojzoqpGKSHLPICGE9807-42-35 09:29:00 Test Item Value Reference Range Interpretation Comments PT (test code = PT) 24.2 s 12.0-14.7 [facility] LtesfsfVHSRLHACDN9429-45-60 09:29:002.22[facility] HermannHEMATOLOGY 2013-11-13 09:29:00 Test Item Value Reference Range Interpretation Comments PTT (test code = PTT) 39.1 s 22.9-35.8 [facility] NlqfpnqIOTJSGYHRR7220-02-84 09:29:79937Qbdtymcq HermannHEMATOLOGY 2013-11-13 09:29:0017.1[facility] BcnvpoeAJCBFRKGEM6258-92-95 09:29:007.0[facility] LbxmxzkEQWWEOOSTW5521-75-82 09:29:0033.7[facility] OrqalsjBNQZSCMHVL6286-74-73 09:29:00 Test Item Value Reference Range Interpretation Comments MCH (test code = MCH) 28.2 pg 27.0-31.0 [facility] IkbioglOPEMMZOFTM1065-73-01 09:29:004.35[facility] HermannHEMATOLOGY 2013-11-13 09:29:0011.4[facility] ObqzzupUMBDLSHANG4763-66-52 09:29:0083.7[facility] WaltwlmLACEHHAOVP6794-32-16 09:29:0012.3[facility] KygifhyVRSUAPWFAU6261-12-69 09:29:0036.4[facility] TncdzpsCVAZOFHFS7897-21-17 07:35:0015.8[facility] YHOXRYMPR9865-48-36 07:35:31528Pjgwbjfj EcwxlwhHENJDXNTQ4569-37-58 07:35:0023 [facility] FjiamzuZFRUWQCKQ2563-76-14 07:35:80094Exxqcpxr HermannCHEMISTRY 2013-05-12 07:35:000.3[facility] RojatkdNIZSCMFIX1026-33-25 07:35:007.7[facility] FgkgzlhWWCFQKTKH1649-93-75 07:35:005[facility] NexbzvzUEDCROUHB5392-37-40 07:35:00 72[facility] WhenplyYXJBLOGLY0065-97-74 07:35:63277Wueyqcod HermannCHEMISTRY 2013-05-12 07:35:003.8[facility] NpdvlkzIGIPKHIPQZ8622-47-57 07:35:007.8[facility] QxizxovMBUWQVLZBO0089-48-67 07:35:003.5[facility] XtzkkzzKNSTNZYIEA7682-25-73 07:35:000.9[facility] GpoqqkfZWALFFWMYQ2832-88-72 07:35:000.3[facility] [place] PHZJRDQONI6719-23-60 07:35:000.1[facility] WynhnlrQVHVMZMEZR6922-90-71 07:35:007.4 [facility] ArawqhcBYUKKQKVRT3941-04-12 07:35:000.7[facility] HermannHEMATOLOGY 2013-05-12 07:35:0027.8[facility] JzacvhuEPSUOTZHNZ5644-01-16 07:35:002.7[facility] DmldsekORNQWOVQJA3192-83-67 07:35:0061.4[facility] OejnvhcQHEHFCLQZA4114-36-10 07:35:0088.5[facility] GcpypkpEFXKKHXULM9794-08-31 07:35:0015.2[facility] [place] TWGSVBRXKM5012-25-03 07:35:0032.5[facility] MujucwfRNUGQDIPKH6690-30-74 07:35:00 252[facility] CxxcbmmWBTMIKUGPV0613-99-50 07:35:007.7[facility] HermannHEMATOLOGY 2013-05-12 07:35:0012.8[facility] TrgivrsNLUWXPXAPL4222-02-71 07:35:003.82[facility] ZxvnsqaZPNKEXZRRP1517-22-82 07:35:0011.0[facility] QouwtztISTJAGIHES0923-78-94 07:35:0033.8[facility] CggzvlhRYJKIWSSHI5561-55-32 07:35:00 Test Item Value Reference Range Interpretation Comments MCH (test code = MCH) 28.8 pg 27.0-31.0 [facility]SE MZSLCYM8719-61-56 11:52:0089[facility] ADYEBQOML6511-03-21 07:00:00Negative (05/11/2013 02:00:00[facility] UTLXFTVLC9149[facility]14-23 07:00:00Negative (05/11/2013 02:00:00)[facility] WRRJMJZRE6133-57-32 07:00:00Negative (05/11/2013 02:00:00)[facility] FJWIAOZDO1109-28-86 07:00:00Negative (05/11/2013 02:00:00)[facility] HPZTRJDVA7593-29-20 07:00:00Positive *ABN*(05/11/2013 02:00:00)[facility] HZJPSLMJY2810-60-48 07:00:00See Note 12(05/11/2013 02:00:00)[facility] ATUCNKAXD1936-36-10 07:00:00Negative (05/11/2013 02:00:00)[facility] RUMSDEDRV5785-99-25 07:00:00Negative (05/11/2013 02:00:00)[facility] [place] OIDXVBZOP4505-60-94 07:00:00Negative (05/11/2013 02:00:00)[facility] EAUGZLHHU7471-49-67 07:00:00Negative (05/11/2013 02:00:00)[facility] [place] FNLITOWRL2468-62-43 07:00:001.09[facility] HysgezjLXBUEUWVL6785-91-86 07:00:001.07 [facility] PujhxffEGCGNIAKK9651-19-53 07:00:002.0[facility] HermannCHEMISTRY 2013-05-11 07:00:002.6[facility] OmaelzpBNTQNXDED8340-14-63 07:00:68022Pvptehtx JggszbdAMPEZGWEJ9243-38-07 07:00:008.0[facility] YolqxzlSWQTUJCNG1930-45-83 07:00:0017.7[facility] ZmkstikGHEQHJHZT2648-75-79 07:00:007[facility] [place] RQUWXEMJI6136-57-05 07:00:0059[facility] RclyxzdFWTJCUMRE7171-63-23 07:00:000.6 [facility] WrkcxheENSRBKWMQ5274-21-06 07:00:40064Oucgsdue HermannCHEMISTRY 2013-05-11 07:00:003.7[facility] HbothzeKJWPLFLPA4411-50-57 07:00:10649Zosqqnoh CrfugiqZMJKROJRD1173-75-05 07:00:0021[facility] LwvbfazRUPKOYMFR6876-45-29 07:00:00See Note 13(05/11/2013 02:00:00)[facility] DttzirwYEEFHSAUMX2168-91-84 07:00:0017.2[facility] DjyhernDSUYSBNLPZ8765-60-46 07:00:69204Rdweysek [place] YLCJLSGSEY4235-50-60 07:00:008.7[facility] YvyeanaQAYXQPRNHM2278-62-71 07:00:00 88.4[facility] PmmpxcqZPJQEKOTVO3203-31-03 07:00:00 Test Item Value Reference Range Interpretation Comments MCH (test code = MCH) 29.4 pg 27.0-31.0 N [facility] CifootsBHJGQPEIMH2981-86-65 07:00:0015.3[facility] HermannHEMATOLOGY 2013-05-11 07:00:0033.2[facility] RjqwfjpMHBXGKCGIG1292-74-81 07:00:003.75[facility] FcpngqmZGFZRWHQSF1175-95-94 07:00:0011.0[facility] RgawgblEUMHHMYCQA8425-87-69 07:00:0033.1[facility] CfuiqqzYBRCFXQPMU7765-28-85 07:00:004.4[facility] ETVAHETKDR1127-35-05 07:00:0077.7[facility] GpvupfaKCOBWOTMYZ3461-96-80 07:00:00 0.8[facility] RbursbmNMESUDWQCT3870-53-34 07:00:0013.4[facility] HermannHEMATOLOGY 2013-05-11 07:00:002.7[facility] BzxxvfxAWTDWINLDT2688-80-31 07:00:000.8[facility] ElswfisIAARTENPZB6316-73-16 07:00:001.5[facility] NmxuvysBFPPXELPZE6435-44-00 07:00:0015.6[facility] JchyndyPFRGMPGCUV9366-71-14 07:00:000.1[facility] [place] RDLQFZRPML5209-14-27 07:00:000.3[facility] HermannBEDSIDE GLUCOSE TESTING 2013-05-11 04:53:0079[facility] CjtxbwfLXEQLBDBJF3137-55-34 23:12:13446Rdvzfpvu MrpzgksGKSUBFNXID2424-42-99 23:12:00Positive (05/10/2013 18:12:00)[facility] DfaqxkvKEIONEXDNV9199-02-46 23:12:001.06[facility] VfzsnyhQOFQQKXHKB8789-92-65 23:12:0070[facility] TmyynhfLNFBPXWZCO1682-85-14 23:12:00>100 mm/hr *ABN*(05/10/2013 18:12:00)[facility] PqziuwdFXWRBLYXLY4442-43-37 23:12:0035 [facility] BwmdjafMXZYAZZPMY5241-13-62 23:12:0068[facility] HermannIMMUNOLOGY 2013-05-10 23:12:001[facility] LgbbyluSQBZJEKFKG6968-33-14 23:12:001[facility] UdxjnanZMTGUXWFHE4713-54-16 23:12:005.2[facility] KcftdvmCZDVRJGGXG1309-57-49 23:12:0040[facility] PxslakmKOINJIZCFK0010-48-88 23:12:08231Catmyrmy [place]rera ZFEAYAJKCI6108-86-99 23:12:00Negative *NA*(05/10/2013 18:12:00)[facility] EAASXIFFTI6388-08-81 23:12:00>190.0[facility] HermannBACTERIAL - SEROLOGY 2013-05-10 21:41:00Negative (05/10/2013 16:41:00)[facility] HermannMICRO MISC - AHAVSBCJ3169-91-44 21:41:00Negative 1(05/10/2013 16:41:00)[facility] BEDSIDE GLUCOSE ISGLFJN7336-54-77 16:57:0096[facility] DounebqTSKUFQKINQ7620-76-13 14:50:398[facility] JerxourMUUWACWWLG5843-18-94 14:50:39Few /LPF *NA*(05/10/2013 09:50:39)[facility] SrbqhfbFLVGCKDZJI3470-89-01 14:50:39<1[facility] FNMWIXWFCI5102-93-26 14:50:39Few /LPF *NA*(05/10/2013 09:50:39)[facility] [place] RUFSAEUAVL4302-64-60 14:50:39<1[facility] CtitnvkXQPMHVFVLJ9996-64-25 14:50:39 Negative (05/10/2013 09:50:39)[facility] GcusvdwIAYHWVQGFS9134-74-14 14:50:39 Negative (05/10/2013 09:50:39)[facility] TwyiggoOKJNSPTDVN3386-01-20 14:50:39 Negative (05/10/2013 09:50:39)[facility] GrzsdvmEBVATIJGXJ2004-92-43 14:50:39 Negative mg/dL *NA*(05/10/2013 09:50:39)[facility] UbhrvljLWVSGOJGCX0001-91-87 14:50:39Negative *NA*(05/10/2013 09:50:39)[facility] EysbtqnJUUTJVHVIG7877-46-35 14:50:391.006[facility] FsilpgpBQFRLJUWKC8043-98-27 14:50:39Clear (05/10/2013 09:50:39)[facility] RdyqmxjIIBEQHSQKX9071-24-05 14:50:39Light Yellow *NA*(05/10/2013 09:50:39)[facility] VdpxoklMWCJBWYEFT2323-09-18 14:50:39Negative mg/dL (05/10/2013 09:50:39)[facility] TrgvffjTTRUMDAJXA2560-93-23 14:50:397.5 [facility] IzllcmfXSTQUMKNL0092-83-98 07:52:0087[facility] HermannCHEMISTRY 2013-05-10 07:52:16238Dxocmjdx RafvofjZGDMGSHZB7042-18-70 07:52:0014.emorial TamovnxCYYOMXAPL9632-28-42 07:52:007.8[facility] AgryyvxLOUGGIOAI5768-77-76 07:52:45285Dpdkhahr OntuecoLQCJZAYMO3517-15-92 07:52:003.6[facility] [place] ECZSSTBUJ0669-83-98 07:52:0024[facility] AarzzgvPCWXVDZNM3966-10-87 07:52:000.8 [facility] DtoebgbGHXAVOGSS5164-98-83 07:52:007[facility] IvoabfkNCWNCIYHD3480-52-45 07:52:0051[facility] UmzrvrwSSUBNNYKV0694-25-78 07:52:001.[facility] MACQNKQHO8699-27-01 07:52:002.2[facility] MolbpywHPGYCHODXH0953-65-48 07:52:00 Test Item Value Reference Range Interpretation Comments MCH (test code = MCH) 29.1 pg 27.0-31.0 N [facility] UhxowxoJYTXQQZDHH6250-26-22 07:52:0033.8[facility]annHEMATOLOGY 2013-05-10 07:52:0089.2[facility] WxwlunySABUSLOCZY3783-19-94 07:52:0011.0[facility] BtbjpfsSLLVBPIEMM8095-12-28 07:52:008.5[facility] DzqronyNAWXPNPSGP8511-43-54 07:52:34849Pofjejam HehrxpjVXLXRBTYRA5208-66-37 07:52:0015.1[facility] EAXYNKQFQC0715-13-06 07:52:0032.6[facility] GyiziyzKBTXTYPPPO0015-83-88 07:52:00 3.79[facility] AmxjfflYRGETXSPZL8902-82-69 07:52:0022.1[facility]annHEMATOLOGY 2013-05-10 07:52:000.1[facility] GlyydttIXCNAFDTAQ7311-48-90 07:52:000.6[facility] SttwknwZKJLFQCLKH4806-20-23 07:52:000.2[facility] JxoccmmPVSZFDADSM1444-14-48 07:52:0083.0[facility] XoujyuzDNSPKPCKHN5036-10-88 07:52:002.9[facility] [place] EWRGRNKMKA1200-23-09 07:52:0018.3[facility] RqwgtsiXNBCPFQEER3282-17-08 07:52:00 0.4[facility] NdjbsikUAJARNDWMI8822-03-96 07:52:001.0[facility]annHEMATOLOGY 2013-05-10 07:52:0012.9[facility] CgkxxrsJOPSNYWNPW0003-45-07 07:52:002.7[facility] NqwwiybSGWPTWUKPU0716-81-13 19:56:0055[facility] StrdpfhOFCOEXFNQM3981-64-45 19:56:75715Lxjceaxa ObxjfuuDSNDFQAWUT8239-58-95 19:56:73261Twkgxisa [facility] AHGCPAUTYQ6683-58-07 19:56:00Negative (05/09/2013 14:56:00)[facility] HRWXRKTAHB6186-34-10 19:56:00Negative (05/09/2013 14:56:00)[facility] [place] SXGRYRPDHP9586-58-09 19:56:00Negative (05/09/2013 14:56:00)[facility] [place] FBHVEPUEQZ9477-48-35 19:56:00>190.0 mg/L 15(05/09/2013 14:56:00)[facility] NvqtrbmZKINIQXKVJ6857-50-11 19:56:00Negative (05/09/2013 14:56:00)[facility] RiicandJLCVLRWZAV4538-25-74 19:56:0034[facility] YszehsuHKDLRVARI7157-05-21 16:10:242.3[facility] LsgjfsmCZVLMLYGZ5369-49-79 16:10:241.4[facility] IGEKPQHET0408-96-96 16:10:191.8[facility] PfxpavqZDYLMAAHI9793-25-80 10:34:0071 [facility] NjspcemLWBQBCYFW9015-40-61 10:34:0036[facility]annCHEMISTRY 2013-05-09 10:34:27039Exofuaae OsgfmisALTZBRMGS6190-44-49 10:34:18544Eikpywau EkqfqswJDSYPLUZQ6979-38-52 10:34:003.67[facility] SpnipzfSMDUXELKE8877-26-15 10:34:004.9[facility] QukjduwYHJUQJFYM1317-19-52 00:11:00Negative *NA*(05/08/2013 19:11:00)[facility] WtnbsfrVRBYCXZNX1174-37-16 00:11:00See Note 11(05/08/2013 19:11:00)[facility] BzziphnPLJIWVTWH1561-94-82 00:11:00Positive *ABN*(05/08/2013 19:11:00)[facility] TdpqthmYNOGNPDTN2345-82-57 00:11:00Negative *NA*(05/08/2013 19:11:00)[facility] DfjkuadNGHKWRONP0056-52-02 00:11:00Negative *NA*(05/08/2013 19:11:00)[facility] TowitedBIJLWRYDH3838-13-81 00:11:00Negative *NA*(05/08/2013 19:11:00)[facility] XnrsyvdOJNHYJXHT6436-76-82 00:11:00Negative *NA*(05/08/2013 19:11:00)[facility] XghmyapWNQTKEMBY4111-91-75 00:11:00Negative *NA*(05/08/2013 19:11:00)[facility] JdwbsnmUXAPTPCOO5021-13-77 00:11:0054[facility]annCHEMISTRY 2013-05-09 00:11:005.8[facility] DqfraddOWJEWDPOC6002-34-03 00:11:000.2[facility] EpokhgvDQYFHLHDV1150-01-87 00:11:002.8[facility] TttutnuTTTBGOCYA6944-87-44 00:11:0095[facility] CjapbiqTFTSGABUK6572-99-11 00:11:0029[facility] [place] GRHDARHXN0127-20-73 00:11:000.9[facility] QmybqxlDJLNBNQIU3300-19-33 00:11:0015 [facility] WnwsucsQPFLQVHDC5175-92-92 00:11:003.0[facility] HermannURINALYSIS 2013-05-09 00:11:00Slight *ABN*(05/08/2013 19:11:00)[facility]annURINALYSIS 2013-05-09 00:11:001.013[facility] LmvvwkpSFPBATLNPQ3456-48-66 00:11:00Small *ABN*(05/08/2013 19:11:00)[facility] QruvypdOHKYHGVXXU6591-43-66 00:11:00Negative (05/08/2013 19:11:00)[facility] GamknfhIWSVWDAROB8397-47-67 00:11:00Negative (05/08/2013 19:11:00)[facility] FlcfbbzPGZBAKHMFR4691-26-34 00:11:005.0[facility] CqmkceuRCULJBVOMQ7095-48-11 00:11:0030 mg/dL *ABN*(05/08/2013 19:11:00)[facility] ZdpszdpGZSLCVVTLO1598-96-86 00:11:00Negative mg/dL *NA*(05/08/2013 19:11:00) [facility] EdcwwfaRLUPJRRHRZ0266-59-63 00:11:00Yellow *NA*(05/08/2013 19:11:00) [facility] EyffqvlXVOXEZUPHI7781-29-88 00:11:00Few /LPF *NA*(05/08/2013 19:11:00) [facility] BdggawpJPHZDHZSDM1035-13-92 00:11:001[facility]annURINALYSIS 2013-05-09 00:11:00Negative mg/dL *NA*(05/08/2013 19:11:00)[facility] [place] EAUAZCSNYW6167-53-12 00:11:00Negative *NA*(05/08/2013 19:11:00)[facility] IWVARTMPOU8285-07-21 00:11:00Few /LPF *NA*(05/08/2013 19:11:00)[facility] [place] GBURBRKLGQ0319-55-97 00:11:00Occasional /HPF *NA*(05/08/2013 19:11:00)[facility] HermannBEDSIDE GLUCOSE YXISOGB1927-02-04 12:28:0087[facility]annCHEMISTRY 2012-07-21 08:53:22160Ekxujqal LmjgdfuCOKEUKJBG3647-66-68 08:53:0024[facility] SkcrhpwIWZRYDUMP7313-23-38 08:53:70403Dinnkyli PtrmgrfTWPGHAHDY1900-43-11 08:53:34554Dmsgndtr WygtoixWRPYPJORZ9841-26-56 08:53:008.08[facility] OORNFMADH9348-03-59 08:53:003.2[facility] YrcbgusZBNLCHJMP1787-71-04 08:53:001.9 [facility] CoabvnmSPXVBTVKU4762-51-26 08:53:0014.1[facility] HermannCHEMISTRY 2012-07-21 08:53:009[facility] VknlrwsVXNGVOMTC5454-93-54 08:53:0077[facility] WovpampZQIIYSHVF6253-75-95 08:53:28386Sacstbkg SrthouyUSZGQPJBH1254-20-65 08:53:05452Hirgwjvd AinebggMDOMIXHKD4736-32-00 08:53:50436Qzehbnzn [place] TJRZLBPCR2537-10-51 08:53:004.1[facility] WghavgpVQQWTWFEC9382-92-75 08:53:000.7 [facility] PehrsuiMLPMXCBBZ9005-18-40 08:53:0027[facility] HermannCHEMISTRY 2012-07-21 08:53:008.0[facility] GmykwveTRTAYXVOY6153-57-70 08:53:005.8[facility] AyphngvKABKBXQFEB8221-43-79 08:53:006.8[facility] LrbdeljGAKTVYNHZA3589-71-52 08:53:81114Omvdnwcc ZgliwrqQIYGFQNDBS5198-06-80 08:53:0088.7[facility] [place] JGIGXXMFUS1132-15-32 08:53:00 Test Item Value Reference Range Interpretation Comments MCH (test code = MCH) 29.4 pg 27.0-31.0 N [facility] OcyujurXGDTKCRQQB2589-60-35 08:53:0033.1[facility] HermannHEMATOLOGY 2012-07-21 08:53:0015.0[facility] AizxsmjIEOKBOHIWJ3759-90-30 08:53:0038.4[facility] AidkxydFFEZFYSCJJ3115-61-35 08:53:004.34[facility] LlisrlhIXLUGAFVUZ6986-74-33 08:53:0012.7[facility] TosqbowPNGSWQYNOP6480-71-16 08:53:0011.7[facility] MNEXNHWPDQ6805-24-20 08:53:000.5[facility] XryzkreDEVRGSMKJI3047-32-69 08:53:005.9 [facility] OahxfifMWRFLRWNDG7778-01-89 08:53:006.0[facility] HermannHEMATOLOGY 2012-07-21 08:53:0041.5[facility] BevlztdLTZYDALYRU5103-59-29 08:53:001.9[facility] SgbvpneFTNVQNPJZS1882-40-30 08:53:0050.1[facility] BiebnooBWTRPKATAK9857-01-36 08:53:000.7[facility] XuhafrkVFPSPMWOCY4376-43-48 08:53:004.8[facility] NOETSDGTOI4012-05-42 08:53:000.2[facility] YsnokxvLAEZYDPPDS9039-99-13 08:53:000.1 [facility] HermannBEDSIDE GLUCOSE WHUXQUF9781-37-01 02:50:12812Oyyooaom [place] AWPLVLQDNH6342-14-98 01:10:00Yellow *NA*(07/20/2012 19:10:00)[facility] XELSAESOSU7396-81-36 01:10:0020 mg/dL *ABN*(07/20/2012 19:10:00)[facility] [place] PSNOHPWXZL9400-51-58 01:10:006.5[facility] TeqfxfeCXKFSQHWQP0743-52-68 01:10:00 Negative mg/dL *NA*(07/20/2012 19:10:00)[facility] OhnmlhyJCPGFXOCYE2999-77-20 01:10:001.020[facility] QmtoddvTXZMZARAXN5961-54-81 01:10:00Slight *ABN*(07/20/2012 19:10:00)[facility] RbmaovgICUPWERCOB0453-34-38 01:10:00Negative (07/20/2012 19:10:00)[facility] HntdwjfOPSSYRPTGF9582-31-94 01:10:00Trace *ABN*(07/20/2012 19:10:00)[facility] QcwlwtcKPJMPJYPEE4607-83-17 01:10:00Many /LPF *ABN*(07/20/2012 19:10:00)[facility] FjfbotaVPPYMGCBJL7503-01-54 01:10:00Small *ABN*(07/20/2012 19:10:00)[facility] YhnfgxdIHXBSLXIYV4596-64-35 01:10:00Negative *NA*(07/20/2012 19:10:00)[facility] OhneatxRCSASUYCVO8167-50-60 01:10:00Occasional /HPF *NA*(07/20/2012 19:10:00)[facility] ImeapizNJYHXASOVO5103-04-79 01:10:00Few /LPF *NA*(07/20/2012 19:10:00)[facility] YazwrbbYRWXVJDRTI8750-04-77 01:10:00Few /HPF *NA*(07/20/2012 19:10:00)[facility] CnvmjwfPHBOJLTIHZ4143-99-91 01:10:001 [facility] OhznhbfVLQXWEEIFF4544-67-61 01:10:006[facility]annURINALYSIS 2012-07-21 01:10:001[facility] HermannBEDSIDE GLUCOSE JJDVWNQ4060-61-59 12:05:0086 [facility] LkyjbxlSXSERTQIE8055-96-57 08:50:0014.7[facility] HermannCHEMISTRY 2012-07-20 08:50:0088[facility] PhadqzgGLVIOCSWF8748-76-02 08:50:0077[facility] RwsklodQDZBSRKUS1506-54-81 08:50:0013[facility] IykqduoGYLYJBHTK7817-09-84 08:50:000.8[facility] NmvfvgwZPZSHKKBW6664-82-38 08:50:76743Msfmjsry [place] YBIVCVAED7201-51-25 08:50:003.7[facility] KpsvkhiCMSQKXRPK2817-39-47 08:50:0097 [facility] KumrdvgLUXJHWZSU4913-62-28 08:50:0029[facility] HermannCHEMISTRY 2012-07-20 08:50:008.3[facility] KrcbpthKMXCDJMJRL9894-17-27 08:50:000.7[facility] JgncgjxCLPXSLSJPL2669-41-53 08:50:004.3[facility] LrpsvwoTERKCIYOPU6170-33-42 08:50:006.9[facility] VjwcrgzHIEQMIEHDV2457-42-38 08:50:000.8[facility] EJCWBGSLPB7684-49-70 08:50:001.2[facility] WfjfxuuUFNIZNACOB3508-34-92 08:50:000.1 [facility] TwrmuzbSHXUFATJWS7617-36-44 08:50:000.1[facility] HermannHEMATOLOGY 2012-07-20 08:50:005.6[facility] TeqclxoQTWVIVFDIZ8681-85-13 08:50:0035.7[facility] DvyerzkVHVKHIAOJJ0460-35-35 08:50:0056.7[facility] RsambktNIMLSXAEXB9987-17-23 08:50:0088.3[facility] RgfjibzCGWSWZNFMW7134-00-72 08:50:0041.1[facility] WTGMFSISUC4281-80-67 08:50:0013.7[facility] LppvngoVNQIWYGGEV7002-11-34 08:50:00 4.66[facility] PzsgbokKWIQGOUQRH8560-24-23 08:50:0012.2[facility] HermannHEMATOLOGY 2012-07-20 08:50:006.8[facility] TkztizaXNSPXNEZWF3294-16-94 08:50:77218Atnclgrn ErugixaMREMYCIEQK5621-58-67 08:50:0015.6[facility] RpxthwnFILHPUHVMK0370-41-99 08:50:0033.3[facility] MnrqpbeYUSPEJKODG1628-79-67 08:50:00 Test Item Value Reference Range Interpretation Comments MCH (test code = MCH) 29.4 pg 27.0-31.0 N [facility] HermannBLOOD BANK HKBOWYP3733-96-39 13:30:00Negative (07/19/2012 07:30:00)[facility] ZqxodvgJYTPLJVGK4410-45-80 13:30:0062[facility] HermannCHEMISTRY 2012-07-19 13:30:0067[facility] SeefbsqDGWKDLJLG7326-99-53 13:30:0030[facility] JfbqixaGOMUKXXYX0259-45-62 13:30:008.8[facility] WoiiawkRMXGDUFZI7567-41-87 13:30:0012[facility] WjmeyhjRQALUYHMD7329-63-94 13:30:001.0[facility] [place] YFVUNKVLH8394-60-20 13:30:52365Axuxtwpx XdphqhlPJNVVQPBL1835-87-86 13:30:004.1 [facility] XpixrrfGBUWHEMDK7265-36-38 13:30:0099[facility] HermannCHEMISTRY 2012-07-19 13:30:15081Dvkpuspa XiobgbnCSGQFLYBF3753-99-83 13:30:0013.1[facility] PjlifclHGWWSWVYZ6845-33-91 13:30:00<0.02[facility] RosvuwvOSIXFRHYMK3353-97-31 13:30:001+ *ABN*(07/19/2012 07:30:00)[facility] UpqxmqpZTZJZWSTLB8236-28-28 13:30:000.0[facility] DavrqeoXYJOYEVUAB8353-62-70 13:30:00Slight *ABN*(07/19/2012 07:30:00)[facility] WerzogbAJEFNQHGKU2586-35-93 13:30:00Slight (07/19/2012 07:30:00)[facility] RtanybgFPVAOZXWEB7811-99-97 13:30:000.0[facility] HVBXCEAYGI8834-24-53 13:30:004.0[facility] ZaceiypKPVWQFBUWR6394-72-04 13:30:00 30.0[facility] WxrbvchBNHVUHVCGP3112-28-85 13:30:001.0[facility] HermannHEMATOLOGY 2012-07-19 13:30:005.4[facility] PnswdzoFNNILJRMPH4900-43-61 13:30:0011.8[facility] RibqnbrBIUEVGZPFH6649-13-75 13:30:000.2[facility] BgvcjazMDBEXYHVMC1494-60-42 13:30:000.7[facility] LuqlavoDDZNYYJUAR5372-38-83 13:30:0065.0[facility] QXCTNJETYH9738-41-25 13:30:000.97[facility] PrrakakADAMTRUONK2219-51-84 13:30:00 Test Item Value Reference Range Interpretation Comments PT (test code = PT) 13.1 s 12.0-14.7 N [facility] ThvammrUIWQCRQBVT0711-38-44 13:30:004.1[facility] HermannHEMATOLOGY 2012-07-19 13:30:00 Test Item Value Reference Range Interpretation Comments ACT (TEG) (test code = ACT (TEG)) 113 s 86-118 N [facility] BnhgcrbPDGQRJWDZX9816-84-18 13:30:00 Test Item Value Reference Range Interpretation Comments Split Point (test code = Split Point) 0.6 min [facility] QgsifscNJVUKNFDAW0501-29-05 13:30:00 Test Item Value Reference Range Interpretation Comments Angle (test code = Angle) 82 degrees 64-80 H [facility] PcwobfyPXJMYWNKUD2370-96-51 13:30:00 Test Item Value Reference Range Interpretation Comments Max Amp (test code = Max Amp) 81 mm 52-71 H [facility] KrfddfmFQAGOOCYSR9311-79-56 13:30:00 Test Item Value Reference Range Interpretation Comments K-time (test code = K-time) 0.8 min 0.6-2.3 N [facility] EfbdxtdZXKFUKPWPS2383-69-55 13:30:0020.9[facility] HermannHEMATOLOGY 2012-07-19 13:30:00 Test Item Value Reference Range Interpretation Comments R-time (test code = R-time) 0.7 min 0.4-0.7 N [facility]WOIT9418-23-80 13:30:00 Test Item Value Reference Range Interpretation Comments PTT (test code = PTT) 32.1 s 22.9-35.8 N [facility] CenterCowcphjYVDSRWWGLO2090-99-73 13:30:0015.0[facility] HermannHEMATOLOGY 2012-07-19 13:30:005.06[facility] EblattcREZPTBYAHQ0348-81-30 13:30:0014.8[facility] JflanfjLBZQIOAQFR0919-75-97 13:30:0033.3[facility] CawusniCBVBLMSIXF4718-64-19 13:30:0018.1[facility] HapkqfvDDDPWSICGV9943-86-99 13:30:0044.9[facility] ZESTOVDTUT5810-56-73 13:30:007.1[facility] MixqvasBAETAFFWIO8241-59-02 13:30:00 Test Item Value Reference Range Interpretation Comments MCH (test code = MCH) 29.5 pg 27.0-31.0 N [facility] TbmcvubZURJWYCTRE7267-92-25 13:30:0088.8[facility] HermannHEMATOLOGY 2012-07-19 13:30:74411Irvvuoyz [place]
--- NOTE | 2021-08-19 18:11 | RAD REPORT ---
EXAM DESCRIPTION: RAD - Chest Single View - 08/19/2021 5:45 pm CLINICAL HISTORY: CHEST PAIN COMPARISON: Chest Single View dated 04/05/2021; Chest Single View dated 03/02/2021; Chest Single View dated 12/11/2020; Chest Single View dated 10/23/2020 FINDINGS: Lines: None. Lungs: Mild basilar airspace opacities, left greater than right. Pleural: No significant pleural effusions or pneumothorax. Cardiac: Cardiomegaly. Bones: No acute fractures. Sternotomy. Other: IMPRESSION: Basilar opacities, left greater than right favored represent atelectasis.
[2021-08-19 18:15] LABS: Absolute Lymphocytes (CBC) 2.7 K/uL (0.7-4.9); Hematocrit 44.3 % (36.0-45.0); Lymphocytes % 13.6 % (15.3-44.8); MPV 9.2 fL (7.6-11.3); RBC Red Blood Cell Count 5.22 M/uL (3.86-4.86)
[2021-08-19 18:23] LABS: Protime INR 8.01
[2021-08-19 18:27] LABS: Albumin 2.7 g/dL (3.4-5.0)
[2021-08-19 18:35] LABS: Bilirubin Total 0.7 mg/dL (0.2-1.0); Protein, Total 7.4 g/dL (6.4-8.2); Troponin (Emerg Dept Use Only) 0.1 ng/mL (0.0-0.045)
[2021-08-19 18:38] LABS: Magnesium 2.3 mg/dL (1.8-2.4); Potassium 4.7 mmol/L (3.5-5.1)
[2021-08-19 18:39] LABS: Bilirubin Direct 0.1 mg/dL (0-0.2)
[2021-08-19 18:55] LABS: Blood Morphology Comment NOT SEEN (NOT SEEN); Platelet Estimate DECR; White Blood Cell Scan OK (OK)
--- NOTE | 2021-08-19 19:15 | ER ---
Nurse's Notes [facility] Name: Kathy Whyte Age: 56 yrs Sex: Female : 1965 Arrival Date: 08/19/2021 Time: 16:58 Bed 8 Private MD: Diagnosis: Subsequent non-ST elevation (NSTEMI) myocardial infarction Presentation: 08/19 17:14 Chief complaint: EMS states: pt called for chest pain and nausea with rt arm pain. pt jh6 with Hx of chronic chest pain and nausea due to PTSD but states that she doesn't normally have rt arm pain. pt took home NTG and stated that it did help the chest pain but Zofran did not help nausea. Coronavirus screen: Vaccine status: Patient reports being unvaccinated. Client denies travel out of the [place] in the last 14 days. Ebola Screen: Patient denies travel to an Ebola-affected area in the 21 days before illness onset. Initial Sepsis Screen: Does the patient meet any 2 criteria? No. Patient's initial sepsis screen is negative. Does the patient have a suspected source of infection? No. Patient's initial sepsis screen is negative. Risk Assessment: Do you want to hurt yourself or someone else? Patient reports no desire to harm self or others. Onset of symptoms was August 19, 2021. 17:14 Method Of Arrival: EMS: [place] [facility] 17:14 Acuity: ARI 3 [facility] Triage Assessment: 17:19 General: Appears in no apparent distress. Behavior is cooperative. Pain: Complains of [facility] pain in right arm Pain currently is 6 out of 10 on a pain scale. Quality of pain is described as crampy. Neuro: No deficits noted. Cardiovascular: No deficits noted. Respiratory: No deficits noted. GI: Reports nausea, vomiting. Historical: - Allergies: 17:17 Compazine; [facility] 17:17 Demerol; [facility] 17:17 Morphine; [facility] 17:17 Neurontin; [facility] 17:17 NSAIDS; [facility] 17:17 Stadol; [facility] 17:17 Toradol; [facility] - Home Meds: 17:17 bupropion HCl 200 mg Oral TbER 1 tab 2 times per day [Active]; carvedilol 12.5 mg Oral jh6 tab 1 tab 2 times per day [Active]; Eliquis Oral [Active]; lisinopril 20 mg Oral tab [Active]; methocarbamol 750 mg Oral tab 1 tab every 4 hours [Active]; Risperdal 1 mg Oral tab 1 tab 2 times per day [Active]; sertraline 100 mg Oral tab 1 tab once daily [Active]; topiramate 25 mg Oral CSpX 1 cap once daily [Active]; triazolam 0.25 mg Oral tab 2 tabs once daily [Active]; - PMHx: 17:17 Anxiety; Congestive heart failure; CVA; Deep vein thrombosis; Depression; High jh6 Cholesterol; Hypertension; Myocardial infarction; Seizures; - Immunization history:: Client reports having NOT received the Covid vaccine. - Social history:: Smoking status: Patient denies any tobacco usage or history of. Screenin:16 Abuse screen: Denies threats or abuse. Nutritional screening: No deficits noted. jh6 Tuberculosis screening: No symptoms or risk factors identified. Fall Risk None identified. Assessment: 18:12 Reassessment: Patient and/or family updated on plan of care and expected duration. Pain jh6 level reassessed. Patient is alert, oriented x 3, equal unlabored respirations, skin warm/dry/pink. attempted multiple times with u/s for iv access. was able to get and send blood and after speaking with provider about ej, currently waiting for lab results. General: Appears in no apparent distress. Behavior is calm, cooperative. 21:22 Reassessment: " I am in a lot of pain and I want to know what is going on." Nursing tw5 staff advocated for PO medications while awaiting IV acess. 22:30 General: Patient continued to yell at staff " I know you keep telling me that there are tw5 people that are in respiratory distress and critical, what other excuses are you going to give me for not seeing me. When I walked by you seemed to be just playing on your computer." Nursing staff apologized for the wait and asked if patient would like to speak to the charge nurse " I am going to speak to administration about you!". 22:30 General: General: PA and charge nurse sent into see patient. . General: Appears tw5 Behavior is agitated, anxious, restless. Neuro: Level of Consciousness is awake, alert, obeys commands, Oriented to person, place, time, situation. 08/20 00:57 Reassessment: Patient appears in no apparent distress at this time. No changes from tw5 previously documented assessment. Patient and/or family updated on plan of care and expected duration. Pain level reassessed. Pain: Complains of pain in chest Pain currently is 9 out of 10 on a pain scale. Quality of pain is described as pressure. 01:04 General: "I am sorry about earlier, I was just frustrated.". tw5 02:53 General: Behavior is calm, cooperative. Cardiovascular: Heart tones S1 S2 present. tw5 Respiratory: Airway is patent Trachea midline Respiratory effort is even, unlabored. 03:58 General: Reports " I feel like my blood pressure is too high for me." Blood pressure tw5 rechecked. 05:00 General: Reports " I still feel like my blood pressure is too high and I feel like that tw5 is why I having that feeling of pressure in my chest.". Pain: Complains of pain in chest Pain currently is 5 out of 10 on a pain scale. 05:14 GI: Reports " A couple of days ago I was vomiting what looked like dark tarry blood, tw5 and my urine was really really dark like it had blood in it." Patient denies any emesis during her hospital stay. 05:48 General: Reports " I really dont feel any different since you gave me that medication, tw5 but my arm is hurting." Patient is referring to the left arm pain. Vital Signs: 08/19 17:14 BP 126 / 71; Pulse 76; Resp 18; Temp 97.7(O); Pulse Ox 97% on R/A; jh6 18:15 BP 116 / 67; Pulse 72; Resp 18; Pulse Ox 99% ; jh6 21:34 BP 138 / 109; Pulse 78; Resp 14; Pulse Ox 100% on R/A; tw5 22:00 Pain 8/10; tw5 08/20 01:03 BP 116 / 61; Pulse 81; Resp 18; Pulse Ox 96% on R/A; Pain 6/10; tw5 02:53 BP 132 / 68; Pulse 81; Resp 14; Pulse Ox 94% on R/A; tw5 03:58 BP 142 / 92; Pulse 81; Resp 18; Pulse Ox 96% on R/A; tw5 04:27 Weight 77.11 kg; Height 5 ft. 3 in. (160.02 cm); tw5 05:00 BP 140 / 87; Pulse 89; Resp 18; Pulse Ox 100% on R/A; tw5 05:48 BP 146 / 83; Pulse 80; Resp 18; Pulse Ox 99% on R/A; Pain 6/10; tw5 04:27 Body Mass Index 30.11 (77.11 kg, 160.02 cm) tw5 ED Course: 08/19 16:58 Patient arrived in ED. eb 17:00 Mike Mari PA is PHCP. eb 17:00 David Smyth MD is Attending Physician. eb 17:00 Arm band placed on Patient placed in an exam room, on a stretcher, on quality assurance monitor final, jh6 on pulse oximetry. 17:13 Linsey Alaniz, RN is Primary Nurse. jh6 17:17 Triage completed. jh6 17:45 XRAY Chest (1 view) In Process Unspecified. EDMS 18:00 EKG done, by ED staff, reviewed by Mike LAKHANI. jh6 18:17 Call light in reach. Side rails up X 1. monitoring engineer on. Pulse ox on. NIBP on. jh6 19:12 Primary Nurse role handed off by Linsey Alaniz, PRASHANT 19:15 Cara Olivo MD is Hospitalizing Provider. jr8 20:42 COVID swab sent to lab. lt3 20:43 COVID-19 SARS RT PCR (Document "Date of Onset" if Symptomatic) Sent. lt3 21:22 Jovanna Fonseca is Primary Nurse. tw5 21:34 Door closed. Noise minimized. Moved to private room. Warm blanket given. Verbal tw5 reassurance given. 22:05 Abdomen In Process Unspecified. EDMS 23:30 Inserted saline lock: 18 gauge in right EJ, using aseptic technique. Blood collected. tw5 08/20 01:03 Placed in gown. Bed in low position. Door closed. Noise minimized. Moved to private tw5 room. Warm blanket given. Pillow given. Verbal reassurance given. 01:08 Repeat lab(s) drawn. by ca, sent to lab. tw5 02:53 Served as a test lead application testing during rectal exam. tw5 05:00 Patient maintains SpO2 saturation greater than 95% on room air. tw5 07:00 Patient admitted, IV remains in place. intact, No redness/swelling at site. jl7 Administered Medications: 08/19 21:33 Drug: HYDROcodone-acetaminophen 5 mg-325 mg 1 tabs Route: PO; tw5 22:00 Follow up: Pain 8/10 Adult; Response: No adverse reaction; Pain is decreased; RASS: tw5 Alert and Calm (0) 21:33 Drug: Zofran (Ondansetron) 4 mg Route: PO; tw5 08/20 01:09 Follow up: Response: No adverse reaction tw5 Outcome: 08/19 19:15 Decision to Hospitalize by Provider. jr8 08/20 07:00 Admitted to ER Hold. Please see [facility] for further documentation. jl7 Condition: stable Discharge instructions given to patient, Instructed on the need for admit, Demonstrated understanding of instructions. 15:29 Patient left the ED. jl7 Signatures: Dispatcher [employer] EDMS Mike Mari PA PA jr8 Alec Escudero, RN RN jl7 Gin Cordova Tiffany tw5 Linsey Alaniz, RN RN jh6 Nellie Eubanks 3
--- NOTE | 2021-08-19 19:16 | EDPHYS ---
Physician Documentation [facility] Name: Kathy Whyte Age: 56 yrs Sex: Female : 1965 Arrival Date: 08/19/2021 Time: 16:58 Bed 8 Private MD: ED Physician David Smyth HPI: 08/19 18:12 This 56 yrs old Female presents to ER via EMS with complaints of Chest Pain. jr8 18:12 The patient or guardian reports chest pain that is located primarily in the substernal jr8 area. Onset: acutely, today. The pain radiates to both arms. Associated signs and symptoms: Pertinent positives: nausea. The chest pain is described as a pressure. Duration: The patient or guardian reports a single episode, that is still ongoing. Modifying factors: The symptoms are alleviated by nothing. the symptoms are aggravated by nothing. Severity of pain: At its worst the pain was moderate in the emergency department the pain has improved. The patient has experienced similar episodes in the past, several times. The patient has not recently seen a physician. 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 Stated that she gets chest pain from time to time. Takes nitro as needed. Stated that this bout started to cause her nausea and radiation down arms which is not common for her. Took 2 nitro prior to arrival with relief of pain down from a 10 to a 7. Historical: - Allergies: 17:17 Compazine; [facility] 17:17 Demerol; [facility] 17:17 Morphine; [facility] 17:17 Neurontin; [facility] 17:17 NSAIDS; [facility] 17:17 Stadol; [facility] 17:17 Toradol; [facility] - Home Meds: 17:17 bupropion HCl 200 mg Oral TbER 1 tab 2 times per day [Active]; carvedilol 12.5 mg Oral jh6 tab 1 tab 2 times per day [Active]; Eliquis Oral [Active]; lisinopril 20 mg Oral tab [Active]; methocarbamol 750 mg Oral tab 1 tab every 4 hours [Active]; Risperdal 1 mg Oral tab 1 tab 2 times per day [Active]; sertraline 100 mg Oral tab 1 tab once daily [Active]; topiramate 25 mg Oral CSpX 1 cap once daily [Active]; triazolam 0.25 mg Oral tab 2 tabs once daily [Active]; - PMHx: 17:17 Anxiety; Congestive heart failure; CVA; Deep vein thrombosis; Depression; High jh6 Cholesterol; Hypertension; Myocardial infarction; Seizures; - Immunization history:: Client reports having NOT received the Covid vaccine. - Social history:: Smoking status: Patient denies any tobacco usage or history of. ROS: 18:12 Eyes: Negative for injury, pain, redness, and discharge, ENT: Negative for injury, jr8 pain, and discharge, Neck: Negative for injury, pain, and swelling, Respiratory: Negative for shortness of breath, cough, wheezing, and pleuritic chest pain, Back: Negative for injury and pain, MS/Extremity: Negative for injury and deformity, Skin: Negative for injury, rash, and discoloration, Neuro: Negative for headache, weakness, numbness, tingling, and seizure. 18:12 Cardiovascular: Positive for chest pain, Negative for edema, orthopnea, palpitations, paroxysmal nocturnal dyspnea. 18:12 Abdomen/GI: Positive for nausea, Negative for abdominal pain, vomiting, diarrhea. Exam: 18:12 Constitutional: This is a well developed, well nourished patient who is awake, alert, jr8 and in no acute distress. Neck: Trachea midline, no thyromegaly or masses palpated, and no cervical lymphadenopathy. Supple, full range of motion without nuchal rigidity, or vertebral point tenderness. No Meningismus. Cardiovascular: Regular rate and rhythm with a normal S1 and S2. No gallops, murmurs, or rubs. Normal PMI, no JVD. No pulse deficits. Respiratory: Lungs have equal breath sounds bilaterally, clear to auscultation and percussion. No rales, rhonchi or wheezes noted. No increased work of breathing, no retractions or nasal flaring. Abdomen/GI: Soft, non-tender, with normal bowel sounds. No distension or tympany. No guarding or rebound. No evidence of tenderness throughout. Back: No spinal tenderness. No costovertebral tenderness. Full range of motion. Skin: Warm, dry with normal turgor. Normal color with no rashes, no lesions, and no evidence of cellulitis. MS/ Extremity: Pulses equal, no cyanosis. Neurovascular intact. Full, normal range of motion. Neuro: Awake and alert, GCS 15, oriented to person, place, time, and situation. Cranial nerves II-XII grossly intact. Motor strength 5/5 in all extremities. Sensory grossly intact. Vital Signs: 17:14 BP 126 / 71; Pulse 76; Resp 18; Temp 97.7(O); Pulse Ox 97% on R/A; jh6 18:15 BP 116 / 67; Pulse 72; Resp 18; Pulse Ox 99% ; jh6 21:34 BP 138 / 109; Pulse 78; Resp 14; Pulse Ox 100% on R/A; tw5 22:00 Pain 8/10; tw5 01/ 01:03 BP 116 / 61; Pulse 81; Resp 18; Pulse Ox 96% on R/A; Pain 6/10; tw5 02:53 BP 132 / 68; Pulse 81; Resp 14; Pulse Ox 94% on R/A; tw5 03:58 BP 142 / 92; Pulse 81; Resp 18; Pulse Ox 96% on R/A; tw5 04:27 Weight 77.11 kg; Height 5 ft. 3 in. (160.02 cm); tw5 05:00 BP 140 / 87; Pulse 89; Resp 18; Pulse Ox 100% on R/A; tw5 05:48 BP 146 / 83; Pulse 80; Resp 18; Pulse Ox 99% on R/A; Pain 6/10; tw5 04:27 Body Mass Index 30.11 (77.11 kg, 160.02 cm) tw5 Procedures: 08/19 23:13 Peripheral line: by aseptic technique a peripheral line was placed in the right jr8 external jugular vein, 18 G right side. MDM: 17:05 Patient medically screened. jr8 19:14 The patient was not given aspirin in the Emergency Department. Patient reports taking 8 aspirin within the past 24 hours. Data reviewed: vital signs, nurses notes, lab test result(s), EKG, radiologic studies, plain films. Data interpreted: Pulse oximetry: on room air is 99 %. Interpretation: normal. Counseling: I had a detailed discussion with the patient and/or guardian regarding: the historical points, exam findings, and any diagnostic results supporting the discharge/admit diagnosis, lab results, radiology results, the need for further work-up and treatment in the hospital. 08/19 17:06 Order name: Basic Metabolic Panel; Complete Time: 19:13 jr8 08/19 17:06 Order name: CBC with Diff; Complete Time: 19:13 jr8 08/19 17:06 Order name: LFT's; Complete Time: 19:13 jr8 08/19 17:06 Order name: Magnesium; Complete Time: 19:13 jr8 08/19 17:06 Order name: NT PRO-BNP; Complete Time: 19:13 jr8 08/19 17:06 Order name: PT-INR; Complete Time: 19:13 8 08/19 17:06 Order name: Troponin (emerg Dept Use Only); Complete Time: 19:13 jr8 08/19 18:55 Order name: CBC Smear Scan; Complete Time: 19:13 EDMS 08/19 19:26 Order name: COVID-19 SARS RT PCR (Document "Date of Onset" if Symptomatic); Complete mw2 Time: 21:49 08/19 20:26 Order name: CK; Complete Time: 21:15 jr8 08/20 01:29 Order name: Lactate; Complete Time: 01:44 EDMS 08/20 01:33 Order name: Troponin I; Complete Time: 01:44 EDMS 08/20 01:45 Order name: Protime (+INR); Complete Time: 01:48 EDMS 08/20 01:46 Order name: CBC with Automated Diff; Complete Time: 02:24 EDMS 08/19 17:06 Order name: XRAY Chest (1 view); Complete Time: 18:12 jr8 08/19 21:50 Order name: Abdomen EDMS 08/20 02:05 Order name: Procalcitonin; Complete Time: 02:12 EDMS 08/20 02:06 Order name: Comprehensive Metabolic Panel; Complete Time: 02:12 EDMS 08/20 02:06 Order name: Phosphorus; Complete Time: 02:12 EDMS 08/20 02:06 Order name: Lipid Profile; Complete Time: 02:12 EDMS 08/20 02:06 Order name: T4 Free; Complete Time: 02:12 EDMS 08/20 02:06 Order name: Magnesium; Complete Time: 02:12 EDMS 08/20 02:06 Order name: Thyroid Stimulating Hormone; Complete Time: 02:12 EDMS 08/20 02:23 Order name: CBC Smear Scan; Complete Time: 02:24 EDMS 08/20 06:44 Order name: Blood Culture EDMS 08/20 10:29 Order name: Troponin I; Complete Time: 15:11 EDMS 08/20 13:03 Order name: CBC with Automated Diff; Complete Time: 15:11 EDMS 08/20 13:04 Order name: Protime (+INR); Complete Time: 15:11 EDMS 08/19 17:06 Order name: EKG; Complete Time: 17:07 jr8 08/19 17:06 Order name: Cardiac monitoring; Complete Time: 17:13 jr8 08/19 17:06 Order name: EKG - Nurse/Tech; Complete Time: 21:33 jr8 08/19 17:06 Order name: IV Saline Lock; Complete Time: 01:09 jr8 08/19 17:06 Order name: Labs collected and sent; Complete Time: :33 jr8 08/19 17:06 Order name: O2 Per Protocol; Complete Time: :33 jr8 08/19 17:06 Order name: O2 Sat Monitoring; Complete Time: :33 jr8 08/19 23:07 Order name: CONS Physician Consult; Complete Time: 01:09 EDMS Administered Medications: 21:33 Drug: HYDROcodone-acetaminophen 5 mg-325 mg 1 tabs Route: PO; tw5 22:00 Follow up: Pain 8/10 Adult; Response: No adverse reaction; Pain is decreased; RASS: tw5 Alert and Calm (0) 21:33 Drug: Zofran (Ondansetron) 4 mg Route: PO; tw5 08/20 01:09 Follow up: Response: No adverse reaction tw5 Disposition: 08/19 18:59 Co-signature as Attending Physician, David Smyth MD I agree with the assessment and kdr plan of care. Disposition Summary: 08/19/21 19:15 Hospitalization Ordered Hospitalization Status: Inpatient Admission jr8 Provider: Cara Olivo Condition: Stable jr8 Problem: new jr8 Symptoms: are unchanged jr8 Bed/Room Type: Standard [facility] Location: Telemetry/MedSurg (Inpatient)(08/20/21 14:01) bd Room Assignment: 215(08/20/21 14:01) bd Diagnosis - Subsequent non-ST elevation (NSTEMI) myocardial infarction jr8 Forms: - Medication Reconciliation Form jr8 - SBAR form jr8 Signatures: Dispatcher [employer] EDAlvina Donald Martha, RN RN David Smyth MD MD [facility] Mike Mari PA PA 8 Jovanna Fonseca tw5 Linsey Alaniz RN RN jh6 Corrections: (The following items were deleted from the chart) 21:50 20:29 Abdomen Pelvis W Con+CT.RAD.BRZ ordered. EDMS EDMS 22:12 19:15 Telemetry/MedSurg (Inpatient) [facility] 22:12 19:15 [facility] 08/20 14:01 08/19 22:[address] [facility] ER HOLD [facility] 08/20 14:01 08/19 22:12 ERHOLD- [facility]
[2021-08-19] MEDS ORDERED: HYDROCODONE/APAP 5/325 MG TAB ONE (21:25)
[2021-08-19] MEDS ORDERED: ONDANSETRON 4 MG (ODT) TAB ONE (21:26)
--- NOTE | 2021-08-19 23:52 | P.HP ---
Certification for Inpatient Patient admitted to: Inpatient With expected LOS: <2 Midnights Patient will require the following post-hospital care: None Practitioner: I am a practitioner with admitting privileges, knowledge of patient current condition, hospital course, and medical plan of care. Services: Services provided to patient in accordance with Admission requirements found in Title 42 Section 412.3 of the Code of Federal Regulations Patient History Date of Service: 08/18/21 Reason for admission: NSTEMI History of Present Illness: Ms. Whyte is a 56 yo F with CAD, history of CVA, HTN, HLD who presents with 10/10 sternal chest pain radiating down her left arm beginning today while at rest. She said the pain was not relieved after she took nitroglycerin twice, so she called EMS. She says pain has improved since earlier. Reports palpitations. She has had an NSTEMI in the past and had a CABG and stent placed in 2019. Her most recent NSTEMI was medically managed due to low platelet count. Today her INR is 8.01, PT 94.1 and platelets 82. Her coumadin dose was recently increased for subtherapeutic INR. She last had her INR checked last Friday. She last saw her bike assembler 3 weeks ago. She is scheduled to see a fisher purse seine but has not yet. WBC 19.6 Na 130 Cl 95 GFR 65 Glu 154 AST 237 ALT 408 alk phos 577 troponin 0.1 BNP 964 CTAP without acute findings Allergies butorphanol tartrate [From Stadol] Allergy (Intermediate, Verified 03/02/21 23:06) angry gabapentin [From Neurontin] Allergy (Intermediate, Verified 03/02/21 23:06) Blurred vision prochlorperazine [Prochlorperazine] Allergy (Mild, Verified 03/02/21 23:06) Rash prochlorperazine edisylate [From Compazine] Allergy (Verified 03/02/21 23:06) Unknown ketorolac tromethamine [From Toradol] Adverse Reaction (Intermediate, Verified 03/02/21 23:06) anxiety prochlorperazine maleate [From Compazine] Adverse Reaction (Intermediate, Verified 03/02/21 23:06) Hives NSAIDS (Non-Steroidal Anti-Inflamma Adverse Reaction (Mild, Verified 03/02/21 23:06) Nausea/Vomiting Home Medications: Albuterol Sulfate [Proair Hfa] 2 puff IH DAILYPRN PRN 01/20/20 Budesonide/Formoterol Fumarate [Symbicort 160-4.5 Mcg Inhaler] 2 puff IH BIDP PRN 01/20/20 Codeine/APAP [Tylenol #3*] 1 tab PO TIDP PRN 01/20/20 Furosemide [Lasix*] 1 tab PO DAILYPRN PRN 01/20/20 LORazepam [Lorazepam] 1 tab PO BID 01/20/20 Potassium Chloride [K-Dur] 1 tab PO DAILY 01/20/20 Sertraline [Zoloft*] 100 tab PO BID 01/20/20 Topiramate [Topamax*] 50 mg PO BID 01/20/20 buPROPion HCL [Wellbutrin*] 200 mg PO BID 01/20/20 Atorvastatin Calcium [Lipitor] 1 tab PO BEDTIME #30 tab 01/25/20 Aspirin [Aspirin EC] 1 tab PO DAILY 12/11/20 Lisinopril [Zestril] 1 tab PO DAILY 12/11/20 Metoprolol Tartrate 1 tab PO BID 12/11/20 Eszopiclone [Lunesta] 3 mg PO BEDTIME 03/02/21 Ferrous Sulfate [Iron] 1 tab PO DAILY 03/02/21 Magnesium Chloride [Magnesium] 1 tab PO DAILY 03/02/21 Promethazine HCl 25 mg PO BID 03/02/21 Isosorbide Mononitrate [Isosorbide Mononitrate ER] 30 mg PO DAILY #30 tab.er.24h 04/06/21 - Past Medical/Surgical History Diabetic: No -: HTN-resolved -: Hyperlipidemia -: History of CVA/TIA 2011 -: Antiphospholipid syndrome -: BLood clot (left forearm 09/2019) -: Depression -: Former Tobacco abuse -: Chronic pain -: Migraines, complex/complicated/mixed, acute headache -: GERD -: h/o of ID 09/2019 and 12/2019 s/p CABG at [facility] and stent -: INSOMNIA -: Choleycystectomy -: Appendectomy -: Hysterectomy/left ovary removed -: (R) ankle/foot sx -: bilateral feet surgery-with plates and screws -: tonsillectomy -: November 2013 destinee cath placement, removed -: CABG (06/2019) Psychosocial/ Personal History: . Lives at home. - Family History Mother -: Hypertension, Diabetes Father -: Hypertension, Stroke Notes: - Social History Smoking Status: Unknown if ever smoked Alcohol use: Yes CD- Drugs: Yes Caffeine use: No Review of Systems General: Unremarkable Eyes: Unremarkable ENT: Unremarkable Respiratory: Unremarkable Cardiovascular: Chest Pain, Palpitations Gastrointestinal: Unremarkable Genitourinary: Unremarkable Musculoskeletal: Unremarkable Integumentary: Unremarkable Neurological: Unremarkable Lymphatics: Unremarkable Physical Examination - Physical Exam General: Alert, In no apparent distress HEENT: Atraumatic, PERRLA, Mucous membr. moist/pink, EOMI, Sclerae nonicteric Neck: Supple, 2+ carotid pulse no bruit, No LAD, Without JVD or thyroid abnormality Respiratory: Clear to auscultation bilaterally, Normal air movement Cardiovascular: Regular rate/rhythm, Normal S1 S2 Gastrointestinal: Normal bowel sounds, No tenderness Musculoskeletal: No tenderness Integumentary: No rashes Neurological: Normal strength at 5/5 x4 extr, Normal tone, Normal affect, Abnorm al speech Lymphatics: No axilla or inguinal lymphadenopathy - Studies Laboratory Data (last 24 hrs) 08/19/21 17:39: PT 94.1 H, INR 8.01 H* 08/19/21 17:39: WBC 19.60 H, Hgb 14.5, Hct 44.3, Plt Count 82 L 08/19/21 17:39: Sodium 130 L, Potassium 4.7, BUN 16, Creatinine 0.89, Glucose 154 H, Magnesium 2.3 D, Total Bilirubin 0.7, AST 237 H, ALT 408 H*, Alkaline Phosphatase 577 H Assessment and Plan - Problems (Diagnosis) (1) Chest pain Current Visit: No Status: Acute Qualifiers: (2) Disturbance in speech Current Visit: No Status: Chronic (3) Hypertensive disorder, systemic arterial Onset Date: 03/13/15 Current Visit: No Status: Chronic (4) Leukocytosis Current Visit: No Status: Acute Qualifiers: Leukocytosis type: unspecified Qualified Code(s): D72.829 - Elevated white blood cell count, unspecified (5) Chronic anticoagulation Current Visit: No Status: Suspected (6) Coronary artery disease Current Visit: No Status: Chronic Qualifiers: Coronary Disease-Associated Artery/Lesion type: bypass graft Ione vs. transplanted heart: marshall heart Associated angina: with unstable angina Qualified Code(s): I25.700 - Atherosclerosis of coronary artery bypass graft(s), unspecified, with unstable angina pectoris - Plan cardiology consulted trend troponins repeat EKG reconcile and continue home medications hold coumadin and aspirin lipid and thyroid panel penidng PRN morphine and nitroglycerin for chest pain procalcitonin, blood cultures, lactate, UA pending DVT ppx Discharge Plan: Home Plan to discharge in: 48 Hours - Advance Directives Does patient have a Living Will: No Does patient have a Durable POA for Healthcare: No - Code Status/Comfort Care Code Status Assessed: Yes (full code ) Critical Care: No Time Spent Managing Pts Care (In Minutes): 70
[2021-08-20] MEDS ORDERED: NITROGLYCERIN 0.4 MG/TAB SL PRN (00:39)
[2021-08-20] MEDS ORDERED: HYDRALAZINE HCL 20 MG/ML VIAL IV PRN (00:39)
[2021-08-20] MEDS ORDERED: ACETAMINOPHEN 500 MG TAB PO PRN (00:39)
[2021-08-20] MEDS ORDERED: MORPHINE 2 MG/ML SYR ONE ×2 (00:46→04:50)
[2021-08-20] MEDS: MORPHINE 2 MG/ML SYR IV PRN ×4 (00:48→20:36)
[2021-08-20 01:44] LABS: Absolute Lymphocytes (CBC) 2.9 K/uL (0.7-4.9); Hematocrit 38.3 % (36.0-45.0); Lymphocytes % 16.6 % (15.3-44.8); MPV 7.1 fL (7.6-11.3); RBC Red Blood Cell Count 4.53 M/uL (3.86-4.86)
[2021-08-20 01:45] LABS: Protime INR 13.57
[2021-08-20] MEDS ORDERED: VITAMIN K (ADULT) 10 MG/ML SQ ONE (01:54)
[2021-08-20 01:55] LABS: AST/SGOT 132 U/L (15-37); Albumin 2.7 g/dL (3.4-5.0); Alkaline Phosphatase 488 U/L (45-117); BUN Blood Urea Nitrogen 12 mg/dL (7-18); Bicarbonate 32 mmol/L (21-32); Bilirubin Total 0.4 mg/dL (0.2-1.0); Glucose Level 111 mg/dL (74-106); HDL Cholesterol 35 mg/dL (40-60); LDL Cholesterol, Calculated 31 (<130); Magnesium 2.1 mg/dL (1.8-2.4); Phosphorus 1.4 mg/dL (2.5-4.9); Protein, Total 6.8 g/dL (6.4-8.2); Sodium Level 136 mmol/L (136-145)
[2021-08-20 02:06] LABS: ALT/SGPT 326 U/L (12-78)
[2021-08-20 02:23] LABS: Blood Morphology Comment NOT SEEN (NOT SEEN); Platelet Estimate DECR; White Blood Cell Scan OK (OK)
[2021-08-20] MEDS ORDERED: NA CHLORIDE 0.9% 50 ML ONE (02:38)
[2021-08-20] MEDS ORDERED: VITAMIN K (ADULT) 10 MG/ML ONE (02:38)
[2021-08-20] MEDS ORDERED: PHYTONADIONE IVPB ONE (03:00)
[2021-08-20] MEDS ORDERED: NA CHLORIDE 0.9% IVPB ONE (03:00)
[2021-08-20] MEDS ORDERED: METOPROLOL TAR 25 MG TAB ONE (04:50)
[2021-08-20] MEDS ORDERED: ONDANSETRON 4 MG/2 ML VIAL ONE (04:50)
[2021-08-20] MEDS: METOPROLOL TAR 25 MG TAB PO SCH ×2 (05:03→17:43)
[2021-08-20] MEDS: ONDANSETRON 4 MG/2 ML VIAL IV PRN ×3 (05:04→20:35)
[2021-08-20] MEDS ORDERED: POTASS/SODIUM PHOSPHATE 1 PKT POWD.PACK ONE ×2 (08:14→09:12)
[2021-08-20] MEDS ORDERED: lisinopriL 10 MG TAB ONE (08:14)
[2021-08-20] MEDS ORDERED: FUROSEMIDE 40 MG TABLET ONE (08:14)
[2021-08-20] MEDS ORDERED: lisinopriL 10 MG TAB PO SCH (09:00)
[2021-08-20] MEDS ORDERED: HOME MED 1 EA UNK (Metoprolol Tartrate [Metoprolol Tartrate] 75 MG Tablet) PO SCH (09:00)
[2021-08-20] MEDS ORDERED: POTASS/SODIUM PHOSPHATE 1 PKT POWD.PACK PO ONE ×4 (09:00→11:00)
[2021-08-20] MEDS ORDERED: FUROSEMIDE 20 MG TABLET PO SCH (09:00)
[2021-08-20] MEDS: ISOSORBIDE MONO SR 30 MG TAB PO SCH (09:00)
[2021-08-20] MEDS ORDERED: LORAZEPAM 1 MG TABLET ONE (11:05)
[2021-08-20] MEDS ORDERED: LORAZEPAM 1 MG TABLET PO PRN ×2 (11:08→12:18)
--- NOTE | 2021-08-20 12:14 | P.PN ---
Subjective Date of Service: 08/20/21 Primary Care Provider: Dr. Goldberg; Cardiology-Dr. Escobar Chief Complaint: NSTEMI Subjective: Improving Physical Examination - Vital Signs Temperature: 98.1 F Blood Pressure: 136/101 Pulse: 90 Respirations: 17 Pulse Ox (%): 99 - Studies Laboratory Data (last 24 hrs) 08/19/21 17:39: PT 94.1 H, INR 8.01 H* 08/19/21 17:39: WBC 19.60 H, Hgb 14.5, Hct 44.3, Plt Count 82 L 08/19/21 17:39: Sodium 130 L, Potassium 4.7, BUN 16, Creatinine 0.89, Glucose 154 H, Magnesium 2.3 D, Total Bilirubin 0.7, AST 237 H, ALT 408 H*, Alkaline Phosphatase 577 H Assessment & Plan Discharge Plan: Home Plan to discharge in: 48 Hours Physician Review Additional Text: COVID: CXR: COMPARISON: Chest Single View dated 04/05/2021; Chest Single View dated 03/02/2021; Chest Single View dated 12/11/2020; Chest Single View dated 10/23/2020 FINDINGS: Lines: None. Lungs: Mild basilar airspace opacities, left greater than right. Pleural: No significant pleural effusions or pneumothorax. Cardiac: Cardiomegaly. Bones: No acute fractures. Sternotomy. IMPRESSION: Basilar opacities, left greater than right favored represent atelectasis. CT AB/Pelvis: No evidence of acute process within the abdomen or pelvis Possible tiny nonobstructing left renal stone Right adnexal 3.6 cm cyst appears slightly increased in size. Streaky opacities in the both lung mcdaniel likely atelectasis or scarring Stable 5 mm nodule in the right lower lobe Several nonspecific small areas of subcutaneous stranding which could reflect soft tissue contusion or areas of prior injections Physical Exam: GENERAL: The patient is a well-developed, well-nourished, in no apparent distress. Alert and oriented x3. VITAL SIGNS: Reviewed HEENT: Head is normocephalic and atraumatic. Extraocular muscles are intact. Pupils are equal, round, and reactive to light and accommodation. Nares appeared normal. Mouth is well hydrated and without lesions. Mucous membranes are moist. NECK: Supple. No carotid bruits. No lymphadenopathy or thyromegaly. LUNGS: Clear to auscultation. No crackles or wheezes are heard. HEART: Regular rate and rhythm, no appreciable gallops, rubs, murmurs or extra heart sounds ABDOMEN: Soft, nontender, and nondistended. Positive bowel sounds. No hepatosplenomegaly was noted. EXTREMITIES: Without any cyanosis, clubbing, rash, lesions or peripheral edema. NEUROLOGIC: The patient is oriented to person, place and time. Strength and sensation are grossly intact. Face is symmetric. SKIN: Some bruising to the forearms noted. Scars to the left upper neck region and left arm. Impression: Chest pain likely ischemic demand with history of CAD Peripheral vascular disease with history of DVT on chronic anticoagulation therapyCoumadin Elevated INR suspect Coumadin toxicity Hypertension Elevated liver function likely related to above Chronic thrombocytopenia Depression with anxiety Hyperlipidemia COPD Plan: Chest pain likely ischemic demand with history of CAD: Spoke with cardiology. No intervention needed at this time. Continue to hold Coumadin. Cardiology suspects possible Coumadin toxicity. Cardiology recommends hematology evalua tion to further evaluate. Cardiology recommends the possibility of discontinuing Coumadin and switching back to Eliquis at discharge but await recommendations from hematology. Continue with isosorbide mononitrate 30 mg daily. Continue Lasix 20 mg daily. Peripheral vascular disease with history of DVT on chronic anticoagulation therapyCoumadin: Continue as above. Will discuss further with hematology. Elevated INR suspect Coumadin toxicity: Patient given vitamin K. Coumadin has been discontinued. Continue to monitor closely. Hypertension: Continue lisinopril 10 mg daily and metoprolol 25 mg 1 pill twice daily. Will monitor and adjust appropriately. Elevated liver function likely related to above: We will continue to monitor. Suspect related to above Chronic thrombocytopenia: We will discuss with hematology about plan of care as above. Depression with anxiety: Continue Ativan 1 mg 1 pill twice daily as needed for anxiety. Continue Wellbutrin 200 mg 1 pill twice daily, Zoloft 100 mg once daily. Hyperlipidemia: Hold statin medication due to elevated liver function. Chronic headaches: Continue Topamax 50 mg 1 pill twice daily COPD: Continue with COPD medication Code Status: Full Code DVT prophylaxis: Lovenox Advanced Care Planning-30 minutes: Home at discharge Time Spent Managing Pts Care (In Minutes): 55
[2021-08-20] MEDS ORDERED: IPRATROPIUM BROM 0.5MG/2.5ML NEB PRN (12:22)
[2021-08-20] MEDS ORDERED: ALBUTEROL 2.5 MG/3 ML NEB SOL NEB PRN (12:22)
[2021-08-20] MEDS ORDERED: ESZOPICLONE 1 MG TAB PO PRN (12:26)
[2021-08-20 12:52] LABS: RBC Red Blood Cell Count 4.31 M/uL (3.86-4.86)
[2021-08-20 12:53] LABS: Absolute Lymphocytes (CBC) 3.1 K/uL (0.7-4.9); Hematocrit 36.5 % (36.0-45.0); Lymphocytes % 16.3 % (15.3-44.8); MPV 7.4 fL (7.6-11.3)
[2021-08-20 13:04] LABS: Protime INR 1.35
--- NOTE | 2021-08-20 17:12 | RAD REPORT ---
EXAM DESCRIPTION: CT - Abdomen Pelvis Wo Contrast - 08/20/2021 6:17 am COMPARISON: CT abdomen pelvis July 10, 2020 CLINICAL HISTORY: Abdominal pain TECHNIQUE: Multiple helical axial images were obtained through the abdomen and pelvis without intrav enous contrast. Sagittal and coronal reformatted images are reviewed as well. All CT scans at this facility use dose modulation, iterative reconstruction, and/or weight-based dosi ng when appropriate to reduce radiation dose to as low as reasonably achievable. FINDINGS: Lung bases: A 5 mm nodule in the right lower lobe appears unchanged (series 201, image 8). There are streaky opacities in both lung bases. Liver: Homogenous attenuation is demonstrated. Gallbladder/biliary: Gallbladder is surgically absent. Common bile duct dilatation is again noted paulo suring up to 1.2 cm in width appearing unchanged, nonspecific in the setting of prior cholecystectomy . Pancreas: Unremarkable. Spleen: Unremarkable. Adrenals: Unremarkable. Kidneys and ureters: There is a possible 1 mm stone in the upper pole of the left kidney (series 202, image 70). No obstructing ureteral stone. No hydronephrosis. Bladder: Unremarkable. Pelvic organs: Post hysterectomy changes are present. A 3.6 cm hypodense cyst in the right adnexa duane ears slightly increased in size (series 201, image 72). Bowel: No evidence of bowel obstruction. No bowel wall thickening. Appendix is not visualized. Peritoneum: No free air. There is a small amount of free fluid in the pelvis. Lymph nodes: Unremarkable. Vasculature: Aortoiliac atherosclerosis is present. Soft tissues: Several nonspecific small areas of subcutaneous stranding is demonstrated. Bones: No acute findings. Sternotomy changes are present. IMPRESSION: 1. No evidence for an acute process within the abdomen or pelvis. 2. Possible tiny nonobstructing left renal stone. 3. Right adnexal 3.6 cm cyst appears slightly increased in size. Nonemergent follow-up ultrasound r ecommended. 4. Streaky opacities in both lung bases which may be related to atelectasis or scarring. 5. Stable 5 mm nodule in the right lower lobe. For a high-risk patient, consider follow-up to one y ear stability using Fleischner Society criteria. 6. Several nonspecific small areas of subcutaneous stranding which could reflect soft tissue contus ions or areas of prior injections. Electronically signed by: Damian Latham MD 08/19/2021 10:31 PM MANAGER [employer]ATER Due to temporary technical issues with the PACS/Fluency reporting system, reports are being signed by the in house radiologists without review as a courtesy to insure prompt reporting. The interpreting radiologist is fully responsible for the content of the report.
[2021-08-20] MEDS: TOPIRAMATE 25 MG TAB PO SCH (20:03)
[2021-08-20] MEDS: buPROPion HCL 100 MG TAB PO SCH (20:03)
[2021-08-20] MEDS: DULERA 100/5 (MOMETASONE/FORMOTEROL) INHALER IH SCH (20:03)
[2021-08-20] MEDS ORDERED: ATORVASTATIN 80 MG TAB PO SCH (21:00)
[2021-08-20] MEDS ORDERED: SERTRALINE HCL 100 MG TAB PO SCH (21:00)
[2021-08-20 21:18] LABS: Urine Appearance CLEAR (Clear); Urine Bilirubin NEGATIVE (Negative); Urine Blood 2+ (Negative); Urine Color YELLOW (Yellow); Urine Glucose NEGATIVE (Negative); Urine Microscopic Reflex ORDER UMIC; Urine Protein NEGATIVE (Negative); Urine Urobilinogen 0.2 mg/dL (0.2-1.0); Urine pH 7.5 (5.0-7.0)
[2021-08-20 21:32] LABS: Urine Bacteria <20 /HPF (<20); Urine Mucus 1+ /HPF (NONE SEEN)
[2021-08-21 00:59] VITALS: BMI 30.1
[2021-08-21] MEDS: METOPROLOL TAR 25 MG TAB PO SCH (06:00)
--- NOTE | 2021-08-21 06:05 | P.PN ---
Subjective Date of Service: 08/21/21 Primary Care Provider: Dr. Goldberg; Cardiology-Dr. Escobar Chief Complaint: NSTEMI Subjective: Improving, Doing well Physical Examination - Vital Signs Temperature: 97 F Blood Pressure: 90/51 Pulse: 81 Respirations: 16 Pulse Ox (%): 97 Assessment & Plan Discharge Plan: Home Plan to discharge in: 24 Hours Physician Review Additional Text: COVID: negative CXR: COMPARISON: Chest Single View dated 04/05/2021; Chest Single View dated 03/02/2021; Chest Single View dated 12/11/2020; Chest Single View dated 10/23/2020 FINDINGS: Lines: None. Lungs: Mild basilar airspace opacities, left greater than right. Pleural: No significant pleural effusions or pneumothorax. Cardiac: Cardiomegaly. Bones: No acute fractures. Sternotomy. IMPRESSION: Basilar opacities, left greater than right favored represent atelectasis. CT AB/Pelvis: No evidence of acute process within the abdomen or pelvis Possible tiny nonobstructing left renal stone Right adnexal 3.6 cm cyst appears slightly increased in size. Streaky opacities in the both lung mcdaniel likely atelectasis or scarring Stable 5 mm nodule in the right lower lobe Several nonspecific small areas of subcutaneous stranding which could reflect soft tissue contusion or areas of prior injections Physical Exam: GENERAL: The patient is a well-developed, well-nourished, in no apparent distress. Alert and oriented x3. VITAL SIGNS: Reviewed HEENT: Head is normocephalic and atraumatic. Extraocular muscles are intact. Pupils are equal, round, and reactive to light and accommodation. Nares appeared normal. Mouth is well hydrated and without lesions. Mucous membranes are moist. NECK: Supple. No carotid bruits. No lymphadenopathy or thyromegaly. LUNGS: Clear to auscultation. No crackles or wheezes are heard. HEART: Regular rate and rhythm, no appreciable gallops, rubs, murmurs or extra heart sounds ABDOMEN: Soft, nontender, and nondistended. Positive bowel sounds. No hepatosplenomegaly was noted. EXTREMITIES: Without any cyanosis, clubbing, rash, lesions or peripheral edema. NEUROLOGIC: The patient is oriented to person, place and time. Strength and sensation are grossly intact. Face is symmetric. SKIN: Some bruising to the forearms noted. Scars to the left upper neck region and left arm. Impression: Chest pain likely ischemic demand with history of CAD Peripheral vascular disease with history of DVT on chronic anticoagulation therapyCoumadin Elevated INR suspect Coumadin toxicity Hypertension Elevated liver function likely related to above Chronic thrombocytopenia Depression with anxiety Hyperlipidemia COPD Plan: Chest pain likely ischemic demand with history of CAD: Spoke with cardiology. No intervention needed at this time. Coumadin has been discontinued. Cardiology recommends to discontinue Coumadin entirely and switch her back to Eliquis. Spoke with hematology in the past who agrees with plan of care. Patient has had hypercoagulable work-up in the past that was unremarkable. We will update current cardiologistDr. Escobar on plan of care. Restart Eliquis 5 mg 1 pill twice daily. Continue with home medication isosorbide mononitrate 30 mg daily and Lasix 20 mg daily. Patient requests wheelchair. While physical therapy evaluate and provide. Social work to help arrange for home oxygen if patient qualifies. Anticipate discharge today. Peripheral vascular disease with history of DVT on chronic anticoagulation therapyCoumadin: Continue with above plan of care. Patient has had hypercoagulable work-up in the past which was unremarkable. Patient previously on Eliquis. Cardiology recommends to discontinue Coumadin due to difficulty in controlling INR and possible compliance issues. We will have her go back on Eliquis 5 mg 1 pill twice daily. Patient will follow up with hematology closely as an outpatient to further address and monitor. Elevated INR suspect Coumadin toxicity: Patient was been given vitamin K. INR now 1.09. Restart Eliquis 5 mg 1 pill twice daily. Coumadin has been discontinued. Hypertension: Continue lisinopril 10 mg daily and metoprolol 25 mg 1 pill twice daily. Will monitor and adjust appropriately. Elevated liver function likely related to above: Overall improved. Chronic thrombocytopenia: Overall stable. Patient will follow up with hematology as an outpatient. Depression with anxiety: Continue Ativan 1 mg 1 pill twice daily as needed for anxiety. Continue Wellbutrin 200 mg 1 pill twice daily, Zoloft 100 mg once noe ly. Hyperlipidemia: Hold statin medication due to elevated liver function. Chronic headaches: Continue Topamax 50 mg 1 pill twice daily COPD: Continue with COPD medication Code Status: Full Code DVT prophylaxis: Lovenox Advanced Care Planning-30 minutes: Home at discharge Time Spent Managing Pts Care (In Minutes): 55
[2021-08-21] MEDS ORDERED: lisinopriL 10 MG TAB PO SCH (06:23)
[2021-08-21] MEDS ORDERED: METOPROLOL TAR 25 MG TAB PO SCH (06:23)
[2021-08-21] MEDS ORDERED: FUROSEMIDE 20 MG TABLET PO SCH (06:24)
[2021-08-21 07:30] LABS: Absolute Lymphocytes (CBC) 2.8 K/uL (0.7-4.9); Hematocrit 32.8 % (36.0-45.0); Lymphocytes % 16.7 % (15.3-44.8); MPV 8.8 fL (7.6-11.3); RBC Red Blood Cell Count 3.83 M/uL (3.86-4.86)
[2021-08-21 07:36] LABS: Protime INR 1.09
[2021-08-21 07:47] LABS: ALT/SGPT 168 U/L (12-78); AST/SGOT 40 U/L (15-37); Albumin 2.7 g/dL (3.4-5.0); Alkaline Phosphatase 320 U/L (45-117); BUN Blood Urea Nitrogen 11 mg/dL (7-18); Bicarbonate 31 mmol/L (21-32); Bilirubin Total 0.4 mg/dL (0.2-1.0); Glucose Level 100 mg/dL (74-106); Magnesium 2.1 mg/dL (1.8-2.4); Potassium 3.5 mmol/L (3.5-5.1); Protein, Total 6.5 g/dL (6.4-8.2); Sodium Level 140 mmol/L (136-145)
[2021-08-21 08:35] VITALS: O2SAT 98
[2021-08-21] MEDS: MORPHINE 2 MG/ML SYR IV PRN (08:36)
[2021-08-21] MEDS: buPROPion HCL 100 MG TAB PO SCH (08:40)
[2021-08-21] MEDS: ISOSORBIDE MONO SR 30 MG TAB PO SCH (08:41)
[2021-08-21] MEDS: TOPIRAMATE 25 MG TAB PO SCH (08:41)
[2021-08-21] MEDS: DULERA 100/5 (MOMETASONE/FORMOTEROL) INHALER IH SCH (08:42)
[2021-08-21] MEDS ORDERED: SERTRALINE HCL 100 MG TAB PO SCH (09:00)
[2021-08-21] MEDS ORDERED: POTASSIUM CL SA 10 MEQ TAB PO ONE (09:00)
[2021-08-21] MEDS ORDERED: APIXABAN 5 MG TABLET PO SCH (09:00)
[2021-08-21 09:11] VITALS: BP 90/51; TEMP 97
--- NOTE | 2021-08-21 09:12 | P.DS ---
Admission Date: 08/19/21 Discharge Date: 08/21/21 Primary Care Provider: Dr. Goldberg; Cardiology-Dr. Escobar Disposition: ROUTINE DISCHARGE Discharge Condition: GOOD Reason for Admission: NSTEMI Consultations: Cardiology-Dr. Soto Hematology-Dr. Apple Procedures: COVID: negative CXR: COMPARISON: Chest Single View dated 04/05/2021; Chest Single View dated 03/02/2021; Chest Single View dated 12/11/2020; Chest Single View dated 10/23/2020 FINDINGS: Lines: None. Lungs: Mild basilar airspace opacities, left greater than right. Pleural: No significant pleural effusions or pneumothorax. Cardiac: Cardiomegaly. Bones: No acute fractures. Sternotomy. IMPRESSION: Basilar opacities, left greater than right favored represent ate lectasis. CT AB/Pelvis: No evidence of acute process within the abdomen or pelvis Possible tiny nonobstructing left renal stone Right adnexal 3.6 cm cyst appears slightly increased in size. Streaky opacities in the both lung mcdaniel likely atelectasis or scarring Stable 5 mm nodule in the right lower lobe Several nonspecific small areas of subcutaneous stranding which could reflect soft tissue contusion or areas of prior injections Physical Exam: GENERAL: The patient is a well-developed, well-nourished, in no apparent distress. Alert and oriented x3. VITAL SIGNS: Reviewed HEENT: Head is normocephalic and atraumatic. Extraocular muscles are intact. Pupils are equal, round, and reactive to light and accommodation. Nares appeared normal. Mouth is well hydrated and without lesions. Mucous membranes are moist. NECK: Supple. No carotid bruits. No lymphadenopathy or thyromegaly. LUNGS: Clear to auscultation. No crackles or wheezes are heard. HEART: Regular rate and rhythm, no appreciable gallops, rubs, murmurs or extra heart sounds ABDOMEN: Soft, nontender, and nondistended. Positive bowel sounds. No hepatosplenomegaly was noted. EXTREMITIES: Without any cyanosis, clubbing, rash, lesions or peripheral edema. NEUROLOGIC: The patient is oriented to person, place and time. Strength and sensation are grossly intact. Face is symmetric. SKIN: Some bruising to the forearms noted. Scars to the left upper neck region and left arm. Medical problem list: Chest pain likely ischemic demand with history of CAD Peripheral vascular disease with history of DVT on chronic anticoagulation therapyCoumadin Elevated INR secondary to Coumadin toxicity Hypertension Elevated liver function likely related to above Chronic thrombocytopenia Depression with anxiety Hyperlipidemia COPD Anemia of chronic disease with iron deficiency History of CVA Brief History of Present Illness: 56-year-old female with history of CAD, prior CVA, hypertension, hyperlipidemia on chronic anticoagulation therapy. Patient presented with chest pain. Patient was seen in the ER. Elevated troponin noted. She has had an NSTEMI in the past and had a CABG and stent placed in 2019. Her most recent NSTEMI was medically managed due to low platelet count. INR upon admission was elevated at 8.0. Her Coumadin was recently increased due to subtherapeutic INR. Coumadin held. Patient previously on Eliquis in the past. Patient also has seen hematology in the past. Patient admitted for further evaluation. Hospital Course: Patient presented with chest pain. Patient found to have elevated troponin likely ischemic demand especially with her history of CAD. Cardiology vignesh mmended no intervention at this time. Patient with prior CABG and stents in the past. Patient with significant peripheral vascular disease and history of DVT on chronic anticoagulation therapy as well. Patient had been on Eliquis but this was switched to Coumadin. She reports having a DVT to the upper left extremity while having Covid. Most recently her Coumadin has been adjusted. Patient was found to be supratherapeutic. INR was elevated. Patient required vitamin K. Case discussed at length with cardiology and hematology. Hematology reports patient has had hypercoagulable work-up in the past. Cardiology recommends to discontinue Coumadin due to her difficulty in getting her INR therapeutic. Cardiology recommends to restart Eliquis and discontinue Coumadin especially in light of her chronic thrombocytopenia and difficulty in controlling INR. At discharge the patient will continue with Eliquis 5 mg 1 pill twice daily. Recommend follow-up with her it project manager at [facility]. I will discussed the case in detail with her it project manager so that he is aware of the current change in medication. Case discussed at length with patient. Patient agrees with plan of care. She prefers to be on Eliquis than Coumadin. Recommend follow-up with hematology in 1 week to follow-up his hospitalization and to further monitor her care. Patient with peripheral vascular disease, CAD. At discharge she will continue with her current medications including Imdur ER 30 mg daily, magnesium 64 mg daily, aspirin 81 mg daily, and Lasix 40 mg daily as needed for edema. When taking Lasix she will continue with her potassium supplementation. Recommend follow-up with cardiology to further monitor her care. Patient with hypertension. Blood pressure stable. At discharge she will continue with her current medications of lisinopril 10 mg daily and metoprolol 75 mg 1 pill twice daily. Recommend to monitor blood pressure daily. Recommend to maintain blood pressure less than 130/80. Further adjustment can be done by her PCP. Patient had elevated liver function. This was likely related to her ischemic demand and elevated INR. For function tests improved. This can be monitored as an outpatient. Recommend to recheck CMP in 1 to 2 weeks to monitor resolution. Patient with hyperlipidemia. At discharge patient may continue with her medication Lipitor 80 mg daily. As mentioned above liver function test was elevated. Recommend to recheck and monitor her CMP in 1 to 2 weeks. If still elevated consider decreasing dose of Lipitor. Patient with chronic thrombocytopenia. Overall stable. Case discussed at length with hematology. Continue with above recommendations on discontinuing Coumadin and switching over to Eliquis. Recommend to recheck CBC in 1 to 2 weeks to monitor her progress. Recommend follow-up with hematology in 1 week to further monitor her care. Patient with chronic headaches. At discharge she will continue with Topamax 50 mg 1 pill twice daily. Patient with depression with anxiety. At discharge we will continue with her medications including Wellbutrin 200 mg 1 pill twice daily, Zoloft 100 mg daily, lorazepam 2 mg 1 pill twice daily as needed for anxiety and Lunesta 3 mg at bedtime. Patient with chronic pain. At discharge she will continue with Tylenol No. 3 3 times a day as needed for pain. Patient with COPD. At discharge she will continue with her medication including Symbicort 2 puffs twice daily and albuterol 2 puffs 3 times a day as needed for shortness of breath. Patient with anemia chronic disease with iron deficiency. At discharge patient will continue iron 325 mg 1 pill daily. Recommend to recheck CBC in 1 to 2 weeks to monitor progress. Vital Signs/Physical Exam: Temp Pulse Resp BP Pulse Ox 97 F 81 16 90/51 L 97 08/21/21 09:11 08/21/21 09:11 08/21/21 09:11 08/21/21 09:11 08/21/21 09:11 General: Alert, In no apparent distress, Oriented x3, Cooperative HEENT: Atraumatic Neck: Supple Respiratory: Clear to auscultation bilaterally, Normal air movement Cardiovascular: Normal pulses, Regular rate/rhythm Gastrointestinal: Normal bowel sounds, No tenderness, No masses, No rebound, No guarding Musculoskeletal: No tenderness, No warmth Integumentary: Other (Mild bruising to the arm) Neurological: Normal speech, Normal strength at 5/5 x4 extr, Normal tone, Normal affect Laboratory Data at Discharge: WBC 16.70 K/uL (4.3-10.9) H 08/21/21 07:20 Hgb 10.7 g/dL (12.0-15.0) L 08/21/21 07:20 Hct 32.8 % (36.0-45.0) L 08/21/21 07:20 Plt Count 76 K/uL (152-406) L D 08/21/21 07:20 PT 12.5 SECONDS (9.5-12.5) 08/21/21 07:20 INR 1.09 08/21/21 07:20 APTT 29.0 SECONDS (24.3-36.9) 08/21/21 07:20 Sodium 140 mmol/L (136-145) 08/21/21 07:20 Potassium 3.5 mmol/L (3.5-5.1) 08/21/21 07:20 BUN 11 mg/dL (7-18) 08/21/21 07:20 Creatinine 0.63 mg/dL (0.55-1.3) 08/21/21 07:20 Glucose 100 mg/dL (74-106) 08/21/21 07:20 Phosphorus 1.4 mg/dL (2.5-4.9) L 08/20/21 01:00 Magnesium 2.1 mg/dL (1.8-2.4) 08/21/21 07:20 Total Bilirubin 0.4 mg/dL (0.2-1.0) 08/21/21 07:20 AST 40 U/L (15-37) H 08/21/21 07:20 ALT 168 U/L (12-78) H D 08/21/21 07:20 Alkaline Phosphatase 320 U/L (45-117) H 08/21/21 07:20 Troponin I 1.61 ng/mL (0.0-0.045) H* 08/20/21 09:40 Triglycerides 312 mg/dL (<150) H 08/20/21 01:00 Cholesterol 128 mg/dL (<200) 08/20/21 01:00 HDL Cholesterol 35 mg/dL (40-60) L 08/20/21 01:00 Cholesterol/HDL Ratio 3.66 08/20/21 01:00 Home Medications: Albuterol Sulfate [Proair Hfa] 2 puff IH DAILYPRN PRN 01/20/20 Budesonide/Formoterol Fumarate [Symbicort 160-4.5 Mcg Inhaler] 2 puff IH BIDP PRN 01/20/20 Codeine/APAP [Tylenol #3*] 1 tab PO TIDP PRN 01/20/20 Furosemide [Lasix*] 1 tab PO DAILYPRN PRN 01/20/20 LORazepam [Lorazepam] 1 tab PO BID 01/20/20 Potassium Chloride [K-Dur] 1 tab PO DAILY 01/20/20 Sertraline [Zoloft*] 100 tab PO BID 01/20/20 Topiramate [Topamax*] 50 mg PO BID 01/20/20 buPROPion HCL [Wellbutrin*] 200 mg PO BID 01/20/20 Atorvastatin Calcium [Lipitor] 1 tab PO BEDTIME #30 tab 01/25/20 Aspirin [Aspirin EC] 1 tab PO DAILY 12/11/20 Lisinopril [Zestril] 1 tab PO DAILY 12/11/20 Metoprolol Tartrate 1 tab PO BID 12/11/20 Eszopiclone [Lunesta] 3 mg PO BEDTIME 03/02/21 Ferrous Sulfate [Iron] 1 tab PO DAILY 03/02/21 Magnesium Chloride [Magnesium] 1 tab PO DAILY 03/02/21 Promethazine HCl 25 mg PO BID 03/02/21 Isosorbide Mononitrate [Isosorbide Mononitrate ER] 30 mg PO DAILY #30 tab.er.24h 04/06/21 Apixaban [Eliquis] 5 mg PO BID #60 tablet 08/21/21 New Medications: Apixaban [Eliquis] 5 mg PO BID #60 tablet Physician Discharge Instructions: Patient presented with chest pain. Patient found to have elevated troponin likely ischemic demand especially with her history of CAD. Cardiology recommended no intervention at this time. Patient with prior CABG and stents in the past. Patient with significant peripheral vascular disease and history of DVT on chronic anticoagulation therapy as well. Patient had been on Eliquis but this was switched to Coumadin. She reports having a DVT to the upper left extremity while having Covid. Most recently her Coumadin has been adjusted. Patient was found to be supratherapeutic. INR was elevated. Patient required vitamin K. Case discussed at length with cardiology and hematology. Hematology reports patient has had hypercoagulable work-up in the past. Cardiology recommends to discontinue Coumadin due to her difficulty in getting her INR therapeutic. Cardiology recommends to restart Eliquis and discontinue Coumadin especially in light of her chronic thrombocytopenia and difficulty in controlling INR. At discharge the patient will continue with Eliquis 5 mg 1 pill twice daily. Recommend follow-up with her it project manager at [facility]. I will discussed the case in detail with her it project manager so that he is aware of the current change in medication. Case discussed at length with patient. Patient agrees with plan of care. She prefers to be on Eliquis than Coumadin. Recommend follow-up with hematology in 1 week to follow-up his hospitalization and to further monitor her care. Patient with peripheral vascular disease, CAD. At discharge she will continue with her current medications including Imdur ER 30 mg daily, magnesium 64 mg daily, aspirin 81 mg daily, and Lasix 40 mg daily as needed for edema. When taking Lasix she will continue with her potassium supplementation. Recommend follow-up with cardiology to further monitor her care. Patient with hypertension. Blood pressure stable. At discharge she will continue with her current medications of lisinopril 10 mg daily and metoprolol 75 mg 1 pill twice daily. Recommend to monitor blood pressure daily. Recommend to maintain blood pressure less than 130/80. Further adjustment can be done by her PCP. Patient had elevated liver function. This was likely related to her ischemic demand and elevated INR. For function tests improved. This can be monitored as an outpatient. Recommend to recheck CMP in 1 to 2 weeks to monitor resolution. Patient with hyperlipidemia. At discharge patient may continue with her medication Lipitor 80 mg daily. As mentioned above liver function test was elevated. Recommend to recheck and monitor her CMP in 1 to 2 weeks. If still elevated consider decreasing dose of Lipitor. Patient with chronic thrombocytopenia. Overall stable. Case discussed at length with hematology. Continue with above recommendations on discontinuing Coumadin and switching over to Eliquis. Recommend to recheck CBC in 1 to 2 weeks to monitor her progress. Recommend follow-up with hematology in 1 week to further monitor her care. Patient with chronic headaches. At discharge she will continue with Topamax 50 mg 1 pill twice daily. Patient with depression with anxiety. At discharge we will continue with her medications including Wellbutrin 200 mg 1 pill twice daily, Zoloft 100 mg daily, lorazepam 2 mg 1 pill twice daily as needed for anxiety and Lunesta 3 mg at bedtime. Patient with chronic pain. At discharge she will continue with Tylenol No. 3 3 times a day as needed for pain. Patient with COPD. At discharge she will continue with her medication including Symbicort 2 puffs twice daily and albuterol 2 puffs 3 times a day as needed for shortness of breath. Patient with anemia chronic disease with iron deficiency. At discharge patient will continue iron 325 mg 1 pill daily. Recommend to recheck CBC in 1 to 2 weeks to monitor progress. Diet: AHA Activity: Fall precautions Followup: NONE,NONE [Primary Care Provider] - Time spent managing pt's care (in minutes): 55
[2021-08-21] MEDS: ONDANSETRON 4 MG/2 ML VIAL IV PRN (09:34)
--- NOTE | 2021-08-21 13:54 | CON ---
Date of Consultation: 08/20/2021 Reason For Consultation: Chest pain. History Of Present Illness: Ms. Whyte is 56. We know her from the past. She has had a history of CABG in the past in January 2020, underwent angioplasty and stent of the ostium and RCA. She had a MENENDEZ to the LAD that is open. Circumflex was okay. She also has a history of congestive heart failure, deep venous thrombosis in the left upper extremity. She has a history of anxiety, hypertension, rece nt CVA, dyslipidemia, and seizure. She has some kind of coagulation issue in April 2020. She wa s switched from Eliquis to Coumadin because she has on the Eliquis and supposed to be on C oumadin for life. She comes in with some chest pain. INR was 13.57, elevated liver functions, eleva brissa white count. Troponin 0.38. Hematoma in the left upper extremity with some cyanosis of her left hand. No nausea, vomiting, diaphoresis, PND, orthopnea, pedal edema, palpitation, or syncope. Past Medical History: As stated above. Allergies: SHE IS ALLERGIC TO GABAPENTIN AND TRAMADOL. Review of Systems: Negative. Social History: Negative. Family History: Negative. Medications: At home include Coumadin, lisinopril, metoprolol, Imdur, Lipitor, Lasix, inhaler, and a spirin. Physical Examination: Vital Signs: Stable. She was in sinus rhythm. She was afebrile. General: Alert and oriented x3. HEENT: Negative. Neck: Supple with no bruit. Chest: Clear. Cardiac: Revealed a regular rhythm and rate. No murmurs, gallops, or rubs. Abdomen: Benign. Extremities: Revealed swelling in the left upper extremity with some cyanosis of her left hand and o bvious hematoma in the left upper extremity. The lower extremities had no clubbing, cyanosis, or michelle ma. Diagnostic Data: As stated earlier. Impression And Plan: 1.Coumadin toxicity with elevated INR, liver function test. She has vitamin K. She needs to be fermín dged with Lovenox and restarted on the Coumadin after the INR is below 2. Apparently, Eliquis has be en held in the past and switched to Coumadin after COVID in April 2020 because she is still on the Eliquis, so she needs to be on Coumadin for life. I suggest Hematology followup and Hem atology consultation. This case was discussed with Dr. Michel. 2.Coronary artery disease with continued chest pain. Obviously, the patient is not a candidate at t his point for any intervention with her INR related, but I think she may need to have repeat heart ca theterization once everything settles down. We will make sure she has follow up with Dr. Escobar in t he near future. 3.Chronic diastolic congestive heart failure. 4.Deep venous thrombosis of left upper extremity. 5.Anxiety. 6.Hypertension. 7.Recent COVID. 8.History of cerebrovascular accident. 9.Dyslipidemia. 10.Seizures. We will continue to follow her while she is in the hospital. ANDRES/VENANCIO Voice ID: [id number] Report ID: [id number]
[2021-08-22 11:35] LABS: C.diff Antigen/Toxin Ag neg : Tox neg (NEG : NEG)
== END 2021-08-21 12:05 | disposition home or self-care (01) | DRG 311 ==
LOC: ER 16:55 → ERHOLD 23:48 → 2ND 08-20 14:35
PROVIDERS: ADMIT Family Medicine; ATTEND Family Medicine
DX: I24.8 Other forms of acute ischemic heart disease (principal); I50.32 Chronic diastolic (congestive) heart failure; I25.700 Atherosclerosis of coronary artery bypass graft(s), unspecified, with unstable angina pectoris; I11.0 Hypertensive heart disease with heart failure; E78.5 Hyperlipidemia, unspecified; K21.9 Gastro-esophageal reflux disease without esophagitis; I73.9 Peripheral vascular disease, unspecified; D69.6 Thrombocytopenia, unspecified; J44.9 Chronic obstructive pulmonary disease, unspecified; I48.91 Unspecified atrial fibrillation; F41.8 Other specified anxiety disorders; D50.9 Iron deficiency anemia, unspecified; D72.829 Elevated white blood cell count, unspecified; I25.2 Old myocardial infarction; R47.9 Unspecified speech disturbances; R51.9 Headache, unspecified; R94.5 Abnormal results of liver function studies; Z88.5 Allergy status to narcotic agent; Z88.8 Allergy status to other drugs, medicaments and biological substances; Z79.01 Long term (current) use of anticoagulants; Z79.899 Other long term (current) drug therapy; Z86.73 Personal history of transient ischemic attack (TIA), and cerebral infarction without residual deficits; Z79.82 Long term (current) use of aspirin; Z90.49 Acquired absence of other specified parts of digestive tract; Z95.1 Presence of aortocoronary bypass graft; Z86.718 Personal history of other venous thrombosis and embolism; Z95.5 Presence of coronary angioplasty implant and graft; Z20.822 Contact with and (suspected) exposure to COVID-19
CPT/HCPCS: 36415; 71045; 74176; 80048; 80053; 80061; 80076; 81003; 81015; 82550; 83605; 83735; 83880; 84100; 84145; 84439; 84443; 84484; 85025; 85610; 85730; 87040; 87324; 87449; 93005; 94760; 97116; 97161; 99285; J2270; J2405; J3430; J7606; U0003

== ENCOUNTER 2022-01-05 06:51 | Emergency (ER) | payer OTHER ==
--- OUTSIDE RECORDS SUMMARY | 2022-01-05 07:05 | XMS REPORT | Continuity of Care Document ---
:1965 Author Organization [facility] [place] t Address [address] [place] [address] Care Team Providers Name Role Phone THOMAS LLANES Primary Care Physician Unavailable Micheal Attending Clinician Unavailable BEATRIZ Attending Clinician Unavailable BRITTANY Attending Clinician Unavailable BRITTANY Attending Clinician Unavailable THOMAS LLANES Attending Clinician Unavailable SHANKAR Attending Clinician Unavailable Moe ANDERSON Attending Clinician Shankar ANDERSON Attending Clinician Floyd ANDERSON, K.H. Attending Clinician FLOYD, K.H. Attending Clinician Unavailable Doctor Unassigned, Name Attending Clinician Unavailable SHANKAR Admitting Clinician Unavailable Shankar ANDERSON Admitting Clinician Payers Payer Name Policy Type Policy Number Effective Date Expiration Date Kalli sandoval [facility] [id number] 2013 2024 MEDICAID [id number]+[id number] 00:00:00 00:00:00 [facility] [id number] 2015 MEDICAID 00:00:00 Problems Condition Condition Condition Status Onset Resolution Last Treating Co mments Source Name Details Category Date Date Treatment Clinician Date At risk of At risk of Disease Active Overview : Univers seizures seizures 4- Formattin ity of 00:00: g of this [place] 00 note Medical might be Branch different from the original. 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 4-28 it y of 00:00: [place] 00 Medical Branch Thrombocyt Thrombocyt Disease Active U nivers openia openia 3-24 ity of 00:00: [place] 00 Medical Branch GIB GIB Disease Active 2019- Univers (gastroint (gastroint 1-24 it y of estinal estinal 00:00: [place] bleeding) bleeding) 00 [facility] see Branch Generalize Generalize Disease Active 2019- U nivers d d 1-24 ity of abdominal abdominal 00:[place] pain pain 00 Medical [place] Weakness Weakness Disease Active 2020- Unive rs 5-09 ity of 00:00: [place] 00 Medical Branch Pericardia Pericardia Disease Active 2020-0 U nivers l effusion l effusion 3-09 it y of 00:00: [place] 00 Medical Branch Arm DVT Arm DVT Disease Active 2020- Univers (deep (deep 3-09 ity of venous venous 00:00: [place] thromboemb thromboemb 00 Me dical olism), olism), Branch acute, acute, left left Chest pain Chest pain Disease Active 2020-0 U nivers 3-08 ity of 00:00: [place] 00 Medical Branch NSTEMI NSTEMI Disease Active 2020-0 Univers (non-ST (non-ST 2-23 ity of elevated elevated 00:00: [place] myocardial myocardial 00 Me dical infarction infarction Br anch ) ) Left sided Left sided Disease Active 2019- U nivers numbness numbness 1-17 ity of 00:00: [place] 00 Medical Branch S/P CABG S/P CABG Disease Active 2018-08 Unive rs (coronary (coronary 1-13 ity of artery artery 00:00: [place] bypass bypass 00 Medical graft) graft) Branch Leukocytos Leukocytos Disease Active 2018-08 U nivers is is 0-30 ity of 00:00: [place] [facility] Tachycardi Tachycardi Disease Active 2018-08 U nivers a a 0-29 ity of 00:00: [place] 00 Medical Branch Coronary Coronary Disease Active 2018-08 Overview: Un tan artery artery 0-22 Formattin ity of disease disease 00:00: g of this [place] involving involving 00 note Medi see elem elem might be Branch coronary coronary different artery of artery of from the elem elem original. heart with heart with Added angina angina automatic pectoris pectoris ally from request for surgery [id number] Sepsis Sepsis Disease Active Univers 9-16 ity of 00:00: [place] [facility] Obesity Obesity Disease Active Univers (BMI (BMI 9-16 ity of 30-39.9) 30-39.9) 00:00: [place] [facility] Other Other Disease Active Univers chest pain chest pain 9-16 it y of 00:00: [place] [facility] Septic Septic Disease Active Univers shock shock 9-16 ity of 00:00: [place] [facility] Troponin I Troponin I Disease Active U nivers above above 9-16 ity of reference reference 00:00: [place] range range 00 Medical Branch STROKE Diagnosis Active 2019-03-09 Mem oria 7-23 16:26:00 l STROKE 00:00: [place] 00 Active 03/09/2019 [facility] DYSPNEA Diagnosis Active 2019-03-15 Me moria 7- 15:12:00 l DYSPNEA 00:00: [place] 00 Active 03/09/2019 [facility] ISADORA (acute ISADORA (acute Disease Active 2019- U nivers kidney kidney 5-08 ity of injury) injury) 00:00: [place] [facility] 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 5-07 ity of syndrome syndrome 00:00: [place] 00 Medical Branch History of History of Disease Active Overview : Univers CVA CVA 12-22 Formattin ity of (cerebrova (cerebrova 00:00: g of this [place] scular scular 00 note Medical accident) accident) [...] nivers n n 5-07 ity of 00:00: Medical Branch Essential Essential Disease Active Uni vers hypertensi hypertensi 4-23 it y of on on 00:00: Medical Branch History of History of Disease Active U nivers arterial arterial 4-23 ity of ischemic ischemic 00:00: [place] stroke stroke 00 Medical Branch Hypokalemi Hypokalemi Disease Active U nivers a a 4-23 ity of 00:00: 00 Medical Branch Abnormal Abnormal Disease Active Unive rs albumin albumin 4-23 ity of 00:00: Medical Branch Abnormal Abnormal Disease Active Unive rs liver liver 4-23 ity of function function 00:00: Medical Branch Other Other Disease Active Univers hyperlipid hyperlipid 4-23 it y of emia emia 00:00: Medical Branch Anasarca Anasarca Disease Active Unive rs 4-22 ity of 00:00: [place] 00 Medical Branch Chronic Chronic Disease Active Univers diastolic diastolic 4-22 ity of HF (heart HF (heart 00:00: [place] failure) failure) 00 Medica l Branch Morbid Morbid Disease Active Univers obesity obesity 4-22 ity of with body with body 00:00[place] mass index mass index 00 Me dical of of Branch 40.0-49.9 40.0-49.9 ENCEPHALIT Diagnosis Active 2015-03-23 Memoria IS/SEIZURE 7-30 15:07:00 l S 00:00: [place] ENCEPHALIT 00 IS/SEIZURE S Active 03/16/2015 [facility] NON-HEMORR Diagnosis Active 2014-11-01 Memoria AGHIC - 15:25:00 l STROKE 00:00: [place] NON-HEMORR 00 AGHIC STROKE Active 10/25/2014 [facility] ISCHEMIC Diagnosis Active 2013-11-13 M emoria CVA 11-12 04:08:00 l ISCHEMIC 00:00: Enrique n CVA 00 Active 11/12/2013 [facility] WEAKNESS Diagnosis Active 2013-11-26 M emoria 11-12 21:50:00 l WEAKNESS 00:00: Enrique n 00 Active 11/12/2013 [facility] AMS Diagnosis Active 2013-06-01 Mem oria 05-08 21:46:00 l AMS 00:00: [place] 00 Active 05/08/2013 [facility] CEREBRAL Diagnosis Active 2011-082012-07-24 M emoria VASCULAR 09-19 23:24:00 l ACCIDENT CEREBRAL 00:00: [place] tin VASCULAR 00 ACCIDENT Active 07/19/2012 [facility] Anxiety Problem Resolve 2019-03-14 Mem oria (finding) d 22:30:17 l Anxiety [place] (finding) Resolved Problem 03/14/2019 [facility] Transient Problem Resolve 2019-03-14 M emoria ischemic d 22:30:17 l attack [place] (disorder) Transient ischemic attack (disorder) Resolved Problem 03/14/2019 [facility] Gastroesop Problem Resolve 2019-03-14 Memoria hageal d 22:30:17 l reflux [place] disease Gastroesop (disorder) hageal reflux disease (disorder) Resolved Problem 03/14/2019 [facility] Nausea Problem Resolve 2019-03-14 Mike sujey (finding) d 22:30:17 l Nausea [place] (finding) Resolved Problem 03/14/2019 [facility] Anxiety Problem Active 2013-05-14 Mike sujey 21:29:09 l Anxiety [place] Active Problem 05/14/2013 [facility] COPD Problem Active 2013-05-14 Memor ia 21:29:09 l COPD [place] Active Problem 05/14/2013 [facility] Depression Problem Active 2013-05-14 M emoria 21:29:09 l [place] Depression Active Problem 05/14/2013 [facility] General Problem Active 2013-05-14 Mike sujey weakness 21:29:09 l General [place] weakness Active Problem 05/14/2013 [facility] Hypertensi Problem Active 2013-05-14 M emoria on 21:29:09 l [place] Hypertensi on Active Problem 3 [facility] Migraine Problem Active 2013-05-14 Mem oria 21:29:09 l Migraine Enrique n Active Problem 05/14/2013 [facility] Stroke Problem Active 2013-05-14 Memor ia 21:29:09 l Stroke [place] Active Problem 05/14/2013 [facility] Chronic Problem Active 2019-03-14 Mike sujey obstructiv 22:30:17 l e lung Chronic [place] disease obstructiv (disorder) e lung disease (disorder) Active Problem 03/14/2019 [facility] Cerebrovas Problem Active 2019-03-14 M emoria cular 22:30:17 l accident [place] (disorder) Cerebrovas cular accident (disorder) Active Problem 03/14/2019 [facility] Depression Problem Active 2015-03-25 M emoria - motion 01:09:45 l (qualifier Enrique n value) Depression - motion (qualifier value) Active Problem 03/25/2015 [facility] Hypertensi Problem Active 2019-03-14 M emoria ve 22:30:17 l disorder, [place] systemic Hypertensi arterial ve (disorder) disorder, systemic arterial (disorder) Active Problem 03/14/2019 [facility] Migraine Problem Active 2019-03-14 Mem oria (disorder) 22:30:17 l Migraine Enrique n (disorder) Active Problem 03/14/2019 [facility] Morbid Problem Active 2019-03-14 Memor ia obesity 22:30:17 l (disorder) Morbid [place] tin obesity (disorder) Active Problem 03/14/2019 [facility] DYSPNEA, Diagnosis Active 2019-03-15 M emoria UNSPECIFIE 15:12:00 l D DYSPNEA, Enrique n UNSPECIFIE D Active [facility] CVA Diagnosis Active 2014-11-01 Mem oria 15:25:00 l CVA [place] Active [facility] ALTERED Diagnosis Active 2013-06-01 Me moria MENTAL 21:46:00 l STATUS ALTERED [place] MENTAL STATUS Active [facility] MALAISE Diagnosis Active 2013-11-26 Me moria AND 21:50:00 l FATIGUE MALAISE Enrique n NEC AND FATIGUE NEC Active [facility] FEBRILE Diagnosis Active 2015-03-23 Me moria CONVULSION 15:07:00 l S NOS FEBRILE [place] CONVULSION S NOS Active [facility] 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Common is, is, Spirit unspecifie unspecifie - [facility] d type d type [facility] Adult BMI Adult BMI Diagnosis Active C ommon 40.0-44.9 40.0-44.9 Spir it kg/sq m kg/sq m [facility] Depression Depression Problem Active C ommon with with Spirit anxiety anxiety - [facility] Left Left Problem Active Common hemiparesi hemiparesi Sp andrea s s [facility] Obstructiv Obstructiv Problem Active C ommon e sleep e sleep Spirit apnea apnea - [facility] Post Post Problem Active Common traumatic traumatic Spir it stress stress - [facility] disorder disorder [facility] 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 - [facility] History of History of Problem Active C ommon cerebrovas cerebrovas Sp andrea cular cular - [facility] accident accident with with [facility] current current Medical residual residual Center effects effects Hyperlipem Hyperlipem Problem Active C ommon ia, mixed ia, mixed Spir it [facility] Migraine Migraine Problem Active Commo n Spirit [facility] Peripheral Peripheral Problem Active C ommon vascular vascular Spirit disease disease - [facility] GERD GERD Diagnosis Active Common without without Spirit esophagiti esophagiti - [facility] s [facility] S/P CABG x S/P CABG x Problem Active C ommon 1 1 [facility] Chronic Chronic Problem Active Common systolic systolic Spirit heart heart - [facility] failure failure [facility] Benign Benign Problem Active Common essential essential Spir it HTN HTN - [facility] Obesity Obesity Problem Active Common [facility] Cough Cough Problem Active Common Spirit [facility] Anticoagul Anticoagul Problem Active C ommon ated ated [facility] Chronic Chronic Problem Active Common back pain back pain Spir it [facility] Stented Stented Problem Active Common coronary coronary Spirit artery artery - [facility] History of History of Problem Active C ommon non-ST non-ST Spirit elevation elevation - CH I myocardial myocardial St infarction infarction [facility] (NSTEMI) (NSTEMI) [facility] Coronary Coronary Problem Active Commo n artery artery Spirit disease of disease of - [facility] bypass bypass St graft of graft of [facility] elem elem Medical heart with heart with Ce nter stable stable angina angina pectoris pectoris Coronary Coronary Problem Active Commo n artery artery Spirit disease disease - [facility] involving involving St elem elem [facility] coronary coronary Medica l artery of artery of Cent er elem elem heart with heart with angina angina pectoris pectoris Allergies, Adverse Reactions, Alerts Allergy Allergy Status Severity Reaction(s) Onset Inactive Treating Comm ents Source Name Type Date Date Clinician Gabapent Propensi Active Hives 2019-08 Univer s in ty to 09-10 ity of adverse 00:00: [place] reaction 00 Medical s Branch Butorpha Propensi Active Unknown - 2019-08 Uni vers nol ty to See comments 09-10 ity of adverse 00:00: [place] reaction 00 Medical s Branch Ketorola Propensi Active Nausea 2019-08 Was told Univ ers c ty to and/or 09-10 to avoid ity of adverse Vomiting 00:00: because [place] reaction 00 it would Medica l s irritate Branch her stomach Nsaids Propensi Active Nausea 2019-08 Was told Univer s (Non-Sergio ty to and/or 09-10 to avoid ity of roidal adverse Vomiting 00:00: because [place] Anti-Inf reaction 00 it would Medi see lammator s irritate Branch y Drug) her stomach GABAPENT DRUG Active Hives 2019-08 [...] 2005-0 Univer s perazine ty to and/or 104 ity of Edisylat adverse Vomiting 00:00: [place] e reaction 00 Medical s Branch Divalpro Propensi Active Anxiety 2005-0 Unive rs ex ty to -04 ity of Sodium adverse 00:00: [place] reaction 00 Medical s Branch Butorpha Propensi Active Rash 2005-0 Univer s nol ty to -04 ity of Tartrate adverse 00:00: [place] reaction 00 Medical s Branch Ketorola Propensi Active Rash 2005-0 Univer s c ty to 1-04 ity of Trometha adverse 00:00: [place] mine reaction 00 Medical s Branch PROCHLOR DRUG Active N/V 0 Univers PERAZINE INGREDI -04 ity of EDISYLAT 00:00: [place] E 00 Medical Branch DIVALPRO DRUG Active Anxiety 2005-0 Univers EX INGREDI -04 ity of SODIUM 00:00: [place] 00 Medical Branch BUTORPHA DRUG Active Rash 2005-0 Univers NOL INGREDI -04 ity of TARTRATE 00:00: [place] 00 Medical Branch KETOROLA DRUG Active Rash 2005-0 Univers C INGREDI -04 ity of TROMETHA 00:00: [place] MINE 00 Medical Branch Toradol Adverse Active Info Not Common Reaction Available [facility] Stadol Adverse Active Info Not Common Reaction Available [facility] Lyrica Adverse Active Info Not Common Reaction Available [facility] Ibuprofe Adverse Active Info Not Commo n n Reaction Available [facility] t - [facility] Divalpro Adverse Active Info Not Commo n ex Reaction Available Spiri t Sodium - [facility] NSAIDs NSAIDs Active Memoria l [place] Stadol Stadol Active Memoria l [place] Toradol Toradol Active Memoria l [place] Vicoprof Vicoprof Active Memori a en en l [place] Compazin Compazin Active Memori a e e l [place] Depakote Depakote Active Memori a l [place] labetalo labetalo Active Memori a l l l [place] Social History Social Habit Start Date Stop Date Quantity Comments Source History of tobacco Cigarette Smoker University of use [facility] Exposure to 2021-12-11 2021-12-21 Not sure [facility] SARS-CoV-2 (event) 00:00:00 01:54:00 [facility] Alcohol intake 2021-12-21 2021-12-21 0 /d [facility] 00:00:00 00:00:00 [facility] Cigarettes smoked 2020-07-11 2020-07-11 Univers ity of current (pack per 00:00:00 00:00:00 [facility] ) - Reported Branch Cigarette 2020-07-11 2020-07-11 University of pack-years 00:00:00 00:00:00 [facility] Tobacco use and 2020-07-11 2020-07-11 Never used Universit y of exposure 00:00:00 00:00:00 [facility] Branch History [facility] 2019-10-25 2019-10-25 2 University o f Financial 00:00:00 00:00:00 [facility] Branch Education 2019-10-10 2019-10-10 14 University of 00:00:00 00:00:00 [place] [facility] History [facility] Food 2019-10-10 2019-10-10 2 Univers ity of Worry 00:00:00 00:00:00 [facility] Branch History [facility] Food 2019-10-10 2019-10-10 2 Univers ity of Scarcity 00:00:00 00:00:00 [place] [facility] History SDOH 2019-10-10 2019-10-10 2 University o f Transport Med 00:00:00 00:00:00 [place] [facility] Branch History SDNM 2019-10-10 2019-10-10 2 University o f Transport Non-Med 00:00:00 00:00:00 [facility] edical Branch Social History 2015-03-17 2015-03-17 [facility] dev 07:18:43 07:18:43 [birth year] Universit y of 00:00:00 00:00:00 [facility] Smoking Status Start Date Stop Date Source Former smoker 2020-07-11 00:00:00 2020-07-11 00:00:00 [facility] Medications Ordered Filled Start Stop Current Ordering Indication Dosage Frequency Signature Comments Components Source Medication Medication Date Date Medication? Clinician (SIG) Name Name buPROPion Yes 200mg Take 200 Uni vers 200 mg 12 5-07 mg by ity of hr tablet 16:00: mouth 2 [place] [id number] (two) Medical times Branch daily. methocarbam Yes 500mg Take 500 U nivers oL 750 mg 5-07 mg by ity of tablet 16:00: mouth 2 [place] [address] (two) Medical times Branch daily. SERTraline Yes 100mg Take 100 Un tan 100 mg 5-07 mg by ity of tablet 16:00: mouth [place] [address] daily. Medical Branch topiramate Yes 50mg Take 50 mg U nivers 25 mg Cp24 5-07 by mouth 2 ity of 16:00: (two) [place] [address] times Medical daily. Branch acetaminoph Yes Take by Un tan en with 5-07 mouth ity of codeine 16:00: every 6 [place] (TYLENOL-CO 16 (six) Medical DEINE #3 hours as Branch ORAL) needed (back pain). warfarin 0 Yes 5mg Take 5 mg Univ ers (COUMADIN) 5-07 by mouth ity o f 5 mg tablet 16:00: every [place] [address] evening. Medical Branch metoprolol 0 Yes 50mg 50 mg, Unive rs succinate 5-07 Oral, BID, ity of XL (TOPROL 01:00: First dose [place] XL) tablet 00 (after Medical 50 mg last Branch modificati on) on Fri12/21/21 at 2000, Until Discontinu ed, Routine metoprolol 2021-0 2021- Yes [id number] 50mg Take 1 Univers succinate 5-07 06-07 tablet by ity of XL 50 mg 24 00:00: 04:59 mouth 2 [place] hr tablet 00 :00 (two) Medical times Branch daily for 30 days. ondansetron 0 Yes 4mg 4 mg, Slow Univers (ZOFRAN 5- IV Push, ity of (PF)) 22:37: Q6HPRN, [place] injection 4 53 Nausea and Me dical mg Vomiting Branch (N/V), Starting on Fri12/21/21 at 1737
Do ses of ondansetro n 16 mg and above need to be administer ed via IV piggyback. For Dose >=24mg ECG monitoring is advisable.
metoprolol 0 2021- No 25mg 25 mg, Univ ers tartrate 12-21 05-06 Oral, ity of (LOPRESSOR) 15:00: 14:07 ONCE, 1 [place] tablet 25 00 :00 dose, On Medica l mg Fri12/21/21 Branch at 1000, Routine ezetimibe Yes 10mg 10 mg, Univer s (ZETIA) 5- Oral, ity of tablet 10 14:00: DAILY, [place] mg 00 First dose Medical on Fri Branch 12/21/21 at 0900, Until Discontinu ed, Routine SERTraline Yes 100mg 100 mg, Uni vers (ZOLOFT) 5- Oral, ity of tablet 100 14:00: DAILY, [place] mg 00 First dose Medical on Fri Branch 12/21/21 at 0900, Until Discontinu ed, Routine isosorbide 0 Yes 30mg 30 mg, Unive rs mononitrate - Oral, ity of (IMDUR) 24 14:00: DAILY, [place] hr tablet 00 First dose Medi see 30 mg on Fri Branch 12/21/21 at 0900, Until Discontinu ed, Routine furosemide 0 Yes 40mg 40 mg, Unive rs (LASIX) 5- Oral, ity of tablet 40 14:00: DAILY, [place] mg 00 First dose Medical on Fri Branch 12/21/21 at 0900, Until Discontinu ed, Routine topiramate 0 Yes 25mg 25 mg, Unive rs (TOPAMAX) 5-06 Oral, BID, ity of tablet 25 13:00: First dose [place] mg 00 on Fri Medical 12/21/21 at Branch 0800, Until Discontinu ed
Facu lty member approving Restricted medication : MEGADC magnesium Yes 400mg 400 mg, Univ ers oxide - Oral, BID, ity of (MAG-OX 13:00: [place] 400) tablet 00 on Fri Medica l 400 mg 12/21/21 at Branch 0800, Until Discontinu ed, Routine metoprolol 2021- No 25mg 25 mg, Univ ers succinate 12-21 05-06 Oral, BID, ity of XL (TOPROL 13:00: 13:38 First dose [place] XL) tablet 00 :43 on Fri Medical 25 mg 12/21/21 at Branch 0800, Until Discontinu ed, Routine ondansetron No 4mg 4 mg, Slow Univers (ZOFRAN 12-21 IV Push, ity of (PF)) 09:45: 08:37 ONCE, On [place] injection 4 00 :00 Fri12/21/21 Me dical mg at 0445, Branch For 1 dose
Do ses of ondansetro n 16 mg and above need to be administer ed via IV piggyback. For Dose >=24mg ECG monitoring is advisable.
buPROPion Yes 75mg 75 mg, Univer s (WELLBUTRIN 12-21 Oral, TID, it y of ) tablet 75 09:00: First dose [place] mg 00 on Fri Medical 12/21/21 at Branch 0400, Until Discontinu ed, Routine warfarin Yes 5mg 5 mg, Univers (COUMADIN) 12-21 Oral, ity of tablet 5 mg 09:00: [place]ILY AT [place] 00 1700, Medical First dose Branch on Fri12/21/21 at 0400, Until Discontinu ed, Routine
INR Goal Range: 2-3
IND ICATION (More than one indication for warfarin can be selected): DVT and/or PE levETIRAcet Yes 500mg 500 mg, Un tan am (KEPPRA) 5-06 Oral, BID, it y of tablet 500 09:00: First dose [place] mg 00 on Fri Medical 12/21/21 at Branch 0400, Until Discontinu ed, Routine aspirin 0 Yes 81mg 81 mg, Univers chewable 12-21 Oral, QAM ity of tablet 81 09:00: WITH [place] mg 00 BREAKFAST, Medical First dose Branch on Fri12/21/21 at 0400, Until Discontinu ed, Routine morpHINE 0 Yes 2mg 2 mg, Slow Uni vers injection 2 12-21 IV Push, ity of mg 08:57: Q6HPRN, [place] 37 Starting Medical on Fri12/21/21 at 0357, Until Discontinu ed, Routine, Pain (scale 7-10), Chest pain LORazepam Yes 1mg 1 mg, Univers (ATIVAN) 12-21 Oral, ity of tablet 1 mg 08:53: BIDPRN, [place] as 24 Starting Medical on Fri Branch 12/21/21 at 0353, Until Discontinu ed, Routine, anxiety furosemide 0 2021- No 40mg 40 mg, IV U nivers (LASIX) 12-21 Push, ity of injection 07:15: 06:28 ONCE, 1 [place] 40 mg 00 :00 dose, On Medical Fri12/21/21 Branch at 0215, SILVIO iopamidol 2021- No [id number] 120mL 120 mL, Univers (ISOVUE 12-21 Intravenou ity o f 370-500 mL) 06:15: 05:11 s, ONCE, 1 [place] injection 00 :00 dose, On Medica l 120 mL Fri12/21/21 Branch at 0115, Routine ondansetron 0 2021- No 4mg 4 mg, Slow Univers (ZOFRAN 12-21 IV Push, ity of (PF)) 04:00: 03:54 ONCE, 1 [place] injection 4 00 :00 dose, On Medi see mg Beatriz 12/20/21 Branch at 2300, SILVIO morpHINE 2021-0 2021- No 4mg 4 mg, Slow Un tan injection 4 12-2106 IV Push, ity of mg 04:00: 03:54 ONCE, 1 [place] 00 :00 dose, On Medical Beatriz 12/20/21 Branch at 2300, STAT warfarin 2021-0 Yes 5mg Take 5 mg Univ ers (COUMADIN) 4-29 by mouth ity o f 5 mg tablet 14:36: every [place] 31 evening. Medical Branch buPROPion 0 Yes 200mg Take 200 Uni vers 200 mg 12 4-29 mg by ity of hr tablet 13:39: mouth 2 [place] 52 (two) Medical times Branch daily. methocarbam 0 Yes 500mg Take 500 U nivers oL 750 mg 4-29 mg by ity of tablet 13:39: mouth 2 [place] 52 (two) Medical times Branch daily. SERTraline 0 Yes 100mg Take 100 Un tan 100 mg 4-29 mg by ity of tablet 13:39: mouth [place] 52 daily. Medical Branch topiramate 0 Yes 50mg Take 50 mg U nivers 25 mg Cp24 4-29 by mouth 2 ity of 13:39: (two) [place] 52 times Medical daily. Branch acetaminoph Yes Take by Un tan en with 4-29 mouth ity of codeine 13:39: every 6 [place] (TYLENOL-CO 52 (six) Medical DEINE #3 hours as Branch ORAL) needed (back pain). KCL Yes TAKE ONE [facility] (KLOR-CON 4-29 TABLET BY ity o f M20) 20 mEq 00:00: MOUTH [place] tablet 00 DAILY WITH Medical LASIX Branch NEEDED KCL 0 Yes TAKE ONE [facility] (KLOR-CON 4-29 TABLET BY ity o f M20) 20 mEq 00:00: MOUTH [place] tablet 00 DAILY WITH Medical LASIX Branch NEEDED nitroglycer [address] 1 Uni vers in 0.4 mg 4-04 tablet ity of sublingual 00:00: under the [place] tablet 00 tongue Medical every 5 Branch (five) minutes as needed for Chest pain. nitroglycer [address] 1 Uni vers in 0.4 mg 4-04 tablet ity of sublingual 00:00: [place] the [place] tablet 00 tongue Medical every 5 Branch (five) minutes as needed for Chest pain. KCL 0 202- No [id number] TAKE ONE [facility] ers (KLOR-CON 4-04 04-29 TABLET BY ity of M20) 20 mEq 00:00: 00:00 MOUTH [place] tablet 00 :00 DAILY WITH Medical LASIX Branch NEEDED amLODIPine 2021- Yes [id number] 5mg Take 1 [facility] 5 mg tablet 11-18 tablet by it y of 00:00: 04:59 mouth [place] 00 :00 daily for Medical 30 days. Branch levETIRAcet 2021- Yes [id number] 500mg Take 1 [facility] am 500 mg 11-17 tablet by ity of tablet 00:00: 04:59 mouth 2 [place] 00 :00 (two) Medical times [facility] daily for 90 days. levETIRAcet 2021- Yes [id number] 500mg Take 1 [facility] am 500 mg 11-17 tablet by ity of tablet 00:00: 04:59 mouth 2 [place] 00 :00 (two) Medical times [facility] daily for 90 days. metoprolol 2021- Yes [id number] 25mg Take 1 [facility] tartrate 25 11-17 tablet by it y of mg tablet 00:00: 04:59 mouth [place] 00 :[place] (two) Medical times [facility] daily for 30 days. atorvastati Yes 80mg Take 80 mg Univers n 80 mg 3-31 by mouth ity of tablet 00:00: daily. [place] 00 Medical Branch isosorbide 0 Yes 30mg Take 30 mg U nivers mononitrate 3-31 by mouth ity of 30 mg 24 hr 00:00: [place]. [place] tablet [place] isosorbide Yes 30mg Take 30 mg U nivers mononitrate 3-31 by mouth ity of 30 mg 24 hr 00:00: [place]. [place] tablet Medical [place] atorvastati 2021- No 80mg Take 80 mg [facility] n 80 mg 3-31 05-07 by mouth ity of tablet 00:00: 00:00 daily. [place] 00 :00 Medical Branch furosemide Yes [id number] 40mg Take 1 [facility] 40 mg 3-02 tablet by ity of tablet 00:00: mouth [place] 00 every 24 Medical (twenty-fo Branch ur) hours as needed (edema). furosemide Yes [id number] 40mg Take 1 [facility] 40 mg 3-02 tablet by ity of tablet 00:00: mouth [place] 00 every 24 Medical (twenty-fo Branch ur) hours as needed (edema). PROMETHAZIN Yes [id number] TAKE ONE [facility] E 25 mg 1-07 TABLET BY ity of tablet 00:00: MOUTH [place] 00 EVERY 8 Medical HOURS Branch NEEDED FOR NAUSEA AND VOMITING PROMETHAZIN Yes [id number] TAKE ONE [facility] E 25 mg 1-07 TABLET BY ity of tablet 00:00: MOUTH [place] 00 EVERY 8 Medical HOURS Branch NEEDED FOR NAUSEA AND VOMITING ZETIA 10 mg 2020-08 Yes 10mg Take 1 Univ ers tablet 2-02 tablet by ity of 00:00: mouth [place] 00 daily. Medical Branch ZETIA 10 mg 2020-08 Yes 10mg Take 1 Univ ers tablet 2-02 tablet by ity of 00:00: mouth [place] 00 daily. Medical Branch loratadine Yes [id number] 10mg Take 1 [facility] 10 mg 9-13 tablet by ity of tablet 00:00: mouth [place] 00 daily. Medical Branch albuterol Yes [id number] 2{puff} Inhale 2 [facility] 90 9-13 Puffs ity of mcg/actuati 00:00: every 4 [place] as on inhaler 00 (four) Medical hours as Branch needed for Wheezing or Shortness of Breath. loratadine Yes [id number] 10mg Take 1 [facility] 10 mg 9-13 tablet by ity of tablet 00:00: mouth [place] 00 daily. Medical Branch albuterol Yes [id number] 2{puff} Inhale 2 [facility] 90 9-13 Puffs ity of mcg/actuati 00:00: every 4 [place] as on inhaler 00 (four) Medical hours as Branch needed for Wheezing or Shortness of Breath. Iron-Vit Yes 1{tbl} Take 1 Unive rs C-Vit 7- tablet by ity of [id number] 00:00: mouth [place] Acid 00 daily. Medical 100-250-25- Branch 1 mg-mg-mcg-m g per tablet buPROPion Yes 200mg Take 200 Uni vers 200 mg 12 7-09 mg by ity of hr tablet 00:00: mouth 2 [place] 00 (two) Medical times Branch daily. aspirin 81 Yes 81mg Take 81 mg U nivers mg EC 02-23 by mouth ity of tablet 00:00: daily. [place] [facility] Branch Iron-Vit Yes 1{tbl} Take 1 Unive rs C-Vit 02-23 tablet by ity of [id number] 00:00: mouth [place] daily. Medical 100-250-25- Branch 1 mg-mg-mcg-m g per tablet buPROPion Yes 200mg Take 200 Uni vers 200 mg 12 - mg by ity of hr tablet 00:00: mouth 2 (two) Medical times Branch daily. aspirin 81 Yes 81mg Take 81 mg U nivers mg EC 02-23 by mouth ity of tablet 00:00: daily. [place] [facility] Branch Omeprazole Omeprazole Yes James 1 capsule Common 8 [place] 30 minutes Spirit 00:00: before - [facility] 00 morning [facility] LORazepam 2 Yes 2mg Take 1 Univ ers mg tablet 2-27 tablet by ity o f 00:00: mouth 2 (two) Medical times Branch daily. LORazepam 2 Yes 2mg Take 1 Univ ers mg tablet 2-27 tablet by ity o f 00:00: mouth 2 () Medical times Branch daily. lisinopril Yes 10 [...] s with feeding tube less than 14 German (Dobhoff, J-tube etc) and pediatric and patients. [...] s with feeding tube less than 14 German (Dobhoff, J-tube etc) and pediatric and patients. [...] Bin Potassium No Notes: Memori a Chloride 25 (Same as: l 1.33 MEQ/ML 11:10: Potassium [...] POLYETHYLEN No Notes: Mike sujey E GLYCOL 724 Dissolve l 3350 14:00: in 8 oz of water or juice. (Same as: Miralax) Spiriva No Notes: Memoria 7-24 (Same As: l 13:00: Spiriva) Triazolam No 0.25 mg, Mike sujey 7-24 PO, l 05:36: Bedtime, 0 Refill(s) aripiprazol No 5 mg = 1 Me moria e 5 MG Oral 7-24 tab, PO, l Tablet 05:36: Daily, # [place] [Abilify] 00 30 tab, 0 Refill(s) Lorazepam No Notes: Memori a 7-24 (Same as: l 05:32: Ativan) Albuterol No Notes: Memori a 0.833 MG/ML -24 (Same as: l / 05:10: Duoneb) Ipratropium 00 [place] 0.167 MG/ML Inhalant Solution Potassium No Notes: Memori a Chloride 7-24 (Same as: l 05:00: KCL) Infuse no faster than 10 mEq/hr if given peripheral ly. Acetaminoph No 100.4 F, M emoria en 7-24 Start l 03:02: date: [place] 03/09/19 22:02:00 CDT, Duration: 30 day, Stop date: 04/08/19 22:01:00 CDT, 0 Ondansetron 2019-0 No Notes: Memoria 03-10 MEDICATION l 03:02: WASTE [place] 00 Product Size: 4 mg Product Wasted: ___ mg Dextrose 2018-0 No 12.5 gm, Memor ia 50% Syringe 03-10 25 mL, l 03:02: Route: [place] 00 IVP, Drug Form: INJ, Dosing Weight 97.5, kg, PRN, PRN Blood Glucose Results, Start date: 03/09/19 22:02:00 CDT, Duration: 30 day, Stop date: 04/08/19 22:01:00 CDT, 0 Glucagon 0 No 1 mg, Memoria 03-10 Route: IM, l 03:02: Drug form: [place] PDR/INJ, PRN, Dosing Weight 97.5, kg, PRN [...] 03-10 Route: l 00:06: IVP, Drug [place] 00 Form: SOLN, Dosing Weight 97.5, kg, ONCALL, STAT, Start date: 03/09/19 19:06:00 CDT, Duration: 1 doses or times, Dose = 2.2ml/kg, Max dose = 100ml -- "To be infused by Radiology Staff ONLY" heparin 2018-0 No Notes: Memoria additive 03-09 Total l 25,000 unit 23:37: Concentrat [place] [12 00 ion = 50 unit/kg/hr] unit/mL; + Premix Total Diluent volume = Sodium 500 mL Chloride Send Med 0.45% 500 Request 2 mL hours prior to next bag Heparin 30 No Route: Memor ia unit/kg - IVP, PRN, l Bolus 23:37: 2,300 [place] (Heparin 00 unit, 2.3 Dosing mL, Drug Weight) form: INJ, PRN, Heparin Protocol, Start date: 03/09/19 18:37:00 CDT Stop date: 04/08/19 18:36:00 CDT, 30 day, 0 Heparin - No 4,000 Memoria one time - unit, 4 l bolus for 23:37: mL, Route: Dangelo tin ACS IVP, Drug form: INJ, ONCE, Dosing Weight [...] F/P l 22:41: - Sink; E [place] [facility] Tra Bin potassium No 40 mEq, 2 Mem oria chloride 20 03-09 tab, l mEq oral 22:41: Route: PO, [place] tablet, 00 Drug form: extended ERTAB, release ONCE, Dosing Weight 97.5, kg, Priority: STAT, Start date: 03/09/19 17:41:00 CDT, Stop date: 03/09/19 17:41:00 CDT, 0 Isolyte S No Notes: Memori a PH-7.4 03-09 (Same as: l (Bolus) IV 22:38: Isolyte S Dangelo PH 7.4) Acetaminoph No Notes: Do M [...] = 1 M emoria n 80 mg 03-22 tab, PO, l oral tablet 19:27: Bedtime, # [place] 00 30 tab, 1 Refill(s) Levetiracet Yes 1,000 mg = Memoria am 1000 MG 03-22 1 tab, PO, l Oral Tablet 19:27: BID, # 60 H ermann 00 tab, 2 Refill(s) lisinopril Yes 20 mg = 1 Me moria 20 mg oral 05 tab, PO, l tablet 19:27: BID, # 60 Enrique n 00 tab, 1 Refill(s) Rocephin No 1 gm, Memoria 03-22 Route: l 13:00: IVPB, Drug form: PDR/INJ, [id number], Dosing Weight 110.3, kg, Start date: 03/22/15 8:00:00, Duration: 30 day, Stop date: 04/20/15 8:00:00 Valtrex No Notes: Memoria 03-21 (Same As: l 22:00: Valtrex) acyclovir + No Notes: Mike sujey Sodium 03-19 (Same as: l Chloride 18:00: Zovirax) nn 0.9% IV 100 00 mL MEDICATION WASTE Product Size: 500 mg Product Wasted: _0__ mg Magnesium No Notes: Memori a Oxide 03-19 (Same as: l 12:03: Mag-Ox [place] 00 400) Magnesium oxide 247ix=812h g elemental magnesium Dose=____m g magnesium oxide (___mg elemental magnesium) Potassium No Notes: Memori a Chloride 8-02 (Same as: l 1.33 MEQ/ML 12:02: Potassium H ermann Oral 00 Chloride) Solution Lipitor No Notes: Memoria 8- Same as l 14:00: Lipitor [place] Haloperidol No Notes: Mike sujey 7-31 (Same as: l 22:00: Haldol) Sertraline No Notes: Memor ia 7-31 (Same as: l 22:00: Zoloft) pregabalin No Notes: Memor ia 7-31 Same as l 22:00: Lyrica [place] 00 Wellbutrin No Notes: Memor ia 7-31 (Same As: l 16:45: Wellbutrin ) pantoprazol No Notes: Mike sujey e 7- Tablet l 16:45: should not [place] 00 be chewed or crushed. (Same as: Protonix) Keppra No Notes: Memoria 7-31 (Same l 16:03: as:Keppra) [place] 00 Topamax No Notes: Memoria 7-31 (Same As: l 14:00: Topamax) [place] 00 potassium No Notes: Memori a chloride 7 (Same as: l 05:11: Potassium [place] Chloride) heparin No Notes: Memoria 7-31 porcine l 05:00: heparin [place] 00 Keppra + No Notes: Memoria Sodium 7-31 Same as l Chloride 04:00: Keppra [place] 0.9% IV 100 00 Mix with mL 100 mL NS, LR or D5W MEDICATION WASTE Product Size: 500 mg Product Wasted: ___ mg Lisinopril No Notes: Memor ia 7-31 (Same as: l 03:37: Prinivil, [place] Zestril) Hydralazine No Notes: Mike sujey 7-31 (Same as: l 03:36: Apresoline [place] 00 ) Push over 5 minutes Labetalol No [...] a 7-31 (Same as: l 03:00: Zovirax) MEDICATION WASTE Product Size: 500 mg Product Wasted: _0__ mg normal No 1,000 mL, Memori a saline 0.9% 03-17 Rate: 100 l IV 1,000 mL 02:31: ml/hr, Infuse over: 10 hr, Route: IV, Dosing Weight 110.3 kg, Total Volume: 1,000, Start date: 03/16/15 21:31:00, Duration: 30 day, Stop date: 04/15/15 21:30:00 Valproate No 500 mg, Memor ia Sodium 100 7-31 IV, Q8H, 0 l mg/mL 01:17: Refill(s) [place] intravenous 00 solution haloperidol No 2 mg = 1 Me moria 2 mg oral 7-31 tab, PO, l tablet 01:17: BID, 0 00 Refill(s) Folic Acid No 1 mg = 1 Mem oria 1 MG Oral 7-31 tab, PO, l Tablet 01:17: Daily, # [place] 00 30 tab, 0 Refill(s) pantoprazol Yes 40 mg = 1 M emoria e 40 mg 7-31 tab, PO, l oral 01:17: Daily, # [place] enteric 00 30 tab, 0 coated Refill(s) tablet triazolam No 0.25 mg = Mem oria 0.25 mg 03-17 1 tab, PO, l oral tablet 01:17: Daily, PRN [place] 00 Sleep, 0 Refill(s) NS w/K20 No Special Memori a 03-17 Instructio l 01:17: ns: 70 [place] 00 mls/hr atorvastati No 80 mg = 1 M emoria n 80 mg 03-17 tab, PO, l oral tablet 01:17: Bedtime, # [place] 00 30 tab, 0 Refill(s) topiramate Yes [...] tab, PO, l tablet 01:17: BID, 0 [place] 00 Refill(s) thiothixene No 2 mg = [...] 03-17 PO, PRN, 0 l 01:17: Refill(s) [place] 00 lisinopril No 20 mg = 1 Me moria 20 mg oral 03-17 tab, PO, l tablet 01:17: BID, 0 [place] 00 Refill(s) pregabalin Yes 50 mg = 1 Me moria 50 mg oral 03-17 cap, PO, l capsule 01:17: BID, # 60 Aliza nn 00 cap, 1 Refill(s) cefTRIAXone 2014- No 1 gm, IV, M emoria 1 g 03-17 Q12H, # 10 l injection 01:17: ea, 0 [place] 00 Refill(s) Levofloxaci No 500 mg, Mem oria n 3-17 Route: PO, l 14:00: Drug form: [place] 00 TAB, Daily, Dosing Weight 110.3, kg, [...] l oral tablet 00:43: Daily, # 7 [place] 56 tab, 0 Refill(s) rivaroxaban Yes 20 mg = 1 M emoria 20 MG Oral 3-17 tab, PO, l Tablet 00:43: QPM, # 30 Enrique n [Xarelto] 47 tab, 6 Refill(s) lisinopril Yes 40 mg = 1 Me moria 40 mg oral 3-17 tab, PO, l tablet 00:43: Daily, # [place] 00 30 tab, 0 Refill(s) Bupropion 0 Yes 200 mg, Memor ia Hydrochlori 3-17 PO, BID, # l de 100 MG 00:43: 60 tab, 0 [place] Oral Tablet 00 Refill(s) [Wellbutrin ] topiramate Yes 50 mg = 1 Me moria 50 MG Oral 3-17 tab, PO, l Tablet 00:43: BID, # 120 Aliza nn [Topamax] 00 tab, 0 Refill(s) atorvastati 2015-0 Yes 80 mg = 1 M emoria [...] 3-16 Route: PO, l 22:00: Drug form: [place] 00 TAB, BID, Dosing Weight 110.3, kg, Start date: 10/31/14 17:00:00, Duration: 30 day, Stop date: 11/30/14 9:00:00 Navane 2015-0 No 2 mg, Memoria 3-16 Route: PO, l 22:00: BID, [place] 00 Dosing Weight 110.3, kg, Start date: 10/31/14 17:00:00, Duration: 30 day, Stop date: 11/30/14 9:00:00 Zoloft 2015-0 No 100 mg, Memoria 3-16 Route: PO, l 22:00: Drug form: [place] 00 TAB, BID, Dosing Weight 110.3, kg, Start date: 10/31/14 17:00:00, Duration: 30 day, Stop date: 11/30/14 9:00:00 Xarelto 2015-0 No 20 mg, Memoria 3-16 Route: PO, l 22:00: Drug form: [place] 00 TAB, QPM, Dosing Weight 110.3, kg, [...] date: 11/30/14 16:36:00 Phenergan No 25 mg, Memori a 3-16 Route: PO, l 21:36: Drug form: [place] 00 TAB, Q6H, Dosing Weight 110.3, kg, [...] Not Crush" sennosides, No Notes: Mike sujey LONG-TERM 3-16 (Same as: l 02:00: Senokot) metoprolol [...] moria 3-13 infuse l 23:00: over 2.5 [place] 00 hours Vancomycin FOR IV SET ONLY Vancomycin No 2001 mg: Me moria 3-13 infuse l 22:00: over 2.5 [place] 00 hours Vancomycin FOR IV SET ONLY Ativan No 2 mg, Memoria 3-13 Route: IV, l 18:49: ONCE, [place] Dosing Weight 110.3, kg, Start date: 10/28/14 [...] 3-13 mL, Route: l 09:30: IVPB, Drug [place] 00 form: INJ, ONCE, Start date: 10/28/14 [...] 11:28:00 pantoprazol No Notes: Mike sujey e -12 Same as: l 14:00: Protonix [place] 00 Protonix No Notes: Memoria 3-12 Tablet l 14:00: should not [place] 00 be chewed or crushed. (Same as: Protonix) Propofol 10 No Notes: If M emoria MG/ML 10-27 Diprivan - l Injectable 12:02: change Aliza nn Suspension 00 bottle & tubing every 12 hr Per state nursing law propofol can only be given by a nurse if patient is intubated or being intubated (unless the nurse is a [employer]ATION [employer] CONTROL SPECIALIST). Same as: Diprivan sodium No Notes: Memoria bicarbonate 10-27 (sodium l 75 mEq + 07:02: bicarb [place] Sodium 00 8.4% (1 Chloride mEq/ml) 50 0.45% IV ml VL) 925 mL ketAMINE No Notes: Per Mem oria 500 mg + 10-27 state l Sodium 06:53: nursing [place] Chloride 00 law 0.9% IV 245 ketamine mL can only be given by a nurse if patient is intubated or being intubated (unless the nurse is a STATION [employer] TRAFFIC CONTROL SPECIALIST). Keppra No Notes: Memoria 3-12 Same as: l 02:00: Keppra [place] 00 Vancomycin No 2000 mg: Me moria 12 infuse l 02:00: over 2.5 [place] 00 [...] No Notes: Mike sujey one 100 mg 10-26 (Same as: l injection 23:00: Megan Pierson rmann 00 F) physiologic No Notes: Mike sujey al 3-11 Total l irrigating 22:25: ingredient H ermann solution 00 s in bag Na 140meq/L; K 4meq/L; HCO 35meq/L; Ca 3meq/L; Magnesium 1meq/L; CL 113meq/L; Glucose 100mg/dL; "Break seal Between compartmen ts and mix before hanging" sennosides, No Notes: Mike sujey LONG-TERM 3-11 (Same as: l 22:00: Senokot) [place] Lipitor No Notes: Memoria 3-11 Same as l 22:00: Lipitor [place] Xarelto No Notes: Memoria 3-11 (Same as: l 22:00: Xarelto) [place] Administer with food chlorhexidi No Notes: Mike sujey ne -11 (Same As: l gluconate 22:00: Peridex) Herm [...] Mem oria 10-26 state l 21:49: nursing [place] law ketamine can only be given by a nurse if patient is intubated or being intubated (unless the nurse is a [employer]ATION [employer] CONTROL SPECIALIST). lidocaine No Notes: Memori a 1% 10-26 (Same as: l 21:26: Xylocaine) [place] Ketamine No Notes: Per Mem oria 311 state l 21:00: nursing [place] 00 law ketamine can only be given by a nurse if patient is intubated or being intubated (unless the nurse is a [employer]ATION [employer] TRAFFIC CONTROL SPECIALIST). Calcium No 1,000 mg, Memor ia Chloride 11 10 mL, l 20:40: Route: [place] 00 IVPB, ONCE, Dosing Weight 110.3, kg, Start date: 10/26/14 15:40:00, Stop date: 10/26/14 15:40:00 Iohexol No Special Memoria 3-11 Instructio l 20:24: ns: Dose = [place] 00 2.2ml/kg, Max dose = 100ml -- "To be infused by Radiology Staff ONLY" Ketamine No Notes: Memoria 3-11 Total l 19:23: Concentrat [place] 00 ion = 1mg/ml Total Volume = 100ml Infusion Rate= Begin Infusion at an initial rate of 0.1mg/kg/h r to a Maximum Rate of 0.25mg/kg/ hr Please place a Med Request 2 hours before the next dose is needed. EPINEPHrine No 250 mL, Mem oria 4 mg + 311 Rate: l Sodium 18:54: Titrate, [place] Chloride 00 Dosing 0.9% Weight (titrate) 110.3, kg, 250 mL Route: IV, Total Volume: 254, Start Date: 10/26/14 13:54:00, Duration: 30 day, Stop date: 11/25/14 13:53:00, Replace Every: 24 hr Etomidate No Notes: Memori a -11 (Same as: l 18:54: Amidate). [place] 00 Per state nursing law etomidate can only be given by a nurse if patient is intubated or being intubated (unless the nurse is a [employer]ATION [employer] CONTROL SPECIALIST). sodium No Notes: Memoria bicarbonate 10-26 (sodium l 8.4% 18:53: bicarb [place] 00 8.4% (1 mEq/ml) 50 ml syringe) Succinylcho No Notes: Mike sujey line 11 Same as: l 18:53: Anectine [place] 00 Fentanyl No 1,000 Memoria 3-11 microgram, l 18:52: 20 mL, [place] 00 Rate: Titrate as directed, Dosing Weight [...] Syringe 11 12.5 mL, l 18:38: Route: [place] 00 IVP, Drug Form: INJ, Dosing Weight [...] before hanging" Calcium No 2 gm, 20 Memori a Chloride 3-11 mL, Route: l 18:20: IVPB, PRN, [place] 00 Dosing Weight 110.3, kg, PRN Abnormal Lab Result, Via central line, Start date: 10/26/14 13:20:00, Duration: 30 day, Stop date: 11/25/14 13:19:00 Magnesium No 2 gm, 50 Mike sujey Sulfate 3-11 mL, Route: l 18:20: IVPB, Drug [place] form: INJ, PRN, Dosing Weight 110.3, kg, [...] (sodium l 75 mEq + 17:06: bicarb [place] Sodium 00 8.4% (1 Chloride mEq/ml) 50 0.45% IV ml VL) 925 mL vasopressin No Notes: Mike sujey 80 unit + 3-11 (Same As: l Sodium 15:34: Pitressin) Aliza nn Chloride 00 0.9% (titrate) 246 mL Flagyl No Notes: Memoria 3-11 (Same as: l 15:00: Flagyl) [place] 00 Avoid alcohol. cefepime No Notes: Memoria 3-11 (Same As: l 15:00: Maxipime) [place] 00 Vancomycin No 2001 mg: Me moria 3-11 infuse l 14:08: over 2.5 [place] 00 hours Vancomycin FOR IV SET ONLY PlasmaLyte No 2,000 mL, Me moria A PH-7.4 11 Rate: l 2,000 mL 14:06: 2,000 [place] 00 ml/hr, Infuse over: 1 hr, Route: IV, Dosing Weight 110.3 kg, Total Volume: 2,000, Start date: 10/26/14 9:06:00, Duration: 30 day, Stop date: 11/25/14 9:05:00 Wellbutrin No Notes: Memor ia 3-11 (Same As: l 14:00: Wellbutrin [place] 00 ) Haldol No Notes: Memoria 3-11 (Same as: l 14:00: Haldol) [place] 00 Topamax No Notes: Memoria 3-11 (Same As: l 14:00: Topamax) [place] 00 "Do Not Crush" Saline No Notes: Memoria Flush 0.9% 3-11 (Same as: l 14:00: BD [place] 00 Posiflush) docusate No Notes: Memoria sodium 100 3-11 (Same as: l mg oral 14:00: Colace) [place] capsule 00 pneumococca No Notes: Mike sujey l capsular -11 (Same as: l polysacchar 14:00: Pneumovax H ermann jarad type 1 00 23) vaccine / Refrigerat pneumococca e l capsular polysacchar jarad type 10A vaccine / pneumococca l capsular polysacchar jarad type 11A vaccine / pneumococca l capsular polysacchar jarad type 12F vaccine / pneumococca l capsular polysacchar influenza No Notes: Memori a virus - (Same as: l vaccine, 14:00: Fluzone Enrique [...] Albumin No Notes: Lot Mike sujey Human, LONG-TERM 10-26 #: l 250 MG/ML 12:52: He rmann Injectable 00 ___ Solution Mfg: (Same as: Plasbumin- 25) "blood product derivative " Protonix No Notes: Memoria 10-26 (Same as: l 12:19: Protonix) [place] Albumin No Notes: Memoria Human, LONG-TERM 3-11 LOT#: l 50 MG/ML 10:34: [place] Injectable 00 ___ Solution Mfg: (Same as: Albuminar) "blood product derivative " Versed No Notes: Memoria 10-26 (Same as: l 09:00: Versed) [place] 00 magnesium No 2 gm, 50 Mike sujey sulfate 3-11 mL, Route: l 07:00: IVPB, Drug [place] form: INJ, Q2H, Start date: 10/26/14 2:00:00, Duration: 2 doses or times, Stop date: 10/26/14 4:00:00 Iohexol 2014-0 No Special Memoria 10-26 Instructio l 05:56: ns: Dose = [place] 00 2.2ml/kg, Max dose = 100ml -- [...] 10-26 Route: l 05:14: IVP, Drug [place] 00 form: INJ, Q6H, Dosing Weight 110.3, kg, Priority: NOW, Start date: 10/26/14 0:14:00, Duration: 30 day, Stop date: 11/25/14 0:00:00 NS 1,000 mL No 1,000 mL, M emoria 10-26 Rate: 150 l 05:01: ml/hr, [place] Infuse over: 6.7 hr, Route: IV, Dosing Weight 110.3 kg, Total Volume: 1,000, Start date: 10/26/14 0:01:00, Duration: 30 day, Stop date: 11/25/14 0:00:00 Sodium 2014-0 No 1,000 mL, Memori a Chloride 3-11 1,000 l 0.154 04:54: ml/hr, [place] MEQ/ML 00 Infuse Injectable Over: 1 Solution [...] tab, PO, l Tablet 03:29: QPM, 0 [place] [Xarelto] 00 Refill(s) Esomeprazol No = 1 tab, Me moria e 40 MG 3-11 PO, Daily, l Enteric 03:29: 0 [place] Coated 00 Refill(s) Capsule [Nexium] 120 ACTUAT [...] Chloride -11 1,000 l 0.154 02:35: ml/hr, [place] MEQ/ML 00 Infuse Injectable Over: 1 Solution hr, Route: IV, 1,000, Drug form: INJ, ONCE, Priority: STAT, Dosing Weight 96.364 kg, Start date: 10/25/14 21:35:00, Duration: 1 doses or times, Stop date: 10/25/14 21:35:00 Saline No Notes: Memoria Flush 0.9% -11 (Same as: l 02:33: BD [place] 00 Posiflush) Ondansetron No Notes: Mike sujey -11 (Same as: l 02:33: Zofran) [place] 00 NS 1,000 mL No 1,000 mL, M emoria 3-11 Rate: 100 l 02:30: ml/hr, [place] 00 Infuse over: 10 hr, Route: IV, [...] ____Date Dextrose 2014-0 No 25 gm, 50 Mike sujey 50% Syringe 3-11 mL, Route: l 02:28: IVP, Drug [place] 00 Form: INJ, Dosing Weight 96.364, kg, PRN, PRN Abnormal Lab Result, Start date: 10/25/14 21:28:00, Duration: 30 day, Stop date: 11/24/14 21:27:00 Coumadin 2013-0 No 2 mg, 1 Memori a 3-30 tab, l 22:00: Route: PO, [place] 00 Drug form: TAB, Q5PM, Start date: 11/14/13 17:00:00, Duration: 1 doses or times, Stop date: 11/14/13 17:00:00Nu rse to ensure documentat ion of patient education per anticoagul ation policy. Avoid large intake of vitamin-K containing foods diet. (Same As: Coumadin) Warfarin 2013-0 No 5 mg, 1 Memori a 3-30 tab, l 22:00: Route: PO, [place] Drug form: TAB, Q5PM, Dosing Weight 96.364, kg, Start date: 11/14/13 17:00:00, Duration: 1 doses or times, Stop date: 11/14/13 17:00:00Nu rse to ensure documentat ion of patient education per anticoagul ation policy. Avoid large intake of vitamin-K containing foods diet. (Same As: Coumadin) Levetiracet 2013-0 Yes 500 mg = 1 Memoria am 500 MG 3-30 tab, PO, l Oral Tablet 19:41: Q12H, # 60 [place] [Keppra] 00 tab, 0 Refill(s) Levetiracet 2013-0 No 500 mg, 1 M emoria am 500 MG 3-30 tab, l Oral Tablet 18:00: Route: PO, [place] [Keppra] 00 Drug form: TAB, Q12H, Dosing Weight 96.364, kg, Start date: 11/14/13 13:00:00, Duration: 30 day, Stop date: 12/14/13 9:00:00(Sa me as:Keppra) pneumococca 2013- No 0.5 ml, Mem oria l capsular 3-30 Route: IM, l polysacchar 14:00: Drug Form: [place] jarad type 1 00 INJ, vaccine / [...] ia 3-30 cap, l 03:09: Route: PO, Drug form: CAP, Bedtime, Dosing Weight 96.364, kg, PRN Insomnia, Start date: 11/13/13 22:09:00, Duration: 1 day, Stop date: 11/14/13 22:08:00(S pinky as: Benadryl) atorvastati No 80 mg, 2 Me moria n 3-30 tab, l 02:00: Route: PO, Drug form: TAB, Bedtime, Dosing Weight 96.364, [...] ensure documentat ion of patient education per [facility] policy. Avoid large intake of vitamin-K containing foods diet. (Same As: Coumadin) Ativan No 0.5 mg, 1 Memori a 3-29 tab, l 21:00: Route: PO, Drug form: TAB, ONCE, Dosing Weight 96.364, kg, Start date: 11/13/13 16:00:00, Stop date: 11/13/13 16:00:00(S pinky as: Ativan) Ativan No 0.5 mg, 1 Memori a 3-29 tab, l 20:08: Route: PO, Hackberry 00 Drug form: TAB, ONCE, Dosing Weight [...] 3-29 tab, PO, l tablet 17:03: Daily Hackberry 00 verapamil Yes 300 mg = 1 Me moria 300 mg/24 3-29 cap, PO, l hours oral 17:03: Daily Enriuqe n capsule, 00 extended release Saline No 5 ml, Memoria Flush 0.9% 11-13 Route: l 14:00: IVP, Drug Hackberry 00 Form: INJ, Dosing Weight 96.364, kg, Q12H, Start date: 11/13/13 9:00:00, Duration: 30 day, Stop date: 12/12/13 21:00:00(S pinky as: BD Posiflush) Aspirin 325 No 325 mg, 1 M emoria MG Enteric - tab, l Coated 14:00: Route: PO, Aliza [...] date: 12/13/13 7:05:00(Sa me as: Versed) Iohexol No 85 mL, Memoria [...] Route: l 11:00: SUB-Q, Drug form: INJ, [id number], Dosing Weight 96.364, kg, Start date: 11/13/13 [...] en 11-13 tab, l 10:15: Route: PO, Cabrera 00 Drug form: TAB, Q4H, Dosing Weight 96.364, [...] PO, l tablet 18:40: Brown BID, 60 [place] 28 tab, Substituti on Allowed, TAB haloperidol 2012-0 Yes Anna Marie 2 mg, 1 Memoria 2 mg oral 9-25 Janey tab, PO, l tablet 18:40: Brown BID, 60 [place] 12 tab, Substituti on Allowed Wellbutrin 2012- Yes Anna Marie 100 mg, 1 Memoria 100 mg oral 9-25 Janey tab, PO, l tablet 18:39: Brown BID, 60 [place] 54 tab, Substituti on Allowed, TAB Levaquin [...] Daily, 30 l oral 22:16: Brown cap, [place] capsule 28 Substituti on Allowed, Maintenanc e, [...] Amado 100 mL, l 23:00: Bubis Route: [place] 00 IVPB, Drug form: INJ, [id number], Dosing Weight 98.182, kg, Start date: 05/10/13 18:00:00, Duration: 30 day, Stop date: 06/09/13 10:00:00 azithromyci No Lyndon 500 mg, Memoria n + Sodium 05-10 Amado Route: l Chloride 23:00: Bubis IVPB, [place] 0.9% IV 250 00 [id number], mL Dosing Weight 98.182, kg, Start date: [...] Route: PO, Cabrera 00 Drug form: TAB, [id number], Dosing Weight 98.182, kg, Start date: 05/10/13 8:00:00, Duration: 4 doses or times, Stop date: 05/13/13 8:00:00 Versed 2012- No Hannah 1 mg, 1 Memoria 05-10 Dom mL, Route: l 12:41: Tom IV, Drug [place] 00 form: INJ, ONCE, Dosing Weight 98.182, [...] Gilderslee tab, l 02:00: ve Route: PO, [place] 00 Drug form: TAB, Bedtime, Dosing Weight 113.636, kg, Start date: 05/09/13 21:00:00, Duration: 30 day, Stop date: 06/07/13 21:00:00 Mag-Ox 400 No Kamal 400 mg, 1 M emoria 05-10 Zi tab, l 00:00: Angeline Route: PO, [place] 00 Drug form: TAB, On Adm, Start date: 05/09/13 19:00:00, Duration: 1 doses or times, Stop date: 05/09/13 21:00:00 magnesium 2012-0 No Kamal 500 mg, Mike sujey oxide base 05-09 Zi Route: PO, l 500 mg oral 23:08: Angeline Drug form: [place] tablet 00 TAB, ONCE, Dosing Weight 98.182, kg, Start date: 05/09/13 18:08:00, Stop date: 05/09/13 18:08:00 thiamine 2012-0 No Brittany 100 mg, 1 M emoria 05-09 Carmen tab, l 14:00: Zwiener Route: PO, Herm tin 00 Drug form: TAB, Daily, Dosing Weight 98.182, kg, Start date: 05/09/13 9:00:00, Duration: 30 day, Stop date: 06/07/13 9:00:00 folic acid 2012- No Brittany 1 mg, 1 M emoria [...] IVPB, Drug Enrique n 00 form: PDR/INJ, [id number], Dosing Weight 98.182, kg, Start date: 05/09/13 [...] 05-09 Carmen Rate: l 12:37: Zwiener 1,000 [place] 00 ml/hr, Infuse over: 1 hr, Route: [...] Amado Rate: 150 l 03:31: Bubis ml/hr, [place] 00 Infuse over: 6.7 hr, Route: IV, [...] l 02:00: Read IVP, Drug Aliza nn 00 Brice Form: INJ, Dosing Weight 113.636, kg, Q12H, Start date: 05/08/13 21:00:00, Duration: 30 day, Stop date: 06/07/13 9:00:00 docusate No Linsey 100 mg, 1 Memoria 05-09 Vanessa cap, l 02:00: Read Route: PO, Herm tin Brice Drug form: CAP, Q12H, Dosing Weight 113.636, kg, Start date: 05/08/13 21:00:00, Duration: 30 day, Stop date: 06/07/13 9:00:00 Saline 2012- No Linsey 5 ml, Memori [...] 325 mg, 1 Memoria mg tablet 2-04 Esclaante tab, PO, l 19:05: Daily, 30 [place] 08 tab, Substituti on Allowed, TAB verapamil 2011-08 No Anita Marcelino 40 mg, 1 Memoria 40 mg oral 2-04 Escalante tab, PO, l tablet 19:03: TID, 90 [place] 44 tab, Substituti on Allowed, TAB caffeine 2011-08 No Anita Marcelino 100 mg, 1 Memoria 100 mg oral 2-04 Escalante tab, PO, l tablet 19:03: Q3H, 12 [place] 29 tab, Substituti on Allowed, TAB caffeine 2011-08 No Naomi Viki 250 mg, Memoria 2-04 Quang Route: l 18:15: IVPB, [place] 00 ONCE, Dosing Weight 113.636, kg, Start date: 07/21/12 12:15:00, Stop date: 07/21/12 12:15:00 influenza 2011-08 No SYSTEM 0.5 ml, Mem oria virus 04 SYSTEM Route: IM, l vaccine, 18:08: Drug [...] tab, PO, l tablet 14:30: QPM, 30 [place] 06 tab, 3, 3, Substituti on Allowed, [...] Castellanos mL, Route: l 17:00: Chahil SUB-Q, [place] Drug form: INJ, Q24H, Dosing Weight 113.636, kg, Start date: 07/19/12 11:00:00, Duration: 30 day, Stop date: 08/17/12 11:00:00 hydromorpho 2011-08 No Dvaid Velez 1 mg, 0.5 Memoria ne 09-19 Spicer mL, Route: l 16:49: IVP, Drug [place]rera form: INJ, ONCE, Dosing Weight 113.636, kg, Priority: STAT, Start date: 07/19/12 10:49:00, Stop date: 07/19/12 10:49:00 Plavix 2011-08 No Anita Marcelino 75 mg, 1 Mem oria 2-02 Escalante tab, l 16:17: Route: PO, [place] 00 Drug form: TAB, Daily, Dosing Weight [...] 2011-08 Yes Baudilio 300 mg, M emoria 2- Castellanos PO, Daily, l 13:02: Chahil Substituti Aliza nn 38 on Allowed Zoloft 2011-08 Yes Baudilio 100 mg, Memor ia 2- Castellanos PO, Daily, l 13:02: Chahil Substituti Aliza nn 34 on Allowed clonidine 2011-08 Yes Baudilio 0.3 mg, Me moria 2- Castellanos PO, TID, l 13:01: Chahil Substituti [...] 6:56:00 Wellbutrin Wellbutrin Yes James 1 tablet Common Burton [facility] Aspir-81 Aspir-81 Yes James 1 tablet C ommon [facility] Potassium Potassium Yes James 1 capsule Common Chloride Chloride [facility] Lipitor Lipitor Yes James 1 tablet Com mon [facility] Ambien Ambien Yes James 1 tablet Commo n Burton at bedtime Spirit as needed - [facility] Symbicort Symbicort Yes James 2 puffs Common [facility] Lasix Lasix Yes James 0.5 tablet Commo n [facility] Promethazin Promethazin Yes James TAKE ONE Common e HCl e HCl Burton TABLET BY Spirit MOUTH - [facility] EVERY [address] [facility] NEED[facility] FOR Medical NAUSEA AND Center VOMITING Zoloft Zoloft Yes James 1 tablet Commo n Burton [facility] Abilify Abilify Yes James 1 tablet Com mon Burton [facility] Metoprolol Metoprolol Yes James 1 tablet Common Tartrate Tartrate Burton with food S pirit [facility] Eliquis Eliquis Yes James as Common Burton directed [facility] Clopidogrel Clopidogrel Yes James 1 tablet Common Bisulfate Bisulfate Burton Spir it [facility] Promethazin Promethazin Yes James TAKE ONE Common e HCl e HCl Burton TABLET BY [facility] EVERY [address] [facility] NEED[facility] FOR Medical NAUSEA AND Center VOMITING Immunizations Ordered Filled Immunization Date Status Comments Sourc e Immunization Name Name Influenza Virus 2020-07-12 Completed Universit [facility] of Vaccine Recomb Quad 00:00:00 [facility] , Preserv and ABX Branc h Free 18-64 YRS Influenza Virus 2020-07-12 Completed Universit y of Vaccine Recomb Quad 00:00:00 [facility], Preserv and ABX Branc h Free 18-64 YRS Influenza Virus 2019-10-18 Completed Universit y of Vaccine Quad .5 mL 00:00:00 [facility] 6+ MO Branch Influenza Virus 2019-10-18 Completed Universit y of Vaccine Quad .5 mL 00:00:00 [facility] 6+ MO Branch Pneumococcal 2018-12-10 Completed University o f Polysaccharide, 00:00:00 [facility] PPSV23 (PNEUMOVAX) Branch Influenza Virus 2018-12-10 Completed Universit y of Vaccine Quad .5 mL 00:00:00 [facility] 6+ MO Branch Pneumococcal 2018-12-10 Completed University o f Polysaccharide, 00:00:00 [facility] PPSV23 (PNEUMOVAX) Branch Influenza Virus 2018-12-10 Completed Universit y of Vaccine Quad .5 mL 00:00:00 [facility] 6+ MO Branch influenza virus 2014-10-28 Completed [facility] [place] vaccine, 17:00:00 inactivated pneumococcal 2013-11-14 Completed [facility] york 23-valent vaccine 19:53:00 influenza virus 2012-07-21 Completed [facility] [place] vaccine, 19:37:00 inactivated influenza virus 2012-07-21 [facility] 19:[facility]00 inactivated Vital Signs Vital Name Observation Time Observation Value Comments Source Systolic blood 2021-12-22 16:19:00 117 mm[Hg] Univer sity of pressure [facility] Diastolic blood 2021-12-22 16:19:00 74 mm[Hg] Unive rsity of [facility] Heart rate 2021-12-22 16:19:00 79 /min [facility] Body temperature 2021-12-22 16:19:00 36.44 Vandana Univ ersity of [facility] Respiratory rate 2021-12-22 16:19:00 16 /min [facility] Oxygen saturation in 2021-12-22 16:19:00 95 /min University of Arterial blood by [facility] Pulse oximetry Branch Body weight 2021-12-22 08:31:00 90.493 kg [facility] BMI 2021-12-22 08:31:00 35.34 kg/m2 Universi ty [facility] Body height 2021-12-21 07:08:00 160 cm Universi ty [facility] Systolic blood 2021-12-14 18:44:00 133 mm[Hg] . Univer sity of [facility] Diastolic blood 2021-12-14 18:44:00 96 mm[Hg] . Unive rsity of [facility] Heart rate 2021-12-14 18:44:00 115 /min Universi ty [facility] Respiratory rate 2021-12-14 18:44:00 22 /min [facility] ersity [facility] Body height 2021-12-14 18:44:00 157.5 cm Universi ty [facility] Body weight 2021-12-14 18:44:00 84.823 kg Universi ty [facility] BMI 2021-12-14 18:44:00 34.20 kg/m2 Universi ty [facility] Oxygen saturation in 2021-12-14 18:44:00 95 /min University of Arterial blood by [facility] Pulse oximetry Branch Systolic (mm Hg) 2019-03-13 01:15:00 Mike Rees Diastolic (mm Hg) 2019-03-13 01:15:00 Mem orial [place] Temperature Oral (F) 2019-03-13 01:15:00 97.0 F [facility] [place] Respitory Rate 2019-03-13 01:15:00 Memori al [place] Heart Rate 2019-03-12 22:53:00 [facility] [place] Respitory Rate 2019-03-12 22:07:00 Memori al [place] Systolic (mm Hg) 2019-03-12 22:07:00 Mike rial [place] Diastolic (mm Hg) 2019-03-12 22:07:00 Mem orial [place] Heart Rate 2019-03-12 22:07:00 [facility] [place] Systolic (mm Hg) 2019-03-12 20:52:00 Mike rial [place] Diastolic (mm Hg) 2019-03-12 20:52:00 Mem orial [place] Temperature Oral (F) 2019-03-12 20:52:00 97.3 F [facility] [place] Respitory Rate 2019-03-12 20:52:00 Memori al [place] Heart Rate 2019-03-12 20:52:00 [facility] [place] Temperature Oral (F) 2019-03-12 16:26:00 97.3 F [facility] [place] Weight 2019-03-10 08:42:00 [facility] [place] Weight 2019-03-10 08:31:00 [facility] [place] Height 2019-03-10 08:31:00 160.02 cm [facility] [place] BMI Calculated 2019-03-10 08:31:00 Memori al [place] Weight 2019-03-09 20:31:00 [facility] [place] BMI Calculated 2019-03-09 20:31:00 Memori al [place] Height 2019-03-09 20:31:00 172.72 cm [facility] [place] Temperature Oral (F) 2015-03-22 21:22:00 97.5 F [facility] Heart Rate 2015-03-22 21:22:00 [facility] [place] Respitory Rate 2015-03-22 21:22:00 Memori al [place] Systolic (mm Hg) 2015-03-22 21:22:00 Mike rial [place] Diastolic (mm Hg) 2015-03-22 21:22:00 Mem orial [place] Heart Rate 2015-03-22 17:00:00 [facility] [place] Respitory Rate 2015-03-22 17:00:00 Memori al [place] Temperature Oral (F) 2015-03-22 17:00:00 97.4 F [facility] [place] Systolic (mm Hg) 2015-03-22 17:00:00 Mike rial [place] Diastolic (mm Hg) 2015-03-22 17:00:00 Mem orial [place] Systolic (mm Hg) 2015-03-22 14:14:00 Mike rial [place] Diastolic (mm Hg) 2015-03-22 14:14:00 Mem orial [place] Heart Rate 2015-03-22 14:14:00 [facility] [place] Temperature Oral (F) 2015-03-22 14:14:00 97.8 F [facility] Respitory Rate 2015-03-22 14:14:00 Memori al [place] Weight 2015-03-17 00:52:00 [facility] [place] Height 2015-03-17 00:52:00 160.02 cm [facility] BMI Calculated 2015-03-17 00:52:00 Memori al [place] Temperature Oral (F) 2014-11-01 00:46:00 98.1 F [facility] [place] Heart Rate 2014-11-01 00:46:00 [facility] [place] Respitory Rate 2014-11-01 00:46:00 Memori al [place] Systolic (mm Hg) 2014-11-01 00:46:00 Mike rial [place] Diastolic (mm Hg) 2014-11-01 00:46:00 Mem orial [place] Temperature Oral (F) 2014-10-31 21:18:00 98.6 F [facility] Heart Rate 2014-10-31 21:18:00 [facility] [place] Respitory Rate 2014-10-31 21:18:00 Memori al [place] Systolic (mm Hg) 2014-10-31 21:18:00 Mike rial [place]rera Diastolic (mm Hg) 2014-10-31 21:18:00 Mem orial [place] Temperature Oral (F) 2014-10-31 15:55:00 98.2 F [facility] [place] Respitory Rate 2014-10-31 15:55:00 Memori al [place] Systolic (mm Hg) 2014-10-31 15:55:00 Mike rial [place] Diastolic (mm Hg) 2014-10-31 15:55:00 Mem orial [place] Heart Rate 2014-10-31 15:55:00 [facility] [place] Weight 2014-10-26 02:54:00 [facility] BMI Calculated 2014-10-26 02:54:00 Memori al [place] Height 2014-10-26 02:54:00 160.02 cm [facility] Diastolic (mm Hg) 2013-11-14 19:30:00 Mem orial [place] Heart Rate 2013-11-14 19:30:00 [facility] [place] Systolic (mm Hg) 2013-11-14 19:30:00 Mike rial [place] Respitory Rate 2013-11-14 19:30:00 Memori al [place] Temperature Oral (F) 2013-11-14 19:30:00 98.3 F [facility] [place] Heart Rate 2013-11-14 17:18:00 [facility] [place] Respitory Rate 2013-11-14 17:18:00 Memori al [place] Temperature Oral (F) 2013-11-14 17:18:00 98.0 F [facility] [place] Systolic (mm Hg) 2013-11-14 17:18:00 Mike rial [place]rera Diastolic (mm Hg) 2013-11-14 17:18:00 Mem orial [place] Diastolic (mm Hg) 2013-11-14 16:00:00 Mem orial [place] Systolic (mm Hg) 2013-11-14 16:00:00 Mike rial [place] Temperature Oral (F) 2013-11-14 15:04:00 97.4 F [facility] Respitory Rate 2013-11-14 07:00:00 Memori al [place] Height 2013-11-13 11:04:00 162.56 cm [facility] [place] Weight 2013-11-13 11:04:00 [facility] [place] BMI Calculated 2013-11-13 11:04:00 Memori al [place] BMI Calculated 2013-11-13 08:43:00 Memori al [place] Height 2013-11-13 08:43:00 160.02 cm [facility] [place] Weight 2013-11-13 08:43:00 [facility] Heart Rate 2013-11-13 08:43:00 [facility] [place] Heart Rate 2013-05-12 16:17:00 [facility] Diastolic (mm Hg) 2013-05-12 16:17:00 Mem orial [place] Systolic (mm Hg) 2013-05-12 16:17:00 Mike rial [place] Respitory Rate 2013-05-12 15:30:00 Memori al [place] Diastolic (mm Hg) 2013-05-12 12:53:00 Mem orial [place] Systolic (mm Hg) 2013-05-12 12:53:00 Mike rial [place] Respitory Rate 2013-05-12 12:53:00 Memori al [place] Heart Rate 2013-05-12 12:53:00 [facility] [place] Temperature Oral (F) 2013-05-12 12:53:00 99.1 F [facility] Diastolic (mm Hg) 2013-05-12 08:31:00 Mem orial [place] Systolic (mm Hg) 2013-05-12 08:31:00 Mike rial [place] Respitory Rate 2013-05-12 08:31:00 Memori al [place] Heart Rate 2013-05-12 08:31:00 [facility] [place] Temperature Oral (F) 2013-05-12 08:31:00 99.8 F [facility] [place] Temperature Oral (F) 2013-05-12 04:50:00 99.8 F [facility] Height 2013-05-09 03:31:00 160.02 cm [facility] Weight 2013-05-09 03:31:00 [facility] [place] Respitory Rate 2012-07-22 01:09:00 Memori al [place] Systolic (mm Hg) 2012-07-22 01:09:00 Mike rial [place] Diastolic (mm Hg) 2012-07-22 01:09:00 Mem orial [place] Temperature Oral (F) 2012-07-22 01:09:00 98.6 F [facility] Heart Rate 2012-07-22 01:09:00 [facility] Diastolic (mm Hg) 2012-07-21 21:10:00 Mem orial [place] Systolic (mm Hg) 2012-07-21 21:10:00 Mike rial [place] Temperature Oral (F) 2012-07-21 21:10:00 97.2 F [facility] [place] Heart Rate 2012-07-21 21:10:00 [facility] [place] Respitory Rate 2012-07-21 21:10:00 Memori al [place] Temperature Oral (F) 2012-07-21 18:26:00 98.5 F [facility] [place] Heart Rate 2012-07-21 18:26:00 [facility] [place] Respitory Rate 2012-07-21 18:26:00 Memori al [place] Diastolic (mm Hg) 2012-07-21 18:26:00 Mem orial [place] Systolic (mm Hg) 2012-07-21 18:26:00 Mike rial [place] Weight 2012-07-19 12:37:00 [facility] [place] Height 2012-07-19 12:37:00 160.02 cm [facility] Procedures Procedure Date / Time Performing Clinician Source Performed PHOSPHORUS 2021-12-22 13:07:00 Constance Diego [facility] CREATINE KINASE 2021-12-22 13:07:00 Constance Diego [facility] MAGNESIUM 2021-12-22 13:07:00 Shankar bessie [facility] TROPONIN I 2021-12-22 13:07:00 Shankar bessie [facility] COMP. METABOLIC PANEL 2021-12-22 13:07:00 Constance Diego [facility] ([id number]) [facility] N-TERMINAL PRO-BNP 2021-12-22 13:07:00 Constance Diego [facility] CBC WITH DIFF 2021-12-22 12:21:00 Shankar bessie [facility] PROTHROMBIN TIME / INR 2021-12-22 09:47:00 Constance Diego [facility] PROTHROMBIN TIME / INR 2021-12-21 19:53:00 Calos Vogel [facility] AMMONIA, PLASMA 2021-12-21 13:48:00 Shankar bessie [facility] URINE CULTURE 2021-12-21 13:45:00 Shankar bessie [facility] URINALYSIS 2021-12-21 13:44:00 Shankar bessie [facility] UREA NITROGEN, URINE 2021-12-21 13:44:00 Constance Diego [facility] PHOSPHORUS 2021-12-21 11:48:00 Shankar bessie [facility] CREATINE KINASE 2021-12-21 11:48:00 Shankar bessie [facility] C-REACTIVE PROTEIN 2021-12-21 10:29:00 Constance Diego [facility] ACUTE CARE VENOUS BLOOD 2021-12-21 10:29:00 Constance Diego [facility] SEDIMENTATION RATE 2021-12-21 10:29:00 Constance Diego [facility] VITAMIN B12, LEVEL 2021-12-21 10:24:00 Shankar bessie [facility] HEPATITIS B SURFACE 2021-12-21 10:24:00 Constance Diego [facility] ANTIBODY [facility] HEPATITIS B SURFACE 2021-12-21 10:24:00 Shankar bessie [facility] ANTIGEN [facility] HCV ANTIBODY 2021-12-21 10:24:00 Shankar bessie [facility] KEPPRA (LEVETIRACETAM) 2021-12-21 10:24:00 Constance Diego [facility] HAV ANTIBODY (IGG AND IGM) 2021-12-21 10:24:[address] [facility] VITAMIN D, 25-OH 2021-12-21 10:24:00 Shankar [facility] PROCALCITONIN 2021-12-21 10:24:00 Shankar [facility] URINE DRUG (IMMUNOASSAY) - 2021-12-21 05:52:00 Max Rosa [facility] COMPREHENSIVE DRUG SCREEN [facility] SODIUM, URINE RANDOM 2021-12-21 05:52:00 Constance Diego [facility] PROTEIN CREAT RATIO URINE 2021-12-21 05:52:[address] [facility] CT ABDOMEN PELVIS W 2021-12-21 05:13:00 Max Rosa [facility] CONTRAST [facility] EKG-12 LEAD 2021-12-21 03:44:19 Max Rosa [facility] LIPASE 2021-12-21 03:42:00 Max Rosa [facility] MAGNESIUM 2021-12-21 03:42:00 Max Rosa [facility] FERRITIN SERUM 2021-12-21 03:42:00 Constance Diego [facility] TROPONIN I 2021-12-21 03:42:00 Max Rosa [facility] THYROID STIMULATING 2021-12-21 03:42:00 Constance Diego [facility] HORMONE Medical Branch COMP. METABOLIC PANEL 2021-12-21 03:42:00 Max Rosa [facility] ([id number]) [facility] LIPID PANEL ([id number])(TOTAL 2021-12-21 03:42:00 Constance Diego [facility] CHOLESTEROL, [facility] TRIGLYCERIDES, HDL) IRON PANEL 2021-12-21 03:42:00 Shankar bessie [facility] ACETAMINOPHEN 2021-12-21 03:42:00 Max Rosa [facility] CBC WITH DIFF 2021-12-21 03:42:00 Max Rosa [facility] GLYCOSYLATED HEMOGLOBIN 2021-12-21 03:42:00 Shankar [facility] (A1C) [facility] PROTHROMBIN TIME / INR 2021-12-21 03:42:00 Max Rosa [facility] ACTIVATED PARTIAL THRMPLAS 2021-12-21 03:42:00 Max Rosa [facility] ERICKA [facility] N-TERMINAL PRO-BNP 2021-12-21 03:42:00 Max Rosa [facility] XR CHEST 1 VW 2021-12-21 02:49:00 Max Rosa [facility] HB ECG ROUTINE & RHYTHM 2021-12-21 02:44:06 Max Rosa [facility] STRIP [facility] CONSENT/REFUSAL FOR 2021-12-21 02:28:50 Doctor Unassigned, [facility] DIAGNOSIS AND TREATMENT [facility] Spinal puncture, 2015-03-17 20:30:27 [facility] therapeutic, for drainage of cerebrospinal fluid (by needle or catheter) Appendectomy [facility] [place] Cholecystectomy [facility] [place] Ankle fusion<sup>1</sup> Memoria l [facility] [place] Fixation of fracture using Memor ial Cabrera plate Hysterectomy [facility] Encounters Start End Encounter Admission Attending Care Care Encounter Source Date/Time Date/Time Type Type Clinicians Facility Department ID 2021-09-[address] [facility] [id number] Common 11:21:00 [facility] [id number] [facility] 2021-09-12 Outpatient Burton, STJONATHANLC [facility] [id number] Common 11:06:48 James [id number] [facility] 2021-09-12 Outpatient Burton, STVINAYAK [facility] [id number] Common 11:06:24 James [id number] [facility] 2021-09-12 Outpatient Burton, STCHRISTIAN [facility] [id number] Common 11:06:12 [facility] [address] [facility] 2021-08-09 Outpatient YAA HENDERSON [facility] [id number] [place] 01:04:30 Health 2021-07-18 Outpatient [facility] [id number] [place] 14:59:49 [facility] 2021-06-27 Outpatient YAA HENDERSON [facility] [id number] [place] 14:17:41 [facility] 2022-02-12 2022-02-12 Outpatient GAIL GUARDADO [facility] [id number] Univers 13:30:00 13:30:00 GAIL SOTO [id number] [facility] 2022-01-01 2022-01-01 Outpatient Silvia LLANES [facility] [id number] Univers 14:30:00 14:30:00 SOFYA [id number] [facility] 2022-01-01 2022-01-01 Outpatient Silvia LLANES [facility] [id number] Univers 14:30:00 14:30:00 SOFYA [facility] 2021-12-20 2021-12-22 Outpatient X SHANKAR [facility] [id number] Univers 21:33:00 16:00:00 CONSTANCE [facility] 2021-12-20 2021-12-22 Emergency Max Rosa [facility] [id number] Univers 21:33:00 16:00:00 Constance Diego [id number] [facility] [id number] [facility] [id number] [place] [address] Branch 2021-12-14 2021-12-14 Office Floyd [facility] [id number] Univers 13:30:00 14:41:33 Visit Ludwig HURTADO [id number] marcie [facility] [id number] dical [address] 2021-12-14 2021-12-14 Outpatient R FLOYD, [facility] [id number] [facility] 13:30:00 14:41:33 SENDIL marcie [facility] 2021-03-26 2021-03-26 Orders Doctor ROSEMARY [id number] 00:00:00 00:00:00 Only Unassigned, OSITO [id number] [facility] [id number] 2021-03-14 2021-03-14 Office Floyd [facility] [id number] 13:32:33 14:03:23 Visit Ludwig Hurtado [id number] [place] [id number] Itzelio [id number] [address] 2020-03-28 2020-03-28 Out[facility] [id number] Common 16:00:00 16:00:00 [place] [address] [facility] 2020-02-21 2020-02-21 Out[facility] [id number] Common 15:00:00 15:00:[address] [facility] 2020-02-16 2020-02-16 Out[facility] [id number] Common 07:13:00 07:13:[address] [facility] 2020-02-15 2020-02-15 Out[facility] [id number] Common 14:22:00 14:22:[address] [facility] 2020-01-12 2020-01-12 Out[facility] [id number] Common 16:30:00 16:30:00 t [facility] [address] [facility] 2019-12-27 2019-12-27 [id number] Common 14:45:00 14:45:[address] [employer] [address] [facility] 2019-09-27 2019-09-27 [facility] [id number] Common 15:00:00 15:00:[address] [employer] [address] [facility] 2019-03-09 2019-03-13 Inpatient [facility] [id number] Memoria 20:30:52 02:00:00 r [place] 00 [facility] 2019-03-09 2019-03-09 Inpatient E [facility] 7500 [facility] 18:36:00 15:30:00 2015-03-16 2015-03-23 Inpatient [facility] [id number] Memoria 23:33:00 01:09:00 silvia [place] 11 [facility] 2014-10-26 2014-11-01 Inpatient [place] [id number] Memoria 01:37:00 01:05:00 r [place] 69 [facility] 2013-11-13 2013-11-14 Inpatient [facility] [id number] Memoria 08:43:00 23:45:00 r [place] [id number] [address] 2013-05-08 2013-05-12 [facility] [id number] Memoria 16:15:00 14:00:00 [facility] 64 [facility] 2012-07-19 2012-07-21 Inpatient [facility] [address] [id number] Memoria 10:05:00 21:30:00 [facility] 37 [facility] Results Test Description Test Time Test Comments Results Result Comments Source TROPONIN I 2021-12-22 13:43:33 Test Item Value Reference Range Interpretation Comme nts TROPONIN I (test code = 0.008 ng/mL See_Comment [Au tomated message] The [id number]) system which ge nerated this result tra nsmitted reference range : <=0.034. The reference r darryn was not used to int erpret this result as normal/abnormal . ASHELY (test code = ASHELY) Reference (Normal) Range (defined by the 99th percentile reference limit): <= 0.034 ng/mL Note: Cardiac troponin begins to rise 3-4 hours after the onset of ischemia. Repeat in 4-6 hours if the sample was drawn within 3-4 hours of the onset of the symptom and found normal. Diagnosis of myocardial injury is made with acute changes in cTn concentrations with at least one serial sample above the 99th percentile upper reference limit (URL), taken together with the patient's clinical presentation. Biotin has been reported to cause a negative bias, interpret results relative to patient's use of biotin. Lab Interpretation Normal (test code = 24312-7) [id number] 13:40:32 Test Item Value Reference Range Interpretation Comments NT-proBNP (test code 717 pg/mL See_Comment H [Autom ated = 7235177929) message] The system which generated this result transmitted reference range : <=125. The reference range was not used to interpret this result as normal/abnormal . ASHELY (test code = ASHELY) Biotin has been reported to cause a negative bias, interpret results relative to patient's use of biotin. Lab Interpretation Abnormal (test code = 07072-0) [facility] MET[facility]OLIC PANEL ([id number])2021-12-22 13:31:56 Test Item Value Reference Range Interpretation Comments NA (test code = 137 mmol/L 135-145 3745224200) K (test code = 3.8 mmol/L 3.5-5.0 7849053000) CL (test code = 97 mmol/L 98-108 L 3205768848) CO2 TOTAL (test code = 31 mmol/L 23-31 5520860586) AGAP (test code = 2-16 5290158482) BUN (test code = 16 mg/dL 7-23 0418918936) GLUCOSE (test code = 98 mg/dL 70-110 0530012400) CREATININE (test code = 0.65 mg/dL 0.50-1.04 2000288072) TOTAL BILI (test code = 0.6 mg/dL 0.1-1.5 8411279459) CALCIUM (test code = 8.8 mg/dL 8.6-10.6 4313795862) T PROTEIN (test code = 7.1 g/dL 6.3-8.2 6304491181) ALBUMIN (test code = 4.0 g/dL 3.5-5.0 2743484401) ALK PHOS (test code = 167 U/L 34-122 H 1610482359) ALTv (test code = 200 U/L 5-35 H 1742-6) AST(SGOT) (test code = 94 U/L 13-40 H 1001759723) eGFR (test code = mL/min/1.73m2 1081503126) ASHELY (test code = ASHELY) Association of Glomerular Filtration Rate (GFR) and Staging of Kidney Disease* + --+ --+ ------+| GFR (mL/min/1.73 m2) ?| With Kidney Damage ?| ?Without Kidney Damage+ --------+ --------+ +| ?>90 ?| ?Stage one ?| ? Normal ?+ ---+ ---+ -------+| ?60-89 ?| ?Stage two ?| ? Decreased GFR ? + --+ --+ ------+| ?30-59 ?| ?Stage three ?| ? Stage three ? + --+ --+ ------+| ?15-29 ?| ?Stage four ? | ? Stage four ?+ ---+ ---+ -------+| ?<15 (or dialysis) ? ?| ?Stage five ? | ? Stage five ?+ ---+ ---+ -------+ *Each stage assumes the associated GFR level has been in effect for at least three months. ?Stages 1 to 5, with or without kidney disease, indicate chronic kidney disease. Notes: Determination of stages one and two (with eGFR >59mL/min/1.73 m2) requires estimation of kidney damage for at least three months as defined by structural or functional abnormalities of the kidney, manifested by either:Pathological abnormalities or Markers of kidney damage (including abnormalities in the composition of the blood or urine or abnormalities in imaging tests). Lab Interpretation Abnormal (test code = 71847-3) [facility] 13:31:56 Test Item Value Reference Range Interpretation Comments MAGNESIUM (test code = 1016933199) 1.9 mg/dL 1.7-2.4 Lab Interpretation (test code = Normal 54939-8) [facility]CREAT[facility] [id number] 13:31:31 Test Item Value Reference Range Interpretation Comments CK (test code = 8635218414) 71 U/L 33-194 Lab Interpretation (test code = Normal 61879-5) [facility]2022-[facility]-07 13:31:31 Test Item Value Reference Range Interpretation Comments PHOSPHORUS (test code = 2472516580) 2.8 mg/dL 2.5-5.0 Lab Interpretation (test code = Normal 25030-7) [facility]CBC WITH [id number] 12:40:10 Test Item Value Reference Range Interpretation Comments WBC (test code = See_Comment H [Automated 6690-2) message] The sy stem which generated this result transmitted reference range : 4.30 - 11.10 10*3/?L. The reference range was not used to interpret this result as normal/abnormal . RBC (test code = See_Comment [Automated 789-8) message] The sy stem which generated this result transmitted reference range : 3.93 - 5.25 10*6/?L. The reference range was not used to interpret this result as normal/abnormal . HGB (test code = 14.0 g/dL 11.6-15.0 718-7) HCT (test code = 42.5 % 35.7-45.2 4544-3) MCV (test code = 87.4 fL 80.6-95.5 787-2) MCH (test code = 28.8 pg 25.9-32.8 785-6) MCHC (test code = 32.9 g/dL 31.6-35.1 786-4) RDW-SD (test code = 51.7 fL 39.0-49.9 H 60513-1) RDW-CV (test code = 16.1 % 12.0-15.5 H 788-0) PLT (test code = See_Comment [Automated 777-3) message] The sy stem which generated this result transmitted reference range : 166 - 358 10*3/ ?L. The reference r darryn was not used to interpret this result as normal/abnormal . MPV (test code = 9.2 fL 9.5-12.9 L 85877-8) NRBC/100 WBC (test See_Comment [Automat ed code = 2998392198) message] The system which generated this result transmitted reference range : 0.0 - 10.0 /100 WBCs. The refer ence range was not u sed to interpret th is result as normal/abnormal . NRBC x10^3 (test code <0.01 See_Comment [Auto mated = 1210764683) message] The s ystem which generated this result transmitted reference range : 10*3/?L. The reference range was not used to interpret this result as normal/abnormal . GRAN MAT (NEUT) % 62.6 % (test code = 770-8) IMM GRAN % (test code 0.40 % = 9095745913) LYMPH % (test code = 27.8 % 736-9) MONO % (test code = 7.6 % 5905-5) EOS % (test code = 1.1 % 713-8) BASO % (test code = 0.5 % 706-2) GRAN MAT x10^3(ANC) 8.73 10*3/uL 1.88-7.09 H (test code = 4320150523) IMM GRAN x10^3 (test 0.06 10*3/uL 0.00-0.06 code = 5131807282) LYMPH x10^3 (test code 3.89 10*3/uL 1.32-3.29 H = 731-0) MONO x10^3 (test code 1.06 10*3/uL 0.33-0.92 H = 742-7) EOS x10^3 (test code = 0.16 10*3/uL 0.03-0.39 711-2) BASO x10^3 (test code 0.07 10*3/uL 0.01-0.07 = 704-7) Lab Interpretation Abnormal (test code = 00915-7) [facility] Hospital[facility]th[facility] (PTT) / [id number] 11:48:47 Test Item Value Reference Range Interpretation Comments PROTIME PATIENT (test See_Comment H [Auto mated message] code = 5964-2) The system ich generated this result transmitted ref erence range: 12.0 - 1 4.7 Seconds. The reference range was not used to int erpret this result as normal/abnormal . INR (test code = 6301-6) Nor mal INR <1.1; Warfarin Therap eutic range 2.0 to 3. 0 or 2.5 to 3.5, dep ending upon the indica tions. Lab Interpretation (test Abnormal code = 88986-5) [facility] HospitalVITAMIN B12, [id number] 21:20:47 Test Item Value Reference Range Interpretation Comments VIT B12 (test code = 588 pg/mL 240-930 0198624225) ASHELY (test code = ASHELY) Biotin has been reported to cause a positive bias, interpret results relative to patient's use of biotin. Lab Interpretation (test Normal code = 91839-6) [facility] HospitalProthrombin Time (PTT) / [id number] 20:08:40 Test Item Value Reference Range Interpretation Comments PROTIME PATIENT (test See_Comment H [Auto mated message] code = 5964-2) The system [employer] generated this result transmitted ref erence range: 12.0 - 1 4.7 Seconds. The reference range was not used to int erpret this result as normal/abnormal . INR (test code = 6301-6) Nor mal INR <1.1; Warfarin Therap eutic range 2.0 to 3. 0 or 2.5 to 3.5, dep ending upon the indica tions. Lab Interpretation (test Abnormal code = 97894-2) [facility] HospitalPROCALCITONIN2022-05-06 18:26:43 Test Item Value Reference Range Interpretation Comments Procalcitonin (test 0.12 ng/mL <0.07 H code = 2320693809) ASHELY (test code = ASHELY) INTERPRETATION OF PROCALCITONIN RESULTS IN ADULTS >= 18 YEARS OF AGE Initiation and discontinuation of antibiotics on patients with suspected or confirmed Lower Respiratory Tract Infection in Adults >= 18 years of age. + +-------- --------+ + -----+|Procalcitonin |Interpretation ?|Antibiotic ? ? |Considerations ? |ng/mL ? | ?|recommendation | ? + +-------- --------+ + -----+| <0.1 ? | Bacterial ? ? ?| Strongly ? ? ?| ? | ?| infection very | discouraged ? | Overruling: ? | ?| unlikely ? ? ? | ? | ? Clinically unstable ? ? ? + +-------- --------+ + ? High risk for adverse ? ? | <0.25 ?| Bacterial ? ? ?| Discouraged ? | ? outcome ? | ?| infection ? ? ?| ? | ? SEE IMPORTANT NOTE ?| ?| unlikely ? ? ? | ? | ? + +-------- --------+ + -----+| >=0.25 ? ? ? | Bacterial ? ? ?| Encouraged ? ?| ? | ?| infection ? ? ?| ? | ? | ?| likely ? | ? | Consider treatment failure ?+ +------- ---------+ -+ if levels does not decrease | >0.5 ? | Bacterial ? ? ?| Strongly ? ? ?| appropriately ? | ?| infection very | encouraged ? ?| ? | ?| likely ? | ? | ? + +-------- --------+ + -----+ Discontinuation of antibiotics in high-acuity patients with suspected or confirmed sepsis in Adults >= 18 years of age. + +-------- --------+ + -----+|Procalcitonin |Interpretation ?|Antibiotic ? ? |Considerations ? |ng/mL ? | ?|recommendation | ? + +-------- --------+ + -----+| <0.25 ?| Bacterial ? ? ?| Strongly ? ? ?| ? | ?| infection very | discouraged ? | Overruling: ? | ?| unlikely ? ? ? | ? | ? Clinically unstable ? ? ? + +-------- --------+ + ? High risk for adverse ? ? | <0.5 or drop | Bacterial ? ? ?| Discouraged ? | ? outcome ? | >80% from ? ?| infection ? ? ?| ? | ? SEE IMPORTANT NOTE ?| highest PCT ?| unlikely ? ? ? | ? | ? | level ?| ?| ? | ? + +-------- --------+ + -----+| >=0.5 ?| Bacterial ? ? ?| Encouraged ? ?| ? | ?| infection ? ? ?| ? | ? | ?| likely ? | ? | Consider treatment failure ?+ +------- ---------+ -+ if levels does not decrease | >1.0 ? | Bacterial ? ? ?| Strongly ? ? ?| appropriately ? | ?| infection very | encouraged ? ?| ? | ?| likely ? | ? | ? + +-------- --------+ + -----+ Percentage of drop of Procalcitonin calculation for Discontinuation of antibiotics in high-acuity patients with suspected or confirmed sepsis in Adults >= 18 years of age. ? Procalcitonin highest{}-Procalcitonin current{}Delta Procalcitonin = x100% ? Procalcitonin current {} IMPORTANT NOTE: Procalcitonin may be elevated without bacterial infection by physiologic stress related to trauma, montoya, chronic dialysis, metastatic cancer, surgery in the past seven days, malaria, some fungal infections, and some forms of vasculitis. The interpretation algorithm may not apply to patients with immunosuppression (equivalent of >10 mg of prednisone daily), HIV with CD4 cell count < 350 cells/mm3, active malignancy on systemic chemotherapy, solid organ transplant or hematopoietic stem cell transplantation, or hospital acquired pneumonia. Additionally, some clinical trials of procalcitonin have excluded patients with shock requiring vasopressor use, acute respiratory failure requiring mechanical ventilation, or those with known lung abscess/empyema. For further information please refer to:[email or web address] Lab Interpretation Abnormal (test code = 13024-1) [facility]PHOS[facility]2022-[facility]-06 17:59:33 Test Item Value Reference Range Interpretation Comments PHOSPHORUS (test code = 3.4 mg/dL 2.5-5.0 Slig ht hemolysis 1964428336) Lab Interpretation (test Normal code = 70799-9) [facility] HospitalC-REACTIVE [id number] 17:16:09 Test Item Value Reference Range Interpretation Comments CRP (test code = 8442251294) 3.7 mg/dL <0.8 H Lab Interpretation (test code = Abnormal 76682-9) [facility] HospitalKEPPRA (LEVETIRACETAM)2021-12-21 17:07:22 Test Item Value Reference Range Interpretation Comments KEPPRA (test code = 7 ug/mL 12-46 L 8253879027) ASHELY (test code = ASHELY) Therapeutic range: 12-46 ?g/mL ? ?Toxic: Not well established.Test developed and characteristics determined by [facility] Laboratory Services. Lab Interpretation Abnormal (test code = 23257-9) [facility] HospitalFERRITIN [id number] 16:21:51 Test Item Value Reference Range Interpretation Comments FERRITIN (test code = 117.0 ng/mL 11.0-264.0 6278745742) ASHELY (test code = ASHELY) Biotin has been reported to cause a negative bias, interpret results relative to patient's use of biotin. Lab Interpretation (test Normal code = 55720-4) [facility] HospitalTHYROID STIMULATING [id number] 16:17:33 Test Item Value Reference Range Interpretation Comments TSH (test code = See_Comment L [Automated message] 1183345161) The system [employer] generated this result transmitted ref erence range: 0.45 - 4 .70 mIU/L. The refe rence range was not u sed to interpret this result as normal/abnor mal. Lab Interpretation (test Abnormal code = 12386-0) [facility] HospitalHEPATITIS B SURFACE [id number] 16:09:11 Test Item Value Reference Range Interpretation Comments HBsAB (test code = Negative 0669897564) HBsAb mIU/mL Semi-Quantitative (test code = 8023489569) ASHELY (test code = Interpretation: ASHELY) ?Hepatitis B Surface Antibody ? Negative - Patient is considered to be not immune to infection with HBV. ? ? Positive - Anti-HBs detected at greater than or equal to 12 mIU/mL. ?Patient is considered to be immune to infection with HBV. ? [facility] HospitalHCV [id number] 16:09:11 Test Item Value Reference Range Interpretation Comments HCV Ab (test code = 66299-6) Negative HCV Semi-Quantitative (test code = 22317-9) [facility] HospitalHAV ANTIBODY (IGG AND IGM)2021-12-21 16:09:11 Test Item Value Reference Range Interpretation Comments HAV Total (test code = 7138269498) Negative HAVT Semi-Quantitative (test code = 7812484226) [facility] HospitalIRON [id number] 16:02:55 Test Item Value Reference Range Interpretation Comments IRON (test code = 56 ug/dL 50-160 Slight hem olysis 1594643330) TIBC (test code = 404 ug/dL 250-410 6214261174) % FE SAT (test code = 14 % 20-50 L 2122758025) Lab Interpretation (test Abnormal code = 90356-4) [facility] HospitalVITAMIN D, [id number] 15:53:27 Test Item Value Reference Range Interpretation Comments VIT D 25OH (test code = 14 ng/mL 25-80 L 76846-1) ASHELY (test code = ASHELY) Deficiency: <20 ng/mLInsufficiency: 20-24 ng/mLOptimal: 25-80 ng/mL Lab Interpretation (test Abnormal code = 37282-9) [facility] HospitalHEPATITIS B SURFACE [id number] 15:52:06 Test Item Value Reference Range Interpretation Comments HBsAg Semi-Quantitative (test code = Negative Negative 5195-3) [facility] HospitalLIPID PANEL (32032)(TOTAL CHOLESTEROL, TRIGLYCERIDES, HDL)2021-12-21 15:40:41 Test Item Value Reference Range Interpretation Comments CHOL (test code = 163 mg/dL 120-200 7359858894) HDL (test code = 68 mg/dL >50 8781190870) HDLC RATIO (test code = See_Comment [Au tomated message] 8610352589) The system [employer] generated this result transmit brissa reference range : <=4.5. The refe rence range was not u sed to interpret th is result as normal/abnormal . TRIG (test code = 198 mg/dL 30-170 H 8641401953) LDL CHOL (test code = 55 mg/dL See_Comment [Auto mated message] 30298-2) The system [employer] generated this result transmit brissa reference range : <=160. The refe rence range was not u sed to interpret th is result as normal/abnormal . VLDL (test code = 40 mg/dL 5-60 1341581352) Lab Interpretation (test Abnormal code = 48213-4) [facility] HospitalAMMONIA, [id number] 14:15:36 Test Item Value Reference Range Interpretation Comments AMMONIA (test code = 7753799959) <9 9-33 L Lab Interpretation (test code = Abnormal 35152-8) [facility] HospitalCREATINE [id number] 12:25:19 Test Item Value Reference Range Interpretation Comments CK (test code = 4096355598) 102 U/L 33-194 Slight hemolysis Lab Interpretation (test code Normal = 80629-1) [facility] HospitalSEDIMENTATION [id number] 12:16:07 Test Item Value Reference Range Interpretation Comments ESR (test code = See_Comment [Automated message] 7909939103) The system [employer] generated this result transmitted ref erence range: 0 - 20 m m/HR. The reference r darryn was not used to interpret this result as normal/abnor mal. Lab Interpretation (test Normal code = 80979-7) [facility] CARE VENOUS BLOOD [id number] 10:47:31 Test Item Value Reference Range Interpretation Comments PH (test code = 7.32-7.42 H 9838021161) PCO2 ARGENIS (test code = See_Comment [Auto mated message] 7586434012) The system [employer] generated this result transmitted ref erence range: 41 - 51 mmHg. The reference r darryn was not used to interpret this result as normal/abnor mal. PO2 ARGENIS (test code = See_Comment [Autom ated message] 7111664659) The system [employer] generated this result transmitted ref erence range: 25 - 40 mmHg. The reference r darryn was not used to interpret this result as normal/abnor mal. HCO3 ARGENIS (test code = See_Comment H [Auto mated message] 5710905403) The system [employer] generated this result transmitted ref erence range: 24 - 28 mEq/L. The reference r darryn was not used to interpret this result as normal/abnor mal. AC VBE(BEAKER) (test mEq/L code = 9905692832) Lab Interpretation (test Abnormal code = 54055-4) [facility] HospitalGLYCOSYLATED HEMOGLOBIN (A1C)2021-12-21 09:39:01 Test Item Value Reference Range Interpretation Comments HGB A1C (test code = 6.2 % 4.0-5.7 H 4548-4) ASHELY (test code = ASHELY) Reference RangesNormal: <5.7%Prediabetes: 5.7 - 6.4%Diabetes: > 6.5% Lab Interpretation (test Abnormal code = 49061-7) [facility] HospitalACETAMINOPHEN2022-05-06 05:01:12 Test Item Value Reference Range Interpretation Comments ACETAMINOP (test code = <10.0 10.0-30.0 L 2924254560) ASHELY (test code = ASHELY) Toxic: Greater than 200 ug/mL @ 4 hour post ingestion or greater than 50 ug/mL @ 12 hour post ingestion Lab Interpretation (test Abnormal code = 80641-6) [facility] HospitalTROPONIN [id number] 04:45:26 Test Item Value Reference Interpretation Comments Range TROPONIN I (test 0.003 ng/mL See_Comment [Automated code = 4318009389) message] The system which generated this result transmitted reference range : <=0.034. The reference range was not used to interpret this result as normal/abnormal . ASHELY (test code = Reference (Normal) ASHELY) Range (defined by the 99th percentile reference limit): <= 0.034 ng/mL Note: Cardiac troponin begins to rise 3-4 hours after the onset of ischemia. Repeat in 4-6 hours if the sample was drawn within 3-4 hours of the onset of the symptom and found normal. Diagnosis of myocardial injury is made with acute changes in cTn concentrations with at least one serial sample above the 99th percentile upper reference limit (URL), taken together with the patient's clinical presentation. Biotin has been reported to cause a negative bias, interpret results relative to patient's use of biotin. Lab Interpretation Normal (test code = 42549-8) [facility] HospitalN-TERMINAL [id number] 04:42:25 Test Item Value Reference Range Interpretation Comments NT-proBNP (test code 1610 pg/mL See_Comment H [Autom ated = 0218736152) message] The system which generated this result transmitted reference range : <=125. The reference range was not used to interpret this result as normal/abnormal . ASHELY (test code = ASHELY) Biotin has been reported to cause a negative bias, interpret results relative to patient's use of biotin. Lab Interpretation Abnormal (test code = 76430-9) [facility] HospitalMAGNESIUM2022-05-06 04:35:03 Test Item Value Reference Range Interpretation Comments MAGNESIUM (test code = 3850463045) 1.8 mg/dL 1.7-2.4 Lab Interpretation (test code = Normal 52099-1) [facility]. METABOLIC PANEL (30835)2021-12-21 04:34:43 Test Item Value Reference Range Interpretation Comments NA (test code = 137 mmol/L 135-145 0695267576) K (test code = 5.5 mmol/L 3.5-5.0 H 7036113581) CL (test code = 95 mmol/L 98-108 L 2722417168) CO2 TOTAL (test code = 35 mmol/L 23-31 H 1198002524) AGAP (test code = 2-16 9708809549) BUN (test code = 13 mg/dL 7-23 4442882343) GLUCOSE (test code = 133 mg/dL 70-110 H 2198010153) CREATININE (test code = 0.76 mg/dL 0.50-1.04 4492393440) TOTAL BILI (test code = 0.8 mg/dL 0.1-1.8 0299661049) CALCIUM (test code = 9.8 mg/dL 8.6-10.6 3578679757) T PROTEIN (test code = 7.8 g/dL 6.3-8.2 0299236025) ALBUMIN (test code = 4.5 g/dL 3.5-5.0 5533827013) ALK PHOS (test code = 249 U/L 34-122 H 2585401999) ALTv (test code = 446 U/L 5-35 H 1742-6) AST(SGOT) (test code = 476 U/L 13-40 H 3969604673) eGFR (test code = mL/min/1.73m2 4201078177) ASHELY (test code = ASHELY) Association of Glomerular Filtration Rate (GFR) and Staging of Kidney Disease* + --+ --+ ------+| GFR (mL/min/1.73 m2) ?| With Kidney Damage ?| ?Without Kidney Damage+ --------+ --------+ +| ?>90 ?| ?Stage one ?| ? Normal ?+ ---+ ---+ -------+| ?60-89 ?| ?Stage two ?| ? Decreased GFR ? + --+ --+ ------+| ?30-59 ?| ?Stage three ?| ? Stage three ? + --+ --+ ------+| ?15-29 ?| ?Stage four ? | ? Stage four ?+ ---+ ---+ -------+| ?<15 (or dialysis) ? ?| ?Stage five ? | ? Stage five ?+ ---+ ---+ -------+ *Each stage assumes the associated GFR level has been in effect for at least three months. ?Stages 1 to 5, with or without kidney disease, indicate chronic kidney disease. Notes: Determination of stages one and two (with eGFR >59mL/min/1.73 m2) requires estimation of kidney damage for at least three months as defined by structural or functional abnormalities of the kidney, manifested by either:Pathological abnormalities or Markers of kidney damage (including abnormalities in the composition of the blood or urine or abnormalities in imaging tests). Lab Interpretation Abnormal (test code = 58243-4) [facility] HospitalLIPASE2022-[facility] 04:34:23 Test Item Value Reference Range Interpretation Comments LIPASE (test code = 0885306510) 67 U/L 0-220 Lab Interpretation (test code = Normal 39812-4) [facility] HospitalACTIVATED PARTIAL THRMPLAS [id number] 04:29:25 Test Item Value Reference Range Interpretation Comments APTT Patient (test See_Comment [Automat ed code = 3173-2) message] The system which generated this result transmitted reference range : 23 - 38 Seconds . The reference range was not used to interpr et this result as normal/abnormal . ASHELY (test code = ASHELY) The [facility] patient population mean normal value for aPTT is 30 seconds. Lab Interpretation Normal (test code = 04561-6) [facility] / [id number] 04:27:04 Test Item Value Reference Range Interpretation Comments PROTIME PATIENT (test See_Comment H [Auto mated message] code = 5964-2) The system wh ich generated this result transmitted ref erence range: 12.0 - 1 4.7 Seconds. The reference range was not used to int erpret this result as normal/abnormal . INR (test code = 6301-6) Nor mal INR <1.1; Warfarin Therap eutic range 2.0 to 3. 0 or 2.5 to 3.5, dep ending upon the indica tions. Lab Interpretation (test Abnormal code = 89471-9) [facility] GSUJ0065-55-01 04:18:21 Test Item Value Reference Range Interpretation Comments WBC (test code = See_Comment H [Automated 6690-2) message] The system which generated this result transmit brissa reference range : 4.30 - 11.10 10*3/?L. The reference range was not used to interpret this result as normal/abnormal . RBC (test code = See_Comment H [Automated 789-8) message] The system which generated this result transmit brissa reference range : 3.93 - 5.25 10*6/?L. The reference range was not used to interpret this result as normal/abnormal . HGB (test code = 15.4 g/dL 11.6-15.0 H 718-7) HCT (test code = 48.0 % 35.7-45.2 H 4544-3) MCV (test code = 88.1 fL 80.6-95.5 787-2) MCH (test code = 28.3 pg 25.9-32.8 785-6) MCHC (test code = 32.1 g/dL 31.6-35.1 786-4) RDW-SD (test code = 50.6 fL 39.0-49.9 H 93393-8) RDW-CV (test code = 15.8 % 12.0-15.5 H 788-0) PLT (test code = See_Comment [Automated 777-3) message] The system which generated this result transmit brissa reference range : 166 - 358 10*3/ ?L. The reference range was not u sed to interpret th is result as normal/abnormal . MPV (test code = 9.7 fL 9.5-12.9 73134-9) NRBC/100 WBC (test See_Comment [Automat ed code = 3157559326) message] The system which generated this result transmit brissa reference range : 0.0 - 10.0 /100 WBCs. The reference range was not used to interpret this result as normal/abnormal . NRBC x10^3 (test code <0.01 See_Comment [Auto mated = 0815982344) message] The system which generated this result transmit brissa reference range : 10*3/?L. The reference range was not used to interpret this result as normal/abnormal . GRAN MAT (NEUT) % 85.4 % (test code = 770-8) IMM GRAN % (test code 0.30 % = 6916447217) LYMPH % (test code = 10.2 % 736-9) MONO % (test code = 3.7 % 5905-5) EOS % (test code = 0.1 % 713-8) BASO % (test code = 0.3 % 706-2) GRAN MAT x10^3(ANC) 12.25 10*3/uL 1.88-7.09 H (test code = 9711052820) IMM GRAN x10^3 (test 0.05 10*3/uL 0.00-0.06 code = 8216170119) LYMPH x10^3 (test code 1.46 10*3/uL 1.32-3.29 = 731-0) MONO x10^3 (test code 0.53 10*3/uL 0.33-0.92 = 742-7) EOS x10^3 (test code = <0.03 0.03-0.39 L 711-2) BASO x10^3 (test code 0.05 10*3/uL 0.01-0.07 = 704-7) Lab Interpretation Abnormal (test code = 27124-7) [facility] DLQWM2767-50-53 08:51:002.6[facility]annCHE[facility] QGVZW8927-55-19 08:51:55027Ctdyvtci HermannCHEM JZSDY3407-52-45 08:51:008.2[facility]annCHEM RCKUP7650-04-54 08:51:0097[facility]annCHEM WRJAE4099-55-87 08:51:003.3[facility]annCHEM UOONX2283-38-70 08:51:79274 [facility]annCHEM HIYTV3685-42-53 08:51:0015.3[facility]annCHEM PANEL 2019-03-12 08:51:0021[facility]annCHEM PEYRT2468-93-35 08:51:005[facility]annCHEM OYZIJ0679-21-95 08:51:000.64[facility]annCHEM ATKLP0073-69-14 08:51:30595Ngynhonq HermannCHEM JVCPR8098-17-28 08:51:001.9[facility] ZXEVDMCZPZ8805-02-67 08:51:000.1[facility] ShsxsqvCMFLWHXWSE6558-08-66 08:51:003.0 [facility] KnumllmJPBTKYYQBM1451-85-22 08:51:001.2[facility] HermannHEMATOLOGY 2019-03-12 08:51:0062.0[facility] XbuqyjgCGHQYPEQNI0555-10-06 08:51:002.6[facility] QxaxzfcYKMCPQVNDE7887-05-92 08:51:000.4[facility] ZzshvwqZCGCKIKAOR6547-16-88 08:51:0029.6[facility] GtwreqeJOIDZCOWEL6390-28-36 08:51:004.2[facility] ZJBHGCSENR8915-03-77 08:51:000.3[facility] DcxwxamRWWZHUYIKM7028-86-33 08:51:005.5 [facility] WaneqkdRSQMCUXJYR7243-96-67 08:51:003.64[facility] HermannHEMATOLOGY 2019-03-12 08:51:0010.5[facility] PymtixyHEAFGRTGUW0131-42-73 08:51:51557Zsuvvfqg FbjcdqzJDPCCGCRNN9096-29-04 08:51:008.0[facility] FbbdrytLUBHQOEAPP7034-52-21 08:51:0016.7[facility] OxvfubeLWDLWTLBBM7003-34-29 08:51:008.9[facility] WFFJFNTFIZ3528-79-47 08:51:00 Test Item Value Reference Range Interpretation Comments MCH (test code = MCH) 29.0 pg 27.0-31.0 [facility] KlbgtyiBAWCOTSAOZ6920-45-63 08:51:0032.7[facility] HermannHEMATOLOGY 2019-03-12 08:51:0088.4[facility] XmmgkufSDKXZCGCDX6216-30-46 08:51:0032.2[facility] HermannPARATHYROID MILJDGU6929-78-40 08:51:001.05[facility] HermannPARATHYROID BXSCCGL0790-42-27 08:51:001.05[facility]annCHEM WRAYS2966-93-14 21:57:0083 [facility]annCHEM RZTHJ1143-25-22 21:57:0011.4[facility] HermannCHEM PANEL 2019-03-11 21:57:008.2[facility] HermannCHEM ZDPEI5395-12-79 21:57:0025[facility]annCHEM IYYOA9251-19-04 21:57:74298Nrinyixk HermannCHEM OVPAO9887-92-40 21:57:003.4[facility]annCHEM AUSNI3058-81-76 21:57:000.80[facility]annCHEM QMHUD7664-94-84 21:57:91306Rcamqsxg HermannCHEM IHPJC0327-46-92 21:57:77358 [facility]annCHEM HHBMH6564-79-59 21:57:004[facility] HermannPARATHYROID FTGGOKE5423-11-45 21:57:001.07[facility] HermannPARATHYROID TCEYYAM2068-16-58 21:57:001.07[facility]annURINE AND DBTAW4932-26-75 21:57:004[facility] URINE AND ZPPDJ9180-53-02 21:57:00Negative (03/11/19 4:57 PM)[facility] URINE AND FBEHA8312-88-65 21:57:00<1.0[facility]annURINE AND STOOL 2019-03-11 21:57:00Negative (03/11/19 4:57 PM)[facility] STOOL 2019-03-11 21:57:00Negative *NA*(03/11/19 4:57 PM)[facility] STOOL 2019-03-11 21:57:00Negative (03/11/19 4:57 PM)[facility] STOOL 2019-03-11 21:57:001[facility] AND SVTHN3781-37-03 21:57:00Yellow *NA*(03/11/19 4:57 PM)[facility] AND RWJDL8675-14-24 21:57:00Slight *ABN*(03/11/19 4:57 PM)[facility] AND BMAGP0876-98-06 21:57:00 Test Item Value Reference Range Interpretation Comments UA Spec Grav (test code = UA Spec 1.016 1 Grav) [facility] AND CUXCP1607-05-49 21:57:00 Test Item Value Reference Range Interpretation Comments UA pH (test code = UA pH) 8.0 1 5.0-8.0 [facility] LQRS3260-72-68 21:57:007.4[facility] CHEM 2019-03-11 21:57:99892Cwmfiuht HermannURINE CNQP1661-76-77 21:57:00602Yocylhvv [facility]annURINE AAAM4748-57-66 21:57:68788Awevqzqx [facility]annURINE UYNH7549-76-98 21:57:00Negative (03/11/19 4:57 PM)[facility]annCHEM WCKUP9102-88-00 09:03:00 109[facility]annCHEM IPONE3303-16-60 09:03:002.9[facility] HermannCHEM PANEL 2019-03-11 09:03:76550Lamyoupe HermannCHEM CTETP3408-02-47 09:03:000.51[facility] HermannCHEM QXTYC8161-23-72 09:03:004[facility]annCHEM GQFBW3175-63-63 09:03:0079[facility]annCHEM UHYKX4647-52-05 09:03:007.6[facility]annCHEM ATNPH5909-26-72 09:03:009.9[facility]annCHEM RHPEA0281-69-11 09:03:0027 [facility]annCHEM KHHAR7447-06-07 09:03:29100Psncfclq HermannCHEM PANEL 2019-03-11 09:03:003.7[facility] HermannCHEM TQUGI3174-43-49 09:03:002.0[facility] ZjcvtukQYRHKBTPGU4464-56-56 09:03:008.1[facility] YwdlhpqFAYTSELVTN3364-09-16 09:03:40597Wbybwdzt ZjevpplCKALMKMSRO3794-27-84 09:03:0016.6[facility] WQNJAVYWSQ1675-97-22 09:03:00 Test Item Value Reference Range Interpretation Comments MCH (test code = MCH) 29.0 pg 27.0-31.0 [facility] WsqfsqhGDHZMPGYWJ9738-71-31 09:03:0033.0[facility] HermannHEMATOLOGY 2019-03-11 09:03:003.64[facility] RlqzmvyNGWESROSPU3214-05-31 09:03:0010.6[facility] IrzxtxjZADRJUTDVY1536-74-06 09:03:009.3[facility] FjdprpoZEXFROQFDL3345-04-33 09:03:0087.8[facility] OfbcuoiEXJOWUNYTM2500-40-85 09:03:0032.0[facility] IVUFPHTRUH6797-31-17 09:03:004.0[facility] PmhavcsOHFEECRZBP9195-49-07 09:03:00 62.5[facility] OzekgsrRBMZBJTGHR8697-11-72 09:03:0027.8[facility] HermannHEMATOLOGY 2019-03-11 09:03:004.5[facility] VhcklhiONCDBNCHZJ8721-51-69 09:03:005.8[facility] KhkzzbtXAUMDPSHLD8804-85-63 09:03:002.6[facility] NrxggimFRZPGCGFJN9773-45-60 09:03:000.4[facility] DwybpdsIFUNFLSAJE7807-96-04 09:03:000.4[facility] VTLWNJFNWR7402-74-45 09:03:001.2[facility] WatmkhgNKBBEHDGYR5385-77-70 09:03:000.1 [facility] HermannPARATHYROID WROTCAX5178-36-51 09:03:000.91[facility] PARATHYROID LXSSGIN7459-61-05 09:03:000.96[facility] PiilwsiKHYYJDRTQL7475-13-88 19:00:000.3[facility] DtgzsjrKUNVMABYBC7948-17-87 19:00:000.4[facility] IXMGTNPHKN8392-92-80 19:00:002.8[facility] StplkgiUXYMKSSMUP2631-04-59 19:00:000.1 [facility] UwwjrmjUTBJQOYPGV6420-22-36 19:00:0061.6[facility] HermannHEMATOLOGY 2019-03-10 19:00:0029.1[facility] FjtiwwwNMHCYKAMIJ4639-48-01 19:00:001.2[facility] TsqpudxKUOGTRXFOR6720-10-78 19:00:004.5[facility] VdacloyFALDMTTKDP7034-72-51 19:00:005.8[facility] MwqptxkXJWKATALEM0282-19-65 19:00:003.6[facility] QDNRWJJBYJ7376-90-98 19:00:007.9[facility] PgljszzCOVSZQFDPZ8413-89-28 19:00:00 34.6[facility] LucnqbxSNYWHCJYQI2333-71-25 19:00:00 Test Item Value Reference Range Interpretation Comments MCH (test code = MCH) 28.6 pg 27.0-31.0 [facility] BikeokuBNYMSCNSSM3171-34-83 19:00:0088.5[facility] HermannHEMATOLOGY 2019-03-10 19:00:62163Yglwecdn VcaycooLQZDKZVXMX1330-01-58 19:00:0016.7[facility] UruztvnPZTRZTNPHD3901-34-21 19:00:0032.3[facility] HtoenkpVNJCOSBUUM8198-15-99 19:00:0011.2[facility] BpiuiayZUNEHJWNJH7296-85-27 19:00:003.91[facility] LTKSZHZVEW7844-49-67 19:00:009.5[facility] FprjovkWRLTFCELFT7386-02-39 19:00:00 Test Item Value Reference Range Interpretation Comments INR (test code = INR) 1.06 1 0.85-1.17 [facility] ZsjisavPPCLRNBVHE1913-31-53 19:00:00 Test Item Value Reference Range Interpretation Comments PT (test code = PT) 13.6 s 12.0-14.7 [facility] YmigouiBXMDYVNAIO3218-86-17 19:00:00 Test Item Value Reference Range Interpretation Comments PTT (test code = PTT) 36.3 s 22.9-35.8 [facility] HermannCARDIAC WUAPHCK4086-69-56 11:47:000.30[facility] HermannCHEM PANEL 2019-03-10 11:47:001.6[facility] HermannCHEM OZLXN6181-62-91 11:47:002.1[facility] ZirpvazTFTRUE6538-57-52 11:47:00 Test Item Value Reference Range Interpretation Comments VLDL (test code = VLDL) 39 1 [facility] PvmhgcvUXJLXD8325-25-71 11:47:0036[facility] OnxmiyaIQEGKR7637-47-48 11:47:0028[facility] CevbvjgWTSSHE6366-77-40 11:47:47225Mbjrmcad HermannLIPIDS 2019-03-10 11:47:38263Eqieirki DytuymzHGHORJ9912-44-71 11:47:00 Test Item Value Reference Range Interpretation Comments CHD Risk (test code = CHD Risk) 3.68 1 3.90-5.80 [facility] RXOMATWAF4684-68-66 11:47:004.8[facility] HermannANEMIA DKKDS0371-55-32 09:18:73893Vgddhcvd HermannANEMIA VKMCZ1779-94-18 09:18:004.4 [facility]annCARDIAC BVPZDUS9408-04-81 09:18:0010[facility] HermannCHEM PANEL 2019-03-10 09:18:78638Kpafefdj LljbaclRTEDHEWFJF1796-38-82 07:49:00 Test Item Value Reference Range Interpretation Comments PTT (test code = PTT) 42.4 s 22.9-35.8 [facility] WfsmiabOSTRUYFMKK0829-03-44 07:49:00 Test Item Value Reference Range Interpretation Comments PT (test code = PT) 13.5 s 12.0-14.7 [facility] ZttprckLYQWHSEKPS0336-75-51 07:49:00 Test Item Value Reference Range Interpretation Comments INR (test code = INR) 1.05 1 0.85-1.17 [facility] HermannCARDIAC MYLZDPL2460-75-92 07:00:000.48[facility] HermannCARDIAC URBLJBA2978-01-37 22:16:000.50[facility] HermannCARDIAC MWWBBXN9640-79-20 22:16:00 63[facility] HermannCHEM PCCJV0435-81-43 22:16:001.2[facility] HermannHEMATOLOGY 2019-03-09 22:16:00 Test Item Value Reference Range Interpretation Comments PTT (test code = PTT) 31.7 s 22.9-35.8 [facility] TpaoplpXBWPXURTBR5448-70-40 22:16:00 Test Item Value Reference Range Interpretation Comments INR (test code = INR) 1.07 1 0.85-1.17 [facility] LvzvwsrZRDQNDVBPS8082-54-11 22:16:00 Test Item Value Reference Range Interpretation Comments PT (test code = PT) 13.7 s 12.0-14.7 [facility]annCHEM SSIMQ4349-29-92 09:12:003.5[facility] HermannCHEM PANEL 2015-03-22 09:12:001.8[facility] KzpydquRGUNUXEFVLPT0776-12-05 09:12:0022[facility] QexqsgxZNVWGYVRGHXB5076-57-47 09:12:008.9[facility] OkyzingZZEDFIYHNBGE6720-95-41 09:12:0014.6[facility] PpnflyvQTKDXOACFXJH0921-52-95 09:12:41546Lznmeriy [facility] CDAJFPTZKRYH0864-52-91 09:12:003.6[facility] JqijwozTUJMYALNXXIQ6471-00-43 09:12:000.9[facility] KsbzcgdVOHCKVWBFHDW4409-96-04 09:12:62266Mvukklaz [facility] FLYRATMDDQNB3597-71-26 09:12:0081[facility] DtzwunoPJUQYMDRSJFC9433-22-83 09:12:00 10[facility] BsgqkrhOLAMTXVDFAGK1135-20-58 09:12:0075[facility] HermannHEMATOLOGY 2015-03-22 09:12:007.5[facility] MuegazbEPMJZSEAWW2677-77-14 09:12:29697Gzhiuknp YpreyhfLQNMRQPMBR7086-28-10 09:12:0011.7[facility] AebicgiMDQWCCHYGR4961-39-43 09:12:0032.6[facility] GduyhvmXMSTUZTDNX9552-87-87 09:12:0084.1[facility] MLMCQDJMIH3431-43-88 09:12:003.87[facility] AzqxehcMENKXIWELO0876-10-87 09:12:00 10.4[facility] CbqzrfdDUJSIWMWDX0910-82-55 09:12:0031.9[facility] HermannHEMATOLOGY 2015-03-22 09:12:00 Test Item Value Reference Range Interpretation Comments MCH (test code = MCH) 26.8 pg 27.0-31.0 [facility] JxjhoyoLOVQTABHPH4264-85-13 09:12:0017.6[facility]annHEMATOLOGY 2015-03-22 09:12:001.0[facility] TxjtxcmVWOSNTLWCQ5607-04-93 09:12:007.4[facility] HonxtpnESFHMYMQFD7313-54-16 09:12:0038.6[facility] KeerywlYQHSAAWTYX6836-38-64 09:12:0052.0[facility] ImyqfpfLIKVVZPTNJ3245-61-64 09:12:001.0[facility] DJWCMBQQEE8849-36-84 09:12:006.1[facility] WlrefncQKFDDSLSZM8123-73-79 09:12:000.1 [facility] FaxuunfHUUPNITPRH2808-39-57 09:12:000.9[facility]annHEMATOLOGY 2015-03-22 09:12:000.1[facility] FeczngwOQTNDFKJRZ2614-31-14 09:12:004.5[facility] DjblbrvHFVHVFWOYJ9523-36-22 16:38:005.0[facility] VrtxddlTHINJLKKRU4873-01-46 16:38:0014.5[facility] IhgqsumRLFYEXBFEL0891-71-75 16:38:0016.2[facility] BQTBDBLPZL8200-97-97 16:38:0015.1[facility] KoartvnWQGNDIWBSQ3862-09-36 16:38:00 49.2[facility] XkguacwBZUIVUMGPM1429-52-05 16:38:000.34[facility] HermannIMMUNOLOGY 2015-03-21 16:38:006.8[facility] BonhxnwAUYSJUTZRL5489-41-05 16:38:003.35[facility] RvgttlfSYBYFQIXGD0848-91-22 16:38:000.99[facility] FmxjccdQIGRCFYKBS2970-98-11 16:38:001.10[facility] RjnrycjBWHTEMEOVU3035-37-19 16:38:001.03[facility] CHEM BDBEI2579-18-51 09:35:90867Cqmorsty HermannCHEM SNETC3712-91-46 09:35:009.1 [facility]annCHEM GTNNB9572-89-82 09:35:003.8[facility]annCHEM PANEL 2015-03-21 09:35:0021[facility]annCHEM VMBKM7806-93-09 09:35:25253Fkmmhmdr HermannCHEM YJXJU6829-88-65 09:35:0011[facility]annCHEM RNJLZ0948-03-55 09:35:93502Yjkbyhnb HermannCHEM ZLIJJ1717-84-09 09:35:0083[facility]annCHEM IPTRW3072-05-64 09:35:000.7[facility]annCHEM GBYEJ4731-37-36 09:35:0014.8 [facility]annCHEM PHGTJ9852-08-06 09:35:001.8[facility]annCHEM PANEL 2015-03-21 09:35:004.1[facility] HgkglvfUHUFMYEKWU2941-99-08 09:35:000.1[facility] YxfslxqCMMDDPZQTJ3397-33-32 09:35:000.7[facility] EpczucfVJUFKHIXTW3616-65-92 09:35:001.0[facility] VkfqgomZXRPHYWZBV0174-56-56 09:35:001.2[facility] WSIZWBCBOR0019-32-58 09:35:003.7[facility] PwazsrkTXINJLEDRI2615-90-77 09:35:005.4 [facility] YvhssluDLSJKYTZYT9645-88-08 09:35:006.9[facility] HermannHEMATOLOGY 2015-03-21 09:35:000.1[facility] VfwuoecUKSTWBJEMX0261-30-88 09:35:0054.0[facility] RunzisuRRZBZIJWFS0135-18-62 09:35:0036.9[facility] InjpjraMUOMSVJTQX6461-74-17 09:35:0032.9[facility] WxkbkywFOHCKXLCMK8974-99-17 09:35:0010.8[facility] NFGPSDZMAU9462-26-78 09:35:003.91[facility] HmfspykAWIIOTBMRV4999-27-39 09:35:00 10.0[facility] SqpuijsXJWSHAMSRR5095-04-48 09:35:0032.9[facility]annHEMATOLOGY 2015-03-21 09:35:0017.2[facility] RkormapWISDPIQBMF6221-29-58 09:35:00 Test Item Value Reference Range Interpretation Comments MCH (test code = MCH) 27.7 pg 27.0-31.0 [facility] KbilpcsZZBYLMYBQV6986-49-43 09:35:0084.2[facility]annHEMATOLOGY 2015-03-21 09:35:007.5[facility] GvxlofwHJHGNXMAPQ6554-32-29 09:35:97724Vgbzzqnn UmxcdqwMVZYYWMDDM4000-51-70 04:39:036.4[facility] WsaetsdCKQCKLXXRM1843-82-19 08:41:001.9[facility] EffpwknJKYHKRDLXG3992-59-12 08:41:0035.6[facility] WELSDAAGQC9982-18-75 08:41:006.2[facility] XineqexJSUMBHSAXC4600-99-61 08:41:001.0 [facility] CftpkkbKJEBPNKOCG5014-00-77 08:41:005.3[facility]annHEMATOLOGY 2015-03-20 08:41:003.4[facility] XiqyubfFVFCBXJZCZ1661-67-48 08:41:000.6[facility] PdmqmybBAYBGBZHSJ2966-71-95 08:41:000.1[facility] RsxipvjTGWXXFMIMK8645-29-23 08:41:000.2[facility] FrvosqlAFYIBZMNSD4991-29-61 08:41:63184Rhytdeqe HermannCHEM EVPRV8835-90-86 08:41:08217Xvtjeqme HermannCHEM JAPFC1595-28-86 08:41:52891 [facility]annCHEM FKCGT8948-86-99 08:41:0071[facility] HermannCHEM PANEL 2015-03-20 08:41:007[facility] HermannCHEM BTEOS2640-18-33 08:41:000.7[facility] HermannCHEM WFOXY1444-77-20 08:41:003.9[facility] HermannCHEM PMGUM6561-79-16 08:41:009.2[facility] HermannCHEM NDEXR4666-66-57 08:41:87921Jdbyckoo HermannCHEM OINEY3527-14-10 08:41:0023[facility] HermannCHEM MLFMC0644-19-80 08:41:0013.9 [facility]annCHEM JZGRM4227-68-52 08:41:001.9[facility]annCHEM PANEL 2015-03-20 08:41:003.6[facility] XbsanhmKLWHPWPNBB9883-64-94 08:41:0033.2[facility] XjoivdtFXNYHAVOIO2271-48-92 08:41:01356Qfosaxbg EuvhrodKBQOCZFTPA1798-14-58 08:41:0017.2[facility] LosrfsqLSWOOUESRB4776-30-04 08:41:004.07[facility] SSZZXNFLAJ4728-14-56 08:41:009.6[facility] HmnwxapPJJAZHCRAG8607-38-09 08:41:00 11.2[facility] XheuwagWHXPEYXFSV9494-38-95 08:41:0033.6[facility] HermannHEMATOLOGY 2015-03-20 08:41:0082.6[facility] WkxicfzLDCALUFAQM1374-00-40 08:41:00 Test Item Value Reference Range Interpretation Comments MCH (test code = MCH) 27.4 pg 27.0-31.0 [facility] MavieecPOJGUOFHNX5147-35-63 08:41:007.7[facility]annHEMATOLOGY 2015-03-20 08:41:0055.3[facility] XgsrljjLMGSEIXCHS6178-29-16 16:56:000.91[facility] RoyccimFUBNLRVIAK7771-28-17 16:56:00Negative (03/19/15 11:56 AM)[facility] HLIYBMKUYD6902-44-23 16:56:00Non Reactive *NA*(03/19/15 11:56 AM)[facility] SZKKCXBTDT8903-77-37 21:44:00Negative *NA*(03/18/15 4:44 PM)[facility] HermannVIRAL - RWSRPIOC0776-65-64 21:44:00<0.90[facility] HermannCARDIAC WXVCLLV6425-96-01 00:57:00<0.02[facility] ErhwrqaVLTQFLYWQE8782-58-68 18:50:00 Test Item Value Reference Range Interpretation Comments PT (test code = PT) 14.5 s 12.0-14.7 [facility] WbzsjzvSXYYVUQXGD1281-16-34 18:50:001.12[facility] HermannHEMATOLOGY 2015-03-17 18:50:00 Test Item Value Reference Range Interpretation Comments PTT (test code = PTT) 31.2 s 22.9-35.8 [facility]annCARDIAC AGWPROP6495-91-56 17:15:00<0.02[facility] HermannCHEM RYTRK2500-86-79 17:15:0071.0[facility] HermannBODY NOFRWS4049-48-40 16:15:0042 [facility]annBODY MDMHDX9160-14-70 16:15:009[facility] FLUIDS 2015-03-17 16:15:001[facility] ZJNUWE8504-92-55 16:15:0090[facility] CMVTKB2783-08-83 16:15:00Clear (03/17/15 11:15 AM)[facility] BODY LEKWQK8682-12-79 16:15:00Colorless (03/17/15 11:15 AM)[facility] NRTJED5697-92-75 16:15:00 Test Item Value Reference Range Interpretation Comments Tube Num CSF (test code = Tube Num CSF) 3 1 [facility] YUBSZU8532-69-54 16:15:00Colorless (03/17/15 11:15 AM) [facility] TJXKZB4402-63-32 16:15:003[facility]annB[facility] FLUIDS 2015-03-17 16:15:10579Ypesmjnf HermannBODY QDQAAL6310-16-03 16:15:0071[facility] KczpiokUDGPCBETXD8459-71-26 16:15:00Non Reactive (03/17/15 11:15 AM)[facility]annMOLECULAR TIBIOQQQPA6918-01-46 16:15:00Negative 9(03/17/15 11:15 AM) [facility]annMOLECULAR SXRKGEGIGA8057-30-31 16:15:00Negative 8(03/17/15 11:15 AM)[facility]annVIRAL - NVDHJZVD0705-47-93 16:15:00Negative (03/17/15 11:15 AM)[facility]annBACTERIAL - ATKPKWXW4194-32-11 12:34:00Negative (03/17/15 7:34 AM)[facility] XgnseolLLTHFKAHYB2170-75-19 04:26:25349Fjotfpvu HermannBLOOD BANK UVCFNYH5662-23-12 02:18:00Negative (03/16/15 9:18 PM)[facility]annCHEM PANEL 2015-03-17 02:18:000.7[facility]annCHEM QEGHA5966-82-05 02:18:0012[facility]annCHEM OHBHS7307-67-89 02:18:003.9[facility]annCHEM UDDBE1649-84-86 02:18:005[facility]annCHEM HQSNR0651-54-81 02:18:30254Zvwgxgtj HermannCHEM ZKCHP1659-53-40 02:18:000.2[facility]annCHEM DKWJN2907-18-54 02:18:0019 [facility]annCHEM GGZSR9111-44-25 02:18:006.8[facility]annCHEM PANEL 2015-03-17 02:18:002.9[facility]annDRUG KFLBRO1360-59-14 02:18:00See Note *NA*(03/16/15 9:18 PM)[facility]annDR[facility] ONNXTU6648-54-12 02:18:00Negative *NA*(03/16/15 9:18 PM)[facility]annDR[facility] TEUXXX5325-76-13 02:18:00Negative *NA*(03/16/15 9:18 PM)[facility]annDR[facility] KQDMVP7446-13-36 02:18:00Negative *NA*(03/16/15 9:18 PM)[facility]annDRUG GODYRH0371-31-34 02:18:00Negative *NA*(03/16/15 9:18 PM)[facility]annDR[facility] FTIBKI2552-23-40 02:18:00Negative *NA*(03/16/15 9:18 PM)[facility]annDR[facility] UDSPRE4563-33-29 02:18:00Negative *NA*(03/16/15 9:18 PM)[facility]annDR[facility] ZFKMEU7364-61-95 02:18:00Negative *NA*(03/16/15 9:18 PM)[facility]annDRUG VDWZKX1929-37-56 02:18:00Negative *NA*(03/16/15 9:18 PM)[facility]annDRUG IEMCJS3251-10-97 02:18:00Negative *NA*(03/16/15 9:18 PM)[facility] JcmizzdYQEJGMARAG4367-73-82 02:18:00 Test Item Value Reference Range Interpretation Comments PTT (test code = PTT) 29.7 s 22.9-35.8 [facility]annPARATHYROID LKWBDVU4604-12-84 02:18:001.15[facility] PARATHYROID YPVBECY7338-22-69 02:18:001.12[facility]annURINE AND STOOL 2015-03-17 02:18:00Negative *NA*(03/16/15 9:18 PM)[facility] STOOL 2015-03-17 02:18:00Negative (03/16/15 9:18 PM)[facility] STOOL 2015-03-17 02:18:00Negative (03/16/15 9:18 PM)[facility] STOOL 2015-03-17 02:18:00Negative (03/16/15 9:18 PM)[facility] STOOL 2015-03-17 02:18:00<1[facility]annUR[facility] AND LHNPQ6734-10-42 02:18:007.0 [facility]UR[facility] AND LFEGJ8507-09-59 02:18:00Clear (03/16/15 9:18 PM) [facility] AND ZERIZ8238-69-84 02:18:001.009[facility]annUR[facility] AND FPNUV1790-34-06 02:18:00Light Yellow *NA*(03/16/15 9:18 PM)[facility] SKUZITVLHK0479-49-77 13:30:00 Test Item Value Reference Range Interpretation Comments PTT (test code = PTT) 36.1 s 22.9-35.8 [facility] FwogomuEWLSEZDDGR6522-33-69 13:30:00 Test Item Value Reference Range Interpretation Comments PT (test code = PT) 14.6 s 12.0-14.7 [facility] XqspcmyZSUUZBUPNN7637-72-44 13:30:001.13[facility]annTOXICOLOGY 2014-10-31 13:30:539220Ldcnrzme IyphnfwLXQOEEUQZC5698-85-33 13:30:0025.2[facility]annCHEM RHYTP3923-10-45 06:18:003.1[facility]annCHEM LZGJC7879-24-99 06:18:001.8[facility] QffvzziVSICKDEMQFDF5236-52-39 06:18:0014.1[facility] YPSQZLOAGIHP2944-52-68 06:18:38393Nenxcukh QratbrgIJYSSHNFQSQM2464-66-28 06:18:07889Jdckbxty LmtrzcdDOMIKTJROTHD6274-96-22 06:18:83138Etodzsfw [facility] IBYDXWGUTDQI4510-75-64 06:18:004.1[facility] YcccwsfDQFRIEDYQPLF7167-20-66 06:18:008.5[facility] ZteyajnDMNLBFRDPFRC5993-15-71 06:18:0025[facility] QJREQHGHGKSY1280-13-93 06:18:000.6[facility] ZviipvvVFDETKYFQZVU3018-27-68 06:18:0062[facility] XruzcoiMBXYPVZAFOAL1174-86-11 06:18:006[facility] VPILUQKVRM6789-85-17 06:18:000.1[facility] FjqxxugUICXSPQQUU0164-88-46 06:18:005.7 [facility] CzaecoeLVGLCVUBRU4670-36-89 06:18:005.0[facility]annHEMATOLOGY 2014-10-31 06:18:0031.1[facility] WnprennRDXNLWDAVX8212-00-69 06:18:005.7[facility] LdittrqWYYNTKREHU9675-08-91 06:18:0057.7[facility] XyqsaqgDEHEGASNUI8852-59-64 06:18:000.5[facility] VflhpcaISOSOQPOSY2973-75-09 06:18:000.6[facility] DJLXDNZTTM8603-68-82 06:18:000.5[facility] TchtfiwHCEOXZOXCA1492-12-39 06:18:003.1 [facility] UpllcxzSLGMFFFJZC7805-11-52 06:18:001.08[facility]annHEMATOLOGY 2014-10-31 06:18:00 Test Item Value Reference Range Interpretation Comments PTT (test code = PTT) 33.9 s 22.9-35.8 [facility] NnhrnxdJBZKVLFPBG8824-18-30 06:18:00 Test Item Value Reference Range Interpretation Comments PT (test code = PT) 14.1 s 12.0-14.7 [facility] SjofumnTISPFTTWFL6321-65-38 06:18:0010.0[facility]annHEMATOLOGY 2014-10-31 06:18:003.22[facility] GcvcwrbFKAKEIXQVD0009-22-00 06:18:0028.9[facility] FqtmgutDACWSNOVIL1660-80-49 06:18:009.7[facility] QdefsyhWZFHQEFTNM3414-10-61 06:18:0033.4[facility] CcqlndiBIXWTCQBSD5208-15-05 06:18:00 Test Item Value Reference Range Interpretation Comments MCH (test code = MCH) 30.0 pg 27.0-31.0 [facility] QlcecfpERNDRJSMYY8269-32-54 06:18:0089.8[facility]annHEMATOLOGY 2014-10-31 06:18:008.2[facility] ZkoswotWNBQWSHNEX1781-41-41 06:18:53772Kxgedlju AumfgbnZQVNWUHLXC6256-52-76 06:18:0016.4[facility] HermannPARATHYROID PROFILE 2014-10-31 06:18:001.08[facility]annPARATHYROID GVZARBW5014-82-20 06:18:00 1.05[facility]annCARDIAC ZUFDLMY6595-75-09 07:00:0070[facility]annCHEM XMMUB5409-76-99 07:00:003.2[facility]annCHEM DQWQP0576-19-32 07:00:001.8 [facility] PfnylxnCSEFUFTCGJFU1352-53-97 07:00:0010.6[facility] HermannELECTROLYTES 2014-10-30 07:00:0079[facility] RhkqxiuTEDOGNVKXPZS6717-62-01 07:00:008[facility] WrihwzjABRNSUFHFRGK0569-85-19 07:00:000.6[facility] KsgssnkHSXCPCCQWVDV3213-77-72 07:00:0027[facility] SfrwfmdQDMJXGWNAHMC8339-62-95 07:00:008.1[facility] DWELFGXMWMGT0190-08-68 07:00:003.6[facility] XibvvqyXIPBLNSVHFQI1324-65-12 07:00:08637Kyxmrdeq XxsurjkALGYBODPFIWO6538-06-08 07:00:85793Yjvevpnk [place] OLQLMTALRYZL4068-11-57 07:00:52195Gzcwyook RwdmaszEWRQCJUILL6154-02-84 07:00:00 0.4[facility] HohtwnbHCOGGASTEU2073-75-19 07:00:004.9[facility]annHEMATOLOGY 2014-10-30 07:00:000.6[facility] AfanltgPZKNDYXUHC2870-61-73 07:00:0049.4[facility] QfvyadeWPUQCHFBFT9484-06-17 07:00:005.8[facility] KofoqulWQLYXIQWMN5482-49-07 07:00:003.7[facility] VphhnjsSEXDOHCIVI2424-36-05 07:00:0041.4[facility] LCNYCCRCHM0200-19-46 07:00:000.4[facility] OwrddanPFGVVHCPIX0939-49-50 07:00:005.1 [facility] LnqpdciTQCPYKHAEK7057-60-28 07:00:00 Test Item Value Reference Range Interpretation Comments MCH (test code = MCH) 29.4 pg 27.0-31.0 [facility] JnjecgpQZJLJYTWNZ8827-99-26 07:00:0027.5[facility]annHEMATOLOGY 2014-10-30 07:00:0016.3[facility] VfvcdytWNCAWXYZIE6984-09-64 07:00:57032Kpqdgmbh EmmetohHKRRFZCAYD0035-77-99 07:00:008.4[facility] AnagguzNZYRTGHRQB1970-74-61 07:00:009.1[facility] MrqulvbIHIMBIKOIP6144-87-39 07:00:0033.0[facility] GCPKCCBCAT4731-80-70 07:00:003.09[facility] JpecyytBYVDLYUNGJ0828-02-27 07:00:00 11.8[facility] RvtvxnkEGZASFCDPV7303-32-11 07:00:0089.0[facility]annHEMATOLOGY 2014-10-30 07:00:00 Test Item Value Reference Range Interpretation Comments PT (test code = PT) 13.5 s 12.0-14.7 [facility] CeqcrjuBJZRUGIRVU5223-52-02 07:00:001.03[facility]annHEMATOLOGY 2014-10-30 07:00:00 Test Item Value Reference Range Interpretation Comments PTT (test code = PTT) 31.6 s 22.9-35.8 [facility]annPARATHYROID DRDUQJR3093-51-26 07:00:001.10[facility] PARATHYROID RPHFQNU3200-59-04 07:00:001.11[facility]annCARDIAC ENZYMES 2014-10-30 05:00:0049[facility]annCARDIAC YESIBQG3933-45-68 05:00:00<0.010 [facility]annCARDIAC QCDGHHB0688-40-79 05:00:000.02[facility]annHEMATOLOGY 2014-10-30 05:00:000.2[facility] YsfqnnaMYRKLGCBHP3901-72-62 05:00:000.3[facility] IbeiixeRPHDKVTLUK7736-98-96 05:00:000.4[facility] BspjjarNYXFCCTTAD7870-12-81 05:00:003.2[facility] VmnvggzLYUXGLAANP5269-57-66 05:00:002.3[facility] VZQUPMJKMC1902-48-23 05:00:004.8[facility] LtmybhlKGDAYPWVWA9915-83-79 05:00:003.1 [facility] GdlzmzzOKOCIPABZR5642-33-69 05:00:0053.2[facility]annHEMATOLOGY 2014-10-30 05:00:0038.5[facility] UqxvfarVFHTOKGYJE9275-75-67 05:00:0014.9[facility] BtbmdziSFBNEDMMDO4026-95-14 05:00:0032.8[facility] QjtrbcbQGNPWXGFWZ7899-31-13 05:00:00 Test Item Value Reference Range Interpretation Comments MCH (test code = MCH) 30.3 pg 27.0-31.0 [facility] ZrtwymgNIFJJNFMYW5042-79-07 05:00:0092.2[facility]annHEMATOLOGY 2014-10-30 05:00:0016.3[facility] LxwquwlGXXZWZDNEF7172-57-18 05:00:004.9[facility] ItiraazILQNWKODME2758-94-75 05:00:001.61[facility] IrdivchHQMGFMEZKL1036-55-68 05:00:006.0[facility] GourhhaHBRDYXXOSE5980-92-66 05:00:008.1[facility] AJBAFNGEDQ1826-02-72 05:00:0073[facility] HermannPARATHYROID SUTTYDB1168-91-83 05:00:000.63[facility]annPARATHYROID KRNOEBL8719-57-59 05:00:000.62[facility] HermannCARDIAC SWHZGNC2674-22-47 23:18:00<0.02[facility]annCARDIAC ENZYMES 2014-10-29 23:18:00<0.010[facility]annCARDIAC NQMWDVU9286-17-65 23:18:0083 [facility]annCARDIAC ONTOSWP6482-16-31 23:18:000.7[facility]annCARDIAC XWECDLB6435-70-19 23:18:000.6[facility] JftnxniPHFTMMMOBB4092-59-58 21:45:094164 [facility] PieymcxXFISAFBNUZ8774-79-66 21:45:0023.9[facility] HermannCHEM PANEL 2014-10-29 10:42:000.7[facility] HermannCHEM APYTK1631-03-92 07:00:001.8[facility]annCHEM VCGGG8371-13-76 07:00:002.8[facility] VldwwtrHKOQDTZBSPMA9897-40-97 07:00:0011.0[facility] ZljgbutTDRLWOQWDGEI4121-09-62 07:00:0010[facility] [place] WCTLLBPSAHBM2795-95-10 07:00:0083[facility] ParjxylAWQLLXIYSLOH4694-43-38 07:00:00 145[facility] PadgnimYRPAFPDRSZOQ8392-41-05 07:00:000.7[facility] DKLVIWVANEKV1022-10-09 07:00:41975Jzuolmht MgviqefLMMACZNNOILY0010-06-35 07:00:0024[facility] DmlhiboGENWVNDRDPEX1272-79-97 07:00:007.9[facility] YHLAKYGGYVEE6065-94-76 07:00:14956Nuuubkll MgbxsfmQNCHBZFJSLEV6746-82-00 07:00:004.0[facility] DgohklvNQVMVUDTDM2158-35-08 07:00:000.1[facility] WOMCKYLHEW6027-06-01 13:36:009.7[facility] HdrsfswFBXDVKWCND1173-53-65 11:00:00 Test Item Value Reference Range Interpretation Comments Pat Od Value (test code = Pat Od 0.046 1 Value) [facility] PfmcmphZEWEIMZQSR1813-35-08 11:00:00 Test Item Value Reference Range Interpretation Comments Pos CO Value (test code = Pos CO 0.392 1 Value) [facility] NeshcgbBHFNFXFZKB9058-52-69 11:00:00Negative (10/28/14 6:00 AM)[facility] HermannCHEM KCSVS6348-12-68 15:45:001.0[facility] OmjbmmhGGENPFXCGW1562-38-85 11:00:0024.4[facility] HermannTHYROID XHMNN6058-00-66 11:00:000.120[facility] HermannTHYROID QUTUD6141-77-58 11:00:000.96[facility]annCHEM YJMVV5628-66-60 07:00:001.6[facility] VnkveldBFZMOHNNOL9967-55-57 07:00:00Normal (10/27/14 2:00 AM) [facility] BlsqbtdLSRTVOXKUY6308-59-55 07:00:00Normal (10/27/14 2:00 AM)[facility] WdjvbwgRULDEVUYGY2932-69-57 01:49:0028[facility] VsiuewzZODZLQUYPX5287-56-78 23:06:00<0.1[facility] OcmnpwyTOHEYZIZHW1545-56-52 23:00:00<0.1[facility] HermannBLOOD BANK WVWKBDI0300-25-51 21:24:00Negative (10/26/14 4:24 PM)[facility]annCHEM ZLKXY4536-18-90 21:14:0070[facility]annCHEM WZGVT5439-74-63 21:14:000.15[facility] BknqsiuODWTPKGIDV8959-59-13 21:14:97703Ryalxezc [place] NYBXJVRNZN5252-01-38 21:14:000.21[facility] UhrelmyXICUCLQMXT4271-92-64 21:14:00 29.2[facility] HermannCARDIAC UJPMTAO4558-21-04 18:30:00<0.010[facility] [place] CARDIAC TDKRZRJ5451-03-47 18:30:000.02[facility] HermannCHEM IGZWT1657-38-44 18:30:000.14[facility] ZebwqpiBUUVRMHFDM5821-41-38 18:30:00Normal (10/26/14 1:30 PM)[facility] SgcarhoXWIGDYJGAX6646-91-06 18:30:00Normal (10/26/14 1:30 PM)[facility] DrmigiaLKIDWSADLQ0363-18-76 18:30:000.0[facility] XwgpcjlXJWRXJSMCZ4618-88-34 18:30:001.0[facility] HermannCHEM MEKVU3174-56-32 11:15:000.1[facility] HermannCHEM OGOSI1313-44-71 11:15:000.2[facility] HermannCHEM PSZHZ6526-75-80 11:15:000.1 [facility] HermannCHEM RIUAP3635-97-20 11:15:0011[facility]annCHEM PANEL 2014-10-26 11:15:47812Qlciedqp HermannCHEM XNSKB0653-14-02 11:15:002.9[facility] HermannCHEM TFVVP5681-88-06 11:15:003.2[facility] HermannCHEM ZLQMA4697-72-15 11:15:006.1[facility] HermannCHEM SOLAA8093-09-87 11:15:0023[facility]annCHEM INNHK1595-30-17 11:15:000.9[facility] GkudzmbMOEQFDBTQD3900-71-95 11:15:000.1 [facility]annCHEM TMTCF2868-08-70 09:01:000.05[facility] HermannDRUG SCREEN 2014-10-26 06:40:00Negative (10/26/14 1:40 [...] HermannURINE AND STOOL 2014-10-26 06:40:005[facility]annURINE AND ATLYT6583-21-96 06:40:0028[facility]annUR[facility] AND FXOOU2884-00-96 06:40:00Negative (10/26/14 1:40 AM)[facility] AND KRCLZ9549-42-86 06:40:00Negative (10/26/14 1:40 AM)[facility] IZNHD0043-18-75 06:40:00Negative (10/26/14 1:40 AM)[facility] AND NRHOQ4640-72-95 06:40:00<=1.0[facility]UR[facility] AND STOOL 2014-10-26 06:40:00Negative (10/26/14 1:40 AM)[facility]UR[facility] STOOL 2014-10-26 06:40:001.009[facility]annUR[facility] AND TLAFI9555-89-92 06:40:00Slight *ABN*(10/26/14 1:40 AM)[facility]UR[facility] AND BDTLK4022-38-80 06:40:00Yellow (10/26/14 1:40 AM)[facility]UR[facility] AND NEJVD9346-22-52 06:40:005.0[facility] QfycuffJOTEMBONIQ7832-90-68 02:45:00 Test Item Value Reference Range Interpretation Comments Angle (test code = Angle) 76.5 degrees 53.0-72.0 [facility] FvslqlzHFBQVGJNTC5077-97-41 02:45:00 Test Item Value Reference Range Interpretation Comments Max Amp (test code = Max Amp) 74.1 mm 50.0-70.0 [facility] SuyrmtuJGCWTMCPWR2746-27-34 02:45:0014.3[facility]annHEMATOLOGY 2014-10-26 02:45:00See Note 23(10/25/14 9:45 PM)[facility]annHEMATOLOGY 2014-10-26 02:45:003.4[facility] KtbtvjqWQICVZCETF6343-49-75 02:45:00 Test Item Value Reference Range Interpretation Comments K-time (test code = K-time) 1.0 min 1.0-3.0 [facility] RungrvrYTXLINVKMI3216-01-21 02:45:00 Test Item Value Reference Range Interpretation Comments R-time (test code = R-time) 5.1 min 5.0-10.0 [facility] LjbzrciKWEEKDSNNQ4776-47-36 02:45:000.9[facility] PfchkvyVVNODT5511-28-05 02:45:0035[facility] KhbuidkGORAOA7850-89-74 02:45:0060[facility] HermannLIPIDS 2014-10-26 02:45:002.76[facility] UxitnxdDLVZSQ2098-23-19 02:45:0054[facility] HfmqlnqIOXXLE0505-28-99 02:45:77027Eyvayvix QzvhualSJKVWE6215-69-16 02:45:48483 [facility]annSPECIAL KSAEXBVNE9835-26-46 02:45:005.7[facility] HermannCHEM IBUFM3829-14-83 09:44:003.7[facility] HermannCHEM OJHYP6056-17-80 09:44:001.7 [facility] LppjsnrXROAEFQDOWVO4535-80-44 09:44:0013.6[facility] HermannELECTROLYTES 2013-11-14 09:44:0087[facility] JvenubvQAPCENAULHGP3276-48-71 09:44:0023[facility] DjthkcrEGNZZQTITBAL7861-83-24 09:44:0070[facility] BzhrwkjJHRJAQOUSKAC2442-03-82 09:44:000.8[facility] PxkfmxeJLYOWZXSYOYG2019-17-34 09:44:68128Fxbarqab [place] SSWWIXWNOGEH1119-26-24 09:44:004.6[facility] PejfcfaBQJQODEUWDHK2809-84-13 09:44:23996Cjdsjuuc ZehvvqjARAFWUCDMNAU9888-41-32 09:44:0024[facility] FIBILZOGIZUO5037-77-73 09:44:008.8[facility] LwgskpuWFMWIHZZJZ5295-26-56 09:44:00 1.97[facility] DruratvXFWCBKFUMH9455-86-11 09:44:00 Test Item Value Reference Range Interpretation Comments PT (test code = PT) 22.1 s 12.0-14.7 [facility] FmhdmbzEQKJTK4696-94-82 09:44:0093[facility] HpsbrivDIWYLH6948-18-07 09:44:0066[facility] YresoqlSSIIQF1387-47-66 09:44:51639Knewskaf HermannLIPIDS 2013-11-14 09:44:91290Oaihoirb HomqawnXBJUAF2047-26-95 09:44:0038[facility] HjkgeduLPCPDT9674-02-28 09:44:005.18[facility] HermannDRUG YVALEH3849-62-80 01:09:21Positive *ABN*(11/13/2013 20:09:21 [place])[facility]annDRUG ZEQQAC6001-01-72 01:09:21See Note 5(11/13/2013 20:09:21 [place])[facility]annDRUG GLFRCT0125-42-10 01:09:21Negative *NA*(11/13/2013 20:09:21 [place])[facility]annDRUG SNRFGB2946-35-32 01:09:21Positive *ABN*(11/13/2013 20:09:21 [place])[facility]annDRUG GMYIPF3892-06-80 01:09:21Positive *ABN*(11/13/2013 20:09:21 [place])[facility]annDRUG RJAFST0801-89-20 01:09:21Negative *NA*(11/13/2013 20:09:21 [place]) [facility]annDRUG MIILVK0067-36-39 01:09:21Negative *NA*(11/13/2013 20:09:21 [place])[facility]annDRUG PXDFLO4868-29-66 01:09:21Negative *NA*(11/13/2013 20:09:21 [place])[facility]annDRUG ETLXVP8270-72-32 01:09:21Negative *NA*(11/13/2013 20:09:21 [place])[facility]annDRUG RCTQLN8589-31-35 01:09:21Negative *NA*(11/13/2013 20:09:21 [place]) [facility]UR[facility] AND IBDJS1324-93-56 01:09:002[facility]annURINE AND LEWMO0905-91-05 01:09:00Slight *ABN*(11/13/2013 20:09:00 [place]) [facility] AND JPPPV6807-07-38 01:09:00Yellow *NA*(11/13/2013 20:09:00 [place])[facility] AND LZPOV9363-26-63 01:09:006.5 [facility]UR[facility] AND SRVCX7089-57-12 01:09:001.024[facility]URINE AND GNQKJ4763-20-69 01:09:00Negative (11/13/2013 20:09:00 [place])[facility]UR[facility] AND XSJMW3086-87-64 01:09:00Negative *NA*(11/13/2013 20:09:00 [place])[facility] AND TEFBU7959-26-71 01:09:00Small *ABN*(11/13/2013 [facility]09:[facility] STOOL 2013-11-14 01:09:00Negative (11/13/2013 20:09:00 [place])[facility] AND AGSYA7351-93-52 01:09:003[facility]URINE AND STOOL 2013-11-14 01:09:001[facility]annURINE ESVH6128-78-29 01:09:00Negative (11/13/2013 20:09:00 [place])[facility]annCARDIAC HUELQTG4773-24-98 19:43:00<0.010[facility] HermannCARDIAC XJHRZVG2637-62-26 19:43:00<0.02 [facility]annCARDIAC HHDMCEQ8664-37-57 19:43:89399Euimvave HermannCARDIAC TYCEDVZ6534-48-94 19:43:000.5[facility]annCARDIAC HVNXJHV0389-78-66 19:43:00 0.5[facility] HermannCHEM NYSTG9483-82-05 19:43:000.1[facility] HermannCHEM PANEL 2013-11-13 19:43:000.2[facility] HermannCHEM DWVJK1574-53-66 19:43:000.1[facility] HermannCHEM PGXYD1379-87-79 19:43:0024[facility] HermannCHEM OHDKC3600-34-66 19:43:000.9[facility] HermannCHEM MWJHL7866-78-99 19:43:0040[facility] HermannCHEM RBCEM7876-64-18 19:43:006.4[facility] HermannCHEM MDBKE1092-86-14 19:43:003.0 [facility] HermannCHEM RPNAQ0130-37-24 19:43:003.4[facility]annCHEM PANEL 2013-11-13 19:43:41638Vthbhrpj HermannSPECIAL SRTHYXMTP9789-95-83 19:43:005.0 [facility] UxqywllRFVMMLMYYI6386-87-54 09:29:38612Ylftmwjs HermannHEMATOLOGY 2013-11-13 09:29:0017.1[facility] StelckaFVEOZAEGNY9907-92-77 09:29:007.0[facility] LvomwapJULGUYVDGN5255-55-47 09:29:0033.7[facility] NqqhdgnSKDHOHEWTA7266-34-64 09:29:00 Test Item Value Reference Range Interpretation Comments MCH (test code = MCH) 28.2 pg 27.0-31.0 [facility] AvhpbrgGBBJTVKOJD6818-31-65 09:29:004.35[facility]annHEMATOLOGY 2013-11-13 09:29:0011.4[facility] WkgnlymYGBYHZANUG1157-87-62 09:29:0083.7[facility] WrzbfhbMWORZPSPBH1653-47-94 09:29:0012.3[facility] TqeipbkGMUWWDCABU4427-86-29 09:29:0036.4[facility]annCARDIAC GFGWNMN5133-82-49 09:29:000.6[facility]annCARDIAC PBUPVNU2022-42-70 09:29:00<0.02[facility]annCARDIAC ENZYMES 2013-11-13 09:29:000.6[facility]annCARDIAC NZXGTXN4452-54-48 09:29:19688 [facility]annCHEM RFZYH2099-44-02 09:29:0075[facility]annCHEM PANEL 2013-11-13 09:29:0013.1[facility] HermannCHEM MMSVB2948-26-59 09:29:0026[facility] HermannCHEM XDHVU4332-01-28 09:29:89203Ynrandiy HermannCHEM RCFCM1579-96-46 09:29:008.6[facility] HermannCHEM KVHXA8785-19-87 09:29:000.9[facility] HermannCHEM CHOQJ2496-63-82 09:29:0012[facility] HermannCHEM UBTYV1613-86-01 09:29:004.1 [facility] HermannCHEM NPBTH5790-66-44 09:29:27210Jpvbrleu HermannCHEM PANEL 2013-11-13 09:29:0081[facility] DycnecbJCFUOAXYMK7225-23-04 09:29:004.1[facility] TnfkinxGSZOHMZQHZ6905-63-03 09:29:001.4[facility] ZyxmxrjFMOWCLBWJF8191-12-10 09:29:000.0[facility] CkroirlNQVEVYPZPD9734-98-81 09:29:004.7[facility] [place] EEZXHIDVNT6469-84-02 09:29:006.0[facility] DujqqygWZUGKGYCIJ5775-39-02 09:29:000.5 [facility] QxalocnHBWFCNNXHR6578-19-11 09:29:0041.0[facility] HermannHEMATOLOGY 2013-11-13 09:29:0053.5[facility] SqhqhoqLDWTYCLIUF8820-45-22 09:29:000.2[facility] QayktoxQMOGELXIAY8269-78-39 09:29:000.0[facility] NaauyevOCTTCQZAXB4931-33-94 09:29:00 Test Item Value Reference Range Interpretation Comments PT (test code = PT) 24.2 s 12.0-14.7 [facility] FgakhnwJPFVJDJQSI8234-02-82 09:29:002.22[facility]annHEMATOLOGY 2013-11-13 09:29:00 Test Item Value Reference Range Interpretation Comments PTT (test code = PTT) 39.1 s 22.9-35.8 [facility] FgpdwkxQBOLVJDNX7784-75-86 07:35:0015.8[facility] HermannCHEMISTRY 2013-05-12 07:35:87441Avlcxqln TnouiyuWUPVGBCJG3102-09-39 07:35:0023[facility] JwgjhxcRZCZFNNSH0794-84-02 07:35:04001Xdntpvxe VpshdbgDCZQDJOQY4570-65-73 07:35:000.3[facility] DvgyjbsNLPHRFNAC3756-42-74 07:35:007.7[facility] [place] SNMNWQXVM1115-99-73 07:35:005[facility] QfusjrsMWNOKYYXH5330-81-84 07:35:0072 [facility] HmydsvoGJZRBWXDZ1484-88-80 07:35:14688Ueqwwhdf HermannCHEMISTRY 2013-05-12 07:35:003.8[facility] XyzjavsPWNGXVEUWX7985-90-74 07:35:007.8[facility] RpkwdxhEZJGINFEPF7196-10-22 07:35:003.5[facility] JrpufhnYLAMGEFJIQ8177-30-86 07:35:000.9[facility] HarhyzoGKYPGTPBAP5040-08-40 07:35:000.3[facility] HPWMVCZVNI6480-29-12 07:35:000.1[facility] RvlknkpNBXXTMIEOG4502-22-11 07:35:007.4 [facility] StnyxudJXLRQACIXQ6365-74-48 07:35:000.7[facility] HermannHEMATOLOGY 2013-05-12 07:35:0027.8[facility] LdozhtnDPBOCRZVPM8546-88-74 07:35:002.7[facility] PflpijsIQKAWIBNFE3587-00-93 07:35:0061.4[facility] OypfhgyBEVZFDGIYD1423-78-44 07:35:0088.5[facility] QxctorkCJBRJRKXRP0265-99-06 07:35:0015.2[facility] [place] RJOJEECYRH5255-47-07 07:35:0032.5[facility] EifgluiZWZGMQMWCK7181-86-56 07:35:00 252[facility] CuuiafqEJZALTBJEX7532-76-66 07:35:007.7[facility] HermannHEMATOLOGY 2013-05-12 07:35:0012.8[facility] MdbeiqhORYAJFCDFL8570-61-86 07:35:003.82[facility] UiyfvtkXOPZTIBEAO6818-71-90 07:35:0011.0[facility] GmtyrsfCIHJAJPSBO0280-51-21 07:35:0033.8[facility] XiazfzxZUCPJOYBUI6587-93-68 07:35:00 Test Item Value Reference Range Interpretation Comments MCH (test code = MCH) 28.8 pg 27.0-31.0 [facility] ZKVQQWP2004-77-49 11:52:0089[facility] [place] LNSOJJOWX7512-66-72 07:00:00Negative (05/11/2013 02:00:00)[facility] [place] IOMDTASZF7978-84-75 07:00:00Negative (05/11/2013 02:00:00)[facility] [place] VAVMFNFXN5422-55-54 07:00:00Negative (05/11/2013 02:00:00)[facility] [place] LXMLDONOT4915-48-28 07:00:00Negative (05/11/2013 02:00:00)[facility] [place] RDIUNTFGB4979-21-51 07:00:00Positive *ABN*(05/11/2013 02:00:00)[facility] [place] VBITSCKSH5792-05-10 07:00:00See Note 12(05/11/2013 02:00:00)[facility] [place] ZNITRSGMH2779-23-33 07:00:00Negative (05/11/2013 02:00:00)[facility] BYIMNPTNW2785-20-97 07:00:00Negative (05/11/2013 02:00:00)[facility] [place] DFDYZRXWS3852-95-65 07:00:00Negative (05/11/2013 02:00:00)[facility] [place] PZMPFVVDJ4989-31-07 07:00:00Negative (05/11/2013 02:00:00)[facility] MEKZIGSEV8084-13-59 07:00:001.09[facility] GgsnrmoYEEBFSSWQ1133-73-09 07:00:001.07 [facility] QforjypBBZFOALIJ2699-45-25 07:00:002.0[facility] HermannCHEMISTRY 2013-05-11 07:00:002.6[facility] JzzhtmkTYPCCJDTQ0437-50-71 07:00:28624Xwguokyh ZlhdmzxNQUNZPNHT4489-70-38 07:00:008.0[facility] NdqxxawBRGPQGWUG1474-53-68 07:00:0017.7[facility] YycpjupBQFJURHJW8932-80-86 07:00:007[facility] [place] BQFLTRVEV8172-23-78 07:00:0059[facility] FqmmtrpEZKGAGLWA9502-36-52 07:00:000.6 [facility] SfajowsHVNIDVEHP5192-42-68 07:00:68080Fxxdcmca HermannCHEMISTRY 2013-05-11 07:00:003.7[facility] LvikirnNSDPZOHXY4776-87-46 07:00:22493Llkolnpg OypugygLBIQXJDVO7079-17-63 07:00:0021[facility] HcdczfgNQBAQIEXC2865-88-05 07:00:00See Note 13(05/11/2013 02:00:00)[facility] PfgsfbvXXXJNNUHRT9263-42-58 07:00:0017.2[facility] HxmbulfZFUKDNHSOZ1000-27-34 07:00:33216Zldzvppz [place] YTBHXSDUFD5089-16-30 07:00:008.7[facility] FivpbovJLVXPBAINQ5394-53-96 07:00:00 88.4[facility] TbmgaqyDWUQDELLOT9843-27-53 07:00:00 Test Item Value Reference Range Interpretation Comments MCH (test code = MCH) 29.4 pg 27.0-31.0 N [facility] PfhjkhxQQJNHGYSRF4240-46-14 07:00:0015.3[facility] HermannHEMATOLOGY 2013-05-11 07:00:0033.2[facility] XjgnpkbVTTWFGHWXV9928-51-17 07:00:003.75[facility] QbnmclcKJVCRNXXPW3324-13-46 07:00:0011.0[facility] KnhzfpcFVHNDDBMIS3013-30-73 07:00:0033.1[facility] LbnklvmWPYGKRAIBY7484-88-40 07:00:004.4[facility] FCPOIEHXTS2296-98-99 07:00:0077.7[facility] XafivcoOSGYLXPSSV4450-82-01 07:00:00 0.8[facility] XntdjhaKVMARYRQQY4756-63-84 07:00:0013.4[facility] HermannHEMATOLOGY 2013-05-11 07:00:002.7[facility] ZhtpzryKXMTKIVDWQ0568-41-28 07:00:000.8[facility] EjtzfvlCFLKZRSIBM9177-29-98 07:00:001.5[facility] TblnnndLTKQKNRLJI5682-39-49 07:00:0015.6[facility] FphgbjsBVDTDKNCGZ4235-38-03 07:00:000.1[facility] RYNUTVGQTV7262-70-01 07:00:000.3[facility] HermannBEDSIDE GLUCOSE TESTING 2013-05-11 04:53:0079[facility] WlymacnEROBGRRYWO4897-34-01 23:12:36944Tsyvoghw RmuvgvtTVEQGPHKDK6636-75-94 23:12:00Positive (05/10/2013 18:12:00)[facility] IzzubafWTFKQPYOUM4125-11-55 23:12:001.06[facility] BrqepfgZFBYFBAKNI1829-57-47 23:12:0070[facility] OhzliulJTWGFFZLHU4620-29-58 23:12:00>100 mm/hr *ABN*(05/10/2013 18:12:00)[facility] HzhavdfMAKSFJBYZJ8946-97-15 23:12:0035 [facility] TtwvaceNPENXBORQH3980-62-62 23:12:0068[facility] HermannIMMUNOLOGY 2013-05-10 23:12:001[facility] TrgespjCQCAMABTUK1470-41-66 23:12:001[facility] TkmpwrjCGPTNAGTVP3308-84-24 23:12:005.2[facility] IchuhaiBUNBDTYEJW5536-20-05 23:12:0040[facility] KtlqmuuEIAOEVATIM1116-46-48 23:12:65639Iclidlpi [place] DNNFJBZFOW5158-23-88 23:12:00Negative *NA*(05/10/2013 18:12:00)[facility] WXVVDSMPPH6143-64-00 23:12:00>190.0[facility] HermannBACTERIAL - SEROLOGY 2013-05-10 21:41:00Negative (05/10/2013 16:41:00)[facility] HermannMICRO MISC - JIZMUCJW6889-61-69 21:41:00Negative 1(05/10/2013 16:41:00)[facility] BEDSIDE GLUCOSE VSCFJZU5639-28-32 16:57:0096[facility] EejzbvfOYOWDGSAST2700-90-34 14:50:398[facility] GcteyrhLQPUWCUIAK0243-37-85 14:50:39Few /LPF *NA*(05/10/2013 09:50:39)[facility] MqwgftwHJNENUHKRT6808-65-43 14:50:39<1[facility] TRYKLDVSSH8660-65-90 14:50:39Few /LPF *NA*(05/10/2013 09:50:39)[facility] MQZSMVGBLZ9650-42-54 14:50:39<1[facility] NfmrylnTQQVMKNLRB4353-11-20 14:50:39 Negative (05/10/2013 09:50:39)[facility] EkwabvjSLOIVAITZX0518-46-96 14:50:39 Negative (05/10/2013 09:50:39)[facility] WtciuhgIQDVDKOYIK8948-20-87 14:50:39 Negative (05/10/2013 09:50:39)[facility] AafvgmtLUTYFVXWUR8723-87-81 14:50:39 Negative mg/dL *NA*(05/10/2013 09:50:39)[facility] FmqrkswCNRYACAMLP0403-27-99 14:50:39Negative *NA*(05/10/2013 09:50:39)[facility] JbtudgiPOEKIIQEYQ8498-47-93 14:50:391.006[facility] UuocxkyVVAPIUFRZR3738-14-17 14:50:39Clear (05/10/2013 09:50:39)[facility] KserdqgGYGDTUODTB7041-44-89 14:50:39Light Yellow *NA*(05/10/2013 09:50:39)[facility] IbkaoqkUKCRAKZVJG9946-49-74 14:50:39Negative mg/dL (05/10/2013 09:50:39)[facility] ItljtjbBHDNAJSUPC3916-22-16 14:50:397.5 [facility] AvogivjXWKPQTWOD9871-32-19 07:52:0087[facility] HermannCHEMISTRY 2013-05-10 07:52:56243Stjuofol CfksskgAWGFRDNVO7721-35-44 07:52:0014.6[facility] HimpfmgFUUOOZPOC5976-07-26 07:52:007.8[facility] BtqhtekZRTYIGHKE7127-80-33 07:52:92322Pvudboqt FldxwzsEWXZLWWBL1502-88-96 07:52:003.[facility] OYLIOGUYH3690-75-49 07:52:0024[facility] KngsifjXUEEFEOYG0620-26-92 07:52:000.8 [facility] GsarrwxVBGQMJVOC3728-57-48 07:52:007[facility] VtujeayCPOPMQLSH6666-65-08 07:52:0051[facility] DotqitfSCKJCGJDX2596-76-60 07:52:001.[facility] CYBEBXJZW6474-31-31 07:52:002.2[facility] MrfcdvwFCEOSXQPOR7777-75-44 07:52:00 Test Item Value Reference Range Interpretation Comments MCH (test code = MCH) 29.1 pg 27.0-31.0 N [facility] OuxpppjZBWNKPXING1205-31-83 07:52:0033.8[facility] HermannHEMATOLOGY 2013-05-10 07:52:0089.2[facility] GsfqngsWQQUVIFNZR1278-33-81 07:52:0011.0[facility] FwolpleMFVJTOWGOB8468-69-20 07:52:008.5[facility] KwsqgurAWYXJWEFFD6258-95-66 07:52:10270Vufodcxn CjydevyQKRIEPHVCX5012-08-90 07:52:0015.1[facility] WNDFVFLBIT9970-63-14 07:52:0032.6[facility] UgdwonrATBJZZVNPH5504-03-74 07:52:00 3.79[facility] RdhygshQCRTUTCLDX5494-25-97 07:52:0022.1[facility] HermannHEMATOLOGY 2013-05-10 07:52:000.1[facility] TdnkfbxJUSMPPQAJC6982-94-78 07:52:000.6[facility] PxxzcgcLOCJDQZRUS6891-64-30 07:52:000.2[facility] WltvqmmOXREJYKLSZ8811-66-13 07:52:0083.0[facility] VvabdpnXANXKLWBJR9078-45-08 07:52:002.9[facility] QLSHOWBNCY7631-51-59 07:52:0018.3[facility] HrlwvwmYUVUZRYLET2849-85-76 07:52:00 0.4[facility] TqswhecEWNJODRNFG5265-60-08 07:52:001.0[facility] HermannHEMATOLOGY 2013-05-10 07:52:0012.9[facility] YyzvubmWAFODRLZRJ5993-16-63 07:52:002.7[facility] AcakacuYLQUCVBJTW3556-78-48 19:56:0055[facility] DtmkeprMVKDXFUJZO9890-96-54 19:56:55446Isvhcbou StdoghpCMGEMMMRJJ2636-20-55 19:56:10982Qoebrzgr [place] SLZDAUFXSL8505-46-24 19:56:00Negative (05/09/2013 14:56:00)[facility] HVWKNCVLDS1986-78-77 19:56:00Negative (05/09/2013 14:56:00)[facility] EULGOQCFZT6613-26-84 19:56:00Negative (05/09/2013 14:56:00)[facility] EUJYBOEKOE6796-20-94 19:56:00>190.0 mg/L 15(05/09/2013 14:56:00)[facility] UylfzkwLRNBGHHOII2890-69-38 19:56:00Negative (05/09/2013 14:56:00)[facility] VyjqzkgSYMIDXFVYK9257-67-88 19:56:0034[facility] XiowdtrMVNYTXYQU9159-27-08 16:10:242.3[facility] PozhopsQXCKYNSBB1207-49-38 16:10:241.4[facility] QEPULYTZE4261-45-31 16:10:191.8[facility] KjzmvasVGVREPPGP9776-46-10 10:34:0071 [facility] NpdrmhwGGEOBTRCG0522-25-74 10:34:0036[facility] HermannCHEMISTRY 2013-05-09 10:34:86607Xwdtvyfv UsghnwjLQOSXUOZO3822-35-42 10:34:06362Smikpgaj TmuigbaKGUHITGSK2403-65-33 10:34:003.67[facility] AvjwwlsXUDWDTTSZ7367-75-59 10:34:004.9[facility] FlmrxynFCYOUHZOT8861-48-49 00:11:00Negative *NA*(05/08/2013 19:11:00)[facility] ZfissvkKOABKJXNG3672-03-46 00:11:00See Note 11(05/08/2013 19:11:00)[facility] QkpxkgbIBUMZNKRU5501-89-25 00:11:00Positive *ABN*(05/08/2013 19:11:00)[facility] HspjqzjRFWBRYYMN3229-55-67 00:11:00Negative *NA*(05/08/2013 19:11:00)[facility] IkbvznoQOCCZEXEG4385-39-67 00:11:00Negative *NA*(05/08/2013 19:11:00)[facility] NoifewdWWXZZGCVX5722-83-56 00:11:00Negative *NA*(05/08/2013 19:11:00)[facility] FjvvxodOYBUNFPNP6669-07-46 00:11:00Negative *NA*(05/08/2013 19:11:00)[facility] JocwqxfVOUHOLAVI3922-69-04 00:11:00Negative *NA*(05/08/2013 19:11:00)[facility] GrbzjroMTTKOAPZC2414-56-51 00:11:0054[facility]STRY 2013-05-09 00:11:005.8[facility] FvcqzxwSAXHQFIWC1682-80-92 00:11:000.2[facility] LegfvwtPOWVTMDGI5506-34-06 00:11:002.8[facility] JaefmzjCOKBYRBUM9080-37-68 00:11:0095[facility] DhdfyrmDKAOGTJZZ1025-16-73 00:11:0029[facility] SGPVMLCST6171-88-79 00:11:000.9[facility] ElxjgmgLHDZWSBIK0960-62-66 00:11:0015 [facility] JiajjvqMVNXEVAEM1866-42-15 00:11:003.0[facility] HermannURINALYSIS 2013-05-09 00:11:00Slight *ABN*(05/08/2013 19:11:00)[facility]ann[facility]YSIS 2013-05-09 00:11:001.013[facility] ZlaxqqnQMSTJIIZBA8711-97-34 00:11:00Small *ABN*(05/08/2013 19:11:00)[facility] AgavppzCFGSMGZEWC9583-07-54 00:11:00Negative (05/08/2013 19:11:00)[facility] DmdognhYSFORQWIIT6209-39-57 00:11:00Negative (05/08/2013 19:11:00)[facility] WpxufswSNNKFYREKD6939-37-89 00:11:005.0[facility] QqjhjqxNTBXXVECOY7029-23-76 00:11:0030 mg/dL *ABN*(05/08/2013 19:11:00)[facility] KasilveAYBEOWZMHU2879-98-62 00:11:00Negative mg/dL *NA*(05/08/2013 19:11:00) [facility] XmofgezOKGIMYWPTE4887-03-49 00:11:00Yellow *NA*(05/08/2013 19:11:00) [facility] JllpdtiBBPLMDBYXK3780-88-83 00:11:00Few /LPF *NA*(05/08/2013 19:11:00) [facility] OeycuspCUIDFTBCJG6817-11-58 00:11:001[facility]annURINALYSIS 2013-05-09 00:11:00Negative mg/dL *NA*(05/08/2013 19:11:00)[facility] GQOOLMWYYU3263-28-18 00:11:00Negative *NA*(05/08/2013 19:11:00)[facility] JMNOWPSFCP0282-41-63 00:11:00Few /LPF *NA*(05/08/2013 19:11:00)[facility] CGNTEXISCP3452-70-37 00:11:00Occasional /HPF *NA*(05/08/2013 19:11:00)[facility] HermannBEDSIDE GLUCOSE BDYDLWY0377-02-12 12:28:0087[facility] HermannCHEMISTRY 2012-07-21 08:53:89207Njvnjjvm AyxkloaGOLSCKDYL4061-81-92 08:53:0024[facility] OmyhobfEYTULBLAZ5621-60-63 08:53:91048Pqeqgprm JutflhoCWXRKMDYB8339-35-44 08:53:75429Rjuekovr QlgyyaqREDDOXECM7867-79-19 08:53:008.08[facility] KQDKJDQQY6347-20-10 08:53:003.2[facility] DifsulaEPWHDGMKC6369-79-71 08:53:001.9 [facility] IvfynqlBVZEHVYHH2253-10-37 08:53:0014.1[facility] HermannCHEMISTRY 2012-07-21 08:53:009[facility] VgltgdlKACEVCBAS5111-81-71 08:53:0077[facility] ZdngznrACOOUPRXA9210-96-91 08:53:36258Zybkccth AhsasbzCOFJDEEJX3863-48-95 08:53:14370Vawtfmex AhtcrlxXKDKQMFVQ5964-55-59 08:53:33521Qklegcxw [place] DDWTSOTYD9892-98-45 08:53:004.1[facility] YrcmjrwKIBQEKORM9006-36-13 08:53:000.7 [facility] WcevmsuJPYXCSIAB6021-89-71 08:53:0027[facility] HermannCHEMISTRY 2012-07-21 08:53:008.0[facility] DylbgioRXJKXMUIO0722-39-13 08:53:005.8[facility] ZizmcbdINNPAKEIWK6865-78-94 08:53:006.8[facility] AjynpyrEUERNHFAJO3127-29-78 08:53:13175Fyqiebuk VkiancpGCMRYBTTIK3444-66-97 08:53:0088.7[facility] ITLXGGIHVX4663-39-40 08:53:00 Test Item Value Reference Range Interpretation Comments MCH (test code = MCH) 29.4 pg 27.0-31.0 N [facility] UalpgysIVJESGEIBW2287-26-79 08:53:0033.1[facility] HermannHEMATOLOGY 2012-07-21 08:53:0015.0[facility] XhkxdwhRQTTEIQULT8998-24-68 08:53:0038.4[facility] FbnrmnfLOHRHCEJKM0013-91-04 08:53:004.34[facility] JuscawdNJIXBGHBJR0739-35-29 08:53:0012.7[facility] DossqnrSBKNZHEHPD1054-25-09 08:53:0011.7[facility] PZCHWWFOBC1561-99-04 08:53:000.5[facility] SqjdnwlWAJSCXTERO7012-17-30 08:53:005.9 [facility] NgcxymtNSAINHAXQT0192-35-56 08:53:006.0[facility] HermannHEMATOLOGY 2012-07-21 08:53:0041.5[facility] KwyvjmgCNZMDQIECC4138-01-99 08:53:001.9[facility] BdtfstcXLJCKVZZTX2955-46-29 08:53:0050.1[facility] FkpkylnQJKLOZMJSS2023-68-40 08:53:000.7[facility] SrheuojBGFBETINRX5973-96-18 08:53:004.8[facility] YHAFFQNNFR6189-59-53 08:53:000.2[facility] HghtqgvLVDSCLMOHL1541-52-75 08:53:000.1 [facility] LXLHRJH7257-50-47 02:50:21196Qggizugf [facility] PDWBYKQTLX3895-90-52 01:10:00Yellow *NA*(07/20/2012 19:10:00)[facility] WKJDRMQTJZ7284-26-77 01:10:0020 mg/dL *ABN*(07/20/2012 19:10:00)[facility] HHOHLXIRHO0553-27-26 01:10:006.5[facility] ZbjbrvkROKKUWWENT7790-47-95 01:10:00 Negative mg/dL *NA*(07/20/2012 19:10:00)[facility] UgaryxvFULAHZPLJO1971-25-09 01:10:001.020[facility] ZgegdlyLYHDMSKEPY3649-36-78 01:10:00Slight *ABN*(07/20/2012 19:10:00)[facility] UmqkaowSWUBGQJFLA6360-18-38 01:10:00Negative (07/20/2012 19:10:00)[facility] FynqflwIRHUJADVVO0858-70-93 01:10:00Trace *ABN*(07/20/2012 19:10:00)[facility] VdthahuWXAMLLBLPC5902-47-43 01:10:00Many /LPF *ABN*(07/20/2012 19:10:00)[facility] OwimfoyXJXSBZPBCG7127-80-80 01:10:00Small *ABN*(07/20/2012 19:10:00)[facility] RhcehajWECIMXLBLH3939-98-05 01:10:00Negative *NA*(07/20/2012 19:10:00)[facility] UzfckhfUSJFNPCMIV3196-08-17 01:10:00Occasional /HPF *NA*(07/20/2012 19:10:00)[facility] IieclkmWBTPEFWSSW4216-20-24 01:10:00Few /LPF *NA*(07/20/2012 19:10:00)[facility] AzxqpicVSQFMFHAKO7703-30-68 01:10:00Few /HPF *NA*(07/20/2012 19:10:00)[facility] KqvnfkoPROZNNKJEL9661-00-86 01:10:001 [facility] XyzqdtmVJKHZSRTOS3839-91-02 01:10:006[facility] HermannURINALYSIS 2012-07-21 01:10:001[facility] HermannBEDSIDE GLUCOSE LMCNGOC8595-55-61 12:05:0086 [facility] AuprywuNMMAFOSGG4968-72-03 08:50:0014.7[facility] HermannCHEMISTRY 2012-07-20 08:50:0088[facility] EpaixyxMJSWYJDNI2335-00-99 08:50:0077[facility] XrfuaheQUHYOFVNR4646-99-99 08:50:0013[facility] ExddepgTPQYRPKOC9210-75-19 08:50:000.8[facility] HpluzfyYABVZTJAC6345-69-38 08:50:70364Pgctlolc [facility] EWUFJJDIF4078-83-44 08:50:003.7[facility] TcjohclRHKIFXGJE1885-52-58 08:50:0097 [facility] UaydcjfRRPCZWPKL7759-15-97 08:50:0029[facility] HermannCHEMISTRY 2012-07-20 08:50:008.3[facility] QlgzhemEQCSCOIAQG3216-44-81 08:50:000.7[facility] KbttdyvPQQVCKOGPQ7402-53-81 08:50:004.3[facility] SfupvqmOSYUBZCRRX1396-53-08 08:50:006.9[facility] ArfgvfhGILHWPAIJD0859-05-70 08:50:000.8[facility] BVQAUPTTLH5110-23-30 08:50:001.2[facility] IlaonfzMTCNSCPNIM6482-45-43 08:50:000.1 [facility] YjfjzeaQXASXWAIEV9887-70-03 08:50:000.1[facility] HermannHEMATOLOGY 2012-07-20 08:50:005.6[facility] XtzxeucREUCFRJMBS9528-66-28 08:50:0035.7[facility] AtfgrksNVWTOOCUNG0289-56-42 08:50:0056.7[facility] FwoplqqEQVVOOKPDI2886-08-95 08:50:0088.3[facility] ZvqzoqrHWIEDQERTO7996-62-34 08:50:0041.1[facility] DIUZCPEAJX3721-64-95 08:50:0013.7[facility] BamywhiSYAQUNLXKE6328-27-77 08:50:00 4.66[facility] ZigsbtzAUUIWHZDKZ3079-08-32 08:50:0012.2[facility] HermannHEMATOLOGY 2012-07-20 08:50:006.8[facility] DpxjnikKNBVCVYVEU0112-64-25 08:50:85887Uejodelw YazmxygYQJVTYVAIY9671-00-84 08:50:0015.6[facility] GeyntkuCXPIKLJLMY0422-49-06 08:50:0033.3[facility] MtvsrhkFBPCIUZSYV7925-97-56 08:50:00 Test Item Value Reference Range Interpretation Comments MCH (test code = MCH) 29.4 pg 27.0-31.0 N [facility] HermannBLOOD BANK HFWWSDK7926-09-23 13:30:00Negative (07/19/2012 07:30:00)[facility] RrwgxjmTCQOKJWDH8611-10-45 13:30:0062[facility] HermannCHEMISTRY 2012-07-19 13:30:0067[facility] PvgsxqzXEZJQLROA5332-49-89 13:30:0030[facility] ZvqmwvoLDDPVWBHE0749-44-87 13:30:008.8[facility] HtvvearXHJPPSSCH7975-49-87 13:30:0012[facility] QlcfuvyVLVTNUOKH5824-15-53 13:30:001.0[facility] WBVRGEMVO4439-74-97 13:30:71830Cpwrjgma ZvwuvgmWTMPXJTYQ3356-95-19 13:30:004.1 [facility] CuztgfbVBBMGHGSX4745-16-03 13:30:0099[facility] HermannCHEMISTRY 2012-07-19 13:30:72164Agjnmvke DtskdewUYWWHDQTV3790-60-94 13:30:0013.1[facility] LwoswzxWIYZCEAYG9213-22-86 13:30:00<0.02[facility] RgtkosiOLZDEMBMTD0920-01-61 13:30:001+ *ABN*(07/19/2012 07:30:00)[facility] EbcthhtXKLSXHIFHE9127-77-20 13:30:000.0[facility] BioyumbYOGKGGIJIP0985-90-12 13:30:00Slight *ABN*(07/19/2012 07:30:00)[facility] LnuvdflCHNPHRDERU0442-67-39 13:30:00Slight (07/19/2012 07:30:00)[facility] XidjzyiUKIZXBTSHC9273-37-13 13:30:000.0[facility] CGQCXZHNHL1860-71-08 13:30:004.0[facility] FkvsnluUAMUQCDZBA8426-57-37 13:30:00 30.0[facility] XrvoidyUJXAUMXRGY3670-82-65 13:30:001.0[facility] HermannHEMATOLOGY 2012-07-19 13:30:005.4[facility] ZvmdjqnTMLMCLVVTK7518-83-65 13:30:0011.8[facility] GdvlhxnLJYIQCMKPZ8398-41-43 13:30:000.2[facility] UkdyszhBOSYJGCLOP2104-26-75 13:30:000.7[facility] VezmoinMBZMLYCFEE1245-25-54 13:30:0065.0[facility] WMFDNCQVEI7133-66-18 13:30:000.97[facility] VpuieceXRZKARQWIK1658-13-38 13:30:00 Test Item Value Reference Range Interpretation Comments PT (test code = PT) 13.1 s 12.0-14.7 N [facility] CenterXkofbzhZPPGODHGPH9309-05-96 13:30:004.1[facility]annHEMATOLOGY 2012-07-19 13:30:00 Test Item Value Reference Range Interpretation Comments ACT (TEG) (test code = ACT (TEG)) 113 s 86-118 N [facility] CenterMjyibxtGYPWRQOTTO2770-20-19 13:30:00 Test Item Value Reference Range Interpretation Comments Split Point (test code = Split Point) 0.6 min [facility]MjnrilgXUBMCZCDYN8059-72-56 13:30:00 Test Item Value Reference Range Interpretation Comments Angle (test code = Angle) 82 degrees 64-80 H [facility] CenterLbdetxmSAZEOHPFOR9175-56-32 13:30:00 Test Item Value Reference Range Interpretation Comments Max Amp (test code = Max Amp) 81 mm 52-71 H [facility] CenterMjrgfakKKNCZZMXSA7160-44-16 13:30:00 Test Item Value Reference Range Interpretation Comments K-time (test code = K-time) 0.8 min 0.6-2.3 N [facility] CenterBlvciocKTTICNCTMT5907-18-18 13:30:0020.9[facility]annHEMATOLOGY 2012-07-19 13:30:00 Test Item Value Reference Range Interpretation Comments R-time (test code = R-time) 0.7 min 0.4-0.7 N [facility] HospitalLwfmugtAPVGYWQEVG5001-80-81 13:30:00 Test Item Value Reference Range Interpretation Comments PTT (test code = PTT) 32.1 s 22.9-35.8 N [facility] GfomxufXCMVGZPEIB1368-90-59 13:30:0015.0[facility]annHEMATOLOGY 2012-07-19 13:30:005.06[facility] TlrprhfINUDXQJBAJ8645-41-85 13:30:0014.8[facility] OdobkhqQPLGILEQXX3010-03-41 13:30:0033.3[facility] RbpmvgdTPBVXMJZIU4826-86-40 13:30:0018.1[facility] IjwyisoJWYQYUMRWZ2688-13-68 13:30:0044.9[facility] OJEGNIQNTA6604-10-47 13:30:007.1[facility] OylaozsKCGEEGVRLK2307-65-90 13:30:00 Test Item Value Reference Range Interpretation Comments MCH (test code = MCH) 29.5 pg 27.0-31.0 N [facility] NnkbkqhNBOQFQQRRK9284-99-97 13:30:0088.8[facility]annHEMATOLOGY 2012-07-19 13:30:69681Mpkpagrd [facility]
[2022-01-05] MEDS ORDERED: IPRATROPIUM BROM 0.5MG/2.5ML ONE ×2 (07:39→08:00)
[2022-01-05] MEDS ORDERED: METHYLPREDNISOLONE 125 MG INJ ONE (07:39)
[2022-01-05] MEDS ORDERED: FUROSEMIDE 20 MG/ 2ML VIAL ONE (07:39)
[2022-01-05] MEDS ORDERED: ALBUTEROL 2.5 MG/3 ML NEB SOL ONE ×2 (07:39→08:00)
[2022-01-05] MEDS ORDERED: AZITHROMYCIN 500 MG INJ IVPB ONE (07:39)
[2022-01-05] MEDS ORDERED: NA CHLORIDE 0.9% 250 ML ONE (07:40)
[2022-01-05 08:23] LABS: Absolute Lymphocytes (CBC) 4.4 K/uL (0.7-4.9); Hematocrit 36.6 % (36.0-45.0); Lymphocytes % 27.9 % (15.3-44.8); RBC Red Blood Cell Count 4.25 M/uL (3.86-4.86)
[2022-01-05 08:36] LABS: ALT/SGPT 22 U/L (12-78); AST/SGOT 13 U/L (15-37); Albumin 2.9 g/dL (3.4-5.0); Alkaline Phosphatase 131 U/L (45-117); BUN Blood Urea Nitrogen 17 mg/dL (7-18); Bicarbonate 26 mmol/L (21-32); Bilirubin Total 0.1 mg/dL (0.2-1.0); Glomerular Filtration Rate 102 ml/min (=/>90); Glucose Level 127 mg/dL (74-106); NT PRO-BNP 266 pg/mL (<125); Potassium 4.5 mmol/L (3.5-5.1); Sodium Level 140 mmol/L (136-145); Troponin High Sensitivity 7.8 pg/mL (<58.9)
[2022-01-05 08:37] LABS: Bilirubin Direct < 0.1 mg/dL (0-0.2); Magnesium 1.9 mg/dL (1.8-2.4)
[2022-01-05] MEDS ORDERED: MORPHINE 4 MG/ML SYR ONE (09:30)
[2022-01-05] MEDS ORDERED: ONDANSETRON 4 MG/2 ML VIAL ONE (09:30)
--- NOTE | 2022-01-05 10:50 | RAD REPORT ---
EXAM DESCRIPTION: RAD - Chest Single View - 01/05/2022 8:27 am CLINICAL HISTORY: CONGESTION Chest pain. COMPARISON: Chest Single View dated 08/19/2021; Chest Single View dated 04/05/2021; Chest Single View d ated 03/02/2021; Chest Single View dated 12/11/2020 FINDINGS: Portable technique limits examination quality. Linear atelectasis is seen in the left lung base. Mild interstitial pulmonary edema is present. The h eart is normal in size. Sternotomy wires. IMPRESSION: Mild CHF.
--- NOTE | 2022-01-05 12:39 | ER ---
Nurse's Notes [facility] Name: Kathy Whyte Age: 56 yrs Sex: Female : 1965 Arrival Date: 01/05/2022 Time: 06:56 Bed 3 Private MD: Diagnosis: Chest pain, unspecified Presentation: 01/05 06:56 Chief complaint: EMS states: "She has been having difficulty breathing. Didn't sleep sm5 really well last night as a result of that.". 06:56 Method Of Arrival: EMS: [facility] sm5 07:15 Acuity: ARI 3 ss Historical: - Allergies: 07:52 Compazine; vg1 07:52 Demerol; vg1 07:52 Morphine; vg1 07:52 Neurontin; vg1 07:52 NSAIDS; vg1 07:52 Stadol; vg1 07:52 Toradol; vg1 - Home Meds: 07:52 triazolam 0.25 mg Oral tab 2 tabs once daily [Active]; topiramate 25 mg Oral CSpX 1 cap vg1 once daily [Active]; sertraline 100 mg Oral tab 1 tab once daily [Active]; Risperdal 1 mg Oral tab 1 tab 2 times per day [Active]; methocarbamol 750 mg Oral tab 1 tab every 4 hours [Active]; lisinopril 20 mg Oral tab [Active]; Eliquis Oral [Active]; carvedilol 12.5 mg Oral tab 1 tab 2 times per day [Active]; bupropion HCl 200 mg Oral TbER 1 tab 2 times per day [Active]; - PMHx: 07:52 Anxiety; Congestive heart failure; CVA; Deep vein thrombosis; Depression; High vg1 Cholesterol; Hypertension; Myocardial infarction; Seizures; Stoke; - Social history:: Patient/guardian denies using alcohol, street drugs, The patient lives with family, Smoking status: Patient denies any tobacco usage or history of. - Family history:: not pertinent. Screenin:20 Abuse screen: Denies threats or abuse. Nutritional screening: No deficits noted. vg1 Tuberculosis screening: No symptoms or risk factors identified. Fall Risk No fall in past 12 months (0 pts). No secondary diagnosis (0 pts). IV access (20 points). Ambulatory Aid- None/Bed Rest/Nurse Assist (0 pts). Gait- Normal/Bed Rest/Wheelchair (0 pts) Mental Status- Oriented to own ability (0 pts). Total Choi Fall Scale indicates No Risk (0-24 pts). Assessment: 07:20 General: Appears in no apparent distress. uncomfortable, Behavior is calm, cooperative. vg1 Pain: Complains of pain in chest Pain radiates to neck Pain currently is 10 out of 10 on a pain scale. Neuro: Ruiz Agitation-Sedation Scale (RASS): +1 Restless Level of Consciousness is awake, alert, obeys commands, Oriented to person, place, time, situation, Reports headache. Cardiovascular: Capillary refill < 3 seconds in bilateral toes Patient's skin is warm and dry. Respiratory: Airway is patent Respiratory effort is even, labored, Respiratory pattern is tachypnea Breath sounds with wheezes bilaterally. GI: Abdomen is round non-distended, Reports nausea. : No signs and/or symptoms were reported regarding the genitourinary system. EENT: No signs and/or symptoms were reported regarding the EENT system. Derm: Skin is intact, Skin is pink, warm \\T\\ dry. Musculoskeletal: Circulation, motion, and sensation intact. 08:20 Reassessment: Patient appears in no apparent distress at this time. No changes from vg1 previously documented assessment. Patient and/or family updated on plan of care and expected duration. Pain level reassessed. Patient is alert, oriented x 3, equal unlabored respirations, skin warm/dry/pink. 09:08 Reassessment: Purewick placed by Jovanna patient care technician; placed on high suction. vg1 10:19 Reassessment: Patient appears in no apparent distress at this time. No changes from vg1 previously documented assessment. Patient and/or family updated on plan of care and expected duration. Pain level reassessed. Patient is alert, oriented x 3, equal unlabored respirations, skin warm/dry/pink. 11:20 Reassessment: Patient appears in no apparent distress at this time. Patient and/or vg1 family updated on plan of care and expected duration. Pain level reassessed. Patient is alert, oriented x 3, equal unlabored respirations, skin warm/dry/pink. Pt states pain 7/10; provider notified. 12:30 Reassessment: Patient appears in no apparent distress at this time. No changes from vg1 previously documented assessment. Patient and/or family updated on plan of care and expected duration. Pain level reassessed. Patient is alert, oriented x 3, equal unlabored respirations, skin warm/dry/pink. 13:35 Reassessment: Patient appears in no apparent distress at this time. Patient and/or vg1 family updated on plan of care and expected duration. Pain level reassessed. Patient is alert, oriented x 3, equal unlabored respirations, skin warm/dry/pink. Vital Signs: 06:56 BP 133 / 82; Pulse 81; Resp 18; Pulse Ox 99% on R/A; sm5 08:06 BP 119 / 62; Pulse 86; Resp 20; Pulse Ox 100% on Nebulizer Mask; vg1 08:07 Temp 97.9(TE); Weight 86.18 kg; Height 5 ft. 3 in. (160.02 cm); vg1 09:00 BP 109 / 90; Pulse 90; Resp 28; Pulse Ox 100% on R/A; vg1 10:00 BP 104 / 55; Pulse 90; Resp 28; Pulse Ox 95% on R/A; vg1 11:30 BP 129 / 80; Pulse 86; Resp 25; Pulse Ox 98% on R/A; vg1 12:30 BP 121 / 73; Pulse 91; Resp 28; Pulse Ox 97% on R/A; vg1 13:30 BP 137 / 80; Pulse 98; Resp 26; Pulse Ox 95% on R/A; vg1 08:07 Body Mass Index 33.66 (86.18 kg, 160.02 cm) vg1 ED Course: 06:56 Patient arrived in ED. sm5 07:01 Lionel Rodrigez MD is Attending Physician. [facility] 07:02 Attending Physician role handed off by Lionel Rodrigez MD ma2 07:02 Cara West MD is Attending Physician. ma2 07:17 Jacquelyn Islas, RN is Primary Nurse. vg1 07:20 Patient has correct armband on for positive identification. Placed in gown. Bed in low vg1 position. Call light in reach. Side rails up X2. Client placed on continuous cardiac and pulse oximetry monitoring. NIBP monitoring applied. bus driver/monitor on. 07:53 EKG done, by ED staff, reviewed by Cara West MD. jw7 08:05 Missed attempt(s): 18 gauge in right antecubital area. VIA ultrasound guided . Bleeding ss controlled, band aid applied, catheter tip intact. 08:29 XRAY Chest (1 view) In Process Unspecified. EDMS 08:32 Triage completed. ss 08:55 Assisted provider with central line placement. Set up central line tray. Triple lumen vg1 line placed in right femoral. Line placed by Mike LAKHANI Placement verified by blood return, Dressed with Tegaderm, Blood was collected. Patient tolerated well. Patient \\T\\ family education about procedure, CLABSI prevention and S/S of infection? Yes. Was handwashing/sanitizing done immediately prior to procedure? Yes. Was patient positioned to in a way to prevent air embolism? Yes. Was procedure site sterilized? Yes, with Was the site allowed to dry? Yes. Was local anesthetic and/or sedation utilized? Yes. During the procedure, did the Practitioner(s) maintain a sterile field? Yes. Was blood aspirated from each lumen? Yes. 11:36 Per Pt request, [facility] transfer center was contacted to initiate transfer to [address] 12:51 [facility] transfer called back to conduct doc to doc report and offer bed assignment and [facility] administrative acceptance to their [facility]. Administered Medications: 07:40 Drug: Albuterol 2.5 mg Route: Inhalation; vg1 07:40 Drug: AtroVENT (ipratropium) Aerosol 0.5 mg Route: Inhalation; vg1 08:00 Drug: Albuterol 2.5 mg Route: Inhalation; vg1 08:00 Drug: AtroVENT (ipratropium) Aerosol 0.5 mg Route: Inhalation; vg1 09:00 Drug: Lasix (furosemide) 20 mg Route: IVP; Site: right femoral; vg1 10:21 Follow up: Response: No adverse reaction vg1 09:02 Drug: SOLU-Medrol (methylPrednisoLONE) 125 mg Route: IVP; Site: right femoral; vg1 10:21 Follow up: Response: No adverse reaction vg1 09:05 Drug: AZITHromycin 500 mg Route: IVPB; Infused Over: 1 hrs; Site: right femoral; vg1 10:20 Follow up: IV Status: Completed infusion; IV Intake: 250ml vg1 09:08 Drug: Albuterol 2.5 mg Route: Inhalation; vg1 10:21 Follow up: Response: No adverse reaction vg1 09:08 Drug: AtroVENT (ipratropium) Aerosol 0.5 mg Route: Inhalation; vg1 10:21 Follow up: Response: No adverse reaction vg1 09:25 Drug: Zofran (Ondansetron) 4 mg Route: IVP; Site: right femoral; vg1 10:21 Follow up: Response: No adverse reaction; Marked relief of symptoms vg1 09:27 Drug: morphine 4 mg {Note: RASS 1.} Route: IVP; Site: right femoral; vg1 10:21 Follow up: Response: No adverse reaction; Pain is decreased vg1 Intake: 10:17 IV: 250ml; Total: 250ml. vg1 10:20 IV: 250ml; Total: 500ml. vg1 Output: 10:17 Urine: 1200ml; Total: 1200ml. vg1 Outcome: 12:39 ER care complete, transfer ordered by . ma2 13:49 Patient left the ED. vg1 Signatures: Dispatcher [employer] EDMS Lionel Rordigez MD MD cha Martinez, Eric em1 Faustina White, Cara Rivera RN, MD MD ma2 Garcia, Victoria RN RN vg1 Nan Ellis RN RN 5 Jennifer Rodriges 7
--- NOTE | 2022-01-05 12:39 | EDPHYS ---
Physician Documentation [facility] [place] Name: Kathy Whyte Age: 56 yrs Sex: Female : 1965 Arrival Date: 01/05/2022 Time: 06:56 Bed 3 Private MD: ED Physician Cara West HPI: 01/05 07:10 This 56 yrs old Female presents to ER via EMS with complaints of Shortness Of ma2 Breath. 07:10 Onset: The symptoms/episode began/occurred gradually. Associated signs and symptoms: ma2 Pertinent negatives: productive cough, dizziness, fever, loss of consciousness, nausea. Severity of symptoms: At their worst the symptoms were moderate in the emergency department the symptoms are unchanged. The patient has experienced similar episodes in the past. Historical: - Allergies: 07:52 Compazine; vg1 07:52 Demerol; vg1 07:52 Morphine; vg1 07:52 Neurontin; vg1 07:52 NSAIDS; vg1 07:52 Stadol; vg1 07:52 Toradol; vg1 - Home Meds: 07:52 triazolam 0.25 mg Oral tab 2 tabs once daily [Active]; topiramate 25 mg Oral CSpX 1 cap vg1 once daily [Active]; sertraline 100 mg Oral tab 1 tab once daily [Active]; Risperdal 1 mg Oral tab 1 tab 2 times per day [Active]; methocarbamol 750 mg Oral tab 1 tab every 4 hours [Active]; lisinopril 20 mg Oral tab [Active]; Eliquis Oral [Active]; carvedilol 12.5 mg Oral tab 1 tab 2 times per day [Active]; bupropion HCl 200 mg Oral TbER 1 tab 2 times per day [Active]; - PMHx: 07:52 Anxiety; Congestive heart failure; CVA; Deep vein thrombosis; Depression; High vg1 Cholesterol; Hypertension; Myocardial infarction; Seizures; Stoke; - Social history:: Patient/guardian denies using alcohol, street drugs, The patient lives with family, Smoking status: Patient denies any tobacco usage or history of. - Family history:: not pertinent. ROS: 07:10 Constitutional: Negative for fever, chills, and weight loss. ma2 07:10 All other systems are negative. Exam: 07:10 Constitutional: This is a well developed, well nourished patient who is awake, alert, ma2 and in no acute distress. Head/Face: Normocephalic, atraumatic. Eyes: Pupils equal round and reactive to light, extra-ocular motions intact. Lids and lashes normal. Conjunctiva and sclera are non-icteric and not injected. Cornea within normal limits. Periorbital areas with no swelling, redness, or edema. ENT: Nares patent. No nasal discharge, no septal abnormalities noted. Tympanic membranes are normal and external auditory canals are clear. Oropharynx with no redness, swelling, or masses, exudates, or evidence of obstruction, uvula midline. Mucous membranes moist. Neck: Trachea midline, no thyromegaly or masses palpated, and no cervical lymphadenopathy. Supple, full range of motion without nuchal rigidity, or vertebral point tenderness. No Meningismus. Chest/axilla: Normal chest wall appearance and motion. Nontender with no deformity. No lesions are appreciated. Cardiovascular: Regular rate and rhythm with a normal S1 and S2. No gallops, murmurs, or rubs. Normal PMI, no JVD. No pulse deficits. Respiratory: expiratory wheeze bilat.. otherwise lungs have equal breath sounds bilaterally, clear to auscultation and percussion. No rales, noted. there is mild increased work of breathing, no retractions or nasal flaring. Abdomen/GI: Soft, non-tender, with normal bowel sounds. No distension or tympany. No guarding or rebound. No evidence of tenderness throughout. Back: No spinal tenderness. No costovertebral tenderness. Full range of motion. Skin: Warm, dry with normal turgor. Normal color with no rashes, no lesions, and no evidence of cellulitis. MS/ Extremity: Pulses equal, no cyanosis. Neurovascular intact. Full, normal range of motion. Neuro: Awake and alert, GCS 15, oriented to person, place, time, and situation. Cranial nerves II-XII grossly intact. Motor strength 5/5 in all extremities. Sensory grossly intact. Cerebellar exam normal. Normal gait. Vital Signs: 06:56 BP 133 / 82; Pulse 81; Resp 18; Pulse Ox 99% on R/A; sm5 08:06 BP 119 / 62; Pulse 86; Resp 20; Pulse Ox 100% on Nebulizer Mask; vg1 08:07 Temp 97.9(TE); Weight 86.18 kg; Height 5 ft. 3 in. (160.02 cm); vg1 09:00 BP 109 / 90; Pulse 90; Resp 28; Pulse Ox 100% on R/A; vg1 10:00 BP 104 / 55; Pulse 90; Resp 28; Pulse Ox 95% on R/A; vg1 11:30 BP 129 / 80; Pulse 86; Resp 25; Pulse Ox 98% on R/A; vg1 12:30 BP 121 / 73; Pulse 91; Resp 28; Pulse Ox 97% on R/A; vg1 13:30 BP 137 / 80; Pulse 98; Resp 26; Pulse Ox 95% on R/A; vg1 08:07 Body Mass Index 33.66 (86.18 kg, 160.02 cm) vg1 Procedures: 09:20 Central Line: the site was prepped with Betadine, in sterile fashion, a triple lumen jr8 catheter was inserted, in the right femoral vein, in 1 attempts. placement was verified, by blood return, the site was dressed with Tegaderm, using sterile technique, the patient tolerated the procedure, well. MDM: 07:03 Patient medically screened. [facility] 07:11 Differential diagnosis: Anemia Bronchitis pneumonia, pulmonary edema, reactive airway ri2 disease. Data reviewed: vital signs, nurses notes. 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 I offered to admit our hospitalist which we have service for her she needs to be admitted for a telemetry bed however patient preferred to transfer and so we will go ahead and initiate transfer none emergently based on patient preference . 12:37 ED course: dr. Bach accepted the patient . [facility] 01/05 07:09 Order name: Basic Metabolic Panel; Complete Time: 09:57 [facility] 01/05 07:09 Order name: CBC with Diff; Complete Time: 09:57 [facility] 01/05 07:09 Order name: LFT's; Complete Time: 09:57 [facility] 01/05 07:09 Order name: Magnesium; Complete Time: 09:57 [facility] 01/05 07:09 Order name: NT PRO-BNP; Complete Time: 09:57 [facility] 01/05 07:09 Order name: Troponin HS; Complete Time: 09:57 01/05 07:09 Order name: XRAY Chest (1 view); Complete Time: 11:06 01/05 07:09 Order name: Blood Culture Adult (2) 01/05 09:59 Order name: D-Dimer; Complete Time: 11:06 01/05 07:09 Order name: EKG; Complete Time: 07:09 01/05 07:09 Order name: Cardiac monitoring; Complete Time: 07:45 01/05 07:09 Order name: EKG - Nurse/Tech; Complete Time: 07:45 01/05 07:09 Order name: IV Saline Lock; Complete Time: 09:11 01/05 07:09 Order name: Labs collected and sent; Complete Time: 09:11 01/05 07:09 Order name: O2 Per Protocol; Complete Time: 07:17 01/05 07:09 Order name: O2 Sat Monitoring; Complete Time: 07:17 ma Administered Medications: 07:40 Drug: Albuterol 2.5 mg Route: Inhalation; vg1 07:40 Drug: AtroVENT (ipratropium) Aerosol 0.5 mg Route: Inhalation; vg1 08:00 Drug: Albuterol 2.5 mg Route: Inhalation; vg1 08:00 Drug: AtroVENT (ipratropium) Aerosol 0.5 mg Route: Inhalation; vg1 09:00 Drug: Lasix (furosemide) 20 mg Route: IVP; Site: right femoral; vg1 10:21 Follow up: Response: No adverse reaction vg1 09:02 Drug: SOLU-Medrol (methylPrednisoLONE) 125 mg Route: IVP; Site: right femoral; vg1 10:21 Follow up: Response: No adverse reaction vg1 09:05 Drug: AZITHromycin 500 mg Route: IVPB; Infused Over: 1 hrs; Site: right femoral; vg1 10:20 Follow up: IV Status: Completed infusion; IV Intake: 250ml vg1 09:08 Drug: Albuterol 2.5 mg Route: Inhalation; vg1 10:21 Follow up: Response: No adverse reaction vg1 09:08 Drug: AtroVENT (ipratropium) Aerosol 0.5 mg Route: Inhalation; vg1 10:21 Follow up: Response: No adverse reaction vg1 09:25 Drug: Zofran (Ondansetron) 4 mg Route: IVP; Site: right femoral; vg1 10:21 Follow up: Response: No adverse reaction; Marked relief of symptoms vg1 09:27 Drug: morphine 4 mg {Note: RASS 1.} Route: IVP; Site: right femoral; vg1 10:21 Follow up: Response: No adverse reaction; Pain is decreased vg1 Disposition: 12:39 Co-signature as Attending Physician, Cara West MD. ma2 Disposition Summary: 01/05/22 12:39 Transfer Ordered Transfer Location: [facility] ma2 Reason: Higher level of care ma2 Condition: Stable ma2 Problem: new ma2 Symptoms: are unchanged ma2 Accepting Physician: dr. Bach(01/05/22 13:49) vg1 Diagnosis - Chest pain, unspecified ma2 Forms: - Medication Reconciliation Form ma2 - SBAR form ma2 Signatures: Dispatcher [employer] EDMike Gann, KAR PA jr8 Cara West MD MD ma2 aJcquelyn Islas RN RN vg1 Corrections: (The following items were deleted from the chart) 13:49 12:39 dr. Bach ma2 vg1
[2022-01-05 13:56] VITALS: TEMP 97.9
[2022-01-05 14:03] VITALS: BP 137/80; O2SAT 95
--- NOTE | 2022-01-07 11:30 | EKG ---
Test Date: 2022-01-05 Test Time: 07:38:38 Rn Telephone Triage: [facility] MEASUREMENT RESULTS: Intervals: Rate: 77 MT: 160 QRSD: 142 QT: 414 QTc: 468 [place]: P: 60 MT: 160 QRS: 27 T: 46 INTERPRETIVE STATEMENTS: Normal sinus rhythm Right bundle branch block Abnormal ECG Compared to ECG 08/19/2021 17:37:57 Ventricular premature complex(es) no longer present Atrial abnormality no longer present Myocardial infarct finding no longer present T-wave abnormality no longer present Possible ischemia no longer present Electronically Signed On 01-07-22 11:23:56 CDT by Bora Soto
== END 2022-01-05 13:49 | disposition short-term general hospital (02) ==
LOC: ER 06:51
PROC: 06HM33Z Insertion of Infusion Device into Right Femoral Vein, Percutaneous Approach (ICD-10-PCS; principal; 2022-01-05)
DX: R07.9 Chest pain, unspecified (principal); R06.02 Shortness of breath; I50.9 Heart failure, unspecified; I10 Essential (primary) hypertension; I25.2 Old myocardial infarction; F41.9 Anxiety disorder, unspecified; F32.A Depression, unspecified; Z79.01 Long term (current) use of anticoagulants; Z86.73 Personal history of transient ischemic attack (TIA), and cerebral infarction without residual deficits; Z88.5 Allergy status to narcotic agent; Z88.6 Allergy status to analgesic agent
CPT/HCPCS: 96365; 93005; 87040 ×2; 85025; 80048; 36415; 83735; 85379; 80076; 84484; 83880; 71045; 96375; 99285; 36556; J1940; J0456; J7050; J2930; J2405